=== PATIENT | female | born 1990 | race Hispanic/Latino ===

== ENCOUNTER 2018-01-12 11:50 | Emergency (ER) | payer SELFPAY ==
[2018-01-12] MEDS ORDERED: KETOROLAC 30 MG/ML INJ ONE (12:40)
[2018-01-12 13:09] LABS: Urine Bacteria 20-50 /HPF (<20); Urine Culture Reflex Order REFLEXED; Urine RBC <5 /HPF (NONE SEEN)
[2018-01-12 13:25] LABS: Urine Blood 2+ (NEG); Urine Glucose 2+ (NEG); Urine Protein 2+ (NEG); Urine pH 5.5 (5.0-7.0)
--- NOTE | 2018-01-12 14:33 | EDPHYS ---
Physician Documentation [facility] Name: Stacy Islas Age: 27 yrs Sex: Female : 1990 Arrival Date: 01/12/2018 Time: 11:52 Bed 20 Private MD: ED Physician Jerry Santos HPI: 01/12 14:29 This 27 yrs old Female presents to ER via Ambulatory with complaints of gs Abdominal Pain. 14:29 The patient presents with pelvic pain. Onset: The symptoms/episode began/occurred gs suddenly, today. Modifying factors: The symptoms are alleviated by nothing, the symptoms are aggravated by nothing. Associated signs and symptoms: Pertinent negatives: vaginal bleeding, vaginal discharge. Associated signs and symptoms: Pertinent negatives: constipation. Severity of symptoms: At their worst the symptoms were moderate, in the emergency department the symptoms are unchanged. The patient has not experienced similar symptoms in the past. 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 - Social history:: Smoking status: Patient/guardian denies using tobacco. - Ebola Screening: : No symptoms or risks identified at this time. ROS: 14:29 All other systems are negative. gs Exam: 14:29 Head/Face: Normocephalic, atraumatic. Eyes: Pupils equal round and reactive to light, gs extra-ocular motions intact. Lids and lashes normal. Conjunctiva and sclera are non-icteric and not injected. Cornea within normal limits. Periorbital areas with no swelling, redness, or edema. ENT: Nares patent. No nasal discharge, no septal abnormalities noted. Tympanic membranes are normal and external auditory canals are clear. Oropharynx with no redness, swelling, or masses, exudates, or evidence of obstruction, uvula midline. Mucous membranes moist. Neck: Trachea midline, no thyromegaly or masses palpated, and no cervical lymphadenopathy. Supple, full range of motion without nuchal rigidity, or vertebral point tenderness. No Meningismus. Chest/axilla: Normal chest wall appearance and motion. Nontender with no deformity. No lesions are appreciated. Cardiovascular: Regular rate and rhythm with a normal S1 and S2. No gallops, murmurs, or rubs. Normal PMI, no JVD. No pulse deficits. Respiratory: Lungs have equal breath sounds bilaterally, clear to auscultation and percussion. No rales, rhonchi or wheezes noted. No increased work of breathing, no retractions or nasal flaring. Back: No spinal tenderness. No costovertebral tenderness. Full range of motion. Skin: Warm, dry with normal turgor. Normal color with no rashes, no lesions, and no evidence of cellulitis. MS/ Extremity: Pulses equal, no cyanosis. Neurovascular intact. Full, normal range of motion. Neuro: Awake and alert, GCS 15, oriented to person, place, time, and situation. Cranial nerves II-XII grossly intact. Motor strength 5/5 in all extremities. Sensory grossly intact. Cerebellar exam normal. Normal gait. 14:29 Constitutional: The patient appears alert, awake. 14:29 Abdomen/GI: Palpation: mild abdominal tenderness, in the suprapubic area, right lower quadrant and left lower quadrant, rebound tenderness, is not appreciated. Vital Signs: 12:02 BP 118 / 70; Pulse 80; Resp 20; Temp 97.6; Pulse Ox 100% ; Weight 117.93 kg; Height 5 sv ft. 3 in. (160.02 cm); Pain 8/10; 14:01 BP 115 / 65; Pulse 79; Resp 16; Pulse Ox 100% ; bp 12:02 Body Mass Index 46.06 (117.93 kg, 160.02 cm) sv MDM: 12:22 Patient medically screened. gs 14:29 Differential diagnosis: urinary tract infection. Data reviewed: vital signs, nurses gs notes. Response to treatment: the patient's symptoms have markedly improved after treatment, and as a result, I will discharge patient. 01/12 12:25 Order name: Urine Microscopic Only; Complete Time: 13:28 gs 01/12 13:10 Order name: Urine Dipstick--Ancillary (enter results); Complete Time: 13:28 eb 01/12 13:10 Order name: Urine --Ancillary (enter results); Complete Time: 13:28 eb 01/12 13:11 Order name: Urine Culture EDND 01/12 14:35 Order name: Glucose, Ancillary Testing [facility] 01/12 12:25 Order name: Urine Test (obtain specimen); Complete Time: 12:42 01/12 12:25 Order name: Urine Dipstick-Ancillary (obtain specimen); Complete Time: 12:42 01/12 13:29 Order name: Finger Stick; Complete Time: 14:01 Administered Medications: 12:35 Drug: TORadol 30 mg Route: IM; Site: right vastus lateralis; bp 15:10 Follow up: Response: Pain is decreased bp Point of Care Testing: Blood Glucose: 14:01 Blood Glucose: 271 mg/dL; bp Ranges: Critical Glucose Levels:Adult <50 mg/dl or >400 mg/dl <40 mg/dl or >180 mg/dl Disposition: 01/12/18 14:32 Discharged to Home. Impression: Cystitis. - Condition is Stable. - Discharge Instructions: Urinary Tract Infection, Adult. - Prescriptions for Keflex 500 mg Oral Capsule - take 1 capsule by ORAL route every 12 hours for 10 days; 20 capsule. - Medication Reconciliation Form, Thank You Letter, Antibiotic Education, Prescription Opioid Use form. - Follow up: Private Physician; When: 2 - 3 days; Reason: Re-evaluation by your physician. Signatures: Dispatcher [employer] [facility] Radha Wagner RN RN Jerry Santos MD MD Dilan Abdullahi RN RN bp Corrections: (The following items were deleted from the chart) 15:13 14:32 01/12/2018 14:32 Discharged to Home. Impression: Cystitis. Condition is Stable. bp Forms are Medication Reconciliation Form, Thank You Letter, Antibiotic Education, Prescription Opioid Use. Follow up: Private Physician; When: 2 - 3 days; Reason: Re-evaluation by your physician.
--- NOTE | 2018-01-12 14:33 | ER ---
Nurse's Notes [facility] Name: Stacy Islas Age: 27 yrs Sex: Female : 1990 Arrival Date: 01/12/2018 Time: 11:52 Bed 20 Private MD: Diagnosis: Cystitis Presentation: 01/12 12:01 Presenting complaint: Patient states: lower abd pain started today, denies n/v/d. sv Transition of care: patient was not received from another setting of care. Onset of symptoms was January 12, 2018. Care prior to arrival: None. 12:01 Method Of Arrival: Ambulatory sv 12:01 Acuity: VENTURA 3 sv 15:12 Risk Assessment: Do you want to hurt yourself or someone else? Patient reports no bp desire to harm self or others. Initial Sepsis Screen: Does the patient meet any 2 criteria? No. Patient's initial sepsis screen is negative. Does the patient have a suspected source of infection? No. Patient's initial sepsis screen is negative. Triage Assessment: 12:02 General: Appears uncomfortable, obese, Behavior is calm, cooperative, appropriate for sv age. Pain: Complains of pain in suprapubic area, right lower quadrant and left lower quadrant Pain currently is 8 out of 10 on a pain scale. Pain began this morning. Neuro: Level of Consciousness is awake, alert, obeys commands, Oriented to person, place, time, situation, Moves all extremities. Full function Gait is steady. Respiratory: Respiratory effort is even, unlabored, Respiratory pattern is regular, symmetrical. GI: Reports lower abdominal pain, Patient currently denies diarrhea, nausea, vomiting. 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 - Social history:: Smoking status: Patient/guardian denies using tobacco. - Ebola Screening: : No symptoms or risks identified at this time. Screenin:08 Abuse screen: Denies threats or abuse. Denies injuries from another. Nutritional bp screening: No deficits noted. Tuberculosis screening: No symptoms or risk factors identified. Fall Risk None identified. Assessment: 12:07 General: SEE TRIAGE NOTE. bp 14:00 GI: Bowel sounds present X 4 quads. Abd is soft X 4 quads. bp 14:02 Reassessment: ALL CURRENT ORDERS COMPLETED, VS STABLE. DISPO PENDING. bp 15:11 Reassessment: PT D/C HOME AMBULATORY, DX WITH CYSTITIS. bp Vital Signs: 12:02 BP 118 / 70; Pulse 80; Resp 20; Temp 97.6; Pulse Ox 100% ; Weight 117.93 kg; Height 5 sv ft. 3 in. (160.02 cm); Pain 8/10; 14:01 BP 115 / 65; Pulse 79; Resp 16; Pulse Ox 100% ; bp 12:02 Body Mass Index 46.06 (117.93 kg, 160.02 cm) sv ED Course: 11:52 Patient arrived in ED. tw3 12:01 Triage completed. sv 12:02 Arm band placed on. sv 12:04 Jerry Santos MD is Attending Physician. 12:07 Dilan Abdullahi, RN is Primary Nurse. bp 12:08 Patient has correct armband on for positive identification. Bed in low position. Call bp light in reach. Side rails up X2. 14:01 Urine Culture Sent. bp 15:11 No provider procedures requiring assistance completed. Patient did not have IV access bp during this emergency room visit. Administered Medications: 12:35 Drug: TORadol 30 mg Route: IM; Site: right vastus lateralis; bp 15:10 Follow up: Response: Pain is decreased bp Point of Care Testing: Blood Glucose: 14:01 Blood Glucose: 271 mg/dL; bp Ranges: Outcome: 14:32 Discharge ordered by . gs 15:12 Discharged to home ambulatory. bp 15:12 Condition: stable 15:12 Discharge instructions given to patient, Instructed on discharge instructions, follow up and referral plans. medication usage, Demonstrated understanding of instructions, follow-up care, medications, Prescriptions given X 1. 15:13 Patient left the ED. bp Signatures: Radha Wagner, RN RN sv Jerome, Maxine tw3 Jerry Santos MD MD gs Peltier, Brian, RN RN bp
[2018-01-12 15:18] VITALS: TEMP 97.6; O2SAT 100
[2018-01-12 15:19] VITALS: BP 115/65
== END 2018-01-12 15:13 | disposition home or self-care (01) ==
LOC: ER 11:50
DX: N30.90 Cystitis, unspecified without hematuria (principal); E11.9 Type 2 diabetes mellitus without complications
CPT/HCPCS: 81003; 81015; 81025; 82962; 87077; 87086; 87088; 87186; 96372; 99283

== ENCOUNTER 2018-04-09 17:17 | Inpatient (IN) | payer SELFPAY ==
--- OUTSIDE RECORDS SUMMARY | 2018-04-09 17:19 | XMS REPORT ---
:1990 Author Organization [employer] Care Team Providers Name Role Phone Roche, Na Provider Role Unavailable Allergies, Adverse Reactions, Alerts Substance Reaction Event Type N.K.D.A. Info Not Available Non Drug Allergy Problems Problem Type Condition Code Onset Dates Condition Status Assessment Burn T30.0 Active Problem Hyperglycemia R73.9 Active Assessment Uncontrolled type 2 diabetes E11.65 Active mellitus without complication, without long-term current use of insulin Assessment Hyperlipidemia E78.5 Active Problem Morbid (severe) obesity due to E66.01 Active excess calories Problem Body mass index (BMI) of 40.0-44.9 Z68.41 Active in adult Problem Abnormal menstrual periods N92.6 Active Problem Hyperlipidemia E78.5 Active Problem Allergic rhinitis J30.9 Active Problem Uncontrolled type 2 diabetes E11.65 Active mellitus without complication, without long-term current use of insulin Problem Family planning education, guidance, Z30.09 Active and counseling Medications Medication Code Code Instructions Start End Status Dosage System Date Date Lancets Super NDC 0 n/s finger stick May one Thin once 2017 Lisinopril ND 69460187136 20 MG Orally Active 1 tablet Once a day [place] ND 29619429110 3-0.02 MG Orally Active 1 tablet Once a day Glucometer NDC 0 n/s n/s use as May Active one directed 2017 Alcohol Prep NDC 0 topical twice May Active as directed Pads daily 2017 Metformin HCl NDC 52236270198 500 MG Orally Active 1 tablet Twice a day with meals blood glucose NDC 0 n/s finger stick May Active one test strip once a day 2017 Results No Known Results Summary Purpose [employer] Submission
--- OUTSIDE RECORDS SUMMARY | 2018-04-09 17:19 | XMS REPORT ---
:1990 [facility] Address [address] [place] [address] Dr. Krishna [address] [place] [id number] Care Team Providers Name Role Phone Unavailable Unavailable Unavailable Problems This patient has no known problems. Allergies, Adverse Reactions, Alerts This patient has no known allergies or adverse reactions. Medications This patient has no known medications.
--- OUTSIDE RECORDS SUMMARY | 2018-04-09 17:19 | XMS REPORT ---
:1990 Author Organization [employer] Care Team Providers Name Role Phone Jake Romero Provider Role Unavailable Allergies No Known Allergies Problems Problem Type Condition Code Onset Dates Condition Status Problem Hyperglycemia R73.9 Active Problem Morbid (severe) obesity due to E66.01 Active excess calories Problem Body mass index (BMI) of 40.0-44.9 Z68.41 Active in adult Problem Abnormal menstrual periods N92.6 Active Problem Hyperlipidemia E78.5 Active Problem Allergic rhinitis J30.9 Active Problem Uncontrolled type 2 diabetes E11.65 Active mellitus without complication, without long-term current use of insulin Problem Family planning education, guidance, Z30.09 Active and counseling Medications No Known Medications Results No Known Results Summary Purpose [employer] Submission
--- OUTSIDE RECORDS SUMMARY | 2018-04-09 17:19 | XMS REPORT ---
:1990 Author Organization [employer] Care Team Providers Name Role Phone Roche, Na Provider Role Unavailable Allergies No Known Allergies [...] Medications Results No Known Results Summary Purpose [employer] Submission
[2018-04-09] MEDS ORDERED: NA CHLORIDE 0.9% 1,000 ML ONE (18:39)
[2018-04-09 19:09] LABS: Absolute Lymphocytes (CBC) 0.7 K/uL (0.7-4.9); Absolute Monocytes 0.6 K/uL (0.1-1.3); Absolute Neutrophil 15.6 K/uL (1.8-8.0); Basophils % 0.3 % (0-1.3); Hematocrit 36.4 % (36.0-45.0); Lymphocytes % 4.1 % (15.3-44.8); MPV 8.9 fL (7.6-11.3); Monocytes % 3.5 % (3.3-12.3); RBC Red Blood Cell Count 5.04 M/uL (3.86-4.86)
[2018-04-09 19:11] LABS: ALT/SGPT 23 U/L (12-78); AST/SGOT 16 U/L (15-37); Albumin 3.1 g/dL (3.4-5.0); Alkaline Phosphatase 131 U/L (45-117); BUN Blood Urea Nitrogen 6 mg/dL (7-18); Bicarbonate 24 mmol/L (21-32); Bilirubin Direct 0.3 mg/dL (0-0.2); Glucose Level 310 mg/dL (74-106); Lipase 73 U/L (73-393); Potassium 3.8 mmol/L (3.5-5.1); Protein, Total 8.5 g/dL (6.4-8.2); Sodium Level 135 mmol/L (136-145)
[2018-04-09 19:30] LABS: HCG, Quantitative < 1 mIU/mL (1-3)
--- NOTE | 2018-04-09 20:05 | RAD REPORT ---
EXAM DESCRIPTION: CTAbdomen Pelvis W Contrast - 04/09/2018 7:46 pm CLINICAL HISTORY: Abdominal pain. ABD PAIN COMPARISON: CT ABD PELVIS W CONTRAST dated 01/18/2009 TECHNIQUE: Biphasic CT imaging of the abdomen and pelvis was performed with 100 ml non-ionic IV cont rast. All CT scans are performed using dose optimization technique as appropriate and may include automated exposure control or mA/KV adjustment according to patient size. FINDINGS: The lung bases are clear. Mild fatty liver is present. The spleen, pancreas, adrenal glands and kidneys are within normal limit s. Moderate free fluid is seen in the abdomen and pelvis. Prominent bilateral cystic lesions are seen in volving both ovaries, on the left a 6.4 x 5.2 cm septated cystic lesion or 2 abutting cystic lesions is present. On the right a somewhat irregular irregularly-shaped cystic lesion is present measuring 4 .2 x 1.7 cm. The appendix appears prominent in size proximally measuring 10-11 mm. Free fluid is seen in the right lower quadrant, however a great deal of inflammatory findings typical of appendicitis a re not identified. No evidence of significant lymphadenopathy. No suspicious bony findings. IMPRESSION: Moderate free fluid is seen in the abdomen and pelvis with cystic bilateral ovarian lesi ons present. Recent right-sided ovarian cyst rupture is a possibility. The appendix is also prominent in size in the right lower quadrant measuring 10-11 mm. Acute appendic itis cannot be completely ruled out although this is considered less likely. Correlation with physica l exam findings and laboratory studies is recommended. If clinically needed, a follow-up CT study wit h IV and oral contrast could be performed.
[2018-04-09 21:31] LABS: Blood Morphology Comment NOTED (NOT SEEN); Platelet Estimate INCR; Urine White Blood Cell Casts OK
[2018-04-09] MEDS ORDERED: ONDANSETRON 4 MG/2 ML VIAL ONE (21:54)
[2018-04-09] MEDS ORDERED: MORPHINE 4 MG/ML SYR ONE (21:54)
[2018-04-09] MEDS ORDERED: MAGNE/ALUM HYDROXD 30 ML UCUP ONE (22:36)
[2018-04-09] MEDS ORDERED: LIDOCAINE VISCOUS 2% SOLN 15 ML UDC ONE (22:36)
--- NOTE | 2018-04-09 22:42 | EDPHYS ---
Physician Documentation [facility] Name: Stacy Islas Age: 27 yrs Sex: Female : 1990 Arrival Date: 04/09/2018 Time: 17:21 Bed 24 Private MD: None, None ED Physician Rashad Cabrera HPI: 04/09 20:58 This 27 yrs old Female presents to ER via Ambulatory with complaints of nh Abdominal Pain, Breathing Difficulty. 20:58 The patient presents with abdominal pain abdominal distention. nh 22:38 Onset: The symptoms/episode began/occurred this morning. The symptoms do not radiate. nh Associated signs and symptoms: Pertinent positives: nausea and vomiting. The symptoms are described as sharp. Modifying factors: The symptoms are alleviated by nothing, the symptoms are aggravated by nothing. Severity of pain: At its worst the pain was severe. The patient has not experienced similar symptoms in the past. The patient has not recently seen a physician. 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 - Social history:: Smoking status: Patient/guardian denies using tobacco, Patient/guardian denies using alcohol. - Ebola Screening: : Patient negative for fever greater than or equal to 101.5 degrees Fahrenheit, and additional compatible Ebola Virus Disease symptoms Patient denies exposure to infectious person Patient denies travel to an Ebola-affected area in the 21 days before illness onset. ROS: 22:38 Constitutional: Negative for fever, chills, and weight loss, Eyes: Negative for injury, nh pain, redness, and discharge, ENT: Negative for injury, pain, and discharge, Neck: Negative for injury, pain, and swelling, Cardiovascular: Negative for chest pain, palpitations, and edema, Respiratory: Negative for shortness of breath, cough, wheezing, and pleuritic chest pain, Back: Negative for injury and pain, : Negative for injury, bleeding, discharge, and swelling, MS/Extremity: Negative for injury and deformity, Skin: Negative for injury, rash, and discoloration, Neuro: Negative for headache, weakness, numbness, tingling, and seizure, Psych: Negative for depression, anxiety, suicide ideation, homicidal ideation, and hallucinations, Allergy/Immunology: Negative for hives, rash, and allergies, Endocrine: Negative for neck swelling, polydipsia, polyuria, polyphagia, and marked weight changes, Hematologic/Lymphatic: Negative for swollen nodes, abnormal bleeding, and unusual bruising. 22:38 Abdomen/GI: Positive for abdominal pain, nausea and vomiting. Exam: 22:38 Constitutional: This is a well developed, well nourished patient who is awake, alert, nh and in no acute distress. Head/Face: Normocephalic, atraumatic. Eyes: Pupils equal round and reactive to light, extra-ocular motions intact. Lids and lashes normal. Conjunctiva and sclera are non-icteric and not injected. Cornea within normal limits. Periorbital areas with no swelling, redness, or edema. ENT: Nares patent. No nasal discharge, no septal abnormalities noted. Tympanic membranes are normal and external auditory canals are clear. Oropharynx with no redness, swelling, or masses, exudates, or evidence of obstruction, uvula midline. Mucous membranes moist. Neck: Trachea midline, no thyromegaly or masses palpated, and no cervical lymphadenopathy. Supple, full range of motion without nuchal rigidity, or vertebral point tenderness. No Meningismus. Chest/axilla: Normal chest wall appearance and motion. Nontender with no deformity. No lesions are appreciated. Cardiovascular: Regular rate and rhythm with a normal S1 and S2. No gallops, murmurs, or rubs. Normal PMI, no JVD. No pulse deficits. Respiratory: Lungs have equal breath sounds bilaterally, clear to auscultation and percussion. No rales, rhonchi or wheezes noted. No increased work of breathing, no retractions or nasal flaring. Back: No spinal tenderness. No costovertebral tenderness. Full range of motion. Skin: Warm, dry with normal turgor. Normal color with no rashes, no lesions, and no evidence of cellulitis. MS/ Extremity: Pulses equal, no cyanosis. Neurovascular intact. Full, normal range of motion. Neuro: Awake and alert, GCS 15, oriented to person, place, time, and situation. Cranial nerves II-XII grossly intact. Motor strength 5/5 in all extremities. Sensory grossly intact. Cerebellar exam normal. Normal gait. Psych: Awake, alert, with orientation to person, place and time. Behavior, mood, and affect are within normal limits. 22:38 Abdomen/GI: Inspection: abdomen appears normal, Bowel sounds: normal, Palpation: moderate abdominal tenderness, in all quadrants. Vital Signs: 17:29 BP 110 / 67; Pulse 105; Resp 20; Temp 100.7(O); Pulse Ox 100% on R/A; Weight 106.59 kg; hj Height 5 ft. 3 in. (160.02 cm); Pain 10/10; 19:41 BP 106 / 86; Pulse 76; Resp 18; Pulse Ox 100% on R/A; tl3 21:03 BP 101 / 64; Pulse 103; Resp 18; Pulse Ox 99% on R/A; tl3 22:31 BP 101 / 66; Pulse 114; Resp 18; Pulse Ox 100% on R/A; tl3 23:55 BP 114 / 61; Pulse 103; Resp 18; Temp 97.7(O); Pulse Ox 100% on R/A; Pain 2/10; mg2 17:29 Body Mass Index 41.63 (106.59 kg, 160.02 cm) hj MDM: 17:35 Patient medically screened. pr 22:38 Data reviewed: vital signs, nurses notes, lab test result(s), radiologic studies, I nh have discussed the patient's presentation/case with the attending Emergency Department Physician; and as a result, I will admit patient. Counseling: I had a detailed discussion with the patient and/or guardian regarding: the historical points, exam findings, and any diagnostic results supporting the discharge/admit diagnosis, lab results, radiology results, the need for further work-up and treatment in the hospital. Physician consultation: Osmany Dawson MD was called at 22:40, was contacted at 22:40, regarding admission, and will see patient. 04/09 17:45 Order name: Basic Metabolic Panel; Complete Time: 19:33 pr 04/09 17:45 Order name: CBC with Diff; Complete Time: 22:30 pr 04/09 17:45 Order name: Creatinine for Radiology; Complete Time: 19:33 pr 04/09 17:45 Order name: Hepatic Function; Complete Time: 19:33 pr 04/09 17:45 Order name: Lipase; Complete Time: 19:33 pr 04/09 17:45 Order name: HCG-Quantitative; Complete Time: 19:33 pr 04/09 17:45 Order name: CT Abd/Pelvis - W/Contrast; Complete Time: 20:25 pr 04/09 20:38 Order name: US Transvaginal Study (Probe) pr 04/09 21:31 Order name: CBC Smear Scan; Complete Time: 22:30 EDGA 04/09 23:00 Order name: Chest Pa And Lat (2 Views) XRAY pr 04/09 23:29 Order name: CBC with Automated Diff EDMS 04/09 23:30 Order name: CBC with Automated Diff EDMS 04/09 23:30 Order name: Comprehensive Metabolic Panel EDGA 04/09 23:30 Order name: Comprehensive Metabolic Panel EDGA 04/09 17:45 Order name: IV Saline Lock; Complete Time: 19:09 pr 04/09 17:45 Order name: Labs collected and sent; Complete Time: 19:09 pr 04/09 23:29 Order name: CONS Pharmacy Consult EDGA 04/09 23:29 Order name: NPO EDMS Administered Medications: 18:42 Drug: NS 0.9% 1000 ml Route: IV; Rate: 1 bolus; Site: right antecubital; Delivery: tl3 Primary tubing; 18:50 Follow up: IV Status: Completed infusion; IV Intake: 1000ml tl3 21:47 Drug: morphine 4 mg Route: IVP; Infused Over: 2 mins; Site: right antecubital; tl3 22:30 Follow up: Response: No change in condition tl3 21:47 Drug: Zofran 4 mg Route: IVP; Infused Over: 2 mins; Site: right antecubital; tl3 22:29 Follow up: Response: No adverse reaction tl3 22:30 Drug: GI Cocktail without - (Maalox Suspension 30 ml, Lidocaine Liquid 2 % 15 tl3 ml) Route: PO; 04/10 00:20 Follow up: Response: No adverse reaction; Marked relief of symptoms [facility] 04/09 23:06 Drug: LevaQUIN 750 mg Volume: 150 ml; Route: IVPB; Infused Over: 90 mins; Site: right tl3 antecubital; Delivery: Primary tubing; 04/10 00:20 Follow up: Response: No adverse reaction; IV Status: Infusion continued upon admission mg2 04/09 23:06 Drug: Flagyl 500 mg Volume: 100 ml; Route: IVPB; Rate: 200 ml/hr; Infused Over: 30 tl3 mins; Site: right antecubital; 04/10 00:20 Follow up: Response: No adverse reaction; IV Status: Completed infusion mg2 00:15 Drug: Insulin Regular Human 10 units {Co-Signature: jd3 (Dillon Wright RN).} Route: mg2 Sub-Q; Site: right upper arm; 00:19 Follow up: Response: No adverse reaction; patient admitted to the floor mg2 Point of Care Testing: Blood Glucose: 00:10 Blood Glucose: 355 mg/dL; jp3 Ranges: Critical Glucose Levels:Adult <50 mg/dl or >400 mg/dl <40 mg/dl or >180 mg/dl Disposition: 04/09/18 22:41 Hospitalization ordered by Osmany Dawson for Observation. Preliminary diagnosis are Abdominal and pelvic pain, Diabetes mellitus due to underlying condition. - Bed requested for Telemetry/MedSurg (observation). - Status is Observation. mg2 - Condition is Stable. - Problem is new. - Symptoms are unchanged. UTI on Admission? No Addendum: 04/14/2018 11:29 Co-signature as Attending Physician, Rashad Cabrera MD I agree with the assessment and k dr plan of care. Signatures: Dispatcher [employer] EDGA Eloisa Florez RN RN Rashad Cabrera MD MD [facility] Ynes Kendrick, FRYER OPERATOR FRYER OPERATOR pr Alexander Barrera RN RN Shannan Archibald RN RN tl3 David Ruiz RN RN mg2 Dillon Wright RN jd3 Corrections: (The following items were deleted from the chart) 04/09 23:38 22:41 Hospitalization Ordered by Osmany Dawson MD for Observation. Preliminary mw diagnosis is Abdominal and pelvic pain; Diabetes mellitus due to underlying condition. Bed requested for Telemetry/MedSurg (observation). Status is Observation. Condition is Stable. Problem is new. Symptoms are unchanged. UTI on Admission? No. pr 04/10 00:22 04/09 23:38 04/09/2018 22:41 Hospitalization Ordered by Osmany Dawson MD for mg2 Observation. Preliminary diagnosis is Abdominal and pelvic pain; Diabetes mellitus due to underlying condition. Bed requested for Telemetry/MedSurg (observation). Status is Observation. Condition is Stable. Problem is new. Symptoms are unchanged. UTI on Admission? No. mw
--- NOTE | 2018-04-09 22:42 | ER ---
Nurse's Notes [facility] Name: Stacy Islas Age: 27 yrs Sex: Female : 1990 Arrival Date: 04/09/2018 Time: 17:21 Bed 24 Private MD: None, None Diagnosis: Abdominal and pelvic pain;Diabetes mellitus due to underlying condition Presentation: 04/09 17:26 Presenting complaint: Patient states: i have a lot of abd pain that started today; hj reports constipation; last BM 3 days ago; reports nausea and vomiting; reports chills;. Transition of care: patient was not received from another setting of care. Onset of symptoms was April 09, 2018. Risk Assessment: Do you want to hurt yourself or someone else? Patient reports no desire to harm self or others. Initial Sepsis Screen: Does the patient meet any 2 criteria? No. Patient's initial sepsis screen is negative. Does the patient have a suspected source of infection? No. Patient's initial sepsis screen is negative. Care prior to arrival: None. 17:26 Method Of Arrival: Ambulatory 17:26 Acuity: VENTURA 3 Triage Assessment: 17:28 General: Appears in no apparent distress. uncomfortable, Behavior is calm, cooperative, hj appropriate for age. Pain: Complains of pain in abdomen. GI: Reports constipation, nausea, vomiting. 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 - Social history:: Smoking status: Patient/guardian denies using tobacco, Patient/guardian denies using alcohol. - Ebola Screening: : Patient negative for fever greater than or equal to 101.5 degrees Fahrenheit, and additional compatible Ebola Virus Disease symptoms Patient denies exposure to infectious person Patient denies travel to an Ebola-affected area in the 21 days before illness onset. Screenin:28 Abuse screen: Denies threats or abuse. Denies injuries from another. Nutritional hj screening: No deficits noted. Tuberculosis screening: No symptoms or risk factors identified. Fall Risk None identified. Assessment: 17:29 GI: Bowel sounds hj 18:40 General: Appears distressed, uncomfortable, well groomed, well developed, well tl3 nourished, Behavior is calm, cooperative, appropriate for age. Pain: Complains of pain in abdomen. Neuro: Level of Consciousness is awake, alert, obeys commands, Oriented to person, place, time, situation, Appropriate for age. Cardiovascular: Patient's skin is warm and dry. Respiratory: Airway is patent Respiratory effort is even, unlabored, Respiratory pattern is regular, symmetrical. Respiratory: Reports cough that is dry, hacking. : No deficits noted. EENT: Reports nasal congestion. Derm: No signs and/or symptoms reported regarding the dermatologic system. Musculoskeletal: No signs and/or symptoms reported regarding the musculoskeletal system. 19:41 Reassessment: No changes from previously documented assessment. Patient and/or family tl3 updated on plan of care and expected duration. Pain level reassessed. Patient is alert, oriented x 3, equal unlabored respirations, skin warm/dry/pink. pt transported to CT. 21:03 Reassessment: ultrasound at bedside. tl3 21:03 Reassessment: Patient appears in no apparent distress at this time. No changes from tl3 previously documented assessment. Patient and/or family updated on plan of care and expected duration. Pain level reassessed. Patient is alert, oriented x 3, equal unlabored respirations, skin warm/dry/pink. 22:31 Reassessment: Patient appears in no apparent distress at this time. No changes from tl3 previously documented assessment. Patient and/or family updated on plan of care and expected duration. Pain level reassessed. Patient is alert, oriented x 3, equal unlabored respirations, skin warm/dry/pink. 23:19 Reassessment: No changes from previously documented assessment. Patient and/or family tl3 updated on plan of care and expected duration. Pain level reassessed. Patient is alert, oriented x 3, equal unlabored respirations, skin warm/dry/pink. pt to xray due to complaints of pain with deep breathing. Vital Signs: 17:29 BP 110 / 67; Pulse 105; Resp 20; Temp 100.7(O); Pulse Ox 100% on R/A; Weight 106.59 kg; hj Height 5 ft. 3 in. (160.02 cm); Pain 10/10; 19:41 BP 106 / 86; Pulse 76; Resp 18; Pulse Ox 100% on R/A; tl3 21:03 BP 101 / 64; Pulse 103; Resp 18; Pulse Ox 99% on R/A; tl3 22:31 BP 101 / 66; Pulse 114; Resp 18; Pulse Ox 100% on R/A; tl3 23:55 BP 114 / 61; Pulse 103; Resp 18; Temp 97.7(O); Pulse Ox 100% on R/A; Pain 2/10; mg2 17:29 Body Mass Index 41.63 (106.59 kg, 160.02 cm) hj ED Course: 17:21 Patient arrived in ED. mr 17:22 None, None is Private Physician. mr 17:27 Triage completed. hj 17:29 Arm band placed on right wrist. hj 17:29 Patient has correct armband on for positive identification. Placed in gown. Bed in low hj position. Call light in reach. Side rails up X 1. Adult w/ patient. 17:35 Ynes Kendrick FNP is PHCP. nh 17:35 Rashad Cabrera MD is Attending Physician. nh 17:46 Shannan Archibald, JEFF is Primary Nurse. tl3 18:40 No provider procedures requiring assistance completed. Initial lab(s) drawn, by nv, tl3 sent to lab. Inserted saline lock: 20 gauge in right antecubital area, using aseptic technique. Blood collected. 18:57 Radiology exam delayed due to lab results not completed at this time. (BUN/Creatinine) nj test not completed at this time. 19:[address] via wheelchair. nj 19:46 CT completed. Patient tolerated procedure well. Patient moved back from CT. nj 19:47 CT Abd/Pelvis - W/Contrast In Process Unspecified. EDMS 21:08 US Transvaginal Study (Probe) In Process Unspecified. EDMS 21:11 Ultrasound completed. Patient tolerated well. aa4 22:41 Osmany Dawson MD is Hospitalizing Provider. nh 23:17 Chest Pa And Lat (2 Views) XRAY In Process Unspecified. EDMS 23:19 Patient admitted, IV remains in place. tl3 Administered Medications: 18:42 Drug: NS 0.9% 1000 ml Route: IV; Rate: 1 bolus; Site: right antecubital; Delivery: tl3 Primary tubing; 18:50 Follow up: IV Status: Completed infusion; IV Intake: 1000ml tl3 21:47 Drug: morphine 4 mg Route: IVP; Infused Over: 2 mins; Site: right antecubital; tl3 22:30 Follow up: Response: No change in condition tl3 21:47 Drug: Zofran 4 mg Route: IVP; Infused Over: 2 mins; Site: right antecubital; tl3 22:29 Follow up: Response: No adverse reaction tl3 22:30 Drug: GI Cocktail without - (Maalox Suspension 30 ml, Lidocaine Liquid 2 % 15 tl3 ml) Route: PO; 04/10 00:20 Follow up: Response: No adverse reaction; Marked relief of symptoms [facility] 04/09 23:06 Drug: LevaQUIN 750 mg Volume: 150 ml; Route: IVPB; Infused Over: 90 mins; Site: right tl3 antecubital; Delivery: Primary tubing; 04/10 00:20 Follow up: Response: No adverse reaction; IV Status: Infusion continued upon admission [facility] 04/09 23:06 Drug: Flagyl 500 mg Volume: 100 ml; Route: IVPB; Rate: 200 ml/hr; Infused Over: 30 tl3 mins; Site: right antecubital; 04/10 00:20 Follow up: Response: No adverse reaction; IV Status: Completed infusion mg2 00:15 Drug: Insulin Regular Human 10 units {Co-Signature: jd3 (Dillon Wright RN).} Route: mg2 Sub-Q; Site: right upper arm; 00:19 Follow up: Response: No adverse reaction; patient admitted to the floor mg2 Point of Care Testing: Blood Glucose: 00:10 Blood Glucose: 355 mg/dL; jp3 Ranges: Intake: 04/09 18:50 IV: 1000ml; Total: 1000ml. tl3 Outcome: 22:41 Decision to Hospitalize by Provider. nc 04/10 00:21 Admitted to Tele accompanied by nurse, via wheelchair, room 429, with chart, Report mg2 called to JEFF Melgar Condition: stable Instructed on the need for admit, Demonstrated understanding of instructions. 00:22 Patient left the ED. mg2 Signatures: Dispatcher [employer] EDYnes Vee, PLANNER/SCHEDULER PLANNER/SCHEDULER nc Briana Ag Amanda aa4 Alexander Barrera RN RN Noah Sky Tammy, RN RN tl3 David Ruiz RN RN [facility] Dash Brambila jp3 Dillon Wright RN jd3 Corrections: (The following items were deleted from the chart) 04/09 17:28 17:26 Presenting complaint: Patient states: i have a lot of abd pain that started hj today; reports constipation; reports nausea and vomiting; reports chills; hj 17:31 17:29 Pulse 105bpm; Resp 20bpm; Pulse Ox 100% RA; Temp 100.7F Oral; 106.59 kg; Height 5 hj ft. 3 in.; BMI: 41.6; Pain 11/18; hj
[2018-04-09] MEDS ORDERED: Levofloxacin 750mg IV 750 MG/150 ML BAG IV ONE (23:01)
[2018-04-09] MEDS ORDERED: METRONIDAZOLE 500mg IVPB 500 MG/100 ML BAG IV ONE (23:01)
[2018-04-09] MEDS ORDERED: ONDANSETRON 4 MG/2 ML VIAL IV PRN (23:28)
[2018-04-09] MEDS ORDERED: MORPHINE 4 MG/ML SYR IV PRN (23:28)
[2018-04-09] MEDS ORDERED: ACETAMINOPHEN 500 MG TAB PO PRN (23:28)
[2018-04-10] MEDS ORDERED: INSULIN -REGULAR HUMAN 50 UNIT/0.5 ML ML ONE (00:21)
[2018-04-10] MEDS: NA CHLORIDE 0.9% 1,000 ML IV SCH ×2 (00:56→09:45)
[2018-04-10] MEDS: HYDROCODONE/APAP 10/325 TAB PO PRN ×2 (00:57→06:25)
--- NOTE | 2018-04-10 01:48 | CON ---
Date of Consultation: 04/09/2018 Time Seen: At 11:41 p.m. Reason For Consultation: Abdominal pain. Brief History Of Present Illness: The patient is a 27-year-old female, who presents with ap proximately a 1-day history of generalized abdominal pain and tenderness in the right lower quadrant and lower pelvic area. She states the pain began earlier today. She thought it was related to const ipation. She has a history of having multiple times. Usually, the pain is generalized and does not localize. She has felt like there was more localization to the right lower quadrant this time than n ormal, although it continues to be generalized and as such, she came to the emergency room with the a polo-stated complaints. She has had no fever, no chills, no aggravating or alleviating factors, no f ever or subjective chills, no sick contacts, no recent travel. She had bowel function at this time. She does have a history of difficult menstrual periods. She is due to start her menstrual period an y time now and has pain with menstruation normally and has heavy bleeding. She is in significant harpreet n. Past Medical History: Significant for diabetes. Past Surgical History: She has had an abscess of the right breast drained and she has had multiple C -sections. Otherwise, no other surgeries. Allergies: NO KNOWN DRUG ALLERGIES. Home Medications: Metformin. Social History: Denies smoking. Drinks alcohol socially. Denies any recreational drug use in over 1 year. Review of Systems: A 10-point review of systems, other than HPI, denies. Family History: Reviewed and noncontributory. LMP 04/06/2018. Physical Examination: General: At the time of my examination, she is awake, alert, oriented. Psychiatric: Appropriate. Conversive. HEENT: Normocephalic. Sclerae anicteric. Mucous membranes moist. Oropharynx clear. Neck: Supple. No JVD. Chest: Diminished excursion. Cardiovascular: Regular rate and rhythm. Pulmonary: Clear to auscultation bilaterally. Abdomen: Soft. Global tenderness to palpation, most pronounced at the epigastric region. No reboun d. No guarding. No peritonitis. No focality. Negative Rizo sign. Negative Meeks Spencer and Cull en signs. Negative Rovsing's. No psoas sign. Extremities: No clubbing, cyanosis, edema. Skin: Warm and dry. Laboratory Data: Reveals white count of 16.9, hemoglobin 11.3 over hematocrit of 36.4, platelet coun t is 401, neutrophils 92%. Chemistry shows a sodium of 135, potassium 3.8, chloride 103, carbon diox karely 24, BUN 6, creatinine 0.7, glucose is 310, calcium 8.8. Total bilirubin 1.0, direct component 0. 3, AST 16, ALT 23, alkaline phosphatase 131. Lipase 73. Beta-HCG less than 0.1. CT scan of the abdomen and pelvis confirmed, official reading is consistent with moderate free fluid seen in the abdomen and pelvis with cystic bilateral ovarian lesions present. Recent right-sided ova lisa cyst rupture is a possibility. Appendix also prominent size with right lower quadrant measuring 10 to 11 mm. Acute appendicitis cannot be completely ruled out, although this is considered less li sonia. Correlation with physical exam and laboratory studies were recommended if clinical need. Foll owup CT with IV and oral contrast should be performed. Assessment And Plan: This is a 27-year-old female who presents with signs and symptoms of abdominal pain, likely ovarian cyst rupture; however, appendicitis cannot be ruled out. 1.IV fluid hydration. 2.Antibiotic coverage with Levaquin and Flagyl. 3.Serial abdominal exams. 4.I have explained risks, benefits, and alternatives of laparoscopic, possible open appendectomy inc luding, but not limited to, bleeding, infection, damage to surrounding tissues, need for further oper ating procedures. We will proceed tomorrow based on physical exam. We will hold off on surgery at t his time to see if antibiotic treatment will be effective. If not, we will prepared for surgery in t he morning. I have explained risks, benefits, and alternatives as described above. Thank you for this consult. SERJIO/WIL Voice ID: [id number] Report ID: [id number]
[2018-04-10 05:09] LABS: Urine Appearance CLEAR; Urine Bilirubin NEGATIVE (NEG); Urine Blood NEGATIVE (NEG); Urine Color YELLOW; Urine Glucose 3+ (NEG); Urine Protein NEGATIVE (NEG); Urine Specific Gravity >=1.030 (1.005-1.030); Urine pH 5.5 (5.0-7.0)
[2018-04-10 05:19] LABS: Absolute Lymphocytes (CBC) 1.1 K/uL (0.7-4.9); Absolute Neutrophil 19.1 K/uL (1.8-8.0); Basophils % 0.3 % (0-1.3); Eosinophils % 0.1 % (0-4.4); Lymphocytes % 5.2 % (15.3-44.8); MPV 8.7 fL (7.6-11.3); Monocytes % 4.7 % (3.3-12.3); RBC Red Blood Cell Count 4.62 M/uL (3.86-4.86)
[2018-04-10 05:30] LABS: Urine Microscopic Reflex NO UMIC
[2018-04-10 05:40] LABS: ALT/SGPT 19 U/L (12-78); AST/SGOT 6 U/L (15-37); Albumin 2.5 g/dL (3.4-5.0); Alkaline Phosphatase 112 U/L (45-117); BUN Blood Urea Nitrogen 5 mg/dL (7-18); Bicarbonate 25 mmol/L (21-32); Bilirubin Total 1.2 mg/dL (0.2-1.0); Glucose Level 293 mg/dL (74-106); Potassium 3.6 mmol/L (3.5-5.1); Protein, Total 7.2 g/dL (6.4-8.2); Sodium Level 137 mmol/L (136-145)
[2018-04-10 06:44] VITALS: BMI 41.6
[2018-04-10] MEDS ORDERED: HYDROMORPHONE HCL 1 MG/ML INJ IV ONE (07:54)
--- NOTE | 2018-04-10 07:55 | RAD REPORT ---
EXAM DESCRIPTION: US - Transvaginal Study Probe - 04/09/2018 9:08 pm CLINICAL HISTORY: Pelvic pain COMPARISON: April 09 CAT scan FINDINGS: The uterus measures 8 x 4 x 5cm. A fibroid is not seen. The endometrial stripe measures 9 millimeters. The right ovary measures 5 x 4.5 x 4.4 centimeters. It contains a 2.5 centimeter cyst. Blood flow is present. The left ovary measures 7.6 x 5.6 x 4.8 centimeters. It contains a 5.2 centimeter cyst. It contains a n additional 3.8 centimeter hemorrhagic cyst. Blood flow is seen. Evaluation of the adnexal unremarkable. Small amount of free fluid IMPRESSION: Enlarged ovaries. 5.2 centimeter left ovarian cyst. 3.8 centimeter left ovarian hemorrhagic cyst 2.5 centimeter right ovarian cyst Follow-up ultrasound in couple months is recommended to assess stability/resolution of the ovarian cy sts
[2018-04-10] MEDS ORDERED: INFLUENZA VACCINE (for 3y+) 0.5 ML DOSE IMVAC ONE (08:00)
[2018-04-10 08:21] LABS: Platelet Estimate ADEQ
[2018-04-10 08:22] LABS: Blood Morphology Comment NOTED (NOT SEEN)
--- NOTE | 2018-04-10 08:40 | RAD REPORT ---
EXAM DESCRIPTION: Gustavo Rodriguez (2 Views)04/09/2018 11:18 pm CLINICAL HISTORY: Chest pain COMPARISON: 2009 FINDINGS: The lungs appear clear of acute infiltrate. The heart is normal size IMPRESSION: No acute abnormalities displayed
--- NOTE | 2018-04-10 08:42 | P.HP ---
Certification for Inpatient Patient admitted to: Inpatient With expected LOS: >2 Midnights Patient will require the following post-hospital care: None Practitioner: I am a practitioner with admitting privileges, knowledge of patient current condition, hospital course, and medical plan of care. Services: Services provided to patient in accordance with Admission requirements found in Title 42 Section 412.3 of the Code of Federal Regulations Patient History Date of Service: 04/09/18 Reason for admission: Abdominal pain History of Present Illness: Patient is a 27-year-old female who developed significant abdominal pain yesterday. She had difficulty on taking a deep breath. Whenever she took a deep breath she has significant pain. She came into the ER and her workup revealed that she had some free fluid in her abdomen. This was possibly from an ovarian cyst rupture. However there was also concern for acute appendicitis. She also had significant leukocytosis. She also has peritoneal signs. She will need to be monitored closely, and we will start her on IV antibiotics with General surgery consultation. She may also need have OB consultation but will minimally need follow-up in outpatient with Ob because of the ovarian cyst. Allergies No Known Allergies Allergy (Verified 04/10/18 01:17) Home Medications: Metformin HCl [Glucophage*] 500 mg PO QID 04/10/18 - Past Medical/Surgical History Has patient received pneumonia vaccine in the past: No Diabetic: Yes -: Type 2 diabetes -: Morbid obesity -: History of ovarian cyst -: Removal of cyst from rt. breast. -: c. section x 2 - Family History Father History Unknown: Yes Medical History: Diabetes - Social History Smoking Status: Never smoker Alcohol use: Yes Place of Residence: Home Review of Systems 10-point ROS is otherwise unremarkable Physical Examination - Vital Signs Temperature: 98 F Blood Pressure: 117/56 Pulse: 105 Respirations: 18 Pulse Ox (%): 95 - Physical Exam General: Alert, In no apparent distress, Oriented x3 HEENT: Atraumatic, PERRLA, Mucous membr. moist/pink, EOMI, Sclerae nonicteric Neck: Supple, 2+ carotid pulse no bruit, No LAD, Without JVD or thyroid abnormality Respiratory: Clear to auscultation bilaterally, Normal air movement Cardiovascular: Regular rate/rhythm, Normal S1 S2, No murmurs Gastrointestinal: Normal bowel sounds, Soft and benign, Non-distended, Other ( Peritoneal signs), Tenderness, Rebound, Guarding Musculoskeletal: No clubbing, No swelling, No tenderness Integumentary: No rashes Neurological: Normal gait, Normal speech, Normal strength at 5/5 x4 extr, Normal tone, Sensation intact, Cranial nerves 3-12 intact, Normal affect Lymphatics: No axilla or inguinal lymphadenopathy - Studies Laboratory Data (last 24 hrs) 04/09/18 18:30: Creatinine 0.79 04/09/18 18:30: WBC 16.9 H, Hgb 11.3 L, Hct 36.4, Plt Count 401 04/09/18 18:30: Sodium 135 L, Potassium 3.8, BUN 6 L, Creatinine 0.78, Glucose 310 H, Total Bilirubin 1.0, AST 16, ALT 23, Alkaline Phosphatase 131 H, Lipase 73 Assessment & Plan - Problems (Diagnosis) (1) Abdominal pain Current Visit: Yes Status: Acute (2) Ovarian cyst rupture Current Visit: Yes Status: Acute (3) Appendicitis Current Visit: Yes Status: Acute (4) Leukocytosis Current Visit: Yes Status: Acute (5) Peritonitis Current Visit: Yes Status: Acute - Plan 1. Continue with IV hydration 2. Continue with IV antibiotics 3. Continue with pain control 4. NPO 5. OB & general surgery consultation; 6. Serial H&H, and we will monitor CBC, BMP, LFTs and lipase along with electrolytes. 7. Strict blood sugar control 8. GI and DVT prophylaxis Discharge Plan: Home Plan to discharge in: Greater than 2 days - Advance Directives Does patient have a Living Will: No Does patient have a Durable POA for Healthcare: No - Code Status/Comfort Care Code Status Assessed: Yes Code Status: Full Code Critical Care: No Time Spent Managing PTS Care (In Minutes): 45
[2018-04-10] MEDS: PRENATAL VITAMIN PO SCH (09:00)
[2018-04-10] MEDS ORDERED: METRONIDAZOLE 500mg IVPB 500 MG/100 ML BAG IV SCH (09:00)
--- NOTE | 2018-04-10 09:58 | P.PN ---
Subjective Date of Service: 04/10/18 Chief Complaint: Abdominal pain Subjective: Worsening (Patient has some worsening abdominal pain globally.) Physical Examination - Vital Signs Temperature: 98 F Blood Pressure: 117/56 Pulse: 105 Respirations: 18 Pulse Ox (%): 95 - Physical Exam General: Alert, In no apparent distress, Cooperative Gastrointestinal: Other (soft, obese, mild global TTP, worse in epigastrium and RLQ. ) - Studies Laboratory Data (last 24 hrs) 04/09/18 18:30: Creatinine 0.79 04/09/18 18:30: WBC 16.9 H, Hgb 11.3 L, Hct 36.4, Plt Count 401 04/09/18 18:30: Sodium 135 L, Potassium 3.8, BUN 6 L, Creatinine 0.78, Glucose 310 H, Total Bilirubin 1.0, AST 16, ALT 23, Alkaline Phosphatase 131 H, Lipase 73 Assessment And Plan - Current Problems (Diagnosis) (1) Abdominal pain Current Visit: Yes Status: Acute Plan: - I have reviewed operative intervention from last evening, and will now proceed with exploratory laparoscopy and appendectomy and indicated procedures. - I have spoken with Dr. Leiva ([employer]PER[employer]) who will consult on patient - continue NPO
[2018-04-10] MEDS ORDERED: NA CHLORIDE 0.9% 1,000 ML ONE ×2 (10:15→12:34)
[2018-04-10] MEDS ORDERED: BUPIVACA 0.5%/EPI 0.0005%/PF 30 ML VIAL ONE (10:42)
[2018-04-10] MEDS ORDERED: PROPOFOL 200 MG/20 ML VIAL IV ONE (10:44)
[2018-04-10] MEDS ORDERED: GLYCOPYRROLATE 0.2 MG/ML SYR ONE (10:44)
[2018-04-10] MEDS ORDERED: ONDANSETRON 4 MG/2 ML VIAL ONE (10:44)
[2018-04-10] MEDS ORDERED: MIDAZOLAM HCL 2 MG/2 ML INJ ONE (10:44)
[2018-04-10] MEDS ORDERED: FENTANYL CITR 100 MCG/2 ML ONE (10:44)
[2018-04-10] MEDS ORDERED: LIDOCAINE 1% MPF 5 ML VIAL ONE (10:45)
[2018-04-10] MEDS ORDERED: NEOSTIGMINE 1 MG/ML -10 ML VIAL ONE (10:45)
[2018-04-10] MEDS ORDERED: ROCURONIUM 50 MG/5 ML VIAL IV ONE (10:46)
[2018-04-10] MEDS ORDERED: KETOROLAC 30 MG/ML INJ ONE (11:04)
[2018-04-10] MEDS ORDERED: MORPHINE 10 MG/ML VIAL ONE (11:58)
--- NOTE | 2018-04-10 12:11 | P.OP ---
Preoperative diagnosis: Pelvic Infection Postoperative diagnosis: Severe PID with Bilateral Tubuovarian complexes Primary procedure: Exploratory Laparoscopy Secondary procedure: Laparascopic Appendectomy Other procedure(s): Laparoscopic Adhesiolysis Anesthesia: GETA + Local Estimated blood loss: <10cc Specimen: Vermiform Appendix, Pelvic Washings Findings: Severe PID with Bilateral Tubuovarian complexes, normal appendix Complications: None Transferred to: Recovery Room Condition: Good
--- NOTE | 2018-04-10 12:37 | CON ---
This is a 27-year-old female, seen in the emergency room. Dr. Cirilo Valdes was called in for surgical consult for possible ruptured appendix. I in turn was asked to be present at the time of laparoscopic appendectomy for OB- Photographer Apprentice consultation. I have had no contact with the patient prior to this time. After adequate general anesthesia was performed, Dr. Valdes introduced the laparoscopic instrument. There was purulent matter throughout the pelvis and upper abdomen. He removed the appendix, although he said that the appendix did not look that bad. On further examination, it was apparent that the patient had severe pelvic inflammatory disease with bilateral tubal abscesses. The ovaries were actually never visualized adequately, even though he made several attempts- over an hour or more of surgery. The liver edge and liver itself were free of violin string adhesions. After irrigating with the approximately 5 -6 L of normal saline, the procedures were discontinued. We will place the patient on triple antibiotics, and if she does not improve in the next 24-48 hours, we will probably send her to a high risk center for possible surgical intervention. However, I think that she has a good chance that she can respond to the antibiotics. Diagnoses: Severe pelvic inflammatory disease with bilateral tuboovarian abscesses, incidental appendectomy, thorough irrigation and lysis of adhesions. DEVANTE/WIL Voice ID: [id number] Report ID: [id number] DAVINA
--- NOTE | 2018-04-10 12:43 | PN ---
Consultation with family members in the waiting area, I have told them the diagnosis of significant P ID, incidental appendectomy. I have told them that she was going to be placed on 3 separate antibiot ics. If she improved over the next 24-48 hours, we will keep her here. If she did not improve, we w ill probably send her to [facility] as they would then have to consider surgical intervention again, and po ssibly hysterectomy. Full discussion with family members. DEVANTE/WIL Voice ID: [id number] Report ID: [id number]
[2018-04-10] MEDS ORDERED: ZOLPIDEM TARTRATE 10 MG TABLET PO PRN (12:46)
[2018-04-10] MEDS ORDERED: CEFTRIAXONE/SWI 1gm 1 GM/10 ML SYR IV SCH (13:00)
[2018-04-10] MEDS ORDERED: PROMETHAZINE 25 MG/ML VIAL IM PRN (13:08)
[2018-04-10] MEDS: CEFTRIAXONE/SWI 1gm 1 GM/10 ML SYR IV SCH ×2 (13:10→21:49)
[2018-04-10] MEDS ORDERED: MORPHINE 4 MG/ML SYR IV PRN (13:15)
[2018-04-10] MEDS ORDERED: KETOROLAC 30 MG/ML INJ IV PRN (13:16)
[2018-04-10] MEDS: Ringers Lactate 1,000 ML IV SCH ×2 (14:43→21:49)
[2018-04-10] MEDS: METRONIDAZOLE 500mg IVPB 500 MG/100 ML BAG IV SCH ×2 (14:43→21:49)
[2018-04-10] MEDS: PROMETHAZINE 25 MG/ML VIAL IV PRN (14:44)
[2018-04-10] MEDS ORDERED: D50W 25 GM/50 ML SYRINGE IV PRN (16:40)
[2018-04-10] MEDS ORDERED: GLUCAGON 1 MG/VIAL IM PRN (16:40)
[2018-04-10] MEDS: CLINDAMYCIN INJ 900 MG in NA CHLORIDE 0.9% 50 ML IV SCH (16:57)
--- NOTE | 2018-04-10 17:24 | P.PN ---
Subjective Date of Service: 04/10/18 Chief Complaint: Abdominal pain Patient seen and examined at bedside. No family at bedside. Chart reviewed and case discussed with nursing staff. Still complaining of pain, states improved from prior to surgery. Now more for soreness in the upper abdomen. Incision sites intact, clear and dry. No discharge noted. Review of Systems 10-point ROS is otherwise unremarkable Physical Examination - Vital Signs Temperature: 97.6 F Blood Pressure: 113/59 Pulse: 88 Respirations: 20 Pulse Ox (%): 98 - Physical Exam General: Alert, Oriented x3, Mild distress, Moderate distress, Obese HEENT: Atraumatic, PERRLA, EOMI Neck: Supple, JVD not distended Respiratory: Clear to auscultation bilaterally, Normal air movement Cardiovascular: Regular rate/rhythm, Normal S1 S2 Gastrointestinal: Normal bowel sounds, Other (Incision sites noted, clean/dry/ intact with no discharge), Tenderness Musculoskeletal: No tenderness Integumentary: No rashes Neurological: Normal speech, Normal tone, Normal affect - Studies Laboratory Data (last 24 hrs) 04/09/18 18:30: Creatinine 0.79 04/09/18 18:30: WBC 16.9 H, Hgb 11.3 L, Hct 36.4, Plt Count 401 04/09/18 18:30: Sodium 135 L, Potassium 3.8, BUN 6 L, Creatinine 0.78, Glucose 310 H, Total Bilirubin 1.0, AST 16, ALT 23, Alkaline Phosphatase 131 H, Lipase 73 Assessment And Plan - Current Problems (Diagnosis) (1) Abdominal pain Current Visit: Yes Status: Acute Qualifiers: Abdominal location: upper abdomen, unspecified Qualified Code(s): R10.10 - Upper abdominal pain, unspecified (2) Appendicitis Current Visit: Yes Status: Acute Qualifiers: Appendicitis type: acute appendicitis Acute appendicitis type: with generalized peritonitis Appendicitis gangrene presence: unspecified whether gangrene present Appendicitis perforation presence: unspecified whether perforation present Appendicitis abscess presence: unspecified whether abscess present Qualified Code(s): K35.20 - Acute appendicitis with generalized peritonitis, without abscess (3) Leukocytosis Current Visit: Yes Status: Acute (4) Ovarian cyst rupture Current Visit: Yes Status: Acute (5) Peritonitis Current Visit: Yes Status: Acute - Plan This is a 27-year-old female with: The patient is status post exploratory laparotomy, laparoscopic appendectomy, POD#0. She was found to have severe pelvic inflammatory disease and bilateral tubal ovarian abscesses. Prior to surgery, imaging with possibility of an appendicitis. Post surgical exam of appendix, per surgery note, did not look that bad. Patient seen after surgery, seems to have tolerated procedure well. Now complains only upper abdominal pain, mostly soreness. States that this pain has drastically improved from prior surgery. We will continue IV antibiotics with Rocephin, Flagyl and ciprofloxacin. General surgery, Dr. Valdes consulted, recommendations/interventions appreciated very much. plastic joint maker, Dr. Leiva consulted on the case as well. Recommendations/interventions appreciated very much. Will continue to manage her pain with IV pain medications. IV Phenergan for nausea as well. Continue to monitor with a.m. labs
[2018-04-10] MEDS ORDERED: Levofloxacin500mg IV 500 MG/100 ML BAG IV SCH (21:00)
[2018-04-10] MEDS: INSULIN -REGULAR HUMAN 50 UNIT/0.5 ML ML SQ SCH (21:00)
[2018-04-11] MEDS: CLINDAMYCIN INJ 900 MG in NA CHLORIDE 0.9% 50 ML IV SCH ×3 (00:37→16:55)
--- NOTE | 2018-04-11 01:55 | OP ---
Date of Procedure: 04/10/2018 Surgeon: Cirilo Valdes MD, Preoperative Diagnosis: Pelvic infection. Postoperative Diagnosis: Severe pelvic inflammatory disease with bilateral tuboovarian complexes and significant severe pelvic infection. Primary Procedures: 1.Exploratory laparoscopy. 2.Laparoscopic appendectomy. 3.Laparoscopic adhesiolysis. 4.Laparoscopic abdominal and pelvic washout. Anesthesia: General endotracheal plus local with 0.5% Marcaine with epinephrine. Estimated Blood Loss: Less than 10 cc. Specimens: 1.Vermiform appendix. 2.Pelvic washings for culture. Findings: 1.Severe pelvic inflammatory disease with bilateral tuboovarian complexes. 2.Normal appearing appendix grossly. 3.Significant intraabdominal pus and infected fluid in both pericolic gutters extending all the way to the perihepatic space and into the pelvis with significant pus in the pelvic space. 4.Enlarged fallopian tubes with significant inflammatory change, inflammatory infectious rind overly ing, and isolated multiple fluid collections. Complications: None. Disposition: Transferred to recovery room in good condition. Procedure In Detail: Informed consent was obtained. The patient was brought to the operating room, prepped and draped in the usual sterile fashion. After adequate anesthesia achieved, an infraumbilic al area was anesthetized with 0.25% Marcaine and sharply incised. A 5 mm, 0-degree optical trocar wa s introduced into the abdomen without evidence of complication. Insufflation was obtained to 15 mmHg at this time. There was no injury to vital structures upon entry into the abdomen. The area was in spected and there was significant murky fluid evident medially upon entry into the abdomen. Addition al trocar site chosen in the right lower quadrant. This was similarly anesthetized, sharply incised, and a 5-mm trocar was introduced in the abdomen under direct visualization without evidence of compl ication. The umbilical trocar was then up-sized to 12 mm under direct visualization without evidence of complication. Additional trocar site was chosen in the left lower quadrant. This was similarly anesthetized and sharply incised and a 5-mm trocar was introduced in the abdomen without evidence of complication. The patient was then positioned head down, right side up position. Pelvic washings w ere obtained at this time and sent for culture from the murky fluid in the right lower quadrant peric olic gutter space. There was significant murky purulent appearing fluid in the pelvis as well which was in continuity with this right and the left lower quadrant and pericolic gutter collections. Afte r suctioning this out completely, the appendix was grasped, elevated, and found to be grossly intact. A mesoappendiceal window was created at this time with the [place] retractor. The Endo HARSHA 35 zhou e load was fired across the base of the appendix with good approximation of the tissue. The Endo-HARSHA was then passed off and the LigaSure device was then used to ligate the mesoappendix with good appro ximation of the tissues and no additional hemostatic maneuvers required. The appendix was then place d in an EndoCatch bag, removed the umbilical trocar, and sent off for pathologic examination. There was no evidence of perforation or gross inflammatory changes to the appendix and therefore it seems l ess likely to be the nidus of infection at this point. I then turned my attention to the pelvis. Dr Iza Leiva was present throughout the entire procedure in the room and helped direct the pelvic wa shings. At this point, I performed laparoscopic adhesiolysis to better visualize the pelvis as there were anterior omental attachments to the anterior abdominal wall, likely from her previous s. After this was taken down using the LigaSure device with good hemostasis, I dissected around the adnexal structures and found bilateral tuboovarian complexes with significant inflammatory and purule nt changes to this area with multiple small loculated collections. These were all broken up, suction ed out completely, and then irrigated copiously until fluid completely clear on bilateral ovarian com plex. The cul-de-sac was visualized at this time and did not have any significant pathologic change other than the normal inflammatory change and the free pelvic fluid as described. After this was com pletely suctioned out as well, the ovaries were not grossly visualized as there were significant infl ammatory changes and the area was somewhat friable. I turned my attention then to the pericolic gutt ers and irrigated and suctioned out all murky and inflammatory fluid from these areas and then we ins pected the liver. There were no adhesions on the liver and the perihepatic space at this time. Cooley jahaira, there was significant murky fluid similar to in the pelvis. This was copiously irrigated and diehl ctioned out completely clear on the right and left pericolic gutters and the perisplenic space as wel l. All performed laparoscopically. After the abdomen was copiously irrigated with approximately 6 L , she was positioned in multiple positions to ensure good irrigation penetration to the entire abdome n and it was suctioned out completely dry. The patient was then positioned in head up position and t he remainder of the fluid was suctioned out from the pelvis. At this point, the patient was then pos itioned back in the neutral position and the umbilical trocar was removed. Umbilical trocar site was closed with a Ranjith-Rusty suture passer with an 0 Vicryl in interrupted fashion with good approx imation of the tissues and the remaining trocars were used to decompress the abdomen under direct vis ualization without evidence of any complication. After this was performed, all remaining trocars wer e removed. All skin incisions were copiously irrigated and closed with a 4-0 Monocryl in a running f ashion. Dermabond placed over top. The patient tolerated the procedure well without evidence of com plication, transferred to the PACU in good condition. All counts were correct at the end of the case . SERJIO/WIL Voice ID: [id number] Report ID: [id number]
[2018-04-11 05:56] LABS: Absolute Lymphocytes (CBC) 1.2 K/uL (0.7-4.9); Absolute Monocytes 0.8 K/uL (0.1-1.3); Absolute Neutrophil 20.6 K/uL (1.8-8.0); Eosinophils % 0.1 % (0-4.4); Hematocrit 29.1 % (36.0-45.0); Lymphocytes % 5.2 % (15.3-44.8); MPV 8.9 fL (7.6-11.3); Monocytes % 3.5 % (3.3-12.3)
[2018-04-11 06:04] LABS: ALT/SGPT 14 U/L (12-78); AST/SGOT 11 U/L (15-37); Albumin 2.1 g/dL (3.4-5.0); Alkaline Phosphatase 117 U/L (45-117); BUN Blood Urea Nitrogen 7 mg/dL (7-18); Bicarbonate 24 mmol/L (21-32); Bilirubin Total 0.7 mg/dL (0.2-1.0); Glucose Level 203 mg/dL (74-106); Potassium 3.5 mmol/L (3.5-5.1); Protein, Total 6.7 g/dL (6.4-8.2); Sodium Level 141 mmol/L (136-145)
[2018-04-11] MEDS: Ringers Lactate 1,000 ML IV SCH ×3 (06:10→20:27)
[2018-04-11] MEDS: INSULIN -REGULAR HUMAN 50 UNIT/0.5 ML ML SQ SCH ×4 (08:37→20:27)
[2018-04-11] MEDS: CEFTRIAXONE/SWI 1gm 1 GM/10 ML SYR IV SCH ×2 (08:38→20:27)
[2018-04-11] MEDS: METRONIDAZOLE 500mg IVPB 500 MG/100 ML BAG IV SCH ×3 (08:38→20:27)
[2018-04-11] MEDS: PRENATAL VITAMIN PO SCH (08:38)
[2018-04-11] MEDS: Oxycodone HCl/Acetaminophen 1 TAB TAB PO PRN ×2 (09:18→20:27)
--- NOTE | 2018-04-11 11:39 | P.PN ---
Subjective Date of Service: 04/11/18 Chief Complaint: Abdominal pain Subjective: Improving (Patient continues to have pain, but improved from prior) Physical Examination - Vital Signs Temperature: 98.7 F Blood Pressure: 106/58 Pulse: 108 Respirations: 18 Pulse Ox (%): 93 - Physical Exam General: Alert, In no apparent distress, Cooperative Gastrointestinal: Other (soft, mild appropriate TTP, incisions clean) - Studies Laboratory Data (last 24 hrs) 04/11/18 05:08: Sodium Cancelled, Potassium Cancelled, BUN Cancelled, Creatinine Cancelled, Glucose Cancelled, Total Bilirubin Cancelled, AST Cancelled, ALT Cancelled, Alkaline Phosphatase Cancelled 04/11/18 05:08: WBC Cancelled, Hgb Cancelled, Hct Cancelled, Plt Count Cancelled 04/11/18 04:51: Sodium 141, Potassium 3.5, BUN 7, Creatinine 0.55, Glucose 203 H , Total Bilirubin 0.7, AST 11 L, ALT 14, Alkaline Phosphatase 117 04/11/18 04:51: WBC 22.6 H*, Hgb 9.2 L, Hct 29.1 L, Plt Count 350 Microbiology Data (last 24 hrs): 04/10/18 11:39 Body Fluid - Pelvis Gram Stain - Final Assessment And Plan - Current Problems (Diagnosis) (1) Abdominal pain Current Visit: Yes Status: Acute Plan: - continue management per Dr. Leiva - will follow along - serial exams - continue antibiotics Qualifiers: Abdominal location: upper abdomen, unspecified Qualified Code(s): R10.10 - Upper abdominal pain, unspecified
--- NOTE | 2018-04-11 12:51 | P.PN ---
Subjective Date of Service: 04/11/18 Chief Complaint: Abdominal pain Subjective: Improving Patient seen and examined at bedside. No family at bedside. Chart reviewed and case discussed with nursing staff. Still complaining of pain, states improved from prior to surgery. Now more for soreness in the upper abdomen. Incision sites intact, clear and dry. No discharge noted. Tolerating clear liquid diet Review of Systems 10-point ROS is otherwise unremarkable Physical Examination - Vital Signs Temperature: 97.2 F Blood Pressure: 100/59 Pulse: 96 Respirations: 18 Pulse Ox (%): 97 - Physical Exam General: Alert, In no apparent distress, Oriented x3 HEENT: Atraumatic, PERRLA, EOMI Neck: Supple, JVD not distended Respiratory: Clear to auscultation bilaterally, Normal air movement Cardiovascular: Regular rate/rhythm, Normal S1 S2 Gastrointestinal: Tenderness Musculoskeletal: No tenderness Integumentary: No rashes Neurological: Normal speech, Normal tone, Normal affect - Studies Laboratory Data (last 24 hrs) 04/11/18 05:08: Sodium Cancelled, Potassium Cancelled, BUN Cancelled, Creatinine Cancelled, Glucose Cancelled, Total Bilirubin Cancelled, AST Cancelled, ALT Cancelled, Alkaline Phosphatase Cancelled 04/11/18 05:08: WBC Cancelled, Hgb Cancelled, Hct Cancelled, Plt Count Cancelled 04/11/18 04:51: Sodium 141, Potassium 3.5, BUN 7, Creatinine 0.55, Glucose 203 H , Total Bilirubin 0.7, AST 11 L, ALT 14, Alkaline Phosphatase 117 04/11/18 04:51: WBC 22.6 H*, Hgb 9.2 L, Hct 29.1 L, Plt Count 350 Microbiology Data (last 24 hrs): 04/10/18 11:39 Body Fluid - Pelvis Gram Stain - Final Assessment And Plan - Current Problems (Diagnosis) (1) Abdominal pain Current Visit: Yes Status: Acute Qualifiers: Abdominal location: upper abdomen, unspecified Qualified Code(s): R10.10 - Upper abdominal pain, unspecified (2) Appendicitis Current Visit: Yes Status: Acute Qualifiers: Appendicitis type: acute appendicitis Acute appendicitis type: with generalized peritonitis Appendicitis gangrene presence: unspecified whether gangrene present Appendicitis perforation presence: unspecified whether perforation present Appendicitis abscess presence: unspecified whether abscess present Qualified Code(s): K35.20 - Acute appendicitis with generalized peritonitis, without abscess (3) Leukocytosis Current Visit: Yes Status: Acute (4) Ovarian cyst rupture Current Visit: Yes Status: Acute (5) Peritonitis Current Visit: Yes Status: Acute - Plan This is a 27-year-old female with: The patient is status post exploratory laparotomy, laparoscopic appendectomy, POD#1. She was found to have severe pelvic inflammatory disease and bilateral tubal ovarian abscesses. Prior to surgery, imaging with possibility of an appendicitis. Post surgical exam of appendix, per surgery note, did not look that bad. Patient seen after surgery, seems to have tolerated procedure well. Now complains only upper abdominal pain, mostly soreness. States that this pain has drastically improved from prior surgery. We will continue IV antibiotics with Rocephin, Flagyl and ciprofloxacin. General surgery, Dr. Valdes consulted, recommendations/interventions appreciated very much. stitching machine setter, Dr. Leiva consulted on the case as well. Recommendations/interventions appreciated very much. Will continue to manage her pain with IV pain medications. IV Phenergan for nausea as well. Continue to monitor with a.m. labs. If worsening symptoms, may have to be transferred for surgical intervention
--- NOTE | 2018-04-11 13:05 | PN ---
Subjective: Patient says she is feeling better this morning and wants something to eat, soups or bro th at first and we will progress her diet as the day goes on if she tolerates it. If she starts taki ng liquids, we will cut back on the IV rate. Full discussion with the patient and family about her si tuation and how she needs to continue on IV antibiotics until the white count and if sedimentation ra te starts coming down and then she can be dismissed with oral medicines that she will need to take fo r least 2 weeks. She knows that she needs to follow up with Dr. Romero, her HYDRO MECHANIC, in the future. Her diabetes is being treated by hospitalist and sugars are coming down. We will see what the white coun t shows tomorrow. None of her temperatures have been to 100 although 1 was like 99.5, so we will watc h temperatures as well as the other indices and make a decision about when to go home. I would proba audrey feel comfortable with tomorrow afternoon if things are looking better, but if not then Thursday. DEVANTE/WIL Voice ID: [id number] Report ID: [id number]
[2018-04-12] MEDS: CLINDAMYCIN INJ 900 MG in NA CHLORIDE 0.9% 50 ML IV SCH ×3 (01:43→17:23)
[2018-04-12 04:57] LABS: Absolute Lymphocytes (CBC) 1.6 K/uL (0.7-4.9); Absolute Monocytes 0.9 K/uL (0.1-1.3); Absolute Neutrophil 15.6 K/uL (1.8-8.0); Basophils % 0.5 % (0-1.3); Eosinophils % 0.5 % (0-4.4); Hematocrit 28.5 % (36.0-45.0); Lymphocytes % 8.9 % (15.3-44.8); RBC Red Blood Cell Count 3.96 M/uL (3.86-4.86)
[2018-04-12] MEDS: Ringers Lactate 1,000 ML IV SCH (06:19)
[2018-04-12] MEDS ORDERED: TRAMADOL HCL 50 MG TAB PO PRN (09:38)
[2018-04-12] MEDS: INSULIN -REGULAR HUMAN 50 UNIT/0.5 ML ML SQ SCH ×4 (10:00→20:55)
--- NOTE | 2018-04-12 10:15 | RAD REPORT ---
EXAM DESCRIPTION: Gustavo Single View04/12/2018 10:09 am CLINICAL HISTORY: Chest pain COMPARISON: April 09, 2018 FINDINGS: The lung bases are hazy having the appearance of atelectasis. Upper lobes are clear. The heart is normal size IMPRESSION: Bibasilar atelectasis
[2018-04-12] MEDS: PRENATAL VITAMIN PO SCH (10:19)
[2018-04-12] MEDS: CEFTRIAXONE/SWI 1gm 1 GM/10 ML SYR IV SCH ×2 (10:20→20:55)
[2018-04-12 10:57] LABS: BUN Blood Urea Nitrogen 4 mg/dL (7-18); Bicarbonate 28 mmol/L (21-32); Glucose Level 255 mg/dL (74-106); Potassium 3.7 mmol/L (3.5-5.1); Sodium Level 137 mmol/L (136-145); Thyroid Stimulating Hormone 0.709 uIU/mL (0.360-3.740)
--- NOTE | 2018-04-12 10:59 | P.PN ---
Subjective Date of Service: 04/12/18 Chief Complaint: Abdominal pain Subjective: Improving (Patient continues to improve, but continues to have abdominal pain.) Physical Examination - Vital Signs Temperature: 97.5 F Blood Pressure: 109/61 Pulse: 96 Respirations: 18 Pulse Ox (%): 93 - Physical Exam General: Alert, In no apparent distress, Cooperative Gastrointestinal: Other (soft, mild appropriate TTP, ND, incisions clean and dry.) - Studies Microbiology Data (last 24 hrs): 04/10/18 11:39 Body Fluid - Pelvis Gram Stain - Final Assessment And Plan - Current Problems (Diagnosis) (1) Abdominal pain Current Visit: Yes Status: Acute Plan: - continue management per Dr. Leiva - will follow along - serial exams - continue antibiotics Qualifiers: Abdominal location: upper abdomen, unspecified Qualified Code(s): R10.10 - Upper abdominal pain, unspecified
[2018-04-12] MEDS: METRONIDAZOLE 500mg IVPB 500 MG/100 ML BAG IV SCH ×3 (11:11→20:54)
--- NOTE | 2018-04-12 12:27 | PN ---
Subjective: Continues afebrile, says she is feeling better. Her appetite has returned. She is ambu lating well. White count has come down from approximately 22,000 to 23,000 now to 18,000, sedimentat ion rate which was 51 when it was first measured is now down to 31. I think that another 24 hours of antibiotics should get as in a position where at that point we should be able to dismiss the patient on oral medicines. She will take for at least another 2 weeks. She knows to follow up with Dr. Devante faria as I will be out of town and as listed Dr. Romero is her CRM ARCHITECT provider. Full discussion with javierbonnie ashlee and family. DEVANTE/WIL Voice ID: [id number] Report ID: [id number]
--- NOTE | 2018-04-12 16:55 | P.PN ---
Subjective Date of Service: 04/12/18 Primary Care Provider: Dr. Roche; HOTEL SERVER-Dr. Romero Chief Complaint: Abdominal pain Subjective: Improving Physical Examination - Vital Signs Temperature: 98.3 F Blood Pressure: 108/61 Pulse: 83 Respirations: 18 Pulse Ox (%): 99 - Physical Exam General: Alert, In no apparent distress, Oriented x3, Cooperative HEENT: Atraumatic Neck: Supple Respiratory: Clear to auscultation bilaterally, Normal air movement Cardiovascular: Normal pulses, Regular rate/rhythm Gastrointestinal: Normal bowel sounds, Soft and benign, Non-distended, No tenderness, No masses, No rebound, No guarding Musculoskeletal: No erythema, No tenderness, No warmth Integumentary: No tenderness/swelling, No erythema, No warmth, No cyanosis Neurological: Normal speech, Normal strength at 5/5 x4 extr, Normal tone, Normal affect - Studies Microbiology Data (last 24 hrs): 04/10/18 11:39 Body Fluid - Pelvis Gram Stain - Final Medications List Reviewed: Yes Assessment & Plan Discharge Plan: Home Plan to discharge in: 24 Hours Physician Review Additional Text: Impression: Abdominal pain secondary to severe pelvic inflammatory disease with bilateral tubular ovarian complexes status post laparoscopic appendectomy and lysis of adhesions with removal of fluid Diabetes mellitus type 2 Obesity, BMI 41 Bilateral atelectasis Anemia likely iron deficiency Suspect obstructive sleep apnea: Plan: Abdominal pain secondary to severe pelvic inflammatory disease with bilateral tubular ovarian complexes status post laparoscopic appendectomy and lysis of adhesions with removal of fluid: The patient has done well post operatively. Continue IV antibiotic therapy. Case discussed with surgery and gynecology. Possible discharge in the next 24-48 hr if significantly improved. Patient will likely require Cipro and doxycycline at discharge. Continue incentive spirometer. Encourage ambulation. Diabetes mellitus type 2: A1c elevated. Will start basal insulin. Patient will need a continue with basal insulin at discharge. Patient would benefit with endocrinology evaluation and in the future for better diabetic control. Obesity, BMI 41: Continue lifestyle modification education. Bilateral atelectasis: Encourage ambulation. Will provide incentive spirometer. Continue DVT prophylaxis. Anemia likely iron deficiency: Overall stable. Will check iron and B12 deficiency Suspect obstructive sleep apnea: Will recommend sleep study to be done as an outpatient to further assess. Time Spent Managing Pts Care (In Minutes): 55
[2018-04-12] MEDS: ENOXAPARIN 40 MG/0.4 ML SQ SCH (17:27)
[2018-04-12] MEDS: PROMETHAZINE 25 MG/ML VIAL IV PRN (18:43)
[2018-04-12] MEDS: INSULIN GLARGINE 100 UNITS/ML SQ SCH (20:54)
[2018-04-13] MEDS: CLINDAMYCIN INJ 900 MG in NA CHLORIDE 0.9% 50 ML IV SCH (00:29)
[2018-04-13] MEDS: Oxycodone HCl/Acetaminophen 1 TAB TAB PO PRN ×2 (02:34→13:25)
[2018-04-13 04:13] LABS: Absolute Lymphocytes (CBC) 1.3 K/uL (0.7-4.9); Absolute Monocytes 1.1 K/uL (0.1-1.3); Basophils % 0.3 % (0-1.3); Eosinophils % 0.5 % (0-4.4); Hematocrit 29.6 % (36.0-45.0); Lymphocytes % 8.4 % (15.3-44.8); MPV 8.6 fL (7.6-11.3); Monocytes % 6.9 % (3.3-12.3); RBC Red Blood Cell Count 4.13 M/uL (3.86-4.86)
[2018-04-13 04:53] LABS: BUN Blood Urea Nitrogen 6 mg/dL (7-18); Bicarbonate 26 mmol/L (21-32); Ferritin 75.3 ng/mL (8-388); Glucose Level 191 mg/dL (74-106); Magnesium 1.8 mg/dL (1.8-2.4); Potassium 3.4 mmol/L (3.5-5.1); Sodium Level 141 mmol/L (136-145); Transferrin 135 mg/dL (200-360)
[2018-04-13] MEDS ORDERED: MAGNESIUM SULFATE 1 gm IVPB 1 GM/100 ML BAG IV ONE (08:00)
[2018-04-13] MEDS: INSULIN -REGULAR HUMAN 50 UNIT/0.5 ML ML SQ SCH ×4 (08:30→20:37)
[2018-04-13] MEDS: CEFTRIAXONE/SWI 1gm 1 GM/10 ML SYR IV SCH (08:31)
[2018-04-13] MEDS: METRONIDAZOLE 500mg IVPB 500 MG/100 ML BAG IV SCH ×3 (08:31→20:37)
[2018-04-13] MEDS: PRENATAL VITAMIN PO SCH (08:32)
[2018-04-13] MEDS ORDERED: LACTULOSE 20 GM/30 ML UCUP PO PRN (08:56)
[2018-04-13 09:10] VITALS: O2SAT 96
[2018-04-13] MEDS: Levofloxacin500mg IV 500 MG/100 ML BAG IV SCH (09:27)
[2018-04-13] MEDS: DOCUSATE NA 100 MG CAP PO SCH (09:27)
--- NOTE | 2018-04-13 11:19 | PN ---
After discussion with Dr. Carrasco yesterday, he has agreed to take over the case. Once the patient is discharged, she will be seen by Dr. Romero, who was given as the primary GRADING SUPERVISOR provider when the patien t was admitted. Full discussion with Dr. Carrasco. At this point, I am no longer involved. DEVANTE/WIL Voice ID: [id number] Report ID: [id number]
--- NOTE | 2018-04-13 15:36 | P.PN ---
Subjective Date of Service: 04/13/18 Primary Care Provider: Dr. Roche; SEPARATIONS SCIENTIST-Dr. Romero Chief Complaint: Abdominal pain Subjective: Improving Physical Examination - Vital Signs Temperature: 98.2 F Blood Pressure: 105/56 Pulse: 87 Respirations: 16 Pulse Ox (%): 94 - Physical Exam General: Alert, In no apparent distress, Oriented x3, Cooperative HEENT: Atraumatic Neck: Supple Respiratory: Clear to auscultation bilaterally, Normal air movement Cardiovascular: Normal pulses, Regular rate/rhythm Gastrointestinal: Normal bowel sounds, Soft and benign, Non-distended, No tenderness, No masses, No rebound, No guarding Musculoskeletal: No erythema, No tenderness, No warmth Integumentary: No tenderness/swelling, No erythema, No warmth, No cyanosis Neurological: Normal speech, Normal strength at 5/5 x4 extr, Normal tone, Normal affect - Studies Microbiology Data (last 24 hrs): 04/10/18 11:39 Body Fluid - Pelvis Gram Stain - Final 04/10/18 11:39 Body Fluid - Pelvis Culture & Sensitivity - Final Streptococcus Agalactiae Grp B Medications List Reviewed: Yes Assessment & Plan Discharge Plan: Home Plan to discharge in: 24 Hours Physician Review Additional Text: Impression: Abdominal pain secondary to severe pelvic inflammatory disease with bilateral tubular ovarian complexes status post laparoscopic appendectomy and lysis of adhesions with removal of fluid, fluid culture positive for Streptococcus Diabetes mellitus type 2 Obesity, BMI 41 Bilateral atelectasis Anemia with iron deficiency Suspect obstructive sleep apnea: Plan: Abdominal pain secondary to severe pelvic inflammatory disease with bilateral tubular ovarian complexes status post laparoscopic appendectomy and lysis of adhesions with removal of fluid, fluid culture positive for Streptococcus: The patient continues to improve. Antibiotics adjusted to Levaquin and Flagyl. Anticipate discharge in the next 24 hr if white count improved. Encourage incentive spirometer. Encourage ambulation. Will reassess tomorrow. Diabetes mellitus type 2: Continue with insulin therapy. Patient will need a continue with basal insulin at discharge. Patient would benefit with endocrinology evaluation and in the future for better diabetic control. Obesity, BMI 41: Continue lifestyle modification education. Bilateral atelectasis: Encourage ambulation. Continue with incentive spirometer. Continue DVT prophylaxis. Anemia with iron deficiency: Overall stable. Will start iron supplementation Suspect obstructive sleep apnea: Will recommend sleep study to be done as an outpatient to further assess. Time Spent Managing Pts Care (In Minutes): 55
[2018-04-13] MEDS: ENOXAPARIN 40 MG/0.4 ML SQ SCH (17:02)
--- NOTE | 2018-04-13 17:34 | P.PN ---
Subjective Date of Service: 04/13/18 Primary Care Provider: Dr. Roche; FAMILY ASSISTANT-Dr. Romero Chief Complaint: Abdominal pain Subjective: Improving Physical Examination - Vital Signs Temperature: 98.2 F Blood Pressure: 110/56 Pulse: 93 Respirations: 16 Pulse Ox (%): 96 - Physical Exam General: Alert, In no apparent distress, Cooperative Gastrointestinal: Other (mild, appropriate TTP, ND, minimal pelvic, suprapubic TTP) - Studies Microbiology Data (last 24 hrs): 04/10/18 11:39 Body Fluid - Pelvis Gram Stain - Final 04/10/18 11:39 Body Fluid - Pelvis Culture & Sensitivity - Final Streptococcus Agalactiae Grp B Medications List Reviewed: Yes Assessment And Plan - Current Problems (Diagnosis) (1) Abdominal pain Current Visit: Yes Status: Acute Plan: - continue management per Dr. Leiva - will follow along - serial exams - continue antibiotics Qualifiers: Abdominal location: upper abdomen, unspecified Qualified Code(s): R10.10 - Upper abdominal pain, unspecified Physician Review Additional Text: Impression: Abdominal pain secondary to severe pelvic inflammatory disease with bilateral tubular ovarian complexes status post laparoscopic appendectomy and lysis of adhesions with removal of fluid, fluid culture positive for Streptococcus Diabetes mellitus type 2 Obesity, BMI 41 Bilateral atelectasis Anemia with iron deficiency Suspect obstructive sleep apnea: Plan: Abdominal pain secondary to severe pelvic inflammatory disease with bilateral tubular ovarian complexes status post laparoscopic appendectomy and lysis of adhesions with removal of fluid, fluid culture positive for Streptococcus: The patient continues to improve. Antibiotics adjusted to Levaquin and Flagyl. Anticipate discharge in the next 24 hr if white count improved. Encourage incentive spirometer. Encourage ambulation. Will reassess tomorrow. Diabetes mellitus type 2: Continue with insulin therapy. Patient will need a continue with basal insulin at discharge. Patient would benefit with endocrinology evaluation and in the future for better diabetic control. Obesity, BMI 41: Continue lifestyle modification education. Bilateral atelectasis: Encourage ambulation. Continue with incentive spirometer. Continue DVT prophylaxis. Anemia with iron deficiency: Overall stable. Will start iron supplementation Suspect obstructive sleep apnea: Will recommend sleep study to be done as an outpatient to further assess.
[2018-04-13] MEDS: FERROUS SULFATE 325 MG TAB PO SCH (20:36)
[2018-04-13] MEDS: INSULIN GLARGINE 100 UNITS/ML SQ SCH (20:38)
[2018-04-14 04:26] LABS: Absolute Lymphocytes (CBC) 1.4 K/uL (0.7-4.9); Absolute Neutrophil 11.8 K/uL (1.8-8.0); Basophils % 0.3 % (0-1.3); Eosinophils % 1.4 % (0-4.4); Hematocrit 28.8 % (36.0-45.0); Lymphocytes % 9.7 % (15.3-44.8); MPV 8.4 fL (7.6-11.3); Monocytes % 7.2 % (3.3-12.3); RBC Red Blood Cell Count 4.06 M/uL (3.86-4.86)
[2018-04-14] MEDS: Oxycodone HCl/Acetaminophen 1 TAB TAB PO PRN (04:30)
[2018-04-14 04:38] LABS: BUN Blood Urea Nitrogen 4 mg/dL (7-18); Bicarbonate 27 mmol/L (21-32); Glucose Level 178 mg/dL (74-106); Magnesium 1.7 mg/dL (1.8-2.4); Potassium 3.5 mmol/L (3.5-5.1); Sodium Level 140 mmol/L (136-145)
[2018-04-14] MEDS: INSULIN -REGULAR HUMAN 50 UNIT/0.5 ML ML SQ SCH ×2 (07:30→13:00)
[2018-04-14] MEDS: FERROUS SULFATE 325 MG TAB PO SCH (09:17)
[2018-04-14] MEDS: DOCUSATE NA 100 MG CAP PO SCH (09:17)
[2018-04-14] MEDS: PRENATAL VITAMIN PO SCH (09:17)
[2018-04-14] MEDS: METRONIDAZOLE 500mg IVPB 500 MG/100 ML BAG IV SCH ×2 (09:18→14:04)
[2018-04-14] MEDS: Levofloxacin500mg IV 500 MG/100 ML BAG IV SCH (09:18)
--- NOTE | 2018-04-14 13:24 | P.DS ---
Admission Date: 04/11/18 Discharge Date: 04/14/18 Primary Care Provider: Dr. Roche; NEEDLE PROCESS FELT GOODS SUPERVISOR-Dr. Romero Disposition: ROUTINE DISCHARGE Discharge Condition: GOOD Reason for Admission: Abdominal pain Consultations: NEEDLE PROCESS FELT GOODS SUPERVISOR-Dr. Leiva/Dr. Castillo Surgery-Dr. Valdes Procedures: CT scan: COMPARISON: CT ABD PELVIS W CONTRAST dated 01/18/2009 TECHNIQUE: Biphasic CT imaging of the abdomen and pelvis was performed with 100 ml non-ionic IV contrast. All CT scans are performed using dose optimization technique as appropriate and may include automated exposure control or mA/KV adjustment according to patient size. FINDINGS: The lung bases are clear. Mild fatty liver is present. The spleen, pancreas, adrenal glands and kidneys are within normal limits. Moderate free fluid is seen in the abdomen and pelvis. Prominent bilateral cystic lesions are seen involving both ovaries, on the left a 6.4 x 5.2 cm septated cystic lesion or 2 abutting cystic lesions is present. On the right a somewhat irregular irregularly-shaped cystic lesion is present measuring 4.2 x 1.7 cm. The appendix appears prominent in size proximally measuring 10-11 mm. Free fluid is seen in the right lower quadrant, however a great deal of inflammatory findings typical of appendicitis are not identified. No evidence of significant lymphadenopathy. No suspicious bony findings. IMPRESSION: Moderate free fluid is seen in the abdomen and pelvis with cystic bilateral ovarian lesions present. Recent right-sided ovarian cyst rupture is a possibility. The appendix is also prominent in size in the right lower quadrant measuring 10- 11 mm. Acute appendicitis cannot be completely ruled out although this is considered less likely. Transvaginal US: COMPARISON: April 09 CAT scan FINDINGS: The uterus measures 8 x 4 x 5cm. A fibroid is not seen. The endometrial stripe measures 9 millimeters. The right ovary measures 5 x 4.5 x 4.4 centimeters. It contains a 2.5 centimeter cyst. Blood flow is present. The left ovary measures 7.6 x 5.6 x 4.8 centimeters. It contains a 5.2 centimeter cyst. It contains an additional 3.8 centimeter hemorrhagic cyst. Blood flow is seen. Evaluation of the adnexal unremarkable. Small amount of free fluid IMPRESSION: Enlarged ovaries. 5.2 centimeter left ovarian cyst. 3.8 centimeter left ovarian hemorrhagic cyst 2.5 centimeter right ovarian cyst Surgery: Date: 04/10/18 12:09 Preoperative diagnosis: Pelvic Infection Postoperative diagnosis: Severe PID with Bilateral Tubuovarian complexes Primary procedure: Exploratory Laparoscopy Secondary procedure: Laparascopic Appendectomy Other procedure(s): Laparoscopic Adhesiolysis Anesthesia: GETA + Local Estimated blood loss: <10cc Specimen: Vermiform Appendix, Pelvic Washings Findings: Severe PID with Bilateral Tubuovarian complexes, normal appendix Complications: None Medical Problem List: Abdominal pain secondary to severe pelvic inflammatory disease with bilateral tubular ovarian complexes status post exploratory laparoscopy, laparoscopic appendectomy, laparoscopic adhesiolysis with fluid culture positive for Streptococcus Multiple bilateral ovarian cysts Diabetes mellitus type 2, on controlled Obesity, BMI 41 Bilateral atelectasis Anemia with iron deficiency Suspect obstructive sleep apnea Brief History of Present Illness: 27-year-old female presented to emergency room with severe abdominal pain to the lower quadrant. Patient found to have abnormal CT scan with fluid in the pelvis and possible appendicitis. Patient was admitted for further evaluation. Surgery and Gynecology were consulted Patient with history of diabetes. Hospital Course: Patient presented with abdominal pain. Patient seen and evaluated by gynecology and surgery. Patient found to have severe pelvic inflammatory disease with bilateral tubular ovarian complexes. Patient had surgery requiring exploratory laparoscopy, laparoscopic appendectomy, laparoscopic adhesiolysis with fluid collection. Pelvic fluid was positive for Streptococcus. Patient did well post operatively. Patient with history of STD in the past. Patient ambulating and without any significant pain. At discharge her materials handling coordinator was able to see and evaluate her. At discharge she will continue with [id number] mg daily and Flagyl 500 mg 3 times a day for 2 weeks. Patient will follow up with gynecology next week to further address. Patient will be provided tramadol 50 mg 1 pill 3 times a day as needed for pain. STD education will be provided. No heavy lifting greater than 10 lb is recommended at discharge. Patient will also follow up with surgery in 2-4 weeks to follow up this hospitalization. Recommend to recheck lab-CBC and BMP in 1-2 weeks to monitor progress. Patient with diabetes type 2. This is uncontrolled. A1c 11.5. Patient started on insulin therapy during her stay. At discharge she will continue with Lantus 15 units subcu daily. She will also continue with metformin at a higher dose of 1000 mg 1 pill twice daily. Recommend to maintain blood sugars less 140 fasting and less than 200 after meals. Further adjustment can be done by her PCP. Further adjustment in insulin may be required. Diabetic control will be important postoperatively. Recommend to follow up with her PCP within 1 week to further address. Patient with iron deficiency anemia. At discharge she will continue with iron 325 mg 1 pill twice daily. Recommend to recheck lab-CBC in 2-4 weeks to monitor progress. Patient likely with underlying obstructive sleep apnea. Recommend for patient to follow up with pulmonology for sleep study to further address. Patient had bilateral atelectasis after surgery. Patient continues to do well. Recommend to continue with incentive spirometer at home. Patient with mild constipation at discharge. She will continue with stool softener daily and lactulose 3 times a day as needed for constipation. Increase oral intake recommended. Lifestyle modification education will be provided. Vital Signs/Physical Exam: Temp Pulse Resp BP Pulse Ox 97.9 F 86 20 118/63 96 04/14/18 08:00 04/14/18 08:00 04/14/18 08:00 04/14/18 08:00 04/14/18 08:00 General: Alert, In no apparent distress, Oriented x3, Cooperative HEENT: Atraumatic Neck: Supple Respiratory: Clear to auscultation bilaterally, Normal air movement Cardiovascular: Normal pulses, Regular rate/rhythm Gastrointestinal: Normal bowel sounds, Soft and benign, Non-distended, No tenderness, No masses, No rebound, No guarding Musculoskeletal: No erythema, No tenderness, No warmth Integumentary: No tenderness/swelling, No erythema, No warmth, No cyanosis Neurological: Normal speech, Normal strength at 5/5 x4 extr, Normal tone, Normal affect Laboratory Data at Discharge: WBC 14.5 K/uL (4.3-10.9) H 04/14/18 03:53 Hgb 9.3 g/dL (12.0-15.0) L 04/14/18 03:53 Hct 28.8 % (36.0-45.0) L 04/14/18 03:53 Plt Count 447 K/uL (152-406) H 04/14/18 03:53 Sodium 140 mmol/L (136-145) 04/14/18 03:53 Potassium 3.5 mmol/L (3.5-5.1) 04/14/18 03:53 BUN 4 mg/dL (7-18) L 04/14/18 03:53 Creatinine 0.53 mg/dL (0.55-1.3) L 04/14/18 03:53 Glucose 178 mg/dL (74-106) H 04/14/18 03:53 Magnesium 1.7 mg/dL (1.8-2.4) L 04/14/18 03:53 Total Bilirubin 0.7 mg/dL (0.2-1.0) 04/11/18 04:51 AST 11 U/L (15-37) L 04/11/18 04:51 ALT 14 U/L (12-78) 04/11/18 04:51 Alkaline Phosphatase 117 U/L (45-117) 04/11/18 04:51 Lipase 73 U/L (73-393) 04/09/18 18:30 Home Medications: Docusate [Colace Cap*] 100 mg PO DAILY #30 cap 04/14/18 Ferrous Sulfate [Ferrous Sulfate*] 325 mg PO BID #60 tab 04/14/18 Insulin Glargine Human [Lantus*] 15 units SQ BEDTIME #1 bottle 04/14/18 Lactulose [Cephulac*] 30 ml PO BID PRN #1 bottle 04/14/18 Levofloxacin [Levaquin] 500 mg PO DAILY #14 tablet 04/14/18 Metformin HCl 1,000 mg PO BID #60 tablet 04/14/18 metroNIDAZOLE [Flagyl] 500 mg PO Q8H #42 tablet 04/14/18 traMADol HCL [Ultram*] 50 mg PO TID PRN #20 tab 04/14/18 New Medications: Docusate [Colace Cap*] 100 mg PO DAILY #30 cap Ferrous Sulfate [Ferrous Sulfate*] 325 mg PO BID #60 tab Insulin Glargine Human [Lantus*] 15 units SQ BEDTIME #1 bottle Lactulose [Cephulac*] 30 ml PO BID PRN #1 bottle PRN Reason: Constipation Levofloxacin [Levaquin] 500 mg PO DAILY #14 tablet Metformin HCl 1,000 mg PO BID #60 tablet metroNIDAZOLE [Flagyl] 500 mg PO Q8H #42 tablet traMADol HCL [Ultram*] 50 mg PO TID PRN #20 tab PRN Reason: Pain Patient Discharge Instructions: 1. Patient will need to follow up with her PCP in 1 week. Patient has follow up with gynecology within 1 week. 2. Patient presented with abdominal pain. Patient seen and evaluated by gynecology and surgery. Patient found to have severe pelvic inflammatory disease with bilateral tubular ovarian complexes. Patient had surgery requiring exploratory laparoscopy, laparoscopic appendectomy, laparoscopic adhesiolysis with fluid collection. Pelvic fluid was positive for Streptococcus. Patient did well post operatively. Patient with history of STD in the past. Patient ambulating and without any significant pain. At discharge her materials handling coordinator was able to see and evaluate her. At discharge she will continue with [id number] mg daily and Flagyl 500 mg 3 times a day for 2 weeks. Patient will follow up with gynecology next week to further address. Patient will be provided tramadol 50 mg 1 pill 3 times a day as needed for pain. STD education will be provided. No heavy lifting greater than 10 lb is recommended at discharge. Patient will also follow up with surgery in 2-4 weeks to follow up this hospitalization. Recommend to recheck lab-CBC and BMP in 1-2 weeks to monitor progress. 3. Patient with diabetes type 2. This is uncontrolled. A1c 11.5. Patient started on insulin therapy during her stay. At discharge she will continue with Lantus 15 units subcu daily. She will also continue with metformin at a higher dose of 1000 mg 1 pill twice daily. Recommend to maintain blood sugars less 140 fasting and less than 200 after meals. Further adjustment can be done by her PCP. Further adjustment in insulin may be required. Diabetic control will be important postoperatively. Recommend to follow up with her PCP within 1 week to further address. 4. Patient with iron deficiency anemia. At discharge she will continue with iron 325 mg 1 pill twice daily. Recommend to recheck lab- CBC in 2-4 weeks to monitor progress. 5. Patient likely with underlying obstructive sleep apnea. Recommend for patient to follow up with pulmonology for sleep study to further address. 6. Patient had bilateral atelectasis after surgery. Patient continues to do well. Recommend to continue with incentive spirometer at home. 7. Patient with mild constipation at discharge. She will continue with stool softener daily and lactulose 3 times a day as needed for constipation. Increase oral intake recommended. 8. Lifestyle modification education will be provided. Diet: ADA Activity: No lifting more than 10 lbs Time spent managing pt's care (in minutes): 55
[2018-04-14] MEDS ORDERED: INFLUENZA VACCINE (for 3y+) 0.5 ML DOSE IMVAC ONE (16:00)
[2018-04-14] MEDS ORDERED: INSULIN -REGULAR HUMAN 50 UNIT/0.5 ML ML SQ SCH (16:30)
[2018-04-14 16:39] VITALS: BP 113/65; TEMP 97.4
== END 2018-04-14 17:40 | disposition home or self-care (01) | DRG 749 ==
LOC: ER 17:17 → ERHOLD 23:45 → 4TH 04-10 00:04 → OBSVTOIN 04-11 09:21
PROVIDERS: ADMIT Hospitalist; ATTEND Family Medicine
PROC: 0DNW4ZZ Release Peritoneum, Percutaneous Endoscopic Approach (ICD-10-PCS; 2018-04-10)
PROC: 0DTJ4ZZ Resection of Appendix, Percutaneous Endoscopic Approach (ICD-10-PCS; principal; 2018-04-10 12:00)
DX: N73.0 Acute parametritis and pelvic cellulitis (principal); Z68.41 Body mass index [BMI] 40.0-44.9, adult; J98.11 Atelectasis; K35.80 Unspecified acute appendicitis; N83.292 Other ovarian cyst, left side; N83.291 Other ovarian cyst, right side; E11.9 Type 2 diabetes mellitus without complications; G47.33 Obstructive sleep apnea (adult) (pediatric); D50.9 Iron deficiency anemia, unspecified; K59.00 Constipation, unspecified; E66.01 Morbid (severe) obesity due to excess calories; N70.03 Acute salpingitis and oophoritis; B95.5 Unspecified streptococcus as the cause of diseases classified elsewhere
CPT/HCPCS: 36415; 71045; 71046; 74177; 76830; 80048; 80053; 80076; 81003; 82607; 82728; 82962; 83036; 83540; 83605; 83690; 83735; 84145; 84443; 84466; 84702; 85025; 85652; 87040; 87070; 87077; 87186; 88304; 96365; 96368; 96372; 96375; 97162; 99285; G0378; J0696; J1170; J1650; J2250; J2405; J2550; J2704; J2710; J3010; J3475; J7030; Q9967

== ENCOUNTER 2018-05-15 09:22 | Emergency (ER) | payer SELFPAY ==
--- OUTSIDE RECORDS SUMMARY | 2018-05-15 09:25 | XMS REPORT ---
[...] Medications Results No Known Results Summary Purpose [facility] Submission
--- OUTSIDE RECORDS SUMMARY | 2018-05-15 09:25 | XMS REPORT ---
:1990 Author Organization [employer] Care Team Providers Name Role Phone Cirilo Valdes Provider Role Unavailable Allergies No Known Allergies Problems Problem Type Condition Code Onset Dates Condition Status Problem Allergic rhinitis J30.9 Active Problem Family planning education, guidance, Z30.09 Active and counseling Problem Hyperlipidemia E78.5 Active Problem Hyperglycemia R73.9 Active Problem Pelvic pain R10.2 Active Problem Tubo-ovarian abscess N70.93 Active Problem Follow up Z09 Active Problem Body mass index (BMI) of 40.0-44.9 Z68.41 Active in adult Problem Uncontrolled type 2 diabetes E11.65 Active mellitus without complication, without long-term current use of insulin Problem Abnormal menstrual periods N92.6 Active Problem Morbid (severe) obesity due to E66.01 Active excess calories Medications No Known Medications Results No Known Results Summary Purpose [employer] Submission
--- OUTSIDE RECORDS SUMMARY | 2018-05-15 09:25 | XMS REPORT ---
:1990 Author Organization [employer] Care Team Providers Name Role Phone Lucio Cirilo Provider Role Unavailable Allergies, Adverse Reactions, Alerts Substance Reaction Event Type N.K.D.A. Info Not Available Non Drug Allergy Problems Problem Type Condition Code Onset Dates Condition Status Problem Allergic rhinitis J30.9 Active Problem Family planning education, guidance, Z30.09 Active and counseling Problem Hyperlipidemia E78.5 Active Problem Pelvic pain R10.2 Active Problem Tubo-ovarian abscess N70.93 Active Problem Follow up Z09 Active Problem Body mass index (BMI) of 40.0-44.9 Z68.41 Active in adult Problem Uncontrolled type 2 diabetes E11.65 Active mellitus without complication, without long-term current use of insulin Problem Abnormal menstrual periods N92.6 Active Problem Morbid (severe) obesity due to E66.01 Active excess calories Assessment Tubo-ovarian abscess N70.93 Active Assessment Pelvic inflammatory disease (PID) N73.9 Active Assessment Periappendicitis K37 Active Problem Hyperglycemia R73.9 Active Medications Medication Code Code Instructions Start End Status Dosage System Date Date blood glucose NDC 0 n/s finger stick May Active one test strip once a day 2017 Alcohol Prep NDC 0 topical twice May Active as directed Pads daily 2017 Lisinopril [facility] 94420436971 20 MG Orally Active 1 tablet Once a day Lancets Super NDC 0 n/s finger stick May Active one Thin once 2017 Norethin ND 93401427819 1-20 MG-MCG(24) April Active 1 tablet Johnnie-Eth Orally Once a 2018 Estrad- day [place] ND 80195499880 3-0.02 MG Orally Active 1 tablet Once a day Metformin HCl ND [id number] 500 MG Orally Active 1 tablet Twice a day with meals Results No Known Results Summary Purpose [employer] Submission
--- OUTSIDE RECORDS SUMMARY | 2018-05-15 09:25 | XMS REPORT ---
:1990 Author Organization eClinicalWorks Care Team Providers Name Role Phone Jake Romero Provider Role Unavailable Allergies, Adverse Reactions, Alerts [...] due to E66.01 Active excess calories Assessment Pelvic pain R10.2 Active Assessment Follow up Z09 Active Assessment Postop check Z09 Active Assessment Tubo-ovarian abscess N70.93 Active Problem Hyperglycemia R73.9 Active Medications Medication Code Code Instructions Start End Status Dosage System Date Date Norethin [facility] 68841354347 1-20 MG-MCG(April Active 1 tablet Johnnie-Eth Orally Once a 2018 Estrad- day Lisinopril ND 54040309715 20 MG Orally Active 1 tablet Once a day Loryna [facility] 09372230917 3-0.02 MG Orally Active 1 tablet Once a day Lancets Super NDC 0 n/s finger stick May Active one Thin once 2017 Alcohol Prep NDC 0 topical twice May Active as directed Pads daily 2017 Metformin HCl ND 36144639456 500 MG Orally Active 1 tablet Twice a day with meals blood glucose NDC 0 n/s finger stick May Active one test strip once a day 2017 Results No Known Results Summary Purpose eClinicalWorks Submission
--- OUTSIDE RECORDS SUMMARY | 2018-05-15 09:25 | XMS REPORT ---
:1990 [facility] Address [address] [place] [address] Dr. Krishna [address] [place] [id number] Care Team Providers Name Role Phone Unavailable Unavailable Unavailable Problems This patient has no known problems. Allergies, Adverse Reactions, Alerts This patient has no known allergies or adverse reactions. Medications This patient has no known medications.
--- OUTSIDE RECORDS SUMMARY | 2018-05-15 09:25 | XMS REPORT ---
[...] May one Thin once 2017 Lisinopril ND 08082710650 20 MG Orally Active 1 tablet Once a day Loryna ND 74183020863 3-0.02 MG Orally Active 1 tablet Once a day Glucometer NDC 0 n/s n/s use as May Active one directed 2017 Alcohol Prep NDC 0 topical twice May Active as directed Pads daily 2017 Metformin HCl NDC 78038521005 500 MG Orally Active 1 tablet Twice a day with meals blood glucose NDC 0 n/s finger stick May Active one test strip once a day 2017 Results No Known Results Summary Purpose eClinicalWorks Submission
--- NOTE | 2018-05-15 10:18 | EDPHYS ---
Physician Documentation [facility] Name: Stacy Islas Age: 27 yrs Sex: Female : 1990 Arrival Date: 05/15/2018 Time: 09:24 Bed 16 Private MD: ED Physician Bubba Nolan HPI: 05/15 10:16 This 27 yrs old Female presents to ER via Ambulatory with complaints of kb Vaginal Problem, Insect Bite - Leg. 10:16 The patient presents with an abscess of the left labia majora and right hamstring. kb Description: erythematous, swollen. Onset: The symptoms/episode began/occurred 3 day(s) ago. Possible cause(s): unknown. Associated signs and symptoms: Pertinent positives: erythema, swelling, Pertinent negatives: discharge, drainage, foreign body sensation, fever, headache, nausea, shortness of breath, vomiting. Modifying factors: the symptoms are alleviated by nothing, the symptoms are aggravated by pressure, squeezing the lesion and expressing the contents, touching. Severity of symptoms: At their worst the symptoms were mild, in the emergency department the symptoms are unchanged. The patient has not experienced similar symptoms in the past. The patient has not recently seen a physician. 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 - Social history:: Smoking status: Patient/guardian denies using tobacco. - Ebola Screening: : Patient negative for fever greater than or equal to 101.5 degrees Fahrenheit, and additional compatible Ebola Virus Disease symptoms Patient denies exposure to infectious person Patient denies travel to an Ebola-affected area in the 21 days before illness onset No symptoms or risks identified at this time. ROS: 10:13 Constitutional: Negative for fever, chills, and weight loss, Cardiovascular: Negative kb for chest pain, palpitations, and edema, Respiratory: Negative for shortness of breath, cough, wheezing, and pleuritic chest pain, Abdomen/GI: Negative for abdominal pain, nausea, vomiting, diarrhea, and constipation, Back: Negative for injury and pain, : Negative for injury, bleeding, discharge, and swelling, MS/Extremity: Negative for injury and deformity, Neuro: Negative for headache, weakness, numbness, tingling, and seizure. 10:13 Skin: Positive for abscess, erythema, of the left labia majora and right hamstring. Exam: 10:13 Constitutional: This is a well developed, well nourished patient who is awake, alert, kb and in no acute distress. Head/Face: Normocephalic, atraumatic. Neck: Trachea midline, no thyromegaly or masses palpated, and no cervical lymphadenopathy. Supple, full range of motion without nuchal rigidity, or vertebral point tenderness. No Meningismus. Chest/axilla: Normal chest wall appearance and motion. Nontender with no deformity. No lesions are appreciated. Cardiovascular: Regular rate and rhythm with a normal S1 and S2. No gallops, murmurs, or rubs. Normal PMI, no JVD. No pulse deficits. Respiratory: Lungs have equal breath sounds bilaterally, clear to auscultation and percussion. No rales, rhonchi or wheezes noted. No increased work of breathing, no retractions or nasal flaring. Abdomen/GI: Soft, non-tender, with normal bowel sounds. No distension or tympany. No guarding or rebound. No evidence of tenderness throughout. MS/ Extremity: Pulses equal, no cyanosis. Neurovascular intact. Full, normal range of motion. Neuro: Awake and alert, GCS 15, oriented to person, place, time, and situation. Cranial nerves II-XII grossly intact. Motor strength 5/5 in all extremities. Sensory grossly intact. Cerebellar exam normal. Normal gait. 10:13 Skin: abscess, that is small, of the right hamstring, with induration. 10:15 Skin: abscess, that is small, of the left labia majora, with induration. kb Vital Signs: 09:40 BP 114 / 74; Pulse 93; Resp 18; Temp 98.3(O); Pulse Ox 100% on R/A; Weight 105.69 kg; em Height 5 ft. 3 in. (160.02 cm); Pain 5/10; 09:40 Body Mass Index 41.27 (105.69 kg, 160.02 cm) em MDM: 09:31 Patient medically screened. kb 10:15 Data reviewed: vital signs, nurses notes. Data interpreted: Pulse oximetry: on room air kb is 100 %. Interpretation: normal. Counseling: I had a detailed discussion with the patient and/or guardian regarding: the historical points, exam findings, and any diagnostic results supporting the discharge/admit diagnosis, the need for outpatient follow up, a family practitioner, a general surgeon, to return to the emergency department if symptoms worsen or persist or if there are any questions or concerns that arise at home. Administered Medications: 10:41 Drug: KeFLEX 500 mg Route: PO; em 10:42 Follow up: Response: Medication administered at discharge. em 10:41 Drug: Bactrim (160 mg-800 mg (DS) 1 tablet Route: PO; em 10:43 Follow up: Response: Medication administered at discharge. em Disposition: 05/15/18 10:18 Discharged to Home. Impression: Cutaneous abscess of right lower limb, Cutaneous abscess of groin - left labia. - Condition is Stable. - Discharge Instructions: Skin Abscess, Riqi-ia-Mldw. - Prescriptions for Keflex 500 mg Oral Capsule - take 1 capsule by ORAL route every 8 hours for 10 days; 30 capsule. Bactrim DS 800- 160 mg Oral Tablet - take 1 tablet by ORAL route every 12 hours for 10 days; 20 tablet. - Medication Reconciliation Form, Thank You Letter, Antibiotic Education, Prescription Opioid Use form. - Follow up: Emergency Department; When: As needed; Reason: Worsening of condition. Follow up: Private Physician; When: 2 - 3 days; Reason: Recheck today's complaints, Continuance of care, Re-evaluation by your physician. Addendum: 05/17/2018 07:32 Co-signature as Attending Physician, Bubba Nolan MD I agree with the assessment and c gill plan of care. Signatures: Puja Valencia, PALLIATIVE CARE SPECIALIST-C PALLIATIVE CARE SPECIALIST-Bubba Herrera MD MD cha Munoz, Edgar, BEFORE SCHOOL BEFORE SCHOOL em Corrections: (The following items were deleted from the chart) 05/15 10:42 10:18 05/15/2018 10:18 Discharged to Home. Impression: Cutaneous abscess of right lower em limb; Cutaneous abscess of groin - left labia. Condition is Stable. Forms are Medication Reconciliation Form, Thank You Letter, Antibiotic Education, Prescription Opioid Use. Follow up: Emergency Department; When: As needed; Reason: Worsening of condition. Follow up: Private Physician; When: 2 - 3 days; Reason: Recheck today's complaints, Continuance of care, Re-evaluation by your physician. kb
--- NOTE | 2018-05-15 10:18 | ER ---
Nurse's Notes [facility] Name: Stacy Islas Age: 27 yrs Sex: Female : 1990 Arrival Date: 05/15/2018 Time: 09:24 Bed 16 Private MD: Diagnosis: Cutaneous abscess of right lower limb;Cutaneous abscess of groin-left labia Presentation: 05/15 09:37 Presenting complaint: Patient states: reports spider bite that happened 3 days ago em behind right hamstring, also reports a bump on groin, denies fever. Transition of care: patient was not received from another setting of care. Onset of symptoms was May 12, 2018. Risk Assessment: Do you want to hurt yourself or someone else? Patient reports no desire to harm self or others. Initial Sepsis Screen: Does the patient meet any 2 criteria? No. Patient's initial sepsis screen is negative. Does the patient have a suspected source of infection? Yes: Skin breakdown/wound. Care prior to arrival: None. 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 - Social history:: Smoking status: Patient/guardian denies using tobacco. - Ebola Screening: : Patient negative for fever greater than or equal to 101.5 degrees Fahrenheit, and additional compatible Ebola Virus Disease symptoms Patient denies exposure to infectious person Patient denies travel to an Ebola-affected area in the 21 days before illness onset No symptoms or risks identified at this time. Screenin:42 Abuse screen: Denies threats or abuse. Nutritional screening: No deficits noted. em Tuberculosis screening: No symptoms or risk factors identified. Fall Risk None identified. Assessment: 09:40 General: Appears in no apparent distress. comfortable, Behavior is calm, cooperative, em Denies fever. Pain: Complains of pain in right hamstring Pain currently is 5 out of 10 on a pain scale. Quality of pain is described as sharp. Neuro: Level of Consciousness is awake, alert, obeys commands, Oriented to person, place, time, situation. Cardiovascular: Heart tones S1 S2 present Capillary refill < 3 seconds Patient's skin is warm and dry. Respiratory: Airway is patent Respiratory effort is even, unlabored, Respiratory pattern is regular, symmetrical. : Reports pain in suprapubic area. Derm: Skin is intact, is healthy with good turgor, Skin is pink, warm \T\ dry. Wound noted right hamstring Wound is about a 2 cm abscess noted. Musculoskeletal: Capillary refill < 3 seconds, Range of motion: intact in all extremities. 09:45 Reassessment: I agree with previous assessment. hb Vital Signs: 09:40 BP 114 / 74; Pulse 93; Resp 18; Temp 98.3(O); Pulse Ox 100% on R/A; Weight 105.69 kg; em Height 5 ft. 3 in. (160.02 cm); Pain 5/10; 09:40 Body Mass Index 41.27 (105.69 kg, 160.02 cm) em ED Course: 09:24 Patient arrived in ED. as 09:29 Garret Rayo LVN is Primary Nurse. em 09:30 Puja Valencia FNP-C is PHCP. kb 09:30 Bubba Nolan MD is Attending Physician. kb 09:40 Arm band placed on. em 09:42 Patient has correct armband on for positive identification. Placed in gown. Bed in low em position. Call light in reach. Adult w/ patient. Pulse ox on. NIBP on. 09:45 Triage completed. la1 10:42 No provider procedures requiring assistance completed. Patient did not have IV access em during this emergency room visit. Administered Medications: 10:41 Drug: KeFLEX 500 mg Route: PO; em 10:42 Follow up: Response: Medication administered at discharge. em 10:41 Drug: Bactrim (160 mg-800 mg (DS) 1 tablet Route: PO; em 10:43 Follow up: Response: Medication administered at discharge. em Outcome: 10:18 Discharge ordered by . kb 10:42 Discharged to home ambulatory. em 10:42 Condition: good 10:42 Discharge instructions given to patient, Instructed on discharge instructions, follow up and referral plans. medication usage, Demonstrated understanding of instructions, follow-up care, medications, wound care, Prescriptions given X 2. 10:42 Patient left the ED. em Signatures: Puaj Valencia, PRIMARY MONTESSORI TEACHER-C PRIMARY [place] TEACHER-CkGarret Pulido, CARBONATION TESTER CARBONATION TESTER Nayla López Lee, RN RN la1 Chrissie Salcedo, RN RN hb
[2018-05-15] MEDS ORDERED: CEPHALEXIN 250 MG CAP ONE (10:37)
[2018-05-15] MEDS ORDERED: SMZ./TMP. 800/160 MG TABLET ONE (10:38)
[2018-05-15 10:48] VITALS: BP 114/74; TEMP 98.3; O2SAT 100
== END 2018-05-15 10:42 | disposition home or self-care (01) ==
LOC: ER 09:22
DX: L02.415 Cutaneous abscess of right lower limb (principal); N76.4 Abscess of vulva; E11.9 Type 2 diabetes mellitus without complications
CPT/HCPCS: 99283

== ENCOUNTER 2018-08-03 23:06 | Emergency (ER) | payer SELFPAY ==
--- OUTSIDE RECORDS SUMMARY | 2018-08-03 23:09 | XMS REPORT ---
[...] Medications Results No Known Results Summary Purpose [employer] Submission
--- OUTSIDE RECORDS SUMMARY | 2018-08-03 23:09 | XMS REPORT ---
[...] May one Thin once 2017 Lisinopril ND 72095703523 20 MG Orally Active 1 tablet Once a day Loryna ND 03346420399 3-0.02 MG Orally Active 1 tablet Once a day Glucometer NDC 0 n/s n/s use as May Active one directed 2017 Alcohol Prep NDC 0 topical twice May Active as directed Pads daily 2017 Metformin HCl NDC 23771766557 500 MG Orally Active 1 tablet Twice a day with meals blood glucose NDC 0 n/s finger stick May Active one test strip once a day 2017 Results No Known Results Summary Purpose eClinicalWorks Submission
--- OUTSIDE RECORDS SUMMARY | 2018-08-03 23:09 | XMS REPORT ---
[...] End Status Dosage System Date Date Norethin [facility] 03892913017 1-20 MG-MCG(April Active 1 tablet Johnnie-Eth Orally Once a 2018 Estrad- day Lisinopril ND 27039183694 20 MG Orally Active 1 tablet Once a day Loryna [facility] 74946714690 3-0.02 MG Orally Active 1 tablet Once a day Lancets Super NDC 0 n/s finger stick May Active one Thin once 2017 Alcohol Prep NDC 0 topical twice May Active as directed Pads daily 2017 Metformin HCl ND 88026818110 500 MG Orally Active 1 tablet Twice a day with meals blood glucose NDC 0 n/s finger stick May Active one test strip once a day 2017 Results No Known Results Summary Purpose eClinicalWorks Submission
--- OUTSIDE RECORDS SUMMARY | 2018-08-03 23:09 | XMS REPORT ---
:1990 [facility] Address [address] [place] [address] Dr. Krishna [address] [place] [address] Care Team Providers Name Role Phone Unavailable Unavailable Unavailable Problems This patient has no known problems. Allergies, Adverse Reactions, Alerts This patient has no known allergies or adverse reactions. Medications This patient has no known medications.
--- OUTSIDE RECORDS SUMMARY | 2018-08-03 23:10 | XMS REPORT ---
[...] Active as directed Pads daily 2017 Lisinopril [facility] 10405565325 20 MG Orally Active 1 tablet Once a day Lancets Super NDC 0 n/s finger stick May Active one Thin once 2017 Norethin ND 44610974568 1-20 MG-MCG(24) April Active 1 tablet Johnnie-Eth Orally Once a 2018 Estrad- day Loryna ND 76996709024 3-0.02 MG Orally Active 1 tablet Once a day Metformin HCl ND 13635420026 500 MG Orally Active 1 tablet Twice a day with meals Results No Known Results Summary Purpose eClinicalWorks Submission
[2018-08-03 23:42] LABS: Urine Blood NEGATIVE (NEG); Urine Glucose NEGATIVE (NEG); Urine Protein 2+ (NEG); Urine Specific Gravity >1.030 (1.005-1.030); Urine pH 5.5 (5.0-7.0)
--- NOTE | 2018-08-04 00:55 | ER ---
Nurse's Notes [facility] Name: Stacy Islas Age: 27 yrs Sex: Female : 1990 Arrival Date: 08/03/2018 Time: 23:09 Bed 20 Private MD: Diagnosis: Lower abdominal pain, unspecified;Follicular cyst of ovary-bilateral Presentation: 08/03 23:15 Presenting complaint: Patient states: About 2 days ago I started having lower abdominal ed1 pain and now its moving up and its getting worse. Transition of care: patient was not received from another setting of care. Onset of symptoms was August 01, 2018. Risk Assessment: Do you want to hurt yourself or someone else? Patient reports no desire to harm self or others. Initial Sepsis Screen: Does the patient meet any 2 criteria? No. Patient's initial sepsis screen is negative. Does the patient have a suspected source of infection? No. Patient's initial sepsis screen is negative. Care prior to arrival: None. 23:15 Method Of Arrival: Ambulatory ed1 23:15 Acuity: VENTURA 3 ed1 Triage Assessment: 23:17 General: Appears in no apparent distress. Behavior is calm, cooperative. Pain: ed1 Complains of pain in abdomen Pain currently is 9 out of 10 on a pain scale. GI: Reports diarrhea. 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 - Social history:: Smoking status: Patient/guardian denies using tobacco. - Ebola Screening: : Patient negative for fever greater than or equal to 101.5 degrees Fahrenheit, and additional compatible Ebola Virus Disease symptoms Patient denies exposure to infectious person Patient denies travel to an Ebola-affected area in the 21 days before illness onset No symptoms or risks identified at this time. Screenin:23 Abuse screen: Denies threats or abuse. Denies injuries from another. Nutritional cc3 screening: No deficits noted. Tuberculosis screening: No symptoms or risk factors identified. Fall Risk Ambulatory Aid- None/Bed Rest/Nurse Assist (0 pts). Gait- Normal/Bed Rest/Wheelchair (0 pts) Mental Status- Oriented to own ability (0 pts). Assessment: 23:23 General: Appears in no apparent distress. uncomfortable, Behavior is calm, cooperative, cc3 appropriate for age. Pain: Complains of pain in abdomen and suprapubic area. Neuro: Level of Consciousness is awake, alert, obeys commands, Oriented to person, place, time, situation, Appropriate for age. Cardiovascular: Denies chest pain, Patient's skin is warm and dry. Respiratory: Airway is patent Respiratory effort is even, unlabored, Respiratory pattern is regular, symmetrical. GI: Bowel sounds present X 4 quads. Abd is soft Abdomen is tender to palpation in abdomen and suprapubic area. : No signs and/or symptoms were reported regarding the genitourinary system. EENT: No signs and/or symptoms were reported regarding the EENT system. Derm: Skin is intact, is healthy with good turgor, Skin is pink, warm \T\ dry. normal. Musculoskeletal: Circulation, motion, and sensation intact. Range of motion: intact in all extremities. 23:44 Reassessment: Patient appears in no apparent distress at this time. Patient and/or cc3 family updated on plan of care and expected duration. Pain level reassessed. Patient is alert, oriented x 3, equal unlabored respirations, skin warm/dry/pink. Patient taken by diesel technician to their department by wheelchair. 08/04 00:05 Reassessment: Patient appears in no apparent distress at this time. Patient and/or cc3 family updated on plan of care and expected duration. Pain level reassessed. Patient is alert, oriented x 3, equal unlabored respirations, skin warm/dry/pink. Patient came back from CT scan department, awaiting result. 01:00 Reassessment: Patient appears in no apparent distress at this time. Patient and/or cc3 family updated on plan of care and expected duration. Pain level reassessed. Patient is alert, oriented x 3, equal unlabored respirations, skin warm/dry/pink. BALANCE CLERK Teresa discharged the patient home with prescription given. No IV cannula in situ. Patient left ER vitally stable and ambulatory. Patient denies pain at this time. Patient states feeling better. Patient states symptoms have improved. Vital Signs: 08/03 23:17 BP 122 / 66; Pulse 87; Resp 16; Temp 97.8(O); Pulse Ox 99% on R/A; Weight 111.13 kg; ed1 Height 5 ft. 3 in. (160.02 cm); Pain 9/10; 08/04 00:25 BP 105 / 49; Pulse 84; Resp 16 S; Pulse Ox 99% on R/A; cc3 01:00 BP 116 / 60; Pulse 81; Resp 17 S; Pulse Ox 99% on R/A; cc3 08/03 23:17 Body Mass Index 43.40 (111.13 kg, 160.02 cm) ed1 ED Course: 08/03 23:09 Patient arrived in ED. ds1 23:15 Triage completed. ed1 23:17 Arm band placed on right wrist. ed1 23:23 Noemy Victor is Primary Nurse. cc3 23:23 Patient has correct armband on for positive identification. Bed in low position. Call cc3 light in reach. Side rails up X 1. Pulse ox on. NIBP on. 23:34 Teresa Garay FNP-C is PHCP. snw 23:34 Bubba Nolan MD is Attending Physician. snw 08/04 00:24 CT [facility] Protocol In Process Unspecified. EDMS 01:00 No provider procedures requiring assistance completed. Patient did not have IV access cc3 during this emergency room visit. Administered Medications: No medications were administered Outcome: 00:52 Discharge ordered by . snw 01:00 Discharged to home ambulatory. cc3 01:00 Condition: stable 01:00 Discharge instructions given to patient, Instructed on discharge instructions, follow up and referral plans. medication usage, Demonstrated understanding of instructions, follow-up care, medications, Prescriptions given X 1. 01:08 Patient left the ED. cc3 Signatures: Dispatcher [employer] EDOR Teresa Garay FNP-C FLYING SQUAD SALESPERSON-CsnYoselin Martinez ds1 Kiya Hickman, RN RN ed1 Noemy Victor cc3
--- NOTE | 2018-08-04 00:56 | EDPHYS ---
Physician Documentation [facility] Name: Stacy Islas Age: 27 yrs Sex: Female : 1990 Arrival Date: 08/03/2018 Time: 23:09 Bed 20 Private MD: ED Physician Bubba Nolan HPI: 08/04 00:56 This 27 yrs old Female presents to ER via Ambulatory with complaints of snw Abdominal Pain. 00:56 The patient presents with abdominal pain in the lower abdomen. Onset: The snw symptoms/episode began/occurred suddenly, 2 day(s) ago. The symptoms do not radiate. Associated signs and symptoms: Pertinent positives: diarrhea. The symptoms are described as achy. Severity of pain: At its worst the pain was moderate. It is unknown whether or not the patient has had similar symptoms in the past. It is unknown whether or not the patient has recently seen a physician. 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 - Social history:: Smoking status: Patient/guardian denies using tobacco. - Ebola Screening: : Patient negative for fever greater than or equal to 101.5 degrees Fahrenheit, and additional compatible Ebola Virus Disease symptoms Patient denies exposure to infectious person Patient denies travel to an Ebola-affected area in the 21 days before illness onset No symptoms or risks identified at this time. ROS: 08/04 00:50 Constitutional: Negative for fever, chills, and weight loss, Eyes: Negative for injury, snw pain, redness, and discharge, ENT: Negative for injury, pain, and discharge, Neck: Negative for injury, pain, and swelling, Cardiovascular: Negative for chest pain, palpitations, and edema, Respiratory: Negative for shortness of breath, cough, wheezing, and pleuritic chest pain, Back: Negative for injury and pain, : Negative for injury, bleeding, discharge, and swelling, MS/Extremity: Negative for injury and deformity, Skin: Negative for injury, rash, and discoloration, Neuro: Negative for headache, weakness, numbness, tingling, and seizure. Abdomen/GI: Positive for abdominal pain, diarrhea, Negative for nausea, vomiting. Exam: 00:50 Constitutional: This is a well developed, well nourished patient who is awake, alert, snw and in no acute distress. Head/Face: Normocephalic, atraumatic. Eyes: Pupils equal round and reactive to light, extra-ocular motions intact. Lids and lashes normal. Conjunctiva and sclera are non-icteric and not injected. Cornea within normal limits. Periorbital areas with no swelling, redness, or edema. ENT: Nares patent. No nasal discharge, no septal abnormalities noted. Tympanic membranes are normal and external auditory canals are clear. Oropharynx with no redness, swelling, or masses, exudates, or evidence of obstruction, uvula midline. Mucous membranes moist. Neck: Trachea midline, no thyromegaly or masses palpated, and no cervical lymphadenopathy. Supple, full range of motion without nuchal rigidity, or vertebral point tenderness. No Meningismus. Chest/axilla: Normal chest wall appearance and motion. Nontender with no deformity. No lesions are appreciated. Cardiovascular: Regular rate and rhythm with a normal S1 and S2. No gallops, murmurs, or rubs. Normal PMI, no JVD. No pulse deficits. Respiratory: Lungs have equal breath sounds bilaterally, clear to auscultation and percussion. No rales, rhonchi or wheezes noted. No increased work of breathing, no retractions or nasal flaring. Back: No spinal tenderness. No costovertebral tenderness. Full range of motion. Skin: Warm, dry with normal turgor. Normal color with no rashes, no lesions, and no evidence of cellulitis. MS/ Extremity: Pulses equal, no cyanosis. Neurovascular intact. Full, normal range of motion. Neuro: Awake and alert, GCS 15, oriented to person, place, time, and situation. Cranial nerves II-XII grossly intact. Motor strength 5/5 in all extremities. Sensory grossly intact. Cerebellar exam normal. Normal gait. Psych: Awake, alert, with orientation to person, place and time. Behavior, mood, and affect are within normal limits. 00:50 Abdomen/GI: Inspection: abdomen appears normal, obese Bowel sounds: normal, Palpation: moderate abdominal tenderness, in the umbilical area and suprapubic area. Vital Signs: 08/03 23:17 BP 122 / 66; Pulse 87; Resp 16; Temp 97.8(O); Pulse Ox 99% on R/A; Weight 111.13 kg; ed1 Height 5 ft. 3 in. (160.02 cm); Pain 9/10; 08/04 00:25 BP 105 / 49; Pulse 84; Resp 16 S; Pulse Ox 99% on R/A; cc3 01:00 BP 116 / 60; Pulse 81; Resp 17 S; Pulse Ox 99% on R/A; cc3 08/03 23:17 Body Mass Index 43.40 (111.13 kg, 160.02 cm) ed1 MDM: 08/03 23:39 Patient medically screened. ange 23:47 Data reviewed: vital signs, nurses notes. Data interpreted: Pulse oximetry: on room air snw is 99 %. Interpretation: normal. Counseling: I had a detailed discussion with the patient and/or guardian regarding: the historical points, exam findings, and any diagnostic results supporting the discharge/admit diagnosis, lab results, radiology results, the need for outpatient follow up. 08/04 00:55 Special discussion: Based on the patient's Hx, exam, and Dx evaluation, there is no snw indication for emergent surgery or inpatient Tx. It is understood by the patient/guardian that if the Sx's persist or worsen they need to return immediately for re-evaluation. Based on the history and exam findings, there is no indication for further emergent testing or inpatient evaluation. I discussed with the patient/guardian the need to see the OB Gyne specialist for further evaluation of the symptoms. 08/03 23:34 Order name: Urine Dipstick--Ancillary (enter results); Complete Time: 23:46 mw2 08/03 23:34 Order name: Urine --Ancillary (enter results); Complete Time: 23:46 mw2 08/03 23:35 Order name: CT Stone Protocol snw Administered Medications: No medications were administered Disposition: 06:53 Co-signature as Attending Physician, Bubba Nolan MD I agree with the assessment and ange plan of care. Disposition: 08/04/18 00:52 Discharged to Home. Impression: Lower abdominal pain, unspecified, Follicular cyst of ovary - bilateral. - Condition is Stable. - Discharge Instructions: Abdominal Pain, Adult, Ovarian Cyst. - Prescriptions for Mobic 7.5 mg Oral Tablet - take 1 tablet by ORAL route once daily take with food; 20 tablet. - Medication Reconciliation Form, Thank You Letter, Antibiotic Education, Prescription Opioid Use form. - Follow up: Private Physician; When: 2 - 3 days; Reason: Recheck today's complaints, Continuance of care, Re-evaluation by your physician. Follow up: Emergency Department; When: As needed; Reason: Worsening of condition. Signatures: Dispatcher [employer] EDMS Bubba Nolan, Teresa Cain MD, cha, QA ARCHITECT-C QA ARCHITECT-Csnw Kiya Hickman, RN RN ed1 Noemy Victor cc3 Corrections: (The following items were deleted from the chart) 01:08 00:52 08/04/2018 00:52 Discharged to Home. Impression: Lower abdominal pain, cc3 unspecified; Follicular cyst of ovary - bilateral. Condition is Stable. Forms are Medication Reconciliation Form, Thank You Letter, Antibiotic Education, Prescription Opioid Use. Follow up: Private Physician; When: 2 - 3 days; Reason: Recheck today's complaints, Continuance of care, Re-evaluation by your physician. Follow up: Emergency Department; When: As needed; Reason: Worsening of condition. snw
[2018-08-04 02:09] VITALS: TEMP 97.8; O2SAT 99
[2018-08-04 02:10] VITALS: BP 105/49
--- NOTE | 2018-08-04 11:08 | RAD REPORT ---
EXAM DESCRIPTION: CT Abdomen and Pelvis Without Intravenous Contrast CLINICAL HISTORY: The patient is 27 years old and is Female; ABD PAIN TECHNIQUE: Axial computed tomography images of the abdomen and pelvis without intravenous contrast. Sagittal and coronal reformatted images were created and reviewed. This CT exam was performed usi ng one or more of the following dose reduction techniques: automated exposure control, adjustment o f the mA and/or kV according to patient size, and/or use of iterative reconstruction technique. COMPARISON: CT abdomen and pelvis with IV contrast dated 04/09/2018. FINDINGS: LUNG BASES: Unremarkable. No mass. No consolidation. ABDOMEN: LIVER: Hepatic steatosis and hepatomegaly measuring 24.6 cm. GALLBLADDER AND BILE DUCTS: Gallbladder is contracted. No calcified stones. No ductal dilation. PANCREAS: Unremarkable. No ductal dilation. SPLEEN: Unremarkable. No splenomegaly. ADRENALS: Unremarkable. No mass. KIDNEYS AND URETERS: Unremarkable. No obstructing stones. No hydronephrosis. STOMACH AND BOWEL: Unremarkable. No obstruction. No mucosal thickening. PELVIS: APPENDIX: Prior appendectomy. BLADDER: The bladder is decompressed. No stones. REPRODUCTIVE: Partial evaluation of bilateral ovarian cysts measuring 4.3 cm on the right and 4.6 cm on the left. These findings appear slightly smaller when compared to prior exam. ABDOMEN and PELVIS: INTRAPERITONEAL SPACE: Unremarkable. No free air. No significant fluid collection. BONES/JOINTS: No acute fracture. No dislocation. SOFT TISSUES: Unremarkable. VASCULATURE: Unremarkable. No abdominal aortic aneurysm. LYMPH NODES: Unremarkable. No enlarged lymph nodes. IMPRESSION: 1. No acute abdominal abnormality. No obstructive uropathy. 2. Bilateral ovarian cysts measuring up to 4.6 cm and the left which appear slightly smaller when c ompared to prior examination. Recommend follow-up pelvic US in 6-12 weeks. Reference: J Am Kristopher [employer] l 2013;10:[id number]. 3. Hepatic steatosis and hepatomegaly. Electronically signed by: Yohannes Fabian DO 08/04/2018 12:22 AM CDT Due to temporary technical issues with the PACS/Fluency reporting system, reports are being signed by the in house radiologist as a courtesy to ensure prompt reporting. The interpreting radiologist is f ully responsible for the content of the report.
== END 2018-08-04 01:08 | disposition home or self-care (01) ==
LOC: ER 23:06
DX: N83.02 Follicular cyst of left ovary (principal); N83.01 Follicular cyst of right ovary; E11.9 Type 2 diabetes mellitus without complications; Z79.4 Long term (current) use of insulin
CPT/HCPCS: 74176; 76377; 81003; 81025; 99283

== ENCOUNTER 2018-09-27 20:14 | Emergency (ER) | payer SELFPAY ==
[2018-09-27 21:04] LABS: Absolute Lymphocytes (CBC) 1.6 K/uL (0.7-4.9); Basophils % 0.3 % (0-1.3); Hematocrit 33.5 % (36.0-45.0); Lymphocytes % 7.7 % (15.3-44.8); MPV 8.7 fL (7.6-11.3); RBC Red Blood Cell Count 4.11 M/uL (3.86-4.86)
[2018-09-27 21:26] LABS: Albumin 3.3 g/dL (3.4-5.0); Bilirubin Direct 0.2 mg/dL (0-0.2); Potassium 3.7 mmol/L (3.5-5.1); Protein, Total 9.3 g/dL (6.4-8.2)
[2018-09-27 21:36] LABS: Urine Blood NEGATIVE (NEG); Urine Glucose NEGATIVE (NEG); Urine Protein NEGATIVE (NEG)
[2018-09-27 21:41] LABS: Urine Bacteria 20-50 /HPF (<20); Urine Culture Reflex Order REFLEXED; Urine RBC <5 /HPF (NONE SEEN)
[2018-09-27] MEDS ORDERED: MORPHINE 4 MG/ML SYR ONE (21:43)
[2018-09-27 22:45] LABS: Blood Morphology Comment NOT SEEN (NOT SEEN); Platelet Estimate ADEQ
[2018-09-27] MEDS ORDERED: CEFOXITIN/SWI 1gm 1 GM/10 ML SYR ONE (22:48)
[2018-09-27] MEDS ORDERED: NA CHLORIDE 0.9% 1,000 ML ONE (22:48)
[2018-09-27] MEDS ORDERED: KETOROLAC 30 MG/ML INJ ONE (23:28)
[2018-09-28] MEDS ORDERED: METRONIDAZOLE 500mg IVPB 500 MG/100 ML BAG IV ONE (01:28)
--- NOTE | 2018-09-28 02:15 | ER ---
Nurse's Notes [facility] Name: Stacy Islas Age: 27 yrs Sex: Female : 1990 Arrival Date: 09/27/2018 Time: 20:17 Bed 5 Private MD: Diagnosis: Female pelvic inflammatory disease, unspecified;Other intra-abdominal and pelvic swelling, mass and lump-bilateral ovarian masses Presentation: 09/27 20:29 Presenting complaint: Patient states: right lower abd pain that radiates to right flank ak1 X2 days. pt c/o headache X2 days. Transition of care: patient was not received from another setting of care. Onset of symptoms is unknown. Risk Assessment: Do you want to hurt yourself or someone else? Patient reports no desire to harm self or others. Initial Sepsis Screen: Does the patient meet any 2 criteria? No. Patient's initial sepsis screen is negative. Does the patient have a suspected source of infection? No. Patient's initial sepsis screen is negative. Care prior to arrival: None. 20:29 Method Of Arrival: Ambulatory ak1 20:29 Acuity: VENTURA 3 ak1 Triage Assessment: 20:31 General: Appears in no apparent distress. Behavior is calm, cooperative. Pain: ak1 Complains of pain in abdomen. 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 - Social history:: Smoking status: Patient/guardian denies using tobacco. - Ebola Screening: : No symptoms or risks identified at this time. Screenin:32 Abuse screen: Denies threats or abuse. Denies injuries from another. Nutritional ak1 screening: No deficits noted. Tuberculosis screening: No symptoms or risk factors identified. Fall Risk None identified. Assessment: 20:50 General: Appears in no apparent distress. uncomfortable, Behavior is calm, cooperative, aj1 appropriate for age. Pain: Complains of pain in right lower quadrant Pain radiates to right low back. Neuro: Level of Consciousness is awake, alert, obeys commands, Oriented to person, place, time, situation. Cardiovascular: Patient's skin is warm and dry. Respiratory: Airway is patent Respiratory effort is even, unlabored, Respiratory pattern is regular, agonal. GI: Abdomen is non-distended, Bowel sounds present X 4 quads. Abd is soft X 4 quads Reports lower abdominal pain, nausea, Patient currently denies diarrhea, vomiting. : No signs and/or symptoms were reported regarding the genitourinary system. EENT: No signs and/or symptoms were reported regarding the EENT system. Derm: No signs and/or symptoms reported regarding the dermatologic system. Skin is pink, warm \T\ dry. normal. Musculoskeletal: No signs and/or symptoms reported regarding the musculoskeletal system. Circulation, motion, and sensation intact. 21:26 Reassessment: Patient appears in no apparent distress at this time. No changes from aj1 previously documented assessment. Patient and/or family updated on plan of care and expected duration. Pain level reassessed. Patient is alert, oriented x 3, equal unlabored respirations, skin warm/dry/pink. 21:45 Reassessment: Patient transported to CT via wheelchair. aj1 22:05 Reassessment: Patient returned to room. aj1 22:30 Reassessment: Patient appears in no apparent distress at this time. No changes from aj1 previously documented assessment. Patient and/or family updated on plan of care and expected duration. Pain level reassessed. Patient is alert, oriented x 3, equal unlabored respirations, skin warm/dry/pink. 09/28 00:00 Reassessment: Patient and/or family updated on plan of care and expected duration. Pain ea level reassessed. Patient is alert, oriented x 3, equal unlabored respirations, skin warm/dry/pink. 01:46 Reassessment: Patient and/or family updated on plan of care and expected duration. Pain ea level reassessed. Patient is alert, oriented x 3, equal unlabored respirations, skin warm/dry/pink. 02:38 Reassessment: Report given to Myrna AGUILAR at [facility]. ea 02:41 Reassessment: Patient and/or family updated on plan of care and expected duration. Pain ea level reassessed. Patient is alert, oriented x 3, equal unlabored respirations, skin warm/dry/pink. 03:09 Reassessment: Patient and/or family updated on plan of care and expected duration. Pain ea level reassessed. Patient is alert, oriented x 3, equal unlabored respirations, skin warm/dry/pink. [facility] at facility for transfer, report given to EMS. Pt left ED via stretcher per EMS. Pt tolerating well. Vital Signs: 09/27 20:31 BP 117 / 79; Pulse 106; Resp 16; Temp 99.3; Pulse Ox 99% on R/A; Weight 111.13 kg (R); ak1 Height 5 ft. 3 in. (160.02 cm) (R); Pain 10/10; 21:26 BP 102 / 56; Pulse 98; Resp 18; Pulse Ox 98% on R/A; aj1 21:45 BP 110 / 62; Pulse 101; Resp 18; Pulse Ox 97% ; aj1 22:21 BP 102 / 49; Pulse 97; Resp 18; Pulse Ox 97% on R/A; aj1 23:26 BP 115 / 67; Pulse 97; Resp 18; Pulse Ox 97% on R/A; aj1 09/28 00:53 BP 108 / 56; Pulse 90; Resp 16; Pulse Ox 99% on R/A; mt 01:45 BP 95 / 55; Pulse 79; Resp 18; Pulse Ox 100% on R/A; ea 02:30 BP 95 / 62; Pulse 80; Resp 18; Temp 98.6; Pulse Ox 99% on R/A; ea 09/27 20:31 Body Mass Index 43.40 (111.13 kg, 160.02 cm) ak1 ED Course: 09/27 20:17 Patient arrived in ED. cl3 20:30 Triage completed. ak1 20:31 Arm band placed on Patient placed in an exam room, on a stretcher, Patient notified of ak1 wait time. 20:32 Patient has correct armband on for positive identification. Bed in low position. Call ak1 light in reach. Side rails up X 1. 20:42 Jerry Santos MD is Attending Physician. gs 20:47 Marjorie Hopson, RN is Primary Nurse. aj1 20:50 No provider procedures requiring assistance completed. aj1 20:55 Radiology exam delayed due to lab results not completed at this time. (BUN/Creatinine) sj IV insertion attempt and/or patient not having appropriate IV at this time. 21:00 Initial lab(s) drawn, by me, sent to lab. Inserted saline lock: 20 gauge in right aj1 antecubital area, using aseptic technique. Blood collected. 21:28 Radiology exam delayed due to lab results not completed at this time. (BUN/Creatinine). 21:57 Bubba Hernandez PA is PHCP. cp 22:[address] via wheelchair. sd 22:13 CT completed. Patient tolerated procedure well. Patient moved back from CT. nj 22:39 CT Abd/Pelvis - IV Contrast Only In Process Unspecified. EDMS 23:15 Report given to JEFF Quiroz. aj 09/28 00:04 US Transvaginal Study (Probe) In Process Unspecified. EDMS 03:11 Patient transferred, IV remains in place. ea Administered Medications: 09/27 21:46 Drug: morphine 4 mg {Note: RASS score 0, patient is alert at this time.} Route: IVP; [facility] Site: right antecubital; 22:00 Follow up: Response: No adverse reaction; Pain is decreased ea 23:10 Drug: NS 0.9% 1000 ml Route: IV; Rate: 175 ml/hr; Site: right antecubital; ea 23:10 Drug: cefOXitin 1 grams Route: IVPB; Infused Over: 30 mins; Site: right antecubital; ea 23:30 Drug: TORadol 30 mg Route: IVP; Site: right antecubital; ea 09/28 01:45 Follow up: Response: No adverse reaction; Pain is decreased ea 01:35 Drug: Flagyl 500 mg Volume: 100 ml; Route: IVPB; Rate: 200 ml/hr; Infused Over: 30 ea mins; Site: right antecubital; Outcome: 02:14 ER care complete, transfer ordered by . cp 02:30 Instructed on the need for transfer. ea 03:11 Transferred by ground EMS to [facility], Transfer form ea completed. 03:11 Condition: stable 03:11 Patient left the ED. ea Signatures: Dispatcher [employer] EDMS Marjorie Hopson RN RN aj1 Joan Weiss Amber RN RN ak1 Bubba Hernandez PA PA cp Jordan, Nathan nj Thompson, Yee Hayes, Erica, RN RN Jerry Ahumada MD MD gs Lewis, Charde cl3
--- NOTE | 2018-09-28 02:16 | EDPHYS ---
Physician Documentation [facility] Name: Stacy Islas Age: 27 yrs Sex: Female : 1990 Arrival Date: 09/27/2018 Time: 20:17 Bed 5 Private MD: ED Physician Jerry Santos HPI: 09/27 21:51 This 27 yrs old Female presents to ER via Ambulatory with complaints of gs Abdominal Pain. 21:51 The patient presents with abdominal pain right lower quadrant. Onset: The gs symptoms/episode began/occurred yesterday. Onset: The symptoms/episode began/occurred acutely. The symptoms do not radiate. Associated signs and symptoms: Pertinent negatives: nausea and vomiting, fever. The symptoms are described as sharp. Modifying factors: The symptoms are alleviated by nothing, the symptoms are aggravated by movement. Severity of pain: At its worst the pain was severe in the emergency department the pain is unchanged. The patient has experienced a previous episode, TOA. 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 - Social history:: Smoking status: Patient/guardian denies using tobacco. - Ebola Screening: : No symptoms or risks identified at this time. ROS: 21:51 Constitutional: Negative for fever, poor PO intake. cp 21:51 Eyes: Negative for injury, pain, redness, and discharge. cp 21:51 ENT: Negative for drainage from ear(s), ear pain, sore throat, difficulty swallowing, difficulty handling secretions. 21:51 Cardiovascular: Negative for chest pain, palpitations. 21:51 Respiratory: Negative for cough, shortness of breath, wheezing. 21:51 Abdomen/GI: Positive for abdominal pain, of the right lower quadrant and left lower quadrant, Negative for vomiting, diarrhea, constipation, black/tarry stool, rectal bleeding. 21:51 Back: Negative for radiated pain. 21:51 : Positive for vaginal discharge, Negative for urinary symptoms. 21:51 Skin: Negative for rash. 21:51 Neuro: Negative for altered mental status, weakness. 21:51 All other systems are negative. Exam: 21:51 Head/Face: Normocephalic, atraumatic. Eyes: Pupils equal round and reactive to light, gs extra-ocular motions intact. Lids and lashes normal. Conjunctiva and sclera are non-icteric and not injected. Cornea within normal limits. Periorbital areas with no swelling, redness, or edema. ENT: Nares patent. No nasal discharge, no septal abnormalities noted. Tympanic membranes are normal and external auditory canals are clear. Oropharynx with no redness, swelling, or masses, exudates, or evidence of obstruction, uvula midline. Mucous membranes moist. Neck: Trachea midline, no thyromegaly or masses palpated, and no cervical lymphadenopathy. Supple, full range of motion without nuchal rigidity, or vertebral point tenderness. No Meningismus. Chest/axilla: Normal chest wall appearance and motion. Nontender with no deformity. No lesions are appreciated. 21:51 Respiratory: Lungs have equal breath sounds bilaterally, clear to auscultation and percussion. No rales, rhonchi or wheezes noted. No increased work of breathing, no retractions or nasal flaring. Back: No spinal tenderness. No costovertebral tenderness. Full range of motion. Skin: Warm, dry with normal turgor. Normal color with no rashes, no lesions, and no evidence of cellulitis. MS/ Extremity: Pulses equal, no cyanosis. Neurovascular intact. Full, normal range of motion. Neuro: Awake and alert, GCS 15, oriented to person, place, time, and situation. Cranial nerves II-XII grossly intact. Motor strength 5/5 in all extremities. Sensory grossly intact. Cerebellar exam normal. Normal gait. 21:51 Constitutional: The patient appears alert, awake. 21:51 Cardiovascular: Rate: tachycardic, Rhythm: regular, Pulses: no pulse deficits are appreciated. 21:51 Abdomen/GI: Palpation: moderate abdominal tenderness, in the right lower quadrant, rebound tenderness, is appreciated in the right lower quadrant. 08 00:45 : Pelvic Exam: External exam: is normal, Speculum exam: no bleeding is noted, cp bimanual exam reveals cervical motion tenderness, uterine tenderness, right adnexal tenderness, left adnexal tenderness, discharge, yellow, the vibration technician was present for the exam. Vital Signs: 09/27 20:31 BP 117 / 79; Pulse 106; Resp 16; Temp 99.3; Pulse Ox 99% on R/A; Weight 111.13 kg (R); ak1 Height 5 ft. 3 in. (160.02 cm) (R); Pain 10/10; 21:26 BP 102 / 56; Pulse 98; Resp 18; Pulse Ox 98% on R/A; aj1 21:45 BP 110 / 62; Pulse 101; Resp 18; Pulse Ox 97% ; aj1 22:21 BP 102 / 49; Pulse 97; Resp 18; Pulse Ox 97% on R/A; aj1 23:26 BP 115 / 67; Pulse 97; Resp 18; Pulse Ox 97% on R/A; aj1 09/28 00:53 BP 108 / 56; Pulse 90; Resp 16; Pulse Ox 99% on R/A; mt 01:45 BP 95 / 55; Pulse 79; Resp 18; Pulse Ox 100% on R/A; ea 02:30 BP 95 / 62; Pulse 80; Resp 18; Temp 98.6; Pulse Ox 99% on R/A; ea 09/27 20:31 Body Mass Index 43.40 (111.13 kg, 160.02 cm) ak1 MDM: 09/27 20:54 Patient medically screened. gs 21:51 Differential diagnosis: appendicitis, diverticulitis, Tubal Ovarian Abcess. Data gs reviewed: vital signs, nurses notes. Counseling: I had a detailed discussion with the patient and/or guardian regarding: the historical points, exam findings, and any diagnostic results supporting the discharge/admit diagnosis. 09/28 01:53 Physician consultation: Sushma Torres MD was contacted at 01:45, regarding cp admission, patient's condition, after a discussion of the case, a recommendation for transfer for higher level of care is made, for interventional radiology evaluation. 09/27 20:47 Order name: Urine Microscopic Only; Complete Time: 21:42 09/28 01:52 Interpretation: Normal except: UBACT 20-50. cp 09/27 20:47 Order name: Basic Metabolic Panel; Complete Time: 21:42 09/27 22:08 Interpretation: Normal except: GLUC 122; GFR 81. cp 09/27 20:47 Order name: CBC with Diff; Complete Time: 23:19 09/27 22:01 Interpretation: Normal except: WBC 20.4; HGB 10.9; HCT 33.5; MCV 81.5; MCH 26.5; RDW cp 15.6; KALANI% 84.4; LYM% 7.7; NEUT A 17.2; MNA 1.5. 09/27 20:47 Order name: Hepatic Function; Complete Time: 21:42 09/27 20:47 Order name: Lipase; Complete Time: 21:42 09/27 21:24 Order name: Urine Dipstick--Ancillary (enter results); Complete Time: 21:42 cm6 09/27 20:47 Order name: CT Abd/Pelvis - IV Contrast Only; Complete Time: 15:04 09/27 21:24 Order name: Urine --Ancillary (enter results); Complete Time: 21:42 cm6 09/27 21:43 Order name: Urine Culture EDNE 09/27 22:00 Order name: US Transvaginal Study (Probe); Complete Time: 15:04 09/27 22:46 Order name: Manual Differential; Complete Time: 23:19 EDNE 09/27 23:29 Order name: GC (GONORR/CHLAMYDIA) Probe 09/27 23:29 Order name: Wet Prep; Complete Time: 00:58 09/27 20:47 Order name: Urine Test (obtain specimen); Complete Time: 01:45 09/27 20:47 Order name: Urine Dipstick-Ancillary (obtain specimen); Complete Time: 01:45 09/27 20:47 Order name: IV Saline Lock; Complete Time: 21:01 09/27 20:47 Order name: Labs collected and sent; Complete Time: 21:01 09/27 23:22 Order name: Pelvic Exam Setup; Complete Time: 23:41 cp Administered Medications: 09/27 21:46 Drug: morphine 4 mg {Note: RASS score 0, patient is alert at this time.} Route: IVP; aj1 Site: right antecubital; 22:00 Follow up: Response: No adverse reaction; Pain is decreased ea 23:10 Drug: NS 0.9% 1000 ml Route: IV; Rate: 175 ml/hr; Site: right antecubital; ea 23:10 Drug: cefOXitin 1 grams Route: IVPB; Infused Over: 30 mins; Site: right antecubital; ea 23:30 Drug: TORadol 30 mg Route: IVP; Site: right antecubital; ea 09/28 01:45 Follow up: Response: No adverse reaction; Pain is decreased ea 01:35 Drug: Flagyl 500 mg Volume: 100 ml; Route: IVPB; Rate: 200 ml/hr; Infused Over: 30 ea mins; Site: right antecubital; Disposition: 03:15 Chart complete. cp 15:40 Co-signature as Attending Physician, Jerry Santos MD. gs Disposition: 09/28/18 02:14 Transfer ordered to [facility]. Diagnosis are Female pelvic inflammatory disease, unspecified, Other intra-abdominal and pelvic swelling, mass and lump - bilateral ovarian masses. - Reason for transfer: Higher level of care. - Accepting physician is Shiva. - Condition is Stable. - Problem is new. - Symptoms have improved. Signatures: Dispatcher [employer] [facility] Marjorie Hopson RN RN aj1 Celina Ruth RN RN ak1 Bubba Hernandez PA PA cp Erica Hayes RN RN ea Starr, Gregory, MD MD Corrections: (The following items were deleted from the chart) 09/27 22:01 22:01 Normal except: WBC 20.4; HGB 10.9; HCT 33.5; MCV 81.5; MCH 26.5; RDW 15.6; KALANI% cp 84.4; LYM% 7.7; NEUT A 17.2. 09/28 00:04 09/27 23:23 Transvaginal Study (Probe)+[email or web address] ordered. [facility] 09/28 03:11 02:14 09/28/2018 02:14 Transfer ordered to [facility]. Diagnosis is Female pelvic ea inflammatory disease, unspecified; Other intra-abdominal and pelvic swelling, mass and lump - bilateral ovarian masses. Reason for transfer: Higher level of care. Accepting physician is Shiva. Condition is Stable. Problem is new. Symptoms have improved. cp 04:09 09/27 21:51 All other systems are negative, cp
[2018-09-28 03:46] VITALS: O2SAT 99
[2018-09-28 03:51] VITALS: BP 95/62; TEMP 98.6
--- NOTE | 2018-09-28 08:33 | RAD REPORT ---
EXAM DESCRIPTION: US - Transvaginal Study Probe - 09/28/2018 12:00 am CLINICAL HISTORY: lower abdomen pain Pelvic pain. COMPARISON: Transvaginal Study Probe dated 04/09/2018 FINDINGS: The uterus is normal in size, shape and echotexture. The uterus measures 10.8 x 4.8 x 4.4 cm. The endometrial stripe is within normal limits. Both ovaries are enlarged and contain multiple hemorrhagic or cystic areas. Normal Doppler blood flow was demonstrated to both ovaries. No significant pelvic ascites. IMPRESSION: Enlarged bilateral ovaries with multiple hemorrhagic and cystic areas.No torsion finding s.
--- NOTE | 2018-09-28 09:38 | RAD REPORT ---
EXAM DESCRIPTION: Abdomen Pelvis W Contrast CLINICAL HISTORY: Abdominal pain. TECHNIQUE: CT scan of the abdomen and pelvis was performed with intravenous contrast. 5 mm arterial phase axial images of the abdomen were obtained. 5 mm venous phase axial images of the abdomen and pelvis were obtained along with coronal and sagitta l reformatted images. DOSE OPTIMIZATION: This facility uses dose optimization techniques as appropriate to perform exams, including at least one of the following techniques: 1. Automated exposure control. 2. Adjustment of the mA and/or kV according to patient size (this includes techniques or standardized protocols for targeted exams where dose is matched to the indication/reason for exam, i.e. extremiti es or head). 3. Use of iterative reconstructive technique. INTRAVENOUS CONTRAST: Not documented. Please refer to medical record COMPARISON: 08/03/2018. FINDINGS: Lung Bases: Normal. Liver: There is hepatomegaly with diffuse fatty liver infiltration. Spleen: Normal. Pancreas: Normal. Gallbladder: Normal. Adrenal Glands: Normal. Kidneys: Normal. Retroperitoneal Structures: There are mildly prominent retroperitoneal nodes the left periaortic space, stable. The largest lymph node measures 1.8 x 1.2 cm. Bowel Survey: There is increased stool within the ascending and transverse colon. The distal ileum is unremarkable. An appendiceal stump remains from previous appendectomy. Uterus and Adnexa: There is gross enlargement of the ovaries bilaterally containing multiple irregular fluid collections on the right and a circumscribed fluid collection on the left. Differential would include ovarian cysts, endometriomas, and abscesses. The right ovary measures 9.3 x [address] 7.1 cm. The left ovary measures 5.8 x 5.2 x 7.5 cm. Urinary Bladder: Normal. Peritoneal Cavity: Normal. Mesenteric Structures: Normal. Abdominal Wall: No hernia. Bony Structures: No suspicious lesions. IMPRESSION: 1. Bilateral ovarian enlargement with multiple loculated fluid collection right more sev ere than left. Considerations would include ovarian cyst, endometriomas, or abscesses. 2. Mildly prominent retroperitoneal lymph nodes, stable. 3. Hepatomegaly with diffuse fatty liver infiltration. Electronically signed by: Anjel Tamayo MD 09/27/2018 10:57 PM CDT Due to temporary technical issues with the PACS/Fluency reporting system, reports are being signed by the in house radiologist as a courtesy to ensure prompt reporting. The interpreting radiologist is f ully responsible for the content of the report.
== END 2018-09-28 03:11 | disposition short-term general hospital (02) ==
LOC: ER 20:14
DX: N73.9 Female pelvic inflammatory disease, unspecified (principal); N83.9 Noninflammatory disorder of ovary, fallopian tube and broad ligament, unspecified; R19.00 Intra-abdominal and pelvic swelling, mass and lump, unspecified site; E11.9 Type 2 diabetes mellitus without complications; Z79.4 Long term (current) use of insulin
CPT/HCPCS: 36415; 74177; 76830; 80048; 80076; 81003; 81015; 81025; 83690; 85025; 87086; 87088; 87210; 87490; 87590; 96374; 96375; 99285; J7030; Q9967

== ENCOUNTER 2018-12-14 16:15 | Emergency (ER) | payer SELFPAY ==
[2018-12-14 18:40] LABS: Urine Blood NEGATIVE (NEG); Urine Glucose 2+ (NEG); Urine Protein 1+ (NEG); Urine Specific Gravity >1.030 (1.005-1.030); Urine pH 5.5 (5.0-7.0)
[2018-12-14] MEDS ORDERED: NA CHLORIDE 0.9% 0 ML ONE (18:46)
[2018-12-14] MEDS ORDERED: ONDANSETRON 4 MG/2 ML VIAL ONE (18:46)
[2018-12-14] MEDS ORDERED: KETOROLAC 30 MG/ML INJ ONE (18:46)
[2018-12-14 18:50] LABS: Urine RBC <5 /HPF (NONE SEEN)
[2018-12-14 18:51] LABS: Urine Bacteria 20-50 /HPF (<20); Urine Culture Reflex Order NOT NEEDED; Urine Mucus SLIGHT /HPF (NONE SEEN)
[2018-12-14 18:55] LABS: Basophils % 0.7 % (0-1.3); Hematocrit 36.4 % (36.0-45.0); MPV 9.2 fL (7.6-11.3); RBC Red Blood Cell Count 4.67 M/uL (3.86-4.86)
[2018-12-14 19:13] LABS: Albumin 3.4 g/dL (3.4-5.0); Bilirubin Direct 0.2 mg/dL (0-0.2); Bilirubin Total 0.7 mg/dL (0.2-1.0); Potassium 3.9 mmol/L (3.5-5.1); Protein, Total 8.9 g/dL (6.4-8.2)
--- NOTE | 2018-12-14 19:55 | RAD REPORT ---
EXAM DESCRIPTION: CT - Abdomen Pelvis W Contrast - 12/14/2018 7:34 pm CLINICAL HISTORY: ABD PAIN COMPARISON: Pelvic ultrasound September 2018, CT study September 2018 CT study April 2018 TECHNIQUE: Biphasic, helical CT imaging of the abdomen and pelvis was performed following 100 ml non -ionic IV contrast. No oral contrast. All CT scans are performed using dose optimization technique as appropriate and may include automated exposure control or mA/KV adjustment according to patient size. FINDINGS: No suspicious findings in the lung bases. Mild diffuse fatty infiltration present in the liver. No focal liver lesion. Spleen and pancreas show no suspicious findings. Gallbladder and biliary tree are also without suspicious finding. Symmetric renal function is seen with no hydronephrosis or suspicious renal mass. No pyelonephritis o r acute parenchymal process. Contracted urinary bladder shows no suspicious finding. No adrenal abnor malities. No gastric dilatation or gastric wall thickening. No acute small bowel finding identifiable. The ovaries are abnormal. Bilateral ovarian/adnexal masses are present 8 cm on the right and 5 cm on the left. These ovarian/adnexal masses contain multiple cystic components. Air-fluid levels are prese nt within both of these structures. Similar complex cystic masses were present in the ovaries on the September 2018 study. The air densities within these masses are new. No clearly dilated or tortuous fall opian tubes seen. A left adnexal mass abuts the sigmoid colon and there is some secondary wall thicke nahed and stranding of the colon. No extraluminal free air. No free fluid. Numerous small aorto iliac lymph nodes are present. Pattern is similar to the September examination. No hernia or omental thickening. No suspicious bony findings. IMPRESSION: Large complex multi cystic ovarian/adnexal masses are present. These have been present o n the [address]. Current exam shows several new air densities within the cystic adnexal masses suspicious for abscess formation within 1 or more of the cystic masses of each ovary. Mild secondary infectious/ inflammatory changes of the proximal sigmoid colon. Bowel loops abut the complex ovarian/ adnexal masses. No definitive evidence for fistula though this would be a differential consideration for the presence of air now within the ovarian/adnexal masses. Multiple aortoiliac lymph nodes similar to the September 2018 study.
[2018-12-14] MEDS ORDERED: NA CHLORIDE 0.9% 250 ML ONE (20:36)
[2018-12-14] MEDS ORDERED: METRONIDAZOLE 500mg IVPB 500 MG/100 ML BAG IV ONE (20:36)
[2018-12-14] MEDS ORDERED: NA CHLORIDE 0.9% 1,000 ML ONE (20:36)
[2018-12-14] MEDS ORDERED: VANCOMYCIN 1 GM/VIAL ONE (20:36)
--- NOTE | 2018-12-14 21:42 | EDPHYS ---
Physician Documentation [facility] Name: Stacy Islas Age: 28 yrs Sex: Female : 1990 Arrival Date: 12/14/2018 Time: 16:19 Bed 19 Private MD: None, None ED Physician Renan Fisher HPI: 12/14 19:16 This 28 yrs old Female presents to ER via Ambulatory with complaints of wa Abdominal Pain. 19:16 The patient presents with abdominal pain that is diffuse. Onset: The symptoms/episode wa began/occurred 3 day(s) ago. The symptoms do not radiate. 19:17 Associated signs and symptoms: Pertinent negatives: diarrhea, fever, vomiting. The wa symptoms are described as achy, constant. Modifying factors: The symptoms are alleviated by nothing, the symptoms are aggravated by nothing. Severity of pain: At its worst the pain was moderate in the emergency department the pain is actually worse moderately. The patient has experienced a previous episode, approximately 2 years ago, states dx'd with ovarian abscesses at the time. The patient has not recently seen a physician. 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 - Social history:: Smoking status: Patient/guardian denies using tobacco. - Ebola Screening: : No symptoms or risks identified at this time. - Family history:: not pertinent. - Hospitalizations: : No recent hospitalization is reported. ROS: 19:19 Constitutional: Negative for fever, chills, and weight loss, Eyes: Negative for injury, wa pain, redness, and discharge, ENT: Negative for injury, pain, and discharge, Neck: Negative for injury, pain, and swelling, Cardiovascular: Negative for chest pain, palpitations, and edema, Respiratory: Negative for shortness of breath, cough, wheezing, and pleuritic chest pain, Back: Negative for injury and pain, : Negative for injury, bleeding, discharge, and swelling, MS/Extremity: Negative for injury and deformity, Skin: Negative for injury, rash, and discoloration, Neuro: Negative for headache, weakness, numbness, tingling, and seizure, Psych: Negative for depression, anxiety, suicide ideation, homicidal ideation, and hallucinations. 19:19 All other systems are negative. 19:20 Abdomen/GI: Positive for abdominal pain, nausea, Negative for vomiting, diarrhea. wa Exam: 19:21 Constitutional: This is a well developed, well nourished patient who is awake, alert, wa and in no acute distress. Head/Face: Normocephalic, atraumatic. Eyes: Pupils equal round and reactive to light, extra-ocular motions intact. Lids and lashes normal. Conjunctiva and sclera are non-icteric and not injected. Cornea within normal limits. Periorbital areas with no swelling, redness, or edema. ENT: Nares patent. No nasal discharge, no septal abnormalities noted. Tympanic membranes are normal and external auditory canals are clear. Oropharynx with no redness, swelling, or masses, exudates, or evidence of obstruction, uvula midline. Mucous membranes moist. Neck: Trachea midline, no thyromegaly or masses palpated, and no cervical lymphadenopathy. Supple, full range of motion without nuchal rigidity, or vertebral point tenderness. No Meningismus. Chest/axilla: Normal chest wall appearance and motion. Nontender with no deformity. No lesions are appreciated. Cardiovascular: Regular rate and rhythm with a normal S1 and S2. No gallops, murmurs, or rubs. Normal PMI, no JVD. No pulse deficits. Respiratory: Lungs have equal breath sounds bilaterally, clear to auscultation and percussion. No rales, rhonchi or wheezes noted. No increased work of breathing, no retractions or nasal flaring. Back: No spinal tenderness. No costovertebral tenderness. Full range of motion. Skin: Warm, dry with normal turgor. Normal color with no rashes, no lesions, and no evidence of cellulitis. MS/ Extremity: Pulses equal, no cyanosis. Neurovascular intact. Full, normal range of motion. Neuro: Awake and alert, GCS 15, oriented to person, place, time, and situation. Cranial nerves II-XII grossly intact. Motor strength 5/5 in all extremities. Sensory grossly intact. Cerebellar exam normal. Normal gait. Psych: Awake, alert, with orientation to person, place and time. Behavior, mood, and affect are within normal limits. 19:21 Abdomen/GI: Inspection: abdomen appears normal, Bowel sounds: normal, Palpation: soft, in all quadrants, moderate abdominal tenderness, in the epigastric area, umbilical area, right lower quadrant and left lower quadrant. Vital Signs: 16:26 BP 142 / 78; Pulse 84; Resp 16; Temp 98.9; Pulse Ox 100% on R/A; Weight 117.93 kg; hb Height 5 ft. 3 in. (160.02 cm); Pain 9/10; 18:05 BP 121 / 80; Pulse 81; Resp 16 S; Pulse Ox 100% on R/A; ca1 19:12 BP 121 / 80; Pulse 84; Resp 16; Pulse Ox 99% on R/A; wh 20:48 BP 110 / 53; Pulse 87; Resp 18; Pulse Ox 100% on R/A; wh 22:00 BP 115 / 64; Pulse 71; Resp 18; Pulse Ox 99% ; wh 22:00 BP 106 / 60; Pulse 71; Resp 18; Pulse Ox 100% on R/A; wh 11 00:05 BP 118 / 78; Pulse 72; Resp 18; Pulse Ox 100% on R/A; wh 12/14 16:26 Body Mass Index 46.06 (117.93 kg, 160.02 cm) hb MDM: 12/14 18:13 Patient medically screened. ok 19:22 Differential diagnosis: bowel obstruction, diverticulitis, Endometriosis, Ovarian wa Torsion, Pyelonephritis, Tubal Ovarian Abcess, urinary tract infection. 19:24 Data reviewed: vital signs, nurses notes. Test interpretation: by ED physician or ok midlevel provider: labs noted for hyperglycemia, glucosuria, ketonuria and proteinuria. 20:52 Test interpretation: by ED physician or midlevel provider: labs noted for ok hyperglycemia. glucosuria. CT noted for bilateral large complex cystic ovarian masses with air densities within cystic adnexal masses suspicious for abscess within 1 or more of the cystic masses of each ovary. Response to treatment: the patient's symptoms have mildly improved after treatment. ED course: abx given IV. pt advises this is the 4th episode of same. drained at [facility] via IR the past 2 times. pt does not want to go to [facility]. will transfer for definitive care. 21:36 Physician consultation:. Special discussion: spoke with PARTS CLEANER alyssa Weir at [facility]. accepted pt for gisela munoz. will effect transfer. 12/14 17:00 Order name: Urine Culture replaced by [facility] 12/14 17:00 Order name: Urine Microscopic Only; Complete Time: 19:15 replaced by [facility] 12/14 18:15 Order name: Glucose, Ancillary Testing; Complete Time: 19:15 EDMS 12/14 18:30 Order name: Urine Dipstick--Ancillary (enter results); Complete Time: 19:15 12/14 18:30 Order name: Urine --Ancillary (enter results); Complete Time: 19:16 12/14 18:30 Order name: Basic Metabolic Panel; Complete Time: 19:15 ok 12/14 18:30 Order name: CBC with Diff; Complete Time: 19:16 ok 12/14 18:30 Order name: Hepatic Function; Complete Time: 19:16 ok 12/14 18:30 Order name: Lipase; Complete Time: 19:16 ok 12/14 18:31 Order name: CT Abd/Pelvis - IV Contrast Only; Complete Time: 20:05 ok 12/14 17:00 Order name: Urine Test (obtain specimen); Complete Time: 18:27 replaced by [facility] 12/14 17:00 Order name: Urine Dipstick-Ancillary (obtain specimen); Complete Time: 18:27 replaced by [facility] 12/14 17:00 Order name: FSBS; Complete Time: 18:02 replaced by [facility] 12/14 18:30 Order name: IV Saline Lock; Complete Time: 18:50 ok 12/14 18:30 Order name: Labs collected and sent; Complete Time: 18:50 ok Administered Medications: 18:30 Drug: NS 0.9% 1000 ml Route: IV; Rate: 1 bolus; Site: right antecubital; ca1 12/15 00:08 Follow up: Response: No adverse reaction; IV Status: Completed infusion 12/14 18:31 Drug: Zofran 4 mg Route: IVP; Site: right antecubital; ca1 20:33 Follow up: Response: No adverse reaction; Nausea is decreased wh 18:35 Drug: TORadol 30 mg Route: IVP; Site: right antecubital; ca1 20:33 Follow up: Response: No adverse reaction; Pain is decreased wh 20:43 Drug: Flagyl 500 mg Volume: 100 ml; Route: IVPB; Rate: 200 ml/hr; Infused Over: 30 wh mins; Site: right antecubital; 12/15 00:06 Follow up: Response: No adverse reaction; IV Status: Completed infusion 12/14 21:15 Drug: vancoMYCIN 1 grams Route: IVPB; Infused Over: 2 hrs; Site: right antecubital; 12/15 00:06 Follow up: Response: No adverse reaction; IV Status: Completed infusion Disposition: 12/14/18 21:40 Transfer ordered to [facility]. Diagnosis are acute abdominal pain, polycistic ovarian abscesses, colitis of the sigmoid colon. - Reason for transfer: Higher level of care. - Accepting physician is Dr. Destin Vicente [facility]. - Condition is Stable. - Problem is an acute exacerbation. - Symptoms have improved. Signatures: Dispatcher [employer] EDMS Teresa Garay, SHAKE FEEDER-C SHAKE FEEDER-Csnw Chrissie Salcedo RN RN Elieser Hermosillo Renan Fisher MD MD ok Silvia Rodriguez RN RN ca1 Corrections: (The following items were deleted from the chart) 00:10 12/14 21:40 12/14/2018 21:40 Transfer ordered to [facility]. Diagnosis is acute abdominal pain; polycistic ovarian abscesses; colitis of the sigmoid colon. Reason for transfer: Higher level of care. Accepting physician is Dr. Destin Varma. Condition is Stable. Problem is an acute exacerbation. Symptoms have improved. leonid
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
[2018-12-15 02:29] VITALS: TEMP 98.9
[2018-12-15 02:33] VITALS: O2SAT 100
[2018-12-15 02:35] VITALS: BP 118/78
--- OUTSIDE RECORDS SUMMARY | 2018-12-20 00:03 | XMS REPORT ---
[...] May one Thin once 2017 Lisinopril ND [id number] 20 MG Orally Active 1 tablet Once a day Loryna ND 54659303908 3-0.02 MG Orally Active 1 tablet Once a day Glucometer NDC 0 n/s n/s use as May Active one directed 2017 Alcohol Prep NDC 0 topical twice May Active as directed Pads daily 2017 Metformin HCl NDC [id number] 500 MG Orally Active 1 tablet Twice a day with meals blood glucose NDC 0 n/s finger stick May Active one test strip once a day 2017 Results No Known Results Summary Purpose eClinicalWorks Submission
--- OUTSIDE RECORDS SUMMARY | 2018-12-20 00:03 | XMS REPORT ---
:1990 [facility] [address] [place] [address] Care Team Providers Name Role Phone Unavailable Unavailable Unavailable Payers Payer Name Policy Type Policy Number Effective Date Expiration Date Problems This patient has no known problems. Allergies, Adverse Reactions, Alerts Allergy Name Allergy Status Severity Reaction(s) Onset Inactive Treating Comments Type Date Date Clinician Penicillins DA Active U 2018-12 00:00:0 0 tazobactam DA Active U 2018-12 00:00:0 0 piperacillin DA Active U 2018-12 00:00:0 0 Medications This patient has no known medications. Results Test Description Test Time Test Comments Text Results Atomic Results Result Comments GLUBED 2018-12-19 18:27:00 Test Item Value Reference Range Comments GLUBED (test code=GLUBED) 144 mg/dL 65-110 [id number] 12:13:00 Test Item Value Reference Range Comments GLUBED (test code=GLUBED) 126 mg/dL 65-110 [id number] 08:47:00 Test Item Value Reference Range Comments MAGNESIUM (test code=MAG) 1.8 mg/dL 1.8-2.4 Comments to Immunology Specialist: DO ON BLOOD IN LAB-- DRAWN THIS AMSpecimen Comment: BLOOD IN LAB.CHEMISTRY 7 [id number] 05:19:00 Test Item Value Reference Range Comments SODIUM (test code=NA) 141 mEq/L 135-145 POTASSIUM (test code=K) 3.6 mEq/L 3.5-5.0 CHLORIDE (test code=CL) 108 mEq/L 100-115 CARBON DIOXIDE (test code=CO2) 27 mEq/L 22-31 ANION GAP (test code=GAP) 9.80 10-20 GLUCOSE (test code=GLU) 169 mg/dL 65-110 BLOOD UREA NITROGEN (test code=BUN) 4 mg/dL 7-18 GLOMERULAR FILTRATION RATE (test code=GFR) 98 ml/min >60 CREATININE (test code=CREAT) 0.7 mg/dL 0.5-1.0 CALCIUM (test code=CA) 7.5 mg/dL 8.4-10.2 CBC W/AUTO [id number] 05:06:00 Test Item Value Reference Range Comments WHITE BLOOD CELL (test code=WBC) 15.2 K/mm3 6.6-12.1 RED BLOOD CELL (test code=RBC) 3.66 M/mm3 3.45-5.01 HEMOGLOBIN (test code=HGB) 9.8 g/dL 10.7-13.9 HEMATOCRIT (test code=HCT) 31.4 % 32.1-42.1 MEAN CELL VOLUME (test code=MCV) 86 fL 84.1-94.8 MEAN CELL HGB (test code=MCH) 26.8 pg 27-35 MEAN CELL HGB CONCETRATION (test code=MCHC) 31.2 gm/dL 32.2-34.1 RED CELL DISTRIBUTION WIDTH (test code=RDW) 15.0 % 12.4-16.5 PLATELET COUNT (test code=PLT) 264 K/mm3 133-385 IMMATURE PLATELET FRACTION (test code=IPF) 0.0 % 0.0-10.8 MEAN PLATELET VOLUME (test code=MPV) 10.2 fl 9.1-12.7 NEUTROPHIL % (test code=NT%) 75.6 % 56.5-79.4 LYMPHOCYTE % (test code=LY%) 14.0 % 14.3-34.3 MONOCYTE % (test code=MO%) 8.3 % 5.1-10.4 EOSINOPHIL % (test code=EO%) 1.1 % 0.1-3.0 BASOPHIL % (test code=BA%) 0.4 % 0.1-1.0 NEUTROPHIL # (test code=NT#) 11.5 K/mm3 LYMPHOCYTE # (test code=LY#) 2.1 K/mm3 MONOCYTE # (test code=MO#) 1.3 K/mm3 EOSINOPHIL # (test code=EO#) 0.16 K/mm3 BASOPHIL # (test code=BA#) 0.1 K/mm3 RBC MORPHOLOGY REQUIRED (test code=RBCM) NORMAL NORMAL PLATELET MORPHOLOGY REQUIRED (test code=PLTMR) NORMAL NORMAL [id number] 00:47:00 Test Item Value Reference Range Comments GLUBED (test code=GLUBED) 159 mg/dL 65-110 [id number] 21:14:00 Test Item Value Reference Range Comments C-PEPTIDE (test code=CPEP) 2.9 ng/mL 1.1-4.4 C-Peptide reference interval is for fasting patients.Performed At: [facility] [id number] Rosa MD Ph:[phone] [id number] 21:14:00 Test Item Value Reference Range Comments INSULIN (test code=INS) 22.1 uIU/mL 2.6-24.9 Performed At: [facility] [address] [id number] Rosa MD Ph:[phone] [id number] 18:25:00 Test Item Value Reference Range Comments GLUBED (test code=GLUBED) 134 mg/dL 65-110 [id number] 12:38:00 Test Item Value Reference Range Comments GLUBED (test code=GLUBED) 137 mg/dL 65-110 COMPREHENSIVE METABOLIC [id number] 05:57:00 Test Item Value Reference Range Comments SODIUM (test code=NA) 137 mEq/L 135-145 POTASSIUM (test code=K) 4.5 mEq/L 3.5-5.0 CHLORIDE (test code=CL) 106 mEq/L 100-115 CARBON DIOXIDE (test code=CO2) 25 mEq/L 22-31 ANION GAP (test code=GAP) 10.50 10-20 GLUCOSE (test code=GLU) 230 mg/dL 65-110 BLOOD UREA NITROGEN (test code=BUN) 8 mg/dL 7-18 GLOMERULAR FILTRATION RATE (test code=GFR) 84 ml/min >60 CREATININE (test code=CREAT) 0.8 mg/dL 0.5-1.0 TOTAL PROTEIN (test code=PROT) 5.7 gm/dL 6.3-8.2 ALBUMIN (test code=ALB) 2.1 gm/dL 3.4-4.8 CALCIUM (test code=CA) 7.0 mg/dL 8.4-10.2 BILIRUBIN TOTAL (test code=BILT) 0.8 mg/dL 0.2-1.0 SGOT/AST (test code=AST) 22 units/L 15-37 SGPT/ALT (test code=ALT) 20 units/L 12-78 ALKALINE PHOSPHATASE TOTAL (test code=ALKP) 69 units/L 46-116 [id number] 05:57:00 Test Item Value Reference Range Comments MAGNESIUM (test code=MAG) 1.0 mg/dL 1.8-2.4 RESULTS CALLED TO ZAC MENDOZA.READ BACK & CONFIRMED? Y.BY YUE 12/18/18 0557. RESULTS VERIFIED BY REPEAT ANALYSIS CBC W/AUTO [id number] 05:13:00 Test Item Value Reference Range Comments WHITE BLOOD CELL (test 16.6 K/mm3 6.6-12.1 Results verified by repeat code=WBC) analysis RED BLOOD CELL (test code=RBC) 4.16 M/mm3 3.45-5.01 HEMOGLOBIN (test code=HGB) 11.2 g/dL 10.7-13.9 HEMATOCRIT (test code=HCT) 35.2 % 32.1-42.1 Results verified by repeat analysis MEAN CELL VOLUME (test 85 fL 84.1-94.8 code=MCV) MEAN CELL HGB (test code=MCH) 26.9 pg 27-35 MEAN CELL HGB CONCETRATION 31.8 gm/dL 32.2-34.1 (test code=MCHC) RED CELL DISTRIBUTION WIDTH 14.7 % 12.4-16.5 (test code=RDW) PLATELET COUNT (test code=PLT) 309 K/mm3 133-385 IMMATURE PLATELET FRACTION 0.0 % 0.0-10.8 (test code=IPF) MEAN PLATELET VOLUME (test 10.9 fl 9.1-12.7 code=MPV) NEUTROPHIL % (test code=NT%) 76.8 % 56.5-79.4 LYMPHOCYTE % (test code=LY%) 12.1 % 14.3-34.3 MONOCYTE % (test code=MO%) 10.3 % 5.1-10.4 EOSINOPHIL % (test code=EO%) 0.0 % 0.1-3.0 BASOPHIL % (test code=BA%) 0.3 % 0.1-1.0 NEUTROPHIL # (test code=NT#) 12.7 K/mm3 LYMPHOCYTE # (test code=LY#) 2.0 K/mm3 MONOCYTE # (test code=MO#) 1.7 K/mm3 EOSINOPHIL # (test code=EO#) 0 K/mm3 BASOPHIL # (test code=BA#) 0.1 K/mm3 RBC MORPHOLOGY REQUIRED (test NORMAL NORMAL code=RBCM) PLATELET MORPHOLOGY REQUIRED NORMAL NORMAL (test code=PLTMR) [id number] 00:21:00 Test Item Value Reference Range Comments GLUBED (test code=GLUBED) 280 mg/dL 65-110 CHEMISTRY 7 [id number] 23:10:00 Test Item Value Reference Range Comments SODIUM (test code=NA) 137 mEq/L 135-145 POTASSIUM (test code=K) 4.1 mEq/L 3.5-5.0 CHLORIDE (test code=CL) 105 mEq/L 100-115 CARBON DIOXIDE (test code=CO2) 25 mEq/L 22-31 ANION GAP (test code=GAP) 11.60 10-20 GLUCOSE (test code=GLU) 344 mg/dL 65-110 BLOOD UREA NITROGEN (test code=BUN) 7 mg/dL 7-18 GLOMERULAR FILTRATION RATE (test code=GFR) 65 ml/min >60 CREATININE (test code=CREAT) 1.0 mg/dL 0.5-1.0 CALCIUM (test code=CA) 7.1 mg/dL 8.4-10.2 CBC W/AUTO [id number] 18:05:00 Test Item Value Reference Range Comments WHITE BLOOD CELL (test 28.6 K/mm3 6.6-12.1 RESULTS VERIFIED BY REPEAT code=WBC) ANALYSISRESULTS CALLED TO KRISHNA .READ BACK & CONFIRMED? Y.BY FIzaLAB.RV 12/17/18 4982. RED BLOOD CELL (test 5.23 M/mm3 3.45-5.01 code=RBC) HEMOGLOBIN (test code=HGB) 13.9 g/dL 10.7-13.9 HEMATOCRIT (test code=HCT) 44.6 % 32.1-42.1 MEAN CELL VOLUME (test 85 fL 84.1-94.8 code=MCV) MEAN CELL HGB (test 26.6 pg 27-35 code=MCH) MEAN CELL HGB CONCETRATION 31.2 gm/dL 32.2-34.1 (test code=MCHC) RED CELL DISTRIBUTION WIDTH 14.7 % 12.4-16.5 (test code=RDW) PLATELET COUNT (test 223 K/mm3 133-385 code=PLT) IMMATURE PLATELET FRACTION 0.0 % 0.0-10.8 (test code=IPF) MEAN PLATELET VOLUME (test 10.9 fl 9.1-12.7 code=MPV) MANUAL DIFF REQUIRED (test YES code=MDIFF) RBC MORPHOLOGY REQUIRED NORMAL NORMAL (test code=RBCM) PLATELET MORPHOLOGY REQUIRED NORMAL NORMAL (test code=PLTMR) WBC [id number] 18:05:00 Test Item Value Reference Range Comments TOTAL CELLS COUNTED (test code=TCC) 100 #CELLS SEGMENTED NEUTROPHILS (test code=SEG) 88 % 56.5-79.4 BAND NEUTROPHIL (test code=BAND) 4 % 0-5 LYMPHOCYTE (test code=LYMPH) 6 % 20-40 MONOCYTE (test code=MON) 2 % 0-8 PLATELET ESTIMATE (test code=PLTEST) ADEQUATE ADEQ PLATELET MORPHOLOGY (test code=PLTMORPH) NORMAL NORMAL CHEMISTRY 7 [id number] 17:48:00 Test Item Value Reference Range Comments SODIUM (test code=NA) 134 mEq/L 135-145 POTASSIUM (test code=K) 5.7 mEq/L 3.5-5.0 CHLORIDE (test code=CL) 101 mEq/L 100-115 CARBON DIOXIDE (test code=CO2) 22 mEq/L 22-31 ANION GAP (test code=GAP) 16.70 10-20 GLUCOSE (test code=GLU) 371 mg/dL 65-110 BLOOD UREA NITROGEN (test code=BUN) 8 mg/dL 7-18 GLOMERULAR FILTRATION RATE (test code=GFR) 74 ml/min >60 CREATININE (test code=CREAT) 0.9 mg/dL 0.5-1.0 CALCIUM (test code=CA) 7.5 mg/dL 8.4-10.2 CBC W/AUTO [id number] 17:32:00 Test Item Value Reference Range Comments WHITE BLOOD CELL (test 28.6 K/mm3 6.6-12.1 RESULTS VERIFIED BY REPEAT code=WBC) ANALYSISRESULTS CALLED TO Teach The PeopleCASTORENA .READ BACK & CONFIRMED? Y.BY F.LAB. 12/17/181729. RED BLOOD CELL (test 5.23 M/mm3 3.45-5.01 code=RBC) HEMOGLOBIN (test code=HGB) 13.9 g/dL 10.7-13.9 HEMATOCRIT (test code=HCT) 44.6 % 32.1-42.1 MEAN CELL VOLUME (test 85 fL 84.1-94.8 code=MCV) MEAN CELL HGB (test 26.6 pg 27-35 code=MCH) MEAN CELL HGB CONCETRATION 31.2 gm/dL 32.2-34.1 (test code=MCHC) RED CELL DISTRIBUTION WIDTH 14.7 % 12.4-16.5 (test code=RDW) PLATELET COUNT (test 223 K/mm3 133-385 code=PLT) IMMATURE PLATELET FRACTION 0.0 % 0.0-10.8 (test code=IPF) MEAN PLATELET VOLUME (test 10.9 fl 9.1-12.7 code=MPV) MANUAL DIFF REQUIRED (test YES code=MDIFF) RBC MORPHOLOGY REQUIRED NORMAL (test code=RBCM) PLATELET MORPHOLOGY REQUIRED NORMAL (test code=PLTMR) WBC [id number] 17:32:00 Test Item Value Reference Range Comments SEGMENTED NEUTROPHILS (test code=SEG) % 56.5-79.4 LYMPHOCYTE (test code=LYMPH) % 20-40 CBC W/AUTO [id number] 17:32:00 Test Item Value Reference Range Comments WHITE BLOOD CELL (test 28.6 K/mm3 6.6-12.1 RESULTS VERIFIED BY REPEAT code=WBC) ANALYSISRESULTS CALLED TO KRISHNA .READ BACK & CONFIRMED? Y.BY F.LAB. 12/17/181729. RED BLOOD CELL (test 5.23 M/mm3 3.45-5.01 code=RBC) HEMOGLOBIN (test code=HGB) 13.9 g/dL 10.7-13.9 HEMATOCRIT (test code=HCT) 44.6 % 32.1-42.1 MEAN CELL VOLUME (test 85 fL 84.1-94.8 code=MCV) MEAN CELL HGB (test 26.6 pg 27-35 code=MCH) MEAN CELL HGB CONCETRATION 31.2 gm/dL 32.2-34.1 (test code=MCHC) RED CELL DISTRIBUTION WIDTH 14.7 % 12.4-16.5 (test code=RDW) PLATELET COUNT (test 223 K/mm3 133-385 code=PLT) IMMATURE PLATELET FRACTION 0.0 % 0.0-10.8 (test code=IPF) MEAN PLATELET VOLUME (test 10.9 fl 9.1-12.7 code=MPV) MANUAL DIFF REQUIRED (test YES code=MDIFF) RBC MORPHOLOGY REQUIRED NORMAL (test code=RBCM) PLATELET MORPHOLOGY REQUIRED NORMAL (test code=PLTMR) WBC [id number] 17:32:00 Test Item Value Reference Range Comments SEGMENTED NEUTROPHILS (test code=SEG) % 56.5-79.4 LYMPHOCYTE (test code=LYMPH) % 20-40 [id number] 14:59:00 Test Item Value Reference Range Comments GLUBED (test code=GLUBED) 288 mg/dL 65-110 [id number] 06:04:00 Test Item Value Reference Range Comments GLUBED (test code=GLUBED) 201 mg/dL 65-110 URINALYSIS [id number] 03:54:00 Test Item Value Reference Range Comments UA COLOR (test code=COLU) YELLOW YELLOW UA APPEARANCE (test code=APPU) Slightly-Cloudy CLEAR UA GLUCOSE DIPSTICK (test code=DGLUU) 3+ NEG UA BILIRUBIN DIPSTICK (test code=BILU) NEGATIVE NEG UA KETONE DIPSTICK (test code=KETU) NEGATIVE NEG UA SPECIFIC GRAVITY (test code=SGU) 1.033 1.001-1.035 UA BLOOD DIPSTICK (test code=TYRA) NEG NEG UA PH DIPSTICK (test code=DELMY) 6.0 5-9 UA PROTEIN DIPSTICK (test code=PROU) NEGATIVE NEG UA UROBILINIOGEN DIPSTICK (test code=URO) NEGATIVE mg/dL NEG UA NITRITE DIPSTICK (test code=SANDRITA) NEG NEG UA LEUKOCYTE ESTERASE DIPSTICK (test 2+ NEG code=LEUU) UA WBC (test code=WBCU) 20-30 #/hpf NONE SEEN UA RBC (test code=RBCU) 5-10 #/hpf NONE SEEN UA EPITHELIAL CELLS (test code=EPIU) MANY #/HPF RARE-FEW UA BACTERIA (test code=BACU) RARE /HPF RARE-FEW UA MUCUS (test code=MUCU) 2+ NONE SEEN URINE SAMPLE: CLEAN CATCHComment URINE WITH CULTUREUR HCG [id number] 03:54: 00 Test Item Value Reference Range Comments UR HCG QUAL (test NEGATIVE 1. Very dilute urine specimens, as code=HCGQLU) indicated by a lowspecific gravity, may not contain credit and collections representative levels ofhCG. 2. False negative results may occur when the levels of hCGare below the sensitivity level of the test. If is still suspected, a first morningurine specimen should be collected 48 hours later andtested. URINE SAMPLE: CLEAN CATCHComment URINE WITH CULTUREURINALYSIS [id number] 03:38:00 Test Item Value Reference Range Comments UA COLOR (test code=COLU) YELLOW UA APPEARANCE (test code=APPU) CLEAR UA GLUCOSE DIPSTICK (test code=DGLUU) NEGATIVE UA BILIRUBIN DIPSTICK (test code=BILU) NEGATIVE UA KETONE DIPSTICK (test code=KETU) NEGATIVE UA SPECIFIC GRAVITY (test code=SGU) 1.001-1.035 UA BLOOD DIPSTICK (test code=TYRA) NEGATIVE UA PH DIPSTICK (test code=DELMY) 5-9 UA PROTEIN DIPSTICK (test code=PROU) NEGATIVE UA UROBILINIOGEN DIPSTICK (test code=URO) mg/dL NEG UA NITRITE DIPSTICK (test code=SANDRITA) NEGATIVE UA LEUKOCYTE ESTERASE DIPSTICK (test code=LEUU) NEG UA WBC (test code=WBCU) #/hpf NONE SEEN UA EPITHELIAL CELLS (test code=EPIU) #/HPF RARE-FEW URINE SAMPLE: CLEAN CATCHComment URINE WITH CULTUREUR HCG [id number] 03:38: 00 Test Item Value Reference Range Comments UR HCG QUAL (test NEGATIVE 1. Very dilute urine specimens, as code=HCGQLU) indicated by a lowspecific gravity, may not contain credit and collections representative levels ofhCG. 2. False negative results may occur when the levels of hCGare below the sensitivity level of the test. If is still suspected, a first morningurine specimen should be collected 48 hours later andtested. URINE SAMPLE: CLEAN CATCHComment URINE WITH [id number] 22:09:00 Test Item Value Reference Range Comments GLUBED (test code=GLUBED) 263 mg/dL 65-110 Phsician Notified [id number] 17:08:00 Test Item Value Reference Range Comments GLUBED (test code=GLUBED) 286 mg/dL 65-110 [id number] 15:28:00 Test Item Value Reference Range Comments CREATININE (test code=CREAT) 0.9 mg/dL 0.5-1.0 IS THIS A ONCE DAILY SINGLE DOSE? YESDATE OF LAST DOSE: 12/16/18TIME OF LAST DOSE: [id number] 15:28:00 Test Item Value Reference Range Comments GENTAMICIN (test code=GENT) 0.8 mcg/mL 0-14 Adult normal range for once daily dose of Gentamicin may beup to 24 mcg/mL. Gentamicin results must be correlated withthe time the dose was administered. IS THIS A ONCE DAILY SINGLE DOSE? YESDATE OF LAST DOSE: 12/16/18TIME OF LAST DOSE: [id number] 13:24:00 Test Item Value Reference Range Comments GLUBED (test code=GLUBED) 274 mg/dL 65-110 HCG [id number] 12:13:00 Test Item Value Reference Range Comments HCG SERUM (test code=HCG) <1 INTERPRETATION:VALUES BETWEEN 15-20 milliInternational units/mL NEED TO BERETESTED WITHIN 48 HOURS. All units for these ranges are in milliInternationalunits/mL0-1 WK AFTER CONCEPTION 0-50 1-2 WKS AFTER CONCEPTION 40-3002-3 WKS AFTER CONCEPTION 100-1,0003-4 WKS AFTER CONCEPTION 500-6,0001-2 MONTHS AFTER CONCEPTION 5,000-200,0002-3 MONTHS AFTER CONCEPTION 10,000-100,0002ND TRIMESTER 3,000-50,0003RD TRIMESTER 1,000-50,000 SPECIMENS WITH AN HCG LEVEL FROM 0-6 milliInternationalunits/mL SHOULD BE CONSIDERED NEGATIVE PT.IS NOT IN THE ROOM AT THIS TIME. PHLEB/RBCHEMISTRY 7 [id number] 12:11: 00 Test Item Value Reference Range Comments SODIUM (test code=NA) 135 mEq/L 135-145 POTASSIUM (test code=K) 4.0 mEq/L 3.5-5.0 CHLORIDE (test code=CL) 100 mEq/L 100-115 CARBON DIOXIDE (test code=CO2) 27 mEq/L 22-31 ANION GAP (test code=GAP) 12.10 10-20 GLUCOSE (test code=GLU) 259 mg/dL 65-110 BLOOD UREA NITROGEN (test code=BUN) 5 mg/dL 7-18 GLOMERULAR FILTRATION RATE (test code=GFR) 98 ml/min >60 CREATININE (test code=CREAT) 0.7 mg/dL 0.5-1.0 CALCIUM (test code=CA) 8.5 mg/dL 8.4-10.2 PT.IS NOT IN THE ROOM AT THIS TIME. @ 07198IR TRY 1018 AM. PHLEB/RBCBC W/AUTO [id number] 11:40:00 Test Item Value Reference Range Comments WHITE BLOOD CELL (test code=WBC) 8.2 K/mm3 6.6-12.1 RED BLOOD CELL (test code=RBC) 4.74 M/mm3 3.45-5.01 HEMOGLOBIN (test code=HGB) 11.8 g/dL 10.7-13.9 HEMATOCRIT (test code=HCT) 38.9 % 32.1-42.1 MEAN CELL VOLUME (test code=MCV) 82 fL 84.1-94.8 MEAN CELL HGB (test code=MCH) 24.9 pg 27-35 MEAN CELL HGB CONCETRATION (test code=MCHC) 30.3 gm/dL 32.2-34.1 RED CELL DISTRIBUTION WIDTH (test code=RDW) 13.4 % 12.4-16.5 PLATELET COUNT (test code=PLT) 373 K/mm3 133-385 IMMATURE PLATELET FRACTION (test code=IPF) 0.0 % 0.0-10.8 MEAN PLATELET VOLUME (test code=MPV) 10.7 fl 9.1-12.7 NEUTROPHIL % (test code=NT%) 70.4 % 56.5-79.4 LYMPHOCYTE % (test code=LY%) 18.5 % 14.3-34.3 MONOCYTE % (test code=MO%) 8.2 % 5.1-10.4 EOSINOPHIL % (test code=EO%) 1.7 % 0.1-3.0 BASOPHIL % (test code=BA%) 0.7 % 0.1-1.0 NEUTROPHIL # (test code=NT#) 5.7 K/mm3 LYMPHOCYTE # (test code=LY#) 1.5 K/mm3 MONOCYTE # (test code=MO#) 0.7 K/mm3 EOSINOPHIL # (test code=EO#) 0.14 K/mm3 BASOPHIL # (test code=BA#) 0.1 K/mm3 RBC MORPHOLOGY REQUIRED (test code=RBCM) NORMAL NORMAL PLATELET MORPHOLOGY REQUIRED (test code=PLTMR) NORMAL NORMAL COME BACK LATER- CT ABD PELVIS [id number] 11:01:00 Patient Name: SOHAIL THOMPSON Unit No: [id number] EXAMS: CPT CODE: [id number] CT ABD PELVIS W/CONT 44833 Exam: CT scan of the abdomen and pelvis. Exam date: December 16, 2018. Comparison: No images are available. These have been requested from outside facility. A limited report is available. Clinical history: TUBO-OVARIAN ABSCESS. One or more of the following dose techniques were utilized; automated exposure control, adjustment of the mA and/or kV according to patientsize, and/or utilization of iterative reconstruction technique. DLP: 1880.60 mGy-cm. Sequentialscanning of the abdomen and pelvis was performed after the administration of oral Gastrografin and IV Isovue 300. Delayed imaging through the pelvis was also obtained. Reformatted images were also submitted. The visualized portions of the heart and lungs are unremarkable. The liver demonstrates mild decreased density suggestive of possible early fatty infiltration. No focal abnormalities are noted. The spleen, pancreas, gallbladder, biliary ductal system, adrenal glands, kidneys, ureters where visualized and bladder are unremarkable. The great vessels are unremarkable. The bowel is within normal limits. The uterus is unremarkable. In the right adnexal region is a mass with air-fluid levels measuring 6.6 x 8.3 x 6.8 cm. No inflammatory changes are noted surrounding this mass. In the left adnexal region is a similar finding with a complex mass with air within it measuring 4.9 x 5.1 x 4.1 cm. There is very closely apposed small bowel to both of these findings. On delayedimaging no oral contrast has entered these masses. No significant free fluid is identified. Infrarenal periaortic adenopathy is identified as well as pelvic lymphadenopathy. The largest node is on the left infrarenal region measuring 1.8 cm in transverse diameter. Visualized osseous structuresare unremarkable. Anterior wall demonstrates no significant abnormalities. IMPRESSION: [facility] NAME: SOHAIL THOMPSON Radiology Department PHYS: Arpan Wallace MD [address] : 1990 AGE : 28 SEX: F [place], [place] [address] LOC : F.4672 A PHONE #: [phone] EXAM DATE: 12/16/2018 STATUS : ADM IN FAX #: [phone] RAD NO: Page 1 Signed Report 1 Patient Name: SOHAIL THOMPSON Unit No: [id number] EXAMS: CPT CODE: [id number] CT ABD PELVIS W/CONT 18750 <Continued> Bilateral adnexal masses as described above. The patient gives a history of abscess drainage at [facility] October 05, 2018. She describes having drains and drainage bags on either side. The findings in the adnexal region may be sequela of this procedure. Prior images have been requested. at 1101 Reported and signed by: Charissa Arreola MD CC: Lianet Weir Technologist: Sarthak Coleman, RT, CT CTDI: 21.83 DLP: 1880.60 Trnscrbd D/ (1101) tAMIN [facility] [place] NAME: DONNASOHAIL Radiology Department PHYS: Arpan Wallace MD [address] : 1990 AGE: 28 SEX: F [place], [place] [address] LOC: F.4672 A PHONE #: [phone] EXAM DATE: 12/16/2018 STATUS: ADM IN FAX #:[phone] RAD NO: Page 2 Signed Report 1 Patient Name: SOHAIL THOMPSON Unit No: [id number] EXAMS : CPT CODE: [id number] CT ABD PELVIS W/CONT 48150 <Continued> Orig Print D/T: S: 12/16/2018 (1104) [facility] NAME: SOHAIL THOMPSON Radiology Department PHYS: Arpan Wallace MD[address] : 1990 AGE: 28 SEX: F [place] [address] LOC: Franck[address] Eleanor PHONE #: [phone] EXAM DATE: 12/16/2018 STATUS: ADM IN FAX #: [phone] RAD NO: Page 3 Signed Report [id number] 07:07:00 Test Item Value Reference Range Comments GLUBED (test code=GLUBED) 241 mg/dL 65-110 CREATINE KINASE (CK)2018-12-15 19:52:00 Test Item Value Reference Range Comments CREATINE KINASE (CK) (test code=CK) 60 Units/L 26-192 [id number] 16:55:00 Test Item Value Reference Range Comments GLUBED (test code=GLUBED) 339 mg/dL 65-110 Phsician Notified GLYCOSYLATED HEMOGLOBIN [id number] 11:01:00 Test Item Value Reference Range Comments GLYCOSYLATED HEMOGLOBIN 9.2 % 4.8-5.9 Any condition that shortens (HA1C) (test code=GLYHGB) erythocyte survival or decreasesmean erythrocyte age (e.g., recovery from acute blood loss,hemolytic anemia) will falsely lower HGBA1c resultsregardless of the method used. HGBA1c results from patientswith HbSS, HbCC, and HbSc must be interpreted with cautiongiven the pathological processes, including anemia,increased red cell turnover, transfusion requirements, thatadversely impact HGBA1c as a marker of long-term glycemiccontrol. Alternative forms of testing such as fructosamineshould be considered for these patients. MEAN BLOOD GLUCOSE (test 217 MG/DL 70-110 code=MBG) COMPREHENSIVE METABOLIC [id number] 11:01:00 Test Item Value Reference Range Comments SODIUM (test code=NA) 134 mEq/L 135-145 POTASSIUM (test code=K) 3.9 mEq/L 3.5-5.0 CHLORIDE (test code=CL) 100 mEq/L 100-115 CARBON DIOXIDE (test code=CO2) 26 mEq/L 22-31 ANION GAP (test code=GAP) 12.40 10-20 GLUCOSE (test code=GLU) 371 mg/dL 65-110 BLOOD UREA NITROGEN (test code=BUN) 9 mg/dL 7-18 GLOMERULAR FILTRATION RATE (test code=GFR) 84 ml/min >60 CREATININE (test code=CREAT) 0.8 mg/dL 0.5-1.0 TOTAL PROTEIN (test code=PROT) 8.3 gm/dL 6.3-8.2 ALBUMIN (test code=ALB) 3.0 gm/dL 3.4-4.8 CALCIUM (test code=CA) 8.3 mg/dL 8.4-10.2 BILIRUBIN TOTAL (test code=BILT) 0.7 mg/dL 0.2-1.0 SGOT/AST (test code=AST) 39 units/L 15-37 SGPT/ALT (test code=ALT) 42 units/L 12-78 ALKALINE PHOSPHATASE TOTAL (test code=ALKP) 103 units/L 46-116 T4 [id number] 11:01:00 Test Item Value Reference Range Comments T4 FREE (test code=T4F) 1.24 ng/dL 0.76-1.46 THYROID STIMULATING [id number] 11:01:00 Test Item Value Reference Range Comments THYROID STIMULATING HORMONE 3.27 0.36-3.74 Test Performed in (test code=TSH) MicroInternational Units/mL GLYCOSYLATED HEMOGLOBIN (HA1C)2018-12-15 11:01:00 Test Item Value Reference Range Comments GLYCOSYLATED HEMOGLOBIN 9.2 % 4.8-5.9 Any condition that shortens (HA1C) (test code=GLYHGB) erythocyte survival or decreasesmean erythrocyte age (e.g., recovery from acute blood loss,hemolytic anemia) will falsely lower HGBA1c resultsregardless of the method used. HGBA1c results from patientswith HbSS, HbCC, and HbSc must be interpreted with cautiongiven the pathological processes, including anemia,increased red cell turnover, transfusion requirements, thatadversely impact HGBA1c as a marker of long-term glycemiccontrol. Alternative forms of testing such as fructosamineshould be considered for these patients. [id number] 10:19:00 Test Item Value Reference Range Comments GLUBED (test code=GLUBED) 290 mg/dL 65-110 Phsician Notified COMPREHENSIVE METABOLIC [id number] 07:23:00 Test Item Value Reference Range Comments SODIUM (test code=NA) 134 mEq/L 135-145 POTASSIUM (test code=K) 3.9 mEq/L 3.5-5.0 CHLORIDE (test code=CL) 100 mEq/L 100-115 CARBON DIOXIDE (test code=CO2) 26 mEq/L 22-31 ANION GAP (test code=GAP) 12.40 10-20 GLUCOSE (test code=GLU) 371 mg/dL 65-110 BLOOD UREA NITROGEN (test code=BUN) 9 mg/dL 7-18 GLOMERULAR FILTRATION RATE (test code=GFR) 84 ml/min >60 CREATININE (test code=CREAT) 0.8 mg/dL 0.5-1.0 TOTAL PROTEIN (test code=PROT) 8.3 gm/dL 6.3-8.2 ALBUMIN (test code=ALB) 3.0 gm/dL 3.4-4.8 CALCIUM (test code=CA) 8.3 mg/dL 8.4-10.2 BILIRUBIN TOTAL (test code=BILT) 0.7 mg/dL 0.2-1.0 SGOT/AST (test code=AST) 39 units/L 15-37 SGPT/ALT (test code=ALT) 42 units/L 12-78 ALKALINE PHOSPHATASE TOTAL (test code=ALKP) 103 units/L 46-116 T4 [id number] 07:23:00 Test Item Value Reference Range Comments T4 FREE (test code=T4F) 1.24 ng/dL 0.76-1.46 THYROID STIMULATING [id number] 07:23:00 Test Item Value Reference Range Comments THYROID STIMULATING HORMONE 3.27 0.36-3.74 Test Performed in (test code=TSH) MicroInternational Units/mL GLYCOSYLATED HEMOGLOBIN (HA1C)2018-12-15 07:23:00 Test Item Value Reference Range Comments GLYCOSYLATED HEMOGLOBIN (HA1C) (test code=GLYHGB) [id number] 06:04:00 Test Item Value Reference Range Comments GLUBED (test code=GLUBED) 308 mg/dL 65-110 Phsician Notified COMPREHENSIVE METABOLIC [id number] 05:10:00 Test Item Value Reference Range Comments SODIUM (test code=NA) 134 mEq/L 135-145 POTASSIUM (test code=K) 3.9 mEq/L 3.5-5.0 CHLORIDE (test code=CL) 100 mEq/L 100-115 CARBON DIOXIDE (test code=CO2) 26 mEq/L 22-31 ANION GAP (test code=GAP) 12.40 10-20 GLUCOSE (test code=GLU) 371 mg/dL 65-110 BLOOD UREA NITROGEN (test code=BUN) 9 mg/dL 7-18 GLOMERULAR FILTRATION RATE (test code=GFR) 84 ml/min >60 CREATININE (test code=CREAT) 0.8 mg/dL 0.5-1.0 TOTAL PROTEIN (test code=PROT) 8.3 gm/dL 6.3-8.2 ALBUMIN (test code=ALB) 3.0 gm/dL 3.4-4.8 CALCIUM (test code=CA) 8.3 mg/dL 8.4-10.2 BILIRUBIN TOTAL (test code=BILT) 0.7 mg/dL 0.2-1.0 SGOT/AST (test code=AST) 39 units/L 15-37 SGPT/ALT (test code=ALT) 42 units/L 12-78 ALKALINE PHOSPHATASE TOTAL (test code=ALKP) 103 units/L 46-116 THYROID STIMULATING [id number] 05:10:00 Test Item Value Reference Range Comments THYROID STIMULATING HORMONE 3.27 0.36-3.74 Test Performed in (test code=TSH) MicroInternational Units/mL GLYCOSYLATED HEMOGLOBIN (HA1C)2018-12-15 05:10:00 Test Item Value Reference Range Comments GLYCOSYLATED HEMOGLOBIN (HA1C) (test code=GLYHGB) LACTIC [id number] 04:53:00 Test Item Value Reference Range Comments LACTIC ACID (test code=LACT) 1.5 MMOL/L 0.5-2.2 CBC W/AUTO [id number] 04:30:00 Test Item Value Reference Range Comments WHITE BLOOD CELL (test code=WBC) 9.7 K/mm3 6.6-12.1 RED BLOOD CELL (test code=RBC) 4.46 M/mm3 3.45-5.01 HEMOGLOBIN (test code=HGB) 11.2 g/dL 10.7-13.9 HEMATOCRIT (test code=HCT) 36.7 % 32.1-42.1 MEAN CELL VOLUME (test code=MCV) 82 fL 84.1-94.8 MEAN CELL HGB (test code=MCH) 25.1 pg 27-35 MEAN CELL HGB CONCETRATION (test code=MCHC) 30.5 gm/dL 32.2-34.1 RED CELL DISTRIBUTION WIDTH (test code=RDW) 13.6 % 12.4-16.5 PLATELET COUNT (test code=PLT) 373 K/mm3 133-385 IMMATURE PLATELET FRACTION (test code=IPF) 0.0 % 0.0-10.8 MEAN PLATELET VOLUME (test code=MPV) 11.2 fl 9.1-12.7 NEUTROPHIL % (test code=NT%) 74.8 % 56.5-79.4 LYMPHOCYTE % (test code=LY%) 14.8 % 14.3-34.3 MONOCYTE % (test code=MO%) 7.3 % 5.1-10.4 EOSINOPHIL % (test code=EO%) 2.0 % 0.1-3.0 BASOPHIL % (test code=BA%) 0.6 % 0.1-1.0 NEUTROPHIL # (test code=NT#) 7.3 K/mm3 LYMPHOCYTE # (test code=LY#) 1.4 K/mm3 MONOCYTE # (test code=MO#) 0.7 K/mm3 EOSINOPHIL # (test code=EO#) 0.19 K/mm3 BASOPHIL # (test code=BA#) 0.1 K/mm3 RBC MORPHOLOGY REQUIRED (test code=RBCM) NORMAL NORMAL PLATELET MORPHOLOGY REQUIRED (test code=PLTMR) NORMAL NORMAL - CT HEAD/BRAIN W/O [id number] 04:27:00 Patient Name: SOHAIL THOMPSON Unit No: [id number] EXAMS: CPT CODE : [id number] CT HEAD/BRAIN W/O CONT [id number] EXAM: CT, CT HEAD/BRAIN W/O CONTRAST; 12/15/2018, 0402 hours HISTORY: HEADACHE COMPARISON: None available. TECHNIQUE: CT images were obtained from the foramen magnum to the vertex without the use of intravenous contrast on a multidetector CT. CT imaging was performed with exposure control parameters to reduce radiation dose. Coronal and sagittal reconstructions were obtained. CT radiation dose DLP: 879.86 mGy-cm FINDINGS: BRAIN PARENCHYMA: The brain parenchyma is normal with normal arevalo and white interfaces. The periventricular white matter appears unremarkable. No focal mass lesions on this noncontrast head CT. No mass effect, midline shift or edema.There are no intra-axial or extra-axial fluid collections, intraventricular or intraparenchymal hemorrhage. No low attenuation demarcating areas on this non-contrast CT to suggest subacute stroke. VENTRICLES: The lateral ventricles, third and fourth ventricles appear unremarkable. The basilarcisterns are normal. ORBITS, MASTOIDS AND PARANASAL SINUSES: The visualized orbits are unremarkable. The visualized paranasal sinuses are unremarkable. The mastoid air cells are clear. SKULL: There are no osseous abnormalities. If there is further concern for intracranial pathology or acute stroke, MRI of the brain may be performed for complete assessment. IMPRESSION:1. No acute intracranial abnormality. No noncontrast CT evidence of mass, acute hemorrhage or subacute stroke. SL: BRANDIN [facility] NAME: DONNASOHAIL Radiology Department PHYS: Lianet Morrow MD [address] : 1990 AGE: 28 SEX: F [place] [address] LOC: F.4672 A PHONE #: [phone] EXAM DATE: 12/15/2018 STATUS: ADM IN FAX #: [phone] RAD NO: Page 1 Signed Report 1 Patient Name: SOHAIL THOMPSON UnitNo: [id number] EXAMS: CPT CODE: [id number] CT HEAD/BRAIN W/O CONT 35024 <Continued> at 0427 Reported and signed by: Paul Barreto M.D. CC: Lianet Weir Technologist: JENNI MEDINA, RT CTDI : 53.12 DLP: 879.86 Trnscrbd D/ (0427) [id number] [facility] NAME:SOHAIL THOMPSON Radiology Department PHYS: Lianet Morrow MD [address] : 1990 AGE: 28 SEX: F [place] [address] LOC: F.4672 A PHONE #: [phone] EXAM DATE: 12/15/2018 STATUS: ADM IN FAX #: [phone] RAD NO: Page 2 Signed Report 1 Patient Name: SOHAIL THOMPSON Unit No: [id number] EXAMS: CPT CODE: [id number] CT HEAD/BRAIN W/O CONT [id number] <Continued> Orig Print D/T: S: 12/15/2018 (0430) [facility] [place] NAME: SOHAIL THOMPSON Radiology DepartmentPHYS: Lianet Morrow MD [address] : 1990 AGE : 28 SEX: F [place], [place] [address] LOC: F.4672 A PHONE #: [phone] EXAM DATE: 12/15/2018 STATUS: ADM IN FAX #: [phone] RAD NO: Page 3 Signed Report 1
--- OUTSIDE RECORDS SUMMARY | 2018-12-20 00:03 | XMS REPORT ---
[...] Medications Results No Known Results Summary Purpose [employer] Submission
--- OUTSIDE RECORDS SUMMARY | 2018-12-20 00:04 | XMS REPORT | Summary of Care ---
:1990 Author Organization [address] [address] Care Team Providers Name Role Phone Marcela Roche Primary Care Provider Briana Shepherd RN Case Manager Radha Camargo Community Health Worker Reason for Visit Reason Comments Referral/consult CHP referral Encounter Details Date Type Department Care Team Description 09/13/2018 Patient Outreach [facility] Briana Shepherd, principal strategist/consult [address] (P referral) [place], [place] [address] Allergies No Known Allergiesdocumented as of this encounter (statuses as of 09/13/2018) Medications Medication Sig Dispensed Refills Start Date End Date Status acetaminophen 325 mg Take 2 tablets by 30 tablet 0 08/22/2018 08/22/2019 Active tabletIndications: mouth every 6 (six) Tubo-ovarian abscess hours as needed for Temp > 38.5 C (for fever, not for pain). ibuprofen 600 mg Take 1 tablet by 30 tablet 0 08/22/2018 Active tabletIndications: mouth every 6 (six) Tubo-ovarian abscess hours as needed for Temp > 38.5 C (ONLY for fever, not for pain please!). insulin aspart RAPID inject 12 Units 1 Vial 3 08/22/2018 Active 100 unit/mL under the skin 3 injectionIndications (three) times daily : Tubo-ovarian with meals. abscess insulin glargine 100 inject 34 Units 20 mL 2 08/22/2018 Active unit/mL under the skin injectionIndications daily. : Tubo-ovarian abscess insulin aspart Please give aspart sliding scale Q 4 hours; may give even if NPO. 1 Vial 2 08/22/2018 Active injectionIndications Blood glucose 150 - 180 give 1 units. : Tubo-ovarian Blood glucose 181 - 210 give 2 units. abscess Blood glucose 211 - 240 give 3 units. Blood glucose 241 - 270 give 4units. Blood glucose 271 - 300 give 5units. If blood sugar >300, NHO and give 6 units. Recheck blood sugar in 3 hours. If blood sugar <70, NHO and use hypoglycemia protocol. Notify endocrinology if 2 or more consecutive BG >300 or < 80 documented as of this encounter (statuses as of 09/13/2018) Active Problems Problem Noted Date Morbid obesity with body mass index of 40.0-49.9 08/16/2018 Tubo-ovarian abscess 08/16/2018 Abdominal pain 08/16/2018 documented as of this encounter (statuses as of 09/13/2018) Social History Tobacco Use Types Packs/Day Years Used Date Never Smoker Smokeless Tobacco: Never Used Alcohol Use Drinks/Week oz/Week Comments Never Alcohol Habits Answer Date Recorded How often do you have a drink containing alcohol? Never 08/16/2018 How many drinks containing alcohol do you have on a typical Not asked day when you are drinking? How often do you have six or more drinks on one occasion? Not asked Education Answer Date Recorded What is the highest level of school you have High school graduate 08/16/2018 completed or the highest degree you have received? Financial Resource Strain Answer Date Recorded How hard is it for you to pay for the very basics like Somewhat hard 2018 food, housing, medical care, and heating? Food Insecurity Answer Date Recorded Within the past 12 months, you worried that your food Never true 08/16/2018 would run out before you got money to buy more. Within the past 12 months, the food you bought just Sometimes true 08/16/2018 didn't last and you didn't have money to get more. Transportation Needs Answer Date Recorded In the past 12 months, has lack of transportation kept you from No 08/16/2018 medical appointments or from getting medications? In the past 12 months, has lack of transportation kept you from No 08/16/2018 meetings, work, or getting things needed for daily living? Sex Assigned at Date Recorded Not on file Job Start Date Occupation Industry Not on file Not on file Not on file Travel History Travel Start Travel End No recent travel history available. documented as of this encounter Last Filed Vital Signs Not on filedocumented in this encounter Progress Notes Briana Shepherd RN - 09/13/2018 11:00 AM CDTOutpatient Care Management Enrollment Stacy Islas is a 27 year old female enrolled in [facility] ([facility]), Outpatient Care Management on 09/13/18 for care management of diabetes, hypertension, obesity and Sleep apnea. Problems identified on enrollment include: medication compliance: probably noncompliant though I cannot elicit that specific history, diabetic diet compliance: noncompliant much of the time, home glucose monitoring: are not performed Needs assistance with no income and applying for [facility] and getting screened [facility] in [place]. obesity data collection interviewer will work with the patient on the following goals of the agreed upon action plan: adherence to medication(s), diabetes (short/long acting insulin) and excessive salt intake exercise, low sodium diet and regular blood pressure checks medication compliance: compliant most of the time, diabetic diet compliance : compliant most of the time, home glucose monitoring: are performed regulary diet control, home glucose monitoring, insulin injections and check feet daily Referral to W for further education on DM diet/lifestyle changes Referral for a f/u call from re: PHQ >11. Provide patient a log, educate patient re: recording Blood sugars Educated patient on current meds listed on discharge summary. (Pt was taking Lantus TID) Pt doesnot have the Novolog due to cost. CM encouraged the patient to get established NELL at [facility] in [place]. CM assisted the patient with completing [facility] Care application. TIFFANIE Lugo, RN, [facility] Outpatient Inspector Clip On SunglassesPractical Nursing FacultyFormerly [facility] O: [phone] M: [phone] documented in this encounter Plan of Treatment Date Type Specialty Care Team Description 09/16/2018 Office Visit OB Satellites Pgy3 Health Maintenance Due Date Last Done Comments VARICELLA VACCINES (1 of 2 - 13+ 2001 2-dose series) DTaP,Tdap,and Td Vaccines (1 - 10/26/2007 Tdap) PAP SMEAR 03/04/2014 03/04/2011 INFLUENZA VACCINE 10/10/2018 PNEUMOCOCCAL 0-64 YEARS COMBINED Aged Out No longer eligible based on SERIES patient's age to complete this topic documented as of this encounter Results Not on filedocumented in this encounter
--- OUTSIDE RECORDS SUMMARY | 2018-12-20 00:04 | XMS REPORT | Summary of Care ---
:1990 Author Organization [address] [address] Care Team Providers Name Role Phone Marcela Roche Primary Care Provider Briana Shepherd principal investigator Reason for Visit Reason Comments Referral/consult chp referral Encounter Details Date Type Department Care Team Description 09/01/2018 Patient Outreach [facility] Briana Shepherd, cook soup/consult [address] (chp referral) [place], [place] [phone] Allergies No Known Allergiesdocumented as of this encounter (statuses as of 09/03/2018) Medications Medication Sig Dispensed Refills Start Date [...] as of this encounter (statuses as of 09/03/2018) Active Problems Problem Noted Date Morbid obesity with body mass index of 40.0-49.9 08/16/2018 Tubo-ovarian abscess 08/16/2018 Abdominal pain 08/16/2018 documented as of this encounter (statuses as of 09/03/2018) Social History Tobacco Use Types Packs/Day Years [...] filedocumented in this encounter Progress Notes Briana Shepherd, RN - 09/01/2018 4:38 PM CDTCHP CM called and briefly spoke with the patient re: referral. The patient agreed to enrollment on 09/13/18 @ 0900. CM encouraged the patient to call [facility] in [place] to complete financial application and to establishcare as the [facility] application will take longer. Pt agreed to plan. Pt also wants to call the OB clinic and schedule her hospital Follow up. Pt was notified follow up visit payments are billed to the patient and will not be collected at time of service. TIFFANIE Lugo, RN, [facility] Outpatient Inspector Golf BallPlastic Sheets Finishing SupervisorSelect Specialty Hospital - Durham O: [phone] M: [phone] documented in this encounter Plan of Treatment Date Type Specialty Care Team Description 09/13/2018 Patient Outreach Case Management Briana Shepherd, RN [address] [place] [id number] Health Maintenance Due Date Last Done Comments [...]
--- OUTSIDE RECORDS SUMMARY | 2018-12-20 00:04 | XMS REPORT ---
[...] End Status Dosage System Date Date Norethin [facility] 02243470767 1-20 MG-MCG(April Active 1 tablet Johnnie-Eth Orally Once a 2018 Estrad- day Lisinopril ND 12307299602 20 MG Orally Active 1 tablet Once a day Loryna [facility] 35566809956 3-0.02 MG Orally Active 1 tablet Once a day Lancets Super NDC 0 n/s finger stick May Active one Thin once 2017 Alcohol Prep NDC 0 topical twice May Active as directed Pads daily 2017 Metformin HCl ND 78534229432 500 MG Orally Active 1 tablet Twice a day with meals blood glucose NDC 0 n/s finger stick May Active one test strip once a day 2017 Results No Known Results Summary Purpose eClinicalWorks Submission
--- OUTSIDE RECORDS SUMMARY | 2018-12-20 00:04 | XMS REPORT ---
[...] Active as directed Pads daily 2017 Lisinopril [facility] 24680676790 20 MG Orally Active 1 tablet Once a day Lancets Super NDC 0 n/s finger stick May Active one Thin once 2017 Norethin ND 11451815397 1-20 MG-MCG(24) April Active 1 tablet Johnnie-Eth Orally Once a 2018 Estrad- day Loryna ND 51302610148 3-0.02 MG Orally Active 1 tablet Once a day Metformin HCl ND 69850792608 500 MG Orally Active 1 tablet Twice a day with meals Results No Known Results Summary Purpose eClinicalWorks Submission
--- OUTSIDE RECORDS SUMMARY | 2018-12-20 00:05 | XMS REPORT | Summary of Care ---
:1990 Author Organization [address] [address] Care Team Providers Name Role Phone Briana Shepherd appeals coordinator Radha Camargo Community Health Worker Kody Walter MD Primary Care Provider Reason for Visit Reason Comments Forms Encounter Details Date Type Department Care Team Description 09/21/2018 Patient Outreach [facility] Briana Shepherd, RN Forms [address] [id number] Allergies No Known Allergiesdocumented as of this encounter (statuses as of 09/21/2018) Medications Medication Sig Dispensed Refills Start Date [...] more consecutive BG >300 or < 80 norgestimate-ethinyl Take 1 tablet by 1 Package 12 09/16/2018 Active estradiol 0.25-35 mouth daily. mg-mcg per tabletIndications: Encounter for initial prescription of contraceptive pills documented as of this encounter (statuses as of 09/21/2018) Active Problems Problem Noted Date Morbid obesity with body mass index of 40.0-49.9 08/16/2018 Tubo-ovarian abscess 08/16/2018 Abdominal pain 08/16/2018 documented as of this encounter (statuses as of 09/21/2018) Social History Tobacco Use Types Packs/Day Years [...] encounter Progress Notes Briana Shepherd RN - 09/21/2018 2:08 PM CDTPt has completed her indigent application and has collected the proofs. CM will briefly go to patient's home to citrus picker the application and make copies prior to submitting to [facility]. TIFFANIE Lugo, RN, [facility] Outpatient Refractory ManagerTape Recorder RepairerDuke Regional Hospital O: [phone] M: [phone] documented in this encounter Plan of Treatment Health Maintenance Due Date Last Done Comments [...]
--- OUTSIDE RECORDS SUMMARY | 2018-12-20 00:05 | XMS REPORT | Summary of Care ---
:1990 Author Organization [address] [address] Care Team Providers Name Role Phone Marcela Roche Primary Care Provider Briana Shepherd RN Case Manager Radha Camargo Community Health Worker Reason for Visit Reason Comments Referral/consult CHP referral Encounter Details Date Type Department Care Team Description 09/13/[address] [facility] Briana Shepherd, him clerk/consult [address] (P referral) [place], [place] [address] Allergies No Known Allergiesdocumented as of this [...] a 27 year old female enrolled in [facility] ([facility]), Outpatient Care Management on 09/13/18 for care management of diabetes, hypertension, obesity and Sleep apnea. Problems identified on enrollment include: medication compliance: probably noncompliant though I cannot elicit that specific history, diabetic diet compliance: noncompliant much of the time, home glucose monitoring: are not performed Needs assistance with no income and applying for [facility] and getting screened [facility] in [place]. obesity public relations senior associate will work with the patient on the [...] the patient to get established NELL at [facility] in [place]. CM assisted the patient with completing [facility] Care application. The patient was informed about her upcoming hospital f/u on 09/16/18 @ 1173. TIFFANIE Lugo, RN, [facility] Outpatient Bee TenderFly WinderCentral Carolina Hospital O: [phone] M: [phone] documented in this encounter Plan of Treatment [...]
--- OUTSIDE RECORDS SUMMARY | 2018-12-20 00:05 | XMS REPORT | Summary of Care ---
:1990 Author Organization [address] [address] Care Team Providers Name Role Phone Briana Shepherd RN Case Manager Radha Camargo Community Health Worker Kody Walter MD Primary Care Provider Reason for Visit Reason Comments Follow-up on a referral from VIVIANE Shepherd Encounter Details Date Type Department Care Team Description 09/22/2018 Patient Outreach [facility] Radha Camargo Follow-up (on a [address] referral from VIVIANE Shepherd ) [place], [place] [address] Allergies No Known Allergiesdocumented as of this encounter (statuses as of 09/22/2018) Medications Medication Sig Dispensed Refills Start Date [...] as of this encounter (statuses as of 09/22/2018) Active Problems Problem Noted Date Morbid obesity with body mass index of 40.0-49.9 08/16/2018 Tubo-ovarian abscess 08/16/2018 Abdominal pain 08/16/2018 documented as of this encounter (statuses as of 09/22/2018) Social History Tobacco Use Types Packs/Day Years [...] on filedocumented in this encounter Progress Notes Radha Camargo - 09/22/2018 1:29 PM CDTCCHW- Vito Camargo called Ms. Islas per referral from VIVIANE Shepherd and was able to schedule a HV for new teaching and I will bring her a BP machine.Electronically signed by Radha Camargo at 2018 2:10 PM CDRadha Macedo - 09/22/2018 1:29 PM CDTCCHWJosé Miguel Webster. Mary Jo received a referral from VIVIANE Shepherd for new teaching so I will call the patient. documented in this encounter Plan of Treatment Date Type Specialty Care Team Description 09/30/2018 Patient Outreach Case Management Radha Camargo [address] [place] [address] Health Maintenance Due Date Last Done Comments [...]
--- OUTSIDE RECORDS SUMMARY | 2018-12-20 00:05 | XMS REPORT | Summary of Care ---
:1990 Author Organization [facility] Health Address [address] [place] [address] Care Team Providers Name Role Phone Briana Shepherd RN Case Manager Radha Camargo Community Health Worker Kody Walter MD Primary Care Provider Encounter Details Date Type Department Care Team Description 09/16/2018 Orders Only [facility] Doctor Unassigned, No [address] [facility] Name [place], [place] [id number] [place] [address] Allergies No Known Allergiesdocumented as of this encounter (statuses as of 09/16/2018) Medications Medication Sig Dispensed Refills Start Date [...] as of this encounter (statuses as of 09/16/2018) Active Problems Problem Noted Date Morbid obesity with body mass index of 40.0-49.9 08/16/2018 Tubo-ovarian abscess 08/16/2018 Abdominal pain 08/16/2018 documented as of this encounter (statuses as of 09/16/2018) Social History Tobacco Use Types Packs/Day Years [...] Signs Not on filedocumented in this encounter Plan of Treatment Health Maintenance Due Date Last Done Comments VARICELLA VACCINES (1 of 2 - 13+ 2001 2-dose series) DTaP,Tdap,and Td Vaccines (1 - 10/26/2007 Tdap) PAP SMEAR 03/04/2014 03/04/2011 INFLUENZA VACCINE 10/10/2018 PNEUMOCOCCAL 0-64 YEARS COMBINED Aged Out No longer eligible based on SERIES patient's age to complete this topic documented as of this encounter Procedures Procedure Name Priority Date/Time Associated Diagnosis Comments ASSIGNMENT OF BENEFITS Routine 09/16/2018 3:44 PM CDT documented in this encounter Results Not on filedocumented in this encounter
--- OUTSIDE RECORDS SUMMARY | 2018-12-20 00:05 | XMS REPORT | Summary of Care ---
:1990 Author Organization [address] [address] Care Team Providers Name Role Phone Briana Shepherd RN Case Manager Radha Camargo Community Health Worker Kody Walter MD Primary Care Provider Reason for Visit Reason Comments Follow-up confirm appt Encounter Details Date Type Department Care Team Description 09/29/2018 Patient Outreach [facility] Radha Camargo Follow-up ([address] ) [place] [address] Allergies No Known Allergiesdocumented as of this encounter (statuses as of 09/29/2018) Medications Medication Sig Dispensed Refills Start Date End Date Status acetaminophen 325 Take 2 tablets by 30 tablet 0 08/22/2018 Suspended mg mouth every 6 (six) 0 tabletIndications: hours as needed for Tubo-ovarian Temp > 38.5 C (for abscess fever, not for pain). ibuprofen 600 mg Take 1 tablet by 30 tablet 0 08/22/2018 Suspended tabletIndications: mouth every 6 (six) Tubo-ovarian hours as needed for abscess Temp > 38.5 C (ONLY for fever, not for pain please!). insulin aspart inject 12 Units 1 Vial 3 08/22/2018 Suspended RAPID 100 unit/mL under the skin 3 injectionIndication (three) times daily s: Tubo-ovarian with meals. abscess insulin glargine inject 34 Units 20 mL 2 08/22/2018 Suspended 100 unit/mL under the skin injectionIndication daily. s: Tubo-ovarian abscess insulin aspart Please give aspart sliding scale Q 4 hours; may give even if NPO. 1 Vial 2 08/22/2018 Suspended injectionIndication Blood glucose 150 - 180 give 1 units. s: Tubo-ovarian Blood glucose 181 - 210 give [...] more consecutive BG >300 or < 80 norgestimate-ethiny Take 1 tablet by 1 Package 12 09/16/2018 Suspended l estradiol 0.25-35 mouth daily. mg-mcg per tabletIndications: Encounter for initial prescription of contraceptive pills documented as of this encounter (statuses as of 09/29/2018) Active Problems Problem Noted Date Morbid obesity with body mass index of 40.0-49.9 08/16/2018 Tubo-ovarian abscess 08/16/2018 Abdominal pain 08/16/2018 documented as of this encounter (statuses as of 09/29/2018) Social History Tobacco Use Types Packs/Day Years [...] this encounter Progress Notes Radha Camargo - 09/29/2018 1:22 PM CDTCCHW- A. Mary Jo called Ms. Islas to confirm HV for tomorrow but she stated she was in the hospitalso I will call her next week to reschedule the HV. documented in this encounter Plan of Treatment Health Maintenance Due Date Last Done Comments VARICELLA VACCINES (1 of 2 - 13+ 2001 2-dose series) DTaP,Tdap,and Td Vaccines (1 - 10/26/2007 Tdap) PAP SMEAR 03/04/2014 03/04/2011 INFLUENZA VACCINE (#1) 2018 PNEUMOCOCCAL 0-64 YEARS COMBINED Aged Out No longer eligible based on SERIES patient's age to complete this topic documented as of this encounter Results Not on filedocumented in this encounter Insurance Payer Benefit Plan / Subscriber ID Effective Phone Address Type Group Dates MEDICAID MEDICAID PENDING 2018-[address] Pending PENDING PENDING [place] [id number] documented as of this encounter
--- OUTSIDE RECORDS SUMMARY | 2018-12-20 00:05 | XMS REPORT | Summary of Care ---
:1990 Author Organization [address] [address] Care Team Providers Name Role Phone Briana Shepherd insurance examining clerk Radha Camargo Community Health Worker Kody Walter MD Primary Care Provider Reason for Visit Reason Comments Forms obtaining completed [employer] application and proofs Encounter Details Date Type Department Care Team Description 09/22/2018 Patient Outreach [facility] Briana Shepherd, RN Forms ([address] completed [employer]ite [employer] [place] [place] [address] proofs) [phone] Allergies No Known Allergiesdocumented as of this [...] encounter Progress Notes Briana Shepherd RN - 09/22/2018 12:00 PM CDTCHP CM visited with the patient and obtained her completed application for [facility] and her proofs to be submitted as well. CM will make a copy and take originals to [facility] office. TIFFANIE Lugo, RN, [facility] Outpatient Credit Card ClerkBox Spring MakerUnc Health [facility] O: [phone] M: [phone] documented in this encounter Plan of Treatment Date Type Specialty Care Team Description 09/30/2018 Patient Outreach Case Management Radha Camargo [address] [place] [id number] Health Maintenance Due Date Last Done Comments [...]
--- OUTSIDE RECORDS SUMMARY | 2018-12-20 00:05 | XMS REPORT | Summary of Care ---
:1990 Author Organization [address] [address] Care Team Providers Name Role Phone Briana Shepherd leaf sucker operator Radha Camargo Community Health Worker Kody Walter MD Primary Care Provider Reason for Visit Reason Comments Forms obtaining completed [employer]App application and proofs Encounter Details Date Type Department Care Team Description 09/22/2018 Patient Outreach [facility] Briana Shepherd, RN Forms ([address] completed [employer]App [place] [employer] [place] [address] proofs) [phone] Allergies No Known Allergiesdocumented as of this [...] patient and obtained her completed application for [facility] and her proofs to be submitted as well. CM will make a copy and take originals to [facility] office. TIFFANIE Lugo, RN, [facility] Outpatient Flower CutterDrum CleanerNovant Health / [facility] O: [phone] M: [phone] documented in this encounter Plan of Treatment Date Type Specialty Care Team Description 09/30/2018 Patient Outreach Case Management Radha Camargo [address] [place] [address] Health Maintenance Due Date Last Done Comments [...]
--- OUTSIDE RECORDS SUMMARY | 2018-12-20 00:06 | XMS REPORT | Summary of Care ---
:1990 Author Organization [facility] Address [address] [place] [id number] Care Team Providers Name Role Phone Briana Shepherd RN Case Manager Radha Camargo Community Health Worker Kody Walter MD Primary Care Provider Reason for Referral Radiology Services (Routine) Status Reason Specialty Diagnoses / Referred By Referred To Procedures Contact Contact New Request Diagnostic Diagnoses Tubo-ovarian abscess Jeremie, Kris Radiology Procedures IR OTHER L [address] [address] (NELL) Status Reason Specialty Diagnoses / Referred By Referred To Procedures Contact Contact New Request RAD-VASCULAR & Diagnoses Tubo-ovarian abscess Jeremie, INTERVENTIONAL Procedures Discharge Follow-Up: Specialty Service RAD-VASCULAR & INTERVENTIONAL RADIOLOGY; 1 Week Kris L RADIOLOGY [address] [address] Radiology Services (STAT) Status Reason Specialty Diagnoses / Referred By Referred To Procedures Contact Contact New Request Diagnostic Diagnoses Tubo-ovarian abscess Calles, Radiology Procedures IR DRAINAGE BY CATHETER PERITONEAL OR RETROPERITONEAL IR ABSCESS MD Radha [address] [place] [address] (STAT) Status Reason Specialty Diagnoses / Referred By Referred To Procedures Contact Contact New Request Diagnostic Diagnoses Tubo-ovarian abscess Jaxson Kendall MD Radiology Procedures [place] BARIUM ENEMA [address] [place] [address] (STAT) Status Reason Specialty Diagnoses / Referred By Referred To Procedures Contact Contact New Request Diagnostic Diagnoses Tubo-ovarian abscess Jaxson Kendall MD Radiology Procedures [place] BARIUM ENEMA [address] [place] [address] MRI/CAT Scan (STAT) Status Reason Specialty Diagnoses / Referred By Referred To Procedures Contact Contact New Request Diagnostic Diagnoses Tubo-ovarian abscess Rosario Shannon Radiology Procedures CT ABDOMEN PELVIS W CONTRAST MD Misael [address] [place] [address] MRI/CAT Scan (STAT) Status Reason Specialty Diagnoses / Referred By Referred To Procedures Contact Contact New Request Diagnostic Diagnoses Tubo-ovarian abscess Rosario Shannon Radiology Procedures CT ABDOMEN PELVIS W CONTRAST MD Misael [address] [place] [address] Radiology Services (NELL) Status Reason Specialty Diagnoses / Referred By Referred To Procedures Contact Contact New Request Diagnostic Diagnoses Tubo-ovarian abscess Rosario Shannon Radiology Procedures US TRANSVAGINAL US TRANSVAGINAL MD Misael [address] [place] [address] MRI/CAT Scan (NELL) Status Reason Specialty Diagnoses / Referred By Referred To Procedures Contact Contact New Request Diagnostic Diagnoses Tubo-ovarian abscess Rosario Shannon Radiology Procedures CT ABDOMEN PELVIS W CONTRAST CT ABDOMEN PELVIS W CONTRAST MD Misael [address] [place] [address] Radiology Services (NELL) Status Reason Specialty Diagnoses / Referred By Referred To Procedures Contact Contact New Request Diagnostic Diagnoses Tubo-ovarian abscess Rosario Shannon Radiology Procedures US TRANSVAGINAL US TRANSVAGINAL MD Misael [address] [place] [address] MRI/CAT Scan (NELL) Status Reason Specialty Diagnoses / Referred By Referred To Procedures Contact Contact New Request Diagnostic Diagnoses Tubo-ovarian abscess Rosario Shannon Radiology Procedures CT ABDOMEN PELVIS W CONTRAST CT ABDOMEN PELVIS W CONTRAST MD Misael 301 COUNTS INCLUDE 234 BEDS AT [facility] [address] [place] [address] Reason for Visit Auth/Cert Status Reason Specialty Diagnoses / Referred By Referred To Procedures Contact Contact Transplant Surgery Diagnoses OVARIAN CYST [address] [place] [address] Encounter Details Date Type Department Care Team Description 09/28/2018 - Hospital Encounter Transplant/Gynecology Rosario Shannon Abdominal pain 10/06/2018 /Oncology (BRY[facility] 9D) MD Misael [address] [address] [id number] [place], [place] [id number] Allergies Active Allergy Reactions Severity Noted Date Comments Piperacillin-Tazobactam Anaphylaxis 09/29/2018 documented as of this encounter (statuses as of 10/06/2018) Medications Medication Sig Dispensed Refills Start Date End Date Status insulin aspart inject 12 Units 1 Vial 3 08/22/2018 Active RAPID 100 unit/mL under the skin 3 injectionIndicatio (three) times ns: Tubo-ovarian daily with meals. abscess insulin glargine inject 34 Units 20 mL 2 08/22/2018 Active 100 unit/mL under the skin injectionIndicatio daily. ns: Tubo-ovarian abscess insulin aspart Please give aspart sliding scale Q 4 hours; may give even if NPO. 1 Vial 2 08/22/2018 Active injectionIndicatio Blood glucose 150 - 180 give 1 units. ns: Tubo-ovarian Blood glucose 181 - 210 give [...] more consecutive BG >300 or < 80 norgestimate-ethin Take 1 tablet by 1 Package 12 09/16/2018 Active yl estradiol mouth daily. 0.25-35 mg-mcg per tabletIndications: Encounter for initial prescription of contraceptive pills traMADol 50 mg Take 1 tablet by 20 tablet 0 09/29/2018 Active tabletIndications: mouth every 6 Tubo-ovarian (six) hours as abscess needed for Pain (scale 7-10). linezolid 600 mg Take 1 tablet by 28 tablet 0 10/06/2018 Active tabletIndications: mouth every 12 Tubo-ovarian (twelve) hours. abscess acetaminophen 325 Take 2 tablets by 30 tablet 0 08/22/2018 09/30/19 Discontinued mg mouth every 6 19 tabletIndications: (six) hours as Tubo-ovarian needed for Temp > abscess 38.5 C (for fever, not for pain). ibuprofen 600 mg Take 1 tablet by 30 tablet 0 08/22/2018 09/30/19 Discontinued tabletIndications: mouth every 6 19 Tubo-ovarian (six) hours as abscess needed for Temp > 38.5 C (ONLY for fever, not for pain please!). linezolid 600 mg Take 1 tablet by 28 tablet 0 10/06/2018 10/07/19 Discontinued tabletIndications: mouth every 12 19 Tubo-ovarian (twelve) hours for abscess 14 days. documented as of this encounter (statuses as of 10/06/2018) Active Problems Problem Noted Date Bacteremia due to Enterococcus 10/02/2018 Bacteremia due to group B Streptococcus 10/02/2018 PID (acute pelvic inflammatory disease) 10/02/2018 Metabolic syndrome 10/02/2018 Type 2 diabetes mellitus with complication, without long-term current use of insulin Overview: Recurrent infections Morbid obesity with body mass index of 40.0-49.9 08/16/2018 Tubo-ovarian abscess 08/16/2018 Abdominal pain 08/16/2018 STD (sexually transmitted disease) documented as of this encounter (statuses as of 10/06/2018) Resolved Problems Problem Noted Date Resolved Date Bacteremia due to Streptococcus 10/02/2018 10/02/2018 documented as of this encounter (statuses as of 10/06/2018) Social History Tobacco Use Types Packs/Day Years [...] of this encounter Last Filed Vital Signs Vital Sign Reading Time Taken Comments Blood Pressure 116/69 10/06/2018 7:21 AM CDT Pulse 71 10/06/2018 7:21 AM CDT Temperature 37 C (98.6 F) 10/06/2018 7:21 AM CDT Respiratory Rate 20 10/06/2018 7:21 AM CDT Oxygen Saturation 100% 10/06/2018 7:21 AM CDT Inhaled Oxygen Concentration - - Weight 111.1 kg (245 lb) 09/28/2018 5:00 AM CDT Height 160 cm (5' 3") 09/28/2018 5:00 AM CDT Body Mass Index 43.4 09/28/2018 5:00 AM CDT documented in this encounter Progress Notes Patrick Vaughn RN - 10/06/2018 8:41 AM CDTCare Management Note 10/06/2018 8:41 AM Asked by primary team to provide patient with information about where to get her Linezolid antibiotic at a cheaper santos. Provided list of pharmacies in her area with [facility] discount prices. Patient has been given [employer] discount card. Patient requests that paper prescriptions be given to her so she can take them to the pharmacies with the best prices for each medication. Notified primary team. Patrick Vaughn RN (JV)-, BSN Postdoctoral Scientist [facility] Care Management (not for patient use) Office: [phone] [email or web address] Yanet Juan MD - 10/06/2018 6:25 AM CDT HD#7 PROGRESS NOTE 10/06/2018 6:25 AM SUBJECTIVE: Patient is doing well and is happy that drains could be placed. Pain is well controlled. Patient denies CP, SOB, dizziness, nausea, vomiting. OBJECTIVE: Patient Vitals for the past 24 hrs: BP Temp Temp src Pulse Resp SpO2 10/06/18 0342 123/59 36.8 C (98.3 F) Oral 78 20 100 % 10/05/18 2348 123/62 36.8 C (98.3 F) Oral 76 18 100 % 10/05/18 1915 124/67 36.9 C (98.5 F) Oral 70 18 100 % 10/05/18 1742 115/50 78 18 98 % 10/05/18 1732 100/40 71 19 100 % 10/05/18 1724 (!) 87/43 70 18 100 % 10/05/18 1703 125/50 75 16 100 % 10/05/18 1653 126/46 84 12 100 % 10/05/18 1615 (!) 145/74 83 18 100 % 10/05/18 1518 121/69 36.7 C (98.1 F) Oral 80 16 100 % 10/05/18 1146 128/70 36.8 C (98.2 F) Oral 68 18 100 % 10/05/18 0753 119/66 36.3 C (97.3 F) Oral 68 18 100 % Intake/Output Summary (Last 24 hours) at 10/06/2018 0625 Last data filed at 10/06/2018 0600 Gross per 24 hour Intake 1584 ml Output 1730 ml Net -146 ml GEN:NAD, A&O x 3 CV:RRR, no MGR, normal S1/S2 PULM:CTAB, no WRR, good inspiratory effort ABD:+BS, soft, minimally TTP, ND, no rebound or guarding EXT:No C/C/E, no calf tenderness : deferred Drains: Bandages clean, dry, and intact bilaterally ASSESSMENT/PLAN: Stacy Islas is a 27 year old [id number] bilateral TOAs, now s /p IR drainage on 10/05. Stable vitals. Afebrile throughout admission. HD#7 Recurrent TOA - Admission to [facility] mid-August 2018 for similar presentation; no site for IR access at that time - clinical improvement when treated with cefoxitin x5d, doxycycline x7d, ceftriaxone x2d, metronidazole x2d per ID recommendations - discharged on keflex, doxycyline -- reports compliance - hx PID April 2018 when undergoing appendectomy - Leukocytosis with WBC at OSH 20.4, 16.19 on admission, dropped to 11.8 on 09/29 , repeat pending today -Remained afebrile throughout admission - CTAPfrom OSHshowing bilateralovarian cysts and possible tubo-ovarian abscess with retroperitoneal lymphadenopathy; Right ovary measures 9.3x6x7.1cm. Left ovary measures 5.8x5.2x7.5cm. -CT re-performed at [facility]: "Overall mild improvement of the adnexal inflammatory changes with interval decrease in the number of adnexal hypodense fluid collections compared to prior examination which are favored to represent bilateral tubo-ovarian abscesses. Complex ovarian cysts are also of consideration. The largest of these fluid collections measures 6.3 cm on the left and 6.2 cm on the right." - Pain: tramadol 50 mg q6hrs PRN for pain(has decreased use of Tramadol) - Fever: Ibuprofen only if patient fevers (not for pain) - Blood culture 09/28 +Enterococcus, +S. Agalactiae, repeat culture negative. - Urine culture +E. coli -now s/p IR drainage on 10/05: left TOA yielded purulent drainage, right TOA serous drainage. Cultures pending. -WBC stable at 10.7 -Drain output: total 150 cc right drain, 20 cc left drain Bacteremia -Enterococcus and GBS, repeat culture negative on 09/30 -Will continue vanc for 14 days per ID from negative blood culture (Day 5) -Currently on Vanc 1750mg Q8H -Vanc trough overnight 12.1 (still subtherapeutic) -Plan: Will discuss with ID what dosage to increase to Anaphylactic Reaction - allergic reaction to zosyn causing facial swelling, coughing, difficulty breathing - received epinephrine x1, benadryl 50mg, racemic nebulized epinephrine, solumedrol - currently reports she is back to baseline - per ID, was switched to vancomycin, metronidazole, doxycycline -on 10/05: now recommend discontinuing above abx and switching to Linezolid T2DM - reports no longer on metformin, only taking insulin since last hospital discharge; reports sugars at home 120s-140s - A1c 7.8 on 09/28/2018 - on SSI Novolog TID with meals + glargine 34 U QHS - FSBG Fasting 110's, 2h PP 90-150's rare 200's, will keep regimen for now MRSA PCR+ - chlorhexidine baths ordered Dispo: -S/p IR drainage on 10/05. Plan to discharge with drains in place -Per ID recs, discontinued Vanc/Doxy/Flagyl and started Linezolid 600 mg q12H ( plan for 2 weeks). Will speak with healthcare marketer to make sure patient can obtain this medication when outpatient -Plan for discharge today. Will follow up cultures and speak with ID if any abx regimen needs to be changed. Will make appointment for IR to remove drain outpatient. Yanet Bey MD #[id number], PGY3 10/06/2018 6:25 AM Associated attestation - Kris Chao - 10/06/2018 12:32 PM CDTI evaluated patient this morning with resident team on rounds. She feels some pain in the area of the transcutaneous pelvic drains which were placed by IR on yesterday. She is otherwise doing well. Shehas a moderate amount of slightly purulent drainage from the left drain, clear serous drainage of lesser volume on the right side. She will be okay for discharge to home with oral antibiotics to continue, linezolid as recommended by Phillip Triplett MD - 10/05/2018 8:44 PM CDT INFECTIOUS DISEASES PROGRESS NOTE: Reason For Consult: Recurrent or relapsing tuboovarian abscess Subjective: - nauseated this am with one episode of non bloody emesis. No fever/chills overnight - would like surgical intervention or drainage of abscess as she is rehospitalized every month and the associated pain prevented her from performing daily activities. Antibiotics: Vancomycin 09/30- Metronidazole 09/28- Doxycycline 09/28- Objective: Vitals: 10/05/18 1703 10/05/18 1724 10/05/18 1732 10/05/18 1742 BP: 125/50 (!) 87/43 100/40 115/50 Pulse: 75 70 71 78 Resp: 16 18 19 18 Temp: TempSrc: SpO2: 100% 100% 100% 98% Weight: Height: General: alert and oriented, appears comfortable ENT: oropharynx clear; moist mucous membranes Lungs: CTA Cardio: S1, S2 normal; no murmurs, rubs or gallops GI: abdomen soft; tender on deep palpation of RLQ no guarding or rebound Extremities: no clubbing, cyanosis, or edema Skin: no ulcers or intertrigo between skin fold Neuro: no focal deficits Labs: WBC x10^3 Date/Time Value Ref Range Status 03/04/2011 10:07 AM 9.0 4.0 - 10.0 /CMM Final WBC Date/Time Value Ref Range Status 10/03/2018 10:43 AM 10.94 4.30 - 11.10 10*3/L Final HGB Date/Time Value Ref Range Status 10/03/2018 10:43 AM 9.1 (L) 11.6 - 15.0 g/dL Final 03/04/2011 10:07 AM 13.1 11.5 - 15.5 G/DL Final PLT x10^3 Date/Time Value Ref Range Status 03/04/2011 10:07 AM 234 150 - 400 /CMM Final PLT Date/Time Value Ref Range Status 10/03/2018 10:43 AM 376 (H) 166 - 358 10*3/L Final CREATININE Date/Time Value Ref Range Status 10/04/2018 04:26 PM 0.74 0.50 - 1.04 mg/dL Final GLUCOSE Date/Time Value Ref Range Status 10/04/2018 04:26 PM 153 (H) 70 - 110 mg/dL Final ALT(SGPT) Date/Time Value Ref Range Status 08/15/2018 08:11 PM 10 9 - 51 U/L Final AST(SGOT) Date/Time Value Ref Range Status 08/15/2018 08:11 PM 24 13 - 40 U/L Final ALK PHOS Date/Time Value Ref Range Status 08/15/2018 08:11 PM 177 (H) 34 - 122 U/L Final Microbiology: 09/28/2018 Blood culture enterococcus and streptococcus agalactiae 02/10, and 02/09 coagulase negative staph 10/05/2018 TOA cultures - pending Radiology: IR 10/05/2018 drain placement into bilateral TOA FL Barium IMPRESSION No extraluminal contrast leakage or fistulous communication is identified in the urinary calculus is slightly was observed. Assessment: 27 year old female with # Bilateral tuboovarian abscesses failing medical therapy # polymicrobial enterococcus faecalis and GBS bacteremia Patient's second hospitalization for TOA in last 6 weeks, also with polymicrobial enterococcus faecalis and GBS bacteremia during this admission. She developed anaphylactoid reaction to pip/tazo despite prior history of taking amoxicillin without issues. She has been receiving second line abx for GBSand e faecalis. IR was able to insert bilateral tubes into TOA 10/05, cultures are pending at this time. Provided adequate drainage, source is somewhat address at this time, she has received 7 days IVtherapy for bacteremia , will switch over to oral therapy linezolid 600 mg q12hr. Linezolid recentlyhas been added to generic medication, please ask social problems specialist to educate patient on GoodRx and other resources for obtaining linezolid. Patient will need outpatient follow up with IR for routine abscessogram to evaluate for optimal removal window, ideally appointment scheduled before patient leaves hospital. Other Hospital Problems: # PCOS # DM #History of STD #morbid obesity Recommendations: - stop vancomycin, metronidazole and doxycycline. - please obtain CBC with diff ensuring not thrombocytopenic - start linezolid 600 mg PO bid if not thrombocytopenic, please provide script for at least 2 weeks therapy continue if tubes are still draining at that time. - please educate patient on tube flushing required daily - please get social problems specialist to educate on goodrx and other sources of obtaining linezolid The above patient was discussed with Dr. Griffin Mcqueen PGY5 Infectious Disease Fellow Associated attestation - Eleanor Moya Jr., MD - 10/05/2018 9:11 PM CDTAfter reviewing the details of the history, exam, and data with the housestaff, I personally examined the patient and agree with the comprehensive fellow's note as written by Dr. Mcqueen regarding service on 10/05/2018. I actively participated in the decision-making process. Please see the fellow's note for additional details. Pt with large tubo-ovarian abscess. She has grown E faecalis and Group B Strep, both of which are best treated with penicillins. Vancomycin is not very effective in abscesses and high risk of failure with medical therapy. Could try linezolid as an alternative, if patient couldafford it. However, without a third republican payer, this may not be possible. Jessica Medina Kevin, JEFF - 10/05/2018 5:32 PM CDTPatient tolerated procedure well. No apparent distress. Securing drains at this time. Patrick Eaton RN - 10/05/2018 1:54 PM CDTCare Management Note 10/05/2018 1:54 PM Received call from Dr. Mcqueen with infectious disease consulting service. asked me to pass along her number to primary team as ID may no longer be recommending IV ABX treatment for patient. Passed along MD's number to primary team. CM will continue to follow patient for DC needs. Patrick Ruiz "MEGHANA Vaughn RN-BC, BSN Postdoctoral Scientist [facility] Care Management (not for patient use) Office: [phone] [email or web address], Yanet Faith MD - 10/05/2018 6:46 AM CDT HD#6 PROGRESS NOTE 10/05/2018 6:47 AM SUBJECTIVE: Patient is doing well, sleeping comfortably. Pain is well controlled (has not used tramadol x 2 days). OBJECTIVE: Patient Vitals for the past 24 hrs: BP Temp Temp src Pulse Resp SpO2 10/05/18 0355 124/64 36.9 C (98.5 F) Oral 71 18 98 % 10/04/18 2331 105/60 36.8 C (98.2 F) Oral 78 18 100 % 10/04/18 2000 119/68 36.7 C (98 F) Oral 72 20 100 % 10/04/18 1523 103/56 37 C (98.6 F) Oral 73 18 100 % 10/04/18 1129 115/57 36.8 C (98.2 F) Oral 69 18 100 % 10/04/18 0740 116/59 36.7 C (98 F) Oral 74 18 99 % Intake/Output Summary (Last 24 hours) at 10/05/2018 0647 Last data filed at 10/05/2018 0600 Gross per 24 hour Intake 1794 ml Output 1320 ml Net 474 ml GEN:NAD, A&O x 3 CV:RRR, no MGR, normal S1/S2 PULM:CTAB, no WRR, good inspiratory effort ABD:+BS, soft, mildly TTP, ND, no rebound or guarding EXT:No C/C/E, no calf tenderness : deferred ASSESSMENT/PLAN: Stacy Islas is a 27 year old [id number] suspected TOA , Good urine output,reports increased RLQ pain o/n. Stable vitals. Afebrile throughout admission. HD#6 Recurrent TOA - Admission to [facility] mid-August 2018 for similar presentation; no site for IR access at that time - clinical improvement when treated with cefoxitin x5d, doxycycline x7d, ceftriaxone x2d, metronidazole x2d per ID recommendations - discharged on keflex, doxycyline -- reports compliance - hx PID April 2018 when undergoing appendectomy - Leukocytosis with WBC at OSH 20.4, 16.19 on admission, dropped to 11.8 on 09/29 , repeat pending today -Remained afebrile throughout admission - CTAPfrom OSHshowing bilateralovarian cysts and possible tubo-ovarian abscess with retroperitoneal lymphadenopathy; Right ovary measures 9.3x6x7.1cm. Left ovary measures 5.8x5.2x7.5cm. -CT re-performed at [facility]: "Overall mild improvement of the adnexal inflammatory changes with interval decrease in the number of adnexal hypodense fluid collections compared to prior examination which are favored to represent bilateral tubo-ovarian abscesses. Complex ovarian cysts are also of consideration. The largest of these fluid collections measures 6.3 cm on the left and 6.2 cm on the right." - Pain: tramadol 50 mg q6hrs PRN for pain(has taken Tramadol q6H) - Fever: Ibuprofen only if patient fevers (not for pain) - Blood culture 09/28 +Enterococcus, +S. Agalactiae, repeat culture negative. Plan per ID is to continue Vanc for total of 14 days from negative culture due to bacteremia and PCN allergy. In addition to 6 weeks of oral doxycycline and 2 weeks of oral flagyl. - Urine culture +E. coli -Per IR, no drainage at this time - ID consulted -- concern for possible actinomyces vs fistulizing disease; advise patient to remain in house until not persistently bacteremic. Barium enema performed no evidence of fistulizing disease. Bacteremia -Enterococcus and GBS, repeat culture negative on 09/30 -Will continue vanc for 14 days per ID from negative blood culture (Day 5) -Currently on Vanc 1750mg Q8H -Vanc trough overnight 12.1 (still subtherapeutic) -Plan: Will discuss with ID what dosage to increase to Anaphylactic Reaction - allergic reaction to zosyn causing facial swelling, coughing, difficulty breathing - received epinephrine x1, benadryl 50mg, racemic nebulized epinephrine, solumedrol - currently reports she is back to baseline - per ID, switch to vancomycin, metronidazole, doxycycline T2DM - reports no longer on metformin, only taking insulin since last hospital discharge; reports sugars at home 120s-140s - A1c 7.8 on 09/28/2018 - on SSI Novolog TID with meals + glargine 34 U QHS - FSBG Fasting 110's, 2h PP 90-150's rare 200's, will keep regimen for now MRSA PCR+ - chlorhexidine baths ordered Dispo -ID recommends surgical drainage due to the recurrent nature of the disease and bacteremia. However,imaging and WBC improving. In addition, surgery has risks injury to surrounding organs and bleeding,due to adhesive pelvic disease. Risks of losing both ovaries and premature menopause. -Pt continues to improve on IV antibiotics. Plan for discharge on IV abx with repeat imaging in the future. Pt desires to go home to take care of her children. Per ID recs, once therapeutic on Vanc, can discharge on IV therapy. Will consult healthcare marketer for discharge planning. -IR unable to obtain appropriate window for drainage -Patient to stay on Vanc for 14 days from negative culture (till 10/12 per ID note ), Doxy for 6 weeks (11/09). Flagyl for 2 weeks (10/12). Yanet Bey MD #[id number], PGY3 10/05/2018 6:47 AM Associated attestation - Kris Chao - 10/05/2018 10:00 PM CDTI evaluated patient with Dr Bey and I agree with her progress note as documented. Patient hasrecurrence of TOA but has improved subjectively and objectively with current antimicrobial therapy.Recommendation for surgical therapy has been made by ID consultants but I do not agree with recommendation. I explained to patient that there is a significant risk to performing pelvic surgery in the presence of active infection. If she is improving on medical therapy it is most appropriate to continue that therapy and proceed with surgical tx after resolution of inflammatory process (usually a matter of weeks or a few months at most). If she were not improving, then risk of surgery would be more reasonable after failed medical therapy. Less invasive procedure such as IR drainage is acceptable if IR feels they have access to abscess. If they cannot do so, we will continue current therapy and consider arrangement for continued IV antibiotic therapy at home.Phillip Mcqueen MD - 10/04/2018 6:38 PM CDT INFECTIOUS DISEASES PROGRESS NOTE: Reason For Consult: Recurrent or relapsing tuboovarian abscess Subjective: - still has lower abdominal pain on deep palpation and movement - denied dysuria or back pain or diarrhea or rash at this time. - Wishes for surgery to adequately remove the abscess. Antibiotics: Vancomycin 09/30- Metronidazole 09/28- Doxycycline 09/28- Objective: Vitals: 10/04/18 0400 10/04/18 0740 10/04/18 1129 10/04/18 1523 BP: 100/56 116/59 115/57 103/56 Pulse: 80 74 69 73 Resp: 18 18 18 18 Temp: 36.5 C (97.7 F) 36.7 C (98 F) 36.8 C (98.2 F) 37 C (98.6 F ) TempSrc: Oral Oral Oral Oral SpO2: 100% 99% 100% 100% Weight: Height: General: alert and oriented, appears comfortable ENT: oropharynx clear; moist mucous membranes Lungs: CTA Cardio: S1, S2 normal; no murmurs, rubs or gallops GI: abdomen soft; tender on deep palpation of suprapubic region Extremities: no clubbing, cyanosis, or edema Skin: no ulcers or intertrigo between skin fold Neuro: no focal deficits Labs: WBC x10^3 Date/Time Value Ref Range Status 03/04/2011 10:07 AM 9.0 4.0 - 10.0 /CMM Final WBC Date/Time Value Ref Range Status 10/03/2018 10:43 AM 10.94 4.30 - 11.10 10*3/L Final HGB Date/Time Value Ref Range Status 10/03/2018 10:43 AM 9.1 (L) 11.6 - 15.0 g/dL Final 03/04/2011 10:07 AM 13.1 11.5 - 15.5 G/DL Final PLT x10^3 Date/Time Value Ref Range Status 03/04/2011 10:07 AM 234 150 - 400 /CMM Final PLT Date/Time Value Ref Range Status 10/03/2018 10:43 AM 376 (H) 166 - 358 10*3/L Final CREATININE Date/Time Value Ref Range Status 10/04/2018 04:26 PM 0.74 0.50 - 1.04 mg/dL Final GLUCOSE Date/Time Value Ref Range Status 10/04/2018 04:26 PM 153 (H) 70 - 110 mg/dL Final ALT(SGPT) Date/Time Value Ref Range Status 08/15/2018 08:11 PM 10 9 - 51 U/L Final AST(SGOT) Date/Time Value Ref Range Status 08/15/2018 08:11 PM 24 13 - 40 U/L Final ALK PHOS Date/Time Value Ref Range Status 08/15/2018 08:11 PM 177 (H) 34 - 122 U/L Final Microbiology: 09/28/2018 Blood culture enterococcus and streptococcus agalactiae 02/10, and 02/09 coagulase negative staph Radiology: CT A/P from OSH 09/28/2018 PELVIS/BLADDER: The urinary bladder is decompressed and the garcia do not appear thickened. The uterus is mildly enlarged and the bilateral ovaries contain multiple hypodense lesions with mildly enhancing garcia suggestive of cysts or fluid collections/tubo-ovarian abscesses with surrounding inflammatory fat stranding. The number of hypodense lesions has decreased especially on the left ovary from prior examination. The largest lesion on the left measures 6.3 cm, and the largest hypodense lesion on the right measures 6.2 cm . FL Barium IMPRESSION No extraluminal contrast leakage or fistulous communication is identified in the urinary calculus is slightly was observed. Assessment: 27 year old female with # Bilateral tuboovarian abscesses failing medical therapy # polymicrobial enterococcus faecalis and GBS bacteremia At this time, patient is on vancomycin due to intolerance of pip/tazo for enterococcus faecalis and GBS bacteremia. Metronidazole and doxycycline are both non penicillin based regimen given relapsing PID. Vancomycin is aim to treat her for polymicrobial bacteremia GBS and enterococcus faecalis, and the underlying abscess not likely to be fully addressed on current regimen given lack of source control and specific culture data. Patient is at likelyhood to fail medical therapy again without surgical intervention. Other Hospital Problems: # PCOS # DM #History of STD #morbid obesity Recommendations: - Source control via drainage or wash out of tuboovarian abscess - vancomycin for GBS and enterococcus bacteremia through 10/12 if clinically stable and without recurrent fever or septic episodes. Trough goal for vancomycin 15-20. - continue PO flagyl and doxycycline The above patient was discussed with Dr. Griffin Mcqueen PGY5 Infectious Disease Fellow Associated attestation - Eleanor Moya Jr., MD - 10/04/2018 7:53 PM CDTAfter reviewing the details of the history, exam, and data with the housestaff, I personally examined the patient and agree with the comprehensive fellow's note as written by Dr. Mcqueen regarding service on 10/04/2018. I actively participated in the decision-making process. Please see the fellow's note for additional details. Pt with recurrent tubo-ovarian abscess that has failed medical therapy. On top of that, patient with an anaphylactic reaction to zosyn, leaving her with second line antibiotics. Given the large, multiloculated abscesses and relatively resistant organisms, medical cure may not be possible. Yessica Medina Melanie Elyse, MD - 10/04/2018 6:39 AM CDT HD#5 PROGRESS NOTE 10/04/2018 6:40 AM SUBJECTIVE: Patient is sleeping comfortably. Pain is well controlled. Patient denies CP, SOB, dizziness, nausea, vomiting. OBJECTIVE: Patient Vitals for the past 24 hrs: BP Temp Temp src Pulse Resp SpO2 10/04/18 0400 100/56 36.5 C (97.7 F) Oral 80 18 100 % 10/04/18 0000 120/65 36.7 C (98.1 F) Oral 75 18 100 % 10/03/18 2000 116/67 36.8 C (98.3 F) Oral 72 20 100 % 10/03/18 1605 134/80 36.9 C (98.4 F) Oral 71 20 100 % 10/03/18 1150 132/65 36.7 C (98.1 F) Oral 70 20 100 % 10/03/18 0821 131/73 36.6 C (97.9 F) Oral 80 20 100 % Intake/Output Summary (Last 24 hours) at 10/04/2018 0640 Last data filed at 10/03/2018 1800 Gross per 24 hour Intake 2517 ml Output 1100 ml Net 1417 ml GEN:NAD, A&O x 3 CV:RRR, no MGR, normal S1/S2 PULM:CTAB, no WRR, good inspiratory effort ABD:+BS, soft, mildly TTP, ND, no rebound or guarding EXT:No C/C/E, no calf tenderness : deferred ASSESSMENT/PLAN: Stacy Islas is a 27 year old [id number] suspected TOA , Good urine output,reports increased RLQ pain o/n. Stable vitals. Afebrile throughout admission. HD#5 Recurrent TOA - Admission to [facility] mid-August 2018 for similar presentation; no site for IR access at that time - clinical improvement when treated with cefoxitin x5d, doxycycline x7d, ceftriaxone x2d, metronidazole x2d per ID recommendations - discharged on keflex, doxycyline -- reports compliance - hx PID April 2018 when undergoing appendectomy - Leukocytosis with WBC at OSH 20.4, 16.19 on admission, dropped to 11.8 on 09/29 , repeat pending today -Remained afebrile throughout admission - CTAPfrom OSHshowing bilateralovarian cysts and possible tubo-ovarian abscess with retroperitoneal lymphadenopathy; Right ovary measures 9.3x6x7.1cm. Left ovary measures 5.8x5.2x7.5cm. -CT re-performed at [facility]: "Overall mild improvement of the adnexal inflammatory changes with interval decrease in the number of adnexal hypodense fluid collections compared to prior examination which are favored to represent bilateral tubo-ovarian abscesses. Complex ovarian cysts are also of consideration. The largest of these fluid collections measures 6.3 cm on the left and 6.2 cm on the right." - Pain: tramadol 50 mg q6hrs PRN for pain(has taken Tramadol q6H) - Fever: Ibuprofen only if patient fevers (not for pain) - Blood culture 09/28 +Enterococcus, +S. Agalactiae, repeat culture negative. Plan per ID is to continue Vanc for total of 14 days from negative culture due to bacteremia and PCN allergy. In addition to 6 weeks of oral doxycycline and 2 weeks of oral flagyl. - Urine culture +E. coli -Per IR, no drainage at this time - ID consulted -- concern for possible actinomyces vs fistulizing disease; advise patient to remain in house until not persistently bacteremic. Barium enema performed no evidence of fistulizing disease. Bacteremia -Enterococcus and GBS, repeat culture negative on 09/30 -Will continue vanc for 14 days per ID from negative blood culture (Day 3) -Currently on Vanc 1750mg Q8, trough subtherapeutic on 1500. Will assess new vanc trough (~1800) Anaphylactic Reaction - allergic reaction to zosyn causing facial swelling, coughing, difficulty breathing - received epinephrine x1, benadryl 50mg, racemic nebulized epinephrine, solumedrol - currently reports she is back to baseline - per ID, switch to vancomycin 1500mg q8, metronidazole, doxycycline T2DM - reports no longer on metformin, only taking insulin since last hospital discharge; reports sugars at home 120s-140s - A1c 7.8 on 09/28/2018 - on SSI Novolog TID with meals + glargine 34 U QHS - FSBG Fasting 110's, 2h PP 90-150's rare 200's, will keep regimen for now MRSA PCR+ - chlorhexidine baths ordered Dispo -ID recommends surgical drainage due to the recurrent nature of the disease and bacteremia. However,imaging and WBC improving. In addition, surgery has risks injury to surrounding organs and bleeding,due to adhesive pelvic disease. Risks of losing both ovaries and premature menopause. Will keep patient in house for now, consider surgery if patient fails to improve. -If patient continues to improve with antibiotics will consider discharge on antibiotics for close follow up and repeat imaging in the future. Pt desires to go home to take care of her children. Per IDrecs, once therapeutic on Vanc, can consider discharge. Will consult healthcare marketer for discharge planning. -Patient to stay on Vanc for 14 days from negative culture (till 10/12 per ID note ), Doxy for 6 weeks (11/09). Flagyl for 2 weeks (10/12). Yanet Bey MD #[id number], PGY3 10/04/2018 6:40 AM Associated attestation - Subhash Marti - 10/04/2018 10:15 PM CDTI personally examined the patient on 8.26.[address] Glaser's resident note as written . Iactively participated in the decision-making process. Please see the resident's note for additionaldetails. Malini Cerda MD - 10/03/2018 11:34 AM CDT INFECTIOUS DISEASES PROGRESS NOTE: 10/03/2018 11:34 Reason For Consult: TOV recurrent Subjective: Overnight patient reported no events Still has lower abdominal pain Afebrile Antibiotics: Vancomycin Metronidazole doxycycine Objective: Vitals: 10/02/18 2000 10/03/18 0000 10/03/18 0400 10/03/18 0821 BP: 129/65 108/63 114/69 131/73 Pulse: 86 78 75 80 Resp: 20 20 20 20 Temp: 36.8 C (98.3 F) 36.6 C (97.9 F) 36.5 C (97.7 F) 36.6 C ( 97.9 F) TempSrc: Oral Oral Oral Oral SpO2: 96% 99% 98% 100% Weight: Height: General: alert and oriented, no apparent distress, obese Eyes: EOMI, anicteric sclerae ENT: oropharynx clear; moist mucous membranes Lungs: CTA Cardio: S1, S2 GI: abdomen soft; non-tender; non-distended; normoactive bowel sounds : deep RLQ tenderness, no rebound tenderness. No suprapubic tenderness Extremities: no clubbing, cyanosis, or edema Skin: warm and dry - some intertrigo in between skin folds Neuro: no focal deficits Hem/lymph: no LAD Labs: WBC x10^3 Date/Time Value Ref Range Status 03/04/2011 10:07 AM 9.0 4.0 - 10.0 /CMM Final WBC Date/Time Value Ref Range Status 10/03/2018 10:43 AM 10.94 4.30 - 11.10 10*3/L Final HGB Date/Time Value Ref Range Status 10/03/2018 10:43 AM 9.1 (L) 11.6 - 15.0 g/dL Final 03/04/2011 10:07 AM 13.1 11.5 - 15.5 G/DL Final PLT x10^3 Date/Time Value Ref Range Status 03/04/2011 10:07 AM 234 150 - 400 /CMM Final PLT Date/Time Value Ref Range Status 10/03/2018 10:43 AM 376 (H) 166 - 358 10*3/L Final CREATININE Date/Time Value Ref Range Status 09/28/2018 06:18 AM 0.73 0.50 - 1.04 mg/dL Final GLUCOSE Date/Time Value Ref Range Status 09/28/2018 06:18 AM 138 (H) 70 - 110 mg/dL Final ALT(SGPT) Date/Time Value Ref Range Status 08/15/2018 08:11 PM 10 9 - 51 U/L Final AST(SGOT) Date/Time Value Ref Range Status 08/15/2018 08:11 PM 24 13 - 40 U/L Final ALK PHOS Date/Time Value Ref Range Status 08/15/2018 08:11 PM 177 (H) 34 - 122 U/L Final Microbiology: - Gc/chlamydia 08/16/2018: negative - 08/18: Ucx Negative - 09/28: MRSA screens positive - 09/28: 2/2 Bcx-> Enterococcus and Strep Agalactiae - Ucx 09/28 10-100k CFU E coli Radiology: - CT A/P from OSH 09/28/2018 PELVIS/BLADDER: The urinary bladder is decompressed and the garcia do not appear thickened. The uterus is mildly enlarged and the bilateral ovaries contain multiple hypodense lesions with mildly enhancing garcia suggestive of cysts or fluid collections/tubo-ovarian abscesses with surrounding inflammatory fat stranding. The number of hypodense lesions has decreased especially on the left ovary from prior examination. The largest lesion on the left measures 6.3 cm, and the largest hypodense lesion on the right measures 6.2 cm . FL Barium IMPRESSION No extraluminal contrast leakage or fistulous communication is identified in the urinary calculus is slightly was observed. Assessment: 27 year-old F # Persistent b/l TOV abscesses despite treatment # Colonic stranding on prior Ct scan # Enterococcal and Strep bacteremia # Poorly controlled DM Patient presented after a hx of likely TOV 2/2 GBS on 04/2018. Patient presented after > 5 weeks with RLQ pain with fevers and leukocytosis WBC 16k. CT A/P showed overall improvement of the collections L>R improvement, largest lesions around 6cm in size. TV US showed enlarged ovaries with increased vascularity consistent with TOA. IR consulted, not a good window for drainage. Bcx on admission after doxycycline grew Strep and Enterococcus, both GI jose l which are concerning for possible fistula given prior CT scan. Reviewed scan with radiology, there is some inflammation on bowels on current scan and past scan, unable to determine initial source. FL barium test negative for leakage. Our recommendations is that in lieu of recurrent (3rd episode) of pelvic infections, with abscess formation and now complicated by Enterococcus faecalis and GBS bacteremia, patient needs surgical approach for drainage and source of infection control. Patient will also need to be on IV vancomycin for 14 days since 09/28 ( EOT: 10/12/18) and PO flagyl and Doxycycline. The last one will be given for concerns of Actinomycosis because patient presented allergy to PNC. # Zosyn allergic reaction - patient has tolerated amoxicillin in 2014. Patient had obvious reaction to zosyn after 10-15 min of infusion which resolved after epi pen, inhalers and antihistamines. Currently not a candidate of testing due to H2 blockers. Patient will benefit from testing as outpatient, as she will need amoxicillin as outpatient. Others: # PCOS # Dm2 # Morbid obesity # recurrent UTI- Ucx on admission grew endogenous jose l and E coli 10-100k CFU, no UA available. NO current symptoms. Recommendations: -RECOMMEND SURGICAL ABSCESS DRAINAGE - Continue Vancomycin IV until 10/12/18 -increase vancomycin to 1.75 gr TID and follow level before 4th dose. Patient cannot be discharged until stable levels obtain -Follow BMP tomorrow -Continue PO flagyl and Doxycycline. Thank you for this consult. Plan discussed with ID faculty. Please call with any questions. Associated attestation - Barry Sylvester MD - 10/04/2018 6:38 AM CDTI personally examined the patient on 10/03/[address] Montenegro's note as written. I actively participated in the decision-making process. Please see the fellow's note for additional details.Charles Ruiz MD - 10/03/2018 8:57 AM CDT DAILY PROGRESS NOTE Hospital Day: 6 Subjective: Patient is a 27 year old female admitted for: ICD-10-CM ICD-9-CM 1. Tubo-ovarian abscess N70.93 614.2 . Significant overnight events: stable and no changes. Stable pain. Tolerating PO Objective: Vital Signs: Patient Vitals for the past 24 hrs: BP BP source Pulse Resp Temp Temp src SpO2 10/03/18 0821 131/73 Right arm 80 20 36.6 C (97.9 F) Oral 100 % 10/03/18 0400 114/69 Right arm 75 20 36.5 C (97.7 F) Oral 98 % 10/03/18 0000 108/63 Right arm 78 20 36.6 C (97.9 F) Oral 99 % 10/02/18 2000 129/65 86 20 36.8 C (98.3 F) Oral 96 % 10/02/18 1800 127/67 77 20 36.7 C (98.1 F) Oral 100 % 10/02/18 1205 116/61 Right arm 64 18 36.7 C (98 F) Oral 100 % Constitutional: alert, no apparent distress, appearing age appropriate Respiratory: good inspiratory effort to inspections, lungs clear to auscultation Cardiovascular: regular rate and rhythm, no murmurs, gallops or rubs, no clubbing, cyanosis or edema,pulses equal Gastrointestinal: Abdomen soft, non-tender, nondistended Labs: CBC BMP PT/INR WBC x10^3 (/CMM) Date Value 03/04/2011 9.0 WBC (10*3/L) Date Value 09/29/2018 11.88 (H) NA (mmol/L) Date Value 09/28/2018 138 No results found for: PT RBC x10^6 (/CMM) Date Value 03/04/2011 4.31 RBC (10*6/L) Date Value 09/29/2018 3.73 (L) K (mmol/L) Date Value 09/28/2018 3.6 INR (no units) Date Value 10/01/2018 1.1 PLT x10^3 (/CMM) Date Value 03/04/2011 234 PLT (10*3/L) Date Value 09/29/2018 378 (H) CALCIUM (mg/dL) Date Value 09/28/2018 9.2 HGB Date Value 09/29/2018 9.8 g/dL (L) 03/04/2011 13.1 G/DL CL (mmol/L) Date Value 09/28/2018 103 aPTT HCT (%) Date Value 09/29/2018 30.9 (L) 03/04/2011 38.9 BUN (mg/dL) Date Value 09/28/2018 10 No results found for: APTTPAT CREATININE (mg/dL) Date Value 09/28/2018 0.73 Beta HCG Serum No results found for: PREGSERUM Recent Results (from the past 177604 hour(s)) URINE CULTURE Collection Time: 09/28/18 11:55 AM Susceptibility Escherichia coli - SUSCEPTIBILITY TESTING* Amoxacillin/Clavulanic acid >=32 Resistant Ampicillin >=32 Resistant Ampicillin/Sulbactam >=32 Resistant Cefazolin 32 Intermediate Ceftriaxone <=1 Susceptible Ertapenem <=0.5 Susceptible Gentamicin <=1 Susceptible Levofloxacin <=0.12 Susceptible Nitrofurantoin 32 Susceptible Piperacillin/Tazobactam 8 Susceptible Trimethoprim/Sulfamethoxazole <=20 Susceptible * Nitrofurantoin is not recommended for use in treating pyelonephritis or systemic disease. Medications: Current Facility-Administered Medications Medication Dose Route Frequency Last Rate Last Dose metroNIDAZOLE (FLAGYL) tablet 500 mg 500 mg Oral Q8H 500 mg at 10/02/18 2334 bisacodyl (DULCOLAX) tablet 10 mg 10 mg Oral PRE-PROCEDURE ONCE bisacodyl (DULCOLAX) tablet 10 mg 10 mg Oral PRE-PROCEDURE ONCE ondansetron (ZOFRAN (PF)) injection 4 mg 4 mg Slow IV Push Q6HPRN 4 mg at 10/01/18 1951 peg-electrolyte soln (GOLYTELY) 236-22.74-6.74 -5.86 gram solution 2,000 mL 2,000 mL Oral PRE-PROCEDURE ONCE peg-electrolyte soln (GOLYTELY) 236-22.74-6.74 -5.86 gram solution 2,000 mL 2,000 mL Oral PRE-PROCEDURE ONCE Sliding Scale Insulin - Aspart (NOVOLOG) + Fsbg Testing Subcutaneous TID MEALS Stopped at 10/02/18 1800 vancomycin (VANCOCIN) 1,500 mg in NaCl 0.9% (NS) 250 mL piggyback 15 mg/kg IV Piggyback Q8H ABX 1,500 mg at 10/02/18 2358 doxycycline (Vibramycin) capsule 100 mg 100 mg Oral Q12HA2 100 mg at 0646 famotidine 20 mg in NS 50 ml (PEPCID) 20 mg/50 mL Piggyback 20 mg 20 mg IV Piggyback Q12H Stopped at 10/02/18 2348 NaCl 0.9% (NS) IV infusion 1,000 mL 1,000 mL IV Infusion CONTINUOUS 125 mL/ hr at 10/02/18 0932 1,000 mL at 10/02/18 0932 docusate (COLACE) capsule 100 mg 100 mg Oral BIDPRN insulin glargine (LANTUS U-100) injection 34 Units 34 Units Subcutaneous QHS 34 Units at 10/02/18 2316 sennosides (SENOKOT) tablet 8.6 mg 8.6 mg Oral QDAILYPRN traMADol (ULTRAM) tablet 50 mg 50 mg Oral Q6HPRN 50 mg at 10/02/18 2243 Assessment/Plan: Stacy Islas is a 27 year old [id number] suspected TOA , Good urine output,reports increased RLQ pain o/n. Stable vitals. Afebrile. HD#4 Recurrent TOA - Admission to [facility] mid-August 2018 for similar presentation; no site for IR access at that time - clinical improvement when treated with cefoxitin x5d, doxycycline x7d, ceftriaxone x2d, metronidazole x2d per ID recommendations - discharged on keflex, doxycyline -- reports compliance - hx PID April 2018 when undergoing appendectomy - Leukocytosis with WBC at OSH 20.4, 16.19 on admission, dropped to 11.8 on 09/29 , repeat pending today -Remained afebrile throughout admission - CTAPfrom OSHshowing bilateralovarian cysts and possible tubo-ovarian abscess with retroperitoneal lymphadenopathy; Right ovary measures 9.3x6x7.1cm. Left ovary measures 5.8x5.2x7.5cm. -CT re-performed at [facility]: "Overall mild improvement of the adnexal inflammatory changes with interval decrease in the number of adnexal hypodense fluid collections compared to prior examination which are favored to represent bilateral tubo-ovarian abscesses. Complex ovarian cysts are also of consideration. The largest of these fluid collections measures 6.3 cm on the left and 6.2 cm on the right." - Pain: tramadol 50 mg q6hrs PRN for pain(has taken Tramadol q6H) - Fever: Ibuprofen only if patient fevers (not for pain) - Blood culture 09/28 +Enterococcus, +S. Agalactiae, repeat culture negative. Plan per ID is to continue Vanc for total of 14 days from negative culture due to bacteremia and PCN allergy. In addition to 6 weeks of oral doxycycline and 2 weeks of oral flagyl. - Urine culture +E. coli -Per IR, no drainage at this time - ID consulted -- concern for possible actinomyces vs fistulizing disease; advise patient to remain in house until not persistently bacteremic. Barium enema performed no evidence of fistulizing disease. Bacteremia -Enterococcus and GBS, repeat culture negative on 09/30 -Will continue vanc for 14 days per ID from negative blood culture (Day 3) -Currently on 1500 Q8, trough subtherapeutic awaiting ID dose adjustment recs Anaphylactic Reaction - allergic reaction to zosyn causing facial swelling, coughing, difficulty breathing - received epinephrine x1, benadryl 50mg, racemic nebulized epinephrine, solumedrol - currently reports she is back to baseline - per ID, switch to vancomycin 1500mg q8, metronidazole, doxycycline T2DM - reports no longer on metformin, only taking insulin since last hospital discharge; reports sugars at home 120s-140s - A1c 7.8 on 09/28/2018 - on SSI Novolog TID with meals + glargine 34 U QHS - FSBG Fasting 110's, 2h PP 90-150's rare 200's, will keep regimen for now MRSA PCR+ - chlorhexidine baths ordered Dispo -ID recommends surgical drainage due to the recurrent nature of the disease and bacteremia. However,imaging and WBC improving. In addition, surgery has risks injury to surrounding organs and bleeding,due to adhesive pelvic disease. Risks of losing both ovaries and premature menopause. Will keep patient in house for now, consider surgery if patient fails to improve. If patient continues to improve with antibiotics will consider discharge on antibiotics for close follow up and repeat imaging in thefuture. -Patient to stay on Vanc for 14 days from negative culture (till 10/14), Doxy for 6 weeks (11/09). Flagyl for 2 weeks (10/12). D/w Dr Figueroa Ruiz MD Associated attestation - Subhash Marti - 10/04/2018 10:16 PM CDTI personally examined the patient on 10.03.[address] Ruiz's resident note as written . I actively participated in the decision-making process. Please see the resident's note for additional details. Janice Ybarra MD - 10/02/2018 6:30 PM CDT R1 [facility] CALL PROGRESS NOTE Stacy Islas [id number] 10/02/2018, 6:30 PM Per ID: patient needs 7 days total of IV vancomycin, 2 weeks of PO flagyl, and 6 weeks of PO doxycyline. Vitals: 10/02/18 0500 10/02/18 0754 10/02/18 1205 10/02/18 1800 BP: 110/61 97/84 116/61 127/67 Pulse: 65 68 64 77 Resp: 18 18 18 20 Temp: 36.7 C (98 F) 36.9 C (98.4 F) 36.7 C (98 F) 36.7 C (98.1 F ) TempSrc: Oral Oral Oral Oral SpO2: 100% 97% 100% 100% Weight: Height: 09/28/2018 06:18 09/29/2018 05:46 WBC x10^3 16.19 (H) 11.88 (H) Discussed with Dr. Ruiz. Janice Ybarra MD Charles Morris MD - 10/02/2018 10:05 AM CDT DAILY PROGRESS NOTE Hospital Day: 5 Subjective: Patient is a 27 year old female admitted for: ICD-10-CM ICD-9-CM 1. Tubo-ovarian abscess N70.93 614.2 Chief complaints: Pelvic pain Significant overnight events: stable, no changes, reports continued abdominal pain Objective: Vital Signs: Patient Vitals for the past 24 hrs: BP BP source Pulse Resp Temp Temp src SpO2 10/02/18 0754 97/84 Right arm 68 18 36.9 C (98.4 F) Oral 97 % 10/02/18 0500 110/61 Right arm 65 18 36.7 C (98 F) Oral 100 % 10/01/18 2000 103/50 Right arm 66 17 36.7 C (98 F) Oral 100 % 10/01/18 1200 119/63 70 16 36.7 C (98 F) Oral 100 % Constitutional: alert, no apparent distress, appearing age appropriate Respiratory: good inspiratory effort to inspections, lungs clear to auscultation Cardiovascular: regular rate and rhythm, no murmurs, gallops or rubs, no clubbing, cyanosis or edema,pulses equal Gastrointestinal: Abdomen soft, non-tender, nondistended, mild bilateral quadrant tenderness. Labs: CBC BMP PT/INR WBC x10^3 (/CMM) Date Value 03/04/2011 9.0 WBC (10*3/L) Date Value 09/29/2018 11.88 (H) NA (mmol/L) Date Value 09/28/2018 138 No results found for: PT RBC x10^6 (/CMM) Date Value 03/04/2011 4.31 RBC (10*6/L) Date Value 09/29/2018 3.73 (L) K (mmol/L) Date Value 09/28/2018 3.6 INR (no units) Date Value 10/01/2018 1.1 PLT x10^3 (/CMM) Date Value 03/04/2011 234 PLT (10*3/L) Date Value 09/29/2018 378 (H) CALCIUM (mg/dL) Date Value 09/28/2018 9.2 HGB Date Value 09/29/2018 9.8 g/dL (L) 03/04/2011 13.1 G/DL CL (mmol/L) Date Value 09/28/2018 103 aPTT HCT (%) Date Value 09/29/2018 30.9 (L) 03/04/2011 38.9 BUN (mg/dL) Date Value 09/28/2018 10 No results found for: APTTPAT CREATININE (mg/dL) Date Value 09/28/2018 0.73 Beta HCG Serum No results found for: PREGSERUM Recent Results (from the past 191463 hour(s)) URINE CULTURE Collection Time: 09/28/18 11:55 AM Susceptibility Escherichia coli - SUSCEPTIBILITY TESTING* Amoxacillin/Clavulanic acid >=32 Resistant Ampicillin >=32 Resistant Ampicillin/Sulbactam >=32 Resistant Cefazolin 32 Intermediate Ceftriaxone <=1 Susceptible Ertapenem <=0.5 Susceptible Gentamicin <=1 Susceptible Levofloxacin <=0.12 Susceptible Nitrofurantoin 32 Susceptible Piperacillin/Tazobactam 8 Susceptible Trimethoprim/Sulfamethoxazole <=20 Susceptible * Nitrofurantoin is not recommended for use in treating pyelonephritis or systemic disease. Medications: Current Facility-Administered Medications Medication Dose Route Frequency Last Rate Last Dose [START ON 10/03/2018] bisacodyl (DULCOLAX) tablet 10 mg 10 mg Oral PRE- PROCEDURE ONCE [START ON 10/03/2018] bisacodyl (DULCOLAX) tablet 10 mg 10 mg Oral PRE- PROCEDURE ONCE ondansetron (ZOFRAN (PF)) injection 4 mg 4 mg Slow IV Push Q6HPRN 4 mg at 10/01/18 1951 [START ON 10/03/2018] peg-electrolyte soln (GOLYTELY) 236-22.74-6.74 -5.86 gram solution 2,000 mL 2,000 mL Oral PRE-PROCEDURE ONCE [START ON 10/03/2018] peg-electrolyte soln (GOLYTELY) 236-22.74-6.74 -5.86 gram solution 2,000 mL 2,000 mL Oral PRE-PROCEDURE ONCE Sliding Scale Insulin - Aspart (NOVOLOG) + Fsbg Testing Subcutaneous TID MEALS Stopped at 10/01/18 1200 vancomycin (VANCOCIN) 1,500 mg in NaCl 0.9% (NS) 250 mL piggyback 15 mg/kg IV Piggyback Q8H ABX 1,500 mg at 10/02/18 0624 doxycycline (Vibramycin) capsule 100 mg 100 mg Oral Q12HA2 100 mg at 0624 famotidine 20 mg in NS 50 ml (PEPCID) 20 mg/50 mL Piggyback 20 mg 20 mg IV Piggyback Q12H 0 mL/hr at 10/01/18 2041 20 mg at 10/02/18 0932 metroNIDAZOLE (FLAGYL I.V.) Piggyback 500 mg 500 mg IV Piggyback Q8H ABX 500 mg at 10/02/18 0443 NaCl 0.9% (NS) IV infusion 1,000 mL 1,000 mL IV Infusion CONTINUOUS 125 mL/ hr at 10/02/18 0932 1,000 mL at 10/02/18 0932 docusate (COLACE) capsule 100 mg 100 mg Oral BIDPRN insulin glargine (LANTUS U-100) injection 34 Units 34 Units Subcutaneous QHS 17 Units at 10/01/182003 sennosides (SENOKOT) tablet 8.6 mg 8.6 mg Oral QDAILYPRN traMADol (ULTRAM) tablet 50 mg 50 mg Oral Q6HPRN 50 mg at 10/01/18 1836 Assessment/Plan: Stacy Islas is a 27 year old female with suspected TOA , Good urine output, reports increased RLQ pain o/n. Stable vitals. Afebrile. HD#3 Suspected TOA - Admission to [facility] mid-August 2018 for similar presentation; no site for IR access at that time - clinical improvement when treated with cefoxitin x5d, doxycycline x7d, ceftriaxone x2d, metronidazole x2d per ID recommendations - discharged on keflex, doxycyline -- reports compliance - hx PID April 2018 when undergoing appendectomy - Leukocytosis with WBC at OSH 20.4, 16.19 on admission, dropped to 11.8 on 09/29 , -Remained afebrile throughout admission - CTAPfrom OSHshowing bilateralovarian cysts and possible tubo-ovarian abscess with retroperitoneal lymphadenopathy; Right ovary measures 9.3x6x7.1cm. Left ovary measures 5.8x5.2x7.5cm. -CT re-performed at [facility]: "Overall mild improvement of the adnexal inflammatory changes with interval decrease in the number of adnexal hypodense fluid collections compared to prior examination which are favored to represent bilateral tubo-ovarian abscesses. Complex ovarian cysts are also of consideration. The largest of these fluid collections measures 6.3 cm on the left and 6.2 cm on the right." - Pain: tramadol 50 mg q6hrs PRN for pain(has taken Tramadol q6H) - Fever: Ibuprofen only if patient fevers (not for pain) - Blood culture 09/28 +Enterococcus, +S. agaalactiae - Urine culture +E. coli -Per IR, no drainage at this time - ID consulted -- concern for possible actinomyces vs fistulizing disease; advise patient to remain in house until not persistently bacteremic. Barium enema performed no evidence of fistulizing disease. Repeat blood culture negative for 48 hours. Anaphylactic Reaction - allergic reaction to zosyn causing facial swelling, coughing, difficulty breathing - received epinephrine x1, benadryl 50mg, racemic nebulized epinephrine, solumedrol - currently reports she is back to baseline - per ID, switch to vancomycin 1500mg q12, metronidazole, doxycycline - recommend allergy consult due to concern for actinomyces for which treatment would be amoxicillin T2DM - reports no longer on metformin, only taking insulin since last hospital discharge; reports sugars at home 120s-140s - A1c 7.8 on 09/28/2018 - on SSI Novolog TID with meals + glargine 34 U QHS - FSBG 140s-240s -- will adjust insulin regimen MRSA PCR+ - chlorhexidine baths ordered Dispo -Patient afebrile, repeat blood culture negative, will contact ID to discuss outpatient antibiotic regimen and will potentially discharge patient home today , to follow up out patient and for repeat imaging Charles Ruiz MD Associated attestation - Subhash Marti - 10/04/2018 10:17 PM CDTI personally examined the patient on 10.02.[address] Lopez's resident note as written. I actively participated in the decision-making process. Please see the resident's note for additional details. Zafar Moy MD - 10/01/2018 6:30 AM CDT UTILITY ASSEMBLER DAILY PROGRESS NOTE 10/01/2018 Hospital day: 4 SUBJECTIVE: Overnight, patient reports no complaints. Patient reports adequate pain control. Patient is tolerating diabetic diet without nausea/vomiting, has passed flatus, is voiding freely, is ambulating without difficulty. Denies CP , SOB. OBJECTIVE: Patient Vitals for the past 24 hrs: BP Temp Temp src Pulse Resp SpO2 10/01/18 0400 112/63 36.4 C (97.6 F) Oral 73 20 100 % 10/01/18 0000 100/54 36.4 C (97.5 F) Oral 76 20 98 % 09/30/18 2000 110/63 36.6 C (97.8 F) Oral 76 20 100 % 09/30/18 1507 96/54 36.6 C (97.8 F) Oral 73 20 100 % 09/30/18 0801 111/59 36.3 C (97.3 F) Oral 76 20 98 % Intake/Output Summary (Last 24 hours) at 10/01/2018 0630 Last data filed at 10/01/2018 0400 Gross per 24 hour Intake 680 ml Output 1300 ml Net -620 ml smartlink CONSTITUTIONAL: no apparent distress, appearing age-appropriate. RESPIRATORY: good inspiratory effort to inspections, lungs clear to auscultation bilaterally. No wheeze/stridor/crackles bilaterally. CARDIOVASCULAR: regular rate and rhythm. S1 and S2 present. No rubs/gallops/ murmurs. GASTROINTESTINAL: abdomen soft, non distended, appropriately tender to palpation. No rebound or guarding tenderness. Bowel sound present and active. NEUROLOGICAL/PSYCHIATRIC: alert, awake, and oriented x 3. Normal mood and affect. EXTREMITIES: No calf tenderness bilaterally. no pitting edema bilaterally. SCDs and TEDs bilaterally. Labs: WBC x10^3 (/CMM) Date Value 03/04/2011 9.0 WBC (10*3/L) Date Value 09/29/2018 11.88 (H) 09/28/2018 16.19 (H) HGB Date Value 09/29/2018 9.8 g/dL (L) 09/28/2018 10.2 g/dL (L) 03/04/2011 13.1 G/DL HCT (%) Date Value 09/29/2018 30.9 (L) 09/28/2018 33.1 (L) 03/04/2011 38.9 PLT x10^3 (/CMM) Date Value 03/04/2011 234 PLT (10*3/L) Date Value 09/29/2018 378 (H) 09/28/2018 373 (H) Radiology: No new Radiology Medications: Current Facility-Administered Medications Medication Dose Route Frequency Last Rate Last Dose doxycycline (Vibramycin) capsule 100 mg 100 mg Oral Q12HA2 100 mg at 0548 famotidine 20 mg in NS 50 ml (PEPCID) 20 mg/50 mL Piggyback 20 mg 20 mg IV Piggyback Q12H Stopped at 09/30/188 metroNIDAZOLE (FLAGYL I.V.) Piggyback 500 mg 500 mg IV Piggyback Q8H ABX 500 mg at 10/01/18 0548 NaCl 0.9% (NS) IV infusion 1,000 mL 1,000 mL IV Infusion CONTINUOUS 125 mL/ hr at 10/01/18 0135 1,000 mL at 10/01/18134 vancomycin (VANCOCIN) 1,500 mg in NaCl 0.9% (NS) 250 mL piggyback 15 mg/kg IV Piggyback Q12H ABX 1,500 mg at 10/01/18134 docusate (COLACE) capsule 100 mg 100 mg Oral BIDPRN insulin glargine (LANTUS U-100) injection 34 Units 34 Units Subcutaneous QHS 34 Units at 09/30/182056 sennosides (SENOKOT) tablet 8.6 mg 8.6 mg Oral QDAILYPRN Sliding Scale Insulin - Aspart (NOVOLOG) + Fsbg Testing Subcutaneous TID MEALS+HS 2 Units at09/30/182056 traMADol (ULTRAM) tablet 50 mg 50 mg Oral Q6HPRN 50 mg at 09/30/18 2003 ASSESSMENT Stacy Islas is a 27 year old female with suspected TOA , Good urine output, reports increased RLQ pain o/n. Stable vitals. Afebrile. HD#2 Suspected TOA - Admission to [facility] mid-August 2018 for similar presentation; no site for IR access at that time - clinical improvement when treated with cefoxitin x5d, doxycycline x7d, ceftriaxone x2d, metronidazole x2d per ID recommendations - discharged on keflex, doxycyline -- reports compliance - hx PID April 2018 when undergoing appendectomy - Leukocytosis with WBC at OSH 20.4, now 16.19 on admission -- repeat CBC tomorrow AM -Remained afebrile throughout admission - CTAPfrom OSHshowing bilateralovarian cysts and possible tubo-ovarian abscess with retroperitoneal lymphadenopathy; Right ovary measures 9.3x6x7.1cm. Left ovary measures 5.8x5.2x7.5cm. -CT re-performed at [facility]: "Overall mild improvement of the adnexal inflammatory changes with interval decrease in the number of adnexal hypodense fluid collections compared to prior examination which are favored to represent bilateral tubo-ovarian abscesses. Complex ovarian cysts are also of consideration. The largest of these fluid collections measures 6.3 cm on the left and 6.2 cm on the right." - Pain: tramadol 50 mg q6hrs PRN for pain(has taken Tramadol q6H) - Fever: Ibuprofen only if patient fevers (not for pain) - Blood culture 09/28 +Enterococcus, +S. agaalactiae - Urine culture +E. coli - Per IR, no drainage at this time - ID consulted -- concern for possible actinomyces vs fistulizing disease; advise patient to remain in house until not persistently bacteremic Anaphylactic Reaction - allergic reaction to zosyn causing facial swelling, coughing, difficulty breathing - received epinephrine x1, benadryl 50mg, racemic nebulized epinephrine, solumedrol - currently reports she is back to baseline - per ID, switch to vancomycin 1500mg q12, metronidazole, doxycycline - recommend allergy consult due to concern for actinomyces for which treatment would be amoxicillin T2DM - reports no longer on metformin, only taking insulin since last hospital discharge; reports sugars at home 120s-140s - A1c 7.8 on 09/28/2018 - on SSI Novolog TID with meals + glargine 34 U QHS - FSBG 140s-240s -- will adjust insulin regimen MRSA PCR+ - chlorhexidine baths ordered Dispo: will continue with vancomycin (trough before 4th dose); metronidazole ( day4), doxycycline (day3); s/p cefoxitin x2d; per radiology, Barium enema today Zafar Moy MD OBGYN PGY2 10/01/18 Associated attestation - Jaxson Kendall MD - 10/01/2018 4:34 PM CDTPatient seen and examined on 10/01/18. Given that there is concern for fistulizing disease, we ordered an MRI for better visualization. We were informed by radiology that a barium enema study would provide better results and that it required a bowel prep. Thus we changed the order and started the patient on a bowel prep this morning. Several hours later we are informed by radiology that they will not do the procedure over the weekend and the patient will need to wait until Thursday. I called to speak with a faculty research assistant to explain that we need this study to make a management decision and I was only able to speak with a resident. The resident spoke to his faculty who said as long as some contrast can get in, they would do the barium enema study today. However, then after 4pm on a Thursday we get a call from radiology again saying they cannot perform the study due to the inadequate bowel prep and that the patient will need to wait until Thursday. Patient strongly desires surgery for management as these cysts are causing her pain. I discussed with her this morning that should there be fistulizing disease , I would like to have general surgery on board prior to even discussing any surgical management, which from a gynecologic standpoint would be elective. We understand that she is frustrated with her pain, but surgical management for TOAs that have improved on imaging and in a patient that has been afebrile this entire admission and is doing well on IV antibiotics is not indicated. We will continue IV antibiotics at this time and plan for barium enema study as soon as allowed by radiology.Patrick Vaughn RN - 09/30/2018 5:19 PM CDTCare Management Social Functional Assessment Patient Name: Stacy Islas Age: [age] year old Sex: female Patient's Previous Admission Date at [facility]: 08/16/2018 Patient lives at home with her kids aged 5 and 7. Patient functionally independent before admission.Patient has family that will pick her up when she is discharged. Patient has applied for [facility] and goes to a community clinic: [facility] in the [facility] to receive care with women's Medicaid that she has in that clinic and she currently isable to receive discounted medications in clinic. [facility]. Current diagnosis and co-morbidities: OVARIAN CYST Readmission Questions: Was patient discharged from any acute care hospital within the last 30 days: No Social Functional Assessment: Primary language spoken/preferred: Salvadorean Mental Status: Alert & Oriented to Person,Place & Time Information given by: Self Patient's support system: Parent;Other Name and number of support system: Amy Ag (mother) [phone] Primary Data Warehouse Developer: Self;Parent MPOA: No Living Arrangement: Home Address of living arrangement : [address] [place] [id number] Persons living in home: Self;Child Names & numbers of persons living in home: Patient lives at home with her 2 children. Barriers to returning home: None Baseline functional status- ambulation: Independent Functional status-baseline personal care: Independent Baseline functional status- driving: Independent Baseline functional status- grocery shopping: Independent Functional status-baseline housekeeping: Independent Functional status-baseline meal prep: Independent Current functional status same as prior: Yes Do you have a PCP?: Yes Name of PCP: Kody Walter [facility] Care Agency: No Provider Services: No DME Company: No Equipment: None Hemodialysis: No Community resources utilized: Other Other community resources utilized: Patient goes to community clinic: [facility] in [facility]. Patient has women's Medicaid in clinic. Patient has applied for [facility]. Funding Resources: Self Pay Prescription coverage plan: Other Other prescription coverage plan: Patient gets discounted medications through clinic. Pharmacy where meds are filled: Other Other pharmacy: [facility] Anticipated services prior to disharge: Continue Medical Eval Expected mode of discharge transportation: Personal vehicle;Family Name and phone number of the friend or family member picking up the patient: Patient has family thatwill pick her up when she is discharged. Additional Recommendations for DC: Patient lives at home with her kids aged 5 and 7. Patient functionally independent before admission. Patient has family that will pick her up when she is discharged. Patient has applied for [facility] and goes to a community clinic: [facility] in the [facility] to receive care with women's Medicaid that she has in that clinic and she currently is able to receive discounted medications in clinic. She is trying to get [facility] as the funding she has at the clinic is limited. Additional info required for discharge planning: Pending medical evaluation Recommended discharge plan: Home SFA Complete: Social Functional Assessment complete: Yes Alcohol Use Screening (AUDIT-C) How often do you have a drink containing alcohol?: Never SCORE: 0 Did patient elect to have resources provided: No Role of Care Management explained. Patrick Vaughn RN (JV)-BC, BSN Postdoctoral Scientist [facility] Care Management (not for patient use) Office: [phone] [email or web address] Zafar Godinez MD - 09/30/2018 7:45 AM CDT UTILITY ASSEMBLER DAILY PROGRESS NOTE 09/30/2018 Hospital day: 3 SUBJECTIVE: Overnight, patient reports no complaints. Patient reports good pain control with oral pain meds. Patient is is tolerating diabetic diet without nausea/ vomiting, has passed flatus, is voiding freely,is ambulating without difficulty. Denies CP, SOB. OBJECTIVE: Patient Vitals for the past 24 hrs: BP Temp Temp src Pulse Resp SpO2 09/30/18 0347 106/62 37 C (98.6 F) Oral 69 20 98 % 09/29/18 2302 112/71 36.3 C (97.3 F) Oral 77 20 98 % 09/29/18 2129 117/70 37.3 C (99.1 F) Oral 92 20 95 % 09/29/18 1918 113/60 36.9 C (98.5 F) Oral 90 20 99 % 09/29/18 1840 20 100 % 09/29/18 1830 24 100 % 09/29/18 1810 (!) 143/78 36.8 C (98.3 F) Oral 92 18 100 % 09/29/18 1600 114/61 36.6 C (97.9 F) Oral 86 18 09/29/18 1123 107/57 36.7 C (98.1 F) Oral 77 18 98 % 09/29/18 0756 112/61 36.7 C (98.1 F) Oral 79 18 100 % Intake/Output Summary (Last 24 hours) at 09/30/2018 0746 Last data filed at 09/29/2018 1700 Gross per 24 hour Intake 200 ml Output 850 ml Net -650 ml smartlink CONSTITUTIONAL: no apparent distress, appearing age-appropriate. RESPIRATORY: good inspiratory effort to inspections, lungs clear to auscultation bilaterally. No wheeze/stridor/crackles bilaterally. CARDIOVASCULAR: regular rate and rhythm. S1 and S2 present. No rubs/gallops/ murmurs. GASTROINTESTINAL: abdomen soft, non distended, appropriately tender to palpation post-op. No reboundor guarding tenderness. Bowel sound present and active. INCISION/WOUND: gauze dry, clean, intact. No erythema, induration, or drainage. NEUROLOGICAL/PSYCHIATRIC: alert, awake, and oriented x 3. Normal mood and affect. EXTREMITIES: No calf tenderness bilaterally. no pitting edema bilaterally. SCDs and TEDs bilaterally. Labs: WBC x10^3 (/CMM) Date Value 03/04/2011 9.0 WBC (10*3/L) Date Value 09/29/2018 11.88 (H) 09/28/2018 16.19 (H) HGB Date Value 09/29/2018 9.8 g/dL (L) 09/28/2018 10.2 g/dL (L) 03/04/2011 13.1 G/DL HCT (%) Date Value 09/29/2018 30.9 (L) 09/28/2018 33.1 (L) 03/04/2011 38.9 PLT x10^3 (/CMM) Date Value 03/04/2011 234 PLT (10*3/L) Date Value 09/29/2018 378 (H) 09/28/2018 373 (H) Radiology: No new Radiology Medications: Current Facility-Administered Medications Medication Dose Route Frequency Last Rate Last Dose doxycycline (Vibramycin) capsule 100 mg 100 mg Oral Q12HA2 100 mg at 0537 famotidine 20 mg in NS 50 ml (PEPCID) 20 mg/50 mL Piggyback 20 mg 20 mg IV Piggyback Q12H Stopped at 09/29/18 2242 metroNIDAZOLE (FLAGYL I.V.) Piggyback 500 mg 500 mg IV Piggyback Q8H ABX 500 mg at 09/30/18 0523 NaCl 0.9% (NS) IV infusion 1,000 mL 1,000 mL IV Infusion CONTINUOUS 125 mL/ hr at 09/29/181936 1,000 mL at 09/29/181936 vancomycin (VANCOCIN) 1,500 mg in NaCl 0.9% (NS) 250 mL piggyback 15 mg/kg IV Piggyback Q12H ABX 1,500 mg at 09/30/18 0007 docusate (COLACE) capsule 100 mg 100 mg Oral BIDPRN insulin glargine (LANTUS U-100) injection 34 Units 34 Units Subcutaneous QHS 34 Units at 09/29/18 2214 sennosides (SENOKOT) tablet 8.6 mg 8.6 mg Oral QDAILYPRN Sliding Scale Insulin - Aspart (NOVOLOG) + Fsbg Testing Subcutaneous TID MEALS+HS 2 Units at09/29/182214 traMADol (ULTRAM) tablet 50 mg 50 mg Oral Q6HPRN 50 mg at 09/29/18 0546 ASSESSMENT Stacy Islas is a 27 year old female with suspected TOA , Good urine output, adequate paincontrol, and stable vitals. Afebrile. HD#2 Suspected TOA - Admission to [facility] mid-August 2018 for similar presentation; no site for IR access at that time - clinical improvement when treated with cefoxitin x5d, doxycycline x7d, ceftriaxone x2d, metronidazole x2d per ID recommendations - discharged on keflex, doxycyline -- reports compliance - hx PID April 2018 when undergoing appendectomy - Leukocytosis with WBC at OSH 20.4, now 16.19 on admission -- repeat CBC tomorrow AM - Remained afebrile throughout admission - CTAPfrom OSHshowing bilateralovarian cysts and possible tubo-ovarian abscess with retroperitoneal lymphadenopathy; Right ovary measures 9.3x6x7.1cm. Left ovary measures 5.8x5.2x7.5cm. -CT re-performed at [facility]: "Overall mild improvement of the adnexal inflammatory changes with interval decrease in the number of adnexal hypodense fluid collections compared to prior examination which are favored to represent bilateral tubo-ovarian abscesses. Complex ovarian cysts are also of consideration. The largest of these fluid collections measures 6.3 cm on the left and 6.2 cm on the right." - Pain: tramadol 50 mg q6hrs PRN for pain (has taken Tramadol q6H) - Fever: Ibuprofen only if patient fevers (not for pain) - Blood culture no growth x 24 hours, Ucx still pending - Per IR, no drainage at this time - ID consulted -- concern for possible actinomyces vs fistulizing disease; advise patient to remain in house until not persistently bacteremic Anaphylactic Reaction - allergic reaction to zosyn causing facial swelling, coughing, difficulty breathing - received epinephrine x1, benadryl 50mg, racemic nebulized epinephrine, solumedrol - currently reports she is back to baseline - per ID, switch to vancomycin 1500mg q12, metronidazole, doxycycline - recommend allergy consult due to concern for actinomyces for which treatment would be amoxicillin T2DM - reports no longer on metformin, only taking insulin since last hospital discharge; reports sugars at home 120s-140s - A1c 7.8 on 09/28/2018 - on SSI Novolog TID with meals + glargine 34 U QHS - FSBG 120s-190s MRSA PCR+ - chlorhexidine baths ordered Dispo: vancomycin (day 1); metronidazole (day 3), doxycycline (day 3); s/p cefoxitin x2d; blood cultures pending; will consult allergy Zafar Moy MD OBGYN PGY2 09/30/18 Associated attestation - Kody Walter MD - 10/01/2018 8:29 AM CDTAfter discussion with Dr. Moy, I examined this patient with Dr. Moy and gynecology team. I agree with resident's note as written. Patient is requesting surgical intervention of her TOA. We discussed extensively that at this time,surgical intervention is not indicated. Also, due to the bacteria that she grew in her blood culture, we may have to consider other issues that may involve her bowels and may have to include a generalsurgery consult. She was made aware that surgery may be very risky and can lead to a long recovery as well as a very prolonged hospital stay. She was made aware that if medical therapy is successful,she will avoid these possible complications. The patient did state that someone in a white coat told her she should have surgery. This plan was not discussed with the gynecology team and therefore, it is not currently in our plans to do emergent surgery. Will continue antibiotics and discussed possible management each day with her. Hilary Kolb MD - 09/29/2018 6:49 PM CDTR1 Progress Note Called to patient bedside for difficulty breathing and facial swelling after completing first dose of Zosyn at 1810. Per patient she was sitting in her room and started having a coughing fit, she then went to the bathroom and noticed her lips were very swollen and she contacted her nurse as she was having difficulty breathing. Rapid response was initiated at 1814. Rapid response team arrived at bedside at 1817. Epinephrine pen was administered at 1826 and Benadryl 50 mg was given at 1833. Patient was started on neb racemic epinephrine treatment at 1830. Patient's breathing and facial swelling improved with treatment and was switched to nasal cannula O2 at after completing neb treatment. Blood pressure at 1835 was 150/62. After completing treatment and switching to nasal cannula O2, her blood pressure was retaken at 1844 and was documented to be 127/60. Patient's vitals were stable at this time, with O2 sat at 100% and pulse ranging 90-95. Will start patient on Solumedrol 125mg IV, Benadryl 50 mg IV, and Pepsid 20 mg IV. Zosyn was discontinued and patient was started on Vancomycin 1500mg q12H and restarted on doxycycline and flagyl per ID recommendations. Post-treatment Physical Exam: Respiratory: lungs are clear to auscultation without wheezing or stridor Cardio: RRR without murmur, peripheral pulses intact HEENT: perioral and periorbital swelling decreased, mild lip swelling remains without blue coloring Patient seen and d/w Dr. Ankita Kolb MD Obstetrics and Gynecology, PGY1 Pager: [phone] 09/29/18 Yanet Juan MD - 09/29/2018 6:32 AM CDT HD#2 PROGRESS NOTE 09/29/2018 6:32 AM SUBJECTIVE: Patient is doing well. Pain is well controlled. Patient denies CP, SOB, dizziness, nausea, vomiting. OBJECTIVE: Patient Vitals for the past 24 hrs: BP Temp Temp src Pulse Resp SpO2 09/29/18 0400 101/62 36.9 C (98.4 F) Oral 78 18 99 % 09/29/18 0000 122/60 36.8 C (98.2 F) Oral 88 18 97 % 09/28/18 1900 114/59 37.1 C (98.8 F) Oral 85 18 99 % 09/28/18 1500 104/53 36.9 C (98.4 F) Oral 86 18 100 % 09/28/18 1131 108/60 36.8 C (98.3 F) Oral 85 20 99 % 09/28/18 0743 103/56 36.8 C (98.2 F) Oral 75 20 100 % Intake/Output Summary (Last 24 hours) at 09/29/2018 0632 Last data filed at 09/29/2018 0616 Gross per 24 hour Intake 1760 ml Output 2325 ml Net -565 ml GEN:NAD, A&O x 3 CV:RRR, no MGR, normal S1/S2 PULM:CTAB, no WRR, good inspiratory effort ABD:+BS, soft, not tender to palpation, ND, no rebound or guarding EXT:No C/C/E, no calf tenderness : deferred EXAM: CT ABDOMEN AND PELVIS WITH CONTRAST HISTORY: Acute, generalized abdominal pain. COMPARISON: CT abdomen pelvis 08/15/2018. Pelvic ultrasound 09/27/2018. DOSE: Total exam DLP 1014 mGy-cm TECHNIQUE AND FINDINGS: Contiguous axial imaging from the level of the lung bases through the pubic symphysis was performed after the uncomplicated administration of 120 cc of intravenous Omnipaque contrast. Coronal and sagittal reconstructions were obtained. Auto mA and/or iterative reconstruction were used to reduce radiation dose. FINDINGS: LOWER THORAX: Bibasilar subsegmental atelectasis. No cardiomegaly. LIVER: Hepatomegaly (22.1 cm craniocaudally). No focal hepatic lesions. Normal contour. GALLBLADDER AND BILIARY TREE: No biliary ductal dilation. No gallbladder wall thickening. SPLEEN: No splenomegaly. PANCREAS: No ductal dilation or masses. ADRENAL GLANDS: No adrenal nodules. KIDNEYS: No hydronephrosis, stones, or masses. PERITONEUM AND RETROPERITONEUM: No free air or fluid. Small periumbilical fat-containing hernia. LYMPH NODES: Enlarged retroperitoneal lymph nodes measure up to 1.8 cm (axial image 57) and 1.5 cm (axial image 64). These lymph nodes are unchanged from prior examination and are likely reactive in nature. GI TRACT: No dilation or wall thickening. Prior appendectomy (coronal image 68). PELVIS/BLADDER: The urinary bladder is decompressed and the garcia do not appear thickened. The uterus is mildly enlarged and the bilateral ovaries contain multiple hypodense lesions with mildly enhancing garcia suggestive of cysts or fluid collections/tubo-ovarian abscesses with surrounding inflammatory fat stranding. The number of hypodense lesions has decreased especially on the left ovary from prior examination. The largest lesion on the left measures 6.3 cm, and the largest hypodense lesion on the right measures 6.2 cm . VESSELS: Unremarkable. BONES AND SOFT TISSUES: No suspicious lytic or sclerotic bony lesions. IMPRESSION 1. Overall mild improvement of the adnexal inflammatory changes with interval decrease in the number of adnexal hypodense fluid collections compared to prior examination which are favored to represent bilateral tubo-ovarian abscesses. Complex ovarian cysts are also of consideration. The largest of these fluid collections measures 6.3 cm on the left and 6.2 cm on the right. 2. Unchanged retroperitoneal enlarged lymph nodes are likely reactive in nature. I, Naeem Patricio MD., have reviewed this study and agree with the above report. ASSESSMENT/PLAN: Stacy Islas is a 27 year old female with suspected TOA , Good urine output, adequate paincontrol, and stable vitals. Afebrile. HD#2 Suspected TOA - Admission to [facility] mid-August 2018 for similar presentation; no site for IR access at that time - clinical improvement when treated with cefoxitin x5d, doxycycline x7d, ceftriaxone x2d, metronidazole x2d per ID recommendations - discharged on keflex, doxycyline -- reports compliance - hx PID April 2018 when undergoing appendectomy - Leukocytosis with WBC at OSH 20.4, now 16.19 on admission -- repeat CBC tomorrow AM - Remained afebrile throughout admission - CTAP from OSH showing bilateral ovarian cysts and possible tubo-ovarian abscess with retroperitoneal lymphadenopathy; Right ovary measures 9.3x6x7.1cm. Left ovary measures 5.8x5.2x7.5cm. -CT re-performed at [facility]: "Overall mild improvement of the adnexal inflammatory changes with interval decrease in the number of adnexal hypodense fluid collections compared to prior examination which are favored to represent bilateral tubo-ovarian abscesses. Complex ovarian cysts are also of consideration. The largest of these fluid collections measures 6.3 cm on the left and 6.2 cm on the right." - Abx: cefoxitin 2g IV q6hrs, doxycycline 100 mg q12 hrs, flagyl 500 mg BID - Pain: tramadol 50 mg q6hrs PRN for pain (has taken Tramadol q6H) - Fever: Ibuprofen only if patient fevers (not for pain) - Blood culture no growth x 24 hours, Ucx still pending - IR consulted regarding possible abscess drainage - NPO for possible IR procedure in AM T2DM - reports no longer on metformin, only taking insulin since last hospital discharge; reports sugars at home 120s-140s - A1c 7.8 on 09/28/2018 - on SSI Novolog TID with meals + glargine 34 U QHS - FSBG 120s-190s MRSA PCR+ - chlorhexidine baths ordered Dispo: Plan for potential IR drainage today, IR faculty will review images to determine if candidatefor IR. Will consult ID for recommendations for change in abx if necessary (patient has remained afebrile throughout admission) Yanet Bey MD #[id number], PGY3 09/29/2018 6:32 AM Associated attestation - Jazmyne Shell MD - 09/29/2018 11:41 AM CDTI personally participated in the evaluation and examination of this patient with Dr. Bey. I agree with assessment and management plan as outlined by the resident's note. At present, Radiology does not feel drainage of fluid pockets will be beneficial as the pockets are smaller. Patient remainsafebrile with decreasing WBC. She understands that her pain may also be secondary to adhesive disease secondary to the pelvic abcess and may need to be addressed further outpatient. Will await ID inputfor current management. JazmyneJohn Mullen Christopher, MD - 09/28/2018 9:17 AM CDT UTILITY ASSEMBLER DAILY PROGRESS NOTE 09/28/2018 Hospital day: 1 SUBJECTIVE: Overnight, patient reports abd tenderness complaints. Patient is npo, pending IR decision. She isvoiding freely, is ambulating without difficulty. Denies CP , SOB. OBJECTIVE: Patient Vitals for the past 24 hrs: BP Temp Temp src Pulse Resp SpO2 Height Weight 09/28/18 0743 103/56 36.8 C (98.2 F) Oral 75 20 100 % 09/28/18 0500 101/66 36.2 C (97.2 F) Oral 80 20 100 % 1.6 m (5' 3") 111.1 kg (245 lb) Intake/Output Summary (Last 24 hours) at 09/28/2018 0923 Last data filed at 09/28/2018 0800 Gross per 24 hour Intake 20 ml Output 250 ml Net -230 ml Date 09/28/18 0700 - 09/29/18 0659 Shift 6088-4948 6208-9438 6491-5869 24 Hour Total INTAKE Oral 20 20 Shift Total 20 20 OUTPUT Urine(mL/kg/hr) 250 250 Shift Total 250 250 Weight (kg) 111.1 111.1 111.1 111.1 smartlink CONSTITUTIONAL: no apparent distress, appearing age-appropriate. RESPIRATORY: good inspiratory effort to inspections, lungs clear to auscultation bilaterally. No wheeze/stridor/crackles bilaterally. CARDIOVASCULAR: regular rate and rhythm. S1 and S2 present. No rubs/gallops/ murmurs. GASTROINTESTINAL: abdomen soft, non distended, tender to palpation lower quadrants. No rebound or guarding tenderness. Bowel sound present and active. INCISION/WOUND: gauze dry, clean, intact. No erythema, induration, or drainage. NEUROLOGICAL/PSYCHIATRIC: alert, awake, and oriented x 3. Normal mood and affect. EXTREMITIES: No calf tenderness bilaterally. no pitting edema bilaterally. SCDs and TEDs bilaterally. Labs: WBC x10^3 (/CMM) Date Value 03/04/2011 9.0 WBC (10*3/L) Date Value 09/28/2018 16.19 (H) 08/22/2018 15.38 (H) HGB Date Value 09/28/2018 10.2 g/dL (L) 08/22/2018 10.0 g/dL (L) 03/04/2011 13.1 G/DL HCT (%) Date Value 09/28/2018 33.1 (L) 08/22/2018 32.5 (L) 03/04/2011 38.9 PLT x10^3 (/CMM) Date Value 03/04/2011 234 PLT (10*3/L) Date Value 09/28/2018 373 (H) 08/22/2018 415 (H) Radiology: Radiology outside records pending [facility] read Medications: Current Facility-Administered Medications Medication Dose Route Frequency Last Rate Last Dose cefOXitin in dextrose, iso-osm (MEFOXIN) 2 gram/50 mL DUPLEX BAG 2 g 2 g IV Piggyback Q6H ABX [id number] IV infusion 1,000 mL 1,000 mL IV Infusion CONTINUOUS docusate (COLACE) capsule 100 mg 100 mg Oral Q12H doxycycline (Vibramycin) capsule 100 mg 100 mg Oral Q12HA2 100 mg at 0756 insulin glargine (LANTUS U-100) injection 34 Units 34 Units Subcutaneous QHS metroNIDAZOLE (FLAGYL) tablet 500 mg 500 mg Oral Q8H sennosides (SENOKOT) tablet 8.6 mg 8.6 mg Oral DAILY Sliding Scale Insulin - Aspart (NOVOLOG) + Fsbg Testing Subcutaneous TID MEALS+HS Stopped at09/28/18 0800 traMADol (ULTRAM) tablet 50 mg 50 mg Oral Q6HPRN ASSESSMENT Stacy Islas is a 27 year old female with suspected TOA , Good urine output, adequate paincontrol, and stable vitals. Afebrile Suspected TOA - Admission to [facility] mid-August 2018 for similar presentation; no site for IR access at that time - clinical improvement when treated with cefoxitin x5d, doxycycline x7d, ceftriaxone x2d, metronidazole x2d per ID recommendations - discharged on keflex, doxycyline -- reports compliance - hx PID April 2018 when undergoing appendectomy - Leukocytosis with WBC at OSH 20.4, now 16.19 on admission -- repeat CBC tomorrow AM - Currently afebrile - CTAP from OSH showing bilateral ovarian cysts and possible tubo-ovarian abscess with retroperitoneal lymphadenopathy; Right ovary measures 9.3x6x7.1cm. Left ovary measures 5.8x5.2x7.5cm. - Abx: cefoxitin 2g IV q6hrs, doxycycline 100 mg q12 hrs, flagyl 500 mg BID - Pain: tramadol 50 mg q6hrs PRN for pain - Fever: Ibuprofen only if patient fevers (not for pain) - blood and urine cultures sent - IR consulted regarding possible abscess drainage - NPO for possible IR procedure in AM T2DM - reports no longer on metformin, only taking insulin since last hospital discharge; reports sugars at home 120s-140s - A1c 7.8 on 09/28/2018 - on SSI Novolog TID with meals + glargine 34 U QHS - FSBG 121, 138 - NPO for possible IR procedure, will hold insulin for now MRSA PCR+ - chlorhexidine baths ordered Dispo: currently pending read of OSH imaging by radiology; then will discuss with IR their recommendations; blood and urine culture sent; abx now started; if no improvement, consider ID consult Seen and d/w Dr. Shiva Moy MD OBGYN PGY2 09/28/18 Associated attestation - Rosario Shannon MD - 09/28/2018 10:14 PM CDTI personally examined the patient on 09/28/18 and agree with 's note as written. I activelyparticipated in the decision-making process. Please see the resident's note for additional details.documented in this encounter Plan of Treatment Name Type Priority Associated Diagnoses Date/Time LDH, TOTAL BODY FLUID LAB Routine 09/28/2018 6:18 AM CDT IR DRAINAGE BY CATHETER IMAGING STAT Tubo-ovarian abscess 10/05/2018 5:38 PM PERITONEAL OR CDT RETROPERITONEAL ASPIRATE OR ABSCESS LAB Routine Tubo-ovarian abscess 10/05/2018 6:02 PM CULTURE(AEROBIC/ANAEROBIC) CDT ASPIRATE OR ABSCESS LAB Routine Tubo-ovarian abscess 10/05/2018 6:02 PM CULTURE(AEROBIC/ANAEROBIC) CDT Name Type Priority Associated Diagnoses Order Schedule GLUCOSE BODY FLUID LAB Routine ONCE for 1 Occurrences starting 09/28/2018 until 09/28/2018 LDH, TOTAL BODY FLUID LAB Routine ONCE for 1 Occurrences starting 09/28/2018 until 09/28/2018 BODY FLUID CELL COUNT LAB Routine ONCE for 1 Occurrences starting 09/28/2018 until 09/28/2018 T.PROTEIN BODY FLUID LAB Routine ONCE for 1 Occurrences starting 09/28/2018 until 09/28/2018 ASPIRATE OR ABSCESS LAB Routine ONCE for 1 CULTURE(AEROBIC/ANAEROBIC) Occurrences starting 09/28/2018 until 09/28/2018 LDH TOTAL BODY FLUID LAB Routine Once for 1 Occurrences starting 09/28/2018 until 09/28/2018 BODY FLUID DIRECT COUNT LAB Routine Once for 1 Occurrences starting 09/28/2018 until 09/28/2018 CT ABDOMEN PELVIS W IMAGING NELL Tubo-ovarian abscess ONCE for 1 CONTRAST Occurrences starting 09/28/2018 until 09/28/2018 ASPIRATE OR ABSCESS LAB Routine Tubo-ovarian abscess ONCE for 1 CULTURE(AEROBIC/ANAEROBIC) Occurrences starting 09/29/2018 until 09/29/2018 BODY FLUID CELL COUNT LAB Routine Tubo-ovarian abscess ONCE for 1 Occurrences starting 09/29/2018 until 09/29/2018 GC & CHLAMYDIA AMPLIFIED LAB Routine ONCE for 1 ASSAY Occurrences starting 09/29/2018 until 09/29/2018 Vancomycin Trough Level - LAB Routine ONCE for 1 Draw within 30 minutes Occurrences starting prior to 4th dose. 09/30/2018 until 09/30/2018 IR DRAINAGE BY CATHETER IMAGING STAT Tubo-ovarian abscess ONCE for 1 PERITONEAL OR Occurrences starting RETROPERITONEAL 10/04/2018 until 10/04/2018 WOUND/ASPIRATE OR ABSCESS LAB Routine Tubo-ovarian abscess ONCE for 1 CULTURE Occurrences starting 10/05/2018 until 10/05/2018 IR OTHER IMAGING Routine Tubo-ovarian abscess Expected: 10/06/2018, Expires: 10/07/2019 Health Maintenance Due Date Last Done Comments PNEUMOCOCCAL 0-64 YEARS COMBINED 1994 SERIES (1 of 1 - PPSV23) EYE EXAM 1998 LDL-C 1998 URINE MICROALBUMIN 1998 VARICELLA VACCINES (1 of 2 - 13+ 2001 2-dose series) FOOT EXAM 2006 DTaP,Tdap,and Td Vaccines (1 - 10/26/2007 Tdap) PAP SMEAR 03/04/2014 03/04/2011 INFLUENZA VACCINE (#1) 2018 HgA1C 03/31/2019 09/28/2018, 08/16/2018 CREATININE (SERUM) 10/05/2019 10/04/2018, 10/04/2018, 09/28/2018, Additional history exists documented as of this encounter Procedures Procedure Name Priority Date/Time Associated Comments Diagnosis POCT GLUCOSE Routine 10/06/2018 7:23 Results for this (AUTOMATED) AM CDT procedure are in the results section. CBC WITH DIFFERENTIAL NELL 10/06/2018 3:57 Results for this AM CDT procedure are in the results section. CBC WITH DIFF NELL 10/06/2018 3:57 Results for this AM CDT procedure are in the results section. POCT GLUCOSE Routine 10/05/2018 8:03 Results for this (AUTOMATED) PM CDT procedure are in the results section. POCT GLUCOSE Routine 10/05/2018 11:47 Results for this (AUTOMATED) AM CDT procedure are in the results section. EXTRA TUBE RED Routine 10/05/2018 10:54 AM CDT VANCOMYCIN TROUGH NELL 10/05/2018 10:54 Results for this AM CDT procedure are in the results section. POCT GLUCOSE Routine 10/05/2018 7:51 Results for this (AUTOMATED) AM CDT procedure are in the results section. VANCOMYCIN TROUGH Routine 10/04/2018 7:56 Results for this PM CDT procedure are in the results section. POCT GLUCOSE Routine 10/04/2018 7:51 Results for this (AUTOMATED) PM CDT procedure are in the results section. PROTHROMBIN TIME / INR Routine 10/04/2018 4:26 Results for this PM CDT procedure are in the results section. BASIC METABOLIC PANEL Routine 10/04/2018 4:26 Results for this (NA, K, CL, CO2, PM CDT procedure are in GLUCOSE, BUN, the results CREATININE, CA) section. POCT GLUCOSE Routine 10/04/2018 3:24 Results for this (AUTOMATED) PM CDT procedure are in the results section. POCT GLUCOSE Routine 10/04/2018 7:39 Results for this (AUTOMATED) AM CDT procedure are in the results section. BASIC METABOLIC PANEL Routine 10/04/2018 4:50 Results for this (NA, K, CL, CO2, AM CDT procedure are in GLUCOSE, BUN, the results CREATININE, CA) section. POCT GLUCOSE Routine 10/03/2018 10:15 Results for this (AUTOMATED) PM CDT procedure are in the results section. POCT GLUCOSE Routine 10/03/2018 5:57 Results for this (AUTOMATED) PM CDT procedure are in the results section. POCT GLUCOSE Routine 10/03/2018 1:20 Results for this (AUTOMATED) PM CDT procedure are in the results section. CBC WITH DIFFERENTIAL STAT 10/03/2018 10:43 Results for this AM CDT procedure are in the results section. CBC WITH DIFF STAT 10/03/2018 10:43 Results for this AM CDT procedure are in the results section. POCT GLUCOSE Routine 10/03/2018 8:19 Results for this (AUTOMATED) AM CDT procedure are in the results section. HIV 1/2 AG-AB WITH Routine 10/03/2018 6:45 Results for this REFLEX AM CDT procedure are in the results section. POCT GLUCOSE Routine 10/02/2018 10:12 Results for this (AUTOMATED) PM CDT procedure are in the results section. VANCOMYCIN TROUGH STAT 10/02/2018 10:03 Results for this PM CDT procedure are in the results section. POCT GLUCOSE Routine 10/02/2018 5:58 Results for this (AUTOMATED) PM CDT procedure are in the results section. POCT GLUCOSE Routine 10/02/2018 12:06 Results for this (AUTOMATED) PM CDT procedure are in the results section. POCT GLUCOSE Routine 10/02/2018 7:51 Results for this (AUTOMATED) AM CDT procedure are in the results section. POCT GLUCOSE Routine 10/01/2018 8:04 Results for this (AUTOMATED) PM CDT procedure are in the results section. POCT GLUCOSE Routine 10/01/2018 5:54 Results for this (AUTOMATED) PM CDT procedure are in the results section. FL BARIUM ENEMA STAT 10/01/2018 5:21 Tubo-ovarian Results for this PM CDT abscess procedure are in the results section. PROTHROMBIN TIME / INR NELL 10/01/2018 3:03 Results for this PM CDT procedure are in the results section. VANCOMYCIN TROUGH Routine 10/01/2018 2:00 Results for this PM CDT procedure are in the results section. POCT GLUCOSE Routine 10/01/2018 11:35 Results for this (AUTOMATED) AM CDT procedure are in the results section. POCT GLUCOSE Routine 10/01/2018 8:29 Results for this (AUTOMATED) AM CDT procedure are in the results section. POCT GLUCOSE Routine 09/30/2018 8:10 Results for this (AUTOMATED) PM CDT procedure are in the results section. POCT GLUCOSE Routine 09/30/2018 5:14 Results for this (AUTOMATED) PM CDT procedure are in the results section. POCT GLUCOSE Routine 09/30/2018 2:14 Results for this (AUTOMATED) PM CDT procedure are in the results section. POCT GLUCOSE Routine 09/30/2018 8:00 Results for this (AUTOMATED) AM CDT procedure are in the results section. BLOOD CULTURE SCREEN NELL 09/30/2018 2:06 Results for this AM CDT procedure are in the results section. BLOOD CULTURE SCREEN NELL 09/30/2018 2:04 Results for this AM CDT procedure are in the results section. POCT GLUCOSE Routine 09/29/2018 10:08 Results for this (AUTOMATED) PM CDT procedure are in the results section. POCT GLUCOSE Routine 09/29/2018 4:14 Results for this (AUTOMATED) PM CDT procedure are in the results section. POCT GLUCOSE Routine 09/29/2018 11:18 Results for this (AUTOMATED) AM CDT procedure are in the results section. POCT GLUCOSE Routine 09/29/2018 7:55 Results for this (AUTOMATED) AM CDT procedure are in the results section. CBC WITH DIFFERENTIAL Routine 09/29/2018 5:46 Results for this AM CDT procedure are in the results section. EXTRA TUBE SST Routine 09/29/2018 5:46 AM CDT CBC WITH DIFF Routine 09/29/2018 5:46 Results for this AM CDT procedure are in the results section. POCT GLUCOSE Routine 09/28/2018 8:47 Results for this (AUTOMATED) PM CDT procedure are in the results section. POCT GLUCOSE Routine 09/28/2018 5:36 Results for this (AUTOMATED) PM CDT procedure are in the results section. CT ABDOMEN PELVIS W STAT 09/28/2018 1:45 Tubo-ovarian Results for this CONTRAST PM CDT abscess procedure are in the results section. URINE CULTURE Routine 09/28/2018 11:55 Results for this AM CDT procedure are in the results section. POCT GLUCOSE Routine 09/28/2018 11:30 Results for this (AUTOMATED) AM CDT procedure are in the results section. BLOOD CULTURE WORKUP Routine 09/28/2018 10:46 Results for this AM CDT procedure are in the results section. BLOOD CULTURE SCREEN Routine 09/28/2018 10:46 Results for this AM CDT procedure are in the results section. GRAM POSITIVE BLOOD Routine 09/28/2018 10:36 Results for this PATHOGENS DNA AM CDT procedure are in PROBE-ANAEROBIC the results section. BLOOD CULTURE WORKUP Routine 09/28/2018 10:36 Results for this AM CDT procedure are in the results section. BLOOD CULTURE SCREEN Routine 09/28/2018 10:36 Results for this AM CDT procedure are in the results section. US TRANSVAGINAL NELL 09/28/2018 10:08 Tubo-ovarian Results for this AM CDT abscess procedure are in the results section. POCT GLUCOSE Routine 09/28/2018 7:42 Results for this (AUTOMATED) AM CDT procedure are in the results section. CBC WITH DIFFERENTIAL Routine 09/28/2018 6:18 Results for this AM CDT procedure are in the results section. PROTHROMBIN TIME / INR Routine 09/28/2018 6:18 Results for this AM CDT procedure are in the results section. GLYCOSYLATED Add-on 09/28/2018 6:18 Results for this HEMOGLOBIN (A1C) AM CDT procedure are in the results section. CBC WITH DIFF Routine 09/28/2018 6:18 Results for this AM CDT procedure are in the results section. BASIC METABOLIC PANEL Routine 09/28/2018 6:18 Results for this (NA, K, CL, CO2, AM CDT procedure are in GLUCOSE, BUN, the results CREATININE, CA) section. LACTATE DEHYDROGENASE Routine 09/28/2018 6:18 Results for this AM CDT procedure are in the results section. POCT GLUCOSE Routine 09/28/2018 6:13 Results for this (AUTOMATED) AM CDT procedure are in the results section. MRSA / MSSA SCREEN BY Routine 09/28/2018 6:10 Results for this PCR, NARES AM CDT procedure are in the results section. documented in this encounter Results POCT GLUCOSE (AUTOMATED) (10/06/2018 7:23 AM CDT) POCT GLU 95 70 - 110 mg/dL [facility] Specimen Blood Performing Organization Address City/State/Zipcode Phone Number [facility] CLIA: [id number], [address] [place] [address] [facility] CBC WITH DIFFERENTIAL (10/06/2018 3:57 AM CDT) WBC 10.73 4.30 - 11.10 [facility] 10*3/L SERVICES RBC 3.68 (L) 3.93 - 5.25 [facility] 10*6/L SERVICES HGB 9.8 (L) 11.6 - 15.0 [facility] g/dL SERVICES HCT 31.2 (L) 35.7 - 45.2 % [facility] MCV 84.8 80.6 - 95.5 fL [facility] MCH 26.6 25.9 - 32.8 pg [facility] MCHC 31.4 (L) 31.6 - 35.1 [facility] g/dL SERVICES RDW-SD 45.8 39.0 - 49.9 fL [facility] RDW-CV 14.9 12.0 - 15.5 % [facility] PLT 379 (H) 166 - 358 [facility] 10*3/L SERVICES MPV 10.1 9.5 - 12.9 fL [facility] NRBC/100 WBC 0.0 0.0 - 10.0 /100 [facility] WBCs SERVICES NRBC x10^3 <0.01 10*3/L [facility] GRAN MAT (NEUT) % 78.2 % [facility] IMM GRAN % 0.50 % [facility] LYMPH % 14.5 % [facility] MONO % 5.2 % [facility] EOS % 1.1 % [facility] BASO % 0.5 % [facility] GRAN MAT x10^3(ANC) 8.39 (H) 1.88 - 7.09 [facility] 10*3/uL SERVICES IMM GRAN x10^3 0.05 0.00 - 0.06 [facility] 10*3/uL SERVICES LYMPH x10^3 1.56 1.32 - 3.29 [facility] 10*3/uL SERVICES MONO x10^3 0.56 0.33 - 0.92 [facility] 10*3/uL SERVICES EOS x10^3 0.12 0.03 - 0.39 [facility] 10*3/uL SERVICES BASO x10^3 0.05 0.01 - 0.07 [facility] 10*3/uL SERVICES Specimen Blood - HAND, LEFT Performing Organization Address City/State/Zipcode Phone Number [facility] CLIA: [id number], [address] [place] [id number] [facility] POCT GLUCOSE (AUTOMATED) (10/05/2018 8:03 PM CDT) POCT GLU 121 (H) 70 - 110 mg/dL [facility] Specimen Blood Performing Organization Address [facility] Phone Number [facility] CLIA: [id number], [address] [place] [id number] [facility] POCT GLUCOSE (AUTOMATED) (10/05/2018 11:47 AM CDT) POCT GLU 228 (H) 70 - 110 mg/dL [facility] Specimen Blood Performing Organization Address [facility] Phone Number [facility] CLIA: [id number], [address] [place] [address] [phone] [facility] EXTRA TUBE RED (10/05/2018 10:54 AM CDT) Specimen Blood Performing Organization Address [facility] Phone Number [facility] CLIA: [id number], [address] [place] [address] 22643 [phone] [facility] Vancomycin Trough Level - Draw immediately prior to the NEXT dose, but, no more than 60 minutes before the NEXT dose. (10/05/2018 10:54 AM CDT) VANCO TROUGH 19.5 10.0 - 20.0 ug/mL [facility] Specimen Blood - ARM, RIGHT Narrative Performed At Toxic Range:>20 ug/mL [facility] 15-20 ug/mL is recommended for severe infection or when Vancomycin SONIA is greater than or equal to 2. Performing Organization Address [facility] Phone Number [facility] CLIA: [id number], [address] [place] [address] 55067 [facility] POCT GLUCOSE (AUTOMATED) (10/05/2018 7:51 AM CDT) POCT GLU 115 (H) 70 - 110 mg/dL [facility] Specimen Blood Performing Organization Address [facility] Phone Number [facility] CLIA: [id number], [address] [place] [address] 51372 [facility] Vancomycin Trough Level - Draw immediately prior to the 4TH dose, but, no more than 60 minutes before the 4TH dose. (10/04/2018 7:56 PM CDT) Pathologist [facility] VANCO TROUGH 12.1 10.0 - 20.0 ug/mL [facility] Specimen Blood - LINE, VENOUS Narrative Performed At Toxic Range:>20 ug/mL [facility] 15-20 ug/mL is recommended for severe infection or when Vancomycin SONIA is greater than or equal to 2. Performing Organization Address [facility] Phone Number [facility] CLIA: [id number], [address] [place] [address] [phone] [facility] POCT GLUCOSE (AUTOMATED) (10/04/2018 7:51 PM CDT) [facility] POCT GLU 143 (H) 70 - 110 mg/dL [facility] Specimen Blood Performing Organization Address [facility] Phone Number [facility] CLIA: [id number], [address] [place] [address] [phone] [facility] PROTHROMBIN TIME / INR (10/04/2018 4:26 PM CDT) Pathologist [facility] PROTIME PATIENT 13.0 (H) 10.1 - 12.6 [facility] Seconds SERVICES INR 1.2Comment: Normal [facility] INR <1.1; Warfarin SERVICES Therapeutic range 2.0 to 3.0 or 2.5 to 3.5, depending upon the indications. Specimen Blood - ARM, LEFT Performing Organization Address [facility] Phone Number [facility] CLIA: [id number], [address] [place] [address] 31713 [facility] BASIC METABOLIC PANEL (NA, K, CL, CO2, GLUCOSE, BUN, CREATININE, CA) (2018 4:26 PM CDT) Pathologist [facility] NA 139 135 - 145 [facility] mmol/L SERVICES K 3.2 (L) 3.5 - 5.0 [facility] mmol/L SERVICES CL 103 98 - 108 mmol/L [facility] CO2 TOTAL 29 23 - 31 mmol/L [facility] AGAP 7 2 - 16 [facility] BUN 5 (L) 7 - 23 mg/dL [facility] GLUCOSE 153 (H) 70 - 110 mg/dL [facility] CREATININE 0.74 0.50 - 1.04 [facility] mg/dL SERVICES CALCIUM 9.0 8.6 - 10.6 [facility] mg/dL SERVICES eGFR Calculation 92.8 mL/min/1.73m2 [facility] (Non- SERVICES Citizen Of [place]) eGFR Calculation 112.5 mL/min/1.73m2 [facility] () SERVICES Specimen Blood - ARM, LEFT Narrative Performed At Association of Glomerular Filtration Rate (GFR) and Staging [facility] of Kidney Disease* + + + + | GFR (mL/min/1.73 m2)| With Kidney Damage|Without Kidney Damage + + + + |>90|Stage one| Normal + + + + |60-89|Stage two| Decreased GFR + + + + |30-59|Stage three| Stage three + + + + |15-29|Stage four | Stage four + + + + |<15 (or dialysis)|Stage five | Stage five + + + + *Each stage assumes the associated GFR level has been in effect for at least three months.Stages 1 to 5, with or without kidney disease, indicate chronic kidney disease. Notes: Determination of stages one and two (with eGFR >59mL/min/1.73 m2) requires estimation of kidney damage for at least three months as defined by structural or functional abnormalities of the kidney, manifested by either: Pathological abnormalities or Markers of kidney damage (including abnormalities in the composition of the blood or urine or abnormalities in imaging tests). Performing Organization Address City/[facility] Phone Number [facility] CLIA: [id number], [address] [place] [address] [phone] [facility] POCT GLUCOSE (AUTOMATED) (10/04/2018 3:24 PM CDT) [facility] POCT GLU 166 (H) 70 - 110 mg/dL [facility] Specimen Blood Performing Organization Address City/[facility]/Zipcode Phone Number [facility] CLIA: [id number], [address] [place] [address] 22071 [phone] [facility] POCT GLUCOSE (AUTOMATED) (10/04/2018 7:39 AM CDT) POCT GLU 109 70 - 110 mg/dL [facility] Specimen Blood Performing Organization Address City/State/Zipcode Phone Number [facility] CLIA: [id number], [address] [place], [place] [address] [phone] [facility] BASIC METABOLIC PANEL (NA, K, CL, CO2, GLUCOSE, BUN, CREATININE, CA) (2018 4:50 AM CDT) NA 138 135 - 145 mmol/L [facility] K 3.7 3.5 - 5.0 mmol/L [facility] CL 106 98 - 108 mmol/L [facility] CO2 TOTAL 25 23 - 31 mmol/L [facility] AGAP 7 2 - 16 [facility] BUN 5 (L) 7 - 23 mg/dL [facility] GLUCOSE 109 70 - 110 mg/dL [facility] CREATININE 0.64 0.50 - 1.04 [facility] mg/dL SERVICES CALCIUM 8.7 8.6 - 10.6 mg/dL [facility] eGFR Calculation 109.7 mL/min/1.73m2 [facility] (Non-) SERVICES eGFR Calculation 133.0 mL/min/1.73m2 [facility] () SERVICES Specimen Blood - HAND, LEFT Narrative Performed At Association of Glomerular Filtration Rate (GFR) and Staging [facility] of Kidney Disease* + + + + | GFR (mL/min/1.73 m2)| With Kidney Damage|Without Kidney Damage + + + + |>90|Stage one| Normal + + + + |60-89|Stage two| Decreased GFR + + + + |30-59|Stage three| Stage three + + + + |15-29|Stage four | Stage four + + + + |<15 (or dialysis)|Stage five | Stage five + + + + *Each stage assumes the associated GFR level has been in effect for at least three months.Stages 1 to 5, with or without kidney disease, indicate chronic kidney disease. Notes: Determination of stages one and two (with eGFR >59mL/min/1.73 m2) requires estimation of kidney damage for at least three months as defined by structural or functional abnormalities of the kidney, manifested by either: Pathological abnormalities or Markers of kidney damage (including abnormalities in the composition of the blood or urine or abnormalities in imaging tests). Performing Organization Address City/State/Zipcode Phone Number [facility] CLIA: [id number], [address] [place] [address] 93600 [phone] [facility] POCT GLUCOSE (AUTOMATED) (10/03/2018 10:15 PM CDT) POCT GLU 172 (H) 70 - 110 mg/dL [facility] Specimen Blood Performing Organization Address [facility] Phone Number [facility] CLIA: [id number], [address] [place] [address] 61450 [phone] [facility] POCT GLUCOSE (AUTOMATED) (10/03/2018 5:57 PM CDT) POCT GLU 123 (H) 70 - 110 mg/dL [facility] Specimen Blood Performing Organization Address [facility] Phone Number [facility] CLIA: [id number], [address] [place] [address] [phone] [facility] POCT GLUCOSE (AUTOMATED) (10/03/2018 1:20 PM CDT) POCT GLU 138 (H) 70 - 110 mg/dL [facility] Specimen Blood Performing Organization Address [facility] Phone Number [facility] CLIA: [id number], [address] [place] [address] [phone] [facility] CBC WITH DIFFERENTIAL (10/03/2018 10:43 AM CDT) WBC 10.94 4.30 - 11.10 [facility] 10*3/L SERVICES RBC 3.47 (L) 3.93 - 5.25 [facility] 10*6/L SERVICES HGB 9.1 (L) 11.6 - 15.0 [facility] g/dL SERVICES HCT 29.1 (L) 35.7 - 45.2 % [facility] MCV 83.9 80.6 - 95.5 fL [facility] MCH 26.2 25.9 - 32.8 pg [facility] MCHC 31.3 (L) 31.6 - 35.1 [facility] g/dL SERVICES RDW-SD 44.6 39.0 - 49.9 fL [facility] RDW-CV 14.6 12.0 - 15.5 % [facility] PLT 376 (H) 166 - 358 [facility] 10*3/L SERVICES MPV 10.3 9.5 - 12.9 fL [facility] NRBC/100 WBC 0.0 0.0 - 10.0 /100 [facility] WBCs SERVICES NRBC x10^3 <0.01 10*3/L [facility] GRAN MAT (NEUT) % 76.2 % [facility] IMM GRAN % 0.50 % [facility] LYMPH % 14.7 % [facility] MONO % 7.3 % [facility] EOS % 1.0 % [facility] BASO % 0.3 % [facility] GRAN MAT x10^3(ANC) 8.34 (H) 1.88 - 7.09 [facility] 10*3/uL SERVICES IMM GRAN x10^3 0.05 0.00 - 0.06 [facility] 10*3/uL SERVICES LYMPH x10^3 1.61 1.32 - 3.29 [facility] 10*3/uL SERVICES MONO x10^3 0.80 0.33 - 0.92 [facility] 10*3/uL SERVICES EOS x10^3 0.11 0.03 - 0.39 [facility] 10*3/uL SERVICES BASO x10^3 0.03 0.01 - 0.07 [facility] 10*3/uL SERVICES Specimen Blood - ARM, RIGHT Performing Organization Address City/State/Zipcode Phone Number [facility] CLIA: [id number], [address] [place] [address] 75897 [facility] POCT GLUCOSE (AUTOMATED) (10/03/2018 8:19 AM CDT) POCT GLU 112 (H) 70 - 110 mg/dL [facility] Specimen Blood Performing Organization Address City/[facility]/Zipcode Phone Number [facility] CLIA: [id number], [address] [place] [address] 16773 [phone] [facility] HIV 1/2 AG-AB WITH REFLEX (10/03/2018 6:45 AM CDT) HIV 1/2 Ag-Ab with Negative Negative [facility] Reflex SERVICES HIV Semi-quantitative 0.07 [facility] Specimen Blood - ARM, RIGHT Narrative Performed At Non-reactive for HIV-1 antigen and HIV-1/HIV-2 [facility] antibodies.No laboratory evidence of HIV infection.Repeat in 2-4 weeks if acute HIV infection is suspected. Performing Organization Address City/State/[facility] Phone Number [facility] CLIA: [id number], [address] [place] [address] [phone] [facility] POCT GLUCOSE (AUTOMATED) (10/02/2018 10:12 PM CDT) Pathologist [facility] POCT GLU 151 (H) 70 - 110 mg/dL [facility] Specimen Blood Narrative Performed At Notified Provider [facility] Performing Organization Address City/[facility] Phone Number [facility] CLIA: [id number], [address] [place] [address] 64319 [phone] [facility] Vancomycin Trough Level - Draw immediately prior to the 4TH dose, but, no more than 60 minutes before the NEXT dose. (10/02/2018 10:03 PM CDT) Pathologist [facility] VANCO TROUGH 8.2 (L) 10.0 - 20.0 ug/mL [facility] Specimen Blood - ARM, RIGHT Narrative Performed At Toxic Range:>20 ug/mL [facility] 15-20 ug/mL is recommended for severe infection or when Vancomycin SONIA is greater than or equal to 2. Performing Organization Address City/[facility] Phone Number [facility] CLIA: [id number], [address] [place] [address] [phone] [facility] POCT GLUCOSE (AUTOMATED) (10/02/2018 5:58 PM CDT) POCT GLU 131 (H) 70 - 110 mg/dL [facility] Specimen Blood Performing Organization Address City/[facility] Phone Number [facility] CLIA: [id number], [address] [place] [address] 21932 [facility] POCT GLUCOSE (AUTOMATED) (10/02/2018 12:06 PM CDT) POCT GLU 236 (H) 70 - 110 mg/dL [facility] Specimen Blood Performing Organization Address [facility] Phone Number [facility] CLIA: [id number], [address] [place] [address] 27373 [phone] [facility] POCT GLUCOSE (AUTOMATED) (10/02/2018 7:51 AM CDT) POCT GLU 117 (H) 70 - 110 mg/dL [facility] Specimen Blood Performing Organization Address [facility] Phone Number [facility] CLIA: [id number], [address] [place] [address] 88335 [facility] POCT GLUCOSE (AUTOMATED) (10/01/2018 8:04 PM CDT) POCT GLU 103 70 - 110 mg/dL [facility] Specimen Blood Performing Organization Address [facility] Phone Number [facility] CLIA: [id number], [address] [place] [address] 49079 [facility] POCT GLUCOSE (AUTOMATED) (10/01/2018 5:54 PM CDT) POCT GLU 94 70 - 110 mg/dL [facility] Specimen Blood Performing Organization Address [facility] Phone Number [facility] CLIA: [id number], [address] [place] [address] [phone] [facility] FL BARIUM ENEMA (10/01/2018 5:21 PM CDT) Specimen Impressions Performed At PACS/VR/DOSE No extraluminal contrast leakage or fistulous communication is identified in the urinary calculus is slightly was observed. Deysi Vincent MD., have reviewed this study and agree with the above report. 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 TECHNIQUE and FINDINGS: Patient was administered with 450 cc of water-soluble contrast per rectum. Cine and static fluoroscopic images were obtained in AP, lateral oblique, and lateral views. The rectum and colon were examined to the level of hepatic flexure. No extraluminal contrast leakage was observed. 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 TECHNIQUE and FINDINGS: Patient was administered with 450 cc of water-soluble contrast per rectum. Cine and static fluoroscopic images were obtained in AP, lateral oblique, and lateral views. The rectum and colon were examined to the level of hepatic flexure. No extraluminal contrast leakage was observed. IMPRESSION No extraluminal contrast leakage or fistulous communication is identified in the urinary calculus is slightly was observed. IJaquan MD., have reviewed this study and agree with the above report. Performing Organization Address City/State/Zipcode Phone Number PACS/VR/DOSE Prothrombin Time / INR (10/01/2018 3:03 PM CDT) PROTIME PATIENT 12.4 10.1 - 12.6 [facility] Seconds SERVICES INR 1.1Comment: Normal [facility] INR <1.1; Warfarin SERVICES Therapeutic range 2.0 to 3.0 or 2.5 to 3.5, depending upon the indications. Specimen Blood - HAND, LEFT Performing Organization Address City/State/Zipcode Phone Number [facility] CLIA: [id number], [address] [place] [address] 49781 [facility] Vancomycin Trough Level - Draw immediately prior to the NEXT dose, but, no more than 60 minutes before the 4TH dose. (10/01/2018 2:00 PM CDT) VANCO TROUGH 7.8 (L) 10.0 - 20.0 ug/mL [facility] Specimen Blood - HAND, LEFT Narrative Performed At Toxic Range:>20 ug/mL [facility] 15-20 ug/mL is recommended for severe infection or when Vancomycin SONIA is greater than or equal to 2. Performing Organization Address City/[facility]/Zipcode Phone Number [facility] CLIA: [id number], [address] [place] [address] 43397 [facility] POCT GLUCOSE (AUTOMATED) (10/01/2018 11:35 AM CDT) POCT GLU 91 70 - 110 mg/dL [facility] Specimen Blood Performing Organization Address [facility] Phone Number [facility] CLIA: [id number], [address] [place] [phone] [place] POCT GLUCOSE (AUTOMATED) (10/01/2018 8:29 AM CDT) POCT GLU 114 (H) 70 - 110 mg/dL [facility] Specimen Blood Performing Organization Address [facility] Phone Number [facility] CLIA: [id number], [address] [place] [address] 85103 [phone] [facility] POCT GLUCOSE (AUTOMATED) (09/30/2018 8:10 PM CDT) POCT GLU 229 (H) 70 - 110 mg/dL [facility] Specimen Blood Performing Organization Address [facility] Phone Number [facility] CLIA: [id number], [address] [place] [address] [phone] [place] POCT GLUCOSE (AUTOMATED) (09/30/2018 5:14 PM CDT) POCT GLU 240 (H) 70 - 110 mg/dL [facility] Specimen Blood Performing Organization Address [facility] Phone Number [facility] CLIA: [id number], [address] [place] [address] [phone] POCT GLUCOSE (AUTOMATED) (09/30/2018 2:14 PM CDT) POCT GLU 149 (H) 70 - 110 mg/dL [facility] Specimen Blood Performing Organization Address City/[facility]/Zipcode Phone Number [facility] CLIA: [id number], [address] [place] [address] 185483 [phone] [facility] POCT GLUCOSE (AUTOMATED) (09/30/2018 8:00 AM CDT) Pathologist [facility] POCT GLU 194 (H) 70 - 110 mg/dL [facility] Specimen Blood Performing Organization Address City/[facility] Phone Number [facility] CLIA: [id number], [address] [place] [address] 83066 [phone] [facility] BLOOD CULTURE SCREEN (09/30/2018 2:06 AM CDT) [facility] Blood No organisms isolated No growth [facility] Culture-Aerobic Comment: SERVICES Previous preliminary verified result was Culture In Progress on 09/30/2018 at 0601 CDT Previous preliminary verified result was No growth at 24 hours on 10/01/2018 at 0302 CDT Previous preliminary verified result was No growth at 48 hours on 10/02/2018 at 0302 CDT Previous preliminary verified result was No growth at 72 hours on 10/03/2018 at 0302 CDT Blood No organisms isolated No growth [facility] Culture-Anaerobic Comment: SERVICES Previous preliminary verified result was Culture In Progress on 09/30/2018 at 0601 CDT Previous preliminary verified result was No growth at 24 hours on 10/01/2018 at 0302 CDT Previous preliminary verified result was No growth at 48 hours on 10/02/2018 at 0302 CDT Previous preliminary verified result was No growth at 72 hours on 10/03/2018 at 0302 CDT Specimen Blood - HAND, LEFT Performing Organization Address [facility] Phone Number [facility] CLIA: [id number], [address] [place] [address] [phone] [facility] BLOOD CULTURE SCREEN (09/30/2018 2:04 AM CDT) Blood No organisms isolated No growth [facility] Culture-Aerobic Comment: SERVICES Previous preliminary verified result was Culture In Progress on 09/30/2018 at 0601 CDT Previous preliminary verified result was No growth at 24 hours on 10/01/2018 at 0302 CDT Previous preliminary verified result was No growth at 48 hours on 10/02/2018 at 0302 CDT Previous preliminary verified result was No growth at 72 hours on 10/03/2018 at 0302 CDT Blood No organisms isolated No growth [facility] Culture-Anaerobic Comment: SERVICES Previous preliminary verified result was Culture In Progress on 09/30/2018 at 0601 CDT Previous preliminary verified result was No growth at 24 hours on 10/01/2018 at 0302 CDT Previous preliminary verified result was No growth at 48 hours on 10/02/2018 at 0302 CDT Previous preliminary verified result was No growth at 72 hours on 10/03/2018 at 0302 CDT Specimen Blood - ARM, RIGHT Performing Organization Address City/[facility]/Zipcode Phone Number [facility] CLIA: [id number], [address] [place] [address] [phone] [facility] POCT GLUCOSE (AUTOMATED) (09/29/2018 10:08 PM CDT) POCT GLU 235 (H) 70 - 110 mg/dL [facility] Specimen Blood Performing Organization Address [facility] Phone Number [facility] CLIA: [id number], [address] [place] [address] 57475 [phone] [place] POCT GLUCOSE (AUTOMATED) (09/29/2018 4:14 PM CDT) POCT GLU 184 (H) 70 - 110 mg/dL [facility] Specimen Blood Performing Organization Address [facility] Phone Number [facility] CLIA: [id number], [address] [place] [address] [phone] [place] POCT GLUCOSE (AUTOMATED) (09/29/2018 11:18 AM CDT) POCT GLU 110 70 - 110 mg/dL [facility] Specimen Blood Performing Organization Address [facility] Phone Number [facility] CLIA: [id number], [address] [place] [address] [phone] POCT GLUCOSE (AUTOMATED) (09/29/2018 7:55 AM CDT) POCT GLU 155 (H) 70 - 110 mg/dL [facility] Specimen Blood Performing Organization Address City/State/Zipcode Phone Number [facility] CLIA: [id number], [address] [place] [address] [place] EXTRA TUBE SST (09/29/2018 5:46 AM CDT) Specimen Blood Performing Organization Address City/State/Zipcode Phone Number [facility] CLIA: [id number], [address] [place] [address] [phone] CBC WITH DIFFERENTIAL (09/29/2018 5:46 AM CDT) WBC 11.88 (H) 4.30 - 11.10 [facility] 10*3/L SERVICES RBC 3.73 (L) 3.93 - 5.25 [facility] 10*6/L SERVICES HGB 9.8 (L) 11.6 - 15.0 [facility] g/dL SERVICES HCT 30.9 (L) 35.7 - 45.2 % [facility] MCV 82.8 80.6 - 95.5 fL [facility] MCH 26.3 25.9 - 32.8 pg [facility] MCHC 31.7 31.6 - 35.1 [facility] g/dL SERVICES RDW-SD 43.8 39.0 - 49.9 fL [facility] SERVICES RDW-CV 14.5 12.0 - 15.5 % [facility] PLT 378 (H) 166 - 358 [facility] 10*3/L SERVICES MPV 10.5 9.5 - 12.9 fL [facility] NRBC/100 WBC 0.0 0.0 - 10.0 /100 [facility] WBCs SERVICES NRBC x10^3 <0.01 10*3/L [facility] GRAN MAT (NEUT) % 78.3 % [facility] IMM GRAN % 0.30 % [facility] LYMPH % 10.2 % [facility] MONO % 8.4 % [facility] EOS % 2.3 % [facility] BASO % 0.5 % [facility] GRAN MAT x10^3(ANC) 9.31 (H) 1.88 - 7.09 [facility] 10*3/uL SERVICES IMM GRAN x10^3 0.03 0.00 - 0.06 [facility] 10*3/uL SERVICES LYMPH x10^3 1.21 (L) 1.32 - 3.29 [facility] 10*3/uL SERVICES MONO x10^3 1.00 (H) 0.33 - 0.92 [facility] 10*3/uL SERVICES EOS x10^3 0.27 0.03 - 0.39 [facility] 10*3/uL SERVICES BASO x10^3 0.06 0.01 - 0.07 [facility] 10*3/uL SERVICES Specimen Blood - ARM, RIGHT Performing Organization Address [facility] [facility] Phone Number [facility] CLIA: [id number], [address] [place] [phone] [facility] POCT GLUCOSE (AUTOMATED) (09/28/2018 8:47 PM CDT) POCT GLU 193 (H) 70 - 110 mg/dL [facility] Specimen Blood Performing Organization Address [facility] Phone Number [facility] CLIA: [id number], [address] [place] [address] [facility] POCT GLUCOSE (AUTOMATED) (09/28/2018 5:36 PM CDT) POCT GLU 130 (H) 70 - 110 mg/dL [facility] Specimen Blood Performing Organization Address [facility] Phone Number [facility] CLIA: [id number], [address] [place] [phone] [facility] CT ABDOMEN PELVIS W CONTRAST (09/28/2018 1:45 PM CDT) Specimen Impressions Performed At PACS/VR/DOSE 1.Overall mild improvement of the adnexal inflammatory changes with interval decrease in the number of adnexal hypodense fluid collections compared to prior examination which are favored to represent bilateral tubo-ovarian abscesses. Complex ovarian cysts are also of consideration. The largest of these fluid collections measures 6.3 cm on the left and 6.2 cm on the right. 2.Unchanged retroperitoneal enlarged lymph nodes are likely reactive in nature. Flakito Vincent MD., have reviewed this study and agree with the above report. Narrative Performed At EXAM: CT ABDOMEN AND PELVIS WITH CONTRAST PACS/VR/DOSE HISTORY: Acute, generalized abdominal pain. COMPARISON: CT abdomen pelvis 08/15/2018. Pelvic ultrasound 09/27/2018. DOSE: Total exam DLP 1014 mGy-cm TECHNIQUE AND FINDINGS: Contiguous axial imaging from the level of the lung bases through the pubic symphysis was performed after the uncomplicated administration of 120 cc of intravenous Omnipaque contrast. Coronal and sagittal reconstructions were obtained.Auto mA and/or iterative reconstruction were used to reduce radiation dose. FINDINGS: LOWER THORAX: Bibasilar subsegmental atelectasis. No cardiomegaly. LIVER: Hepatomegaly (22.1 cm craniocaudally). No focal hepatic lesions. Normal contour. GALLBLADDER AND BILIARY TREE: No biliary ductal dilation.No gallbladder wall thickening. SPLEEN: No splenomegaly. PANCREAS: No ductal dilation or masses. ADRENAL GLANDS: No adrenal nodules. KIDNEYS: No hydronephrosis, stones, or masses. PERITONEUM AND RETROPERITONEUM: No free air or fluid. Small periumbilical fat-containing hernia. LYMPH NODES: Enlarged retroperitoneal lymph nodes measure up to 1.8 cm (axial image 57) and 1.5 cm (axial image 64). These lymph nodes are unchanged from prior examination and are likely reactive in nature. GI TRACT: No dilation or wall thickening. Prior appendectomy (coronal image 68). PELVIS/BLADDER: The urinary bladder is decompressed and the garcia do not appear thickened. The uterus is mildly enlarged and the bilateral ovaries contain multiple hypodense lesions with mildly enhancing garcia suggestive of cysts or fluid collections/tubo-ovarian abscesses with surrounding inflammatory fat stranding. The number of hypodense lesions has decreased especially on the left ovary from prior examination. The largest lesion on the left measures 6.3 cm, and the largest hypodense lesion on the right measures 6.2 cm . VESSELS: Unremarkable. BONES AND SOFT TISSUES: No suspicious lytic or sclerotic bony lesions. Procedure Note [facility], Radiant Results Inft User - 09/28/2018 3:32 PM CDT EXAM: CT ABDOMEN AND PELVIS WITH CONTRAST HISTORY: Acute, generalized abdominal pain. COMPARISON: CT abdomen pelvis 08/15/2018. Pelvic ultrasound 09/27/2018. DOSE: Total exam DLP 1014 mGy-cm TECHNIQUE AND FINDINGS: Contiguous axial imaging from the level of the lung bases through the pubic symphysis was performed after the uncomplicated administration of 120 cc of intravenous Omnipaque contrast. Coronal and sagittal reconstructions were obtained. Auto mA and/or iterative reconstruction were used to reduce radiation dose. FINDINGS: LOWER THORAX: Bibasilar subsegmental atelectasis. No cardiomegaly. LIVER: Hepatomegaly (22.1 cm craniocaudally). No focal hepatic lesions. Normal contour. GALLBLADDER AND BILIARY TREE: No biliary ductal dilation. No gallbladder wall thickening. SPLEEN: No splenomegaly. PANCREAS: No ductal dilation or masses. ADRENAL GLANDS: No adrenal nodules. KIDNEYS: No hydronephrosis, stones, or masses. PERITONEUM AND RETROPERITONEUM: No free air or fluid. Small periumbilical fat-containing hernia. LYMPH NODES: Enlarged retroperitoneal lymph nodes measure up to 1.8 cm (axial image 57) and 1.5 cm (axial image 64). These lymph nodes are unchanged from prior examination and are likely reactive in nature. GI TRACT: No dilation or wall thickening. Prior appendectomy (coronal image 68). PELVIS/BLADDER: The urinary bladder is decompressed and the garcia do not appear thickened. The uterus is mildly enlarged and the bilateral ovaries contain multiple hypodense lesions with mildly enhancing garcia suggestive of cysts or fluid collections/tubo-ovarian abscesses with surrounding inflammatory fat stranding. The number of hypodense lesions has decreased especially on the left ovary from prior examination. The largest lesion on the left measures 6.3 cm, and the largest hypodense lesion on the right measures 6.2 cm . VESSELS: Unremarkable. BONES AND SOFT TISSUES: No suspicious lytic or sclerotic bony lesions. IMPRESSION 1. Overall mild improvement of the adnexal inflammatory changes with interval decrease in the number of adnexal hypodense fluid collections compared to prior examination which are favored to represent bilateral tubo-ovarian abscesses. Complex ovarian cysts are also of consideration. The largest of these fluid collections measures 6.3 cm on the left and 6.2 cm on the right. 2. Unchanged retroperitoneal enlarged lymph nodes are likely reactive in nature. I, Naeem Patricio MD., have reviewed this study and agree with the above report. Performing Organization Address City/State/Zipcode Phone Number PACS/VR/DOSE URINE CULTURE (09/28/2018 11:55 AM CDT) URINE CULTURE < 10,000 CFU/mL mixed [facility] aerobic organisms - SERVICES suggests endogenous microbial contamination URINE CULTURE ESCHERICHIA COLI [facility] Specimen Urine - URINE, CLEAN CATCH Organism Antibiotic Method Susceptibility Escherichia coli Amoxacillin/Clavulanic SUSCEPTIBILITY TESTING >=32: Resistant acid Escherichia coli Ampicillin SUSCEPTIBILITY TESTING >=32: Resistant Escherichia coli Ampicillin/Sulbactam SUSCEPTIBILITY TESTING >=32: Resistant Escherichia coli Cefazolin SUSCEPTIBILITY TESTING 32: Intermediate Escherichia coli Ceftriaxone SUSCEPTIBILITY TESTING <=1: Susceptible Escherichia coli Ertapenem SUSCEPTIBILITY TESTING <=0.5: Susceptible Escherichia coli Gentamicin SUSCEPTIBILITY TESTING <=1: Susceptible Escherichia coli Levofloxacin SUSCEPTIBILITY TESTING <=0.12: Susceptible Escherichia coli Nitrofurantoin SUSCEPTIBILITY TESTING 32: Susceptible Escherichia coli Piperacillin/Tazobactam SUSCEPTIBILITY TESTING 8: Susceptible Escherichia coli Trimethoprim/Sulfamethoxa SUSCEPTIBILITY TESTING <=20: Susceptible zole Comment: Nitrofurantoin is not recommended for use in treating pyelonephritis or systemic disease. Performing Organization Address City/[facility] Phone Number [facility] CLIA: [id number], [address] [place] [address] [phone] [facility] POCT GLUCOSE (AUTOMATED) (09/28/2018 11:30 AM CDT) POCT GLU 124 (H) 70 - 110 mg/dL [facility] Specimen Blood Performing Organization Address City/[facility] Phone Number [facility] CLIA: [id number], [address] [place] [phone] [facility] BLOOD CULTURE WORKUP (09/28/2018 10:46 AM CDT) Blood Culture Coagulase negative [facility] Workup StaphylococcusComme SERVICES nt: Additional work-up performed only per request. Culture plate(s) will be saved until this date: - 10/08/2018 Gram stain Isolated from [facility] bottle Gram SERVICES positive cocci Specimen Blood - HAND, LEFT Performing Organization Address City/[facility] Phone Number [facility] CLIA: [id number], [address] [place] [address] [id number] [phone] [facility] BLOOD CULTURE SCREEN (09/28/2018 10:46 AM CDT) Blood Culture positive, identification to follow (AA) No growth [facility] Culture-Aerobic Comment: SERVICES Previous preliminary verified result was Culture In Progress on 09/29/2018 at 0001 CDT Previous preliminary verified result was No growth at 24 hours on 09/29/2018 at 2201 CDT Previous preliminary verified result was No growth at 48 hours on 09/30/2018 at 2201 CDT Blood No organisms isolated No growth [facility] Culture-Anaerobic Comment: SERVICES Previous preliminary verified result was Culture In Progress on 09/29/2018 at 0001 CDT Previous preliminary verified result was No growth at 24 hours on 09/29/2018 at 2201 CDT Previous preliminary verified result was No growth at 48 hours on 10/01/2018 at 0553 CDT Specimen Blood - HAND, LEFT Performing Organization Address City/State/Zipcode Phone Number [facility] CLIA: [id number], [address] [place] [address] [facility] GRAM POSITIVE BLOOD PATHOGENS DNA PROBE-ANAEROBIC (09/28/2018 10:36 AM CDT) Enterococcus faecalis Positive (A) Negative [facility] Streptococcus Positive (A) Negative [facility] agalactiae SERVICES Specimen Blood - ARM, RIGHT Narrative Performed At Streptococcus agalactiae detected by DNA probe. [facility] Preferred therapy for Streptococcus agalactiae bacteremia is penicillin G or ampicillin. In accordance with CLSI M100 guidelines, susceptibility testing of penicillin and other beta-lactams need not be performed due to the extremely rare nature of non-susceptible isolates. Please contact the Antimicrobial Stewardship Program with questions. ASP Pager:[phone] See blood culture results for additional information. Testing included eleven identification and three resistance marker targets. Enterococcus faecalis detected by DNA probe. Preferred therapy for Enterococcus faecalis bacteremia is ampicillin.See blood culture result for additional susceptibility information. Please contact the Antimicrobial Stewardship Program with questions. ASP Pager:[phone] Testing included eleven identification and three resistance marker targets. Performing Organization Address [facility]/Zipcode Phone Number [facility] CLIA: [id number], [address] [place] [address] [phone] [facility] BLOOD CULTURE WORKUP (09/28/2018 10:36 AM CDT) Blood Culture STREPTOCOCCUS [facility] Workup AGALACTIAEComment: SERVICES Organism identified by DNA probe Blood Culture Enterococcus [facility] Workup faecalisComment: SERVICES Organism identified by DNA probe Blood Culture Coagulase negative [facility] Workup StaphylococcusComment SERVICES : Additional work-up performed only per request. Culture plate(s) will be saved until this date: - 10/08/2018 Gram stain Isolated from [facility] anaerobic bottle Gram SERVICES positive cocci in pairs Gram stain Isolated from aerobic [facility] bottle Gram positive SERVICES cocciComment: This is an appended report. These results have been appended to a previously preliminary verified report. Specimen Blood - ARM, RIGHT Organism Antibiotic Method Susceptibility Streptococcus agalactiae Ampicillin SUSCEPTIBILITY TESTING 1 (Group B) Streptococcus agalactiae Cefotaxime SUSCEPTIBILITY TESTING 2: Resistant (Group B) Streptococcus agalactiae Clindamycin SUSCEPTIBILITY TESTING <=0.25: Susceptible (Group B) Streptococcus agalactiae Levofloxacin SUSCEPTIBILITY TESTING 1: Susceptible (Group B) Streptococcus agalactiae Linezolid SUSCEPTIBILITY TESTING <=2: Susceptible (Group B) Streptococcus agalactiae Penicillin SUSCEPTIBILITY TESTING 1 (Group B) Streptococcus agalactiae Tetracycline SUSCEPTIBILITY TESTING >=16: Resistant (Group B) Streptococcus agalactiae Vancomycin SUSCEPTIBILITY TESTING 0.5: Susceptible (Group B) Enterococcus faecalis Ampicillin SUSCEPTIBILITY TESTING <=2: Susceptible Enterococcus faecalis Vancomycin SUSCEPTIBILITY TESTING 2: Susceptible Performing Organization Address [facility] Phone Number [facility] CLIA: [id number], [address] [place] [phone] [facility] BLOOD CULTURE SCREEN (09/28/2018 10:36 AM CDT) Blood Culture positive, No growth [facility] Culture-Aerobic identification to SERVICES follow (AA)Comment: Previous preliminary verified result was Culture In Progress on 09/29/2018 at 0950 CDT Blood Culture positive, No growth [facility] Culture-Anaerobic identification to SERVICES follow (AA)Comment: Previous preliminary verified result was Culture In Progress on 09/29/2018 at 0001 CDT Specimen Blood - ARM, RIGHT Performing Organization Address City/State/Zipcode Phone Number [facility] CLIA: [id number], [address] [place] [address] [facility] US TRANSVAGINAL (09/28/2018 10:08 AM CDT) Specimen Impressions Performed At PACS/VR/DOSE The ovaries are enlarged with increased vascularity. Both ovaries contain complex round and tubular hypoechoic structures with low-level echoes which may represent bilateral tubo-ovarian abscesses. Similar findings were described on CT of the abdomen and pelvis dated 08/15/2018. Flakito Vincent MD., have reviewed this study and agree with the above report. Narrative Performed At EXAM: US TRANSVAGINAL PACS/VR/DOSE HISTORY: tubo-ovarian abscess COMPARISON: CT of the abdomen and pelvis 08/15/2018. TECHNIQUE: The study was performed at an outside facility. FINDINGS: The uterus is normal in size and echo-texture and exhibits no masses or focal defects.It measures 10.8 x 4.8 x 4.4 cm. (119 cc). The endometrial stripe is not clearly evaluated. The bilateral ovaries are enlarged, measuring 8.8 x 8.7 x 8.5 on the right and 8.1 x 7.1 x 5.9 cm on the left. Both ovaries contain cystic areas with low-level echoes and with curvilinear tubular structure with low-level echoes. These findings may represent bilateral tubo-ovarian abscesses. Similar findings were reported on CT of the abdomen and pelvis dated 08/15/2018. Both ovaries have increased vascularity with normal arterial waveforms. No fluid is present in the cul-de-sac. Procedure Note [facility], Radiant Results Inft User - 09/28/2018 1:52 PM CDT EXAM: US TRANSVAGINAL HISTORY: tubo-ovarian abscess COMPARISON: CT of the abdomen and pelvis 08/15/2018. TECHNIQUE: The study was performed at an outside facility. FINDINGS: The uterus is normal in size and echo-texture and exhibits no masses or focal defects. It measures 10.8 x 4.8 x 4.4 cm. (119 cc). The endometrial stripe is not clearly evaluated. The bilateral ovaries are enlarged, measuring 8.8 x 8.7 x 8.5 on the right and 8.1 x 7.1 x 5.9 cm on the left. Both ovaries contain cystic areas with low-level echoes and with curvilinear tubular structure with low-level echoes. These findings may represent bilateral tubo-ovarian abscesses. Similar findings were reported on CT of the abdomen and pelvis dated 08/15/2018. Both ovaries have increased vascularity with normal arterial waveforms. No fluid is present in the cul-de-sac. IMPRESSION The ovaries are enlarged with increased vascularity. Both ovaries contain complex round and tubular hypoechoic structures with low-level echoes which may represent bilateral tubo-ovarian abscesses. Similar findings were described on CT of the abdomen and pelvis dated 08/15/2018. INaeem MD., have reviewed this study and agree with the above report. Performing Organization Address City/[facility]/Zipcode Phone Number PACS/VR/DOSE POCT GLUCOSE (AUTOMATED) (09/28/2018 7:42 AM CDT) POCT GLU 138 (H) 70 - 110 mg/dL [facility] Specimen Blood Performing Organization Address City/[facility]/Zipcode Phone Number [facility] CLIA: [id number], [address] [place] [address] [phone] [facility] GLYCOSYLATED HEMOGLOBIN (A1C) (09/28/2018 6:18 AM CDT) HGB A1C 7.8 (H) 4.0 - 6.0 % [facility] Specimen Blood - ARM, RIGHT Performing Organization Address City/[facility] Phone Number [facility] CLIA: [id number], [address] [place] [address] [phone] [facility] LACTATE DEHYDROGENASE (09/28/2018 6:18 AM CDT) LDH 400 300 - 600 U/L [facility] Specimen Blood - ARM, RIGHT Performing Organization Address City/State/Zipcode Phone Number [facility] CLIA: [id number], [address] [place] [phone] [facility] PROTHROMBIN TIME / INR (09/28/2018 6:18 AM CDT) PROTIME PATIENT 13.5 (H) 10.1 - 12.6 [facility] Seconds SERVICES INR 1.2Comment: Normal [facility] INR <1.1; Warfarin SERVICES Therapeutic range 2.0 to 3.0 or 2.5 to 3.5, depending upon the indications. Specimen Blood - ARM, RIGHT Performing Organization Address [facility] Phone Number [facility] CLIA: [id number], [address] [place] [address] [facility] BASIC METABOLIC PANEL (NA, K, CL, CO2, GLUCOSE, BUN, CREATININE, CA) (2018 6:18 AM CDT) NA 138 135 - 145 [facility] mmol/L SERVICES K 3.6 3.5 - 5.0 [facility] mmol/L SERVICES CL 103 98 - 108 mmol/L [facility] CO2 TOTAL 26 23 - 31 mmol/L [facility] AGAP 9 2 - 16 [facility] BUN 10 7 - 23 mg/dL [facility] GLUCOSE 138 (H) 70 - 110 mg/dL [facility] CREATININE 0.73 0.50 - 1.04 [facility] mg/dL SERVICES CALCIUM 9.2 8.6 - 10.6 [facility] mg/dL SERVICES eGFR Calculation 94.3 mL/min/1.73m2 [facility] (Non- SERVICES Citizen [place]) eGFR Calculation 114.2 mL/min/1.73m2 [facility] () SERVICES Specimen Blood - ARM, RIGHT Narrative Performed At Association of Glomerular Filtration Rate (GFR) and Staging [facility] of Kidney Disease* + + + + | GFR (mL/min/1.73 m2)| With Kidney Damage|Without Kidney Damage + + + + |>90|Stage one| Normal + + + + |60-89|Stage two| Decreased GFR + + + + |30-59|Stage three| Stage three + + + + |15-29|Stage four | Stage four + + + + |<15 (or dialysis)|Stage five | Stage five + + + + *Each stage assumes the associated GFR level has been in effect for at least three months.Stages 1 to 5, with or without kidney disease, indicate chronic kidney disease. Notes: Determination of stages one and two (with eGFR >59mL/min/1.73 m2) requires estimation of kidney damage for at least three months as defined by structural or functional abnormalities of the kidney, manifested by either: Pathological abnormalities or Markers of kidney damage (including abnormalities in the composition of the blood or urine or abnormalities in imaging tests). Performing Organization Address City/State/Zipcode Phone Number [facility] CLIA: [id number], [address] [place] [address] [phone] [facility] CBC WITH DIFFERENTIAL (09/28/2018 6:18 AM CDT) WBC 16.19 (H) 4.30 - 11.10 [facility] 10*3/L SERVICES RBC 3.95 3.93 - 5.25 [facility] 10*6/L SERVICES HGB 10.2 (L) 11.6 - 15.0 [facility] g/dL SERVICES HCT 33.1 (L) 35.7 - 45.2 % [facility] MCV 83.8 80.6 - 95.5 fL [facility] MCH 25.8 (L) 25.9 - 32.8 pg [facility] MCHC 30.8 (L) 31.6 - 35.1 [facility] g/dL SERVICES RDW-SD 44.7 39.0 - 49.9 fL [facility] RDW-CV 14.6 12.0 - 15.5 % [facility] PLT 373 (H) 166 - 358 [facility] 10*3/L SERVICES MPV 10.1 9.5 - 12.9 fL [facility] NRBC/100 WBC 0.0 0.0 - 10.0 /100 [facility] WBCs SERVICES NRBC x10^3 <0.01 10*3/L [facility] GRAN MAT (NEUT) % 80.5 % [facility] IMM GRAN % 0.70 % [facility] LYMPH % 9.8 % [facility] MONO % 7.8 % [facility] EOS % 0.9 % [facility] BASO % 0.3 % [facility] GRAN MAT x10^3(ANC) 13.04 (H) 1.88 - 7.09 [facility] 10*3/uL SERVICES IMM GRAN x10^3 0.11 (H) 0.00 - 0.06 [facility] 10*3/uL SERVICES LYMPH x10^3 1.58 1.32 - 3.29 [facility] 10*3/uL SERVICES MONO x10^3 1.27 (H) 0.33 - 0.92 [facility] 10*3/uL SERVICES EOS x10^3 0.14 0.03 - 0.39 [facility] 10*3/uL SERVICES BASO x10^3 0.05 0.01 - 0.07 [facility] 10*3/uL SERVICES Specimen Blood - ARM, RIGHT Performing Organization Address City/State/Zipcode Phone Number [facility] CLIA: [id number], [address] [place] [address] [phone] [facility] POCT GLUCOSE (AUTOMATED) (09/28/2018 6:13 AM CDT) POCT GLU 121 (H) 70 - 110 mg/dL [facility] Specimen Blood Performing Organization Address City/[facility] Phone Number [facility] CLIA: [id number], [address] [place] [address] [phone] [place] MRSA / MSSA Screen by PCR, Nares (09/28/2018 6:10 AM CDT) MRSA Screen by PCR, Positive (A) Negative [facility] Nares SERVICES MRSA/MSSA Positive? Yes (A) No [facility] Specimen Swab - NARES, BOTH SIDES Narrative Performed At A positive test result does not necessarily indicate the [facility] presence of viable organism. Performing Organization Address [facility] Phone Number [facility] CLIA: [id number], [address] [place] [address] [phone] [facility] documented in this encounter Visit Diagnoses Diagnosis Tubo-ovarian abscess Salpingitis and oophoritis not specified as acute, subacute, or chronic Abdominal pain Abdominal pain, unspecified site Morbid obesity with body mass index of 40.0-49.9 STD (sexually transmitted disease) Venereal disease, unspecified Bacteremia due to Streptococcus Bacteremia Bacteremia due to Enterococcus Bacteremia Bacteremia due to group B Streptococcus PID (acute pelvic inflammatory disease) Acute parametritis and pelvic cellulitis Metabolic syndrome Dysmetabolic Syndrome X Type 2 diabetes mellitus with complication, without long-term current use of insulin documented in this encounter Administered Medications Medication Order MAR Action Action Date Dose Rate Site bisacodyl (DULCOLAX) tablet 10 mg 10 mg, Oral, PRE-PROCEDURE ONCE, 1 dose, Starting Thu10/03/18 at 1630, Until Discontinued, Routine, Bowel Prep, Colonoscopy bisacodyl (DULCOLAX) tablet 10 mg 10 mg, Oral, PRE-PROCEDURE ONCE, 1 dose, Starting Thu10/03/18 at 1300, Until Discontinued, Routine, Bowel Prep, Colonoscopy docusate (COLACE) capsule 100 mg 100 mg, Oral, BIDPRN, Starting Thu09/28/18 at 1045, Until Discontinued, Routine , Constipation famotidine 20 mg in NS 50 ml (PEPCID) 20 New Bag 10/06/2018 9:09 AM CDT 20 mg mg/50 mL Piggyback 20 mg 20 mg, IV Piggyback, Q12H, First dose on Thu09/29/18 at 2000, Until Discontinued, 50 mL New Bag 10/05/2018 9:09 PM CDT 20 mg New Bag 10/05/2018 7:55 AM CDT 20 mg insulin glargine (LANTUS U-100) Given 10/05/2018 9:10 PM CDT 34 Units Abdomen-SC injection 34 Units 34 Units, Subcutaneous, QHS, First dose on Thu09/28/18 at 2100, Until Discontinued, Routine Given 10/04/2018 9:05 PM CDT 34 Units Abdomen-SC Given 10/03/2018 10:25 PM CDT 34 Units Abdomen-SC linezolid (ZYVOX) tablet 600 mg Given 10/06/2018 9:09 AM CDT 600 mg 600 mg, Oral, Q12H, First dose on Thu10/06/18 at 0800, Until Discontinued, NELL, Reason for Anti-Infective: Empiric Therapy for Suspected Infection, Empiric Therapy Site: Pelvic, Duration of therapy: 72 hours, Restricted use approved by: GREG MOYA, [id number], ADULT ID NaCl 0.9% (NS) IV infusion 1,000 mL Rate Change 10/03/2018 5:52 PM CDT 42 mL/hr at 42 mL/hr, IV Infusion, CONTINUOUS, Starting Thu10/03/18 at 1615, Until Discontinued, Routine ondansetron (ZOFRAN (PF)) injection 4 mg Given 10/03/2018 10:17 AM CDT 4 mg 4 mg, Slow IV Push, Q6HPRN, Starting Thu10/01/18 at 1928, Until Discontinued, Routine, Nausea and Vomiting (N/V) Given 10/01/2018 7:51 PM CDT 4 mg sennosides (SENOKOT) tablet 8.6 mg 8.6 mg, Oral, QDAILYPRN, Starting Thu09/28/18 at 1045, Until Discontinued, Routine, Constipation Sliding Scale Insulin - Aspart Given 10/05/2018 12:48 PM CDT 3 Units Abdomen-SC (NOVOLOG) + Fsbg Testing Subcutaneous, TID MEALS, First dose on Thu10/01/18 at 1200, Until Discontinued, Routine Given 10/04/2018 5:30 PM CDT 1 Units Left Arm Given 10/04/2018 12:00 PM CDT 1 Units Abdomen-SC traMADol (ULTRAM) tablet 50 mg Given 10/06/2018 9:17 AM CDT 50 mg 50 mg, Oral, Q6HPRN, Starting Thu09/28/18 at 0853, Until Discontinued, Routine, Pain (scale 7-10) Given 10/05/2018 9:09 PM CDT 50 mg Given 10/03/2018 8:07 PM CDT 50 mg Medication Order MAR Action Action Date Dose Rate Site bisacodyl (DULCOLAX) tablet 10 mg Given 10/01/2018 1:26 PM CDT 10 mg 10 mg, Oral, PRE-PROCEDURE ONCE, 1 dose, Starting Thu10/01/18 at 1300, Until Thu10/01/18 at 1326, Routine, Bowel Prep, Colonoscopy cefOXitin in dextrose, iso-osm (MEFOXIN) 2 Given 09/29/2018 4:09 PM CDT 2 g gram/50 mL DUPLEX BAG 2 g 2 g, IV Piggyback, Q6H ABX, First dose on Thu09/28/18 at 1000, Until Discontinued, 50 mL, Reason for Anti-Infective: Empiric Therapy for Suspected Infection, Empiric Therapy Site: Pelvic, Duration of therapy: 72 hours Given 09/29/2018 11:12 AM CDT 2 g Given 09/29/2018 4:15 AM CDT 2 g D5W-LR IV infusion 1,000 mL New Bag 09/29/2018 5:46 AM CDT 1,000 mL 125 mL/hr at 125 mL/hr, IV Infusion, CONTINUOUS, Starting Thu09/28/18 at 0800, Until Thu09/29/18 at 1900, Routine New Bag 09/28/2018 9:14 PM CDT 1,000 mL 125 mL/hr New Bag 09/28/2018 9:00 AM CDT 1,000 mL 125 mL/hr diphenhydrAMINE (BENADRYL) 50 mg in NaCl New Bag 09/29/2018 7:45 PM CDT 50 mg 0.9% (NS) piggyback 50 mg, IV Piggyback, ONCE, 1 dose, Thu09/29/18 at 2015, 50 mL doxycycline (Vibramycin) capsule 100 mg Given 09/29/2018 4:09 PM CDT 100 mg 100 mg, Oral, Q12HA2, First dose on Thu09/28/18 at 0600, Until Discontinued, NELL, Reason for Anti-Infective: Empiric Therapy for Suspected Infection, Empiric Therapy Site: Pelvic, Duration of therapy: 72 hours Given 09/29/2018 5:46 AM CDT 100 mg Given 09/28/2018 7:43 PM CDT 100 mg doxycycline (Vibramycin) capsule 100 mg Given 10/05/2018 9:09 PM CDT 100 mg 100 mg, Oral, Q12HA2, First dose on Thu09/30/18 at 0600, Until Discontinued, NELL, Reason for Anti-Infective: Documented Infection, Documented Infection Site: Pelvic, Duration of Therapy: 7 days Given 10/05/2018 5:38 AM CDT 100 mg Given 10/04/2018 5:30 PM CDT 100 mg EPINEPHrine (EPIPEN AUTO-INJECTOR) Given 09/29/2018 6:26 PM CDT 0.3 mg Left Thigh 0.3 mg/0.3 mL injection 0.3 mg 0.3 mg (1 Syringe), Intramuscular, ONCE, 1 dose, Thu09/29/18 at 1930, Routine EPINEPHrine (EPIPEN AUTO-INJECTOR) Given 09/29/2018 6:26 PM CDT 0.3 mg Left Thigh 0.3 mg/0.3 mL injection 0.3 mg 0.3 mg (1 Syringe), Intramuscular, ONCE, 1 dose, Thu09/29/18 at 1930, Routine FENTanyl PF (SUBLIMAZE (PF)) injection Given 10/05/2018 5:18 PM CDT 50 mcg Slow IV Push, PRN, Starting Thu10/05/18 at 1650, Until Thu10/05/18 at 1718, Routine Given 10/05/2018 5:10 PM CDT 50 mcg Given 10/05/2018 4:56 PM CDT 50 mcg HYDROcodone-acetaminophen (NORCO 5) 5-325 Given 09/29/2018 7:33 PM CDT 1 tablet mg tablet 1 tablet 1 tablet, Oral, ONCE, 1 dose, Thu09/29/18 at 2000, Routine iohexol (OMNIPAQUE 300-100 mL) injection 100 Given 10/05/2018 5:08 PM CDT 100 mL mL 100 mL, Intravenous, ONCE, 1 dose, Thu10/05/18 at 1745, Routine iohexol (OMNIPAQUE 300-150 mL) injection 450 Given 10/01/2018 5:01 PM CDT 450 mL mL 450 mL, Rectal, ONCE, 1 dose, Thu10/01/18 at 1715, Routine iohexol (OMNIPAQUE 350 BULK-150 mL) Given 09/28/2018 1:40 PM CDT 120 mL injection 120 mL 120 mL, Intravenous, ONCE, 1 dose, Thu09/28/18 at 1400, Routine methylprednisolone sod succ (SOLU-MEDROL) Given 09/29/2018 7:33 PM CDT 125 mg injection 125 mg 125 mg, Slow IV Push, ONCE NOW, 1 dose, Thu09/29/18 at 2000, Routine metroNIDAZOLE (FLAGYL I.V.) Piggyback 500 mg Given 10/02/2018 4:43 AM CDT 500 mg 500 mg, IV Piggyback, Q8H ABX, First dose on Thu09/29/18 at 2000, Until Discontinued, 100 mL, Reason for Anti-Infective: Documented Infection, Documented Infection Site: Pelvic, Duration of Therapy: 7 days Given 10/01/2018 8:07 PM CDT 500 mg Given 10/01/2018 1:25 PM CDT 500 mg metroNIDAZOLE (FLAGYL) tablet 500 mg Given 09/29/2018 4:09 PM CDT 500 mg 500 mg, Oral, Q8H, First dose on Thu09/28/18 at 0930, Until Discontinued, Routine, Reason for Anti-Infective: Empiric Therapy for Suspected Infection, Empiric Therapy Site: Pelvic, Duration of therapy: 72 hours Given 09/29/2018 8:29 AM CDT 500 mg Given 09/29/2018 12:48 AM CDT 500 mg metroNIDAZOLE (FLAGYL) tablet 500 mg Given 10/05/2018 9:09 PM CDT 500 mg 500 mg, Oral, Q8H, First dose on Thu10/02/18 at 1400, Until Discontinued, Routine, Reason for Anti-Infective: Documented Infection, Documented Infection Site: Pelvic, Duration of Therapy: 14 days Given 10/05/2018 12:46 PM CDT 500 mg Given 10/05/2018 5:38 AM CDT 500 mg NaCl 0.9% (NS) IV infusion 1,000 New Bag 10/02/2018 9:32 AM CDT 1,000 mL 125 mL/hr mL at 125 mL/hr, IV Infusion, CONTINUOUS, Starting Thu09/29/18 at 2000, Until Thu10/03/18 at 1601, Routine New Bag 10/01/2018 1:25 PM CDT 1,000 mL 125 mL/hr New Bag 10/01/2018 1:35 AM CDT 1,000 mL 125 mL/hr piperacillin-tazobactam (ZOSYN) 3.375 Given 09/29/2018 5:45 PM CDT 3.375 g gram/50 mL Piggyback 3.375 g 3.375 g, IV Piggyback, Q6H ABX, First dose on Thu09/29/18 at 1730, Until Discontinued, 50 mL, Reason for Anti-Infective: Empiric Therapy for Suspected Infection, Empiric Therapy Site: Blood, Duration of therapy: 72 hours racEPINEPHrine (S2 RACEMIC) 2.25 % nebulizer Given 09/29/2018 6:34 PM CDT 0.5 mL solution 0.5 mL 0.5 mL, Inhalation, ONCE, 1 dose, Thu09/29/18 at 1945, Routine Sliding Scale Insulin - Aspart Given 09/30/2018 8:57 PM CDT 2 Units Abdomen-SC (NOVOLOG) + Fsbg Testing Subcutaneous, TID MEALS+HS, First dose on Thu09/28/18 at 0800, Until Discontinued, Routine Given 09/30/2018 5:21 PM CDT 2 Units Left Arm Given 09/30/2018 2:00 PM CDT 4 Units Abdomen-SC vancomycin (VANCOCIN) 1,500 mg in NaCl Given 10/01/2018 1:35 AM CDT 1,500 mg 0.9% (NS) 250 mL piggyback 1,500 mg (rounded from 1,666.5 mg=15 mg/kg 111.1 kg), IV Piggyback, Q12H ABX, First dose on Thu09/29/18 at 1900, Until Discontinued, 250 mL, Reason for Anti-Infective: Documented Infection, Documented Infection Site: Pelvic, Duration of Therapy: 7 days Given 09/30/2018 3:00 PM CDT 1,500 mg Given 09/30/2018 12:07 AM CDT 1,500 mg vancomycin (VANCOCIN) 1,500 mg in NaCl Given 10/03/2018 9:34 AM CDT 1,500 mg 0.9% (NS) 250 mL piggyback 1,500 mg (rounded from 1,666.5 mg=15 mg/kg 111.1 kg), IV Piggyback, Q8H ABX, First dose on Thu10/01/18 at 1500, Until Discontinued, 250 mL, Reason for Anti-Infective: Documented Infection, Documented Infection Site: Pelvic, Duration of Therapy: 7 days Given 10/02/2018 11:58 PM CDT 1,500 mg Given 10/02/2018 2:47 PM CDT 1,500 mg vancomycin (VANCOCIN) 1,750 mg in NaCl Given 10/05/2018 9:09 PM CDT 1,750 mg 0.9% (NS) 250 mL piggyback 1,750 mg (1.75 g), IV Piggyback, Q8H ABX, First dose on Thu10/03/18 at 1500, Until Discontinued, 250 mL, Reason for Anti-Infective: Documented Infection, Documented Infection Site: Pelvic, Duration of Therapy: 7 days Given 10/05/2018 12:55 PM CDT 1,750 mg Given 10/05/2018 3:21 AM CDT 1,750 mg documented in this encounter Insurance Payer Benefit Plan / Subscriber ID Effective Phone Address Type Group Dates MEDICAID MEDICAID PENDING 2018-[address] [place] [address] [phone] [id number] (Work) documented as of this encounter
--- OUTSIDE RECORDS SUMMARY | 2018-12-20 00:07 | XMS REPORT | Summary of Care ---
:1990 Author Organization [address] [address] Care Team Providers Name Role Phone Briana Shepherd RN Case Manager Radha Camargo Community Health Worker Kody Walter MD Primary Care Provider Reason for Referral Radiology Services (NELL) Status Reason Specialty Diagnoses / Referred By Referred To Procedures Contact Contact New Request Diagnostic Diagnoses Tubo-ovarian abscess Kris Chao Radiology Procedures IR ABSCESS L [address] [place] [id number] [place] [id number] Reason for Visit Reason Comments Follow-up Encounter Details Date Type Department Care Team Description 10/15/2018 Case Management [facility] Yanet Bey Follow -up and Clinics MD Vianney [address] [place] [address]. [place] [id number] Allergies Active Allergy Reactions Severity Noted Date Comments Piperacillin-Tazobactam Anaphylaxis 09/29/2018 documented as of this encounter (statuses as of 10/15/2018) Medications Medication Sig Dispensed Refills Start Date End Date Status insulin aspart RAPID inject 12 Units 1 [...] 0 09/29/2018 Active tabletIndications: mouth every 6 (six) Tubo-ovarian abscess hours as needed for Pain (scale 7-10). linezolid 600 mg Take 1 tablet by 28 tablet 0 10/06/2018 Active tabletIndications: mouth every 12 Tubo-ovarian abscess (twelve) hours. documented as of this encounter (statuses as of 10/15/2018) Active Problems Problem Noted Date Bacteremia due [...] as of this encounter (statuses as of 10/15/2018) Resolved Problems Problem Noted Date Resolved Date Bacteremia due to Streptococcus 10/02/2018 10/02/2018 documented as of this encounter (statuses as of 10/15/2018) Social History Tobacco Use Types Packs/Day Years [...] filedocumented in this encounter Plan of Treatment Name Type Priority Associated Diagnoses Order Schedule IR ABSCESS IMAGING NELL Tubo-ovarian abscess Expected: 10/15/2018, Expires: 11/13/2018 CBC WITH DIFFERENTIAL LAB Routine Tubo-ovarian abscess 1 Occurrences starting 10/15/2018 until 11/13/2018 BASIC METABOLIC PANEL LAB Routine Tubo-ovarian abscess 1 Occurrences starting (NA, K, CL, CO2, 10/15/2018 until GLUCOSE, BUN, 11/13/2018 CREATININE, CA) PROTHROMBIN TIME / INR LAB Routine Tubo-ovarian abscess 1 Occurrences starting 10/15/2018 until 11/13/2018 Health Maintenance Due Date Last Done Comments [...] history exists documented as of this encounter Results Not on filedocumented in this encounter Visit Diagnoses Diagnosis Tubo-ovarian abscess - Primary Salpingitis and oophoritis not specified as acute, subacute, or chronic documented in this encounter Insurance Payer Benefit Plan / Subscriber ID Effective Phone Address Type Group Dates MEDICAID MEDICAID PENDING 2018-[address] Pending PENDING [place] [address] documented as of this encounter
--- OUTSIDE RECORDS SUMMARY | 2018-12-20 00:07 | XMS REPORT | Summary of Care ---
:1990 Author Organization [facility] - Health Address [address] [place] [address] Care Team Providers Name Role Phone Briana Shepherd RN Case Manager Radha Camargo Community Health Worker Kody Walter MD Primary Care Provider Encounter Details Date Type Department Care Team Description 10/14/2018 Orders Only [facility] Doctor Unassigned, No 301 [facility] Name [address] [address] Allergies Active Allergy Reactions Severity Noted Date Comments Piperacillin-Tazobactam Anaphylaxis 09/29/2018 documented as of this encounter (statuses as of 10/14/2018) Medications Medication Sig Dispensed Refills Start Date [...] as of this encounter (statuses as of 10/14/2018) Active Problems Problem Noted Date Bacteremia due [...] as of this encounter (statuses as of 10/14/2018) Resolved Problems Problem Noted Date Resolved Date Bacteremia due to Streptococcus 10/02/2018 10/02/2018 documented as of this encounter (statuses as of 10/14/2018) Social History Tobacco Use Types Packs/Day Years [...] Procedure Name Priority Date/Time Associated Diagnosis Comments EXTERNAL PROVIDER Routine 10/14/2018 12:01 AM CDT RECORDS documented in this encounter Results Not on filedocumented in this encounter Insurance Payer Benefit Plan / Subscriber ID Effective Phone Address Type Group Dates MEDICAID MEDICAID PENDING 2018-[address] Pending PENDING PENDING [place] [phone] documented as of this encounter
--- OUTSIDE RECORDS SUMMARY | 2018-12-20 00:07 | XMS REPORT | Summary of Care ---
:1990 Author Organization [address] [address] Care Team Providers Name Role Phone Briana Shepherd production tech Radha Camargo Community Health Worker Kody Walter MD Primary Care Provider Reason for Visit Reason Comments Hospital F/U Encounter Details Date Type Department Care Team Description 10/08/2018 Patient Outreach [facility] Briana Shepherd, RN [facility] F/[address] [id number] Allergies Active Allergy Reactions Severity Noted Date Comments Piperacillin-Tazobactam Anaphylaxis 09/29/2018 documented as of this encounter (statuses as of 10/08/2018) Medications Medication Sig Dispensed Refills Start Date [...] as of this encounter (statuses as of 10/08/2018) Active Problems Problem Noted Date Bacteremia due [...] as of this encounter (statuses as of 10/08/2018) Resolved Problems Problem Noted Date Resolved Date Bacteremia due to Streptococcus 10/02/2018 10/02/2018 documented as of this encounter (statuses as of 10/08/2018) Social History Tobacco Use Types Packs/Day Years [...] encounter Progress Notes Briana Shepherd RN - 10/08/2018 3:59 PM CDTCHP CM f/u with the patient; she reports she has two drains in place. She denies any fever. She stated she is doing ok. CM will f/u with the patient next week. No future f/u appts have been posted in yeppt. TIFFANIE Lugo, RN, [facility] Outpatient Auto Painter HelperEchocardiography Radiology TechnologistFormerly [facility] O: [phone] M: [phone] documented in this encounter Plan of Treatment [...] Address Type Group Dates MEDICAID MEDICAID PENDING 2018-[address] Pending [place] [address] documented as of this encounter
--- OUTSIDE RECORDS SUMMARY | 2018-12-20 00:08 | XMS REPORT | Summary of Care ---
:1990 Author Organization [facility] - Health Address [address] [place] [address] Care Team Providers Name Role Phone Briana Shepherd RN Case Manager Radha Camargo Community Health Worker Kody Walter MD Primary Care Provider Encounter Details Date Type Department Care Team Description 10/21/2018 Orders Only [facility] Doctor Unassigned, No 301 [facility] Name [address] [address] Allergies Active Allergy Reactions Severity Noted Date Comments Piperacillin-Tazobactam Anaphylaxis 09/29/2018 documented as of this encounter (statuses as of 10/28/2018) Medications Medication Sig Dispensed Refills Start Date [...] as of this encounter (statuses as of 10/28/2018) Active Problems Problem Noted Date Bacteremia due [...] as of this encounter (statuses as of 10/28/2018) Resolved Problems Problem Noted Date Resolved Date Bacteremia due to Streptococcus 10/02/2018 10/02/2018 documented as of this encounter (statuses as of 10/28/2018) Social History Tobacco Use Types Packs/Day Years [...] Procedure Name Priority Date/Time Associated Diagnosis Comments AUTHORIZATION FOR RELEASE Routine 10/21/2018 12:01 AM OF PHI CDT documented in this encounter Results Not on filedocumented in this encounter Insurance Payer Benefit Plan / Subscriber ID Effective Phone Address Type Group Dates MEDICAID MEDICAID PENDING 2018-[address] Pending PENDING PENDING ent [place] [phone] documented as of this encounter
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
--- OUTSIDE RECORDS SUMMARY | 2018-12-20 00:08 | XMS REPORT | Summary of Care ---
:1990 Author Organization [facility] Address [address] [place] [id number] Care Team Providers Name Role Phone Briana Shepherd RN Case Manager Radha [facility] Worker Kody Walter MD Primary Care Provider Reason for Referral Radiology Services (NELL) Status Reason Specialty Diagnoses / Referred By Referred To Procedures Contact Contact Closed Diagnostic Diagnoses Tubo-ovarian abscess [place], Radiology Procedures IR ABSCESSOGRAM (TUBE CHECK) IR TIERRA Faith MD [address] [place] [phone] Radiology Services (NELL) Status Reason Specialty Diagnoses / Referred By Referred To Procedures Contact Contact Closed Diagnostic Diagnoses Tubo-ovarian abscess [place], Radiology Procedures IR ABSCESSOGRAM (TUBE CHECK) IR TIERRA Faith MD [address] [place] [phone] Reason for Visit Radiology Services (NELL) Status Reason Specialty Diagnoses / Referred By Referred To Procedures Contact Contact Closed Diagnostic Diagnoses Tubo-ovarian abscess [place], Radiology Procedures IR ABSCESSOGRAM (TUBE CHECK) IR TIERRA Faith MD [address] [place] [phone] Encounter Details Date Type Department Care Team Description 10/18/2018 Hospital Encounter [facility] Kris Chao Arrived [facility] [address] Radiology [id number] [place] [id number] [phone] Allergies Active Allergy Reactions Severity Noted Date Comments Piperacillin-Tazobactam Anaphylaxis 09/29/2018 documented as of this encounter (statuses as of 10/19/2018) Medications Medication Sig Dispensed Refills Start Date [...] as of this encounter (statuses as of 10/19/2018) Active Problems Problem Noted Date Bacteremia due [...] as of this encounter (statuses as of 10/19/2018) Resolved Problems Problem Noted Date Resolved Date Bacteremia due to Streptococcus 10/02/2018 10/02/2018 documented as of this encounter (statuses as of 10/19/2018) Social History Tobacco Use Types Packs/Day Years [...] Procedure Name Priority Date/Time Associated Comments Diagnosis IR ABSCESSOGRAM (TUBE NELL 10/18/2018 12:15 Tubo-ovarian Results for this CHECK) PM CDT abscess procedure are in the results section. documented in this encounter Results IR ABSCESSOGRAM (TUBE CHECK) (10/18/2018 12:15 PM CDT) Specimen Impressions Performed At PACS/VR/DOSE Successful removal bilateral tubo-ovarian abscess drainage catheters. The cavities have markedly decreased in size, as described. Narrative Performed At * * * * * * * * ORIGINAL REPORT * * * * * * * * PACS/VR/DOSE EXAMINATION: BILATERAL PELVIC DRAINAGE CATHETER EVALUATION (ABSCESSOGRAM X 2) HISTORY: History of tubo-ovarian abscess with bilateral percutaneous pelvic drainage catheter is located within the ovarian collections. ATTENDING PRESENCE:As the attending radiologist, I performed the entire procedure. RADIATION DOSE: 9.6 mGy. TECHNIQUE: The risks, benefits and alternatives were discussed and informed consent was obtained. Prior to beginning the procedure, [place] Protocol was used to confirm the patient's identity and planned procedure. Maximum sterile barriers including cap, mask, hand hygiene, sterile gloves, sterile gown, large sterile drape and cutaneous antisepsis were used. A lead software developer image was obtained. The 2 separate pre-existing 10 [place] percutaneous drainage catheters located in the bilateral lower quadrants were injected with dilute contrast and diagnostic fluoroscopic images were saved. The drains were then removed and sterile dressing was placed. ESTIMATED BLOOD LOSS: None. DISCHARGED TO: Recovery and then discharged to home. CONDITION: Stable. FINDINGS: There has been only minimal output from each drainage catheter. The right tubo-ovarian abscess drainage catheter showed no residual cavity. The left tubo-ovarian abscess drainage catheter is mildly retracted with only a small residual cavity. The cavities in both ovaries have markedly decreased in size compared to study from initial placement on October 05, 2018. Procedure Note [facility], Radiant Results Inft User - 10/18/2018 1:02 PM CDT * * * * * * * * ORIGINAL REPORT * * * * * * * * EXAMINATION: BILATERAL PELVIC DRAINAGE CATHETER EVALUATION (ABSCESSOGRAM X 2) HISTORY: History of tubo-ovarian abscess with bilateral percutaneous pelvic drainage catheter is located within the ovarian collections. ATTENDING PRESENCE: As the attending radiologist, I performed the entire procedure. RADIATION DOSE: 9.6 mGy. TECHNIQUE: The risks, benefits and alternatives were discussed and informed consent was obtained. Prior to beginning the procedure, [place] Protocol was used to confirm the patient's identity and planned procedure. Maximum sterile barriers including cap, mask, hand hygiene, sterile gloves, sterile gown, large sterile drape and cutaneous antisepsis were used. A lead software developer image was obtained. The 2 separate pre-existing 10 [place] percutaneous drainage catheters located in the bilateral lower quadrants were injected with dilute contrast and diagnostic fluoroscopic images were saved. The drains were then removed and sterile dressing was placed. ESTIMATED BLOOD LOSS: None. DISCHARGED TO: Recovery and then discharged to home. CONDITION: Stable. FINDINGS: There has been only minimal output from each drainage catheter. The right tubo-ovarian abscess drainage catheter showed no residual cavity. The left tubo-ovarian abscess drainage catheter is mildly retracted with only a small residual cavity. The cavities in both ovaries have markedly decreased in size compared to study from initial placement on October 05, 2018. IMPRESSION Successful removal bilateral tubo-ovarian abscess drainage catheters. The cavities have markedly decreased in size, as described. Performing Organization Address City/State/Zipcode Phone Number PACS/VR/DOSE documented in this encounter Visit Diagnoses Diagnosis Tubo-ovarian abscess Salpingitis and oophoritis not specified as acute, subacute, or chronic documented in this encounter Insurance Payer Benefit Plan / Subscriber ID Effective Phone Address Type Group Dates MEDICAID MEDICAID PENDING [id number] [place] [address] (Home) [place], [place] [phone] (Work) documented as of this encounter
== END 2018-12-15 00:10 ==
LOC: ER 16:15
DX: N70.92 Oophoritis, unspecified (principal); K52.9 Noninfective gastroenteritis and colitis, unspecified; E11.9 Type 2 diabetes mellitus without complications; Z79.4 Long term (current) use of insulin; Z88.8 Allergy status to other drugs, medicaments and biological substances
CPT/HCPCS: 36415; 74177; 80048; 80076; 81003; 81015; 81025; 82947; 83690; 85025; 87086; 87088; 96361; 96365; 96366; 96368; 96375; 99285; J2405; J7030; Q9967

== ENCOUNTER 2019-02-19 18:40 | Inpatient (IN) | payer SELFPAY ==
--- OUTSIDE RECORDS SUMMARY | 2019-02-19 18:43 | XMS REPORT ---
[...] Medications Results No Known Results Summary Purpose [facility] Submission
--- OUTSIDE RECORDS SUMMARY | 2019-02-19 18:43 | XMS REPORT ---
[...] May one Thin once 2017 Lisinopril ND 07166383432 20 MG Orally Active 1 tablet Once a day Loryna ND 61227096912 3-0.02 MG Orally Active 1 tablet Once a day Glucometer NDC 0 n/s n/s use as May Active one directed 2017 Alcohol Prep NDC 0 topical twice May Active as directed Pads daily 2017 Metformin HCl NDC 34748935378 500 MG Orally Active 1 tablet Twice a day with meals blood glucose NDC 0 n/s finger stick May Active one test strip once a day 2017 Results No Known Results Summary Purpose [employer] Submission
--- OUTSIDE RECORDS SUMMARY | 2019-02-19 18:45 | XMS REPORT ---
:1990 [facility] [address] [place] [address] Care Team Providers Name Role Phone Unavailable [...] Text Results Atomic Results Result Comments GLUBED 2018-12-24 06:40:00 Test Item Value Reference Range Comments GLUBED (test code=GLUBED) 92 mg/dL 65-110 [id number] 23:29:00 Test Item Value Reference Range Comments GLUBED (test code=GLUBED) 98 mg/dL 65-110 [id number] 06:39:00 Test Item Value Reference Range Comments GLUBED (test code=GLUBED) 94 mg/dL 65-110 [id number] 22:51:00 Test Item Value Reference Range Comments GLUBED (test code=GLUBED) 112 mg/dL 65-110 [id number] 19:02:00 Test Item Value Reference Range Comments GLUBED (test code=GLUBED) 76 mg/dL 65-110 [id number] 13:24:00 Test Item Value Reference Range Comments GLUBED (test code=GLUBED) 80 mg/dL 65-110 [id number] 07:43:00 Test Item Value Reference Range Comments GLUBED (test code=GLUBED) 86 mg/dL 65-110 [id number] 21:39:00 Test Item Value Reference Range Comments GLUBED (test code=GLUBED) 111 mg/dL 65-110 [id number] 18:57:00 Test Item Value Reference Range Comments GLUBED (test code=GLUBED) 103 mg/dL 65-110 CHEMISTRY 7 [id number] 13:47:00 Test Item Value Reference Range Comments SODIUM (test code=NA) 139 mEq/L 135-145 POTASSIUM (test code=K) 3.6 mEq/L 3.5-5.0 CHLORIDE (test code=CL) 103 mEq/L 100-115 CARBON DIOXIDE (test code=CO2) 29 mEq/L 22-31 ANION GAP (test code=GAP) 10.30 10-20 GLUCOSE (test code=GLU) 91 mg/dL 65-110 BLOOD UREA NITROGEN (test code=BUN) 2 mg/dL 7-18 GLOMERULAR FILTRATION RATE (test code=GFR) 98 ml/min >60 CREATININE (test code=CREAT) 0.7 mg/dL 0.5-1.0 CALCIUM (test code=CA) 8.5 mg/dL 8.4-10.2 CBC W/AUTO [id number] 13:29:00 Test Item Value Reference Range Comments WHITE BLOOD CELL (test code=WBC) 9.2 K/mm3 6.6-12.1 RED BLOOD CELL (test code=RBC) 3.63 M/mm3 3.45-5.01 HEMOGLOBIN (test code=HGB) 9.8 g/dL 10.7-13.9 HEMATOCRIT (test code=HCT) 31.0 % 32.1-42.1 MEAN CELL VOLUME (test code=MCV) 85 fL 84.1-94.8 MEAN CELL HGB (test code=MCH) 27.0 pg 27-35 MEAN CELL HGB CONCETRATION (test code=MCHC) 31.6 gm/dL 32.2-34.1 RED CELL DISTRIBUTION WIDTH (test code=RDW) 14.8 % 12.4-16.5 PLATELET COUNT (test code=PLT) 333 K/mm3 133-385 IMMATURE PLATELET FRACTION (test code=IPF) 0.0 % 0.0-10.8 MEAN PLATELET VOLUME (test code=MPV) 10.4 fl 9.1-12.7 NEUTROPHIL % (test code=NT%) 70.7 % 56.5-79.4 LYMPHOCYTE % (test code=LY%) 18.9 % 14.3-34.3 MONOCYTE % (test code=MO%) 7.9 % 5.1-10.4 EOSINOPHIL % (test code=EO%) 1.8 % 0.1-3.0 BASOPHIL % (test code=BA%) 0.3 % 0.1-1.0 NEUTROPHIL # (test code=NT#) 6.5 K/mm3 LYMPHOCYTE # (test code=LY#) 1.7 K/mm3 MONOCYTE # (test code=MO#) 0.7 K/mm3 EOSINOPHIL # (test code=EO#) 0.17 K/mm3 BASOPHIL # (test code=BA#) 0.0 K/mm3 RBC MORPHOLOGY REQUIRED (test code=RBCM) NORMAL NORMAL PLATELET MORPHOLOGY REQUIRED (test code=PLTMR) NORMAL NORMAL SOFT TISSUE,NOT DANNIE/MASS/[id number] 13:23:00 RUN DATE: 12/21/18 [facility] PAGE 1 RUN TIME: 1410 Specimen Inquiry RUN USER: INTERFACE PATIENT: DONNASOHAIL [facility] U #: [id number] AGE/SX: 28/F ROOM: [facility] RE07/28REG DR: Arpan Min MD : [birth year] BED: A DIS: STATUS: ADM IN TLOC: SPEC #: [id number] RECD: 12/20/18 STATUS: OLEGARIO WHITESIDE #: [id number] ARELIS: 12/17/18- SUBM DR: Arpan Min MD ENTERED: 12/20/18 SP TYPE: SOFTNOTMLD OTHR DR: Jesús Lord MD, Jill C MD Nasser, Dean A MDORDERED: LEVEL IV CODES: [id number] - SOFT TISSUES , N COPIES TO: Jesús Lord MD [address] [facility] [address] [place] [address] Lianet Weir MD [address] [facility] [address] [place], [place] [id number] [email or web address] Kristofer Gó[place] [address] [place], [place] [id number] Arpan Min MD [address] [facility] [address] [place], [place] [id number] [phone] PROCEDURES: LEVEL IV (Incomplete) TISSUES: SOFT TISSUES, NOS - EPIPLOACA WITH ABSCESS/SIGMOID/UTERUS,CERVIX,TUBES AND OVARIES CLINICAL HISTORY 28 year old, tubo-ovarian abscess (kr) CONTINUED ON NEXT PAGE RUN DATE: 12/21/18 [facility] PAGE 2 RUN TIME: 1410 Specimen Inquiry RUN USER: INTERFACE-- SPEC #: [id number] PATIENT: SOHAIL THOMPSON # [id number] (Continued) FINAL DIAGNOSIS Epiploica with abscess, excision: - fibroadipose tissue with acute, subacute and chronic inflammation with foreign body giant cell reaction Sigmoid, resection: - diverticular disease - acute and chronic serositis with fibrous adhesions Uterus, bilateral fallopian tubes and ovaries, hysterectomy and bilateral salpingo-oophorectomy: - cervix - mild to moderate acute and chronic inflammation and parakeratosis - no dysplasia identified - endometrium - benign, proliferative phase - myometrium - no significant pathologic alteration - uterine serosa - acute, subacute and chronic inflammation - fibrous adhesions - bilateral fallopian tubes and ovaries- tubo-ovarian abscesses with severe transmural acute and chronic salpingitis, pyosalpinx, tuboovarian adhesions, and ovarian serosal abscesses CPT code(s): 56536 x2, 34431 [facility] 12/21/18 GROSS DESCRIPTION ANATOMIC SOURCE OF TISSUE (per Requisition): 1. Epiploica with abscess 2. Sigmoid 3. Uterus, cervix, bilateral fallopian tubes and ovaries Each specimen is labeled with the patient's name and medical record number. Specimen #1 is designated "epiploica with abscess" and consists of a 2.5 x 1.5 x 1.0 cm pink-yellow, lobulated portion of adipose tissue with overlying exudate. The cut surfaces are pale yellow and firm with focal areas of hemorrhage. There is no definite necrosis. Entirely submitted as A1. Specimen #2 is designated "sigmoid" and consists of a 24 cm in length and 4.5 cm in circumference, slightly tortuous discontinuous segment of large bowel with attached pericolonic adipose tissue. Also received in the same container are two unremarkable ring-shaped segments of bowel, 1.8 and 2.2 cm. The serosa is pink-purple and hyperemic with multiple adhesions. The lumen is strictured and contains ariza-brown, soft fecal material. The mucosa is ariza, focally hemorrhagic and slightly edematous with a few diverticula, 0.3 to 0.6 cm. The muscularis propria and ariza, firm, and thickened. There are no perforation sites or definite abscesses. However, within the pericolonic adipose tissue there are focal CONTINUED ON NEXT PAGE RUN DATE: 12/21/18 [facility] PAGE 3 RUN TIME: 1410 Specimen Inquiry RUN USER: INTERFACE SPEC #: [id number] PATIENT: SOHAIL THOMPSON #[id number] (Continued) GROSS DESCRIPTION (Continued) areas of induration, fibrosis and possible fat necrosis. Section code: B1 - donuts, B2 through B6 - business services representative sections of bowel with possible diverticular disease, B7 - pericolonic adipose tissue. Specimen #3 is designated "uterus, cervix, bilateral fallopian tubes and ovaries" and consists of a 115 gm, 13.- x 7.5 x 4.5 cm slightly fragmented uterus with a partially attached cervix, fimbriated fallopian tubes (7.5 and 11.0 cm in length) and ovaries (6.0 x 4.5 x 4.5 cm and 8.5 x 7.5 x 6.0 cm). The uterine serosa is ariza-red, cauterized, and nodular, with multiple adhesions. The 3 cm ectocervix displays a central 1 cm slit-like os. The endometrium is dark redand hemorrhagic, with a thickness measuring up to 0.2 cm. The myometrium is trabeculated with a wall thickness measuring up to 2.2 cm. There are no nodules. The outer surfaces of the adnexaare pink-purple, hyperemic, and nodular with multiple adhesions. The larger ovary displays a 5.5 cm abscess, which involves the outer surface of the ovary and fallopian tube. The remainder of theovarian stroma is ariza, soft, slightly edematous, and nodular, with multiple clear, serous, and slightly viscous cysts, 0.3 to 2.5 cm. There are no identifiable excrescences. Section code: C1 - cervix, C2 - anterior endometrium, C3 - posterior endomyometrium, C4 - serosal adhesions, C5 and C6 - business services representative sections of small adnexa, C7 through C9 - business services representative sections of large adnexa. shreya/jorge 12/20/18 @ 1125 Signed ____ Diana James MD 12/21/18 1323 END OF REPORT [id number] 13:17:00 Test Item Value Reference Range Comments GLUBED (test code=GLUBED) 89 mg/dL 65-110 - XR ABDOMEN [id number] 10:26:00 Patient Name: SOHAIL THOMPSON Unit No: [id number] EXAMS: CPT CODE: [id number] XR ABDOMEN 2V 80587 ABDOMINAL RADIOGRAPHS-ERECT AND SUPINE COMPARISON: CT abdomen dated December 16, 2018 CLINICAL HISTORY: Intra-abdominal abscess No free intraperitoneal air is seen beneath thehemidiaphragms. Abdominal gas pattern is nonspecific with mild gaseous distention of bowel loops. There are a few air-fluid levels on the upright radiograph. No abnormal calcifications identified overlying the kidneys. Incidental note is made of mild groundglass opacities in the visualized portions of the lungs which may represent mild vascular congestion. IMPRESSION: Nonspecific bowel gas pattern. at 1026 Reported and signed by: Hamilton García MD CC: Lianet Weir Technologist: RT Dom Trnscrbd D/ (1026 ) t.YONISR.[email or web address] Orig Print D/T: S: 12/21/2018 (1022) [facility] NAME: SOHAIL THOMPSON Radiology Department PHYS: Arpan Wallace MD [address] : 1990 AGE: 28 SEX: F [place], [place] [address] LOC: [phone] A PHONE #: EXAM DATE: 12/21/2018 STATUS: ADM INFAX #: [phone] RAD NO: Page 1 Signed [id number] 06:40:00 Test Item Value Reference Range Comments GLUBED (test code=GLUBED) 117 mg/dL 65-110 [id number] 00:48:00 Test Item Value Reference Range Comments GLUBED (test code=GLUBED) 153 mg/dL 65-110 [id number] 18:32:00 Test Item Value Reference Range Comments GLUBED (test code=GLUBED) 83 mg/dL 65-110 [id number] 12:58:00 Test Item Value Reference Range Comments GLUBED (test code=GLUBED) 153 mg/dL 65-110 CHEMISTRY 7 [id number] 05:45:00 Test Item Value Reference Range Comments SODIUM (test code=NA) 139 mEq/L 135-145 POTASSIUM (test code=K) 3.2 mEq/L 3.5-5.0 CHLORIDE (test code=CL) 105 mEq/L 100-115 CARBON DIOXIDE (test code=CO2) 27 mEq/L 22-31 ANION GAP (test code=GAP) 10.40 10-20 GLUCOSE (test code=GLU) 136 mg/dL 65-110 BLOOD UREA NITROGEN (test code=BUN) 3 mg/dL 7-18 GLOMERULAR FILTRATION RATE (test code=GFR) 98 ml/min >60 CREATININE (test code=CREAT) 0.7 mg/dL 0.5-1.0 CALCIUM (test code=CA) 8.1 mg/dL 8.4-10.2 CBC W/AUTO [id number] 05:30:00 Test Item Value Reference Range Comments WHITE BLOOD CELL (test code=WBC) 9.7 K/mm3 6.6-12.1 RED BLOOD CELL (test code=RBC) 3.58 M/mm3 3.45-5.01 HEMOGLOBIN (test code=HGB) 9.6 g/dL 10.7-13.9 HEMATOCRIT (test code=HCT) 30.6 % 32.1-42.1 MEAN CELL VOLUME (test code=MCV) 86 fL 84.1-94.8 MEAN CELL HGB (test code=MCH) 26.8 pg 27-35 MEAN CELL HGB CONCETRATION (test code=MCHC) 31.4 gm/dL 32.2-34.1 RED CELL DISTRIBUTION WIDTH (test code=RDW) 14.8 % 12.4-16.5 PLATELET COUNT (test code=PLT) 274 K/mm3 133-385 IMMATURE PLATELET FRACTION (test code=IPF) 0.0 % 0.0-10.8 MEAN PLATELET VOLUME (test code=MPV) 10.3 fl 9.1-12.7 NEUTROPHIL % (test code=NT%) 71.3 % 56.5-79.4 LYMPHOCYTE % (test code=LY%) 16.8 % 14.3-34.3 MONOCYTE % (test code=MO%) 8.8 % 5.1-10.4 EOSINOPHIL % (test code=EO%) 2.1 % 0.1-3.0 BASOPHIL % (test code=BA%) 0.5 % 0.1-1.0 NEUTROPHIL # (test code=NT#) 6.9 K/mm3 LYMPHOCYTE # (test code=LY#) 1.6 K/mm3 MONOCYTE # (test code=MO#) 0.9 K/mm3 EOSINOPHIL # (test code=EO#) 0.20 K/mm3 BASOPHIL # (test code=BA#) 0.1 K/mm3 RBC MORPHOLOGY REQUIRED (test code=RBCM) NORMAL NORMAL PLATELET MORPHOLOGY REQUIRED (test code=PLTMR) NORMAL NORMAL [id number] 00:18:00 Test Item Value Reference Range Comments GLUBED (test code=GLUBED) 107 mg/dL 65-110 [id number] 18:27:00 Test Item Value Reference Range Comments GLUBED (test code=GLUBED) 144 mg/dL 65-110 [id number] 12:13:00 Test Item Value Reference Range Comments GLUBED (test code=GLUBED) 126 mg/dL 65-110 [id number] 08:47:00 Test Item Value Reference Range Comments MAGNESIUM (test code=MAG) 1.8 mg/dL 1.8-2.4 Comments to Wastewater Treatment Operator: DO ON BLOOD IN LAB-- DRAWN THIS AMSpecimen Comment: BLOOD IN LAB.CHEMISTRY 7 [id number] 05:19:00 Test Item Value Reference Range Comments [...] (test code=CA) 7.5 mg/dL 8.4-10.2 CBC W/AUTO [id number] 05:06:00 Test Item Value Reference Range Comments [...] PLATELET MORPHOLOGY REQUIRED (test code=PLTMR) NORMAL NORMAL [id number] 00:47:00 Test Item Value Reference Range Comments GLUBED (test code=GLUBED) 159 mg/dL 65-110 [id number] 21:14:00 Test Item Value Reference Range Comments C-PEPTIDE (test code=CPEP) 2.9 ng/mL 1.1-4.4 C-Peptide reference interval is for fasting patients.Performed At: [facility] [address] [id number] Rosa MD Ph:[phone] [id number] 21:14:00 Test Item Value Reference Range Comments INSULIN (test code=INS) 22.1 uIU/mL 2.6-24.9 Performed At: [facility] [address] [id number] Rosa MD Ph:[phone] [id number] 18:25:00 Test Item Value Reference Range Comments GLUBED (test code=GLUBED) 134 mg/dL 65-110 [id number] 12:38:00 Test Item Value Reference Range Comments GLUBED (test code=GLUBED) 137 mg/dL 65-110 COMPREHENSIVE METABOLIC [id number] 05:57:00 Test Item Value Reference Range Comments [...] PHOSPHATASE TOTAL (test code=ALKP) 69 units/L 46-116 [id number] 05:57:00 Test Item Value Reference Range Comments MAGNESIUM (test code=MAG) 1.0 mg/dL 1.8-2.4 RESULTS CALLED TO ZAC MENDOZA.READ BACK & CONFIRMED? Y.BY YUE 12/18/18 0557. RESULTS VERIFIED BY REPEAT ANALYSIS CBC W/AUTO [id number] 05:13:00 Test Item Value Reference Range Comments [...] PLATELET MORPHOLOGY REQUIRED NORMAL NORMAL (test code=PLTMR) [id number] 00:21:00 Test Item Value Reference Range Comments GLUBED (test code=GLUBED) 280 mg/dL 65-110 CHEMISTRY 7 [id number] 23:10:00 Test Item Value Reference Range Comments [...] (test code=CA) 7.1 mg/dL 8.4-10.2 CBC W/AUTO [id number] 18:05:00 Test Item Value Reference Range Comments WHITE BLOOD CELL (test 28.6 K/mm3 6.6-12.1 RESULTS VERIFIED BY REPEAT code=WBC) ANALYSISRESULTS CALLED TO KRISHNA .READ BACK & CONFIRMED? Y.BY FIzaLAB.RV 12/17/18 6457. RED BLOOD CELL (test 5.23 M/mm3 3.45-5.01 [...] MORPHOLOGY REQUIRED NORMAL NORMAL (test code=PLTMR) WBC [id number] 18:05:00 Test Item Value Reference Range Comments TOTAL CELLS COUNTED (test code=TCC) 100 #CELLS SEGMENTED NEUTROPHILS (test code=SEG) 88 % 56.5-79.4 BAND NEUTROPHIL (test code=BAND) 4 % 0-5 LYMPHOCYTE (test code=LYMPH) 6 % 20-40 MONOCYTE (test code=MON) 2 % 0-8 PLATELET ESTIMATE (test code=PLTEST) ADEQUATE ADEQ PLATELET MORPHOLOGY (test code=PLTMORPH) NORMAL NORMAL CHEMISTRY 7 [id number] 17:48:00 Test Item Value Reference Range Comments [...] (test code=CA) 7.5 mg/dL 8.4-10.2 CBC W/AUTO [id number] 17:32:00 Test Item Value Reference Range Comments [...] PLATELET MORPHOLOGY REQUIRED NORMAL (test code=PLTMR) WBC [id number] 17:32:00 Test Item Value Reference Range Comments SEGMENTED NEUTROPHILS (test code=SEG) % 56.5-79.4 LYMPHOCYTE (test code=LYMPH) % 20-40 CBC W/AUTO [id number] 17:32:00 Test Item Value Reference Range Comments [...] PLATELET MORPHOLOGY REQUIRED NORMAL (test code=PLTMR) WBC [id number] 17:32:00 Test Item Value Reference Range Comments SEGMENTED NEUTROPHILS (test code=SEG) % 56.5-79.4 LYMPHOCYTE (test code=LYMPH) % 20-40 [id number] 14:59:00 Test Item Value Reference Range Comments GLUBED (test code=GLUBED) 288 mg/dL 65-110 [id number] 06:04:00 Test Item Value Reference Range Comments GLUBED (test code=GLUBED) 201 mg/dL 65-110 URINALYSIS [id number] 03:54:00 Test Item Value Reference Range Comments [...] SAMPLE: CLEAN CATCHComment URINE WITH CULTUREUR HCG [id number] 03:54: 00 Test Item Value Reference Range Comments UR HCG QUAL (test NEGATIVE 1. Very dilute urine specimens, as code=HCGQLU) indicated by a lowspecific gravity, may not contain business services representative levels ofhCG. 2. False negative results may occur when the levels of hCGare below the sensitivity level of the test. If is still suspected, a first morningurine specimen should be collected 48 hours later andtested. URINE SAMPLE: CLEAN CATCHComment URINE WITH CULTUREURINALYSIS [id number] 03:38:00 Test Item Value Reference Range [...] SAMPLE: CLEAN CATCHComment URINE WITH CULTUREUR HCG [id number] 03:38: 00 Test Item Value Reference Range Comments UR HCG QUAL (test NEGATIVE 1. Very dilute urine specimens, as code=HCGQLU) indicated by a lowspecific gravity, may not contain business services representative levels ofhCG. 2. False negative results may occur when the levels of hCGare below the sensitivity level of the test. If is still suspected, a first morningurine specimen should be collected 48 hours later andtested. URINE SAMPLE: CLEAN CATCHComment URINE WITH [id number] 22:09:00 Test Item Value Reference Range Comments GLUBED (test code=GLUBED) 263 mg/dL 65-110 Phsician Notified [id number] 17:08:00 Test Item Value Reference Range Comments GLUBED (test code=GLUBED) 286 mg/dL 65-110 [id number] 15:28:00 Test Item Value Reference Range Comments CREATININE (test code=CREAT) 0.9 mg/dL 0.5-1.0 IS THIS A ONCE DAILY SINGLE DOSE? YESDATE OF LAST DOSE: 12/16/18TIME OF LAST DOSE: [id number] 15:28:00 Test Item Value Reference Range Comments GENTAMICIN (test code=GENT) 0.8 mcg/mL 0-14 Adult normal range for once daily dose of Gentamicin may beup to 24 mcg/mL. Gentamicin results must be correlated withthe time the dose was administered. IS THIS A ONCE DAILY SINGLE DOSE? YESDATE OF LAST DOSE: 12/16/18TIME OF LAST DOSE: [id number] 13:24:00 Test Item Value Reference Range Comments GLUBED (test code=GLUBED) 274 mg/dL 65-110 HCG [id number] 12:13:00 Test Item Value Reference Range Comments [...] THE ROOM AT THIS TIME. PHLEB/RBCHEMISTRY 7 [id number] 12:11: 00 Test Item Value Reference Range [...] IN THE ROOM AT THIS TIME. @ 53749HQ TRY 1018 AM. PHLEB/RBCBC W/AUTO [id number] 11:40:00 Test Item Value Reference Range Comments [...] NORMAL COME BACK LATER- CT ABD PELVIS [id number] 11:01:00 Patient Name: SOHAIL THOMPSON Unit No: [id number] EXAMS: CPT CODE: [id number] CT ABD PELVIS W/CONT 98557 Exam: CT scan of the abdomen and [...] wall demonstrates no significant abnormalities. IMPRESSION: [facility] NAME: JOSE ALEJANDRO THOMPSONINA Radiology Department PHYS: Arpan Wallace MD [address] : 1990 AGE : 28 SEX: F [place] [address] LOC : F.4672 A PHONE #: [phone] EXAM DATE: 12/16/2018 STATUS : ADM IN FAX #: [phone] RAD NO: Page 1 Signed Report 1 Patient Name: SOHAIL THOMPSON Unit No: [id number] EXAMS: CPT CODE: [id number] CT ABD PELVIS W/CONT 47185 <Continued> Bilateral adnexal masses as described above. The patient gives a history of abscess drainage at [facility] October 05, 2018. She describes having drains and drainage bags on either side. The findings in the adnexal region may be sequela of this procedure. Prior images have been requested. at 1101 Reported and signed by: Charissa Arreola MD CC: Lianet Weir Technologist: Sarthak Coleman, RT, CT CTDI: 21.83 DLP: 1880.60 Trnscrbd D/ (1101) t.SDR.[facility] NAME: DONNASOHAIL Radiology Department PHYS: Arpan Wallace MD [address] : 1990 AGE: 28 SEX: F [place] [address] LOC: F.4672 A PHONE #: [phone] EXAM DATE: 12/16/2018 STATUS: ADM IN FAX #:[phone] RAD NO: Page 2 Signed Report 1 Patient Name: SOHAIL THOMPSON Unit No: [id number] EXAMS : CPT CODE: [id number] CT ABD PELVIS W/CONT 24523 <Continued> Orig Print D/T: S: 12/16/2018 (1104) [facility] NAME: SOHAIL THOMPSON Radiology Department PHYS: Arpan Wallace MD[address] : 1990 AGE: 28 SEX: F [place], [place] [address] LOC: Senia4672 A PHONE #: [phone] EXAM DATE: 12/16/2018 STATUS: ADM IN FAX #: [phone] RAD NO: Page 3 Signed Report [id number] 07:07:00 Test Item Value Reference Range Comments GLUBED (test code=GLUBED) 241 mg/dL 65-110 CREATINE KINASE (CK)2018-12-15 19:52:00 Test Item Value Reference Range Comments CREATINE KINASE (CK) (test code=CK) 60 Units/L 26-192 [id number] 16:55:00 Test Item Value Reference Range Comments GLUBED (test code=GLUBED) 339 mg/dL 65-110 Phsician Notified GLYCOSYLATED HEMOGLOBIN [id number] 11:01:00 Test Item Value Reference Range Comments [...] (test 217 MG/DL 70-110 code=MBG) COMPREHENSIVE METABOLIC [id number] 11:01:00 Test Item Value Reference Range Comments [...] TOTAL (test code=ALKP) 103 units/L 46-116 T4 [id number] 11:01:00 Test Item Value Reference Range Comments T4 FREE (test code=T4F) 1.24 ng/dL 0.76-1.46 THYROID STIMULATING [id number] 11:01:00 Test Item Value Reference Range Comments [...] as fructosamineshould be considered for these patients. [id number] 10:19:00 Test Item Value Reference Range Comments GLUBED (test code=GLUBED) 290 mg/dL 65-110 Phsician Notified COMPREHENSIVE METABOLIC [id number] 07:23:00 Test Item Value Reference Range Comments [...] TOTAL (test code=ALKP) 103 units/L 46-116 T4 [id number] 07:23:00 Test Item Value Reference Range Comments T4 FREE (test code=T4F) 1.24 ng/dL 0.76-1.46 THYROID STIMULATING [id number] 07:23:00 Test Item Value Reference Range Comments THYROID STIMULATING HORMONE 3.27 0.36-3.74 Test Performed in (test code=TSH) MicroInternational Units/mL GLYCOSYLATED HEMOGLOBIN (HA1C)2018-12-15 07:23:00 Test Item Value Reference Range Comments GLYCOSYLATED HEMOGLOBIN (HA1C) (test code=GLYHGB) [id number] 06:04:00 Test Item Value Reference Range Comments GLUBED (test code=GLUBED) 308 mg/dL 65-110 Phsician Notified COMPREHENSIVE METABOLIC [id number] 05:10:00 Test Item Value Reference Range Comments [...] (test code=ALKP) 103 units/L 46-116 THYROID STIMULATING [id number] 05:10:00 Test Item Value Reference Range Comments THYROID STIMULATING HORMONE 3.27 0.36-3.74 Test Performed in (test code=TSH) MicroInternational Units/mL GLYCOSYLATED HEMOGLOBIN (HA1C)2018-12-15 05:10:00 Test Item Value Reference Range Comments GLYCOSYLATED HEMOGLOBIN (HA1C) (test code=GLYHGB) LACTIC [id number] 04:53:00 Test Item Value Reference Range Comments LACTIC ACID (test code=LACT) 1.5 MMOL/L 0.5-2.2 CBC W/AUTO [id number] 04:30:00 Test Item Value Reference Range Comments [...] code=PLTMR) NORMAL NORMAL - CT HEAD/BRAIN W/O [id number] 04:27:00 Patient Name: SOHAIL THOMPSON Unit No: [id number] EXAMS: CPT CODE : [id number] CT HEAD/BRAIN W/O CONT 91511 EXAM: CT, CT HEAD/BRAIN W/O CONTRAST; 12/15/2018, [...] mass, acute hemorrhage or subacute stroke. SL: JSYED-H [facility] NAME: JOSE ALEJANDRO THOMPSONINA Radiology Department PHYS: Lianet Morrow MD [address] : 1990 AGE: 28 SEX: F [place], [place] [address] LOC: F.4672 A PHONE #: [phone] EXAM DATE: 12/15/2018 STATUS: ADM IN FAX #: [phone] RAD NO: Page 1 Signed Report 1 Patient Name: SOHAIL THOMPSON UnitNo: [id number] EXAMS: CPT CODE: [id number] CT HEAD/BRAIN W/O CONT 56754 <Continued> at 0427 Reported and signed by: Paul Barreto M.D. CC: Lianet Weir Technologist: JENNI MEDINA, RT CTDI : 53.12 DLP: 879.86 Trnscrbd D/ (0427) [id number] [facility] NAME:DONNASOHAIL Radiology Department PHYS: Lianet Morrow MD [address] : 1990 AGE: 28 SEX: F [place], [place] [address] LOC: F.4672 A PHONE #: [phone] EXAM DATE: 12/15/2018 STATUS: ADM IN FAX #: [phone] RAD NO: Page 2 Signed Report 1 Patient Name: SOHAIL THOMPSON Unit No: [id number] EXAMS: CPT CODE: [id number] CT HEAD/BRAIN W/O CONT 45936 <Continued> Orig Print D/T: S: 12/15/2018 (0430) [facility] NAME: SOHAIL THOMPSON Radiology DepartmentPHYS: Lianet Morrow MD [address] : 1990 AGE : 28 SEX: F [place], [place] [address] LOC: Morteza.4672 A PHONE #: [phone] EXAM DATE: 12/15/2018 STATUS: ADM IN FAX #: [phone] RAD NO: Page 3 Signed Report 1
--- OUTSIDE RECORDS SUMMARY | 2019-02-19 18:45 | XMS REPORT ---
[...] End Status Dosage System Date Date Norethin [facility] 99999447781 1-20 MG-MCG(April Active 1 tablet Johnnie-Eth Orally Once a 2018 Estrad- day Lisinopril ND 09020419182 20 MG Orally Active 1 tablet Once a day Loryna [facility] 55751744784 3-0.02 MG Orally Active 1 tablet Once a day Lancets Super NDC 0 n/s finger stick May Active one Thin once 2017 Alcohol Prep NDC 0 topical twice May Active as directed Pads daily 2017 Metformin HCl ND 26140331304 500 MG Orally Active 1 tablet Twice a day with meals blood glucose NDC 0 n/s finger stick May Active one test strip once a day 2017 Results No Known Results Summary Purpose eClinicalWorks Submission
--- OUTSIDE RECORDS SUMMARY | 2019-02-19 18:45 | XMS REPORT ---
[...] Active as directed Pads daily 2017 Lisinopril [facility] 30621332338 20 MG Orally Active 1 tablet Once a day Lancets Super NDC 0 n/s finger stick May Active one Thin once 2017 Norethin ND 43541971037 1-20 MG-MCG(24) April Active 1 tablet Johnnie-Eth Orally Once a 2018 Estrad- day Loryna ND 27704290169 3-0.02 MG Orally Active 1 tablet Once a day Metformin HCl ND 04404216541 500 MG Orally Active 1 tablet Twice a day with meals Results No Known Results Summary Purpose eClinicalWorks Submission
--- OUTSIDE RECORDS SUMMARY | 2019-02-19 18:45 | XMS REPORT ---
:1990 Author Organization eClinicalWorks Care Team Providers Name Role Phone Cirilo Valdse Provider Role Unavailable Allergies No Known Allergies [...]
[2019-02-19 19:32] LABS: Urine Blood NEGATIVE (NEG); Urine Glucose 2+ (NEG); Urine Protein NEGATIVE (NEG); Urine pH 6.5 (5.0-7.0)
[2019-02-19] MEDS ORDERED: ONDANSETRON 4 MG/2 ML VIAL ONE (20:25)
[2019-02-19] MEDS ORDERED: MORPHINE 4 MG/ML SYR ONE (20:26)
[2019-02-19 20:44] LABS: Absolute Lymphocytes (CBC) 2.3 K/uL (0.7-4.9); Basophils % 0.3 % (0-1.3); Hematocrit 37.8 % (36.0-45.0); Lymphocytes % 13.4 % (15.3-44.8); RBC Red Blood Cell Count 4.67 M/uL (3.86-4.86)
[2019-02-19 20:57] LABS: Albumin 3.5 g/dL (3.4-5.0); Bilirubin Total 1.6 mg/dL (0.2-1.0); Potassium 3.5 mmol/L (3.5-5.1); Protein, Total 8.8 g/dL (6.4-8.2)
[2019-02-19] MEDS ORDERED: NA CHLORIDE 0.9% 1,000 ML ONE (21:18)
[2019-02-19] MEDS ORDERED: INSULIN -REGULAR HUMAN 50 UNIT/0.5 ML ML ONE (21:18)
--- NOTE | 2019-02-19 21:57 | ER ---
Nurse's Notes [facility] Name: Stacy Islas Age: 28 yrs Sex: Female : 1990 Arrival Date: 02/19/2019 Time: 18:42 Bed 25 Private MD: Diagnosis: Cellulitis of abdominal wall;Cutaneous abscess of abdominal wall;Hyperglycemia, unspecified Presentation: 02/19 19:00 Presenting complaint: Patient states: redness and swelling to L side of abd that began ss 2 days ago. Denies fever. Transition of care: patient was not received from another setting of care. Onset of symptoms was February 17, 2019. Risk Assessment: Do you want to hurt yourself or someone else? Patient reports no desire to harm self or others. Initial Sepsis Screen: Does the patient meet any 2 criteria? No. Patient's initial sepsis screen is negative. Does the patient have a suspected source of infection? Yes: Skin breakdown/wound. Care prior to arrival: None. 19:00 Method Of Arrival: Ambulatory ss 19:00 Acuity: VENTURA 4 ss 20:31 Acuity: VENTURA 3 iw Historical: - Allergies: 19:01 Zosyn; ss - Home Meds: 19:01 Lantus Sub-Q [Active]; Novolog Sub-Q [Active]; ss - PMHx: 19:01 Diabetes - IDDM; ss - PSHx: 19:01 Hysterectomy; ss - Immunization history:: Adult Immunizations up to date. - Social history:: Smoking status: Patient/guardian denies using tobacco. - Ebola Screening: : Patient denies exposure to infectious person Patient denies travel to an Ebola-affected area in the 21 days before illness onset. Screenin:30 Abuse screen: Denies threats or abuse. Denies injuries from another. Nutritional iw screening: No deficits noted. Tuberculosis screening: No symptoms or risk factors identified. Fall Risk None identified. Assessment: 20:28 General: Appears in no apparent distress. Behavior is calm, cooperative. Pain: iw Complains of pain in anterior aspect of left lateral abdomen and left lower quadrant. Neuro: Level of Consciousness is awake, alert, obeys commands, Oriented to person, place, time, situation, Moves all extremities. Cardiovascular: Patient's skin is warm and dry. Respiratory: Airway is patent Respiratory effort is even, unlabored. GI: Bowel sounds present X 4 quads. Abd is soft and non tender X 4 quads. Derm: redness and swelling to LLQ area, radiating to left flank. pt states she injected herself with insulin and believes it became infected, denies fever, small area that appears to be abscess noted to area. Musculoskeletal: Range of motion: intact in all extremities. 21:54 Reassessment: Patient appears in no apparent distress at this time. Patient and/or iw family updated on plan of care and expected duration. Pain level reassessed. Patient is alert, oriented x 3, equal unlabored respirations, skin warm/dry/pink. Vital Signs: 19:01 BP 123 / 66; Pulse 98; Resp 17; Temp 98.6; Pulse Ox 100% ; Weight 108.86 kg; Height 5 sv ft. 3 in. (160.02 cm); Pain 10/10; 20:02 BP 108 / 64 RA (auto/lg); Pulse 95; Resp 18 S; Temp 98.7; Pulse Ox 99% on R/A; Pain jp3 9; 19:01 Body Mass Index 42.51 (108.86 kg, 160.02 cm) sv ED Course: 18:42 Patient arrived in ED. as 19:00 Triage completed. ss 19:05 Arm band placed on. ss 19:20 Urine collected: clean catch specimen, clear, ra colored. jp3 19:50 Juanpablo Esposito PA is PHCP. m 19:50 Bubba Nolan MD is Attending Physician. [facility] 19:50 Charisma Seals, JEFF is Primary Nurse. iw 20:01 Patient maintains SpO2 saturation greater than 95% on room air. jp3 20:02 Bed in low position. Call light in reach. Side rails up X 1. Warm blanket given. Verbal jp3 reassurance given. Pulse ox on. NIBP on. 20:31 Initial lab(s) drawn, by me, sent to lab. Inserted saline lock: 22 gauge in left jp3 antecubital area, using aseptic technique. Blood collected. 20:32 Safety checks: Family/friend present: yes. jp3 20:32 CMP Sent. jp3 20:32 CBC with Diff Sent. jp3 20:50 US Extrmty Nonvasular Limited: rule out abscess In Process Unspecified. EDMS 21:56 Ricci Bauer is Hospitalizing Provider. mimi Administered Medications: 20:38 Drug: morphine 4 mg Route: IVP; Site: left antecubital; 20:40 Drug: Zofran 4 mg Route: IVP; Site: left antecubital; iw 21:27 Drug: NS 0.9% 1000 ml Route: IV; Rate: 1 bolus; Site: left antecubital; iw 21:27 Drug: Insulin Regular Human 10 units {Co-Signature: ra1 (Fawad Lay RN).} Route: iw IVP; Site: left antecubital; Outcome: 21:57 Decision to Hospitalize by Provider. mimi 02/20 00:43 Patient left the ED. Signatures: Dispatcher [employer] EDMS Radha Wagner RN RN Juanpablo Esposito PA PA jmm Martinez, Amelia as Williams, Irene, RN RN Claire Singletary RN RN Dash Brambila jp3 Fawad Lay RN ra1 Corrections: (The following items were deleted from the chart) 02/19 19:06 19:01 Resp 17bpm; 108.86 kg; Height 5 ft. 3 in.; BMI: 42.5; Pain 10/10; ss ss 19:07 19:01 Pulse 110bpm; Resp 17bpm; Pulse Ox 100%; Temp 98.6F; 108.86 kg; Height 5 ft. 3 sv in.; BMI: 42.5; Pain 10/10; ss
--- NOTE | 2019-02-19 21:57 | EDPHYS ---
Physician Documentation [facility] Name: Stacy Islas Age: 28 yrs Sex: Female : 1990 Arrival Date: 02/19/2019 Time: 18:42 Bed 25 Private MD: ED Physician Bubba Nolan HPI: 02/19 20:35 This 28 yrs old Female presents to ER via Ambulatory with complaints of jmm Abdominal Pain - redness/swelling. 20:35 the patient presents with a swollen area of the left lower quadrant. Onset: The jmm symptoms/episode began/occurred gradually, 2 day(s) ago. Possible cause(s): insulin injection. Associated signs and symptoms: Pertinent positives: erythema, swelling, Pertinent negatives: fever. This is a 28 year old female with a history of DM that presents to the ED with complaints of left lower abdominal pain. Symptoms began approx 2 days ago. Patient states she injected insulin 3 days and was unable to inject. Denies fever or chills. . Historical: - Allergies: 19:01 Zosyn; ss - Home Meds: 19:01 Lantus Sub-Q [Active]; Novolog Sub-Q [Active]; ss - PMHx: 19:01 Diabetes - IDDM; ss - PSHx: 19:01 Hysterectomy; ss - Immunization history:: Adult Immunizations up to date. - Social history:: Smoking status: Patient/guardian denies using tobacco. - Ebola Screening: : Patient denies exposure to infectious person Patient denies travel to an Ebola-affected area in the 21 days before illness onset. ROS: 20:35 Constitutional: Negative for fever, chills, and weight loss, Cardiovascular: Negative jmm for chest pain, palpitations, and edema, Respiratory: Negative for shortness of breath, cough, wheezing, and pleuritic chest pain. 20:35 Skin: Positive for erythema. 20:35 All other systems are negative. Exam: 20:35 Constitutional: This is a well developed, well nourished patient who is awake, alert, jmm and in no acute distress. Head/Face: atraumatic. Eyes: EOMI, no conjunctival erythema appreciated ENT: Moist Mucus Membranes Neck: Trachea midline, Supple Chest/axilla: Normal chest wall appearance and motion. Cardiovascular: Regular rate and rhythm. No edema appreciated Respiratory: Normal respirations, no respiratory distress appreciated 20:35 Skin: General appearance color normal MS/ Extremity: Moves all extremities, no obvious deformities appreciated, no edema noted to the lower extremities Neuro: Awake and alert, normal gait Psych: Behavior is normal, Mood is normal, Patient is cooperative and pleasant 20:35 Abdomen/GI: swelling and induration appreciated to the left lower quadrant, ttp. 20:35 Skin: induration appreciated to the left lower quadrant. 20:35 Neuro: Orientation: is normal, Mentation: is normal, Memory: is normal. 20:35 Psych: Behavior/mood is pleasant, cooperative. Vital Signs: 19:01 BP 123 / 66; Pulse 98; Resp 17; Temp 98.6; Pulse Ox 100% ; Weight 108.86 kg; Height 5 sv ft. 3 in. (160.02 cm); Pain 10/10; 20:02 BP 108 / 64 RA (auto/lg); Pulse 95; Resp 18 S; Temp 98.7; Pulse Ox 99% on R/A; Pain jp3 9; 19:01 Body Mass Index 42.51 (108.86 kg, 160.02 cm) sv MDM: 19:54 Patient medically screened. ange 21:55 Data reviewed: vital signs, nurses notes. Counseling: I had a detailed discussion with mimi the patient and/or guardian regarding: the historical points, exam findings, and any diagnostic results supporting the discharge/admit diagnosis, lab results, radiology results, the need for further work-up and treatment in the hospital. ED course: I discussed the patient with Dr. Ryan whom will consult on admission. I discussed the patient with Dr. Bauer whom accepted admission. . 02/19 19:14 Order name: Urine Dipstick--Ancillary (enter results); Complete Time: 19:56 [facility] 02/19 19:14 Order name: Urine --Ancillary (enter results); Complete Time: 19:56 [facility] 02/19 20:15 Order name: CBC with Diff; Complete Time: 20:[address] [facility] 02/19 20:15 Order name: CMP; Complete Time: 21:[address] [facility] 02/19 20:15 Order name: US Extrmty Nonvasular Limited: rule out abscess [facility] 02/19 23:04 Order name: Glucose, Ancillary Testing [facility] 02/19 20:15 Order name: Saline Lock; Complete Time: 20:[address] [facility] Administered Medications: 20:38 Drug: morphine 4 mg Route: IVP; Site: left antecubital; iw 20:40 Drug: Zofran 4 mg Route: IVP; Site: left antecubital; iw 21:27 Drug: NS 0.9% 1000 ml Route: IV; Rate: 1 bolus; Site: left antecubital; iw 21:27 Drug: Insulin Regular Human 10 units {Co-Signature: ra1 (Fawad Lay RN).} Route: iw IVP; Site: left antecubital; Disposition: 02/19/19 21:57 Hospitalization ordered by Ricci Bauer for Inpatient Admission. Preliminary diagnosis are Cellulitis of abdominal wall, Cutaneous abscess of abdominal wall, Hyperglycemia, unspecified. - Bed requested for Telemetry/MedSurg (Inpatient). - Status is Inpatient Admission. iw - Condition is Stable. - Problem is new. - Symptoms are unchanged. UTI on Admission? No Addendum: 02/21/2019 08:14 Co-signature as Attending Physician, Bubba Nolan MD I agree with the assessment and c gill plan of care. Signatures: Dispatcher [employer] EDAZ Bubba Nolan MD MD cha Mickail, Joel, PA PA [facility] Charisma Seals RN RN Claire Singletary RN RN Vilma Collazo RN RN Fawad Lay RN ra1 Corrections: (The following items were deleted from the chart) 02/19 20:15 20:15 Urine Test ordered. [facility] 20:16 20:15 Urine Dipstick-Ancillary ordered. [facility] 23:02 21:57 Hospitalization Ordered by Ricci Bauer for Inpatient Admission. Preliminary diagnosis is Cellulitis of abdominal wall; Cutaneous abscess of abdominal wall; Hyperglycemia, unspecified. Bed requested for Telemetry/MedSurg (Inpatient). Status is Inpatient Admission. Condition is Stable. Problem is new. Symptoms are unchanged. UTI on Admission? No. [facility] 02/20 00:43 02/19 23:02 02/19/2019 21:57 Hospitalization Ordered by Ricci Bauer for Inpatient iw Admission. Preliminary diagnosis is Cellulitis of abdominal wall; Cutaneous abscess of abdominal wall; Hyperglycemia, unspecified. Bed requested for Telemetry/MedSurg (Inpatient). Status is Inpatient Admission. Condition is Stable. Problem is new. Symptoms are unchanged. UTI on Admission? No. cg
--- NOTE | 2019-02-19 22:45 | P.HP ---
Certification for Inpatient Patient admitted to: Inpatient With expected LOS: >2 Midnights Practitioner: I am a practitioner with admitting privileges, knowledge of patient current condition, hospital course, and medical plan of care. Services: Services provided to patient in accordance with Admission requirements found in Title 42 Section 412.3 of the Code of Federal Regulations Patient History Date of Service: 02/19/19 Reason for admission: Abdominal wall Pain and swelling History of Present Illness: 28-year-old morbidly obese woman with a history of diabetes mellitus type 2 on insulin therapy presented to the emergency department with a complaint of pain and swelling in the left lower quadrant abdominal wall. Patient stated it started with a small lump 2 days ago, which has progressed with induration, erythema and tenderness to the skin around it. Patient denied any fever but endorsed rigors. Ultrasound in the ED reported 3 cm fluid collection indicating an abscess. Her blood sugar level was 515 in the ED. The patient is admitted for further management of abscess and cellulitis of abdominal wall. Allergies piperacillin [From Zosyn] Allergy (Verified 02/20/19 00:26) Hives/Rash tazobactam [From Zosyn] Allergy (Verified 02/20/19 01:07) Anaphylaxis Home Medications: Insulin Glargine Human [Lantus*] 34 units SQ DAILY 02/20/19 - Past Medical/Surgical History Diabetic: Yes -: Type 2 diabetes -: Morbid obesity -: History of ovarian cyst -: Removal of cyst from rt. breast. -: c. section x 2 - Family History Father -: Diabetes - Social History Alcohol use: Yes CD- Drugs: No Caffeine use: Yes Review of Systems Other: General: No fever, no malaise, no unintentional weight loss. Eyes: No eye discharge, Respiratory: No cough, no shortness of breath. CVS: No chest pain, no palpitation, no lightheadedness. GI: No nausea no vomit, no constipation, no diarrhea. Genitourinary: No dysuria, no urinary frequency, no incontinence, no hematuria. Musculoskeletal: No joint pains, or joint swelling, no gait instability. Neurology: No headache, no asymmetric weakness, no problem with swallowing. Except as documented, all other systems reviewed and negative. Physical Examination - Physical Exam General: Alert, In no apparent distress, Oriented x3, Obese HEENT: PERRLA, Mucous membr. moist/pink, Sclerae nonicteric Neck: Supple, JVD not distended Respiratory: Clear to auscultation bilaterally, Normal air movement Cardiovascular: No edema, Regular rate/rhythm, Normal S1 S2 Capillary refill: <2 Seconds Gastrointestinal: Normal bowel sounds, Soft and benign, Non-distended Musculoskeletal: No swelling, No erythema Integumentary: Tenderness/swelling (Left lower quadrant abdominal wall), Erythema Neurological: Normal speech, Normal strength at 5/5 x4 extr - Studies Laboratory Data (last 24 hrs) 02/19/19 20:25: Sodium 129 L, Potassium 3.5, BUN 8, Creatinine 1.01, Glucose 515 H*, Total Bilirubin 1.6 H, AST 11 L, ALT 28, Alkaline Phosphatase 145 H 02/19/19 20:25: WBC 17.0 H, Hgb 12.1, Hct 37.8, Plt Count 247 Assessment and Plan - Problems (Diagnosis) (1) Cellulitis and abscess of unspecified site Current Visit: Yes Status: Acute (2) Uncontrolled type 2 diabetes mellitus with hyperglycemia Current Visit: Yes Status: Acute (3) LFT elevation Current Visit: Yes Status: Acute - Plan Admit to general medical floor Start IV vancomycin and Levaquin Obtain blood culture given leukocytosis Aggressive blood sugar control with Lantus insulin, premeal insulin and insulin sliding scale. Consult to general surgery Pain management with IV morphine and IV Toradol - Advance Directives Does patient have a Living Will: No Does patient have a Durable POA for Healthcare: No
--- NOTE | 2019-02-19 23:06 | RAD REPORT ---
EXAM DESCRIPTION: US - Extremity Nonvascular Limited - 02/19/2019 8:50 pm CLINICAL HISTORY: PAIN COMPARISON: No comparisons TECHNIQUE: Real-time sonographic evaluation of the area of interest was performed left abdomen. FINDINGS: Small subcutaneous fluid collection is seen the area of interest left abdomen measuring 2 x 1 cm and extending approximately 3 cm deep from the skin, likely representing an abscess.
[2019-02-20] MEDS ORDERED: KETOROLAC 30 MG/ML INJ IV PRN (00:16)
[2019-02-20] MEDS ORDERED: ONDANSETRON 4 MG/2 ML VIAL IV PRN (00:16)
[2019-02-20] MEDS ORDERED: ACETAMINOPHEN 500 MG TAB PO PRN (00:16)
[2019-02-20] MEDS ORDERED: VANCOMYCIN/NS 1 gm 1 GM/250 ML BAG IVPB SCH (00:16)
[2019-02-20 00:55] VITALS: BMI 41.5
[2019-02-20] MEDS: NA CHLORIDE 0.9% 1,000 ML IV SCH ×2 (01:00→13:20)
[2019-02-20] MEDS: Levofloxacin 750mg IV 750 MG/150 ML BAG IV SCH (01:23)
[2019-02-20] MEDS ORDERED: NA CHLORIDE 0.9% 250 ML ONE (01:32)
[2019-02-20] MEDS: INSULIN -REGULAR HUMAN 50 UNIT/0.5 ML ML SQ SCH ×5 (02:16→21:33)
[2019-02-20] MEDS ORDERED: VANCOMYCIN 1 GM/VIAL ONE (03:15)
[2019-02-20] MEDS ORDERED: VANCOMYCIN 2 GM in NA CHLORIDE 0.9% 500 ML IVPB SCH (04:00)
[2019-02-20 06:12] LABS: Absolute Lymphocytes (CBC) 2.2 K/uL (0.7-4.9); Basophils % 0.2 % (0-1.3); Hematocrit 32.3 % (36.0-45.0); Lymphocytes % 14.2 % (15.3-44.8)
[2019-02-20 06:23] LABS: ALT/SGPT 20 U/L (12-78); AST/SGOT 9 U/L (15-37); Albumin 2.8 g/dL (3.4-5.0); Alkaline Phosphatase 127 U/L (45-117); BUN Blood Urea Nitrogen 5 mg/dL (7-18); Bicarbonate 24 mmol/L (21-32); Bilirubin Total 1.7 mg/dL (0.2-1.0); Glucose Level 290 mg/dL (74-106); Magnesium 1.8 mg/dL (1.8-2.4); Phosphorus 2.2 mg/dL (2.5-4.9); Potassium 3.3 mmol/L (3.5-5.1); Protein, Total 7.4 g/dL (6.4-8.2); Sodium Level 133 mmol/L (136-145)
[2019-02-20] MEDS ORDERED: GLUCAGON 1 MG/VIAL IM PRN (07:03)
[2019-02-20] MEDS ORDERED: D50W 25 GM/50 ML SYRINGE IV PRN (07:03)
[2019-02-20] MEDS ORDERED: INSULIN LISPRO 100 UNIT/1 ML SQ SCH (07:30)
[2019-02-20] MEDS: ENOXAPARIN 40 MG/0.4 ML SQ SCH (09:00)
[2019-02-20] MEDS: INSULIN GLARGINE 100 UNITS/ML SQ SCH (09:57)
[2019-02-20] MEDS: INSULIN LISPRO 100 UNIT/1 ML SQ SCH ×2 (11:30→16:30)
[2019-02-20] MEDS ORDERED: INFLUENZA VACCINE (for 3y+) 0.5 ML DOSE IMVAC ONE (12:00)
[2019-02-20] MEDS ORDERED: MAGNESIUM SULFATE 1 gm IVPB 1 GM/100 ML BAG IV ONE (12:00)
[2019-02-20] MEDS ORDERED: POTASS/SODIUM PHOSPHATE 1 PKT POWD.PACK PO SCH (12:00)
[2019-02-20] MEDS ORDERED: POTASSIUM CL SA 10 MEQ TAB PO ONE (12:00)
[2019-02-20] MEDS: POTASS/SODIUM PHOSPHATE 1 PKT POWD.PACK PO SCH ×3 (12:30→13:22)
--- NOTE | 2019-02-20 15:41 | PN ---
Date of Progress Note: 02/20/2019 Subjective: Patient seen and examined. Chart reviewed and case discussed with RN. Patient still gill ving some pain on the left side of her abdomen in the area of cellulitis. Treatment plan explained, all questions answered. Medications: List reviewed. Physical Examination: Accompanied by female nurse, Anamaria. Vital Signs: Temperature 97, heart rate 87, blood pressure 94/50, respirations 20, O2 96% on room ai r. General: Awake, alert. Oriented x3, in some mild distress due to pain. Ill-appearing female. BMI 41.5. CVS: S1, S2. Regular rate and rhythm. Peripheral pulses present. Respiratory: Moving air well bilaterally. No wheezing or stridor. Gastrointestinal: Abdomen is soft. Tenderness to palpation in the left upper quadrant area of cellu litis and abscess. No rigidity. Positive bowel sounds. Extremities: No clubbing, cyanosis, or edema. Neuro: Cranial nerves II through XII intact grossly. No focal neurological deficit. Speech is norm al. Skin: Cellulitis of the left upper quadrant abdominal wall along with area of fluctuance and indurat ion. Laboratory Data: Sodium 133, potassium 3.3, chloride 101, CO2 of 24, BUN 5, creatinine 0.59, glucose 290, calcium 8.4, phosphorus 2.2, magnesium 1.8, total bilirubin 1.7, albumin 2.8. WBC 15.8, H and H of 10.6 and 32.3, platelets 255, neutrophils 75.9%. Blood cultures are pending. Extremity ultrasound shows small subcutaneous fluid collection in the area of interest left abdomen m easuring 2.1 cm extending approximately 2 cm deep from the skin, likely representing an abscess. Assessment And Plan: A 28-year-old female with: 1.Cellulitis and abscess of left upper abdominal wall. We will continue with IV antibiotics. Ultra sound showed a small abscess 2.[address] Ryan with General Surgery has been consulted. We will likely need incision and drainage. Follow up on cultures. 2.Diabetes mellitus type 2 with hyperglycemia, uncontrolled. We will check hemoglobin A1c. Adjust insulin dose. Continue with long-acting home dose of insulin. 3.Hyperbilirubinemia. 4.Morbid obesity. BMI 41.5. 5.Hyponatremia. We will replace and monitor. 6.Hypokalemia. We will replace and monitor. 7.Hypophosphatemia. We will replace and continue to monitor. 8.Deep venous thrombosis prophylaxis. Lovenox. Disposition: Likely discharge in the 24-48 hours depending on clinical response. Patient will need to be set up with diabetic education as an outpatient. /WIL Voice ID: [id number] Report ID: [id number]
[2019-02-20] MEDS: VANCOMYCIN 2 GM in NA CHLORIDE 0.9% 500 ML IVPB SCH (16:48)
--- NOTE | 2019-02-20 19:12 | CON ---
Date of Consultation: 02/20/2019 Diagnoses: Diabetes, abdominal wall cellulitis. History Of Present Illness: This is the case of a 28-year-old patient, used injected insulin but not iced an areas about 30 x 20 cm of redness and induration. Increased temperature. Patient came to th e ER, diagnosis of cellulitis. This cannot rule out a small abscess of the area. Surgica l consult was obtained. Past Medical History: Diabetes, insulin dependent. Past Surgical History: Hysterectomy. Medications: Lantus and NovoLog. Allergies: ZOSYN. Family History: Noncontributory. Review of Systems: Ten-point system was unremarkable. Physical Examination: General: The patient is awake and alert. HEENT: Pupils are equal and reactive, anicteric. Neck: Supple. Chest: Clear. Abdomen: Soft and depressible. There is a large area as mentioned above with induration and celluli tis. No fluctuance palpated at this moment. No crepitus. Extremities: Good capillary refill. Laboratory Data: Blood work shows WBC count of 17 with hemoglobin of 12, potassium 3.3. Ultrasound, there is some area of extensive cellulitis of the abdomen. There is about 2 x 1 area that may be th e process of mature into an abscess. We are not completely sure yet. Assessment And Plan: 28-year-old patient with cellulitis, possible abscess. We encouraged her diabe isac control, IV antibiotics. She has been admitted to the hospital for her cellulitis and even thoug h we take her for surgery but still the cellulitis needs to be treated because this is already extens [place] area and patient fully explained that. We are going to keep the patient n.p.o. after midnight an d we are going develop to an abscess. We will do incision and drainage with benefits, alt ernatives, and risks including, but not limited to infection, bleeding, damage to adjacent structures , and complication, nonhealing wound, myocardial infarction, and even . She also understands th is may not relieve symptoms. She might need more than one surgical intervention. She also understan ds she will require wound care. HM/MODL Voice ID: [id number] Report ID: [id number]
[2019-02-21] MEDS: Levofloxacin 750mg IV 750 MG/150 ML BAG IV SCH (00:38)
[2019-02-21] MEDS: NA CHLORIDE 0.9% 1,000 ML IV SCH ×2 (03:22→16:16)
[2019-02-21] MEDS: VANCOMYCIN 2 GM in NA CHLORIDE 0.9% 500 ML IVPB SCH ×3 (03:22→18:17)
[2019-02-21 05:36] LABS: Absolute Lymphocytes (CBC) 2.3 K/uL (0.7-4.9); Basophils % 0.4 % (0-1.3); Hematocrit 31.5 % (36.0-45.0); Lymphocytes % 20.3 % (15.3-44.8); MPV 9.6 fL (7.6-11.3)
[2019-02-21 05:47] LABS: BUN Blood Urea Nitrogen 5 mg/dL (7-18); Bicarbonate 26 mmol/L (21-32); Glucose Level 259 mg/dL (74-106); Magnesium 1.8 mg/dL (1.8-2.4); Phosphorus 2.9 mg/dL (2.5-4.9); Potassium 3.6 mmol/L (3.5-5.1); Sodium Level 139 mmol/L (136-145)
[2019-02-21] MEDS: INSULIN LISPRO 100 UNIT/1 ML SQ SCH ×3 (07:30→17:05)
[2019-02-21] MEDS: ENOXAPARIN 40 MG/0.4 ML SQ SCH (09:00)
[2019-02-21] MEDS ORDERED: MAGNESIUM SULFATE 1 gm IVPB 1 GM/100 ML BAG IV ONE (09:00)
[2019-02-21] MEDS: INSULIN GLARGINE 100 UNITS/ML SQ SCH (09:13)
[2019-02-21] MEDS: INSULIN -REGULAR HUMAN 50 UNIT/0.5 ML ML SQ SCH ×4 (09:13→21:02)
[2019-02-21] MEDS: KCL 20 MEQ/100 mL IVPB 20 MEQ/100 ML BAG IV SCH ×2 (09:15→10:00)
[2019-02-21] MEDS ORDERED: NA CHLORIDE 0.9% 1,000 ML ONE (11:46)
[2019-02-21] MEDS ORDERED: LIDOCAINE 2% MPF 5 ML VIAL ONE (11:49)
[2019-02-21] MEDS ORDERED: MIDAZOLAM HCL 2 MG/2 ML INJ ONE (11:49)
[2019-02-21] MEDS ORDERED: FENTANYL CITR 100 MCG/2 ML ONE ×2 (11:49→13:17)
[2019-02-21] MEDS ORDERED: propofoL 200 MG/20 ML VIAL IV ONE (11:49)
[2019-02-21] MEDS ORDERED: ONDANSETRON 4 MG/2 ML VIAL ONE ×2 (11:50→13:06)
[2019-02-21] MEDS ORDERED: KETOROLAC 30 MG/ML INJ ONE (13:07)
--- NOTE | 2019-02-21 13:25 | P.BOP ---
Preoperative diagnosis: diabetes,obesity, abdominal wall cellulitis and abscess Postoperative diagnosis: same plus abdominal wall complex abscess 25 x 5 cm Primary procedure: Incison and drainage of abdominal wall complex abscess 25 x 5 cm Estimated blood loss: <50cc Specimen: culture Findings: miltiloculated abscess Anesthesia: General Complications: None Drain(s): Other Transferred to: Recovery Room Condition: Good
--- NOTE | 2019-02-21 14:42 | PN ---
Date of Progress Note: 02/21/2019 Subjective: Patient is seen and examined. Chart reviewed and case discussed with RN. Patient still having some pain. Medications: List reviewed. Physical Examination: Vital Signs: Temperature 97.3, heart rate 93, blood pressure 93/54, respirations 15, O2 96% on room air. General: Awake, alert, oriented x3. Ill-appearing, morbidly obese female. CVS: S1, S2. Regular rate and rhythm. Peripheral pulses present. Respiratory: Moving air well bilaterally. No wheezing or stridor. Gastrointestinal: Abdomen is soft, nontender, nondistended. Positive bowel sounds. Extremities: No clubbing, cyanosis, or edema. Neurologic: Nonfocal. Skin: Abdominal wall cellulitis, erythema, induration and fluctuance, tenderness to palpation. Warm to touch. Laboratory Data: Sodium 139, potassium 3.6, chloride 107, CO2 of 26, BUN 5, creatinine 0.59, glucose 259, calcium 8.3, phosphorus 2.9, magnesium 1.8. Hemoglobin A1c is 12.8. WBC 11.4, H and H of 10.2 and 31.5, platelets 240, neutrophils 69%. Blood cultures, no growth to date. Assessment And Plan: 28-year-old female with: 1.Cellulitis of the left upper abdominal wall. Continue with IV antibiotics. Cultures are negative . 2.Abscess of the left upper abdominal wall 2.1 cm. Plan is for incision and drainage today by Dr. Misael gill. We will follow up on wound cultures. 3.Diabetes mellitus type 2 with hyperglycemia, uncontrolled. Hemoglobin A1c is 12.8%. Continue lesly betic education. Adjust insulin dose. Patient is n.p.o. We will give half a dose of long-acting in sulin today. Her pre-meals dose was adjusted yesterday. 4.Hyperbilirubinemia, likely acute phase reactant. 5.Morbid obesity. BMI of 41. 6.Hyponatremia, corrected. Continue to monitor. 7.Hypokalemia, replace and monitor. 8.Hypophosphatemia has been corrected. We will continue to monitor. 9.Deep venous thrombosis prophylaxis. Lovenox currently held for surgery. Plan: Patient will likely need continued wound care. Follow up on blood cultures and after surgery, we will need to follow up on wound cultures as well. May need long-term antibiotics. Pending cultu re results. Likely, discharge in the next 24 to 48 hours. /WIL Voice ID: [id number] Report ID: [id number]
[2019-02-21] MEDS ORDERED: POTASSIUM 25 MEQ EFFERV TAB PO ONE (15:57)
[2019-02-21] MEDS ORDERED: VANCOMYCIN 2.25 GM in NA CHLORIDE 0.9% 500 ML IVPB SCH (17:00)
[2019-02-21] MEDS: MORPHINE 2 MG/ML SYR IV PRN (22:34)
--- NOTE | 2019-02-21 23:34 | OP ---
Date of Procedure: 02/21/2019 Surgeon: Alexander Ryan MD Preoperative Diagnoses: Diabetes, morbid obesity, abdominal wall cellulitis and abscess. Postoperative Diagnoses: Diabetes, morbid obesity, abdominal wall complex abscess 25 x 5 cm. Procedure: Incision and drainage of abdominal wall complex abscess. Specimen: Culture. Findings: Multiple abscess with multiple loculations. Anesthesia: General plus local. Indications: This is the case of a female who comes to us with cellulitis and morbid obesity with ce llulitis of the abdominal wall matured into an abscess. We explained to her the need for incision an d drainage with benefits, alternatives, and risks, including, but not limited to infection, bleeding, damage to adjacent structures, anesthesia complication, nonhealing wound, ND, and even . She a lso understands this may not relieve any symptoms. She might need more than one surgical interventio n. She understood, signed a consent. She understands she will require packing and antibiotics treat ment. Description Of Procedure: Patient brought to the operating room, placed in supine position. Anesthe sabra was achieved without complication. Abdominal area was prepped and draped in sterile fashion. Th e area of concern was previously marked by me and the patient in the holding room. An incision was m mark in the left lower quadrant where the abscess is and then we noticed the patient has some multiloc ulations from main abscess. Whole area was about 25 x 5 cm. The area was debrided. The cultures we re sent. Hemostasis obtained, irrigated, and the area were packed with Kerlix, normal saline overall. Patient tolerated the procedure well. Patient was sent to Recovery in stable condition. NOAH/WIL Voice ID: [id number] Report ID: [id number]
[2019-02-22] MEDS: Levofloxacin 750mg IV 750 MG/150 ML BAG IV SCH (00:47)
[2019-02-22 03:39] LABS: Urine Appearance CLEAR; Urine Bilirubin NEGATIVE (NEG); Urine Blood NEGATIVE (NEG); Urine Color YELLOW; Urine Glucose 3+ (NEG); Urine Protein NEGATIVE (NEG); Urine Specific Gravity 1.025 (1.005-1.030)
[2019-02-22 03:43] LABS: Urine Microscopic Reflex ORDER UMIC
[2019-02-22 04:13] LABS: Urine Bacteria 20-50 /HPF (<20); Urine RBC <5 /HPF (NONE SEEN)
[2019-02-22] MEDS ORDERED: VANCOMYCIN 2 GM in NA CHLORIDE 0.9% 500 ML IVPB SCH (05:00)
[2019-02-22 05:39] LABS: BUN Blood Urea Nitrogen 6 mg/dL (7-18); Bicarbonate 27 mmol/L (21-32); Glucose Level 257 mg/dL (74-106); Magnesium 1.8 mg/dL (1.8-2.4); Sodium Level 140 mmol/L (136-145)
[2019-02-22] MEDS: NA CHLORIDE 0.9% 1,000 ML IV SCH (05:46)
[2019-02-22] MEDS: VANCOMYCIN 2 GM in NA CHLORIDE 0.9% 500 ML IVPB SCH ×2 (05:48→18:06)
[2019-02-22] MEDS ORDERED: MAGNESIUM SULFATE 1 gm IVPB 1 GM/100 ML BAG IV ONE (09:00)
[2019-02-22] MEDS: INSULIN GLARGINE 100 UNITS/ML SQ SCH (09:42)
[2019-02-22] MEDS: INSULIN -REGULAR HUMAN 50 UNIT/0.5 ML ML SQ SCH ×4 (09:42→21:23)
[2019-02-22] MEDS: INSULIN LISPRO 100 UNIT/1 ML SQ SCH ×3 (09:43→16:42)
[2019-02-22] MEDS: ENOXAPARIN 40 MG/0.4 ML SQ SCH (09:43)
[2019-02-22] MEDS: MORPHINE 2 MG/ML SYR IV PRN (10:33)
--- NOTE | 2019-02-22 13:33 | P.PN ---
Subjective Date of Service: 02/22/19 Chief Complaint: Abdominal wall Pain and swelling s/p I& D. Pain is somewhat controlled Physical Examination - Vital Signs Temperature: 97.3 F Blood Pressure: 126/73 Pulse: 87 Respirations: 15 Pulse Ox (%): 99 - Physical Exam General: Alert, In no apparent distress HEENT: Atraumatic, PERRLA, EOMI Neck: Supple, JVD not distended Respiratory: Clear to auscultation bilaterally, Normal air movement Cardiovascular: Regular rate/rhythm, Normal S1 S2 Gastrointestinal: Normal bowel sounds, Tenderness (mild. Dressing is intact) Musculoskeletal: No tenderness Integumentary: No rashes Neurological: Normal speech, Normal tone, Normal affect Lymphatics: No axilla or inguinal lymphadenopathy - Studies Reviewed Medications List Reviewed: Yes Assessment And Plan - Plan #Cellulitis of the left upper abdominal wall Continue with IV antibiotics. Cultures are pending #Abscess of the left upper abdominal wall 2.1 cm. S/p incision and drainage by Dr. Ryan. wound cultures pending #Diabetes mellitus type 2 with hyperglycemia, uncontrolled. Hemoglobin A1c is 12.8%. - Continue diabetic education. Adjust insulin dose. -continue long acting - Her pre-meals dose was adjusted yesterday. #Hyperbilirubinemia, likely acute phase reactant. #Morbid obesity. BMI of 41. #Hyponatremia, corrected. Continue to monitor. #Hypokalemia, replace and monitor. #Hypophosphatemia has been corrected. We will continue to monitor. #Deep venous thrombosis prophylaxis. Lovenox Dispo- dc home in a.m
[2019-02-22 17:14] LABS: Basophils % 0.6 % (0-1.3); Hematocrit 33.5 % (36.0-45.0); Lymphocytes % 26.7 % (15.3-44.8); MPV 9.1 fL (7.6-11.3); RBC Red Blood Cell Count 4.23 M/uL (3.86-4.86)
[2019-02-23] MEDS: Levofloxacin 750mg IV 750 MG/150 ML BAG IV SCH (00:30)
[2019-02-23] MEDS: NA CHLORIDE 0.9% 1,000 ML IV SCH (05:05)
[2019-02-23] MEDS: VANCOMYCIN 2 GM in NA CHLORIDE 0.9% 500 ML IVPB SCH (05:08)
[2019-02-23 05:54] LABS: Absolute Lymphocytes (CBC) 1.5 K/uL (0.7-4.9); Basophils % 0.8 % (0-1.3); Hematocrit 31.9 % (36.0-45.0); MPV 9.6 fL (7.6-11.3); RBC Red Blood Cell Count 4.01 M/uL (3.86-4.86)
[2019-02-23 06:07] LABS: BUN Blood Urea Nitrogen 5 mg/dL (7-18); Bicarbonate 27 mmol/L (21-32); Glucose Level 212 mg/dL (74-106); Potassium 4.1 mmol/L (3.5-5.1); Sodium Level 142 mmol/L (136-145)
[2019-02-23 06:30] LABS: Magnesium 1.9 mg/dL (1.8-2.4)
[2019-02-23 06:33] VITALS: BP 99/54; TEMP 97.3
[2019-02-23] MEDS: INSULIN LISPRO 100 UNIT/1 ML SQ SCH (08:05)
[2019-02-23] MEDS: INSULIN GLARGINE 100 UNITS/ML SQ SCH (08:05)
[2019-02-23] MEDS: INSULIN -REGULAR HUMAN 50 UNIT/0.5 ML ML SQ SCH (08:06)
[2019-02-23] MEDS: ENOXAPARIN 40 MG/0.4 ML SQ SCH (08:06)
--- NOTE | 2019-02-23 08:13 | P.DS ---
Admission Date: 02/19/19 Discharge Date: 02/23/19 Disposition: DC HOME/HOME HEALTH CARE Discharge Condition: GOOD Reason for Admission: Abdominal wall Pain and swelling Consultations: General surgeon Procedures: Procedure: Incision and drainage of abdominal wall complex abscess. Hospital Course: Ms Islas is 28 y/o female with history of uncontrolled diabetes who presented to the ER with complaints of LLQ abdominal wall pain. Ultrasound showed 3 cm fluid collection in the abdominal wall. She was initiated on IV antibiotics. General surgeon was consulted for I and D which patient underwent. Wound culture is growing MSSA. Leukocytosis have now resolved and patient is currently afebrile. She has a history of diabetes mellitus, uncontrolled. Hemoglobin A1c was 12.8% . Patient admitted to noncompliance with medical therapy and diet. She has been resumed on insulin therapy along with the metformin. Compliance has been strongly advised. She remained hemodynamically stable for discharge and she will follow up with her PCP and general surgeon outpatient. Vital Signs/Physical Exam: Temp Pulse Resp BP Pulse Ox 97.3 F 82 18 99/54 L 95 02/23/19 04:00 02/23/19 04:00 02/23/19 04:00 02/23/19 04:00 02/23/19 04:00 General: Alert, In no apparent distress HEENT: Atraumatic, PERRLA, EOMI Neck: Supple, JVD not distended Respiratory: Clear to auscultation bilaterally, Normal air movement Cardiovascular: Regular rate/rhythm, Normal S1 S2 Gastrointestinal: Normal bowel sounds, No tenderness Musculoskeletal: No tenderness Integumentary: No rashes, Other (Dressing intact) Neurological: Normal speech, Normal tone, Normal affect Lymphatics: No axilla or inguinal lymphadenopathy Laboratory Data at Discharge: WBC 6.4 K/uL (4.3-10.9) 02/23/19 05:09 Hgb 10.5 g/dL (12.0-15.0) L 02/23/19 05:09 Hct 31.9 % (36.0-45.0) L 02/23/19 05:09 Plt Count 280 K/uL (152-406) 02/23/19 05:09 Sodium 142 mmol/L (136-145) 02/23/19 05:09 Potassium 4.1 mmol/L (3.5-5.1) 02/23/19 05:09 BUN 5 mg/dL (7-18) L 02/23/19 05:09 Creatinine 0.58 mg/dL (0.55-1.3) 02/23/19 05:09 Glucose 212 mg/dL (74-106) H 02/23/19 05:09 Phosphorus 2.9 mg/dL (2.5-4.9) 02/21/19 05:03 Magnesium 1.9 mg/dL (1.8-2.4) 02/23/19 05:09 Total Bilirubin 1.7 mg/dL (0.2-1.0) H 02/20/19 05:15 AST 9 U/L (15-37) L 02/20/19 05:15 ALT 20 U/L (12-78) 02/20/19 05:15 Alkaline Phosphatase 127 U/L (45-117) H 02/20/19 05:15 Home Medications: Doxycycline Hyclate 100 mg PO BID #28 tablet 02/23/19 Insulin Glargine Human [Lantus*] 34 units SQ DAILY #100 ml 02/23/19 Insulin Lispro [Humalog*] 5 unit SQ AC #100 ml 02/23/19 Metformin HCl [Glucophage*] 1,000 mg PO BIDWM #60 tab 02/23/19 New Medications: Doxycycline Hyclate 100 mg PO BID #28 tablet Insulin Glargine Human [Lantus*] 34 units SQ DAILY #100 ml Insulin Lispro [Humalog*] 5 unit SQ AC #100 ml Metformin HCl [Glucophage*] 1,000 mg PO BIDWM #60 tab Diet: ADA Followup: Alexander Ryan MD [ACTIVE - CAN ADMIT] - (please call to make an appointment. )
[2019-02-23 09:01] VITALS: O2SAT 96
== END 2019-02-23 10:49 | disposition home or self-care (01) | DRG 580 ==
LOC: ER 18:40 → ERHOLD 22:52 → 2ND 23:54
PROVIDERS: ADMIT Internal Medicine; ATTEND Hospitalist
PROC: 0J980ZZ Drainage of Abdomen Subcutaneous Tissue and Fascia, Open Approach (ICD-10-PCS; principal; 2019-02-21 13:50)
DX: L02.211 Cutaneous abscess of abdominal wall (principal); E87.1 Hypo-osmolality and hyponatremia; L03.311 Cellulitis of abdominal wall; E11.65 Type 2 diabetes mellitus with hyperglycemia; R79.89 Other specified abnormal findings of blood chemistry; E66.01 Morbid (severe) obesity due to excess calories; E87.6 Hypokalemia; E83.39 Other disorders of phosphorus metabolism; E80.6 Other disorders of bilirubin metabolism; B95.61 Methicillin susceptible Staphylococcus aureus infection as the cause of diseases classified elsewhere
CPT/HCPCS: 36415; 76882; 80048; 80053; 80202; 81003; 81015; 81025; 82947; 83036; 83735; 84100; 84132; 85025; 87040; 87070; 87075; 87077; 87086; 87088; 87186; 87205; 96374; 96375; 99284; J1650; J1815; J2250; J2270; J2405; J2704; J3010; J3475; J7030; J7040

== ENCOUNTER 2019-04-05 12:11 | Inpatient (IN) | payer SELFPAY ==
--- OUTSIDE RECORDS SUMMARY | 2019-04-05 12:14 | XMS REPORT ---
[...] May one Thin once 2017 Lisinopril ND 86403564058 20 MG Orally Active 1 tablet Once a day [place] ND 49015221907 3-0.02 MG Orally Active 1 tablet Once a day Glucometer NDC 0 n/s n/s use as May Active one directed 2017 Alcohol Prep NDC 0 topical twice May Active as directed Pads daily 2017 Metformin HCl NDC 64260450924 500 MG Orally Active 1 tablet Twice a day with meals blood glucose NDC 0 n/s finger stick May Active one test strip once a day 2017 Results No Known Results Summary Purpose eClinicalWorks Submission
--- OUTSIDE RECORDS SUMMARY | 2019-04-05 12:14 | XMS REPORT ---
[...] Medications Results No Known Results Summary Purpose LaTherminicalMST Submission
--- OUTSIDE RECORDS SUMMARY | 2019-04-05 12:17 | XMS REPORT ---
[...] as directed Pads daily 2017 Lisinopril [facility] 65326188851 20 MG Orally Active 1 tablet Once a day Lancets Super NDC 0 n/s finger stick May Active one Thin once 2017 Norethin ND 15436185338 1-20 MG-MCG(24) April Active 1 tablet Johnnie-Eth Orally Once a 2018 Estrad- day [place] ND 06685277889 3-0.02 MG Orally Active 1 tablet Once a day Metformin HCl ND 98269312228 500 MG Orally Active 1 tablet Twice a day with meals Results No Known Results Summary Purpose eClinicalWorks Submission
--- OUTSIDE RECORDS SUMMARY | 2019-04-05 12:17 | XMS REPORT ---
[...] End Status Dosage System Date Date Norethin [facility] 78148324093 1-20 MG-MCG(April Active 1 tablet Johnnie-Eth Orally Once a 2018 Estrad- day Lisinopril ND 88592400606 20 MG Orally Active 1 tablet Once a day Loryna [facility] 73894799502 3-0.02 MG Orally Active 1 tablet Once a day Lancets Super NDC 0 n/s finger stick May Active one Thin once 2017 Alcohol Prep NDC 0 topical twice May Active as directed Pads daily 2017 Metformin HCl ND 96805883275 500 MG Orally Active 1 tablet Twice a day with meals blood glucose NDC 0 n/s finger stick May Active one test strip once a day 2017 Results No Known Results Summary Purpose eClinicalWorks Submission
--- OUTSIDE RECORDS SUMMARY | 2019-04-05 12:17 | XMS REPORT ---
:1990 [facility] [address] [place] [address] Care Team Providers Name Role Phone Unavailable [...] Comments GLUBED (test code=GLUBED) 92 mg/dL 65-110 [id number] 23:29:00 Test Item Value Reference Range Comments GLUBED (test code=GLUBED) 98 mg/dL 65-110 [id number] 06:39:00 Test Item Value Reference Range Comments GLUBED (test code=GLUBED) 94 mg/dL 65-110 [id number] 22:51:00 Test Item Value Reference Range Comments GLUBED (test code=GLUBED) 112 mg/dL 65-110 [id number] 19:02:00 Test Item Value Reference Range Comments GLUBED (test code=GLUBED) 76 mg/dL 65-110 [id number] 13:24:00 Test Item Value Reference Range Comments GLUBED (test code=GLUBED) 80 mg/dL 65-110 [id number] 07:43:00 Test Item Value Reference Range Comments GLUBED (test code=GLUBED) 86 mg/dL 65-110 [id number] 21:39:00 Test Item Value Reference Range Comments GLUBED (test code=GLUBED) 111 mg/dL 65-110 [id number] 18:57:00 Test Item Value Reference Range Comments GLUBED (test code=GLUBED) 103 mg/dL 65-110 CHEMISTRY 7 [id number] 13:47:00 Test Item Value Reference Range Comments [...] (test code=CA) 8.5 mg/dL 8.4-10.2 CBC W/AUTO [id number] 13:29:00 Test Item Value Reference Range Comments [...] REQUIRED (test code=PLTMR) NORMAL NORMAL SOFT TISSUE,NOT DANNIE/MASS/[id number] 13:23:00 RUN DATE: 12/21/18 [facility] PAGE 1 RUN TIME: 1410 Specimen Inquiry RUN USER: INTERFACE PATIENT: SOHAIL THOMPSON LOC: JOSE #: [id number] AGE/SX: 28/F ROOM: [facility] RE07/28REG DR: Arpan Min MD : [birth year] BED: A DIS: STATUS: ADM IN TLOC: SPEC #: [id number] RECD: 12/20/18 STATUS: OLEGARIO WHITESIDE #: [id number] ARELIS: 12/17/18- SUBM DR: Arpan Min MD ENTERED: 12/20/18 SP TYPE: SOFTNOTMLD OTHR DR: Jesús Lord MD, Jill C MD Nasser, Dean A MDORDERED: LEVEL IV CODES: [id number] - SOFT TISSUES , N COPIES TO: Jesús Lord MD [address] [facility] [address] [place], [place] [id number] Lianet Weir MD [address] [facility] [address] [place], [place] [id number] [email or web address] Kristofer Gó[place] [address] [employer], [place] [id number] Arpan Min MD [address] [facility] [address] [place], [place] [id number] PROCEDURES: LEVEL IV (Incomplete) TISSUES: SOFT TISSUES, NOS - EPIPLOACA WITH ABSCESS/SIGMOID/UTERUS,CERVIX,TUBES AND OVARIES CLINICAL HISTORY 28 year old, tubo-ovarian abscess (kr) CONTINUED ON NEXT PAGE RUN DATE: 12/21/18 [facility] PAGE 2 RUN TIME: 1410 Specimen Inquiry RUN USER: INTERFACE-- SPEC #: [id number] PATIENT: SOHAIL THOMPSON # [id number] (Continued) FINAL DIAGNOSIS Epiploica with abscess, excision: [...] adhesions, and ovarian serosal abscesses CPT code(s): 25920 x2, 73999 [facility] 12/21/18 GROSS DESCRIPTION ANATOMIC SOURCE OF TISSUE [...] Specimen Inquiry RUN USER: INTERFACE SPEC #: [id number] PATIENT: SOHAIL THOMPSON #[id number] (Continued) GROSS DESCRIPTION (Continued) areas of induration, fibrosis and possible fat necrosis. Section code: B1 - donuts, B2 through B6 - route service representative sections of bowel with possible diverticular [...] - serosal adhesions, C5 and C6 - route service representative sections of small adnexa, C7 through C9 - route service representative sections of large adnexa. diana 12/20/18 @ 1125 Signed ____ Diana James MD 12/21/18 1323 END OF REPORT [id number] 13:17:00 Test Item Value Reference Range Comments GLUBED (test code=GLUBED) 89 mg/dL 65-110 - XR ABDOMEN [id number] 10:26:00 Patient Name: SOHAIL THOMPSON Unit No: [id number] EXAMS: CPT CODE: [id number] XR ABDOMEN 2V 18206 ABDOMINAL RADIOGRAPHS-ERECT AND SUPINE COMPARISON: CT abdomen [...] Technologist: RT Dom Trnscrbd D/ (1026 ) t.[email or web address] Orig Print D/T: S: 12/21/2018 (1026) [facility] NAME: SOHAIL THOMPSON Radiology Department PHYS: Arpan Wallace MD [address] : 1990 AGE: 28 SEX: F [place], [place] [address] LOC: [phone] A PHONE #: EXAM DATE: 12/21/2018 STATUS: ADM INFAX #: [phone] RAD NO: Page 1 Signed [id number] 06:40:00 Test Item Value Reference Range Comments GLUBED (test code=GLUBED) 117 mg/dL 65-110 [id number] 00:48:00 Test Item Value Reference Range Comments GLUBED (test code=GLUBED) 153 mg/dL 65-110 [id number] 18:32:00 Test Item Value Reference Range Comments GLUBED (test code=GLUBED) 83 mg/dL 65-110 [id number] 12:58:00 Test Item Value Reference Range Comments GLUBED (test code=GLUBED) 153 mg/dL 65-110 CHEMISTRY 7 [id number] 05:45:00 Test Item Value Reference Range Comments [...] (test code=CA) 8.1 mg/dL 8.4-10.2 CBC W/AUTO [id number] 05:30:00 Test Item Value Reference Range Comments [...] PLATELET MORPHOLOGY REQUIRED (test code=PLTMR) NORMAL NORMAL [id number] 00:18:00 Test Item Value Reference Range Comments GLUBED (test code=GLUBED) 107 mg/dL 65-110 [id number] 18:27:00 Test Item Value Reference Range Comments GLUBED (test code=GLUBED) 144 mg/dL 65-110 [id number] 12:13:00 Test Item Value Reference Range Comments GLUBED (test code=GLUBED) 126 mg/dL 65-110 [id number] 08:47:00 Test Item Value Reference Range Comments MAGNESIUM (test code=MAG) 1.8 mg/dL 1.8-2.4 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[employer]: DO ON BLOOD IN LAB-- DRAWN THIS AMSpecimen Comment: BLOOD IN LAB.CHEMISTRY 7 [id number] 05:19:00 Test Item Value Reference Range Comments [...] (test code=CA) 7.5 mg/dL 8.4-10.2 CBC W/AUTO [id number] 05:06:00 Test Item Value Reference Range Comments [...] PLATELET MORPHOLOGY REQUIRED (test code=PLTMR) NORMAL NORMAL [id number] 00:47:00 Test Item Value Reference Range Comments GLUBED (test code=GLUBED) 159 mg/dL 65-110 [id number] 21:14:00 Test Item Value Reference Range Comments C-PEPTIDE (test code=CPEP) 2.9 ng/mL 1.1-4.4 C-Peptide reference interval is for fasting patients.Performed At: [facility] [address] [id number] Rosa MD Ph:[phone] [id number] 21:14:00 Test Item Value Reference Range Comments INSULIN (test code=INS) 22.1 uIU/mL 2.6-24.9 Performed At: [facility] [address] [id number] Rosa MD Ph:[phone] [id number] 18:25:00 Test Item Value Reference Range Comments GLUBED (test code=GLUBED) 134 mg/dL 65-110 [id number] 12:38:00 Test Item Value Reference Range Comments GLUBED (test code=GLUBED) 137 mg/dL 65-110 COMPREHENSIVE METABOLIC [id number] 05:57:00 Test Item Value Reference Range Comments [...] PHOSPHATASE TOTAL (test code=ALKP) 69 units/L 46-116 [id number] 05:57:00 Test Item Value Reference Range Comments MAGNESIUM (test code=MAG) 1.0 mg/dL 1.8-2.4 RESULTS CALLED TO ZAC MENDOZA.READ BACK & CONFIRMED? Y.BY YUE 12/18/18 0557. RESULTS VERIFIED BY REPEAT ANALYSIS CBC W/AUTO [id number] 05:13:00 Test Item Value Reference Range Comments [...] PLATELET MORPHOLOGY REQUIRED NORMAL NORMAL (test code=PLTMR) [id number] 00:21:00 Test Item Value Reference Range Comments GLUBED (test code=GLUBED) 280 mg/dL 65-110 CHEMISTRY 7 [id number] 23:10:00 Test Item Value Reference Range Comments [...] (test code=CA) 7.1 mg/dL 8.4-10.2 CBC W/AUTO [id number] 18:05:00 Test Item Value Reference Range Comments WHITE BLOOD CELL (test 28.6 K/mm3 6.6-12.1 RESULTS VERIFIED BY REPEAT code=WBC) ANALYSISRESULTS CALLED TO KRISHNA .READ BACK & CONFIRMED? Y.BY FSILVIANO.RV 12/17/18 2173. RED BLOOD CELL (test 5.23 M/mm3 3.45-5.01 [...] MORPHOLOGY REQUIRED NORMAL NORMAL (test code=PLTMR) WBC [id number] 18:05:00 Test Item Value Reference Range Comments TOTAL CELLS COUNTED (test code=TCC) 100 #CELLS SEGMENTED NEUTROPHILS (test code=SEG) 88 % 56.5-79.4 BAND NEUTROPHIL (test code=BAND) 4 % 0-5 LYMPHOCYTE (test code=LYMPH) 6 % 20-40 MONOCYTE (test code=MON) 2 % 0-8 PLATELET ESTIMATE (test code=PLTEST) ADEQUATE ADEQ PLATELET MORPHOLOGY (test code=PLTMORPH) NORMAL NORMAL CHEMISTRY 7 [id number] 17:48:00 Test Item Value Reference Range Comments [...] (test code=CA) 7.5 mg/dL 8.4-10.2 CBC W/AUTO [id number] 17:32:00 Test Item Value Reference Range Comments [...] PLATELET MORPHOLOGY REQUIRED NORMAL (test code=PLTMR) WBC [id number] 17:32:00 Test Item Value Reference Range Comments SEGMENTED NEUTROPHILS (test code=SEG) % 56.5-79.4 LYMPHOCYTE (test code=LYMPH) % 20-40 CBC W/AUTO [id number] 17:32:00 Test Item Value Reference Range Comments [...] PLATELET MORPHOLOGY REQUIRED NORMAL (test code=PLTMR) WBC [id number] 17:32:00 Test Item Value Reference Range Comments SEGMENTED NEUTROPHILS (test code=SEG) % 56.5-79.4 LYMPHOCYTE (test code=LYMPH) % 20-40 [id number] 14:59:00 Test Item Value Reference Range Comments GLUBED (test code=GLUBED) 288 mg/dL 65-110 [id number] 06:04:00 Test Item Value Reference Range Comments GLUBED (test code=GLUBED) 201 mg/dL 65-110 URINALYSIS [id number] 03:54:00 Test Item Value Reference Range Comments [...] SAMPLE: CLEAN CATCHComment URINE WITH CULTUREUR HCG [id number] 03:54: 00 Test Item Value Reference Range Comments UR HCG QUAL (test NEGATIVE 1. Very dilute urine specimens, as code=HCGQLU) indicated by a lowspecific gravity, may not contain route service representative levels ofhCG. 2. False negative results may occur when the levels of hCGare below the sensitivity level of the test. If is still suspected, a first morningurine specimen should be collected 48 hours later andtested. URINE SAMPLE: CLEAN CATCHComment URINE WITH CULTUREURINALYSIS [id number] 03:38:00 Test Item Value Reference Range [...] SAMPLE: CLEAN CATCHComment URINE WITH CULTUREUR HCG [id number] 03:38: 00 Test Item Value Reference Range Comments UR HCG QUAL (test NEGATIVE 1. Very dilute urine specimens, as code=HCGQLU) indicated by a lowspecific gravity, may not contain route service representative levels ofhCG. 2. False negative results may occur when the levels of hCGare below the sensitivity level of the test. If is still suspected, a first morningurine specimen should be collected 48 hours later andtested. URINE SAMPLE: CLEAN CATCHComment URINE WITH [id number] 22:09:00 Test Item Value Reference Range Comments GLUBED (test code=GLUBED) 263 mg/dL 65-110 Phsician Notified [id number] 17:08:00 Test Item Value Reference Range Comments GLUBED (test code=GLUBED) 286 mg/dL 65-110 [id number] 15:28:00 Test Item Value Reference Range Comments CREATININE (test code=CREAT) 0.9 mg/dL 0.5-1.0 IS THIS A ONCE DAILY SINGLE DOSE? YESDATE OF LAST DOSE: 12/16/18TIME OF LAST DOSE: [id number] 15:28:00 Test Item Value Reference Range Comments GENTAMICIN (test code=GENT) 0.8 mcg/mL 0-14 Adult normal range for once daily dose of Gentamicin may beup to 24 mcg/mL. Gentamicin results must be correlated withthe time the dose was administered. IS THIS A ONCE DAILY SINGLE DOSE? YESDATE OF LAST DOSE: 12/16/18TIME OF LAST DOSE: [id number] 13:24:00 Test Item Value Reference Range Comments GLUBED (test code=GLUBED) 274 mg/dL 65-110 HCG [id number] 12:13:00 Test Item Value Reference Range Comments [...] THE ROOM AT THIS TIME. PHLEB/RBCHEMISTRY 7 [id number] 12:11: 00 Test Item Value Reference Range [...] IN THE ROOM AT THIS TIME. @ 11654UQ TRY 1018 AM. PHLEB/RBCBC W/AUTO [id number] 11:40:00 Test Item Value Reference Range Comments [...] NORMAL COME BACK LATER- CT ABD PELVIS [id number] 11:01:00 Patient Name: SOHAIL THOMPSON Unit No: [id number] EXAMS: CPT CODE: [id number] CT ABD PELVIS W/CONT 33287 Exam: CT scan of the abdomen and [...] wall demonstrates no significant abnormalities. IMPRESSION: [facility] NAME: SOHAIL THOMPSON Radiology Department PHYS: Arpan Wallace MD [address] : 1990 AGE : 28 SEX: F [place] [address] LOC : F.4672 A PHONE #: [phone] EXAM DATE: 12/16/2018 STATUS : ADM IN FAX #: [phone] RAD NO: Page 1 Signed Report 1 Patient Name: SOHAIL THOMPSON Unit No: [id number] EXAMS: CPT CODE: [id number] CT ABD PELVIS W/CONT 32171 <Continued> Bilateral adnexal masses as described above. The patient gives a history of abscess drainage at [facility] October 05, 2018. She describes having drains and drainage bags on either side. The findings in the adnexal region may be sequela of this procedure. Prior images have been requested. at 1101 Reported and signed by: Charissa Arreola MD CC: Lianet Weir Technologist: Sarthak Coleman, RT, CT CTDI: 21.83 DLP: 1880.60 Trnscrbd D/ (1101) t.SDR.[facility] NAME: DONNASOHAIL Radiology Department PHYS: Arpan Wallace MD [address] : 1990 AGE: 28 SEX: F [place] [address] LOC: F.4672 A PHONE #: [phone] EXAM DATE: 12/16/2018 STATUS: ADM IN FAX #:[phone] RAD NO: Page 2 Signed Report 1 Patient Name: SOHAIL THOMPSON Unit No: [id number] EXAMS : CPT CODE: [id number] CT ABD PELVIS W/CONT 99254 <Continued> Orig Print D/T: S: 12/16/2018 (1104) [facility] NAME: DONNAJOSE ALEJANDRO MAYNARDINA Radiology Department PHYS: Arpan Wallace MD[address] : 1990 AGE: 28 SEX: F [place], [place] [address] LOC: [id number] A PHONE #: [phone] EXAM DATE: 12/16/2018 STATUS: ADM IN FAX #: [phone] RAD NO: Page 3 Signed Report [id number] 07:07:00 Test Item Value Reference Range Comments GLUBED (test code=GLUBED) 241 mg/dL 65-110 CREATINE KINASE (CK)2018-12-15 19:52:00 Test Item Value Reference Range Comments CREATINE KINASE (CK) (test code=CK) 60 Units/L 26-192 [id number] 16:55:00 Test Item Value Reference Range Comments GLUBED (test code=GLUBED) 339 mg/dL 65-110 Phsician Notified GLYCOSYLATED HEMOGLOBIN [id number] 11:01:00 Test Item Value Reference Range Comments [...] (test 217 MG/DL 70-110 code=MBG) COMPREHENSIVE METABOLIC [id number] 11:01:00 Test Item Value Reference Range Comments [...] TOTAL (test code=ALKP) 103 units/L 46-116 T4 [id number] 11:01:00 Test Item Value Reference Range Comments T4 FREE (test code=T4F) 1.24 ng/dL 0.76-1.46 THYROID STIMULATING [id number] 11:01:00 Test Item Value Reference Range Comments [...] as fructosamineshould be considered for these patients. [id number] 10:19:00 Test Item Value Reference Range Comments GLUBED (test code=GLUBED) 290 mg/dL 65-110 Phsician Notified COMPREHENSIVE METABOLIC [id number] 07:23:00 Test Item Value Reference Range Comments [...] TOTAL (test code=ALKP) 103 units/L 46-116 T4 [id number] 07:23:00 Test Item Value Reference Range Comments T4 FREE (test code=T4F) 1.24 ng/dL 0.76-1.46 THYROID STIMULATING [id number] 07:23:00 Test Item Value Reference Range Comments THYROID STIMULATING HORMONE 3.27 0.36-3.74 Test Performed in (test code=TSH) MicroInternational Units/mL GLYCOSYLATED HEMOGLOBIN (HA1C)2018-12-15 07:23:00 Test Item Value Reference Range Comments GLYCOSYLATED HEMOGLOBIN (HA1C) (test code=GLYHGB) [id number] 06:04:00 Test Item Value Reference Range Comments GLUBED (test code=GLUBED) 308 mg/dL 65-110 Phsician Notified COMPREHENSIVE METABOLIC [id number] 05:10:00 Test Item Value Reference Range Comments [...] (test code=ALKP) 103 units/L 46-116 THYROID STIMULATING [id number] 05:10:00 Test Item Value Reference Range Comments THYROID STIMULATING HORMONE 3.27 0.36-3.74 Test Performed in (test code=TSH) MicroInternational Units/mL GLYCOSYLATED HEMOGLOBIN (HA1C)2018-12-15 05:10:00 Test Item Value Reference Range Comments GLYCOSYLATED HEMOGLOBIN (HA1C) (test code=GLYHGB) LACTIC [id number] 04:53:00 Test Item Value Reference Range Comments LACTIC ACID (test code=LACT) 1.5 MMOL/L 0.5-2.2 CBC W/AUTO [id number] 04:30:00 Test Item Value Reference Range Comments [...] code=PLTMR) NORMAL NORMAL - CT HEAD/BRAIN W/O [id number] 04:27:00 Patient Name: SOHAIL THOMPSON Unit No: [id number] EXAMS: CPT CODE : [id number] CT HEAD/BRAIN W/O CONT 41778 EXAM: CT, CT HEAD/BRAIN W/O CONTRAST; 12/15/2018, [...] mass, acute hemorrhage or subacute stroke. SL: JSKITTY [facility] NAME: DONNASOHAIL Radiology Department PHYS: Lianet Morrow MD [address] : 1990 AGE: 28 SEX: F [place], [place] [address] LOC: F.4672 A PHONE #: [phone] EXAM DATE: 12/15/2018 STATUS: ADM IN FAX #: [phone] RAD NO: Page 1 Signed Report 1 Patient Name: SOHAIL THOMPSON UnitNo: [id number] EXAMS: CPT CODE: [id number] CT HEAD/BRAIN W/O CONT 51524 <Continued> at 0427 Reported and signed by: Paul Barreto M.D. CC: Lianet Weir Technologist: JENNI MEDINA, RT CTDI : 53.12 DLP: 879.86 Trnscrbd D/ (0427) AdeliaJS38 [facility] NAME:DONNASOHAIL Radiology Department PHYS: Lianet Morrow MD [address] : 1990 AGE: 28 SEX: F [place], [place] [address] LOC: F.4672 A PHONE #: [phone] EXAM DATE: 12/15/2018 STATUS: ADM IN FAX #: [phone] RAD NO: Page 2 Signed Report 1 Patient Name: SOHAIL THOMPSON Unit No: [id number] EXAMS: CPT CODE: [id number] CT HEAD/BRAIN W/O CONT 52132 <Continued> Orig Print D/T: S: 12/15/2018 (0430) [facility] NAME: SOHAIL THOMPSON Radiology DepartmentPHYS: Lianet Morrow MD [address] : 1990 AGE : 28 SEX: F [place], [place] [address] LOC: F.4672 A PHONE #: [phone] EXAM DATE: 12/15/2018 STATUS: ADM IN FAX #: [phone] RAD NO: Page 3 Signed Report 1
[2019-04-05] MEDS ORDERED: ONDANSETRON 4 MG/2 ML VIAL ONE (12:52)
[2019-04-05] MEDS ORDERED: MORPHINE 2 MG/ML SYR ONE (12:52)
[2019-04-05] MEDS ORDERED: CLINDAMYCIN 600MG/D5W 600 MG/50 ML BAG IV ONE (12:52)
[2019-04-05] MEDS ORDERED: VANCOMYCIN/NS 1 gm 1 GM/250 ML BAG IV ONE (13:00)
[2019-04-05 13:13] LABS: Absolute Lymphocytes (CBC) 2.2 K/uL (0.7-4.9); Basophils % 0.5 % (0-1.3); MPV 9.8 fL (7.6-11.3); RBC Red Blood Cell Count 5.12 M/uL (3.86-4.86)
[2019-04-05 13:31] LABS: Albumin 3.4 g/dL (3.4-5.0); Bilirubin Direct 0.2 mg/dL (0-0.2); Potassium 3.4 mmol/L (3.5-5.1); Protein, Total 9.5 g/dL (6.4-8.2)
--- NOTE | 2019-04-05 15:45 | RAD REPORT ---
EXAM DESCRIPTION: CT - Abdomen Pelvis W Contrast - 04/05/2019 3:02 pm CLINICAL HISTORY: labial abscess COMPARISON: Abdomen Pelvis W Contrast dated 12/14/2018 TECHNIQUE: Biphasic, helical CT imaging of the abdomen and pelvis was performed following 100 ml non -ionic IV contrast. No oral contrast administered. All CT scans are performed using dose optimization technique as appropriate and may include automated exposure control or mA/KV adjustment according to patient size. FINDINGS: No suspicious findings in the lung bases. Diffuse fatty infiltration noted in the liver. No focal liver lesion. Spleen and pancreas show no kana picious findings. Gallbladder and biliary tree are also without suspicious finding. Symmetric renal function is seen with no hydronephrosis or suspicious renal mass. No pyelonephritis o r acute parenchymal process. Urinary bladder is tightly contracted limiting assessment. No adrenal ab normalities. Uterus is absent. Ovaries are absent or atrophic. No adnexal abnormality. No gastric dilatation or wall thickening. No acute small bowel finding. No appendicitis findings. Juan Carlos endectomy clips appear to be present. Rectosigmoid anastomotic site is present with no acute finding. Moderate stool volume distends the rectum. There is an overall moderate stool volume in the colon. No peritoneal free air or free fluid. There is significant edematous/ inflammatory stranding in the l abia primarily left side. There is stranding in the adjacent fatty tissues. This is homogeneous soft tissue attenuation. No clearly defined abscess or drainable fluid collection seen. More posteriorly t he fat of the perineum is without significant finding. No perianal abscess or stranding. No mass or bulky lymphadenopathy. Postsurgical changes are noted to the anterior abdominal wall. No suspicious bony findings. IMPRESSION: Infectious/inflammatory changes involve the labia primarily on the left side with strand ing in the adjacent fat. No defined or drainable fluid collections seen within this infectious/inflammatory process. No peritoneal or retroperitoneal component. Diffuse fatty infiltration of the liver.
[2019-04-05] MEDS ORDERED: INSULIN -REGULAR HUMAN 50 UNIT/0.5 ML ML ONE (15:48)
[2019-04-05] MEDS ORDERED: METRONIDAZOLE 500mg IVPB 500 MG/100 ML BAG IV ONE (15:58)
--- NOTE | 2019-04-05 17:02 | ER ---
Nurse's Notes [facility] Name: Stacy Islas Age: 28 yrs Sex: Female : 1990 Arrival Date: 04/05/2019 Time: 12:13 Bed 19 Private MD: Diagnosis: Cellulitis of perineum;Hyperglycemia, unspecified Presentation: 04/05 12:14 Transition of care: patient was not received from another setting of care. Care prior sv to arrival: None. 12:14 Method Of Arrival: Ambulatory sv 12:14 Acuity: VENTURA 3 sv 12:14 Presenting complaint: Patient states: labia abscess started 3 days ago. Has attempted sv to vidhya is ETL CONSULTANT but was unsuccessful. Onset of symptoms was April 02, 2019. 12:16 Initial Sepsis Screen: Does the patient meet any 2 criteria? No. Patient's initial sv sepsis screen is negative. Does the patient have a suspected source of infection? Yes: Skin breakdown/wound. 17:59 Risk Assessment: Do you want to hurt yourself or someone else? Patient reports no tw2 desire to harm self or others. Triage Assessment: 12:17 General: Appears in no apparent distress. uncomfortable, Behavior is calm, cooperative, sv appropriate for age. Pain: Complains of pain in pelvis. Neuro: Level of Consciousness is awake, alert, obeys commands, Oriented to person, place, time, situation, Moves all extremities. Respiratory: Respiratory effort is even, labored. CONTROL AND [employer]OVERY [employer] TACTICS: 13:21 LMP N/A - Hysterectomy tw2 Historical: - Allergies: 12:14 Zosyn; sv 12:14 tazobactam; sv - Home Meds: 13:22 Lantus Sub-Q [Active]; Novolog Sub-Q [Active]; tw2 - PMHx: 12:14 Diabetes - IDDM; sv - PSHx: 12:14 Hysterectomy; sv - Immunization history:: Adult Immunizations. - Coronavirus screen:: The patient has NOT traveled to [place] in the past 14 days. - Social history:: Smoking status: . - Ebola Screening: : Patient denies travel to an Ebola-affected area in the 21 days before illness onset. Screenin:21 Abuse screen: Denies threats or abuse. Nutritional screening: No deficits noted. tw2 Tuberculosis screening: No symptoms or risk factors identified. Fall Risk None identified. Assessment: 12:20 General: Appears in no apparent distress. obese, Behavior is calm, cooperative, tw2 appropriate for age. Pain: Complains of pain in pelvis. Neuro: Level of Consciousness is awake, alert, obeys commands, Oriented to person, place, time, situation. Cardiovascular: Heart tones S1 S2 Patient's skin is warm and dry. Respiratory: Airway is patent Respiratory effort is even, unlabored, Respiratory pattern is regular, symmetrical, Breath sounds are clear bilaterally. GI: No signs and/or symptoms were reported involving the gastrointestinal system. Abdomen is round non-distended, obese, Bowel sounds present X 4 quads. : Reports pain on outer vaginal area per pts. EENT: No signs and/or symptoms were reported regarding the EENT system. Derm: No signs and/or symptoms reported regarding the dermatologic system. Musculoskeletal: Range of motion: intact in all extremities. 13:20 Reassessment: Patient appears in no apparent distress at this time. No changes from tw2 previously documented assessment. Patient and/or family updated on plan of care and expected duration. Pain level reassessed. Patient is alert, oriented x 3, equal unlabored respirations, skin warm/dry/pink. 14:35 Reassessment: Patient appears in no apparent distress at this time. No changes from tw2 previously documented assessment. Patient and/or family updated on plan of care and expected duration. Pain level reassessed. Patient is alert, oriented x 3, equal unlabored respirations, skin warm/dry/pink. 15:25 Reassessment: Patient appears in no apparent distress at this time. No changes from tw2 previously documented assessment. Patient and/or family updated on plan of care and expected duration. Pain level reassessed. Patient is alert, oriented x 3, equal unlabored respirations, skin warm/dry/pink. 15:26 Reassessment: Dr. Torres at bedside at this time. left labia appears to have a large tw2 abscess that is swollen and red, pt reports it is very painful, pt also has redness and swelling noted to mons pubis area, pt also had redness and swelling to right side of abdomen. 15:50 Reassessment: vancomycin abx still infusing at this time. tw2 16:30 Reassessment: Patient appears in no apparent distress at this time. No changes from tw2 previously documented assessment. Patient and/or family updated on plan of care and expected duration. Pain level reassessed. Patient is alert, oriented x 3, equal unlabored respirations, skin warm/dry/pink. 17:48 Reassessment: Patient appears in no apparent distress at this time. No changes from tw2 previously documented assessment. Patient and/or family updated on plan of care and expected duration. Pain level reassessed. Patient is alert, oriented x 3, equal unlabored respirations, skin warm/dry/pink. 18:50 Reassessment: Patient appears in no apparent distress at this time. No changes from tw2 previously documented assessment. Patient and/or family updated on plan of care and expected duration. Pain level reassessed. Patient is alert, oriented x 3, equal unlabored respirations, skin warm/dry/pink. 19:33 Reassessment: called but nurse is still doing hand over. mg2 Vital Signs: 12:15 BP 111 / 73; Pulse 91; Resp 16; Temp 98(O); Pulse Ox 100% ; Weight 106.14 kg; Height 5 sv ft. 3 in. (160.02 cm); 13:23 BP 134 / 65; Pulse 89; Resp 17; Pulse Ox 99% on R/A; tw2 14:36 BP 129 / 75; Pulse 88; Resp 17; Pulse Ox 96% on R/A; tw2 15:53 BP 116 / 69; Pulse 89; Resp 17; Temp 98.9(O); Pulse Ox 98% on R/A; mh5 17:16 BP 102 / 68; Pulse 96; Resp 17; Temp 99.0(O); Pulse Ox 97% on R/A; mh5 18:20 BP 111 / 62; Pulse 89; Resp 17; Pulse Ox 97% on R/A; tw2 20:11 BP 120 / 62; Pulse 84; Resp 18; Temp 98; Pulse Ox 97% on R/A; mg2 12:15 Body Mass Index 41.45 (106.14 kg, 160.02 cm) sv ED Course: 12:13 Patient arrived in ED. sv 12:14 Triage completed. sv 12:14 Arm band placed on. sv 12:20 Placed in gown. Bed in low position. Call light in reach. Adult w/ patient. Warm tw2 blanket given. 12:29 GyaatriRajeev kaufman, MD is Attending Physician. tw4 12:42 Elmira Leon, RN is Primary Nurse. tw2 13:00 Initial lab(s) drawn, by nm, sent to lab. First set of blood cultures drawn by me, 5 Second set of blood cultures drawn by nm. 13:21 Inserted saline lock: 22 gauge in right antecubital area, using aseptic technique. mh5 Blood collected. 13:22 Patient has correct armband on for positive identification. Placed in gown. Bed in low mh5 position. Call light in reach. Side rails up X 1. Adult w/ patient. Warm blanket given. Pulse ox on. NIBP on. 15:02 CT Abd/Pelvis - IV Contrast Only In Process Unspecified. EDMS 15:32 served as house decorator for external vaginal examination at this time with Dr. Torres. tw2 16:59 Ricci Bauer is Hospitalizing Provider. tw4 17:24 served as house decorator for external vaginal examination with Dr. Ryan at this time. tw2 19:00 Report given to JEFF Sheth. tw2 20:12 Patient admitted, IV remains in place. mg2 Administered Medications: 13:06 Drug: Zofran 4 mg Route: IVP; Site: right antecubital; tw2 13:40 Follow up: Response: No adverse reaction tw2 13:08 Drug: morphine 2 mg Route: IVP; Site: right antecubital; tw2 14:00 Follow up: Response: No adverse reaction; Pain is decreased tw2 13:10 Drug: Clindamycin 600 mg Route: IVPB; Infused Over: 30 mins; Site: right antecubital; tw2 13:39 Follow up: Response: No adverse reaction; IV Status: Completed infusion tw2 13:39 Drug: vancoMYCIN 1 grams Route: IVPB; Infused Over: 2 hrs; Site: right antecubital; tw2 16:35 Follow up: Response: No adverse reaction; IV Status: Completed infusion tw2 15:50 Drug: Insulin Regular Human 10 units {Co-Signature: tw2 (Elmira Leon RN).} Route: IVP; em Site: right antecubital; 16:28 Follow up: Response: No adverse reaction; Blood sugar is lowered tw2 16:40 Drug: Flagyl 500 mg Volume: 100 ml; Route: IVPB; Rate: 200 ml/hr; Infused Over: 30 tw2 mins; Site: right antecubital; 17:08 Follow up: Response: No adverse reaction; IV Status: Completed infusion tw2 Outcome: 16:59 Decision to Hospitalize by Provider. tw4 20:12 Admitted to Tele accompanied by tech, via wheelchair, room 419, with chart, Report mg2 called to JEFF parrish 20:12 Condition: stable 20:12 Instructed on the need for admit, Demonstrated understanding of instructions. 20:34 Patient left the ED. mg2 Signatures: Dispatcher [employer] Radha Ramirez RN RN sv Garret Rayo RN RN em Elmira Leon RN RN tw2 Malini Ryan 5 Rajeev Mendieta MD MD tw4 David Ruiz RN RN mg2 Elmira Leon RN tw2 Corrections: (The following items were deleted from the chart) 12:17 12:14 Presenting complaint: Patient states: vaginal abscess started 3 days ago. sv sv 12:17 12:15 Pulse 91bpm; Resp 16bpm; Pulse Ox 100%; Temp 98F Oral; 106.14 kg; Height 5 ft. 3 sv in.; BMI: 41.4; sv 15:34 15:26 Reassessment: Dr. Novak at bedside at this time. tw tw 17:58 15:26 Reassessment: Dr. Torres at bedside at this time. tw2 tw2
--- NOTE | 2019-04-05 17:03 | EDPHYS ---
Physician Documentation [facility] Name: Stacy Islas Age: 28 yrs Sex: Female : 1990 Arrival Date: 04/05/2019 Time: 12:13 Bed 19 Private MD: ED Physician Rajeev Mendieta HPI: 04/05 18:02 This 28 yrs old Female presents to ER via Ambulatory with complaints of tw4 Abscess. 18:02 The patient presents with cellulitis of the groin. Description: The affected area is tw4 moderate sized, irregular, erythematous. Onset: The symptoms/episode began/occurred 4 day(s) ago. 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 - Coronavirus screen:: The patient has NOT traveled to [place] in the past 14 days. - Social history:: Smoking status: . - Ebola Screening: : Patient denies travel to an Ebola-affected area in the 21 days before illness onset. ROS: 18:05 Constitutional: Negative for fever, chills, and weight loss, Eyes: Negative for injury, tw4 pain, redness, and discharge, Cardiovascular: Negative for chest pain, palpitations, and edema, Respiratory: Negative for shortness of breath, cough, wheezing, and pleuritic chest pain, Abdomen/GI: Negative for abdominal pain, nausea, vomiting, diarrhea, and constipation, Back: Negative for injury and pain, MS/Extremity: Negative for injury and deformity. 18:05 Skin: Positive for abscess, burn, erythema, swelling, of the left labia majora and left labia minora, Negative for abrasions, avulsion, burn, diaphoresis, discoloration, ecchymosis, hematoma, jaundice, laceration(s), lesions, pallor, puncture, rash. Exam: 18:05 Constitutional: This is a well developed, well nourished patient who is awake, alert, tw4 and in no acute distress. Head/Face: Normocephalic, atraumatic. Chest/axilla: Normal chest wall appearance and motion. Nontender with no deformity. No lesions are appreciated. Cardiovascular: Regular rate and rhythm with a normal S1 and S2. No gallops, murmurs, or rubs. Normal PMI, no JVD. No pulse deficits. Respiratory: Lungs have equal breath sounds bilaterally, clear to auscultation and percussion. No rales, rhonchi or wheezes noted. No increased work of breathing, no retractions or nasal flaring. 18:05 : Pelvic Exam: External exam: erythema is noted. Vital Signs: 12:15 BP 111 / 73; Pulse 91; Resp 16; Temp 98(O); Pulse Ox 100% ; Weight 106.14 kg; Height 5 sv ft. 3 in. (160.02 cm); 13:23 BP 134 / 65; Pulse 89; Resp 17; Pulse Ox 99% on R/A; tw2 14:36 BP 129 / 75; Pulse 88; Resp 17; Pulse Ox 96% on R/A; tw2 15:53 BP 116 / 69; Pulse 89; Resp 17; Temp 98.9(O); Pulse Ox 98% on R/A; mh5 17:16 BP 102 / 68; Pulse 96; Resp 17; Temp 99.0(O); Pulse Ox 97% on R/A; mh5 18:20 BP 111 / 62; Pulse 89; Resp 17; Pulse Ox 97% on R/A; tw2 20:11 BP 120 / 62; Pulse 84; Resp 18; Temp 98; Pulse Ox 97% on R/A; mg2 12:15 Body Mass Index 41.45 (106.14 kg, 160.02 cm) sv MDM: 12:29 Patient medically screened. tw4 18:05 Differential diagnosis: abscess, cellulitis. Data reviewed: vital signs, nurses notes. tw4 Data reviewed: lab test result(s), CBC, electrolytes, hepatic panel, radiologic studies, CT scan. Data interpreted: Pulse oximetry: Interpretation: normal. Counseling: I had a detailed discussion with the patient and/or guardian regarding: the historical points, exam findings, and any diagnostic results supporting the discharge/admit diagnosis, lab results, radiology results. Physician consultation: Ricci Bauer regarding admission, to the medical/surgical unit. patient's condition, and will see patient in ED. 04/05 12:36 Order name: Basic Metabolic Panel; Complete Time: 13:57 tw4 04/05 13:57 Interpretation: Normal except: NA 134; K 3.4; GLUC 346; GFR 77. tw04/05 12:36 Order name: CBC with Diff; Complete Time: 13:57 tw4 04/05 16:56 Interpretation: Normal except: WBC 12.7; RBC 5.12; MCV 78.1; MCH 25.0; KALANI% 74.5; NEUT tw4 A 9.5. 04/05 12:36 Order name: Creatinine for Radiology; Complete Time: 13:57 tw4 04/05 13:57 Interpretation: Within normal limits: CRE 0.89. tw04/05 12:36 Order name: Hepatic Function; Complete Time: 13:57 tw 04/05 13:57 Interpretation: Normal except: ALK 164; TP 9.5; GLOB 6.1; A/G 0.6. tw4 04/05 12:36 Order name: Lipase; Complete Time: 13:58 04/05 12:36 Order name: Blood Culture Adult (2) 04/05 12:58 Order name: CT Abd/Pelvis - IV Contrast Only; Complete Time: 16:56 tw 04/05 16:02 Order name: Glucose, Ancillary Testing; Complete Time: 16:56 EDMS 04/05 16:41 Order name: Glucose, Ancillary Testing; Complete Time: 16:56 EDMS 04/05 12:36 Order name: IV Saline Lock; Complete Time: 13:20 tw4 04/05 12:36 Order name: Labs collected and sent; Complete Time: 13:20 tw Administered Medications: 13:06 Drug: Zofran 4 mg Route: IVP; Site: right antecubital; tw2 13:40 Follow up: Response: No adverse reaction tw2 13:08 Drug: morphine 2 mg Route: IVP; Site: right antecubital; tw2 14:00 Follow up: Response: No adverse reaction; Pain is decreased tw2 13:10 Drug: Clindamycin 600 mg Route: IVPB; Infused Over: 30 mins; Site: right antecubital; tw2 13:39 Follow up: Response: No adverse reaction; IV Status: Completed infusion tw2 13:39 Drug: vancoMYCIN 1 grams Route: IVPB; Infused Over: 2 hrs; Site: right antecubital; tw2 16:35 Follow up: Response: No adverse reaction; IV Status: Completed infusion tw2 15:50 Drug: Insulin Regular Human 10 units {Co-Signature: tw2 (Elmira Leon RN).} Route: IVP; em Site: right antecubital; 16:28 Follow up: Response: No adverse reaction; Blood sugar is lowered tw2 16:40 Drug: Flagyl 500 mg Volume: 100 ml; Route: IVPB; Rate: 200 ml/hr; Infused Over: 30 tw2 mins; Site: right antecubital; 17:08 Follow up: Response: No adverse reaction; IV Status: Completed infusion tw2 Disposition: 04/05/19 16:59 Hospitalization ordered by Ricci Bauer for Inpatient Admission. Preliminary diagnosis are Cellulitis of perineum, Hyperglycemia, unspecified. - Bed requested for Telemetry/MedSurg (Inpatient). - Status is Inpatient Admission. mg2 - Condition is Stable. - Problem is new. - Symptoms are unchanged. Signatures: Dispatcher [employer] EDRoshni Plummer Stephanie, RN RN Garret Rayo RN RN Elmira Leon RN RN tw2 Rajeev Mendieta MD MD tw4 David Ruiz RN RN mg2 Elmira Leon RN tw2 Corrections: (The following items were deleted from the chart) 16:56 13:57 Normal except: WBC 12.7; RBC 5.12; MCV 78.1; MCH 25.0. tw4 tw4 16:59 16:59 Hospitalization Ordered by Ricci Bauer for Inpatient Admission. Preliminary tw4 diagnosis is Cellulitis of perineum. Bed requested for Telemetry/MedSurg (Inpatient). Status is Inpatient Admission. Condition is Stable. Problem is new. Symptoms are unchanged. tw4 18:42 16:59 04/05/2019 16:59 Hospitalization Ordered by Ricci Bauer for Inpatient bd Admission. Preliminary diagnosis is Cellulitis of perineum; Hyperglycemia, unspecified. Bed requested for Telemetry/MedSurg (Inpatient). Status is Inpatient Admission. Condition is Stable. Problem is new. Symptoms are unchanged. tw4 20:34 18:42 04/05/2019 16:59 Hospitalization Ordered by Ricci Bauer for Inpatient mg2 Admission. Preliminary diagnosis is Cellulitis of perineum; Hyperglycemia, unspecified. Bed requested for Telemetry/MedSurg (Inpatient). Status is Inpatient Admission. Condition is Stable. Problem is new. Symptoms are unchanged. bd
--- NOTE | 2019-04-05 17:54 | P.HP ---
Certification for Inpatient Patient admitted to: Inpatient With expected LOS: >2 Midnights Practitioner: I am a practitioner with admitting privileges, knowledge of patient current condition, hospital course, and medical plan of care. Services: Services provided to patient in accordance with Admission requirements found in Title 42 Section 412.3 of the Code of Federal Regulations Patient History Date of Service: 04/06/19 Reason for admission: Painful swelling of left labia and pannus History of Present Illness: 28-year-old woman with a history of uncontrolled diabetes presented emergency department with the complaint of painful swelling and redness of the left labia and the pannus. Patient states symptoms have been present for 2 days. This started form her left labia and spread to involve her pannus. She also has another induration on the right lower quadrant of the abdominal wall. Patient reports running out of insulin and had been relying only on metformin for blood glucose control. CT abdomen and pelvis done in the ED does not suggest the presence of abscess. Patient was hospitalized in February for similar lesions in the left lower quadrant. At that time, CT scan showed multiple abscesses which were drained and debrided by Dr. Ryan and then sent home with doxycycline. Patient reports those lesion got healed. Today, she has leukocytosis. She has no fever and does not meet criteria for sepsis. Patient is admitted for further management. Allergies piperacillin [From Zosyn] Allergy (Verified 04/06/19 00:07) Hives/Rash tazobactam [From Zosyn] Allergy (Verified 04/06/19 00:07) Anaphylaxis Home Medications: Insulin Glargine Human [Lantus*] 34 units SQ DAILY #100 ml 02/23/19 Metformin HCl [Glucophage*] 1,000 mg PO BIDWM #60 tab 02/23/19 - Past Medical/Surgical History Diabetic: Yes -: Type 2 diabetes -: Morbid obesity -: History of ovarian cyst -: Removal of cyst from rt. breast. -: c. section x 2 - Family History Father -: Diabetes Mother -: Heart disease - Social History Alcohol use: Yes CD- Drugs: No Caffeine use: Yes Review of Systems Other: Patient denied any vaginal discharge or dysuria. Except as documented, all other systems reviewed and negative. Physical Examination - Physical Exam General: Alert, In no apparent distress, Oriented x3, Obese HEENT: Mucous membr. moist/pink, Sclerae nonicteric Neck: Supple, JVD not distended Respiratory: Clear to auscultation bilaterally, Normal air movement Cardiovascular: No edema, Normal pulses, Regular rate/rhythm, Normal S1 S2, No murmurs Capillary refill: <2 Seconds Gastrointestinal: Normal bowel sounds, Soft and benign, Non-distended, No tenderness Musculoskeletal: No swelling, No erythema Integumentary: Tenderness/swelling (pannus and left labia.) Neurological: Normal speech, Normal strength at 5/5 x4 extr, Cranial nerves 3- 12 intact External genitalia: Lesions (Erythema and swelling of the left labia) - Studies Laboratory Data (last 24 hrs) 04/05/19 12:45: Creatinine 0.89 04/05/19 12:45: WBC 12.7 H, Hgb 12.8, Hct 40.0, Plt Count 318 04/05/19 12:45: Sodium 134 L, Potassium 3.4 L, BUN 7, Creatinine 0.86, Glucose 346 H, Total Bilirubin 1.0, AST 16, ALT 27, Alkaline Phosphatase 164 H, Lipase 134 Assessment and Plan - Problems (Diagnosis) (1) Cellulitis and abscess of unspecified site Current Visit: No Status: Acute (2) Uncontrolled type 2 diabetes mellitus with hyperglycemia Current Visit: No Status: Acute - Plan Admit to the medical floor. Start IV vancomycin, Levaquin and clindamycin. General surgery consult-Dr. Ryan input appreciated. Aggressive blood sugar control with Lantus insulin and insulin sliding scale. Pain management with IV and oral opioids as needed NPO at midnight for possible surgery in a.m. Hold metformin. - Advance Directives Does patient have a Living Will: No Does patient have a Durable POA for Healthcare: No
--- NOTE | 2019-04-05 20:08 | CON ---
Date of Consultation: 04/05/2019 Reason For Consultation: Left labial abscess. Additional Referring Physician: Emergency room. History Of Present Illness: The patient is a 28-year-old, noted increasing swelling of her left labi um in the past 3 days, tried to self drain. No pus was expressed. This swelling kept increasing pro gressively. The pain and swelling have worsened to the point that the patient brought herself to the ER this morning. No fever or chills. No myalgias or malaise. The patient reports having her sugars in the 450 range. Last checked 2 days ago. She has been taking metformin once or twice a day. She does not take her Lantus as prescribed by the clinic. Past medical history, review of systems mostly negative excepting the vulvar pain, some abdominal dis comfort as well. Does not have any vaginal complaints. Current medical history, type 2 diabetes per the patient, diagnosed 2 years ago. She gets this managed at the [facility]. She is noncompli ant with her medications. Past Surgical History: Most recently, she had a hysterectomy, bilateral salpingo-oophorectomy for po ssible tubo-ovarian abscesses in [facility], has had an unremarkable recovery according t o the patient. Anterior abdominal wall abscess within the last 12 months, treated by Dr. Ryan. She needed incision and drainage and then packing and healing by secondary intention over a long aracelis od of time. Another, she had 2 C-sections, tubal ligation, and a right breast lumpectomy in the past. Social History: No tobacco, alcohol, or drug use. Family History: No family history that is remarkable excepting a grandfather with diabetes. Allergies: TO ZOSYN, SHE HAS A RASH. Physical Examination: Vital Signs: Temperature of 98.0, pulse 91, respirations 16, 106 kg, 5 feet 3 inches, 100% sats on r oom air, 111/73 for blood pressure. General: She was given morphine 2 mg, Zosyn 600 and vancomycin 1 g, which is under process at this t brina that I saw the patient. The patient is reclining in her bed. Not in acute distress. Has some d iscomfort on moving. Head and Neck: Unremarkable. No thyromegaly or jugular venous distention. Heart: Clear to auscultation. Chest Wall: Unremarkable. Abdomen: Anterior abdominal wall scar in the left upper quadrant abdominal wall from her prior incis ion and drainage. Then, another indurated cellulitic area in the right lower quadrant on the pannus, another cellulitic area on the mons, which was indurated and significantly erythematous. Then, the left labium was visibly swollen, significantly larger than the other, and appeared to have small pust ular lesions on the top but no pus was draining. Light serosanguineous discharge was seen at this ar ea. Abdomen otherwise unremarkable, Soft, nondistended. Minimally tender at the sites as described. No masses were palpable. No hepatosplenomegaly. Extremities: Unremarkable. Pelvic: As described above. The right labium appeared to be unremarkable. The left labium shifted everything. The left inguinal area tender, likely from inguinal adenopathy. Vaginal exam was very d ifficult due to the labial tenderness which was not performed. Laboratory Data: Her white cell count was 12.7 with a shift. Then, all other labs unremarkable. He r sugar was elevated. CAT scan, the images were reviewed. The reading was still not available. Radiologist not available for me when I went on to check for the report. However, on the CAT scan, it was very visible that th ere was subcutaneous infection. No fascial infection. No air seen in the areas, but no area of sepa ration where a collection of pus was visualized. Even in the left labium where there was a lot of fa t stranding and possible pockets of fluid, no single large abscess cavity was visualized. The areas of the cellulitis consistent with exam were present. No other remarkable findings. Impression And Plan: 1.Left labial cellulitis and possible abscess. Needs intravenous antibiotics to start with. I woul d continue the vancomycin and add Flagyl. Possible incision and drainage are needed. Discussed with the patient. Also discussed with Dr. Ryan. Due to the presence of all other cellulitic areas, he was willing to evaluate and take her to the OR. If assistance needed, I will be always available. 2.Uncontrolled other areas of cellulitis in the abdominal wall in the mons. The cellulitic areas po tentially are evolving areas of abscesses, most likely from her uncontrolled diabetes. Continue intr avenous antibiotics and monitor clinically with serial exams. 3.Uncontrolled diabetes. Needs a medicine consult and starting the patient on some insulin or maybe an insulin drip to get it under control and then later put her on some Lantus or other long-acting i nsulin. Also needs the short-acting insulin and teaching. Discussed with the patient extensively ab out the need of tighter control of diabetes without glycemic control, that she would have recurrent p roblem. Also need to make sure that this is not a methicillin-resistant Staphylococcus aureus infect ion and so will need wound cultures. I will stay as backup for Dr. Ryan and will not continue to follow the patient until asked to rec onsult. All these impressions were communicated with the ER physicians and they are aware of the elver n about Dr. Ryan seeing and evaluating the patient. GIORGIO/WIL Voice ID: [id number] Report ID: [id number]
--- NOTE | 2019-04-05 20:47 | CON ---
Date of Consultation: 04/05/2019 Reason For Service: Cellulitis and abscess; abdominal wall, right lower quadrant, suprapubic, and ex ternal genitalia. History Of Present Illness: This is the case of a 28-year-old patient with history of diabetes and m orbid obesity, who comes to us with 3 areas of mild increased temperature, tenderness. Patient is we ll-known to us in the past and a few years ago, she had a large abscess in the abdomen that required incision and drainage and long-term wound care. She was seen initially by the coal conveyor operator who asked to consult the patient, and I came to evaluate the patient. She denies any trauma. Denies any dysu jeremy, hematuria, hematochezia, or melena. Denies any recent traveling out of the country. Denies any family member sick at home. Past Medical History: Diabetes. Medications: Reviewed. Surgical History: I and D. Social History: She does not smoke. She does not drink alcohol. Family History: Noncontributory. Review of Systems: 10-point otherwise unremarkable. Physical Examination: General: Patient is awake and alert. HEENT: Pupils are equal and reactive, anicteric. Neck: Supple. Chest: Clear. Abdomen: Soft and depressible. There is a right lower quadrant area of cellulitis, about 15 x 15 cm . Increased temperature. Cannot rule out abscess. In the area of the suprapubic area, there is an area of about 10 x 15 cm once again a small area trying to come to a head, but is not doin g it yet. Induration, tenderness, erythema just like the abdomen. On the left labia, external genit yolis, patient has an area that also has the appearance of an abscess with some fluctuance present. Extremities: Good capillary refill. Rectal: Deferred. Diagnostic Data: Blood work shows a WBC count of 12.7 with hemoglobin of 12.8. Sodium is 134. CAT scan of the abdomen and pelvis reviewed and shows infectious inflammatory changes over the labia. Assessment: It is cellulitis and abscess of the abdominal wall also suprapubic and also l abia. Patient has uncontrolled diabetes, but hat the medical doctor is going to work on that. I am going to take her to surgery when safe for incision and drainage of abdominal wall abscess, suprapubi c abscess, and the labia abscess. The benefits, alternatives, and risks include but not limited to i nfection, bleeding, damage to adjacent structures, anesthesia complication, nonhealing wound, TN, and even . She also understands this may not relieve her symptoms. She might need more than one s urgical intervention. She was explained the importance of losing weight, the importance of diabetes control and packing. She ate, but we are going to ask her to be n.p.o. from now. NOAH/WIL Voice ID: [id number] Report ID: [id number]
[2019-04-05 20:55] VITALS: BMI 39.3
[2019-04-05] MEDS ORDERED: ACETAMINOPHEN 500 MG TAB PO PRN (21:04)
[2019-04-05] MEDS ORDERED: VANCOMYCIN/NS 1 gm 1 GM/250 ML BAG IVPB SCH (21:04)
[2019-04-05] MEDS ORDERED: ONDANSETRON 4 MG/2 ML VIAL IV PRN (21:04)
[2019-04-05] MEDS: INSULIN -REGULAR HUMAN 50 UNIT/0.5 ML ML SQ SCH (21:40)
[2019-04-05] MEDS: NA CHLORIDE 0.9% 1,000 ML IV SCH (21:41)
[2019-04-05] MEDS: Levofloxacin 750mg IV 750 MG/150 ML BAG IV SCH (21:51)
[2019-04-05] MEDS ORDERED: VANCOMYCIN 1 GM/VIAL ONE (23:47)
[2019-04-05] MEDS ORDERED: NA CHLORIDE 0.9% 500 ML ONE (23:48)
[2019-04-05] MEDS ORDERED: NA CHLORIDE 0.9% 0 ML ONE (23:48)
[2019-04-05] MEDS ORDERED: CLINDAMYCIN 600MG/D5W 0 MG/0 ML BAG IV ONE (23:59)
[2019-04-06] MEDS ORDERED: CLINDAMYCIN IV 150 MG/ML (4 mL) VIAL ONE (01:03)
[2019-04-06] MEDS ORDERED: NA CHLORIDE 0.9% 100 ML IV ONE (01:04)
[2019-04-06] MEDS: VANCOMYCIN 1.75 GM in NA CHLORIDE 0.9% 500 ML IVPB SCH ×2 (01:12→14:25)
[2019-04-06 05:11] LABS: Absolute Lymphocytes (CBC) 1.9 K/uL (0.7-4.9); Basophils % 0.4 % (0-1.3); Hematocrit 35.4 % (36.0-45.0); MPV 9.9 fL (7.6-11.3); RBC Red Blood Cell Count 4.48 M/uL (3.86-4.86)
[2019-04-06] MEDS: CLINDAMYCIN INJ 600 MG in NA CHLORIDE 0.9% 50 ML IV SCH ×6 (05:14→23:38)
[2019-04-06 05:18] LABS: BUN Blood Urea Nitrogen 9 mg/dL (7-18); Bicarbonate 27 mmol/L (21-32); Glucose Level 281 mg/dL (74-106); Potassium 3.8 mmol/L (3.5-5.1); Sodium Level 138 mmol/L (136-145)
[2019-04-06] MEDS ORDERED: PNEUMOCOCCAL VACCINE 0.5 ML IMVAC ONE (08:00)
[2019-04-06] MEDS: INSULIN -REGULAR HUMAN 50 UNIT/0.5 ML ML SQ SCH ×4 (08:35→21:20)
[2019-04-06] MEDS ORDERED: FENTANYL CITR 100 MCG/2 ML ONE (11:46)
[2019-04-06] MEDS ORDERED: propofoL 200 MG/20 ML VIAL IV ONE (11:46)
[2019-04-06] MEDS ORDERED: MIDAZOLAM HCL 2 MG/2 ML INJ ONE (11:46)
[2019-04-06] MEDS ORDERED: LIDOCAINE 2% MPF 5 ML VIAL ONE (11:47)
[2019-04-06] MEDS ORDERED: ONDANSETRON 4 MG/2 ML VIAL ONE ×2 (11:48→13:51)
[2019-04-06] MEDS ORDERED: MEPERIDINE HCL 25 MG/0.5 ML ONE (12:54)
--- NOTE | 2019-04-06 13:03 | P.PN ---
Subjective Date of Service: 04/06/19 Chief Complaint: Painful swelling of left labia and pannus Patient states her labial lesion is now discharging pus. She has been afebrile. Physical Examination - Vital Signs Temperature: 97.2 F Blood Pressure: 96/54 Pulse: 77 Respirations: 15 Pulse Ox (%): 99 - Physical Exam General: Alert, In no apparent distress, Oriented x3 HEENT: Mucous membr. moist/pink, Sclerae nonicteric Neck: JVD not distended, No Thyromegaly Respiratory: Clear to auscultation bilaterally, Normal air movement Cardiovascular: No edema, Regular rate/rhythm, Normal S1 S2 Gastrointestinal: Normal bowel sounds, Soft and benign, Non-distended, No tenderness Integumentary: Tenderness/swelling (Pannus, area of in tender induration and erythema on the right lower quadrant abdominal wall) Neurological: Normal strength at 5/5 x4 extr - Studies Laboratory Data (last 24 hrs) 04/05/19 12:45: Creatinine 0.89 04/05/19 12:45: WBC 12.7 H, Hgb 12.8, Hct 40.0, Plt Count 318 04/05/19 12:45: Sodium 134 L, Potassium 3.4 L, BUN 7, Creatinine 0.86, Glucose 346 H, Total Bilirubin 1.0, AST 16, ALT 27, Alkaline Phosphatase 164 H, Lipase 134 Assessment And Plan - Current Problems (Diagnosis) (1) Cellulitis and abscess of unspecified site Current Visit: No Status: Acute (2) Uncontrolled type 2 diabetes mellitus with hyperglycemia Current Visit: No Status: Acute - Plan Continue IV vancomycin, levaquin and clindamycin. Dr. Ryan is planning I and D today Aggressive blood sugar control with Lantus insulin and insulin sliding scale. She has not been able to afford her Lantus insulin. We can switched to Lantus insulin to Novolin 70/30 which is more affordable on discharge Pain management with IV and oral opioids as needed Hold metformin.
--- NOTE | 2019-04-06 13:18 | P.BOP ---
Preoperative diagnosis: abdominal , suprapubic and genitalia complex abscess Postoperative diagnosis: same , morbid obesity, uncontrolled diabetes Primary procedure: 1. Incision and drainage complex abscess Right Lower quadrant [id number] Secondary procedure: 2. Incision and drainage complex abscess suprapubic 5 x 4 x 1.5 cm Other procedure(s): 3. Incision and drainage complex abscess genitalia 5x3 cm Estimated blood loss: <10cc Specimen: pus Anesthesia: General Complications: None Transferred to: Recovery Room Condition: Good
[2019-04-06] MEDS ORDERED: HYDROMORPHONE HCL 1 MG/ML INJ ONE (13:51)
[2019-04-06] MEDS: NA CHLORIDE 0.9% 1,000 ML IV SCH (14:25)
[2019-04-06] MEDS: Levofloxacin 750mg IV 750 MG/150 ML BAG IV SCH (21:19)
[2019-04-06] MEDS: MORPHINE 2 MG/ML SYR IV PRN (21:20)
--- NOTE | 2019-04-07 00:05 | OP ---
Date of Procedure: 04/06/2019 Surgeon: Alexander Ryan MD Diagnoses: Abdominal, suprapubic and genitalia complex abscess, also morbid obesity and uncontrolled diabetes. Postoperative Diagnoses: Abdominal, suprapubic and genitalia complex abscess, also morbid obesity an d uncontrolled diabetes. Procedure: 1.Incision and drainage of complex abscess, right lower quadrant in the abdomen, 10 x 10 x 2 cm. 2.Incision and drainage of complex abscess suprapubic, 5 x 4 x 1.5 cm. 3.Incision and drainage of complex abscess, external genitalia of 5 x 3 cm. Anesthesia: General plus local. Specimen: Pus culture. Indications: This is the case of a 28-year-old patient with morbid obesity, uncontrolled diabetes wi th multiple abscess in multiple areas with erythema and tenderness. Patient was seen initially by e boring machine feeder, the primary doctor and I was consulted to help with the drainage. The benefits, alte rnatives, and risks of incision and drainage fully explained to the patient, which include but are no t limited to infection, bleeding, damage to adjacent structures, anesthesia complication, recurrence, NV, and even . She also understands this may not relieve any symptoms. She might need more th an one surgical intervention. She understood, signed a consent. She also understands she will requi re wound care. She was counseled importance of losing weight and diabetes control. The area of conc oscar was marked by me and the patient in the holding room. Description Of Procedure: Patient was brought to the operating room, placed in supine position. Ane sthesia was done without complication. Then the patient was placed in lithotomy position with proper protection. Abdomen, suprapubic and genitalia were prepped and draped in a sterile fashion. Local anesthesia was applied. We started with the right lower quadrant abdominal wall. An incision was ma de in that area. Once again, we noted noticed large area in the abdomen, muscle does not involved, b ut have some purulent discharge present in that area. The hemostasis obtained. Pus was drained. Cu lture was obtained. The area was irrigated and the area was packed with wet-to-dry dressing with the help of iodoform packing. Then, after that, we did the same thing with the suprapubic area with the size described above and then after that, we made a third incision over the external genitalia once again that was full pus. All areas were irrigated. Hemostasis obtained. Sponge count and instrumen t counts were correct. The area was repacked with the iodoform packing. Patient was sent to recover y in stable condition. NOAH/WIL Voice ID: [id number] Report ID: [id number]
[2019-04-07] MEDS: VANCOMYCIN 1.75 GM in NA CHLORIDE 0.9% 500 ML IVPB SCH ×2 (01:30→14:00)
[2019-04-07 04:30] LABS: Absolute Lymphocytes (CBC) 1.7 K/uL (0.7-4.9); Basophils % 0.6 % (0-1.3); Lymphocytes % 21.3 % (15.3-44.8); MPV 10.2 fL (7.6-11.3)
[2019-04-07 04:38] LABS: Potassium 3.7 mmol/L (3.5-5.1)
[2019-04-07] MEDS: CLINDAMYCIN INJ 600 MG in NA CHLORIDE 0.9% 50 ML IV SCH ×4 (05:21→23:33)
[2019-04-07] MEDS: INSULIN -REGULAR HUMAN 50 UNIT/0.5 ML ML SQ SCH ×4 (08:49→21:28)
--- NOTE | 2019-04-07 11:38 | P.PN ---
Subjective Date of Service: 04/07/19 Chief Complaint: Painful swelling of left labia and pannus Subjective: No new changes, Improving Review of Systems 10-point ROS is otherwise unremarkable Physical Examination - Vital Signs Temperature: 98.5 F Blood Pressure: 127/71 Pulse: 71 Respirations: 118 Pulse Ox (%): 95 - Physical Exam General: Alert, In no apparent distress HEENT: Atraumatic, Normocephalic Neck: Supple Respiratory: Clear to auscultation bilaterally Cardiovascular: No edema, Regular rate/rhythm Capillary refill: <2 Seconds Gastrointestinal: Normal bowel sounds, Soft and benign Musculoskeletal: No clubbing, No swelling Integumentary: No rashes Neurological: Normal speech, Normal strength at 5/5 x4 extr Lymphatics: No axilla or inguinal lymphadenopathy External genitalia: Tenderness, Other (Packing intact) Rectal: Deferred - Studies Laboratory Last Values WBC 8.1 K/uL (4.3-10.9) D 04/07/19 03:30 RBC 4.60 M/uL (3.86-4.86) 04/07/19 03:30 Hgb 11.7 g/dL (12.0-15.0) L 04/07/19 03:30 Hct 36.0 % (36.0-45.0) 04/07/19 03:30 MCV 78.4 fL (80-100) L 04/07/19 03:30 MCH 25.4 pg (27.0-35.0) L 04/07/19 03:30 MCHC 32.4 g/dL (32.0-36.0) 04/07/19 03:30 RDW 14.8 % (12.1-15.2) 04/07/19 03:30 Plt Count 273 K/uL (152-406) 04/07/19 03:30 MPV 10.2 fL (7.6-11.3) 04/07/19 03:30 Neutrophils % 67.2 % (41.7-73.7) 04/07/19 03:30 Lymphocytes % 21.3 % (15.3-44.8) 04/07/19 03:30 Monocytes % 8.5 % (3.3-12.3) 04/07/19 03:30 Eosinophils % 2.4 % (0-4.4) 04/07/19 03:30 Basophils % 0.6 % (0-1.3) 04/07/19 03:30 Absolute Neutrophils 5.4 K/uL (1.8-8.0) 04/07/19 03:30 Absolute Lymphocytes 1.7 K/uL (0.7-4.9) 04/07/19 03:30 Absolute Monocytes 0.7 K/uL (0.1-1.3) 04/07/19 03:30 Absolute Eosinophils 0.2 K/uL (0-0.5) 04/07/19 03:30 Absolute Basophils 0.0 K/uL (0-0.5) 04/07/19 03:30 Sodium 137 mmol/L (136-145) 04/07/19 03:30 Potassium 3.7 mmol/L (3.5-5.1) 04/07/19 03:30 Chloride 103 mmol/L (98-107) 04/07/19 03:30 Carbon Dioxide 26 mmol/L (21-32) 04/07/19 03:30 BUN 9 mg/dL (7-18) 04/07/19 03:30 Creatinine 0.76 mg/dL (0.55-1.3) 04/07/19 03:30 Estimated GFR 89 mL/min (=/>90) L 04/07/19 03:30 Glucose 333 mg/dL (74-106) H 04/07/19 03:30 POC Glucose 294 mg/dl (65-120) H 04/07/19 07:34 Calcium 8.6 mg/dL (8.5-10.1) 04/07/19 03:30 Total Bilirubin 1.0 mg/dL (0.2-1.0) 04/05/19 12:45 Direct Bilirubin 0.2 mg/dL (0-0.2) 04/05/19 12:45 AST 16 U/L (15-37) 04/05/19 12:45 ALT 27 U/L (12-78) 04/05/19 12:45 Alkaline Phosphatase 164 U/L (45-117) H 04/05/19 12:45 Serum Total Protein 9.5 g/dL (6.4-8.2) H 04/05/19 12:45 Albumin 3.4 g/dL (3.4-5.0) 04/05/19 12:45 Globulin 6.1 g/dL (2.3-3.5) H 04/05/19 12:45 Albumin/Globulin Ratio 0.6 (1.1-1.8) L 04/05/19 12:45 Lipase 134 U/L (73-393) 04/05/19 12:45 Assessment & Plan - Problems (Diagnosis) (1) Cellulitis and abscess of unspecified site Current Visit: No Status: Acute Plan: Continue antibiotics Appreciate help from Dr. Ryan Status post I and D Aggressive blood sugar control with Lantus insulin and insulin sliding scale. Still hyperglycemic with a plate inserted Pain management with IV and oral opioids as needed Hold metformin. Possibly DC in AM Time Spent Managing Pts Care (In Minutes): 42
[2019-04-07] MEDS: MORPHINE 2 MG/ML SYR IV PRN (11:47)
[2019-04-07] MEDS: NA CHLORIDE 0.9% 1,000 ML IV SCH (13:04)
[2019-04-07] MEDS ORDERED: D50W 25 GM/50 ML SYRINGE/VIAL IV PRN (15:23)
[2019-04-07] MEDS ORDERED: GLUCAGON 1 MG/VIAL IM PRN (15:23)
[2019-04-07] MEDS ORDERED: INSULIN GLARGINE 100 UNITS/ML SQ SCH (17:00)
[2019-04-07] MEDS: Levofloxacin 750mg IV 750 MG/150 ML BAG IV SCH (21:27)
[2019-04-08] MEDS ORDERED: VANCOMYCIN 2 GM in NA CHLORIDE 0.9% 500 ML IVPB SCH (02:00)
[2019-04-08] MEDS: CLINDAMYCIN INJ 600 MG in NA CHLORIDE 0.9% 50 ML IV SCH ×2 (05:06→11:39)
[2019-04-08] MEDS: NA CHLORIDE 0.9% 1,000 ML IV SCH ×2 (05:06→09:04)
[2019-04-08 05:31] LABS: Basophils % 0.7 % (0-1.3); Lymphocytes % 28.5 % (15.3-44.8); MPV 9.7 fL (7.6-11.3); RBC Red Blood Cell Count 4.61 M/uL (3.86-4.86)
[2019-04-08 05:41] LABS: BUN Blood Urea Nitrogen 6 mg/dL (7-18); Bicarbonate 26 mmol/L (21-32); Glucose Level 193 mg/dL (74-106); Potassium 3.7 mmol/L (3.5-5.1); Sodium Level 138 mmol/L (136-145)
[2019-04-08] MEDS: INSULIN -REGULAR HUMAN 50 UNIT/0.5 ML ML SQ SCH ×2 (08:31→12:13)
[2019-04-08 10:55] VITALS: O2SAT 96
--- NOTE | 2019-04-08 11:08 | P.DS ---
Admission Date: 04/05/19 Discharge Date: 04/08/19 Disposition: ROUTINE DISCHARGE Discharge Condition: GOOD Reason for Admission: Painful swelling of left labia and pannus - Problems (1) Cellulitis and abscess of unspecified site Status: Acute Brief History of Present Illness: 28-year-old woman with a history of uncontrolled diabetes presented emergency department with the complaint of painful swelling and redness of the left labia and the pannus. Patient states symptoms have been present for 2 days. This started form her left labia and spread to involve her pannus. She also has another induration on the right lower quadrant of the abdominal wall. Patient reports running out of insulin and had been relying only on metformin for blood glucose control. CT abdomen and pelvis done in the ED does not suggest the presence of abscess. Patient was hospitalized in February for similar lesions in the left lower quadrant. At that time, CT scan showed multiple abscesses which were drained and debrided by Dr. Ryan and then sent home with doxycycline. Patient reports those lesion got healed. Today, she has leukocytosis. She has no fever and does not meet criteria for sepsis. Patient is admitted for further management. Hospital Course: Patient was admitted and was monitored . was started on IV antibiotics. surgery was consulted. she underwent incision and drainage. Aggressive blood sugar control with Lantus insulin and insulin sliding scale Was done Pain management with IV and oral opioids as needed. Patient responded well to the treatment and is being discharged home today in a stable condition with advice to follow up with PCP in 1 week and also with Dr Ryan in 1-2 weeks Vital Signs/Physical Exam: Temp Pulse Resp BP Pulse Ox 97.2 F 70 15 104/67 100 04/08/19 08:00 04/08/19 08:00 04/08/19 08:00 04/08/19 08:00 04/08/19 08:00 General: Alert, In no apparent distress HEENT: Atraumatic, Normocephalic Neck: Supple Respiratory: Clear to auscultation bilaterally, Normal air movement Cardiovascular: No edema, Regular rate/rhythm Capillary refill: <2 Seconds Gastrointestinal: Soft and benign, W/out hepatosplenomegaly Musculoskeletal: No clubbing, No swelling Integumentary: No rashes Neurological: Normal speech, Normal strength at 5/5 x4 extr Lymphatics: No axilla or inguinal lymphadenopathy Laboratory Data at Discharge: WBC 6.9 K/uL (4.3-10.9) D 04/08/19 04:53 Hgb 11.5 g/dL (12.0-15.0) L 04/08/19 04:53 Hct 36.0 % (36.0-45.0) 04/08/19 04:53 Plt Count 280 K/uL (152-406) 04/08/19 04:53 Sodium 138 mmol/L (136-145) 04/08/19 04:53 Potassium 3.7 mmol/L (3.5-5.1) 04/08/19 04:53 BUN 6 mg/dL (7-18) L 04/08/19 04:53 Creatinine 0.61 mg/dL (0.55-1.3) 04/08/19 04:53 Glucose 193 mg/dL (74-106) H 04/08/19 04:53 Total Bilirubin 1.0 mg/dL (0.2-1.0) 04/05/19 12:45 AST 16 U/L (15-37) 04/05/19 12:45 ALT 27 U/L (12-78) 04/05/19 12:45 Alkaline Phosphatase 164 U/L (45-117) H 04/05/19 12:45 Lipase 134 U/L (73-393) 04/05/19 12:45 Home Medications: Insulin Glargine Human [Lantus*] 34 units SQ DAILY #100 ml 02/23/19 Metformin HCl [Glucophage*] 1,000 mg PO BIDWM #60 tab 02/23/19 Ciprofloxacin HCl [Cipro 500 MG Tablet] 500 mg PO BID #10 tab 04/08/19 Doxycycline Hyclate 100 mg PO BID #14 tablet 04/08/19 New Medications: Ciprofloxacin HCl [Cipro 500 MG Tablet] 500 mg PO BID #10 tab Doxycycline Hyclate 100 mg PO BID #14 tablet Diet: ADA Activity: Ad evgeny Followup: Alexander Ryan MD [ACTIVE - CAN ADMIT] - Time spent managing pt's care (in minutes): 38
[2019-04-08 12:21] VITALS: BP 99/59; TEMP 97.5
--- NOTE | 2019-04-08 16:53 | PN ---
Subjective: Patient is here with multiple abscess carbuncles, status post incision and drainage by s urgical team. Patient has been having these lesions for last 1 year off and on. Denies any other pr oblems. Does not follow up with any primary care doctor. Her sugars are elevated also. No other pr oblems at this time. Patient has significant history of allergies to Zosyn causing swelling of her l ips and rashes. Patient has taken amoxicillin without any complication. Denies any chest pain, abdo hernan pain, constipation, or diarrhea. Past Medical History: Diabetes mellitus, morbid obesity, ovarian cyst. Past Surgical History: Removal of the cyst from right breast, x2. Family History: Positive for diabetes and heart disease. Social History: Positive for alcohol. Negative for tobacco. Review of Systems: A 10-point review was performed. Medications: Currently, patient is on clindamycin, Levaquin, and vancomycin. Physical Examination: General: This is a 28-year-old female, lying in bed, not in any acute cardiopulmonary distress. Vital Signs: Temperature 99, pulse 70, respirations 15, blood pressure 104/67. HEENT: Unremarkable. Neck: Supple. Lungs: Clear to auscultation. Heart: S1, S2. Regular. Abdomen: Surgical incisions and wounds noted in abdomen, suprapubic region, and left lobar area. Extremities: No edema. Laboratory Data And Imaging: WBC 6.9, down from 12.7; hemoglobin 9.5; platelets 280. Chemistry show s sodium 138, potassium 3.7, chloride 106, bicarb 26, BUN 6, creatinine 0.6, glucose is 168. Wound c ultures are growing Staph aureus, sensitive to Bactrim and cefazolin and oxacillin; resistant to nikki olones and penicillin and tetracyclines. Abdominal CT and pelvis shows inflammatory changes over the labia on the left side. No fo und. Assessment And Plan: A 28-year-old female with morbid obesity and diabetes mellitus, coming in with recurrent carbuncles, status post incision and drainage, recommend to do Hibiclens once a week for e next 1 month and then once a month afterwards. Continue antibiotic, can be switched to oral antibi otic. Recommend iodoform gauze packing and loose clothing. We will follow patient closel y. NF/MODL Voice ID: [id number] Report ID: [id number]
== END 2019-04-08 13:14 | disposition home or self-care (01) | DRG 746 ==
LOC: ER 12:11 → ERHOLD 17:59 → 4TH 20:13
PROVIDERS: ADMIT Internal Medicine; ATTEND Family Medicine
PROC: 0J9C0ZZ Drainage of Pelvic Region Subcutaneous Tissue and Fascia, Open Approach (ICD-10-PCS; 2019-04-06)
PROC: 0W9F0ZZ Drainage of Abdominal Wall, Open Approach (ICD-10-PCS; 2019-04-06)
PROC: 0U9M0ZZ Drainage of Vulva, Open Approach (ICD-10-PCS; principal; 2019-04-06 12:00)
DX: N76.2 Acute vulvitis (principal); L03.311 Cellulitis of abdominal wall; B95.61 Methicillin susceptible Staphylococcus aureus infection as the cause of diseases classified elsewhere; E66.01 Morbid (severe) obesity due to excess calories; Z68.39 Body mass index [BMI] 39.0-39.9, adult
CPT/HCPCS: 36415; 74177; 80048; 80076; 80202; 82565; 82947; 83690; 85025; 87040; 87070; 87075; 87077; 87186; 87205; 88304; 94760; 96365; 96366; 96367; 96375; 99285; J1170; J1815; J2175; J2250; J2270; J2405; J2704; J3010; J3370; J7030; J7040; Q9967; S0077

== ENCOUNTER 2020-06-08 23:50 | Emergency (ER) | payer OTHER, SELFPAY ==
--- OUTSIDE RECORDS SUMMARY | 2020-06-08 23:55 | XMS REPORT | Continuity of Care Document ---
:1990 Author Organization [facility] t Address [address] [place] [address] Care Team Providers Name Role Phone Dominic LEO, Gene Attending Clinician Payers Payer Name Policy Type Policy Number Effective Date Expiration Date S ource Problems This patient has no known problems. Allergies, Adverse Reactions, Alerts Allergy Allergy Status Severity Reaction(s) Onset Inactive Treating Comm ents Source Name Type Date Date Clinician Penicill DA Active U 2018-02 [facility]: [address] tazobact DA Active U 2018-02 [facility] am 02-14 00:00: [address] piperaci DA Active U 2018-02 [facility] llin 02-14 00:00: [address] Zosyn Adverse Active shortness of [facility] Medications Ordered Filled Start Stop Current Ordering Indication Dosage Frequency Signature Comments Components Source Medication Medication Date Date Medication? Clinician (SIG) Name Name Norethin Norethin Yes Na Roche [address] [facility] 3[facility]13 [facility] Lancets Lancets 2018-0 Yes Na Roche one [facility] Super Thin Super Thin 4-17 Myriam es - 00:00: [facility] Lisinopril Lisinopril Yes Na Roche [address] [facility] Eduardo Smitha Yes Na Roche [address] [facility] Metformin Metformin Yes Na Roche [address] [address] HCl HCl with meals [facility] Procedures This patient has no known procedures. Encounters Start End Encounter Admission Attending Care Care Encounter Source Date/Time Date/Time Type Type Clinicians Facility Department ID 2020-05-25 2020-05-25 Office ANIKA Alfaro [id number] 11:24:12 14:08:19 Visit Tylor Mckeon [id number] [place] [id number] [facility] [id number] [facility] 2020-04-26 2020-04-26 Outpatient [facility] [id number] [facility] 2020-04-26 2020-04-26 Outpatient [facility] [id number] [facility] 2020-04-09 2020-04-09 Outpatient [facility] [id number] [facility] 2020-04-04 2020-04-04 Out[facility] [id number] [facility] 2020-03-19 2020-03-19 Outpatient [facility] [id number] [facility] 2020-03-19 2020-03-19 Outpatient [facility] [id number] [facility] 2020-02-15 2020-02-15 [facility] [id number] [facility] 2020-01-25 2020-01-25 [facility] [id number] [facility] 2020-01-24 2020-01-24 [facility] [id number] [facility] 2019-12-07 2019-12-07 [facility] [id number] [facility] 2019-11-22 2019-11-22 Out[facility] [id number] [facility] 2019-11-14 2019-11-14 Out[facility] [id number] [facility] 2019 2019 [facility] [id number] [address] 13:40:00 13:40:00 t [employer] [place] [employer] [facility] 2018-05-14 2018-05-14 [facility] [id number] 11:52:00 11:52:00 [facility] 2018-04-27 2018-04-27 [facility] [id number] 10:40:00 10:40:00 [facility] 2018-04-27 2018-04-27 [facility] [id number] 10:07:00 10:07:00 [facility] 2018-04-27 2018-04-27 [facility] [id number] 09:15:00 09:15:00 t Specialty/U Tanisha kes - Specialty rology [facility] a /Urology Clinic l Clinic Outpati ent Clinics 2018-04-26 2018-04-26 [facility] [id number] 13:36:00 13:36:00 t Specialty/U Tanisha kes - Specialty rology [facility] a [facility]Urology Clinic [facility] 2018-04-21 2018-04-21 [facility] [id number] 10:00:00 10:00:00 t [facility] Care L u[facility] - Care [facility] 2017-08-24 2017-08-24 [facility] [id number] 10:31:00 10:31:00 t [employer] s - Drive [facility] 2017-07-22 2017-07-22 [facility] [id number] 11:05:00 11:05:00 t [facility] [place] [facility] - Care Care Clinic [facility] [address] [facility] 2017-05-26 2017-05-26 [facility] [id number] 09:15:00 09:15:00 t [employer] s - Drive [facility] Results Test Description Test Time Test Comments Results Result Comments Source GLUBED 2018-12-24 06:40:00 Test Item Value Reference Range Interpretation Comme nts GLUBED (test code = GLUBED) 92 mg/dL 65-110 N [id number] 23:29:00 Test Item Value Reference Range Interpretation Comments GLUBED (test code = GLUBED) 98 mg/dL 65-110 N [id number] 06:39:00 Test Item Value Reference Range Interpretation Comments GLUBED (test code = GLUBED) 94 mg/dL 65-110 N [id number] 22:51:00 Test Item Value Reference Range Interpretation Comments GLUBED (test code = GLUBED) 112 mg/dL 65-110 H [id number] 19:02:00 Test Item Value Reference Range Interpretation Comments GLUBED (test code = GLUBED) 76 mg/dL 65-110 N [id number] 13:24:00 Test Item Value Reference Range Interpretation Comments GLUBED (test code = GLUBED) 80 mg/dL 65-110 N [id number] 07:43:00 Test Item Value Reference Range Interpretation Comments GLUBED (test code = GLUBED) 86 mg/dL 65-110 N [id number] 21:39:00 Test Item Value Reference Range Interpretation Comments GLUBED (test code = GLUBED) 111 mg/dL 65-110 H [id number] 18:57:00 Test Item Value Reference Range Interpretation Comments GLUBED (test code = GLUBED) 103 mg/dL 65-110 N CHEMISTRY 7 [id number] 13:47:00 Test Item Value Reference Range Interpretation Comments SODIUM (test code = NA) 139 mEq/L 135-145 N POTASSIUM (test code = K) 3.6 mEq/L 3.5-5.0 N CHLORIDE (test code = CL) 103 mEq/L 100-115 N CARBON DIOXIDE (test code = CO2) 29 mEq/L 22-31 N ANION GAP (test code = GAP) 10.30 10-20 N GLUCOSE (test code = GLU) 91 mg/dL 65-110 N BLOOD UREA NITROGEN (test code = 2 mg/dL 7-18 L BUN) GLOMERULAR FILTRATION RATE (test 98 ml/min >60 N code = GFR) CREATININE (test code = CREAT) 0.7 mg/dL 0.5-1.0 N CALCIUM (test code = CA) 8.5 mg/dL 8.4-10.2 N CBC W/AUTO [id number] 13:29:00 Test Item Value Reference Range Interpretation Comments WHITE BLOOD CELL (test code = WBC) 9.2 K/mm3 6.6-12.1 N RED BLOOD CELL (test code = RBC) 3.63 M/mm3 3.45-5.01 N HEMOGLOBIN (test code = HGB) 9.8 g/dL 10.7-13.9 L HEMATOCRIT (test code = HCT) 31.0 % 32.1-42.1 L MEAN CELL VOLUME (test code = MCV) 85 fL 84.1-94.8 N MEAN CELL HGB (test code = MCH) 27.0 pg 27-35 N MEAN CELL HGB CONCETRATION (test 31.6 gm/dL 32.2-34.1 L code = MCHC) RED CELL DISTRIBUTION WIDTH (test 14.8 % 12.4-16.5 N code = RDW) PLATELET COUNT (test code = PLT) 333 K/mm3 133-385 N IMMATURE PLATELET FRACTION (test 0.0 % 0.0-10.8 N code = IPF) MEAN PLATELET VOLUME (test code = 10.4 fl 9.1-12.7 N MPV) NEUTROPHIL % (test code = NT%) 70.7 % 56.5-79.4 N LYMPHOCYTE % (test code = LY%) 18.9 % 14.3-34.3 N MONOCYTE % (test code = MO%) 7.9 % 5.1-10.4 N EOSINOPHIL % (test code = EO%) 1.8 % 0.1-3.0 N BASOPHIL % (test code = BA%) 0.3 % 0.1-1.0 N NEUTROPHIL # (test code = NT#) 6.5 K/mm3 LYMPHOCYTE # (test code = LY#) 1.7 K/mm3 MONOCYTE # (test code = MO#) 0.7 K/mm3 EOSINOPHIL # (test code = EO#) 0.17 K/mm3 BASOPHIL # (test code = BA#) 0.0 K/mm3 RBC MORPHOLOGY REQUIRED (test code NORMAL NORMAL = RBCM) PLATELET MORPHOLOGY REQUIRED (test NORMAL NORMAL code = PLTMR) SOFT TISSUE,NOT DANNIE/MASS/[id number] 13:23:00 RUN DATE: 12/21/18 [facility] PAGE 1 RUN TIME: 1410 Specimen Inquiry RUN USER: INTERFACE PATIENT: SOHAIL THOMPSON LOC: JOSE U #: [id number] AGE/SX: 28/F ROOM: [facility] RE12/15/18REG DR: Arpan Min MD : 86 BED: A DIS: STATUS: ADM IN TLOC: SPEC #: [id number] RECD: 12/20/18 STATUS: OLEGARIO CAOSusan #: [id number] ARELIS: 12/17/18- [facility] DR: Arpan Min MD ENTERED: 12/20/18 SP TYPE: SOFTNOTMLD OTHR DR: Jesús Lord MD, Jill C MD Nasser, Dean A MDORDERED: LEVEL IV CODES: N2P127 - SOFT TISSUES, N COPIES TO: Jesús Lord MD [address] [place] [address] Lianet Weir MD [address] [address] [email or web address] Kristofer Gó[place] [address] [place] [address] Arpan Min MD [address] [facility] [address] [place] [address] PROCEDURES: LEVEL IV (Incomplete) TISSUES: SOFT TISSUES, NOS - EPIPLOACA WITH ABSCESS/SIGMOID/UTERUS,CERVIX,TUBES AND OVARIES CLINICAL HISTORY 28 year old, tubo-ovarian abscess (kr) CONTINUED ON NEXT PAGE RUN DATE: 12/21/18 [facility] PAGE 2 RUN TIME: 1410 Specimen Inquiry RUN USER: INTERFACE SPEC #: [id number] PATIENT: SOHAIL THOMPSON #[id number] (Continued) FINAL DIAGNOSIS Epiploica with abscess, excision: [...] adhesions, and ovarian serosal abscesses CPT code(s): 02104 x2, 53660 [facility] 12/21/18 GROSS DESCRIPTION ANATOMIC SOURCE OF TISSUE [...] Specimen Inquiry RUN USER: INTERFACE SPEC #: [id number] PATIENT: SOHAIL THOMPSON #[id number] (Continued) GROSS DESCRIPTION (Continued) areas of induration, fibrosis and possible fat necrosis. Section code: B1 - donuts, B2 through B6 - tour sales representative sections of bowel with possible diverticular [...] is ariza-red, cauterized, and nodular, with multiple ad hesions. The 3 cm ectocervix displays a central 1 cm slit-like os. The endometrium is dark redand hemorrhagic, with a thickness measuring up to 0.2 cm. The myometrium is trabeculated with a wall thickness measuring up to 2.2 cm. There are no nodules. The outer surfaces of the adnexaare pink- purple, hyperemic, and nodular with multiple adhesions. The [...] - serosal adhesions, C5 and C6 - tour sales representative sections of small adnexa, C7 through C9 - tour sales representative sections of large adnexa. diana 12/20/18 @ 1125 Signed Diana James MD 12/21/18 1323 END OF REPORT [id number] 13:17:00 Test Item Value Reference Range Interpretation Comments GLUBED (test code = GLUBED) 89 mg/dL 65-110 N - XR ABDOMEN [id number] 10:26:00 Patient Name: SOHAIL THOMPSON Unit No: [id number] EXAMS: CPT CODE: [id number] XR ABDOMEN 2V 72346 ABDOMINAL RADIOGRAPHS-ERECT AND SUPINE COMPARISON: CT abdomen [...] Lianet Weir Technologist: RT Dom Trnscrbd D/ (1026) [email or web address] Orig Print D/T: S: 12/21/2018 (1029) [facility] NAME: SOHAIL THOMPSON Radiology Department PHYS: Arpan Wallace MD [address] : 1990 AGE: 28 SEX: F [place], [place] [address] LOC: [id number] A PHONE #: [phone] EXAM DATE: 12/21/2018 STATUS: ADM INFAX #: [phone] RAD NO: Page 1 Signed [id number] 06:40:00 Test Item Value Reference Range Interpretation Comments GLUBED (test code = GLUBED) 117 mg/dL 65-110 H [id number] 00:48:00 Test Item Value Reference Range Interpretation Comments GLUBED (test code = GLUBED) 153 mg/dL 65-110 H [id number] 18:32:00 Test Item Value Reference Range Interpretation Comments GLUBED (test code = GLUBED) 83 mg/dL 65-110 N [id number] 12:58:00 Test Item Value Reference Range Interpretation Comments GLUBED (test code = GLUBED) 153 mg/dL 65-110 H CHEMISTRY 7 [id number] 05:45:00 Test Item Value Reference Range Interpretation Comments SODIUM (test code = NA) 139 mEq/L 135-145 N POTASSIUM (test code = K) 3.2 mEq/L 3.5-5.0 L CHLORIDE (test code = CL) 105 mEq/L 100-115 N CARBON DIOXIDE (test code = CO2) 27 mEq/L 22-31 N ANION GAP (test code = GAP) 10.40 10-20 N GLUCOSE (test code = GLU) 136 mg/dL 65-110 H BLOOD UREA NITROGEN (test code = 3 mg/dL 7-18 L BUN) GLOMERULAR FILTRATION RATE (test 98 ml/min >60 N code = GFR) CREATININE (test code = CREAT) 0.7 mg/dL 0.5-1.0 N CALCIUM (test code = CA) 8.1 mg/dL 8.4-10.2 L CBC W/AUTO [id number] 05:30:00 Test Item Value Reference Range Interpretation Comments WHITE BLOOD CELL (test code = WBC) 9.7 K/mm3 6.6-12.1 N RED BLOOD CELL (test code = RBC) 3.58 M/mm3 3.45-5.01 N HEMOGLOBIN (test code = HGB) 9.6 g/dL 10.7-13.9 L HEMATOCRIT (test code = HCT) 30.6 % 32.1-42.1 L MEAN CELL VOLUME (test code = MCV) 86 fL 84.1-94.8 N MEAN CELL HGB (test code = MCH) 26.8 pg 27-35 L MEAN CELL HGB CONCETRATION (test 31.4 gm/dL 32.2-34.1 L code = MCHC) RED CELL DISTRIBUTION WIDTH (test 14.8 % 12.4-16.5 N code = RDW) PLATELET COUNT (test code = PLT) 274 K/mm3 133-385 N IMMATURE PLATELET FRACTION (test 0.0 % 0.0-10.8 N code = IPF) MEAN PLATELET VOLUME (test code = 10.3 fl 9.1-12.7 N MPV) NEUTROPHIL % (test code = NT%) 71.3 % 56.5-79.4 N LYMPHOCYTE % (test code = LY%) 16.8 % 14.3-34.3 N MONOCYTE % (test code = MO%) 8.8 % 5.1-10.4 N EOSINOPHIL % (test code = EO%) 2.1 % 0.1-3.0 N BASOPHIL % (test code = BA%) 0.5 % 0.1-1.0 N NEUTROPHIL # (test code = NT#) 6.9 K/mm3 LYMPHOCYTE # (test code = LY#) 1.6 K/mm3 MONOCYTE # (test code = MO#) 0.9 K/mm3 EOSINOPHIL # (test code = EO#) 0.20 K/mm3 BASOPHIL # (test code = BA#) 0.1 K/mm3 RBC MORPHOLOGY REQUIRED (test code NORMAL NORMAL = RBCM) PLATELET MORPHOLOGY REQUIRED (test NORMAL NORMAL code = PLTMR) [id number] 00:18:00 Test Item Value Reference Range Interpretation Comments GLUBED (test code = GLUBED) 107 mg/dL 65-110 N [id number] 18:27:00 Test Item Value Reference Range Interpretation Comments GLUBED (test code = GLUBED) 144 mg/dL 65-110 H [id number] 12:13:00 Test Item Value Reference Range Interpretation Comments GLUBED (test code = GLUBED) 126 mg/dL 65-110 H [id number] 08:47:00 Test Item Value Reference Range Interpretation Comments MAGNESIUM (test code = MAG) 1.8 mg/dL 1.8-2.4 N Comments to Newborn Hearing Screener: DO ON BLOOD IN LAB-- DRAWN THIS AMSpecimen Comment: BLOOD IN LAB.CHEMISTRY 7 [id number] 05:19:00 Test Item Value Reference Range Interpretation Comments SODIUM (test code = NA) 141 mEq/L 135-145 N POTASSIUM (test code = K) 3.6 mEq/L 3.5-5.0 N CHLORIDE (test code = CL) 108 mEq/L 100-115 N CARBON DIOXIDE (test code = CO2) 27 mEq/L 22-31 N ANION GAP (test code = GAP) 9.80 10-20 L GLUCOSE (test code = GLU) 169 mg/dL 65-110 H BLOOD UREA NITROGEN (test code = 4 mg/dL 7-18 L BUN) GLOMERULAR FILTRATION RATE (test 98 ml/min >60 N code = GFR) CREATININE (test code = CREAT) 0.7 mg/dL 0.5-1.0 N CALCIUM (test code = CA) 7.5 mg/dL 8.4-10.2 L CBC W/AUTO [id number] 05:06:00 Test Item Value Reference Range Interpretation Comments WHITE BLOOD CELL (test code = WBC) 15.2 K/mm3 6.6-12.1 H RED BLOOD CELL (test code = RBC) 3.66 M/mm3 3.45-5.01 N HEMOGLOBIN (test code = HGB) 9.8 g/dL 10.7-13.9 L HEMATOCRIT (test code = HCT) 31.4 % 32.1-42.1 L MEAN CELL VOLUME (test code = MCV) 86 fL 84.1-94.8 N MEAN CELL HGB (test code = MCH) 26.8 pg 27-35 L MEAN CELL HGB CONCETRATION (test 31.2 gm/dL 32.2-34.1 L code = MCHC) RED CELL DISTRIBUTION WIDTH (test 15.0 % 12.4-16.5 N code = RDW) PLATELET COUNT (test code = PLT) 264 K/mm3 133-385 N IMMATURE PLATELET FRACTION (test 0.0 % 0.0-10.8 N code = IPF) MEAN PLATELET VOLUME (test code = 10.2 fl 9.1-12.7 N MPV) NEUTROPHIL % (test code = NT%) 75.6 % 56.5-79.4 N LYMPHOCYTE % (test code = LY%) 14.0 % 14.3-34.3 L MONOCYTE % (test code = MO%) 8.3 % 5.1-10.4 N EOSINOPHIL % (test code = EO%) 1.1 % 0.1-3.0 N BASOPHIL % (test code = BA%) 0.4 % 0.1-1.0 N NEUTROPHIL # (test code = NT#) 11.5 K/mm3 LYMPHOCYTE # (test code = LY#) 2.1 K/mm3 MONOCYTE # (test code = MO#) 1.3 K/mm3 EOSINOPHIL # (test code = EO#) 0.16 K/mm3 BASOPHIL # (test code = BA#) 0.1 K/mm3 RBC MORPHOLOGY REQUIRED (test code NORMAL NORMAL = RBCM) PLATELET MORPHOLOGY REQUIRED (test NORMAL NORMAL code = PLTMR) [id number] 00:47:00 Test Item Value Reference Range Interpretation Comments GLUBED (test code = GLUBED) 159 mg/dL 65-110 H [id number] 21:14:00 Test Item Value Reference Range Interpretation Comments C-PEPTIDE (test code 2.9 ng/mL 1.1-4.4 C-Pepti de reference = CPEP) interval is for fasting patients.Perfor med At: [facility] [address] [id number] Rosa MD Ph:[phone] [id number] 21:14:00 Test Item Value Reference Range Interpretation Comments INSULIN (test code = 22.1 uIU/mL 2.6-24.9 Perform ed At: INS) [facility] [address] [id number] Rosa MD Ph:[phone] [id number] 18:25:00 Test Item Value Reference Range Interpretation Comments GLUBED (test code = GLUBED) 134 mg/dL 65-110 H [id number] 12:38:00 Test Item Value Reference Range Interpretation Comments GLUBED (test code = GLUBED) 137 mg/dL 65-110 H COMPREHENSIVE METABOLIC [id number] 05:57:00 Test Item Value Reference Range Interpretation Comments SODIUM (test code = NA) 137 mEq/L 135-145 N POTASSIUM (test code = K) 4.5 mEq/L 3.5-5.0 N CHLORIDE (test code = CL) 106 mEq/L 100-115 N CARBON DIOXIDE (test code = CO2) 25 mEq/L 22-31 N ANION GAP (test code = GAP) 10.50 10-20 N GLUCOSE (test code = GLU) 230 mg/dL 65-110 H BLOOD UREA NITROGEN (test code = 8 mg/dL 7-18 N BUN) GLOMERULAR FILTRATION RATE (test 84 ml/min >60 N code = GFR) CREATININE (test code = CREAT) 0.8 mg/dL 0.5-1.0 N TOTAL PROTEIN (test code = PROT) 5.7 gm/dL 6.3-8.2 L ALBUMIN (test code = ALB) 2.1 gm/dL 3.4-4.8 L CALCIUM (test code = CA) 7.0 mg/dL 8.4-10.2 L BILIRUBIN TOTAL (test code = BILT) 0.8 mg/dL 0.2-1.0 N SGOT/AST (test code = AST) 22 units/L 15-37 N SGPT/ALT (test code = ALT) 20 units/L 12-78 N ALKALINE PHOSPHATASE TOTAL (test 69 units/L 46-116 N code = ALKP) [id number] 05:57:00 Test Item Value Reference Range Interpretation Comments MAGNESIUM (test code = 1.0 mg/dL 1.8-2.4 L RESUL TS CALLED TO [facility]) ZAC TURK D BACK & CONFIRMED? Y. BY YUE 12/18 0557. RESULTS VERIFIED BY REP EAT ANALYSIS CBC W/AUTO [id number] 05:13:00 Test Item Value Reference Range Interpretation Comments WHITE BLOOD CELL (test 16.6 K/mm3 6.6-12.1 H Resul ts verified by code = WBC) repeat analysis RED BLOOD CELL (test 4.16 M/mm3 3.45-5.01 N code = RBC) HEMOGLOBIN (test code = 11.2 g/dL 10.7-13.9 N HGB) HEMATOCRIT (test code = 35.2 % 32.1-42.1 Resu lts verified by HCT) repeat analysis MEAN CELL VOLUME (test 85 fL 84.1-94.8 N code = MCV) MEAN CELL HGB (test code 26.9 pg 27-35 L = MCH) MEAN CELL HGB 31.8 gm/dL 32.2-34.1 L CONCETRATION (test code = MCHC) RED CELL DISTRIBUTION 14.7 % 12.4-16.5 N WIDTH (test code = RDW) PLATELET COUNT (test 309 K/mm3 133-385 N code = PLT) IMMATURE PLATELET 0.0 % 0.0-10.8 N FRACTION (test code = IPF) MEAN PLATELET VOLUME 10.9 fl 9.1-12.7 N (test code = MPV) NEUTROPHIL % (test code 76.8 % 56.5-79.4 N = NT%) LYMPHOCYTE % (test code 12.1 % 14.3-34.3 L = LY%) MONOCYTE % (test code = 10.3 % 5.1-10.4 N MO%) EOSINOPHIL % (test code 0.0 % 0.1-3.0 L = EO%) BASOPHIL % (test code = 0.3 % 0.1-1.0 N BA%) NEUTROPHIL # (test code 12.7 K/mm3 = NT#) LYMPHOCYTE # (test code 2.0 K/mm3 = LY#) MONOCYTE # (test code = 1.7 K/mm3 MO#) EOSINOPHIL # (test code 0 K/mm3 = EO#) BASOPHIL # (test code = 0.1 K/mm3 BA#) RBC MORPHOLOGY REQUIRED NORMAL NORMAL (test code = RBCM) PLATELET MORPHOLOGY NORMAL NORMAL REQUIRED (test code = PLTMR) [id number] 00:21:00 Test Item Value Reference Range Interpretation Comments GLUBED (test code = GLUBED) 280 mg/dL 65-110 H CHEMISTRY 7 [id number] 23:10:00 Test Item Value Reference Range Interpretation Comments SODIUM (test code = NA) 137 mEq/L 135-145 N POTASSIUM (test code = K) 4.1 mEq/L 3.5-5.0 N CHLORIDE (test code = CL) 105 mEq/L 100-115 N CARBON DIOXIDE (test code = CO2) 25 mEq/L 22-31 N ANION GAP (test code = GAP) 11.60 10-20 N GLUCOSE (test code = GLU) 344 mg/dL 65-110 H BLOOD UREA NITROGEN (test code = 7 mg/dL 7-18 N BUN) GLOMERULAR FILTRATION RATE (test 65 ml/min >60 N code = GFR) CREATININE (test code = CREAT) 1.0 mg/dL 0.5-1.0 N CALCIUM (test code = CA) 7.1 mg/dL 8.4-10.2 L CBC W/AUTO [id number] 18:05:00 Test Item Value Reference Range Interpretation Comments WHITE BLOOD CELL 28.6 K/mm3 6.6-12.1 HH RESULTS GILBERT IFIED BY (test code = WBC) REPEAT KEIRA LYSISRESULTS CALLED TO KARINA VILLALTA .READ BACK & CO NFIRMED? Y.BY F.LAB.RV 02/16/18 1730. RED BLOOD CELL (test 5.23 M/mm3 3.45-5.01 H code = RBC) HEMOGLOBIN (test 13.9 g/dL 10.7-13.9 N code = HGB) HEMATOCRIT (test 44.6 % 32.1-42.1 H code = HCT) MEAN CELL VOLUME 85 fL 84.1-94.8 N (test code = MCV) MEAN CELL HGB (test 26.6 pg 27-35 L code = MCH) MEAN CELL HGB 31.2 gm/dL 32.2-34.1 L CONCETRATION (test code = MCHC) RED CELL 14.7 % 12.4-16.5 N DISTRIBUTION WIDTH (test code = RDW) PLATELET COUNT (test 223 K/mm3 133-385 code = PLT) IMMATURE PLATELET 0.0 % 0.0-10.8 N FRACTION (test code = IPF) MEAN PLATELET VOLUME 10.9 fl 9.1-12.7 N (test code = MPV) MANUAL DIFF REQUIRED YES (test code = MDIFF) RBC MORPHOLOGY NORMAL NORMAL REQUIRED (test code = RBCM) PLATELET MORPHOLOGY NORMAL NORMAL REQUIRED (test code = PLTMR) WBC [id number] 18:05:00 Test Item Value Reference Range Interpretation Comments TOTAL CELLS COUNTED (test code = 100 #CELLS TCC) SEGMENTED NEUTROPHILS (test code = 88 % 56.5-79.4 H SEG) BAND NEUTROPHIL (test code = BAND) 4 % 0-5 N LYMPHOCYTE (test code = LYMPH) 6 % 20-40 L MONOCYTE (test code = MON) 2 % 0-8 N PLATELET ESTIMATE (test code = ADEQUATE ADEQ PLTEST) PLATELET MORPHOLOGY (test code = NORMAL NORMAL PLTMORPH) CHEMISTRY 7 [id number] 17:48:00 Test Item Value Reference Range Interpretation Comments SODIUM (test code = NA) 134 mEq/L 135-145 L POTASSIUM (test code = K) 5.7 mEq/L 3.5-5.0 H CHLORIDE (test code = CL) 101 mEq/L 100-115 N CARBON DIOXIDE (test code = CO2) 22 mEq/L 22-31 N ANION GAP (test code = GAP) 16.70 10-20 N GLUCOSE (test code = GLU) 371 mg/dL 65-110 H BLOOD UREA NITROGEN (test code = 8 mg/dL 7-18 BUN) GLOMERULAR FILTRATION RATE (test 74 ml/min >60 N code = GFR) CREATININE (test code = CREAT) 0.9 mg/dL 0.5-1.0 N CALCIUM (test code = CA) 7.5 mg/dL 8.4-10.2 L CBC W/AUTO [id number] 17:32:00 Test Item Value Reference Range Interpretation Comments WHITE BLOOD CELL 28.6 K/mm3 6.6-12.1 HH RESULTS GILBERT IFIED BY (test code = WBC) REPEAT KEIRA LYSISRESULTS CALLED TO KARINA VILLALTA .READ BACK & CO NFIRMED? Y.BY [email or web address] 1 02/16/18 3959. RED BLOOD CELL (test 5.23 M/mm3 3.45-5.01 H code = RBC) HEMOGLOBIN (test 13.9 g/dL 10.7-13.9 N code = HGB) HEMATOCRIT (test 44.6 % 32.1-42.1 H code = HCT) MEAN CELL VOLUME 85 fL 84.1-94.8 N (test code = MCV) MEAN CELL HGB (test 26.6 pg 27-35 L code = MCH) MEAN CELL HGB 31.2 gm/dL 32.2-34.1 L CONCETRATION (test code = MCHC) RED CELL 14.7 % 12.4-16.5 N DISTRIBUTION WIDTH (test code = RDW) PLATELET COUNT (test 223 K/mm3 133-385 code = PLT) IMMATURE PLATELET 0.0 % 0.0-10.8 N FRACTION (test code = IPF) MEAN PLATELET VOLUME 10.9 fl 9.1-12.7 N (test code = MPV) MANUAL DIFF REQUIRED YES (test code = MDIFF) RBC MORPHOLOGY NORMAL REQUIRED (test code = RBCM) PLATELET MORPHOLOGY NORMAL REQUIRED (test code = PLTMR) WBC [id number] 17:32:00 Test Item Value Reference Range Interpretation Comments SEGMENTED NEUTROPHILS (test code = SEG) % 56.5-79.4 LYMPHOCYTE (test code = LYMPH) % 20-40 CBC W/AUTO [id number] 17:32:00 Test Item Value Reference Range Interpretation Comments WHITE BLOOD CELL 28.6 K/mm3 6.6-12.1 HH RESULTS GILBERT IFIED BY (test code = WBC) REPEAT KEIRA LYSISRESULTS CALLED TO KARINA VILLALTA .READ BACK & CO NFIRMED? Y.BY FIzaLAB.RV 1 02/16/18 5280. RED BLOOD CELL (test 5.23 M/mm3 3.45-5.01 H code = RBC) HEMOGLOBIN (test 13.9 g/dL 10.7-13.9 N code = HGB) HEMATOCRIT (test 44.6 % 32.1-42.1 H code = HCT) MEAN CELL VOLUME 85 fL 84.1-94.8 N (test code = MCV) MEAN CELL HGB (test 26.6 pg 27-35 L code = MCH) MEAN CELL HGB 31.2 gm/dL 32.2-34.1 L CONCETRATION (test code = MCHC) RED CELL 14.7 % 12.4-16.5 N DISTRIBUTION WIDTH (test code = RDW) PLATELET COUNT (test 223 K/mm3 133-385 code = PLT) IMMATURE PLATELET 0.0 % 0.0-10.8 N FRACTION (test code = IPF) MEAN PLATELET VOLUME 10.9 fl 9.1-12.7 N (test code = MPV) MANUAL DIFF REQUIRED YES (test code = MDIFF) RBC MORPHOLOGY NORMAL REQUIRED (test code = RBCM) PLATELET MORPHOLOGY NORMAL REQUIRED (test code = PLTMR) WBC [id number] 17:32:00 Test Item Value Reference Range Interpretation Comments SEGMENTED NEUTROPHILS (test code = SEG) % 56.5-79.4 LYMPHOCYTE (test code = LYMPH) % 20-40 [id number] 14:59:00 Test Item Value Reference Range Interpretation Comments GLUBED (test code = GLUBED) 288 mg/dL 65-110 H [id number] 06:04:00 Test Item Value Reference Range Interpretation Comments GLUBED (test code = GLUBED) 201 mg/dL 65-110 H URINALYSIS [id number] 03:54:00 Test Item Value Reference Range Interpretation Comments UA COLOR (test code = COLU) YELLOW YELLOW UA APPEARANCE (test code = Slightly-Cloudy CLEAR APPU) UA GLUCOSE DIPSTICK (test 3+ NEG A code = DGLUU) UA BILIRUBIN DIPSTICK (test NEGATIVE NEG code = BILU) UA KETONE DIPSTICK (test code NEGATIVE NEG = KETU) UA SPECIFIC GRAVITY (test 1.033 1.001-1.035 N code = SGU) UA BLOOD DIPSTICK (test code NEG NEG = TYRA) UA PH DIPSTICK (test code = 6.0 5-9 DELMY) UA PROTEIN DIPSTICK (test NEGATIVE NEG code = PROU) UA UROBILINIOGEN DIPSTICK NEGATIVE mg/dL NEG (test code = URO) UA NITRITE DIPSTICK (test NEG NEG code = SANDRITA) UA LEUKOCYTE ESTERASE 2+ NEG A DIPSTICK (test code = LEUU) UA WBC (test code = WBCU) 20-30 #/hpf NONE SEEN A UA RBC (test code = RBCU) 5-10 #/hpf NONE SEEN A UA EPITHELIAL CELLS (test MANY #/HPF RARE-FEW A code = EPIU) UA BACTERIA (test code = RARE /HPF RARE-FEW BACU) UA MUCUS (test code = MUCU) 2+ NONE SEEN URINE SAMPLE: CLEAN CATCHComment URINE WITH CULTUREUR HCG [id number] 03:54:00 Test Item Value Reference Range Interpretation Comments UR HCG QUAL (test NEGATIVE 1. Very di lute urine code = HCGQLU) specimens, as indicated by a lowspecific g ravity, may not contain rep resentative levels ofhCG. 2 . False negative result s may occur when the levels of hCGare below the sensi tivity level of the test. If is still suspec darshan, a first morningurine sp ecimen should be colle cted 48 hours later and tested. URINE SAMPLE: CLEAN CATCHComment URINE WITH CULTUREURINALYSIS [id number] 03:38:00 Test Item Value Reference Range Interpretation Comments UA COLOR (test code = COLU) YELLOW UA APPEARANCE (test code = APPU) CLEAR UA GLUCOSE DIPSTICK (test code = NEGATIVE DGLUU) UA BILIRUBIN DIPSTICK (test code = NEGATIVE BILU) UA KETONE DIPSTICK (test code = KETU) NEGATIVE UA SPECIFIC GRAVITY (test code = SGU) 1.001-1.035 UA BLOOD DIPSTICK (test code = TYRA) NEGATIVE UA PH DIPSTICK (test code = DELMY) 5-9 UA PROTEIN DIPSTICK (test code = PROU) NEGATIVE UA UROBILINIOGEN DIPSTICK (test code = mg/dL NEG URO) UA NITRITE DIPSTICK (test code = SANDRITA) NEGATIVE UA LEUKOCYTE ESTERASE DIPSTICK (test NEG code = LEUU) UA WBC (test code = WBCU) #/hpf NONE SEEN UA EPITHELIAL CELLS (test code = EPIU) #/HPF RARE-FEW URINE SAMPLE: CLEAN CATCHComment URINE WITH CULTUREUR HCG [id number] 03:38:00 Test Item Value Reference Range Interpretation Comments UR HCG QUAL (test NEGATIVE 1. Very di lute urine code = HCGQLU) specimens, as indicated by a lowspecific g ravity, may not contain rep resentative levels ofhCG. 2 . False negative result s may occur when the levels of hCGare below the sensi tivity level of the test. If is still suspec darshan, a first morningurine sp ecimen should be colle cted 48 hours later and tested. URINE SAMPLE: CLEAN CATCHComment URINE WITH [id number] 22:09:00 Test Item Value Reference Range Interpretation Comments GLUBED (test code = 263 mg/dL 65-110 H Phsician Notified GLUBED) [id number] 17:08:00 Test Item Value Reference Range Interpretation Comments GLUBED (test code = GLUBED) 286 mg/dL 65-110 H [id number] 15:28:00 Test Item Value Reference Range Interpretation Comments CREATININE (test code = CREAT) 0.9 mg/dL 0.5-1.0 N IS THIS A ONCE DAILY SINGLE DOSE? YESDATE OF LAST DOSE: 12/16/18TIME OF LAST DOSE: [id number] 15:28:00 Test Item Value Reference Range Interpretation Comments GENTAMICIN (test code 0.8 mcg/mL 0-14 N Adult normal range = GENT) for once daily dose of Gentamicin m ay beup to 24 mcg/ mL. Gentamicin resu lts must be correla darshan withthe time th e dose was administere d. IS THIS A ONCE DAILY SINGLE DOSE? YESDATE OF LAST DOSE: 12/16/18TIME OF LAST DOSE: [id number] 13:24:00 Test Item Value Reference Range Interpretation Comments GLUBED (test code = GLUBED) 274 mg/dL 65-110 H HCG [id number] 12:13:00 Test Item Value Reference Range Interpretation Comments HCG SERUM (test <1 INTERPRETATI ON:VALUES BETWEEN code = HCG) 15-20 milliInte rnational units/mL NEED T O BERETESTED WITHIN 48 HOURS . All units for these ranges ar e in milliInternatio nalunits/mL0-1 WK AFTER CONCEP TION 0-50 1-2 W KS AFTER CONCEPTION 40-3002-3 WKS A FTER CONCEPTION 100-1 ,0003-4 WKS AFTER CONCEPTIO N 500-6,0001-2 MO NTHS AFTER CONCEPTION 5,000-200,0002- 3 MONTHS AFTER CONCEPTION 10,000-100,0002 ND TRIMESTER 3,000-50,0003RD TRIMESTER 1 ,000-50,000 SPECIMENS WITH AN HCG LEVEL FROM 0-6 milliInternatio nalunits/mL SHOULD BE CONSI DERED NEGATIVE PT.IS NOT IN THE ROOM AT THIS TIME. PHLEB/RBCHEMISTRY 7 [id number] 12:11:00 Test Item Value Reference Range Interpretation Comments SODIUM (test code = NA) 135 mEq/L 135-145 N POTASSIUM (test code = K) 4.0 mEq/L 3.5-5.0 N CHLORIDE (test code = CL) 100 mEq/L 100-115 N CARBON DIOXIDE (test code = CO2) 27 mEq/L 22-31 N ANION GAP (test code = GAP) 12.10 10-20 N GLUCOSE (test code = GLU) 259 mg/dL 65-110 H BLOOD UREA NITROGEN (test code = 5 mg/dL 7-18 L BUN) GLOMERULAR FILTRATION RATE (test 98 ml/min >60 N code = GFR) CREATININE (test code = CREAT) 0.7 mg/dL 0.5-1.0 N CALCIUM (test code = CA) 8.5 mg/dL 8.4-10.2 N PT.IS NOT IN THE ROOM AT THIS TIME. @ 05170ZK TRY 1018 AM. PHLEB/RBCBC W/AUTO [id number] 11:40:00 Test Item Value Reference Range Interpretation Comments WHITE BLOOD CELL (test code = WBC) 8.2 K/mm3 6.6-12.1 N RED BLOOD CELL (test code = RBC) 4.74 M/mm3 3.45-5.01 N HEMOGLOBIN (test code = HGB) 11.8 g/dL 10.7-13.9 N HEMATOCRIT (test code = HCT) 38.9 % 32.1-42.1 N MEAN CELL VOLUME (test code = MCV) 82 fL 84.1-94.8 L MEAN CELL HGB (test code = MCH) 24.9 pg 27-35 L MEAN CELL HGB CONCETRATION (test 30.3 gm/dL 32.2-34.1 L code = MCHC) RED CELL DISTRIBUTION WIDTH (test 13.4 % 12.4-16.5 N code = RDW) PLATELET COUNT (test code = PLT) 373 K/mm3 133-385 N IMMATURE PLATELET FRACTION (test 0.0 % 0.0-10.8 N code = IPF) MEAN PLATELET VOLUME (test code = 10.7 fl 9.1-12.7 N MPV) NEUTROPHIL % (test code = NT%) 70.4 % 56.5-79.4 N LYMPHOCYTE % (test code = LY%) 18.5 % 14.3-34.3 N MONOCYTE % (test code = MO%) 8.2 % 5.1-10.4 N EOSINOPHIL % (test code = EO%) 1.7 % 0.1-3.0 N BASOPHIL % (test code = BA%) 0.7 % 0.1-1.0 N NEUTROPHIL # (test code = NT#) 5.7 K/mm3 LYMPHOCYTE # (test code = LY#) 1.5 K/mm3 MONOCYTE # (test code = MO#) 0.7 K/mm3 EOSINOPHIL # (test code = EO#) 0.14 K/mm3 BASOPHIL # (test code = BA#) 0.1 K/mm3 RBC MORPHOLOGY REQUIRED (test code NORMAL NORMAL = RBCM) PLATELET MORPHOLOGY REQUIRED (test NORMAL NORMAL code = PLTMR) COME BACK LATER- CT ABD PELVIS [id number] 11:01:00 Patient Name: SOHAIL THOMPSON Unit No: [id number] EXAMS: CPT CODE: [id number] CT ABD PELVIS W/CONT 60782 Exam: CT scan of the abdomen and [...] wall demonstrates no significant abnormalities. IMPRESSION: [facility] NAME: SOHAIL THOMPSON Radiology Department PHYS: Arpan Wallace MD [address] : 1990 AGE: 28 SEX: F [place], [place] [address] LOC: F.4672 A PHONE #: [phone] EXAM DATE: 12/16/2018 STATUS: ADM IN FAX #: [phone] RAD NO: Page 1 Signed Report 1 Patient Name: SOHAIL THOMPSON Unit No: [id number] EXAMS: CPT CODE: [id number] CT ABD PELVIS W/CONT 89293 <Continued> Bilateral adnexal masses as described above. The patient gives a history of abscess drainage at [facility] October 05, 2018. She describes having drains and drainage bags on either side. The findings in the adnexal region may be sequela of this procedure. Prior images have been requested. at 1101 Reported and signed by: Charissa Arreola MD CC: Lianet Weir Technologist: Sarthak Coleman, RT, CT CTDI: 21.83 DLP: 1880.60 Trnscrbd D/ (1101) Sampson [facility] NAME: SOHAIL THOMPSON Radiology Department PHYS: Arpan Wallace MD [address] : 1990 AGE: 28 SEX: F [place] [address] LOC: Morteza.4672 A PHONE #: [phone] EXAM DATE: 12/16/2018 STATUS: ADM IN FAX #:[phone] RAD NO: Page 2 Signed Report 1 Patient Name: SOHAIL THOMPSON Unit No: [id number] EXAMS: CPT CODE: [id number] CT ABD PELVIS W/CONT 38815 <Continued> Orig Print D/T: S: 12/16/2018 (1104) [facility] NAME: SOHAIL THOMPSON Radiology Department PHYS: Arpan Wallace MD[address] : 1990 AGE: 28 SEX: F [place] [address] LOC: F.4672 A PHONE #: [phone] EXAM DATE: 12/16/2018 STATUS: ADM IN FAX #: [phone] RAD NO: Page 3 Signed Report [id number] 07:07:00 Test Item Value Reference Range Interpretation Comments GLUBED (test code = GLUBED) 241 mg/dL 65-110 H CREATINE KINASE (CK)2018-12-15 19:52:00 Test Item Value Reference Range Interpretation Comments CREATINE KINASE (CK) (test code = 60 Units/L 26-192 N CK) [id number] 16:55:00 Test Item Value Reference Range Interpretation Comments GLUBED (test code = 339 mg/dL 65-110 H Phsician Notified GLUBED) COMPREHENSIVE METABOLIC [id number] 11:01:00 Test Item Value Reference Range Interpretation Comments SODIUM (test code = NA) 134 mEq/L 135-145 L POTASSIUM (test code = K) 3.9 mEq/L 3.5-5.0 N CHLORIDE (test code = CL) 100 mEq/L 100-115 N CARBON DIOXIDE (test code = CO2) 26 mEq/L 22-31 N ANION GAP (test code = GAP) 12.40 10-20 N GLUCOSE (test code = GLU) 371 mg/dL 65-110 H BLOOD UREA NITROGEN (test code = 9 mg/dL 7-18 N BUN) GLOMERULAR FILTRATION RATE (test 84 ml/min >60 N code = GFR) CREATININE (test code = CREAT) 0.8 mg/dL 0.5-1.0 N TOTAL PROTEIN (test code = PROT) 8.3 gm/dL 6.3-8.2 H ALBUMIN (test code = ALB) 3.0 gm/dL 3.4-4.8 L CALCIUM (test code = CA) 8.3 mg/dL 8.4-10.2 L BILIRUBIN TOTAL (test code = 0.7 mg/dL 0.2-1.0 N BILT) SGOT/AST (test code = AST) 39 units/L 15-37 H SGPT/ALT (test code = ALT) 42 units/L 12-78 N ALKALINE PHOSPHATASE TOTAL (test 103 units/L 46-116 N code = ALKP) T4 [id number] 11:01:00 Test Item Value Reference Range Interpretation Comments T4 FREE (test code = T4F) 1.24 ng/dL 0.76-1.46 N THYROID STIMULATING [id number] 11:01:00 Test Item Value Reference Range Interpretation Comments THYROID STIMULATING 3.27 0.36-3.74 N Test Per formed in HORMONE (test code = MicroIn ternational Units/mL TSH) GLYCOSYLATED HEMOGLOBIN (HA1C)2018-12-15 11:01:00 Test Item Value Reference Range Interpretation Comments GLYCOSYLATED 9.2 % 4.8-5.9 H Any condition t hat shortens HEMOGLOBIN (HA1C) erythocyte survival or (test code = GLYHGB) decreas esmean erythrocyte age (e.g., thelma very from acute blood los s,hemolytic anemia) will fa lsely lower HGBA1c resultsr egardless of the method used . HGBA1c results from madiha rose HbSS, HbCC, and HbSc must be interpreted with cautiongiven th e pathological pr ocesses, including anemi a,increased red cell turnov er, transfusion req uirements, thatadversely i mpact HGBA1c as a marker of long-term glycemiccontrol . Alternative for ms of testing such as fructosaminesho uld be considered for these patients. GLYCOSYLATED HEMOGLOBIN [id number] 11:01:00 Test Item Value Reference Range Interpretation Comments GLYCOSYLATED 9.2 % 4.8-5.9 H Any condition t hat HEMOGLOBIN (HA1C) shortens e rythocyte (test code = survival or dec reasesmean GLYHGB) erythrocyte age (e.g., recovery from a cute blood loss,hemolytic anemia) will falsely lo wer HGBA1c resultsregardle ss of the method used. H GBA1c results from madiha rose HbSS, HbCC, and HbSc must be interpreted with cautiongiven th e pathological pr ocesses, including anemia,increase d red cell turnover, trans fusion requirements, thatadversely i mpact HGBA1c as a mar ker of long-term glycemiccontrol . Alternative for ms of testing such as fructosaminesho uld be considered for these patients. MEAN BLOOD GLUCOSE 217 MG/DL 70-110 H (test code = MBG) [id number] 10:19:00 Test Item Value Reference Range Interpretation Comments GLUBED (test code = 290 mg/dL 65-110 H Phsician Notified GLUBED) COMPREHENSIVE METABOLIC [id number] 07:23:00 Test Item Value Reference Range Interpretation Comments SODIUM (test code = NA) 134 mEq/L 135-145 L POTASSIUM (test code = K) 3.9 mEq/L 3.5-5.0 N CHLORIDE (test code = CL) 100 mEq/L 100-115 N CARBON DIOXIDE (test code = CO2) 26 mEq/L 22-31 N ANION GAP (test code = GAP) 12.40 10-20 N GLUCOSE (test code = GLU) 371 mg/dL 65-110 H BLOOD UREA NITROGEN (test code = 9 mg/dL 7-18 N BUN) GLOMERULAR FILTRATION RATE (test 84 ml/min >60 N code = GFR) CREATININE (test code = CREAT) 0.8 mg/dL 0.5-1.0 N TOTAL PROTEIN (test code = PROT) 8.3 gm/dL 6.3-8.2 H ALBUMIN (test code = ALB) 3.0 gm/dL 3.4-4.8 L CALCIUM (test code = CA) 8.3 mg/dL 8.4-10.2 L BILIRUBIN TOTAL (test code = 0.7 mg/dL 0.2-1.0 N BILT) SGOT/AST (test code = AST) 39 units/L 15-37 H SGPT/ALT (test code = ALT) 42 units/L 12-78 N ALKALINE PHOSPHATASE TOTAL (test 103 units/L 46-116 N code = ALKP) T4 [id number] 07:23:00 Test Item Value Reference Range Interpretation Comments T4 FREE (test code = T4F) 1.24 ng/dL 0.76-1.46 N THYROID STIMULATING [id number] 07:23:00 Test Item Value Reference Range Interpretation Comments THYROID STIMULATING 3.27 0.36-3.74 N Test Per formed in HORMONE (test code = MicroIn ternational Units/mL TSH) GLYCOSYLATED HEMOGLOBIN (HA1C)2018-12-15 07:23:00 Test Item Value Reference Range Interpretation Comments GLYCOSYLATED HEMOGLOBIN (HA1C) (test code = GLYHGB) [id number] 06:04:00 Test Item Value Reference Range Interpretation Comments GLUBED (test code = 308 mg/dL 65-110 H Phsician Notified GLUBED) COMPREHENSIVE METABOLIC [id number] 05:10:00 Test Item Value Reference Range Interpretation Comments SODIUM (test code = NA) 134 mEq/L 135-145 L POTASSIUM (test code = K) 3.9 mEq/L 3.5-5.0 N CHLORIDE (test code = CL) 100 mEq/L 100-115 N CARBON DIOXIDE (test code = CO2) 26 mEq/L 22-31 N ANION GAP (test code = GAP) 12.40 10-20 N GLUCOSE (test code = GLU) 371 mg/dL 65-110 H BLOOD UREA NITROGEN (test code = 9 mg/dL 7-18 N BUN) GLOMERULAR FILTRATION RATE (test 84 ml/min >60 N code = GFR) CREATININE (test code = CREAT) 0.8 mg/dL 0.5-1.0 N TOTAL PROTEIN (test code = PROT) 8.3 gm/dL 6.3-8.2 H ALBUMIN (test code = ALB) 3.0 gm/dL 3.4-4.8 L CALCIUM (test code = CA) 8.3 mg/dL 8.4-10.2 L BILIRUBIN TOTAL (test code = 0.7 mg/dL 0.2-1.0 N BILT) SGOT/AST (test code = AST) 39 units/L 15-37 H SGPT/ALT (test code = ALT) 42 units/L 12-78 N ALKALINE PHOSPHATASE TOTAL (test 103 units/L 46-116 N code = ALKP) THYROID STIMULATING [id number] 05:10:00 Test Item Value Reference Range Interpretation Comments THYROID STIMULATING 3.27 0.36-3.74 N Test Per formed in HORMONE (test code = MicroIn ternational Units/mL TSH) GLYCOSYLATED HEMOGLOBIN (HA1C)2018-12-15 05:10:00 Test Item Value Reference Range Interpretation Comments GLYCOSYLATED HEMOGLOBIN (HA1C) (test code = GLYHGB) LACTIC [id number] 04:53:00 Test Item Value Reference Range Interpretation Comments LACTIC ACID (test code = LACT) 1.5 MMOL/L 0.5-2.2 N CBC W/AUTO [id number] 04:30:00 Test Item Value Reference Range Interpretation Comments WHITE BLOOD CELL (test code = WBC) 9.7 K/mm3 6.6-12.1 N RED BLOOD CELL (test code = RBC) 4.46 M/mm3 3.45-5.01 N HEMOGLOBIN (test code = HGB) 11.2 g/dL 10.7-13.9 N HEMATOCRIT (test code = HCT) 36.7 % 32.1-42.1 N MEAN CELL VOLUME (test code = MCV) 82 fL 84.1-94.8 L MEAN CELL HGB (test code = MCH) 25.1 pg 27-35 L MEAN CELL HGB CONCETRATION (test 30.5 gm/dL 32.2-34.1 L code = MCHC) RED CELL DISTRIBUTION WIDTH (test 13.6 % 12.4-16.5 N code = RDW) PLATELET COUNT (test code = PLT) 373 K/mm3 133-385 N IMMATURE PLATELET FRACTION (test 0.0 % 0.0-10.8 N code = IPF) MEAN PLATELET VOLUME (test code = 11.2 fl 9.1-12.7 N MPV) NEUTROPHIL % (test code = NT%) 74.8 % 56.5-79.4 N LYMPHOCYTE % (test code = LY%) 14.8 % 14.3-34.3 N MONOCYTE % (test code = MO%) 7.3 % 5.1-10.4 N EOSINOPHIL % (test code = EO%) 2.0 % 0.1-3.0 N BASOPHIL % (test code = BA%) 0.6 % 0.1-1.0 N NEUTROPHIL # (test code = NT#) 7.3 K/mm3 LYMPHOCYTE # (test code = LY#) 1.4 K/mm3 MONOCYTE # (test code = MO#) 0.7 K/mm3 EOSINOPHIL # (test code = EO#) 0.19 K/mm3 BASOPHIL # (test code = BA#) 0.1 K/mm3 RBC MORPHOLOGY REQUIRED (test code NORMAL NORMAL = RBCM) PLATELET MORPHOLOGY REQUIRED (test NORMAL NORMAL code = PLTMR) - CT HEAD/BRAIN W/O [id number] 04:27:00 Patient Name: SOHAIL THOMPSON Unit No: [id number] EXAMS: CPT CODE: [id number] CT HEAD/BRAIN W/O CONT [id number] EXAM: CT, CT HEAD/BRAIN W/O CONTRAST; 12/15/2018, [...] No low attenuation demarcating areas on this non- contrast CT to suggest subacute stroke. VENTRICLES: The [...] acute hemorrhage or subacute stroke. SL: BRANDIN [facility] NAME: SOHAIL THOMPSON Radiology Department PHYS: Lianet Morrow MD [address] : 1990 AGE: 28 SEX: F [place], [place] [address] LOC: Senia[address] PHONE #: [phone] EXAM DATE: 12/15/2018 STATUS: ADM IN FAX #: [phone] RAD NO: Page 1 Signed Report 1 Patient Name: SOHAIL THOMPSON UnitNo: [id number] EXAMS: CPT CODE: [id number] CT HEAD/BRAIN W/O CONT 24564 <Continued> at 0427 Reported and signed by: Paul Barreto M.D. CC: Liaent Weir Technologist: JENNI MEDINA, RT CTDI: 53.12 DLP: 879.86 Trnscrbd D/ (0427) [email or web address] [facility] NAME:ROSHANSOHAIL Radiology Department PHYS: Lianet Morrow MD [address] : 1990 AGE: 28 SEX: F [place], [place] [address] LOC: F.4672 A PHONE #: [phone] EXAM DATE: 12/15/2018 STATUS: ADM IN FAX #: [phone] RAD NO: Page 2 Signed Report 1 Patient Name: ROSHANSOHAIL Unit No: [id number] EXAMS: CPT CODE: [id number] CT HEAD/BRAIN W/O CONT 72656 <Continued> Orig Print D/T: S: 12/15/2018 (0430) [facility] NAME: SOHAIL THOMPSON Radiology DepartmentPHYS: Lianet Morrow MD [address] : 1990 AGE: 28 SEX: F [place], [place] [address] LOC: F.4672 A PHONE #: [phone] EXAM DATE: 12/15/2018 STATUS: ADM IN FAX #: [phone] RAD NO: Page 3 Signed Report 1
[2020-06-09 00:17] LABS: Absolute Lymphocytes (CBC) 2.9 K/uL (0.7-4.9); Basophils % 0.5 % (0-1.3); Hematocrit 41.4 % (36.0-45.0); Lymphocytes % 26.2 % (15.3-44.8); MPV 10.4 fL (7.6-11.3); RBC Red Blood Cell Count 4.75 M/uL (3.86-4.86)
[2020-06-09] MEDS ORDERED: NA CHLORIDE 0.9% 1,000 ML ONE (00:27)
[2020-06-09 00:48] LABS: ALT/SGPT 40 U/L (12-78); AST/SGOT 16 U/L (15-37); Albumin 3.7 g/dL (3.4-5.0); Alkaline Phosphatase 113 U/L (45-117); BUN Blood Urea Nitrogen 13 mg/dL (7-18); Bicarbonate 22 mmol/L (21-32); Bilirubin Direct 0.2 mg/dL (0-0.2); Bilirubin Total 1.1 mg/dL (0.2-1.0); Lipase 150 U/L (73-393); Potassium 3.3 mmol/L (3.5-5.1); Protein, Total 7.9 g/dL (6.4-8.2); Sodium Level 135 mmol/L (136-145)
[2020-06-09 00:50] LABS: Glucose Level 412 mg/dL (74-106)
[2020-06-09 01:41] LABS: Urine Blood Negative (Negative); Urine Glucose 2+ (Negative); Urine Protein Negative (Negative); Urine Specific Gravity 1.015 (1.005-1.030); Urine pH 5.5 (5.0-7.0)
[2020-06-09] MEDS ORDERED: POTASSIUM CL SA 10 MEQ TAB PO ONE (01:44)
[2020-06-09] MEDS ORDERED: INSULIN -REGULAR HUMAN 50 UNIT/0.5 ML ML ONE (01:46)
[2020-06-09 01:49] LABS: Urine Specific Gravity/Preg 1.015 (1.005-1.030)
--- NOTE | 2020-06-09 02:36 | EDPHYS ---
Physician Documentation [facility] Name: Stacy Islas Age: 29 yrs Sex: Female : 1990 Arrival Date: 06/08/2020 Time: 23:53 Bed 15 Private MD: ED Physician Jw Carrillo HPI: 06/09 00:37 This 29 yrs old Female presents to ER via EMS with complaints of High Blood jr8 Surgar, Abdominal Pain. 00:37 EMS called out by boyfriend of patient. Stated that she was not acting right and that jr8 her blood sugar was elevated. Given 45 units of insulin prior to arrival. EMS stated that her blood sugar was in the 400s. Patient alert and oriented to person, place, time, event upon arrival. Stated that her stomach was hurting her and that she vomited once prior to arrival. Now feeling better. Stated that she becomes more confused when her sugars become elevated. Has been having a hard time controlling them and forgetful to take her short acting insulin. Severity of symptoms: At their worst the symptoms were moderate in the emergency department the symptoms have improved. The patient has experienced similar episodes in the past, a few times. The patient has not recently seen a physician. 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 - Social history:: Smoking status: Patient denies any tobacco usage or history of. ROS: 06/09 00:37 Eyes: Negative for injury, pain, redness, and discharge, ENT: Negative for injury, jr8 pain, and discharge, Neck: Negative for injury, pain, and swelling, Cardiovascular: Negative for chest pain, palpitations, and edema, Respiratory: Negative for shortness of breath, cough, wheezing, and pleuritic chest pain, Back: Negative for injury and pain, MS/Extremity: Negative for injury and deformity, Skin: Negative for injury, rash, and discoloration. Abdomen/GI: Positive for abdominal pain, nausea and vomiting, Negative for diarrhea, constipation, abdominal cramps, abdominal distension. Neuro: Positive for altered mental status. Exam: 00:37 Eyes: Pupils equal round and reactive to light, extra-ocular motions intact. Lids and jr8 lashes normal. Conjunctiva and sclera are non-icteric and not injected. Cornea within normal limits. Periorbital areas with no swelling, redness, or edema. ENT: Nares patent. No nasal discharge, no septal abnormalities noted. Tympanic membranes are normal and external auditory canals are clear. Oropharynx with no redness, swelling, or masses, exudates, or evidence of obstruction, uvula midline. Mucous membranes moist. Neck: Trachea midline, no thyromegaly or masses palpated, and no cervical lymphadenopathy. Supple, full range of motion without nuchal rigidity, or vertebral point tenderness. No Meningismus. Cardiovascular: Regular rate and rhythm with a normal S1 and S2. No gallops, murmurs, or rubs. Normal PMI, no JVD. No pulse deficits. Respiratory: Lungs have equal breath sounds bilaterally, clear to auscultation and percussion. No rales, rhonchi or wheezes noted. No increased work of breathing, no retractions or nasal flaring. Abdomen/GI: Soft, non-tender, with normal bowel sounds. No distension or tympany. No guarding or rebound. No evidence of tenderness throughout. Back: No spinal tenderness. No costovertebral tenderness. Full range of motion. Skin: Warm, dry with normal turgor. Normal color with no rashes, no lesions, and no evidence of cellulitis. MS/ Extremity: Pulses equal, no cyanosis. Neurovascular intact. Full, normal range of motion. Neuro: Awake and alert, GCS 15, oriented to person, place, time, and situation. Cranial nerves II-XII grossly intact. Motor strength 5/5 in all extremities. Sensory grossly intact. Vital Signs: 06/08 23:54 BP 130 / 87; Pulse 92; Resp 18; Temp 97.4; Pulse Ox 95% on R/A; ea 06/09 01:43 BP 100 / 72; Pulse 78; Resp 18; Pulse Ox 98% ; ea 02:44 BP 110 / 69; Pulse 85; Resp 18; Pulse Ox 98% ; ea MDM: 06/08 23:59 Patient medically screened. [facility] 06/09 01:20 Data reviewed: vital signs, nurses notes, lab test result(s), and as a result, I will jr8 discharge patient. Data interpreted: Pulse oximetry: on room air is 95 %. Interpretation: normal. Counseling: I had a detailed discussion with the patient and/or guardian regarding: the historical points, exam findings, and any diagnostic results supporting the discharge/admit diagnosis, lab results, the need for outpatient follow up, a family practitioner, to return to the emergency department if symptoms worsen or persist or if there are any questions or concerns that arise at home. Response to treatment: the patient's symptoms have markedly improved after treatment, patient is well hydrated. blood sugars to more manageable level . 06/09 00:05 Order name: Glucose, Ancillary Testing; Complete Time: 00:10 [facility] 06/09 00:08 Order name: Glucose, Ancillary Testing [facility] 06/09 00:13 Order name: Basic Metabolic Panel; Complete Time: 00:55 [facility] 06/09 00:13 Order name: Liver (Hepatic) Function; Complete Time: 01:07 [facility] 06/09 00:13 Order name: Acetone Level; Complete Time: 01:07 [facility] 06/09 00:13 Order name: Lipase; Complete Time: 01:07 [facility] 06/09 00:13 Order name: CBC with Automated Diff; Complete Time: 00:37 [facility] 06/09 01:30 Order name: Glucose, Ancillary Testing; Complete Time: 01:55 [facility] 06/09 01:41 Order name: Urine Dipstick-Ancillary [facility] 06/09 00:00 Order name: IV Saline Lock; Complete Time: 00:03 [facility] 06/09 00:00 Order name: Labs collected and sent; Complete Time: 00:03 [facility] 06/09 00:00 Order name: Glucose Level; Complete Time: 00:11 [facility] 06/09 00:01 Order name: Urine Test (obtain specimen); Complete Time: 01:48 [facility] 06/09 00:01 Order name: Urine Dipstick-Ancillary (obtain specimen); Complete Time: 01:48 [facility] 06/09 01:41 Order name: Urine --Ancillary (enter results) tt3 06/09 02:40 Order name: Glucose, Ancillary Testing; Complete Time: 13:30 [facility] 06/09 02:40 Order name: Glucose, Ancillary Testing [facility] Administered Medications: 00:11 Drug: NS 0.9% 1000 ml Route: IV; Rate: 1000 ml; Site: left hand; ea 01:42 Drug: Potassium Chloride 40 mEq Route: PO; ea 02:40 Follow up: Response: No adverse reaction ea 01:48 Drug: Insulin Regular Human 5 units {Co-Signature: [email or web address] (Ricci Jordan RN).} Route: ea IVP; Site: left forearm; 02:30 Follow up: Response: No adverse reaction ea Disposition: 04:08 Co-signature as Attending Physician, Jw Carrillo MD. 7 Disposition: 06/09/20 02:35 Discharged to Home. Impression: Hyperglycemia, unspecified. - Condition is Stable. - Discharge Instructions: Hyperglycemia, Blood Glucose Monitoring, Adult. - Work release form, Family Work Release, Medication Reconciliation Form, Thank You Letter, Antibiotic Education, Prescription Opioid Use form. - Follow up: Private Physician; When: 2 - 3 days; Reason: Recheck today's complaints, Continuance of care, Re-evaluation by your physician. - Problem is new. - Symptoms have improved. Signatures: Dispatcher [employer] [facility] Lars Schneider PA PA jr8 [place], [employer] SU[employer]-C [employer] SUPERVISOR-Cla1 Erica Hayes RN RN ea Holmes, Maurice, MD MD 7 Ricci Jordan RN [email or web address] Corrections: (The following items were deleted from the chart) 01:39 00:41 BASIC METABOLIC PANEL+C.LAB.BRZ ordered. [facility] EDMS 01:39 00:41 CBC+H.LAB.BRZ ordered. [facility] EDMS 01:39 00:41 HEPATIC FUNCTION+C.LAB.BRZ ordered. [facility] EDMS 01:39 00:41 LIPASE+C.LAB.BRZ ordered. [facility] EDMS 01:39 00:42 ACETONE, SERUM+C.LAB.BRZ ordered. [facility] EDMS 02:45 02:35 06/09/2020 02:35 Discharged to Home. Impression: Hyperglycemia, unspecified. ea Condition is Stable. Discharge Instructions: Hyperglycemia, Blood Glucose Monitoring, Adult. Forms are Work release form, Family Work Release, Medication Reconciliation Form, Thank You Letter, Antibiotic Education, Prescription Opioid Use. Follow up: Private Physician; When: 2 - 3 days; Reason: Recheck today's complaints, Continuance of care, Re-evaluation by your physician. Problem is new. Symptoms have improved. mh7
--- NOTE | 2020-06-09 02:36 | ER ---
Nurse's Notes [facility] Name: Stacy Islas Age: 29 yrs Sex: Female : 1990 Arrival Date: 06/08/2020 Time: 23:53 Bed 15 Private MD: Diagnosis: Hyperglycemia, unspecified Presentation: 06/08 23:54 Chief complaint: EMS states: Toned to pt home, boyfriend reports pt was altered and her ea blood sugar was high, boyfriend reports giving her 45 units of insulin. EMS reported 417 BGL and one episode of vomiting. Coronavirus screen: At this time, the client does not indicate any symptoms associated with coronavirus-19. Ebola Screen: No symptoms or risks identified at this time. Initial Sepsis Screen: Does the patient meet any 2 criteria? No. Patient's initial sepsis screen is negative. Does the patient have a suspected source of infection? No. Patient's initial sepsis screen is negative. Risk Assessment: Do you want to hurt yourself or someone else? Patient reports no desire to harm self or others. Onset of symptoms was June 08, 2020. 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 - Social history:: Smoking status: Patient denies any tobacco usage or history of. Screenin:57 Abuse screen: Denies threats or abuse. Nutritional screening: No deficits noted. ea Tuberculosis screening: No symptoms or risk factors identified. Fall Risk None identified. Assessment: 06/09 00:00 General: Appears in no apparent distress. Behavior is calm, cooperative, appropriate ea for age. Pain: Denies pain. Neuro: Level of Consciousness is awake, alert, obeys commands, Oriented to person, place, time. Cardiovascular: Patient's skin is warm and dry. Respiratory: Airway is patent Respiratory effort is even, unlabored, Respiratory pattern is regular, symmetrical. Derm: Skin is pink, warm \T\ dry. 01:44 Reassessment: Patient and/or family updated on plan of care and expected duration. Pain ea level reassessed. Patient is alert, oriented x 3, equal unlabored respirations, skin warm/dry/pink. 02:29 Reassessment: Patient and/or family updated on plan of care and expected duration. Pain ea level reassessed. Patient is alert, oriented x 3, equal unlabored respirations, skin warm/dry/pink. Patient states feeling better. 02:43 Reassessment: Patient and/or family updated on plan of care and expected duration. Pain ea level reassessed. Patient is alert, oriented x 3, equal unlabored respirations, skin warm/dry/pink. Discharge instruction given to patient and family, verbalized the understanding of instruction. Pt left ED ambulatory tolerating well. Vital Signs: 06/08 23:54 BP 130 / 87; Pulse 92; Resp 18; Temp 97.4; Pulse Ox 95% on R/A; ea 06/09 01:43 BP 100 / 72; Pulse 78; Resp 18; Pulse Ox 98% ; ea 02:44 BP 110 / 69; Pulse 85; Resp 18; Pulse Ox 98% ; ea ED Course: 06/08 23:53 Patient arrived in ED. ea 23:57 Triage completed. ea 23:57 Arm band placed on right wrist. Patient placed in an exam room, on a stretcher, on ea pulse oximetry. 23:57 Patient has correct armband on for positive identification. Bed in low position. Call ea light in reach. Side rails up X2. 23:59 Lars Schneider PA is PHCP. jr8 23:59 Jw Carrillo MD is Attending Physician. jr8 06/09 00:00 Inserted saline lock: 20 gauge in left wrist, using aseptic technique. jm8 00:03 Erica Hayes RN is Primary Nurse. ea 02:44 No provider procedures requiring assistance completed. IV discontinued, intact, ea bleeding controlled, No redness/swelling at site. Pressure dressing applied. Administered Medications: 00:11 Drug: NS 0.9% 1000 ml Route: IV; Rate: 1000 ml; Site: left hand; ea 01:42 Drug: Potassium Chloride 40 mEq Route: PO; ea 02:40 Follow up: Response: No adverse reaction ea 01:48 Drug: Insulin Regular Human 5 units {Co-Signature: leon (Ricci Jordan RN).} Route: ea IVP; Site: left forearm; 02:30 Follow up: Response: No adverse reaction ea Outcome: 02:35 Discharge ordered by MD. rush 02:44 Discharged to home ambulatory, with family. ea 02:44 Condition: stable 02:44 Discharge instructions given to patient, Instructed on discharge instructions, follow up and referral plans. Demonstrated understanding of instructions, follow-up care. 02:45 Patient left the ED. ea Signatures: Lars Schneider PA PA jrErica Barrera RN Jw Solorzano ea, MD MD Ricci Brooks RN RN jm8 Ricci Jordan RN [email or web address]
[2020-06-09 03:07] VITALS: TEMP 97.4
[2020-06-09 03:08] VITALS: O2SAT 98
[2020-06-09 03:10] VITALS: BP 110/69
== END 2020-06-09 02:45 | disposition home or self-care (01) ==
LOC: ER 23:50
DX: E11.65 Type 2 diabetes mellitus with hyperglycemia (principal); Z79.4 Long term (current) use of insulin; Z88.8 Allergy status to other drugs, medicaments and biological substances
CPT/HCPCS: 36415; 80048; 80076; 81003; 81025; 82010; 82947; 83690; 85025; 96374; 99284; J7030

== ENCOUNTER 2020-07-09 22:31 | Emergency (ER) | payer OTHER ==
--- OUTSIDE RECORDS SUMMARY | 2020-07-09 22:35 | XMS REPORT | Continuity of Care Document ---
:1990 Author Organization [facility] t Address [address] [place] [address] Care Team Providers Name Role Phone Vls-Lab Attending Clinician Unavailable Pascale LEO Attending Clinician Payers Payer Name Policy Type Policy Number Effective Date Expiration Date S ource Problems This patient has no known problems. Allergies, Adverse Reactions, Alerts Allergy Allergy Status Severity Reaction(s) Onset Inactive Treating Comm ents Source Name Type Date Date Clinician Penicill DA Active U 2018-02 [facility] 02-14 00:[facility]: [address] tazobact DA Active U 2018-02 [facility] am 02-14 00:00: [address] piperaci DA Active U 2018-02 [facility] llin 02-14 00:00: [address] Zosyn Adverse Active shortness of [facility] Reaction [facility] Medications Ordered Filled Start Stop [...] Yes Na Roche [address] [facility] Loryna Saraha Yes Na Roche [address] [facility] Metformin Metformin Yes Na Roche [address] [facility] [address] HCl HCl with meals [facility] ent Clinics Procedures This patient has no known procedures. Encounters Start End Encounter Admission Attending Care Care Encounter Source Date/Time Date/Time Type Type Clinicians Facility Department ID 2020-07-03 2020-07-03 Rules Examiner Vls-Lab [facility] [id number] 10:22:41 10:37:41 Visit SPECIALTY [id number] CARE [id number] CENTER AT [id number] SHONA Heavenly CHAYO 2020-06-05 2020-06-05 Office Pascale, [facility] [id number] 14:15:43 16:04:18 Visit Bryanna SPECIALTY [id number] CARE [id number] CENTER AT [id number] SHONA Andre CHAYO 2020-04-26 2020-04-26 [facility] [id number] 2020-04-26 2020-04-26 [facility] [id number] [facility] 2020-04-09 2020-04-09 [facility] [id number] [facility] 2020-04-04 2020-04-04 [facility] [id number] [facility] 2020-03-19 2020-03-19 [facility] [id number] 2020-03-19 2020-03-19 Outpatient [facility] [id number] [facility] 2020-02-15 2020-02-15 Outpatient [facility] [id number] [facility] 2020-01-25 2020-01-25 Outpatient [facility] [id number] [facility] 2020-01-24 2020-01-24 Outpatient [facility] [id number] [facility] 2019-12-07 2019-12-07 Outpatient [facility] [id number] [facility] 2019-11-22 2019-11-22 Outpatient [facility] [id number] [facility] 2019-11-14 2019-11-14 Outpatient [facility] [id number] [facility] 2019 2019 [facility] [id number] 13:40:00 13:40:00 t [employer] [place] [facility] Medicine [facility] Outpati ent Clinics 2018-05-14 2018-05-14 [facility] [id number] 11:52:00 11:52:00 [facility] Outpat[facility] ent Clinics 2018-04-27 2018-04-27 [facility] [id number] 10:40:00 10:40:00 [facility] Outpat[facility] ent Clinics 2018-04-27 2018-04-27 [facility] [id number] 10:07:00 10:07:00 t [facility] - Care [facility] 2018-04-27 2018-04-27 [facility] [id number] 09:15:00 09:15:00 t Specialty/U Tanisha kes - Specialty rology [facility] a /Urology Clinic l [facility] 2018-04-26 2018-04-26 [facility] [id number] 13:36:00 13:36:00 t Specialty/U Tanisha kes - Specialty rology [facility] a /[facility]rology Clinic l [facility] 2018-04-21 2018-04-21 [facility] [id number] 10:00:00 10:00:00 [facility] L [facility] - Care [facility] 2017-08-24 2017-08-24 [facility] [id number] 10:31:00 10:31:00 [facility] 2017-07-22 2017-07-22 [facility] [id number] 11:05:00 11:05:00 t [facility] [place] [facility] 2017-05-26 2017-05-26 [facility] [id number] 09:15:00 09:15:00 t [facility] Results Test Description Test Time Test Comments Results Result Comments Source GLUBED 2018-12-24 06:40:00 Test Item Value Reference Range Interpretation Comme nts GLUBED (test code = GLUBED) 92 mg/dL 65-110 N [id number] 23:29:00 Test Item Value Reference Range Interpretation Comments GLUBED (test code = GLUBED) 98 mg/dL 65-110 N [id number] 06:39:00 Test Item Value Reference Range Interpretation Comments GLUBED (test code = GLUBED) 94 mg/dL 65-110 N [id number] 22:51:00 Test Item Value Reference Range Interpretation Comments GLUBED (test code = GLUBED) 112 mg/dL 65-110 H [id number] 19:02:00 Test Item Value Reference Range Interpretation Comments GLUBED (test code = GLUBED) 76 mg/dL 65-110 N [id number] 13:24:00 Test Item Value Reference Range Interpretation Comments GLUBED (test code = GLUBED) 80 mg/dL 65-110 N [id number] 07:43:00 Test Item Value Reference Range Interpretation Comments GLUBED (test code = GLUBED) 86 mg/dL 65-110 N [id number] 21:39:00 Test Item Value Reference Range Interpretation Comments GLUBED (test code = GLUBED) 111 mg/dL 65-110 H [id number] 18:57:00 Test Item Value Reference Range Interpretation Comments GLUBED (test code = GLUBED) 103 mg/dL 65-110 N CHEMISTRY 7 [id number] 13:47:00 Test Item Value Reference Range Interpretation [...] CA) 8.5 mg/dL 8.4-10.2 N CBC W/AUTO [id number] 13:29:00 Test Item Value Reference Range Interpretation [...] NORMAL NORMAL code = PLTMR) SOFT TISSUE,NOT DANNIE/MASS/[id number] 13:23:00 RUN DATE: 12/21/18 [facility] PAGE 1 RUN TIME: 1410 Specimen Inquiry RUN USER: INTERFACE PATIENT: SOHAIL THOMPSON LOC: U #: [id number] AGE/SX: 28/F ROOM: [facility] RE12/15/18REG DR: Arpan Min MD : 86 BED: A DIS: STATUS: ADM IN TLOC: SPEC #: [id number] RECD: 12/20/18 STATUS: OLEGARIO RE #: [id number] ARELIS: 12/17/18- [facility] DR: Arpan Min MD ENTERED: 12/20/18 SP TYPE: SOFTNOTMLD OTHR DR: Jesús Lord MD, Jill C MD Nasser, Dean A MDORDERED: LEVEL IV CODES: [id number] - SOFT TISSUES, N COPIES TO: Jesús Lord MD [address] [facility] [address] [place] [address] Lianet Weir MD [address] [facility] [address] [place] [address] [email or web address] Kristofer Gó[place] [address] [place] [address] Arpan Min MD [address] [facility] [address] [place] [address] PROCEDURES: LEVEL IV (Incomplete) TISSUES: SOFT TISSUES, NOS - EPIPLOACA WITH ABSCESS/SIGMOID/UTERUS,CERVIX,TUBES AND OVARIES CLINICAL HISTORY 28 year old, tubo-ovarian abscess (kr) CONTINUED ON NEXT PAGE RUN DATE: 12/21/18 [facility] PAGE 2 RUN TIME: 1410 Specimen Inquiry RUN USER: INTERFACE SPEC #: [id number] PATIENT: SOHAIL THOMPSON #[id number] (Continued) FINAL DIAGNOSIS Epiploica with abscess, excision: [...] adhesions, and ovarian serosal abscesses CPT code(s): 11212 x2, 6[address] [facility] 12/21/18 GROSS DESCRIPTION ANATOMIC SOURCE [...] ariza-brown, soft fecal material. The mucosa is raiza, focally hemorrhagic and slightly edematous with a few diverticula, 0.3 to 0.6 cm. The muscularis propria and ariza, firm, and thickened. There are no perforation sites or definite abscesses. However, within the pericolonic adipose tissue there are focal CONTINUED ON NEXT PAGE RUN DATE: 12/21/18 [facility] PAGE 3 RUN TIME: 1410 Specimen Inquiry RUN USER: INTERFACE SPEC #: [id number] PATIENT: SOHAIL THOMPSON #[id number] (Continued) GROSS DESCRIPTION (Continued) areas of induration, fibrosis and possible fat necrosis. Section code: B1 - donuts, B2 through B6 - fundraising sale representative sections of bowel with possible diverticular [...] - serosal adhesions, C5 and C6 - fundraising sale representative sections of small adnexa, C7 through C9 - fundraising sale representative sections of large adnexa. shreya/jorge 12/20/18 @ 1125 Signed Diana James MD 12/21/18 1323 END OF REPORT [id number] 13:17:00 Test Item Value Reference Range Interpretation Comments GLUBED (test code = GLUBED) 89 mg/dL 65-110 N - XR ABDOMEN [id number] 10:26:00 Patient Name: SOHAIL THOMPSON Unit No: [id number] EXAMS: CPT CODE: [id number] XR ABDOMEN 2V 97557 ABDOMINAL RADIOGRAPHS-ERECT AND SUPINE COMPARISON: CT abdomen [...] Hamilton García MD CC: Lianet Weir Technologist: Gabriella Alvarado, Trnscyolette D/ (1026) t.[email or web address] Orig Print D/T: S: 12/21/2018 (1029) [facility] NAME: JOSE ALEJANDRO THOMPSONINA Radiology Department PHYS: Arpan Wallace MD [address] : 1990 AGE: 28 SEX: F [place], [place] [address] LOC: F.2650 A PHONE #: [phone] EXAM DATE: 12/21/2018 STATUS: ADM INFAX #: [phone] RAD NO: Page 1 Signed [id number] 06:40:00 Test Item Value Reference Range Interpretation Comments GLUBED (test code = GLUBED) 117 mg/dL 65-110 H [id number] 00:48:00 Test Item Value Reference Range Interpretation Comments GLUBED (test code = GLUBED) 153 mg/dL 65-110 H [id number] 18:32:00 Test Item Value Reference Range Interpretation Comments GLUBED (test code = GLUBED) 83 mg/dL 65-110 N [id number] 12:58:00 Test Item Value Reference Range Interpretation Comments GLUBED (test code = GLUBED) 153 mg/dL 65-110 H CHEMISTRY 7 [id number] 05:45:00 Test Item Value Reference Range Interpretation [...] CA) 8.1 mg/dL 8.4-10.2 L CBC W/AUTO [id number] 05:30:00 Test Item Value Reference Range Interpretation [...] REQUIRED (test NORMAL NORMAL code = PLTMR) [id number] 00:18:00 Test Item Value Reference Range Interpretation Comments GLUBED (test code = GLUBED) 107 mg/dL 65-110 N [id number] 18:27:00 Test Item Value Reference Range Interpretation Comments GLUBED (test code = GLUBED) 144 mg/dL 65-110 H [id number] 12:13:00 Test Item Value Reference Range Interpretation Comments GLUBED (test code = GLUBED) 126 mg/dL 65-110 H [id number] 08:47:00 Test Item Value Reference Range Interpretation Comments MAGNESIUM (test code = MAG) 1.8 mg/dL 1.8-2.4 N Comments to [employer]: DO ON BLOOD IN LAB-- DRAWN THIS AMSpecimen Comment: BLOOD IN LAB.CHEMISTRY 7 [id number] 05:19:00 Test Item Value Reference Range Interpretation [...] CA) 7.5 mg/dL 8.4-10.2 L CBC W/AUTO [id number] 05:06:00 Test Item Value Reference Range Interpretation [...] REQUIRED (test NORMAL NORMAL code = PLTMR) [id number] 00:47:00 Test Item Value Reference Range Interpretation Comments GLUBED (test code = GLUBED) 159 mg/dL 65-110 H [id number] 21:14:00 Test Item Value Reference Range Interpretation Comments C-PEPTIDE (test code 2.9 ng/mL 1.1-4.4 C-Pepti de reference = CPEP) interval is for fasting patients.Perfor med At: HD [facility] [address] [place], [place] [address]Dvperic Rosa MD Ph:[phone] [id number] 21:14:00 Test Item Value Reference Range Interpretation Comments INSULIN (test code = 22.1 uIU/mL 2.6-24.9 Perform ed At: HD INS) [facility] [address] [place], [place] [address]VdvTrino Rosa MD Ph:[phone] [id number] 18:25:00 Test Item Value Reference Range Interpretation Comments GLUBED (test code = GLUBED) 134 mg/dL 65-110 H [id number] 12:38:00 Test Item Value Reference Range Interpretation Comments GLUBED (test code = GLUBED) 137 mg/dL 65-110 H COMPREHENSIVE METABOLIC [id number] 05:57:00 Test Item Value Reference Range Interpretation [...] 69 units/L 46-116 N code = ALKP) [id number] 05:57:00 Test Item Value Reference Range Interpretation Comments MAGNESIUM (test code = 1.0 mg/dL 1.8-2.4 L RESUL TS CALLED TO MAG) ZAC TURK D BACK & CONFIRMED? Y. BY F.LAB.LDT 12/18 0557. RESULTS VERIFIED BY REP EAT ANALYSIS CBC W/AUTO [id number] 05:13:00 Test Item Value Reference Range Interpretation [...] NORMAL NORMAL REQUIRED (test code = PLTMR) [id number] 00:21:00 Test Item Value Reference Range Interpretation Comments GLUBED (test code = GLUBED) 280 mg/dL 65-110 H CHEMISTRY 7 [id number] 23:10:00 Test Item Value Reference Range Interpretation [...] CA) 7.1 mg/dL 8.4-10.2 L CBC W/AUTO [id number] 18:05:00 Test Item Value Reference Range Interpretation Comments WHITE BLOOD CELL 28.6 K/mm3 6.6-12.1 HH RESULTS GILBERT IFIED BY (test code = WBC) REPEAT KEIRA LYSISRESULTS CALLED TO KARINA VILLALTA .READ BACK & CO NFIRMED? Y.BY F.LAB.RV 1 02/16/18 4440. RED BLOOD CELL (test 5.23 M/mm3 3.45-5.01 [...] NORMAL REQUIRED (test code = PLTMR) WBC [id number] 18:05:00 Test Item Value Reference Range Interpretation [...] code = NORMAL NORMAL PLTMORPH) CHEMISTRY 7 [id number] 17:48:00 Test Item Value Reference Range Interpretation [...] CA) 7.5 mg/dL 8.4-10.2 L CBC W/AUTO [id number] 17:32:00 Test Item Value Reference Range Interpretation Comments WHITE BLOOD CELL 28.6 K/mm3 6.6-12.1 HH RESULTS GILBERT IFIED BY (test code = WBC) REPEAT KEIRA LYSISRESULTS CALLED TO KARINA VILLALTA .READ BACK & CO NFIRMED? Y.BY F.LAB.RV 1 02/16/18 8310. RED BLOOD CELL (test 5.23 M/mm3 3.45-5.01 [...] NORMAL REQUIRED (test code = PLTMR) WBC [id number] 17:32:00 Test Item Value Reference Range Interpretation Comments SEGMENTED NEUTROPHILS (test code = SEG) % 56.5-79.4 LYMPHOCYTE (test code = LYMPH) % 20-40 CBC W/AUTO [id number] 17:32:00 Test Item Value Reference Range Interpretation Comments WHITE BLOOD CELL 28.6 K/mm3 6.6-12.1 HH RESULTS GILBERT IFIED BY (test code = WBC) REPEAT KEIRA LYSISRESULTS CALLED TO KARINA VILLALTA .READ BACK & CO NFIRMED? Y.BY F.LAB.RV 1 02/16/18 4950. RED BLOOD CELL (test 5.23 M/mm3 3.45-5.01 [...] NORMAL REQUIRED (test code = PLTMR) WBC [id number] 17:32:00 Test Item Value Reference Range Interpretation Comments SEGMENTED NEUTROPHILS (test code = SEG) % 56.5-79.4 LYMPHOCYTE (test code = LYMPH) % 20-40 [id number] 14:59:00 Test Item Value Reference Range Interpretation Comments GLUBED (test code = GLUBED) 288 mg/dL 65-110 H [id number] 06:04:00 Test Item Value Reference Range Interpretation Comments GLUBED (test code = GLUBED) 201 mg/dL 65-110 H URINALYSIS [id number] 03:54:00 Test Item Value Reference Range Interpretation [...] SAMPLE: CLEAN CATCHComment URINE WITH CULTUREUR HCG [id number] 03:54:00 Test Item Value Reference Range Interpretation [...] URINE SAMPLE: CLEAN CATCHComment URINE WITH CULTUREURINALYSIS [id number] 03:38:00 Test Item Value Reference Range Interpretation [...] SAMPLE: CLEAN CATCHComment URINE WITH CULTUREUR HCG [id number] 03:38:00 Test Item Value Reference Range Interpretation [...] tested. URINE SAMPLE: CLEAN CATCHComment URINE WITH [id number] 22:09:00 Test Item Value Reference Range Interpretation Comments GLUBED (test code = 263 mg/dL 65-110 H Phsician Notified GLUBED) [id number] 17:08:00 Test Item Value Reference Range Interpretation Comments GLUBED (test code = GLUBED) 286 mg/dL 65-110 H [id number] 15:28:00 Test Item Value Reference Range Interpretation Comments CREATININE (test code = CREAT) 0.9 mg/dL 0.5-1.0 N IS THIS A ONCE DAILY SINGLE DOSE? YESDATE OF LAST DOSE: 12/16/18TIME OF LAST DOSE: [id number] 15:28:00 Test Item Value Reference Range Interpretation Comments GENTAMICIN (test code 0.8 mcg/mL 0-14 N Adult normal range = GENT) for once daily dose of Gentamicin m ay beup to 24 mcg/ mL. Gentamicin resu lts must be correla darshan withthe time th e dose was administere d. IS THIS A ONCE DAILY SINGLE DOSE? YESDATE OF LAST DOSE: 12/16/18TIME OF LAST DOSE: [id number] 13:24:00 Test Item Value Reference Range Interpretation Comments GLUBED (test code = GLUBED) 274 mg/dL 65-110 H HCG [id number] 12:13:00 Test Item Value Reference Range Interpretation [...] THE ROOM AT THIS TIME. PHLEB/RBCHEMISTRY 7 [id number] 12:11:00 Test Item Value Reference Range Interpretation [...] IN THE ROOM AT THIS TIME. @ 43604GR TRY 1018 AM. PHLEB/RBCBC W/AUTO [id number] 11:40:00 Test Item Value Reference Range Interpretation [...] PLTMR) COME BACK LATER- CT ABD PELVIS [id number] 11:01:00 Patient Name: SOHAIL THOMPSON Unit No: [id number] EXAMS: CPT CODE: [id number] CT ABD PELVIS W/CONT 90698 Exam: CT scan of the abdomen and [...] wall demonstrates no significant abnormalities. IMPRESSION: [facility] NAME: SOHAIL THOMPSON Radiology Department PHYS: Arpan Wallace MD [address] : 1990 AGE: 28 SEX: F [place], [place] [address] LOC: F.4672 A PHONE #: [phone] EXAM DATE: 12/16/2018 STATUS: ADM IN FAX #: [phone] RAD NO: Page 1 Signed Report 1 Patient Name: SOHAIL THOMPSON Unit No: [id number] EXAMS: CPT CODE: [id number] CT ABD PELVIS W/CONT 71691 <Continued> Bilateral adnexal masses as described above. The patient gives a history of abscess drainage at [facility] October 05, 2018. She describes having drains and drainage bags on either side. The findings in the adnexal region may be sequela of this procedure. Prior images have been requested. at 1101 Reported and signed by: Charissa Arreola MD CC: Lianet Weir Technologist: Sarthak Coleman, RT, CT CTDI: 21.83 DLP: [phone] Trnscrbd D/ (1101) Sampson [facility] NAME: JOSE ALEJANDRO THOMPSONINA Radiology Department PHYS: Arpan Wallace MD [address] : 1990 AGE: 28 SEX: F [place], [place] [address] LOC: F.4672 A PHONE #: [phone] EXAM DATE: 12/16/2018 STATUS: ADM IN FAX #:[phone] RAD NO: Page 2 Signed Report 1 Patient Name: SOHAIL THOMPSON Unit No: [id number] EXAMS: CPT CODE: [id number] CT ABD PELVIS W/CONT 34093 <Continued> Orig Print D/T: S: 12/16/2018 (1104) [facility] NAME: SOHAIL THOMPSON Radiology Department PHYS: Arpan Wallace MD[address] : 1990 AGE: 28 SEX: F [place], [place] [address] LOC: Franck72 Eleanor PHONE #: [phone] EXAM DATE: 12/16/2018 STATUS: ADM IN FAX #: [phone] RAD NO: Page 3 Signed Report [id number] 07:07:00 Test Item Value Reference Range Interpretation Comments GLUBED (test code = GLUBED) 241 mg/dL 65-110 H CREATINE KINASE (CK)2018-12-15 19:52:00 Test Item Value Reference Range Interpretation Comments CREATINE KINASE (CK) (test code = 60 Units/L 26-192 N CK) [id number] 16:55:00 Test Item Value Reference Range Interpretation Comments GLUBED (test code = 339 mg/dL 65-110 H Phsician Notified GLUBED) COMPREHENSIVE METABOLIC [id number] 11:01:00 Test Item Value Reference Range Interpretation [...] units/L 46-116 N code = ALKP) T4 [id number] 11:01:00 Test Item Value Reference Range Interpretation Comments T4 FREE (test code = T4F) 1.24 ng/dL 0.76-1.46 N THYROID STIMULATING [id number] 11:01:00 Test Item Value Reference Range Interpretation [...] be considered for these patients. GLYCOSYLATED HEMOGLOBIN [id number] 11:01:00 Test Item Value Reference Range Interpretation [...] MG/DL 70-110 H (test code = MBG) [id number] 10:19:00 Test Item Value Reference Range Interpretation Comments GLUBED (test code = 290 mg/dL 65-110 H Phsician Notified GLUBED) COMPREHENSIVE METABOLIC [id number] 07:23:00 Test Item Value Reference Range Interpretation [...] units/L 46-116 N code = ALKP) T4 [id number] 07:23:00 Test Item Value Reference Range Interpretation Comments T4 FREE (test code = T4F) 1.24 ng/dL 0.76-1.46 N THYROID STIMULATING [id number] 07:23:00 Test Item Value Reference Range Interpretation Comments THYROID STIMULATING 3.27 0.36-3.74 N Test Per formed in HORMONE (test code = MicroIn ternational Units/mL TSH) GLYCOSYLATED HEMOGLOBIN (HA1C)2018-12-15 07:23:00 Test Item Value Reference Range Interpretation Comments GLYCOSYLATED HEMOGLOBIN (HA1C) (test code = GLYHGB) [id number] 06:04:00 Test Item Value Reference Range Interpretation Comments GLUBED (test code = 308 mg/dL 65-110 H Phsician Notified GLUBED) COMPREHENSIVE METABOLIC [id number] 05:10:00 Test Item Value Reference Range Interpretation [...] 46-116 N code = ALKP) THYROID STIMULATING [id number] 05:10:00 Test Item Value Reference Range Interpretation Comments THYROID STIMULATING 3.27 0.36-3.74 N Test Per formed in HORMONE (test code = MicroIn ternational Units/mL TSH) GLYCOSYLATED HEMOGLOBIN (HA1C)2018-12-15 05:10:00 Test Item Value Reference Range Interpretation Comments GLYCOSYLATED HEMOGLOBIN (HA1C) (test code = GLYHGB) LACTIC [id number] 04:53:00 Test Item Value Reference Range Interpretation Comments LACTIC ACID (test code = LACT) 1.5 MMOL/L 0.5-2.2 N CBC W/AUTO [id number] 04:30:00 Test Item Value Reference Range Interpretation [...] code = PLTMR) - CT HEAD/BRAIN W/O [id number] 04:27:00 Patient Name: SOHAIL THOMPSON Unit No: [id number] EXAMS: CPT CODE: [id number] CT HEAD/BRAIN W/O CONT 89285 EXAM: CT, CT HEAD/BRAIN W/O CONTRAST; 12/15/2018, [...] acute hemorrhage or subacute stroke. SL: BRANDIN [facility] NAME: SOHAIL THOMPSON Radiology Department PHYS: Lianet Morrow MD [address] : 1990 AGE: 28 SEX: F [place], [place] [address] LOC: F.4672 A PHONE #: [phone] EXAM DATE: 12/15/2018 STATUS: ADM IN FAX #: [phone] RAD NO: Page 1 Signed Report 1 Patient Name: SOHAIL THOMPSON UnitNo: [id number] EXAMS: CPT CODE: [id number] CT HEAD/BRAIN W/O CONT 50687 <Continued> at 0427 Reported and signed by: Paul Barreto M.D. CC: Lianet Weir Technologist: SELAM HOLLIDAY, CT, RT CTDI: 53.12 DLP: 879.86 Trnscrbd D/ (0427) [email or web address] [facility] NAME:SOHAIL THOMPSON Radiology Department PHYS: Lianet Morrow MD [address] : 1990 AGE: 28 SEX: F [place] [address] LOC: Morteza.4672 A PHONE #: [phone] EXAM DATE: 12/15/2018 STATUS: ADM IN FAX #: [phone] RAD NO: Page 2 Signed Report 1 Patient Name: SOHAIL THOMPSON Unit No: [id number] EXAMS: CPT CODE: [id number] CT HEAD/BRAIN W/O CONT 35083 <Continued> Orig Print D/T: S: 12/15/2018 (0430) [facility] NAME: SOHAIL THOMPSON Radiology DepartmentPHYS: Lianet Morrow MD [address] : 1990 AGE: 28 SEX: F [place] [address] LOC: F.4672 A PHONE #: [phone] EXAM DATE: 12/15/2018 STATUS: ADM IN FAX #: [phone] RAD NO: Page 3 Signed Report 1
[2020-07-10 00:24] LABS: Absolute Lymphocytes (CBC) 2.1 K/uL (0.7-4.9); Basophils % 0.6 % (0-1.3); Hematocrit 44.4 % (36.0-45.0); Lymphocytes % 19.7 % (15.3-44.8); MPV 10.7 fL (7.6-11.3); RBC Red Blood Cell Count 5.02 M/uL (3.86-4.86)
[2020-07-10 00:43] LABS: Albumin 3.6 g/dL (3.4-5.0); Bilirubin Direct 0.1 mg/dL (0-0.2); Bilirubin Total 0.8 mg/dL (0.2-1.0); Potassium 3.8 mmol/L (3.5-5.1); Protein, Total 8.2 g/dL (6.4-8.2)
[2020-07-10] MEDS ORDERED: INSULIN -REGULAR HUMAN 50 UNIT/0.5 ML ML ONE (01:37)
[2020-07-10] MEDS ORDERED: NA CHLORIDE 0.9% 1,000 ML ONE (02:00)
--- NOTE | 2020-07-10 03:11 | ER ---
Nurse's Notes [facility] Name: Stacy Islas Age: 29 yrs Sex: Female : 1990 Arrival Date: 07/09/2020 Time: 22:32 Bed 16 Private MD: Diagnosis: Hyperglycemia, unspecified;Nausea with vomiting, unspecified Presentation: 07/09 23:16 Chief complaint: Patient states: she is having abdominal pain with vomiting and bb diarrhea which she states "is messing up my blood sugar" pt symptoms started approx 30 mins ago and she is feeling weak. Coronavirus screen: At this time, the client does not indicate any symptoms associated with coronavirus-19. Ebola Screen: No symptoms or risks identified at this time. Initial Sepsis Screen: Does the patient meet any 2 criteria? No. Patient's initial sepsis screen is negative. Does the patient have a suspected source of infection? No. Patient's initial sepsis screen is negative. Risk Assessment: Do you want to hurt yourself or someone else? Patient reports no desire to harm self or others. Onset of symptoms was July 09, 2020. 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 - Social history:: Smoking status: Patient denies any tobacco usage or history of. Patient/guardian denies using alcohol, street drugs. Screenin/01 00:15 Abuse screen: Denies threats or abuse. Denies injuries from another. Nutritional jm8 screening: No deficits noted. Tuberculosis screening: No symptoms or risk factors identified. Fall Risk None identified. Assessment: 00:13 General: Appears in no apparent distress. comfortable, Behavior is calm, cooperative, jm8 appropriate for age. Pain: Complains of pain in abdomen Pain currently is 2 out of 10 on a pain scale. Pain began 4 hours ago. Also complains of nausea. Neuro: No deficits noted. Level of Consciousness is awake, alert, obeys commands, Oriented to person, place, time. Cardiovascular: No deficits noted. Respiratory: Reports labored breathing. Respiratory: Airway is patent Trachea midline Respiratory effort is even, unlabored, Respiratory pattern is regular, symmetrical. GI: Reports lower abdominal pain, upper abdominal pain, diarrhea, nausea, vomiting, hyperglycemia, generalized weakness. : No deficits noted. No signs and/or symptoms were reported regarding the genitourinary system. EENT: No deficits noted. No signs and/or symptoms were reported regarding the EENT system. Derm: No deficits noted. No signs and/or symptoms reported regarding the dermatologic system. Derm: Skin is intact, is healthy with good turgor, Skin is dry, Skin is pink, warm \\T\\ dry. Skin temperature is warm. Musculoskeletal: No deficits noted. No signs and/or symptoms reported regarding the musculoskeletal system. Vital Signs: 07/09 23:16 BP 117 / 75; Pulse 79; Resp 16 S; Temp 96.8(TE); Pulse Ox 98% on R/A; Weight 102.06 kg bb (R); Height 5 ft. 3 in. (160.02 cm) (R); Pain 5/10; 07/10 02:11 BP 122 / 74; Pulse 79; Resp 16; Pulse Ox 98% on R/A; jm8 07/09 23:16 Body Mass Index 39.86 (102.06 kg, 160.02 cm) ED Course: 07/09 22:32 Patient arrived in ED. es 23:18 Triage completed. bb 23:18 Arm band placed on Patient placed in an exam room, on a stretcher, on pulse oximetry. bb 23:43 Rajeev Mendieta MD is Attending Physician. tw4 07/10 00:07 Inserted saline lock: 20 gauge in right antecubital area, using aseptic technique. dh4 Blood collected. 00:15 Patient has correct armband on for positive identification. Bed in low position. Call jm8 light in reach. Side rails up X2. 00:15 No provider procedures requiring assistance completed. jm8 03:30 IV discontinued, intact. jm8 Administered Medications: 01:22 Drug: Insulin Regular Human 10 units {Co-Signature: jb4 (Gigi Johnston RN).} Route: IVP; jm8 Site: right antecubital; 03:30 Follow up: Response: No adverse reaction; Blood sugar is lowered jm8 02:09 Drug: NS 0.9% 1000 ml Route: IV; Rate: 1 bolus; Site: right antecubital; jm8 Outcome: 03:10 Discharge ordered by . payton 03:30 Discharged to home ambulatory. jm8 03:30 Condition: good 03:30 Discharge instructions given to patient. 03:30 Discharge instructions given to patient, Instructed on discharge instructions, follow up and referral plans. medication usage, Demonstrated understanding of instructions, follow-up care, medications, Prescriptions given X 1. 04:10 Patient left the ED. jm8 Signatures: Flor Johnson Brenda, RN RN Rajeev aJy MD MD tw4 [place] [facility] Ricci Jordan RN RN jm8 Gigi Johnston RN jb4
--- NOTE | 2020-07-10 03:11 | EDPHYS ---
Physician Documentation [facility] Name: Stacy Islas Age: 29 yrs Sex: Female : 1990 Arrival Date: 07/09/2020 Time: 22:32 Bed 16 Private MD: ED Physician Rajeev Mendieta HPI: 07/10 01:21 This 29 yrs old Female presents to ER via Wheelchair with complaints of High tw4 Blood Sugar. 01:21 The patient or guardian reports generalized weakness. Onset: The symptoms/episode tw4 began/occurred today. Associated signs and symptoms: Pertinent positives: nausea, vomiting. Current symptoms: In the emergency department the patient's symptoms are unchanged from the initial presentation. The patient has not experienced similar symptoms in the past. 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 - Social history:: Smoking status: Patient denies any tobacco usage or history of. Patient/guardian denies using alcohol, street drugs. ROS: 07/10 01:21 Constitutional: Negative for fever, chills, and weight loss, Eyes: Negative for injury, tw4 pain, redness, and discharge, ENT: Negative for injury, pain, and discharge, Cardiovascular: Negative for chest pain, palpitations, and edema, Respiratory: Negative for shortness of breath, cough, wheezing, and pleuritic chest pain. Back: Negative for injury and pain, MS/Extremity: Negative for injury and deformity, Skin: Negative for injury, rash, and discoloration, Neuro: Negative for headache, weakness, numbness, tingling, and seizure. Abdomen/GI: Positive for nausea and vomiting, nausea, vomiting, Negative for abdominal pain, nausea, vomiting, and diarrhea, diarrhea, constipation, abdominal cramps, abdominal distension, anorexia, dysphagia, hematemesis, black/tarry stool, rectal bleeding. Exam: 01:21 Constitutional: This is a well developed, well nourished patient who is awake, alert, tw4 and in no acute distress. Head/Face: Normocephalic, atraumatic. Chest/axilla: Normal chest wall appearance and motion. Nontender with no deformity. No lesions are appreciated. Cardiovascular: Regular rate and rhythm with a normal S1 and S2. No gallops, murmurs, or rubs. Normal PMI, no JVD. No pulse deficits. Respiratory: Lungs have equal breath sounds bilaterally, clear to auscultation and percussion. No rales, rhonchi or wheezes noted. No increased work of breathing, no retractions or nasal flaring. Abdomen/GI: Soft, non-tender, with normal bowel sounds. No distension or tympany. No guarding or rebound. No evidence of tenderness throughout. Back: No spinal tenderness. No costovertebral tenderness. Full range of motion. MS/ Extremity: Pulses equal, no cyanosis. Neurovascular intact. Full, normal range of motion. Neuro: Awake and alert, GCS 15, oriented to person, place, time, and situation. Cranial nerves II-XII grossly intact. Motor strength 5/5 in all extremities. Sensory grossly intact. Cerebellar exam normal. Normal gait. Vital Signs: 07/09 23:16 BP 117 / 75; Pulse 79; Resp 16 S; Temp 96.8(TE); Pulse Ox 98% on R/A; Weight 102.06 kg bb (R); Height 5 ft. 3 in. (160.02 cm) (R); Pain 5/10; 07/10 02:11 BP 122 / 74; Pulse 79; Resp 16; Pulse Ox 98% on R/A; jm8 07/09 23:16 Body Mass Index 39.86 (102.06 kg, 160.02 cm) bb MDM: 07/09 23:50 Patient medically screened. tw4 07/10 07:11 Data reviewed: vital signs, nurses notes. Data interpreted: Pulse oximetry: tw4 Interpretation: normal. Counseling: I had a detailed discussion with the patient and/or guardian regarding: the historical points, exam findings, and any diagnostic results supporting the discharge/admit diagnosis. Special discussion: I discussed with the patient/guardian in detail that at this point there is no indication for admission to the hospital. It is understood, however, that if the symptoms persist or worsen the patient needs to return immediately for re-evaluation. 07/09 23:23 Order name: Glucose, Ancillary Testing; Complete Time: 00:57 EDMS 07/09 23:43 Order name: Basic Metabolic Panel; Complete Time: 00:57 tw4 07/09 23:43 Order name: CBC with Diff; Complete Time: 00:57 tw4 07/09 23:43 Order name: Hepatic Function; Complete Time: 00:57 tw4 07/09 23:43 Order name: Lipase; Complete Time: 00:57 tw4 07/10 03:08 Order name: Glucose, Ancillary Testing; Complete Time: 04:06 EDMS 07/10 04:06 Interpretation: Abnormal: GLUC,ANCIL 385. tw4 07/09 23:43 Order name: IV Saline Lock; Complete Time: 00:07 tw4 07/09 23:43 Order name: Labs collected and sent; Complete Time: 00:07 tw4 Administered Medications: 01:22 Drug: Insulin Regular Human 10 units {Co-Signature: smooth (Gigi Johnston RN).} Route: IVP; [facility] Site: right antecubital; 03:30 Follow up: Response: No adverse reaction; Blood sugar is lowered [facility] 02:09 Drug: NS 0.9% 1000 ml Route: IV; Rate: 1 bolus; Site: right antecubital; [facility] Disposition: 07/10/20 03:10 Discharged to Home. Impression: Hyperglycemia, unspecified, Nausea with vomiting, unspecified. - Condition is Stable. - Discharge Instructions: Hyperglycemia, Nausea and Vomiting, Adult. - Prescriptions for Zofran 4 mg Oral Tablet - take 1 tablet by ORAL route every 12 hours As needed; 6 tablet. - Medication Reconciliation Form, Thank You Letter, Antibiotic Education, Prescription Opioid Use form. - Follow up: Private Physician; When: Upon discharge from the Emergency Department; Reason: Recheck today's complaints, Continuance of care, Re-evaluation by your physician. - Problem is new. - Symptoms have improved. Signatures: Dispatcher [employer] Jennifer Hyman RN RN Rajeev Jay MD MD tw4 Ricci Jordan RN RN jm8 Gigi Johnston RN jb4 Corrections: (The following items were deleted from the chart) 03:12 03:10 07/10/2020 03:10 Discharged to Home. Impression: Hyperglycemia, unspecified. tw4 Condition is Stable. Forms are Medication Reconciliation Form, Thank You Letter, Antibiotic Education, Prescription Opioid Use. Follow up: Private Physician; When: Upon discharge from the Emergency Department; Reason: Recheck today's complaints, Continuance of care, Re-evaluation by your physician. Problem is new. Symptoms have improved. tw4 04:10 03:12 07/10/2020 03:10 Discharged to Home. Impression: Hyperglycemia, unspecified; jm8 Nausea with vomiting, unspecified. Condition is Stable. Discharge Instructions: Hyperglycemia, Nausea and Vomiting, Adult. Prescriptions for Zofran 4 mg Oral Tablet - take 1 tablet by ORAL route every 12 hours As needed; 6 tablet. and Forms are Medication Reconciliation Form, Thank You Letter, Antibiotic Education, Prescription Opioid Use. Follow up: Private Physician; When: Upon discharge from the Emergency Department; Reason: Recheck today's complaints, Continuance of care, Re-evaluation by your physician. Problem is new. Symptoms have improved. tw4
[2020-07-10 04:32] VITALS: TEMP 96.8; O2SAT 98
[2020-07-10 04:33] VITALS: BP 122/74
== END 2020-07-10 04:10 | disposition home or self-care (01) ==
LOC: ER 22:31
DX: E11.65 Type 2 diabetes mellitus with hyperglycemia (principal); R11.2 Nausea with vomiting, unspecified; Z79.4 Long term (current) use of insulin
CPT/HCPCS: 85025; 80048; 36415; 82947 ×2; 80076; 83690; J7030; 96374; 99284

== ENCOUNTER 2020-09-15 13:32 | Emergency (ER) | payer OTHER ==
--- OUTSIDE RECORDS SUMMARY | 2020-09-15 13:36 | XMS REPORT | Continuity of Care Document ---
:1990 Author Organization [facility] t Address [address] [place] [address] Care Team Providers Name Role Phone Eleanor Lu MD Attending Clinician Payers Payer Name Policy Type Policy Number Effective Date Expiration Date S ource Problems This patient has no known problems. Allergies, Adverse Reactions, Alerts Allergy Allergy Status Severity Reaction(s) Onset Inactive Treating Comm ents Source Name Type Date Date Clinician Penicill DA Active U 2018-02 [facility] 02-14 00:[facility]: [address] tazobact DA Active U 2018-02 [facility] am 02-14 00:00: [address] piperaci DA Active U 2018-02 [facility] llin 02-14 00:00: [address] Zosyn Adverse Active shortness of [facility] Reaction breath [facility] Medications Ordered Filled Start [...] Yes Na Roche [address] [facility] Eduardo Clark Yes Na Roche [address] [facility] kes - [facility] ent [facility] Metformin Metformin Yes Na Roche [address] [facility] HCl HCl with meals [facility] ent [facility] Procedures This patient has no known procedures. Encounters Start End Encounter Admission Attending Care Care Encounter Source Date/Time Date/Time Type Type Clinicians Facility Department ID 2020-09-06 2020-09-06 Office ANIKA Lu [id number] 14:45:51 17:24:18 Visit [facility] [id number] [place] [id number] [id number] nal 044 Office Building One 2020-04-26 2020-04-26 Outpatient [facility] [id number] [facility] 2020-04-26 2020-04-26 Outpatient [facility] [id number] [facility] 2020-04-09 2020-04-09 Outpatient [facility] [id number] [facility] 2020-04-04 2020-04-04 Outpatient [facility] [id number] [facility] 2020-03-19 2020-03-19 Outpatient [facility] [id number] [facility] 2020-03-19 2020-03-19 [facility] [id number] 2020-02-15 2020-02-15 Outpatient [facility] [id number] [facility] 2020-01-25 2020-01-25 Outpatient [facility] [id number] [facility] 2020-01-24 2020-01-24 Outpatient [facility] [id number] [facility] 2019-12-07 2019-12-07 Outpatient [facility] [id number] [facility] 2019-11-22 2019-11-22 Outpatient [facility] [id number] [facility] 2019-11-14 2019-11-14 Outpatient [facility] [id number] [facility] 2019 2019 [facility] [id number] [address] 13:40:00 13:40:00 t [employer] [place] [facility] 2018-05-14 2018-05-14 [facility] [id number] 11:52:00 11:52:00 [facility] 2018-04-27 2018-04-27 [facility] [id number] 10:40:00 10:40:00 [facility] 2018-04-27 2018-04-27 [facility] [id number] 10:07:00 10:07:00 t [facility] - Care Clinic [facility] 2018-04-27 2018-04-27 [facility] [id number] 09:15:00 09:15:00 t Specialty/U Tanisha kes - Specialty rology [facility] l [facility] 2018-04-26 2018-04-26 [facility] [id number] 13:36:00 13:36:00 t Specialty/U Tanisha kes - Specialty rology [facility] 2018-04-21 2018-04-21 [facility] [id number] 10:00:00 10:00:00 t [facility]omens [facility]omens Care L ukes - Care [facility] 2017-08-24 2017-08-24 [facility] [id number] 10:31:00 10:31:00 t TVDeck s - Drive [facility] 2017-07-22 2017-07-22 [facility] [id number] 11:05:00 11:05:00 t [facility] [place] [facility] 2017-05-26 2017-05-26 [facility] [id number] 09:15:00 09:15:00 t TVDeck s - Drive [facility] Results Test Description Test Time Test Comments Results Result Comments Source GLUBED 2018-12-24 06:40:00 Test Item Value Reference Range Interpretation Comme nts GLUBED (test code = GLUBED) 92 mg/dL 65-110 N [id number] 23:29:00 Test Item Value Reference Range Interpretation Comments GLUBED (test code = GLUBED) 98 mg/dL 65-110 N [id number] 06:39:00 Test Item Value Reference Range Interpretation Comments GLUBED (test code = GLUBED) 94 mg/dL 65-110 N [id number] 22:51:00 Test Item Value Reference Range Interpretation Comments GLUBED (test code = GLUBED) 112 mg/dL 65-110 H [id number] 19:02:00 Test Item Value Reference Range Interpretation Comments GLUBED (test code = GLUBED) 76 mg/dL 65-110 N [id number] 13:24:00 Test Item Value Reference Range Interpretation Comments GLUBED (test code = GLUBED) 80 mg/dL 65-110 N [id number] 07:43:00 Test Item Value Reference Range Interpretation Comments GLUBED (test code = GLUBED) 86 mg/dL 65-110 N [id number] 21:39:00 Test Item Value Reference Range Interpretation Comments GLUBED (test code = GLUBED) 111 mg/dL 65-110 H [id number] 18:57:00 Test Item Value Reference Range Interpretation Comments GLUBED (test code = GLUBED) 103 mg/dL 65-110 N CHEMISTRY 7 [id number] 13:47:00 Test Item Value Reference Range Interpretation [...] CA) 8.5 mg/dL 8.4-10.2 N CBC W/AUTO [id number] 13:29:00 Test Item Value Reference Range Interpretation [...] NORMAL NORMAL code = PLTMR) SOFT TISSUE,NOT DANNIE/MASS/[id number] 13:23:00 RUN DATE: 12/21/18 [facility] PAGE 1 RUN TIME: 1410 Specimen Inquiry RUN USER: INTERFACE PATIENT: SOHAIL THOMPSON LOC: JOSE U #: [id number] AGE/SX: 28/F ROOM: [facility] RE12/15/18REG DR: Arpan Min MD : 86 BED: A DIS: STATUS: ADM IN TLOC: SPEC #: [id number] RECD: 12/20/18 STATUS: OLEGARIO RE #: [id number] ARELIS: 12/17/18- SUBM DR: Arpan Min MD ENTERED: 12/20/18 SP TYPE: SOFTNOTMLD OTHR DR: Jesús Lord MD, Jill C MD Nasser, Dean A MDORDERED: LEVEL IV CODES: [id number] - SOFT TISSUES, N COPIES TO: Jesús Lord MD [address] [facility] [address] [phone] Lianet Weir MD [address] [address] [email or web address] Kristofer Gó[place] [address] [place] [address] Arpan Min MD [address] [facility] [address] [place], [place] [id number] PROCEDURES: LEVEL IV (Incomplete) TISSUES: SOFT TISSUES, NOS - EPIPLOACA WITH ABSCESS/SIGMOID/UTERUS,CERVIX,TUBES AND OVARIES CLINICAL HISTORY 28 year old, tubo-ovarian abscess (kr) CONTINUED ON NEXT PAGE RUN DATE: 12/21/18 [facility] PAGE 2 RUN TIME: 1410 Specimen Inquiry RUN USER: INTERFACE SPEC #: [id number] PATIENT: SOHAIL THOMPSON #[id number] (Continued) FINAL DIAGNOSIS Epiploica with abscess, excision: [...] adhesions, and ovarian serosal abscesses CPT code(s): 63666 x2, 15973 [facility] 12/21/18 GROSS DESCRIPTION ANATOMIC SOURCE OF [...] Specimen Inquiry RUN USER: INTERFACE SPEC #: [id number] PATIENT: SOHAIL THOMPSON #[id number] (Continued) GROSS DESCRIPTION (Continued) areas of induration, fibrosis and possible fat necrosis. Section code: B1 - donuts, B2 through B6 - artist representative sections of bowel with possible diverticular [...] - serosal adhesions, C5 and C6 - artist representative sections of small adnexa, C7 through C9 - artist representative sections of large adnexa. diana 12/20/18 @ 1125 Signed Diana James MD 12/21/18 1323 END OF REPORT [id number] 13:17:00 Test Item Value Reference Range Interpretation Comments GLUBED (test code = GLUBED) 89 mg/dL 65-110 N - XR ABDOMEN [id number] 10:26:00 Patient Name: SOHAIL THOMPSON Unit No: [id number] EXAMS: CPT CODE: [id number] XR ABDOMEN 2V 69059 ABDOMINAL RADIOGRAPHS-ERECT AND SUPINE COMPARISON: CT abdomen [...] Orig Print D/T: S: 12/21/2018 (1029) [facility] NAME: ROSHANJOSE ALEJANDRO MAYNARDINA Radiology Department PHYS: Arpan Wallace MD [address] : 1990 AGE: 28 SEX: F [place], [place] [address] LOC: FIza265Alphonse A PHONE #: [phone] EXAM DATE: 12/21/2018 STATUS: ADM INFAX #: [phone] RAD NO: Page 1 Signed [id number] 06:40:00 Test Item Value Reference Range Interpretation Comments GLUBED (test code = GLUBED) 117 mg/dL 65-110 H [id number] 00:48:00 Test Item Value Reference Range Interpretation Comments GLUBED (test code = GLUBED) 153 mg/dL 65-110 H [id number] 18:32:00 Test Item Value Reference Range Interpretation Comments GLUBED (test code = GLUBED) 83 mg/dL 65-110 N [id number] 12:58:00 Test Item Value Reference Range Interpretation Comments GLUBED (test code = GLUBED) 153 mg/dL 65-110 H CHEMISTRY 7 [id number] 05:45:00 Test Item Value Reference Range Interpretation [...] CA) 8.1 mg/dL 8.4-10.2 L CBC W/AUTO [id number] 05:30:00 Test Item Value Reference Range Interpretation [...] REQUIRED (test NORMAL NORMAL code = PLTMR) [id number] 00:18:00 Test Item Value Reference Range Interpretation Comments GLUBED (test code = GLUBED) 107 mg/dL 65-110 N [id number] 18:27:00 Test Item Value Reference Range Interpretation Comments GLUBED (test code = GLUBED) 144 mg/dL 65-110 H [id number] 12:13:00 Test Item Value Reference Range Interpretation Comments GLUBED (test code = GLUBED) 126 mg/dL 65-110 H [id number] 08:47:00 Test Item Value Reference Range Interpretation Comments MAGNESIUM (test code = MAG) 1.8 mg/dL 1.8-2.4 N Comments to [employer]pper Hand: DO ON BLOOD IN LAB-- DRAWN THIS AMSpecimen Comment: BLOOD IN LAB.CHEMISTRY 7 [id number] 05:19:00 Test Item Value Reference Range Interpretation [...] CA) 7.5 mg/dL 8.4-10.2 L CBC W/AUTO [id number] 05:06:00 Test Item Value Reference Range Interpretation [...] REQUIRED (test NORMAL NORMAL code = PLTMR) [id number] 00:47:00 Test Item Value Reference Range Interpretation Comments GLUBED (test code = GLUBED) 159 mg/dL 65-110 H [id number] 21:14:00 Test Item Value Reference Range Interpretation Comments C-PEPTIDE (test code 2.9 ng/mL 1.1-4.4 C-Pepti de reference = CPEP) interval is for fasting patients.Perfor med At: [facility] [address] [id number] Rosa MD [phone] [id number] 21:14:00 Test Item Value Reference Range Interpretation Comments INSULIN (test code = 22.1 uIU/mL 2.6-24.9 Perform ed At: INS) [facility] [address] [place], [place] [id number] Rosa MD Ph:[phone] [id number] 18:25:00 Test Item Value Reference Range Interpretation Comments GLUBED (test code = GLUBED) 134 mg/dL 65-110 H [id number] 12:38:00 Test Item Value Reference Range Interpretation Comments GLUBED (test code = GLUBED) 137 mg/dL 65-110 H COMPREHENSIVE METABOLIC [id number] 05:57:00 Test Item Value Reference Range Interpretation [...] 69 units/L 46-116 N code = ALKP) [id number] 05:57:00 Test Item Value Reference Range Interpretation Comments MAGNESIUM (test code = 1.0 mg/dL 1.8-2.4 L [place] [facility] [place] ZAC [place] D BACK & CONFIRMED? Y. BY FSILVIANO.CAMPOST 12/18 0557. RESULTS VERIFIED BY REP EAT ANALYSIS CBC W/AUTO [id number] 05:13:00 Test Item Value Reference Range Interpretation [...] NORMAL NORMAL REQUIRED (test code = PLTMR) [id number] 00:21:00 Test Item Value Reference Range Interpretation Comments GLUBED (test code = GLUBED) 280 mg/dL 65-110 H CHEMISTRY 7 [id number] 23:10:00 Test Item Value Reference Range Interpretation [...] CA) 7.1 mg/dL 8.4-10.2 L CBC W/AUTO [id number] 18:05:00 Test Item Value Reference Range Interpretation [...] NORMAL REQUIRED (test code = PLTMR) WBC [id number] 18:05:00 Test Item Value Reference Range Interpretation [...] code = NORMAL NORMAL PLTMORPH) CHEMISTRY 7 [id number] 17:48:00 Test Item Value Reference Range Interpretation [...] CA) 7.5 mg/dL 8.4-10.2 L CBC W/AUTO [id number] 17:32:00 Test Item Value Reference Range Interpretation Comments WHITE BLOOD CELL 28.6 K/mm3 6.6-12.1 HH RESULTS GILBERT IFIED BY (test code = WBC) REPEAT KEIRA LYSISRESULTS CALLED TO KARINA VILLALTA .READ BACK & CO NFIRMED? Y.BY FIzaLAB.RV 02/16/18 1983. RED BLOOD CELL (test 5.23 M/mm3 3.45-5.01 [...] NORMAL REQUIRED (test code = PLTMR) WBC [id number] 17:32:00 Test Item Value Reference Range Interpretation Comments SEGMENTED NEUTROPHILS (test code = SEG) % 56.5-79.4 LYMPHOCYTE (test code = LYMPH) % 20-40 CBC W/AUTO [id number] 17:32:00 Test Item Value Reference Range Interpretation Comments WHITE BLOOD CELL 28.6 K/mm3 6.6-12.1 HH RESULTS GILBERT IFIED BY (test code = WBC) REPEAT KEIRA LYSISRESULTS CALLED TO KARINA VILLALTA .READ BACK & CO NFIRMED? Y.BY FIzaLAB.RV 1 02/16/18 7875. RED BLOOD CELL (test 5.23 M/mm3 3.45-5.01 [...] NORMAL REQUIRED (test code = PLTMR) WBC [id number] 17:32:00 Test Item Value Reference Range Interpretation Comments SEGMENTED NEUTROPHILS (test code = SEG) % 56.5-79.4 LYMPHOCYTE (test code = LYMPH) % 20-40 [id number] 14:59:00 Test Item Value Reference Range Interpretation Comments GLUBED (test code = GLUBED) 288 mg/dL 65-110 H [id number] 06:04:00 Test Item Value Reference Range Interpretation Comments GLUBED (test code = GLUBED) 201 mg/dL 65-110 H URINALYSIS [id number] 03:54:00 Test Item Value Reference Range Interpretation [...] SAMPLE: CLEAN CATCHComment URINE WITH CULTUREUR HCG [id number] 03:54:00 Test Item Value Reference Range Interpretation [...] URINE SAMPLE: CLEAN CATCHComment URINE WITH CULTUREURINALYSIS [id number] 03:38:00 Test Item Value Reference Range Interpretation [...] SAMPLE: CLEAN CATCHComment URINE WITH CULTUREUR HCG [id number] 03:38:00 Test Item Value Reference Range Interpretation [...] tested. URINE SAMPLE: CLEAN CATCHComment URINE WITH [id number] 22:09:00 Test Item Value Reference Range Interpretation Comments GLUBED (test code = 263 mg/dL 65-110 H Phsician Notified GLUBED) [id number] 17:08:00 Test Item Value Reference Range Interpretation Comments GLUBED (test code = GLUBED) 286 mg/dL 65-110 H [id number] 15:28:00 Test Item Value Reference Range Interpretation Comments CREATININE (test code = CREAT) 0.9 mg/dL 0.5-1.0 N IS THIS A ONCE DAILY SINGLE DOSE? YESDATE OF LAST DOSE: 12/16/18TIME OF LAST DOSE: [id number] 15:28:00 Test Item Value Reference Range Interpretation Comments GENTAMICIN (test code 0.8 mcg/mL 0-14 N Adult normal range = GENT) for once daily dose of Gentamicin m ay beup to 24 mcg/ mL. Gentamicin resu lts must be correla darshan withthe time th e dose was administere d. IS THIS A ONCE DAILY SINGLE DOSE? YESDATE OF LAST DOSE: 12/16/18TIME OF LAST DOSE: [id number] 13:24:00 Test Item Value Reference Range Interpretation Comments GLUBED (test code = GLUBED) 274 mg/dL 65-110 H HCG [id number] 12:13:00 Test Item Value Reference Range Interpretation [...] THE ROOM AT THIS TIME. PHLEB/RBCHEMISTRY 7 [id number] 12:11:00 Test Item Value Reference Range Interpretation [...] IN THE ROOM AT THIS TIME. @ 03747QI TRY 1018 AM. PHLEB/RBCBC W/AUTO [id number] 11:40:00 Test Item Value Reference Range Interpretation [...] PLTMR) COME BACK LATER- CT ABD PELVIS [id number] 11:01:00 Patient Name: SOHAIL THOMPSON Unit No: [id number] EXAMS: CPT CODE: [id number] CT ABD PELVIS W/CONT 87942 Exam: CT scan of the abdomen and [...] wall demonstrates no significant abnormalities. IMPRESSION: [facility] NAME: SOHAIL THOMPSON Radiology Department PHYS: Arpan Wallace MD [address] : 1990 AGE: 28 SEX: F [place], [place] [address] LOC: F.4672 A PHONE #: [phone] EXAM DATE: 12/16/2018 STATUS: ADM IN FAX #: [phone] RAD NO: Page 1 Signed Report 1 Patient Name: SOHAIL THOMPSON Unit No: [id number] EXAMS: CPT CODE: [id number] CT ABD PELVIS W/CONT 67268 <Continued> Bilateral adnexal masses as described above. The patient gives a history of abscess drainage at [facility] October 05, 2018. She describes having drains and drainage bags on either side. The findings in the adnexal region may be sequela of this procedure. Prior images have been requested. at 1101 Reported and signed by: Charissa Arreola MD CC: Lianet Weir Technologist: Sarthak Coleman, RT, CT CTDI: 21.83 DLP: [phone] Trnscrbd D/ (1101) Sampson [facility] NAME: SOHAIL THOMPSON Radiology Department PHYS: Arpan Wallace MD [address] : 1990 AGE: 28 SEX: F [place] [address] LOC: Morteza.4672 A PHONE #: [phone] EXAM DATE: 12/16/2018 STATUS: ADM IN FAX #:[phone] RAD NO: Page 2 Signed Report 1 Patient Name: SOHAIL THOMPSON Unit No: [id number] EXAMS: CPT CODE: [id number] CT ABD PELVIS W/CONT 31986 <Continued> Orig Print D/T: S: 12/16/2018 (1104) [facility] NAME: SOHAIL THOMPSON Radiology Department PHYS: Arpan Wallace MD[address] : 1990 AGE: 28 SEX: F [place] [address] LOC: F.4672 A PHONE #: [phone] EXAM DATE: 12/16/2018 STATUS: ADM IN FAX #: [phone] RAD NO: Page 3 Signed Report [id number] 07:07:00 Test Item Value Reference Range Interpretation Comments GLUBED (test code = GLUBED) 241 mg/dL 65-110 H CREATINE KINASE (CK)2018-12-15 19:52:00 Test Item Value Reference Range Interpretation Comments CREATINE KINASE (CK) (test code = 60 Units/L 26-192 N CK) [id number] 16:55:00 Test Item Value Reference Range Interpretation Comments GLUBED (test code = 339 mg/dL 65-110 H Phsician Notified GLUBED) COMPREHENSIVE METABOLIC [id number] 11:01:00 Test Item Value Reference Range Interpretation [...] units/L 46-116 N code = ALKP) T4 [id number] 11:01:00 Test Item Value Reference Range Interpretation Comments T4 FREE (test code = T4F) 1.24 ng/dL 0.76-1.46 N THYROID STIMULATING [id number] 11:01:00 Test Item Value Reference Range Interpretation [...] be considered for these patients. GLYCOSYLATED HEMOGLOBIN [id number] 11:01:00 Test Item Value Reference Range Interpretation [...] MG/DL 70-110 H (test code = MBG) [id number] 10:19:00 Test Item Value Reference Range Interpretation Comments GLUBED (test code = 290 mg/dL 65-110 H Phsician Notified GLUBED) COMPREHENSIVE METABOLIC [id number] 07:23:00 Test Item Value Reference Range Interpretation [...] units/L 46-116 N code = ALKP) T4 [id number] 07:23:00 Test Item Value Reference Range Interpretation Comments T4 FREE (test code = T4F) 1.24 ng/dL 0.76-1.46 N THYROID STIMULATING [id number] 07:23:00 Test Item Value Reference Range Interpretation Comments THYROID STIMULATING 3.27 0.36-3.74 N Test Per formed in HORMONE (test code = MicroIn ternational Units/mL TSH) GLYCOSYLATED HEMOGLOBIN (HA1C)2018-12-15 07:23:00 Test Item Value Reference Range Interpretation Comments GLYCOSYLATED HEMOGLOBIN (HA1C) (test code = GLYHGB) [id number] 06:04:00 Test Item Value Reference Range Interpretation Comments GLUBED (test code = 308 mg/dL 65-110 H Phsician Notified GLUBED) COMPREHENSIVE METABOLIC [id number] 05:10:00 Test Item Value Reference Range Interpretation [...] 46-116 N code = ALKP) THYROID STIMULATING [id number] 05:10:00 Test Item Value Reference Range Interpretation Comments THYROID STIMULATING 3.27 0.36-3.74 N Test Per formed in HORMONE (test code = MicroIn ternational Units/mL TSH) GLYCOSYLATED HEMOGLOBIN (HA1C)2018-12-15 05:10:00 Test Item Value Reference Range Interpretation Comments GLYCOSYLATED HEMOGLOBIN (HA1C) (test code = GLYHGB) LACTIC [id number] 04:53:00 Test Item Value Reference Range Interpretation Comments LACTIC ACID (test code = LACT) 1.5 MMOL/L 0.5-2.2 N CBC W/AUTO [id number] 04:30:00 Test Item Value Reference Range Interpretation [...] code = PLTMR) - CT HEAD/BRAIN W/O [id number] 04:27:00 Patient Name: SOHAIL THOMPSON Unit No: [id number] EXAMS: CPT CODE: [id number] CT HEAD/BRAIN W/O CONT 16991 EXAM: CT, CT HEAD/BRAIN W/O CONTRAST; 12/15/2018, [...] acute hemorrhage or subacute stroke. SL: BRANDIN [facility] NAME: SOHAIL THOMPSON Radiology Department PHYS: Lianet Morrow MD [address] : 1990 AGE: 28 SEX: F [place], [place] [address] LOC: Senia4672 Eleanor PHONE #: [phone] EXAM DATE: 12/15/2018 STATUS: ADM IN FAX #: [phone] RAD NO: Page 1 Signed Report 1 Patient Name: SOHAIL THOMPSON UnitNo: [id number] EXAMS: CPT CODE: [id number] CT HEAD/BRAIN W/O CONT 37592 <Continued> at 0427 Reported and signed by: Paul Barreto M.D. CC: Lianet Weir Technologist: JENNI MEDINA, RT CTDI: 53.12 DLP: [phone] Trnscrbd D/ (0427) [email or web address] [facility] NAME[facility] Radiology Department PHYS: Lianet Morrow MD [address] : 1990 AGE: 28 SEX: F [place], [place] [address] LOC: F.4672 A PHONE #: [phone] EXAM DATE: 12/15/2018 STATUS: ADM IN FAX #: [phone] RAD NO: Page 2 Signed Report 1 Patient Name: ROSHANSOHAIL Unit No: [id number] EXAMS: CPT CODE: [id number] CT HEAD/BRAIN W/O CONT 19012 <Continued> Orig Print D/T: S: 12/15/2018 (0430) [facility] NAME: SOHAIL THOMPSON Radiology DepartmentPHYS: Lianet Morrow MD [address] : 1990 AGE: 28 SEX: F [place], [place] [address] LOC: F.4672 A PHONE #: [phone] EXAM DATE: 12/15/2018 STATUS: ADM IN FAX #: [phone] RAD NO: Page 3 Signed Report 1
[2020-09-15] MEDS ORDERED: NA CHLORIDE 0.9% 1,000 ML ONE (14:16)
--- NOTE | 2020-09-15 14:17 | RAD REPORT ---
EXAM DESCRIPTION: CT - Head Brain Wo Cont - 09/15/2020 2:04 pm CLINICAL HISTORY: HEADACHE COMPARISON: <Comparisons> TECHNIQUE: All CT scans are performed using dose optimization technique as appropriate and may inclu de automated exposure control or mA/KV adjustment according to patient size. FINDINGS: No intracranial hemorrhage, hydrocephalus or extra-axial fluid collection.No areas of brai n edema or evidence of midline shift. The paranasal sinuses and mastoids are clear. The calvarium is intact. IMPRESSION: No acute intracranial abnormality.
[2020-09-15 14:29] LABS: Absolute Lymphocytes (CBC) 2.6 K/uL (0.7-4.9); Basophils % 0.7 % (0-1.3); Hematocrit 44.9 % (36.0-45.0); Lymphocytes % 30.1 % (15.3-44.8); MPV 9.9 fL (7.6-11.3); RBC Red Blood Cell Count 5.13 M/uL (3.86-4.86)
--- NOTE | 2020-09-15 14:31 | RAD REPORT ---
EXAM DESCRIPTION: RAD - Chest Single View - 09/15/2020 1:55 pm CLINICAL HISTORY: COUGH COMPARISON: Chest Single View dated 04/12/2018; Chest Pa And Lat (2 Views) dated 04/09/2018; CHEST PA AN D LAT 2 VIEW dated 08/07/2009; ABDOMEN ACUTE SERIES dated 05/13/2001 FINDINGS: No evidence of edema or pneumonia. The heart size is within normal limits.No acute osseous abnormality. No significant pleural effusions or pneumothorax. IMPRESSION: No acute cardiopulmonary disease.
[2020-09-15 14:36] LABS: Urine Blood Trace-intact (Negative); Urine Glucose 2+ (Negative); Urine Protein Negative (Negative)
[2020-09-15 14:38] LABS: Protime INR 0.92
[2020-09-15 14:45] LABS: ALT/SGPT 42 U/L (12-78); AST/SGOT 14 U/L (15-37); Albumin 3.7 g/dL (3.4-5.0); Alkaline Phosphatase 104 U/L (45-117); BUN Blood Urea Nitrogen 11 mg/dL (7-18); Bicarbonate 26 mmol/L (21-32); Bilirubin Direct 0.2 mg/dL (0-0.2); Glucose Level 305 mg/dL (74-106); Magnesium 1.8 mg/dL (1.8-2.4); NT PRO-BNP 22 pg/mL (<125); Potassium 3.6 mmol/L (3.5-5.1); Sodium Level 133 mmol/L (136-145); Troponin (Emerg Dept Use Only) < 0.02 ng/mL (0.0-0.045)
[2020-09-15 14:55] LABS: Barbiturates NEGATIVE (NEGATIVE); Benzodiazepines NEGATIVE (NEGATIVE); Cocaine NEGATIVE (NEGATIVE); METHAMPHETAM NEGATIVE (NEGATIVE); Methadone NEGATIVE (NEGATIVE); Opiates NEGATIVE (NEGATIVE); Phencyclidine NEGATIVE (NEGATIVE); THC Cannibis NEGATIVE (NEGATIVE)
[2020-09-15] MEDS ORDERED: INSULIN -REGULAR HUMAN 50 UNIT/0.5 ML ML ONE (16:06)
--- NOTE | 2020-09-15 16:10 | EDPHYS ---
Physician Documentation [facility] Name: Stacy Islas Age: 29 yrs Sex: Female : 1990 Arrival Date: 09/15/2020 Time: 13:33 Bed 4 Private MD: ED Physician Bubba Nolan HPI: 09/15 13:47 This 29 yrs old Female presents to ER via Unassigned with complaints of ange Nausea, Headache, Doesn't Feel Right. Historical: - Allergies: 13:33 tazobactam; aa5 13:33 Zosyn; aa5 - Home Meds: 13:33 Lantus Sub-Q [Active]; Novolog U-100 Insulin aspart 100 unit/mL Sub-Q soln [Active]; aa5 - PMHx: 13:33 Diabetes - IDDM; aa5 - Family history:: not pertinent. ROS: 13:48 Constitutional: Negative for fever, chills, and weight loss, Eyes: Negative for injury, ange pain, redness, and discharge, ENT: Negative for injury, pain, and discharge, Neck: Negative for injury, pain, and swelling, Back: Negative for injury and pain, : Negative for injury, bleeding, discharge, and swelling, MS/Extremity: Negative for injury and deformity, Skin: Negative for injury, rash, and discoloration, Neuro: Negative for headache, weakness, numbness, tingling, and seizure, Psych: Negative for depression, anxiety, suicide ideation, homicidal ideation, and hallucinations, Allergy/Immunology: Negative for hives, rash, and allergies, Endocrine: Negative for neck swelling, polydipsia, polyuria, polyphagia, and marked weight changes, Hematologic/Lymphatic: Negative for swollen nodes, abnormal bleeding, and unusual bruising. 13:48 Cardiovascular: Positive for chest pain, of the chest. 13:48 Respiratory: Positive for cough, shortness of breath. 13:48 Abdomen/GI: Positive for nausea and vomiting. Exam: 13:48 Constitutional: This is a well developed, well nourished patient who is awake, alert, ange and in no acute distress. Head/Face: Normocephalic, atraumatic. Eyes: Pupils equal round and reactive to light, extra-ocular motions intact. Lids and lashes normal. Conjunctiva and sclera are non-icteric and not injected. Cornea within normal limits. Periorbital areas with no swelling, redness, or edema. ENT: Nares patent. No nasal discharge, no septal abnormalities noted. Tympanic membranes are normal and external auditory canals are clear. Oropharynx with no redness, swelling, or masses, exudates, or evidence of obstruction, uvula midline. Mucous membranes moist. Neck: Trachea midline, no thyromegaly or masses palpated, and no cervical lymphadenopathy. Supple, full range of motion without nuchal rigidity, or vertebral point tenderness. No Meningismus. Chest/axilla: Normal chest wall appearance and motion. Nontender with no deformity. No lesions are appreciated. Cardiovascular: Regular rate and rhythm with a normal S1 and S2. No gallops, murmurs, or rubs. Normal PMI, no JVD. No pulse deficits. Respiratory: Lungs have equal breath sounds bilaterally, clear to auscultation and percussion. No rales, rhonchi or wheezes noted. No increased work of breathing, no retractions or nasal flaring. Abdomen/GI: Soft, non-tender, with normal bowel sounds. No distension or tympany. No guarding or rebound. No evidence of tenderness throughout. Back: No spinal tenderness. No costovertebral tenderness. Full range of motion. Skin: Warm, dry with normal turgor. Normal color with no rashes, no lesions, and no evidence of cellulitis. MS/ Extremity: Pulses equal, no cyanosis. Neurovascular intact. Full, normal range of motion. Neuro: Awake and alert, GCS 15, oriented to person, place, time, and situation. Cranial nerves II-XII grossly intact. Motor strength 5/5 in all extremities. Sensory grossly intact. Cerebellar exam normal. Normal gait. Psych: Awake, alert, with orientation to person, place and time. Behavior, mood, and affect are within normal limits. 13:48 Musculoskeletal/extremity: DVT Exam: No signs of deep vein thrombosis. no pain, no swelling, no tenderness, negative Homans' sign noted on exam, no appreciated bluish discoloration, no erythema, no increased warmth. 14:29 ECG was reviewed by the Attending Physician. ange Vital Signs: 13:33 BP 116 / 74; Pulse 75; Resp 14 S; Temp 98.3(O); Pulse Ox 96% on R/A; Pain 10/10; aa5 15:52 BP 104 / 59; Pulse 74; Resp 16 S; Pulse Ox 100% on R/A; aa5 16:40 BP 106 / 74; Pulse 73; Resp 18 S; Pulse Ox 99% on R/A; aa5 MDM: 13:33 Patient medically screened. [facility] 13:49 Differential diagnosis: Nonspecific abd pain, gastritis, cholecystitis, pancreatitis, ange viral gastroenteritis, gastroenteritis. Data reviewed: vital signs, nurses notes, lab test result(s), EKG, radiologic studies, CT scan, plain films. Data interpreted: youth nutritional monitor: rate is 86 beats/min, rhythm is regular, Pulse oximetry: on room air is 99 %. Test interpretation: by ED physician or midlevel provider: ECG, plain radiologic studies. Counseling: I had a detailed discussion with the patient and/or guardian regarding: the historical points, exam findings, and any diagnostic results supporting the discharge/admit diagnosis, lab results, radiology results. 09/15 13:44 Order name: Basic Metabolic Panel; Complete Time: 15:11 [facility] 09/15 13:44 Order name: CBC with Diff; Complete Time: 15:11 [facility] 09/15 13:44 Order name: LFT's; Complete Time: 15:11 [facility] 09/15 13:44 Order name: Magnesium; Complete Time: 15:11 [facility] 09/15 13:44 Order name: NT PRO-BNP; Complete Time: 15:11 [facility] 09/15 13:44 Order name: PT-INR; Complete Time: 15:11 [facility] 09/15 13:44 Order name: Troponin (emerg Dept Use Only); Complete Time: 15:11 [facility] 09/15 13:46 Order name: Lipase; Complete Time: 15:11 [facility] 09/15 13:46 Order name: UDS; Complete Time: 15:11 [facility] 09/15 13:47 Order name: D-Dimer [facility] 09/15 13:52 Order name: Glucose, Ancillary Testing; Complete Time: 15:11 [facility] 09/15 14:29 Order name: D-Dimer; Complete Time: 15:11 [facility] 09/15 13:44 Order name: XRAY Chest (1 view); Complete Time: 15:11 [facility] 09/15 13:44 Order name: EKG; Complete Time: 13:44 [facility] 09/15 13:44 Order name: Cardiac monitoring; Complete Time: 13:52 [facility] 09/15 13:44 Order name: EKG - Nurse/Tech; Complete Time: 14:44 [facility] 09/15 13:44 Order name: IV Saline Lock; Complete Time: 13:52 [facility] 09/15 13:44 Order name: Labs collected and sent; Complete Time: 13:52 [facility] 09/15 13:44 Order name: O2 Per Protocol; Complete Time: 13:52 [facility] 09/15 13:44 Order name: O2 Sat Monitoring; Complete Time: 13:52 [facility] 09/15 13:46 Order name: CT Head Brain wo Cont; Complete Time: 15:11 [facility] 09/15 13:46 Order name: Urine Dipstick-Ancillary (obtain specimen); Complete Time: 14:52 [facility] 09/15 14:35 Order name: Urine Dipstick-Ancillary; Complete Time: 15:11 [facility] 09/15 14:46 Order name: Urine --Ancillary (enter results); Complete Time: 16:05 09/15 15:22 Order name: SARS-COV-2 RT PCR; Complete Time: 16:05 [facility] 09/15 13:46 Order name: Urine Test (obtain specimen); Complete Time: 14:52 [facility] EC:29 Rate is 76 beats/min. Rhythm is regular. QRS [place] is Normal. [place] interval is normal. QRS ange interval is normal. QT interval is normal. No Q waves. T waves are Normal. No ST changes noted. Clinical impression: Normal ECG and No evidence of ischemia. Interpreted by me. Reviewed by me. Administered Medications: 13:53 Drug: NS 0.9% 1000 ml Route: IV; Rate: 1 bolus; Site: right antecubital; aa5 15:48 Follow up: IV Status: Completed infusion; IV Intake: 1000ml iw 15:48 Drug: Insulin Regular Human 6 units {Co-Signature: aa5 (Bethanie Hays RN).} Route: iw IVP; Site: right antecubital; 15:57 Drug: Tylenol 1000 mg Route: PO; aa5 Disposition Summary: 09/15/20 16:09 Discharge Ordered Location: Home ange Problem: new ange Symptoms: have improved ange Condition: Stable ange Diagnosis - Type 1 diabetes mellitus with hyperglycemia ange - Headache ange - Weakness ange - Nausea ange Followup: ange - With: Private Physician - When: 2 - 3 days - Reason: Recheck today's complaints, Continuance of care, Re-evaluation by your physician Followup: ange - With: Tima Abraham MD - When: 2 - 3 days - Reason: Recheck today's complaints, Continuance of care, Re-evaluation by your physician Discharge Instructions: - Discharge Summary Sheet ange - Type 1 Diabetes Mellitus, Diagnosis, Adult ange - Hyperglycemia ange - Weakness ange - Fatigue ange - Weakness, [id number] ange - Aspirin and Your Heart ange Forms: - Medication Reconciliation Form ange - Thank You Letter ange - Antibiotic Education ange - Prescription Opioid Use ange - Work release form iw Prescriptions: - Zofran 4 mg Oral Tablet - take 1 tablet by ORAL route every 12 hours As needed; 20 tablet; Refills: 0, ange Product Selection Permitted Signatures: Dispatcher [employer] EDMS Bubba Nolan MD MD cha Williams, Irene RN Bethanie Quevedo RN RN aa5 Bethanie Hays RN aa5 Corrections: (The following items were deleted from the chart) 14:23 13:47 CORONAVIRUS+MR.LAB.BRZ ordered. EDMS EDMS 14:29 13:48 D-Dimer ordered. EDMS EDMS
--- NOTE | 2020-09-15 16:10 | ER ---
Nurse's Notes [facility] Name: Stacy Islas Age: 29 yrs Sex: Female : 1990 Arrival Date: 09/15/2020 Time: 13:33 Bed 4 Private MD: Diagnosis: Type 1 diabetes mellitus with hyperglycemia;Headache;Weakness;Nausea Presentation: 09/15 13:33 Chief complaint: EMS states: Pt's called 911 due to pt crying, EMS reports upon aa5 scene arrival pt was with eyes closed, not speaking to them and remained non-verbal en route but was able to ambulate to their stretcher. Pt currently resting with eyes closed, but A\T\O x 4. Pt reports frontal headache and nausea. 13:33 Coronavirus screen: nausea. Ebola Screen: Patient negative for fever greater than or aa5 equal to 101.5 degrees Fahrenheit, and additional compatible Ebola Virus Disease symptoms. Initial Sepsis Screen: Does the patient meet any 2 criteria? No. Patient's initial sepsis screen is negative. Does the patient have a suspected source of infection? No. Patient's initial sepsis screen is negative. Risk Assessment: Do you want to hurt yourself or someone else? Patient reports no desire to harm self or others. Onset of symptoms was September 15, 2020. Care prior to arrival: Glucose check: 296. 13:33 Acuity: VENTURA 3 aa5 13:33 Method Of Arrival: EMS: [facility] aa5 Historical: - Allergies: 13:33 tazobactam; aa5 13:33 Zosyn; aa5 - Home Meds: 13:33 Lantus Sub-Q [Active]; Novolog U-100 Insulin aspart 100 unit/mL Sub-Q soln [Active]; aa5 - PMHx: 13:33 Diabetes - IDDM; aa5 - Family history:: not pertinent. Screenin:30 Abuse screen: Denies threats or abuse. Nutritional screening: No deficits noted. aa5 Tuberculosis screening: No symptoms or risk factors identified. Fall Risk None identified. Assessment: 13:33 General: Appears uncomfortable, Behavior is calm, cooperative. Pain: Complains of pain aa5 in forehead Pain does not radiate. Pain currently is 10 out of 10 on a pain scale. Quality of pain is described as pressure, Is continuous. Neuro: Level of Consciousness is awake, alert, obeys commands, Oriented to person, place, time, situation, Shallot Packer are weak bilaterally Moves all extremities. Speech is normal, Facial symmetry appears normal, Pupils are PERRLA, Reports headache frontal area. Cardiovascular: Heart tones S1 S2 present Rhythm is regular. Respiratory: Airway is patent Respiratory effort is even, unlabored, Respiratory pattern is regular, symmetrical. GI: Abdomen is round non-distended, Bowel sounds present X 4 quads. Abd is soft and non tender X 4 quads. Patient currently denies nausea. : No signs and/or symptoms were reported regarding the genitourinary system. EENT: No signs and/or symptoms were reported regarding the EENT system. Derm: Skin is pink, warm \T\ dry. Musculoskeletal: Range of motion: intact in all extremities. 13:58 Reassessment: Pt to CT via stretcher . aa5 14:30 Reassessment: Pt resting in bed with eyes closed, respirations even and unlabored, easy aa5 to awaken to verbal stimuli, pt continues to complain of headache. . Vital Signs: 13:33 BP 116 / 74; Pulse 75; Resp 14 S; Temp 98.3(O); Pulse Ox 96% on R/A; Pain 10/10; aa5 15:52 BP 104 / 59; Pulse 74; Resp 16 S; Pulse Ox 100% on R/A; aa5 16:40 BP 106 / 74; Pulse 73; Resp 18 S; Pulse Ox 99% on R/A; aa5 ED Course: 13:33 Patient arrived in ED. ds1 13:33 Bubba Nolan MD is Attending Physician. ange 13:33 Arm band placed on Patient placed in an exam room, on a stretcher. aa5 13:33 Patient has correct armband on for positive identification. Placed in gown. Bed in low aa5 position. Call light in reach. Side rails up X2. cafeteria associate on. Pulse ox on. NIBP on. 13:40 Initial lab(s) drawn, by me, sent to lab. Inserted saline lock: 20 gauge in right aa5 antecubital area, using aseptic technique. Blood collected. 13:42 Bethanie Hays, JEFF is Primary Nurse. aa5 13:55 XRAY Chest (1 view) In Process Unspecified. EDMS 14:04 CT Head Brain wo Cont In Process Unspecified. EDMS 14:05 Triage completed. aa5 16:10 Tima Abraham MD is Referral Physician. [facility] 17:08 No provider procedures requiring assistance completed. IV discontinued, intact, iw bleeding controlled, No redness/swelling at site. Pressure dressing applied. Administered Medications: 13:53 Drug: NS 0.9% 1000 ml Route: IV; Rate: 1 bolus; Site: right antecubital; aa5 15:48 Follow up: IV Status: Completed infusion; IV Intake: 1000ml iw 15:48 Drug: Insulin Regular Human 6 units {Co-Signature: aa5 (Bethanie Hays RN).} Route: iw IVP; Site: right antecubital; 15:57 Drug: Tylenol 1000 mg Route: PO; aa5 Intake: 15:48 IV: 1000ml; Total: 1000ml. iw Outcome: 16:09 Discharge ordered by . [facility] 17:08 Discharged to home ambulatory. iw 17:08 Condition: good 17:08 Discharge instructions given to patient, Instructed on discharge instructions, follow up and referral plans. medication usage, Demonstrated understanding of instructions, follow-up care, medications, Prescriptions given X 1. 17:17 Patient left the ED. iw Signatures: Dispatcher [employer] Bubba Galarza MD MD cha Sanford, Demi ds1 Charisma Seals, RN Bethanie Quevedo, RN RN aa5 Bethanie Hays RN aa5
[2020-09-15] MEDS ORDERED: ACETAMINOPHEN 500 MG TAB ONE (16:15)
[2020-09-15 17:24] VITALS: TEMP 98.3
[2020-09-15 17:27] VITALS: BP 106/74; O2SAT 99
--- NOTE | 2020-09-16 08:02 | EKG ---
Test Date: 2020-09-15 Test Time: 14:23:34 Chlorobutadiene Scrubber Operator: PRISCILLA MEASUREMENT RESULTS: Intervals: Rate: 76 DE: 164 QRSD: 92 QT: 402 QTc: 452 [place]: P: 41 DE: 164 QRS: 35 T: 21 INTERPRETIVE STATEMENTS: Normal sinus rhythm Normal ECG No previous ECG available for comparison Electronically Signed On 09-16-20 08:00:20 CDT by Mauricio John
== END 2020-09-15 17:17 | disposition home or self-care (01) ==
LOC: ER 13:32
DX: E10.65 Type 1 diabetes mellitus with hyperglycemia (principal); R53.1 Weakness; R11.0 Nausea; Z79.4 Long term (current) use of insulin; Z20.822 Contact with and (suspected) exposure to COVID-19; Z91.018 Allergy to other foods
CPT/HCPCS: 96361; 93005; 85025; 80048; 36415; 83735; 81025; 85610; 82947; 85379; 80076; 81003; 84484; 83690; 83880; 80307; 70450; 71045; 96374; 99284; U0003; J7030

== ENCOUNTER 2020-11-16 16:39 | Emergency (ER) | payer OTHER ==
[2020-11-16 17:38] LABS: Urine Blood Trace-intact (Negative); Urine Glucose 2+ (Negative); Urine Protein Negative (Negative); Urine Specific Gravity 1.015 (1.005-1.030)
[2020-11-16] MEDS ORDERED: ACETAMINOPHEN 500 MG TAB ONE (17:47)
[2020-11-16 18:04] LABS: Urine Bacteria <20 /HPF (<20); Urine RBC <5 /HPF (NONE SEEN)
[2020-11-16] MEDS ORDERED: NA CHLORIDE 0.9% 2,000 ML ONE (18:39)
[2020-11-16] MEDS ORDERED: NPH (HUMAN) 100 UNITS/ML INSULIN SQ SCH (18:45)
[2020-11-16 19:02] LABS: Absolute Lymphocytes (CBC) 2.8 K/uL (0.7-4.9); Basophils % 0.7 % (0-1.3); Hematocrit 44.2 % (36.0-45.0); Lymphocytes % 26.7 % (15.3-44.8); MPV 10.1 fL (7.6-11.3); RBC Red Blood Cell Count 5.04 M/uL (3.86-4.86)
[2020-11-16] MEDS ORDERED: INSULIN -REGULAR HUMAN 50 UNIT/0.5 ML ML ONE ×2 (19:02→21:08)
[2020-11-16 19:05] LABS: ALT/SGPT 46 U/L (12-78); AST/SGOT 20 U/L (15-37); Albumin 3.5 g/dL (3.4-5.0); Alkaline Phosphatase 99 U/L (45-117); BUN Blood Urea Nitrogen 10 mg/dL (7-18); Bicarbonate 25 mmol/L (21-32); Bilirubin Direct 0.1 mg/dL (0-0.2); Bilirubin Total 0.8 mg/dL (0.2-1.0); Lipase 138 U/L (73-393); Potassium 3.9 mmol/L (3.5-5.1); Protein, Total 7.9 g/dL (6.4-8.2); Sodium Level 137 mmol/L (136-145)
[2020-11-16 19:07] LABS: Glucose Level 447 mg/dL (74-106)
[2020-11-16 21:08] LABS: Urine Specific Gravity/Preg 1.015 (1.005-1.030)
--- NOTE | 2020-11-16 22:03 | ER ---
Nurse's Notes [facility] Name: Stacy Islas Age: 30 yrs Sex: Female : 1990 Arrival Date: 11/16/2020 Time: 16:49 Bed 19 Private MD: Diagnosis: Diabetes mellitus due to underlying condition with hyperglycemia Presentation: 11/16 16:50 Chief complaint: Patient states: RIOS, fatigue, sore throat, slight cough, sneezing since ll1 last night. Daughter has covid right now. Coronavirus screen: Vaccine status: Patient reports being unvaccinated. Client denies travel out of the [place] in the last 14 days. cough unrelated to allergies, fatigue, headache, sore throat, loss of taste or smell, Client presents with at least one sign or symptom that may indicate coronavirus-19. Standard/surgical mask placed on the client. Ebola Screen: Patient denies travel to an Ebola-affected area in the 21 days before illness onset. Initial Sepsis Screen: Does the patient meet any 2 criteria? No. Patient's initial sepsis screen is negative. Does the patient have a suspected source of infection? Yes: Productive cough/pneumonia. Risk Assessment: Do you want to hurt yourself or someone else? Patient reports no desire to harm self or others. Onset of symptoms was November 15, 2020. 16:50 Method Of Arrival: Ambulatory ll1 16:50 Acuity: VENTURA 3 ll1 Triage Assessment: 16:50 Headache History: The patient has had previous headaches and this one is similar to bp previous episodes. General: Appears distressed, uncomfortable, obese, Behavior is cooperative, appropriate for age, anxious. Pain: Complains of pain in head Pain currently is 8 out of 10 on a pain scale. Pain began 2-3 days ago. Also complains of no other associated symptoms. EENT: No deficits noted. Neuro: Level of Consciousness is awake, alert, obeys commands, Oriented to Appropriate for age. Cardiovascular: No deficits noted. Respiratory: No deficits noted. GI: No signs and/or symptoms were reported involving the gastrointestinal system. : No signs and/or symptoms were reported regarding the genitourinary system. Derm: No deficits noted. Musculoskeletal: No deficits noted. Historical: - Allergies: 16:51 Zosyn; ll1 16:51 tazobactam; ll1 - PMHx: 16:51 Diabetes - IDDM; ll1 - PSHx: 16:51 hysterectomy; section; cellulitis I\T\D; ll1 - Immunization history:: Client reports having NOT received the Covid vaccine. Flu vaccine is not up to date. - Social history:: Smoking status: Patient denies any tobacco usage or history of. Screenin:30 Abuse screen: Denies threats or abuse. Denies injuries from another. Nutritional bp screening: No deficits noted. Tuberculosis screening: No symptoms or risk factors identified. Fall Risk None identified. Assessment: 16:50 General: SEE TRIAGE NOTE. bp 17:55 Reassessment: No changes from previously documented assessment. Patient and/or family bp updated on plan of care and expected duration. Pain level reassessed. 20:38 Reassessment: VORBARiver from Bubba MOORE to administer 5 units of regular insulin IVP. sj1 Vital Signs: 16:50 BP 111 / 62; Pulse 80; Resp 17; Temp 98.2; Pulse Ox 97% ; Weight 105.69 kg; Height 5 ll1 ft. 3 in. (160.02 cm); Pain 3/10; 17:56 BP 98 / 61; Pulse 77; Resp 17; Pulse Ox 98% ; bp 18:45 BP 110 / 80; Pulse 77; Resp 16; Pulse Ox 98% ; bp 21:57 BP 118 / 71; Pulse 81; Resp 17 S; Temp 98.5; Pulse Ox 99% on R/A; Pain 0/10; sj1 16:50 Body Mass Index 41.27 (105.69 kg, 160.02 cm) ll1 ED Course: 16:30 Patient has correct armband on for positive identification. Bed in low position. Call bp light in reach. Side rails up X2. Adult w/ patient. 16:49 Patient arrived in ED. ll1 16:51 Triage completed. ll1 16:52 Arm band placed on Patient placed in an exam room, on a stretcher. ll1 16:57 Bubba Hernandez PA is PHCP. cp 16:57 [place] Peralta MD is Attending Physician. cp 17:03 Dilan Abdullahi, EJFF is Primary Nurse. bp 17:52 Urine Microscopic Only Sent. bp 18:00 Inserted saline lock: 20 gauge in right wrist, using aseptic technique. bp 18:09 Urine --Ancillary (enter results) Sent. bp 21:57 No provider procedures requiring assistance completed. sj1 22:18 IV discontinued, intact, bleeding controlled, No redness/swelling at site. sj1 Administered Medications: 17:30 Drug: Tylenol 1000 mg Route: PO; bp 18:10 Follow up: Response: No adverse reaction; Pain is decreased bp 18:15 Drug: NS 0.9% 1000 ml Route: IV; Rate: 1 bolus; Site: right wrist; bp 18:15 Drug: NS 0.9% 1000 ml Route: IV; Rate: 1 bolus; Site: right wrist; bp 21:53 Follow up: IV Intake: 1000ml sj1 18:15 Drug: Insulin Regular Human 5 units {Co-Signature: tc5 (Ashely Guzmán RN).} Route: bp IVP; Site: right wrist; 18:45 Follow up: Response: No adverse reaction bp 18:37 CANCELLED (Physician Discretion): NovoLIN N 10 units Sub-Q once bp 20:44 Drug: Insulin Regular Human 5 units {Co-Signature: df1 (Megan Cohen).} Route: IVP; sj1 Site: right antecubital; 21:53 Follow up: Response: No adverse reaction sj1 20:47 Drug: NS 0.9% 1000 ml Route: IV; Rate: 1 bolus; Site: right wrist; sj1 21:54 Follow up: IV Intake: 1000ml sj1 22:17 Drug: Potassium Chloride 40 mEq Route: PO; sj1 22:17 Follow up: Response: No adverse reaction; Medication administered at discharge. sj1 Point of Care Testing: Blood Glucose: 17:52 Blood Glucose: 432 mg/dL; bp Ranges: Intake: 21:53 IV: 1000ml; Total: 1000ml. sj1 21:54 IV: 1000ml; Total: 2000ml. sj1 Outcome: 22:03 Discharge ordered by . cp 22:18 Discharged to home ambulatory. sj1 22:18 Condition: stable 22:18 Discharge instructions given to patient, Instructed on discharge instructions, follow up and referral plans. Demonstrated understanding of instructions, follow-up care. 22:30 Patient left the ED. sj1 Signatures: Bubba Hernandez PA PA cp Peltier, Brian RN RN bp Brooke Avila RN RN 1 Jordyn Hopson RN RN sj1 Ashely Guzmán RN tc5 Megan Cohen df1
--- NOTE | 2020-11-16 22:03 | EDPHYS ---
Physician Documentation [facility] Name: Stacy Islas Age: 30 yrs Sex: Female : 1990 Arrival Date: 11/16/2020 Time: 16:49 Bed 19 Private MD: ED Physician [place] Peralta HPI: 11/16 17:10 This 30 yrs old Female presents to ER via Ambulatory with complaints of cp Headache, Weakness. 17:10 The patient complains of pain to the top of head and forehead. cp 17:10 The patient describes the headache as aching. Onset: The symptoms/episode cp began/occurred today. Associated signs and symptoms: Pertinent positives: cough, sneezing, sore throat. Patient reports daughter recently tested positive for COVID-19. Historical: - Allergies: 16:51 Zosyn; ll1 16:51 tazobactam; ll1 - PMHx: 16:51 Diabetes - IDDM; ll1 - PSHx: 16:51 hysterectomy; section; cellulitis I\T\D; ll1 - Immunization history:: Client reports having NOT received the Covid vaccine. Flu vaccine is not up to date. - Social history:: Smoking status: Patient denies any tobacco usage or history of. ROS: 17:20 Constitutional: Negative for fever, poor PO intake. cp 17:20 Eyes: Negative for injury, pain, redness, and discharge. cp 17:20 ENT: Positive for sore throat, Negative for drainage from ear(s), ear pain, sinus congestion, sinus pain, difficulty swallowing, difficulty handling secretions. 17:20 Cardiovascular: Negative for chest pain, palpitations. 17:20 Respiratory: Positive for cough, Negative for shortness of breath, wheezing. 17:20 Abdomen/GI: Negative for abdominal pain, vomiting, diarrhea, constipation. 17:20 Skin: Negative for cellulitis, rash. 17:20 Neuro: Positive for headache, Negative for altered mental status, weakness. 17:20 All other systems are negative. Exam: 17:25 Head/Face: Normocephalic, atraumatic. cp 17:25 Constitutional: The patient appears in no acute distress, alert, awake, non-diaphoretic, non-toxic, well developed, well nourished. 17:25 Eyes: Periorbital structures: appear normal, Pupils: equal, round, and reactive to light and accomodation, Extraocular movements: intact throughout, Conjunctiva: normal, no exudate, no injection, Sclera: no appreciated abnormality, Lids and lashes: appear normal, bilaterally. 17:25 ENT: External ear(s): are unremarkable, Ear canal(s): are normal, clear, TM's: dullness, bilaterally, Nose: is normal, Mouth: Lips: moist, Oral mucosa: moist, Posterior pharynx: Airway: no evidence of obstruction, patent, Tonsils: no enlargement, no exudate, swelling, is not appreciated, erythema, that is mild, exudate, is not appreciated. 17:25 Neck: ROM/movement: is normal, is supple, without pain, no range of motions limitations, no meningismus, no nuchal rigidity, Lymph nodes: no appreciated lymphadenopathy. 17:25 Chest/axilla: Inspection: normal. 17:25 Cardiovascular: Rate: normal, Rhythm: regular. 17:25 Respiratory: the patient does not display signs of respiratory distress, Respirations: normal, no use of accessory muscles, no retractions, labored breathing, is not present, Breath sounds: decreased breath sounds, are not appreciated, stridor, is not appreciated, + upper airway congestion. 17:25 Abdomen/GI: Inspection: abdomen appears normal, Palpation: abdomen is soft and non-tender, in all quadrants. 17:25 Skin: cellulitis, is not appreciated, no rash present. 17:25 Neuro: Orientation: to person, place \T\ time. Mentation: is normal, Motor: moves all fours, strength is normal, Sensation: is normal. Vital Signs: 16:50 BP 111 / 62; Pulse 80; Resp 17; Temp 98.2; Pulse Ox 97% ; Weight 105.69 kg; Height 5 ll1 ft. 3 in. (160.02 cm); Pain 3/10; 17:56 BP 98 / 61; Pulse 77; Resp 17; Pulse Ox 98% ; bp 18:45 BP 110 / 80; Pulse 77; Resp 16; Pulse Ox 98% ; bp 21:57 BP 118 / 71; Pulse 81; Resp 17 S; Temp 98.5; Pulse Ox 99% on R/A; Pain 0/10; sj1 16:50 Body Mass Index 41.27 (105.69 kg, 160.02 cm) ll1 MDM: 16:58 Patient medically screened. cp 22:02 Data reviewed: vital signs, nurses notes, lab test result(s). cp 22:02 Differential diagnosis: DKA, electrolyte abnormality, viral illness. Counseling: I had cp a detailed discussion with the patient and/or guardian regarding: the historical points, exam findings, and any diagnostic results supporting the discharge/admit diagnosis, lab results, to return to the emergency department if symptoms worsen or persist or if there are any questions or concerns that arise at home. Response to treatment: the patient's symptoms have markedly improved after treatment, patient is well hydrated. and as a result, I will discharge patient. 11/16 17:08 Order name: Urine Microscopic Only 11/16 17:08 Order name: Influenza Screen (a \T\ B); Complete Time: 19:10 11/16 17:08 Order name: Strep; Complete Time: 19:10 11/16 17:09 Order name: Urine Microscopic Only; Complete Time: 18:19 EDMS 11/16 18:19 Interpretation: Normal except: SQEPI 5-10. 11/16 17:38 Order name: Urine Dipstick-Ancillary; Complete Time: 17:44 EDMS 11/16 17:44 Interpretation: Normal except: UGLUC 2+; UBLD Trace-intact. 11/16 17:39 Order name: Urine --Ancillary (enter results) eb 11/16 17:40 Order name: Urine --Ancillary EDMS 11/16 18:00 Order name: Basic Metabolic Panel; Complete Time: 19:10 11/16 18:00 Order name: CBC with Diff; Complete Time: 19:10 11/16 18:00 Order name: Hepatic Function; Complete Time: 19:10 11/16 18:00 Order name: Lipase; Complete Time: 19:10 11/16 18:00 Order name: Ketone, Serum; Complete Time: 19:10 11/16 18:00 Order name: Magnesium; Complete Time: 19:10 11/16 17:08 Order name: Accucheck Blood Glucose; Complete Time: 17:52 cp 11/16 17:08 Order name: Urine Dipstick-Ancillary (obtain specimen); Complete Time: 17:52 11/16 17:08 Order name: Urine Test (obtain specimen); Complete Time: 17:52 cp 11/16 18:02 Order name: Glucose, Ancillary Testing; Complete Time: 18:19 EDMS 11/16 18:20 Interpretation: Abnormal: GLUC,ANCIL 432. cp 11/16 18:56 Order name: SARS-COV-2 RT PCR; Complete Time: 20:27 EDMS 11/16 19:03 Order name: Throat Culture EDMS 11/16 20:28 Order name: Glucose, Ancillary Testing; Complete Time: 20:33 EDMS 11/16 20:33 Interpretation: Abnormal: GLUC,ANCIL 295. cp 11/16 22:03 Order name: Glucose, Ancillary Testing EDMS 11/16 18:00 Order name: IV Saline Lock; Complete Time: 18:38 cp 11/16 18:00 Order name: Labs collected and sent; Complete Time: 18:38 cp 11/16 20:28 Order name: Accucheck Blood Glucose; Complete Time: 20:44 cp 11/16 21:16 Order name: Accucheck Blood Glucose: recheck 6098; Complete Time: 21:53 cp Administered Medications: 17:30 Drug: Tylenol 1000 mg Route: PO; bp 18:10 Follow up: Response: No adverse reaction; Pain is decreased bp 18:15 Drug: NS 0.9% 1000 ml Route: IV; Rate: 1 bolus; Site: right wrist; bp 18:15 Drug: NS 0.9% 1000 ml Route: IV; Rate: 1 bolus; Site: right wrist; bp 21:53 Follow up: IV Intake: 1000ml sj1 18:15 Drug: Insulin Regular Human 5 units {Co-Signature: tc5 (Ashely Guzmán RN).} Route: bp IVP; Site: right wrist; 18:45 Follow up: Response: No adverse reaction bp 18:37 CANCELLED (Physician Discretion): NovoLIN N 10 units Sub-Q once bp 20:44 Drug: Insulin Regular Human 5 units {Co-Signature: df1 (Megan Cohen).} Route: IVP; sj1 Site: right antecubital; 21:53 Follow up: Response: No adverse reaction sj1 20:47 Drug: NS 0.9% 1000 ml Route: IV; Rate: 1 bolus; Site: right wrist; sj1 21:54 Follow up: IV Intake: 1000ml sj1 22:17 Drug: Potassium Chloride 40 mEq Route: PO; 1 22:17 Follow up: Response: No adverse reaction; Medication administered at discharge. sj1 Point of Care Testing: Blood Glucose: 17:52 Blood Glucose: 432 mg/dL; bp Ranges: Critical Glucose Levels:Adult <50 mg/dl or >400 mg/dl <40 mg/dl or >180 mg/dl Disposition Summary: 11/16/20 22:03 Discharge Ordered Location: Home cp Problem: new cp Symptoms: have improved cp Condition: Stable cp Diagnosis - Diabetes mellitus due to underlying condition with hyperglycemia cp Followup: cp - With: Private Physician - When: 2 - 3 days - Reason: Recheck today's complaints Discharge Instructions: - Discharge Summary Sheet cp - Hyperglycemia cp - Form - Daily Diabetes Record cp - Blood Glucose Monitoring, Adult cp - Diabetes Mellitus and Nutrition, Adult cp - COVID-19: What Your Test Results Mean - [facility] cp - COVID-19: Quarantine vs. Isolation - [facility] cp Forms: - Medication Reconciliation Form cp - Thank You Letter cp - Antibiotic Education cp - Prescription Opioid Use cp Addendum: 11/18/2020 07:01 Co-signature as Attending Physician, [place] Peralta MD I agree with the assessment and r n plan of care. Attestation: The patient's history, exam findings, diagnostics, and a summary of any interventions or procedures was reviewed in detail with Bubba MOORE. Signatures: Dispatcher [employer] EDMS Montana Peralta MD MD rn Page, Corey, PA PA cp Dilan Abdullahi RN RN bp Brooke Avila RN RN ll1 Jordyn Hopson RN RN sj1 Ashely Guzmán RN tc5 Megan Cohen df1 Corrections: (The following items were deleted from the chart) 11/16 18:37 18:00 NovoLIN N 10 units Sub-Q once ordered. cp bp 18:56 17:09 CORONAVIRUS+MR.LAB.CARLEYZ ordered. EDMS EDMS
[2020-11-16] MEDS ORDERED: POTASSIUM CL SA 10 MEQ TAB PO ONE (22:41)
[2020-11-16 22:44] VITALS: BP 118/71; TEMP 98.5; O2SAT 99
== END 2020-11-16 22:30 | disposition home or self-care (01) ==
LOC: ER 16:39
DX: E11.65 Type 2 diabetes mellitus with hyperglycemia (principal); Z20.822 Contact with and (suspected) exposure to COVID-19
CPT/HCPCS: 87070; 85025; 80048; 36415; 82010; 83735; 81025; 82947 ×3; 80076; 87081; 83690; 87804 ×2; 99284; U0003; J7030; 81003; 81015; J1815

== ENCOUNTER 2021-01-10 16:07 | Emergency (ER) | payer OTHER ==
--- OUTSIDE RECORDS SUMMARY | 2021-01-10 16:12 | XMS REPORT | Continuity of Care Document ---
:1990 Author Organization [facility] t Address [address] [place] [place] [address] Care Team Providers Name Role Phone Eleanor SALGADO Primary Care Physician Unavailable RICHARD Attending Clinician Unavailable Jaime GUDINO Attending Clinician Unavailable Jaime Burnham Attending Clinician Doctor Unassigned, Name Attending Clinician Unavailable Vince AGUILAR, L Attending Clinician Unavailable Dominic LEO, Shen Attending Clinician Romeo ROSS Attending Clinician Eleanor Salgado MD Attending Clinician Payers Payer Name Policy Type Policy Number Effective Date Expiration Date Paul BRADY [id number] 2019 HEALTH 00:00:00 Problems Condition Condition Condition Status Onset Resolution Last Treating Co mments Source Name Details Category Date Date Treatment Clinician Date NAFLD NAFLD Disease Active Univers (nonalcoho (nonalcoho 09-10 [place] of [place] fatty [place] liver liver 00 Medical disease) disease) Branch Metabolic Metabolic Disease Active Uni vers syndrome syndrome 824 ity of 00:00: [place] 00 Medical Branch Type 2 Type 2 Disease Active Overview: Univer s diabetes diabetes 10-02 Formattin ity of mellitus mellitus 00:00: g of this Ahmet as with with 00 note Medical complicati complicati might be Branch on, on, different without without from the long-term long-term original. current current Recurrent use of use of infection insulin insulin s Morbid Morbid Disease Active Univers obesity obesity 708 [place] of with body with body 00:[place] mass index mass index 00 Me dical of of Branch 40.0-49.9 40.0-49.9 PCOS PCOS Disease Active Univers (polycysti (polycysti [place] of c ovarian c ovarian [place] syndrome) syndrome) [facility] Branch Allergies, Adverse Reactions, Alerts Allergy Allergy Status Severity Reaction(s) Onset Inactive Treating Comm ents Source Name Type Date Date Clinician Penicill DA Active U 2018-02 [facility] ins 02-14 00:[facility]: [address] tazobact DA Active U 2018-02 [facility] am 02-14 00:00: [address] piperaci DA Active U 2018-02 [facility] llin 02-14 00:00: [address] Piperaci Propensi Active Anaphylaxis U nivers llin-Clark ty to 821 ity of obactam adverse 00:00: [place] reaction 00 Medical s Branch PIPERACI DRUG Active High Anaphylaxis Uni vers LLIN-CLARK 8-21 ity of OBACTAM 00:00: [place] 00 Medical Branch Zosyn Adverse Active shortness of [facility] Reaction breath [facility] Social History Social Habit Start Date Stop Date Quantity Comments Source History SDOH University o f Alcohol Std [place] [facility] Drinks Branch History SDOH University o f Alcohol Binge [place] [facility] al Branch Exposure to Yes University of SARS-CoV-2 [place] [facility] (event) Branch History SDDC University o f Alcohol Comment [place] Med ical Branch Alcohol intake 2020-11-29 2020-11-29 Lifetime University of 00:00:00 00:00:00 non-drinker [facility] (finding) Branch Tobacco use and 2018-08-16 2018-08-16 Never used Universit y of exposure 00:00:00 00:00:00 [place] [facility] History [facility] 2018-08-16 2018-08-16 1 University o f Alcohol Frequency 00:00:00 00:00:00 [facility] edical Branch Education 2018-08-16 2018-08-16 13 University 00:00:00 00:00:00 [place] [facility] History [facility] 2018-08-16 2018-08-16 3 University o f Financial 00:00:00 00:00:00 [place] [facility] History [facility] Food 2018-08-16 2018-08-16 1 Univers ity of Worry 00:00:00 00:00:00 [place] [facility] History [facility] Food 2018-08-16 2018-08-16 2 Univers ity of Scarcity 00:00:00 00:00:00 [place] [facility] History [facility] 2018-08-16 2018-08-16 2 University o f Transport Med 00:00:00 00:00:00 [place] Medic al Branch History [facility] 2018-08-16 2018-08-16 2 University o f Transport Non-Med 00:00:00 00:00:00 [facility] Sex [birth year] At [birth year] Universit y of 00:00:00 00:00:00 [facility] Smoking Status Start Date Stop Date Source Never smoker [facility] Medications Ordered Filled Start Stop Current Ordering Indication Dosage Frequency Signature Comments Components Source Medication Medication Date Date Medication? Clinician (SIG) Name Name ibuprofen 2020-02- No 600mg 600 mg, Uni vers (IBU) 03-13 12 Oral, ity of tablet 600 04:30: 03:20 ONCE, 1 Ahmet as mg 00 :00 dose, On Medical Wed Branch 01/09/21 at 2230, NELL bromphenira 2020-02 Yes [id number] 5mL Take 5 mL Univers mine-pseudo 2-01 by mouth 4 it y of ephedrine-D 00:00: (four[place] M (BROMFED 00 times Medical DM) 2-30-10 daily as Bran ch mg/5 mL needed for syrup Cough. benzonatate 2020-02 Yes [id number] 100mg Take 1 Univers 100 mg 2-01 capsule by ity of capsule 00:00: mouth 3 [place] 00 (three) Medical times Branch daily as needed for Cough. albuterol 2020-02 Yes [id number] 2{puff} Inhale 2 Univers 90 2-01 Puffs ity of mcg/actuati 00:00: every 4 Ahmet as on inhaler 00 (four) Medical hours as Branch needed for Wheezing or Shortness of Breath. clindamycin 2020-02- No 800mg Take 800 Univers 300 mg 0-21 10-21 mg by ity of capsule 10:08: 00:00 mouth 4 [place] 40 :00 (four) Medical times Branch daily. mupirocin 2 2020-02 Yes [id number] Apply to Univers % cream 0-21 [id number] area(s) 3 ity o f 00:00: (three) [place] 00 times Medical daily. Branch mupirocin 2 2020-02 Yes [id number] Apply to Univers % cream 0-21 [id number] area(s) 3 ity o f 00:00: (three) [place] 00 times Medical daily. Branch mupirocin 2 2020-02 Yes [id number] Apply to Univers % cream 0-21 [id number] area(s) 3 ity o f 00:00: (three) [place] 00 times Medical daily. Branch mupirocin 2 2020-02 Yes [id number] Apply to Univers % cream 0-21 [id number] area(s) 3 ity o f 00:00: (three) [place] 00 times Medical daily. Branch semaglutide 2020-02 Yes [id number] .5mg inject 0.5 Univers (OZEMPIC) 0-15 mg under ity of 0.25 mg or 00:00: the skin Ahmet as 0.5 mg(2 00 weekly. Medical mg/1.5 mL) Inject 0.5 Bra nch PnIj mg weekly semaglutide 2020-02 Yes [id number] .5mg inject 0.5 Univers (OZEMPIC) 0-15 mg under ity of 0.25 mg or 00:00: the skin Ahmet as 0.5 mg(2 00 weekly. Medical mg/1.5 mL) Inject 0.5 Bra nch PnIj mg weekly semaglutide 2020-02 Yes [id number] .5mg inject 0.5 Univers (OZEMPIC) 0-15 mg under ity of 0.25 mg or 00:00: the skin Ahmet as 0.5 mg(2 00 weekly. Medical mg/1.5 mL) Inject 0.5 Bra nch PnIj mg weekly semaglutide 2020-02 Yes [id number] .5mg inject 0.5 Univers (OZEMPIC) 0-15 mg under ity of 0.25 mg or 00:00: the skin Ahmet as 0.5 mg(2 00 weekly. Medical mg/1.5 mL) Inject 0.5 Bra nch PnIj mg weekly semaglutide 2020-02 Yes [id number] .5mg inject 0.5 Univers (OZEMPIC) 0-15 mg under ity of 0.25 mg or 00:00: the skin Ahmet as 0.5 mg(2 00 weekly. Medical mg/1.5 mL) Inject 0.5 Bra nch PnIj mg weekly BD INSULIN Yes Univers SYRINGE 9-29 ity of ULTRA-FINE 00:00: [place] 1 mL 31 00 Medical gauge x Branch 5/16 Syrg BD INSULIN 0 Yes Univers SYRINGE 9-29 ity of ULTRA-FINE 00:00: [place] 1 mL 31 00 Medical gauge x Branch 5/16 Syrg BD INSULIN 0 Yes Univers SYRINGE 9-29 ity of ULTRA-FINE 00:00: [place] 1 mL 31 00 Medical gauge x Branch 5/16 Syrg BD INSULIN 2020-0 Yes Univers SYRINGE 9-29 ity of ULTRA-FINE 00:00: [place] 1 mL 31 00 Medical gauge x Branch 5/16 Syrg valACYclovi Yes [id number] 500mg Take 1 Univers r (VALTREX) 9-20 tablet by ity of 500 mg 00:00: mouth 2 [place] tablet 00 (two) Medical times Branch daily. valACYclovi Yes [id number] 500mg Take 1 Univers r (VALTREX) 9-20 tablet by ity of 500 mg 00:00: mouth 2 [place] tablet 00 (two) Medical times Branch daily. valACYclovi Yes [id number] 500mg Take 1 Univers r (VALTREX) 9-20 tablet by ity of 500 mg 00:00: mouth 2 [place] tablet 00 (two) Medical times Branch daily. valACYclovi Yes [id number] 500mg Take 1 Univers r (VALTREX) 9-20 tablet by ity of 500 mg 00:00: mouth 2 [place] tablet 00 (two) Medical times Branch daily. valACYclovi 202-0 Yes [id number] 500mg Take 1 Univers r (VALTREX) 9-20 tablet by ity of 500 mg 00:00: mouth 2 [place] tablet 00 (two) Medical times Branch daily. ibuprofen 2020-0 Yes 800mg Take 800 Uni vers 800 mg 8-18 mg by ity of tablet 13:32: mouth [place] 28 every 6 Medical (six) Branch hours as needed. ibuprofen 2020-0 Yes 800mg Take 800 Uni vers 800 mg 8-18 mg by ity of tablet 13:32: mouth [place] 28 every 6 Medical (six) Branch hours as needed. ibuprofen 2020-0 Yes 800mg Take 800 Uni vers 800 mg 8-18 mg by ity of tablet 13:32: mouth [place] 28 every 6 Medical (six) Branch hours as needed. ibuprofen 2020-0 Yes 800mg Take 800 Uni vers 800 mg 8-18 mg by ity of tablet 13:32: mouth [place] 28 every 6 Medical (six) Branch hours as needed. ibuprofen 2020-0 Yes 800mg Take 800 Uni vers 800 mg 8-18 mg by ity of tablet 13:32: mouth [place] 28 every 6 Medical (six) Branch hours as needed. lisinopriL 2020-0 Yes [id number] 1.25mg Take 0.5 Univers 2.5 mg 8-07 tablets by ity of tablet 00:00: mouth [place] 00 daily. Medical Branch lisinopriL 2020-0 Yes [id number] 1.25mg Take 0.5 Univers 2.5 mg 8-07 tablets by ity of tablet 00:00: mouth [place] 00 daily. Medical Branch lisinopriL 2020-0 Yes [id number] 1.25mg Take 0.5 Univers 2.5 mg 8-07 tablets by ity of tablet 00:00: mouth [place] 00 daily. Medical Branch lisinopriL 2020-0 Yes [id number] 1.25mg Take 0.5 Univers 2.5 mg 8-07 tablets by ity of tablet 00:00: mouth [place] 00 daily. Medical Branch lisinopriL 2020-0 Yes [id number] 1.25mg Take 0.5 Univers 2.5 mg 8-07 tablets by ity of tablet 00:00: mouth [place] 00 daily. Medical Branch topiramate 1-0 Yes [id number] 25mg Take 1 Univers 25 mg 8-06 tablet by ity of tablet 00:00: mouth 2 [place] 00 (two) Medical times Branch daily. After one week may take 2 PO BID. topiramate 1-0 Yes [id number] 25mg Take 1 Univers 25 mg 8-06 tablet by ity of tablet 00:00: mouth 2 [place] 00 (two) Medical times Branch daily. After one week may take 2 PO BID. topiramate 2020-0 Yes [id number] 25mg Take 1 Univers 25 mg 8-06 tablet by ity of tablet 00:00: mouth 2 [place] 00 (two) Medical times Branch daily. After one week may take 2 PO BID. topiramate 1-0 Yes [id number] 25mg Take 1 Univers 25 mg 8-06 tablet by ity of tablet 00:00: mouth 2 [place] 00 (two) Medical times Branch daily. After one week may take 2 PO BID. topiramate 2020-0 Yes [id number] 25mg Take 1 Univers 25 mg 8-06 tablet by ity of tablet 00:00: mouth 2 [place] 00 (two) Medical times Branch daily. After one week may take 2 PO BID. insulin 0 Yes [id number] 1{each} 1 Each 4 Univers syr/ndl 7-29 (four) ity of U100 half 00:00: times [place] melvin 0.5 mL 00 daily. Use Me dical 31 gauge x with Branch 5/16" Syrg insulin 4 times daily. Dx E11.8 insulin Yes [id number] 1{each} 1 Each 4 Univers syr/ndl 7-29 (four) ity of U100 half 00:00: times [place] melvin 0.5 mL 00 daily. Use Me dical 31 gauge x with Branch 5/16" Syrg insulin 4 times daily. Dx E11.8 insulin Yes [id number] 1{each} 1 Each 4 Univers syr/ndl 7-29 (four) ity of U100 half 00:00: times [place] melvin 0.5 mL 00 daily. Use Me dical 31 gauge x with Branch 5/16" Syrg insulin 4 times daily. Dx E11.8 insulin Yes [id number] 1{each} 1 Each 4 Univers syr/ndl 7-29 (four) ity of U100 half 00:00: times [place] melvin 0.5 mL 00 daily. Use Me dical 31 gauge x with Branch 5/16" Syrg insulin 4 times daily. Dx E11.8 insulin 0 Yes [id number] 1{each} 1 Each 4 Univers syr/ndl 7-29 (four) ity of U100 half 00:00: times [place] melvin 0.5 mL 00 daily. Use Me dical 31 gauge x with Branch 5/16" Syrg insulin 4 times daily. Dx E11.8 blood sugar 0 Yes [id number] Use 4 U nivers diagnostic 7-09 times ity of (ONETOUCH 00:00: daily. Dx Ahmet as VERIO TEST 00 E11.8 Medical STRIPS) Branch strip lancets 0 Yes [id number] Use 4 Unive rs (ONE TOUCH 7-09 times ity of DELICA) 33 00:00: daily. Dx [place] gauge Misc 00 E11.8 Medical Branch insulin 0 Yes [id number] 15U inject 15 U nivers aspart 7-09 Units ity of RAPID 00:00: under the [place] (NOVOLOG 00 skin 3 Medical U-100 (three) Branch INSULIN times ASPART) 100 daily unit/mL before injection meals. insulin 0 Yes 50U inject 50 Unive rs glargine 7-09 Units ity of (LANTUS 00:00: under the [place] U-100 00 skin. Medical INSULIN) Branch 100 unit/mL injection blood sugar 0 Yes [id number] Use 4 U nivers diagnostic 7-09 times ity of (ONETOUCH 00:00: daily. Dx [place] as VERIO TEST 00 E11.8 Medical STRIPS) Branch strip lancets 2020-0 Yes [id number] Use 4 Unive rs (ONE TOUCH 7-09 times ity of DELICA) 33 00:00: daily. Dx [place] gauge Misc 00 E11.8 Medical Branch insulin 2020-0 Yes [id number] 15U inject 15 U nivers aspart 7-09 Units ity of RAPID 00:00: under the [place] (NOVOLOG 00 skin 3 Medical U-100 (three) Branch INSULIN times ASPART) 100 daily unit/mL before injection meals. insulin 0 Yes 50U inject 50 Unive rs glargine 7-09 Units ity of (LANTUS 00:00: under the [place] U-100 00 skin. Medical INSULIN) Branch 100 unit/mL injection blood sugar 2020-0 Yes [id number] Use 4 U nivers diagnostic 7-09 times ity of (ONETOUCH 00:00: daily. Dx [place] as VERIO TEST 00 E11.8 Medical STRIPS) Branch strip lancets 2020-0 Yes [id number] Use 4 Unive rs (ONE TOUCH 7-09 times ity of DELICA) 33 00:00: daily. Dx [place] gauge Misc 00 E11.8 Medical Branch insulin 2020-0 Yes [id number] 15U inject 15 U nivers aspart 7-09 Units ity of RAPID 00:00: under the [place] (NOVOLOG 00 skin 3 Medical U-100 (three) Branch INSULIN times ASPART) 100 daily unit/mL before injection meals. insulin 0 Yes 50U inject 50 Unive rs glargine 7-09 Units ity of (LANTUS 00:00: under the [place] U-100 00 skin. Medical INSULIN) Branch 100 unit/mL injection blood sugar 2020-0 Yes [id number] Use 4 U nivers diagnostic 7-09 times ity of (ONETOUCH 00:00: daily. Dx [place] as VERIO TEST 00 E11.8 Medical STRIPS) Branch strip lancets 0 Yes [id number] Use 4 Unive rs (ONE TOUCH 7-09 times ity of DELICA) 33 00:00: daily. Dx [place] gauge Misc 00 E11.8 Medical Branch insulin 2020-0 Yes [id number] 15U inject 15 U nivers aspart 7-09 Units ity of RAPID 00:00: under the [place] (NOVOLOG 00 skin 3 Medical U-100 (three) Branch INSULIN times ASPART) 100 daily unit/mL before injection meals. insulin 0 Yes 50U inject 50 Unive rs glargine 7-09 Units ity of (LANTUS 00:00: under the [place] U-100 00 skin. Medical INSULIN) Branch 100 unit/mL injection blood sugar 2020-0 Yes [id number] Use 4 U nivers diagnostic 7-09 times ity of (ONETOUCH 00:00: daily. Dx [place] as VERIO TEST 00 E11.8 Medical STRIPS) Branch strip lancets Yes [id number] Use 4 Unive rs (ONE TOUCH 7- times ity of DELICA) 33 00:00: daily. Dx [place] gauge Misc 00 E11.8 Medical Branch insulin Yes [id number] 15U inject 15 U nivers aspart 7- Units ity of RAPID 00:00: under the [place] (NOVOLOG 00 skin 3 Medical U-100 (three) Branch INSULIN times ASPART) 100 daily unit/mL before injection meals. insulin Yes 50U inject 50 Unive rs glargine 08-17 Units ity of (LANTUS 00:00: under the [place] U-100 00 skin. Medical INSULIN) Branch 100 unit/mL injection semaglutide 2020- No [id number] .25mg inject Univers (OZEMPIC) 08-17 10 0.25 mg ity of 0.25 mg or 00:00: 00:00 under the [place] 0.5 mg(2 00 :00 skin Medical mg/1.5 mL) weekly. Branch PnIj Inject 0.25 mg weekly for 4 weeks, then increase to 0.5 mg weekly injection. Insulin Yes [id number] Use as Univ ers [place], 4- directed ity of Disposable, 00:00: [place] (PEN 00 Medical NEEDLE) 31 Branch gauge x 5/16" Ndle Insulin Yes [id number] Use as Univ ers [place], - directed ity of Disposable, 00:00: [place] (PEN 00 Medical NEEDLE) 31 Branch gauge x 5/16" Ndle Insulin Yes [id number] Use as Univ ers [place], - directed ity of Disposable, 00:00: [place] (PEN 00 Medical NEEDLE) 31 Branch gauge x 5/16" Ndle Insulin Yes [id number] Use as Univ ers [place], - directed ity of Disposable, 00:00: [place] (PEN 00 Medical NEEDLE) 31 Branch gauge x 5/16" Ndle Insulin Yes [id number] Use as Univ ers [place], - directed ity of Disposable, 00:00: [place] (PEN 00 Medical NEEDLE) 31 Branch gauge x 5/16" Ndle linezolid 2020- No [id number] 600mg Take 1 Univers 600 mg 8-28 10-21 tablet by itanushka of tablet 00:00: 00:00 [facility] 00 :00 every 12 Medical (twelve) Branch hours. Norethin Norethin 2019-0 Yes Na Roche [address] [facility]13 [facility] 00[facility]00: [facility] Lancets Lancets 2018-0 Yes Na Roche one [facility] Super Thin Super Thin 4-17 Myriam es - 00:00: Memoria 00 [facility] Lisinopril Lisinopril Yes Na Roche [address] [facility] Loryna Loryna Yes Na Roche [address] [facility]ics Metformin Metformin Yes Na Roche [address] HCl HCl with meals [facility] Immunizations Ordered Filled Immunization Date Status Comments [facility] e Immunization Name Name [facility] 2013-02-09 Completed [facility] 00:00:[address] [facility] 2013-02-09 Completed [facility] 00:00:[address] [facility] 2013-02-09 Completed [facility] Com[facility] 00:00:[address] [facility] 2013-02-09 Completed [facility] 00:00:00 [facility] Vital Signs Vital Name Observation Time Observation Value Comments Source Heart rate 2021-01-10 03:14:00 110 /min [facility] Oxygen saturation in 2021-01-10 03:14:00 97 /min [facility] Arterial blood by [facility] Pulse oximetry Branch Systolic blood 2021-01-10 02:30:00 123 mm[Hg] Univer sity of pressure [facility] Diastolic blood 2021-01-10 02:30:00 73 mm[Hg] Unive rsity of pressure [facility] Body temperature 2021-01-10 02:30:00 38.06 [facility] Respiratory rate 2021-01-10 02:30:00 18 /min [facility] Body height 2021-01-10 02:30:00 160 cm [facility] Body weight 2021-01-10 02:30:00 102.513 kg [facility] BMI 2021-01-10 02:30:00 40.03 kg/m2 Universi [facility] Systolic blood 2020-11-23 18:39:00 126 mm[Hg] Univer sity of pressure [facility] Diastolic blood 2020-11-23 18:39:00 79 mm[Hg] Unive rsity of [facility] Heart rate 2020-11-23 18:39:00 79 /min [facility] Respiratory rate 2020-11-23 18:39:00 18 /min [facility] Body height 2020-11-23 18:39:00 160 cm [facility] Body weight 2020-11-23 18:39:00 103.42 kg [facility] BMI 2020-11-23 18:39:00 40.39 kg/m2 [facility] Oxygen saturation in 2020-11-23 18:39:00 97 /min [facility] Arterial blood by [facility] Pulse oximetry Branch Procedures Procedure Date / Time Performed Performing Clinician Sour e XR CHEST 1 VW 2021-01-10 03:31:15 Leeanne Jones [facility] URINALYSIS 2021-01-10 02:35:00 Leeanne Jones [facility] COVID-19 (ID NOW RAPID 2021-01-10 02:35:00 Leeanne Jones [facility] TESTING) Medical [place] POCT GLUCOSE 2021-01-10 02:29:00 Doctor Unassigned, No [facility] (AUTOMATED) Name [facility] Branch CONSENT/REFUSAL FOR 2021-01-10 02:15:57 Doctor Unassigned, No Un [facility] DIAGNOSIS AND Name [facility] Branch TREATMENT POCT HEMOGLOBIN A1C 2020-11-23 18:51:00 Josselyn Walters [facility] TEST [facility] Encounters Start End Encounter Admission Attending Care Care Encounter Source Date/Time Date/Time Type Type Clinicians Facility Department ID 2021-10-29 2021-10-29 Outpatient Jaime RAMOS [facility] [id number] Univers 10:00:00 10:00:00 GLADYS [facility] 2021-01-09 2021-01-09 Emergency X [facility] ERT [id number] Univers 20:52:00 22:30:00 TRUDY ity of [facility] 2021-01-09 2021-01-09 Emergency [facility] [id number] Univers 20:52:00 22:30:00 Trudy BEEBE [id number] i ty of [place]2.[place] EMMALENA [id number] [facility] 084 Branch 2021-01-09 2021-01-09 Orders Doctor MICHEAL [id number] Univers 00:00:00 00:00:00 Only Unassigned, GENARO [id number] ity of [place] Branch [facility] 4.2.7.2.686 Ahmet as [id number] [facility] 009 Branch 2021-01-09 2021-01-09 Telephone MICHEAL Clarke [id number] Univers 00:00:00 00:00:00 Idalia LAM [id number] ity of [facility] 4.2.7.2.686 Ahmet as [phone] [facility] 019 Branch 2021-01-05 2021-01-05 [facility] [id number] Univers 00:00:00 00:00:00 Tylor BEEBE [id number] ity of [place] [facility] [phone] Ia dical NAL 092 Branch [facility] 2020-11-23 2020-11-23 Office [facility] [id number] Univers 13:29:10 14:32:48 Visit Josselyn HEALTH [id number] it y of [facility] 4.2.7.2.686 Ahmet as MICHELE?BLEA [phone] Ia dical [address] [place] [facility] 2020-09-06 2020-09-06 Office [facility] [id number] 14:45:51 17:24:18 Visit [facility] [id number] [place] 4.2.7.2.686 [facility] [phone] nal [address] One 2020-04-26 2020-04-26 Outpatient [facility] [id number] [facility] 2020-04-26 2020-04-26 Outpatient [facility] [id number] [facility] 2020-04-09 2020-04-09 Outpatient [facility] [id number] [facility] 2020-04-04 2020-04-04 Outpatient [facility] [id number] [facility] 2020-03-19 2020-03-19 Outpatient [facility] [id number] [facility] 2020-03-19 2020-03-19 Outpatient [facility] [id number] [facility] 2020-02-15 2020-02-15 Outpatient [facility] [id number] [facility] 2020-01-25 2020-01-25 Outpatient [facility] [id number] [facility] 2020-01-24 2020-01-24 Outpatient [facility] [id number] [facility] 2019-12-07 2019-12-07 Outpatient [facility] [id number] [facility] 2019-11-22 2019-11-22 Outpatient [facility] [id number] [facility] 2019-11-14 2019-11-[address] [facility] [id number] [facility]00 [facility] 2019 2019 [facility] [id number] 13[facility]40:00 13:40:00 t Cause.it s - [facility] 2018-05-14 2018-05-14 [facility] [id number] 11:52:00 11:52:00 [facility] 2018-04-27 2018-04-27 [facility] [id number] 10:40:00 10:40:00 [facility] 2018-04-27 2018-04-27 [facility] [id number] 10:07:00 10[facility]07:00 [facility] 2018-04[facility] 2018-04-27 [facility] [id number] 09:15:00 09:15:00 t Specialty/U Tanisha kes - Specialty rology Memori a /Urology Clinic l Clinic Department of [facility] 2018-04-26 2018-04-26 [facility] [id number] [address] 13:36:00 13:36:00 t Specialty/U Tanisha kes - Specialty rology Memori a /Urology Clinic l Clinic [facility] 2018-04-21 2018-04-21 [facility] [id number] 10:00:00 10:00:00 t [facility] - Care Clinic [facility] 2017-08-24 2017-08-24 [facility] [id number] 10:31:00 10:31:00 t Cause.it s - Drive [facility] 2017-07-22 2017-07-22 [facility] [id number] 11:05:00 11:05:00 t [facility]'s [facility] 2017-05-26 2017-05-26 [facility] [id number] 09:15:00 09:15:00 t [place] [facility] Results Test Description Test Time Test Comments Results Result Comments Source POCT GLUCOSE (AUTOMATED) 2021-01-10 02:36:21 Test Item Value Reference Range Interpretation Comme nts POCT GLU (test code = 6669381617) 368 mg/dL 70-110 H Lab Interpretation (test code = 37858-8) [facility] [id number] 18:51:00 Test Item Value Reference Range Interpretation Comments POCT HBA1C (test code = 4548-4) 12.7 % 4-6 A Lab Interpretation (test code = Abnormal 96356-3) [facility] 06[facility]40:00 Test Item Value Reference Range Interpretation Comments GLUBED (test code = GLUBED) 92 mg/dL 65-110 N [id number] 23:29:00 Test Item Value Reference Range Interpretation Comments GLUBED (test code = GLUBED) 98 mg/dL 65-110 N [id number] 06:39:00 Test Item Value Reference Range Interpretation Comments GLUBED (test code = GLUBED) 94 mg/dL 65-110 N [id number] 22:51:00 Test Item Value Reference Range Interpretation Comments GLUBED (test code = GLUBED) 112 mg/dL 65-110 H [id number] 19:02:00 Test Item Value Reference Range Interpretation Comments GLUBED (test code = GLUBED) 76 mg/dL 65-110 N [id number] 13:24:00 Test Item Value Reference Range Interpretation Comments GLUBED (test code = GLUBED) 80 mg/dL 65-110 N [id number] 07:43:00 Test Item Value Reference Range Interpretation Comments GLUBED (test code = GLUBED) 86 mg/dL 65-110 N [id number] 21:39:00 Test Item Value Reference Range Interpretation Comments GLUBED (test code = GLUBED) 111 mg/dL 65-110 H [id number] 18:57:00 Test Item Value Reference Range Interpretation Comments GLUBED (test code = GLUBED) 103 mg/dL 65-110 N CHEMISTRY 7 [id number] 13:47:00 Test Item Value Reference Range Interpretation [...] CA) 8.5 mg/dL 8.4-10.2 N CBC W/AUTO [id number] 13:29:00 Test Item Value Reference Range Interpretation [...] NORMAL NORMAL code = PLTMR) SOFT TISSUE,NOT DANNIE/MASS/[id number] 13:23:00 RUN DATE: 12/21/18 [facility] PAGE 1 RUN TIME: 1410 Specimen Inquiry RUN USER: INTERFACE PATIENT: SOHAIL THOMPSON LOC: JOSE U #: [id number] AGE/SX: 28/F ROOM: [facility] RE12/15/18REG DR: Arpan Min MD : 88 BED: A DIS: STATUS: ADM IN TLOC: SPEC #: [id number] RECD: 12/20/18 STATUS: OLEGARIO WHITESIDE #: [id number] ARELIS: 12/17/18 DR: Arpan Min MD ENTERED: 12/20/18 SP TYPE: SOFTNOTMLD OTHR DR: Jesús Lord MD, Jill C MD Nasser, Dean A MDORDERED: LEVEL IV CODES: [id number] - SOFT TISSUES, N COPIES TO: Jesús Lord MD [address] [facility] [address] [place] [id number] Lianet Weir MD [address] [facility] [address] [place], [place] [id number] [email or web address] Kristofer Gó[place] [address] [place], [place] [id number] Arpan Min MD [address] [facility] [address] [place], [place] [id number] PROCEDURES: LEVEL IV (Incomplete) TISSUES: SOFT TISSUES, NOS - EPIPLOACA WITH ABSCESS/SIGMOID/UTERUS,CERVIX,TUBES AND OVARIES CLINICAL HISTORY 28 year old, tubo-ovarian abscess (kr) CONTINUED ON NEXT PAGE RUN DATE: 12/21/18 [facility] PAGE 2 RUN TIME: 1410 Specimen Inquiry RUN USER: INTERFACE SPEC #: [id number] PATIENT: SOHAIL THOMPSON #[id number] (Continued) FINAL DIAGNOSIS Epiploica with abscess, excision: [...] adhesions, and ovarian serosal abscesses CPT code(s): 36536 x2, 83772 [facility] 12/21/18 GROSS DESCRIPTION ANATOMIC SOURCE OF [...] Specimen Inquiry RUN USER: INTERFACE SPEC #: [id number] PATIENT: SOHAIL THOMPSON #[id number] (Continued) GROSS DESCRIPTION (Continued) areas of induration, fibrosis and possible fat necrosis. Section code: B1 - donuts, B2 through B6 - business center representative sections of bowel with possible diverticular [...] serosal adhesions, C5 and C6 - business center representative sections of small adnexa, C7 through C9 - business center representative sections of large adnexa. diana 12/20/18 @ 1125 Signed Diana James MD 12/21/18 1323 END OF REPORT [id number] 13:17:00 Test Item Value Reference Range Interpretation Comments GLUBED (test code = GLUBED) 89 mg/dL 65-110 N - XR ABDOMEN [id number] 10:26:00 Patient Name: SOHAIL THOMPSON Unit No: [id number] EXAMS: CPT CODE: [id number] XR ABDOMEN 2V 34267 ABDOMINAL RADIOGRAPHS-ERECT AND SUPINE COMPARISON: CT abdomen [...] Weir Technologist: RT Dom Trnscrbd D/ (1026) t.SDR.AJ13 Orig Print D/T: S: 12/21/2018 (1029) [facility] NAME: SOHAIL THOMPSON Radiology Department PHYS: Arpan Wallace MD [address] : 1990 AGE: 28 SEX: F [place], [place] [address] LOC: F.2650 A PHONE #: [phone] EXAM DATE: 12/21/2018 STATUS: ADM INFAX #: [phone] RAD NO: Page 1 Signed [id number] 06:40:00 Test Item Value Reference Range Interpretation Comments GLUBED (test code = GLUBED) 117 mg/dL 65-110 H [id number] 00:48:00 Test Item Value Reference Range Interpretation Comments GLUBED (test code = GLUBED) 153 mg/dL 65-110 H [id number] 18:32:00 Test Item Value Reference Range Interpretation Comments GLUBED (test code = GLUBED) 83 mg/dL 65-110 N [id number] 12:58:00 Test Item Value Reference Range Interpretation Comments GLUBED (test code = GLUBED) 153 mg/dL 65-110 H CHEMISTRY 7 [id number] 05:45:00 Test Item Value Reference Range Interpretation [...] CA) 8.1 mg/dL 8.4-10.2 L CBC W/AUTO [id number] 05:30:00 Test Item Value Reference Range Interpretation [...] REQUIRED (test NORMAL NORMAL code = PLTMR) [id number] 00:18:00 Test Item Value Reference Range Interpretation Comments GLUBED (test code = GLUBED) 107 mg/dL 65-110 N [id number] 18:27:00 Test Item Value Reference Range Interpretation Comments GLUBED (test code = GLUBED) 144 mg/dL 65-110 H [id number] 12:13:00 Test Item Value Reference Range Interpretation Comments GLUBED (test code = GLUBED) 126 mg/dL 65-110 H [id number] 08:47:00 Test Item Value Reference Range Interpretation Comments MAGNESIUM (test code = MAG) 1.8 mg/dL 1.8-2.4 N Comments to Shingle Cutter: DO ON BLOOD IN LAB-- DRAWN THIS AMSpecimen Comment: BLOOD IN LAB.CHEMISTRY 7 [id number] 05:19:00 Test Item Value Reference Range Interpretation [...] CA) 7.5 mg/dL 8.4-10.2 L CBC W/AUTO [id number] 05:06:00 Test Item Value Reference Range Interpretation [...] REQUIRED (test NORMAL NORMAL code = PLTMR) [id number] 00:47:00 Test Item Value Reference Range Interpretation Comments GLUBED (test code = GLUBED) 159 mg/dL 65-110 H [id number] 21:14:00 Test Item Value Reference Range Interpretation Comments C-PEPTIDE (test code 2.9 ng/mL 1.1-4.4 C-Pepti de reference = CPEP) interval is for fasting patients.Perfor med At: HD [facility] [address] [id number] Rosa MD [phone] [id number] 21:14:00 Test Item Value Reference Range Interpretation Comments INSULIN (test code = 22.1 uIU/mL 2.6-24.9 Perform ed At: INS) [facility] [address] [id number] Rosa MD Ph:[phone] [id number] 18:25:00 Test Item Value Reference Range Interpretation Comments GLUBED (test code = GLUBED) 134 mg/dL 65-110 H [id number] 12:38:00 Test Item Value Reference Range Interpretation Comments GLUBED (test code = GLUBED) 137 mg/dL 65-110 H COMPREHENSIVE METABOLIC [id number] 05:57:00 Test Item Value Reference Range Interpretation [...] 69 units/L 46-116 N code = ALKP) [id number] 05:57:00 Test Item Value Reference Range Interpretation Comments MAGNESIUM (test code = 1.0 mg/dL 1.8-2.4 L RESUL TS CALLED TO ) ZAC TURK D BACK & CONFIRMED? Y. BY ESTRELLA.LDT 12/18 0557. RESULTS VERIFIED BY REP EAT ANALYSIS CBC W/AUTO [id number] 05:13:00 Test Item Value Reference Range Interpretation [...] NORMAL NORMAL REQUIRED (test code = PLTMR) [id number] 00:21:00 Test Item Value Reference Range Interpretation Comments GLUBED (test code = GLUBED) 280 mg/dL 65-110 H CHEMISTRY 7 [id number] 23:10:00 Test Item Value Reference Range Interpretation [...] CA) 7.1 mg/dL 8.4-10.2 L CBC W/AUTO [id number] 18:05:00 Test Item Value Reference Range Interpretation Comments WHITE BLOOD CELL 28.6 K/mm3 6.6-12.1 HH RESULTS GILBERT IFIED BY (test code = WBC) REPEAT KEIRA LYSISRESULTS CALLED TO KARINA VILLALTA .READ BACK & CO NFIRMED? Y.BY F.LAB.RV 1 02/16/18 1730. RED BLOOD CELL (test 5.23 [...] NORMAL REQUIRED (test code = PLTMR) WBC [id number] 18:05:00 Test Item Value Reference Range Interpretation [...] code = NORMAL NORMAL PLTMORPH) CHEMISTRY 7 [id number] 17:48:00 Test Item Value Reference Range Interpretation [...] CA) 7.5 mg/dL 8.4-10.2 L CBC W/AUTO [id number] 17:32:00 Test Item Value Reference Range Interpretation Comments WHITE BLOOD CELL 28.6 K/mm3 6.6-12.1 HH RESULTS GILBERT IFIED BY (test code = WBC) REPEAT KEIRA LYSISRESULTS CALLED TO KARINA VILLALTA .READ BACK & CO NFIRMED? Y.BY F.LAB.RV 1 02/16/18 8980. RED BLOOD CELL (test 5.23 M/mm3 3.45-5.01 [...] NORMAL REQUIRED (test code = PLTMR) WBC [id number] 17:32:00 Test Item Value Reference Range Interpretation Comments SEGMENTED NEUTROPHILS (test code = SEG) % 56.5-79.4 LYMPHOCYTE (test code = LYMPH) % 20-40 CBC W/AUTO [id number] 17:32:00 Test Item Value Reference Range Interpretation Comments WHITE BLOOD CELL 28.6 K/mm3 6.6-12.1 HH RESULTS GILBERT IFIED BY (test code = WBC) REPEAT KEIRA LYSISRESULTS CALLED TO KARINA VILLALTA .READ BACK & CO NFIRMED? Y.BY F.LAB.RV 1 02/16/18 5730. RED BLOOD CELL (test 5.23 M/mm3 3.45-5.01 [...] NORMAL REQUIRED (test code = PLTMR) WBC [id number] 17:32:00 Test Item Value Reference Range Interpretation Comments SEGMENTED NEUTROPHILS (test code = SEG) % 56.5-79.4 LYMPHOCYTE (test code = LYMPH) % 20-40 [id number] 14:59:00 Test Item Value Reference Range Interpretation Comments GLUBED (test code = GLUBED) 288 mg/dL 65-110 H [id number] 06:04:00 Test Item Value Reference Range Interpretation Comments GLUBED (test code = GLUBED) 201 mg/dL 65-110 H URINALYSIS [id number] 03:54:00 Test Item Value Reference Range Interpretation [...] NITRITE DIPSTICK (test NEG NEG code = SANDRIAT) UA LEUKOCYTE ESTERASE 2+ NEG A DIPSTICK [...] SAMPLE: CLEAN CATCHComment URINE WITH CULTUREUR HCG [id number] 03:54:00 Test Item Value Reference Range Interpretation [...] URINE SAMPLE: CLEAN CATCHComment URINE WITH CULTUREURINALYSIS [id number] 03:38:00 Test Item Value Reference Range Interpretation [...] SAMPLE: CLEAN CATCHComment URINE WITH CULTUREUR HCG [id number] 03:38:00 Test Item Value Reference Range Interpretation [...] tested. URINE SAMPLE: CLEAN CATCHComment URINE WITH [id number] 22:09:00 Test Item Value Reference Range Interpretation Comments GLUBED (test code = 263 mg/dL 65-110 H Phsician Notified GLUBED) [id number] 17:08:00 Test Item Value Reference Range Interpretation Comments GLUBED (test code = GLUBED) 286 mg/dL 65-110 H [id number] 15:28:00 Test Item Value Reference Range Interpretation Comments CREATININE (test code = CREAT) 0.9 mg/dL 0.5-1.0 N IS THIS A ONCE DAILY SINGLE DOSE? YESDATE OF LAST DOSE: 12/16/18TIME OF LAST DOSE: [id number] 15:28:00 Test Item Value Reference Range Interpretation Comments GENTAMICIN (test code 0.8 mcg/mL 0-14 N Adult normal range = GENT) for once daily dose of Gentamicin m ay beup to 24 mcg/ mL. Gentamicin resu lts must be correla darshan withthe time th e dose was administere d. IS THIS A ONCE DAILY SINGLE DOSE? YESDATE OF LAST DOSE: 12/16/18TIME OF LAST DOSE: [id number] 13:24:00 Test Item Value Reference Range Interpretation Comments GLUBED (test code = GLUBED) 274 mg/dL 65-110 H HCG [id number] 12:13:00 Test Item Value Reference Range Interpretation [...] THE ROOM AT THIS TIME. PHLEB/RBCHEMISTRY 7 [id number] 12:11:00 Test Item Value Reference Range Interpretation [...] IN THE ROOM AT THIS TIME. @ 42628BO TRY 1018 AM. PHLEB/RBCBC W/AUTO [id number] 11:40:00 Test Item Value Reference Range Interpretation [...] PLTMR) COME BACK LATER- CT ABD PELVIS [id number] 11:01:00 Patient Name: SOHAIL THOMPSON Unit No: [id number] EXAMS: CPT CODE: [id number] CT ABD PELVIS W/CONT 36612 Exam: CT scan of the abdomen and [...] wall demonstrates no significant abnormalities. IMPRESSION: [facility] NAME: SOHAIL THOMPSON Radiology Department PHYS: Arpan Wallace MD [address] : 1990 AGE: 28 SEX: F [place], [place] [address] LOC: Senia4672 Eleanor PHONE #: [phone] EXAM DATE: 12/16/2018 STATUS: ADM IN FAX #: [phone] RAD NO: Page 1 Signed Report 1 Patient Name: SOHAIL THOMPSNO Unit No: [id number] EXAMS: CPT CODE: [id number] CT ABD PELVIS W/CONT 77091 <Continued> Bilateral adnexal masses as described above. The patient gives a history of abscess drainage at [facility] October 05, 2018. She describes having drains and drainage bags on either side. The findings in the adnexal region may be sequela of this procedure. Prior images have been requested. at 1101 Reported and signed by: Charissa Arreola MD CC: Lianet Weir Technologist: Sarthak Coleman, RT, CT CTDI: 21.83 DLP: 1880.60 Trnscrbd D/ (1101) [place] [facility] NAME: ROSHANSOHAIL Radiology Department PHYS: Arpan Wallace MD [address] : 1990 AGE: 28 SEX: F [place] [address] LOC: F.4672 A PHONE #: [phone] EXAM DATE: 12/16/2018 STATUS: ADM IN FAX #:[phone] RAD NO: Page 2 Signed Report 1 Patient Name: SOHAIL THOMPSON Unit No: [id number] EXAMS: CPT CODE: [id number] CT ABD PELVIS W/CONT 14854 <Continued> Orig Print D/T: S: 12/16/2018 (1104) [facility] NAME: ROSHANJOSE ALEJANDRO MAYNARDINA Radiology Department PHYS: Arpan Wallace MD[address] : 1990 AGE: 28 SEX: F [place] [address] LOC: F.4672 A PHONE #: [phone] EXAM DATE: 12/16/2018 STATUS: ADM IN FAX #: [phone] RAD NO: Page 3 Signed Report 1GLUBED 2018-12-16 07:07:00 Test Item Value Reference Range Interpretation Comments GLUBED (test code = GLUBED) 241 mg/dL 65-110 H CREATINE KINASE (CK)2018-12-15 19:52:00 Test Item Value Reference Range Interpretation Comments CREATINE KINASE (CK) (test code = 60 Units/L 26-192 N CK) [id number] 16:55:00 Test Item Value Reference Range Interpretation Comments GLUBED (test code = 339 mg/dL 65-110 H Phsician Notified GLUBED) GLYCOSYLATED HEMOGLOBIN [id number] 11:01:00 Test Item Value Reference Range Interpretation [...] MG/DL 70-110 H (test code = MBG) COMPREHENSIVE METABOLIC [id number] 11:01:00 Test Item Value Reference Range Interpretation [...] units/L 46-116 N code = ALKP) T4 [id number] 11:01:00 Test Item Value Reference Range Interpretation Comments T4 FREE (test code = T4F) 1.24 ng/dL 0.76-1.46 N THYROID STIMULATING [id number] 11:01:00 Test Item Value Reference Range Interpretation [...] fructosaminesho uld be considered for these patients. [id number] 10:19:00 Test Item Value Reference Range Interpretation Comments GLUBED (test code = 290 mg/dL 65-110 H Phsician Notified GLUBED) COMPREHENSIVE METABOLIC [id number] 07:23:00 Test Item Value Reference Range Interpretation [...] units/L 46-116 N code = ALKP) T4 [id number] 07:23:00 Test Item Value Reference Range Interpretation Comments T4 FREE (test code = T4F) 1.24 ng/dL 0.76-1.46 N THYROID STIMULATING [id number] 07:23:00 Test Item Value Reference Range Interpretation Comments THYROID STIMULATING 3.27 0.36-3.74 N Test Per formed in HORMONE (test code = MicroIn ternational Units/mL TSH) GLYCOSYLATED HEMOGLOBIN (HA1C)2018-12-15 07:23:00 Test Item Value Reference Range Interpretation Comments GLYCOSYLATED HEMOGLOBIN (HA1C) (test code = GLYHGB) [id number] 06:04:00 Test Item Value Reference Range Interpretation Comments GLUBED (test code = 308 mg/dL 65-110 H Phsician Notified GLUBED) COMPREHENSIVE METABOLIC [id number] 05:10:00 Test Item Value Reference Range Interpretation [...] 46-116 N code = ALKP) THYROID STIMULATING [id number] 05:10:00 Test Item Value Reference Range Interpretation Comments THYROID STIMULATING 3.27 0.36-3.74 N Test Per formed in HORMONE (test code = MicroIn ternational Units/mL TSH) GLYCOSYLATED HEMOGLOBIN (HA1C)2018-12-15 05:10:00 Test Item Value Reference Range Interpretation Comments GLYCOSYLATED HEMOGLOBIN (HA1C) (test code = GLYHGB) LACTIC [id number] 04:53:00 Test Item Value Reference Range Interpretation Comments LACTIC ACID (test code = LACT) 1.5 MMOL/L 0.5-2.2 N CBC W/AUTO [id number] 04:30:00 Test Item Value Reference Range Interpretation [...] code = PLTMR) - CT HEAD/BRAIN W/O [id number] 04:27:00 Patient Name: SOHAIL THOMPSON Unit No: [id number] EXAMS: CPT CODE: [id number] CT HEAD/BRAIN W/O CONT 02852 EXAM: CT, CT HEAD/BRAIN W/O CONTRAST; 12/15/2018, [...] acute hemorrhage or subacute stroke. SL: BRANDIN [facility] NAME: ROSHANSOHAIL Radiology Department PHYS: Lianet Morrow MD [address] : 1990 AGE: 28 SEX: F [place] [address] LOC: F.4672 A PHONE #: [phone] EXAM DATE: 12/15/2018 STATUS: ADM IN FAX #: [phone] RAD NO: Page 1 Signed Report 1 Patient Name: SOHAIL THOMPSON UnitNo: [id number] EXAMS: CPT CODE: [id number] CT HEAD/BRAIN W/O CONT 29831 <Continued> at 0427 Reported and signed by: Paul Barreto M.D. CC: Lianet Weir Technologist: JENNI MEDINA, RT CTDI: 53.12 DLP: 879.86 Trnscrbd D/ (0427) AdeliaJS38 [facility] NAME:SOHAIL THOMPSON Radiology Department PHYS: Lianet Morrow MD [address] : 1990 AGE: 28 SEX: F [place] [address] LOC: F.4672 A PHONE #: [phone] EXAM DATE: 12/15/2018 STATUS: ADM IN FAX #: [phone] RAD NO: Page 2 Signed Report 1 Patient Name: SOHAIL THOMPSON Unit No: [id number] EXAMS: CPT CODE: [id number] CT HEAD/BRAIN W/O CONT 21497 <Continued> Orig Print D/T: S: 12/15/2018 (0430) [facility] NAME: SOHAIL THOMPSON Radiology DepartmentPHYS: Lianet Morrow MD [address] : 1990 AGE: 28 SEX: F [place], [place] [address] LOC: F.4672 A PHONE #: [phone] EXAM DATE: 12/15/2018 STATUS: ADM IN FAX #: [phone] RAD NO: Page 3 Signed Report 1
--- NOTE | 2021-01-10 18:09 | RAD REPORT ---
EXAM DESCRIPTION: RAD - Chest Single View - 01/10/2021 5:53 pm CLINICAL HISTORY: Cough;SOB COMPARISON: Chest Single View dated 09/15/2020; Chest Single View dated 04/12/2018; Chest Pa And Lat (2 Views) dated 04/09/2018; CHEST PA AND LAT 2 VIEW dated 08/07/2009 FINDINGS: Lines: None. Lungs: No evidence of edema or pneumonia. Pleural: No significant pleural effusions or pneumothorax. Cardiac: The heart size is within normal limits. Bones: No acute fractures. Other: IMPRESSION: No acute cardiopulmonary disease.
[2021-01-10] MEDS ORDERED: LEVALBUTEROL 1.25 MG/3 ML NEB ONE (19:34)
[2021-01-10] MEDS ORDERED: NA CHLORIDE 0.9% 1,000 ML ONE (19:35)
[2021-01-10] MEDS ORDERED: KETOROLAC 30 MG/ML INJ ONE (19:35)
[2021-01-10] MEDS ORDERED: ALBUTEROL INHALER 60 PUFF/8 GM IH ONE (19:39)
[2021-01-10 19:54] LABS: Absolute Lymphocytes (CBC) 1.6 K/uL (0.7-4.9); Basophils % 0.3 % (0-1.3); Hematocrit 43.9 % (36.0-45.0); Lymphocytes % 15.2 % (15.3-44.8); RBC Red Blood Cell Count 5.03 M/uL (3.86-4.86)
[2021-01-10 20:08] LABS: Potassium 3.4 mmol/L (3.5-5.1)
[2021-01-10] MEDS ORDERED: CASIRIVIMAB/IMDEVIMAB 10 ML VIAL ONE (20:09)
[2021-01-10] MEDS ORDERED: AZITHROMYCIN 250 MG TAB ONE (20:09)
[2021-01-10] MEDS ORDERED: ASPIRIN 81 MG CHEWABLE TABLET ONE (20:09)
[2021-01-10] MEDS ORDERED: FAMOTIDINE 20 MG/2 ML VIAL IV ONE (20:09)
[2021-01-10] MEDS ORDERED: NA CHLORIDE 0.9% 250 ML ONE (20:13)
[2021-01-10] MEDS ORDERED: NA CHLORIDE 0.9% 50 ML ONE (20:19)
[2021-01-10 20:31] LABS: Urine Blood Trace-lysed (Negative); Urine Glucose 2+ (Negative); Urine Protein Negative (Negative); Urine Specific Gravity 1.015 (1.005-1.030)
[2021-01-10 20:43] LABS: Urine Specific Gravity/Preg 1.015 (1.005-1.030)
--- NOTE | 2021-01-10 20:49 | EDPHYS ---
Physician Documentation [facility] Name: Stacy Islas Age: 30 yrs Sex: Female : 1990 Arrival Date: 01/10/2021 Time: 16:10 Bed 7 Private MD: SEBAS Physician Bubba Nolan HPI: 01/10 20:45 This 30 yrs old Female presents to ER via Ambulatory with complaints of ange Shortness Of Breath - covid+, Cough, Chest Pain. 20:45 The patient has shortness of breath at rest, with light activity. Onset: The ange symptoms/episode began/occurred 2 day(s) ago. Duration: The symptoms are continuous, and are steadily getting worse. The patient's shortness of breath is aggravated by coughing, walking, is alleviated by rest. Associated signs and symptoms: Pertinent positives: non-productive cough, fever. Severity of symptoms: At their worst the symptoms were mild in the emergency department the symptoms are unchanged. The patient has not experienced similar symptoms in the past. 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 - Social history:: Smoking status: Patient denies any tobacco usage or history of. ROS: 20:46 Constitutional: Negative for fever, chills, and weight loss, Eyes: Negative for injury, ange pain, redness, and discharge, ENT: Negative for injury, pain, and discharge, Neck: Negative for injury, pain, and swelling, Cardiovascular: Negative for chest pain, palpitations, and edema, Abdomen/GI: Negative for abdominal pain, nausea, vomiting, diarrhea, and constipation, Back: Negative for injury and pain, : Negative for injury, bleeding, discharge, and swelling, MS/Extremity: Negative for injury and deformity, Skin: Negative for injury, rash, and discoloration, Neuro: Negative for headache, weakness, numbness, tingling, and seizure, Psych: Negative for depression, anxiety, suicide ideation, homicidal ideation, and hallucinations, Allergy/Immunology: Negative for hives, rash, and allergies, Endocrine: Negative for neck swelling, polydipsia, polyuria, polyphagia, and marked weight changes, Hematologic/Lymphatic: Negative for swollen nodes, abnormal bleeding, and unusual bruising. 20:46 Respiratory: Positive for cough, shortness of breath, at rest. Exam: 20:46 Constitutional: This is a well developed, well nourished patient who is awake, alert, ange and in no acute distress. Head/Face: Normocephalic, atraumatic. Eyes: Pupils equal round and reactive to light, extra-ocular motions intact. Lids and lashes normal. Conjunctiva and sclera are non-icteric and not injected. Cornea within normal limits. Periorbital areas with no swelling, redness, or edema. ENT: Nares patent. No nasal discharge, no septal abnormalities noted. Tympanic membranes are normal and external auditory canals are clear. Oropharynx with no redness, swelling, or masses, exudates, or evidence of obstruction, uvula midline. Mucous membranes moist. Neck: Trachea midline, no thyromegaly or masses palpated, and no cervical lymphadenopathy. Supple, full range of motion without nuchal rigidity, or vertebral point tenderness. No Meningismus. Chest/axilla: Normal chest wall appearance and motion. Nontender with no deformity. No lesions are appreciated. Cardiovascular: Regular rate and rhythm with a normal S1 and S2. No gallops, murmurs, or rubs. Normal PMI, no JVD. No pulse deficits. Abdomen/GI: Soft, non-tender, with normal bowel sounds. No distension or tympany. No guarding or rebound. No evidence of tenderness throughout. Back: No spinal tenderness. No costovertebral tenderness. Full range of motion. Skin: Warm, dry with normal turgor. Normal color with no rashes, no lesions, and no evidence of cellulitis. MS/ Extremity: Pulses equal, no cyanosis. Neurovascular intact. Full, normal range of motion. Neuro: Awake and alert, GCS 15, oriented to person, place, time, and situation. Cranial nerves II-XII grossly intact. Motor strength 5/5 in all extremities. Sensory grossly intact. Cerebellar exam normal. Normal gait. Psych: Awake, alert, with orientation to person, place and time. Behavior, mood, and affect are within normal limits. 20:46 Respiratory: mild respiratory distress is noted, Respirations: no acute changes, Breath sounds: are clear throughout, no bronchial sounds, no decreased breath sounds, no rales, rhonchi, no stridor, no wheezing, Respiratory rate: 20 Vital Signs: 17:09 BP 108 / 67; Pulse 88; Resp 17; Temp 98.6; Pulse Ox 99% on R/A; Weight 102.51 kg; jl7 Height 5 ft. 3 in. (160.02 cm); Pain 9/10; 20:27 BP 100 / 67; Pulse 91; Resp 20; Temp 98.2; Pulse Ox 98% on R/A; cc4 17:09 Body Mass Index 40.03 (102.51 kg, 160.02 cm) jl7 MDM: 19:45 Patient medically screened. ange 22:13 Differential diagnosis: Anemia asthma, Bronchitis Chronic Obstructive Pulmonary Disease ange bronchitis, flu, URI, pneumonia, pulmonary edema, Pulmonary Embolism reactive airway disease. Antibiotic administration: The patient is discharged and will get outpatient antibiotics, Zithromax. The patient's Wells Deep Vein Thrombosis Score was calculated as follows: Total Score: 0-2 Pts- Low Risk. The patient's pulmonary embolism risk score was calculated as follows: Total Score: 0-2 points. This patient was found to be at low risk for a pulmonary embolism by using the Well's assessment criteria. Immunization status:. Data reviewed: vital signs, nurses notes, lab test result(s), radiologic studies, plain films. Data interpreted: dianetic counselor: rate is 91 beats/min, rhythm is regular, Pulse oximetry: on room air is 98 %. Test interpretation: by ED physician or midlevel provider: ECG, plain radiologic studies. 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 01/10 18:41 Order name: CBC with Diff; Complete Time: 22:13 kdr 01/10 18:41 Order name: Chem 7; Complete Time: 22:13 kdr 01/10 19:59 Order name: CRP; Complete Time: 22:13 ange 01/10 19:59 Order name: Ferritin; Complete Time: 22:13 ange 01/10 20:31 Order name: Urine Dipstick-Ancillary; Complete Time: 22:13 EDMS 01/10 20:41 Order name: Urine --Ancillary (enter results); Complete Time: 22:13 lp1 01/10 17:35 Order name: CXR XRAY; Complete Time: 18:43 iw 01/10 22:31 Order name: Glucose, Ancillary Testing EDMS 01/10 23:15 Order name: Glucose, Ancillary Testing EDMS 01/10 19:58 Order name: Urine Dipstick-Ancillary (obtain specimen); Complete Time: 20:39 [facility] 01/10 19:58 Order name: Urine Test (obtain specimen); Complete Time: 20:39 [facility] Administered Medications: 19:15 Drug: Ketorolac 15 mg Route: IVP; Site: right antecubital; cc4 20:27 Follow up: Response: No adverse reaction; Pain is decreased cc4 19:15 Drug: NS 0.9% 1000 ml Route: IV; Rate: 1 bolus; Site: right antecubital; cc4 20:27 Follow up: IV Status: Completed infusion; IV Intake: 1000ml cc4 19:35 Drug: Albuterol HFA Inhaler 2 puffs Route: Inhalation; cc4 20:20 Follow up: Response: No adverse reaction cc4 20:04 CANCELLED (Physician Discretion): Xopenex (levalbuterol) (3) 1.25 mg Inhalation once df1 20:20 Drug: Pepcid (famotidine) 40 mg Route: IVP; Site: right antecubital; cc4 23:00 Follow up: Response: No adverse reaction cc4 20:20 Drug: Zithromax (azithromycin) 500 mg Route: PO; cc4 23:00 Follow up: Response: No adverse reaction cc4 23:00 Follow up: Response: No adverse reaction cc4 20:20 Drug: Aspirin 162 mg Route: PO; cc4 23:00 Follow up: Response: No adverse reaction cc4 20:27 Drug: Casirivimab-Imdevimab Dose Pack 120 mg/mL-120 mg/mL (EUA) 1 vials Route: IV; cc4 Rate: per protocol; Site: right antecubital; 21:30 Follow up: Response: No adverse reaction; IV Status: Completed infusion; IV Intake: cc4 250ml 22:23 Drug: Insulin Regular Human 8 units {Co-Signature: df1 (Megan Brigitteanthony).} Route: IVP; cc4 Site: right antecubital; 23:00 Follow up: Response: No adverse reaction; Blood sugar is lowered cc4 22:23 Drug: Potassium Effervescent Tablet 50 mEq Route: PO; cc4 23:00 Follow up: Response: No adverse reaction cc4 Disposition Summary: 01/10/21 23:04 Discharge Ordered Location: Home(01/10/21 23:04) ange Problem: new(01/10/21 23:04) ange Symptoms: have improved(01/10/21 23:04) ange Condition: Stable(01/10/21 23:04) ange Diagnosis - Coronavirus infection, unspecified(01/10/21 23:04) ange - Type 1 diabetes mellitus with hyperglycemia(01/10/21 23:04) ange - Acute upper respiratory infection, unspecified(01/10/21 23:04) ange - Fever, unspecified(01/10/21 23:04) ange Followup: ange - With: Private Physician - When: 2 - 3 days - Reason: Recheck today's complaints, Continuance of care, Re-evaluation by your physician Followup: ange - With: - When: 2 - 3 days - Reason: Recheck today's complaints, Re-evaluation by your physician Discharge Instructions: - Discharge Summary Sheet ange - Type 1 Diabetes Mellitus, Diagnosis, Adult ange - Diabetes Mellitus and Sick Day Management ange - Fever, Adult ange - Hyperglycemia aneg - Upper Respiratory Infection, Adult ange - Cool Mist Vaporizer ange - Upper Respiratory Infection, Adult, [id number] ange - Aspirin and Your Heart ange - Cough, Adult ange - COVID-19 ange Forms: - Medication Reconciliation Form ange - Thank You Letter ange - Antibiotic Education ange - Prescription Opioid Use ange Prescriptions: - albuterol sulfate 90 mcg/actuation Inhalation HFA aerosol inhaler - inhale 2 puff by INHALATION route every 4-6 hours; 1 Pump; Refills: 0, Product ange Selection Permitted - ivermectin 3 mg Oral tablet - take 4 tablet by ORAL route once daily take 12 mg po daily on days 1,3 and 5; ange 12 tablet; Refills: 0, Product Selection Permitted - Pepcid 20 mg Oral Tablet - take 1 tablet by ORAL route every 12 hours for 30 days; 60 tablet; Refills: 0, [facility] Product Selection Permitted - Singulair 10 mg Oral Tablet - take 1 tablet by ORAL route At bedtime; 30 tablet; Refills: 0, Product ange Selection Permitted - Zithromax 500 mg Oral Tablet - take 1 tablet by ORAL route once daily for 4 days; 4 tablet; Refills: 0, [facility] Product Selection Permitted Signatures: Dispatcher [employer] EDBubba Calderon MD MD cha Rittger, Kevin, MD MD kdr Leal, Jahala RN RN jl7 Merry Molina RN RN cc4 Noel, Megan df1 Megan Cohen df1 Corrections: (The following items were deleted from the chart) 20:04 18:40 Xopenex (levalbuterol) (3) 1.25 mg Inhalation once ordered. kdr df1 22:13 20:49 Home [facility] 22:13 20:49 new [facility] 22: 20:49 have improved [facility] 22: 20:49 Stable [facility] 22: 20:49 Type 1 diabetes mellitus with hyperglycemia [facility] 22: 20:49 Coronavirus infection, unspecified [facility] 22:13 20:49 Fever, unspecified [facility] 22:13 20:49 Acute upper respiratory infection, unspecified [facility]
--- NOTE | 2021-01-10 20:49 | ER ---
Nurse's Notes [facility] Name: Stacy Islas Age: 30 yrs Sex: Female : 1990 Arrival Date: 01/10/2021 Time: 16:10 Bed 7 Private MD: Diagnosis: Coronavirus infection, unspecified;Type 1 diabetes mellitus with hyperglycemia;Acute upper respiratory infection, unspecified;Fever, unspecified Presentation: 01/10 17:09 Chief complaint: Patient states: Tested positive for COVID yesterday at [facility], reports jl7 continued SOB and cough, chest soreness with coughing since yesterday. Coronavirus screen: cough unrelated to allergies, shortness of breath, Client presents with at least one sign or symptom that may indicate coronavirus-19. Standard/surgical mask placed on the client. Provider contacted for isolation considerations. Ebola Screen: No symptoms or risks identified at this time. Initial Sepsis Screen: Does the patient meet any 2 criteria? No. Patient's initial sepsis screen is negative. Does the patient have a suspected source of infection? No. Patient's initial sepsis screen is negative. Risk Assessment: Do you want to hurt yourself or someone else? Patient reports no desire to harm self or others. Onset of symptoms was January 09, 2021. Care prior to arrival: None. 17:09 Method Of Arrival: Ambulatory jl7 17:09 Acuity: VENTURA 3 jl7 Triage Assessment: 17:11 General: Appears in no apparent distress. uncomfortable, Behavior is calm, cooperative, jl7 appropriate for age. Pain: Complains of pain in chest Pain does not radiate. Pain currently is 9 out of 10 on a pain scale. Quality of pain is described as "SORENESS FROM COUGHING". Neuro: Level of Consciousness is awake, alert, obeys commands, Oriented to person, place, time, situation. Cardiovascular: Patient's skin is warm and dry. Respiratory: Reports shortness of breath at rest cough that is dry, persistent Onset: The symptoms/episode began/occurred yesterday, the patient has mild shortness of breath. Derm: Skin is pink, warm \\T\\ dry. 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 - Social history:: Smoking status: Patient denies any tobacco usage or history of. Screenin:15 Abuse screen: Denies threats or abuse. Nutritional screening: No deficits noted. cc4 Tuberculosis screening: No symptoms or risk factors identified. Fall Risk None identified. Assessment: 19:15 Cardiovascular: No deficits noted. Heart tones S1 S2 Capillary refill < 3 seconds cc4 Patient's skin is warm and dry. Respiratory: Airway is patent Respiratory effort is even, unlabored, Respiratory pattern is regular, symmetrical, Breath sounds are diminished bilaterally. bases; occasional clear productive cough noted intermittently. 19:15 Cardiovascular: Reports c/o soreness of chest \\T\\ generalized weakness. Rhythm is sinus cc4 rhythm. 19:15 Reassessment: # 18 g angiocath inserted right AC x 1 attempt with no difficulty \\T\\ cc4 converted to saline lock, almita well with blood drawn \\T\\ sent to lab; IV NS hung to saline lock \\T\\ infusing \\T\\ bolus rate with no s/sx's of infiltration. 19:35 Reassessment: Albuterol inhaler give with instructions on use with return cc4 den=monstration, almita. well. 20:20 Reassessment: Medications give as ordered; dozing intermittently; VSS. cc4 Vital Signs: 17:09 BP 108 / 67; Pulse 88; Resp 17; Temp 98.6; Pulse Ox 99% on R/A; Weight 102.51 kg; 7 Height 5 ft. 3 in. (160.02 cm); Pain 9/10; 20:27 BP 100 / 67; Pulse 91; Resp 20; Temp 98.2; Pulse Ox 98% on R/A; cc4 17:09 Body Mass Index 40.03 (102.51 kg, 160.02 cm) [facility] Vitals: 19:15 Cardiac Rhythm Assessment Regular Sinus rhythm. cc4 ED Course: 16:10 Patient arrived in ED. as 17:11 Triage completed. jl7 17:11 Arm band placed on right wrist. Patient placed in waiting room, Patient notified of jl7 wait time. 17:53 CXR XRAY In Process Unspecified. EDMS 18:17 Rashad Cabrera MD is Attending Physician. kdr 18:19 Dilan Abdullahi, RN is Primary Nurse. bp 19:15 Patient has correct armband on for positive identification. Bed in low position. Call cc4 light in reach. Side rails up X 1. pvc monitor on. Pulse ox on. NIBP on. 19:28 Chem 7 Sent. bp 19:28 CBC with Diff Sent. bp 19:45 Attending Physician role handed off by Rashad Cabrera MD ange 19:45 Bubba Nolan MD is Attending Physician. ange 20:03 Ferritin Sent. df1 20:03 CRP Sent. df1 20:49 Dewayne Troy MD is Referral Physician. ange 23:00 No provider procedures requiring assistance completed. cc4 23:00 IV discontinued, intact, bleeding controlled, No redness/swelling at site. Pressure cc4 dressing applied. 23:04 Dewayne Troy MD is Referral Physician. ange Administered Medications: 19:15 Drug: Ketorolac 15 mg Route: IVP; Site: right antecubital; cc4 20:27 Follow up: Response: No adverse reaction; Pain is decreased cc4 19:15 Drug: NS 0.9% 1000 ml Route: IV; Rate: 1 bolus; Site: right antecubital; cc4 20:27 Follow up: IV Status: Completed infusion; IV Intake: 1000ml cc4 19:35 Drug: Albuterol HFA Inhaler 2 puffs Route: Inhalation; cc4 20:20 Follow up: Response: No adverse reaction cc4 20:04 CANCELLED (Physician Discretion): Xopenex (levalbuterol) (3) 1.25 mg Inhalation once df1 20:20 Drug: Pepcid (famotidine) 40 mg Route: IVP; Site: right antecubital; cc4 23:00 Follow up: Response: No adverse reaction cc4 20:20 Drug: Zithromax (azithromycin) 500 mg Route: PO; cc4 23:00 Follow up: Response: No adverse reaction cc4 23:00 Follow up: Response: No adverse reaction cc4 20:20 Drug: Aspirin 162 mg Route: PO; cc4 23:00 Follow up: Response: No adverse reaction cc4 20:27 Drug: Casirivimab-Imdevimab Dose Pack 120 mg/mL-120 mg/mL (EUA) 1 vials Route: IV; cc4 Rate: per protocol; Site: right antecubital; 21:30 Follow up: Response: No adverse reaction; IV Status: Completed infusion; IV Intake: cc4 250ml 22:23 Drug: Insulin Regular Human 8 units {Co-Signature: df1 (Megan Cohen).} Route: IVP; cc4 Site: right antecubital; 23:00 Follow up: Response: No adverse reaction; Blood sugar is lowered cc4 22:23 Drug: Potassium Effervescent Tablet 50 mEq Route: PO; cc4 23:00 Follow up: Response: No adverse reaction cc4 Intake: 20:27 IV: 1000ml; Total: 1000ml. cc4 21:30 IV: 250ml; Total: 1250ml. cc4 Outcome: 20:49 Discharge ordered by . ange 23:00 Discharged to home ambulatory, with . cc4 23:00 Condition: stable 23:00 Discharge instructions given to patient, Instructed on discharge instructions, follow up and referral plans. Demonstrated understanding of instructions, follow-up care, medications, Prescriptions given X x5 23:04 Discharge ordered by MD. [facility] 23:40 Patient left the ED. cc4 Signatures: Dispatcher [employer] Bubba Galarza MD MD cha Rittger, Kevin, MD MD kdr Martinez, Amelia as Leal, Jahala, Dilan Nunn RN, RN RN bp Cooper, Christie, RN RN cc4 Furanthony, Megan df1 Megan Cohen df1
[2021-01-10 22:02] LABS: C-Reactive Protein 86.4 mg/L (<3.00); Ferritin 211.4 ng/mL (8-388)
[2021-01-10] MEDS ORDERED: INSULIN -REGULAR HUMAN 50 UNIT/0.5 ML ML ONE (22:19)
[2021-01-10] MEDS ORDERED: POTASSIUM 25 MEQ EFFERV TAB ONE (22:20)
[2021-01-10 23:53] VITALS: BP 100/67; TEMP 98.2; O2SAT 98
== END 2021-01-10 23:40 | disposition home or self-care (01) ==
LOC: ER 16:07
DX: U07.1 COVID-19 (principal); E10.65 Type 1 diabetes mellitus with hyperglycemia; J06.9 Acute upper respiratory infection, unspecified; Z79.4 Long term (current) use of insulin; Z88.8 Allergy status to other drugs, medicaments and biological substances
CPT/HCPCS: 96365; 96361; 85025; 80048; 36415; 81025; 82947 ×2; 81003; 82728; 86140; 71045; 96375; 99285; J7050; J7030; M0243

== ENCOUNTER 2021-04-24 08:07 | Emergency (ER) | payer OTHER ==
--- OUTSIDE RECORDS SUMMARY | 2021-04-24 08:11 | XMS REPORT | Continuity of Care Document ---
:1990 Author Organization [facility] t Address [address] [place] [address] Care Team Providers Name Role Phone Eleanor SALGADO Primary Care Physician Unavailable Shelley Roceh Attending Clinician Unavailable DANIEL Attending Clinician Unavailable Richard CORONEL Attending Clinician RICHARD Attending Clinician Unavailable Eleanor Salgado MD Attending Clinician Payers Payer Name Policy Type Policy Number Effective Date Expiration Date [facility] [id number] 2015 HEALTH 00:00:00 Problems Condition Condition Condition Status Onset Resolution Last Treating Co mments Source Name Details Category Date Date Treatment Clinician Date Pain of Pain of Disease Active Univers left hand left hand 2-04 ity of 00:00: [place] [address] Medical Branch Folliculit Folliculit Disease Active U nivers is is 2-04 ity of 00:00: [place] 00 Medical Branch NAFLD NAFLD Disease Active Univers (nonalcoho (nonalcoho 8 [place] of [place] fatty [place] fatty [place] liver liver 00 Medical disease) disease) Branch Metabolic Metabolic Disease Active Uni vers syndrome syndrome 824 ity of 00:00: [place] 00 Medical Branch Type 2 Type 2 Disease Active Overview: Univer s diabetes diabetes 8 Formattin ity of mellitus mellitus 00:00: g [...] ovarian c ovarian [place] syndrome) syndrome) [facility] Allergies, Adverse Reactions, Alerts Allergy Allergy Status Severity Reaction(s) Onset Inactive Treating Comm ents Source Name Type Date Date Clinician Penicill DA Active U 2018-02 [facility] ins 02-14 00:[facility]: [address] tazobact DA Active U 2018-02 [facility] am 02-14 00:00: [address] piperaci DA Active U 2018-02 [facility] llin 02-14 00:00: [address] PIPERACI DRUG Active High Anaphylaxis Uni vers LLIN-CLARK 8-21 ity of OBACTAM 00:00: [place] 00 Medical Branch Piperaci Propensi Active Anaphylaxis U nivers llin-Clark ty to 8-21 ity of obactam adverse 00:00: [place] reaction 00 Medical s Branch Zosyn Adverse Active shortness of [facility] Reaction breath [facility] Social History Social Habit Start Date Stop Date Quantity Comments Source History SDOH University o f Alcohol Std [place] [facility] Drinks Branch History SDMO University o f Alcohol Binge [place] [facility] Branch Exposure to Not sure University of SARS-CoV-2 [place] [facility] (event) Branch History SDMO University o f Alcohol Comment [place] [facility] ical [facility] Alcohol intake 2021-03-15 2021-03-15 Lifetime University of 00:00:00 00:00:00 non-drinker [place] [facility] (finding) [place] Tobacco use and 2018-08-16 2018-08-16 Never used Universit y of exposure 00:00:00 00:00:00 [place] [facility] History [facility] 2018-08-16 2018-08-16 1 University o f Alcohol Frequency 00:00:00 00:00:00 [facility] Education 2018-08-16 2018-08-16 13 University of 00:00:00 00:00:00 [place] [facility] History [facility] 2018-08-16 2018-08-16 3 University o f Financial 00:00:00 00:00:00 [place] [facility] Food 2018-08-16 2018-08-16 1 Univers ity of Worry 00:00:00 00:00:00 [place] [facility] History [facility] Food 2018-08-16 2018-08-16 2 Univers ity of Scarcity 00:00:00 00:00:00 [place] [facility] History [facility] 2018-08-16 2018-08-16 2 University o f Transport Med 00:00:00 00:00:00 [place] [facility] History [facility] 2018-08-16 2018-08-16 2 [place] o f Transport Non-Med 00:00:00 00:00:00 [facility] Sex Ass[birth year] At [birth year] Universit y of 00:00:00 00:00:00 [facility] Smoking Status Start Date Stop Date Source Never smoker [facility] Medications Ordered Filled Start Stop Current Ordering Indication Dosage Frequency Signature Comments Components Source Medication Medication Date Date Medication? Clinician (SIG) Name Name miconazole Yes [id number] 1{appli Insert 1 Univers (MICONAZOLE 2-24 cator} Applicator ity of -7) 2 % 00:00: into [place] vaginal 00 vagina at Medical cream bedtime. Branch miconazole Yes [id number] 1{appli Insert 1 Univers (MICONAZOLE 2-24 cator} Applicator ity of -7) 2 % 00:00: into [place] vaginal 00 vagina at Medical cream bedtime. Branch miconazole Yes [id number] 100mg Insert 1 Univers 100 mg 2-23 Suppositor ity of vaginal 00:00: y into [place] suppository 00 vagina at [facility] bedtime. Branch miconazole Yes [id number] 100mg Insert 1 Univers 100 mg 2-23 Suppositor ity of vaginal 00:00: y into [place] suppository 00 vagina at [facility] bedtime. Branch fluconazole 2021- Yes [id number] 150mg Take 1 Univers 150 mg 2-23 02-24 tablet by ity of tablet 00:00: 05:59 mouth once [place] 00 :[place] now for 1 Medical dose. Branch fluconazole 2021- Yes [id number] 150mg Take 1 Univers 150 mg 2-23 -24 tablet by ity of tablet 00:00: 05:59 mouth once [place] 00 :[place] now for 1 Medical dose. Branch miconazole 2021- No [id number] 100mg Insert 1 Univers 100 mg 2-23 -24 Suppositor ity of vaginal 00:00: 00:00 y into [place] suppository 00 :00 vagina at [facility] bedtime. [place] Blood-Gluco Yes [id number] Use as Univers se Meter 2-07 directed ity of (FREESTYLE 00:00: [place] LITE METER) 00 Medical Kit [place] blood sugar Yes [id number] Test blood Univers diagnostic 2-07 glucose ity of (FREESTYLE 00:00: [place] 4 [place] LITE 00 times Medical STRIPS) daily and Branch strip as needed to monitor glucose levels. Blood-Gluco Yes [id number] Use as Univers se Meter 2-07 directed ity of (FREESTYLE 00:00: [place] LITE METER) 00 Medical Kit [place] blood sugar Yes [id number] Test blood Univers diagnostic 2-07 glucose ity of (FREESTYLE 00:00: level 4 [place] LITE 00 times Medical STRIPS) daily and Branch strip as needed to monitor glucose levels. Blood-Gluco Yes [id number] Use as Univers se Meter 2-07 directed ity of (FREESTYLE 00:00: [place] LITE METER) 00 Medical Kit [place] blood sugar Yes [id number] Test blood Univers diagnostic 2-07 glucose ity of (FREESTYLE 00:00: level 4 [place] LITE 00 times Medical STRIPS) daily and Branch strip as needed to monitor glucose levels. Blood-Gluco 0 Yes [id number] Use as Univers se Meter 2-07 directed ity of (FREESTYLE 00:00: [place] LITE METER) 00 Medical Kit Branch blood sugar 0 Yes [id number] Test blood Univers diagnostic 2-07 glucose ity of (FREESTYLE 00:00: level 4 [place] LITE 00 times Medical STRIPS) daily and Branch strip as needed to monitor glucose levels. semaglutide 0 Yes [id number] .5mg inject 0.5 Univers (OZEMPIC) 1-19 mg under ity of 0.25 mg or 00:00: the skin Ahmet as 0.5 mg(2 00 weekly. Medical mg/1.5 mL) Inject 0.5 Bra nch PnIj mg weekly Blood-Gluco Yes Use as Univ ers se Meter 1-19 directed ity of (ONETOUCH 00:00: [place] VERIO 00 Medical REFLECT Branch START) Kit blood sugar Yes [id number] Use 4 U nivers diagnostic 1-19 times ity of (ONETOUCH 00:00: daily. Dx [place] as VERIO TEST 00 E11.8 Medical STRIPS) Branch strip semaglutide 0 Yes [id number] .5mg inject 0.5 Univers (OZEMPIC) 1-19 mg under ity of 0.25 mg or 00:00: the skin [place] as 0.5 mg(2 00 weekly. Medical mg/1.5 mL) Inject 0.5 Bra nch PnIj mg weekly Blood-Gluco Yes Use as Univ ers se Meter 1-19 directed ity of (ONETOUCH 00:00: [place] VERIO 00 Medical REFLECT Branch START) Kit blood sugar 0 Yes [id number] Use 4 U nivers diagnostic 1-19 times ity of (ONETOUCH 00:00: daily. Dx [place] as VERIO TEST 00 E11.8 Medical STRIPS) Branch strip semaglutide 0 Yes [id number] .5mg inject 0.5 Univers (OZEMPIC) 1-19 mg under ity of 0.25 mg or 00:00: the skin [place] as 0.5 mg(2 00 weekly. Medical mg/1.5 mL) Inject 0.5 Bra nch PnIj mg weekly Blood-Gluco 2021-0 Yes Use as Univ ers se Meter 1-19 directed ity of (ONETOUCH 00:00: [place] VERIO 00 Medical REFLECT Branch START) Kit blood sugar Yes [id number] Use 4 U nivers diagnostic 1-19 times ity of (ONETOUCH 00:00: daily. Dx [place] as VERIO TEST 00 E11.8 Medical STRIPS) Branch strip semaglutide Yes [id number] .5mg inject 0.5 Univers (OZEMPIC) 1-19 mg under ity of 0.25 mg or 00:00: the skin [place] as 0.5 mg(2 00 weekly. Medical mg/1.5 mL) Inject 0.5 Bra nch PnIj mg weekly Blood-Gluco Yes Use as Univ ers se Meter 1-19 directed ity of (ONETOUCH 00:00: [place] VERIO 00 Medical REFLECT Branch START) Kit blood sugar Yes [id number] Use 4 U nivers diagnostic 1-19 times ity of (ONETOUCH 00:00: daily. Dx [place] as VERIO TEST 00 E11.8 Medical STRIPS) Branch strip albuterol 2020-02 Yes [id number] 2{puff} Inhale 2 Univers 90 2-13 Puffs ity of mcg/actuati 00:00: every 4 [place] as on inhaler 00 (four) Medical hours as Branch needed for Wheezing or Shortness of Breath. albuterol 2020-02 Yes [id number] 2{puff} Inhale 2 Univers 90 2-13 Puffs ity of mcg/actuati 00:00: every 4 [place] as on inhaler 00 (four) Medical hours as Branch needed for Wheezing or Shortness of Breath. albuterol 2020-02 Yes [id number] 2{puff} Inhale 2 Univers 90 2-13 Puffs ity of mcg/actuati 00:00: every 4 [place] as on inhaler 00 (four) Medical hours as Branch needed for Wheezing or Shortness of Breath. albuterol 2020-02 Yes [id number] 2{puff} Inhale 2 Univers 90 2-13 Puffs ity of mcg/actuati 00:00: every 4 [place] as on inhaler 00 (four) Medical hours as Branch needed for Wheezing or Shortness of Breath. bromphenira 2020-02 Yes [id number] 5mL Take 5 mL Univers mine-pseudo 2-01 by mouth 4 it y of ephedrine-D 00:00: (four) [place] M (BROMFED 00 times Medical DM) 2-30-10 daily as Bran ch mg/5 mL needed for syrup Cough. benzonatate 2020-02 Yes [id number] 100mg Take 1 Univers 100 mg 2-01 capsule by ity of capsule 00:00: mouth 3 [place] 00 (three) Medical times Branch daily as needed for Cough. bromphenira 2020-02 Yes [id number] 5mL Take 5 mL Univers mine-pseudo 2-01 by mouth 4 it y of ephedrine-D 00:00: (four) [place] M (BROMFED 00 times Medical DM) 2-30-10 daily as Bran ch mg/5 mL needed for syrup Cough. benzonatate 2020-02 Yes [id number] 100mg Take 1 Univers 100 mg 2-01 capsule by ity of capsule 00:00: mouth 3 (three) Medical times Branch daily as needed for Cough. bromphenira 2020-02 Yes [id number] 5mL Take 5 mL Univers mine-pseudo 2-01 by mouth 4 it y of ephedrine-D 00:00: (four) [place] M (BROMFED 00 times Medical DM) 2-30-10 daily as Bran ch mg/5 mL needed for syrup Cough. benzonatate 2020-02 Yes [id number] 100mg Take 1 Univers 100 mg 2-01 capsule by ity of capsule 00:00: mouth 3 00 (three) Medical times Branch daily as needed for Cough. bromphenira 2020-02 Yes [id number] 5mL Take 5 mL Univers mine-pseudo 2-01 by mouth 4 it y of ephedrine-D 00:00: (four) [place] M (BROMFED 00 times Medical DM) 2-30-10 daily as Bran ch mg/5 mL needed for syrup Cough. benzonatate 2020-02 Yes [id number] 100mg Take 1 Univers 100 mg 2-01 capsule by ity of capsule 00:00: mouth 3 [place] 00 (three) Medical times Branch daily as needed for Cough. BD INSULIN Yes Univers SYRINGE 9-29 ity of ULTRA-FINE 00:00: [place] 1 mL 31 00 Medical gauge x Branch 16 Syrg BD INSULIN Yes Univers SYRINGE 9-29 ity of ULTRA-FINE 00:00: [place] 1 mL Medical gauge x Branch 5/16 Syrg BD INSULIN 0 Yes Univers SYRINGE 9-29 ity of ULTRA-FINE 00:00: [place] 1 mL Medical gauge x Branch 5/16 Syrg BD INSULIN 0 Yes Univers SYRINGE 9-29 ity of ULTRA-FINE 00:00: [place] 1 mL Medical gauge x Branch 5/16 Syrg valACYclovi Yes [id number] 500mg Take 1 Univers r (VALTREX) 9-20 tablet by ity of 500 mg 00:00: mouth 2 [place] tablet 00 (two) Medical times Branch daily. valACYclovi Yes [id number] 500mg Take 1 Univers r (VALTREX) 9-20 tablet by ity of 500 mg 00:00: mouth 2 [place] tablet 00 (two) Medical times Branch daily. valACYclovi Yes [id number] 500mg Take 1 Univers r (VALTREX) 9-20 tablet by ity of 500 mg 00:00: mouth 2 [place] tablet 00 (two) Medical times Branch daily. valACYclovi Yes [id number] 500mg Take 1 Univers r (VALTREX) 9-20 tablet by ity of 500 mg 00:00: mouth 2 [place] tablet 00 (two) Medical times Branch daily. lisinopriL Yes [id number] 1.25mg Take 0.5 Univers 2.5 mg 8-07 tablets by ity of tablet 00:00: mouth [place] 00 daily. Medical Branch lisinopriL Yes [id number] 1.25mg Take 0.5 Univers 2.5 mg 8-07 tablets by ity of tablet 00:00: mouth [place] 00 daily. Medical Branch lisinopriL Yes [id number] 1.25mg Take 0.5 Univers 2.5 mg 8-07 tablets by ity of tablet 00:00: mouth [place] 00 daily. Medical Branch lisinopriL Yes [id number] 1.25mg Take 0.5 Univers 2.5 mg 8-07 tablets by ity of tablet 00:00: mouth [place] 00 daily. Medical Branch topiramate Yes [id number] 25mg Take 1 Univers 25 mg 8-06 tablet by ity of tablet 00:00: mouth 2 [place] 00 (two) Medical times Branch daily. After one week may take 2 PO BID. topiramate 0 Yes [id number] 25mg Take 1 Univers 25 mg 8-06 tablet by ity of tablet 00:00: mouth 2 [place] 00 (two) Medical times Branch daily. After one week may take 2 PO BID. topiramate 2020-0 Yes [id number] 25mg Take 1 Univers 25 mg 8-06 tablet by ity of tablet 00:00: mouth 2 [place] 00 (two) Medical times Branch daily. After one week may take 2 PO BID. topiramate 2020-0 Yes [id number] 25mg Take 1 Univers 25 mg 8-06 tablet by ity of tablet 00:00: mouth 2 00 (two) Medical times Branch daily. After one week may take 2 PO BID. insulin Yes [id number] 1{each} 1 Each 4 Univers syr/ndl 7-29 (four) ity of U100 half 00:00: times [place] melvin 0.5 mL 00 daily. Use Me dical 31 gauge x with Branch 5/16" Syrg insulin 4 times daily. Dx E11.8 insulin Yes [id number] 1{each} 1 Each 4 Univers syr/ndl 7-29 (four) ity of U100 half 00:00: times [place] melvin 0.5 mL 00 daily. Use Me dical 31 gauge x with Branch 5/16" Syrg insulin 4 times daily. Dx E11.8 insulin Yes [id number] 1{each} 1 Each 4 Univers syr/ndl 7-29 (four) ity of U100 half 00:00: times [place] melvin 0.5 mL 00 daily. Use Me dical 31 gauge x with Branch 5/16" Syrg insulin 4 times daily. Dx E11.8 insulin Yes [id number] 1{each} 1 Each 4 Univers syr/ndl 7-29 (four) ity of U100 half 00:00: times [place] melvin 0.5 mL 00 daily. Use Me dical 31 gauge x with Branch 5/16" Syrg insulin 4 times daily. Dx E11.8 lancets Yes [id number] Use 4 Unive rs (ONE TOUCH 7-09 times ity of DELICA) 33 00:00: daily. Dx [place] gauge [facility] 00 E11.8 Medical Branch insulin 2020-0 Yes [id number] 15U inject 15 U nivers aspart 7-09 Units ity of RAPID 00:00: under the [place] (NOVOLOG 00 skin 3 Medical U-100 (three) Branch INSULIN times ASPART) 100 daily unit/mL before injection meals. insulin 0 Yes 50U inject 50 Unive rs glargine 7-09 Units ity of (LANTUS 00:00: under the [place] U-100 00 skin. Medical INSULIN) Branch 100 unit/mL injection lancets 2020-0 Yes [id number] Use 4 Unive rs (ONE TOUCH 7-09 times ity of DELICA) 33 00:00: daily. Dx [place] gauge [facility] 00 E11.8 Medical Branch insulin 2020-0 Yes [id number] 15U inject 15 U nivers aspart 7-09 Units ity of RAPID 00:00: under the [place] (NOVOLOG 00 skin 3 Medical U-100 (three) Branch INSULIN times ASPART) 100 daily unit/mL before injection meals. insulin 0 Yes 50U inject 50 Unive rs glargine 7-09 Units ity of (LANTUS 00:00: under the [place] U-100 00 skin. Medical INSULIN) Branch 100 unit/mL injection lancets 0 Yes [id number] Use 4 Unive rs (ONE TOUCH 7-09 times ity of DELICA) 33 00:00: daily. Dx [place] gauge [facility] E11.8 Medical Branch insulin 2020-0 Yes [id number] 15U inject 15 U nivers aspart 7-09 Units ity of RAPID 00:00: under the [place] (NOVOLOG 00 skin 3 Medical U-100 (three) Branch INSULIN times ASPART) 100 daily unit/mL before injection meals. insulin 0 Yes 50U inject 50 Unive rs glargine 7-09 Units ity of (LANTUS 00:00: under the [place] U-100 00 skin. Medical INSULIN) Branch 100 unit/mL injection lancets 2020-0 Yes [id number] Use 4 Unive rs (ONE TOUCH 7-09 times ity of DELICA) 33 00:00: daily. Dx [place] gauge [facility] 00 E11.8 Medical Branch insulin Yes [id number] 15U inject 15 U nivers aspart 7-09 Units ity of RAPID 00:00: under the [place] (NOVOLOG 00 skin 3 Medical U-100 (three) Branch INSULIN times ASPART) 100 daily unit/mL before injection meals. insulin Yes 50U inject 50 Unive rs glargine 7-09 Units ity of (LANTUS 00:00: under the [place] U-100 00 skin. Medical INSULIN) Branch 100 unit/mL injection Insulin Yes [id number] Use as Univ ers [place], 4-09 directed ity of Disposable, 00:00: [place] (PEN 00 Medical NEEDLE) 31 Branch gauge x 5/16" Ndle Insulin Yes [id number] Use as Univ ers [place], 4-09 directed ity of Disposable, 00:00: [place] (PEN 00 Medical NEEDLE) 31 Branch gauge x 5/16" Ndle Insulin Yes [id number] Use as Univ ers [place], - directed ity of Disposable, 00:00: [place] (PEN 00 Medical NEEDLE) 31 Branch gauge x 5/16" Ndle Insulin Yes [id number] Use as Univ ers [place], -09 directed ity of Disposable, 00:00: [place] (PEN 00 Medical NEEDLE) 31 Branch gauge x 5/16" Ndle Norethin Norethin 2019-0 Yes Na Roche [address] [facility]13 [facility] 00:[facility]: Mem [facility]ria 00 l [facility] Lancets Lancets 2018-0 Yes Na Roche one [facility] Super Thin Super Thin 4-17 Myriam es - 00:00: Memoria 00 l [facility] Lisinopril Lisinopril Yes Na Roche [address] [facility] Loryna Loryna Yes Na Roche [address] [facility] Metformin Metformin Yes Na Roche [address] [address] HCl HCl with meals [facility] Immunizations Ordered Filled Immunization Date Status Comments [facility] e Immunization Name Name [facility] 2013-02-09 Completed [facility] 00[facility]00:00 [facility] [place] 2013-02-09 Completed [facility] 00:00:00 [facility] TDAP 2013-02-09 Completed University 00:00:00 [facility] TDAP 2013-02-09 Completed [facility] 00:00:00 [facility] Vital Signs Vital Name Observation Time Observation Value Comments Source Systolic blood 2021-04-03 22:08:00 121 mm[Hg] Univer sity of pressure [facility] Diastolic blood 2021-04-03 22:08:00 76 mm[Hg] Unive rsity of pressure [facility] Heart rate 2021-04-03 22:08:00 75 /min [facility] Body temperature 2021-04-03 22:08:00 36.67 [facility] 2021-04-03 22:08:00 18 /min [facility] Body height 2021-04-03 22:08:00 160 cm [facility] Body weight 2021-04-03 22:08:00 101.606 kg [facility] BMI 2021-04-03 22:08:00 39.68 kg/m2 [facility] Procedures Procedure Date / Time Performed Performing Clinician Sourc e POCT URINALYSIS W/O 2021-04-03 00:00:00 Makayla Cunningham [facility] SPECIFIC [facility] Encounters Start End Encounter Admission Attending Care Care Encounter Source Date/Time Date/Time Type Type Clinicians Facility Department ID 2021-03-06 Outpatient Roche, Na STLMLC STLMLC [id number] [facility] 12:28:47 [id number] [facility] 2021-03-06 Outpatient Roche, Na STLMLC STLMLC [id number] [facility] 12:28:12 [id number] [facility] 2021-03-06 Outpatient Roche, Na STLMLC STLMLC [id number] [facility] 12:25:04 [id number] [facility] 2021-03-06 Outpatient Roche, Na STLMLC STLMLC [id number] 12:17:52 [id number] [facility] 2021-03-06 Outpatient Roche, Na STLMLC STLMLC [id number] [facility] 12:15:18 [id number] [facility] 2021-03-06 Outpatient Roche, Na STLMLC STLMLC [id number] [facility] [address] 12:13:42 [id number] [facility] 2021-03-06 Outpatient Roche, Na STLMLC STLMLC [id number] 11:59:23 [id number] [facility] 2021-03-06 Outpatient Roche, Na STLMLC STLMLC [id number] 11:58:53 [id number] [facility] 2021-03-06 Outpatient Roche, Na STLMLC STLMLC [id number] 11:56:53 [id number] [facility] 2021-03-06 Outpatient Roche, Na STLMLC STLMLC [id number] 11:54:19 [id number] [facility] 2021-03-06 Outpatient Roche, Na STLMLC STLMLC [id number] 11:52:02 [id number] [facility] 2021-03-06 Outpatient Roche, Na STLMLC STLMLC [id number] [facility] 11:51:35 [id number] [facility] 2021-03-06 Outpatient Roche, Na STLMLC STLMLC [id number] 11:51:00 [id number] [facility] 2021-03-06 Outpatient Roche, Na STLMLC STLMLC [id number] 11:49:29 [id number] [facility] 2021-03-06 Outpatient Roche, Na STLMLC STLMLC [id number] 11:48:31 [id number] [facility] 2021-03-06 Outpatient Roche, Na STLMLC STLMLC [id number] [facility] 11:46:10 [id number] [facility] 2021-07-05 2021-07-05 Outpatient Jaime SANCHEZ [facility] [id number] Univers 10:00:00 10:00:00 AQUILINO [id number] [facility] 2021-07-05 2021-07-05 [id number] Univers 10:00:00 10:00:00 AQUILINO [facility] 2021-04-05 2021-04-05 [facility] [id number] Univers 10:00[facility]40[facility] 2021-04-04 [facility] [id number] Univers 00:00:00 00:00:00 Makayla BEEBE [id number] i ty of [id number] PROF[place] [phone] N[place] dical NAL [address] [place] [address] 2021-04-03 2021-04-03 Office [facility] [id number] Univers 15:45:00 16:15:00 Visit Makayla BEEBE [id number] i ty [facility] [id number] [phone] N[place] dical NAL [address] [place] [address] 2021-04-03 2021-04-03 Outpatient R RICHARD [facility] [id number] Univers 15:45:00 15:45:00 MAKAYLA [facility] 2021-04-03 2021-04-03 [facility]ill [facility] [id number] Univers 00:00:00 00:00:00 Makayla BEEBE [id number] i ty [facility] [id number] [phone] N[place] dical NAL [address] [place] [address] 2020-09-06 2020-09-06 Office [facility] [id number] 14:45:51 17:24:18 [facility] [id number] [place] [id number] Professio [phone] [place] [address] [address] 2020-04-26 2020-04-26 Outpatient [facility]LMLC [facility] [id number] [facility] 2020-04-26 2020-04-26 Outpatient [facility]LMLC [facility] [id number] [facility] 2020-04-09 2020-04-09 Outpatient [facility] [id number] [facility] 2020-04-04 2020-04-04 Outpatient [facility]ML[facility] [id number] [facility] 2020-03-19 2020-03-19 Outpatient [facility] [id number] [facility] 2020-03-19 2020-03-19 Outpatient [facility] [id number] [facility] 2020-02-15 2020-02-15 Outpatient [facility]ML[facility] [id number] [facility] 2020-01-25 2020-01-25 Outpatient [facility]MLC [facility] [id number] [facility] 2020-01-24 2020-01-24 Outpatient [facility] [id number] [facility] 2019-12-07 2019-12-07 Outpatient [facility]MLC [facility] [id number] [facility] 2019-11-22 2019-11-22 Outpatient [facility]MLC [facility] [id number] [facility] 2019-11-14 2019-11-14 Outpatient [facility]LMLC [facility] [id number] [facility]00 [facility] 2019 2019 [facility] [id number] 13:40:00 13:40:00 t [employer] [facility] 2018-05-14 2018-05-14 [facility] [id number] 11:52:00 11:52:00 t [facility] L u[facility] - Care [facility] 2018-04-27 2018-04-27 [facility] [id number] [address] 10:40:00 10:40:00 t [facility]om[facility] L es - Care [facility] 2018-04-27 2018-04-27 [facility] [id number] [address] 10:07:00 10:07:00 t Womens Womens Care L [facility] - Care [facility] 2018-04-27 2018-04-27 [facility] [id number] [address] 09:15:00 09:15:00 t Specialty/U Tanisha kes - Specialty rology [facility] 2018-04-26 2018-04-26 [facility] [id number] 13:36:00 13:36:00 t Specialty/U Tanisha kes - Specialty rology [facility] 2018-04-21 2018-04-21 [facility] [id number] 10:00:00 10:00:00 t Womens Womens Care L ukes - Care [facility] 2017-08-24 2017-08-24 [facility] [id number] 10:31:00 10:31:00 t Cheers In s - Drive [facility] 2017-07-22 2017-07-22 [facility] [id number] 11:05:00 11:05:00 t [facility] [place] [facility] Care [facility] 2017-05-26 2017-05-26 [facility] [id number] 09:15:00 09:15:00 [employer] [place] [facility] Results Test Description Test Time Test Comments Results Result Comments Source POCT URINALYSIS W/O SPECIFIC GRAVITY 2021-04-03 22:18:00 Test Item Value Reference Range Interpretation Comme nts POCT PH U (test code = 3254) 5 mg/dl 5-8 POCT U LEUK EST (test code = 3263) 1+ Negative - Negative POCT U NIT (test code = 3262) Negative Negative - Negative POCT U PROT (test code = 3259) Negative Negative - Negative POCT U GLU (test code = 3256) 4+ Negative - Negative POCT U KETONE (test code = 3258) Small Negative - Negative POCT U BLD (test code = 3257) Trace Negative - Negative [facility]/O SPECIFIC [id number] 22:18:00 Test Item Value Reference Range Interpretation Comments POCT PH U (test code = 3254) 5 mg/dl 5-8 POCT U LEUK EST (test code = 1+ Negative - Negative 3263) POCT U NIT (test code = 3262) Negative Negative - Negative POCT U PROT (test code = 3259) Negative Negative - Negative POCT U GLU (test code = 3256) 4+ Negative - Negative POCT U KETONE (test code = 3258) Small Negative - Negative POCT U BLD (test code = 3257) Trace Negative - Negative [facility]2019-11-15 06:40:00 Test Item Value Reference Range Interpretation Comments GLUBED (test code = GLUBED) 92 mg/dL 65-110 N [id number] 23:29:00 Test Item Value Reference Range Interpretation Comments GLUBED (test code = GLUBED) 98 mg/dL 65-110 N [id number] 06:39:00 Test Item Value Reference Range Interpretation Comments GLUBED (test code = GLUBED) 94 mg/dL 65-110 N [id number] 22:51:00 Test Item Value Reference Range Interpretation Comments GLUBED (test code = GLUBED) 112 mg/dL 65-110 H [id number] 19:02:00 Test Item Value Reference Range Interpretation Comments GLUBED (test code = GLUBED) 76 mg/dL 65-110 N [id number] 13:24:00 Test Item Value Reference Range Interpretation Comments GLUBED (test code = GLUBED) 80 mg/dL 65-110 N [id number] 07:43:00 Test Item Value Reference Range Interpretation Comments GLUBED (test code = GLUBED) 86 mg/dL 65-110 N [id number] 21:39:00 Test Item Value Reference Range Interpretation Comments GLUBED (test code = GLUBED) 111 mg/dL 65-110 H [id number] 18:57:00 Test Item Value Reference Range Interpretation Comments GLUBED (test code = GLUBED) 103 mg/dL 65-110 N CHEMISTRY 7 [id number] 13:47:00 Test Item Value Reference Range Interpretation [...] CA) 8.5 mg/dL 8.4-10.2 N CBC W/AUTO [id number] 13:29:00 Test Item Value Reference Range Interpretation [...] NORMAL NORMAL code = PLTMR) SOFT TISSUE,NOT DANNIE/MASS/[id number] 13:23:00 RUN DATE: 12/21/18 [facility] PAGE 1 RUN TIME: 1410 Specimen Inquiry RUN USER: INTERFACE PATIENT: SOHAIL THOMPSON [facility] #: [id number] AGE/SX: 28/F ROOM: [facility] RE12/15/18REG DR: Arpan Min MD : 86 BED: A DIS: STATUS: ADM IN TLOC: SPEC #: [id number] RECD: 12/20/18 STATUS: OLEGARIO RE #: [id number] ARELIS: 12/17/18- [facility] DR: Arpan Min MD ENTERED: 12/20/18 SP TYPE: SOFTNOTMLD OTHR DR: Jesús Lord MD, Jill C MD Nasser, Dean A MDORDERED: LEVEL IV CODES: [id number] - SOFT TISSUES, N COPIES TO: Jesús Lord MD [address] [facility] [address] [place] [address] Lianet Weir MD [address] [facility] [address] [place] [address] [email or web address] Kristofer Gó[place] [address] [place] [address] Arpan Min MD [address] [facility] [address] [place], [place] [id number] PROCEDURES: LEVEL IV (Incomplete) TISSUES: SOFT TISSUES, NOS - EPIPLOACA WITH ABSCESS/SIGMOID/UTERUS,CERVIX,TUBES AND OVARIES CLINICAL HISTORY 28 year old, tubo-ovarian abscess (kr) CONTINUED ON NEXT PAGE RUN DATE: 12/21/18 [facility] PAGE 2 RUN TIME: 1410 Specimen Inquiry RUN USER: INTERFACE SPEC #: [id number] PATIENT: SOHAIL THOMPSON #[id number] (Continued) FINAL DIAGNOSIS Epiploica with abscess, excision: [...] adhesions, and ovarian serosal abscesses CPT code(s): 43262 x2, 78174 [facility] 12/21/18 GROSS DESCRIPTION ANATOMIC SOURCE OF [...] Specimen Inquiry RUN USER: INTERFACE SPEC #: [id number] PATIENT: SOHAIL THOMPSON #[id number] (Continued) GROSS DESCRIPTION (Continued) areas of induration, fibrosis and possible fat necrosis. Section code: B1 - donuts, B2 through B6 - signs sales representative sections of bowel with possible [...] - serosal adhesions, C5 and C6 - signs sales representative sections of small adnexa, C7 through C9 - signs sales representative sections of large adnexa. [email or web address]/jorge 12/20/18 @ 1125 Signed Diana James MD 12/21/18 1323 END OF REPORT [id number] 13:17:00 Test Item Value Reference Range Interpretation Comments GLUBED (test code = GLUBED) 89 mg/dL 65-110 N - XR ABDOMEN [id number] 10:26:00 Patient Name: SOHAIL THOMPSON Unit No: [id number] EXAMS: CPT CODE: [id number] XR ABDOMEN 2V 65136 ABDOMINAL RADIOGRAPHS-ERECT AND SUPINE COMPARISON: CT abdomen [...] MD CC: Lianet Weir Technologist: Gabriella Alvarado, Trnscrberic D/ (1026) [email or web address] Orig Print D/T: S: 12/21/2018 (1029) [facility] NAME: SOHIAL THOMPSON Radiology Department PHYS: Arpan Wallace MD [address] : 1990 AGE: 28 SEX: F [place] [address] LOC: F.2650 A PHONE #: [phone] EXAM DATE: 12/21/2018 STATUS: ADM INFAX #: [phone] RAD NO: Page 1 Signed [id number] 06:40:00 Test Item Value Reference Range Interpretation Comments GLUBED (test code = GLUBED) 117 mg/dL 65-110 H [id number] 00:48:00 Test Item Value Reference Range Interpretation Comments GLUBED (test code = GLUBED) 153 mg/dL 65-110 H [id number] 18:32:00 Test Item Value Reference Range Interpretation Comments GLUBED (test code = GLUBED) 83 mg/dL 65-110 N [id number] 12:58:00 Test Item Value Reference Range Interpretation Comments GLUBED (test code = GLUBED) 153 mg/dL 65-110 H CHEMISTRY 7 [id number] 05:45:00 Test Item Value Reference Range Interpretation [...] CA) 8.1 mg/dL 8.4-10.2 L CBC W/AUTO [id number] 05:30:00 Test Item Value Reference Range Interpretation [...] REQUIRED (test NORMAL NORMAL code = PLTMR) [id number] 00:18:00 Test Item Value Reference Range Interpretation Comments GLUBED (test code = GLUBED) 107 mg/dL 65-110 N [id number] 18:27:00 Test Item Value Reference Range Interpretation Comments GLUBED (test code = GLUBED) 144 mg/dL 65-110 H [id number] 12:13:00 Test Item Value Reference Range Interpretation Comments GLUBED (test code = GLUBED) 126 mg/dL 65-110 H [id number] 08:47:00 Test Item Value Reference Range Interpretation Comments MAGNESIUM (test code = MAG) 1.8 mg/dL 1.8-2.4 N Comments to Plastic Molding Operator: DO ON BLOOD IN LAB-- DRAWN THIS AMSpecimen Comment: BLOOD IN LAB.CHEMISTRY 7 [id number] 05:19:00 Test Item Value Reference Range Interpretation [...] CA) 7.5 mg/dL 8.4-10.2 L CBC W/AUTO [id number] 05:06:00 Test Item Value Reference Range Interpretation [...] REQUIRED (test NORMAL NORMAL code = PLTMR) [id number] 00:47:00 Test Item Value Reference Range Interpretation Comments GLUBED (test code = GLUBED) 159 mg/dL 65-110 H [id number] 21:14:00 Test Item Value Reference Range Interpretation Comments C-PEPTIDE (test code 2.9 ng/mL 1.1-4.4 C-Pepti de reference = CPEP) interval is for fasting patients.Perfor med At: HD [facility] [address] [place], [place] [id number] Rosa MD [phone] [id number] 21:14:00 Test Item Value Reference Range Interpretation Comments INSULIN (test code = 22.1 uIU/mL 2.6-24.9 Perform ed At: HD INS) [facility] [place] [address] [place], [place] [address]Zereric Rosa MD Ph:[phone] [id number] 18:25:00 Test Item Value Reference Range Interpretation Comments GLUBED (test code = GLUBED) 134 mg/dL 65-110 H [id number] 12:38:00 Test Item Value Reference Range Interpretation Comments GLUBED (test code = GLUBED) 137 mg/dL 65-110 H COMPREHENSIVE METABOLIC [id number] 05:57:00 Test Item Value Reference Range Interpretation [...] 69 units/L 46-116 N code = ALKP) [id number] 05:57:00 Test Item Value Reference Range Interpretation Comments MAGNESIUM (test code = 1.0 mg/dL 1.8-2.4 L RESUL TS CALLED TO MAG) ZAC TURK D BACK & CONFIRMED? Y. BY ESTRELLA.LDT 12/18 0557. RESULTS VERIFIED BY REP EAT ANALYSIS CBC W/AUTO [id number] 05:13:00 Test Item Value Reference Range Interpretation [...] NORMAL NORMAL REQUIRED (test code = PLTMR) [id number] 00:21:00 Test Item Value Reference Range Interpretation Comments GLUBED (test code = GLUBED) 280 mg/dL 65-110 H CHEMISTRY 7 [id number] 23:10:00 Test Item Value Reference Range Interpretation [...] CA) 7.1 mg/dL 8.4-10.2 L CBC W/AUTO [id number] 18:05:00 Test Item Value Reference Range Interpretation [...] NORMAL REQUIRED (test code = PLTMR) WBC [id number] 18:05:00 Test Item Value Reference Range Interpretation [...] code = NORMAL NORMAL PLTMORPH) CHEMISTRY 7 [id number] 17:48:00 Test Item Value Reference Range Interpretation [...] CA) 7.5 mg/dL 8.4-10.2 L CBC W/AUTO [id number] 17:32:00 Test Item Value Reference Range Interpretation Comments WHITE BLOOD CELL 28.6 K/mm3 6.6-12.1 HH RESULTS GILBERT IFIED BY (test code = WBC) REPEAT KEIRA LYSISRESULTS CALLED TO KARINA VILLALTA .READ BACK & CO NFIRMED? Y.BY F.LAB.RV 02/16/18 3239. RED BLOOD CELL (test 5.23 M/mm3 3.45-5.01 [...] NORMAL REQUIRED (test code = PLTMR) WBC [id number] 17:32:00 Test Item Value Reference Range Interpretation Comments SEGMENTED NEUTROPHILS (test code = SEG) % 56.5-79.4 LYMPHOCYTE (test code = LYMPH) % 20-40 CBC W/AUTO [id number] 17:32:00 Test Item Value Reference Range Interpretation Comments WHITE BLOOD CELL 28.6 K/mm3 6.6-12.1 HH RESULTS GILBERT IFIED BY (test code = WBC) REPEAT KEIRA LYSISRESULTS CALLED TO KARINA VILLALTA .READ BACK & CO NFIRMED? Y.BY F.LAB.RV 1 02/16/18 1250. RED BLOOD CELL (test 5.23 M/mm3 3.45-5.01 [...] NORMAL REQUIRED (test code = PLTMR) WBC [id number] 17:32:00 Test Item Value Reference Range Interpretation Comments SEGMENTED NEUTROPHILS (test code = SEG) % 56.5-79.4 LYMPHOCYTE (test code = LYMPH) % 20-40 [id number] 14:59:00 Test Item Value Reference Range Interpretation Comments GLUBED (test code = GLUBED) 288 mg/dL 65-110 H [id number] 06:04:00 Test Item Value Reference Range Interpretation Comments GLUBED (test code = GLUBED) 201 mg/dL 65-110 H URINALYSIS [id number] 03:54:00 Test Item Value Reference Range Interpretation [...] SAMPLE: CLEAN CATCHComment URINE WITH CULTUREUR HCG [id number] 03:54:00 Test Item Value Reference Range Interpretation [...] URINE SAMPLE: CLEAN CATCHComment URINE WITH CULTUREURINALYSIS [id number] 03:38:00 Test Item Value Reference Range Interpretation [...] SAMPLE: CLEAN CATCHComment URINE WITH CULTUREUR HCG [id number] 03:38:00 Test Item Value Reference Range Interpretation [...] tested. URINE SAMPLE: CLEAN CATCHComment URINE WITH [id number] 22:09:00 Test Item Value Reference Range Interpretation Comments GLUBED (test code = 263 mg/dL 65-110 H Phsician Notified GLUBED) [id number] 17:08:00 Test Item Value Reference Range Interpretation Comments GLUBED (test code = GLUBED) 286 mg/dL 65-110 H [id number] 15:28:00 Test Item Value Reference Range Interpretation Comments CREATININE (test code = CREAT) 0.9 mg/dL 0.5-1.0 N IS THIS A ONCE DAILY SINGLE DOSE? YESDATE OF LAST DOSE: 12/16/18TIME OF LAST DOSE: [id number] 15:28:00 Test Item Value Reference Range Interpretation Comments GENTAMICIN (test code 0.8 mcg/mL 0-14 N Adult normal range = GENT) for once daily dose of Gentamicin m ay beup to 24 mcg/ mL. Gentamicin resu lts must be correla darshan withthe time th e dose was administere d. IS THIS A ONCE DAILY SINGLE DOSE? YESDATE OF LAST DOSE: 12/16/18TIME OF LAST DOSE: [id number] 13:24:00 Test Item Value Reference Range Interpretation Comments GLUBED (test code = GLUBED) 274 mg/dL 65-110 H HCG [id number] 12:13:00 Test Item Value Reference Range Interpretation [...] THE ROOM AT THIS TIME. PHLEB/RBCHEMISTRY 7 [id number] 12:11:00 Test Item Value Reference Range Interpretation [...] IN THE ROOM AT THIS TIME. @ 93070BR TRY 1018 AM. PHLEB/RBCBC W/AUTO [id number] 11:40:00 Test Item Value Reference Range Interpretation [...] PLTMR) COME BACK LATER- CT ABD PELVIS [id number] 11:01:00 Patient Name: SOHAIL THOMPSON Unit No: [id number] EXAMS: CPT CODE: [id number] CT ABD PELVIS W/CONT 68891 Exam: CT scan of the abdomen and [...] wall demonstrates no significant abnormalities. IMPRESSION: [facility] NAME: SOHAIL THOMPSON Radiology Department PHYS: Arpan Wallace MD [address] : 1990 AGE: 28 SEX: F [place], [place] [address] LOC: F.4672 A PHONE #: [phone] EXAM DATE: 12/16/2018 STATUS: ADM IN FAX #: [phone] RAD NO: Page 1 Signed Report 1 Patient Name: SOHAIL THOMPSON Unit No: [id number] EXAMS: CPT CODE: [id number] CT ABD PELVIS W/CONT 66253 <Continued> Bilateral adnexal masses as described above. The patient gives a history of abscess drainage at [facility] October 05, 2018. She describes having drains and drainage bags on either side. The findings in the adnexal region may be sequela of this procedure. Prior images have been requested. at 1101 Reported and signed by: Charissa Arreola MD CC: Lianet Weir Technologist: Sarthak Coleman, RT, CT CTDI: 21.83 DLP: [phone] Trnscrbd D/ (1101) Sampson [facility] NAME: JOSE ALEJANDRO THOMPSONINA Radiology Department PHYS: Arpan Wallace MD [address] : 1990 AGE: 28 SEX: F [place], [place] [address] LOC: F.4672 A PHONE #: [phone] EXAM DATE: 12/16/2018 STATUS: ADM IN FAX #:[phone] RAD NO: Page 2 Signed Report 1 Patient Name: SOHAIL THOMPSON Unit No: [id number] EXAMS: CPT CODE: [id number] CT ABD PELVIS W/CONT 68301 <Continued> Orig Print D/T: S: 12/16/2018 (1104) [facility] NAME: SOHAIL THOMPSON Radiology Department PHYS: Arpan Wallace MD[address] : 1990 AGE: 28 SEX: F [place], [place] [address] LOC: Jeffery Webster PHONE #: [phone] EXAM DATE: 12/16/2018 STATUS: ADM IN FAX #: [phone] RAD NO: Page 3 Signed Report 1GLUBED 2018-12-16 07:07:00 Test Item Value Reference Range Interpretation Comments GLUBED (test code = GLUBED) 241 mg/dL 65-110 H CREATINE KINASE (CK)2018-12-15 19:52:00 Test Item Value Reference Range Interpretation Comments CREATINE KINASE (CK) (test code = 60 Units/L 26-192 N CK) [id number] 16:55:00 Test Item Value Reference Range Interpretation Comments GLUBED (test code = 339 mg/dL 65-110 H Phsician Notified GLUBED) GLYCOSYLATED HEMOGLOBIN [id number] 11:01:00 Test Item Value Reference Range Interpretation [...] H (test code = MBG) COMPREHENSIVE METABOLIC [id number] 11:01:00 Test Item Value Reference Range Interpretation [...] units/L 46-116 N code = ALKP) T4 [id number] 11:01:00 Test Item Value Reference Range Interpretation Comments T4 FREE (test code = T4F) 1.24 ng/dL 0.76-1.46 N THYROID STIMULATING [id number] 11:01:00 Test Item Value Reference Range Interpretation [...] fructosaminesho uld be considered for these patients. [id number] 10:19:00 Test Item Value Reference Range Interpretation Comments GLUBED (test code = 290 mg/dL 65-110 H Phsician Notified GLUBED) COMPREHENSIVE METABOLIC [id number] 07:23:00 Test Item Value Reference Range Interpretation [...] units/L 46-116 N code = ALKP) T4 [id number] 07:23:00 Test Item Value Reference Range Interpretation Comments T4 FREE (test code = T4F) 1.24 ng/dL 0.76-1.46 N THYROID STIMULATING [id number] 07:23:00 Test Item Value Reference Range Interpretation Comments THYROID STIMULATING 3.27 0.36-3.74 N Test Per formed in HORMONE (test code = MicroIn ternational Units/mL TSH) GLYCOSYLATED HEMOGLOBIN (HA1C)2018-12-15 07:23:00 Test Item Value Reference Range Interpretation Comments GLYCOSYLATED HEMOGLOBIN (HA1C) (test code = GLYHGB) [id number] 06:04:00 Test Item Value Reference Range Interpretation Comments GLUBED (test code = 308 mg/dL 65-110 H Phsician Notified GLUBED) COMPREHENSIVE METABOLIC [id number] 05:10:00 Test Item Value Reference Range Interpretation [...] 46-116 N code = ALKP) THYROID STIMULATING [id number] 05:10:00 Test Item Value Reference Range Interpretation Comments THYROID STIMULATING 3.27 0.36-3.74 N Test Per formed in HORMONE (test code = MicroIn ternational Units/mL TSH) GLYCOSYLATED HEMOGLOBIN (HA1C)2018-12-15 05:10:00 Test Item Value Reference Range Interpretation Comments GLYCOSYLATED HEMOGLOBIN (HA1C) (test code = GLYHGB) LACTIC [id number] 04:53:00 Test Item Value Reference Range Interpretation Comments LACTIC ACID (test code = LACT) 1.5 MMOL/L 0.5-2.2 N CBC W/AUTO [id number] 04:30:00 Test Item Value Reference Range Interpretation [...] code = PLTMR) - CT HEAD/BRAIN W/O [id number] 04:27:00 Patient Name: SOHAIL THOMPSON Unit No: [id number] EXAMS: CPT CODE: [id number] CT HEAD/BRAIN W/O CONT 32975 EXAM: CT, CT HEAD/BRAIN W/O CONTRAST; 12/15/2018, [...] acute hemorrhage or subacute stroke. SL: [facility] NAME: SOHAIL THOMPSON Radiology Department PHYS: Lianet Morrow MD [address] : 1990 AGE: 28 SEX: F [place], [place] [address] LOC: F.4672 A PHONE #: [phone] EXAM DATE: 12/15/2018 STATUS: ADM IN FAX #: [phone] RAD NO: Page 1 Signed Report 1 Patient Name: SOHAIL THOMPSON UnitNo: [id number] EXAMS: CPT CODE: [id number] CT HEAD/BRAIN W/O CONT 98252 <Continued> at 0427 Reported and signed by: Paul Barreto M.D. CC: Lianet Weir Technologist: COSTA RICAN HOLLIDAY, CT, RT CTDI: 53.12 DLP: 879.86 Trnscrbd D/ (0427) [email or web address] [facility] NAME:SOHAIL THOMPSON Radiology Department PHYS: Lianet Morrow MD [address] : 1990 AGE: 28 SEX: F [place] [address] LOC: F.4672 A PHONE #: [phone] EXAM DATE: 12/15/2018 STATUS: ADM IN FAX #: [phone] RAD NO: Page 2 Signed Report 1 Patient Name: SOHAIL THOMPSON Unit No: [id number] EXAMS: CPT CODE: [id number] CT HEAD/BRAIN W/O CONT 14862 <Continued> Orig Print D/T: S: 12/15/2018 (0430) [facility] [place] [facility] NAME: ROSHANJOSE ALEJANDRO MAYNARDINA Radiology DepartmentPHYS: Lianet Morrow MD [address] : 1990 AGE: 28 SEX: F [place] [address] LOC: F.4672 A PHONE #: [phone] EXAM DATE: 12/15/2018 STATUS: ADM IN FAX #: [phone] RAD NO: Page 3 Signed Report 1
[2021-04-24 08:27] LABS: Absolute Lymphocytes (CBC) 1.8 K/uL (0.7-4.9); Hematocrit 48.4 % (36.0-45.0); Lymphocytes % 10.3 % (15.3-44.8); MPV 9.1 fL (7.6-11.3); RBC Red Blood Cell Count 5.55 M/uL (3.86-4.86)
[2021-04-24] MEDS ORDERED: Ringers Lactate 1,000 ML IV ONE (08:31)
[2021-04-24] MEDS ORDERED: ONDANSETRON 4 MG/2 ML VIAL ONE (08:31)
[2021-04-24 08:36] LABS: Protime INR 0.89
[2021-04-24 08:55] LABS: ALT/SGPT 42 U/L (12-78); Albumin 3.8 g/dL (3.4-5.0); Alkaline Phosphatase 103 U/L (45-117); BUN Blood Urea Nitrogen 12 mg/dL (7-18); Bicarbonate 24 mmol/L (21-32); Bilirubin Total 1.2 mg/dL (0.2-1.0); Glucose Level 278 mg/dL (74-106); Lipase 159 U/L (73-393); Protein, Total 8.6 g/dL (6.4-8.2); Sodium Level 134 mmol/L (136-145)
[2021-04-24 08:56] LABS: AST/SGOT 25 U/L (15-37); Potassium 3.9 mmol/L (3.5-5.1)
--- NOTE | 2021-04-24 09:33 | RAD REPORT ---
EXAM DESCRIPTION: CTAbdomen Pelvis W Contrast - 04/24/2021 9:20 am CLINICAL HISTORY: Abdominal pain. ABD PAIN COMPARISON: Abdomen Pelvis W Contrast dated 04/05/2019; Abdomen Pelvis W Contrast dated 12/14/2018 ; Abdomen Pelvis W Contrast dated 09/27/2018; Abdomen Pelvis W Contrast dated 04/09/2018 TECHNIQUE: Biphasic CT imaging of the abdomen and pelvis was performed with 100 ml non-ionic IV cont rast. All CT scans are performed using dose optimization technique as appropriate and may include automated exposure control or mA/KV adjustment according to patient size. FINDINGS: The lung bases are clear. The liver demonstrates fatty infiltration. The spleen, pancreas, adrenal glands and kidneys are withi n normal limits. No bowel obstruction, free air, free fluid or abscess. Appendectomy. Postsurgical rectosigmoid anast omosis noted. Small fat containing midline ventral hernia. No evidence of significant lymphadenopathy . No suspicious bony findings. IMPRESSION: No acute intra-abdominal or pelvic finding. Mild fatty liver.
[2021-04-24 10:20] LABS: Urine Blood Negative (Negative); Urine Glucose 3+ (Negative); Urine Protein 1+ (Negative)
[2021-04-24 10:35] LABS: Barbiturates NEGATIVE (NEGATIVE); Benzodiazepines NEGATIVE (NEGATIVE); Cocaine NEGATIVE (NEGATIVE); METHAMPHETAM NEGATIVE (NEGATIVE); Methadone NEGATIVE (NEGATIVE); Opiates NEGATIVE (NEGATIVE); Phencyclidine NEGATIVE (NEGATIVE); THC Cannibis NEGATIVE (NEGATIVE)
--- NOTE | 2021-04-24 10:43 | ER ---
Nurse's Notes [facility] Name: Stacy Islas Age: 30 yrs Sex: Female : 1990 Arrival Date: 04/24/2021 Time: 08:08 Bed 3 Private MD: Diagnosis: Syncope;Vomiting;Abdominal pain, Generalized;Anxiety disorder, unspecified;Hyperglycemia, unspecified Presentation: 04/24 08:[address] Fraire and Jaime Sousa PA at bedside at this time. tw2 08:17 Chief complaint: EMS states: the patient was at a restaurant and appeared to be crying. ap3 It is reported the patient then got up to walk and fell, however a peer was able to prevent her from falling to the ground and assisted her into a chair. EMS was called. Coronavirus screen: At this time, the client does not indicate any symptoms associated with coronavirus-19. Ebola Screen: No symptoms or risks identified at this time. Initial Sepsis Screen: Does the patient meet any 2 criteria? No. Patient's initial sepsis screen is negative. Does the patient have a suspected source of infection? No. Patient's initial sepsis screen is negative. Risk Assessment: Do you want to hurt yourself or someone else? Patient reports no desire to harm self or others. Onset of symptoms was April 24, 2021. Care prior to arrival: Glucose check: 324. Activity prior to arrival: unresponsive. 08:17 Method Of Arrival: EMS: [facility] ap3 08:17 Acuity: VENTURA 3 ap3 Triage Assessment: 08:20 General: Appears in no apparent distress. Behavior is flat, quiet. Pain: Complains of ap3 pain in abdomen. Neuro: Reports patient quiet at this time. Was able to quietly report her date of and point to her abdomen when asked about pain. Cardiovascular: Patient's skin is warm and dry. Respiratory: Airway is patent Respiratory effort is even, unlabored, Respiratory pattern is regular, symmetrical. GI: Reports lower abdominal pain, upper abdominal pain. OYSTER HARVESTER: 08:21 LMP N/A - Hysterectomy ap3 Historical: - Allergies: 08:15 tazobactam; tw2 08:15 Zosyn; tw2 - Home Meds: 08:15 Novolog U-100 Insulin aspart 100 unit/mL Sub-Q soln [Active]; Lantus Sub-Q [Active]; tw2 - PMHx: 08:15 Diabetes - IDDM; Anxiety; tw2 - PSHx: 08:15 cellulitis I\T\D; section; hysterectomy; tw2 - Immunization history:: Adult Immunizations. - Social history:: Smoking status: . Screenin:14 Abuse screen: Denies threats or abuse. Nutritional screening: No deficits noted. tw2 Tuberculosis screening: No symptoms or risk factors identified. Fall Risk None identified. Assessment: 08:29 Cardiovascular: Rhythm is sinus tachycardia. ap3 08:29 General:. Neuro: patient is becoming more verbal at this time. ap3 08:47 Reassessment: Patient and/or family updated on plan of care and expected duration. Pain ap3 level reassessed. Patient is alert, oriented x 3, equal unlabored respirations, skin warm/dry/pink. 10:27 Reassessment: Patient and/or family updated on plan of care and expected duration. Pain ap3 level reassessed. Patient is alert, oriented x 3, equal unlabored respirations, skin warm/dry/pink. Patient observed to be sitting up in bed, talking on her cell phone. Respirations are even and unlabored at this time, call light is within reach. Bed is locked in lowest position with side rails up X's 2. Patient states feeling better. Patient states symptoms have improved. 10:37 Reassessment: provider at bedside this time. tw2 Vital Signs: 08:17 BP 134 / 60; Pulse 103; Resp 18; Temp 98.4; Pulse Ox 98% ; Weight 104.33 kg; Height 5 ap3 ft. 4 in. (162.56 cm); 08:47 BP 115 / 84; Pulse 99; Pulse Ox 99% on R/A; ap3 09:31 BP 119 / 77; Pulse 90; Pulse Ox 99% on R/A; ap3 10:09 BP 125 / 87; Pulse 93; Pulse Ox 100% ; ap3 08:17 Body Mass Index 39.48 (104.33 kg, 162.56 cm) ap3 ED Course: 08:08 Patient arrived in ED. ds1 08:08 Inserted saline lock: 20 gauge in right antecubital area, using aseptic technique. ap3 Blood collected. 08:13 Lars Schneider PA is PHCP. jr8 08:13 Fritz Fraire DO is Attending Physician. jr8 08:14 Arm band placed on. tw2 08:15 Bed in low position. Call light in reach. Side rails up X2. court monitor on. Pulse tw2 ox on. NIBP on. 08:17 Dawn Nielson, JEFF is Primary Nurse. ap3 08:20 Triage completed. ap3 08:33 Pt visited by . ap3 08:33 Door closed. Noise minimized. Warm blanket given. ap3 09:20 CT Abd/Pelvis - IV Contrast Only In Process Unspecified. EDMS 10:57 No provider procedures requiring assistance completed. IV discontinued, intact, ap3 bleeding controlled, No redness/swelling at site. Pressure dressing applied. Administered Medications: 08:30 Drug: Zofran (Ondansetron) 4 mg Route: IVP; Site: right antecubital; tw2 09:35 Follow up: Response: No adverse reaction; Nausea is decreased tw2 10:27 Follow up: Response: No adverse reaction ap3 08:32 Drug: Ringers - Lactated Ringers Solution 1000 ml Route: IV; Rate: bolus; Site: right tw2 antecubital; 10:27 Follow up: IV Status: Completed infusion; IV Intake: 1000ml ap3 Point of Care Testing: Blood Glucose: 08:21 Blood Glucose: 295 mg/dL; ap3 Ranges: Intake: 10:27 IV: 1000ml; Total: 1000ml. ap3 Outcome: 10:42 Discharge ordered by . jr8 10:57 Discharged to home via wheelchair, with family. ap3 10:57 Condition: good 10:57 Discharge instructions given to patient, Instructed on discharge instructions, follow up and referral plans. Demonstrated understanding of instructions, follow-up care. 10:58 Patient left the ED. ap3 Signatures: Dispatcher [employer] EDMT Yoselin Portillo Josh, PA PA jr8 Elmira Leon RN RN tw2 Dawn Nielson RN RN ap3
--- NOTE | 2021-04-24 10:43 | EDPHYS ---
Physician Documentation [facility] Name: Stacy Islas Age: 30 yrs Sex: Female : 1990 Arrival Date: 04/24/2021 Time: 08:08 Bed 3 Private MD: ED Physician Fritz Fraire HPI: 04/24 09:27 This 30 yrs old Female presents to ER via EMS with complaints of Syncope. jr8 09:27 Onset: The symptoms/episode began/occurred acutely, today. Associated injury: The jr8 patient did not suffer any apparent associated injury. Associated signs and symptoms: Pertinent positives: abdominal pain, vomiting. Current symptoms: decreased level of consciousness, is arousable but tired. The patient has experienced similar episodes in the past, a few times. The patient has not recently seen a physician. This is a 30-year-old female patient with a history of insulin-dependent diabetes and anxiety that presented to the emergency room after having a possible syncopal episode at work. Family stated that she had a recent adjustment in her insulin at home and from time to time she will have syncopal-like episodes with nausea and vomiting when she has fluctuations in her blood sugar. Patient for the last couple days has been complaining of generalized abdominal discomfort as well. Today had another episode while at work. Patient upon arrival to emergency room was responsive to painful stimulus initially.. MOLDER MEAT: 08:21 LMP N/A - Hysterectomy ap3 Historical: - Allergies: 08:15 tazobactam; tw2 08:15 Zosyn; tw2 - Home Meds: 08:15 Novolog U-100 Insulin aspart 100 unit/mL Sub-Q soln [Active]; Lantus Sub-Q [Active]; tw2 - PMHx: 08:15 Diabetes - IDDM; Anxiety; tw2 - PSHx: 08:15 cellulitis I\T\D; section; hysterectomy; tw2 - Immunization history:: Adult Immunizations. - Social history:: Smoking status: . ROS: 09:27 Abdomen/GI: Positive for abdominal pain, nausea and vomiting. jr8 09:27 Neuro: Positive for altered mental status, syncope. Exam: 09:27 Constitutional: This is a well developed, well nourished patient who is awake, alert, jr8 and in no acute distress. Cardiovascular: Regular rate and rhythm with a normal S1 and S2. No gallops, murmurs, or rubs. Normal PMI, no JVD. No pulse deficits. Respiratory: Lungs have equal breath sounds bilaterally, clear to auscultation and percussion. No rales, rhonchi or wheezes noted. No increased work of breathing, no retractions or nasal flaring. Skin: Warm, dry with normal turgor. Normal color with no rashes, no lesions, and no evidence of cellulitis. MS/ Extremity: Pulses equal, no cyanosis. Neurovascular intact. Full, normal range of motion. 09:27 Abdomen/GI: Inspection: obese Bowel sounds: active, all quadrants, Palpation: soft, in all quadrants, mild abdominal tenderness, in the abdomen diffusely, no appreciated organomegaly. 09:27 Neuro: Orientation: to person, Mentation: able to follow commands, slow to respond, Cranial nerves: CN I not tested, CN II- XII are normal as tested, extraocular movements are intact, Speech is slowed, Motor: moves all fours, Sensation: no obvious gross deficits, seizure activity, is not displayed by the patient, Abnormal movements: there are no abnormal movements. Vital Signs: 08:17 BP 134 / 60; Pulse 103; Resp 18; Temp 98.4; Pulse Ox 98% ; Weight 104.33 kg; Height 5 ap3 ft. 4 in. (162.56 cm); 08:47 BP 115 / 84; Pulse 99; Pulse Ox 99% on R/A; ap3 09:31 BP 119 / 77; Pulse 90; Pulse Ox 99% on R/A; ap3 10:09 BP 125 / 87; Pulse 93; Pulse Ox 100% ; ap3 08:17 Body Mass Index 39.48 (104.33 kg, 162.56 cm) ap3 MDM: 08:13 Patient medically screened. jr8 10:40 Data reviewed: vital signs, nurses notes, lab test result(s), EKG, radiologic studies, jr8 CT scan. Data interpreted: Pulse oximetry: on room air is 100 %. Interpretation: normal. Counseling: I had a detailed discussion with the patient and/or guardian regarding: the historical points, exam findings, and any diagnostic results supporting the discharge/admit diagnosis, lab results, radiology results, the need for outpatient follow up, a family practitioner, to return to the emergency department if symptoms worsen or persist or if there are any questions or concerns that arise at home. Response to treatment: the patient's symptoms have resolved after treatment, patient is well hydrated. ED course: Discussed labs imaging and physical exam with patient. No acute findings at this time. Patients mentation back to normal. Well hydrated and without any nausea or vomiting. Vital signs hemodynamically stable at this point. Patient stated that she often times gets anxious when she is not feeling well and feels like this is a major contributor as she has had similar symptoms in the past. Will follow up with her primary care knows to come back if anything were to worsen any point time.. 04/24 08:14 Order name: CBC with Diff; Complete Time: 09:04/24 08:14 Order name: ETOH Level; Complete Time: 10:37 04/24 08:14 Order name: PT-INR; Complete Time: 09:04/24 08:14 Order name: Ptt, Activated; Complete Time: 09:04/24 08:14 Order name: Urine Drug Screen; Complete Time: 10:37 04/24 08:14 Order name: CMP; Complete Time: 09:04/24 08:14 Order name: EKG; Complete Time: 08:15 04/24 08:14 Order name: Lipase; Complete Time: 09:02 04/24 08:14 Order name: Ketone, Serum; Complete Time: 09:02 04/24 08:20 Order name: glucometer results - FOR PT WITH NO ID; Complete Time: 09:05 ag7 04/24 09:03 Order name: CT Abd/Pelvis - IV Contrast Only; Complete Time: 09:43 04/24 10:20 Order name: Urine Dipstick-Ancillary; Complete Time: 10:37 EDCO 04/24 08:14 Order name: EKG - Nurse/Tech; Complete Time: 08:31 04/24 08:14 Order name: IV Saline Lock; Complete Time: 08:18 04/24 08:14 Order name: Labs collected and sent; Complete Time: 08:18 04/24 08:14 Order name: Urine Dipstick-Ancillary (obtain specimen); Complete Time: 10:22 04/24 08:15 Order name: Glucose Level; Complete Time: 08:17 jr8 Administered Medications: 08:30 Drug: Zofran (Ondansetron) 4 mg Route: IVP; Site: right antecubital; tw2 09:35 Follow up: Response: No adverse reaction; Nausea is decreased tw2 10:27 Follow up: Response: No adverse reaction ap3 08:32 Drug: Ringers - Lactated Ringers Solution 1000 ml Route: IV; Rate: bolus; Site: right tw2 antecubital; 10:27 Follow up: IV Status: Completed infusion; IV Intake: 1000ml ap3 Point of Care Testing: Blood Glucose: 08:21 Blood Glucose: 295 mg/dL; ap3 Ranges: Critical Glucose Levels:Adult <50 mg/dl or >400 mg/dl <40 mg/dl or >180 mg/dl Disposition: 09:16 30-year-old female with past medical history of insulin dependent diabetes mellitus and ms3 anxiety presents via EMS for altered mental status. Exam patient is alert and nonverbal. His heart rate and rhythm are regular without murmurs rubs or gallops. Lungs are clear to auscultation bilaterally. Skin is dry and without diaphoresis. Patient with grimace of palpation of abdomen. Discussed case with TERESA Matthews, and agree with plan.. 15:48 Co-signature as Attending Physician, Fritz Fraire DO. ms3 Disposition Summary: 04/24/21 10:42 Discharge Ordered Location: Home jr8 Problem: new jr8 Symptoms: have improved jr8 Condition: Stable jr8 Diagnosis - Syncope jr8 - Vomiting jr8 - Abdominal pain, Generalized jr8 - Anxiety disorder, unspecified jr8 - Hyperglycemia, unspecified jr8 Followup: jr8 - With: Private Physician - When: 2 - 3 days - Reason: Recheck today's complaints, Continuance of care, Re-evaluation by your physician Discharge Instructions: - Discharge Summary Sheet jr8 - Abdominal Pain, Adult jr8 - Vomiting, Adult jr8 - Hyperglycemia jr8 - Blood Glucose Monitoring, Adult jr8 Forms: - Medication Reconciliation Form jr8 - Thank You Letter jr8 - Antibiotic Education jr8 - Prescription Opioid Use jr8 - Work release form ap3 Signatures: Dispatcher [employer] EDLars Stanford PA PA jr8 Elmira Leon RN RN tw2 Fritz Fraire DO DO ms3 Dawn Nielson RN ap3 Corrections: (The following items were deleted from the chart) 08:17 08:14 Urine Test ordered. 09:27 Eyes: Negative for injury, pain, redness, and discharge, ENT: Negative for jr8 injury, pain, and discharge, Neck: Negative for injury, pain, and swelling, Cardiovascular: Negative for chest pain, palpitations, and edema, Respiratory: Negative for shortness of breath, cough, wheezing, and pleuritic chest pain, Back: Negative for injury and pain, MS/Extremity: Negative for injury and deformity, Skin: Negative for injury, rash, and discoloration, 09:27 Neuro: Positive for syncope, 10:56 08:14 Suicide Screening ([place]) ordered. 8 ap3
[2021-04-24 11:09] VITALS: TEMP 98.4
[2021-04-24 11:13] VITALS: BP 125/87; O2SAT 100
--- NOTE | 2021-04-29 08:38 | EKG ---
Test Date: 2021-04-24 Test Time: 07:22:04 Therapist'S Assistant: LUCIANO MEASUREMENT RESULTS: Intervals: Rate: 107 TX: 146 QRSD: 86 QT: 340 QTc: 453 [place]: P: 52 TX: 146 QRS: 37 T: 35 INTERPRETIVE STATEMENTS: Sinus tachycardia Nonspecific ST abnormality Abnormal ECG Compared to ECG 09/15/2020 14:23:34 ST (T wave) deviation now present Sinus rhythm no longer present Electronically Signed On 04-29-21 08:25:10 CDT by Mauricio John
== END 2021-04-24 10:58 | disposition home or self-care (01) ==
LOC: ER 08:07
DX: R41.82 Altered mental status, unspecified (principal); R55 Syncope and collapse; R11.10 Vomiting, unspecified; E11.65 Type 2 diabetes mellitus with hyperglycemia; R10.9 Unspecified abdominal pain; F41.9 Anxiety disorder, unspecified; Z88.8 Allergy status to other drugs, medicaments and biological substances
CPT/HCPCS: 96365; 93005; 85025; 36415; 80320; 82010; 85610; 82947; 85730; 81003; 83690; 80053; 80307; 74177; 96375; 99284; 96366; Q9967; J7120; J2405

== ENCOUNTER 2021-08-01 21:02 | Emergency (ER) | payer OTHER ==
--- OUTSIDE RECORDS SUMMARY | 2021-08-01 21:07 | XMS REPORT | Continuity of Care Document ---
:1990 Author Organization [facility] t Address [address] [place] [address] Care Team Providers Name Role Phone Ignacio MCCALL Primary Care Physician Shelley Roche Attending Clinician Unavailable AMADA ROTH Attending Clinician Unavailable Ignacio MCCALL Attending Clinician Nicole LEO Attending Clinician Tabitha LEO A Attending Clinician Payers Payer Name Policy Type Policy Number Effective Date Expiration Date Paul BRADY [id number] 2015 HEALTH 00:00:00 Problems Condition Condition Condition Status Onset Resolution Last Treating Co mments Source Name Details Category Date Date Treatment Clinician Date Pain of Pain of Disease Active Univers left hand left hand 2-04 ity of 00:00: Medical Branch Folliculit Folliculit Disease Active U nivers is is 2-04 ity of 00:00: [place] [facility] NAFLD NAFLD Disease Active Univers (nonalcoho (nonalcoho 09-10 [place] lic fatty [place] liver 00 [place] disease) disease) Branch Metabolic Metabolic Disease Active Uni vers syndrome syndrome 10-02 ity of 00:00: Medical Branch 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) [facility] Branch Allergies, Adverse Reactions, Alerts Allergy Allergy Status Severity Reaction(s) Onset Inactive Treating Comm ents Source Name Type Date Date Clinician Penicill DA Active U 2018-02 [facility] ins 02-14 00:[facility]: [address] tazobact DA Active U 2018-02 [facility] am 02-14 00:00: [address] piperaci DA Active U 2018-02 [facility] llin 02-14 00:00: [address] PIPERACI DRUG Active High Anaphylaxis Uni vers LLIN-CLARK 8-21 ity of OBACTAM 00:00: [place] [facility] Piperaci Propensi Active Anaphylaxis U nivers llin-Clark ty to 821 ity of obactam adverse 00:00: [place] reaction 00 Medical s Branch Zosyn Adverse Active shortness of Com mon Reaction breath [facility] Social History Social Habit Start Date Stop Date Quantity Comments Source History SDOH University o f Alcohol Std [place] [facility] Drinks Branch History SDOH University o f Alcohol Binge [place] [facility] History SDOH University o f Alcohol Comment [place] [facility] ical [facility] Exposure to 2021-06-21 2021-07-01 Not sure University SARS-CoV-2 00:00:00 16:00:00 [place] [facility] (event) Branch Alcohol intake 2021-06-18 2021-06-18 Lifetime University of 00:00:00 00:00:00 non-drinker [facility] (finding) Branch Tobacco use and 2018-08-16 2018-08-16 Never used Universit y of exposure 00:00:00 00:00:00 [place] [facility] History SDMO 2018-08-16 2018-08-16 1 University o f Alcohol Frequency 00:00:00 00:00:00 [facility] edical Branch Education 2018-08-16 2018-08-16 13 University of 00:00:00 00:00:00 [place] [facility] History [facility] 2018-08-16 2018-08-16 3 University o f Financial 00:00:00 00:00:00 [place] [facility] History [facility] Food 2018-08-16 2018-08-16 1 Univers ity of Worry 00:00:00 00:00:00 [place] [facility] History [facility] Food 2018-08-16 2018-08-16 2 Univers ity of Scarcity 00:00:00 00:00:00 [place] [facility] History [facility] 2018-08-16 2018-08-16 2 University o f Transport Med 00:00:00 00:00:00 [place] Medic al [facility] History [facility] 2018-08-16 2018-08-16 2 University o f Transport Non-Med 00:00:00 00:00:00 [facility] Sex Ass[birth year] At [birth year] Universit y of 00:00:00 00:00:00 [facility] Branch Smoking Status Start Date Stop Date Source Never smoker [facility] Medications Ordered Filled Start Stop Current Ordering Indication Dosage Frequency Signature Comments Components Source Medication Medication Date Date Medication? Clinician (SIG) Name Name blood sugar Yes Use to [facility] ers diagnostic 07-04 check ity of (TRUE 00:00: blood [place] METRIX 00 sugar 3X Medical GLUCOSE daily. Branch TEST STRIP) DX:E11.8 strip Blood-Gluco Yes Use to [employer] ers se Meter 07-04 check ity of (TRUE 00:00: blood [place] METRIX 00 sugar 3X Medical GLUCOSE daily. Branch METER) Kit DX:E11.8 Insulin Yes [id number] Use as Univ ers [place], -24 directed ity of Disposable, 00:00: to inject [place] (PEN 00 insulin Medical NEEDLE) 31 four times Bra nch gauge x daily for 5/16" Ndle E11.8 metFORMIN Yes [id number] 1000mg Take 2 Univers 500 mg 24 5-23 tablets by ity of hr tablet 00:00: mouth 2 [place] 00 (two) Medical times Branch daily with meals. metFORMIN Yes [id number] 1000mg Take 2 Univers 500 mg 24 5-23 tablets by ity of hr tablet 00:00: mouth 2 [place] 00 (two) Medical times Branch daily with meals. metFORMIN Yes [id number] 1000mg Take 2 Univers 500 mg 24 5-23 tablets by ity of hr tablet 00:00: mouth 2 [place] 00 (two) Medical times Branch daily with meals. blood sugar 2021- No [id number] Use 4 Univers diagnostic - 05-26 times ity of (ONETOUCH 00:00: 00:00 [place]. [place] VERIO TEST 00 :00 E11.8 Medical STRIPS) Branch strip blood sugar 2021- No [id number] Use 4 Univers diagnostic -23 05-26 times ity of (ONETOUCH 00:00: 00:00 [place]. [place] VERIO TEST 00 :00 E11.8 Medical STRIPS) Branch strip Insulin 2021- No [id number] Use as Uni vers [place], 07-01-24 directed ity of Disposable, 00:00: 00:00 [place] (PEN 00 :00 Medical NEEDLE) 31 Branch gauge x 16" Ndle Insulin 2021- No [id number] Use as Uni vers [place], 07-01 05-24 directed ity of Disposable, 00:00: 00:00 [place] (PEN 00 :00 Medical NEEDLE) 31 Branch gauge x 5/16" Ndle acetaminoph Yes [id number] 1000mg Take 2 Univers en 500 mg 4-13 tablets by ity of tablet 00:00: mouth [place] 00 every 8 Medical (eight) Branch hours as needed for Pain or Fever. azithromyci Yes [id number] 250mg Take 1 Univers n 250 mg 4-13 tablet by ity of tablet 00:00: mouth [place] 00 daily. 2 Medical tablets Branch day 1, then 1 tablet days 2-5 bromphenira 2021-0 Yes [id number] 5mL Take 5 mL Univers mine-pseudo 4-13 by mouth 4 it y of ephedrine-D 00:00: (four) [place] M (BROMFED 00 times Medical DM) 2-30-10 daily as Bran ch mg/5 mL needed for syrup Congestion /Allergies , Cold symptoms or Cough. acetaminoph 2021-0 Yes [id number] 1000mg Take 2 Univers en 500 mg 4-13 tablets by ity of tablet 00:00: mouth [place] 00 every 8 Medical (eight) Branch hours as needed for Pain or Fever. azithromyci 2021-0 Yes [id number] 250mg Take 1 Univers n 250 mg 4-13 tablet by ity of tablet 00:00: mouth [place] 00 daily. 2 Medical tablets Branch day 1, then 1 tablet days 2-5 bromphenira 2021-0 Yes [id number] 5mL Take 5 mL Univers mine-pseudo 4-13 by mouth 4 it y of ephedrine-D 00:00: (four) [place] M (BROMFED 00 times Medical DM) 2-30-10 daily as Bran ch mg/5 mL needed for syrup Congestion /Allergies , Cold symptoms or Cough. acetaminoph 2021-0 Yes [id number] 1000mg Take 2 Univers en 500 mg 4-13 tablets by ity of tablet 00:00: mouth [place] 00 every 8 Medical (eight) Branch hours as needed for Pain or Fever. azithromyci 2021-0 Yes [id number] 250mg Take 1 Univers n 250 mg 4-13 tablet by ity of tablet 00:00: mouth [place] 00 daily. 2 Medical tablets Branch day 1, then 1 tablet days 2-5 bromphenira 2021-0 Yes [id number] 5mL Take 5 mL Univers mine-pseudo 4-13 by mouth 4 it y of ephedrine-D 00:00: (four) [place] M (BROMFED 00 times Medical DM) 2-30-10 daily as Bran ch mg/5 mL needed for syrup Congestion /Allergies , Cold symptoms or Cough. insulin 0 Yes [id number] 50U inject 50 U nivers degludec-li 3-23 Units ity of raglutide 00:00: under the [place] (XULTOPHY 00 skin Medical 100/3.6) daily. Branch 100 unit-3.6 mg /mL (3 mL) InPn insulin Yes [id number] 50U inject 50 U nivers degludec-li 3-23 Units ity of raglutide 00:00: under the [place] (XULTOPHY 00 skin Medical 100/3.6) daily. Branch 100 unit-3.6 mg /mL (3 mL) InPn insulin Yes [id number] 50U inject 50 U nivers degludec-li 3-23 Units ity of raglutide 00:00: under the [place] (XULTOPHY 00 skin Medical 100/3.6) daily. Branch 100 unit-3.6 mg /mL (3 mL) InPn Nitrofurant Yes [id number] 100mg Take 1 Univers oin&Nit. 2-26 capsule by ity o f Macrocryst 00:00: mouth 2 [place] (MACROBID) 00 (two) Medical 100 mg times Branch capsule daily. Nitrofurant Yes [id number] 100mg Take 1 Univers oin&Nit. 2-26 capsule by ity o f Macrocryst 00:00: mouth 2 [place] (MACROBID) 00 (two) Medical 100 mg times Branch capsule daily. Nitrofurant Yes [id number] 100mg Take 1 Univers oin&Nit. 2-26 capsule by ity o f Macrocryst 00:00: mouth 2 [place] (MACROBID) 00 (two) Medical 100 mg times Branch capsule daily. insulin Yes [id number] 1{each} 1 Each 4 Univers syr/ndl 2-25 (four) ity of U100 half 00:00: times [place] melvin 0.5 mL 00 daily. Use Me dical 31 gauge x with Branch 06/24" Syrg insulin 4 times daily. Dx E11.8 insulin Yes [id number] 15U inject 15 U nivers aspart 2-25 Units ity of RAPID 00:00: under the [place] (NOVOLOG 00 skin 3 Medical U-100 (three) Branch INSULIN times ASPART) 100 daily unit/mL before injection meals. lancets 0 Yes [id number] Use 4 Unive rs (ONE TOUCH 2-25 times ity of DELICA) 33 00:00: daily. Dx [place] gauge Misc 00 E11.8 Medical Branch insulin 0 Yes [id number] 1{each} 1 Each 4 Univers syr/ndl 2-25 (four) ity of U100 half 00:00: times [place] melvin 0.5 mL 00 daily. Use Me dical 31 gauge x with Branch 5/16" Syrg insulin 4 times daily. Dx E11.8 insulin Yes [id number] 15U inject 15 U nivers aspart 2-25 Units ity of RAPID 00:00: under the [place] (NOVOLOG 00 skin 3 Medical U-100 (three) Branch INSULIN times ASPART) 100 daily unit/mL before injection meals. lancets Yes [id number] Use 4 Unive rs (ONE TOUCH 2-25 times ity of DELICA) 33 00:00: daily. Dx [place] gauge Misc E11.8 Medical Branch insulin 0 Yes [id number] 1{each} 1 Each 4 Univers syr/ndl 2-25 (four) ity of U100 half 00:00: times [place] melvin 0.5 mL 00 daily. Use Me dical 31 gauge x with Branch 5/16" Syrg insulin 4 times daily. Dx E11.8 insulin Yes [id number] 15U inject 15 U nivers aspart 2-25 Units ity of RAPID 00:00: under the [place] (NOVOLOG 00 skin 3 Medical U-100 (three) Branch INSULIN times ASPART) 100 daily unit/mL before injection meals. lancets Yes [id number] Use 4 Unive rs (ONE TOUCH 2-25 times ity of DELICA) 33 00:00: daily. Dx [place] gauge Misc 00 E11.8 Medical Branch blood sugar 2021-0 2021- No [id number] Use 4 Univers diagnostic 2-25 05-23 times ity of (ONETOUCH 00:00: 00:00 daily. [place]x [place] VERIO TEST 00 :00 E11.8 Medical STRIPS) Branch strip blood sugar 2021- No [id number] Use 4 Univers diagnostic 2-25 05-23 times ity of (ONETOUCH 00:00: 00:00 daily. Dx [place] VERIO TEST 00 :00 E11.8 Medical STRIPS) Branch strip miconazole Yes [id number] 1{appli Insert 1 Univers (MICONAZOLE 2-24 cator} Applicator ity of -7) 2 % 00:00: into vaginal 00 vagina at Medical cream bedtime. Branch miconazole Yes [id number] 1{appli Insert 1 Univers (MICONAZOLE 2-24 cator} Applicator ity of -7) 2 % 00:00: into vaginal 00 vagina at Medical cream bedtime. Branch miconazole Yes [id number] 1{appli Insert 1 Univers (MICONAZOLE 2-24 cator} Applicator ity of -7) 2 % 00:00: into vaginal 00 vagina at Medical cream bedtime. Branch albuterol 2020-02 Yes [id number] 2{puff} Inhale 2 Univers 90 2-13 Puffs ity of mcg/actuati 00:00: every 4 [place] as on inhaler 00 (four) Medical hours as Branch needed for Wheezing or Shortness of Breath. albuterol 2020-02 Yes [id number] 2{puff} Inhale 2 Univers 90 2-13 Puffs ity of mcg/actuati 00:00: every 4 [place] as on inhaler 00 (four) Medical hours as Branch needed for Wheezing or Shortness of Breath. albuterol 2020-02 Yes [id number] 2{puff} Inhale 2 Univers 90 2-13 Puffs ity of mcg/actuati 00:00: every 4 [place] as on inhaler 00 (four) Medical hours as Branch needed for Wheezing or Shortness of Breath. BD INSULIN Yes Univers SYRINGE 11-07 ity of ULTRA-FINE 00:00: [place] 1 mL 31 Medical gauge x Branch 5/16 Syrg BD INSULIN Yes Univers SYRINGE 11-07 ity of ULTRA-FINE 00:00: [place] 1 mL 31 Medical gauge x Branch 5/16 Syrg BD INSULIN Yes Univers SYRINGE 11-07 ity of ULTRA-FINE 00:00: [place] 1 mL 31 00 Medical gauge x Branch 5/16 Syrg valACYclovi Yes [id number] 500mg Take 1 Univers r (VALTREX) 9-20 tablet by ity of 500 mg 00:00: mouth 2 [place] tablet 00 (two) Medical times Branch daily. valACYclovi 2020-0 Yes [id number] 500mg Take 1 Univers r (VALTREX) 9-20 tablet by ity of 500 mg 00:00: mouth 2 [place] tablet 00 (two) Medical times Branch daily. valACYclovi 2020-0 Yes [id number] 500mg Take 1 Univers r (VALTREX) 9-20 tablet by ity of 500 mg 00:00: mouth 2 [place] tablet 00 (two) Medical times Branch daily. lisinopriL 2020-0 Yes [id number] 1.25mg Take 0.5 Univers 2.5 mg 8-07 tablets by ity of tablet 00:00: mouth [place] 00 daily. Medical Branch lisinopriL 2020-0 Yes [id number] 1.25mg Take 0.5 Univers 2.5 mg 8-07 tablets by ity of tablet 00:00: mouth [place] 00 daily. Medical Branch lisinopriL 2020-0 Yes [id number] 1.25mg Take 0.5 Univers 2.5 mg 8-07 tablets by ity of tablet 00:00: mouth [place] 00 daily. Medical Branch topiramate Yes [id number] 25mg Take 1 Univers 25 mg 8-06 tablet by ity of tablet 00:00: mouth 2 [place] 00 (two) Medical times Branch daily. After one week may take 2 PO BID. topiramate 2020-0 Yes [id number] 25mg Take 1 Univers 25 mg 8-06 tablet by ity of tablet 00:00: mouth 2 [place] 00 (two) Medical times Branch daily. After one week may take 2 PO BID. topiramate Yes [id number] 25mg Take 1 Univers 25 mg 8-06 tablet by ity of tablet 00:00: mouth 2 [place] 00 (two) Medical times Branch daily. After one week may take 2 PO BID. Insulin 2021- No [id number] Use as Uni vers [place], 05-18 directed ity of Disposable, 00:00: 00:00 [place] (PEN 00 :00 Medical NEEDLE) 31 Branch gauge x 5/16" Ndle Insulin 2021- No [id number] Use as Uni vers [place], 05-18 directed ity of Disposable, 00:00: 00:00 [place] (PEN 00 :00 Medical NEEDLE) 31 Branch gauge x 16" Ndle Norethin Norethin 2019-0 Yes Na Roche 1 tablet Common Johnnie-Eth Johnnie-Eth 3-13 Spirit Estrad-FE Estrad-FE 00:00: - C HI 00 [facility] Lancets Lancets 2018-0 Yes Na Roche one Comm on Super Thin Super Thin 4-17 Spi rit 00:00: - [facility] 00 [facility] Lisinopril Lisinopril Yes Na Roche 1 tablet Common [facility] Loryna Loryna Yes Na Roche 1 tablet Comm on [facility] Metformin Metformin Yes Na Roche 1 tablet Common HCl HCl with meals [facility] Immunizations Ordered Filled Immunization Date Status Comments Sourc e Immunization Name Name [facility] 2013-02-09 Completed University 00:00:00 [facility] 2013-02-09 Completed University 00:00:00 [facility] 2013-02-09 Completed [facility] 00:00:00 [facility] Vital Signs Vital Name Observation Time Observation Value Comments Source Systolic blood 2021-07-01 21:03:00 115 mm[Hg] [facility] Diastolic blood 2021-07-01 21:03:00 75 mm[Hg] [facility] Heart rate 2021-07-01 21:03:00 81 /min [facility] Body weight 2021-07-01 21:03:00 103.874 kg [facility] BMI 2021-07-01 21:03:00 40.57 kg/m2 [facility] Oxygen saturation 2021-07-01 21:03:00 97 /min [facility] in Arterial blood Medical Br anch by Pulse oximetry Procedures Procedure Date / Time Performed Performing Clinician Victor Hugo e POCT HEMOGLOBIN A1C 2021-07-01 21:12:00 Rosa Maria Rivera [facility] Encounters Start End Encounter Admission Attending Care Care Encounter Source Date/Time Date/Time Type Type Clinicians Facility Department ID 2021-03-06 Outpatient Roche, Na STLMLC STLM [id number] 2 Common 12:28:47 [id number] [facility] 2021-03-06 Outpatient Roche, Na STLMLC STLMLC [id number] 2 Common 12:28:12 [id number] [facility] 2021-03-06 Outpatient Roche, Na STLMLC STLMLC [id number] 2 Common 12:25:04 [id number] [facility] 2021-03-06 Outpatient Roche, Na STLMLC STLMLC [id number] 2 Common 12:17:52 [id number] [facility] 2021-03-06 Outpatient Roche, Na STLMLC STLMLC [id number] 2 Common 12:15:18 [id number] [facility] 2021-03-06 Outpatient Roche, Na STLMLC STLMLC [id number] 2 Common 12:13:42 [id number] [facility] 2021-03-06 Outpatient Roche, Na STLMLC STLMLC [id number] 2 Common 11:59:23 [id number] [facility] 2021-03-06 Outpatient Roche, Na STLMLC STLMLC [id number] 2 Common 11:58:53 [id number] [facility] 2021-03-06 Outpatient Roche, Na STLMLC STLMLC [id number] 2 Common 11:56:53 [id number] [facility] 2021-03-06 Outpatient Roche, Na STLMLC STLMLC [id number] 2 Common 11:54:19 [id number] [facility] 2021-03-06 Outpatient Roche, Na STLMLC STLMLC [id number] 2 Common 11:52:02 [id number] [facility] 2021-03-06 Outpatient Roche, Na STLMLC STLMLC [id number] 2 Common 11:51:35 [id number] [facility] 2021-03-06 Outpatient Roche, Na STLMLC STLMLC [id number] 2 Common 11:51:00 [id number] [facility] 2021-03-06 Outpatient Roche, Na STLMLC STLMLC [id number] 2 Common 11:49:29 [id number] [facility] 2021-03-06 Outpatient Marcela Roche STLMLC STLMLC [id number] 2 Common 11:48:31 [id number] [facility] 2021-03-06 Outpatient Marcela Roche STLMLC STLMLC [id number] 2 Common 11:46:10 [id number] [facility] 2021-08-02 2021-08-02 Outpatient Jaime ROTH [facility] [id number] Univers 15:30:00 15:30:00 DENAE [id number] [facility] [place] [facility] 2021-08-02 2021-08-02 [facility] [id number] Univers 15:30:00 15:30:00 DENAE [facility] [place] [facility] 2021-08-01 2021-08-01 [facility] [id number] Univers 00:00:00 00:00:00 Radha [place] [id number] ity [facility] [id number] PROFESSIO [phone] Sc [address] 2021-07-01 2021-07-01 Office Rosa Maria Rivera [facility] [id number] Univers 16:00:00 17:10:06 Visit HEALTH [id number] it y of [place] [id number] Ahmet as MICHELE?BLEA [phone] Sc dical [address] OFFICE BUILDING 2020-09-06 2020-09-06 Office Tabitha [facility] [id number] 14:45:51 17:24:18 Visit [facility] [id number] [place] [id number] Professio [phone] [place] [address] [address] 2020-04-26 2020-04-26 Outpatient STLMLC STLMLC [id number] Common 00:00:00 00:00:00 [facility] 2020-04-26 2020-04-26 Outpatient STLMLC STLC [id number] Common 00:00:00 00:00:00 [facility] 2020-04-09 2020-04-09 Outpatient STLMLC STLMLC [id number] Common 00:00:00 00:00:00 [facility] 2020-04-04 2020-04-04 Outpatient STLMLC STLMLC [id number] Common 00:00:00 00:00:00 [facility] 2020-03-19 2020-03-19 Outpatient STLMLC STLMLC [id number] Common 00:00:00 00:00:00 [facility] 2020-03-19 2020-03-19 Outpatient STLMLC STLMLC [id number] Common 00:00:00 00:00:00 [facility] 2020-02-15 2020-02-15 Outpatient STLMLC STLMLC [id number] Common 00:00:00 00:00:00 [facility] 2020-01-25 2020-01-25 Outpatient STLMLC STLMLC [id number] Common 00:00:00 00:00:00 [facility] 2020-01-24 2020-01-24 Outpatient STLMLC STLMLC [id number] Common 00:00:00 00:00:00 [facility] 2019-12-07 2019-12-07 Outpatient STLMLC STLMLC [id number] Common 00:00:00 00:00:00 [facility] 2019-11-22 2019-11-22 Outpatient STLMLC STLMLC [id number] Common 00:00:00 00:00:00 [facility] 2019-11-14 2019-11-14 Outpatient STLMLC STLMLC [id number] Common 00:00:00 00:00:00 [facility] 2019 2019 [facility] [id number] Common 13:40:00 13:40:00 t [employer] Spir it [employer] [facility] 2018-05-14 2018-05-14 [facility] [id number] Common 11:52:00 11:52:[address] [facility] Clinic [facility] 2018-04-27 2018-04-27 [facility] [id number] Common 10:40:00 10:40:00 [facility] Clinic [facility] 2018-04-27 2018-04-27 [facility] [id number] Common 10:07:00 10:07:00 [facility] [place] [facility] 2018-04-27 2018-04-27 [facility] [id number] Common 09:15:00 09:15:00 t Specialty/U Sp arianna Specialty rology - [facility] /Urology Clinic [facility] 2018-04-26 2018-04-26 [facility] [id number] Common 13:36:00 13:36:00 t Specialty/U Sp arianna Specialty rology - [facility] /Urology Clinic [facility] 2018-04-21 2018-04-21 [facility] [id number] Common 10:00:00 10:00:00 t [facility] 2017-08-24 2017-08-24 [facility] [id number] Common 10:31:00 10:31:[address] [employer] [address] [facility] 2017-07-22 2017-07-22 [facility] [id number] Common 11:05:00 11:05:00 t [facility] it Care Care Clinic - [facility] I Clinic [facility] 2017-05-26 2017-05-26 [facility] [id number] Common 09:15:00 09:15:[address] [facility] Results Test Description Test Time Test Comments Results Result Comments Source POCT HEMOGLOBIN A1C TEST 2021-07-01 21:17:00 Test Item Value Reference Range Interpretation Comme nts POCT HBA1C (test code = 4548-4) 10.4 % 4-6 A Lab Interpretation (test code = 87620-2) Abnormal [facility] HEMOGLOBIN A1C [id number] 21:17:00 Test Item Value Reference Range Interpretation Comments POCT HBA1C (test code = 4548-4) 10.4 % 4-6 A Lab Interpretation (test code = Abnormal 55151-3[facility] Test Item Value Reference Range Interpretation Comments GLUBED (test code = GLUBED) 92 mg/dL 65-110 N [id number] 23:29:00 Test Item Value Reference Range Interpretation Comments GLUBED (test code = GLUBED) 98 mg/dL 65-110 N [id number] 06:39:00 Test Item Value Reference Range Interpretation Comments GLUBED (test code = GLUBED) 94 mg/dL 65-110 N [id number] 22:51:00 Test Item Value Reference Range Interpretation Comments GLUBED (test code = GLUBED) 112 mg/dL 65-110 H [id number] 19:02:00 Test Item Value Reference Range Interpretation Comments GLUBED (test code = GLUBED) 76 mg/dL 65-110 N [id number] 13:24:00 Test Item Value Reference Range Interpretation Comments GLUBED (test code = GLUBED) 80 mg/dL 65-110 N [id number] 07:43:00 Test Item Value Reference Range Interpretation Comments GLUBED (test code = GLUBED) 86 mg/dL 65-110 N [id number] 21:39:00 Test Item Value Reference Range Interpretation Comments GLUBED (test code = GLUBED) 111 mg/dL 65-110 H [id number] 18:57:00 Test Item Value Reference Range Interpretation Comments GLUBED (test code = GLUBED) 103 mg/dL 65-110 N CHEMISTRY 7 [id number] 13:47:00 Test Item Value Reference Range Interpretation [...] CA) 8.5 mg/dL 8.4-10.2 N CBC W/AUTO [id number] 13:29:00 Test Item Value Reference Range Interpretation [...] NORMAL NORMAL code = PLTMR) SOFT TISSUE,NOT DANNIE/MASS/[id number] 13:23:00 RUN DATE: 12/21/18 [facility] PAGE 1 RUN TIME: 1410 Specimen Inquiry RUN USER: INTERFACE PATIENT: SOHAIL THOMPSON LOC: U #: [id number] AGE/SX: 28/F ROOM: [facility] RE12/15/18REG DR: Arpan Min MD : 86 BED: A DIS: STATUS: ADM IN TLOC: SPEC #: [id number] RECD: 12/20/18 STATUS: OLEGARIO REQ #: [id number] ARELIS: 12/17/18- [facility] DR: Arpan Min MD ENTERED: 12/20/18 SP TYPE: SOFTNOTMLD OTHR DR: Jesús Lord MD, Jill C MD Nasser, Dean A MDORDERED: LEVEL IV CODES: [id number] - SOFT TISSUES, N COPIES TO: Jesús Lord MD [address] [facility] [address] [place], [place] [id number] Lianet Weir MD [address] [facility] [address] [place], [place] [id number] [email or web address] [address] [place], [place] [id number] Arpan Min MD [address] [facility] [address] [place], [place] [id number] PROCEDURES: LEVEL IV (Incomplete) TISSUES: SOFT TISSUES, NOS - EPIPLOACA WITH ABSCESS/SIGMOID/UTERUS,CERVIX,TUBES AND OVARIES CLINICAL HISTORY 28 year old, tubo-ovarian abscess (kr) CONTINUED ON NEXT PAGE RUN DATE: 12/21/18 [facility] PAGE 2 RUN TIME: 1410 Specimen Inquiry RUN USER: INTERFACE SPEC #: [id number] PATIENT: SOHAIL THOMPSON #[id number] (Continued) FINAL DIAGNOSIS Epiploica with abscess, excision: [...] adhesions, and ovarian serosal abscesses CPT code(s): 85053 , [address] [facility] 12/21/18 GROSS DESCRIPTION ANATOMIC SOURCE OF [...] Specimen Inquiry RUN USER: INTERFACE SPEC #: [id number] PATIENT: SOHAIL HTOMPSON #[id number] (Continued) GROSS DESCRIPTION (Continued) areas of induration, fibrosis and possible fat necrosis. Section code: B1 - donpurnima, B2 through B6 - sales representative leather goods sections of bowel with possible diverticular disease, [...] - serosal adhesions, C5 and C6 - sales representative leather goods sections of small adnexa, C7 through C9 - sales representative leather goods sections of large adnexa. diana 12/20/18 @ 1125 Signed Diana James MD 12/21/18 1323 END OF REPORT [id number] 13:17:00 Test Item Value Reference Range Interpretation Comments GLUBED (test code = GLUBED) 89 mg/dL 65-110 N - XR ABDOMEN [id number] 10:26:00 Patient Name: SOHAIL THOMPSON Unit No: [id number] EXAMS: CPT CODE: [id number] XR ABDOMEN 2V 91758 ABDOMINAL RADIOGRAPHS-ERECT AND SUPINE COMPARISON: CT abdomen [...] (1026) t.SDR.AJ13 Orig Print D/T: S: 12/21/2018 (1024) [facility] NAME: SOHAIL THOMPSON Radiology Department PHYS: Arpan Wallace MD [address] : 1990 AGE: 28 SEX: F [place], [place] [address] LOC: Morteza.2650 A PHONE #: [phone] EXAM DATE: 12/21/2018 STATUS: ADM INFAX #: [phone] RAD NO: Page 1 Signed [id number] 06:40:00 Test Item Value Reference Range Interpretation Comments GLUBED (test code = GLUBED) 117 mg/dL 65-110 H [id number] 00:48:00 Test Item Value Reference Range Interpretation Comments GLUBED (test code = GLUBED) 153 mg/dL 65-110 H [id number] 18:32:00 Test Item Value Reference Range Interpretation Comments GLUBED (test code = GLUBED) 83 mg/dL 65-110 N [id number] 12:58:00 Test Item Value Reference Range Interpretation Comments GLUBED (test code = GLUBED) 153 mg/dL 65-110 H CHEMISTRY 7 [id number] 05:45:00 Test Item Value Reference Range Interpretation [...] CA) 8.1 mg/dL 8.4-10.2 L CBC W/AUTO [id number] 05:30:00 Test Item Value Reference Range Interpretation [...] REQUIRED (test NORMAL NORMAL code = PLTMR) [id number] 00:18:00 Test Item Value Reference Range Interpretation Comments GLUBED (test code = GLUBED) 107 mg/dL 65-110 N [id number] 18:27:00 Test Item Value Reference Range Interpretation Comments GLUBED (test code = GLUBED) 144 mg/dL 65-110 H [id number] 12:13:00 Test Item Value Reference Range Interpretation Comments GLUBED (test code = GLUBED) 126 mg/dL 65-110 H [id number] 08:47:00 Test Item Value Reference Range Interpretation Comments MAGNESIUM (test code = MAG) 1.8 mg/dL 1.8-2.4 N Comments to [employer]: DO ON BLOOD IN LAB-- DRAWN THIS AMSpecimen Comment: BLOOD IN LAB.CHEMISTRY 7 [id number] 05:19:00 Test Item Value Reference Range Interpretation [...] CA) 7.5 mg/dL 8.4-10.2 L CBC W/AUTO [id number] 05:06:00 Test Item Value Reference Range Interpretation [...] REQUIRED (test NORMAL NORMAL code = PLTMR) [id number] 00:47:00 Test Item Value Reference Range Interpretation Comments GLUBED (test code = GLUBED) 159 mg/dL 65-110 H [id number] 21:14:00 Test Item Value Reference Range Interpretation Comments C-PEPTIDE (test code 2.9 ng/mL 1.1-4.4 C-Pepti de reference = CPEP) interval is for fasting patients.Perfor med At: HD [facility] [id number] [place], [place] [id number] kelechi Rosa MD Ph:[phone] [id number] 21:14:00 Test Item Value Reference Range Interpretation Comments INSULIN (test code = 22.1 uIU/mL 2.6-24.9 Perform ed At: HD INS) [facility] [address] [place], [place] [id number] Rosa MD Ph:[phone] [id number] 18:25:00 Test Item Value Reference Range Interpretation Comments GLUBED (test code = GLUBED) 134 mg/dL 65-110 H [id number] 12:38:00 Test Item Value Reference Range Interpretation Comments GLUBED (test code = GLUBED) 137 mg/dL 65-110 H COMPREHENSIVE METABOLIC [id number] 05:57:00 Test Item Value Reference Range Interpretation [...] 69 units/L 46-116 N code = ALKP) [id number] 05:57:00 Test Item Value Reference Range Interpretation Comments MAGNESIUM (test code = 1.0 mg/dL 1.8-2.4 L RESUL TS CALLED TO MAG) ZAC TURK D BACK & CONFIRMED? Y. BY F.LAB.LDT 12/18 0557. RESULTS VERIFIED BY REP EAT ANALYSIS CBC W/AUTO [id number] 05:13:00 Test Item Value Reference Range Interpretation [...] NORMAL NORMAL REQUIRED (test code = PLTMR) [id number] 00:21:00 Test Item Value Reference Range Interpretation Comments GLUBED (test code = GLUBED) 280 mg/dL 65-110 H CHEMISTRY 7 [id number] 23:10:00 Test Item Value Reference Range Interpretation [...] CA) 7.1 mg/dL 8.4-10.2 L CBC W/AUTO [id number] 18:05:00 Test Item Value Reference Range Interpretation Comments WHITE BLOOD CELL 28.6 K/mm3 6.6-12.1 HH RESULTS GILBERT IFIED BY (test code = WBC) REPEAT KEIRA LYSISRESULTS CALLED TO KARINA VILLALTA .READ BACK & CO NFIRMED? Y.BY FIzaLAB.RV 1 02/16/18 3100. RED BLOOD CELL (test 5.23 M/mm3 3.45-5.01 [...] NORMAL REQUIRED (test code = PLTMR) WBC [id number] 18:05:00 Test Item Value Reference Range Interpretation [...] code = NORMAL NORMAL PLTMORPH) CHEMISTRY 7 [id number] 17:48:00 Test Item Value Reference Range Interpretation [...] CA) 7.5 mg/dL 8.4-10.2 L CBC W/AUTO [id number] 17:32:00 Test Item Value Reference Range Interpretation [...] NORMAL REQUIRED (test code = PLTMR) WBC [id number] 17:32:00 Test Item Value Reference Range Interpretation Comments SEGMENTED NEUTROPHILS (test code = SEG) % 56.5-79.4 LYMPHOCYTE (test code = LYMPH) % 20-40 CBC W/AUTO [id number] 17:32:00 Test Item Value Reference Range Interpretation [...] NORMAL REQUIRED (test code = PLTMR) WBC [id number] 17:32:00 Test Item Value Reference Range Interpretation Comments SEGMENTED NEUTROPHILS (test code = SEG) % 56.5-79.4 LYMPHOCYTE (test code = LYMPH) % 20-40 [id number] 14:59:00 Test Item Value Reference Range Interpretation Comments GLUBED (test code = GLUBED) 288 mg/dL 65-110 H [id number] 06:04:00 Test Item Value Reference Range Interpretation Comments GLUBED (test code = GLUBED) 201 mg/dL 65-110 H URINALYSIS [id number] 03:54:00 Test Item Value Reference Range Interpretation [...] SAMPLE: CLEAN CATCHComment URINE WITH CULTUREUR HCG [id number] 03:54:00 Test Item Value Reference Range Interpretation [...] URINE SAMPLE: CLEAN CATCHComment URINE WITH CULTUREURINALYSIS [id number] 03:38:00 Test Item Value Reference Range Interpretation [...] NEGATIVE UA PH DIPSTICK (test code = EDLMY) 5-9 UA PROTEIN DIPSTICK (test code = PROU) NEGATIVE UA UROBILINIOGEN DIPSTICK (test code = mg/dL NEG URO) UA NITRITE DIPSTICK (test code = SANDRITA) NEGATIVE UA LEUKOCYTE ESTERASE DIPSTICK (test NEG code = LEUU) UA WBC (test code = WBCU) #/hpf NONE SEEN UA EPITHELIAL CELLS (test code = EPIU) #/HPF RARE-FEW URINE SAMPLE: CLEAN CATCHComment URINE WITH CULTUREUR HCG [id number] 03:38:00 Test Item Value Reference Range Interpretation [...] tested. URINE SAMPLE: CLEAN CATCHComment URINE WITH [id number] 22:09:00 Test Item Value Reference Range Interpretation Comments GLUBED (test code = 263 mg/dL 65-110 H Phsician Notified GLUBED) [id number] 17:08:00 Test Item Value Reference Range Interpretation Comments GLUBED (test code = GLUBED) 286 mg/dL 65-110 H [id number] 15:28:00 Test Item Value Reference Range Interpretation Comments CREATININE (test code = CREAT) 0.9 mg/dL 0.5-1.0 N IS THIS A ONCE DAILY SINGLE DOSE? YESDATE OF LAST DOSE: 12/16/18TIME OF LAST DOSE: [id number] 15:28:00 Test Item Value Reference Range Interpretation Comments GENTAMICIN (test code 0.8 mcg/mL 0-14 N Adult normal range = GENT) for once daily dose of Gentamicin m ay beup to 24 mcg/ mL. Gentamicin resu lts must be correla darshan withthe time th e dose was administere d. IS THIS A ONCE DAILY SINGLE DOSE? YESDATE OF LAST DOSE: 12/16/18TIME OF LAST DOSE: [id number] 13:24:00 Test Item Value Reference Range Interpretation Comments GLUBED (test code = GLUBED) 274 mg/dL 65-110 H HCG [id number] 12:13:00 Test Item Value Reference Range Interpretation [...] THE ROOM AT THIS TIME. PHLEB/RBCHEMISTRY 7 [id number] 12:11:00 Test Item Value Reference Range Interpretation [...] IN THE ROOM AT THIS TIME. @ [address]VG TRY 1018 AM. PHLEB/RBCBC W/AUTO [id number] 11:40:00 Test Item Value Reference Range Interpretation [...] PLTMR) COME BACK LATER- CT ABD PELVIS [id number] 11:01:00 Patient Name: SOHAIL THOMPSON Unit No: [id number] EXAMS: CPT CODE: [id number] CT ABD PELVIS W/CONT 75301 Exam: CT scan of the abdomen and [...] wall demonstrates no significant abnormalities. IMPRESSION: [facility] [place] [facility] NAME: SOHAIL THOMPSON Radiology Department PHYS: Arpan Wallace MD [address] : 1990 AGE: 28 SEX: F [place], [place] [address] LOC: F.4672 A PHONE #: [phone] EXAM DATE: 12/16/2018 STATUS: ADM IN FAX #: [phone] RAD NO: Page 1 Signed Report 1 Patient Name: SOHAIL THOMPSON Unit No: [id number] EXAMS: CPT CODE: [id number] CT ABD PELVIS W/CONT 50293 <Continued> Bilateral adnexal masses as described above. The patient gives a history of abscess drainage at [facility] October 05, 2018. She describes having drains and drainage bags on either side. The findings in the adnexal region may be sequela of this procedure. Prior images have been requested. at 1101 Reported and signed by: Charissa Arreola MD CC: Lianet Weir Technologist: RT Adalberto, CT CTDI: 21.83 DLP: [phone] Trnscrbd D/ (1101) t.SDR.CER [facility] [place] [facility] NAME: SOHAIL THOMPSON Radiology Department PHYS: Arpan Wallace MD [address] : 1990 AGE: 28 SEX: F [place] [address] LOC: F.4672 A PHONE #: [phone] EXAM DATE: 12/16/2018 STATUS: ADM IN FAX #:[phone] RAD NO: Page 2 Signed Report 1 Patient Name: SOHAIL THOMPSON Unit No: [id number] EXAMS: CPT CODE: [id number] CT ABD PELVIS W/CONT 93717 <Continued> Orig Print D/T: S: 12/16/2018 (0774) [facility] NAME: SOHAIL THOMPSON Radiology Department PHYS: Arpan Wallace MD[address] : 1990 AGE: 28 SEX: F [place] [address] LOC: F.4672 A PHONE #: [phone] EXAM DATE: 12/16/2018 STATUS: ADM IN FAX #: [phone] RAD NO: Page 3 Signed Report 1GLUBED 2018-12-16 07:07:00 Test Item Value Reference Range Interpretation Comments GLUBED (test code = GLUBED) 241 mg/dL 65-110 H CREATINE KINASE (CK)2018-12-15 19:52:00 Test Item Value Reference Range Interpretation Comments CREATINE KINASE (CK) (test code = 60 Units/L 26-192 N CK) [id number] 16:55:00 Test Item Value Reference Range Interpretation Comments GLUBED (test code = 339 mg/dL 65-110 H Phsician Notified GLUBED) GLYCOSYLATED HEMOGLOBIN [id number] 11:01:00 Test Item Value Reference Range Interpretation [...] H (test code = MBG) COMPREHENSIVE METABOLIC [id number] 11:01:00 Test Item Value Reference Range Interpretation [...] units/L 46-116 N code = ALKP) T4 [id number] 11:01:00 Test Item Value Reference Range Interpretation Comments T4 FREE (test code = T4F) 1.24 ng/dL 0.76-1.46 N THYROID STIMULATING [id number] 11:01:00 Test Item Value Reference Range Interpretation [...] fructosaminesho uld be considered for these patients. [id number] 10:19:00 Test Item Value Reference Range Interpretation Comments GLUBED (test code = 290 mg/dL 65-110 H Phsician Notified GLUBED) COMPREHENSIVE METABOLIC [id number] 07:23:00 Test Item Value Reference Range Interpretation [...] units/L 46-116 N code = ALKP) T4 [id number] 07:23:00 Test Item Value Reference Range Interpretation Comments T4 FREE (test code = T4F) 1.24 ng/dL 0.76-1.46 N THYROID STIMULATING [id number] 07:23:00 Test Item Value Reference Range Interpretation Comments THYROID STIMULATING 3.27 0.36-3.74 N Test Per formed in HORMONE (test code = MicroIn ternational Units/mL TSH) GLYCOSYLATED HEMOGLOBIN (HA1C)2018-12-15 07:23:00 Test Item Value Reference Range Interpretation Comments GLYCOSYLATED HEMOGLOBIN (HA1C) (test code = GLYHGB) [id number] 06:04:00 Test Item Value Reference Range Interpretation Comments GLUBED (test code = 308 mg/dL 65-110 H Phsician Notified GLUBED) COMPREHENSIVE METABOLIC [id number] 05:10:00 Test Item Value Reference Range Interpretation [...] 46-116 N code = ALKP) THYROID STIMULATING [id number] 05:10:00 Test Item Value Reference Range Interpretation Comments THYROID STIMULATING 3.27 0.36-3.74 N Test Per formed in HORMONE (test code = MicroIn ternational Units/mL TSH) GLYCOSYLATED HEMOGLOBIN (HA1C)2018-12-15 05:10:00 Test Item Value Reference Range Interpretation Comments GLYCOSYLATED HEMOGLOBIN (HA1C) (test code = GLYHGB) LACTIC [id number] 04:53:00 Test Item Value Reference Range Interpretation Comments LACTIC ACID (test code = LACT) 1.5 MMOL/L 0.5-2.2 N CBC W/AUTO [id number] 04:30:00 Test Item Value Reference Range Interpretation [...] code = PLTMR) - CT HEAD/BRAIN W/O [id number] 04:27:00 Patient Name: SOHAIL THOMPSON Unit No: [id number] EXAMS: CPT CODE: [id number] CT HEAD/BRAIN W/O CONT 09076 EXAM: CT, CT HEAD/BRAIN W/O CONTRAST; 12/15/2018, [...] acute hemorrhage or subacute stroke. SL: BRANDIN [facility] NAME: SOHAIL THOMPSON Radiology Department PHYS: Lianet Morrow MD [address] : 1990 AGE: 28 SEX: F [place] [address] LOC: F.4672 A PHONE #: [phone] EXAM DATE: 12/15/2018 STATUS: ADM IN FAX #: [phone] RAD NO: Page 1 Signed Report 1 Patient Name: SOHAIL THOMPSON UnitNo: [id number] EXAMS: CPT CODE: [id number] CT HEAD/BRAIN W/O CONT 64327 <Continued> at 0427 Reported and signed by: Paul Barreto M.D. CC: Linaet Weir Technologist: JENNI MEDINA, RT CTDI: 53.12 DLP: 879.86 Trnscrbd D/ (0427) [email or web address] [facility] NAME:SOHAIL THOMPSON Radiology Department PHYS: Lianet Morrow MD [address] : 1990 AGE: 28 SEX: F [place] [address] LOC: Morteza.4672 A PHONE #: [phone] EXAM DATE: 12/15/2018 STATUS: ADM IN FAX #: [phone] RAD NO: Page 2 Signed Report 1 Patient Name: SOHAIL THOMPSON Unit No: [id number] EXAMS: CPT CODE: [id number] CT HEAD/BRAIN W/O CONT 71494 <Continued> Orig Print D/T: S: 12/15/2018 (0430) [facility] NAME: SOHAIL THOMPSON Radiology DepartmentPHYS: Lianet Morrow MD [address] : 1990 AGE: 28 SEX: F [place] [address] LOC: F.4672 A PHONE #: [phone] EXAM DATE: 12/15/2018 STATUS: ADM IN FAX #: [phone] RAD NO: Page 3 Signed Report 1
[2021-08-01 22:07] LABS: Absolute Lymphocytes (CBC) 2.6 K/uL (0.7-4.9); Hematocrit 42.8 % (36.0-45.0); Lymphocytes % 28.7 % (15.3-44.8); MPV 9.7 fL (7.6-11.3)
[2021-08-01] MEDS ORDERED: NA CHLORIDE 0.9% 1,000 ML ONE ×2 (22:12→23:30)
[2021-08-01 22:28] LABS: Potassium 3.9 mmol/L (3.5-5.1)
[2021-08-01] MEDS ORDERED: INSULIN -REGULAR HUMAN 50 UNIT/0.5 ML ML ONE (23:30)
--- NOTE | 2021-08-02 00:13 | EDPHYS ---
Physician Documentation [facility] Name: Stacy Islas Age: 30 yrs Sex: Female : 1990 Arrival Date: 08/01/2021 Time: 21:04 Bed 12 Private MD: ED Physician Bubba Nolan HPI: 08/01 21:43 This 30 yrs old Female presents to ER via Ambulatory with complaints of pm1 Numbness - r thigh. 21:43 The patient presents to the emergency department with paresthesias of the. Onset: The pm1 symptoms/episode began/occurred today. Associated signs and symptoms: Pertinent negatives: Low back pain, weakness, focal weakness. Severity of symptoms: in the emergency department the symptoms are unchanged Pain is currently a 0 / 10. The patient has not recently seen a physician. 30-year-old patient presenting to ER with complaints of numbness to her right lateral aspect of thigh. Patient with history of diabetes and is presenting because she is concerned that her blood sugar might be causing the symptoms. Patient does take insulin and reports poor control. 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 - Social history:: Smoking status: Patient denies any tobacco usage or history of. ROS: 21:43 Constitutional: Negative for fever, chills, and weight loss, Cardiovascular: Negative pm1 for chest pain, palpitations, and edema, Respiratory: Negative for shortness of breath, cough, wheezing, and pleuritic chest pain, MS/Extremity: Negative for injury and deformity, Skin: Negative for injury, rash, and discoloration. 21:43 Neuro: Positive for numbness, of the lateral aspect of right thigh. 21:43 All other systems are negative. Exam: 21:43 Constitutional: This is a well developed, well nourished patient who is awake, alert, pm1 and in no acute distress. Head/Face: Normocephalic, atraumatic. 21:43 Skin: Warm, dry with normal turgor. Normal color with no rashes, no lesions, and no evidence of cellulitis. MS/ Extremity: Pulses equal, no cyanosis. Neurovascular intact. Full, normal range of motion. 21:43 Cardiovascular: Exam negative for acute changes, Rate: normal, Rhythm: regular, Pulses: no pulse deficits are appreciated, Heart sounds: normal. 21:43 Respiratory: Exam negative for acute changes, respiratory distress, shortness of breath. 21:43 Neuro: Orientation: is normal, Mentation: is normal, Motor: is normal, moves all fours, Gait: is steady, at a normal pace, without difficulty. Vital Signs: 21:16 BP 100 / 83 RA Sitting (man/lg); Pulse 84 RA; Resp 20 S; Temp 98.6(O); Pulse Ox 100% on vc1 R/A; Weight 103.42 kg; Height 5 ft. 3 in. (160.02 cm); Pain 02/18; 23:00 BP 102 / 63; Pulse 78; Resp 16; Pulse Ox 96% on R/A; jb4 21:16 Body Mass Index 40.39 (103.42 kg, 160.02 cm) vc1 MDM: 21:31 Patient medically screened. pm1 06 00:12 Data reviewed: vital signs. Data interpreted: Pulse oximetry: on room air is 96 %. pm1 Interpretation: normal. Counseling: I had a detailed discussion with the patient and/or guardian regarding: the historical points, exam findings, and any diagnostic results supporting the discharge/admit diagnosis, lab results, radiology results, the need for outpatient follow up, to return to the emergency department if symptoms worsen or persist or if there are any questions or concerns that arise at home. 00:43 ED course: Patient reports improvement with her paresthesia with improvement in glucose pm1 level. Patient instructed further to take management of her diabetes to prevent future problems associated with diabetic neuropathy. 08/01 21:43 Order name: CBC with Diff; Complete Time: 22:34 pm1 08/01 21:43 Order name: BMP; Complete Time: 22:34 pm1 08/01 21:43 Order name: Lumbar Spine (3 Views) XRAY pm1 08/01 21:43 Order name: Extremity Venous Uni Ltd US pm1 08/01 21:43 Order name: Lower Extremity Artery Uni Ltd pm1 08/02 00:23 Order name: Glucose, Ancillary Testing; Complete Time: 00:43 EDMS 08/01 21:43 Order name: IV Saline Lock; Complete Time: 21:55 pm1 Administered Medications: 08/01 22:09 Drug: NS 0.9% 1000 ml Route: IV; Rate: 1000 ml; Site: right antecubital; jb4 23:00 Follow up: Response: No adverse reaction; IV Status: Completed infusion; IV Intake: jb4 1000ml 23:29 Drug: Insulin Regular Human 10 units {Co-Signature: kd3 (Radha Butler RN).} Route: jb4 IVP; Site: right antecubital; 08/02 00:16 Follow up: Response: No adverse reaction; Blood sugar is lowered jb4 08/01 23:30 Drug: NS 0.9% 1000 ml Route: IV; Rate: 1000 ml; Site: right antecubital; jb4 08/02 00:26 Follow up: Response: No adverse reaction; IV Status: Order to discontinue infusion; IV jb4 Intake: 800ml Disposition Summary: 08/02/21 00:13 Discharge Ordered Location: Home pm1 Problem: new pm1 Symptoms: have improved pm1 Condition: Stable pm1 Diagnosis - Paresthesia of skin pm1 - Hyperglycemia, unspecified pm1 Followup: pm1 - With: Emergency Department - When: As needed - Reason: Worsening of condition Followup: pm1 - With: Private Physician - When: 2 - 3 days - Reason: Recheck today's complaints, Continuance of care, Re-evaluation by your physician Discharge Instructions: - Discharge Summary Sheet pm1 - Hyperglycemia pm1 - Paresthesia pm1 - Blood Glucose Monitoring, Adult pm1 - Diabetes Mellitus and Exercise pm1 - Peripheral Neuropathy pm1 - Diabetes Mellitus and Nutrition, Adult pm1 Forms: - Medication Reconciliation Form pm1 - Thank You Letter pm1 - Antibiotic Education pm1 - Prescription Opioid Use pm1 Signatures: Dispatcher [employer] EDMS Dominik Acuna, STEFANY FISHER DIP NET pm1 Gigi Johnston, RN RN jb4 Calcote, Lilliam, RN RN vc1 Radha Butler RN kd3
--- NOTE | 2021-08-02 00:13 | ER ---
Nurse's Notes [facility] Name: Stacy Islas Age: 30 yrs Sex: Female : 1990 Arrival Date: 08/01/2021 Time: 21:04 Bed 12 Private MD: Diagnosis: Paresthesia of skin;Hyperglycemia, unspecified Presentation: 08/01 21:16 Chief complaint: Patient states: "My right leg from above my knee to my thigh is numb. vc1 I am diabetic so I just wanted to make sure everything is ok.". Coronavirus screen: Vaccine status: Patient reports being unvaccinated. At this time, the client does not indicate any symptoms associated with coronavirus-19. Ebola Screen: No symptoms or risks identified at this time. Initial Sepsis Screen: Does the patient meet any 2 criteria? No. Patient's initial sepsis screen is negative. Does the patient have a suspected source of infection? No. Patient's initial sepsis screen is negative. Risk Assessment: Do you want to hurt yourself or someone else? Patient reports no desire to harm self or others. Onset of symptoms was August 01, 2021 at 09:00. 21:16 Method Of Arrival: Ambulatory vc1 21:16 Acuity: VENTURA 3 vc1 Triage Assessment: 21:19 General: Appears in no apparent distress. Behavior is calm, cooperative, appropriate vc1 for age. Pain: Complains of pain in right leg Pain radiates to right quadriceps Pain currently is 1 out of 10 on a pain scale. EENT: No deficits noted. Neuro: Level of Consciousness is awake, alert, obeys commands, Oriented to person, place, time, situation, Appropriate for age. Cardiovascular: No deficits noted. Respiratory: Airway is patent Respiratory effort is even, unlabored, Respiratory pattern is regular, symmetrical. GI: No deficits noted. : No deficits noted. Derm: Reports tingling. Musculoskeletal: Reports numbness in lateral aspect of right thigh and right quadriceps. POWER ORIGINATOR: 21:21 LMP N/A - Hysterectomy vc1 Historical: - Allergies: 21:18 tazobactam; vc1 21:18 Zosyn; vc1 - Home Meds: 21:18 Lantus Sub-Q [Active]; Novolog U-100 Insulin aspart 100 unit/mL Sub-Q soln [Active]; vc1 metformin 500 mg Oral tab 1 tab 2 times per day [Active]; - PMHx: 21:18 Anxiety; Diabetes - IDDM; vc1 - PSHx: 21:18 hysterectomy; section; cellulitis I\\T\\D; vc1 - Immunization history:: Adult Immunizations up to date, Client reports having NOT received the Covid vaccine. - Social history:: Smoking status: Patient denies any tobacco usage or history of. Screenin:28 Abuse screen: Denies threats or abuse. Nutritional screening: No deficits noted. jb4 Tuberculosis screening: No symptoms or risk factors identified. Fall Risk None identified. Assessment: 21:28 General: Appears in no apparent distress. comfortable, Behavior is calm, cooperative, jb4 appropriate for age. Pain: Denies pain. Neuro: Level of Consciousness is awake, alert, obeys commands, Oriented to person, place, time, situation, Reports numbness in lateral aspect of right thigh. Cardiovascular: Patient's skin is warm and dry. Respiratory: Airway is patent Respiratory effort is even, unlabored, Respiratory pattern is regular, symmetrical. Derm: Skin is intact, Skin is pink, warm \\T\\ dry. Musculoskeletal: Circulation, motion, and sensation intact. Range of motion: intact in all extremities. 23:00 Reassessment: Patient appears in no apparent distress at this time. Patient and/or jb4 family updated on plan of care and expected duration. Pain level reassessed. Patient is alert, oriented x 3, equal unlabored respirations, skin warm/dry/pink. 08/02 00:25 Reassessment: Patient appears in no apparent distress at this time. Patient and/or jb4 family updated on plan of care and expected duration. Pain level reassessed. Patient is alert, oriented x 3, equal unlabored respirations, skin warm/dry/pink. Vital Signs: 08/01 21:16 BP 100 / 83 RA Sitting (man/lg); Pulse 84 RA; Resp 20 S; Temp 98.6(O); Pulse Ox 100% on vc1 R/A; Weight 103.42 kg; Height 5 ft. 3 in. (160.02 cm); Pain 02/18; 23:00 BP 102 / 63; Pulse 78; Resp 16; Pulse Ox 96% on R/A; jb4 21:16 Body Mass Index 40.39 (103.42 kg, 160.02 cm) vc1 ED Course: 21:04 Patient arrived in ED. as 21:18 Triage completed. vc1 21:21 Arm band placed on right wrist. vc1 21:25 Gigi Johnston, JEFF is Primary Nurse. jb4 21:28 Patient has correct armband on for positive identification. Bed in low position. Call jb4 light in reach. Side rails up X 1. 21:29 Dominik Acuna NP is PHCP. pm1 21:29 Bubba Nolan MD is Attending Physician. pm1 21:49 Initial lab(s) drawn, by ca, sent to lab. Inserted saline lock: 18 gauge in right jb4 antecubital area, using aseptic technique. Blood collected. 21:55 BMP Sent. jb4 21:55 CBC with Diff Sent. jb4 21:59 Lumbar Spine (3 Views) XRAY In Process Unspecified. EDMS 22:33 Notified Nurse Practitioner and/or Physician Yarder Engineer of Glucose 438. lp1 22:38 Extremity Venous Uni Ltd US In Process Unspecified. EDMS 22:38 Lower Extremity Artery Uni Ltd US In Process Unspecified. EDMS 06 00:25 No provider procedures requiring assistance completed. IV discontinued, intact, jb4 bleeding controlled, No redness/swelling at site. Pressure dressing applied. Administered Medications: 08/01 22:09 Drug: NS 0.9% 1000 ml Route: IV; Rate: 1000 ml; Site: right antecubital; jb4 23:00 Follow up: Response: No adverse reaction; IV Status: Completed infusion; IV Intake: jb4 1000ml 23:29 Drug: Insulin Regular Human 10 units {Co-Signature: kd3 (Radha Butler RN).} Route: jb4 IVP; Site: right antecubital; 08/02 00:16 Follow up: Response: No adverse reaction; Blood sugar is lowered jb4 08/01 23:30 Drug: NS 0.9% 1000 ml Route: IV; Rate: 1000 ml; Site: right antecubital; jb4 08/02 00:26 Follow up: Response: No adverse reaction; IV Status: Order to discontinue infusion; IV jb4 Intake: 800ml Medication: 08/01 21:28 VIS not applicable for this client. jb4 Intake: 23:00 IV: 1000ml; Total: 1000ml. jb4 08/02 00:26 IV: 800ml; Total: 1800ml. jb4 Outcome: 00:13 Discharge ordered by MD. pm1 00:25 Discharged to home ambulatory. jb4 00:25 Condition: stable 00:25 Discharge instructions given to patient, Instructed on discharge instructions, follow up and referral plans. Demonstrated understanding of instructions, follow-up care. 00:27 Patient left the ED. jb4 Signatures: Dispatcher [employer] Nayla Ku Laura, RN RN lp1 Dominik Acuna, PLUG STITCHER PLUG STITCHER pm1 Gigi Johnston, JEFF RN jb4 Lilliam Hodge RN RN vc1 Radha Butler RN kd3
[2021-08-02 00:41] VITALS: TEMP 98.6
[2021-08-02 00:43] VITALS: BP 102/63; O2SAT 96
--- NOTE | 2021-08-02 08:16 | RAD REPORT ---
EXAM DESCRIPTION: RAD - Lumbar Spine 3 Views - 08/01/2021 9:57 pm CLINICAL HISTORY: RADICULOPATHY Radiculopathy COMPARISON: No comparisons FINDINGS: Vertebral body heights appear maintained. No compression fracture noted. Disc spaces are m aintained. No spondylolysis or spondylolisthesis. IMPRESSION: Negative study.
--- NOTE | 2021-08-02 13:20 | RAD REPORT ---
EXAM DESCRIPTION: Lower Extremity Artery Uni Ltd 08/01/2021 11:08 PM CDT CLINICAL HISTORY: 30 years, Female, NUMBNESS/TINGLING Lower Extremity Artery Uni Ltd COMPARISON: None FINDINGS: Multiple grayscale images and duplex Doppler ultrasound of the right arterial system was p erformed with color flow, spectral waveform and peak systolic velocities. There is no significant atheromatous plaque and/or occlusion. Right common femoral artery peak systolic velocity of 86 cm/sec. triphasic waveform Right superficial femoral artery mid aspect peak systolic velocity of 94 cm/sec. triphasic waveform Right popliteal artery peak systolic velocity of 54 cm/sec. triphasic waveform Right posterior tibial artery peak systolic velocity of 76 cm/sec. triphasic waveform Right dorsalis pedis artery peak systolic velocity of 92 cm/sec. biphasic waveform IMPRESSION: No evidence of significant right lower extremity arterial disease. Electronically signed by: Patrick Carcamo MD 08/01/2021 11:10 PM CDT Due to temporary technical issues with the PACS/Fluency reporting system, reports are being signed by the in house radiologist without review as a courtesy to ensure prompt reporting. The interpreting r adiologist is fully responsible for the content of the report.
--- NOTE | 2021-08-02 13:24 | RAD REPORT ---
EXAM DESCRIPTION: Extremity Venous Uni Ltd CLINICAL HISTORY: 30 years Female SWELLING Extremity Venous Uni Ltd COMPARISON: None. TECHNIQUE: Duplex and color Doppler imaging performed to evaluate the extremity deep venous structur es. Compression imaging and augmentation imaging performed. Grayscale, color Doppler and gated duplex imaging with spectral analysis were performed. FINDINGS: No thrombus is identified in the deep venous structures imaged. There is normal flow, compressibility, and augmentation throughout. IMPRESSION: No DVT is identified. Electronically signed by: Darío Moore 08/01/2021 10:56 PM CDT Due to temporary technical issues with the PACS/Fluency reporting system, reports are being signed by the in house radiologist without review as a courtesy to ensure prompt reporting. The interpreting r adiologist is fully responsible for the content of the report.
== END 2021-08-02 00:27 | disposition home or self-care (01) ==
LOC: ER 21:02
DX: E11.65 Type 2 diabetes mellitus with hyperglycemia (principal); F41.9 Anxiety disorder, unspecified; Z79.4 Long term (current) use of insulin; Z88.8 Allergy status to other drugs, medicaments and biological substances
CPT/HCPCS: 96361; 85025; 80048; 36415; 82947; 72100; 93926; 93971; 96374; 99284; J1815; J7030 ×2

== ENCOUNTER 2022-02-05 18:54 | Emergency (ER) | payer OTHER ==
--- OUTSIDE RECORDS SUMMARY | 2022-02-05 19:07 | XMS REPORT | Continuity of Care Document ---
:1990 Author Organization [facility] t Address [address] [place] [address] Care Team Providers Name Role Phone RADHA DRUMMOND Primary Care Physician Unavailable Marcela Roche Attending Clinician Unavailable ELZBIETA GOMEZ Attending Clinician Unavailable JOSSELYN SANCHEZ Attending Clinician Unavailable RADHA DRUMMOND Attending Clinician Unavailable RADHA DRUMMOND Attending Clinician Unavailable Elzbieta Gomez MD Attending Clinician [place], Isidoro Lnae Attending Clinician Unavailable Doctor Unassigned, [place] Attending Clinician Unavailable Rita Baron MD Attending Clinician GLADYS RAMOS Attending Clinician Unavailable MICHEAL CALLES Attending Clinician Unavailable Micheal Calles PA-C Attending Clinician Unknown, Attending Attending Clinician Unavailable DENAE ROTH Attending Clinician Unavailable Denae Roth MD Attending Clinician RITA BARON Attending Clinician Unavailable ANGELITA SAAVEDRA Attending Clinician Unavailable Jose C RN MENTAL HEALTH, Angelita Attending Clinician Josselyn Regalado Attending Clinician Karin Adan OD Attending Clinician Richard CORONEL, Gladys Attending Clinician LYDIA BENNETT Attending Clinician Unavailable Eve Salagdo MD Attending Clinician FATEMEH HERZOG Attending Clinician Unavailable Olya RN MENTAL HEALTH, Fatemeh Attending Clinician EVE SALGADO Attending Clinician Unavailable TRUDY GUDINO Attending Clinician Unavailable Trudy Burnham Attending Clinician Vince AGUILAR, Idalia Rosa Attending Clinician Unavailable Tylor Devlin MD Attending Clinician Linette Cook Attending Clinician LINETTE WILKINSON Attending Clinician Unavailable KARIN ADAN Attending Clinician Unavailable 2, [facility] Attending Clinician Unavailable TYLOR DEVLIN Attending Clinician Unavailable TYLOR DEVLIN Attending Clinician Unavailable JC MASCORRO Attending Clinician Unavailable BETHEL DOHERTY Attending Clinician Unavailable LOGAN HUBER Attending Clinician Unavailable LOGAN HUBER Attending Clinician Unavailable SEUN POST Attending Clinician Unavailable LETTY BELLO Attending Clinician Unavailable RADHA AVITIA Attending Clinician Unavailable MICKI KNOTT Attending Clinician Unavailable JANE TELLO Attending Clinician Unavailable MARÍA TOLEDO Attending Clinician Unavailable JOESPH MULLINS Admitting Clinician Unavailable Payers Payer Name Policy Type Policy Number Effective Date Expiration Date Paul patel [place] CHILDREN [id number] 2021 STAR 00:00:00 [place] [address] [id number] [place] [id number] [facility] [place] [id number] [facility] HE[facility] PLAN [facility] [place] [id number] [facility] [place] [id number] Common Sp [facility] HEALTH PLAN [facility] [place] [id number] [facility] HEALTH PLAN [facility] [place] [id number] [facility] [place]1 [id number] [facility] PLAN [facility] [place] [facility] [id number] [facility] [place] [id number] Common Sp [facility]anna HEALTH PLAN - [facility] MEDICAID MC [id number] 2019 [facility] 00:00:00 [facility] MEDICAID [id number] 2019 [facility] 00:00:00 [facility] Problems Condition Condition Condition Status Onset Resolution Last Treating Co mments Source Name Details Category Date Date Treatment Clinician Date Pain of Pain of Disease Active Univers left hand left hand 2-04 ity of 00:00: [address] Folliculit Folliculit Disease Active U nivers is is 2-04 ity of 00:: [address] NAFLD NAFLD Disease Active Univers (nonalcoho (nonalcoho 09-10 [place] fatty [place] disease) disease) Branch Metabolic Metabolic Disease Active Uni vers syndrome syndrome 8 ity of 00:00: [address] PCOS PCOS Disease Active Univers (polycysti (polycysti [place] c ovarian c ovarian [place] syndrome) syndrome) [facility] Branch Hyperglyce Hyperglyce Problem Active C ommon manuel manuel [facility] Hyperlipid Hyperlipid Problem Active C ommon emia emia [facility] Allergic Allergic Problem Active Commo n rhinitis rhinitis [facility] [id number] Uncontroll Problem Active Co mmon ed type 2 [facility] diabetes - CHI mellitus [facility] complicati Medica l on, Center without long-term current use of insulin Family Family Problem Active Common planning planning Spirit education, education, - guidance, guidance, and and [facility] counseling counseling [facility] [id number] Abnormal Problem Active Comm on menstrual Spirit periods - [facility] [id number] Pelvic Problem Active Common pain Spirit - [facility] [id number] Follow up Problem Active Com mon Spirit - CHI [facility] [id number] 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[facility] with diabetic [facility] neuropathy Medica l , Center unspecifie d [id number] Body mass Problem Active Com mon index Spirit (BMI) of - CHI 40.0-44.9 in [facility] [id number] custodial Problem Active Com mon (current) Spirit use of - insulin [facility] [id number] Morbid Problem Active Commo n 9104 (severe) Spirit obesity - CHI due to [facility] [id number] Tubo-ovari Problem Active Com mon an abscess [facility] [id number] Uncontroll Problem Active Co mmon ed type 2 Spirit diabetes - [facility]I mellitus with [facility] hyperglyce [facility] [id number] History of Problem Active Co mmon hysterecto Spirit my - [facility] [id number] Type 2 Problem [place] [id number] diabetes Spirit [facility] [id number] Mixed Problem Active Common hyperlipid Spirit emia - [facility] [id number] Numbness Problem Active Comm on of left Spirit foot - [facility] Allergies, Adverse Reactions, Alerts Allergy Allergy Status Severity Reaction(s) Onset Inactive Treating Comm ents Source Name Type Date Date Clinician Penicill DA Active U 2018-02 [facility] ins 02-14 [facility]: [address] tazobact DA Active U 2018-02 [facility] am 02-14 00:00: [address] piperaci DA Active U 2018-02 [facility] llin 02-14 00:00: [address] PIPERACI DRUG Active High Anaphylaxis 2018- Uni vers LLIN-CLARK 8- ity of OBACTAM 00:00: [address] Branch Aliceaci Propensi Active Anaphylaxis 2018- U nivers llin-Clark ty to 8 ity of obactam adverse 00:00: [place] reaction 00 Medical s Branch piperaci piperaci Active shortness of Common llin / llin / breath Spirit tazobact tazobact - CHI am am [facility] Social History Social Habit Start Date Stop Date Quantity Comments Source History [facility] University o f Alcohol Std [place] [facility] History [facility] University o f Alcohol Binge [place] [facility] History [facility] o f Alcohol Comment [place] [facility] History of [facility] - Tobacco Use [facility] Sex Assigned At Common Sp arianna - [facility] Exposure to 2022-01-18 2022-01-28 Not sure University of SARS-CoV-2 00:00:00 11:04:00 [place] [facility] (event) Branch Alcohol intake 2021-06-18 2021-06-18 Lifetime University of 00:00:00 00:00:00 non-drinker [place] [facility] (finding) Branch Tobacco use and 2018-08-16 2018-08-16 Smokeless tobacco Un iversity of exposure 00:00:00 00:00:00 non-user [place] [facility] History [facility] 2018-08-16 2018-08-16 1 University o f Alcohol Frequency 00:00:00 00:00:00 [place] [facility] Education 2018-08-16 2018-08-16 13 University of 00:00:00 00:00:00 [place] [facility] History [facility] 2018-08-16 2018-08-16 3 University o f Financial 00:00:00 00:00:00 [place] [facility] History [facility] Food 2018-08-16 2018-08-16 1 Univers ity of Worry 00:00:00 00:00:00 [place] [facility] History [facility] Food 2018-08-16 2018-08-16 2 Univers ity of Scarcity 00:00:00 00:00:00 [place] [facility] History [facility] 2018-08-16 2018-08-16 2 University o f Transport Med 00:00:00 00:00:00 [place] [facility] History [facility] 2018-08-16 2018-08-16 2 University o f Transport Non-Med 00:00:00 00:00:00 [facility] edical Branch Smoking Status Start Date Stop Date Source Never Smoker [facility] Medications Ordered Filled Start Stop Current Ordering Indication Dosage Frequency Signature Comments Components Source Medication Medication Date Date Medication? Clinician (SIG) Name Name insulin 2021-02 Yes 55U inject 55 Unive rs glargine 2-20 Units ity of 100 unit/mL 11:47: [place] in [facility] the [place] morning. insulin 2021-02 Yes 55U inject 55 Unive rs glargine 2-20 Units ity of 100 unit/mL 11:47: [place] the [place] skin in [facility] morning. insulin 2021-02 Yes 55U inject 55 Unive rs glargine 2-20 Units ity of 100 unit/mL 11:47: [place] the [place] injection [place] skin in [facility] morning. insulin 2021-02 Yes 55U inject 55 Unive rs glargine 2-20 Units ity of 100 unit/mL 11:47: under the [place] injection [place] skin in [facility] morning. insulin 2021-02 Yes 55U inject 55 Unive rs glargine 2-20 Units ity of 100 unit/mL 11:47: under the [place] injection [place] skin in [facility] morning. insulin 2021-02 Yes 55U inject 55 Unive rs glargine 2-20 Units ity of 100 unit/mL 11:47: under the [place] injection [place] skin in [facility] morning. insulin 2021-02 Yes 55U inject 55 Unive rs glargine 2-20 Units ity of 100 unit/mL 11:47: [place] the [place] injection [place] skin in [facility] morning. insulin 2021-02 Yes 55U inject 55 Unive rs glargine 2-20 Units ity of 100 unit/mL 11:47: [place] the [place] injection [place] skin in [facility] morning. insulin 2021-02 Yes 55U inject 55 Unive rs glargine 2-20 Units ity of 100 unit/mL 11:47: [place] the [place] injection [place] skin in [facility] morning. insulin 2021-02 Yes [id number] 20U inject 20 U nivers aspart 2-20 Units ity of RAPID 00:00: under the [place] (NOVOLOG 00 skin in [facility] U-100 the [place] INSULIN morning ASPART) 100 and 20 unit/mL Units at injection noon and 20 Units in the evening. inject before meals. insulin 2021-02 Yes [id number] 1{each} 1 Each 4 Univers syr/ndl 2-20 (four) ity of U100 half 00:00: times [place] melvin 0.5 mL 00 daily. Use Me dical 31 gauge x with Branch 5/16" Syrg insulin 4 times daily. Dx E11.8 flash 2021-02 Yes [id number] 1{each} 1 Each Uni vers glucose 2-20 every 14 ity of sensor 00:00: (fourteen) [place] (FREESTYLE 00 days. Medical DASH 2 Branch SENSOR) Kit insulin 2021-02 Yes [id number] 20U inject 20 U nivers aspart 2-20 Units ity of RAPID 00:00: under the [place] (NOVOLOG 00 skin in Medical U-100 the Branch INSULIN morning ASPART) 100 and 20 unit/mL Units at injection noon and 20 Units in the evening. inject before meals. insulin 2021-02 Yes [id number] 1{each} 1 Each 4 Univers syr/ndl 2-20 (four) ity of U100 half 00:00: times [place] melvin 0.5 mL 00 daily. Use Me dical 31 gauge x with Branch 5/16" Syrg insulin 4 times daily. Dx E11.8 flash 2021-02 Yes [id number] 1{each} 1 Each Uni vers glucose 2-20 every 14 ity of sensor 00:00: (fourteen) [place] (FREESTYLE 00 days. Medical DASH 2 Branch SENSOR) Kit dulaglutide 2021-02 Yes [id number] .75mg inject 1 Univers (TRULICITY) 2-20 Pen under ity of 0.75 mg/0.5 00:00: [place] mL PnIj 00 weekly. Medical Branch insulin 2021-02 Yes [id number] 20U inject 20 U nivers aspart 2-20 Units ity of RAPID 00:00: under the [place] (NOVOLOG 00 skin in Medical U-100 the Branch INSULIN morning ASPART) 100 and 20 unit/mL Units at injection noon and 20 Units in the evening. inject before meals. insulin 2021-02 Yes [id number] 1{each} 1 Each 4 Univers syr/ndl 2-20 (four) ity of U100 half 00:00: times [place] melvin 0.5 mL 00 daily. Use Me dical 31 gauge x with Branch 5/16" Syrg insulin 4 times daily. Dx E11.8 flash 2021-02 Yes [id number] 1{each} 1 Each Uni vers glucose 2-20 every 14 ity of sensor 00:00: (fourteen) (FREESTYLE 00 days. Medical DASH 2 Branch SENSOR) Kit insulin 2021-02 Yes [id number] 20U inject 20 U nivers aspart 2-20 Units ity of RAPID 00:00: under the [place] (NOVOLOG 00 skin in Medical U-100 the Branch INSULIN morning ASPART) 100 and 20 unit/mL Units at injection noon and 20 Units in the evening. inject before meals. insulin 2021-02 Yes [id number] 1{each} 1 Each 4 Univers syr/ndl 2-20 (four) ity of U100 half 00:00: times [place] melvin 0.5 mL 00 daily. Use Me dical 31 gauge x with Branch 5/16" Syrg insulin 4 times daily. Dx E11.8 flash 2021-02 Yes [id number] 1{each} 1 Each Uni vers glucose 2-20 every 14 ity of sensor 00:00: (fourteen) [place] (FREESTYLE 00 days. Medical DASH 2 Branch SENSOR) Kit insulin 2021-02 Yes [id number] 20U inject 20 U nivers aspart 2-20 Units ity of RAPID 00:00: under the [place] (NOVOLOG 00 skin in Medical U-100 the Branch INSULIN morning ASPART) 100 and 20 unit/mL Units at injection noon and 20 Units in the evening. inject before meals. insulin 2021-02 Yes [id number] 1{each} 1 Each 4 Univers syr/ndl 2-20 (four) ity of U100 half 00:00: times [place] melvin 0.5 mL 00 daily. Use Me dical 31 gauge x with Branch 5/16" Syrg insulin 4 times daily. Dx E11.8 flash 2021-02 Yes [id number] 1{each} 1 Each Uni vers glucose 2-20 every 14 ity of sensor 00:00: (fourteen) (FREESTYLE 00 days. Medical DASH 2 Branch SENSOR) Kit insulin 2021-02 Yes [id number] 20U inject 20 U nivers aspart 2-20 Units ity of RAPID 00:00: under the [place] (NOVOLOG 00 skin in Medical U-100 the Branch INSULIN morning ASPART) 100 and 20 unit/mL Units at injection noon and 20 Units in the evening. inject before meals. insulin 2021-02 Yes [id number] 1{each} 1 Each 4 Univers syr/ndl 2-20 (four) ity of U100 half 00:00: times [place] melvin 0.5 mL 00 daily. Use Me dical 31 gauge x with Branch 16" Syrg insulin 4 times daily. Dx E11.8 flash 2021-02 Yes [id number] 1{each} 1 Each Uni vers glucose 2-20 every 14 ity of sensor 00:00: (fourteen) [place] (FREESTYLE 00 days. Medical DASH 2 Branch SENSOR) Kit dulaglutide 2021-02 Yes [id number] .75mg inject 1 Univers (TRULICITY) 2-20 Pen under ity of 0.75 mg/0.5 00:00: [place] mL PnIj 00 weekly. Medical Branch insulin 2021-02 Yes [id number] 20U inject 20 U nivers aspart 2-20 Units ity of RAPID 00:00: under the [place] (NOVOLOG 00 skin in Medical U-100 the Branch INSULIN morning ASPART) 100 and 20 unit/mL Units at injection noon and 20 Units in the evening. inject before meals. insulin 2021-02 Yes [id number] 1{each} 1 Each 4 Univers syr/ndl 2-20 (four) ity of U100 half 00:00: times [place] melvin 0.5 mL 00 daily. Use Me dical 31 gauge x with Branch 06/24" Syrg insulin 4 times daily. Dx E11.8 flash 2021-02 Yes [id number] 1{each} 1 Each Uni vers glucose 2-20 every 14 ity of sensor 00:00: (fourteen) [place] (FREESTYLE 00 days. Medical DASH 2 Branch SENSOR) Kit dulaglutide 2021-02 Yes [id number] .75mg inject 1 Univers (TRULICITY) 2-20 Pen under ity of 0.75 mg/0.5 00:00: [place] mL PnIj 00 weekly. Medical Branch insulin 2021-02 Yes [id number] 20U inject 20 U nivers aspart 2-20 Units ity of RAPID 00:00: under the [place] (NOVOLOG 00 skin in Medical U-100 the Branch INSULIN morning ASPART) 100 and 20 unit/mL Units at injection noon and 20 Units in the evening. inject before meals. insulin 2021-02 Yes [id number] 1{each} 1 Each 4 Univers syr/ndl 2-20 (four) ity of U100 half 00:00: times [place] melvin 0.5 mL 00 daily. Use Me dical 31 gauge x with Branch 5/16" Syrg insulin 4 times daily. Dx E11.8 flash 2021-02 Yes [id number] 1{each} 1 Each Uni vers glucose 2-20 every 14 ity of sensor 00:00: (fourteen) [place] (FREESTYLE 00 days. Medical DASH 2 Branch SENSOR) Kit dulaglutide 2021-02 Yes [id number] .75mg inject 1 Univers (TRULICITY) 2-20 Pen under ity of 0.75 mg/0.5 00:00: [place] mL PnIj 00 weekly. Medical Branch insulin 2021-02 Yes [id number] 20U inject 20 U nivers aspart 2-20 Units ity of RAPID 00:00: under the [place] (NOVOLOG 00 skin in Medical U-100 the Branch INSULIN morning ASPART) 100 and 20 unit/mL Units at injection noon and 20 Units in the evening. inject before meals. insulin 2021-02 Yes [id number] 1{each} 1 Each 4 Univers syr/ndl 2-20 (four) ity of U100 half 00:00: times [place] melvin 0.5 mL 00 daily. Use Me dical 31 gauge x with Branch 06/24" Syrg insulin 4 times daily. Dx E11.8 flash 2021-02 Yes [id number] 1{each} 1 Each Uni vers glucose 2-20 every 14 ity of sensor 00:00: (fourteen) [place] (FREESTYLE 00 days. Medical DASH 2 Branch SENSOR) Kit dulaglutide 2021-02 Yes [id number] .75mg inject 1 Univers (TRULICITY) 2-20 Pen under ity of 0.75 mg/0.5 00:00: [place] mL PnIj 00 weekly. Medical Branch bromphenira 2021- No [id number] 10mL Take 10 mL Univers mine-pseudo 10-10 by mouth 4 i ty of ephedrine-D 00:00: 04:59 (four) [place] as M 2-30-10 00 :00 times Medical mg/5 mL daily as Branch syrup needed for Congestion /Allergies for up to 7 days. clindamycin Yes Univer s 300 mg 8-30 ity of capsule 00:00: [place] 00 Medical Branch ibuprofen 2022-0 Yes Univers 800 mg 8-30 ity of tablet 00:00: [place] [facility] clindamycin 2022-0 Yes Univer s 300 mg 8-30 ity of capsule 00:00: [place] 00 Medical Branch ibuprofen 2022-0 Yes Univers 800 mg 8-30 ity of tablet 00:00: [place] [facility] clindamycin 2022-0 Yes Univer s 300 mg 8-30 ity of capsule 00:00: [place] 00 Medical Branch ibuprofen 2022-0 Yes Univers 800 mg 8-30 ity of tablet 00:00: [place] [facility] clindamycin 2022-0 Yes Univer s 300 mg 8-30 ity of capsule 00:00: [place] [address] Medical Branch ibuprofen 2022-0 Yes Univers 800 mg 8-30 ity of tablet 00:00: [place] [facility] clindamycin 2022-0 Yes Univer s 300 mg 8-30 ity of capsule 00:00: [place] [address] Medical Branch ibuprofen 2022-0 Yes Univers 800 mg 8-30 ity of tablet 00:00: [place] [facility] clindamycin 2022-0 Yes Univer s 300 mg 8-30 ity of capsule 00:00: [place] [address] Medical Branch ibuprofen 2022-0 Yes Univers 800 mg 8-30 ity of tablet 00:00: [place] [address] Medical Branch clindamycin 2022-0 Yes Univer s 300 mg 8-30 ity of capsule 00:00: [place] [address] Medical Branch ibuprofen 2022-0 Yes Univers 800 mg 8-30 ity of tablet 00:00: [place] [facility] clindamycin 2022-0 Yes Univer s 300 mg 8-30 ity of capsule 00:00: [place] [address] Medical Branch ibuprofen 2022-0 Yes Univers 800 mg 8-30 ity of tablet 00:00: [place] [address] Medical Branch clindamycin 2022-0 Yes Univer s 300 mg 8-30 ity of capsule 00:00: [place] [address] Medical Branch ibuprofen 2022-0 Yes Univers 800 mg 8-30 ity of tablet 00:00: [place] [facility] clindamycin 2022-0 Yes Univer s 300 mg 8-30 ity of capsule 00:00: [place] [address] Medical Branch ibuprofen 2022-0 Yes Univers 800 mg 8-30 ity of tablet 00:00: [place] [address] Medical Branch clindamycin Yes Univer s 300 mg 8-30 ity of capsule 00:00: Medical Branch ibuprofen 2021-0 Yes Univers 800 mg 8-30 ity of tablet 00:00: [facility] Branch blood sugar Yes Use to Univ ers diagnostic - check ity of (TRUE 00:00: blood [place] METRIX 00 sugar 3X Medical GLUCOSE daily. Branch TEST STRIP) DX:E11.8 strip Blood-Gluco Yes Use to Univ ers se Meter - check ity of (TRUE 00:00: blood [place] METRIX 00 sugar 3X Medical GLUCOSE daily. Branch METER) Kit DX:E11.8 blood sugar Yes Use to Univ ers diagnostic - check ity of (TRUE 00:00: blood [place] METRIX 00 sugar 3X Medical GLUCOSE daily. Branch TEST STRIP) DX:E11.8 strip Blood-Gluco Yes Use to Univ ers se Meter - check ity of (TRUE 00:00: blood [place] METRIX 00 sugar 3X Medical GLUCOSE daily. Branch METER) Kit DX:E11.8 blood sugar Yes Use to Univ ers diagnostic - check ity of (TRUE 00:00: blood [place] METRIX 00 sugar 3X Medical GLUCOSE daily. Branch TEST STRIP) DX:E11.8 strip Blood-Gluco 0 Yes Use to Univ ers se Meter - check ity of (TRUE 00:00: blood [place] METRIX 00 sugar 3X Medical GLUCOSE daily. Branch METER) Kit DX:E11.8 blood sugar Yes Use to Univ ers diagnostic - check ity of (TRUE 00:00: blood [place] METRIX 00 sugar 3X Medical GLUCOSE daily. Branch TEST STRIP) DX:E11.8 strip Blood-Gluco 2021-0 Yes Use to Univ ers se Meter -26 check ity of (TRUE 00:00: blood [place] METRIX 00 sugar 3X Medical GLUCOSE daily. Branch METER) Kit DX:E11.8 blood sugar Yes Use to Univ ers diagnostic 5-26 check ity of (TRUE 00:00: blood [place] METRIX 00 sugar 3X Medical GLUCOSE daily. Branch TEST STRIP) DX:E11.8 strip Blood-Gluco 2021-0 Yes Use to Univ ers se Meter - check ity of (TRUE 00:00: blood [place] METRIX 00 sugar 3X Medical GLUCOSE daily. Branch METER) Kit DX:E11.8 blood sugar Yes Use to Univ ers diagnostic - check ity of (TRUE 00:00: blood [place] METRIX 00 sugar 3X Medical GLUCOSE daily. Branch TEST STRIP) DX:E11.8 strip Blood-Gluco Yes Use to Univ ers se Meter 07-04 check ity of (TRUE 00:00: blood [place] METRIX 00 sugar 3X Medical GLUCOSE daily. Branch METER) Kit DX:E11.8 blood sugar Yes Use to Univ ers diagnostic - check ity of (TRUE 00:00: blood [place] METRIX 00 sugar 3X Medical GLUCOSE daily. Branch TEST STRIP) DX:E11.8 strip Blood-Gluco 0 Yes Use to Univ ers se Meter - check ity of (TRUE 00:00: blood [place] METRIX 00 sugar 3X Medical GLUCOSE daily. Branch METER) Kit DX:E11.8 blood sugar Yes Use to Univ ers diagnostic - check ity of (TRUE 00:00: blood [place] METRIX 00 sugar 3X Medical GLUCOSE daily. Branch TEST STRIP) DX:E11.8 strip Blood-Gluco 0 Yes Use to Univ ers se Meter 07-04 check ity of (TRUE 00:00: blood [place] METRIX 00 sugar 3X Medical GLUCOSE daily. Branch METER) Kit DX:E11.8 blood sugar Yes Use to Univ ers diagnostic - check ity of (TRUE 00:00: blood [place] METRIX 00 sugar 3X Medical GLUCOSE daily. Branch TEST STRIP) DX:E11.8 strip Blood-Gluco 2021-0 Yes Use to Univ ers se Meter - check ity of (TRUE 00:00: blood [place] METRIX 00 sugar 3X Medical GLUCOSE daily. Branch METER) Kit DX:E11.8 blood sugar Yes Use to Univ ers diagnostic - check ity of (TRUE 00:00: blood [place] METRIX 00 sugar 3X Medical GLUCOSE daily. Branch TEST STRIP) DX:E11.8 strip Blood-Gluco 2021-0 Yes Use to Univ ers se Meter - check ity of (TRUE 00:00: blood [place] METRIX 00 sugar 3X Medical GLUCOSE daily. Branch METER) Kit DX:E11.8 blood sugar Yes Use to Univ ers diagnostic - check ity of (TRUE 00:00: blood [place] METRIX 00 sugar 3X Medical GLUCOSE daily. Branch TEST STRIP) DX:E11.8 strip Blood-Gluco 2021-0 Yes Use to Univ ers se Meter - check ity of (TRUE 00:00: blood [place] METRIX 00 sugar 3X Medical GLUCOSE daily. Branch METER) Kit DX:E11.8 blood sugar Yes Use to Univ ers diagnostic - check ity of (TRUE 00:00: blood [place] METRIX 00 sugar 3X Medical GLUCOSE daily. Branch TEST STRIP) DX:E11.8 strip Blood-Gluco 2021-0 Yes Use to Univ ers se Meter - check ity of (TRUE 00:00: blood [place] METRIX 00 sugar 3X Medical GLUCOSE daily. Branch METER) Kit DX:E11.8 blood sugar Yes Use to Univ ers diagnostic - check ity of (TRUE 00:00: blood [place] METRIX 00 sugar 3X Medical GLUCOSE daily. Branch TEST STRIP) DX:E11.8 strip Blood-Gluco 2021-0 Yes Use to Univ ers se Meter - check ity of (TRUE 00:00: blood [place] METRIX 00 sugar 3X Medical GLUCOSE daily. Branch METER) Kit DX:E11.8 Insulin Yes [id number] Use as Univ ers [place], 5-24 directed ity of Disposable, 00:00: to inject [place] (PEN 00 insulin Medical NEEDLE) 31 four times Bra nch gauge x daily for 06/24" Ndle E11.8 Insulin Yes [id number] Use as Univ ers [place], 5-24 directed ity of Disposable, 00:00: to inject [place] (PEN 00 insulin Medical NEEDLE) 31 four times Bra nch gauge x daily for 06/24" Ndle E11.8 Insulin Yes [id number] Use as Univ ers [facility], 5-24 directed ity of Disposable, 00:00: to inject [place] (PEN 00 insulin Medical NEEDLE) 31 four times Bra nch gauge x daily for 06/24" Ndle E11.8 Insulin Yes [id number] Use as [facility], 5-24 directed ity of Disposable, 00:00: to inject [place] (PEN 00 insulin Medical NEEDLE) 31 four times Bra n[facility] gauge x daily for 06/24" Ndle E11.8 Insulin Yes [id number] Use as [facility] [place], 5-24 directed ity of Disposable, 00:00: to inject [place] (PEN 00 insulin Medical NEEDLE) 31 four times Bra n[facility] gauge x daily for 06/24" Ndle E11.8 Insulin Yes [id number] Use as [facility] [place], 5-24 directed ity of Disposable, 00:00: to inject [place] (PEN 00 insulin Medical NEEDLE) 31 four times Bra nch gauge x daily for 06/24" Ndle E11.8 Insulin Yes [id number] Use as [facility] [place], 5-24 directed ity of Disposable, 00:00: to inject [place] (PEN 00 insulin Medical NEEDLE) 31 four times Bra n[facility] gauge x daily for 06/24" Ndle E11.8 Insulin Yes [id number] Use as [facility] [place], 5-24 directed ity of Disposable, 00:00: to inject [place] (PEN 00 insulin Medical NEEDLE) 31 four times Bra nch gauge x daily for 06/24" Ndle E11.8 Insulin Yes [id number] Use as [facility] [place], 5-24 directed ity of Disposable, 00:00: to inject [place] (PEN 00 insulin Medical NEEDLE) 31 four times Bra nch gauge x daily for 06/24" Ndle E11.8 Insulin Yes [id number] Use as [facility] [place], 5-24 directed ity of Disposable, 00:00: to inject [place] (PEN 00 insulin Medical NEEDLE) 31 four times Bra nch gauge x daily for 06/24" Ndle E11.8 Insulin Yes [id number] Use as [facility] [place], 5-24 directed ity of Disposable, 00:00: to inject [place] (PEN 00 insulin Medical NEEDLE) 31 four times Bra nch gauge x daily for 06/24" Ndle E11.8 Insulin Yes [id number] Use as [facility] [place], 5-24 directed ity of Disposable, 00:00: to inject [place] (PEN 00 insulin Medical NEEDLE) 31 four times Bra nch gauge x daily for 06/24" Ndle E11.8 Insulin 2021-0 Yes [id number] Use as [facility] [place], 5-24 directed ity of Disposable, 00:00: to inject [place] (PEN 00 insulin Medical NEEDLE) 31 four times Bra nch gauge x daily for 06/24" Ndle E11.8 metFORMIN 2021-0 Yes [id number] 1000mg Take 2 [facility] 500 mg 24 5-23 tablets by ity of hr tablet 00:00: mouth (two) Medical times Branch daily with meals. metFORMIN 2021-0 Yes [id number] 1000mg Take 2 [facility] 500 mg 24 5-23 tablets by ity of hr tablet 00:00: mouth (two) Medical times Branch daily with meals. metFORMIN 2021-0 Yes [id number] 1000mg Take 2 [facility] 500 mg 24 5-23 tablets by ity of hr tablet 00:00: mouth (two) Medical times Branch daily with meals. metFORMIN 2021-0 Yes [id number] 1000mg Take 2 [facility] 500 mg 24 5-23 tablets by ity of hr tablet 00:00: mouth (two) Medical times Branch daily with meals. metFORMIN 2021-0 Yes [id number] 1000mg Take 2 [facility] 500 mg 24 5-23 tablets by ity of hr tablet 00:00: mouth (two) Medical times Branch daily with meals. metFORMIN 2021-0 Yes [id number] 1000mg Take 2 [facility] 500 mg 24 5-23 tablets by ity of hr tablet 00:00: mouth (two) Medical times Branch daily with meals. metFORMIN 2021-0 Yes [id number] 1000mg Take 2 [facility] 500 mg 24 5-23 tablets by ity of hr tablet 00:00: mouth (two) Medical times Branch daily with meals. metFORMIN 2021-0 Yes [id number] 1000mg Take 2 [facility] 500 mg 24 5-23 tablets by ity of hr tablet 00:00: mouth (two) Medical times Branch daily with meals. metFORMIN 2-0 Yes [id number] 1000mg Take 2 [facility] 500 mg 24 5-23 tablets by ity of hr tablet 00:00: mouth (two) Medical times Branch daily with meals. metFORMIN 2-0 Yes [id number] 1000mg Take 2 [facility] 500 mg 24 5-23 tablets by ity of hr tablet 00:00: mouth [place] (two) Medical times Branch daily with meals. metFORMIN 2021-0 Yes [id number] 1000mg Take 2 [facility] 500 mg 24 5-23 tablets by ity of hr tablet 00:00: mouth 2 [place] (two) Medical times Branch daily with meals. metFORMIN 2021-0 Yes [id number] 1000mg Take 2 [facility] 500 mg 24 5-23 tablets by ity of hr tablet 00:00: mouth [place] (two) Medical times Branch daily with meals. metFORMIN 2021-0 Yes [id number] 1000mg Take 2 [facility] 500 mg 24 5-23 tablets by ity of hr tablet 00:00: mouth [place] (two) Medical times Branch daily with meals. metFORMIN 2021-0 Yes [id number] 1000mg Take 2 [facility] 500 mg 24 5-23 tablets by ity of hr tablet 00:00: mouth [place] (two) Medical times Branch daily with meals. metFORMIN 2021-0 Yes [id number] 1000mg Take 2 [facility] 500 mg 24 5-23 tablets by ity of hr tablet 00:00: mouth [place] (two) Medical times Branch daily with meals. blood sugar 2021- No [id number] Use 4 [facility] diagnostic 5-23 05-26 times ity of (ONETOUCH 00:00: 00:00 daily. Dx [place] VERIO TEST 00 :00 E11.8 Medical STRIPS) Branch strip blood sugar 2021- No [id number] Use 4 [facility] diagnostic 5-23 05-26 times ity of (ONETOUCH 00:00: 00:00 daily. Dx [place] VERIO TEST 00 :00 E11.8 Medical STRIPS) Branch strip Insulin 2021- No [id number] Use as [facility] vers [facility], 07-01 05-24 directed ity of Disposable, 00:00: 00:00 [place] (PEN 00 :00 Medical NEEDLE) 31 Branch gauge x 5/16" Ndle Insulin 2021- No [id number] Use as [facility], 5-23 05-24 directed ity of Disposable, 00:00: 00:00 [place] (PEN 00 :00 Medical NEEDLE) 31 Branch gauge x 5/16" Ndle bromphenira 2021-0 Yes [id number] 5mL Take 5 mL [facility] mine-pseudo 4-13 by mouth 4 it y of ephedrine-D 00:00: (four) [place] [facility] (BROMFED 00 times Medical DM) 2-30-10 daily as Bran ch mg/5 mL needed for syrup Congestion /Allergies , Cold symptoms or Cough. acetaminoph 2-0 Yes [id number] 1000mg Take 2 [facility] en 500 mg 4-13 tablets by ity of tablet 00:00: mouth [place] 00 every 8 Medical (eight) Branch hours as needed for Pain or Fever. azithromyci 2021-0 Yes [id number] 250mg Take 1 [facility] n 250 mg 4-13 tablet by ity of tablet 00:00: mouth [place] 00 daily. 2 Medical tablets Branch day 1, then 1 tablet days 2-5 bromphenira 2021-0 Yes [id number] 5mL Take 5 mL [facility] mine-pseudo 4-13 by mouth 4 it y of ephedrine-D 00:00: (four) [place] [facility] (BROMFED 00 times Medical DM) 2-30-10 daily as Bran ch mg/5 mL needed for syrup Congestion /Allergies , Cold symptoms or Cough. acetaminoph 2021-0 Yes [id number] 1000mg Take 2 [facility] en 500 mg 4-13 tablets by ity of tablet 00:00: mouth [place] 00 every 8 Medical (eight) Branch hours as needed for Pain or Fever. azithromyci 2021-0 Yes [id number] 250mg Take 1 [facility] n 250 mg 4-13 tablet by ity of tablet 00:00: mouth [place] 00 daily. 2 Medical tablets Branch day 1, then 1 tablet days 2-5 bromphenira 2-0 Yes [id number] 5mL Take 5 mL [facility] mine-pseudo 4-13 by mouth 4 it y of ephedrine-D 00:00: (four) [place] [facility] (BROMFED 00 times Medical DM) 2-30-10 daily as Bran ch mg/5 mL needed for syrup Congestion /Allergies , Cold symptoms or Cough. acetaminoph 2-0 Yes [id number] 1000mg Take 2 [facility] en 500 mg 4-13 tablets by ity of tablet 00:00: mouth [place] 00 every 8 Medical (eight) Branch hours as needed for Pain or Fever. azithromyci 2022-0 Yes [id number] 250mg Take 1 [facility] n 250 mg 4-13 tablet by ity of tablet 00:00: mouth [place] 00 daily. 2 Medical tablets Branch day 1, then 1 tablet days 2-5 bromphenira 2-0 Yes [id number] 5mL Take 5 mL [facility] mine-pseudo 4-13 by mouth 4 it y of ephedrine-D 00:00: (four) [place] [facility] (BROMFED 00 times Medical DM) 2-30-10 daily as Bran ch mg/5 mL needed for syrup Congestion /Allergies , Cold symptoms or Cough. acetaminoph 2-0 Yes [id number] 1000mg Take 2 [facility] en 500 mg 4-13 tablets by ity of tablet 00:00: mouth [place] 00 every 8 Medical (eight) Branch hours as needed for Pain or Fever. azithromyci 2021-0 Yes [id number] 250mg Take 1 [facility] n 250 mg 4-13 tablet by ity of tablet 00:00: mouth [place] 00 daily. 2 Medical tablets Branch day 1, then 1 tablet days 2-5 bromphenira 2021-0 Yes [id number] 5mL Take 5 mL [facility] mine-pseudo 4-13 by mouth 4 it y of ephedrine-D 00:00: (four) [place] (BROMFED 00 times Medical DM) 2-30-10 daily as Bran ch mg/5 mL needed for syrup Congestion /Allergies , Cold symptoms or Cough. acetaminoph 2-0 Yes [id number] 1000mg Take 2 [facility] en 500 mg 4-13 tablets by ity of tablet 00:00: mouth [place] 00 every 8 Medical (eight) Branch hours as needed for Pain or Fever. azithromyci 2-0 Yes [id number] 250mg Take 1 [facility] n 250 mg 4-13 tablet by ity of tablet 00:00: mouth [place] 00 daily. 2 Medical tablets Branch day 1, then 1 tablet days 2-5 bromphenira 2022-0 Yes [id number] 5mL Take 5 mL [facility] mine-pseudo 4-13 by mouth 4 it y of ephedrine-D 00:00: (four) [place] (BROMFED 00 times Medical DM) 2-30-10 daily as Bran ch mg/5 mL needed for syrup Congestion /Allergies , Cold symptoms or Cough. acetaminoph 2022-0 Yes [id number] 1000mg Take 2 [facility] en 500 mg 4-13 tablets by ity of tablet 00:00: mouth [place] 00 every 8 Medical (eight) Branch hours as needed for Pain or Fever. azithromyci 2-0 Yes [id number] 250mg Take 1 [facility] n 250 mg 4-13 tablet by ity of tablet 00:00: mouth [place] 00 daily. 2 Medical tablets Branch day 1, then 1 tablet days 2-5 bromphenira 2022-0 Yes [id number] 5mL Take 5 mL [facility] mine-pseudo 4-13 by mouth 4 it y of ephedrine-D 00:00: (four) [place] (BROMFED 00 times Medical DM) 2-30-10 daily as Bran ch mg/5 mL needed for syrup Congestion /Allergies , Cold symptoms or Cough. acetaminoph 2022-0 Yes [id number] 1000mg Take 2 [facility] en 500 mg 4-13 tablets by ity of tablet 00:00: mouth [place] 00 every 8 Medical (eight) Branch hours as needed for Pain or Fever. azithromyci 2-0 Yes [id number] 250mg Take 1 [facility] n 250 mg 4-13 tablet by ity of tablet 00:00: mouth [place] 00 daily. 2 Medical tablets Branch day 1, then 1 tablet days 2-5 bromphenira 2-0 Yes [id number] 5mL Take 5 mL [facility] mine-pseudo 4-13 by mouth 4 it y of ephedrine-D 00:00: (four) [place] (BROMFED 00 times Medical DM) 2-30-10 daily as Bran ch mg/5 mL needed for syrup Congestion /Allergies , Cold symptoms or Cough. acetaminoph 2022-0 Yes [id number] 1000mg Take 2 [facility] en 500 mg 4-13 tablets by ity of tablet 00:00: mouth [place] 00 every 8 Medical (eight) Branch hours as needed for Pain or Fever. azithromyci 2022-0 Yes [id number] 250mg Take 1 [facility] n 250 mg 4-13 tablet by ity of tablet 00:00: mouth [place] 00 daily. 2 Medical tablets Branch day 1, then 1 tablet days 2-5 bromphenira 2022-0 Yes [id number] 5mL Take 5 mL [facility] mine-pseudo 4-13 by mouth 4 it y of ephedrine-D 00:00: (four) [place] (BROMFED 00 times Medical DM) 2-30-10 daily as Bran ch mg/5 mL needed for syrup Congestion /Allergies , Cold symptoms or Cough. acetaminoph 2022-0 Yes [id number] 1000mg Take 2 [facility] en 500 mg 4-13 tablets by ity of tablet 00:00: mouth [place] 00 every 8 Medical (eight) Branch hours as needed for Pain or Fever. azithromyci 2-0 Yes [id number] 250mg Take 1 [facility] n 250 mg 4-13 tablet by ity of tablet 00:00: mouth [place] 00 daily. 2 Medical tablets Branch day 1, then 1 tablet days 2-5 bromphenira 2022-0 Yes [id number] 5mL Take 5 mL [facility] mine-pseudo 4-13 by mouth 4 it y of ephedrine-D 00:00: (four) [place] (BROMFED 00 times Medical DM) 2-30-10 daily as Bran ch mg/5 mL needed for syrup Congestion /Allergies , Cold symptoms or Cough. acetaminoph 2-0 Yes [id number] 1000mg Take 2 [facility] en 500 mg 4-13 tablets by ity of tablet 00:00: mouth [place] 00 every 8 Medical (eight) Branch hours as needed for Pain or Fever. azithromyci 2-0 Yes [id number] 250mg Take 1 [facility] n 250 mg 4-13 tablet by ity of tablet 00:00: mouth [place] 00 daily. 2 Medical tablets Branch day 1, then 1 tablet days 2-5 bromphenira 2-0 Yes [id number] 5mL Take 5 mL [facility] mine-pseudo 4-13 by mouth 4 it y of ephedrine-D 00:00: (four) [place] (BROMFED 00 times Medical DM) 2-30-10 daily as Bran ch mg/5 mL needed for syrup Congestion /Allergies , Cold symptoms or Cough. acetaminoph 2-0 Yes [id number] 1000mg Take 2 [facility] en 500 mg 4-13 tablets by ity of tablet 00:00: mouth [place] 00 every 8 Medical (eight) Branch hours as needed for Pain or Fever. azithromyci 2-0 Yes [id number] 250mg Take 1 [facility] n 250 mg 4-13 tablet by ity of tablet 00:00: mouth [place] 00 daily. 2 Medical tablets Branch day 1, then 1 tablet days 2-5 bromphenira 2022-0 Yes [id number] 5mL Take 5 mL [facility] mine-pseudo 4-13 by mouth 4 it y of ephedrine-D 00:00: (four) [place] (BROMFED 00 times Medical DM) 2-30-10 daily as Bran ch mg/5 mL needed for syrup Congestion /Allergies , Cold symptoms or Cough. acetaminoph 2021-0 Yes [id number] 1000mg Take 2 [facility] en 500 mg 4-13 tablets by ity of tablet 00:00: mouth [place] 00 every 8 Medical (eight) Branch hours as needed for Pain or Fever. azithromyci 2021-0 Yes [id number] 250mg Take 1 [facility] n 250 mg 4-13 tablet by ity of tablet 00:00: mouth [place] 00 daily. 2 Medical tablets Branch day 1, then 1 tablet days 2-5 bromphenira 2021-0 Yes [id number] 5mL Take 5 mL [facility] mine-pseudo 4-13 by mouth 4 it y of ephedrine-D 00:00: (four) [place] (BROMFED 00 times Medical DM) 2-30-10 daily as Bran ch mg/5 mL needed for syrup Congestion /Allergies , Cold symptoms or Cough. acetaminoph 2021-0 Yes [id number] 1000mg Take 2 [facility] en 500 mg 4-13 tablets by ity of tablet 00:00: mouth [place] 00 every 8 Medical (eight) Branch hours as needed for Pain or Fever. azithromyci 2021-0 Yes [id number] 250mg Take 1 [facility] n 250 mg 4-13 tablet by ity of tablet 00:00: mouth [place] 00 daily. 2 Medical tablets Branch day 1, then 1 tablet days 2-5 bromphenira 2021-0 Yes [id number] 5mL Take 5 mL [facility] mine-pseudo 4-13 by mouth 4 it y of ephedrine-D 00:00: (four) [place] (BROMFED 00 times Medical DM) 2-30-10 daily as Bran ch mg/5 mL needed for syrup Congestion /Allergies , Cold symptoms or Cough. acetaminoph 2-0 Yes [id number] 1000mg Take 2 [facility] en 500 mg 4-13 tablets by ity of tablet 00:00: mouth [place] 00 every 8 Medical (eight) Branch hours as needed for Pain or Fever. azithromyci 2-0 Yes [id number] 250mg Take 1 [facility] n 250 mg 4-13 tablet by ity of tablet 00:00: mouth [place] 00 daily. 2 Medical tablets Branch day 1, then 1 tablet days 2-5 bromphenira Yes [id number] 5mL Take 5 mL [facility] mine-pseudo 4-13 by mouth 4 it y of ephedrine-D 00:00: (four) [place] (BROMFED 00 times Medical DM) 2-30-10 daily as Bran ch mg/5 mL needed for syrup Congestion /Allergies , Cold symptoms or Cough. acetaminoph Yes [id number] 1000mg Take 2 [facility] en 500 mg 4-13 tablets by ity of tablet 00:00: mouth [place] 00 every 8 Medical (eight) Branch hours as needed for Pain or Fever. azithromyci Yes [id number] 250mg Take 1 [facility] n 250 mg 4-13 tablet by ity of tablet 00:00: mouth [place] 00 daily. 2 Medical tablets Branch day 1, then 1 tablet days 2-5 insulin Yes [id number] 50U inject 50 U nivers degludec-li 3-23 Units ity of raglutide 00:00: under the [place] (XULTOPHY 00 skin Medical 100/3.6) daily. Branch 100 unit-3.6 mg /mL (3 mL) InPn insulin Yes [id number] 50U inject 50 U nivers degludec-li 3-23 Units ity of raglutide 00:00: under the [place] (XULTOPHY 00 skin Medical 100/3.6) daily. Branch 100 unit-3.6 mg /mL (3 mL) InPn insulin Yes [id number] 50U inject 50 U nivers degludec-li 3-23 Units ity of raglutide 00:00: under the [place] (XULTOPHY 00 skin Medical 100/3.6) daily. Branch 100 unit-3.6 mg /mL (3 mL) InPn insulin Yes [id number] 50U inject 50 U nivers degludec-li 3-23 Units ity of raglutide 00:00: under the [place] (XULTOPHY 00 skin Medical 100/3.6) daily. Branch 100 unit-3.6 mg /mL (3 mL) InPn insulin 2021-0 Yes [id number] 50U inject 50 U nivers degludec-li 3-23 Units ity of raglutide 00:00: under the [place] (XULTOPHY 00 skin Medical 100/3.6) daily. Branch 100 unit-3.6 mg /mL (3 mL) InPn insulin 2021-0 Yes [id number] 50U inject 50 U nivers degludec-li 3-23 Units ity of raglutide 00:00: under the [place] (XULTOPHY 00 skin Medical 100/3.6) daily. Branch 100 unit-3.6 mg /mL (3 mL) InPn Nitrofurant 2021-0 Yes [id number] 100mg Take 1 [facility] oin&Nit. 2-26 capsule by ity o f Macrocryst 00:00: mouth [place] (MACROBID) 00 (two) Medical 100 mg times Branch capsule daily. Nitrofurant 2021-0 Yes [id number] 100mg Take 1 [facility] oin&Nit. 2-26 capsule by ity o f Macrocryst 00:00: mouth [place] (MACROBID) 00 (two) Medical 100 mg times Branch capsule daily. Nitrofurant 2021-0 Yes [id number] 100mg Take 1 [facility] oin&Nit. 2-26 capsule by ity o f Macrocryst 00:00: mouth 2 [place] (MACROBID) 00 (two) Medical 100 mg times Branch capsule daily. Nitrofurant 2021-0 Yes [id number] 100mg Take 1 [facility] oin&Nit. 2-26 capsule by ity o f Macrocryst 00:00: mouth 2 [place] (MACROBID) 00 (two) Medical 100 mg times Branch capsule daily. Nitrofurant 2021-0 Yes [id number] 100mg Take 1 [facility] oin&Nit. 2-26 capsule by ity o f Macrocryst 00:00: mouth 2 [place] (MACROBID) 00 (two) Medical 100 mg times Branch capsule daily. Nitrofurant 2021-0 Yes [id number] 100mg Take 1 [facility] oin&Nit. 2-26 capsule by ity o f Macrocryst 00:00: mouth 2 [place] (MACROBID) 00 (two) Medical 100 mg times Branch capsule daily. Nitrofurant 2021-0 Yes [id number] 100mg Take 1 [facility] oin&Nit. 2-26 capsule by ity o f Macrocryst 00:00: mouth 2 [place] (MACROBID) 00 (two) Medical 100 mg times Branch capsule daily. Nitrofurant 2021-0 Yes [id number] 100mg Take 1 [facility] oin&Nit. 2-26 capsule by ity o f Macrocryst 00:00: mouth 2 [place] (MACROBID) 00 (two) Medical 100 mg times Branch capsule daily. Nitrofurant 2021-0 Yes [id number] 100mg Take 1 [facility] oin&Nit. 2-26 capsule by ity o f Macrocryst 00:00: mouth 2 [place] (MACROBID) 00 (two) Medical 100 mg times Branch capsule daily. Nitrofurant 2021-0 Yes [id number] 100mg Take 1 [facility] oin&Nit. 2-26 capsule by ity o f Macrocryst 00:00: mouth 2 [place] (MACROBID) 00 (two) Medical 100 mg times Branch capsule daily. Nitrofurant 2021-0 Yes [id number] 100mg Take 1 [facility] oin&Nit. 2-26 capsule by ity o f Macrocryst 00:00: mouth 2 [place] (MACROBID) 00 (two) Medical 100 mg times Branch capsule daily. Nitrofurant 2021-0 Yes [id number] 100mg Take 1 [facility] oin&Nit. 2-26 capsule by ity o f Macrocryst 00:00: mouth 2 [place] (MACROBID) 00 (two) Medical 100 mg times Branch capsule daily. Nitrofurant 2021-0 Yes [id number] 100mg Take 1 [facility] oin&Nit. 2-26 capsule by ity o f Macrocryst 00:00: mouth 2 [place] (MACROBID) 00 (two) Medical 100 mg times Branch capsule daily. Nitrofurant 2021-0 Yes [id number] 100mg Take 1 [facility] oin&Nit. 2-26 capsule by ity o f Macrocryst 00:00: mouth 2 [place] (MACROBID) 00 (two) Medical 100 mg times Branch capsule daily. Nitrofurant 2022-0 Yes [id number] 100mg Take 1 [facility] oin&Nit. 2-26 capsule by ity o f Macrocryst 00:00: mouth 2 [place] (MACROBID) 00 (two) Medical 100 mg times Branch capsule daily. insulin Yes [id number] 1{each} 1 Each 4 [facility] syr/ndl 2-25 (four) ity of U100 half 00:00: times [place] melvin 0.5 mL 00 daily. Use Me dical 31 gauge x with Branch 5/16" Syrg insulin 4 times daily. Dx E11.8 insulin Yes [id number] 15U inject 15 U nivers aspart 2-25 Units ity of RAPID 00:00: under the [place] (NOVOLOG 00 skin 3 Medical U-100 (three) Branch INSULIN times ASPART) 100 daily unit/mL before injection meals. lancets Yes [id number] Use 4 Unive rs (ONE TOUCH 2-25 times ity of DELICA) 33 00:00: daily. Dx [place] gauge Misc E11.8 Medical Branch insulin Yes [id number] 1{each} 1 Each 4 [facility] syr/ndl 2-25 (four) ity of U100 half 00:00: times [place] melvin 0.5 mL 00 daily. Use Me dical 31 gauge x with Branch 5/16" Syrg insulin 4 times daily. Dx E11.8 insulin Yes [id number] 15U inject 15 U nivers aspart 2-25 Units ity of RAPID 00:00: under the [place] (NOVOLOG 00 skin 3 Medical U-100 (three) Branch INSULIN times ASPART) 100 daily unit/mL before injection meals. lancets Yes [id number] Use 4 Unive rs (ONE TOUCH 2-25 times ity of DELICA) 33 00:00: daily. Dx [place] gauge Misc 00 E11.8 Medical Branch insulin Yes [id number] 1{each} 1 Each 4 [facility] syr/ndl 2-25 (four) ity of U100 half 00:00: times [place] melvin 0.5 mL 00 daily. Use Me dical 31 gauge x with Branch 5/16" Syrg insulin 4 times daily. Dx E11.8 insulin Yes [id number] 15U inject 15 U nivers aspart 2-25 Units ity of RAPID 00:00: under the [place] (NOVOLOG 00 skin 3 Medical U-100 (three) Branch INSULIN times ASPART) 100 daily unit/mL before injection meals. lancets 0 Yes [id number] Use 4 Unive rs (ONE TOUCH 2-25 times ity of DELICA) 33 00:00: daily. Dx [place] gauge Misc 00 E11.8 Medical Branch insulin 0 Yes [id number] 1{each} 1 Each 4 [facility] syr/ndl 2-25 (four) ity of U100 half 00:00: times [place] melvin 0.5 mL 00 daily. Use Me dical 31 gauge x with Branch 5/16" Syrg insulin 4 times daily. Dx E11.8 insulin Yes [id number] 15U inject 15 U nivers aspart 2-25 Units ity of RAPID 00:00: under the [place] (NOVOLOG 00 skin 3 Medical U-100 (three) Branch INSULIN times ASPART) 100 daily unit/mL before injection meals. lancets 0 Yes [id number] Use 4 Unive rs (ONE TOUCH 2-25 times ity of DELICA) 33 00:00: daily. Dx [place] gauge Misc E11.8 Medical Branch insulin 0 Yes [id number] 1{each} 1 Each 4 [facility] syr/ndl 2-25 (four) ity of U100 half 00:00: times [place] mlevin 0.5 mL 00 daily. Use Me dical 31 gauge x with Branch 5/16" Syrg insulin 4 times daily. Dx E11.8 insulin Yes [id number] 15U inject 15 U nivers aspart 2-25 Units ity of RAPID 00:00: under the [place] (NOVOLOG 00 skin 3 Medical U-100 (three) Branch INSULIN times ASPART) 100 daily unit/mL before injection meals. lancets 2021-0 Yes [id number] Use 4 Un[facility] rs (ONE TOUCH 2-25 times ity of DELICA) 33 00:00: daily. Dx [place] gauge Misc 00 E11.8 Medical Branch insulin 0 Yes [id number] 1{each} 1 Each 4 [facility] syr/ndl 2-25 (four) ity of U100 half 00:00: times [place] melvin 0.5 mL 00 daily. Use Me dical 31 gauge x with Branch 5/16" Syrg insulin 4 times daily. Dx E11.8 insulin 2021-0 Yes [id number] 15U inject 15 U nivers aspart 2-25 Units ity of RAPID 00:00: under the [place] (NOVOLOG 00 skin 3 Medical U-100 (three) Branch INSULIN times ASPART) 100 daily unit/mL before injection meals. lancets 2021-0 Yes [id number] Use 4 Un[facility] rs (ONE TOUCH 2-25 times ity of DELICA) 33 00:00: daily. Dx [place] gauge Misc 00 E11.8 Medical Branch lancets 2021-0 Yes [id number] Use 4 Un[facility] rs (ONE TOUCH 2-25 times ity of DELICA) 33 00:00: daily. Dx [place] gauge Misc 00 E11.8 Medical Branch lancets 2021-0 Yes [id number] Use 4 Un[facility] rs (ONE TOUCH 2-25 times ity of DELICA) 33 00:00: daily. Dx [place] gauge Misc 00 E11.8 Medical Branch lancets 2021-0 Yes [id number] Use 4 [facility] rs (ONE TOUCH 2-25 times ity of DELICA) 33 00:00: daily. Dx [place] gauge Misc 00 E11.8 Medical Branch lancets 2021-0 Yes [id number] Use 4 Un[facility] rs (ONE TOUCH 2-25 times ity of DELICA) 33 00:00: daily. Dx [place] gauge Misc 00 E11.8 Medical Branch lancets 2021-0 Yes [id number] Use 4 [facility] rs (ONE TOUCH 2-25 times ity of DELICA) 33 00:00: daily. Dx [place] gauge Misc 00 E11.8 Medical Branch lancets 2021-0 Yes [id number] Use 4 [facility] rs (ONE TOUCH 2-25 times ity of DELICA) 33 00:00: daily. Dx [place] gauge Misc 00 E11.8 Medical Branch lancets 2021-0 Yes [id number] Use 4 [facility] rs (ONE TOUCH 2-25 times ity of DELICA) 33 00:00: daily. Dx [place] gauge Misc 00 E11.8 Medical Branch lancets 2021-0 Yes [id number] Use 4 Un[facility] rs (ONE TOUCH 2-25 times ity of DELICA) 33 00:00: daily. Dx [place] gauge Misc 00 E11.8 Medical Branch lancets 0 Yes [id number] Use 4 Un[facility] rs (ONE TOUCH 2-25 times ity of DELICA) 33 00:00: daily. Dx [place] gauge Misc 00 E11.8 Medical Branch blood sugar 0 2021- No [id number] Use 4 [facility] diagnostic 2-25 05-23 times ity of (ONETOUCH 00:00: 00:00 daily. Dx [place] VERIO TEST 00 :00 E11.8 Medical STRIPS) Branch strip blood sugar 0 2021- No [id number] Use 4 [facility] diagnostic 2-25 05-23 times ity of (ONETOUCH 00:00: 00:00 daily. Dx [place] VERIO TEST 00 :00 E11.8 Medical STRIPS) Branch strip miconazole Yes [id number] 1{appli Insert 1 [facility] (MICONAZOLE 2-24 cator} Applicator ity of -7) 2 % 00:00: into [place] vaginal 00 vagina at Medical cream bedtime. Branch miconazole Yes [id number] 1{appli Insert 1 [facility] (MICONAZOLE 2-24 cator} Applicator ity of -7) 2 % 00:00: into [place] vaginal 00 vagina at Medical cream bedtime. Branch miconazole Yes [id number] 1{appli Insert 1 [facility] (MICONAZOLE 2-24 cator} Applicator ity of -7) 2 % 00:00: into [place] vaginal 00 vagina at Medical cream bedtime. Branch miconazole Yes [id number] 1{appli Insert 1 [facility] (MICONAZOLE 2-24 cator} Applicator ity of -7) 2 % 00:00: into [place] vaginal 00 vagina at Medical cream bedtime. Branch miconazole Yes [id number] 1{appli Insert 1 [facility] (MICONAZOLE 2-24 cator} Applicator ity of -7) 2 % 00:00: into [place] vaginal 00 vagina at Medical cream bedtime. Branch miconazole Yes [id number] 1{appli Insert 1 [facility] (MICONAZOLE 2-24 cator} Applicator ity of -7) 2 % 00:00: into [place] vaginal 00 vagina at Medical cream bedtime. Branch miconazole Yes [id number] 1{appli Insert 1 [facility] (MICONAZOLE 2-24 cator} Applicator ity of -7) 2 % 00:00: into [place] vaginal 00 vagina at Medical cream bedtime. Branch miconazole Yes [id number] 1{appli Insert 1 [facility] (MICONAZOLE 2-24 cator} Applicator ity of -7) 2 % 00:00: into [place] vaginal 00 vagina at Medical cream bedtime. Branch miconazole Yes [id number] 1{appli Insert 1 [facility] (MICONAZOLE 2-24 cator} Applicator ity of -7) 2 % 00:00: into [place] vaginal 00 vagina at Medical cream bedtime. Branch miconazole Yes [id number] 1{appli Insert 1 [facility] (MICONAZOLE 2-24 cator} Applicator ity of -7) 2 % 00:00: into [place] vaginal 00 vagina at Medical cream bedtime. Branch miconazole Yes [id number] 1{appli Insert 1 [facility] (MICONAZOLE 2-24 cator} Applicator ity of -7) 2 % 00:00: into [place] vaginal 00 vagina at Medical cream bedtime. Branch miconazole Yes [id number] 1{appli Insert 1 [facility] (MICONAZOLE 2-24 cator} Applicator ity of -7) 2 % 00:00: into [place] vaginal 00 vagina at Medical cream bedtime. Branch miconazole Yes [id number] 1{appli Insert 1 [facility] (MICONAZOLE 2-24 cator} Applicator ity of -7) 2 % 00:00: into [place] vaginal 00 vagina at Medical cream bedtime. Branch miconazole Yes [id number] 1{appli Insert 1 [facility] (MICONAZOLE 2-24 cator} Applicator ity of -7) 2 % 00:00: into [place] vaginal 00 vagina at Medical cream bedtime. Branch miconazole Yes [id number] 1{appli Insert 1 [facility] (MICONAZOLE 2-24 cator} Applicator ity of -7) 2 % 00:00: into [place] vaginal 00 vagina at Medical cream bedtime. Branch albuterol 2020-02 Yes [id number] 2{puff} Inhale 2 [facility] 90 2-13 Puffs ity of mcg/actuati 00:00: every 4 [place] as on inhaler 00 (four) Medical hours as Branch needed for Wheezing or Shortness of Breath. albuterol 2020-02 Yes [id number] 2{puff} Inhale 2 [facility] 90 2-13 Puffs ity of mcg/actuati 00:00: every 4 [place] as on inhaler 00 (four) Medical hours as Branch needed for Wheezing or Shortness of Breath. albuterol 2020-02 Yes [id number] 2{puff} Inhale 2 [facility] 90 2-13 Puffs ity of mcg/actuati 00:00: every 4 [place] as on inhaler 00 (four) Medical hours as Branch needed for Wheezing or Shortness of Breath. albuterol 2020-02 Yes [id number] 2{puff} Inhale 2 [facility] 90 2-13 Puffs ity of mcg/actuati 00:00: every 4 [place] as on inhaler 00 (four) Medical hours as Branch needed for Wheezing or Shortness of Breath. albuterol 2020-02 Yes [id number] 2{puff} Inhale 2 [facility] 90 2-13 Puffs ity of mcg/actuati 00:00: every 4 [place] as on inhaler 00 (four) Medical hours as Branch needed for Wheezing or Shortness of Breath. albuterol 2020-02 Yes [id number] 2{puff} Inhale 2 [facility] 90 2-13 Puffs ity of mcg/actuati 00:00: every 4 [place] as on inhaler 00 (four) Medical hours as Branch needed for Wheezing or Shortness of Breath. albuterol 2020-02 Yes [id number] 2{puff} Inhale 2 [facility] 90 2-13 Puffs ity of mcg/actuati 00:00: every 4 [place] as on inhaler 00 (four) Medical hours as Branch needed for Wheezing or Shortness of Breath. albuterol 2020-02 Yes [id number] 2{puff} Inhale 2 [facility] 90 2-13 Puffs ity of mcg/actuati 00:00: every 4 [place] as on inhaler 00 (four) Medical hours as Branch needed for Wheezing or Shortness of Breath. albuterol 2020-02 Yes [id number] 2{puff} Inhale 2 [facility] 90 2-13 Puffs ity of mcg/actuati 00:00: every 4 [place] as on inhaler 00 (four) Medical hours as Branch needed for Wheezing or Shortness of Breath. albuterol 2020-02 Yes [id number] 2{puff} Inhale 2 [facility] 90 2-13 Puffs ity of mcg/actuati 00:00: every 4 [place] as on inhaler 00 (four) Medical hours as Branch needed for Wheezing or Shortness of Breath. albuterol 2020-02 Yes [id number] 2{puff} Inhale 2 [facility] 90 2-13 Puffs ity of mcg/actuati 00:00: every 4 [place] as on inhaler 00 (four) Medical hours as Branch needed for Wheezing or Shortness of Breath. albuterol 2020-02 Yes [id number] 2{puff} Inhale 2 [facility] 90 2-13 Puffs ity of mcg/actuati 00:00: every 4 [place] as on inhaler 00 (four) Medical hours as Branch needed for Wheezing or Shortness of Breath. albuterol 2020-02 Yes [id number] 2{puff} Inhale 2 [facility] 90 2-13 Puffs ity of mcg/actuati 00:00: every 4 [place] as on inhaler 00 (four) Medical hours as Branch needed for Wheezing or Shortness of Breath. albuterol 2020-02 Yes [id number] 2{puff} Inhale 2 [facility] 90 2-13 Puffs ity of mcg/actuati 00:00: every 4 [place] as on inhaler 00 (four) Medical hours as Branch needed for Wheezing or Shortness of Breath. albuterol 2020-02 Yes [id number] 2{puff} Inhale 2 [facility] 90 2-13 Puffs ity of mcg/actuati 00:00: every 4 [place] as on inhaler 00 (four) Medical hours as Branch needed for Wheezing or Shortness of Breath. BD INSULIN Yes [facility] SYRINGE 9 ity of ULTRA-FINE 00:00: [place] 1 mL 31 00 Medical gauge x Branch 5/16 Syrg BD INSULIN Yes [facility] SYRINGE 9-29 ity of ULTRA-FINE 00:00: [place] 1 mL 31 00 Medical gauge x Branch 5/16 Syrg BD INSULIN Yes [facility] SYRINGE 929 ity of ULTRA-FINE 00:00: [place] 1 mL 31 00 Medical gauge x Branch 5/16 Syrg BD INSULIN Yes [facility] SYRINGE 9 ity of ULTRA-FINE 00:00: [place] 1 mL 31 00 Medical gauge x Branch 5/16 Syrg BD INSULIN 2021-0 Yes [facility] SYRINGE 9 ity of ULTRA-FINE 00:00: [place] 1 mL 31 00 Medical gauge x Branch 5/16 Syrg BD INSULIN 2021-0 Yes [facility] SYRINGE 11-07 ity of ULTRA-FINE 00:00: [place] 1 mL 31 00 Medical gauge x Branch 5/16 Syrg BD INSULIN 2021-0 Yes [facility] SYRINGE 11-07 ity of ULTRA-FINE 00:00: [place] 1 mL 31 00 Medical gauge x Branch 5/16 Syrg BD INSULIN 1-0 Yes [facility] SYRINGE 11-07 ity of ULTRA-FINE 00:00: [place] 1 mL 31 00 Medical gauge x Branch 5/16 Syrg BD INSULIN 2020-0 Yes [facility] SYRINGE 11-07 ity of ULTRA-FINE 00:00: [place] 1 mL 31 00 Medical gauge x Branch 5/16 Syrg BD INSULIN 2020-0 Yes [facility] SYRINGE 11-07 ity of ULTRA-FINE 00:00: [place] 1 mL 31 00 Medical gauge x Branch 5/16 Syrg BD INSULIN 2020-0 Yes [facility] SYRINGE 11-07 ity of ULTRA-FINE 00:00: [place] 1 mL 31 00 Medical gauge x Branch 5/16 Syrg BD INSULIN 1-0 Yes [facility] SYRINGE 11-07 ity of ULTRA-FINE 00:00: [place] 1 mL 31 00 Medical gauge x Branch 5/16 Syrg BD INSULIN 2021-0 Yes [facility] SYRINGE 11-07 ity of ULTRA-FINE 00:00: [place] 1 mL 31 00 Medical gauge x Branch 5/16 Syrg BD INSULIN 2021-0 Yes [facility] SYRINGE 11-07 ity of ULTRA-FINE 00:00: [place] 1 mL 31 00 Medical gauge x Branch 5/16 Syrg BD INSULIN 1-0 Yes [facility] SYRINGE 29 ity of ULTRA-FINE 00:00: [place] 1 mL 31 00 Medical gauge x Branch 5/16 Syrg valACYclovi 2021-0 Yes [id number] 500mg Take 1 [facility] r (VALTREX) 9-20 tablet by ity of 500 mg 00:00: mouth 2 [place] tablet 00 (two) Medical times Branch daily. valACYclovi 2021-0 Yes [id number] 500mg Take 1 [facility] r (VALTREX) 9-20 tablet by ity of 500 mg 00:00: mouth 2 [place] tablet 00 (two) Medical times Branch daily. valACYclovi 2021-0 Yes [id number] 500mg Take 1 [facility] r (VALTREX) 9-20 tablet by ity of 500 mg 00:00: mouth 2 [place] tablet 00 (two) Medical times Branch daily. valACYclovi 0 Yes [id number] 500mg Take 1 [facility] r (VALTREX) 9-20 tablet by ity of 500 mg 00:00: mouth 2 [place] tablet 00 (two) Medical times Branch daily. valACYclovi 0 Yes [id number] 500mg Take 1 [facility] r (VALTREX) 9-20 tablet by ity of 500 mg 00:00: mouth 2 [place] tablet 00 (two) Medical times Branch daily. valACYclovi 0 Yes [id number] 500mg Take 1 [facility] r (VALTREX) 9-20 tablet by ity of 500 mg 00:00: mouth 2 [place] tablet 00 (two) Medical times Branch daily. valACYclovi Yes [id number] 500mg Take 1 [facility] r (VALTREX) 9-20 tablet by ity of 500 mg 00:00: mouth 2 [place] tablet 00 (two) Medical times Branch daily. valACYclovi Yes [id number] 500mg Take 1 [facility] r (VALTREX) 9-20 tablet by ity of 500 mg 00:00: mouth 2 [place] tablet 00 (two) Medical times Branch daily. valACYclovi 0 Yes [id number] 500mg Take 1 [facility] r (VALTREX) 9-20 tablet by ity of 500 mg 00:00: mouth 2 [place] tablet 00 (two) Medical times Branch daily. valACYclovi 0 Yes [id number] 500mg Take 1 [facility] r (VALTREX) 9-20 tablet by ity of 500 mg 00:00: mouth 2 [place] tablet 00 (two) Medical times Branch daily. valACYclovi 0 Yes [id number] 500mg Take 1 [facility] r (VALTREX) 9-20 tablet by ity of 500 mg 00:00: mouth 2 [place] tablet 00 (two) Medical times Branch daily. valACYclovi 0 Yes [id number] 500mg Take 1 [facility] r (VALTREX) 9-20 tablet by ity of 500 mg 00:00: mouth 2 [place] tablet 00 (two) Medical times Branch daily. valACYclovi 0 Yes [id number] 500mg Take 1 [facility] r (VALTREX) 9-20 tablet by ity of 500 mg 00:00: mouth 2 [place] tablet 00 (two) Medical times Branch daily. valACYclovi 2020-0 Yes [id number] 500mg Take 1 [facility] r (VALTREX) 9-20 tablet by ity of 500 mg 00:00: mouth 2 [place] tablet 00 (two) Medical times Branch daily. valACYclovi 2020-0 Yes [id number] 500mg Take 1 [facility] r (VALTREX) 9-20 tablet by ity of 500 mg 00:00: mouth 2 [place] tablet 00 (two) Medical times Branch daily. lisinopriL Yes [id number] 1.25mg Take 0.5 [facility] 2.5 mg 8-07 tablets by ity of tablet 00:00: mouth [place] 00 daily. Medical Branch lisinopriL Yes [id number] 1.25mg Take 0.5 [facility] 2.5 mg 8-07 tablets by ity of tablet 00:00: mouth [place] 00 daily. Medical Branch lisinopriL Yes [id number] 1.25mg Take 0.5 [facility] 2.5 mg 8-07 tablets by ity of tablet 00:00: mouth [place] 00 daily. Medical Branch lisinopriL Yes [id number] 1.25mg Take 0.5 [facility] 2.5 mg 8-07 tablets by ity of tablet 00:00: mouth [place] 00 daily. [facility] Branch lisinopriL Yes [id number] 1.25mg Take 0.5 [facility] 2.5 mg 8-07 tablets by ity of tablet 00:00: mouth [place] 00 daily. Medical Branch lisinopriL Yes [id number] 1.25mg Take 0.5 [facility] 2.5 mg 8-07 tablets by ity of tablet 00:00: mouth [place] 00 daily. Medical Branch lisinopriL 0 Yes [id number] 1.25mg Take 0.5 [facility] 2.5 mg 8-07 tablets by ity of tablet 00:00: mouth [place] 00 daily. [facility] Branch lisinopriL Yes [id number] 1.25mg Take 0.5 [facility] 2.5 mg 8-07 tablets by ity of tablet 00:00: mouth [place] 00 daily. [facility] Branch lisinopriL Yes [id number] 1.25mg Take 0.5 [facility] 2.5 mg 8-07 tablets by ity of tablet 00:00: mouth [place] 00 daily. Medical Branch lisinopriL 2020-0 Yes [id number] 1.25mg Take 0.5 [facility] 2.5 mg 8-07 tablets by ity of tablet 00:00: mouth [place] 00 daily. Medical Branch lisinopriL 2020-0 Yes [id number] 1.25mg Take 0.5 [facility] 2.5 mg 8-07 tablets by ity of tablet 00:00: mouth [place] 00 daily. Medical Branch lisinopriL 2020-0 Yes [id number] 1.25mg Take 0.5 [facility] 2.5 mg 8-07 tablets by ity of tablet 00:00: mouth [place] 00 daily. Medical Branch lisinopriL 2020-0 Yes [id number] 1.25mg Take 0.5 [facility] 2.5 mg 8-07 tablets by ity of tablet 00:00: mouth [place] 00 daily. Medical Branch lisinopriL 2020-0 Yes [id number] 1.25mg Take 0.5 [facility] 2.5 mg 8-07 tablets by ity of tablet 00:00: mouth [place] 00 daily. Medical Branch lisinopriL 2020-0 Yes [id number] 1.25mg Take 0.5 [facility] 2.5 mg 8-07 tablets by ity of tablet 00:00: mouth [place] 00 daily. Medical Branch topiramate 2020-0 Yes [id number] 25mg Take 1 [facility] 25 mg 8-06 tablet by ity of tablet 00:00: mouth 2 00 (two) Medical times Branch daily. After one week may take 2 PO BID. topiramate 2020-0 Yes [id number] 25mg Take 1 [facility] 25 mg 8-06 tablet by ity of tablet 00:00: mouth 2 00 (two) Medical times Branch daily. After one week may take 2 PO BID. topiramate 2020-0 Yes [id number] 25mg Take 1 [facility] 25 mg 8-06 tablet by ity of tablet 00:00: mouth 2 00 (two) Medical times Branch daily. After one week may take 2 PO BID. topiramate 2020-0 Yes [id number] 25mg Take 1 [facility] 25 mg 8-06 tablet by ity of tablet 00:00: mouth 2 00 (two) Medical times Branch daily. After one week may take 2 PO BID. topiramate 2021-0 Yes [id number] 25mg Take 1 [facility] 25 mg 8-06 tablet by ity of tablet 00:00: mouth [place] (two) Medical times Branch daily. After one week may take 2 PO BID. topiramate 2021-0 Yes [id number] 25mg Take 1 [facility] 25 mg 8-06 tablet by ity of tablet 00:00: mouth [place] (two) Medical times Branch daily. After one week may take 2 PO BID. topiramate 2021-0 Yes [id number] 25mg Take 1 [facility] 25 mg 8-06 tablet by ity of tablet 00:00: mouth [place] (two) Medical times Branch daily. After one week may take 2 PO BID. topiramate 2021-0 Yes [id number] 25mg Take 1 [facility] 25 mg 8-06 tablet by ity of tablet 00:00: mouth [place] (two) Medical times Branch daily. After one week may take 2 PO BID. topiramate 2021-0 Yes [id number] 25mg Take 1 [facility] 25 mg 8-06 tablet by ity of tablet 00:00: mouth [place] (two) Medical times Branch daily. After one week may take 2 PO BID. topiramate 2021-0 Yes [id number] 25mg Take 1 [facility] 25 mg 8-06 tablet by ity of tablet 00:00: mouth [place] (two) Medical times Branch daily. After one week may take 2 PO BID. topiramate 2021-0 Yes [id number] 25mg Take 1 [facility] 25 mg 8-06 tablet by ity of tablet 00:00: mouth [place] (two) Medical times Branch daily. After one week may take 2 PO BID. topiramate 2021-0 Yes [id number] 25mg Take 1 [facility] 25 mg 8-06 tablet by ity of tablet 00:00: mouth [place] (two) Medical times Branch daily. After one week may take 2 PO BID. topiramate 2021-0 Yes [id number] 25mg Take 1 [facility] 25 mg 8-06 tablet by ity of tablet 00:00: mouth [place] (two) Medical times Branch daily. After one week may take 2 PO BID. topiramate 2021-0 Yes [id number] 25mg Take 1 [facility] 25 mg 8-06 tablet by ity of tablet 00:00: mouth 2 00 (two) Medical times Branch daily. After one week may take 2 PO BID. topiramate Yes [id number] 25mg Take 1 [facility] 25 mg 8-06 tablet by ity of tablet 00:00: mouth 2 00 (two) Medical times Branch daily. After one week may take 2 PO BID. Insulin 2021- No [id number] Use as [facility] vers [facility], 05-18 directed ity of Disposable, 00:00: 00:00 [place] (PEN 00 :00 Medical NEEDLE) 31 Branch gauge x 5/16" Ndle Insulin 2021- No [id number] Use as [facility] vers [facility], 05-18 directed ity of Disposable, 00:00: 00:00 [place] (PEN 00 :00 Medical NEEDLE) 31 Branch gauge x 5/16" Ndle Insulin Insulin No Insulin Syringe-Nee Syringe-Nee 3-03 Syringe-Ne dle U-100 dle U-100 00:00: edle U-100 30G X 5/16" 30G X 5/16" 00 30G X 1 ML 1 ML 5/16" 1 ML Lantus 100 Lantus 100 0 No Lantus 100 UNIT/ML UNIT/ML 3-03 UNIT/ML 00:00: 00 Insulin Insulin 0 No Insulin Syringe-Nee Syringe-Nee 3-03 Syringe-Ne dle U-100 dle U-100 00:00: edle U-100 30G X 5/16" 30G X 5/16" 00 30G X 1 ML 1 ML 5/16" 1 ML Lantus 100 Lantus 100 2020-0 No Lantus 100 UNIT/ML UNIT/ML 3-03 UNIT/ML 00:00: 00 Insulin Insulin 0 No Insulin Syringe-Nee Syringe-Nee 3-03 Syringe-Ne dle U-100 dle U-100 00:00: edle U-100 30G X 5/16" 30G X 5/16" 00 30G X 1 ML 1 ML 5/16" 1 ML Lantus 100 Lantus 100 2020-0 No Lantus 100 UNIT/ML UNIT/ML 3-03 UNIT/ML 00:00: 00 Pen [facility] Pen [facility] No Pen 32G X 5 MM 32G X 5 MM 2-24 [facility] 00:00: 32G X 5 MM 00 Pen [facility] Pen [facility] 2020-0 No Pen 32G X 5 MM 32G X 5 MM 2-24 [facility] 00:00: 32G X 5 MM 00 Pen [facility] Pen [facility] 0 No Pen 32G X 5 MM 32G X 5 MM 2-24 [facility] 00:00: 32G X 5 MM 00 Pen [facility] Pen [facility] 2020- No Pen 32G X 5 MM 32G X 5 MM 2-24 [facility] 00:00: 32G X 5 MM 00 Mupirocin 2 Mupirocin 2 2020- No 1{appli BID Mupirocin % % 04-04 03-10 cation_ 2 % 00:00: 00:00 to_affe 00 :00 cted_ar ea} Mupirocin 2 Mupirocin 2 2020- No 1{appli BID Mupirocin % % 04-04 03-10 cation_ 2 % 00:00: 00:00 to_affe 00 :00 cted_ar ea} Bactrim DS Bactrim DS 2020- No 1{table BID Bactrim DS 800-160 MG 800-160 MG 04-04- t} 800-160 MG 00:00: 00:00 00 :00 Benzonatate Benzonatate 2020-1- No 1{capsu Benzonatat 100 MG 100 MG 03-19 le_as_n e 100 MG 00:00: 00:00 eeded} 00 :00 Benzonatate Benzonatate 2020-1- No 1{capsu Benzonatat Common 100 MG 100 MG 03-19 le_as_n e 100 MG Spi rit 00:00: 00:00 eeded} - [facility] 00 :00 [facility] Benzonatate Benzonatate 2020-1- No 1{capsu Benzonatat 100 MG 100 MG 03-19 le_as_n e 100 MG 00:00: 00:00 eeded} 00 :00 Benzonatate Benzonatate 2020- No 1{capsu Benzonatat 100 MG 100 MG 2- le_as_n e 100 MG 00:00: 00:00 eeded} 00 :00 Farhadtus [place] No QD Lantus DemioStthierno SoloStar - SoloStar 100 UNIT/ML 100 UNIT/ML 00:00: 100 00 UNIT/ML Atorvastati Atorvastati 2019-02 No 1{table QD Atorvastat n Calcium n Calcium 0-13 t} in Calcium 10 MG 10 MG 00:00: 10 MG 00 Atorvastati Atorvastati 2019-02 No 1{table QD Atorvastat n Calcium n Calcium 0-13 t} in Calcium 10 MG 10 MG 00:00: 10 MG 00 Atorvastati Atorvastati 2019-02 No 1{table QD Atorvastat n Calcium n Calcium 0-13 t} in Calcium 10 MG 10 MG 00:00: 10 MG 00 Atorvastati Atorvastati 2019-02 No 1{table QD Atorvastat n Calcium n Calcium 0-13 t} in Calcium 10 MG 10 MG 00:00: 10 MG 00 Atorvastati Atorvastati 2019-02 No 1{table QD Atorvastat n Calcium n Calcium 0-13 t} in Calcium 10 MG 10 MG 00:00: 10 MG 00 Atorvastati Atorvastati 2019-02 No 1{table QD Atorvastat Common n Calcium n Calcium 0-13 t} in Calcium Spirit 10 MG 10 MG 00:00: 10 MG - [facility] Atorvastati Atorvastati 2019-02 No 1{table QD Atorvastat n Calcium n Calcium 0-13 t} in Calcium 10 MG 10 MG 00:00: 10 MG 00 Atorvastati Atorvastati 2019-02 No 1{table QD Atorvastat n Calcium n Calcium 0-13 t} in Calcium 10 MG 10 MG 00:00: 10 MG 00 Atorvastati Atorvastati 2019-02 No 1{table QD Atorvastat n Calcium n Calcium 0-13 t} in Calcium 10 MG 10 MG 00:00: 10 MG 00 Atorvastati Atorvastati 2019-02 No 1{table QD Atorvastat n Calcium n Calcium 0-13 t} in Calcium 10 MG 10 MG 00:00: 10 MG 00 Atorvastati Atorvastati 2019-02 No 1{table QD Atorvastat n Calcium n Calcium 0-13 t} in Calcium 10 MG 10 MG 00:00: 10 MG 00 Bactrim DS Bactrim DS 2019-02 No 1{table BID Bactrim DS 800-160 MG 800-160 MG 0-05 t} 800-160 MG 00:00: 00 Bactrim DS Bactrim DS 2019-02 No 1{table BID Bactrim DS 800-160 MG 800-160 MG 0-05 t} 800-160 MG 00:00: 00 Bactrim DS Bactrim DS 2019-02 No 1{table BID Bactrim DS 800-160 MG 800-160 MG 0-05 t} 800-160 MG 00:00: 00 Bactrim DS Bactrim DS 2019-02 No 1{table BID Bactrim DS Common 800-160 MG 800-160 MG 0-05 t} 800-160 MG Spirit 00:00: - [facility] 00 [facility] Bactrim DS Bactrim DS 2019-02 No 1{table BID Bactrim DS 800-160 MG 800-160 MG 0-05 t} 800-160 MG 00:00: 00 Bactrim DS Bactrim DS 2019-02 No 1{table BID Bactrim DS 800-160 MG 800-160 MG 0-05 t} 800-160 MG 00:00: 00 Bactrim DS Bactrim DS 2019- No 1{table BID Bactrim DS 800-160 MG 800-160 MG 0-05 t} 800-160 MG 00:00: 00 Bactrim DS Bactrim DS 2019-02 No 1{table BID Bactrim DS 800-160 MG 800-160 MG 0-05 t} 800-160 MG 00:00: 00 Gabapentin Gabapentin 2019-02 No 1{capsu TID Gabapentin 300 MG 300 MG 0-05 le} 300 MG 00:00: 00 Keflex 500 Keflex 500 2019-02 2020- No 1{capsu BID Keflex 500 MG MG 0-05 10-15 le} MG 00:00: 00:00 00 :00 Bactrim DS Bactrim DS 2019-02 2020- No 1{table BID Bactrim DS 800-160 MG 800-160 MG 0-05 10-15 t} 800-160 MG 00:00: 00:00 00 :00 Norethin Norethin 2019-0 Yes Na Roche 1 tablet Common Johnnie-Eth Johnnie-Eth 3-13 Spirit Estrad-FE Estrad-FE 00:00: - [place] 00 [facility] Norethin Norethin 2019-0 No 1{table QD Norethin Johnnie-Eth Johnnie-Eth 3-13 t} Johnnie-Eth Estrad-FE Estrad-FE 00:00: Estrad-FE 1-20 1-20 00 1-20 MG-MCG(24) MG-MCG(24) MG-MCG(24) Norethin Norethin 2018-0 No 1{table QD Norethin Johnnie-Eth Johnnie-Eth 3-13 t} Johnnie-Eth Estrad-FE Estrad-FE 00:00: Estrad-FE 1-20 1-20 00 1-20 MG-MCG(24) MG-MCG(24) MG-MCG(24) Norethin Norethin 2018-0 No 1{table QD Norethin Johnnie-Eth Johnnie-Eth 3-13 t} Johnnie-Eth Estrad-FE Estrad-FE 00:00: Estrad-FE 1-20 1-20 00 1-20 MG-MCG(24) MG-MCG(24) MG-MCG(24) Norethin Norethin 2018-0 No 1{table QD Norethin Johnnie-Eth Johnnie-Eth 3-13 t} Johnnie-Eth Estrad-FE Estrad-FE 00:00: Estrad-FE 1-20 1-20 00 1-20 MG-MCG(24) MG-MCG(24) MG-MCG(24) Norethin Norethin 2019-0 No 1{table QD Norethin Johnnie-Eth Johnnie-Eth 3-13 t} Johnnie-Eth Estrad-FE Estrad-FE 00:00: Estrad-FE 1-20 1-20 00 1-20 MG-MCG(24) MG-MCG(24) MG-MCG(24) Norethin Norethin 2019-0 No 1{table QD Norethin Common Johnnie-Eth Johnnie-Eth 3-13 t} Johnnie-Eth Spirit Estrad-FE Estrad-FE 00:00: Estrad-FE - [facility] 1-20 1-20 00 1-20 St MG-MCG(24) MG-MCG(24) MG-MCG(24) [facility] Norethin Norethin 2019-0 No 1{table QD Norethin Johnnie-Eth Johnnie-Eth 3-13 t} Johnnie-Eth Estrad-FE Estrad-FE 00:00: Estrad-FE 1-20 1-20 00 1-20 MG-MCG(24) MG-MCG(24) MG-MCG(24) Norethin Norethin 0 No 1{table QD Norethin Johnnie-Eth Johnnie-Eth 3-13 t} Johnnie-Eth Estrad-FE Estrad-FE 00:00: Estrad-FE 1-20 1-20 00 1-20 MG-MCG(24) MG-MCG(24) MG-MCG(24) Norethin Norethin 0 No 1{table QD Norethin Johnnie-Eth Johnnie-Eth 3-13 t} Johnnie-Eth Estrad-FE Estrad-FE 00:00: Estrad-FE 1-20 1-20 00 1-20 MG-MCG(24) MG-MCG(24) MG-MCG(24) Norethin Norethin 0 No 1{table QD Norethin Johnnie-Eth Johnnie-Eth 3-13 t} Johnnie-Eth Estrad-FE Estrad-FE 00:00: Estrad-FE 1-20 1-20 00 1-20 MG-MCG(24) MG-MCG(24) MG-MCG(24) Norethin Norethin 0 No 1{table QD Norethin Johnnie-Eth Johnnie-Eth 3-13 t} Johnnie-Eth Estrad-FE Estrad-FE 00:00: Estrad-FE 1-20 1-20 00 1-20 MG-MCG(24) MG-MCG(24) MG-MCG(24) Norethin Norethin 0 No 1{table QD Norethin Johnnie-Eth Johnnie-Eth 3-13 t} Johnnie-Eth Estrad-FE Estrad-FE 00:00: Estrad-FE 1-20 1-20 00 1-20 MG-MCG(24) MG-MCG(24) MG-MCG(24) Lancets Lancets 2018-0 Yes Na Roche one Comm on Super Thin Super Thin 4-17 Spi rit 00:00: - [facility] 00 [facility] Lancets Lancets 2018-0 No Lancets Super Thin Super Thin 4-17 Super Thin n/s n/s 00:00: n/s 00 Lancets Lancets 2018-0 No Lancets Super Thin Super Thin 4-17 Super Thin n/s n/s 00:00: n/s 00 Lancets Lancets 2018-0 No Lancets Super Thin Super Thin 4-17 Super Thin n/s n/s 00:00: n/s 00 Lancets Lancets 2018-0 No Lancets Super Thin Super Thin 4-17 Super Thin n/s n/s 00:00: n/s 00 Lancets Lancets 2018-0 No Lancets Super Thin Super Thin 4-17 Super Thin n/s n/s 00:00: n/s 00 Lancets Lancets 2018-0 No Lancets Comm on Super Thin Super Thin 4-17 Super Thin Spirit n/s n/s 00:00: n/s - [facility] 00 [facility] Lancets Lancets 2018-0 No Lancets Super Thin Super Thin 4-17 Super Thin n/s n/s 00:00: n/s 00 Lancets Lancets 2018-0 No Lancets Super Thin Super Thin 4-17 Super Thin n/s n/s 00:00: n/s 00 Lancets Lancets 2018-0 No Lancets Super Thin Super Thin 4-17 Super Thin n/s n/s 00:00: n/s 00 Lancets Lancets 2018-0 No Lancets Super Thin Super Thin 4-17 Super Thin n/s n/s 00:00: n/s 00 Lancets Lancets 2018-0 No Lancets Super Thin Super Thin 4-17 Super Thin n/s n/s 00:00: n/s 00 Lancets Lancets 2018-0 No Lancets Super Thin Super Thin 4-17 Super Thin n/s n/s 00:00: n/s 00 Lisinopril Lisinopril Yes Na Roche 1 tablet Common [facility] Loryna Loryna Yes Na Roche 1 tablet Comm on [facility] Metformin Metformin Yes Na Roche 1 tablet Common HCl HCl with meals [facility] Lisinopril Lisinopril No 1{table QD Lisinopril 20 MG 20 MG t} 20 MG Loryna Loryna No 1{table QD [place] 3-0.02 MG 3-0.02 MG t} 3-0.02 MG Metformin Metformin No 1{table BID Metformin HCl 500 MG HCl 500 MG t_with_ HCl 500 MG meals} Gabapentin Gabapentin No 1{capsu TID Gabapentin 300 MG 300 MG le} 300 MG Lisinopril Lisinopril No 1{table QD Lisinopril 20 MG 20 MG t} 20 MG L[place]na Loryna No 1{table QD [place] 3-0.02 MG 3-0.02 MG t} 3-0.02 MG Gabapentin Gabapentin No 1{capsu TID Gabapentin 300 MG 300 MG le} 300 MG Metformin Metformin No 1{table BID Metformin HCl 500 MG HCl 500 MG t_with_ HCl 500 MG meals} Metformin Metformin No 1{table BID Metformin HCl 500 MG HCl 500 MG t_with_ HCl 500 MG meals} Loryna Loryna No 1{table QD Loryna 3-0.02 MG 3-0.02 MG t} 3-0.02 MG Gabapentin Gabapentin No 1{capsu TID Gabapentin 300 MG 300 MG le} 300 MG Lisinopril Lisinopril No 1{table QD Lisinopril 20 MG 20 MG t} 20 MG Lisinopril Lisinopril No 1{table QD Lisinopril 20 MG 20 MG t} 20 MG Gabapentin Gabapentin No 1{capsu TID Gabapentin 300 MG 300 MG le} 300 MG Loryna Loryna No 1{table QD Loryna 3-0.02 MG 3-0.02 MG t} 3-0.02 MG Metformin Metformin No 1{table BID Metformin HCl 500 MG HCl 500 MG t_with_ HCl 500 MG meals} Lantus Lantus No QD Lantus SoloStar SoloStar SoloStar 100 UNIT/ML 100 UNIT/ML 100 UNIT/ML Metformin Metformin No 1{table BID Metformin HCl 500 MG HCl 500 MG t_with_ HCl 500 MG meals} Loryna Loryna No 1{table QD Loryna 3-0.02 MG 3-0.02 MG t} 3-0.02 MG Lisinopril Lisinopril No 1{table QD Lisinopril 20 MG 20 MG t} 20 MG Azithromyci Azithromyci No QD Azithromyc n 250 MG n 250 MG in 250 MG Gabapentin Gabapentin No 1{capsu TID Gabapentin 300 MG 300 MG le} 300 MG Lantus Lantus No QD Lantus Common SoloStar SoloStar SoloStar Spi rit 100 UNIT/ML 100 UNIT/ML 100 - CHI UNIT/ML [facility] Metformin Metformin No 1{table BID Metformin Common HCl 500 MG HCl 500 MG t_with_ HCl 500 MG Spirit meals} - [facility] Loryna Loryna No 1{table QD Loryna Common 3-0.02 MG 3-0.02 MG t} 3-0.02 MG [facility] Lisinopril Lisinopril No 1{table QD Lisinopril Common 20 MG 20 MG t} 20 MG [facility] Azithromyci Azithromyci No QD Azithromyc Common n 250 MG n 250 MG in 250 MG Sp arianna [facility] Gabapentin Gabapentin No 1{capsu TID Gabapentin Common 300 MG 300 MG le} 300 MG [facility] Metformin Metformin No 1{table BID Metformin HCl 500 MG HCl 500 MG t_with_ HCl 500 MG meals} Loryna Loryna No 1{table QD Loryna 3-0.02 MG 3-0.02 MG t} 3-0.02 MG Lantus Lantus No QD Lantus SoloStar SoloStar SoloStar 100 UNIT/ML 100 UNIT/ML 100 UNIT/ML Gabapentin Gabapentin No 1{capsu TID Gabapentin 300 MG 300 MG le} 300 MG Azithromyci Azithromyci No QD Azithromyc n 250 MG n 250 MG in 250 MG Lisinopril Lisinopril No 1{table QD Lisinopril 20 MG 20 MG t} 20 MG Lisinopril Lisinopril No 1{table QD Lisinopril 20 MG 20 MG t} 20 MG Metformin Metformin No 1{table BID Metformin HCl 500 MG HCl 500 MG t_with_ HCl 500 MG meals} Gabapentin Gabapentin No 1{capsu TID Gabapentin 300 MG 300 MG le} 300 MG Azithromyci Azithromyci No QD Azithromyc n 250 MG n 250 MG in 250 MG Loryna Loryna No 1{table QD Loryna 3-0.02 MG 3-0.02 MG t} 3-0.02 MG Lantus Lantus No QD Lantus SoloStar SoloStar SoloStar 100 UNIT/ML 100 UNIT/ML 100 UNIT/ML Metformin Metformin No 1{table BID Metformin HCl 500 MG HCl 500 MG t_with_ HCl 500 MG meals} Lisinopril Lisinopril No 1{table QD Lisinopril 20 MG 20 MG t} 20 MG Azithromyci Azithromyci No QD Azithromyc n 250 MG n 250 MG in 250 MG Lantus Lantus No QD Lantus SoloStar SoloStar SoloStar 100 UNIT/ML 100 UNIT/ML 100 UNIT/ML Gabapentin Gabapentin No 1{capsu TID Gabapentin 300 MG 300 MG le} 300 MG Loryna Loryna No 1{table QD Loryna 3-0.02 MG 3-0.02 MG t} 3-0.02 MG Metformin Metformin No 1{table BID Metformin HCl 500 MG HCl 500 MG t_with_ HCl 500 MG meals} Lisinopril Lisinopril No 1{table QD Lisinopril 20 MG 20 MG t} 20 MG Azithromyci Azithromyci No QD Azithromyc n 250 MG n 250 MG in 250 MG Lantus Lantus No QD Lantus SoloStar SoloStar SoloStar 100 UNIT/ML 100 UNIT/ML 100 UNIT/ML Gabapentin Gabapentin No 1{capsu TID Gabapentin 300 MG 300 MG le} 300 MG Loryna Loryna No 1{table QD Loryna 3-0.02 MG 3-0.02 MG t} 3-0.02 MG Lisinopril Lisinopril No 1{table QD Lisinopril 20 MG 20 MG t} 20 MG Metformin Metformin No 1{table BID Metformin HCl 500 MG HCl 500 MG t_with_ HCl 500 MG meals} Loryna Loryna No 1{table QD Loryna 3-0.02 MG 3-0.02 MG t} 3-0.02 MG Metformin Metformin No 1{table BID Metformin HCl 500 MG HCl 500 MG t_with_ HCl 500 MG meals} Gabapentin Gabapentin No 1{capsu TID Gabapentin 300 MG 300 MG le} 300 MG Lisinopril Lisinopril No 1{table QD Lisinopril 20 MG 20 MG t} 20 MG Loryna Loryna No 1{table QD Loryna 3-0.02 MG 3-0.02 MG t} 3-0.02 MG Immunizations Ordered Filled Immunization Date Status Comments Sourc e Immunization Name Name [facility] 2013-02-09 Completed [facility] TDAP 2013-02-09 Completed University of 00:00:00 [facility] TDAP 2013-02-09 Completed University of 00:00:00 [facility] TDAP 2013-02-09 Completed University of 00:00:00 [facility] TDAP 2013-02-09 Completed University of 00:00:00 [facility] TDAP 2013-02-09 Completed University of 00:00:00 [facility] TDAP 2013-02-09 Completed University of 00:00:00 [facility] TDAP 2013-02-09 Completed University of 00:00:00 [facility] TDAP 2013-02-09 Completed University of 00:00:00 [facility] TDAP 2013-02-09 Completed University of 00:00:00 [facility] TDAP 2013-02-09 Completed University of 00:00:00 [facility] TDAP 2013-02-09 Completed University of 00:00:00 [facility] TDAP 2013-02-09 Completed University of 00:00:00 [facility] TDAP 2013-02-09 Completed University of 00:00:00 [facility] Vital Signs Vital Name Observation Time Observation Value Comments Source Systolic blood 2021-10-10 16:15:00 109 mm[Hg] Univer sity of pressure [facility] Diastolic blood 2021-10-10 16:15:00 74 mm[Hg] Unive rsity of pressure [facility] Heart rate 2021-10-10 16:15:00 90 /min [facility] Body temperature 2021-10-10 16:15:00 37.22 Nita [facility] rate 2021-10-10 16:15:00 18 /min [facility] Body height 2021-10-10 16:15:00 160 cm Universi ty of [facility] Body weight 2021-10-10 16:15:00 102.967 kg Universi ty of [facility] BMI 2021-10-10 16:15:00 40.21 kg/m2 Universi ty of [facility] Oxygen saturation in 2021-10-10 16:15:00 98 /min University of Arterial blood by [facility] Pulse oximetry Branch Systolic blood 2021-07-01 21:03:00 115 mm[Hg] Univer sity of pressure [facility] Diastolic blood 2021-07-01 21:03:00 75 mm[Hg] Unive rsity of pressure [facility] Heart rate 2021-07-01 21:03:00 81 /min Universi ty of [facility] Body weight 2021-07-01 21:03:00 103.874 kg Universi ty [facility] BMI 2021-07-01 21:03:00 40.57 kg/m2 Universi ty [facility] Oxygen saturation in 2021-07-01 21:03:00 97 /min University of Arterial blood by [facility] Pulse oximetry Branch height 2019-11-22 10:00:00 63 [in_i] Common [facility] weight 2019-11-22 10:00:00 223.8 [lb_av] Common [facility] temperature 2019-11-22 10:00:00 97.8 [degF] Common [facility] bmi 2019-11-22 10:00:00 39.64 kg/m2 [facility] oximetry 2019-11-22 10:00:00 97 % [facility] respiratory rate 2019-11-22 10:00:00 15 /min Comm on [facility] blood pressure 2019-11-22 10:00:00 118 mm[Hg] Common [facility] - systolic [facility] blood pressure 2019-11-22 10:00:00 68 mm[Hg] Common [facility] - diastolic [facility] height 2019-11-14 13:00:00 63 [in_i] Common [facility] weight 2019-11-14 13:00:00 223.8 [lb_av] Common [facility] temperature 2019-11-14 13:00:00 97.7 [degF] Common [facility] bmi 2019-11-14 13:00:00 39.64 kg/m2 Common [facility] oximetry 2019-11-14 13:00:00 97 % Common [facility] respiratory rate 2019-11-14 13:00:00 15 /min Comm on [facility] blood pressure 2019-11-14 13:00:00 110 mm[Hg] Common [facility] systolic [facility] blood pressure 2019-11-14 13:00:00 68 mm[Hg] Common [facility] diastolic [facility] Procedures Procedure Date / Time Performed Performing Clinician [facility] e LIPID PANEL 2022-01-28 18:11:00 Rita Baron [facility] ([id number])(TOTAL Medical Branch CHOLESTEROL, TRIGLYCERIDES, HDL) CBC WITH DIFF 2022-01-28 18:11:00 Rita Baron [facility] FREE T4 2022-01-28 18:11:00 Rita Baron [facility] ASSIGNMENT OF BENEFITS 2022-01-28 17:05:10 Doctor Unassigned, No [facility] Branch POCT SARS-COV-2 2021-10-10 16:22:00 Micheal Calles [facility] ANTIGEN (BINAX NOW) Medical Bran ch POCT HEMOGLOBIN A1C 2021-07-01 21:12:00 Rita Baron [facility] [place] Branch Encounters Start End Encounter Admission Attending Care Care Encounter Source Date/Time Date/Time Type Type Clinicians Facility Department ID 2021-03-06 [facility] [id number] 2 Common 12:28:47 [id number] [facility] 2021-03-06 Outpatient Roche, Na STLC STLC [id number] 2 Common 12:28:12 [id number] [facility] 2021-03-06 Outpatient Roche, Na STLC STLC [id number] 2 Common 12:25:04 [id number] [facility] 2021-03-06 Outpatient Roche, Na STLMLC STLMLC [id number] 2 Common 12:17:52 [id number] [facility] 2021-03-06 Outpatient Roche, Na STLMLC STLMLC [id number] 2 Common 12:15:18 [id number] [facility] 2021-03-06 Outpatient Roche, Na STLMLC STLMLC [id number] 2 Common 12:13:42 [id number] [facility] 2021-03-06 Outpatient Roche, Na STLMLC STLMLC [id number] 2 Common 11:59:23 [id number] [facility] 2021-03-06 Outpatient Roche, Na STLMLC STLMLC [id number] 2 Common 11:58:53 [id number] [facility] 2021-03-06 Outpatient Roche, Na STLMLC STLMLC [id number] 2 Common 11:56:53 [id number] [facility] 2021-03-06 Outpatient Roche, Na STLMLC STLMLC [id number] 2 Common 11:54:19 [id number] [facility] 2021-03-06 Outpatient Roche, Na STLMLC STLMLC [id number] 2 Common 11:52:02 [id number] [facility] 2021-03-06 Outpatient Roche, Na STLMLC STLMLC [id number] 2 Common 11:51:35 [id number] [facility] 2021-03-06 Outpatient Roche, Na STLMLC STLMLC [id number] 2 Common 11:51:00 [id number] [facility] 2021-03-06 Outpatient Roche, Na STLMLC STLMLC [id number] 2 Common 11:49:29 [id number] [facility] 2021-03-06 Outpatient Roche, Na STLMLC STLMLC [id number] 2 Common 11:48:31 [id number] [facility] 2021-03-06 Outpatient Roche, Na STLMLC STLMLC [id number] 2 Common 11:46:10 [id number] [facility] 2022-06-10 2022-06-10 Outpatient R JASON [facility] [id number] Univers 10:30:00 10:30:00 [place] ity [facility] 2022-01-29 2022-01-29 [facility]phone [facility] [id number] Univers 00:00:00 00:00:00 [place] 350.1.13.10 it y [facility] 4.2.7.2.686 Ahmet as CIPRIANO?BLEA [phone] [address] OFFICE [facility] 2022-01-28 2022-01-28 [facility], Ang - Domingo [facility] 1.2.840.1 [id number] Univers 12:00:00 12:16:22 Visit Jason P[facility]bliKo [facility] [id number] ity of [facility] [id number] Ahmet as CIPRIANO?BLEA [id number] [facility] [address] [facility] OFFICE [facility] 2022-01-28 2022-01-28 Outpatient R JASON [facility] [id number] Univers 11:00:00 11:00:00 [facility] 2022-01-28 2022-01-28 Orders Doctor MICHEAL 1.2.840.114 [id number] Univers 00:00:00 00:00:00 Only Unassigned, GENARO 350.1.13.10 ity of [place] [facility] 4.2.7.2.686 Ahmet as [phone] [address] 2022-01-28 2022-01-28 Telephone [facility] [id number] Univers 00:00:00 00:00:00 [place] 350.1.13.10 it y of [facility] 4.2.7.2.686 Ahmet as CIPRIANO?BLEA [id number] [address] OFFICE [facility] 2022-01-28 2022-01-28 Telephone Hoda [facility] 1.2.840.114 [id number] Univers 00:00:00 00:00:00 Radha DUNNTON 350.1.13.10 ity of [place] 4.2.7.2.[place] [phone] De dical NAL [address] BUILDING 2022-01-28 2022-01-28 Telephone Rita Baron [facility] [id number] Univers 00:00:00 00:00:00 HEALTH 350.1.13.10 it y of [place] 4.2.7.2.686 Ahmet as CIPRIANO?BLEA [id number] De dical KNEY [address] MEDICAL OFFICE BUILDING 2021-12-19 2021-12-19 Outpatient Jaime RAMOS [facility] [id number] Univers 13:00:00 13:00:00 [facility] 2021-12-06 2021-12-06 Outpatient Jaime SANCHEZ [facility] [id number] Univers 13:30:00 13:30:00 [facility] 2021-11-08 2021-11-08 Outpatient Jaime SANCHEZ [facility] [id number] Univers 10:00:00 10:00:00 [facility] 2021-10-29 2021-10-29 Outpatient Jaime RAMOS [facility] [id number] Univers 10:00:00 10:00:00 [facility] 2021-10-29 2021-10-29 Outpatient Jaime RAMOS [facility] [id number] Univers 10:00:00 10:00:00 [facility] 2021-10-29 2021-10-29 Outpatient Jaime RAMOS [facility] [id number] Univers 10:00:00 10:00:00 [facility] 2021-10-29 2021-10-29 Outpatient Jaime RAMOS [facility] [id number] Univers 10:00:00 10:00:00 [facility] 2021-10-29 2021-10-29 Outpatient Jaime RAMOS [facility] [id number] Univers 10:00:00 10:00:00 [facility] 2021-10-29 2021-10-29 Outpatient Jaime RAMOS [facility] [id number] Univers 10:00:00 10:00:00 GLADYS anushka [facility] 2021-10-10 2021-10-10 Outpatient R [facility] [id number] Univers 15:20:00 15:20:00 ity [facility] 2021-10-10 2021-10-10 Outpatient R CALLES [facility] [id number] Univers 11:20:00 11:42:20 MICHEAL [facility] 2021-10-10 2021-10-10 Urgent Stevan [facility] .2.840.114 [id number] Univers 11:20:00 11:42:20 Care Unknown, [facility] 350.1.13.10 ity of [place] 4.2.7.2.686 Ahmet as CIPRIANO?BLEA [phone] De vannesa [address] MEDICAL OFFICE BUILDING 2021-10-04 2021-10-04 [facility] [id number] Univers 14:00:00 14:00:00 [facility] 2021-09-06 2021-09-06 [facility] [id number] Univers 13:00:00 13:00:00 [facility] 2021-08-02 2021-08-02 [facility] [id number] Univers 15:30:00 15:30:00 DENAE [facility] 2021-08-01 2021-08-01 Telephone [facility] ..840.114 [id number] Univers 00:00:00 00:00:00 Radha BEEBE 350.1.13.10 ity of [place] [phone] De vannesa COWART [address] [place] [address] BUILDING 2021-08-01 2021-08-01 Telephone Gonzalez [facility] 1.2.840.114 [id number] Univers 00:00:00 00:00:00 [facility] 350.1.13.10 it y of [place] 4.2.7.2.686 Ahmet as CIPRIANO?BLEA [phone] De vannesa [place] [address] MEDICAL OFFICE [facility] 2021-07-05 2021-07-05 Outpatient R DANIEL [facility] [id number] Univers 10:00:00 10:00:00 JOSSELYNRACIEL longoria [facility] 2021-07-04 2021-07-04 Telephone Rita Baron [facility] [id number] Univers 00:00:00 00:00:00 HEALTH 350.1.13.10 it y of [place] 4.2.7.2.686 Ahmet as CIPRIANO?BLEA [phone] [address] MEDICAL OFFICE [facility] 2021-07-02 2021-07-02 Telephone Tod [facility] [id number] Univers 00:00:00 00:00:00 HEALTH 350.1.13.10 it y of [place] 4.2.7.2.686 Ahmet as CIPRIANO?BLEA [id number] [address] OFFICE [facility] 2021-07-02 2021-07-02 Telephone Tod, [facility] [id number] Univers 00:00:00 00:00:00 HEALTH 350.1.13.10 it y of [place] 4.2.7.2.686 Ahmet as CIPRIANO?BLEA [phone] [address] OFFICE [facility] 2021-07-01 2021-07-01 Outpatient R TOD [facility] [id number] Univers 16:00:00 17:10:06 TOD SALINAS anushka [facility] 2021-07-01 2021-07-01 Outpatient R TOD [facility] [id number] Univers 16:00:00 17:10:06 TOD SALINAS anushka [facility] 2021-07-01 2021-07-01 [facility] 1.2.840.114 [id number] Univers 16:00:00 17:10:06 Visit HEALTH 350.1.13.10 it y of [place] 4.2.7.2.686 Ahmet as CIPRIANO?BLEA [phone] [address] MEDICAL OFFICE [facility] 2021-06-18 2021-06-18 Outpatient R [facility] [id number] Univers 10:12:30 23:59:00 ANGELITA ity of [facility] 2021-06-18 2021-06-18 [facility] 1.2.840.114 [id number] Univers 10:12:30 23:59:00 Encounter Angelita HEALTH 350.1.13.10 ity of [place] 4.2.7.2.686 Ahmet as CIPRIANO?BLEA [phone] De dical [place] [address] [facility] OFFICE [facility] 2021-06-18 2021-06-18 [facility] 1.2.840.114 [id number] Univers 09:20:00 10:11:32 Care Angelita HEALTH 350.1.13.10 it y of [place] 4.2.7.2.686 Ahmet as CIPRIANO?BLEA [id number] De dical DEYSI [address] [facility] OFFICE [facility] 2021-06-18 2021-06-18 [facility] 1.2.840.114 [id number] Univers 09:48:04 10:11:00 Encounter Angelita HEALTH 350.1.13.10 ity of [place] 4.2.7.2.686 Ahmet as CIPRIANO?BLEA [id number] [facility]Mobile [facility] HospitalAPPLE [address] [facility] OFFICE [facility] 2021-05-27 2021-05-27 Telephone [facility] [id number] Univers 00:00:00 00:00:00 Josselyn HEALTH 350.1.13.10 it y of [place] 4.2.7.2.686 Ahmet as CIPRIANO?BLEA [phone] [facility] [address] [facility] OFFICE [facility] 2021-05-24 2021-05-24 Telephone NGOZI Adan 1.2.840.114 [id number] Univers 00:00:00 00:00:00 Karin Y 350.1.13.10 i ty of [place] 4.2.7.2.686 Ahmet as BANK [phone] [facility] BLDG. [address] 2021-05-22 2021-05-22 Outpatient R RADHA DRUMMOND [facility] [id number] Univers 10:30:00 11:35:17 ERIKA DRUMMONDSEDRICK ity [facility] 2021-05-22 2021-05-22 Office Hoda [facility] 1.2.840.114 [id number] Univers 10:30:00 11:35:17 Visit Radha BEEBE 350.1.13.10 ity of [place] [id number] [facility] [address] 2021-05-22 2021-05-22 Outpatient R RADHA DRUMMOND [facility] [id number] [facility] 10:30:00 10:30:00 [facility] 2021-05-03 2021-05-03 Telephone [facility] [id number] Univers 00:00:00 00:00:00 Josselyn HEALTH 350.1.13.10 it y of [facility] 4.2.7.2.686 Ahmet as CIPRIANO?BLEA [id number] [facility] [address] OFFICE [facility] 2021-04-12 2021-04-12 Telephone [facility] [id number] Univers 00:00:00 00:00:00 Josselyn HEALTH 350.1.13.10 it y of [facility] 4.2.7.2.686 Ahmet as CIPRIANO?BLEA [phone] [address] 2021-04-12 2021-04-12 Telephone [facility] [id number] Univers 00:00:00 00:00:00 Josselyn HEALTH 350.1.13.10 it y of [place] 4.2.7.2.686 Ahmet as CIPRIANO?BLEA [id number] [address] 2021-04-11 2021-04-11 Orders Doctor BURTON 1.2.840.114 [id number] Univers 00:00:00 00:00:00 Only Unassigned, GENARO 350.1.13.10 ity of [place] [facility] 4.2.7.2.686 Ahmet as [phone] [address] 2021-04-10 2021-04-10 Telephone [facility] [id number] Univers 00:00:00 00:00:00 [facility] 350.1.13.10 it y of [facility] 4.2.7.2.686 Ahmet as CIPRIANO?BLEA [phone] De vannesa [facility] [address] MEDICAL OFFICE BUILDING 2021-04-05 2021-04-05 [facility] [id number] Univers 10:00:00 10:40:49 [facility] 2021-04-05 2021-04-05 Outpatient [facility] [id number] Univers 10:00:00 10:00:00 [facility] 2021-04-04 2021-04-04 Telephone [facility] 1.2.840.114 [id number] Univers 00:00:00 00:00:00 Gladys BEEBE 350.1.13.10 i ty of [place] [phone] De dical NAL [address] [facility] 2021-04-03 2021-04-03 Office [facility] [id number] Univers 15:45:00 16:15:00 Visit Gladys BEEBE 350.1.13.10 i ty of [place] [id number] De dical NAL [address] [facility] 2021-04-03 2021-04-03 Outpatient R RICHARD [facility] [id number] Univers 15:45:00 15:45:00 [facility] 2021-04-03 2021-04-03 Outpatient R RICHARD [facility] [id number] Univers 15:45:00 15:45:00 [facility] 2021-04-03 2021-04-03 Refill [facility] 1.2.215.995 [id number] Univers 00:00:00 00:00:00 Gladys BEEBE 350.1.13.10 i ty [place] [phone] De dicjack NAL [address] [facility] 2021-03-19 2021-03-19 Outpatient R DONALD [facility] [id number] Univers 10:00:00 10:00:00 LYDIA itanushka [facility] 2021-03-18 2021-03-18 Telephone [facility] 1.2.183.860 [id number] Univers 00:00:00 00:00:00 [facility] 350.1.13.10 it y of [place] 4.2.7.2.686 Ahmet as CIPRIANO?BLEA [phone] De vannesa [address] MEDICAL OFFICE [facility] 2021-03-18 2021-03-18 Telephone [facility] 1.2.840.114 [id number] Univers 00:00:00 00:00:00 Wondiful A HEALTH 350.1.13.10 ity [facility] 4.2.7.2.686 Ahmet as CIPRIANO?BLEA [phone] De dicjack JOEY [address] [facility] OFFICE [facility] 2021-03-15 2021-03-15 Outpatient R OLYA [facility] [id number] Univers 16:00:00 16:50:39 FATEMEH gracielaanushka [facility] 2021-03-15 2021-03-15 Office Olya [facility] 1.2.840.114 [id number] Univers 16:00:00 16:50:39 Visit [facility] 350.1.13.10 it y of [place] 4.2.7.2.686 Ahmet as CIPRIANO?BLEA [phone] De vannesa [address] [address] MEDICAL OFFICE [facility] 2021-03-15 2021-03-15 Outpatient R OLYA [facility] [id number] Univers 16:00:00 16:50:39 FATEMEH longoria [facility] 2021-03-05 2021-03-05 Outpatient R DANIEL [facility] [id number] [address] 14:30:00 14:30:00 JOSSELYN longoria [facility] 2021-02-15 2021-02-15 [facility] [id number] [address] 00:00:00 00:00:00 Wondiful A HEALTH [id number] ity of [place] [id number] Ahmet as CIPRIANO?BLEA [phone] [address] MEDICAL OFFICE [facility] 2021-01-24 2021-01-24 Orders Doctor MICHEAL [id number] [address] 00:00:00 00:00:00 Only Unassigned, GENARO [id number] ity of [place] [facility] [id number] Ahmet as [phone] [address] 2021-01-21 2021-01-21 [facility], Ang - Db [facility] [place] 1.2.840.1 14 [id number] Univers 14:29:38 14:44:38 Visit DarlingMiguel schusterjersonruby [facility] 350.1.13.1 0 ity of [facility] 4.2.7.2.686 Ahmet as CIPRIANO?BLEA [phone] [facility] [address] MEDICAL OFFICE [facility] 2021-01-21 2021-01-21 Office [facility] 1.2.840.114 [id number] Univers 13:26:38 14:32:25 Visit Wonvalerio A HEALTH 350.1.13.10 ity of [facility] 4.2.7.2.686 Ahmet as CIPRIANO?BLEA [phone] [address] OFFICE [facility] 2021-01-21 2021-01-21 [facility]patient [facility] [id number] Univers 13:15:00 14:32:25 WONDIFUL ity o f [facility] 2021-01-09 2021-01-09 Emergency X [facility] ERT [id number] Univers 20:52:00 22:30:00 TRUDY ity of [facility] 2021-01-09 2021-01-09 Emergency [facility] 1.2.048.384 [id number] Univers 20:52:00 22:30:00 Trudy R [place] 350.1.13.10 i ty of [place].2.7.2.[place] [phone] [facility] [address] 2021-01-09 2021-01-09 Orders Doctor MICHEAL 1.2.840.114 [id number] Univers 00:00:00 00:00:00 Only Unassigned, GENARO 350.1.13.10 ity of [place] [facility] 4.2.7.2.686 Ahmet as [phone] [facility] [address] 2021-01-09 2021-01-09 Telephone MICHEAL Clarke 1.2.095.977 [id number] Univers 00:00:00 00:00:00 Qujagdeep LAM 350.1.13.10 ity of [facility] 4.2.7.2.686 Ahmet as [phone] [facility] [address] 2021-01-05 2021-01-05 Lai Devlin [facility] 1.2.840.114 [id number] Univers 00:00:00 00:00:00 Tylor BEEBE 350.1.13.10 ity of [place].2.7.2.[place] [facility] [phone] [facility] 092 [facility] 2020-12-07 2020-12-07 Telephone [facility] 1.2.840.114 [id number] Univers 00:00:00 00:00:00 Wondiful A HEALTH 350.1.13.10 ity of [facility] 4.2.7.2.686 Ahmet as CIPRIANO?BLEA [phone] [facility] [address] MEDICAL OFFICE [facility] 2020-11-30 2020-11-30 Telephone [facility] 1.2.814.958 [id number] Univers 00:00:00 00:00:00 Linette A Health 350.1.13.10 i ty of [place] 4.2.7.2.686 Ahmet as Cipriano?Blea [phone] [facility] 044 [facility] Office [facility] 2020-11-30 2020-11-30 Telephone [facility] 1.2.369.026 [id number] Univers 00:00:00 00:00:00 Linette A Health 350.1.13.10 i ty of [place] 4.2.7.2.686 Ahmet as Cipriano?Blea [phone] Me vannesa king 044 [facility] Office [facility] 2020-11-29 2020-11-29 Office [facility] 1.2.840.114 [id number] Univers 09:25:19 09:55:19 Visit Linette [facility] Health 350.1.13.10 i ty of [place] 4.2.7.2.686 Ahmet as Cipriano?Blea [phone] De vannesa king 044 [facility] Office [facility] 2020-11-29 2020-11-29 Outpatient [facility] [id number] Univers 09:30:00 09:30:00 LINETTE longoria [facility] 2020-11-23 2020-11-23 Outpatient [facility] [id number] Univers 13:30:00 14:32:48 JOSSELYN anushka [facility] 2020-11-23 2020-11-23 Office [facility] 1.2.840.114 [id number] Univers 13:29:10 14:32:48 Visit [facility] 350.1.13.10 it y of [place] 4.2.7.2.686 Ahmet as ICPRIANO?BLEA [phone] De vannesa KING 220 [facility] OFFICE [facility] 2020-11-23 2020-11-23 Outpatient [facility] [id number] Univers 13:30:00 13:30:00 JOSSELYN anushka [facility] 2020-11-23 2020-11-23 Telephone [facility] 1..[id number] [id number] Univers 00:00:00 00:00:00 [facility] 350.1.13.10 it y of [place] 4.2.7.2.686 Ahmet as Cipriano?Blea [phone] De vannesa king 220 [facility] Office [facility] 2020-11-23 2020-11-23 Telephone [facility] 1.2.840.114 [id number] Univers 00:00:00 00:00:00 [facility] 350.1.13.10 ity of [place] 4.2.7.2.686 Ahmet as Cipriano?Blea [phone] De vannesa king 092 [facility] Office [facility] 2020-11-20 2020-11-20 Outpatient R DANIEL [facility] [id number] Univers 13:30:00 13:30:00 JOSSELYN longoria of [facility] 2020-11-13 2020-11-13 Office NGOZI Adan [id number] [id number] [facility] 12:59:34 13:52:00 Visit Karin Madrigal 350.1.13.10 i ty of [place] 4.2.7.2.686 Ahmet as BANK [phone] [facility] BLDG. [address] 2020-11-13 2020-11-13 Outpatient R LOCO [facility] [id number] Univers 13:15:00 13:15:00 KARIN longoria o f [facility] 2020-11-07 2020-11-07 Case [facility] 1.2.489.446 [id number] Univers 00:00:00 00:00:00 Management Gladys Beebe 350.1.13.10 ity of [place].2.[place] Profess[place] [phone] De dical nal 134 [facility] 2020-11-01 2020-11-01 Telephone Richard [facility] 1.2.840.114 [id number] Univers 00:00:00 00:00:00 Gladys Beebe 350.1.13.10 i ty of [place]2.7.2.686 [place] Profess[place] [phone] De dical nal 134 [facility] 2020-10-29 2020-10-29 Smasher Hand 2, Adc Lab [facility] 1.2.840.114 [id number] Univers 14:04:55 14:19:55 Visit Gladys Ramos 350.1.13.10 ity of [place] 4.2.7.2.686 [place] Professio [phone] De dical nal 353 [facility] 2020-10-29 2020-10-29 Office Richard [facility] 1.2.220.392 [id number] Univers 13:11:40 14:02:18 Visit Gladys Beebe 350.1.13.10 i ty of [place] 4.2.7.2.[place] Profess[place] [phone] De dical nal 134 [facility] 2020-10-29 2020-10-29 Outpatient [facility] [id number] Univers 11:00:00 11:00:00 [facility] 2020-10-29 2020-10-29 Orders Doctor BURTON 1.2.840.114 [id number] Univers 00:00:00 00:00:00 Only Unassigned, GENARO 350.1.13.10 ity of [facility] 4.2.7.2.686 Ahmet as [phone] [address] 2020 2020 [facility] [id number] Univers 14:15:00 14:15:00 KARIN ity o f [facility] 2020-10-24 2020-10-24 Outpatient Jaime [facility] [id number] Univers 15:00:00 15:00:00 [facility] 2020-10-10 2020-10-10 Telephone [facility] 1.2.010.905 [id number] Univers 00:00:00 00:00:00 Josselyn Beebe 350.1.13.10 i ty of [place].2.[place] Profess[place] [phone] De dical [facility] 220 [facility] 2020-10-05 2020-10-05 Outpatient Jaime SALGADO [facility] [id number] Univers 14:30:00 14:30:00 WONDIFUL ity o f [facility] 2020-10-04 2020-10-04 Outpatient [facility] [id number] Univers 15:00:00 15:00:00 KARIN ity o f [facility] 2020-10-03 2020-10-03 Outpatient Jaime RAMOS [facility] [id number] Univers 14:00:00 14:00:00 GLADYS [facility] 2020-09-26 2020-09-26 Outpatient Ja[facility] [id number] Univers 13:45:00 13:45:00 LYDIA longoria [facility] 2020-09-24 2020-09-24 Outpatient R TYLOR DEVLIN [facility] [id number] Univers 00:00:00 00:00:00 TYLOR DEVLIN [facility] 2020-09-14 2020-09-14 Outpatient TYLOR REILLY [facility] [id number] Univers 16:20:00 16:20:00 TYLOR DEVLIN [facility] 2020-09-11 2020-09-11 Outpatient TYLOR REILLY [facility] [id number] Univers 11:00:00 11:00:00 TYLOR DEVLIN anushka [facility] 2020-09-06 2020-09-06 Office [facility] 1.2.840.114 [id number] 14:45:51 17:24:18 Visit Wonful [facility] 350.1.13.10 [place] 4.2.7.2.686 Professio [phone] nal [address] 2020-09-06 2020-09-06 Outpatient R DAMIAN [facility] [id number] Univers 14:30:00 14:30:00 WONDIFUL ity o f [facility] 2020-09-06 2020-09-06 Outpatient R DAMIAN [facility] [id number] Univers 14:30:00 14:30:00 WONDIFUL ity o f [facility] 2020-08-24 2020-08-24 Outpatient R SUBHA [facility] [id number] Univers 14:30:00 14:30:00 JC [facility] 2020-08-24 2020-08-24 Outpatient R SUBHA [facility] [id number] Univers 14:30:00 14:30:00 JC [facility] 2020-08-23 2020-08-23 Orders Doctor BURTON 1.2.840.114 [id number] Univers 00:00:00 00:00:00 Only Unassigned, GENARO 350.1.13.10 ity of [place] [facility] 4.2.7.2.686 Ahmet as [phone] [address] 2020-08-17 2020-08-17 Outpatient R CHAS [facility] [id number] Univers 14:30:00 15:32:02 BETHEL anushka [facility] 2020-08-17 2020-08-17 Outpatient R CHAS [facility] [id number] Univers 14:30:00 14:30:00 BETHEL anushka [facility] 2020-08-13 2020-08-13 Outpatient R DONALD [facility] [id number] Univers 10:00:00 10:00:00 LYDIA itanushka [facility] 2020-08-07 2020-08-07 Outpatient Jaime BENNETT [facility] [id number] Univers 11:00:00 11:00:00 [facility] 2020-07-03 2020-07-03 Outpatient Jaime BENNETT [facility] [id number] Univers 09:30:00 09:30:00 [facility] 2020-06-20 2020-06-20 Outpatient R RICKLOGAN CULVER [facility] [id number] Univers 19:30:00 19:30:00 SNEHAEMELYN GRAFFKYShelley [facility] 2020-06-15 2020-06-15 Outpatient R [facility] [id number] Univers 10:45:00 10:45:00 [facility] 2020-06-15 2020-06-15 Outpatient R SINCERE [facility] [id number] Univers 09:00:00 09:00:00 SEUN [facility] 2020-06-11 2020-06-11 Outpatient R EUGENIA [facility] [id number] Univers 00:00:00 00:00:00 [facility] 2020-06-05 2020-06-05 Outpatient R EUGENIA [facility] [id number] Univers 14:15:00 14:15:00 LETTY [facility] 2020-05-25 2020-05-25 Outpatient R TYLOR DEVLIN [facility] [id number] Univers 11:20:00 11:20:00 TYLOR DEVLIN [facility] 2020-05-22 2020-05-22 Outpatient R EUGENIA, [facility] [id number] Univers 14:45:00 14:45:00 LETTY [facility] 2020-05-18 2020-05-18 Outpatient R CHAS, [facility] [id number] Univers 09:00:00 09:00:00 BETHEL [facility] 2020-05-08 2020-05-08 Outpatient R RADHA AVITIA [facility] [id number] Univers 14:45:00 14:45:00 [facility] 2020-05-08 2020-05-08 Outpatient R RADHA AVITIA [facility] [id number] Univers 11:15:00 11:15:00 [facility] 2020-05-03 2020-05-03 Outpatient R NIKOS, [facility] [id number] Univers 10:00:00 10:00:00 MICKI [facility] 2020-04-26 2020-04-26 Outpatient R RICHARD, [facility] [id number] Univers 00:00:00 00:00:00 GLADYS [facility] 2020-04-26 2020-04-26 (TEL) STLMLC STLMLC [id number] Co mmon 00:00:00 00:00:00 [facility] 2020-04-26 2020-04-26 (TEL) STLMLC STLMLC [id number] Co mmon 00:00:00 00:00:00 [facility] 2020-04-24 2020-04-24 Outpatient TYLOR REILLY [facility] [id number] Univers 00:00:00 00:00:00 TYLOR DEVLIN [facility] 2020-04-17 2020-04-17 Outpatient TYLOR REILLY [facility] [id number] Univers 00:00:00 00:00:00 TYLOR DEVLIN [facility] 2020-04-09 2020-04-09 (TEL) STLMLC STLMLC [id number] Co mmon 00:00:00 00:00:00 [facility] 2020-04-04 2020-04-04 OFFICE STLMLC STLMLC [id number] Co mmon 00:00:00 00:00:00 VISIT Spirit ESTAB PT - CHI LEVEL 4 [facility] 2020-03-20 2020-03-20 Outpatient TYLOR REILLY [facility] [id number] Univers 11:00:00 11:00:00 TYLOR DEVLIN [facility] 2020-03-19 2020-03-19 (TEL) STLMLC STLMLC [id number] Co mmon 00:00:00 00:00:00 Spirit - CHI [facility] 2020-03-19 2020-03-19 OFFICE STLMLC STLMLC [id number] Co mmon 00:00:00 00:00:00 VISIT EST Spir it PT LEVEL 3 - CHI [facility] 2020-03-16 2020-03-16 Outpatient Jaime BRUNERQUITATYLOR Meade [facility] [id number] Univers 15:20:00 15:20:00 QUITA, TYLOR [facility] 2020-03-13 2020-03-13 Outpatient Jaime BRUNERQUITA, TYLOR [facility] [id number] Univers 11:00:00 11:00:00 TYLOR DEVLIN [facility] 2020-03-09 2020-03-09 Outpatient Jaime TELLO [facility] [id number] Univers 13:00:00 13:00:00 JANE owensy o f [facility] 2020-02-15 2020-02-15 OFFICE STLMLC STLMLC [id number] Co mmon 00:00:00 00:00:00 VISIT EST Spir it PT LEVEL 3 - CHI [facility] 2020-02-13 2020-02-13 Outpatient R [facility] [id number] Univers 09:00:00 09:00:00 [facility] 2020-01-25 2020-01-25 OFFICE STLMLC STLMLC [id number] Co mmon 00:00:00 00:00:00 VISIT EST Spir it PT LEVEL 3 - CHI [facility] 2020-01-24 2020-01-24 (TEL) STLMLC STLMLC [id number] Co mmon 00:00:00 00:00:00 Spirit - CHI [facility] 2020-01-23 2020-01-23 Outpatient TYLOR REILLY [facility] [id number] Univers 10:00:00 10:00:00 TYLOR DEVLIN anushka [facility] 2020-01-02 2020-01-02 Outpatient TYLOR REILLY [facility] [id number] Univers 13:00:00 13:00:00 TYLOR DEVLIN [facility] 2019-12-07 2019-12-07 OFFICE STLMLC STLMLC [id number] Co mmon 00:00:00 00:00:00 VISIT EST Spir it PT LEVEL 3 - CHI [facility] 2019-11-22 2019-11-22 OFFICE STLMLC STLMLC [id number] Co mmon 00:00:00 00:00:00 VISIT Spirit ESTAB PT - CHI LEVEL 4 [facility] 2019-11-14 2019-11-14 OFFICE STLMLC STLMLC [id number] Co mmon 00:00:00 00:00:00 VISIT EST Spir it PT LEVEL 3 - CHI [facility] 2019-10-26 2019-10-26 Outpatient Jaime RAMOS [facility] [id number] Univers 00:00[facility]00 [facility]00[facility] [id number] Common 13:40:00 13:40:00 t Ipsat Therapies [facility] it [facility] Family - Family Medicine [facility] 2019-10-18 2019-10-18 Outpatient Jaime RAMOS [facility] [id number] Univers 13:30:00 13:30:00 GLADYS [facility] 2018-09-16 2018-09-16 Outpatient Jaime TOLEDO [facility] [id number] Univers 14:45:00 17:13:50 MARÍA [facility] 2018-05-14 2018-05-14 Outpatient [facility] [id number] Common 11:52:00 11:52:[address] [facility] 2018-04-27 2018-04-27 Outpatient [facility] [id number] Common 10:40:00 10:40:00 t [facility] 2018-04-27 2018-04-27 Outpatient [facility] [id number] Common 10:07:00 10:07:00 t [facility] 2018-04-27 2018-04-27 Outpatient [facility] [id number] Common 09:15:00 09:15:00 t Specialty/U Sp arianna Specialty rology - CHI /Urology Clinic [facility] 2018-04-26 2018-04-26 Outpatient [facility] [id number] Common 13:36:00 13:36:00 t Specialty/U Sp arianna Specialty rology - /Urology Clinic [facility] 2018-04-21 2018-04-21 Outpatient [facility] [id number] Common 10:00:00 10:00:00 t Women Womens Care pirit Care [facility] 2017-08-24 2017-08-24 Outpatient [facility] [id number] Common 10:31:00 10:31:00 [address]rapies Spir it Drive [facility] 2017-07-22 2017-07-22 Outpatient [facility] [id number] Common 11:05:00 11:05:00 t Women's [facility] it Care Care Clinic - I [facility] 2017-05-26 2017-05-26 Outpatient [facility] [id number] Common 09:15:00 09:15:00 t Ipsat Therapies [facility] it Drive [facility] Results Test Description Test Time Test Comments Results Result Comments Source FREE T4 2022-01-28 22:17:34 Test Item Value Reference Range Interpretation Comme nts FREE T4 (test code = See_Comment [Autom ated message] The system [id number]) which generated this result transmitted ref erence range: 0.78 - 2.20 ng/dL:. The reference range was not u sed to interpret this result as normal/abnormal. Lab Interpretation (test code = Normal 87822-5) [facility] BranchLIPID PANEL (60682)(TOTAL CHOLESTEROL, TRIGLYCERIDES, HDL)2022-01-28 21:59:44 Test Item Value Reference Range Interpretation Comments CHOL (test code = 212 mg/dL 120-200 H 8859811476) HDL (test code = 37 mg/dL See_Comment L [Automated message] 8512791532) The system GMI generated this result transmit darshan reference range : >=50. The refer ence range was not u sed to interpret th is result as normal/abnormal . HDLC RATIO (test code = See_Comment H [Au tomated message] 9893883420) The system GMI generated this result transmit darshan reference range : <=4.5. The refe rence range was not u sed to interpret th is result as normal/abnormal . TRIG (test code = 174 mg/dL 30-170 H 1166375684) LDL CHOL (test code = 140 mg/dL See_Comment [Auto mated message] 48320-8) The system GMI generated this result transmit darshan reference range : <=160. The refe rence range was not u sed to interpret th is result as normal/abnormal . VLDL (test code = 35 mg/dL 5-60 5197080544) Lab Interpretation (test Abnormal code = 58078-4) [facility])(TOTAL CHOLESTEROL, TRIGLYCERIDES, HDL)2022-01-28 21:59:44 Test Item Value Reference Range Interpretation Comments CHOL (test code = 212 mg/dL 120-200 H 7559191109) HDL (test code = 37 mg/dL See_Comment L [Automated message] 5907897104) The system GMI generated this result transmit darshan reference range : >=50. The refer ence range was not u sed to interpret th is result as normal/abnormal . HDLC RATIO (test code = See_Comment H [Au tomated message] 1905336354) The system GMI generated this result transmit darshan reference range : <=4.5. The refe rence range was not u sed to interpret th is result as normal/abnormal . TRIG (test code = 174 mg/dL 30-170 H 6870124497) LDL CHOL (test code = 140 mg/dL See_Comment [Auto mated message] 01372-9) The system GMI generated this result transmit darshan reference range : <=160. The refe rence range was not u sed to interpret th is result as normal/abnormal . VLDL (test code = 35 mg/dL 5-60 0092509532) Lab Interpretation (test Abnormal code = 44974-7) [facility] (77251)(TOTAL CHOLESTEROL, TRIGLYCERIDES, HDL)2022-01-28 21:59:44 Test Item Value Reference Range Interpretation Comments CHOL (test code = 212 mg/dL 120-200 H 5786142065) HDL (test code = 37 mg/dL See_Comment L [Automated message] 5885855079) The system GMI generated this result transmit darshan reference range : >=50. The refer ence range was not u sed to interpret th is result as normal/abnormal . HDLC RATIO (test code = See_Comment H [Au tomated message] 5956028343) The system GMI generated this result transmit darshan reference range : <=4.5. The refe rence range was not u sed to interpret th is result as normal/abnormal . TRIG (test code = 174 mg/dL 30-170 H 2224969567) LDL CHOL (test code = 140 mg/dL See_Comment [Auto mated message] 31568-0) The system GMI generated this result transmit darshan reference range : <=160. The refe rence range was not u sed to interpret th is result as normal/abnormal . VLDL (test code = 35 mg/dL 5-60 2649042982) Lab Interpretation (test Abnormal code = 91986-5) [facility] WITH [id number] 20:29:44 Test Item Value Reference Range Interpretation Comments WBC (test code = See_Comment [Automated 7090-2) message] The sy stem which generated this result transmitted reference range : 4.30 - 11.10 10*3/?L. The reference range was not used to interpret this result as normal/abnormal . RBC (test code = See_Comment H [Automated 317-8) message] The sy stem which generated this result transmitted reference range : 3.93 - 5.25 10*6/?L. The reference range was not used to interpret this result as normal/abnormal . HGB (test code = 16.1 g/dL 11.6-15.0 H 718-7) HCT (test code = 45.8 % 35.7-45.2 H 4544-3) MCV (test code = 86.3 fL 80.6-95.5 787-2) MCH (test code = 30.3 pg 25.9-32.8 785-6) MCHC (test code = 35.2 g/dL 31.6-35.1 H 786-4) RDW-SD (test code = 37.2 fL 39.0-49.9 L 38138-0) RDW-CV (test code = 11.9 % 12.0-15.5 L 788-0) PLT (test code = See_Comment [Automated 777-3) message] The sy stem which generated this result transmitted reference range : 166 - 358 10*3/ ?L. The reference r robbie was not used to interpret this result as normal/abnormal . MPV (test code = 11.7 fL 9.5-12.9 00233-2) NRBC/100 WBC (test See_Comment [Automat ed code = 3018805768) message] The system which generated this result transmitted reference range : 0.0 - 10.0 /100 WBCs. The refer ence range was not u sed to interpret th is result as normal/abnormal . NRBC x10^3 (test code See_Comment [Auto mated = 0182555664) message] The s ystem which generated this result transmitted reference range : 10*3/?L. The reference range was not used to interpret this result as normal/abnormal . GRAN MAT (NEUT) % 65.1 % (test code = 770-8) IMM GRAN % (test code 0.10 % = 4253329745) LYMPH % (test code = 27.3 % 736-9) MONO % (test code = 5.6 % 5905-5) EOS % (test code = 1.2 % 713-8) BASO % (test code = 0.7 % 706-2) GRAN MAT x10^3(ANC) 5.57 10*3/uL 1.88-7.09 (test code = 5240652473) IMM GRAN x10^3 (test 0.00-0.06 code = 8836474998) LYMPH x10^3 (test code 2.34 10*3/uL 1.32-3.29 = 731-0) MONO x10^3 (test code 0.48 10*3/uL 0.33-0.92 = 742-7) EOS x10^3 (test code = 0.10 10*3/uL 0.03-0.39 711-2) BASO x10^3 (test code 0.06 10*3/uL 0.01-0.07 = 704-7) Lab Interpretation Abnormal (test code = 63598-7) [facility] WITH [id number] 20:29:44 Test Item Value Reference Range Interpretation Comments WBC (test code = See_Comment [Automated 6690-2) message] The sy stem which generated this result transmitted reference range : 4.30 - 11.10 10*3/?L. The reference range was not used to interpret this result as normal/abnormal . RBC (test code = See_Comment H [Automated 789-8) message] The sy stem which generated this result transmitted reference range : 3.93 - 5.25 10*6/?L. The reference range was not used to interpret this result as normal/abnormal . HGB (test code = 16.1 g/dL 11.6-15.0 H 718-7) HCT (test code = 45.8 % 35.7-45.2 H 4544-3) MCV (test code = 86.3 fL 80.6-95.5 787-2) MCH (test code = 30.3 pg 25.9-32.8 785-6) MCHC (test code = 35.2 g/dL 31.6-35.1 H 786-4) RDW-SD (test code = 37.2 fL 39.0-49.9 L 12715-4) RDW-CV (test code = 11.9 % 12.0-15.5 L 788-0) PLT (test code = See_Comment [Automated 777-3) message] The sy stem which generated this result transmitted reference range : 166 - 358 10*3/ ?L. The reference r robbie was not used to interpret this result as normal/abnormal . MPV (test code = 11.7 fL 9.5-12.9 23188-8) NRBC/100 WBC (test See_Comment [Automat ed code = 7151191874) message] The system which generated this result transmitted reference range : 0.0 - 10.0 /100 WBCs. The refer ence range was not u sed to interpret th is result as normal/abnormal . NRBC x10^3 (test code See_Comment [Auto mated = 6306455096) message] The s ystem which generated this result transmitted reference range : 10*3/?L. The reference range was not used to interpret this result as normal/abnormal . GRAN MAT (NEUT) % 65.1 % (test code = 770-8) IMM GRAN % (test code 0.10 % = 3835085274) LYMPH % (test code = 27.3 % 736-9) MONO % (test code = 5.6 % 5905-5) EOS % (test code = 1.2 % 713-8) BASO % (test code = 0.7 % 706-2) GRAN MAT x10^3(ANC) 5.57 10*3/uL 1.88-7.09 (test code = 7280637733) IMM GRAN x10^3 (test 0.00-0.06 code = 9635509331) LYMPH x10^3 (test code 2.34 10*3/uL 1.32-3.29 = 731-0) MONO x10^3 (test code 0.48 10*3/uL 0.33-0.92 = 742-7) EOS x10^3 (test code = 0.10 10*3/uL 0.03-0.39 711-2) BASO x10^3 (test code 0.06 10*3/uL 0.01-0.07 = 704-7) Lab Interpretation Abnormal (test code = 19689-0) [facility] WITH [id number] 20:29:44 Test Item Value Reference Range Interpretation Comments WBC (test code = See_Comment [Automated 8790-2) message] The sy stem which generated this result transmitted reference range : 4.30 - 11.10 10*3/?L. The reference range was not used to interpret this result as normal/abnormal . RBC (test code = See_Comment H [Automated 159-8) message] The sy stem which generated this result transmitted reference range : 3.93 - 5.25 10*6/?L. The reference range was not used to interpret this result as normal/abnormal . HGB (test code = 16.1 g/dL 11.6-15.0 H 718-7) HCT (test code = 45.8 % 35.7-45.2 H 4544-3) MCV (test code = 86.3 fL 80.6-95.5 787-2) MCH (test code = 30.3 pg 25.9-32.8 785-6) MCHC (test code = 35.2 g/dL 31.6-35.1 H 786-4) RDW-SD (test code = 37.2 fL 39.0-49.9 L 48002-3) RDW-CV (test code = 11.9 % 12.0-15.5 L 788-0) PLT (test code = See_Comment [Automated 777-3) message] The sy stem which generated this result transmitted reference range : 166 - 358 10*3/ ?L. The reference r robbie was not used to interpret this result as normal/abnormal . MPV (test code = 11.7 fL 9.5-12.9 74581-6) NRBC/100 WBC (test See_Comment [Automat ed code = 1841024462) message] The system which generated this result transmitted reference range : 0.0 - 10.0 /100 WBCs. The refer ence range was not u sed to interpret th is result as normal/abnormal . NRBC x10^3 (test code See_Comment [Auto mated = 5969266060) message] The s ystem which generated this result transmitted reference range : 10*3/?L. The reference range was not used to interpret this result as normal/abnormal . GRAN MAT (NEUT) % 65.1 % (test code = 770-8) IMM GRAN % (test code 0.10 % = 9757601491) LYMPH % (test code = 27.3 % 736-9) MONO % (test code = 5.6 % 5905-5) EOS % (test code = 1.2 % 713-8) BASO % (test code = 0.7 % 706-2) GRAN MAT x10^3(ANC) 5.57 10*3/uL 1.88-7.09 (test code = 2740496187) IMM GRAN x10^3 (test 0.00-0.06 code = 9868172567) LYMPH x10^3 (test code 2.34 10*3/uL 1.32-3.29 = 731-0) MONO x10^3 (test code 0.48 10*3/uL 0.33-0.92 = 742-7) EOS x10^3 (test code = 0.10 10*3/uL 0.03-0.39 711-2) BASO x10^3 (test code 0.06 10*3/uL 0.01-0.07 = 704-7) Lab Interpretation Abnormal (test code = 17503-1) [facility] SARS-COV-2 ANTIGEN (BINAX NOW)2021-10-10 16:37:00 Test Item Value Reference Range Interpretation Comments POCT SARS-COV-2 ANTIGEN (test Not Detected Not Detected code = 5076) On board controls acceptable Yes with C Line (test code = 3574) Lab Interpretation (test code = Normal 65279-7) [facility] HEMOGLOBIN A1C [id number] 21:17:00 Test Item Value Reference Range Interpretation Comments POCT HBA1C (test code = 4548-4) 10.4 % 4-6 A Lab Interpretation (test code = Abnormal 89617-8) [facility] HEMOGLOBIN A1C [id number] 21:17:00 Test Item Value Reference Range Interpretation Comments POCT HBA1C (test code = 4548-4) 10.4 % 4-6 A Lab Interpretation (test code = Abnormal 97057-7) [id number] Test Item Value Reference Range Interpretation Comments GLUBED (test code = GLUBED) 92 mg/dL 65-110 N [id number] 23:29:00 Test Item Value Reference Range Interpretation Comments GLUBED (test code = GLUBED) 98 mg/dL 65-110 N [id number] 06:39:00 Test Item Value Reference Range Interpretation Comments GLUBED (test code = GLUBED) 94 mg/dL 65-110 N [id number] 22:51:00 Test Item Value Reference Range Interpretation Comments GLUBED (test code = GLUBED) 112 mg/dL 65-110 H [id number] 19:02:00 Test Item Value Reference Range Interpretation Comments GLUBED (test code = GLUBED) 76 mg/dL 65-110 N [id number] 13:24:00 Test Item Value Reference Range Interpretation Comments GLUBED (test code = GLUBED) 80 mg/dL 65-110 N [id number] 07:43:00 Test Item Value Reference Range Interpretation Comments GLUBED (test code = GLUBED) 86 mg/dL 65-110 N [id number] 21:39:00 Test Item Value Reference Range Interpretation Comments GLUBED (test code = GLUBED) 111 mg/dL 65-110 H [id number] 18:57:00 Test Item Value Reference Range Interpretation Comments GLUBED (test code = GLUBED) 103 mg/dL 65-110 N CHEMISTRY 7 [id number] 13:47:00 Test Item Value Reference Range Interpretation [...] CA) 8.5 mg/dL 8.4-10.2 N CBC W/AUTO [id number] 13:29:00 Test Item Value Reference Range Interpretation [...] NORMAL NORMAL code = PLTMR) SOFT TISSUE,NOT DANNIE/MASS/[id number] 13:23:00 RUN DATE: 12/21/18 [facility] PAGE 1 RUN TIME: 1410 Specimen Inquiry RUN USER: INTERFACE -PATIENT: STACY THOMPSON LOC: [facility] #: [id number] AGE/SX: 28/F ROOM: [facility] RE12/15/18REG DR:Arpan Min MD : 86 BED: A DIS: STATUS: ADM IN TLOC: SPEC #: [id number] RECD: 12/20/18 STATUS: OLEGARIO RESusan #: [id number] ARELIS: 12/17/18- [facility] DR: Arpan Min MD ENTERED: 12/20/18 SP TYPE: SOFTNOTMLD OTHR DR: Jesús Lord MD, Jill C MD Nasser, Dean A MDORDERED: LEVEL IV CODES: T 1A000 - SOFT TISSUES, N COPIES TO: Jesús Lord MD [address] [facility] [address] [place] [address] Lianet Weir MD [address] [facility] [address] [place] [address] [email or web address] Kristofer Gó[place] [address] [place] [address] Arpan Min MD [address] [facility] [address] [place] [address] PROCEDURES: LEVEL IV (Incomplete) TISSUES: SOFT TISSUES, NOS - EPIPLOACA WITH ABSCESS/SIGMOID/UTERUS,CERVIX,TUBES AND OVARIES CLINICAL HISTORY 28 year old, tubo-ovarian abscess (kr) CONTINUED ON NEXT PAGE RUN DATE: 12/21/18 [facility] PAGE 2 RUN TIME: 1410 Specimen Inquiry RUN USER: INTERFACE SPEC #: [id number] PATIENT: STACY THOMPSON #[id number] (Continued) FINAL DIAGNOSIS Epiploica with abscess, excision: - fibroadipose tissue with acute, subacute and chronic inflammation with foreign body giant cell reaction Sigmoid, resection:- diverticular disease - acute and chronic serositis [...] adhesions, and ovarian serosal abscesses CPT code(s): 73131 x2, 66768 [facility] 12/21/18 GROSS DESCRIPTION ANATOMIC SOURCE OF TISSUE (per Requisition): 1. Epiploica with abscess 2. Sigmoid 3. Uterus, cervix, bilateralfallopian tubes and ovaries Each specimen is labeled [...] bowel with attached pericolonic adipose tissue. Also receivedin the same container are two unremarkable ring-shaped segments of bowel, 1.8 and 2.2 cm. The serosais pink-purple and hyperemic with multiple adhesions. The [...] Specimen Inquiry RUN USER: INTERFACE SPEC #: [id number] PATIENT: STACY THOMPSON #[id number] (Continued) GROSS DESCRIPTION (Continued) areas of induration, fibrosis and possible fat necrosis. Section code: B1 - donuts, B2 through B6 - business development representative sections of bowel with possible diverticular [...] x 6.0 cm). The uterine serosa is ariza- red, cauterized, and nodular, with multiple adhesions. The 3 cm ectocervix displays a central 1 cm slit-like os. The endometrium is dark red and hemorrhagic, with a thickness measuring up to 0.2 cm. The myometrium is trabeculated with a wall thickness measuring up to 2.2 cm. There are no nodules. The outer surfaces of the adnexa are pink-purple, hyperemic, and nodular with multipleadhesions. The larger ovary displays a 5.5 cm abscess, which involves the outer surface of the ovaryand fallopian tube. The remainder of the ovarian stroma is ariza, soft, slightly edematous, and nodular, with multiple clear, serous, and slightly viscous cysts, 0.3 to 2.5 cm. There are no identifiable e xcrescences. Section code: C1 - cervix, C2 - anterior endometrium, C3 - posterior endomyometrium, C4- serosal adhesions, C5 and C6 - business development representative sections of small adnexa, C7 through C9 - business development representative sections of large adnexa. diana 12/20/18 @ 1125 Signed Diana James MD 12/21/18 1323 END OF REPORT [id number] 13:17:00 Test Item Value Reference Range Interpretation Comments GLUBED (test code = GLUBED) 89 mg/dL 65-110 N - XR ABDOMEN [id number] 10:26:00 Patient Name: STACY THOMPSON Unit No: [id number] EXAMS: CPT CODE: [id number] XR ABDOMEN 2V 96856 ABDOMINAL RADIOGRAPHS- ERECT AND SUPINE COMPARISON: CT abdomen dated December 16, 2018 CLINICAL HISTORY: Intra-abdominal abscess No free intraperitoneal air is seen beneath the hemidiaphragms. Abdominal gas pattern is nonspecific with mild gaseous distention of bowel loops. There are a few air-fluid levels on the upright radiograph. No abnormal calcifications identified overlying the kidneys. Incidentalnote is made of mild groundglass opacities in the visualized portions of the lungs which may represent mild vascular congestion. IMPRESSION: Nonspecific bowel gas pattern. at 1026 Reported and signed by: Hamilton García MD CC: Lianet Weir Technologist: Gabriella Alvarado, RT Trnscrbd D/ (1026) AdeliaAJ13 Orig Print D/T: S: 12/21/2018 (1029) [facility] NAME: STACY THOMPSON Radiology Department PHYS: Arpan Wallace MD [address] : 1990 AGE: 28 SEX: F [place], [place] [address] LOC: F.2650 A PHONE #: [phone] EXAM DATE: 12/21/2018 STATUS: ADM IN FAX #: [phone] RAD NO: Page 1 Signed [id number] 06:40:00 Test Item Value Reference Range Interpretation Comments GLUBED (test code = GLUBED) 117 mg/dL 65-110 H [id number] 00:48:00 Test Item Value Reference Range Interpretation Comments GLUBED (test code = GLUBED) 153 mg/dL 65-110 H [id number] 18:32:00 Test Item Value Reference Range Interpretation Comments GLUBED (test code = GLUBED) 83 mg/dL 65-110 N [id number] 12:58:00 Test Item Value Reference Range Interpretation Comments GLUBED (test code = GLUBED) 153 mg/dL 65-110 H CHEMISTRY 7 [id number] 05:45:00 Test Item Value Reference Range Interpretation [...] CA) 8.1 mg/dL 8.4-10.2 L CBC W/AUTO [id number] 05:30:00 Test Item Value Reference Range Interpretation [...] REQUIRED (test NORMAL NORMAL code = PLTMR) [id number] 00:18:00 Test Item Value Reference Range Interpretation Comments GLUBED (test code = GLUBED) 107 mg/dL 65-110 N [id number] 18:27:00 Test Item Value Reference Range Interpretation Comments GLUBED (test code = GLUBED) 144 mg/dL 65-110 H [id number] 12:13:00 Test Item Value Reference Range Interpretation Comments GLUBED (test code = GLUBED) 126 mg/dL 65-110 H [id number] 08:47:00 Test Item Value Reference Range Interpretation Comments MAGNESIUM (test code = MAG) 1.8 mg/dL 1.8-2.4 N Comments to Social Sciences Chair: DO ON BLOOD IN LAB-- DRAWN THIS AMSpecimen Comment: BLOOD IN LAB.CHEMISTRY 7 [id number] 05:19:00 Test Item Value Reference Range Interpretation [...] CA) 7.5 mg/dL 8.4-10.2 L CBC W/AUTO [id number] 05:06:00 Test Item Value Reference Range Interpretation [...] REQUIRED (test NORMAL NORMAL code = PLTMR) [id number] 00:47:00 Test Item Value Reference Range Interpretation Comments GLUBED (test code = GLUBED) 159 mg/dL 65-110 H [id number] 21:14:00 Test Item Value Reference Range Interpretation Comments C-PEPTIDE (test code 2.9 ng/mL 1.1-4.4 C-Pepti de reference = CPEP) interval is for fasting patients.Perfor med At: HD [facility] [address] [place], [place] [address] kelechi Rosa MD Ph:[phone] [id number] 21:14:00 Test Item Value Reference Range Interpretation Comments INSULIN (test code = 22.1 uIU/mL 2.6-24.9 Perform ed At: HD INS) [facility] [place] [address] [place], [place] [address] kelechi Rosa MD Ph:[phone] [id number] 18:25:00 Test Item Value Reference Range Interpretation Comments GLUBED (test code = GLUBED) 134 mg/dL 65-110 H [id number] 12:38:00 Test Item Value Reference Range Interpretation Comments GLUBED (test code = GLUBED) 137 mg/dL 65-110 H COMPREHENSIVE METABOLIC [id number] 05:57:00 Test Item Value Reference Range Interpretation [...] 69 units/L 46-116 N code = ALKP) [id number] 05:57:00 Test Item Value Reference Range Interpretation Comments MAGNESIUM (test code = 1.0 mg/dL 1.8-2.4 L RESUL TS CALLED TO MAG) ZAC MENDOZA.KUSHAL D BACK & CONFIRMED? Y. BY F.LAB.LDT 12/18 0557. RESULTS VERIFIED BY REP EAT ANALYSIS CBC W/AUTO [id number] 05:13:00 Test Item Value Reference Range Interpretation [...] NORMAL NORMAL REQUIRED (test code = PLTMR) [id number] 00:21:00 Test Item Value Reference Range Interpretation Comments GLUBED (test code = GLUBED) 280 mg/dL 65-110 H CHEMISTRY 7 [id number] 23:10:00 Test Item Value Reference Range Interpretation [...] CA) 7.1 mg/dL 8.4-10.2 L CBC W/AUTO [id number] 18:05:00 Test Item Value Reference Range Interpretation [...] NORMAL REQUIRED (test code = PLTMR) WBC [id number] 18:05:00 Test Item Value Reference Range Interpretation [...] code = NORMAL NORMAL PLTMORPH) CHEMISTRY 7 [id number] 17:48:00 Test Item Value Reference Range Interpretation [...] CA) 7.5 mg/dL 8.4-10.2 L CBC W/AUTO [id number] 17:32:00 Test Item Value Reference Range Interpretation [...] NORMAL REQUIRED (test code = PLTMR) WBC [id number] 17:32:00 Test Item Value Reference Range Interpretation Comments SEGMENTED NEUTROPHILS (test code = SEG) % 56.5-79.4 LYMPHOCYTE (test code = LYMPH) % 20-40 CBC W/AUTO [id number] 17:32:00 Test Item Value Reference Range Interpretation Comments WHITE BLOOD CELL 28.6 K/mm3 6.6-12.1 HH RESULTS GILBERT IFIED BY (test code = WBC) REPEAT KEIRA LYSISRESULTS CALLED TO KARINA VILLALTA .READ BACK & CO NFIRMED? Y.BY F.LAB.RV 02/16/18 5160. RED BLOOD CELL (test 5.23 M/mm3 3.45-5.01 [...] NORMAL REQUIRED (test code = PLTMR) WBC [id number] 17:32:00 Test Item Value Reference Range Interpretation Comments SEGMENTED NEUTROPHILS (test code = SEG) % 56.5-79.4 LYMPHOCYTE (test code = LYMPH) % 20-40 [id number] 14:59:00 Test Item Value Reference Range Interpretation Comments GLUBED (test code = GLUBED) 288 mg/dL 65-110 H [id number] 06:04:00 Test Item Value Reference Range Interpretation Comments GLUBED (test code = GLUBED) 201 mg/dL 65-110 H URINALYSIS [id number] 03:54:00 Test Item Value Reference Range Interpretation [...] SAMPLE: CLEAN CATCHComment URINE WITH CULTUREUR HCG [id number] 03:54:00 Test Item Value Reference Range Interpretation [...] URINE SAMPLE: CLEAN CATCHComment URINE WITH CULTUREURINALYSIS [id number] 03:38:00 Test Item Value Reference Range Interpretation [...] SAMPLE: CLEAN CATCHComment URINE WITH CULTUREUR HCG [id number] 03:38:00 Test Item Value Reference Range Interpretation [...] tested. URINE SAMPLE: CLEAN CATCHComment URINE WITH [id number] 22:09:00 Test Item Value Reference Range Interpretation Comments GLUBED (test code = 263 mg/dL 65-110 H Phsician Notified GLUBED) [id number] 17:08:00 Test Item Value Reference Range Interpretation Comments GLUBED (test code = GLUBED) 286 mg/dL 65-110 H [id number] 15:28:00 Test Item Value Reference Range Interpretation Comments CREATININE (test code = CREAT) 0.9 mg/dL 0.5-1.0 N IS THIS A ONCE DAILY SINGLE DOSE? YESDATE OF LAST DOSE: 12/16/18TIME OF LAST DOSE: [id number] 15:28:00 Test Item Value Reference Range Interpretation Comments GENTAMICIN (test code 0.8 mcg/mL 0-14 N Adult normal range = GENT) for once daily dose of Gentamicin m ay beup to 24 mcg/ mL. Gentamicin resu lts must be correla darshan withthe time th e dose was administere d. IS THIS A ONCE DAILY SINGLE DOSE? YESDATE OF LAST DOSE: 12/16/18TIME OF LAST DOSE: [id number] 13:24:00 Test Item Value Reference Range Interpretation Comments GLUBED (test code = GLUBED) 274 mg/dL 65-110 H HCG [id number] 12:13:00 Test Item Value Reference Range Interpretation Comments HCG SERUM (test <1 INTERPRETATI ON:VALUES BETWEEN code = HCG) 15-20 milliInte rnational units/mL NEED T O BERETESTED WITHIN 48 HOURS . All units for these ranges ar e in milliInternatio nalunits/mL0-1 WK AFTER CONCEP TION 0-50 1-2 WKS AFTER AMARIS PTION 40-3002-3 WKS AFTER AMARIS PTION 100-1,0003-4 WK S AFTER CONCEPTION 500- 6,0001-2 MONTHS AFTER CONCEPTIO N 5,000-200,0002- 3 MONTHS AFTER CONCEPTION 10,0 00-100,0002ND TRIMESTER 3,000 -50,0003RD TRIMESTER 1,000 -50,000 SPECIMENS WITH AN HCG LEVEL FROM 0-6 milliInternatio nalunits/mL SHOULD BE CONSI DERED NEGATIVE PT.IS NOT IN THE ROOM AT THIS TIME. PHLEB/RBCHEMISTRY 7 [id number] 12:11:00 Test Item Value Reference Range Interpretation [...] IN THE ROOM AT THIS TIME. @ 21901BC TRY 1018 AM. PHLEB/RBCBC W/AUTO [id number] 11:40:00 Test Item Value Reference Range Interpretation [...] PLTMR) COME BACK LATER- CT ABD PELVIS [id number] 11:01:00 Patient Name: STACY THOMPSON Unit No: [id number] EXAMS: CPT CODE: [id number] CT ABD PELVIS [id number] Exam: CT scan of the abdomen and pelvis. Exam date: December 16, 2018. Comparison: No images are available. These have been requested from outside facility. A limited report is available. Clinicalhistory: TUBO-OVARIAN ABSCESS. One or more of the following dose techniques were utilized; automated exposure control, adjustment of the mA and/or kV according to patient size, and/or utilization of iterative reconstruction technique. DLP: 1880.60 mGy-cm. Sequential scanning of the abdomen and pelvis was performed [...] kidneys, ureters where visualized and bladder are unremarkable.The great vessels are unremarkable. The bowel is [...] bowel to both of these findings. On delayed imaging no oral contrast has entered these masses. No significant free fluid is identified. Infrarenal periaortic adenopathy is identified as well as pelvic lymphadenopathy. The largest node is on the left infrarenal region measuring 1.8 cm in transverse diameter. Visualized osseous structures are unremarkable. Anterior wall demonstrates no significant abnormalities. IMPRESSION: [facility] NAME: DONNASTACY Radiology Department PHYS: Arpan Wallace MD [address] : 1990 AGE: 28 SEX: F [place], [place] [address] LOC: F.4672 A PHONE #: [phone] EXAM DATE: 12/16/2018 STATUS: ADM IN FAX #: [phone] RAD NO: Page 1 Signed Report 1 Patient Name: STACY THOMPSON Unit No: [id number] EXAMS: CPT CODE:[id number] CT ABD PELVIS W/CONT 62299 (Continued) Bilateral adnexal masses as described above. The [...] DLP: 1880.60 Trnscrbd D/ (1101) [facility] NAME: STACY THOMPSON Radiology Department PHYS: Arpan Wallace MD [address] : 1990 AGE: 28 SEX: F [place], [place] [address] LOC: F.4672 A PHONE #: [phone] EXAMDATE: 12/16/2018 STATUS: ADM IN FAX #: [phone] RAD NO: Page 2 Signed Report 1 Patient Name: STACY BERGER Unit No: [id number] EXAMS: CPT CODE: [id number] CT ABD PELVIS W/CONT 76886 (Continued)Orig Print D/T: S: 12/16/2018 (1104) [facility] NAME: STACY THOMPSON RadiologyDepartment PHYS: Arpan Wallace MD [address] : 1990 AGE: 28 SEX: [place] LOC: Senia4672 Eleanor PHONE #: [phone] EXAM DATE: 12/16/2018 STATUS: ADM INFAX #: [phone] RAD NO: Page 3 Signed Report [id number] 07:07:00 Test Item Value Reference Range Interpretation Comments GLUBED (test code = GLUBED) 241 mg/dL 65-110 H CREATINE KINASE (CK)2018-12-15 19:52:00 Test Item Value Reference Range Interpretation Comments CREATINE KINASE (CK) (test code = 60 Units/L 26-192 N CK) [id number] 16:55:00 Test Item Value Reference Range Interpretation Comments GLUBED (test code = 339 mg/dL 65-110 H Phsician Notified GLUBED) COMPREHENSIVE METABOLIC [id number] 11:01:00 Test Item Value Reference Range Interpretation [...] units/L 46-116 N code = ALKP) T4 [id number] 11:01:00 Test Item Value Reference Range Interpretation Comments T4 FREE (test code = T4F) 1.24 ng/dL 0.76-1.46 N THYROID STIMULATING [id number] 11:01:00 Test Item Value Reference Range Interpretation [...] be considered for these patients. GLYCOSYLATED HEMOGLOBIN [id number] 11:01:00 Test Item Value Reference Range Interpretation Comments GLYCOSYLATED 9.2 % 4.8-5.9 H Any condition t hat HEMOGLOBIN (HA1C) shortens e rythocyte (test code = survival or dec reasesmean GLYHGB) erythrocyte age (e.g., recovery from a cute blood loss,hemolytic anemia) will falsely lo wer HGBA1c resultsregardle ss of the method used. HG BA1c results from madiha rose HbSS, HbCC, and [...] MG/DL 70-110 H (test code = MBG) [id number] 10:19:00 Test Item Value Reference Range Interpretation Comments GLUBED (test code = 290 mg/dL 65-110 H Phsician Notified GLUBED) COMPREHENSIVE METABOLIC [id number] 07:23:00 Test Item Value Reference Range Interpretation [...] units/L 46-116 N code = ALKP) T4 [id number] 07:23:00 Test Item Value Reference Range Interpretation Comments T4 FREE (test code = T4F) 1.24 ng/dL 0.76-1.46 N THYROID STIMULATING [id number] 07:23:00 Test Item Value Reference Range Interpretation Comments THYROID STIMULATING 3.27 0.36-3.74 N Test Per formed in HORMONE (test code = MicroIn ternational Units/mL TSH) GLYCOSYLATED HEMOGLOBIN (HA1C)2018-12-15 07:23:00 Test Item Value Reference Range Interpretation Comments GLYCOSYLATED HEMOGLOBIN (HA1C) (test code = GLYHGB) [id number] 06:04:00 Test Item Value Reference Range Interpretation Comments GLUBED (test code = 308 mg/dL 65-110 H Phsician Notified GLUBED) COMPREHENSIVE METABOLIC [id number] 05:10:00 Test Item Value Reference Range Interpretation [...] 46-116 N code = ALKP) THYROID STIMULATING [id number] 05:10:00 Test Item Value Reference Range Interpretation Comments THYROID STIMULATING 3.27 0.36-3.74 N Test Per formed in HORMONE (test code = MicroIn ternational Units/mL TSH) GLYCOSYLATED HEMOGLOBIN (HA1C)2018-12-15 05:10:00 Test Item Value Reference Range Interpretation Comments GLYCOSYLATED HEMOGLOBIN (HA1C) (test code = GLYHGB) LACTIC [id number] 04:53:00 Test Item Value Reference Range Interpretation Comments LACTIC ACID (test code = LACT) 1.5 MMOL/L 0.5-2.2 N CBC W/AUTO [id number] 04:30:00 Test Item Value Reference Range Interpretation [...] code = PLTMR) - CT HEAD/BRAIN W/O [id number] 04:27:00 Patient Name: STACY THOMPSON Unit No: [id number] EXAMS: CPT CODE: [id number] CT HEAD/BRAIN W/O CONT 86557 EXAM: CT, CT HEAD/BRAIN W/O CONTRAST; 12/15/2018, 0402 hours HISTORY: HEADACHE COMPARISON: None available. TECHNIQUE: CT images were obtained from the foramen magnum to the vertex without the use of intravenous contrast on a multidetector CT. CT imaging was performed with exposure control parameters to reduce radiation dose. Coronal and sagittal reconstructions were obtained. CT radiation doseDLP: 879.86 mGy-cm FINDINGS: BRAIN PARENCHYMA: The brain parenchyma is normal with normal arevalo and white interfaces. The periventricular white matter appears unremarkable. No focal mass lesions on thisnoncontrast head CT. No mass effect, midline shift or edema. There are no intra-axial or extra-axialfluid collections, intraventricular or intraparenchymal hemorrhage. No low attenuation demarcating areas on this non-contrast CT to suggest subacute stroke. VENTRICLES: The lateral ventricles, third and fourth ventricles appear unremarkable. The basilar cisterns are normal. ORBITS, MASTOIDS AND PARANASAL SINUSES: The visualized orbits are unremarkable. The visualized paranasal sinuses are unremarkable. The mastoid air cells are clear. SKULL: There are no osseous abnormalities. If there is further concern for intracranial pathology or acute stroke, MRI of the brain may be performed for complete assessment. IMPRESSION: 1. No acute intracranial abnormality. No noncontrast CT evidence of mass, acute hemorrhage or subacute stroke. SL: [id number] NAME: STACY THOMPSON Radiology Department PHYS: Lianet Morrow MD [address] : 1990 AGE: 28 SEX: F [place], [place] [address] LOC: F.4672 A PHONE #: [phone] EXAM DATE: 12/15/2018 STATUS: ADMIN FAX #: [phone] RAD NO: Page 1 Signed Report 1 Patient Name: STACY THOMPSON Unit No: [id number] EXAMS: CPT CODE: [id number] CT HEAD/BRAIN W/O CONT 54378 (Continued) at 0427 Reported and signed by: Paul Barreto M.D. CC: Lianet Weir Technologist: SELAM HOLLIDAY CT, RT CTDI: 53.12 DLP: 879.86 Trnscrbd D/ (0427) [id number] [facility] NAME: STACY THOMPSON Radiology Department PHYS: Lianet Morrow MD [address] : 1990 AGE: 28 SEX: F [place] [address] LOC: F.4672 A PHONE #: [phone] EXAM DATE: 12/15/2018 STATUS: ADM IN FAX #: [phone] RAD NO: Page 2 Signed Report 1 Patient Name: STACY THOMPSON Unit No: [id number] EXAMS: CPT CODE: [id number] CTHEAD/BRAIN W/O CONT 12199 (Continued) Orig Print D/T: S: 12/15/2018 (043) [facility] NAME: DONNA,STACY Radiology Department PHYS: Lianet Morrow MD [address] : 1990 AGE: 28 SEX: F [place] [address] LOC: F.4672 A PHONE #: [phone] DATE: 12/15/2018 STATUS: ADM IN FAX #: [phone] RAD NO: Page 3 Signed Report 1Aerobic Bacterial Culture Test Item Value Reference Range Interpretation Comments Aerobic Bacterial Culture (test Final report code = 634-6) SARS-COV 2 AntigenSARS-COV 2 Antigen
[2022-02-05] MEDS ORDERED: ACETAMINOPHEN 500 MG TAB ONE (20:44)
[2022-02-05 22:13] LABS: Urine Blood Negative (Negative); Urine Glucose Negative (Negative); Urine Protein 1+ (Negative); Urine Specific Gravity 1.025 (1.005-1.030); Urine pH 5.5 (5.0-7.0)
[2022-02-05 22:25] LABS: Absolute Lymphocytes (CBC) 1.1 K/uL (0.7-4.9); Hematocrit 42.9 % (36.0-45.0); Lymphocytes % 12.7 % (15.3-44.8); MCV 84.6 fL (80-100); MPV 9.6 fL (7.6-11.3); RBC Red Blood Cell Count 5.07 M/uL (3.86-4.86)
[2022-02-05 22:30] LABS: Albumin 3.6 g/dL (3.4-5.0); Bilirubin Total 1.2 mg/dL (0.2-1.0); Potassium 3.4 mmol/L (3.5-5.1); Protein, Total 7.7 g/dL (6.4-8.2)
[2022-02-05 22:39] LABS: Urine Bacteria <20 /HPF (<20); Urine Mucus 3+ /HPF (None Seen); Urine RBC None Seen /HPF (None Seen)
--- NOTE | 2022-02-05 23:21 | EDPHYS ---
Physician Documentation [facility] Name: Stacy Islas Age: 31 yrs Sex: Female : 1990 Arrival Date: 02/05/2022 Time: 18:56 Bed 10 Private MD: ED Physician Sonia Kendall HPI: 02/05 22:48 This 31 yrs old Female presents to ER via Ambulatory with complaints of sp3 Diarrhea and abdominal cramping. 22:48 31-year-old female with history of diabetes and anxiety presents with chief complaint 2 sp3 days of diarrhea without emesis and mild cramping of the abdomen. Patient also complains of mild headache which she states she often gets. He has no other symptoms including chest pain, back pain, decreased urine output, vomiting, rash, fever, URI symptoms, known sick contacts, travel history, known bad food, or any other symptoms or aspects of ROS at this time.. 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 - Social history:: Smoking status: Patient denies any tobacco usage or history of. ROS: 22:55 Constitutional: Negative for fever, chills, and weight loss, Eyes: Negative for injury, sp3 pain, redness, and discharge, ENT: Negative for injury, pain, and discharge, Neck: Negative for injury, pain, and swelling, Cardiovascular: Negative for chest pain, palpitations, and edema, Respiratory: Negative for shortness of breath, cough, wheezing, and pleuritic chest pain, Back: Negative for injury and pain, : Negative for injury, bleeding, discharge, and swelling, MS/Extremity: Negative for injury and deformity, Skin: Negative for injury, rash, and discoloration, Psych: Negative for depression, anxiety, suicide ideation, homicidal ideation, and hallucinations, Allergy/Immunology: Negative for hives, rash, and allergies, Endocrine: Negative for neck swelling, polydipsia, polyuria, polyphagia, and marked weight changes, Hematologic/Lymphatic: Negative for swollen nodes, abnormal bleeding, and unusual bruising. 22:55 All other systems are negative. Exam: 22:55 Constitutional: This is a well developed, well nourished patient who is awake, alert, sp3 and in no acute distress. Head/Face: Normocephalic, atraumatic. Eyes: Pupils equal round and reactive to light, extra-ocular motions intact. Lids and lashes normal. Conjunctiva and sclera are non-icteric and not injected. Cornea within normal limits. Periorbital areas with no swelling, redness, or edema. ENT: Nares patent. No nasal discharge, no septal abnormalities noted. External auditory canals are clear. Oropharynx with no redness, swelling, or masses, exudates, or evidence of obstruction, uvula midline. Mucous membranes moist. Neck: Trachea midline, no thyromegaly or masses palpated, and no cervical lymphadenopathy. Supple, full range of motion without nuchal rigidity, or vertebral point tenderness. No Meningismus. Chest/axilla: Normal chest wall appearance and motion. Nontender with no deformity. No lesions are appreciated. Cardiovascular: Regular rate and rhythm with a normal S1 and S2. No gallops, murmurs, or rubs. Normal PMI, no JVD. No pulse deficits. Respiratory: Lungs have equal breath sounds bilaterally, clear to auscultation and percussion. No rales, rhonchi or wheezes noted. No increased work of breathing, no retractions or nasal flaring. Back: No spinal tenderness. No costovertebral tenderness. Full range of motion. Skin: Warm, dry with normal turgor. Normal color with no rashes, no lesions, and no evidence of cellulitis. MS/ Extremity: Pulses equal, no cyanosis. Neurovascular intact. Full, normal range of motion. Neuro: Awake and alert, GCS 15, oriented to person, place, time, and situation. Cranial nerves II-XII grossly intact. Motor strength 5/5 in all extremities. Sensory grossly intact. Cerebellar exam normal. Normal gait. Psych: Awake, alert, with orientation to person, place and time. Behavior, mood, and affect are within normal limits. 22:55 Abdomen/GI: Diffuse cramping without peritoneal signs. Negative Rizo sign. Patient has had a hysterectomy as her only past surgical history.. Vital Signs: 20:36 BP 105 / 84; Pulse 87; Resp 18 S; Temp 98.8(O); Pulse Ox 98% on R/A; Weight 102.06 kg bb (R); Height 5 ft. 3 in. (160.02 cm) (R); Pain 9/10; 21:47 BP 103 / 55; Pulse 92; Resp 18; Pulse Ox 98% on R/A; tw5 23:33 BP 102 / 69; Pulse 87; Pulse Ox 100% on R/A; tw5 20:36 Body Mass Index 39.86 (102.06 kg, 160.02 cm) bb MDM: 21:41 Patient medically screened. sp3 22:56 Data reviewed: vital signs, nurses notes, lab test result(s). ED course: 31-year-old sp3 female with history of diabetes now with mild abdominal cramping and diarrhea. Differential diagnosis includes viral syndrome versus gastroenteritis versus enteritis versus bacterial etiology diarrhea. Will include p.o. challenge and laboratory diagnostic values. Clinically have ruled out appendicitis, cholecystitis, sepsis, shock, peritonitis, or any other critical findings at this time. Likely discharge patient home on p.o. antibiotics to start in 48 hours if not automatically improved with supportive care.. 23:19 ED course: Patient with mild ketones in her urine and 3.4 potassium. Will give 500 mL sp3 of normal saline and p.o. potassium and discharged on supportive care with instructions for p.o. antibiotics if symptoms or not resolved within 48 hours.. 02/05 20:49 Order name: CBC with Diff; Complete Time: 23:19 sp3 02/05 20:49 Order name: CMP; Complete Time: 23:19 sp3 02/05 20:49 Order name: Lipase; Complete Time: 23:19 sp3 02/05 20:49 Order name: Urine Microscopic Only; Complete Time: 23:19 sp3 02/05 22:14 Order name: Urine Dipstick-Ancillary; Complete Time: 23:19 EDMS 02/05 23:19 Order name: Urine --Ancillary (enter results) wm 02/05 20:49 Order name: IV Saline Lock; Complete Time: 21:56 sp3 02/05 20:49 Order name: Labs collected and sent; Complete Time: 21:56 sp3 02/05 20:49 Order name: Urine Dipstick-Ancillary (obtain specimen); Complete Time: 21:56 sp3 Administered Medications: 20:40 Drug: Tylenol 1000 mg Route: PO; bb 23:52 Follow up: Response: No adverse reaction tw5 23:31 Drug: NS 0.9% 500 ml Route: IV; Rate: bolus; Site: right antecubital; tw5 23:52 Follow up: Response: No adverse reaction; IV Status: Completed infusion; IV Intake: tw5 500ml 23:31 Drug: Potassium Chloride 40 mEq Route: PO; tw5 23:52 Follow up: Response: No adverse reaction tw5 Disposition Summary: 02/05/22 23:20 Discharge Ordered Location: Home sp3 Condition: Stable sp3 Diagnosis - Diarrhea, unspecified sp3 - Dehydration sp3 Followup: sp3 - With: Private Physician - When: Upon discharge from the Emergency Department - Reason: Continuance of care Discharge Instructions: - Discharge Summary Sheet sp3 - Diarrhea, Adult sp3 Forms: - Medication Reconciliation Form sp3 - Work release form bb - Thank You Letter sp3 - Antibiotic Education sp3 - Prescription Opioid Use sp3 Prescriptions: - Cipro 500 mg Oral Tablet - take 1 tablet by ORAL route every 12 hours for 10 days; 20 tablet; Refills: 0, sp3 Product Selection Permitted - Flagyl 500 mg Oral Tablet - take 1 tablet by ORAL route every 12 hours for 7 days; 14 tablet; Refills: 0, sp3 Product Selection Permitted Signatures: Dispatcher [employer] Jennifer Hyman, RN RN bb Sonia Kendall MD MD sp3 Yuridia Penaloza tw5
--- NOTE | 2022-02-05 23:21 | ER ---
Nurse's Notes [facility] Name: Stacy Islas Age: 31 yrs Sex: Female : 1990 Arrival Date: 02/05/2022 Time: 18:56 Bed 10 Private MD: Diagnosis: Diarrhea, unspecified;Dehydration Presentation: 02/05 20:36 Chief complaint: Patient states: she has had abdominal pain with diarrhea for several bb days and now has a really bad headache which started today. Coronavirus screen: At this time, the client does not indicate any symptoms associated with coronavirus-19. Ebola Screen: No symptoms or risks identified at this time. Initial Sepsis Screen: Does the patient meet any 2 criteria? No. Patient's initial sepsis screen is negative. Does the patient have a suspected source of infection? No. Patient's initial sepsis screen is negative. Risk Assessment: Do you want to hurt yourself or someone else? Patient reports no desire to harm self or others. Onset of symptoms was February 02, 2022. 20:36 Method Of Arrival: Ambulatory bb 20:36 Acuity: VENTURA 3 bb Triage Assessment: 20:37 General: Appears in no apparent distress. uncomfortable, Behavior is calm, cooperative. bb Pain: Complains of pain in head. Neuro: Level of Consciousness is awake, alert, obeys commands, Oriented to person, place, time, situation. Cardiovascular: Capillary refill < 3 seconds Patient's skin is warm and dry. Respiratory: Respiratory effort is even, unlabored. GI: Abdomen is obese, Reports lower abdominal pain, diarrhea. Derm: Skin is pink, warm \\T\\ dry. Musculoskeletal: Circulation, motion, and sensation intact. 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 - Social history:: Smoking status: Patient denies any tobacco usage or history of. Screenin:47 [facility] ED Fall Risk Assessment (Adult) History of falling in the last 3 months, tw5 including since admission. Abuse screen: Denies threats or abuse. Denies injuries from another. Nutritional screening: No deficits noted. Tuberculosis screening: No symptoms or risk factors identified. Assessment: 21:47 General: "For the past four days I have been having stomach pains and diarrhea. My head tw5 also really hurts. Everytime I eat it hurts. I do have a hernia so I dont know if that is causing the pain as well.". Pain: Complains of pain in abdomen Pain currently is 8 out of 10 on a pain scale. Cardiovascular: No deficits noted. Respiratory: No deficits noted. GI: Abdomen is obese, Bowel sounds present X 4 quads. Abd is soft X 4 quads Abdomen is tender to palpation X 4 quads. Derm: Skin is intact, is healthy with good turgor. 23:32 Reassessment: Patient appears in no apparent distress at this time. tw5 Vital Signs: 20:36 BP 105 / 84; Pulse 87; Resp 18 S; Temp 98.8(O); Pulse Ox 98% on R/A; Weight 102.06 kg bb (R); Height 5 ft. 3 in. (160.02 cm) (R); Pain 9/10; 21:47 BP 103 / 55; Pulse 92; Resp 18; Pulse Ox 98% on R/A; tw5 23:33 BP 102 / 69; Pulse 87; Pulse Ox 100% on R/A; tw5 20:36 Body Mass Index 39.86 (102.06 kg, 160.02 cm) bb ED Course: 18:56 Patient arrived in ED. as 19:23 Sonia Kendall MD is Attending Physician. sp3 20:37 Triage completed. bb 20:37 Arm band placed on Patient placed in waiting room, Patient notified of wait time. bb 21:43 Yuridia Penaloza is Primary Nurse. tw5 21:47 Awaiting lab results. tw5 21:47 Patient has correct armband on for positive identification. Placed in gown. Bed in low tw5 position. Call light in reach. Pulse ox on. NIBP on. Door closed. Noise minimized. Lights dimmed. Warm blanket given. Verbal reassurance given. 21:47 Initial lab(s) drawn, by me, sent to lab. Inserted saline lock: 20 gauge in right tw5 antecubital area, using aseptic technique. Blood collected. 21:56 CBC with Diff Sent. tw5 21:56 CMP Sent. tw 21:56 Lipase Sent. 21:56 Urine Microscopic Only Sent. tw5 23:52 No provider procedures requiring assistance completed. IV discontinued, intact, tw5 bleeding controlled, No redness/swelling at site. Pressure dressing applied. Administered Medications: 20:40 Drug: Tylenol 1000 mg Route: PO; bb 23:52 Follow up: Response: No adverse reaction 23:31 Drug: NS 0.9% 500 ml Route: IV; Rate: bolus; Site: right antecubital; 23:52 Follow up: Response: No adverse reaction; IV Status: Completed infusion; IV Intake: tw5 500ml 23:31 Drug: Potassium Chloride 40 mEq Route: PO; 23:52 Follow up: Response: No adverse reaction tw Medication: 21:47 VIS not applicable for this client. tw5 Intake: 23:52 IV: 500ml; Total: 500ml. 5 Outcome: 23:20 Discharge ordered by . sp3 23:52 Discharged to home ambulatory. tw 23:52 Condition: good 23:52 Discharge instructions given to patient, Instructed on discharge instructions, follow up and referral plans. Demonstrated understanding of instructions, follow-up care, medications, Prescriptions given X 2. 23:53 Instructed on medication usage. 23:54 Patient left the ED. 5 Signatures: Nayla Ryan Brenda, RN RN bb Sonia Kendall MD MD sp3 Yuridia Penaloza tw5
[2022-02-05 23:28] LABS: Urine Specific Gravity/Preg 1.025 (1.005-1.030)
[2022-02-05] MEDS ORDERED: POTASSIUM CL SA 10 MEQ TAB PO ONE (23:30)
[2022-02-05] MEDS ORDERED: NA CHLORIDE 0.9% 500 ML ONE (23:31)
[2022-02-06 00:30] VITALS: TEMP 98.8
[2022-02-06 00:32] VITALS: BP 102/69; O2SAT 100
== END 2022-02-05 23:54 | disposition home or self-care (01) ==
LOC: ER 18:54
DX: E86.0 Dehydration (principal); E11.9 Type 2 diabetes mellitus without complications; F41.9 Anxiety disorder, unspecified; Z88.8 Allergy status to other drugs, medicaments and biological substances
CPT/HCPCS: 85025; 36415; 81025; 83690; 80053; J7040; 81003; 81015

== ENCOUNTER 2022-07-27 15:38 | Emergency (ER) | payer OTHER ==
--- NOTE | 2022-07-27 15:45 | EDPHYS ---
Physician Documentation [facility] Name: Stacy Islas Age: 31 yrs Sex: Female : 1990 Arrival Date: 07/27/2022 Time: 15:38 Bed IW1 Private MD: ED Physician Sonia Kendall HPI: 07/27 16:24 This 31 yrs old Female presents to ER via Ambulatory with complaints of Arm kb Pain. 16:24 The patient or guardian complains of pain, that is acute. The complaints affect the kb dorsal aspect of right forearm. Context: The problem was sustained at work, resulted from unknown cause. Onset: The symptoms/episode began/occurred this morning. Treatment prior to arrival includes: no previous treatment. Modifying factors: The symptoms are alleviated by nothing. the symptoms are aggravated by movement. Associated signs and symptoms: Pertinent positives: pain. Severity of symptoms: At their worst the symptoms were mild, in the emergency department the symptoms are unchanged. The patient has not experienced similar symptoms in the past. The patient has not recently seen a physician. 16:24 Pt reports she believes she pulled a muscle in her forearm when at work. Reports pain kb to muscle only. Full ROM . 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 - Social history:: Smoking status: Patient denies any tobacco usage or history of. ROS: 16:24 Constitutional: Negative for fever, chills, and weight loss. kb 16:24 MS/extremity: Positive for pain, of the dorsal aspect of right forearm. 16:24 All other systems are negative. Exam: 16:24 Constitutional: This is a well developed, well nourished patient who is awake, alert, kb and in no acute distress. Head/Face: Normocephalic, atraumatic. ENT: Moist Mucous membranes Cardiovascular: Regular rate and rhythm with a normal S1 and S2. No gallops, murmurs, or rubs. No pulse deficits. Respiratory: Respirations even and unlabored. No increased work of breathing. Talking in full sentences Abdomen/GI: Soft, non-tender. No distention Skin: Warm, dry with normal turgor. Normal color. MS/ Extremity: Pulses equal, no cyanosis. Neurovascular intact. Full, normal range of motion. Neuro: Awake and alert, GCS 15, oriented to person, place, time, and situation. Moves all extremities. Normal gait. Vital Signs: 15:43 Pulse 86; Resp 16; Temp 97.9(O); Pulse Ox 100% ; Weight 108.86 kg; Height 5 ft. 3 in. ; vg1 Pain 8/10; 15:43 Body Mass Index 42.51 (108.86 kg, 160.02 cm) vg1 15:43 Pain Scale: Adult vg1 MDM: 15:42 Patient medically screened. kb 16:33 Differential diagnosis: dislocation, closed fracture, tendonitis, strain. Data kb reviewed: vital signs, nurses notes. Test considered but Not performed: X-ray: forearm x-ray considered, but pt has full rom and no bony tenderness. Counseling: I had a detailed discussion with the patient and/or guardian regarding: the historical points, exam findings, and any diagnostic results supporting the discharge/admit diagnosis, the need for outpatient follow up, a family practitioner, to return to the emergency department if symptoms worsen or persist or if there are any questions or concerns that arise at home. Administered Medications: No medications were administered Disposition Summary: 07/27/22 15:45 Discharge Ordered Location: Home kb Condition: Stable kb Diagnosis - Pain in right forearm kb Followup: kb - With: Emergency Department - When: As needed - Reason: Worsening of condition Followup: kb - With: Private Physician - When: 2 - 3 days - Reason: Recheck today's complaints, Continuance of care, Re-evaluation by your physician Discharge Instructions: - Discharge Summary Sheet kb - Musculoskeletal Pain kb Forms: - Work release form kb - Medication Reconciliation Form kb - Thank You Letter kb - Antibiotic Education kb - Prescription Opioid Use kb Prescriptions: - Ibuprofen 600 mg Oral Tablet - take 1 tablet by ORAL route every 6 hours As needed take with food; 30 tablet; kb Refills: 0, Product Selection Permitted - orphenadrine citrate 100 mg Oral Tablet Sustained Release - take 1 tablet by ORAL route 2 times per day As needed; 20 tablet; Refills: 0, kb Product Selection Permitted Signatures: Puja Valencia, Jennifer Davis, RN RN vg1
--- NOTE | 2022-07-27 15:53 | ER ---
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 Coronavirus screen: Vaccine status: Patient reports being unvaccinated. Client denies travel out of the [place] in the last 14 days. Ebola Screen: Patient negative for fever greater than or equal to 101.5 degrees Fahrenheit, and additional compatible Ebola Virus Disease symptoms Patient denies exposure to infectious person. Patient denies travel to an Ebola-affected area in the 21 days before illness onset. Initial Sepsis Screen: Does the patient meet any 2 criteria? No. Patient's initial sepsis screen is negative. Does the patient have a suspected source of infection? No. Patient's initial sepsis screen is negative. Risk Assessment: Do you want to hurt yourself or someone else?. Onset of symptoms was July 27, 2022. 15:43 Method Of Arrival: Ambulatory vg1 15:43 Acuity: VENTURA 4 vg1 Triage Assessment: 15:46 General: Appears in no apparent distress. uncomfortable, Behavior is calm, cooperative. vg1 Pain: Complains of pain in dorsal aspect of right forearm Pain currently is 8 out of 10 on a pain scale. Derm: Skin is pink, warm \\T\\ dry. Musculoskeletal: Circulation, motion, and sensation intact. 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 - Social history:: Smoking status: Patient denies any tobacco usage or history of. Screenin:51 [facility] ED Fall Risk Assessment (Adult) History of falling in the last 3 months, vg1 including since admission No falls in past 3 months (0 pts). Abuse screen: Denies threats or abuse. Denies injuries from another. Nutritional screening: No deficits noted. Tuberculosis screening: No symptoms or risk factors identified. Vital Signs: 15:43 Pulse 86; Resp 16; Temp 97.9(O); Pulse Ox 100% ; Weight 108.86 kg; Height 5 ft. 3 in. ; vg1 Pain 8/10; 15:43 Body Mass Index 42.51 (108.86 kg, 160.02 cm) vg1 15:43 Pain Scale: Adult vg1 ED Course: 15:41 Patient arrived in ED. mr 15:42 Puja Valnecia FNP-C [facility]. kb 15:42 Sonia Kendall MD is Attending Physician. kb 15:46 Triage completed. vg1 15:46 Arm band placed on. vg1 15:51 Patient has correct armband on for positive identification. vg1 15:51 No provider procedures requiring assistance completed. Patient did not have IV access vg1 during this emergency room visit. Administered Medications: No medications were administered Medication: 15:52 VIS not applicable for this client. vg1 Outcome: 15:45 Discharge ordered by MD. kb 15:51 Discharged to home ambulatory. vg1 15:51 Condition: good 15:51 Discharge instructions given to patient, Instructed on discharge instructions, follow up and referral plans. medication usage, Demonstrated understanding of instructions, follow-up care, medications, Prescriptions given X 2. 15:52 Patient left the ED. vg1 Signatures: Puja Valencia FNP-C FNP-Ckb Rivera, Mary Jennifer Collazo, RN RN vg1
--- OUTSIDE RECORDS SUMMARY | 2022-07-27 15:57 | XMS REPORT | Continuity of Care Document ---
:1990 Author Organization [facility] t Address [address] [place] [address] Care Team Providers Name Role Phone Radha Drummond NP Primary Care Physician Marcela Roche Attending Clinician Unavailable NUZHAT BROWN Attending Clinician Unavailable ELZBIETA GOMEZ Attending Clinician Unavailable RADHA DRUMMOND Attending Clinician Unavailable RADHA DRUMMOND Attending Clinician Unavailable DAWN MOROCHO Attending Clinician Unavailable Doctor Unassigned, [place] Attending Clinician Unavailable Elzbieta Gomez MD Attending Clinician Linda Barnett PT Attending Clinician Unavailable NGOZI THOMAS Attending Clinician Unavailable RYLAN MONTES Attending Clinician Unavailable Pob, [facility] Main Attending Clinician Unavailable Rita Baron MD Attending Clinician Radha Avitia MD Attending Clinician RADHA AVITIA Attending Clinician Unavailable TYLOR DEVLIN Attending Clinician Unavailable TYLOR DEVLIN Attending Clinician Unavailable JOSSELYN SANCHEZ Attending Clinician Unavailable Only, Isidoro Db Test Attending Clinician Unavailable Unknown, Attending Attending Clinician Unavailable DAWN MATTSON Attending Clinician Unavailable Dawn Mattson MD Attending Clinician GLADYS RAMOS Attending Clinician Unavailable Richard SERVINCGladys Attending Clinician ROSANNA BECKMAN Attending Clinician Unavailable Rosanna Beckman MD Attending Clinician LONG ALONZO Attending Clinician Unavailable Long Erazo Attending Clinician Lab, Ang - Db Attending Clinician Unavailable MICHEAL CALLES Attending Clinician Unavailable Micheal Calles PA-C Attending Clinician DENAE ROTH Attending Clinician Unavailable Denae Roth MD Attending Clinician RITA BARON Attending Clinician Unavailable Angelita Yepez Attending Clinician ANGELITA SAAVEDRA Attending Clinician Unavailable Josselyn Regalado Attending Clinician Karin Adan OD Attending Clinician LYDIA BENNETT Attending Clinician Unavailable Eve Salgado MD Attending Clinician FATEMEH HERZOG Attending Clinician Unavailable Fatemeh Lal Attending Clinician EVE SALGADO Attending Clinician Unavailable TRUDY GUDINO Attending Clinician Unavailable Trudy Burnham Attending Clinician Vince AGUILAR, Idalia Rosa Attending Clinician Unavailable Tylor Devlin MD Attending Clinician Linette Cook Attending Clinician LINETTE WILKINSON Attending Clinician Unavailable KARIN ADAN Attending Clinician Unavailable 2, [facility] Attending Clinician Unavailable JC MASCORRO Attending Clinician Unavailable BETHEL DOHERTY Attending Clinician Unavailable LOGAN HUBER Attending Clinician Unavailable LOGAN HUBER Attending Clinician Unavailable SEUN POST Attending Clinician Unavailable LETTY BELLO Attending Clinician Unavailable JANE TELLO Attending Clinician Unavailable MARÍA TOLEDO Attending Clinician Unavailable RADHA DRUMMOND Admitting Clinician Unavailable JOESPH MULLINS Admitting Clinician Unavailable Payers Payer Name Policy Type Policy Number Effective Date Expiration Date [place] pat[place] [id number] 2021 STAR 00:00:00 [facility] C1 [id number] Common Sp arianna [facility] CHILDRENS C1 [id number] [facility] [id number] Common Sp arianna [facility] CHILDRENS C1 [id number] [facility] [id number] Common Sp arianna HEALTH PLAN [facility] CHILDRENS C1 [id number] Common Sp arianna HEALTH PLAN [facility] CHILDRENS C1 [id number] Common Sp arianna HEALTH PLAN [facility] CHILDRENS C1 [id number] Common [facility] [id number] Common Sp [facility]ALTH [place] [id number] Common Sp arianna HEALTH PLAN - [facility] MEDICAID MC [id number] 2019 [facility] 00:00:[address] [facility] MEDICAID MC [id number] 2019 [facility] 00:00:00 [facility] Problems Condition Condition Condition Status Onset Resolution Last Treating Co mments Source Name Details Category Date Date Treatment Clinician Date Pain of Pain of Disease Active Univers left hand left hand 2-04 ity of 00:00: [address] Folliculit Folliculit Disease Active U nivers is is 2-04 ity of 00:00: [address] NAFLD NAFLD Disease Active Univers (nonalcoho (nonalcoho 8-02 [place] fatty [place] liver [place] disease) disease) Branch NAFLD NAFLD Disease Active Univers (nonalcoho (nonalcoho 09-10 [place] fatty [place] liver [place] disease) disease) Branch Metabolic Metabolic Disease Active Uni vers syndrome syndrome 8-24 ity of 00:00: [place] 00 Medical Branch Hyperglyce Hyperglyce Problem Active C ommon manuel manuel [facility] Hyperlipid Hyperlipid Problem Active C ommon emia emia [facility] Allergic Allergic Problem Active Commo n rhinitis rhinitis [facility] [id number] Uncontroll Problem Active Co mmon ed type 2 Spirit diabetes - CHI mellitus [facility] complicati Medica l on, Center without long-term current use of insulin Family Family Problem Active Common planning planning Spirit education, education, - CHI guidance, guidance, and and 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 hyperglyce [facility] PCOS PCOS Disease Active Univers (polycysti (polycysti [place] of c ovarian c ovarian [place] syndrome) syndrome) [facility] Branch [id number] History of Problem Active Co mmon hysterecto Spirit my [facility] [id number] Type 2 Problem [place] n 11326 diabetes Spirit mellitus - CHI with [facility] [id number] Mixed Problem Active Common hyperlipid Spirit emia - [facility] [id number] Numbness Problem Active Comm on of left Spirit foot - [facility] Allergies, Adverse Reactions, Alerts Allergy Allergy Status Severity Reaction(s) Onset Inactive Treating Comm ents Source Name Type Date Date Clinician Penicill DA Active U 2018-02 [facility] ins 02-14 [facility]: [address] tazobact DA Active U 2018-02 [facility] am 02-14 00:00: [address] piperaci DA Active U 2018-02 [facility] llin 02-14 00:00: [address] PIPERACI DRUG Active High Anaphylaxis 2018- Uni vers LLIN-CLARK 8-21 ity of OBACTAM 00:00: [place] [address] Medical Branch Piperaci Propensi Active Anaphylaxis 2018-0 U nivers llin-Clark ty to 8-21 ity of obactam adverse 00:00: [place] [address] Medical s Branch piperaci piperaci Active shortness of Common llin / llin / breath Spirit tazobact tazobact - CHI am [facility] Social History Social Habit Start Date Stop Date Quantity Comments Source History SDWA University o f Alcohol Std [place] [facility] Drinks Branch History [facility] University o f Alcohol Binge [place] [facility] al Branch History [facility] University o f Alcohol Comment [place] Med ical Branch History of [facility] - Tobacco Use [facility] Sex Assigned At Common Sp arianna - [facility] Exposure to 2022-05-31 2022-06-10 Not sure [facility] SARS-CoV-2 00:00:00 10:25:00 [place] [facility] (event) Branch Alcohol intake 2022-06-10 2022-06-10 Lifetime University of 00:00:00 00:00:00 non-drinker [facility] [place] [facility] (finding) Branch Tobacco use and 2022-02-12 2022-02-12 Smokeless tobacco Un iversity of exposure 00:00:00 00:00:00 non-user [place] [facility] History SDOH 2018-08-16 2018-08-16 1 University o f Alcohol Frequency 00:00:00 00:00:00 [place] M edical Branch Education 2018-08-16 2018-08-16 13 University of 00:00:00 00:00:00 [place] [facility] History SDWA 2018-08-16 2018-08-16 3 University o f Financial 00:00:00 00:00:00 [place] [facility] History SDWA Food 2018-08-16 2018-08-16 1 Univers ity of Worry 00:00:00 00:00:00 [place] [facility] History SDWA Food 2018-08-16 2018-08-16 2 Univers ity of Scarcity 00:00:00 00:00:00 [place] [facility] History [facility] 2018-08-16 2018-08-16 2 University o f Transport Med 00:00:00 00:00:00 [place] Medic al Branch History [facility] 2018-08-16 2018-08-16 2 [place] o f Transport Non-Med 00:00:00 00:00:00 [facility] [place] [facility] Smoking Status Start Date Stop Date Source Never smoked tobacco [facility] [place] [facility] Medications Ordered Filled Start Stop Current Ordering Indication Dosage Frequency Signature Comments Components Source Medication Medication Date Date Medication? Clinician (SIG) Name Name insulin 2022- No 55U inject 55 Univ ers glargine 5- 05-02 Units ity of 100 unit/mL 11:29: 00:00 under the [place] injection 43 :00 skin in [facility] morning. insulin 2022- No 55U inject 55 Univ ers glargine 5-02 05-02 Units ity of 100 unit/mL 11:29: 00:00 under the [place] injection 43 :00 skin in [facility] morning. Insulin 2022- No 74 units Unive rs Glargine 06-10-02 and ity of (LANTUS 11:29: 00:00 increase [place] SOLOSTAR 37 :00 by 2 units Medic al U-100 every 2 Branch INSULIN) days until 100 unit/mL fbg less (3 mL) 120 ( max injection of 80 units daily) Insulin 2022- No 74 units Unive rs Glargine 5-02 05-02 and ity of (LANTUS 11:29: 00:00 increase [place] SOLOSTAR 37 :00 by 2 units Medic al U-100 every 2 Branch INSULIN) days until 100 unit/mL fbg less (3 mL) 120 ( max injection of 80 units daily) insulin Yes [id number] 55U inject 55 U nivers glargine 5-02 Units ity of 100 unit/mL 00:00: [place] injection 00 skin in [facility] morning. insulin 2022-0 Yes [id number] 55U inject 55 U nivers glargine 5-02 Units ity of 100 unit/mL 00:00: [place] injection 00 skin in [facility] morning. insulin 2022-0 Yes [id number] 55U inject 55 U nivers glargine 5-02 Units ity of 100 unit/mL 00:00: [place] the [place] injection [place] skin in [facility] morning. insulin 2022-0 Yes [id number] 55U inject 55 U nivers glargine 5-02 Units ity of 100 unit/mL 00:00: [place] the [place] injection 00 skin in [facility] morning. insulin 2022-0 Yes [id number] 55U inject 55 U nivers glargine 5-02 Units ity of 100 unit/mL 00:00: [place] the [place] injection [place] skin in [facility] morning. insulin 2022-0 Yes [id number] 55U inject 55 U nivers glargine 5-02 Units ity of 100 unit/mL 00:00: [place] the [place] injection 00 skin in [facility] morning. Diclofenac 2022-0 Yes [id number] Take 2-4 Univers Sodium 4-17 grams ity of (VOLTAREN) 00:00: three [place] 1 % gel 00 times a Medical day as Branch needed for pain acetaminoph 2022-0 Yes [id number] 650mg Take 1 Univers en (TYLENOL 4-17 tablet by ity of ARTHRITIS 00:00: mouth [place] PAIN) 650 00 every 8 Medical mg CR (eight) Branch tablet hours as needed for Pain. Diclofenac 2022-0 Yes [id number] Take 2-4 Univers Sodium 4-17 grams ity of (VOLTAREN) 00:00: three [place] 1 % gel 00 times a Medical day as Branch needed for pain acetaminoph 2022-0 Yes [id number] 650mg Take 1 Univers en (TYLENOL 4-17 tablet by ity of ARTHRITIS 00:00: mouth [place] PAIN) 650 00 every 8 Medical mg CR (eight) Branch tablet hours as needed for Pain. Diclofenac 2022-0 Yes [id number] Take 2-4 Univers Sodium 4-17 grams ity of (VOLTAREN) 00:00: three [place] 1 % gel 00 times a Medical day as Branch needed for pain acetaminoph 2023-0 Yes [id number] 650mg Take 1 Univers en (TYLENOL 4-17 tablet by ity of ARTHRITIS 00:00: mouth [place] PAIN) 650 00 every 8 Medical mg CR (eight) Branch tablet hours as needed for Pain. Diclofenac 3-0 Yes [id number] Take 2-4 Univers Sodium 4-17 grams ity of (VOLTAREN) 00:00: three [place] 1 % gel 00 times a Medical day as Branch needed for pain acetaminoph 2023-0 Yes [id number] 650mg Take 1 Univers en (TYLENOL 4-17 tablet by ity of ARTHRITIS 00:00: mouth [place] PAIN) 650 00 every 8 Medical mg CR (eight) Branch tablet hours as needed for Pain. Diclofenac 3-0 Yes [id number] Take 2-4 Univers Sodium 4-17 grams ity of (VOLTAREN) 00:00: three [place] 1 % gel 00 times a Medical day as Branch needed for pain acetaminoph 2023-0 Yes [id number] 650mg Take 1 Univers en (TYLENOL 4-17 tablet by ity of ARTHRITIS 00:00: mouth [place] PAIN) 650 00 every 8 Medical mg CR (eight) Branch tablet hours as needed for Pain. Diclofenac 3-0 Yes [id number] Take 2-4 Univers Sodium 4-17 grams ity of (VOLTAREN) 00:00: three [place] 1 % gel 00 times a Medical day as Branch needed for pain acetaminoph 2023-0 Yes [id number] 650mg Take 1 Univers en (TYLENOL 4-17 tablet by ity of ARTHRITIS 00:00: mouth [place] PAIN) 650 00 every 8 Medical mg CR (eight) Branch tablet hours as needed for Pain. Diclofenac 3-0 Yes [id number] Take 2-4 Univers Sodium 4-17 grams ity of (VOLTAREN) 00:00: three [place] 1 % gel 00 times a Medical day as Branch needed for pain acetaminoph 2023-0 Yes [id number] 650mg Take 1 Univers en (TYLENOL 4-17 tablet by ity of ARTHRITIS 00:00: mouth [place] PAIN) 650 00 every 8 Medical mg CR (eight) Branch tablet hours as needed for Pain. Diclofenac 2022-0 Yes [id number] Take 2-4 Univers Sodium 4-17 grams ity of (VOLTAREN) 00:00: three [place] 1 % gel 00 times a Medical day as Branch needed for pain acetaminoph 2022-0 Yes [id number] 650mg Take 1 Univers en (TYLENOL 4-17 tablet by ity of ARTHRITIS 00:00: mouth [place] PAIN) 650 00 every 8 Medical mg CR (eight) Branch tablet hours as needed for Pain. Diclofenac 2022-0 Yes [id number] Take 2-4 Univers Sodium 4-17 grams ity of (VOLTAREN) 00:00: three [place] 1 % gel 00 times a Medical day as Branch needed for pain acetaminoph 2022-0 Yes [id number] 650mg Take 1 Univers en (TYLENOL 4-17 tablet by ity of ARTHRITIS 00:00: mouth [place] PAIN) 650 00 every 8 Medical mg CR (eight) Branch tablet hours as needed for Pain. metformin 2022-0 Yes [id number] 1000mg Take 2 Univers ER 500 mg 4-14 tablets by ity of 24 hr 00:00: mouth [place] tablet 00 daily with Medical breakfast. Branch metformin 2022-0 Yes [id number] 1000mg Take 2 Univers ER 500 mg 4-14 tablets by ity of 24 hr 00:00: mouth [place] tablet 00 daily with Medical breakfast. Branch gabapentin 2022-0 Yes [id number] 300mg Take 1 Univers 300 mg 4-14 capsule by ity of capsule 00:00: mouth in [place] 00 the Medical morning Branch and 1 capsule at noon and 1 capsule in the evening. methocarbam 2022-0 Yes [id number] 750mg Take 1 Univers oL 750 mg 4-14 tablet by ity o f tablet 00:00: mouth 3 [place] 00 (three) Medical times Branch daily as needed for Pain (scale 7-10). metformin 2022-0 Yes [id number] 1000mg Take 2 Univers ER 500 mg 4-14 tablets by ity of 24 hr 00:00: mouth [place] tablet 00 daily with Medical breakfast. Branch gabapentin 2022-0 Yes [id number] 300mg Take 1 Univers 300 mg 4-14 capsule by ity of capsule 00:00: mouth in [place] 00 the Medical morning Branch and 1 capsule at noon and 1 capsule in the evening. methocarbam 202-0 Yes [id number] 750mg Take 1 Univers oL 750 mg 4-14 tablet by ity o f tablet 00:00: mouth 3 00 (three) Medical times Branch daily as needed for Pain (scale 7-10). metformin 3-0 Yes [id number] 1000mg Take 2 Univers ER 500 mg 4-14 tablets by ity of 24 hr 00:00: mouth [place] tablet 00 daily with Medical breakfast. Branch gabapentin 2022-0 Yes [id number] 300mg Take 1 Univers 300 mg 4-14 capsule by ity of capsule 00:00: mouth in 00 the Medical morning Branch and 1 capsule at noon and 1 capsule in the evening. methocarbam 2023-0 Yes [id number] 750mg Take 1 Univers oL 750 mg 4-14 tablet by ity o f tablet 00:00: mouth 3 (three) Medical times Branch daily as needed for Pain (scale 7-10). metformin 2022-0 Yes [id number] 1000mg Take 2 Univers ER 500 mg 4-14 tablets by ity of 24 hr 00:00: mouth [place] tablet 00 daily with Medical breakfast. Branch gabapentin 2022-0 Yes [id number] 300mg Take 1 Univers 300 mg 4-14 capsule by ity of capsule 00:00: mouth in the Medical morning Branch and 1 capsule at noon and 1 capsule in the evening. methocarbam 3-0 Yes [id number] 750mg Take 1 Univers oL 750 mg 4-14 tablet by ity o f tablet 00:00: mouth 3 (three) Medical times Branch daily as needed for Pain (scale 7-10). metformin 2022-0 Yes [id number] 1000mg Take 2 Univers ER 500 mg 4-14 tablets by ity of 24 hr 00:00: mouth [place] tablet 00 daily with Medical breakfast. Branch gabapentin 3-0 Yes [id number] 300mg Take 1 Univers 300 mg 4-14 capsule by ity of capsule 00:00: mouth in 00 the Medical morning Branch and 1 capsule at noon and 1 capsule in the evening. methocarbam 2023-0 Yes [id number] 750mg Take 1 Univers oL 750 mg 4-14 tablet by ity o f tablet 00:00: mouth 3 00 (three) Medical times Branch daily as needed for Pain (scale 7-10). metformin 2023-0 Yes [id number] 1000mg Take 2 Univers ER 500 mg 4-14 tablets by ity of 24 hr 00:00: mouth [place] tablet 00 daily with Medical breakfast. Branch gabapentin 2022-0 Yes [id number] 300mg Take 1 Univers 300 mg 4-14 capsule by ity of capsule 00:00: mouth in [place] 00 the Medical morning Branch and 1 capsule at noon and 1 capsule in the evening. methocarbam 2023-0 Yes [id number] 750mg Take 1 Univers oL 750 mg 4-14 tablet by ity o f tablet 00:00: mouth 3 00 (three) Medical times Branch daily as needed for Pain (scale 7-10). metformin 2022-0 Yes [id number] 1000mg Take 2 Univers ER 500 mg 4-14 tablets by ity of 24 hr 00:00: mouth [place] tablet 00 daily with Medical breakfast. Branch gabapentin 2022-0 Yes [id number] 300mg Take 1 Univers 300 mg 4-14 capsule by ity of capsule 00:00: mouth in [place] the Medical morning Branch and 1 capsule at noon and 1 capsule in the evening. methocarbam 3-0 Yes [id number] 750mg Take 1 Univers oL 750 mg 4-14 tablet by ity o f tablet 00:00: mouth 3 (three) Medical times Branch daily as needed for Pain (scale 7-10). metformin 2022-0 Yes [id number] 1000mg Take 2 Univers ER 500 mg 4-14 tablets by ity of 24 hr 00:00: mouth [place] tablet 00 daily with Medical breakfast. Branch gabapentin 2022-0 Yes [id number] 300mg Take 1 Univers 300 mg 4-14 capsule by ity of capsule 00:00: mouth in [place] the Medical morning Branch and 1 capsule at noon and 1 capsule in the evening. methocarbam 2023-0 Yes [id number] 750mg Take 1 Univers oL 750 mg 4-14 tablet by ity o f tablet 00:00: mouth 3 (three) Medical times Branch daily as needed for Pain (scale 7-10). metformin 3-0 Yes [id number] 1000mg Take 2 Univers ER 500 mg 4-14 tablets by ity of 24 hr 00:00: mouth [place] tablet 00 daily with Medical breakfast. Branch gabapentin 2022-0 Yes [id number] 300mg Take 1 Univers 300 mg 4-14 capsule by ity of capsule 00:00: mouth in [place] the Medical morning Branch and 1 capsule at noon and 1 capsule in the evening. methocarbam 2023-0 Yes [id number] 750mg Take 1 Univers oL 750 mg 4-14 tablet by ity o f tablet 00:00: mouth 3 (three) Medical times Branch daily as needed for Pain (scale 7-10). metformin 2022-0 Yes [id number] 1000mg Take 2 Univers ER 500 mg 4-14 tablets by ity of 24 hr 00:00: mouth [place] tablet 00 daily with Medical breakfast. Branch gabapentin 2022-0 Yes [id number] 300mg Take 1 Univers 300 mg 4-14 capsule by ity of capsule 00:00: mouth in [place] the Medical morning Branch and 1 capsule at noon and 1 capsule in the evening. methocarbam 2023-0 Yes [id number] 750mg Take 1 Univers oL 750 mg 4-14 tablet by ity o f tablet 00:00: mouth 3 (three) Medical times Branch daily as needed for Pain (scale 7-10). metformin 2022-0 Yes [id number] 1000mg Take 2 Univers ER 500 mg 4-14 tablets by ity of 24 hr 00:00: mouth [place] tablet 00 daily with Medical breakfast. Branch gabapentin 2022-0 Yes [id number] 300mg Take 1 Univers 300 mg 4-14 capsule by ity of capsule 00:00: mouth in [place] the Medical morning Branch and 1 capsule at noon and 1 capsule in the evening. methocarbam 2023-0 Yes [id number] 750mg Take 1 Univers oL 750 mg 4-14 tablet by ity o f tablet 00:00: mouth 3 (three) Medical times Branch daily as needed for Pain (scale 7-10). metformin 3-0 Yes [id number] 1000mg Take 2 Univers ER 500 mg 4-14 tablets by ity of 24 hr 00:00: mouth [place] tablet 00 daily with Medical breakfast. Branch gabapentin 3-0 Yes [id number] 300mg Take 1 Univers 300 mg 4-14 capsule by ity of capsule 00:00: mouth in [place] the Medical morning Branch and 1 capsule at noon and 1 capsule in the evening. methocarbam 2023-0 Yes [id number] 750mg Take 1 Univers oL 750 mg 4-14 tablet by ity o f tablet 00:00: mouth 3 [place] 00 (three) Medical times [place] daily as needed for Pain (scale 7-10). metformin 2022-0 Yes [id number] 1000mg Take 2 Univers ER 500 mg 4-14 tablets by ity of 24 hr 00:00: mouth [place] tablet 00 daily with Medical breakfast. Branch gabapentin 2022-0 Yes [id number] 300mg Take 1 Univers 300 mg 4-14 capsule by ity of capsule 00:00: mouth in [place] 00 the Medical morning Branch and 1 capsule at noon and 1 capsule in the evening. methocarbam 2022- Yes [id number] 750mg Take 1 Univers oL 750 mg 4-14 tablet by ity o f tablet 00:00: mouth 3 00 (three) Medical times [place] daily as needed for Pain (scale 7-10). semaglutide 2022- Yes [id number] 1mg inject 1 Univers (OZEMPIC) 1 4-14 06-14 mg under ity of mg/dose (4 00:00: 04:59 [place] skin [place] mg/3 mL) 00 :00 weekly for Medic al PnIj 60 days. Branch semaglutide 2022- Yes [id number] 1mg inject 1 Univers (OZEMPIC) 1 4-14 06-14 mg under ity of mg/dose (4 00:00: 04:59 the skin [place] mg/3 mL) 00 :00 weekly for Medic al PnIj 60 days. Branch semaglutide 2022- Yes [id number] 1mg inject 1 Univers (OZEMPIC) 1 4-14 06-14 mg under ity of mg/dose (4 00:00: 04:59 the skin [place] mg/3 mL) 00 :00 weekly for Medic al PnIj 60 days. Branch semaglutide 2022- Yes [id number] 1mg inject 1 Univers (OZEMPIC) 1 4-14 06-14 mg under ity of mg/dose (4 00:00: 04:59 the skin [place] mg/3 mL) 00 :00 weekly for Medic al PnIj 60 days. Branch semaglutide 2022- Yes [id number] 1mg inject 1 Univers (OZEMPIC) 1 4-14 06-14 mg under ity of mg/dose (4 00:00: 04:59 the skin [place] mg/3 mL) 00 :00 weekly for Medic al PnIj 60 days. Branch semaglutide 2022- Yes [id number] 1mg inject 1 Univers (OZEMPIC) 1 4-14 06-14 mg under ity of mg/dose (4 00:00: 04:59 the skin [place] mg/3 mL) 00 :00 weekly for Medic al PnIj 60 days. Branch semaglutide 2022- Yes [id number] 1mg inject 1 Univers (OZEMPIC) 1 4-14 06-14 mg under ity of mg/dose (4 00:00: 04:59 the skin [place] mg/3 mL) 00 :00 weekly for Medic al PnIj 60 days. Branch semaglutide 2022- Yes [id number] 1mg inject 1 Univers (OZEMPIC) 1 4-14 06-14 mg under ity of mg/dose (4 00:00: 04:59 the skin [place] mg/3 mL) 00 :00 weekly for Medic al PnIj 60 days. Branch semaglutide 2022- Yes [id number] 1mg inject 1 Univers (OZEMPIC) 1 4-14 06-14 mg under ity of mg/dose (4 00:00: 04:59 the skin [place] mg/3 mL) 00 :00 weekly for Medic al PnIj 60 days. Branch semaglutide 2022- Yes [id number] 1mg inject 1 Univers (OZEMPIC) 1 4-14 06-14 mg under ity of mg/dose (4 00:00: 04:59 the skin [place] mg/3 mL) 00 :00 weekly for Medic al PnIj 60 days. Branch semaglutide 2022- Yes [id number] 1mg inject 1 Univers (OZEMPIC) 1 4-14 06-14 mg under ity of mg/dose (4 00:00: 04:59 the skin [place] mg/3 mL) 00 :00 weekly for Medic al PnIj 60 days. Branch semaglutide 2022- Yes [id number] 1mg inject 1 Univers (OZEMPIC) 1 4-14 06-14 mg under ity of mg/dose (4 00:00: 04:59 the skin [place] mg/3 mL) 00 :00 weekly for Medic al PnIj 60 days. Branch semaglutide 2022- Yes [id number] 1mg inject 1 [facility] (OZEMPIC) 1 - 06-14 mg under ity of mg/dose (4 00:00: 04:59 the skin [place] mg/3 mL) 00 :00 weekly for Medic al PnIj 60 days. Branch semaglutide 2022- Yes [id number] 1mg inject 1 [facility] (OZEMPIC) 1 -14 06-14 mg under ity of mg/dose (4 00:00: 04:59 the skin [place] mg/3 mL) 00 :00 weekly for Medic al PnIj 60 days. Branch semaglutide 2022- Yes [id number] .25mg inject [facility] (OZEMPIC) 05-23 05-24 0.25 mg ity of 0.25 mg or 00:00: 04:59 under the [place] 0.5 mg (2 00 :00 skin Medical mg/3 mL) weekly Branch PnIj semaglutide 2022- Yes [id number] .25mg inject [facility] (OZEMPIC) 05-23-24 0.25 mg ity of 0.25 mg or 00:00: 04:59 under the [place] 0.5 mg (2 00 :00 skin Medical mg/3 mL) weekly Branch PnIj semaglutide 2022- Yes [id number] .25mg inject [facility] (OZEMPIC) 05-23 05-24 0.25 mg ity of 0.25 mg or 00:00: 04:59 under the [place] 0.5 mg (2 00 :00 skin Medical mg/3 mL) weekly Branch PnIj semaglutide 2022- Yes [id number] .25mg inject [facility] (OZEMPIC) 05-23 05-24 0.25 mg ity of 0.25 mg or 00:00: 04:59 under the [place] 0.5 mg (2 00 :00 skin Medical mg/3 mL) weekly Branch PnIj semaglutide 2022- Yes [id number] .25mg inject [facility] (OZEMPIC) 05-23 05-24 0.25 mg ity of 0.25 mg or 00:00: 04:59 under the [place] 0.5 mg (2 00 :00 skin Medical mg/3 mL) weekly Branch PnIj semaglutide 2022- Yes [id number] .25mg inject [facility] (OZEMPIC) 05-23 05-24 0.25 mg ity of 0.25 mg or 00:00: 04:59 under the [place] 0.5 mg (2 00 :00 skin Medical mg/3 mL) weekly Branch PnIj semaglutide 2022- No [id number] .25mg inject [facility] (OZEMPIC) 05-23 05-24 0.25 mg ity of 0.25 mg or 00:00: 04:59 under the [place] 0.5 mg (2 00 :00 skin Medical mg/3 mL) weekly Branch PnIj semaglutide 2022- Yes [id number] .25mg inject [facility] (OZEMPIC) 05-23 05-15 0.25 mg ity of 0.25 mg or 00:00: 04:59 under the [place] 0.5 mg(2 00 :00 skin Medical mg/1.5 mL) weekly for Bra nch PnIj 30 days. semaglutide 2022- Yes [id number] .5mg inject 0.5 [facility] (OZEMPIC) 4-14 05-15 mg under ity o f 0.25 mg or 00:00: 04:59 the skin [place] 0.5 mg(2 00 :00 weekly for Medic al mg/1.5 mL) 30 days. Branc h PnIj semaglutide 2022- Yes [id number] .25mg inject [facility] (OZEMPIC) 4-14 05-15 0.25 mg ity of 0.25 mg or 00:00: 04:59 under the [place] 0.5 mg(2 00 :00 skin Medical mg/1.5 mL) weekly for Bra nch PnIj 30 days. semaglutide 2022- Yes [id number] .5mg inject 0.5 [facility] (OZEMPIC) 4-14 05-15 mg under ity o f 0.25 mg or 00:00: 04:59 the skin [place] 0.5 mg(2 00 :00 weekly for Medic al mg/1.5 mL) 30 days. [facility] semaglutide 2022- Yes [id number] .25mg inject [facility] (OZEMPIC) 4-14 05-15 0.25 mg ity of 0.25 mg or 00:00: 04:59 under the [place] 0.5 mg(2 00 :00 skin Medical mg/1.5 mL) weekly for Bra nc PnIj 30 days. semaglutide 2022- Yes [id number] .5mg inject 0.5 [facility] (OZEMPIC) 4-14 05-15 mg under ity o f 0.25 mg or 00:00: 04:59 the skin [place] 0.5 mg(2 00 :00 weekly for Medic al mg/1.5 mL) 30 days. [facility] semaglutide 2022- Yes [id number] .25mg inject [facility] (OZEMPIC) 4-14 05-15 0.25 mg ity of 0.25 mg or 00:00: 04:59 under the [place] 0.5 mg(2 00 :00 skin Medical mg/1.5 mL) weekly for Bra [facility] PnIj 30 days. semaglutide 2022- Yes [id number] .[id number] inject 0.5 [facility] (OZEMPIC) 4-14 05-15 mg under ity o f 0.25 mg or 00:00: 04:59 the skin [place] 0.5 mg(2 00 :00 weekly for Medic al mg/1.5 mL) 30 days. [facility] semaglutide 2022- Yes [id number] .25mg inject [facility] (OZEMPIC) 4-14 05-15 0.25 mg ity of 0.25 mg or 00:00: 04:59 under the [place] 0.5 mg(2 00 :00 skin Medical mg/1.5 mL) weekly for Bra nch PnIj 30 days. semaglutide 2022- Yes [id number] .5mg inject 0.5 [facility] (OZEMPIC) 4-14 05-15 mg under ity o f 0.25 mg or 00:00: 04:59 the skin [place] 0.5 mg(2 00 :00 weekly for Medic al mg/1.5 mL) 30 days. [facility] PnIj semaglutide 2022- Yes [id number] .25mg inject [facility] (OZEMPIC) 4-14 05-15 0.25 mg ity of 0.25 mg or 00:00: 04:59 under the [place] 0.5 mg(2 00 :00 skin Medical mg/1.5 mL) weekly for Bra [facility] PnIj 30 days. semaglutide 2022- Yes [id number] .5mg inject 0.5 [facility] (OZEMPIC) 4-14 05-15 mg under ity o f 0.25 mg or 00:00: 04:59 the skin [place] 0.5 mg(2 00 :00 weekly for Medic al mg/1.5 mL) 30 days. [facility] PnIj semaglutide 2022- Yes [id number] .5mg inject 0.5 [facility] (OZEMPIC) 4-14 05-15 mg under ity o f 0.25 mg or 00:00: 04:59 the skin [place] 0.5 mg (2 00 :00 weekly for Medi jorge a mg[facility]3 mL[facility] [id number] .5mg inject 0.5 [facility] (OZEMPIC) 4-14 05-15 mg under ity o f 0.25 mg or 00:00: 04:59 the skin [place] 0.5 mg (2 00 :00 weekly for Medi jorge a mg/3 mL) 30 days. Branch Ij semaglutide 2022- Yes [id number] .5mg inject 0.5 [facility] (OZEMPIC) 4-14 05-15 mg under ity o f 0.25 mg or 00:00: 04:59 the skin [place] 0.5 mg (2 00 :00 weekly for Medi jorge a mg/3 mL) 30 days. Branch Ij semaglutide 2022- Yes [id number] .[id number] inject 0.5 [facility] (OZEMPIC) 4-14 05-15 mg under ity o f 0.25 mg or 00:00: 04:59 the skin [place] 0.5 mg (2 00 :00 weekly for Medi jorge a mg/3 mL) 30 days. Branch PnIj metFORMIN 2022-0 Yes [id number] TAKE 2 Un edy (GLUMETZA) 4-08 TABLETS BY ity of 500 mg 24 00:00: MOUTH 2 [place] hr tablet 00 TIMES Medical DAILY WITH Branch MEALS. metFORMIN 2022-0 Yes [id number] TAKE 2 Un edy (GLUMETZA) 4-08 TABLETS BY ity of 500 mg 24 00:00: MOUTH 2 [place] hr tablet 00 TIMES Medical DAILY WITH Branch MEALS. metFORMIN 2022-0 Yes [id number] TAKE 2 Un edy (GLUMETZA) 4-08 TABLETS BY ity of 500 mg 24 00:00: MOUTH 2 [place] hr tablet 00 TIMES Medical DAILY WITH Branch MEALS. metFORMIN 2022-0 3- No [id number] TAKE 2 U nivers (GLUMETZA) 4-08 04-14 TABLETS BY it y of 500 mg 24 00:00: 00:00 M[place]TH 2 [place] tablet 00 :00 TIMES Medical DAILY WITH Branch MEALS. metFORMIN 2022-3- No [id number] TAKE 2 U nivers (GLUMETZA) 4-08 04-14 TABLETS BY it y of 500 mg 24 00:00: 00:00 MOUTH 2 [place] tablet 00 :00 TIMES Medical DAILY WITH Branch MEALS. topiramate 2022-0 Yes [id number] 50mg Take 1 [facility] 50 mg 2-20 tablet by ity of tablet 00:00: mouth in [place] 00 the Medical morning. Branch topiramate 2022-0 Yes [id number] 50mg Take 1 [facility] 50 mg 2-20 tablet by ity of tablet 00:00: mouth in [place] 00 the Medical morning. Branch topiramate 2022-0 Yes [id number] 50mg Take 1 [facility] 50 mg 2-20 tablet by ity of tablet 00:00: mouth in [place] 00 the Medical morning. Branch topiramate 2022-0 Yes [id number] 50mg Take 1 [facility] 50 mg 2-20 tablet by ity of tablet 00:00: mouth in [place] 00 the Medical morning. Branch topiramate 2022-0 Yes [id number] 50mg Take 1 [facility] 50 mg 2-20 tablet by ity of tablet 00:00: mouth in [place] 00 the Medical morning. Branch topiramate 2022-0 Yes [id number] 50mg Take 1 [facility] 50 mg 2-20 tablet by ity of tablet 00:00: mouth in [place] 00 the Medical morning. Branch topiramate 2023-0 Yes [id number] 50mg Take 1 [facility] 50 mg 2-20 tablet by ity of tablet 00:00: mouth in [place] the Medical morning. Branch topiramate 2023-0 Yes [id number] 50mg Take 1 [facility] 50 mg 2-20 tablet by ity of tablet 00:00: mouth in [place] the Medical morning. Branch topiramate 2023-0 Yes [id number] 50mg Take 1 [facility] 50 mg 2-20 tablet by ity of tablet 00:00: mouth in [place] the Medical morning. Branch topiramate 2023-0 Yes [id number] 50mg Take 1 [facility] 50 mg 2-20 tablet by ity of tablet 00:00: mouth in [place] the Medical morning. Branch topiramate 2023-0 Yes [id number] 50mg Take 1 [facility] 50 mg 2-20 tablet by ity of tablet 00:00: mouth in [place] the Medical morning. Branch topiramate 2023-0 Yes [id number] 50mg Take 1 [facility] 50 mg 2-20 tablet by ity of tablet 00:00: mouth in [place] the Medical morning. Branch topiramate 2023-0 Yes [id number] 50mg Take 1 [facility] 50 mg 2-20 tablet by ity of tablet 00:00: mouth in [place] the Medical morning. Branch topiramate 2023-0 Yes [id number] 50mg Take 1 [facility] 50 mg 2-20 tablet by ity of tablet 00:00: mouth in [place] the Medical morning. Branch topiramate 2023-0 Yes [id number] 50mg Take 1 [facility] 50 mg 2-20 tablet by ity of tablet 00:00: mouth in [place] the Medical morning. Branch topiramate 2023-0 Yes [id number] 50mg Take 1 [facility] 50 mg 2-20 tablet by ity of tablet 00:00: mouth in [place] the Medical morning. Branch topiramate 2023-0 Yes [id number] 50mg Take 1 [facility] 50 mg 2-20 tablet by ity of tablet 00:00: mouth in [place] 00 the Medical morning. Branch topiramate 2023-0 Yes [id number] 50mg Take 1 [facility] 50 mg 2-20 tablet by ity of tablet 00:00: mouth in [place] the Medical morning. Branch topiramate 2023-0 Yes [id number] 50mg Take 1 [facility] 50 mg 2-20 tablet by ity of tablet 00:00: mouth in [place] 00 the Medical morning. Branch topiramate Yes [id number] 50mg Take 1 [facility] 50 mg 2-20 tablet by ity of tablet 00:00: mouth in [place] 00 the Medical morning. Branch Insulin Yes 74 units Univer s Glargine 2-07 and ity of (LANTUS 13:54: increase [place] SOLOSTAR 54 by 2 units Medic al U-100 every 2 Branch INSULIN) days until 100 unit/mL fbg less (3 mL) 120 ( max injection of 80 units daily) Insulin Yes 74 units Univer s Glargine 2-07 and ity of (LANTUS 13:54: increase [place] SOLOSTAR 54 by 2 units Medic al U-100 every 2 Branch INSULIN) days until 100 unit/mL fbg less (3 mL) 120 ( max injection of 80 units daily) Insulin Yes 74 units Univer s Glargine 2-07 and ity of (LANTUS 13:54: increase [place] SOLOSTAR 54 by 2 units Medic al U-100 every 2 Branch INSULIN) days until 100 unit/mL fbg less (3 mL) 120 ( max injection of 80 units daily) Insulin Yes 74 units Univer s Glargine 2-07 and ity of (LANTUS 13:54: increase [place] SOLOSTAR 54 by 2 units Medic al U-100 every 2 Branch INSULIN) days until 100 unit/mL fbg less (3 mL) 120 ( max injection of 80 units daily) Insulin Yes 74 units Univer s Glargine 2-07 and ity of (LANTUS 13:54: increase [place] SOLOSTAR 54 by 2 units Medic al U-100 every 2 Branch INSULIN) days until 100 unit/mL fbg less (3 mL) 120 ( max injection of 80 units daily) Insulin Yes 74 units Univer s Glargine 2-07 and ity of (LANTUS 13:54: increase [place] SOLOSTAR 54 by 2 units Medic al U-100 every 2 Branch INSULIN) days until 100 unit/mL fbg less (3 mL) 120 ( max injection of 80 units daily) Insulin 0 Yes 74 units Univer s Glargine 2-07 and ity of (LANTUS 13:54: increase [place] SOLOSTAR 54 by 2 units Medic al U-100 every 2 Branch INSULIN) days until 100 unit/mL fbg less (3 mL) 120 ( max injection of 80 units daily) Insulin 2022-0 Yes 74 units Univer s Glargine 2-07 and ity of (LANTUS 13:54: increase [place] SOLOSTAR 54 by 2 units Medic al U-100 every 2 Branch INSULIN) days until 100 unit/mL fbg less (3 mL) 120 ( max injection of 80 units daily) Insulin 2022-0 Yes 74 units Univer s Glargine 2-07 and ity of (LANTUS 13:54: increase [place] SOLOSTAR 54 by 2 units Medic al U-100 every 2 Branch INSULIN) days until 100 unit/mL fbg less (3 mL) 120 ( max injection of 80 units daily) Insulin 0 Yes 74 units Univer s Glargine 2-07 and ity of (LANTUS 13:54: increase [place] SOLOSTAR 54 by 2 units Medic al U-100 every 2 Branch INSULIN) days until 100 unit/mL fbg less (3 mL) 120 ( max injection of 80 units daily) Insulin 2022-0 Yes 74 units Univer s Glargine 2-07 and ity of (LANTUS 13:54: increase [place] SOLOSTAR 54 by 2 units Medic al U-100 every 2 Branch INSULIN) days until 100 unit/mL fbg less (3 mL) 120 ( max injection of 80 units daily) Insulin 2022-0 Yes 74 units Univer s Glargine 2-07 and ity of (LANTUS 13:54: increase [place] SOLOSTAR 54 by 2 units Medic al U-100 every 2 Branch INSULIN) days until 100 unit/mL fbg less (3 mL) 120 ( max injection of 80 units daily) Insulin 2022-0 Yes 74 units Univer s Glargine 2-07 and ity of (LANTUS 13:54: increase [place] SOLOSTAR 54 by 2 units Medic al U-100 every 2 Branch INSULIN) days until 100 unit/mL fbg less (3 mL) 120 ( max injection of 80 units daily) Insulin 2022-0 Yes 74 units Univer s Glargine 2-07 and ity of (LANTUS 13:54: increase [place] SOLOSTAR 54 by 2 units Medic al U-100 every 2 Branch INSULIN) days until 100 unit/mL fbg less (3 mL) 120 ( max injection of 80 units daily) Insulin 0 Yes 74 units Univer s Glargine 2-07 and ity of (LANTUS 13:54: increase [place] SOLOSTAR 54 by 2 units Medic al U-100 every 2 Branch INSULIN) days until 100 unit/mL fbg less (3 mL) 120 ( max injection of 80 units daily) Insulin 0 Yes 74 units Univer s Glargine 2-07 and ity of (LANTUS 13:54: increase [place] SOLOSTAR 54 by 2 units Medic al U-100 every 2 Branch INSULIN) days until 100 unit/mL fbg less (3 mL) 120 ( max injection of 80 units daily) Insulin 0 Yes 74 units Univer s Glargine 2-07 and ity of (LANTUS 13:54: increase [place] SOLOSTAR 54 by 2 units Medic al U-100 every 2 Branch INSULIN) days until 100 unit/mL fbg less (3 mL) 120 ( max injection of 80 units daily) Insulin 0 Yes 74 units Univer s Glargine 2-07 and ity of (LANTUS 13:54: increase [place] SOLOSTAR 54 by 2 units Medic al U-100 every 2 Branch INSULIN) days until 100 unit/mL fbg less (3 mL) 120 ( max injection of 80 units daily) Insulin 0 Yes 74 units Univer s Glargine 2-07 and ity of (LANTUS 13:54: increase [place] SOLOSTAR 54 by 2 units Medic al U-100 every 2 Branch INSULIN) days until 100 unit/mL fbg less (3 mL) 120 ( max injection of 80 units daily) Insulin 0 Yes 74 units Univer s Glargine 2-07 and ity of (LANTUS 13:54: increase [place] SOLOSTAR 54 by 2 units Medic al U-100 every 2 Branch INSULIN) days until 100 unit/mL fbg less (3 mL) 120 ( max injection of 80 units daily) nirmatrelvi Yes [id number] 3{tbl} Take 3 [facility] r-ritonavir 1-22 tablets by it y of (PAXLOVID, 00:00: mouth in [place] as EUA,) 300 00 the Medical mg (150 mg morning Branch x 2)-100 mg and 3 tablet tablets in the evening. bromphenira 2022-0 Yes [id number] 5mL Take 5 mL [facility] mine-pseudo 1-22 by mouth 3 it y of ephedrine-D 00:00: (three) [place] M (BROMFED 00 times Medical DM) 2-30-10 daily as Bran ch mg/5 mL needed for syrup Cold symptoms. nirmatrelvi 2022-0 Yes [id number] 3{tbl} Take 3 [facility] r-ritonavir 1-22 tablets by it y of (PAXLOVID, 00:00: mouth in [place] as EUA,) 300 00 the Medical mg (150 mg morning Branch x 2)-100 mg and 3 tablet tablets in the evening. bromphenira 2022-0 Yes [id number] 5mL Take 5 mL [facility] mine-pseudo 1-22 by mouth 3 it y of ephedrine-D 00:00: (three) [place] (BROMFED 00 times Medical DM) 2-30-10 daily as Bran ch mg/5 mL needed for syrup Cold symptoms. nirmatrelvi 2022-0 Yes [id number] 3{tbl} Take 3 [facility] r-ritonavir 1-22 tablets by it y of (PAXLOVID, 00:00: mouth in [place] as EUA,) 300 00 the Medical mg (150 mg morning Branch x 2)-100 mg and 3 tablet tablets in the evening. bromphenira 2022-0 Yes [id number] 5mL Take 5 mL [facility] mine-pseudo 1-22 by mouth 3 it y of ephedrine-D 00:00: (three) [place] (BROMFED 00 times Medical DM) 2-30-10 daily as Bran ch mg/5 mL needed for syrup Cold symptoms. nirmatrelvi 2022-0 Yes [id number] 3{tbl} Take 3 [facility] r-ritonavir 1-22 tablets by it y of (PAXLOVID, 00:00: mouth in [place] as EUA,) 300 00 the Medical mg (150 mg morning Branch x 2)-100 mg and 3 tablet tablets in the evening. bromphenira 3-0 Yes [id number] 5mL Take 5 mL [facility] mine-pseudo 1-22 by mouth 3 it y of ephedrine-D 00:00: (three) [place] (BROMFED 00 times Medical DM) 2-30-10 daily as Bran ch mg/5 mL needed for syrup Cold symptoms. nirmatrelvi 2022-0 Yes [id number] 3{tbl} Take 3 [facility] r-ritonavir 1-22 tablets by it y of (PAXLOVID, 00:00: mouth in [place] as EUA,) 300 00 the Medical mg (150 mg morning Branch x 2)-100 mg and 3 tablet tablets in the evening. bromphenira 3-0 Yes [id number] 5mL Take 5 mL [facility] mine-pseudo 1-22 by mouth 3 it y of ephedrine-D 00:00: (three) [place] (BROMFED 00 times Medical DM) 2-30-10 daily as Bran ch mg/5 mL needed for syrup Cold symptoms. nirmatrelvi 2022-0 Yes [id number] 3{tbl} Take 3 [facility] r-ritonavir 1-22 tablets by it y of (PAXLOVID, 00:00: mouth in [place] as EUA,) 300 00 the Medical mg (150 mg morning Branch x 2)-100 mg and 3 tablet tablets in the evening. bromphenira 3-0 Yes [id number] 5mL Take 5 mL [facility] mine-pseudo 1-22 by mouth 3 it y of ephedrine-D 00:00: (three) [place] (BROMFED 00 times Medical DM) 2-30-10 daily as Bran ch mg/5 mL needed for syrup Cold symptoms. nirmatrelvi 3-0 Yes [id number] 3{tbl} Take 3 [facility] r-ritonavir 1-22 tablets by it y of (PAXLOVID, 00:00: mouth in [place] as EUA,) 300 00 the Medical mg (150 mg morning Branch x 2)-100 mg and 3 tablet tablets in the evening. bromphenira 3-0 Yes [id number] 5mL Take 5 mL [facility] mine-pseudo 1-22 by mouth 3 it y of ephedrine-D 00:00: (three) [place] (BROMFED 00 times Medical DM) 2-30-10 daily as Bran ch mg/5 mL needed for syrup Cold symptoms. nirmatrelvi 2022-0 Yes [id number] 3{tbl} Take 3 [facility] r-ritonavir 1-22 tablets by it y of (PAXLOVID, 00:00: mouth in [place] as EUA,) 300 00 the Medical mg (150 mg morning Branch x 2)-100 mg and 3 tablet tablets in the evening. bromphenira 2022-0 Yes [id number] 5mL Take 5 mL [facility] mine-pseudo 1-22 by mouth 3 it y of ephedrine-D 00:00: (three) [place] M (BROMFED 00 times Medical DM) 2-30-10 daily as Bran ch mg/5 mL needed for syrup Cold symptoms. nirmatrelvi 2022-0 Yes [id number] 3{tbl} Take 3 [facility] r-ritonavir 1-22 tablets by it y of (PAXLOVID, 00:00: mouth in [place] as EUA,) 300 00 the Medical mg (150 mg morning Branch x 2)-100 mg and 3 tablet tablets in the evening. bromphenira 2022-0 Yes [id number] 5mL Take 5 mL [facility] mine-pseudo 1-22 by mouth 3 it y of ephedrine-D 00:00: (three) [place] (BROMFED 00 times Medical DM) 2-30-10 daily as Bran ch mg/5 mL needed for syrup Cold symptoms. nirmatrelvi 2022-0 Yes [id number] 3{tbl} Take 3 [facility] r-ritonavir 1-22 tablets by it y of (PAXLOVID, 00:00: mouth in [place] EUA,) 300 00 the Medical mg (150 mg morning Branch x 2)-100 mg and 3 tablet tablets in the evening. bromphenira 2022-0 Yes [id number] 5mL Take 5 mL [facility] mine-pseudo 1-22 by mouth 3 it y of ephedrine-D 00:00: (three) [place] M (BROMFED 00 times Medical DM) 2-30-10 daily as Bran ch mg/5 mL needed for syrup Cold symptoms. nirmatrelvi 2022-0 Yes [id number] 3{tbl} Take 3 [facility] r-ritonavir 1-22 tablets by it y of (PAXLOVID, 00:00: mouth in [place] as EUA,) 300 00 the Medical mg (150 mg morning Branch x 2)-100 mg and 3 tablet tablets in the evening. bromphenira 2022-0 Yes [id number] 5mL Take 5 mL [facility] mine-pseudo 1-22 by mouth 3 it y of ephedrine-D 00:00: (three) [place] M (BROMFED 00 times Medical DM) 2-30-10 daily as Bran ch mg/5 mL needed for syrup Cold symptoms. nirmatrelvi 2022-0 Yes [id number] 3{tbl} Take 3 [facility] r-ritonavir 1-22 tablets by it y of (PAXLOVID, 00:00: mouth in [place] as EUA,) 300 00 the Medical mg (150 mg morning Branch x 2)-100 mg and 3 tablet tablets in the evening. bromphenira 2022-0 Yes [id number] 5mL Take 5 mL [facility] mine-pseudo 1-22 by mouth 3 it y of ephedrine-D 00:00: (three) [place] M (BROMFED 00 times Medical DM) 2-30-10 daily as Bran ch mg/5 mL needed for syrup Cold symptoms. nirmatrelvi 2022-0 Yes [id number] 3{tbl} Take 3 [facility] r-ritonavir 1-22 tablets by it y of (PAXLOVID, 00:00: mouth in [place] as EUA,) 300 00 the Medical mg (150 mg morning Branch x 2)-100 mg and 3 tablet tablets in the evening. bromphenira 2022-0 Yes [id number] 5mL Take 5 mL [facility] mine-pseudo 1-22 by mouth 3 it y of ephedrine-D 00:00: (three) [place] (BROMFED 00 times Medical DM) 2-30-10 daily as Bran ch mg/5 mL needed for syrup Cold symptoms. nirmatrelvi 2022-0 Yes [id number] 3{tbl} Take 3 [facility] r-ritonavir 1-22 tablets by it y of (PAXLOVID, 00:00: mouth in [place] as EUA,) 300 00 the Medical mg (150 mg morning Branch x 2)-100 mg and 3 tablet tablets in the evening. bromphenira 2022-0 Yes [id number] 5mL Take 5 mL [facility] mine-pseudo 1-22 by mouth 3 it y of ephedrine-D 00:00: (three) [place] M (BROMFED 00 times Medical DM) 2-30-10 daily as Bran ch mg/5 mL needed for syrup Cold symptoms. nirmatrelvi 0 Yes [id number] 3{tbl} Take 3 [facility] r-ritonavir 1-22 tablets by it y of (PAXLOVID, 00:00: mouth in [place] as EUA,) 300 00 the Medical mg (150 mg morning Branch x 2)-100 mg and 3 tablet tablets in the evening. bromphenira 2022-0 Yes [id number] 5mL Take 5 mL [facility] mine-pseudo 1-22 by mouth 3 it y of ephedrine-D 00:00: (three) [place] M (BROMFED 00 times Medical DM) 2-30-10 daily as [place] ch mg/5 mL needed for syrup Cold symptoms. nirmatrelvi 2022- No [id number] 3{tbl} Take 3 [facility] r-ritonavir 1-22 04-14 tablets by i ty of (PAXLOVID, 00:00: 00:00 mouth in [place] EUA,) 300 00 :00 the Medical mg (150 mg morning Branch x 2)-100 mg and 3 tablet tablets in the evening. bromphenira 2022- No [id number] 5mL Take 5 mL [facility] mine-pseudo 1-22 -14 by mouth 3 i ty of ephedrine-D 00:00: 00:00 (three) [place] M (BROMFED 00 :00 times Medical DM) 2-30-10 daily as Bran ch mg/5 mL needed for syrup Cold symptoms. nirmatrelvi 2022- No [id number] 3{tbl} Take 3 [facility] r-ritonavir 1-22 04-14 tablets by i ty of (PAXLOVID, 00:00: 00:00 mouth in [place] EUA,) 300 00 :00 the Medical mg (150 mg morning Branch x 2)-100 mg and 3 tablet tablets in the evening. bromphenira 2022- No [id number] 5mL Take 5 mL [facility] mine-pseudo -22 04-14 by mouth 3 i ty of ephedrine-D 00:00: 00:00 (three) Reuben Douglas (BROMFED 00 :00 times Medical DM) 2-30-10 daily as [place] ch mg/5 mL needed for syrup Cold symptoms. topiramate 2022-0 Yes [id number] 50mg Take 1 [facility] 50 mg 1-17 tablet by ity of tablet 00:00: mouth in [place] 00 the Medical morning. Branch topiramate 2022-0 Yes [id number] 50mg Take 1 [facility] 50 mg 1-17 tablet by ity of tablet 00:00: mouth in [place] 00 the Medical morning. Branch topiramate 2022-0 Yes [id number] 50mg Take 1 [facility] 50 mg 1-17 tablet by ity of tablet 00:00: mouth in [place] 00 the Medical morning. Branch topiramate 2022-0 Yes [id number] 50mg Take 1 [facility] 50 mg 1-17 tablet by ity of tablet 00:00: mouth in [place] 00 the Medical morning. Branch topiramate 2022-0 Yes [id number] 50mg Take 1 [facility] 50 mg 1-17 tablet by ity of tablet 00:00: mouth in [place] 00 the Medical morning. Branch topiramate 2022-0 Yes [id number] 50mg Take 1 [facility] 50 mg 1-17 tablet by ity of tablet 00:00: mouth in [place] 00 the Medical morning. Branch topiramate 2022-0 Yes [id number] 50mg Take 1 [facility] 50 mg 1-17 tablet by ity of tablet 00:00: mouth in [place] 00 the Medical morning. Branch topiramate 2022-0 Yes [id number] 50mg Take 1 [facility] 50 mg 1-17 tablet by ity of tablet 00:00: mouth in [place] 00 the Medical morning. Branch topiramate 2022-0 Yes [id number] 50mg Take 1 [facility] 50 mg 1-17 tablet by ity of tablet 00:00: mouth in [place] 00 the Medical morning. Branch topiramate 2022-0 2022- No [id number] 50mg Take 1 [facility] 50 mg 1-17 02-20 tablet by ity of tablet 00:00: 00:00 mouth in [place] 00 :00 the Medical morning. Branch topiramate 2022-0 3- No [id number] 50mg Take 1 [facility] 50 mg 1-17 02-20 tablet by ity of tablet 00:00: 00:00 mouth in [place] 00 :00 the Medical morning. Branch topiramate 3-0 3- No [id number] 50mg Take 1 [facility] 50 mg 1-17 02-20 tablet by ity of tablet 00:00: 00:00 mouth in [place] 00 :00 the Medical morning. Branch topiramate 2022-0 3- No [id number] 50mg Take 1 [facility] 50 mg 1-17 02-20 tablet by ity of tablet 00:00: 00:00 mouth in [place] 00 :00 the Medical morning. Branch topiramate 2022-0 3- No [id number] 50mg Take 1 [facility] 50 mg 1-17 02-20 tablet by ity of tablet 00:00: 00:00 mouth in [place] 00 :00 the Medical morning. Branch topiramate 2022-0 3- No [id number] 50mg Take 1 [facility] 50 mg 1-17 02-20 tablet by ity of tablet 00:00: 00:00 mouth in [place] 00 :00 the Medical morning. Branch liraglutide 2022-0 Yes [id number] Take 0.6mg [facility] 0.6 mg/0.1 1-14 daily for ity of mL (18 mg/3 00:00: 2 weeks, [place] mL) 00 then Medical injection increase Branch to 1.2mg daily if tolerate , can further increase to 1.8mg daily in 2 weeks if tolerate liraglutide 2022-0 Yes [id number] Take 0.6mg [facility] 0.6 mg/0.1 1-14 daily for ity of mL (18 mg/3 00:00: 2 weeks, [place] mL) 00 then Medical injection increase Branch to 1.2mg daily if tolerate , can further increase to 1.8mg daily in 2 weeks if tolerate liraglutide 2022-0 Yes [id number] Take 0.6mg [facility] 0.6 mg/0.1 1-14 daily for ity of mL (18 mg/3 00:00: 2 weeks, [place] mL) 00 then Medical injection increase Branch to 1.2mg daily if tolerate , can further increase to 1.8mg daily in 2 weeks if tolerate liraglutide 2022-0 Yes [id number] Take 0.6mg [facility] 0.6 mg/0.1 1-14 daily for ity of mL (18 mg/3 00:00: 2 weeks, [place] mL) 00 then Medical injection increase Branch to 1.2mg daily if tolerate , can further increase to 1.8mg daily in 2 weeks if tolerate liraglutide 2022- Yes [id number] Take 0.6mg [facility] 0.6 mg/0.1 1-14 daily for ity of mL (18 mg/3 00:00: 2 weeks, [place] mL) 00 then Medical injection increase Branch to 1.2mg daily if tolerate , can further increase to 1.8mg daily in 2 weeks if tolerate liraglutide Yes [id number] Take 0.6mg [facility] 0.6 mg/0.1 1-14 daily for ity of mL (18 mg/3 00:00: 2 weeks, [place] mL) 00 then Medical injection increase Branch to 1.2mg daily if tolerate , can further increase to 1.8mg daily in 2 weeks if tolerate liraglutide Yes [id number] Take 0.6mg [facility] 0.6 mg/0.1 1-14 daily for ity of mL (18 mg/3 00:00: 2 weeks, [place] mL) 00 then Medical injection increase Branch to 1.2mg daily if tolerate , can further increase to 1.8mg daily in 2 weeks if tolerate liraglutide Yes [id number] Take 0.6mg [facility] 0.6 mg/0.1 1-14 daily for ity of mL (18 mg/3 00:00: 2 weeks, [place] mL) 00 then Medical injection increase Branch to 1.2mg daily if tolerate , can further increase to 1.8mg daily in 2 weeks if tolerate liraglutide Yes [id number] Take 0.6mg [facility] 0.6 mg/0.1 1-14 daily for ity of mL (18 mg/3 00:00: 2 weeks, [place] mL) 00 then Medical injection increase Branch to 1.2mg daily if tolerate , can further increase to 1.8mg daily in 2 weeks if tolerate liraglutide 2022- Yes [id number] Take 0.6mg [facility] 0.6 mg/0.1 1-14 daily for ity of mL (18 mg/3 00:00: 2 weeks, [place] mL) 00 then Medical injection increase Branch to 1.2mg daily if tolerate , can further increase to 1.8mg daily in 2 weeks if tolerate liraglutide 2022-0 Yes [id number] Take 0.6mg [facility] 0.6 mg/0.1 1-14 daily for ity of mL (18 mg/3 00:00: 2 weeks, [place] mL) 00 then Medical injection increase Branch to 1.2mg daily if tolerate , can further increase to 1.8mg daily in 2 weeks if tolerate liraglutide 2022- Yes [id number] Take 0.6mg [facility] 0.6 mg/0.1 1-14 daily for ity of mL (18 mg/3 00:00: 2 weeks, [place] mL) 00 then Medical injection increase Branch to 1.2mg daily if tolerate , can further increase to 1.8mg daily in 2 weeks if tolerate liraglutide 2022- Yes [id number] Take 0.6mg [facility] 0.6 mg/0.1 1-14 daily for ity of mL (18 mg/3 00:00: 2 weeks, [place] mL) 00 then Medical injection increase Branch to 1.2mg daily if tolerate , can further increase to 1.8mg daily in 2 weeks if tolerate liraglutide 2022- Yes [id number] Take 0.6mg [facility] 0.6 mg/0.1 1-14 daily for ity of mL (18 mg/3 00:00: 2 weeks, [place] mL) 00 then Medical injection increase Branch to 1.2mg daily if tolerate , can further increase to 1.8mg daily in 2 weeks if tolerate liraglutide 2022-0 Yes [id number] Take 0.6mg [facility] 0.6 mg/0.1 1-14 daily for ity of mL (18 mg/3 00:00: 2 weeks, [place] mL) 00 then Medical injection increase Branch to 1.2mg daily if tolerate , can further increase to 1.8mg daily in 2 weeks if tolerate liraglutide 2022-0 Yes [id number] Take 0.6mg [facility] 0.6 mg/0.1 1-14 daily for ity of mL (18 mg/3 00:00: 2 weeks, [place] mL) 00 then Medical injection increase Branch to 1.2mg daily if tolerate , can further increase to 1.8mg daily in 2 weeks if tolerate liraglutide Yes [id number] Take 0.6mg [facility] 0.6 mg/0.1 1-14 daily for ity of mL (18 mg/3 00:00: 2 weeks, [place] mL) 00 then Medical injection increase Branch to 1.2mg daily if tolerate , can further increase to 1.8mg daily in 2 weeks if tolerate liraglutide Yes [id number] Take 0.6mg [facility] 0.6 mg/0.1 1-14 daily for ity of mL (18 mg/3 00:00: 2 weeks, [place] mL) 00 then Medical injection increase Branch to 1.2mg daily if tolerate , can further increase to 1.8mg daily in 2 weeks if tolerate liraglutide Yes [id number] Take 0.6mg [facility] 0.6 mg/0.1 1-14 daily for ity of mL (18 mg/3 00:00: 2 weeks, [place] mL) 00 then Medical injection increase Branch to 1.2mg daily if tolerate , can further increase to 1.8mg daily in 2 weeks if tolerate liraglutide Yes [id number] Take 0.6mg [facility] 0.6 mg/0.1 1-14 daily for ity of mL (18 mg/3 00:00: 2 weeks, [place] mL) 00 then Medical injection increase Branch to 1.2mg daily if tolerate , can further increase to 1.8mg daily in 2 weeks if tolerate liraglutide 3- No [id number] Take 0.6mg [facility] 0.6 mg/0.1 1-14 04-14 daily for ity of mL (18 mg/3 00:00: 00:00 2 weeks, [place] mL) 00 :00 then Medical injection increase Branch to 1.2mg daily if tolerate , can further increase to 1.8mg daily in 2 weeks if tolerate liraglutide 2022-3- No [id number] Take 0.6mg [facility] 0.6 mg/0.1 1-14 04-14 daily for ity of mL (18 mg/3 00:00: 00:00 2 weeks, [place] mL) 00 :00 then Medical injection increase Branch to 1.2mg daily if tolerate , can further increase to 1.8mg daily in 2 weeks if tolerate ketorolac 2022- No 30mg 30 mg, [facility] rs (TORADOL) 02-20 Intramuscu ity of injection 01:00: 00:30 lar, ONCE, [place] 30 mg 00 :00 1 dose, On Medical Wed Branch 02/19/22 at 1900, Routine acetaminoph 2022- No 1000mg 1,000 mg, [facility] en 02-20 Oral, ity of (TYLENOL) 01:00: 00:30 ONCE, 1 [place] tablet 00 :00 dose, On Medical 1,000 mg Wed Branch 02/19/22 at 1900, NELL diphenhydrA 2022- No 25mg 25 mg, Uni vers MINE 02-20 Intramuscu ity of (BENADRYL) 00:30: 00:30 lar, ONCE, [place] injection 00 :00 1 dose, On Medi jorge a 25 mg Wed Branch 02/19/22 at 1830, STAT metoclopram 2022- No 10mg 10 mg, Uni vers karely HCl 02-20 Intramuscu ity o f (REGLAN) 00:30: 00:30 lar, ONCE, [place] injection 00 :00 1 dose, On Medi jorge a 10 mg Wed Branch 02/19/22 at 1830, NELL butalbital- Yes [id number] 1{capsu Take 1 [facility] aspirin-caf 1-11 le} capsule by it y of feine 00:00: mouth [place] (FIORINAL) 00 every 6 Medica l 50-325-40 (six) Branch mg per hours as capsule needed for Pain. butalbital- Yes [id number] 1{capsu Take 1 [facility] aspirin-caf 1-11 le} capsule by it y of feine 00:00: mouth [place] (FIORINAL) 00 every 6 Medica l 50-325-40 (six) Branch mg per hours as capsule needed for Pain. butalbital- Yes [id number] 1{capsu Take 1 [facility] aspirin-caf 1-11 le} capsule by it y of feine 00:00: mouth [place] (FIORINAL) 00 every 6 Medica l 50-325-40 (six) Branch mg per hours as capsule needed for Pain. butalbital- 2022- Yes [id number] 1{capsu Take 1 [facility] aspirin-caf 1-11 le} capsule by it y of feine 00:00: mouth [place] (FIORINAL) 00 every 6 Medica l 50-325-40 (six) Branch mg per hours as capsule needed for Pain. butalbital- Yes [id number] 1{capsu Take 1 [facility] aspirin-caf 1-11 le} capsule by it y of feine 00:00: mouth [place] (FIORINAL) 00 every 6 Medica l 50-325-40 (six) Branch mg per hours as capsule needed for Pain. butalbital- Yes [id number] 1{capsu Take 1 [facility] aspirin-caf 1-11 le} capsule by it y of feine 00:00: mouth [place] (FIORINAL) 00 every 6 Medica l 50-325-40 (six) Branch mg per hours as capsule needed for Pain. butalbital- Yes [id number] 1{capsu Take 1 [facility] aspirin-caf 1-11 le} capsule by it y of feine 00:00: mouth [place] (FIORINAL) 00 every 6 Medica l 50-325-40 (six) Branch mg per hours as capsule needed for Pain. butalbital- Yes [id number] 1{capsu Take 1 [facility] aspirin-caf 1-11 le} capsule by it y of feine 00:00: mouth [place] (FIORINAL) 00 every 6 Medica l 50-325-40 (six) Branch mg per hours as capsule needed for Pain. butalbital- 2022- Yes [id number] 1{capsu Take 1 [facility] aspirin-caf 1-11 le} capsule by it y of feine 00:00: mouth [place] (FIORINAL) 00 every 6 Medica l 50-325-40 (six) Branch mg per hours as capsule needed for Pain. butalbital- Yes [id number] 1{capsu Take 1 [facility] aspirin-caf 1-11 le} capsule by it y of feine 00:00: mouth [place] (FIORINAL) 00 every 6 Medica l 50-325-40 (six) Branch mg per hours as capsule needed for Pain. butalbital- Yes [id number] 1{capsu Take 1 [facility] aspirin-caf 1-11 le} capsule by it y of feine 00:00: mouth [place] (FIORINAL) 00 every 6 Medica l 50-325-40 (six) Branch mg per hours as capsule needed for Pain. butalbital- Yes [id number] 1{capsu Take 1 [facility] aspirin-caf 1-11 le} capsule by it y of feine 00:00: mouth [place] (FIORINAL) 00 every 6 Medica l 50-325-40 (six) Branch mg per hours as capsule needed for Pain. butalbital- Yes [id number] 1{capsu Take 1 [facility] aspirin-caf 1-11 le} capsule by it y of feine 00:00: mouth [place] (FIORINAL) 00 every 6 Medica l 50-325-40 (six) Branch mg per hours as capsule needed for Pain. butalbital- Yes [id number] 1{capsu Take 1 [facility] aspirin-caf 1-11 le} capsule by it y of feine 00:00: mouth [place] (FIORINAL) 00 every 6 Medica l 50-325-40 (six) Branch mg per hours as capsule needed for Pain. butalbital- Yes [id number] 1{capsu Take 1 [facility] aspirin-caf 1-11 le} capsule by it y of feine 00:00: mouth [place] (FIORINAL) 00 every 6 Medica l 50-325-40 (six) Branch mg per hours as capsule needed for Pain. butalbital- Yes [id number] 1{capsu Take 1 [facility] aspirin-caf 1-11 le} capsule by it y of feine 00:00: mouth [place] (FIORINAL) 00 every 6 Medica l 50-325-40 (six) Branch mg per hours as capsule needed for Pain. butalbital- Yes [id number] 1{capsu Take 1 [facility] aspirin-caf 1-11 le} capsule by it y of feine 00:00: mouth [place] (FIORINAL) 00 every 6 Medica l 50-325-40 (six) Branch mg per hours as capsule needed for Pain. butalbital- Yes [id number] 1{capsu Take 1 [facility] aspirin-caf 1-11 le} capsule by it y of feine 00:00: mouth [place] (FIORINAL) 00 every 6 Medica l 50-325-40 (six) Branch mg per hours as capsule needed for Pain. butalbital- Yes [id number] 1{capsu Take 1 [facility] aspirin-caf 1-11 le} capsule by it y of feine 00:00: mouth [place] (FIORINAL) 00 every 6 Medica l 50-325-40 (six) Branch mg per hours as capsule needed for Pain. butalbital- Yes [id number] 1{capsu Take 1 [facility] aspirin-caf 1-11 le} capsule by it y of feine 00:00: mouth [place] (FIORINAL) 00 every 6 Medica l 50-325-40 (six) Branch mg per hours as capsule needed for Pain. butalbital- Yes [id number] 1{capsu Take 1 [facility] aspirin-caf 1-11 le} capsule by it y of feine 00:00: mouth [place] (FIORINAL) 00 every 6 Medica l 50-325-40 (six) Branch mg per hours as capsule needed for Pain. butalbital- Yes [id number] 1{capsu Take 1 [facility] aspirin-caf 1-11 le} capsule by it y of feine 00:00: mouth [place] (FIORINAL) 00 every 6 Medica l 50-325-40 (six) Branch mg per hours as capsule needed for Pain. butalbital- Yes [id number] 1{capsu Take 1 [facility] aspirin-caf 1-11 le} capsule by it y of feine 00:00: mouth [place] (FIORINAL) 00 every 6 Medica l 50-325-40 (six) Branch mg per hours as capsule needed for Pain. butalbital- Yes [id number] 1{capsu Take 1 [facility] aspirin-caf 1-11 le} capsule by it y of feine 00:00: mouth [place] (FIORINAL) 00 every 6 Medica l 50-325-40 (six) Branch mg per hours as capsule needed for Pain. butalbital- Yes [id number] 1{capsu Take 1 [facility] aspirin-caf 1-11 le} capsule by it y of feine 00:00: mouth [place] (FIORINAL) 00 every 6 Medica l 50-325-40 (six) Branch mg per hours as capsule needed for Pain. butalbital- Yes [id number] 1{capsu Take 1 [facility] aspirin-caf 1-11 le} capsule by it y of feine 00:00: mouth [place] (FIORINAL) 00 every 6 Medica l 50-325-40 (six) Branch mg per hours as capsule needed for Pain. butalbital- Yes [id number] 1{capsu Take 1 [facility] aspirin-caf 1-11 le} capsule by it y of feine 00:00: mouth [place] (FIORINAL) 00 every 6 Medica l 50-325-40 (six) Branch mg per hours as capsule needed for Pain. butalbital- Yes [id number] 1{capsu Take 1 [facility] aspirin-caf 1-11 le} capsule by it y of feine 00:00: mouth [place] (FIORINAL) 00 every 6 Medica l 50-325-40 (six) Branch mg per hours as capsule needed for Pain. butalbital- Yes [id number] 1{capsu Take 1 [facility] aspirin-caf 1-11 le} capsule by it y of feine 00:00: mouth [place] (FIORINAL) 00 every 6 Medica l 50-325-40 (six) Branch mg per hours as capsule needed for Pain. butalbital- Yes [id number] 1{capsu Take 1 [facility] aspirin-caf 1-11 le} capsule by it y of feine 00:00: mouth [place] (FIORINAL) 00 every 6 Medica l 50-325-40 (six) Branch mg per hours as capsule needed for Pain. butalbital- Yes [id number] 1{capsu Take 1 [facility] aspirin-caf 1-11 le} capsule by it y of feine 00:00: mouth [place] (FIORINAL) 00 every 6 Medica l 50-325-40 (six) Branch mg per hours as capsule needed for Pain. butalbital- 3-0 Yes [id number] 1{capsu Take 1 [facility] aspirin-caf 1-11 le} capsule by it y of feine 00:00: mouth [place] (FIORINAL) 00 every 6 Medica l 50-325-40 (six) Branch mg per hours as capsule needed for Pain. butalbital- 2022-0 Yes [id number] 1{capsu Take 1 [facility] aspirin-caf 1-11 le} capsule by it y of feine 00:00: mouth [place] (FIORINAL) 00 every 6 Medica l 50-325-40 (six) Branch mg per hours as capsule needed for Pain. butalbital- 2022-0 Yes [id number] 1{capsu Take 1 [facility] aspirin-caf 1-11 le} capsule by it y of feine 00:00: mouth [place] (FIORINAL) 00 every 6 Medica l 50-325-40 (six) Branch mg per hours as capsule needed for Pain. butalbital- 2022-0 Yes [id number] 1{capsu Take 1 [facility] aspirin-caf 1-11 le} capsule by it y of feine 00:00: mouth [place] (FIORINAL) 00 every 6 Medica l 50-325-40 (six) Branch mg per hours as capsule needed for Pain. sumatriptan 2022-0 Yes [id number] 100mg Take 1 [facility] 100 mg 1-10 tablet by ity of tablet 00:00: mouth as [place] 00 needed for Medical Migraine. Branch Daily prn sumatriptan 3-0 Yes [id number] 100mg Take 1 [facility] 100 mg 1-10 tablet by ity of tablet 00:00: mouth as [place] 00 needed for Medical Migraine. Branch Daily prn topiramate 2023-0 Yes [id number] 25mg Take 1 [facility] 25 mg 1-10 tablet by ity of tablet 00:00: mouth in [place] 00 the Medical morning Branch and 1 tablet in the evening. sumatriptan 3-0 Yes [id number] 100mg Take 1 [facility] 100 mg 1-10 tablet by ity of tablet 00:00: mouth as [place] 00 needed for Medical Migraine. Branch Daily prn topiramate 3-0 Yes [id number] 25mg Take 1 [facility] 25 mg 1-10 tablet by ity of tablet 00:00: mouth in [place] 00 the Medical morning Branch and 1 tablet in the evening. sumatriptan 2023-0 Yes [id number] 100mg Take 1 [facility] 100 mg 1-10 tablet by ity of tablet 00:00: mouth as [place] 00 needed for Medical Migraine. Branch Daily prn topiramate 2023-0 Yes [id number] 25mg Take 1 [facility] 25 mg 1-10 tablet by ity of tablet 00:00: mouth in [place] 00 the Medical morning Branch and 1 tablet in the evening. sumatriptan 2023-0 Yes [id number] 100mg Take 1 [facility] 100 mg 1-10 tablet by ity of tablet 00:00: mouth as [place] 00 needed for Medical Migraine. Branch Daily prn sumatriptan 2023-0 Yes [id number] 100mg Take 1 [facility] 100 mg 1-10 tablet by ity of tablet 00:00: mouth as [place] 00 needed for Medical Migraine. Branch Daily prn sumatriptan 2023-0 Yes [id number] 100mg Take 1 [facility] 100 mg 1-10 tablet by ity of tablet 00:00: mouth as [place] 00 needed for Medical Migraine. Branch Daily prn sumatriptan 2023-0 Yes [id number] 100mg Take 1 [facility] 100 mg 1-10 tablet by ity of tablet 00:00: mouth as [place] 00 needed for Medical Migraine. Branch Daily prn sumatriptan 2023-0 Yes [id number] 100mg Take 1 [facility] 100 mg 1-10 tablet by ity of tablet 00:00: mouth as [place] 00 needed for Medical Migraine. Branch Daily prn sumatriptan 2023-0 Yes [id number] 100mg Take 1 [facility] 100 mg 1-10 tablet by ity of tablet 00:00: mouth as [place] 00 needed for Medical Migraine. Branch Daily prn sumatriptan 2023-0 Yes [id number] 100mg Take 1 [facility] 100 mg 1-10 tablet by ity of tablet 00:00: mouth as [place] 00 needed for Medical Migraine. Branch Daily prn sumatriptan 2023-0 Yes [id number] 100mg Take 1 [facility] 100 mg 1-10 tablet by ity of tablet 00:00: mouth as [place] 00 needed for Medical Migraine. Branch Daily prn sumatriptan 2023-0 Yes [id number] 100mg Take 1 [facility] 100 mg 1-10 tablet by ity of tablet 00:00: mouth as [place] 00 needed for Medical Migraine. Branch Daily prn sumatriptan 2023-0 Yes [id number] 100mg Take 1 [facility] 100 mg 1-10 tablet by ity of tablet 00:00: mouth as [place] 00 needed for Medical Migraine. Branch Daily prn sumatriptan 2023-0 Yes [id number] 100mg Take 1 [facility] 100 mg 1-10 tablet by ity of tablet 00:00: mouth as [place] 00 needed for Medical Migraine. Branch Daily prn sumatriptan 2023-0 Yes [id number] 100mg Take 1 [facility] 100 mg 1-10 tablet by ity of tablet 00:00: mouth as [place] 00 needed for Medical Migraine. Branch Daily prn sumatriptan 2023-0 Yes [id number] 100mg Take 1 [facility] 100 mg 1-10 tablet by ity of tablet 00:00: mouth as [place] 00 needed for Medical Migraine. Branch Daily prn sumatriptan 2023-0 Yes [id number] 100mg Take 1 [facility] 100 mg 1-10 tablet by ity of tablet 00:00: mouth as [place] 00 needed for Medical Migraine. Branch Daily prn sumatriptan 2023-0 Yes [id number] 100mg Take 1 [facility] 100 mg 1-10 tablet by ity of tablet 00:00: mouth as [place] 00 needed for Medical Migraine. Branch Daily prn sumatriptan 2023-0 Yes [id number] 100mg Take 1 [facility] 100 mg 1-10 tablet by ity of tablet 00:00: mouth as [place] 00 needed for Medical Migraine. Branch Daily prn sumatriptan 2023-0 Yes [id number] 100mg Take 1 [facility] 100 mg 1-10 tablet by ity of tablet 00:00: mouth as [place] 00 needed for Medical Migraine. Branch Daily prn sumatriptan 2023-0 Yes [id number] 100mg Take 1 [facility] 100 mg 1-10 tablet by ity of tablet 00:00: mouth as [place] 00 needed for Medical Migraine. Branch Daily prn sumatriptan 2023-0 Yes [id number] 100mg Take 1 [facility] 100 mg 1-10 tablet by ity of tablet 00:00: mouth as [place] 00 needed for Medical Migraine. Branch Daily prn sumatriptan 2023-0 Yes [id number] 100mg Take 1 [facility] 100 mg 1-10 tablet by ity of tablet 00:00: mouth as [place] 00 needed for Medical Migraine. Branch Daily prn sumatriptan 2023-0 Yes [id number] 100mg Take 1 [facility] 100 mg 1-10 tablet by ity of tablet 00:00: mouth as [place] 00 needed for Medical Migraine. Branch Daily prn sumatriptan 2023-0 Yes [id number] 100mg Take 1 [facility] 100 mg 1-10 tablet by ity of tablet 00:00: mouth as [place] 00 needed for Medical Migraine. Branch Daily prn sumatriptan 2023-0 Yes [id number] 100mg Take 1 [facility] 100 mg 1-10 tablet by ity of tablet 00:00: mouth as [place] 00 needed for Medical Migraine. Branch Daily prn sumatriptan 2023-0 Yes [id number] 100mg Take 1 [facility] 100 mg 1-10 tablet by ity of tablet 00:00: mouth as [place] 00 needed for Medical Migraine. Branch Daily prn sumatriptan 2023-0 Yes [id number] 100mg Take 1 [facility] 100 mg 1-10 tablet by ity of tablet 00:00: mouth as [place] 00 needed for Medical Migraine. Branch Daily prn sumatriptan 2023-0 Yes [id number] 100mg Take 1 [facility] 100 mg 1-10 tablet by ity of tablet 00:00: mouth as [place] 00 needed for Medical Migraine. Branch Daily prn sumatriptan 2023-0 Yes [id number] 100mg Take 1 [facility] 100 mg 1-10 tablet by ity of tablet 00:00: mouth as [place] 00 needed for Medical Migraine. Branch Daily prn sumatriptan 2023-0 Yes [id number] 100mg Take 1 [facility] 100 mg 1-10 tablet by ity of tablet 00:00: mouth as [place] 00 needed for Medical Migraine. Branch Daily prn sumatriptan 2023-0 Yes [id number] 100mg Take 1 [facility] 100 mg 1-10 tablet by ity of tablet 00:00: mouth as [place] 00 needed for Medical Migraine. Branch Daily prn sumatriptan 2023-0 Yes [id number] 100mg Take 1 [facility] 100 mg 1-10 tablet by ity of tablet 00:00: mouth as [place] 00 needed for Medical Migraine. Branch Daily prn sumatriptan 2023-0 Yes [id number] 100mg Take 1 [facility] 100 mg 1-10 tablet by ity of tablet 00:00: mouth as [place] 00 needed for Medical Migraine. Branch Daily prn sumatriptan 2022-0 Yes [id number] 100mg Take 1 [facility] 100 mg 1-10 tablet by ity of tablet 00:00: mouth as [place] 00 needed for Medical Migraine. Branch Daily prn sumatriptan 2022-0 Yes [id number] 100mg Take 1 [facility] 100 mg 1-10 tablet by ity of tablet 00:00: mouth as [place] 00 needed for Medical Migraine. Branch Daily prn topiramate 2022-0 3- No [id number] 25mg Take 1 [facility] 25 mg 1-10 -17 tablet by ity of tablet 00:00: 00:00 mouth in [place] 00 :00 the Medical morning Branch and 1 tablet in the evening. topiramate 2022-0 2022- No [id number] 25mg Take 1 [facility] 25 mg 1-10 -17 tablet by ity of tablet 00:00: 00:00 mouth in [place] 00 :00 the Medical morning Branch and 1 tablet in the evening. liraglutide 0 Yes [id number] Take 0.6mg [facility] 0.6 mg/0.1 1-03 daily for ity of mL (18 mg/3 00:00: 2 weeks, [place] mL) 00 then Medical injection increase Branch to 1.2mg daily if tolerate , can further increase to 1.8mg daily in 2 weeks if tolerate liraglutide 2022-0 Yes [id number] Take 0.6mg [facility] 0.6 mg/0.1 1-03 daily for ity of mL (18 mg/3 00:00: 2 weeks, [place] mL) 00 then Medical injection increase Branch to 1.2mg daily if tolerate , can further increase to 1.8mg daily in 2 weeks if tolerate liraglutide 2022-0 Yes [id number] Take 0.6mg [facility] 0.6 mg/0.1 1-03 daily for ity of mL (18 mg/3 00:00: 2 weeks, [place] mL) 00 then Medical injection increase Branch to 1.2mg daily if tolerate , can further increase to 1.8mg daily in 2 weeks if tolerate liraglutide 2022-0 Yes [id number] Take 0.6mg [facility] 0.6 mg/0.1 1-03 daily for ity of mL (18 mg/3 00:00: 2 weeks, [place] mL) 00 then Medical injection increase Branch to 1.2mg daily if tolerate , can further increase to 1.8mg daily in 2 weeks if tolerate liraglutide 2022-0 Yes [id number] Take 0.6mg [facility] 0.6 mg/0.1 1-03 daily for ity of mL (18 mg/3 00:00: 2 weeks, [place] mL) 00 then Medical injection increase Branch to 1.2mg daily if tolerate , can further increase to 1.8mg daily in 2 weeks if tolerate liraglutide 2022-0 Yes [id number] Take 0.6mg [facility] 0.6 mg/0.1 1-03 daily for ity of mL (18 mg/3 00:00: 2 weeks, [place] mL) 00 then Medical injection increase Branch to 1.2mg daily if tolerate , can further increase to 1.8mg daily in 2 weeks if tolerate liraglutide 2022-0 Yes [id number] Take 0.6mg [facility] 0.6 mg/0.1 1-03 daily for ity of mL (18 mg/3 00:00: 2 weeks, [place] mL) 00 then Medical injection increase Branch to 1.2mg daily if tolerate , can further increase to 1.8mg daily in 2 weeks if tolerate liraglutide 2022-0 Yes [id number] Take 0.6mg [facility] 0.6 mg/0.1 1-03 daily for ity of mL (18 mg/3 00:00: 2 weeks, [place] mL) 00 then Medical injection increase Branch to 1.2mg daily if tolerate , can further increase to 1.8mg daily in 2 weeks if tolerate liraglutide 2022-0 Yes [id number] Take 0.6mg [facility] 0.6 mg/0.1 1-03 daily for ity of mL (18 mg/3 00:00: 2 weeks, [place] mL) 00 then Medical injection increase Branch to 1.2mg daily if tolerate , can further increase to 1.8mg daily in 2 weeks if tolerate liraglutide 2022-0 Yes [id number] Take 0.6mg [facility] 0.6 mg/0.1 1-03 daily for ity of mL (18 mg/3 00:00: 2 weeks, [place] mL) 00 then Medical injection increase Branch to 1.2mg daily if tolerate , can further increase to 1.8mg daily in 2 weeks if tolerate liraglutide Yes [id number] Take 0.6mg [facility] 0.6 mg/0.1 1-03 daily for ity of mL (18 mg/3 00:00: 2 weeks, [place] mL) 00 then Medical injection increase Branch to 1.2mg daily if tolerate , can further increase to 1.8mg daily in 2 weeks if tolerate liraglutide Yes [id number] Take 0.6mg [facility] 0.6 mg/0.1 1-03 daily for ity of mL (18 mg/3 00:00: 2 weeks, [place] mL) 00 then Medical injection increase Branch to 1.2mg daily if tolerate , can further increase to 1.8mg daily in 2 weeks if tolerate liraglutide 2022- No [id number] Take 0.6mg [facility] 0.6 mg/0.1 1-03 01-14 daily for ity of mL (18 mg/3 00:00: 00:00 2 weeks, [place] mL) 00 :00 then Medical injection increase Branch to 1.2mg daily if tolerate , can further increase to 1.8mg daily in 2 weeks if tolerate ciprofloxac 2021-02 Yes TAKE 1 [facility] ers in HCl 500 2-31 TABLET BY ity of mg tablet 00:00: MOUTH [place] 00 EVERY 12 Medical HOURS FOR Branch 10 DAYS metroNIDAZO 2021-02 Yes TAKE 1 [facility] ers LE 500 mg 2-31 TABLET BY ity o f tablet 00:00: MOUTH [place] 00 EVERY 12 Medical HOURS FOR Branch 7 DAYS ciprofloxac 2021-02 Yes TAKE 1 [facility] ers in HCl 500 2-31 TABLET BY ity of mg tablet 00:00: MOUTH [place] 00 EVERY 12 Medical HOURS FOR Branch 10 DAYS metroNIDAZO 2021-02 Yes TAKE 1 [facility] ers LE 500 mg 2-31 TABLET BY ity o f tablet 00:00: MOUTH [place] 00 EVERY 12 Medical HOURS FOR Branch 7 DAYS ciprofloxac 2021-02 Yes TAKE 1 [facility] ers in HCl 500 2-31 TABLET BY ity of mg tablet 00:00: MOUTH [place] 00 EVERY 12 Medical HOURS FOR Branch 10 DAYS metroNIDAZO 2021-02 Yes TAKE 1 [facility] ers LE 500 mg 2-31 TABLET BY ity o f tablet 00:00: MOUTH [place] 00 EVERY 12 Medical HOURS FOR Branch 7 DAYS ciprofloxac 2021-02 Yes TAKE 1 [facility] ers in HCl 500 2-31 TABLET BY ity of mg tablet 00:00: MOUTH [place] 00 EVERY 12 Medical HOURS FOR Branch 10 DAYS metroNIDAZO 2021-02 Yes TAKE 1 [facility] ers LE 500 mg 2-31 TABLET BY ity o f tablet 00:00: MOUTH [place] 00 EVERY 12 Medical HOURS FOR Branch 7 DAYS ciprofloxac 2021-02 Yes TAKE 1 [facility] ers in HCl 500 2-31 TABLET BY ity of mg tablet 00:00: MOUTH [place] 00 EVERY 12 Medical HOURS FOR Branch 10 DAYS metroNIDAZO 2021-02 Yes TAKE 1 [facility] ers LE 500 mg 2-31 TABLET BY ity o f tablet 00:00: MOUTH [place] 00 EVERY 12 Medical HOURS FOR Branch 7 DAYS ciprofloxac 2021-02 Yes TAKE 1 [facility] ers in HCl 500 2-31 TABLET BY ity of mg tablet 00:00: MOUTH [place] 00 EVERY 12 Medical HOURS FOR Branch 10 DAYS metroNIDAZO 2021-02 Yes TAKE 1 [facility] ers LE 500 mg 2-31 TABLET BY ity o f tablet 00:00: MOUTH [place] 00 EVERY 12 Medical HOURS FOR Branch 7 DAYS ciprofloxac 2021-02 Yes TAKE 1 [facility] ers in HCl 500 2-31 TABLET BY ity of mg tablet 00:00: MOUTH [place] 00 EVERY 12 Medical HOURS FOR Branch 10 DAYS metroNIDAZO 2021-02 Yes TAKE 1 [facility] ers LE 500 mg 2-31 TABLET BY ity o f tablet 00:00: MOUTH [place] 00 EVERY 12 Medical HOURS FOR Branch 7 DAYS ciprofloxac 2021-02 Yes TAKE 1 [facility] ers in HCl 500 2-31 TABLET BY ity of mg tablet 00:00: MOUTH [place] 00 EVERY 12 Medical HOURS FOR Branch 10 DAYS metroNIDAZO 2021-02 Yes TAKE 1 [facility] ers LE 500 mg 2-31 TABLET BY ity o f tablet 00:00: MOUTH [place] 00 EVERY 12 Medical HOURS FOR Branch 7 DAYS ciprofloxac 2021-02 Yes TAKE 1 [facility] ers in HCl 500 2-31 TABLET BY ity of mg tablet 00:00: MOUTH [place] 00 EVERY 12 Medical HOURS FOR Branch 10 DAYS metroNIDAZO 2021-02 Yes TAKE 1 [facility] ers LE 500 mg 2-31 TABLET BY ity o f tablet 00:00: MOUTH [place] 00 EVERY 12 Medical HOURS FOR Branch 7 DAYS ciprofloxac 2021-02 Yes TAKE 1 [facility] ers in HCl 500 2-31 TABLET BY ity of mg tablet 00:00: MOUTH [place] 00 EVERY 12 Medical HOURS FOR Branch 10 DAYS metroNIDAZO 2021-02 Yes TAKE 1 [facility] ers LE 500 mg 2-31 TABLET BY ity o f tablet 00:00: MOUTH [place] 00 EVERY 12 Medical HOURS FOR Branch 7 DAYS ciprofloxac 2021-02 Yes TAKE 1 [facility] ers in HCl 500 2-31 TABLET BY ity of mg tablet 00:00: MOUTH [place] 00 EVERY 12 Medical HOURS FOR Branch 10 DAYS metroNIDAZO 2021-02 Yes TAKE 1 [facility] ers LE 500 mg 2-31 TABLET BY ity o f tablet 00:00: MOUTH [place] 00 EVERY 12 Medical HOURS FOR Branch 7 DAYS ciprofloxac 2021-02 Yes TAKE 1 [facility] ers in HCl 500 2-31 TABLET BY ity of mg tablet 00:00: MOUTH [place] 00 EVERY 12 Medical HOURS FOR Branch 10 DAYS metroNIDAZO 2021-02 Yes TAKE 1 [facility] ers LE 500 mg 2-31 TABLET BY ity o f tablet 00:00: MOUTH [place] 00 EVERY 12 Medical HOURS FOR Branch 7 DAYS ciprofloxac 2021-02 Yes TAKE 1 [facility] ers in HCl 500 2-31 TABLET BY ity of mg tablet 00:00: MOUTH [place] 00 EVERY 12 Medical HOURS FOR Branch 10 DAYS metroNIDAZO 2021-02 Yes TAKE 1 [facility] ers LE 500 mg 2-31 TABLET BY ity o f tablet 00:00: MOUTH [place] 00 EVERY 12 Medical HOURS FOR Branch 7 DAYS ciprofloxac 2021-02 Yes TAKE 1 [facility] ers in HCl 500 2-31 TABLET BY ity of mg tablet 00:00: MOUTH [place] 00 EVERY 12 Medical HOURS FOR Branch 10 DAYS metroNIDAZO 2021-02 Yes TAKE 1 [facility] ers LE 500 mg 2-31 TABLET BY ity o f tablet 00:00: MOUTH [place] 00 EVERY 12 Medical HOURS FOR Branch 7 DAYS ciprofloxac 2021-02 Yes TAKE 1 [facility] ers in HCl 500 2-31 TABLET BY ity of mg tablet 00:00: MOUTH [place] 00 EVERY 12 Medical HOURS FOR Branch 10 DAYS metroNIDAZO 2021-02 Yes TAKE 1 [facility] ers LE 500 mg 2-31 TABLET BY ity o f tablet 00:00: MOUTH [place] 00 EVERY 12 Medical HOURS FOR Branch 7 DAYS ciprofloxac 2022-1 2023- No TAKE 1 Uni vers in HCl 500 -14 TABLET BY ity of mg tablet 00:00: 00:00 MOUTH [place] 00 :00 EVERY 12 Medical HOURS FOR Branch 10 DAYS metroNIDAZO 2021-02- No TAKE 1 Uni vers LE 500 mg -14 TABLET BY ity of tablet 00:00: 00:00 MOUTH [place] 00 :00 EVERY 12 Medical HOURS FOR Branch 7 DAYS ciprofloxac 2021-02- No TAKE 1 Uni vers in HCl 500 -14 TABLET BY ity of mg tablet 00:00: 00:00 MOUTH [place] 00 :00 EVERY 12 Medical HOURS FOR Branch 10 DAYS metroNIDAZO 2021-02- No TAKE 1 Uni vers LE 500 mg -14 TABLET BY ity of tablet 00:00: 00:00 MOUTH [place] 00 :00 EVERY 12 Medical HOURS FOR Branch 7 DAYS insulin 2021-02 Yes 55U inject 55 Unive rs glargine 2-20 Units ity of 100 unit/mL 11:47: under the [place] injection 58 skin in [facility] [place] morning. insulin 2021-02 Yes 55U inject 55 Unive rs glargine 2-20 Units ity of 100 unit/mL 11:47: under the [place] injection 58 skin in [facility] [place] morning. insulin 2021-02 Yes 55U inject 55 Unive rs glargine 2-20 Units ity of 100 unit/mL 11:47: under the [place] injection 58 skin in [facility] [place] morning. insulin 2021-02 Yes 55U inject 55 Unive rs glargine 2-20 Units ity of 100 unit/mL 11:47: under the [place] injection 58 skin in [facility] morning. insulin 2021-02 Yes 55U inject 55 Unive rs glargine 2-20 Units ity of 100 unit/mL 11:47: under the [place] injection 58 skin in [facility] [place] morning. insulin 2021-02 Yes 55U inject 55 Unive rs glargine 2-20 Units ity of 100 unit/mL 11:47: under the [place] injection 58 skin in [facility] morning. insulin 2021-02 Yes 55U inject 55 Unive rs glargine 2-20 Units ity of 100 unit/mL 11:47: under the [place] injection 58 skin in [facility] [place] morning. insulin 2021-02 Yes 55U inject 55 Unive rs glargine 2-20 Units ity of 100 unit/mL 11:47: under the [place] injection 58 skin in [facility] [place] morning. insulin 2021-02 Yes 55U inject 55 Unive rs glargine 2-20 Units ity of 100 unit/mL 11:47: under the [place] injection 58 skin in [facility] [place] morning. insulin 2021-02 Yes 55U inject 55 Unive rs glargine 2-20 Units ity of 100 unit/mL 11:47: under the [place] injection 58 skin in [facility] [place] morning. insulin 2021-02 Yes 55U inject 55 Unive rs glargine 2-20 Units ity of 100 unit/mL 11:47: under the [place] injection 58 skin in [facility] [place] morning. insulin 2021-02 Yes 55U inject 55 Unive rs glargine 2-20 Units ity of 100 unit/mL 11:47: under the [place] injection 58 skin in [facility] [place] morning. insulin 2021-02 Yes 55U inject 55 Unive rs glargine 2-20 Units ity of 100 unit/mL 11:47: under the [place] injection 58 skin in [facility] [place] morning. insulin 2021-02 Yes 55U inject 55 Unive rs glargine 2-20 Units ity of 100 unit/mL 11:47: under the [place] injection 58 skin in [facility] [place] morning. insulin 2021-02 Yes 55U inject 55 Unive rs glargine 2-20 Units ity of 100 unit/mL 11:47: under the [place] injection 58 skin in [facility] morning. insulin 2021-02 Yes 55U inject 55 Unive rs glargine 2-20 Units ity of 100 unit/mL 11:47: under the [place] injection 58 skin in [facility] [place] morning. insulin 2021-02 Yes 55U inject 55 Unive rs glargine 2-20 Units ity of 100 unit/mL 11:47: under the [place] injection 58 skin in [facility] morning. insulin 2021-02 Yes 55U inject 55 Unive rs glargine 2-20 Units ity of 100 unit/mL 11:47: under the [place] injection 58 skin in [facility] [place] morning. insulin 2021-02 Yes 55U inject 55 Unive rs glargine 2-20 Units ity of 100 unit/mL 11:47: under the [place] injection 58 skin in [facility] [place] morning. insulin 2021-02 Yes 55U inject 55 Unive rs glargine 2-20 Units ity of 100 unit/mL 11:47: under the [place] injection 58 skin in [facility] [place] morning. insulin 2021-02 Yes 55U inject 55 Unive rs glargine 2-20 Units ity of 100 unit/mL 11:47: under the [place] injection 58 skin in [facility] [place] morning. insulin 2021-02 Yes 55U inject 55 Unive rs glargine 2-20 Units ity of 100 unit/mL 11:47: under the [place] injection 58 skin in [facility] [place] morning. insulin 2021-02 Yes 55U inject 55 Unive rs glargine 2-20 Units ity of 100 unit/mL 11:47: under the [place] injection 58 skin in [facility] morning. insulin 2021-02 Yes 55U inject 55 Unive rs glargine 2-20 Units ity of 100 unit/mL 11:47: under the [place] injection 58 skin in [facility] morning. insulin 2021-02 Yes 55U inject 55 Unive rs glargine 2-20 Units ity of 100 unit/mL 11:47: under the [place] injection 58 skin in [facility] [place] morning. insulin 2021-02 Yes 55U inject 55 Unive rs glargine 2-20 Units ity of 100 unit/mL 11:47: under the [place] injection 58 skin in [facility] morning. insulin 2021-02 Yes 55U inject 55 Unive rs glargine 2-20 Units ity of 100 unit/mL 11:47: under the [place] injection 58 skin in [facility] morning. insulin 2021-02 Yes 55U inject 55 Unive rs glargine 2-20 Units ity of 100 unit/mL 11:47: under the [place] injection 58 skin in [facility] morning. insulin 2021-02 Yes 55U inject 55 Unive rs glargine 2-20 Units ity of 100 unit/mL 11:47: under the [place] injection 58 skin in [facility] [place] morning. insulin 2021-02 Yes 55U inject 55 Unive rs glargine 2-20 Units ity of 100 unit/mL 11:47: under the [place] injection 58 skin in [facility] [place] morning. insulin 2021-02 Yes 55U inject 55 Unive rs glargine 2-20 Units ity of 100 unit/mL 11:47: under the [place] injection 58 skin in [facility] [place] morning. insulin 2021-02 Yes 55U inject 55 Unive rs glargine 2-20 Units ity of 100 unit/mL 11:47: under the [place] injection 58 skin in [facility] [place] morning. insulin 2021-02 Yes 55U inject 55 Unive rs glargine 2-20 Units ity of 100 unit/mL 11:47: under the [place] injection 58 skin in [facility] [place] morning. insulin 2021-02 Yes 55U inject 55 Unive rs glargine 2-20 Units ity of 100 unit/mL 11:47: under the [place] injection 58 skin in [facility] [place] morning. insulin 2021-02 Yes 55U inject 55 Unive rs glargine 2-20 Units ity of 100 unit/mL 11:47: under the [place] injection 58 skin in [facility] [place] morning. insulin 2021-02 Yes 55U inject 55 Unive rs glargine 2-20 Units ity of 100 unit/mL 11:47: under the [place] injection 58 skin in [facility] [place] morning. insulin 2021-02 Yes 55U inject 55 Unive rs glargine 2-20 Units ity of 100 unit/mL 11:47: under the [place] injection 58 skin in [facility] [place] morning. insulin 2021-02 Yes 55U inject 55 Unive rs glargine 2-20 Units ity of 100 unit/mL 11:47: under the [place] injection 58 skin in [facility] [place] morning. insulin 2021-02 Yes 55U inject 55 Unive rs glargine 2-20 Units ity of 100 unit/mL 11:47: under the [place] injection 58 skin in [facility] [place] morning. insulin 2021-02 Yes 55U inject 55 Unive rs glargine 2-20 Units ity of 100 unit/mL 11:47: under the [place] injection 58 skin in [facility] [place] morning. insulin 2021-02 Yes 55U inject 55 Unive rs glargine 2-20 Units ity of 100 unit/mL 11:47: under the [place] injection 58 skin in [facility] [place] morning. insulin 2021-02 Yes 55U inject 55 Unive rs glargine 2-20 Units ity of 100 unit/mL 11:47: under the [place] injection 58 skin in [facility] [place] morning. insulin 2021-02 Yes 55U inject 55 Unive rs glargine 2-20 Units ity of 100 unit/mL 11:47: under the [place] injection 58 skin in [facility] [place] morning. insulin 2021-02 Yes 55U inject 55 Unive rs glargine 2-20 Units ity of 100 unit/mL 11:47: under the [place] injection 58 skin in [facility] [place] morning. insulin 2021-02 Yes 55U inject 55 Unive rs glargine 2-20 Units ity of 100 unit/mL 11:47: under the [place] injection 58 skin in [facility] [place] morning. insulin 2021-02 Yes 55U inject 55 Unive rs glargine 2-20 Units ity of 100 unit/mL 11:47: under the [place] injection 58 skin in [facility] [place] morning. insulin 2021-02 Yes 55U inject 55 Unive rs glargine 2-20 Units ity of 100 unit/mL 11:47: under the [place] injection 58 skin in [facility] [place] morning. insulin 2021-02 Yes 55U inject 55 Unive rs glargine 2-20 Units ity of 100 unit/mL 11:47: under the [place] injection 58 skin in [facility] morning. insulin 2021-02 Yes 55U inject 55 Unive rs glargine 2-20 Units ity of 100 unit/mL 11:47: under the [place] injection 58 skin in [facility] morning. insulin 2021-02 Yes 55U inject 55 Unive rs glargine 2-20 Units ity of 100 unit/mL 11:47: under the [place] injection 58 skin in [facility] morning. insulin 2021-02 Yes 55U inject 55 Unive rs glargine 2-20 Units ity of 100 unit/mL 11:47: under the [place] injection 58 skin in [facility] [place] morning. insulin 2021-02 Yes 55U inject 55 Unive rs glargine 2-20 Units ity of 100 unit/mL 11:47: under the [place] injection 58 skin in [facility] morning. insulin 2021-02 Yes [id number] 20U inject 20 U nivers aspart 2-20 Units ity of RAPID 00:00: under the [place] (NOVOLOG 00 skin in Medical U-100 the Branch INSULIN morning ASPART) 100 and 20 unit/mL Units at injection noon and 20 Units in the evening. inject before meals. insulin 2021-02 Yes [id number] 1{each} 1 Each 4 Univers syr/ndl 2-20 (four) ity of U100 half 00:00: times [place] melvin 0.5 mL 00 daily. Use Me dical 31 gauge x with Branch 5/16" Syrg insulin 4 times daily. Dx E11.8 flash 2021-02 Yes [id number] 1{each} 1 Each Uni vers glucose 2-20 every 14 ity of sensor 00:00: (fourteen) [place] (FREESTYLE 00 days. Medical DASH 2 Branch SENSOR) Kit insulin 2021-02 Yes [id number] 20U inject 20 U nivers aspart 2-20 Units ity of RAPID 00:00: under the [place] (NOVOLOG 00 skin in [facility] [address] [place] [address] INSULIN morning ASPART) 100 and 20 unit/mL Units at injection noon and 20 Units in the evening. inject before meals. insulin 2021-02 Yes [id number] 1{each} 1 Each 4 Univers syr/ndl 2-20 (four) ity of U100 half 00:00: times [place] melvin 0.5 mL 00 daily. Use Me dical 31 gauge x with Branch 5/16" Syrg insulin 4 times daily. Dx E11.8 flash 2021-02 Yes [id number] 1{each} 1 Each Uni vers glucose 2-20 every 14 ity of sensor 00:00: (fourteen) [place] (FREESTYLE 00 days. Medical DASH 2 Branch SENSOR) Kit dulaglutide 2021-02 Yes [id number] .75mg inject 1 Univers (TRULICITY) 2-20 Pen under ity of 0.75 mg/0.5 00:00: the skin [place] mL PnIj 00 weekly. Medical Branch insulin 2021-02 Yes [id number] 20U inject 20 U nivers aspart 2-20 Units ity of RAPID 00:00: under the [place] (NOVOLOG 00 skin in Medical U-100 the Branch INSULIN morning ASPART) 100 and 20 unit/mL Units at injection noon and 20 Units in the evening. inject before meals. insulin 2021-02 Yes [id number] 1{each} 1 Each 4 Univers syr/ndl 2-20 (four) ity of U100 half 00:00: times [place] melvin 0.5 mL 00 daily. Use Me dical 31 gauge x with Branch 5/16" Syrg insulin 4 times daily. Dx E11.8 flash 2021-02 Yes [id number] 1{each} 1 Each Uni vers glucose 2-20 every 14 ity of sensor 00:00: (fourteen) [place] (FREESTYLE 00 days. Medical DASH 2 Branch SENSOR) Kit insulin 2021-02 Yes [id number] 20U inject 20 U nivers aspart 2-20 Units ity of RAPID 00:00: under the [place] (NOVOLOG 00 skin in Medical U-100 the Branch INSULIN morning ASPART) 100 and 20 unit/mL Units at injection noon and 20 Units in the evening. inject before meals. insulin 2021-02 Yes [id number] 1{each} 1 Each 4 Univers syr/ndl 2-20 (four) ity of U100 half 00:00: times [place] melvin 0.5 mL 00 daily. Use Me dical 31 gauge x with Branch 5/16" Syrg insulin 4 times daily. Dx E11.8 flash 2021-02 Yes [id number] 1{each} 1 Each Uni vers glucose 2-20 every 14 ity of sensor 00:00: (fourteen) [place] (FREESTYLE 00 days. Medical DASH 2 Branch SENSOR) Kit insulin 2021-02 Yes [id number] 20U inject 20 U nivers aspart 2-20 Units ity of RAPID 00:00: under the [place] (NOVOLOG 00 skin in Medical U-100 the Branch INSULIN morning ASPART) 100 and 20 unit/mL Units at injection noon and 20 Units in the evening. inject before meals. insulin 2021-02 Yes [id number] 1{each} 1 Each 4 Univers syr/ndl 2-20 (four) ity of U100 half 00:00: times [place] melvin 0.5 mL 00 daily. Use Me dical 31 gauge x with Branch 5/16" Syrg insulin 4 times daily. Dx E11.8 flash 2021-02 Yes [id number] 1{each} 1 Each Uni vers glucose 2-20 every 14 ity of sensor 00:00: (fourteen) [place] (FREESTYLE 00 days. Medical DASH 2 Branch SENSOR) Kit insulin 2021-02 Yes [id number] 20U inject 20 U nivers aspart 2-20 Units ity of RAPID 00:00: under the [place] (NOVOLOG 00 skin in Medical U-100 the Branch INSULIN morning ASPART) 100 and 20 unit/mL Units at injection noon and 20 Units in the evening. inject before meals. insulin 2021-02 Yes [id number] 1{each} 1 Each 4 Univers syr/ndl 2-20 (four) ity of U100 half 00:00: times [place] melvin 0.5 mL 00 daily. Use Me dical 31 gauge x with Branch 5/16" Syrg insulin 4 times daily. Dx E11.8 flash 2021-02 Yes [id number] 1{each} 1 Each Uni vers glucose 2-20 every 14 ity of sensor 00:00: (fourteen) [place] (FREESTYLE 00 days. Medical DASH 2 Branch SENSOR) Kit dulaglutide 2021-02 Yes [id number] .75mg inject 1 Univers (TRULICITY) 2-20 Pen under ity of 0.75 mg/0.5 00:00: the skin [place] mL PnIj 00 weekly. Medical Branch insulin 2021-02 Yes [id number] 20U inject 20 U nivers aspart 2-20 Units ity of RAPID 00:00: under the [place] (NOVOLOG 00 skin in Medical U-100 the Branch INSULIN morning ASPART) 100 and 20 unit/mL Units at injection noon and 20 Units in the evening. inject before meals. insulin 2021-02 Yes [id number] 1{each} 1 Each 4 Univers syr/ndl 2-20 (four) ity of U100 half 00:00: times [place] melvin 0.5 mL 00 daily. Use Me dical 31 gauge x with Branch 5/16" Syrg insulin 4 times daily. Dx E11.8 flash 2021-02 Yes [id number] 1{each} 1 Each Uni vers glucose 2-20 every 14 ity of sensor 00:00: (fourteen) [place] (FREESTYLE 00 days. Medical DASH 2 Branch SENSOR) Kit dulaglutide 2021-02 Yes [id number] .75mg inject 1 [facility] (TRULICITY) 2-20 Pen under ity of 0.75 mg/0.5 00:00: the skin [place] mL PnIj 00 weekly. Medical Branch insulin 2021-02 Yes [id number] 20U inject 20 U nivers aspart 2-20 Units ity of RAPID 00:00: under the [place] (NOVOLOG 00 skin in Medical U-100 the Branch INSULIN morning ASPART) 100 and 20 unit/mL Units at injection noon and 20 Units in the evening. inject before meals. insulin 2021-02 Yes [id number] 1{each} 1 Each 4 [facility] syr/ndl 2-20 (four) ity of U100 half 00:00: times [place] melvin 0.5 mL 00 daily. Use Me dical 31 gauge x with Branch 516" Syrg insulin 4 times daily. Dx E11.8 flash 2021-02 Yes [id number] 1{each} 1 Each Uni vers glucose 2-20 every 14 ity of sensor 00:00: (fourteen) [place] (FREESTYLE 00 days. Medical DASH 2 Branch SENSOR) Kit dulaglutide 2021-02 Yes [id number] .75mg inject 1 [facility] (TRULICITY) 2-20 Pen under ity of 0.75 mg/0.5 00:00: the skin [place] mL PnIj 00 weekly. Medical Branch insulin 2021-02 Yes [id number] 20U inject 20 U nivers aspart 2-20 Units ity of RAPID 00:00: under the [place] (NOVOLOG 00 skin in Medical U-100 the Branch INSULIN morning ASPART) 100 and 20 unit/mL Units at injection noon and 20 Units in the evening. inject before meals. insulin 2021-02 Yes [id number] 1{each} 1 Each 4 [facility] syr/ndl 2-20 (four) ity of U100 half 00:00: times [place] melvin 0.5 mL 00 daily. Use Me dical 31 gauge x with Branch 5/16" Syrg insulin 4 times daily. Dx E11.8 flash 2021-02 Yes [id number] 1{each} 1 Each Uni vers glucose 2-20 every 14 ity of sensor 00:00: (fourteen) [place] (FREESTYLE 00 days. Medical DASH 2 Branch SENSOR) Kit dulaglutide 2021-02 Yes [id number] .75mg inject 1 [facility] (TRULICITY) 2-20 Pen under ity of 0.75 mg/0.5 00:00: the skin [place] mL PnIj 00 weekly. Medical Branch insulin 2021-02 Yes [id number] 20U inject 20 U nivers aspart 2-20 Units ity of RAPID 00:00: under the [place] (NOVOLOG 00 skin in Medical U-100 the Branch INSULIN morning ASPART) 100 and 20 unit/mL Units at injection noon and 20 Units in the evening. inject before meals. insulin 2021-02 Yes [id number] 1{each} 1 Each 4 [facility] syr/ndl 2-20 (four) ity of U100 half 00:00: times [place] melvin 0.5 mL 00 daily. Use Me dical 31 gauge x with Branch 5/16" Syrg insulin 4 times daily. Dx E11.8 flash 2021-02 Yes [id number] 1{each} 1 Each Uni vers glucose 2-20 every 14 ity of sensor 00:00: (fourteen) [place] (FREESTYLE 00 days. Medical DASH 2 Branch SENSOR) Kit dulaglutide 2021-02 Yes [id number] .75mg inject 1 [facility] (TRULICITY) 2-20 Pen under ity of 0.75 mg/0.5 00:00: the skin [place] mL PnIj 00 weekly. Medical Branch insulin 2021-02 Yes [id number] 20U inject 20 U nivers aspart 2-20 Units ity of RAPID 00:00: under the [place] (NOVOLOG 00 skin in Medical U-100 the Branch INSULIN morning ASPART) 100 and 20 unit/mL Units at injection noon and 20 Units in the evening. inject before meals. insulin 2021-02 Yes [id number] 1{each} 1 Each 4 [facility] syr/ndl 2-20 (four) ity of U100 half 00:00: times [place] melvin 0.5 mL 00 daily. Use Me dical 31 gauge x with Branch 5/16" Syrg insulin 4 times daily. Dx E11.8 flash 2021-02 Yes [id number] 1{each} 1 Each Uni vers glucose 2-20 every 14 ity of sensor 00:00: (fourteen) [place] (FREESTYLE 00 days. Medical DASH 2 Branch SENSOR) Kit insulin 2021-02 Yes [id number] 20U inject 20 U nivers aspart 2-20 Units ity of RAPID 00:00: under the [place] (NOVOLOG 00 skin in Medical U-100 the Branch INSULIN morning ASPART) 100 and 20 unit/mL Units at injection noon and 20 Units in the evening. inject before meals. insulin 2021-02 Yes [id number] 1{each} 1 Each 4 Univers syr/ndl 2-20 (four) ity of U100 half 00:00: times [place] melvin 0.5 mL 00 daily. Use Me dical 31 gauge x with Branch 5/16" Syrg insulin 4 times daily. Dx E11.8 flash 2021-02 Yes [id number] 1{each} 1 Each Uni vers glucose 2-20 every 14 ity of sensor 00:00: (fourteen) [place] (FREESTYLE 00 days. Medical DASH 2 Branch SENSOR) Kit insulin 2021-02 Yes [id number] 20U inject 20 U nivers aspart 2-20 Units ity of RAPID 00:00: under the [place] (NOVOLOG 00 skin in Medical U-100 the Branch INSULIN morning ASPART) 100 and 20 unit/mL Units at injection noon and 20 Units in the evening. inject before meals. insulin 2021-02 Yes [id number] 1{each} 1 Each 4 Univers syr/ndl 2-20 (four) ity of U100 half 00:00: times [place] melvin 0.5 mL 00 daily. Use Me dical 31 gauge x with Branch 5/16" Syrg insulin 4 times daily. Dx E11.8 flash 2021-02 Yes [id number] 1{each} 1 Each Uni vers glucose 2-20 every 14 ity of sensor 00:00: (fourteen) [place] (FREESTYLE 00 days. Medical DASH 2 Branch SENSOR) Kit insulin 2021-02 Yes [id number] 20U inject 20 U nivers aspart 2-20 Units ity of RAPID 00:00: under the [place] (NOVOLOG 00 skin in Medical U-100 the Branch INSULIN morning ASPART) 100 and 20 unit/mL Units at injection noon and 20 Units in the evening. inject before meals. insulin 2021-02 Yes [id number] 1{each} 1 Each 4 [facility] syr/ndl 2-20 (four) ity of U100 half 00:00: times [place] melvin 0.5 mL 00 daily. Use Me dical 31 gauge x with Branch 5/16" Syrg insulin 4 times daily. Dx E11.8 flash 2021-02 Yes [id number] 1{each} 1 Each Uni vers glucose 2-20 every 14 ity of sensor 00:00: (fourteen) [place] (FREESTYLE 00 days. Medical DASH 2 Branch SENSOR) Kit insulin 2021-02 Yes [id number] 20U inject 20 U nivers aspart 2-20 Units ity of RAPID 00:00: under the [place] (NOVOLOG 00 skin in Medical U-100 the Branch INSULIN morning ASPART) 100 and 20 unit/mL Units at injection noon and 20 Units in the evening. inject before meals. insulin 2021-02 Yes [id number] 1{each} 1 Each 4 [facility] syr/ndl 2-20 (four) ity of U100 half 00:00: times [place] melvin 0.5 mL 00 daily. Use Me dical 31 gauge x with Branch 5/16" Syrg insulin 4 times daily. Dx E11.8 flash 2021-02 Yes [id number] 1{each} 1 Each Uni vers glucose 2-20 every 14 ity of sensor 00:00: (fourteen) [place] (FREESTYLE 00 days. Medical DASH 2 Branch SENSOR) Kit insulin 2021-02 Yes [id number] 20U inject 20 U nivers aspart 2-20 Units ity of RAPID 00:00: under the [place] (NOVOLOG 00 skin in Medical U-100 the Branch INSULIN morning ASPART) 100 and 20 unit/mL Units at injection noon and 20 Units in the evening. inject before meals. insulin 2021-02 Yes [id number] 1{each} 1 Each 4 [facility] syr/ndl 2-20 (four) ity of U100 half 00:00: times [place] melvin 0.5 mL 00 daily. Use Me dical 31 gauge x with Branch 5/16" Syrg insulin 4 times daily. Dx E11.8 flash 2021-02 Yes [id number] 1{each} 1 Each Uni vers glucose 2-20 every 14 ity of sensor 00:00: (fourteen) [place] (FREESTYLE 00 days. Medical DASH 2 Branch SENSOR) Kit insulin 2021-02 Yes [id number] 20U inject 20 U nivers aspart 2-20 Units ity of RAPID 00:00: under the [place] (NOVOLOG 00 skin in Medical U-100 the Branch INSULIN morning ASPART) 100 and 20 unit/mL Units at injection noon and 20 Units in the evening. inject before meals. insulin 2021-02 Yes [id number] 1{each} 1 Each 4 [facility] syr/ndl 2-20 (four) ity of U100 half 00:00: times [place] melvin 0.5 mL 00 daily. Use Me dical 31 gauge x with Branch 5/16" Syrg insulin 4 times daily. Dx E11.8 flash 2021-02 Yes [id number] 1{each} 1 Each Uni vers glucose 2-20 every 14 ity of sensor 00:00: (fourteen) [place] (FREESTYLE 00 days. Medical ADSH 2 Branch SENSOR) Kit insulin 2021-02 Yes [id number] 20U inject 20 U nivers aspart 2-20 Units ity of RAPID 00:00: under the [place] (NOVOLOG 00 skin in Medical U-100 the Branch INSULIN morning ASPART) 100 and 20 unit/mL Units at injection noon and 20 Units in the evening. inject before meals. insulin 2021-02 Yes [id number] 1{each} 1 Each 4 [facility] syr/ndl 2-20 (four) ity of U100 half 00:00: times [place] melvin 0.5 mL 00 daily. Use Me dical 31 gauge x with Branch 5/16" Syrg insulin 4 times daily. Dx E11.8 flash 2021-02 Yes [id number] 1{each} 1 Each Uni vers glucose 2-20 every 14 ity of sensor 00:00: (fourteen) [place] (FREESTYLE 00 days. Medical DASH 2 Branch SENSOR) Kit insulin 2021-02 Yes [id number] 20U inject 20 U nivers aspart 2-20 Units ity of RAPID 00:00: under the [place] (NOVOLOG 00 skin in Medical U-100 the Branch INSULIN morning ASPART) 100 and 20 unit/mL Units at injection noon and 20 Units in the evening. inject before meals. insulin 2021-02 Yes [id number] 1{each} 1 Each 4 [facility] syr/ndl 2-20 (four) ity of U100 half 00:00: times [place] melvin 0.5 mL 00 daily. Use Me dical 31 gauge x with Branch 5/16" Syrg insulin 4 times daily. Dx E11.8 flash 2021-02 Yes [id number] 1{each} 1 Each Uni vers glucose 2-20 every 14 ity of sensor 00:00: (fourteen) (FREESTYLE 00 days. Medical DASH 2 Branch SENSOR) Kit insulin 2021-02 Yes [id number] 20U inject 20 U nivers aspart 2-20 Units ity of RAPID 00:00: under the [place] (NOVOLOG 00 skin in Medical U-100 the Branch INSULIN morning ASPART) 100 and 20 unit/mL Units at injection noon and 20 Units in the evening. inject before meals. insulin 2021-02 Yes [id number] 1{each} 1 Each 4 [facility] syr/ndl 2-20 (four) ity of U100 half 00:00: times [place] melvin 0.5 mL 00 daily. Use Me dical 31 gauge x with Branch 5/16" Syrg insulin 4 times daily. Dx E11.8 flash 2021-02 Yes [id number] 1{each} 1 Each Uni vers glucose 2-20 every 14 ity of sensor 00:00: (fourteen) [place] (FREESTYLE 00 days. Medical DASH 2 Branch SENSOR) Kit insulin 2021-02 Yes [id number] 20U inject 20 U nivers aspart 2-20 Units ity of RAPID 00:00: under the [place] (NOVOLOG 00 skin in Medical U-100 the Branch INSULIN morning ASPART) 100 and 20 unit/mL Units at injection noon and 20 Units in the evening. inject before meals. insulin 2021-02 Yes [id number] 1{each} 1 Each 4 [facility] syr/ndl 2-20 (four) ity of U100 half 00:00: times [place] melvin 0.5 mL 00 daily. Use Me dical 31 gauge x with Branch 5/16" Syrg insulin 4 times daily. Dx E11.8 flash 2021-02 Yes [id number] 1{each} 1 Each [facility] vers glucose 2-20 every 14 ity of sensor 00:00: (fourteen) (FREESTYLE 00 days. Medical DASH 2 Branch SENSOR) Kit insulin 2021-02 Yes [id number] 20U inject 20 U nivers aspart 2-20 Units ity of RAPID 00:00: under the [place] (NOVOLOG 00 skin in Medical U-100 the Branch INSULIN morning ASPART) 100 and 20 unit/mL Units at injection noon and 20 Units in the evening. inject before meals. insulin 2021-02 Yes [id number] 1{each} 1 Each 4 [facility] syr/ndl 2-20 (four) ity of U100 half 00:00: times [place] melvin 0.5 mL 00 daily. Use Me dical 31 gauge x with Branch 5/16" Syrg insulin 4 times daily. Dx E11.8 flash 2021-02 Yes [id number] 1{each} 1 Each [facility] vers glucose 2-20 every 14 ity of sensor 00:00: (fourteen) [place] (FREESTYLE 00 days. Medical DASH 2 Branch SENSOR) Kit insulin 2021-02 Yes [id number] 20U inject 20 U nivers aspart 2-20 Units ity of RAPID 00:00: under the [place] (NOVOLOG 00 skin in Medical U-100 the Branch INSULIN morning ASPART) 100 and 20 unit/mL Units at injection noon and 20 Units in the evening. inject before meals. insulin 2021-02 Yes [id number] 1{each} 1 Each 4 [facility] syr/ndl 2-20 (four) ity of U100 half 00:00: times [place] melvin 0.5 mL 00 daily. Use Me dical 31 gauge x with Branch 5/16" Syrg insulin 4 times daily. Dx E11.8 flash 2021-02 Yes [id number] 1{each} 1 Each [facility] vers glucose 2-20 every 14 ity of sensor 00:00: (fourteen) [place] (FREESTYLE 00 days. Medical DASH 2 Branch SENSOR) Kit insulin 2021-02 Yes [id number] 20U inject 20 U nivers aspart 2-20 Units ity of RAPID 00:00: under the [place] (NOVOLOG 00 skin in Medical U-100 the Branch INSULIN morning ASPART) 100 and 20 unit/mL Units at injection noon and 20 Units in the evening. inject before meals. insulin 2021-02 Yes [id number] 1{each} 1 Each 4 [facility] syr/ndl 2-20 (four) ity of U100 half 00:00: times [place] melvin 0.5 mL 00 daily. Use Me dical 31 gauge x with Branch 5/16" Syrg insulin 4 times daily. Dx E11.8 flash 2021-02 Yes [id number] 1{each} 1 Each [facility] vers glucose 2-20 every 14 ity of sensor 00:00: (fourteen) [place] (FREESTYLE 00 days. Medical DASH 2 Branch SENSOR) Kit insulin 2021-02 Yes [id number] 20U inject 20 U nivers aspart 2-20 Units ity of RAPID 00:00: under the [place] (NOVOLOG 00 skin in Medical U-100 the Branch INSULIN morning ASPART) 100 and 20 unit/mL Units at injection noon and 20 Units in the evening. inject before meals. insulin 2021-02 Yes [id number] 1{each} 1 Each 4 [facility] syr/ndl 2-20 (four) ity of U100 half 00:00: times [place] melvin 0.5 mL 00 daily. Use Me dical 31 gauge x with Branch 5/16" Syrg insulin 4 times daily. Dx E11.8 flash 2021-02 Yes [id number] 1{each} 1 Each [facility] vers glucose 2-20 every 14 ity of sensor 00:00: (fourteen) (FREESTYLE 00 days. Medical DASH 2 Branch SENSOR) Kit insulin 2021-02 Yes [id number] 20U inject 20 U nivers aspart 2-20 Units ity of RAPID 00:00: under the [place] (NOVOLOG 00 skin in Medical U-100 the Branch INSULIN morning ASPART) 100 and 20 unit/mL Units at injection noon and 20 Units in the evening. inject before meals. insulin 2021-02 Yes [id number] 1{each} 1 Each 4 [facility] syr/ndl 2-20 (four) ity of U100 half 00:00: times [place] melvin 0.5 mL 00 daily. Use Me dical 31 gauge x with Branch 5/16" Syrg insulin 4 times daily. Dx E11.8 flash 2021-02 Yes [id number] 1{each} 1 Each [facility] vers glucose 2-20 every 14 ity of sensor 00:00: (fourteen) [place] (FREESTYLE 00 days. Medical DASH 2 Branch SENSOR) Kit insulin 2021-02 Yes [id number] 20U inject 20 U nivers aspart 2-20 Units ity of RAPID 00:00: under the [place] (NOVOLOG 00 skin in Medical U-100 the Branch INSULIN morning ASPART) 100 and 20 unit/mL Units at injection noon and 20 Units in the evening. inject before meals. insulin 2021-02 Yes [id number] 1{each} 1 Each 4 [facility] syr/ndl 2-20 (four) ity of U100 half 00:00: times [place] melvin 0.5 mL 00 daily. Use Me dical 31 gauge x with Branch 5/16" Syrg insulin 4 times daily. Dx E11.8 flash 2021-02 Yes [id number] 1{each} 1 Each [facility] vers glucose 2-20 every 14 ity of sensor 00:00: (fourteen) [place] (FREESTYLE 00 days. Medical DASH 2 Branch SENSOR) Kit insulin 2021-02 Yes [id number] 20U inject 20 U nivers aspart 2-20 Units ity of RAPID 00:00: under the [place] (NOVOLOG 00 skin in Medical U-100 the Branch INSULIN morning ASPART) 100 and 20 unit/mL Units at injection noon and 20 Units in the evening. inject before meals. insulin 2021-02 Yes [id number] 1{each} 1 Each 4 [facility] syr/ndl 2-20 (four) ity of U100 half 00:00: times [place] melvin 0.5 mL 00 daily. Use Me dical 31 gauge x with Branch 5/16" Syrg insulin 4 times daily. Dx E11.8 flash 2021-02 Yes [id number] 1{each} 1 Each Uni vers glucose 2-20 every 14 ity of sensor 00:00: (fourteen) [place] (FREESTYLE 00 days. Medical DASH 2 Branch SENSOR) Kit insulin 2021-02 Yes [id number] 20U inject 20 U nivers aspart 2-20 Units ity of RAPID 00:00: under the [place] (NOVOLOG 00 skin in Medical U-100 the Branch INSULIN morning ASPART) 100 and 20 unit/mL Units at injection noon and 20 Units in the evening. inject before meals. insulin 2021-02 Yes [id number] 1{each} 1 Each 4 [facility] syr/ndl 2-20 (four) ity of U100 half 00:00: times [place] melvin 0.5 mL 00 daily. Use Me dical 31 gauge x with Branch 5/16" Syrg insulin 4 times daily. Dx E11.8 flash 2021-02 Yes [id number] 1{each} 1 Each Uni vers glucose 2-20 every 14 ity of sensor 00:00: (fourteen) [place] (FREESTYLE 00 days. Medical DASH 2 Branch SENSOR) Kit insulin 2021-02 Yes [id number] 20U inject 20 U nivers aspart 2-20 Units ity of RAPID 00:00: under the [place] (NOVOLOG 00 skin in Medical U-100 the Branch INSULIN morning ASPART) 100 and 20 unit/mL Units at injection noon and 20 Units in the evening. inject before meals. insulin 2021-02 Yes [id number] 1{each} 1 Each 4 [facility] syr/ndl 2-20 (four) ity of U100 half 00:00: times [place] melvin 0.5 mL 00 daily. Use Me dical 31 gauge x with Branch 5/16" Syrg insulin 4 times daily. Dx E11.8 flash 2021-02 Yes [id number] 1{each} 1 Each Uni vers glucose 2-20 every 14 ity of sensor 00:00: (fourteen) [place] (FREESTYLE 00 days. Medical DASH 2 Branch SENSOR) Kit insulin 2021-02 Yes [id number] 20U inject 20 U nivers aspart 2-20 Units ity of RAPID 00:00: under the [place] (NOVOLOG 00 skin in Medical U-100 the Branch INSULIN morning ASPART) 100 and 20 unit/mL Units at injection noon and 20 Units in the evening. inject before meals. insulin 2021-02 Yes [id number] 1{each} 1 Each 4 [facility] syr/ndl 2-20 (four) ity of U100 half 00:00: times [place] melvin 0.5 mL 00 daily. Use Me dical 31 gauge x with Branch 5/16" Syrg insulin 4 times daily. Dx E11.8 flash 2021-02 Yes [id number] 1{each} 1 Each Uni vers glucose 2-20 every 14 ity of sensor 00:00: (fourteen) [place] (FREESTYLE 00 days. Medical DASH 2 Branch SENSOR) Kit insulin 2021-02 Yes [id number] 20U inject 20 U nivers aspart 2-20 Units ity of RAPID 00:00: under the [place] (NOVOLOG 00 skin in Medical U-100 the Branch INSULIN morning ASPART) 100 and 20 unit/mL Units at injection noon and 20 Units in the evening. inject before meals. insulin 2021-02 Yes [id number] 1{each} 1 Each 4 [facility] syr/ndl 2-20 (four) ity of U100 half 00:00: times [place] melvin 0.5 mL 00 daily. Use Me dical 31 gauge x with Branch 5/16" Syrg insulin 4 times daily. Dx E11.8 flash 2021-02 Yes [id number] 1{each} 1 Each Uni vers glucose 2-20 every 14 ity of sensor 00:00: (fourteen) [place] (FREESTYLE 00 days. Medical DASH 2 Branch SENSOR) Kit insulin 2021-02 Yes [id number] 20U inject 20 U nivers aspart 2-20 Units ity of RAPID 00:00: under the [place] (NOVOLOG 00 skin in Medical U-100 the Branch INSULIN morning ASPART) 100 and 20 unit/mL Units at injection noon and 20 Units in the evening. inject before meals. insulin 2021-02 Yes [id number] 1{each} 1 Each 4 [facility] syr/ndl 2-20 (four) ity of U100 half 00:00: times [place] melvin 0.5 mL 00 daily. Use Me dical 31 gauge x with Branch 5/16" Syrg insulin 4 times daily. Dx E11.8 flash 2021-02 Yes [id number] 1{each} 1 Each Uni vers glucose 2-20 every 14 ity of sensor 00:00: (fourteen) [place] (FREESTYLE 00 days. Medical DASH 2 Branch SENSOR) Kit insulin 2021-02 Yes [id number] 20U inject 20 U nivers aspart 2-20 Units ity of RAPID 00:00: under the [place] (NOVOLOG 00 skin in Medical U-100 the Branch INSULIN morning ASPART) 100 and 20 unit/mL Units at injection noon and 20 Units in the evening. inject before meals. insulin 2021-02 Yes [id number] 1{each} 1 Each 4 [facility] syr/ndl 2-20 (four) ity of U100 half 00:00: times [place] melvin 0.5 mL 00 daily. Use Me dical 31 gauge x with Branch 5/16" Syrg insulin 4 times daily. Dx E11.8 flash 2021-02 Yes [id number] 1{each} 1 Each Uni vers glucose 2-20 every 14 ity of sensor 00:00: (fourteen) [place] (FREESTYLE 00 days. Medical DASH 2 Branch SENSOR) Kit insulin 2021-02 Yes [id number] 20U inject 20 U nivers aspart 2-20 Units ity of RAPID 00:00: under the [place] (NOVOLOG 00 skin in Medical U-100 the Branch INSULIN morning ASPART) 100 and 20 unit/mL Units at injection noon and 20 Units in the evening. inject before meals. insulin 2021-02 Yes [id number] 1{each} 1 Each 4 [facility] syr/ndl 2-20 (four) ity of U100 half 00:00: times [place] melvin 0.5 mL 00 daily. Use Me dical 31 gauge x with Branch 5/16" Syrg insulin 4 times daily. Dx E11.8 flash 2021-02 Yes [id number] 1{each} 1 Each Uni vers glucose 2-20 every 14 ity of sensor 00:00: (fourteen) [place] (FREESTYLE 00 days. Medical DASH 2 Branch SENSOR) Kit insulin 2021-02 Yes [id number] 20U inject 20 U nivers aspart 2-20 Units ity of RAPID 00:00: under the [place] (NOVOLOG 00 skin in Medical U-100 the Branch INSULIN morning ASPART) 100 and 20 unit/mL Units at injection noon and 20 Units in the evening. inject before meals. insulin 2021-02 Yes [id number] 1{each} 1 Each 4 [facility] syr/ndl 2-20 (four) ity of U100 half 00:00: times [place] melvin 0.5 mL 00 daily. Use Me dical 31 gauge x with Branch 5/16" Syrg insulin 4 times daily. Dx E11.8 flash 2021-02 Yes [id number] 1{each} 1 Each Uni vers glucose 2-20 every 14 ity of sensor 00:00: (fourteen) [place] (FREESTYLE 00 days. Medical DASH 2 Branch SENSOR) Kit insulin 2021-02 Yes [id number] 20U inject 20 U nivers aspart 2-20 Units ity of RAPID 00:00: under the [place] (NOVOLOG 00 skin in Medical U-100 the Branch INSULIN morning ASPART) 100 and 20 unit/mL Units at injection noon and 20 Units in the evening. inject before meals. insulin 2021-02 Yes [id number] 1{each} 1 Each 4 [facility] syr/ndl 2-20 (four) ity of U100 half 00:00: times [place] melvin 0.5 mL 00 daily. Use Me dical 31 gauge x with Branch 5/16" Syrg insulin 4 times daily. Dx E11.8 flash 2021-02 Yes [id number] 1{each} 1 Each Uni vers glucose 2-20 every 14 ity of sensor 00:00: (fourteen) [place] (FREESTYLE 00 days. Medical DASH 2 Branch SENSOR) Kit insulin 2021-02 Yes [id number] 20U inject 20 U nivers aspart 2-20 Units ity of RAPID 00:00: under the [place] (NOVOLOG 00 skin in Medical U-100 the Branch INSULIN morning ASPART) 100 and 20 unit/mL Units at injection noon and 20 Units in the evening. inject before meals. insulin 2021-02 Yes [id number] 1{each} 1 Each 4 [facility] syr/ndl 2-20 (four) ity of U100 half 00:00: times [place] melvin 0.5 mL 00 daily. Use Me dical 31 gauge x with Branch 5/16" Syrg insulin 4 times daily. Dx E11.8 flash 2021-02 Yes [id number] 1{each} 1 Each Uni vers glucose 2-20 every 14 ity of sensor 00:00: (fourteen) (FREESTYLE 00 days. Medical DASH 2 Branch SENSOR) Kit insulin 2021-02 Yes [id number] 20U inject 20 U nivers aspart 2-20 Units ity of RAPID 00:00: under the [place] (NOVOLOG 00 skin in Medical U-100 the Branch INSULIN morning ASPART) 100 and 20 unit/mL Units at injection noon and 20 Units in the evening. inject before meals. insulin 2021-02 Yes [id number] 1{each} 1 Each 4 [facility] syr/ndl 2-20 (four) ity of U100 half 00:00: times [place] melvin 0.5 mL 00 daily. Use Me dical 31 gauge x with Branch 5/16" Syrg insulin 4 times daily. Dx E11.8 flash 2021-02 Yes [id number] 1{each} 1 Each Uni vers glucose 2-20 every 14 ity of sensor 00:00: (fourteen) [place] (FREESTYLE 00 days. Medical DASH 2 Branch SENSOR) Kit insulin 2021-02 Yes [id number] 20U inject 20 U nivers aspart 2-20 Units ity of RAPID 00:00: under the [place] (NOVOLOG 00 skin in Medical U-100 the Branch INSULIN morning ASPART) 100 and 20 unit/mL Units at injection noon and 20 Units in the evening. inject before meals. insulin 2021-02 Yes [id number] 1{each} 1 Each 4 [facility] syr/ndl 2-20 (four) ity of U100 half 00:00: times [place] melvin 0.5 mL 00 daily. Use Me dical 31 gauge x with Branch 5/16" Syrg insulin 4 times daily. Dx E11.8 flash 2021-02 Yes [id number] 1{each} 1 Each Uni vers glucose 2-20 every 14 ity of sensor 00:00: (fourteen) (FREESTYLE 00 days. Medical DASH 2 Branch SENSOR) Kit insulin 2021-02 Yes [id number] 20U inject 20 U nivers aspart 2-20 Units ity of RAPID 00:00: under the [place] (NOVOLOG 00 skin in Medical U-100 the Branch INSULIN morning ASPART) 100 and 20 unit/mL Units at injection noon and 20 Units in the evening. inject before meals. insulin 2021-02 Yes [id number] 1{each} 1 Each 4 [facility] syr/ndl 2-20 (four) ity of U100 half 00:00: times [place] melvin 0.5 mL 00 daily. Use Me dical 31 gauge x with Branch 5/16" Syrg insulin 4 times daily. Dx E11.8 flash 2021-02 Yes [id number] 1{each} 1 Each Uni vers glucose 2-20 every 14 ity of sensor 00:00: (fourteen) [place] (FREESTYLE 00 days. Medical DASH 2 Branch SENSOR) Kit insulin 2021-02 Yes [id number] 20U inject 20 U nivers aspart 2-20 Units ity of RAPID 00:00: under the [place] (NOVOLOG 00 skin in Medical U-100 the Branch INSULIN morning ASPART) 100 and 20 unit/mL Units at injection noon and 20 Units in the evening. inject before meals. insulin 2021-02 Yes [id number] 1{each} 1 Each 4 [facility] syr/ndl 2-20 (four) ity of U100 half 00:00: times [place] melvin 0.5 mL 00 daily. Use Me dical 31 gauge x with Branch 5/16" Syrg insulin 4 times daily. Dx E11.8 flash 2021-02 Yes [id number] 1{each} 1 Each Uni vers glucose 2-20 every 14 ity of sensor 00:00: (fourteen) (FREESTYLE 00 days. Medical DASH 2 Branch SENSOR) Kit insulin 2021-02 Yes [id number] 20U inject 20 U nivers aspart 2-20 Units ity of RAPID 00:00: under the [place] (NOVOLOG 00 skin in Medical U-100 the Branch INSULIN morning ASPART) 100 and 20 unit/mL Units at injection noon and 20 Units in the evening. inject before meals. insulin 2021-02 Yes [id number] 1{each} 1 Each 4 [facility] syr/ndl 2-20 (four) ity of U100 half 00:00: times [place] melvin 0.5 mL 00 daily. Use Me dical 31 gauge x with Branch 5/16" Syrg insulin 4 times daily. Dx E11.8 flash 2021-02 Yes [id number] 1{each} 1 Each Uni vers glucose 2-20 every 14 ity of sensor 00:00: (fourteen) [place] (FREESTYLE 00 days. Medical DASH 2 Branch SENSOR) Kit insulin 2021-02 Yes [id number] 20U inject 20 U nivers aspart 2-20 Units ity of RAPID 00:00: under the [place] (NOVOLOG 00 skin in Medical U-100 the Branch INSULIN morning ASPART) 100 and 20 unit/mL Units at injection noon and 20 Units in the evening. inject before meals. insulin 2021-02 Yes [id number] 1{each} 1 Each 4 [facility] syr/ndl 2-20 (four) ity of U100 half 00:00: times [place] melvin 0.5 mL 00 daily. Use Me dical 31 gauge x with Branch 5/16" Syrg insulin 4 times daily. Dx E11.8 flash 2021-02 Yes [id number] 1{each} 1 Each Uni vers glucose 2-20 every 14 ity of sensor 00:00: (fourteen) [place] (FREESTYLE 00 days. Medical DASH 2 Branch SENSOR) Kit insulin 2021-02 Yes [id number] 20U inject 20 U nivers aspart 2-20 Units ity of RAPID 00:00: under the [place] (NOVOLOG 00 skin in Medical U-100 the Branch INSULIN morning ASPART) 100 and 20 unit/mL Units at injection noon and 20 Units in the evening. inject before meals. insulin 2021-02 Yes [id number] 1{each} 1 Each 4 [facility] syr/ndl 2-20 (four) ity of U100 half 00:00: times [place] melvin 0.5 mL 00 daily. Use Me dical 31 gauge x with Branch 5/16" Syrg insulin 4 times daily. Dx E11.8 flash 2021-02 Yes [id number] 1{each} 1 Each Uni vers glucose 2-20 every 14 ity of sensor 00:00: (fourteen) [place] (FREESTYLE 00 days. Medical DASH 2 Branch SENSOR) Kit insulin 2021-02 Yes [id number] 20U inject 20 U nivers aspart 2-20 Units ity of RAPID 00:00: under the [place] (NOVOLOG 00 skin in Medical U-100 the Branch INSULIN morning ASPART) 100 and 20 unit/mL Units at injection noon and 20 Units in the evening. inject before meals. insulin 2021-02 Yes [id number] 1{each} 1 Each 4 [facility] syr/ndl 2-20 (four) ity of U100 half 00:00: times [place] melvin 0.5 mL 00 daily. Use Me dical 31 gauge x with Branch 5/16" Syrg insulin 4 times daily. Dx E11.8 flash 2021-02 Yes [id number] 1{each} 1 Each Uni vers glucose 2-20 every 14 ity of sensor 00:00: (fourteen) [place] (FREESTYLE 00 days. Medical DASH 2 Branch SENSOR) Kit insulin 2021-02 Yes [id number] 20U inject 20 U nivers aspart 2-20 Units ity of RAPID 00:00: under the [place] (NOVOLOG 00 skin in Medical U-100 the Branch INSULIN morning ASPART) 100 and 20 unit/mL Units at injection noon and 20 Units in the evening. inject before meals. insulin 2021-02 Yes [id number] 1{each} 1 Each 4 [facility] syr/ndl 2-20 (four) ity of U100 half 00:00: times [place] melvin 0.5 mL 00 daily. Use Me dical 31 gauge x with Branch 5/16" Syrg insulin 4 times daily. Dx E11.8 flash 2021-02 Yes [id number] 1{each} 1 Each Uni vers glucose 2-20 every 14 ity of sensor 00:00: (fourteen) [place] (FREESTYLE 00 days. Medical DASH 2 Branch SENSOR) Kit insulin 2021-02 Yes [id number] 20U inject 20 U nivers aspart 2-20 Units ity of RAPID 00:00: under the [place] (NOVOLOG 00 skin in Medical U-100 the Branch INSULIN morning ASPART) 100 and 20 unit/mL Units at injection noon and 20 Units in the evening. inject before meals. insulin 2021-02 Yes [id number] 1{each} 1 Each 4 [facility] syr/ndl 2-20 (four) ity of U100 half 00:00: times [place] melvin 0.5 mL 00 daily. Use Me dical 31 gauge x with Branch 5/16" Syrg insulin 4 times daily. Dx E11.8 flash 2021-02 Yes [id number] 1{each} 1 Each Uni vers glucose 2-20 every 14 ity of sensor 00:00: (fourteen) [place] (FREESTYLE 00 days. Medical DASH 2 Branch SENSOR) Kit insulin 2021-02 Yes [id number] 20U inject 20 U nivers aspart 2-20 Units ity of RAPID 00:00: under the [place] (NOVOLOG 00 skin in Medical U-100 the Branch INSULIN morning ASPART) 100 and 20 unit/mL Units at injection noon and 20 Units in the evening. inject before meals. insulin 2021-02 Yes [id number] 1{each} 1 Each 4 [facility] syr/ndl 2-20 (four) ity of U100 half 00:00: times [place] melvin 0.5 mL 00 daily. Use Me dical 31 gauge x with Branch 5/16" Syrg insulin 4 times daily. Dx E11.8 flash 2021-02 Yes [id number] 1{each} 1 Each Uni vers glucose 2-20 every 14 ity of sensor 00:00: (fourteen) [place] (FREESTYLE 00 days. Medical DASH 2 Branch SENSOR) Kit insulin 2021-02 Yes [id number] 20U inject 20 U nivers aspart 2-20 Units ity of RAPID 00:00: under the [place] (NOVOLOG 00 skin in Medical U-100 the Branch INSULIN morning ASPART) 100 and 20 unit/mL Units at injection noon and 20 Units in the evening. inject before meals. insulin 2021-02 Yes [id number] 1{each} 1 Each 4 [facility] syr/ndl 2-20 (four) ity of U100 half 00:00: times [place] melvin 0.5 mL 00 daily. Use Me dical 31 gauge x with Branch 5/16" Syrg insulin 4 times daily. Dx E11.8 flash 2021-02 Yes [id number] 1{each} 1 Each Uni vers glucose 2-20 every 14 ity of sensor 00:00: (fourteen) [place] (FREESTYLE 00 days. Medical DASH 2 Branch SENSOR) Kit insulin 2021-02 Yes [id number] 20U inject 20 U nivers aspart 2-20 Units ity of RAPID 00:00: under the [place] (NOVOLOG 00 skin in Medical U-100 the Branch INSULIN morning ASPART) 100 and 20 unit/mL Units at injection noon and 20 Units in the evening. inject before meals. insulin 2021-02 Yes [id number] 1{each} 1 Each 4 [facility] syr/ndl 2-20 (four) ity of U100 half 00:00: times [place] melvin 0.5 mL 00 daily. Use Me dical 31 gauge x with Branch 5/16" Syrg insulin 4 times daily. Dx E11.8 flash 2021-02 Yes [id number] 1{each} 1 Each Uni vers glucose 2-20 every 14 ity of sensor 00:00: (fourteen) [place] (FREESTYLE 00 days. Medical DASH 2 Branch SENSOR) Kit insulin 2021-02 Yes [id number] 20U inject 20 U nivers aspart 2-20 Units ity of RAPID 00:00: under the [place] (NOVOLOG 00 skin in Medical U-100 the Branch INSULIN morning ASPART) 100 and 20 unit/mL Units at injection noon and 20 Units in the evening. inject before meals. insulin 2021-02 Yes [id number] 1{each} 1 Each 4 [facility] syr/ndl 2-20 (four) ity of U100 half 00:00: times [place] melvin 0.5 mL 00 daily. Use Me dical 31 gauge x with Branch 5/16" Syrg insulin 4 times daily. Dx E11.8 flash 2021-02 Yes [id number] 1{each} 1 Each Uni vers glucose 2-20 every 14 ity of sensor 00:00: (fourteen) [place] (FREESTYLE 00 days. Medical DASH 2 Branch SENSOR) Kit insulin 2021-02 Yes [id number] 20U inject 20 U nivers aspart 2-20 Units ity of RAPID 00:00: under the [place] (NOVOLOG 00 skin in Medical U-100 the Branch INSULIN morning ASPART) 100 and 20 unit/mL Units at injection noon and 20 Units in the evening. inject before meals. insulin 2021-02 Yes [id number] 1{each} 1 Each 4 [facility] syr/ndl 2-20 (four) ity of U100 half 00:00: times [place] melvin 0.5 mL 00 daily. Use Me dical 31 gauge x with Branch 5/16" Syrg insulin 4 times daily. Dx E11.8 flash 2021-02 Yes [id number] 1{each} 1 Each Uni vers glucose 2-20 every 14 ity of sensor 00:00: (fourteen) [place] (FREESTYLE 00 days. Medical DASH 2 Branch SENSOR) Kit insulin 2021-02 Yes [id number] 20U inject 20 U nivers aspart 2-20 Units ity of RAPID 00:00: under the [place] (NOVOLOG 00 skin in Medical U-100 the Branch INSULIN morning ASPART) 100 and 20 unit/mL Units at injection noon and 20 Units in the evening. inject before meals. insulin 2021-02 Yes [id number] 1{each} 1 Each 4 [facility] syr/ndl 2-20 (four) ity of U100 half 00:00: times [place] melvin 0.5 mL 00 daily. Use Me dical 31 gauge x with Branch 5/16" Syrg insulin 4 times daily. Dx E11.8 flash 2021-02 Yes [id number] 1{each} 1 Each Uni vers glucose 2-20 every 14 ity of sensor 00:00: (fourteen) (FREESTYLE 00 days. Medical DASH 2 Branch SENSOR) Kit insulin 2021-02 Yes [id number] 20U inject 20 U nivers aspart 2-20 Units ity of RAPID 00:00: under the [place] (NOVOLOG 00 skin in Medical U-100 the Branch INSULIN morning ASPART) 100 and 20 unit/mL Units at injection noon and 20 Units in the evening. inject before meals. insulin 2021-02 Yes [id number] 1{each} 1 Each 4 [facility] syr/ndl 2-20 (four) ity of U100 half 00:00: times [place] melvin 0.5 mL 00 daily. Use Me dical 31 gauge x with Branch 5/16" Syrg insulin 4 times daily. Dx E11.8 flash 2021-02 Yes [id number] 1{each} 1 Each Uni vers glucose 2-20 every 14 ity of sensor 00:00: (fourteen) [place] (FREESTYLE 00 days. Medical DASH 2 Branch SENSOR) Kit insulin 2021-02 Yes [id number] 20U inject 20 U nivers aspart 2-20 Units ity of RAPID 00:00: under the [place] (NOVOLOG 00 skin in Medical U-100 the Branch INSULIN morning ASPART) 100 and 20 unit/mL Units at injection noon and 20 Units in the evening. inject before meals. insulin 2021-02 Yes [id number] 1{each} 1 Each 4 [facility] syr/ndl 2-20 (four) ity of U100 half 00:00: times [place] melvin 0.5 mL 00 daily. Use Me dical 31 gauge x with Branch 5/16" Syrg insulin 4 times daily. Dx E11.8 flash 2021-02 Yes [id number] 1{each} 1 Each Uni vers glucose 2-20 every 14 ity of sensor 00:00: (fourteen) [place] (FREESTYLE 00 days. Medical DASH 2 Branch SENSOR) Kit insulin 2021-02 Yes [id number] 20U inject 20 U nivers aspart 2-20 Units ity of RAPID 00:00: under the [place] (NOVOLOG 00 skin in Medical U-100 the Branch INSULIN morning ASPART) 100 and 20 unit/mL Units at injection noon and 20 Units in the evening. inject before meals. insulin 2021-02 Yes [id number] 1{each} 1 Each 4 [facility] syr/ndl 2-20 (four) ity of U100 half 00:00: times [place] melvin 0.5 mL 00 daily. Use Me dical 31 gauge x with Branch 5/16" Syrg insulin 4 times daily. Dx E11.8 flash 2021-02 Yes [id number] 1{each} 1 Each Uni vers glucose 2-20 every 14 ity of sensor 00:00: (fourteen) [place] (FREESTYLE 00 days. Medical DASH 2 Branch SENSOR) Kit insulin 2021-02 Yes [id number] 20U inject 20 U nivers aspart 2-20 Units ity of RAPID 00:00: under the [place] (NOVOLOG 00 skin in Medical U-100 the Branch INSULIN morning ASPART) 100 and 20 unit/mL Units at injection noon and 20 Units in the evening. inject before meals. insulin 2021-02 Yes [id number] 1{each} 1 Each 4 [facility] syr/ndl 2-20 (four) ity of U100 half 00:00: times [place] melvin 0.5 mL 00 daily. Use Me dical 31 gauge x with Branch 5/16" Syrg insulin 4 times daily. Dx E11.8 flash 2021-02 Yes [id number] 1{each} 1 Each Uni vers glucose 2-20 every 14 ity of sensor 00:00: (fourteen) [place] (FREESTYLE 00 days. Medical DASH 2 Branch SENSOR) Kit dulaglutide 2021-02- No [id number] .75mg inject 1 [facility] (TRULICITY) 03-31 Pen under it y of 0.75 mg/0.5 00:00: 00:00 [place] skin [place] mL PnIj 00 :00 weekly. Medical Branch dulaglutide 2021-02- No [id number] .75mg inject 1 [facility] (TRULICITY) 03-31 Pen under it y of 0.75 mg/0.5 00:00: 00:00 the skin [place] mL PnIj 00 :00 weekly. Medical Branch dulaglutide 2021-02- No [id number] .75mg inject 1 [facility] (TRULICITY) 03-31 Pen under it y of 0.75 mg/0.5 00:00: 00:00 [place] skin [place] mL PnIj 00 :00 weekly. Medical Branch dulaglutide 2021-02- No [id number] .75mg inject 1 [facility] (TRULICITY) 03-31 Pen under it y of 0.75 mg/0.5 00:00: 00:00 the skin [place] mL PnIj 00 :00 weekly. Medical Branch naproxen 2021-02 Yes 500mg Take 500 Univ ers 500 mg 1-22 mg by ity of tablet 00:00: mouth in [place] 00 the Medical morning Branch and 500 mg in the evening. Take with meals. nystatin 2021-02 Yes 1 [facility] 100,000 1-22 APPLICATIO ity of unit/gram 00:00: N [place] THE [place] cream 00 SKIN TWICE Medical A DAY Branch APPLY TO AFFECTED AREA TWICE A DAY naproxen 2021-02 Yes 500mg Take 500 Univ ers 500 mg 1-22 mg by ity of tablet 00:00: mouth in [place] 00 the Medical morning Branch and 500 mg in the evening. Take with meals. nystatin 2021-02 Yes 1 [facility] 100,000 1-22 APPLICATIO ity of unit/gram 00:00: N [place] THE [place] cream 00 SKIN TWICE Medical A DAY Branch APPLY TO AFFECTED AREA TWICE A DAY naproxen 2021-02 Yes 500mg Take 500 [facility] ers 500 mg 1-22 mg by ity of tablet 00:00: mouth in [place] 00 the Medical morning Branch and 500 mg in the evening. Take with meals. nystatin 2021-02 Yes 1 [facility] 100,000 1-22 APPLICATIO ity of unit/gram 00:00: N [place] THE [place] cream 00 SKIN TWICE Medical A DAY Branch APPLY TO AFFECTED AREA TWICE A DAY naproxen 2021-02 Yes 500mg Take 500 [facility] ers 500 mg 1-22 mg by ity of tablet 00:00: mouth in [place] 00 the Medical morning Branch and 500 mg in the evening. Take with meals. nystatin 2021-02 Yes 1 [facility] 100,000 1-22 APPLICATIO ity of unit/gram 00:00: N [place] THE [place] cream 00 SKIN TWICE Medical A DAY Branch APPLY TO AFFECTED AREA TWICE A DAY naproxen 2021-02 Yes 500mg Take 500 [facility] ers 500 mg 1-22 mg by ity of tablet 00:00: mouth in [place] 00 the Medical morning Branch and 500 mg in the evening. Take with meals. nystatin 2021-02 Yes 1 [facility] 100,000 1-22 APPLICATIO ity of unit/gram 00:00: N ON THE [place] cream 00 SKIN TWICE Medical A DAY Branch APPLY TO AFFECTED AREA TWICE A DAY naproxen 2021-02 Yes 500mg Take 500 [facility] ers 500 mg 1-22 mg by ity of tablet 00:00: mouth in [place] 00 the Medical morning Branch and 500 mg in the evening. Take with meals. nystatin 2021-02 Yes 1 [facility] 100,000 1-22 APPLICATIO ity of unit/gram 00:00: N ON THE [place] cream 00 SKIN TWICE Medical A DAY Branch APPLY TO AFFECTED AREA TWICE A DAY naproxen 2021-02 Yes 500mg Take 500 [facility] ers 500 mg 1-22 mg by ity of tablet 00:00: mouth in [place] 00 the Medical morning Branch and 500 mg in the evening. Take with meals. nystatin 2021-02 Yes 1 [facility] 100,000 1-22 APPLICATIO ity of unit/gram 00:00: N [place] THE [place] cream 00 SKIN TWICE Medical A DAY Branch APPLY TO AFFECTED AREA TWICE A DAY naproxen 2021-02 Yes 500mg Take 500 [facility] ers 500 mg 1-22 mg by ity of tablet 00:00: mouth in [place] 00 the Medical morning Branch and 500 mg in the evening. Take with meals. nystatin 2021-02 Yes 1 [facility] 100,000 1-22 APPLICATIO ity of unit/gram 00:00: N [place] THE [place] cream 00 SKIN TWICE Medical A DAY Branch APPLY TO AFFECTED AREA TWICE A DAY naproxen 2021-02 Yes 500mg Take 500 [facility] ers 500 mg 1-22 mg by ity of tablet 00:00: mouth in [place] 00 the Medical morning Branch and 500 mg in the evening. Take with meals. nystatin 2021-02 Yes 1 [facility] 100,000 1-22 APPLICATIO ity of unit/gram 00:00: N [place] THE [place] cream 00 SKIN TWICE Medical A DAY Branch APPLY TO AFFECTED AREA TWICE A DAY naproxen 2021-02 Yes 500mg Take 500 [facility] ers 500 mg 1-22 mg by ity of tablet 00:00: mouth in [place] 00 the Medical morning Branch and 500 mg in the evening. Take with meals. nystatin 2021-02 Yes 1 [facility] 100,000 1-22 APPLICATIO ity of unit/gram 00:00[facility] A DAY Branch APPLY TO AFFECTED AREA TWICE A DAY naproxen 2021-02 Yes 500mg Take 500 Univ ers 500 mg 1-22 mg by ity of tablet 00:00: mouth in [place] 00 the Medical morning Branch and 500 mg in the evening. Take with meals. nystatin 2021-02 Yes 1 [facility] 100,000 1-22 APPLICATIO ity of unit/gram 00:00: [facility] TW[facility] Medical A DAY Branch APPLY TO AFFECTED AREA TWICE A DAY naproxen 2021-02 Yes 500mg Take 500 Univ ers 500 mg 1-22 mg by ity of tablet 00:00: mouth in [place] 00 the Medical morning Branch and 500 mg in the evening. Take with meals. nystatin 2021-02 Yes 1 [facility] 100,000 1-22 APPLICATIO ity of unit/gram 00:00: [facility] TWICE Medical A DAY Branch APPLY TO AFFECTED AREA TWICE A DAY naproxen 2021-02 Yes 500mg Take 500 Univ ers 500 mg 1-22 mg by ity of tablet 00:00: mouth in [place] 00 the Medical morning Branch and 500 mg in the evening. Take with meals. nystatin 2021-02 Yes 1 [facility] 100,000 1-22 APPLICATIO ity of unit/gram 00:00: N [place] THE [place] cream 00 SKIN TWICE Medical A DAY Branch APPLY TO AFFECTED AREA TWICE A DAY naproxen 2021-02 Yes 500mg Take 500 Univ ers 500 mg 1-22 mg by ity of tablet 00:00: mouth in [place] 00 the Medical morning Branch and 500 mg in the evening. Take with meals. nystatin 2021-02 Yes 1 [facility] 100,000 1-22 APPLICATIO ity of unit/gram 00:00: N [place] THE [place] cream 00 SKIN TWICE Medical A DAY Branch APPLY TO AFFECTED AREA TWICE A DAY naproxen 2021-02 Yes 500mg Take 500 Univ ers 500 mg 1-22 mg by ity of tablet 00:00: mouth in [place] 00 the Medical morning Branch and 500 mg in the evening. Take with meals. nystatin 2021-02 Yes 1 [facility] 100,000 1-22 APPLICATIO ity of unit/gram 00:00: N [place] THE [place] cream 00 SKIN TWICE Medical A DAY Branch APPLY TO AFFECTED AREA TWICE A DAY nystatin 2021-02 Yes 1 [facility] 100,000 1-22 APPLICATIO ity of unit/gram 00:00: N [place] THE [place] cream 00 SKIN TWICE Medical A DAY Branch APPLY TO AFFECTED AREA TWICE A DAY nystatin 2021-02 Yes 1 [facility] 100,000 1-22 APPLICATIO ity of unit/gram 00:00: N [place] THE [place] cream 00 SKIN TWICE Medical A DAY Branch APPLY TO AFFECTED AREA TWICE A DAY nystatin 2021-02 Yes 1 [facility] 100,000 1-22 APPLICATIO ity of unit/gram 00:00: N [place] THE [place] cream 00 SKIN TWICE Medical A DAY Branch APPLY TO AFFECTED AREA TWICE A DAY nystatin 2021-02 Yes 1 [facility] 100,000 1-22 APPLICATIO ity of unit/gram 00:00: N [place] THE [place] cream 00 SKIN TWICE Medical A DAY Branch APPLY TO AFFECTED AREA TWICE A DAY nystatin 2021-02 Yes 1 [facility] 100,000 1-22 APPLICATIO ity of unit/gram 00:00: N [place] THE [place] cream 00 SKIN TWICE Medical A DAY Branch APPLY TO AFFECTED AREA TWICE A DAY nystatin 2021-02 Yes 1 [facility] 100,000 1-22 APPLICATIO ity of unit/gram 00:00: N [place] THE [place] cream 00 SKIN TWICE Medical A DAY Branch APPLY TO AFFECTED AREA TWICE A DAY nystatin 2021-02 Yes 1 [facility] 100,000 1-22 APPLICATIO ity of unit/gram 00:00: N [place] THE [place] cream 00 SKIN TWICE Medical A DAY Branch APPLY TO AFFECTED AREA TWICE A DAY nystatin 2021-02 Yes 1 [facility] 100,000 1-22 APPLICATIO ity of unit/gram 00:00: N [place] THE [place] cream 00 SKIN TWICE Medical A DAY Branch APPLY TO AFFECTED AREA TWICE A DAY nystatin 2021-02 Yes 1 [facility] 100,000 1-22 APPLICATIO ity of unit/gram 00:00: N [place] THE [place] cream 00 SKIN TWICE Medical A DAY Branch APPLY TO AFFECTED AREA TWICE A DAY nystatin 2021-02 Yes 1 [facility] 100,000 1-22 APPLICATIO ity of unit/gram 00:00: N [place] THE [place] cream 00 SKIN TWICE Medical A DAY Branch APPLY TO AFFECTED AREA TWICE A DAY nystatin 2021-02 Yes 1 [facility] 100,000 1-22 APPLICATIO ity of unit/gram 00:00: N [place] THE [place] cream 00 SKIN TWICE Medical A DAY Branch APPLY TO AFFECTED AREA TWICE A DAY nystatin 2021-02 Yes 1 [facility] 100,000 1-22 APPLICATIO ity of unit/gram 00:00: N [place] THE [place] cream 00 SKIN TWICE Medical A DAY Branch APPLY TO AFFECTED AREA TWICE A DAY nystatin 2021-02 Yes 1 [facility] 100,000 1-22 APPLICATIO ity of unit/gram 00:00: N [place] THE [place] cream 00 SKIN TWICE Medical A DAY Branch APPLY TO AFFECTED AREA TWICE A DAY nystatin 2021-02 Yes 1 [facility] 100,000 1-22 APPLICATIO ity of unit/gram 00:00: N [place] THE [place] cream 00 SKIN TWICE Medical A DAY Branch APPLY TO AFFECTED AREA TWICE A DAY naproxen 2021-02- No 500mg Take 500 Uni vers 500 mg 03-02 04-14 mg by ity of tablet 00:00: 00:00 mouth in [place] 00 :00 the Medical morning Branch and 500 mg in the evening. Take with meals. naproxen 2021-02- No 500mg Take 500 Uni vers 500 mg 03-02 04-14 mg by ity of tablet 00:00: 00:00 mouth in [place] 00 :00 the Medical morning Branch and 500 mg in the evening. Take with meals. bromphenira 2021-0 2- No [id number] 10mL Take 10 mL [facility] mine-pseudo 10-10 by mouth 4 i ty of ephedrine-D 00:00: 04:59 (four) [place] as M 30-10 00 :00 times Medical mg/5 mL daily as Branch syrup needed for Congestion /Allergies for up to 7 days. clindamycin 2-0 Yes Univer s 300 mg 8-30 ity of capsule 00:00: [place] [facility] ibuprofen 2022-0 Yes [facility] 800 mg 8-30 ity of tablet 00:00: [place] [facility] clindamycin 2022-0 Yes Univer s 300 mg 8-30 ity of capsule 00:00: [place] [facility] ibuprofen 2022-0 Yes [facility] 800 mg 8-30 ity of tablet 00:00: [place] [facility] clindamycin 2022-0 Yes Univer s 300 mg 8-30 ity of capsule 00:00: [place] [facility] ibuprofen 2022-0 Yes [facility] 800 mg 8-30 ity of tablet 00:00: [place] [facility] clindamycin 2022-0 Yes Univer s 300 mg 8-30 ity of capsule 00:00: [place] [facility] ibuprofen 2022-0 Yes [facility] 800 mg 8-30 ity of tablet 00:00: [place] [facility] clindamycin 2022-0 Yes Univer s 300 mg 8-30 ity of capsule 00:00: [place] [facility] ibuprofen 2022-0 Yes [facility] 800 mg 8-30 ity of tablet 00:00: [place] [facility] clindamycin 2022-0 Yes Univer s 300 mg 8-30 ity of capsule 00:00: [place] [facility] ibuprofen 2022-0 Yes [facility] 800 mg 8-30 ity of tablet 00:00: [place] [facility] clindamycin 2022-0 Yes Univer s 300 mg 8-30 ity of capsule 00:00: [place] [facility] ibuprofen 2022-0 Yes [facility] 800 mg 8-30 ity of tablet 00:00: [place] [facility] clindamycin 2022-0 Yes Univer s 300 mg 8-30 ity of capsule 00:00: [place] [facility] ibuprofen 2022-0 Yes [facility] 800 mg 8-30 ity of tablet 00:00: [place] 00 Medical Branch clindamycin 2022-0 Yes Univer s 300 mg 8-30 ity of capsule 00:00: [place] 00 Medical Branch ibuprofen 2022-0 Yes [facility] 800 mg 8-30 ity of tablet 00:00: [place] 00 Medical Branch clindamycin 2022-0 Yes Univer s 300 mg 8-30 ity of capsule 00:00: [place] [facility] ibuprofen 2022-0 Yes [facility] 800 mg 8-30 ity of tablet 00:00: [place] 00 Medical Branch clindamycin 2022-0 Yes Univer s 300 mg 8-30 ity of capsule 00:00: [place] [facility] ibuprofen 2022-0 Yes [facility] 800 mg 8-30 ity of tablet 00:00: [place] [facility] clindamycin 2022-0 Yes Univer s 300 mg 8-30 ity of capsule 00:00: [place] [facility] ibuprofen 2022-0 Yes [facility] 800 mg 8-30 ity of tablet 00:00: [place] [facility] clindamycin 2022-0 Yes Univer s 300 mg 8-30 ity of capsule 00:00: [place] [facility] ibuprofen 2022-0 Yes [facility] 800 mg 8-30 ity of tablet 00:00: [place] [facility] clindamycin 2022-0 Yes Univer s 300 mg 8-30 ity of capsule 00:00: [place] [id number] Medical Branch ibuprofen 2022-0 Yes [facility] 800 mg 8-30 ity of tablet 00:00: [place] [facility] clindamycin 2022-0 Yes Univer s 300 mg 8-30 ity of capsule 00:00: [place] [facility] ibuprofen 2022-0 Yes [facility] 800 mg 8-30 ity of tablet 00:00: [place] [facility] clindamycin 2022-0 Yes Univer s 300 mg 8-30 ity of capsule 00:00: [place] [id number] Medical Branch ibuprofen 2022-0 Yes [facility] 800 mg 8-30 ity of tablet 00:00: [place] [facility] clindamycin 2022-0 Yes Univer s 300 mg 8-30 ity of capsule 00:00: [place] [facility] ibuprofen 2022-0 Yes [facility] 800 mg 8-30 ity of tablet 00:00: [place] [facility] clindamycin 2022-0 Yes Univer s 300 mg 8-30 ity of capsule 00:00: [place] 00 Medical Branch ibuprofen 2022-0 Yes [facility] 800 mg 8-30 ity of tablet 00:00: [place] 00 Medical Branch clindamycin 2022-0 Yes Univer s 300 mg 8-30 ity of capsule 00:00: [place] 00 Medical Branch ibuprofen 2022-0 Yes [facility] 800 mg 8-30 ity of tablet 00:00: [place] [facility] clindamycin 2022-0 Yes Univer s 300 mg 8-30 ity of capsule 00:00: [place] 00 Medical Branch ibuprofen 2022-0 Yes [facility] 800 mg 8-30 ity of tablet 00:00: [place] [facility] clindamycin 2022-0 Yes Univer s 300 mg 8-30 ity of capsule 00:00: [place] [id number] Medical Branch ibuprofen 2022-0 Yes [facility] 800 mg 8-30 ity of tablet 00:00: [place] [address] Medical Branch clindamycin 2022-0 Yes Univer s 300 mg 8-30 ity of capsule 00:00: [place] [address] Medical Branch ibuprofen 2022-0 Yes [facility] 800 mg 8-30 ity of tablet 00:00: [place] [address] Medical Branch clindamycin 2022-0 Yes Univer s 300 mg 8-30 ity of capsule 00:00: [place] [address] Medical Branch ibuprofen 2022-0 Yes [facility] 800 mg 8-30 ity of tablet 00:00: [place] [address] Medical Branch clindamycin 2022-0 Yes Univer s 300 mg 8-30 ity of capsule 00:00: [place] [address] Medical Branch clindamycin 2022-0 Yes Univer s 300 mg 8-30 ity of capsule 00:00: [place] [facility] clindamycin 2022-0 Yes Univer s 300 mg 8-30 ity of capsule 00:00: [place] [address] Medical Branch clindamycin 2022-0 Yes Univer s 300 mg 8-30 ity of capsule 00:00: [place] [address] Medical Branch clindamycin 2022-0 Yes Univer s 300 mg 8-30 ity of capsule 00:00: [place] [address] Medical Branch clindamycin 2022-0 Yes Univer s 300 mg 8-30 ity of capsule 00:00: [place] [address] Medical Branch clindamycin 2022-0 Yes Univer s 300 mg 8-30 ity of capsule 00:00: [place] [facility] clindamycin 2022-0 Yes Univer s 300 mg 8-30 ity of capsule 00:00: [place] 00 Medical Branch clindamycin 2022-0 Yes Univer s 300 mg 8-30 ity of capsule 00:00: [place] 00 Medical Branch clindamycin 2022-0 Yes Univer s 300 mg 8-30 ity of capsule 00:00: [place] 00 Medical Branch clindamycin 2022-0 Yes Univer s 300 mg 8-30 ity of capsule 00:00: [place] 00 Medical Branch clindamycin 2022-0 Yes Univer s 300 mg 8-30 ity of capsule 00:00: [place] 00 Medical Branch clindamycin 2022-0 Yes Univer s 300 mg 8-30 ity of capsule 00:00: [place] [address] Medical Branch clindamycin 2022-0 Yes Univer s 300 mg 8-30 ity of capsule 00:00: [place] [address] Medical Branch clindamycin 2022-0 Yes Univer s 300 mg 8-30 ity of capsule 00:00: [place] [address] Medical Branch clindamycin 2022-0 Yes Univer s 300 mg 8-30 ity of capsule 00:00: [place] [address] Medical Branch clindamycin 2022-0 Yes Univer s 300 mg 8-30 ity of capsule 00:00: [place] [address] Medical Branch clindamycin 2022-0 Yes Univer s 300 mg 8-30 ity of capsule 00:00: [place] 00 Medical Branch clindamycin 2022-0 Yes Univer s 300 mg 8-30 ity of capsule 00:00: [place] [address] Medical Branch clindamycin 2022-0 Yes Univer s 300 mg 8-30 ity of capsule 00:00: [place] 00 Medical Branch clindamycin 2022-0 Yes Univer s 300 mg 8-30 ity of capsule 00:00: [place] 00 Medical Branch clindamycin 2022-0 Yes Univer s 300 mg 8-30 ity of capsule 00:00: [place] [address] Medical Branch clindamycin 2022-0 Yes Univer s 300 mg 8-30 ity of capsule 00:00: [place] 00 Medical Branch clindamycin 2022-0 2023- No Unive rs 300 mg 8-30 04-14 ity of capsule 00:00: 00:00 [place] 00 :00 Medical Branch clindamycin 2022-0 3- No Unive rs 300 mg 8-30 04-14 ity of capsule 00:00: 00:00 [place] 00 :00 Medical Branch ibuprofen 2022-0 3- No [facility] 800 mg 10-08 ity of tablet 00:00: 00:00 [place] 00 :00 Medical Branch ibuprofen 2022-0 3- No [facility] 800 mg 10-08 ity of tablet 00:00: 00:00 [place] 00 :00 Medical Branch ibuprofen 2022-0 3- No [facility] 800 mg 10-08 ity of tablet 00:00: 00:00 [place] 00 :00 Medical Branch blood sugar 2021-0 Yes Use to [employer] ers diagnostic 5-26 check ity of (TRUE 00:00: blood [place] METRIX 00 sugar 3X Medical GLUCOSE daily. Branch TEST STRIP) DX:E11.8 strip Blood-Gluco 2021-0 Yes Use to [employer] ers se Meter 5-26 check ity of (TRUE 00:00: blood [place] METRIX 00 sugar 3X Medical GLUCOSE daily. Branch METER) Kit DX:E11.8 blood sugar Yes Use to [facility] ers diagnostic 5-26 check ity of (TRUE 00:00: blood [place] METRIX 00 sugar 3X Medical GLUCOSE daily. Branch TEST STRIP) DX:E11.8 strip Blood-Gluco 2021-0 Yes Use to [employer] ers se Meter 5-26 check ity of (TRUE 00:00: blood [place] METRIX 00 sugar 3X Medical GLUCOSE daily. Branch METER) Kit DX:E11.8 blood sugar Yes Use to [facility] ers diagnostic 5-26 check ity of (TRUE 00:00: blood [place] METRIX 00 sugar 3X Medical GLUCOSE daily. Branch TEST STRIP) DX:E11.8 strip Blood-Gluco 2021-0 Yes Use to Univ ers se Meter 5-26 check ity of (TRUE 00:00: blood [place] METRIX 00 sugar 3X Medical GLUCOSE daily. Branch METER) Kit DX:E11.8 blood sugar 0 Yes Use to [facility] ers diagnostic 5-26 check ity of (TRUE 00:00: blood [place] METRIX 00 sugar 3X Medical GLUCOSE daily. Branch TEST STRIP) DX:E11.8 strip Blood-Gluco 2021-0 Yes Use to Univ ers se Meter 5-26 check ity of (TRUE 00:00: blood [...] sugar Yes Use to Univ ers diagnostic 07-04 check ity of (TRUE 00:00: blood [place] METRIX 00 sugar 3X Medical GLUCOSE daily. Branch TEST STRIP) DX:E11.8 strip Blood-Gluco Yes Use to Univ ers se Meter 07-04 check ity of (TRUE 00:00: blood [place] METRIX 00 sugar 3X Medical GLUCOSE daily. Branch METER) Kit DX:E11.8 blood sugar Yes Use to Univ ers diagnostic 07-04 check ity of (TRUE 00:00: blood [place] METRIX 00 sugar 3X Medical GLUCOSE daily. Branch TEST STRIP) DX:E11.8 strip Blood-Gluco Yes Use to Univ ers se Meter 07-04 check ity of (TRUE 00:00: blood [place] METRIX 00 sugar 3X Medical GLUCOSE daily. Branch METER) Kit DX:E11.8 blood sugar Yes Use to [facility] ers diagnostic 07-04 check ity of (TRUE [...] daily. Branch METER) Kit DX:E11.8 blood sugar 0 Yes Use to [facility] ers diagnostic - [...] daily. Branch METER) Kit DX:E11.8 blood sugar 0 Yes Use to [facility] ers diagnostic - check ity of (TRUE 00:00: blood [place] METRIX 00 sugar 3X Medical GLUCOSE daily. Branch TEST STRIP) DX:E11.8 strip Blood-Gluco 2021-0 Yes Use to Univ ers se Meter 07-04 check ity of (TRUE 00:00: blood [place] METRIX 00 sugar 3X Medical GLUCOSE daily. Branch METER) Kit DX:E11.8 blood sugar 0 Yes Use to [facility] ers diagnostic - [...] daily. Branch METER) Kit DX:E11.8 blood sugar 0 Yes Use to [facility] ers diagnostic - check ity of (TRUE 00:00: blood [place] METRIX 00 sugar 3X Medical GLUCOSE daily. Branch TEST STRIP) DX:E11.8 strip Blood-Gluco 2021-0 Yes Use to [facility] ers se Meter - check ity of (TRUE 00:00: blood [place] METRIX 00 sugar 3X Medical GLUCOSE daily. Branch METER) Kit DX:E11.8 blood sugar 0 Yes Use to [facility] ers diagnostic - [...] daily. Branch METER) Kit DX:E11.8 blood sugar 0 Yes Use to [facility] ers diagnostic - [...] sugar Yes Use to [facility] ers diagnostic 07-04 check ity of (TRUE [...] sugar Yes Use to [facility] ers diagnostic 07-04 check ity of (TRUE 00:00: blood [place] METRIX 00 sugar 3X Medical GLUCOSE daily. Branch TEST STRIP) DX:E11.8 strip Blood-Gluco Yes Use to Univ ers se Meter 07-04 check ity of (TRUE 00:00: blood [place] METRIX 00 sugar 3X Medical GLUCOSE daily. Branch METER) Kit DX:E11.8 blood sugar Yes Use to [facility] ers diagnostic 07-04 check ity of (TRUE [...] daily. Branch METER) Kit DX:E11.8 blood sugar 0 Yes Use to [facility] ers diagnostic - [...] daily. Branch METER) Kit DX:E11.8 blood sugar 0 Yes Use to [facility] ers diagnostic - check ity of (TRUE 00:00: blood [place] METRIX 00 sugar 3X Medical GLUCOSE daily. Branch TEST STRIP) DX:E11.8 strip Blood-Gluco 2021-0 Yes Use to Univ ers se Meter - check ity of (TRUE 00:00: blood [place] METRIX 00 sugar 3X Medical GLUCOSE daily. Branch METER) Kit DX:E11.8 blood sugar 0 Yes Use to Univ ers diagnostic - check ity of (TRUE 00:00: blood [place] METRIX 00 sugar 3X Medical GLUCOSE daily. Branch TEST STRIP) DX:E11.8 strip Blood-Gluco 2021-0 Yes Use to Univ ers se Meter - check ity of (TRUE 00:00: blood [place] METRIX 00 sugar 3X Medical GLUCOSE daily. Branch METER) Kit DX:E11.8 blood sugar 0 Yes Use to Univ ers diagnostic - [...] daily. Branch METER) Kit DX:E11.8 blood sugar 0 Yes Use to Univ ers diagnostic - check ity of (TRUE 00:00: blood [place] METRIX 00 sugar 3X Medical GLUCOSE daily. Branch TEST STRIP) DX:E11.8 strip Blood-Gluco 2021-0 Yes Use to Univ ers se Meter - check ity of (TRUE 00:00: blood [place] METRIX 00 sugar 3X Medical GLUCOSE daily. Branch METER) Kit DX:E11.8 blood sugar Yes Use to Univ ers diagnostic 5- check ity of (TRUE 00:00: blood [place] METRIX 00 sugar 3X Medical GLUCOSE daily. Branch TEST STRIP) DX:E11.8 strip Blood-Gluco 0 Yes Use to [facility] se Meter - check ity of (TRUE 00:00: blood [place] METRIX 00 sugar 3X Medical GLUCOSE daily. Branch METER) Kit DX:E11.8 blood sugar Yes Use to [facility] diagnostic 5- check ity of (TRUE 00:00: blood [place] [...] sugar Yes Use to [facility] diagnostic 5- check ity of (TRUE 00:00: blood [place] METRIX 00 sugar 3X Medical GLUCOSE daily. Branch TEST STRIP) DX:E11.8 strip Blood-Gluco 2021-0 Yes Use to [facility] se Meter - check ity of (TRUE 00:00: blood [place] METRIX 00 sugar 3X Medical GLUCOSE daily. Branch METER) Kit DX:E11.8 blood sugar 2021-0 Yes Use to [facility] diagnostic - check ity of (TRUE 00:00: blood [place] METRIX 00 sugar 3X Medical GLUCOSE daily. Branch TEST STRIP) DX:E11.8 strip Blood-Gluco 2021-0 Yes Use to [facility] se Meter 07-04 check ity of (TRUE 00:00: blood [place] METRIX 00 sugar 3X Medical GLUCOSE daily. Branch METER) Kit DX:E11.8 blood sugar 0 Yes Use to [facility] diagnostic 07-04 check ity of (TRUE 00:00: blood [place] METRIX 00 sugar 3X Medical GLUCOSE daily. Branch TEST STRIP) DX:E11.8 strip Blood-Gluco 2021-0 Yes Use to [facility] se Meter 07-04 check ity of (TRUE 00:00: blood [place] METRIX 00 sugar 3X Medical GLUCOSE daily. Branch METER) Kit DX:E11.8 blood sugar Yes Use to [facility] diagnostic 07-04 check ity of (TRUE 00:00: blood [place] METRIX 00 sugar 3X Medical GLUCOSE daily. Branch TEST STRIP) DX:E11.8 strip Blood-Gluco 2021-0 Yes Use to [facility] se Meter 07-04 check ity of (TRUE 00:00: blood [place] METRIX 00 sugar 3X Medical GLUCOSE daily. Branch METER) Kit DX:E11.8 blood sugar 0 Yes Use to [facility] diagnostic 07-04 check ity of (TRUE 00:00: blood [place] METRIX 00 sugar 3X Medical GLUCOSE daily. Branch TEST STRIP) DX:E11.8 strip Blood-Gluco 2021-0 Yes Use to [facility] se Meter 07-04 check ity of (TRUE 00:00: blood [place] METRIX 00 sugar 3X Medical GLUCOSE daily. Branch METER) Kit DX:E11.8 blood sugar 0 Yes Use to [facility] diagnostic - check ity of (TRUE 00:00: blood [place] METRIX 00 sugar 3X Medical GLUCOSE daily. Branch TEST STRIP) DX:E11.8 strip Blood-Gluco 2021-0 Yes Use to [facility] se Meter 07-04 check ity of (TRUE 00:00: blood [place] METRIX 00 sugar 3X Medical GLUCOSE daily. Branch METER) Kit DX:E11.8 blood sugar 2022-0 Yes Use to [facility] diagnostic 5- check ity of (TRUE 00:00: blood [place] METRIX 00 sugar 3X Medical GLUCOSE daily. Branch TEST STRIP) DX:E11.8 strip Blood-Gluco 0 Yes Use to [facility] se Meter 07-04 check ity of (TRUE 00:00: blood [place] METRIX 00 sugar 3X Medical GLUCOSE daily. Branch METER) Kit DX:E11.8 blood sugar Yes Use to [facility] diagnostic 07-04 check ity of (TRUE 00:00: blood [place] METRIX 00 sugar 3X Medical GLUCOSE daily. Branch TEST STRIP) DX:E11.8 strip Blood-Gluco Yes Use to [facility] se Meter 07-04 check ity of (TRUE 00:00: blood [place] METRIX 00 sugar 3X Medical GLUCOSE daily. Branch METER) Kit DX:E11.8 blood sugar Yes Use to [facility] diagnostic 07-04 check ity of (TRUE 00:00: blood [place] METRIX 00 sugar 3X Medical GLUCOSE daily. Branch TEST STRIP) DX:E11.8 strip Blood-Gluco Yes Use to [facility] se Meter 07-04 check ity of (TRUE 00:00: blood [place] METRIX 00 sugar 3X Medical GLUCOSE daily. Branch METER) Kit DX:E11.8 blood sugar Yes Use to [facility] diagnostic 07-04 check ity of (TRUE 00:00: blood [place] METRIX 00 sugar 3X Medical GLUCOSE daily. Branch TEST STRIP) DX:E11.8 strip Blood-Gluco Yes Use to [facility] se Meter 07-04 check ity of (TRUE 00:00: blood [place] METRIX 00 sugar 3X Medical GLUCOSE daily. Branch METER) Kit DX:E11.8 blood sugar Yes Use to [facility] diagnostic 07-04 check ity of (TRUE 00:00: blood [place] METRIX 00 sugar 3X Medical GLUCOSE daily. Branch TEST STRIP) DX:E11.8 strip Blood-Gluco 2021-0 Yes Use to [facility] se Meter 07-04 check ity of (TRUE 00:00: blood [place] METRIX 00 sugar 3X Medical GLUCOSE daily. Branch METER) Kit DX:E11.8 blood sugar Yes Use to [facility] diagnostic 07-04 check ity of (TRUE 00:00: blood [place] METRIX 00 sugar 3X Medical GLUCOSE daily. Branch TEST STRIP) DX:E11.8 strip Blood-Gluco Yes Use to [facility] se Meter 5- check ity of (TRUE 00:00: blood [place] METRIX 00 sugar 3X Medical GLUCOSE daily. Branch METER) Kit DX:E11.8 Insulin Yes [id number] Use as [facility] [place], 5-24 directed ity of Disposable, 00:00: to inject [place] (PEN 00 insulin Medical NEEDLE) 31 four times Bra nch gauge x daily for 06/24" Ndle E11.8 Insulin Yes [id number] Use as [facility] [place], 5-24 directed ity of Disposable, 00:00: to inject [place] (PEN 00 insulin Medical NEEDLE) 31 four times Bra nch gauge x daily for 06/24" Ndle E11.8 Insulin Yes [id number] Use as [facility] [place], 5-24 directed ity of Disposable, 00:00: to inject [place] (PEN 00 insulin Medical NEEDLE) 31 four times Bra nch gauge x daily for 06/24" Ndle E11.8 Insulin Yes [id number] Use as [facility] [place], 5-24 directed ity of Disposable, 00:00: to inject [place] (PEN 00 insulin Medical NEEDLE) 31 four times Bra nch gauge x daily for 06/24" Ndle E11.8 Insulin Yes [id number] Use as [facility] [place], 5-24 directed ity of Disposable, 00:00: to inject [place] (PEN 00 insulin Medical NEEDLE) 31 four times Bra nch gauge x daily for 06/24" Ndle E11.8 Insulin Yes [id number] Use as [facility] [place], 5-24 directed ity of Disposable, 00:00: to inject [place] (PEN 00 insulin Medical NEEDLE) 31 four times Bra nch gauge x daily for 06/24" Ndle E11.8 Insulin Yes [id number] Use as [facility] [place], 5-24 directed ity of Disposable, 00:00: to inject [place] (PEN 00 insulin Medical NEEDLE) 31 four times Bra nch gauge x daily for 06/24" Ndle E11.8 Insulin Yes [id number] Use as [facility] [place], 5-24 directed ity of Disposable, 00:00: to inject [place] (PEN 00 insulin Medical NEEDLE) 31 four times Bra nch gauge x daily for 06/24" Ndle E11.8 Insulin Yes [id number] Use as [facility] [place], 524 directed ity of Disposable, 00:00: to inject [place] (PEN 00 insulin Medical NEEDLE) 31 four times Bra nch gauge x daily for 06/24" Ndle E11.8 Insulin Yes [id number] Use as [facility] [place], 07-02 directed ity of Disposable, 00:00: to inject [place] (PEN 00 insulin Medical NEEDLE) 31 four times Bra nch gauge x daily for 06/24" Ndle E11.8 Insulin Yes [id number] Use as [facility] [place], 07-02 directed ity of Disposable, 00:00: to inject [place] (PEN 00 insulin Medical NEEDLE) 31 four times Bra nch gauge x daily for 06/24" Ndle E11.8 Insulin Yes [id number] Use as [facility] [place], 07-02 directed ity of Disposable, 00:00: to inject [place] (PEN 00 insulin Medical NEEDLE) 31 four times Bra nch gauge x daily for 06/24" Ndle E11.8 Insulin Yes [id number] Use as [facility] [place], 07-02 directed ity of Disposable, 00:00: to inject [place] (PEN 00 insulin Medical NEEDLE) 31 four times Bra nch gauge x daily for 06/24" Ndle E11.8 Insulin Yes [id number] Use as [facility] [place], - directed ity of Disposable, 00:00: to inject [place] (PEN 00 insulin Medical NEEDLE) 31 four times Bra nch gauge x daily for 06/24" Ndle E11.8 Insulin Yes [id number] Use as [facility] [place], -24 directed ity of Disposable, 00:00: to inject [place] (PEN 00 insulin Medical NEEDLE) 31 four times Bra nch gauge x daily for 06/24" Ndle E11.8 Insulin Yes [id number] Use as [facility] [place], -24 directed ity of Disposable, 00:00: to inject [place] (PEN 00 insulin Medical NEEDLE) 31 four times Bra nch gauge x daily for 06/24" Ndle E11.8 Insulin Yes [id number] Use as [facility] [place], 5-24 directed ity of Disposable, 00:00: to inject [place] (PEN 00 insulin Medical NEEDLE) 31 four times Bra nch gauge x daily for 06/24" Ndle E11.8 Insulin Yes [id number] Use as [facility] [place], 5-24 directed ity of Disposable, 00:00: to inject [place] (PEN 00 insulin Medical NEEDLE) 31 four times Bra nch gauge x daily for 06/24" Ndle E11.8 Insulin Yes [id number] Use as [facility] [place], 5-24 directed ity of Disposable, 00:00: to inject [place] (PEN 00 insulin Medical NEEDLE) 31 four times Bra nch gauge x daily for 06/24" Ndle E11.8 Insulin Yes [id number] Use as [facility] [place], 5-24 directed ity of Disposable, 00:00: to inject [place] (PEN 00 insulin Medical NEEDLE) 31 four times Bra nch gauge x daily for 06/24" Ndle E11.8 Insulin Yes [id number] Use as [facility] [place], 5-24 directed ity of Disposable, 00:00: to inject [place] (PEN 00 insulin Medical NEEDLE) 31 four times Bra nch gauge x daily for 06/24" Ndle E11.8 Insulin Yes [id number] Use as [facility] [place], 5-24 directed ity of Disposable, 00:00: to inject [place] (PEN 00 insulin Medical NEEDLE) 31 four times Bra nch gauge x daily for 06/24" Ndle E11.8 Insulin Yes [id number] Use as [facility] [place], 5-24 directed ity of Disposable, 00:00: to inject [place] (PEN 00 insulin Medical NEEDLE) 31 four times Bra nch gauge x daily for 06/24" Ndle E11.8 Insulin Yes [id number] Use as [facility] [place], 5-24 directed ity of Disposable, 00:00: to inject [place] (PEN 00 insulin Medical NEEDLE) 31 four times Bra nch gauge x daily for 06/24" Ndle E11.8 Insulin Yes [id number] Use as [facility] [place], 5-24 directed ity of Disposable, 00:00: to inject [place] (PEN 00 insulin Medical NEEDLE) 31 four times Bra nch gauge x daily for 06/24" Ndle E11.8 Insulin Yes [id number] Use as [facility] [place], 5-24 directed ity of Disposable, 00:00: to inject [place] (PEN 00 insulin Medical NEEDLE) 31 four times Bra nch gauge x daily for 06/24" Ndle E11.8 Insulin Yes [id number] Use as [facility] [place], 5-24 directed ity of Disposable, 00:00: to inject [place] (PEN 00 insulin Medical NEEDLE) 31 four times Bra nch gauge x daily for 06/24" Ndle E11.8 Insulin Yes [id number] Use as [facility] [place], 5-24 directed ity of Disposable, 00:00: to inject [place] (PEN 00 insulin Medical NEEDLE) 31 four times Bra nch gauge x daily for 06/24" Ndle E11.8 Insulin Yes [id number] Use as [facility] [place], 5-24 directed ity of Disposable, 00:00: to inject [place] (PEN 00 insulin Medical NEEDLE) 31 four times Bra nch gauge x daily for 06/24" Ndle E11.8 Insulin Yes [id number] Use as [facility] [place], 5-24 directed ity of Disposable, 00:00: to inject [place] (PEN 00 insulin Medical NEEDLE) 31 four times Bra nch gauge x daily for 06/24" Ndle E11.8 Insulin Yes [id number] Use as [facility] [place], 5-24 directed ity of Disposable, 00:00: to inject [place] (PEN 00 insulin Medical NEEDLE) 31 four times Bra nch gauge x daily for 06/24" Ndle E11.8 Insulin Yes [id number] Use as [facility] [place], 5-24 directed ity of Disposable, 00:00: to inject [place] (PEN 00 insulin Medical NEEDLE) 31 four times Bra nch gauge x daily for 06/24" Ndle E11.8 Insulin Yes [id number] Use as [facility] [place], 5-24 directed ity of Disposable, 00:00: to inject [place] (PEN 00 insulin Medical NEEDLE) 31 four times Bra nch gauge x daily for 06/24" Ndle E11.8 Insulin Yes [id number] Use as [facility] [place], 5-24 directed ity of Disposable, 00:00: to inject [place] (PEN 00 insulin Medical NEEDLE) 31 four times Bra nch gauge x daily for 06/24" Ndle E11.8 Insulin Yes [id number] Use as [facility] [place], 5-24 directed ity of Disposable, 00:00: to inject [place] (PEN 00 insulin Medical NEEDLE) 31 four times Bra nch gauge x daily for 06/24" Ndle E11.8 Insulin Yes [id number] Use as [facility] [place], 5-24 directed ity of Disposable, 00:00: to inject [place] (PEN 00 insulin Medical NEEDLE) 31 four times Bra nch gauge x daily for 06/24" Ndle E11.8 Insulin Yes [id number] Use as [facility] [place], 5-24 directed ity of Disposable, 00:00: to inject [place] (PEN 00 insulin Medical NEEDLE) 31 four times Bra nch gauge x daily for 06/24" Ndle E11.8 Insulin Yes [id number] Use as [facility] [place], 5-24 directed ity of Disposable, 00:00: to inject [place] (PEN 00 insulin Medical NEEDLE) 31 four times Bra nch gauge x daily for 06/24" Ndle E11.8 Insulin Yes [id number] Use as [facility] [place], 5-24 directed ity of Disposable, 00:00: to inject [place] (PEN 00 insulin Medical NEEDLE) 31 four times Bra nch gauge x daily for 06/24" Ndle E11.8 Insulin Yes [id number] Use as [facility] [place], 5-24 directed ity of Disposable, 00:00: to inject [place] (PEN 00 insulin Medical NEEDLE) 31 four times Bra nch gauge x daily for 06/24" Ndle E11.8 Insulin Yes [id number] Use as [facility] [place], 5-24 directed ity of Disposable, 00:00: to inject [place] (PEN 00 insulin Medical NEEDLE) 31 four times Bra nch gauge x daily for 06/24" Ndle E11.8 Insulin Yes [id number] Use as [facility] [place], 5-24 directed ity of Disposable, 00:00: to inject [place] (PEN 00 insulin Medical NEEDLE) 31 four times Bra nch gauge x daily for 06/24" Ndle E11.8 Insulin Yes [id number] Use as [facility] [place], 5-24 directed ity of Disposable, 00:00: to inject [place] (PEN 00 insulin Medical NEEDLE) 31 four times Bra nch gauge x daily for 06/24" Ndle E11.8 Insulin Yes [id number] Use as [facility] [place], 5-24 directed ity of Disposable, 00:00: to inject [place] (PEN 00 insulin Medical NEEDLE) 31 four times Bra nch gauge x daily for 06/24" Ndle E11.8 Insulin Yes [id number] Use as [facility] [place], 5-24 directed ity of Disposable, 00:00: to inject [place] (PEN 00 insulin Medical NEEDLE) 31 four times Bra nch gauge x daily for 06/24" Ndle E11.8 Insulin Yes [id number] Use as [facility] [place], 5-24 directed ity of Disposable, 00:00: to inject [place] (PEN 00 insulin Medical NEEDLE) 31 four times Bra nch gauge x daily for 06/24" Ndle E11.8 Insulin Yes [id number] Use as [facility] [place], 5-24 directed ity of Disposable, 00:00: to inject [place] (PEN 00 insulin Medical NEEDLE) 31 four times Bra nch gauge x daily for 06/24" Ndle E11.8 Insulin Yes [id number] Use as [facility] [place], 5-24 directed ity of Disposable, 00:00: to inject [place] (PEN 00 insulin Medical NEEDLE) 31 four times Bra nch gauge x daily for 06/24" Ndle E11.8 Insulin Yes [id number] Use as [facility] [place], 5-24 directed ity of Disposable, 00:00: to inject [place] (PEN 00 insulin Medical NEEDLE) 31 four times Bra nch gauge x daily for 06/24" Ndle E11.8 Insulin Yes [id number] Use as [facility] [place], 5-24 directed ity of Disposable, 00:00: to inject [place] (PEN 00 insulin Medical NEEDLE) 31 four times Bra nch gauge x daily for 06/24" Ndle E11.8 Insulin Yes [id number] Use as [facility] [place], 5-24 directed ity of Disposable, 00:00: to inject [place] (PEN 00 insulin Medical NEEDLE) 31 four times Bra nch gauge x daily for 06/24" Ndle E11.8 Insulin Yes [id number] Use as [facility] [place], 5-24 directed ity of Disposable, 00:00: to inject [place] (PEN 00 insulin Medical NEEDLE) 31 four times Bra nch gauge x daily for 06/24" Ndle E11.8 Insulin Yes [id number] Use as [facility] [place], 5-24 directed ity of Disposable, 00:00: to inject [place] (PEN 00 insulin Medical NEEDLE) 31 four times Bra nch gauge x daily for 06/24" Ndle E11.8 Insulin Yes [id number] Use as [facility] [place], 5-24 directed ity of Disposable, 00:00: to inject [place] (PEN 00 insulin Medical NEEDLE) 31 four times Bra nch gauge x daily for 06/24" Ndle E11.8 Insulin Yes [id number] Use as [facility] [place], 5-24 directed ity of Disposable, 00:00: to inject [place] (PEN 00 insulin Medical NEEDLE) 31 four times Bra nch gauge x daily for 06/24" Ndle E11.8 Insulin Yes [id number] Use as [facility] [place], 5-24 directed ity of Disposable, 00:00: to inject [place] (PEN 00 insulin Medical NEEDLE) 31 four times Bra nch gauge x daily for 06/24" Ndle E11.8 Insulin Yes [id number] Use as [facility] [place], 5-24 directed ity of Disposable, 00:00: to inject [place] (PEN 00 insulin Medical NEEDLE) 31 four times Bra nch gauge x daily for 06/24" Ndle E11.8 Insulin Yes [id number] Use as [facility] [place], 5-24 directed ity of Disposable, 00:00: to inject [place] (PEN 00 insulin Medical NEEDLE) 31 four times Bra nch gauge x daily for 06/24" Ndle E11.8 Insulin Yes [id number] Use as [facility] [place], 5-24 directed ity of Disposable, 00:00: to inject [place] (PEN 00 insulin Medical NEEDLE) 31 four times Bra nch gauge x daily for 06/24" Ndle E11.8 Insulin Yes [id number] Use as [facility] [place], 5-24 directed ity of Disposable, 00:00: to inject [place] (PEN 00 insulin Medical NEEDLE) 31 four times Bra nch gauge x daily for 06/24" Ndle E11.8 Insulin Yes [id number] Use as [facility] [place], 5-24 directed ity of Disposable, 00:00: to inject [place] (PEN 00 insulin Medical NEEDLE) 31 four times Bra nch gauge x daily for 06/24" Ndle E11.8 Insulin Yes [id number] Use as [facility] [place], 5-24 directed ity of Disposable, 00:00: to inject [place] (PEN 00 insulin Medical NEEDLE) 31 four times Bra nch gauge x daily for 06/24" Ndle E11.8 metFORMIN 2021-0 Yes [id number] 1000mg Take 2 [facility] 500 mg 24 5-23 tablets by ity of hr tablet 00:00: mouth (two) Medical times Branch daily with meals. metFORMIN 2021-0 Yes [id number] 1000mg Take 2 [facility] 500 mg 24 5-23 tablets by ity of hr tablet 00:00: mouth (two) Medical times Branch daily with meals. metFORMIN 2021-0 Yes [id number] 1000mg Take 2 [facility] 500 mg 24 5-23 tablets by ity of hr tablet 00:00: mouth (two) Medical times Branch daily with meals. metFORMIN 2021-0 Yes [id number] 1000mg Take 2 [facility] 500 mg 24 5-23 tablets by ity of hr tablet 00:00: mouth (two) Medical times Branch daily with meals. metFORMIN 2021-0 Yes [id number] 1000mg Take 2 [facility] 500 mg 24 5-23 tablets by ity of hr tablet 00:00: mouth 2 (two) Medical times Branch daily with meals. metFORMIN 2021-0 Yes [id number] 1000mg Take 2 [facility] 500 mg 24 5-23 tablets by ity of hr tablet 00:00: mouth 2 (two) Medical times Branch daily with meals. metFORMIN 2022-0 Yes [id number] 1000mg Take 2 [facility] 500 mg 24 5-23 tablets by ity of hr tablet 00:00: mouth [place] (two) Medical times Branch daily with meals. metFORMIN 2-0 Yes [id number] 1000mg Take 2 [facility] 500 mg 24 5-23 tablets by ity of hr tablet 00:00: mouth [place] (two) Medical times Branch daily with meals. metFORMIN 2-0 Yes [id number] 1000mg Take 2 [facility] 500 mg 24 5-23 tablets by ity of hr tablet 00:00: mouth [place] (two) Medical times Branch daily with meals. metFORMIN 2-0 Yes [id number] 1000mg Take 2 [facility] 500 mg 24 5-23 tablets by ity of hr tablet 00:00: mouth [place] (two) Medical times Branch daily with meals. metFORMIN 2021-0 Yes [id number] 1000mg Take 2 [facility] 500 mg 24 5-23 tablets by ity of hr tablet 00:00: mouth [place] (two) Medical times Branch daily with meals. metFORMIN 2021-0 Yes [id number] 1000mg Take 2 [facility] 500 mg 24 5-23 tablets by ity of hr tablet 00:00: mouth [place] (two) Medical times Branch daily with meals. metFORMIN 2021-0 Yes [id number] 1000mg Take 2 [facility] 500 mg 24 5-23 tablets by ity of hr tablet 00:00: mouth [place] (two) Medical times Branch daily with meals. metFORMIN 2021-0 Yes [id number] 1000mg Take 2 [facility] 500 mg 24 5-23 tablets by ity of hr tablet 00:00: mouth [place] (two) Medical times Branch daily with meals. metFORMIN 2-0 Yes [id number] 1000mg Take 2 [facility] 500 mg 24 5-23 tablets by ity of hr tablet 00:00: mouth [place] (two) Medical times Branch daily with meals. metFORMIN 2022-0 Yes [id number] 1000mg Take 2 [facility] 500 mg 24 5-23 tablets by ity of hr tablet 00:00: mouth [place] (two) Medical times Branch daily with meals. metFORMIN 2-0 Yes [id number] 1000mg Take 2 [facility] 500 mg 24 5-23 tablets by ity of hr tablet 00:00: mouth [place] (two) Medical times Branch daily with meals. metFORMIN 2022-0 Yes [id number] 1000mg Take 2 [facility] 500 mg 24 5-23 tablets by ity of hr tablet 00:00: mouth (two) Medical times Branch daily with meals. metFORMIN 2022-0 Yes [id number] 1000mg Take 2 [facility] 500 mg 24 5-23 tablets by ity of hr tablet 00:00: mouth (two) Medical times Branch daily with meals. metFORMIN 2022-0 Yes [id number] 1000mg Take 2 [facility] 500 mg 24 5-23 tablets by ity of hr tablet 00:00: mouth (two) Medical times Branch daily with meals. metFORMIN 2-0 Yes [id number] 1000mg Take 2 [facility] 500 mg 24 5-23 tablets by ity of hr tablet 00:00: mouth [place] (two) Medical times Branch daily with meals. metFORMIN 2-0 Yes [id number] 1000mg Take 2 [facility] 500 mg 24 5-23 tablets by ity of hr tablet 00:00: mouth [place] (two) Medical times Branch daily with meals. metFORMIN 2-0 Yes [id number] 1000mg Take 2 [facility] 500 mg 24 5-23 tablets by ity of hr tablet 00:00: mouth [place] (two) Medical times Branch daily with meals. metFORMIN 2-0 Yes [id number] 1000mg Take 2 [facility] 500 mg 24 5-23 tablets by ity of hr tablet 00:00: mouth [place] (two) Medical times Branch daily with meals. metFORMIN 2-0 Yes [id number] 1000mg Take 2 [facility] 500 mg 24 5-23 tablets by ity of hr tablet 00:00: mouth [place] (two) Medical times Branch daily with meals. metFORMIN 2-0 Yes [id number] 1000mg Take 2 [facility] 500 mg 24 5-23 tablets by ity of hr tablet 00:00: mouth [place] (two) Medical times Branch daily with meals. metFORMIN 2022-0 Yes [id number] 1000mg Take 2 [facility] 500 mg 24 5-23 tablets by ity of hr tablet 00:00: mouth [place] (two) Medical times Branch daily with meals. metFORMIN 2022-0 Yes [id number] 1000mg Take 2 [facility] 500 mg 24 5-23 tablets by ity of hr tablet 00:00: mouth [place] (two) Medical times Branch daily with meals. metFORMIN 2022-0 Yes [id number] 1000mg Take 2 [facility] 500 mg 24 5-23 tablets by ity of hr tablet 00:00: mouth (two) Medical times Branch daily with meals. metFORMIN 2-0 Yes [id number] 1000mg Take 2 [facility] 500 mg 24 5-23 tablets by ity of hr tablet 00:00: mouth (two) Medical times Branch daily with meals. metFORMIN 2022-0 Yes [id number] 1000mg Take 2 [facility] 500 mg 24 5-23 tablets by ity of hr tablet 00:00: mouth (two) Medical times Branch daily with meals. metFORMIN 2-0 Yes [id number] 1000mg Take 2 [facility] 500 mg 24 5-23 tablets by ity of hr tablet 00:00: mouth (two) Medical times Branch daily with meals. metFORMIN 2021-0 Yes [id number] 1000mg Take 2 [facility] 500 mg 24 5-23 tablets by ity of hr tablet 00:00: mouth (two) Medical times Branch daily with meals. metFORMIN 2021-0 Yes [id number] 1000mg Take 2 [facility] 500 mg 24 5-23 tablets by ity of hr tablet 00:00: mouth (two) Medical times Branch daily with meals. metFORMIN 2021-0 Yes [id number] 1000mg Take 2 [facility] 500 mg 24 5-23 tablets by ity of hr tablet 00:00: mouth (two) Medical times Branch daily with meals. metFORMIN 2021-0 Yes [id number] 1000mg Take 2 [facility] 500 mg 24 5-23 tablets by ity of hr tablet 00:00: mouth (two) Medical times Branch daily with meals. metFORMIN 2-0 Yes [id number] 1000mg Take 2 [facility] 500 mg 24 5-23 tablets by ity of hr tablet 00:00: mouth (two) Medical times Branch daily with meals. metFORMIN 2-0 Yes [id number] 1000mg Take 2 [facility] 500 mg 24 5-23 tablets by ity of hr tablet 00:00: mouth (two) Medical times Branch daily with meals. metFORMIN 2022-0 Yes [id number] 1000mg Take 2 [facility] 500 mg 24 5-23 tablets by ity of hr tablet 00:00: mouth (two) Medical times Branch daily with meals. metFORMIN 2022-0 Yes [id number] 1000mg Take 2 [facility] 500 mg 24 5-23 tablets by ity of hr tablet 00:00: mouth (two) Medical times Branch daily with meals. metFORMIN 2021-0 Yes [id number] 1000mg Take 2 [facility] 500 mg 24 5-23 tablets by ity of hr tablet 00:00: mouth (two) Medical times Branch daily with meals. metFORMIN 2021-0 Yes [id number] 1000mg Take 2 [facility] 500 mg 24 5-23 tablets by ity of hr tablet 00:00: mouth (two) Medical times Branch daily with meals. metFORMIN 2021-0 Yes [id number] 1000mg Take 2 [facility] 500 mg 24 5-23 tablets by ity of hr tablet 00:00: mouth (two) Medical times Branch daily with meals. metFORMIN 2021-0 Yes [id number] 1000mg Take 2 [facility] 500 mg 24 5-23 tablets by ity of hr tablet 00:00: mouth (two) Medical times Branch daily with meals. metFORMIN 2021-0 Yes [id number] 1000mg Take 2 [facility] 500 mg 24 5-23 tablets by ity of hr tablet 00:00: mouth (two) Medical times Branch daily with meals. metFORMIN 2021-0 Yes [id number] 1000mg Take 2 [facility] 500 mg 24 5-23 tablets by ity of hr tablet 00:00: mouth (two) Medical times Branch daily with meals. metFORMIN 2021-0 Yes [id number] 1000mg Take 2 [facility] 500 mg 24 5-23 tablets by ity of hr tablet 00:00: mouth (two) Medical times Branch daily with meals. metFORMIN 2021-0 2022- No [id number] 1000mg Take 2 [facility] 500 mg 24 5-23 04-08 tablets by ity of hr tablet 00:00: 00:00 mouth 2 [place] 00 :[place] (two) Medical times Branch daily with meals. blood sugar 2021-0 2021- No [id number] Use 4 [facility] diagnostic 5-23 05-26 times ity of (ONETOUCH 00:00: 00:00 daily. Dx [place] VERIO TEST 00 :00 E11.8 Medical STRIPS) Branch strip blood sugar 2021-0 2021- No [id number] Use 4 [facility] diagnostic 5-23 05-26 times ity of (ONETOUCH 00:00: 00:00 daily. [place]x [place] VERIO TEST 00 :00 E11.8 Medical STRIPS) Branch strip Insulin 2021-0 2021- No [id number] Use as [facility] vers [place], 07-01 directed ity of Disposable, 00:00: 00:00 [place] (PEN 00 :00 Medical NEEDLE) 31 Branch gauge x 5/16" Ndle Insulin 2021-0 2021- No [id number] Use as [facility] vers [place], 07-01 directed ity of Disposable, 00:00: 00:00 [place] (PEN 00 :00 Medical NEEDLE) 31 Branch gauge x 5/16" Ndle bromphenira 2021-0 Yes [id number] 5mL Take 5 mL [facility] mine-pseudo 4-13 by mouth 4 it y of ephedrine-D 00:00: (four) [place] [facility] (BROMFED 00 times Medical DM) 2-30-10 daily as Bran ch mg/5 mL needed for syrup Congestion /Allergies , Cold symptoms or Cough. acetaminoph 2021-0 Yes [id number] 1000mg Take 2 [facility] en 500 mg 4-13 tablets by ity of tablet 00:00: mouth [place] 00 every 8 Medical (eight) Branch hours as needed for Pain or Fever. azithromyci 2021-0 Yes [id number] 250mg Take 1 [facility] n 250 mg 4-13 tablet by ity of tablet 00:00: mouth [place] 00 daily. 2 Medical tablets Branch day 1, then 1 tablet days 2-5 bromphenira 2021-0 Yes [id number] 5mL Take 5 mL [facility] mine-pseudo 4-13 by mouth 4 it y of ephedrine-D 00:00: (four) [place] (BROMFED 00 times Medical DM) 2-30-10 daily as Bran ch mg/5 mL needed for syrup Congestion /Allergies , Cold symptoms or Cough. acetaminoph 2021-0 Yes [id number] 1000mg Take 2 [facility] en 500 mg 4-13 tablets by ity of tablet 00:00: mouth [place] 00 every 8 Medical (eight) Branch hours as needed for Pain or Fever. azithromyci 2021-0 Yes [id number] 250mg Take 1 [facility] n 250 mg 4-13 tablet by ity of tablet 00:00: mouth [place] 00 daily. 2 Medical tablets Branch day 1, then 1 tablet days 2-5 bromphenira 2021-0 Yes [id number] 5mL Take 5 mL [facility] mine-pseudo 4-13 by mouth 4 it y of ephedrine-D 00:00: (four) [place] (BROMFED 00 times Medical DM) 2-30-10 daily as Bran ch mg/5 mL needed for syrup Congestion /Allergies , Cold symptoms or Cough. acetaminoph 2021-0 Yes [id number] 1000mg Take 2 [facility] en 500 mg 4-13 tablets by ity of tablet 00:00: mouth [place] 00 every 8 Medical (eight) Branch hours as needed for Pain or Fever. azithromyci 2021-0 Yes [id number] 250mg Take 1 [facility] n 250 mg 4-13 tablet by ity of tablet 00:00: mouth [place] 00 daily. 2 Medical tablets Branch day 1, then 1 tablet days 2-5 bromphenira 2021-0 Yes [id number] 5mL Take 5 mL [facility] mine-pseudo 4-13 by mouth 4 it y of ephedrine-D 00:00: (four) [place] (BROMFED 00 times Medical DM) 2-30-10 daily as Bran ch mg/5 mL needed for syrup Congestion /Allergies , Cold symptoms or Cough. acetaminoph 2021-0 Yes [id number] 1000mg Take 2 [facility] en 500 mg 4-13 tablets by ity of tablet 00:00: mouth [place] 00 every 8 Medical (eight) Branch hours as needed for Pain or Fever. azithromyci 2021-0 Yes [id number] 250mg Take 1 [facility] n 250 mg 4-13 tablet by ity of tablet 00:00: mouth [place] 00 daily. 2 Medical tablets Branch day 1, then 1 tablet days 2-5 bromphenira 2021-0 Yes [id number] 5mL Take 5 mL [facility] mine-pseudo 4-13 by mouth 4 it y of ephedrine-D 00:00: (four) [place] (BROMFED 00 times Medical DM) 2-30-10 daily as Bran ch mg/5 mL needed for syrup Congestion /Allergies , Cold symptoms or Cough. acetaminoph 2-0 Yes [id number] 1000mg Take 2 [facility] en 500 mg 4-13 tablets by ity of tablet 00:00: mouth [place] 00 every 8 Medical (eight) Branch hours as needed for Pain or Fever. azithromyci 2022-0 Yes [id number] 250mg Take 1 [facility] n 250 mg 4-13 tablet by ity of tablet 00:00: mouth [place] 00 daily. 2 Medical tablets Branch day 1, then 1 tablet days 2-5 bromphenira 2021-0 Yes [id number] 5mL Take 5 mL [facility] mine-pseudo 4-13 by mouth 4 it y of ephedrine-D 00:00: (four) [place] (BROMFED 00 times Medical DM) 2-30-10 daily as Bran ch mg/5 mL needed for syrup Congestion /Allergies , Cold symptoms or Cough. acetaminoph 2021-0 Yes [id number] 1000mg Take 2 [facility] en 500 mg 4-13 tablets by ity of tablet 00:00: mouth [place] 00 every 8 Medical (eight) Branch hours as needed for Pain or Fever. azithromyci 2021-0 Yes [id number] 250mg Take 1 [facility] n 250 mg 4-13 tablet by ity of tablet 00:00: mouth [place] 00 daily. 2 Medical tablets Branch day 1, then 1 tablet days 2-5 bromphenira 2021-0 Yes [id number] 5mL Take 5 mL [facility] mine-pseudo 4-13 by mouth 4 it y of ephedrine-D 00:00: (four) [place] [facility] (BROMFED 00 times Medical DM) 2-30-10 daily as Bran ch mg/5 mL needed for syrup Congestion /Allergies , Cold symptoms or Cough. acetaminoph 2021-0 Yes [id number] 1000mg Take 2 [facility] en 500 mg 4-13 tablets by ity of tablet 00:00: mouth [place] 00 every 8 Medical (eight) Branch hours as needed for Pain or Fever. azithromyci 2021-0 Yes [id number] 250mg Take 1 [facility] n 250 mg 4-13 tablet by ity of tablet 00:00: mouth [place] 00 daily. 2 Medical tablets Branch day 1, then 1 tablet days 2-5 bromphenira 2-0 Yes [id number] 5mL Take 5 mL [facility] mine-pseudo 4-13 by mouth 4 it y of ephedrine-D 00:00: (four) [place] [facility] (BROMFED 00 times Medical DM) 2-30-10 daily as Bran ch mg/5 mL needed for syrup Congestion /Allergies , Cold symptoms or Cough. acetaminoph 2-0 Yes [id number] 1000mg Take 2 [facility] en 500 mg 4-13 tablets by ity of tablet 00:00: mouth [place] 00 every 8 Medical (eight) Branch hours as needed for Pain or Fever. azithromyci 2-0 Yes [id number] 250mg Take 1 [facility] n 250 mg 4-13 tablet by ity of tablet 00:00: mouth [place] 00 daily. 2 Medical tablets Branch day 1, then 1 tablet days 2-5 bromphenira 2-0 Yes [id number] 5mL Take 5 mL [facility] mine-pseudo 4-13 by mouth 4 it y of ephedrine-D 00:00: (four) [place] (BROMFED 00 times Medical DM) 2-30-10 daily as Bran ch mg/5 mL needed for syrup Congestion /Allergies , Cold symptoms or Cough. acetaminoph 2021-0 Yes [id number] 1000mg Take 2 [facility] en 500 mg 4-13 tablets by ity of tablet 00:00: mouth [place] 00 every 8 Medical (eight) Branch hours as needed for Pain or Fever. azithromyci 2021-0 Yes [id number] 250mg Take 1 [facility] n 250 mg 4-13 tablet by ity of tablet 00:00: mouth [place] 00 daily. 2 Medical tablets Branch day 1, then 1 tablet days 2-5 bromphenira 2-0 Yes [id number] 5mL Take 5 mL [facility] mine-pseudo 4-13 by mouth 4 it y of ephedrine-D 00:00: (four) [place] (BROMFED 00 times Medical DM) 2-30-10 daily as Bran ch mg/5 mL needed for syrup Congestion /Allergies , Cold symptoms or Cough. acetaminoph 2-0 Yes [id number] 1000mg Take 2 [facility] en 500 mg 4-13 tablets by ity of tablet 00:00: mouth [place] 00 every 8 Medical (eight) Branch hours as needed for Pain or Fever. azithromyci 2-0 Yes [id number] 250mg Take 1 [facility] n 250 mg 4-13 tablet by ity of tablet 00:00: mouth [place] 00 daily. 2 Medical tablets Branch day 1, then 1 tablet days 2-5 bromphenira 2022-0 Yes [id number] 5mL Take 5 mL [facility] mine-pseudo 4-13 by mouth 4 it y of ephedrine-D 00:00: (four) [place] [facility] (BROMFED 00 times Medical DM) 2-30-10 daily as Bran ch mg/5 mL needed for syrup Congestion /Allergies , Cold symptoms or Cough. acetaminoph 2022-0 Yes [id number] 1000mg Take 2 [facility] en 500 mg 4-13 tablets by ity of tablet 00:00: mouth [place] 00 every 8 Medical (eight) Branch hours as needed for Pain or Fever. azithromyci 2-0 Yes [id number] 250mg Take 1 [facility] n 250 mg 4-13 tablet by ity of tablet 00:00: mouth [place] 00 daily. 2 Medical tablets Branch day 1, then 1 tablet days 2-5 bromphenira 2022-0 Yes [id number] 5mL Take 5 mL [facility] mine-pseudo 4-13 by mouth 4 it y of ephedrine-D 00:00: (four) [place] [facility] (BROMFED 00 times Medical DM) 2-30-10 daily as Bran ch mg/5 mL needed for syrup Congestion /Allergies , Cold symptoms or Cough. acetaminoph 2-0 Yes [id number] 1000mg Take 2 [facility] en 500 mg 4-13 tablets by ity of tablet 00:00: mouth [place] 00 every 8 Medical (eight) Branch hours as needed for Pain or Fever. azithromyci 2-0 Yes [id number] 250mg Take 1 [facility] n 250 mg 4-13 tablet by ity of tablet 00:00: mouth [place] 00 daily. 2 Medical tablets Branch day 1, then 1 tablet days 2-5 bromphenira 2022-0 Yes [id number] 5mL Take 5 mL [facility] mine-pseudo 4-13 by mouth 4 it y of ephedrine-D 00:00: (four) [place] [facility] (BROMFED 00 times Medical DM) 2-30-10 daily as Bran ch mg/5 mL needed for syrup Congestion /Allergies , Cold symptoms or Cough. acetaminoph 2022-0 Yes [id number] 1000mg Take 2 [facility] en 500 mg 4-13 tablets by ity of tablet 00:00: mouth [place] 00 every 8 Medical (eight) Branch hours as needed for Pain or Fever. azithromyci 2022-0 Yes [id number] 250mg Take 1 [facility] n 250 mg 4-13 tablet by ity of tablet 00:00: mouth [place] 00 daily. 2 Medical tablets Branch day 1, then 1 tablet days 2-5 bromphenira 2-0 Yes [id number] 5mL Take 5 mL [facility] mine-pseudo 4-13 by mouth 4 it y of ephedrine-D 00:00: (four) [place] [facility] (BROMFED 00 times Medical DM) 2-30-10 daily as Bran ch mg/5 mL needed for syrup Congestion /Allergies , Cold symptoms or Cough. acetaminoph 2-0 Yes [id number] 1000mg Take 2 [facility] en 500 mg 4-13 tablets by ity of tablet 00:00: mouth [place] 00 every 8 Medical (eight) Branch hours as needed for Pain or Fever. azithromyci 2021-0 Yes [id number] 250mg Take 1 [facility] n 250 mg 4-13 tablet by ity of tablet 00:00: mouth [place] 00 daily. 2 Medical tablets Branch day 1, then 1 tablet days 2-5 bromphenira 2021-0 Yes [id number] 5mL Take 5 mL [facility] mine-pseudo 4-13 by mouth 4 it y of ephedrine-D 00:00: (four) [place] [facility] (BROMFED 00 times Medical DM) 2-30-10 daily as Bran ch mg/5 mL needed for syrup Congestion /Allergies , Cold symptoms or Cough. acetaminoph 2021-0 Yes [id number] 1000mg Take 2 [facility] en 500 mg 4-13 tablets by ity of tablet 00:00: mouth [place] 00 every 8 Medical (eight) Branch hours as needed for Pain or Fever. azithromyci 2-0 Yes [id number] 250mg Take 1 [facility] n 250 mg 4-13 tablet by ity of tablet 00:00: mouth [place] 00 daily. 2 Medical tablets Branch day 1, then 1 tablet days 2-5 bromphenira 2-0 Yes [id number] 5mL Take 5 mL [facility] mine-pseudo 4-13 by mouth 4 it y of ephedrine-D 00:00: (four) [place] [facility] (BROMFED 00 times Medical DM) 2-30-10 daily as Bran ch mg/5 mL needed for syrup Congestion /Allergies , Cold symptoms or Cough. acetaminoph 2022-0 Yes [id number] 1000mg Take 2 [facility] en 500 mg 4-13 tablets by ity of tablet 00:00: mouth [place] 00 every 8 Medical (eight) Branch hours as needed for Pain or Fever. azithromyci 2022-0 Yes [id number] 250mg Take 1 [facility] n 250 mg 4-13 tablet by ity of tablet 00:00: mouth [place] 00 daily. 2 Medical tablets Branch day 1, then 1 tablet days 2-5 bromphenira 2-0 Yes [id number] 5mL Take 5 mL [facility] mine-pseudo 4-13 by mouth 4 it y of ephedrine-D 00:00: (four) [place] [facility] (BROMFED 00 times Medical DM) 2-30-10 daily as Bran ch mg/5 mL needed for syrup Congestion /Allergies , Cold symptoms or Cough. acetaminoph 2-0 Yes [id number] 1000mg Take 2 [facility] en 500 mg 4-13 tablets by ity of tablet 00:00: mouth [place] 00 every 8 Medical (eight) Branch hours as needed for Pain or Fever. azithromyci 2-0 Yes [id number] 250mg Take 1 [facility] n 250 mg 4-13 tablet by ity of tablet 00:00: mouth [place] 00 daily. 2 Medical tablets Branch day 1, then 1 tablet days 2-5 bromphenira 2-0 Yes [id number] 5mL Take 5 mL [facility] mine-pseudo 4-13 by mouth 4 it y of ephedrine-D 00:00: (four) [place] [facility] (BROMFED 00 times Medical DM) 2-30-10 daily as Bran ch mg/5 mL needed for syrup Congestion /Allergies , Cold symptoms or Cough. acetaminoph 2-0 Yes [id number] 1000mg Take 2 [facility] en 500 mg 4-13 tablets by ity of tablet 00:00: mouth [place] 00 every 8 Medical (eight) Branch hours as needed for Pain or Fever. azithromyci 2-0 Yes [id number] 250mg Take 1 [facility] n 250 mg 4-13 tablet by ity of tablet 00:00: mouth [place] 00 daily. 2 Medical tablets Branch day 1, then 1 tablet days 2-5 acetaminoph 2-0 Yes [id number] 1000mg Take 2 [facility] en 500 mg 4-13 tablets by ity of tablet 00:00: mouth [place] 00 every 8 Medical (eight) Branch hours as needed for Pain or Fever. acetaminoph 2022-0 Yes [id number] 1000mg Take 2 [facility] en 500 mg 4-13 tablets by ity of tablet 00:00: mouth [place] 00 every 8 Medical (eight) Branch hours as needed for Pain or Fever. acetaminoph 2022-0 Yes [id number] 1000mg Take 2 [facility] en 500 mg 4-13 tablets by ity of tablet 00:00: mouth [place] 00 every 8 Medical (eight) Branch hours as needed for Pain or Fever. acetaminoph 2022-0 Yes [id number] 1000mg Take 2 [facility] en 500 mg 4-13 tablets by ity of tablet 00:00: mouth [place] 00 every 8 Medical (eight) Branch hours as needed for Pain or Fever. acetaminoph 2022-0 Yes [id number] 1000mg Take 2 [facility] en 500 mg 4-13 tablets by ity of tablet 00:00: mouth [place] 00 every 8 Medical (eight) Branch hours as needed for Pain or Fever. acetaminoph 2022-0 Yes [id number] 1000mg Take 2 [facility] en 500 mg 4-13 tablets by ity of tablet 00:00: mouth [place] 00 every 8 Medical (eight) Branch hours as needed for Pain or Fever. acetaminoph 2022-0 Yes [id number] 1000mg Take 2 [facility] en 500 mg 4-13 tablets by ity of tablet 00:00: mouth [place] 00 every 8 Medical (eight) Branch hours as needed for Pain or Fever. acetaminoph 2-0 Yes [id number] 1000mg Take 2 [facility] en 500 mg 4-13 tablets by ity of tablet 00:00: mouth [place] 00 every 8 Medical (eight) Branch hours as needed for Pain or Fever. acetaminoph 2022-0 Yes [id number] 1000mg Take 2 [facility] en 500 mg 4-13 tablets by ity of tablet 00:00: mouth [place] 00 every 8 Medical (eight) Branch hours as needed for Pain or Fever. acetaminoph 2022-0 Yes [id number] 1000mg Take 2 [facility] en 500 mg 4-13 tablets by ity of tablet 00:00: mouth [place] 00 every 8 Medical (eight) Branch hours as needed for Pain or Fever. acetaminoph 2022-0 Yes [id number] 1000mg Take 2 [facility] en 500 mg 4-13 tablets by ity of tablet 00:00: mouth [place] 00 every 8 Medical (eight) Branch hours as needed for Pain or Fever. acetaminoph 2022-0 Yes [id number] 1000mg Take 2 [facility] en 500 mg 4-13 tablets by ity of tablet 00:00: mouth [place] 00 every 8 Medical (eight) Branch hours as needed for Pain or Fever. acetaminoph 2022-0 Yes [id number] 1000mg Take 2 [facility] en 500 mg 4-13 tablets by ity of tablet 00:00: mouth [place] 00 every 8 Medical (eight) Branch hours as needed for Pain or Fever. acetaminoph 2-0 Yes [id number] 1000mg Take 2 [facility] en 500 mg 4-13 tablets by ity of tablet 00:00: mouth [place] 00 every 8 Medical (eight) Branch hours as needed for Pain or Fever. acetaminoph 2-0 Yes [id number] 1000mg Take 2 [facility] en 500 mg 4-13 tablets by ity of tablet 00:00: mouth [place] 00 every 8 Medical (eight) Branch hours as needed for Pain or Fever. acetaminoph 2-0 Yes [id number] 1000mg Take 2 [facility] en 500 mg 4-13 tablets by ity of tablet 00:00: mouth [place] 00 every 8 Medical (eight) Branch hours as needed for Pain or Fever. acetaminoph 2-0 Yes [id number] 1000mg Take 2 [facility] en 500 mg 4-13 tablets by ity of tablet 00:00: mouth [place] 00 every 8 Medical (eight) Branch hours as needed for Pain or Fever. acetaminoph 2-0 Yes [id number] 1000mg Take 2 [facility] en 500 mg 4-13 tablets by ity of tablet 00:00: mouth [place] 00 every 8 Medical (eight) Branch hours as needed for Pain or Fever. acetaminoph 2022-0 Yes [id number] 1000mg Take 2 [facility] en 500 mg 4-13 tablets by ity of tablet 00:00: mouth [place] 00 every 8 Medical (eight) Branch hours as needed for Pain or Fever. acetaminoph 2022-0 Yes [id number] 1000mg Take 2 [facility] en 500 mg 4-13 tablets by ity of tablet 00:00: mouth [place] 00 every 8 Medical (eight) Branch hours as needed for Pain or Fever. acetaminoph 2022-0 Yes [id number] 1000mg Take 2 [facility] en 500 mg 4-13 tablets by ity of tablet 00:00: mouth [place] 00 every 8 Medical (eight) Branch hours as needed for Pain or Fever. acetaminoph 2022-0 Yes [id number] 1000mg Take 2 [facility] en 500 mg 4-13 tablets by ity of tablet 00:00: mouth [place] 00 every 8 Medical (eight) Branch hours as needed for Pain or Fever. acetaminoph 2022-0 Yes [id number] 1000mg Take 2 [facility] en 500 mg 4-13 tablets by ity of tablet 00:00: mouth [place] 00 every 8 Medical (eight) Branch hours as needed for Pain or Fever. acetaminoph 2022-0 Yes [id number] 1000mg Take 2 [facility] en 500 mg 4-13 tablets by ity of tablet 00:00: mouth [place] 00 every 8 Medical (eight) Branch hours as needed for Pain or Fever. acetaminoph 2022-0 Yes [id number] 1000mg Take 2 [facility] en 500 mg 4-13 tablets by ity of tablet 00:00: mouth [place] 00 every 8 Medical (eight) Branch hours as needed for Pain or Fever. acetaminoph 2-0 Yes [id number] 1000mg Take 2 [facility] en 500 mg 4-13 tablets by ity of tablet 00:00: mouth [place] 00 every 8 Medical (eight) Branch hours as needed for Pain or Fever. acetaminoph 2-0 Yes [id number] 1000mg Take 2 [facility] en 500 mg 4-13 tablets by ity of tablet 00:00: mouth [place] 00 every 8 Medical (eight) Branch hours as needed for Pain or Fever. acetaminoph 2-0 Yes [id number] 1000mg Take 2 [facility] en 500 mg 4-13 tablets by ity of tablet 00:00: mouth [place] 00 every 8 Medical (eight) Branch hours as needed for Pain or Fever. acetaminoph 2-0 Yes [id number] 1000mg Take 2 [facility] en 500 mg 4-13 tablets by ity of tablet 00:00: mouth [place] 00 every 8 Medical (eight) Branch hours as needed for Pain or Fever. acetaminoph 2022-0 Yes [id number] 1000mg Take 2 [facility] en 500 mg 4-13 tablets by ity of tablet 00:00: mouth [place] 00 every 8 Medical (eight) Branch hours as needed for Pain or Fever. acetaminoph 2022-0 Yes [id number] 1000mg Take 2 [facility] en 500 mg 4-13 tablets by ity of tablet 00:00: mouth [place] 00 every 8 Medical (eight) Branch hours as needed for Pain or Fever. acetaminoph 2021- Yes [id number] 1000mg Take 2 [facility] en 500 mg 4-13 tablets by ity of tablet 00:00: mouth [place] 00 every 8 Medical (eight) Branch hours as needed for Pain or Fever. acetaminoph 2022- No [id number] 1000mg Take 2 [facility] en 500 mg 4-13 -14 tablets by ity of tablet 00:00: 00:00 mouth [place] 00 :00 every 8 Medical (eight) Branch hours as needed for Pain or Fever. acetaminoph 2022- No [id number] 1000mg Take 2 [facility] en 500 mg 4-13 -14 tablets by ity of tablet 00:00: 00:00 mouth [place] 00 :00 every 8 Medical (eight) Branch hours as needed for Pain or Fever. bromphenira 2022- No [id number] 5mL Take 5 mL [facility] mine-pseudo 05-22 by mouth 4 i ty of ephedrine-D 00:00: 00:00 (four) [place] [facility] (BROMFED 00 :00 times Medical DM) 2-30-10 daily as Bran ch mg/5 mL needed for syrup Congestion /Allergies , Cold symptoms or Cough. azithromyci 2022- No [id number] 250mg Take 1 [facility] n 250 mg 05-22 tablet by ity o f tablet 00:00: 00:00 mouth [place] 00 :00 daily. 2 Medical tablets Branch day 1, then 1 tablet days 2-5 bromphenira 2022- No [id number] 5mL Take 5 mL [facility] mine-pseudo 05-22 by mouth 4 i ty of ephedrine-D 00:00: 00:00 (four) [place] [facility] (BROMFED 00 :00 times Medical DM) 2-30-10 daily as Bran ch mg/5 mL needed for syrup Congestion /Allergies , Cold symptoms or Cough. azithromyci 2022- No [id number] 250mg Take 1 [facility] n 250 mg 05-22 tablet by ity o f tablet 00:00: 00:00 mouth [place] 00 :00 daily. 2 Medical tablets Branch day 1, then 1 tablet days 2-5 bromphenira 2022- No [id number] 5mL Take 5 mL [facility] mine-pseudo 05-22 by mouth 4 i ty of ephedrine-D 00:00: 00:00 (four) [place] [facility] (BROMFED 00 :00 times Medical DM) 2-30-10 daily as Bran ch mg/5 mL needed for syrup Congestion /Allergies , Cold symptoms or Cough. azithromyci 2022- No [id number] 250mg Take 1 [facility] n 250 mg 05-22 tablet by ity o f tablet 00:00: 00:00 mouth [place] 00 :00 daily. 2 Medical tablets Branch day 1, then 1 tablet days 2-5 bromphenira 2022- No [id number] 5mL Take 5 mL [facility] mine-pseudo 05-22 by mouth 4 i ty of ephedrine-D 00:00: 00:00 (four) [place] [facility] (BROMFED 00 :00 times Medical DM) 2-30-10 daily as Bran ch mg/5 mL needed for syrup Congestion /Allergies , Cold symptoms or Cough. azithromyci 2022- No [id number] 250mg Take 1 [facility] n 250 mg 05-22 tablet by ity o f tablet 00:00: 00:00 mouth [place] 00 :00 daily. 2 Medical tablets Branch day 1, then 1 tablet days 2-5 bromphenira 2022- No [id number] 5mL Take 5 mL [facility] mine-pseudo 05-22 by mouth 4 i ty of ephedrine-D 00:00: 00:00 (four) [place] [facility] (BROMFED 00 :00 times Medical DM) 2-30-10 daily as Bran ch mg/5 mL needed for syrup Congestion /Allergies , Cold symptoms or Cough. azithromyci 2022- No [id number] 250mg Take 1 [facility] n 250 mg 05-22 tablet by ity o f tablet 00:00: 00:00 mouth [place] 00 :00 daily. 2 Medical tablets Branch day 1, then 1 tablet days 2-5 insulin Yes [id number] 50U inject 50 U nivers degludec-li 3-23 Units ity of raglutide 00:00: under the [place] [facility] (XULTOPHY 00 skin Medical 100/3.6) daily. Branch 100 unit-3.6 mg /mL (3 mL) InPn insulin 0 Yes [id number] 50U inject 50 U nivers degludec-li 3-23 Units ity of raglutide 00:00: under the [place] [facility] (XULTOPHY 00 skin Medical 100/3.6) daily. Branch 100 unit-3.6 mg /mL (3 mL) InPn insulin 0 Yes [id number] 50U inject 50 U nivers degludec-li 3-23 Units ity of raglutide 00:00: under the [place] (XULTOPHY 00 skin Medical 100/3.6) daily. Branch 100 unit-3.6 mg /mL (3 mL) InPn insulin 0 Yes [id number] 50U inject 50 U nivers degludec-li 3-23 Units ity of raglutide 00:00: under the [place] (XULTOPHY 00 skin Medical 100/3.6) daily. Branch 100 unit-3.6 mg /mL (3 mL) InPn insulin 0 Yes [id number] 50U inject 50 U nivers degludec-li 3-23 Units ity of raglutide 00:00: under the [place] (XULTOPHY 00 skin Medical 100/3.6) daily. Branch 100 unit-3.6 mg /mL (3 mL) InPn insulin 0 Yes [id number] 50U inject 50 U nivers degludec-li 3-23 Units ity of raglutide 00:00: under the [place] (XULTOPHY 00 skin Medical 100/3.6) daily. Branch 100 unit-3.6 mg /mL (3 mL) InPn insulin 0 2021- No [id number] 50U inject 50 [facility] degludec-li 3-23 12-20 Units ity of raglutide 00:00: 00:00 under the [place] (XULTOPHY 00 :00 skin Medical 100/3.6) daily. Branch 100 unit-3.6 mg /mL (3 mL) InPn insulin 0 2021- No [id number] 50U inject 50 [facility] degludec-li 3-23 12-20 Units ity of raglutide 00:00: 00:00 under the [place] (XULTOPHY 00 :00 skin Medical 100/3.6) daily. Branch 100 unit-3.6 mg /mL (3 mL) InPn Nitrofurant Yes [id number] 100mg Take 1 [facility] oin&Nit. 2-26 capsule by ity o f [place] 00:00: mouth [place] (MACROBID) 00 (two) Medical 100 mg times Branch capsule daily. Nitrofurant 0 Yes [id number] 100mg Take 1 [facility] oin&Nit. 2-26 capsule by ity o f [place]ryst 00:00: mouth [place] (MACROBID) 00 (two) Medical 100 mg times Branch capsule daily. Nitrofurant 0 Yes [id number] 100mg Take 1 [facility] oin&Nit. 2-26 capsule by ity o f [place]ryst 00:00: mouth [place] (MACROBID) 00 (two) Medical 100 mg times Branch capsule daily. Nitrofurant 0 Yes [id number] 100mg Take 1 [facility] oin&Nit. 2-26 capsule by ity o f Mac[place]ryst 00:00: mouth [place] (MACROBID) 00 (two) Medical 100 mg times Branch capsule daily. Nitrofurant 0 Yes [id number] 100mg Take 1 [facility] oin&Nit. 2-26 capsule by ity o f [place]ryst 00:00: mouth [place] (MACROBID) 00 (two) Medical 100 mg times Branch capsule daily. Nitrofurant 2021-0 Yes [id number] 100mg Take 1 [facility] oin&Nit. 2-26 capsule by ity o f [place] 00:00: mouth [place] (MACROBID) 00 (two) Medical 100 mg times Branch capsule daily. Nitrofurant 2021-0 Yes [id number] 100mg Take 1 [facility] oin&Nit. 2-26 capsule by ity o f [place] 00:00: mouth 2 [place] (MACROBID) 00 (two) Medical 100 mg times Branch capsule daily. Nitrofurant 2021-0 Yes [id number] 100mg Take 1 [facility] oin&Nit. 2-26 capsule by ity o f [place] 00:00: mouth [place] (MACROBID) 00 (two) Medical 100 mg times Branch capsule daily. Nitrofurant 2021-0 Yes [id number] 100mg Take 1 [facility] oin&Nit. 2-26 capsule by ity o f [place] 00:00: mouth [place] (MACROBID) 00 (two) Medical 100 mg times Branch capsule daily. Nitrofurant 2021-0 Yes [id number] 100mg Take 1 [facility] oin&Nit. 2-26 capsule by ity o f [place] 00:00: mouth [place] (MACROBID) 00 (two) Medical 100 mg times Branch capsule daily. Nitrofurant 2021-0 Yes [id number] 100mg Take 1 [facility] oin&Nit. 2-26 capsule by ity o f [place] 00:00: mouth [place] (MACROBID) 00 (two) Medical 100 mg times Branch capsule daily. Nitrofurant 2021-0 Yes [id number] 100mg Take 1 [facility] oin&Nit. 2-26 capsule by ity o f [place] 00:00: mouth [place] (MACROBID) 00 (two) Medical 100 mg times Branch capsule daily. Nitrofurant 2021-0 Yes [id number] 100mg Take 1 [facility] oin&Nit. 2-26 capsule by ity o f [place] 00:00: mouth 2 [place] (MACROBID) 00 (two) Medical 100 mg times Branch capsule daily. Nitrofurant 2021-0 Yes [id number] 100mg Take 1 [facility] oin&Nit. 2-26 capsule by ity o f [place] 00:00: mouth [place] (MACROBID) 00 (two) Medical 100 mg times Branch capsule daily. Nitrofurant 2021-0 Yes [id number] 100mg Take 1 [facility] oin&Nit. 2-26 capsule by [facility] [place] ([place]CR[place] (two) Medical 100 mg times Branch capsule daily. Nitrofurant 2021-0 Yes [id number] 100mg Take 1 [facility] oin&Nit. 2-26 capsule by [facility] [place] (MACR[place] 00 (two) Medical 100 mg times Branch capsule daily. Nitrofurant Yes [id number] 100mg Take 1 [facility] oin&Nit. 2-26 capsule by [facility] [place] (MACROBID[place] 00 (two) Medical 100 mg times Branch capsule daily. Nitrofurant Yes [id number] 100mg Take 1 [facility] oin&Nit. 2-26 capsule by [facility] [place] (MACROBID) 00 (two) Medical 100 mg times Branch capsule daily. Nitrofurant 2022- No [id number] 100mg Take 1 [facility] oin&Nit. 2-26 -04 capsule by ity of [place] 00:00: 00:00 mouth 2 [place] (MACROBID) 00 :00 (two) Medical 100 mg times Branch capsule daily. Nitrofurant 2022- No [id number] 100mg Take 1 [facility] oin&Nit. 2-06 03-04 capsule by ity of [place] 00:00: 00:00 mouth 2 [place] (MACROBID) 00 :00 (two) Medical 100 mg times Branch capsule daily. Nitrofurant 2022- No [id number] 100mg Take 1 [facility] oin&Nit. 2-06 03-04 capsule by [facility]y of [place] 00:00: 00:00 mouth 2 [place] (MACROBID) 00 :00 (two) Medical 100 mg times Branch capsule daily. Nitrofurant 2022- No [id number] 100mg Take 1 [facility] oin&Nit. 2-06 03-04 capsule by ity of [place] 00:00: 00:00 mouth 2 [place] (MACROBID) 00 :00 (two) Medical 100 mg times Branch capsule daily. Nitrofurant 2022- No [id number] 100mg Take 1 [facility] oin&Nit. 2-26 -04 capsule by ity of [place] 00:00: 00:00 mouth 2 [place] (MACROBID) 00 :00 (two) Medical 100 mg times Branch capsule daily. insulin Yes [id number] 1{each} 1 Each 4 [facility] syr/ndl 2-25 (four) ity of U100 half 00:00: times [place] melvin 0.5 mL 00 daily. Use Me dical 31 gauge x with Branch 5/16" Syrg insulin 4 times daily. Dx E11.8 insulin 0 Yes [id number] 15U inject 15 U nivers aspart 2-25 Units ity of RAPID 00:00: under the [place] (NOVOLOG 00 skin 3 Medical U-100 (three) Branch INSULIN times ASPART) 100 daily unit/mL before injection meals. lancets 0 Yes [id number] Use 4 [facility] rs (ONE TOUCH 2-25 times ity of DELICA) 33 00:00: daily. Dx [place] gauge Misc E11.8 Medical Branch insulin 0 Yes [id number] 1{each} 1 Each 4 [facility] syr/ndl 2-25 (four) ity of U100 half 00:00: times [place] melvin 0.5 mL 00 daily. Use Me dical 31 gauge x with Branch 5/16" Syrg insulin 4 times daily. Dx E11.8 insulin Yes [id number] 15U inject 15 U n[facility] aspart 2-25 Units ity of RAPID 00:00: under the [place] (NOVOLOG 00 skin 3 Medical U-100 (three) Branch INSULIN times ASPART) 100 daily unit/mL before injection meals. lancets 2021-0 Yes [id number] Use 4 [facility] rs (ONE TOUCH 2-25 times ity of DELICA) 33 00:00: daily. Dx [place] gauge Misc E11.8 Medical Branch insulin 0 Yes [id number] 1{each} 1 Each 4 [facility] syr/ndl 2-25 (four) ity of U100 half 00:00: times [place] melvin 0.5 mL 00 daily. Use Me dical 31 gauge x with Branch 5/16" Syrg insulin 4 times daily. Dx E11.8 insulin Yes [id number] 15U inject 15 U nivers aspart 2-25 Units ity of RAPID 00:00: under the [place] (NOVOLOG 00 skin 3 Medical U-100 (three) Branch INSULIN times ASPART) 100 daily unit/mL before injection meals. lancets 2021-0 Yes [id number] Use 4 [facility] rs (ONE TOUCH 2-25 times ity of DELICA) 33 00:00: daily. Dx [place] gauge Misc 00 E11.8 Medical Branch insulin 0 Yes [id number] 1{each} 1 Each 4 [facility] syr/ndl 2-25 (four) ity of U100 half 00:00: times [place] melvin 0.5 mL 00 daily. Use Me dical 31 gauge x with Branch 5/16" Syrg insulin 4 times daily. Dx E11.8 insulin 0 Yes [id number] 15U inject 15 U nivers aspart 2-25 Units ity of RAPID 00:00: under the [place] (NOVOLOG 00 skin 3 Medical U-100 (three) Branch INSULIN times ASPART) 100 daily unit/mL before injection meals. lancets 0 Yes [id number] Use 4 [facility] rs (ONE TOUCH 2-25 times ity of DELICA) 33 00:00: daily. Dx [place] gauge [facility] [place] E11.8 Medical Branch insulin 0 Yes [id number] 1{each} 1 Each 4 [facility] syr/ndl 2-25 (four) ity of U100 half 00:00: times [place] melvin 0.5 mL 00 daily. Use Me dical 31 gauge x with Branch 5/16" Syrg insulin 4 times daily. Dx E11.8 insulin Yes [id number] 15U inject 15 U nivers aspart 2-25 Units ity of RAPID 00:00: under the [place] (NOVOLOG 00 skin 3 Medical U-100 (three) Branch INSULIN times ASPART) 100 daily unit/mL before injection meals. lancets 0 Yes [id number] Use 4 [facility] rs (ONE TOUCH 2-25 times ity of DELICA) 33 00:00: daily. Dx [place] gauge [facility] [place] E11.8 Medical Branch insulin 0 Yes [id number] 1{each} 1 Each 4 [facility] syr/ndl 2-25 (four) ity of U100 half 00:00: times [place] melvin 0.5 mL 00 daily. Use Me dical 31 gauge x with Branch 5/16" Syrg insulin 4 times daily. Dx E11.8 insulin 0 Yes [id number] 15U inject 15 U nivers aspart 2-25 Units ity of RAPID 00:00: under the [place] (NOVOLOG 00 skin 3 Medical U-100 (three) Branch INSULIN times ASPART) 100 daily unit/mL before injection meals. lancets Yes [id number] Use 4 [facility] rs (ONE TOUCH 2-25 times ity of DELICA) 33 00:00: daily. Dx [place] gauge Misc 00 E11.8 Medical Branch lancets 2-0 Yes [id number] Use 4 [facility] rs (ONE TOUCH 2-25 times ity of DELICA) 33 00:00: daily. Dx [place] gauge Misc 00 E11.8 Medical Branch lancets 2-0 Yes [id number] Use 4 [facility] rs (ONE TOUCH 2-25 times ity of DELICA) 33 00:00: daily. Dx [place] gauge Misc 00 E11.8 Medical Branch lancets 2021-0 Yes [id number] Use 4 [facility] rs (ONE TOUCH 2-25 times ity of DELICA) 33 00:00: daily. Dx [place] gauge Misc 00 E11.8 Medical Branch lancets 2021-0 Yes [id number] Use 4 [facility] rs (ONE TOUCH 2-25 times ity of DELICA) 33 00:00: daily. Dx [place] gauge Misc 00 E11.8 Medical Branch lancets 2021-0 Yes [id number] Use 4 [facility] rs (ONE TOUCH 2-25 times ity of DELICA) 33 00:00: daily. Dx [place] gauge Misc 00 E11.8 Medical Branch lancets 2-0 Yes [id number] Use 4 [facility] rs (ONE TOUCH 2-25 times ity of DELICA) 33 00:00: daily. Dx [place] gauge Misc 00 E11.8 Medical Branch lancets 2-0 Yes [id number] Use 4 [facility] rs (ONE TOUCH 2-25 times ity of DELICA) 33 00:00: daily. Dx [place] gauge Misc 00 E11.8 Medical Branch lancets 2-0 Yes [id number] Use 4 [facility] rs (ONE TOUCH 2-25 times ity of DELICA) 33 00:00: daily. Dx [place] gauge Misc 00 E11.8 Medical Branch lancets 2-0 Yes [id number] Use 4 [facility]ive rs (ONE TOUCH 2-25 times ity of DELICA) 33 00:00: daily. Dx [place] gauge Misc 00 E11.8 Medical Branch lancets 2-0 Yes [id number] Use 4 [facility]ive rs (ONE TOUCH 2-25 times ity of DELICA) 33 00:00: daily. Dx [place] gauge Misc 00 E11.8 Medical Branch lancets 2022-0 Yes [id number] Use 4 [facility] rs (ONE TOUCH 2-25 times ity of DELICA) 33 00:00: daily. Dx [place] gauge Misc 00 E11.8 Medical Branch lancets 2022-0 Yes [id number] Use 4 [facility] rs (ONE TOUCH 2-25 times ity of DELICA) 33 00:00: daily. Dx [place] gauge Misc 00 E11.8 Medical Branch lancets 2-0 Yes [id number] Use 4 Unive rs (ONE TOUCH 2-25 times ity of DELICA) 33 00:00: daily. Dx [place] gauge Misc 00 E11.8 Medical Branch lancets 2-0 Yes [id number] Use 4 Unive rs (ONE TOUCH 2-25 times ity of DELICA) 33 00:00: daily. Dx [place] gauge Misc 00 E11.8 Medical Branch lancets 2-0 Yes [id number] Use 4 [facility]ive rs (ONE TOUCH 2-25 times ity of DELICA) 33 00:00: daily. Dx [place] gauge Misc 00 E11.8 Medical Branch lancets 2-0 Yes [id number] Use 4 Unive rs (ONE TOUCH 2-25 times ity of DELICA) 33 00:00: daily. Dx [place] gauge Misc 00 E11.8 Medical Branch lancets 2-0 Yes [id number] Use 4 Unive rs (ONE TOUCH 2-25 times ity of DELICA) 33 00:00: daily. Dx [place] gauge Misc 00 E11.8 Medical Branch lancets 2-0 Yes [id number] Use 4 Unive rs (ONE TOUCH 2-25 times ity of DELICA) 33 00:00: daily. Dx [place] gauge Misc 00 E11.8 Medical Branch lancets 2-0 Yes [id number] Use 4 Unive rs (ONE TOUCH 2-25 times ity of DELICA) 33 00:00: daily. Dx [place] gauge Misc 00 E11.8 Medical Branch lancets 2-0 Yes [id number] Use 4 Unive rs (ONE TOUCH 2-25 times ity of DELICA) 33 00:00: daily. Dx [place] gauge Misc 00 E11.8 Medical Branch lancets 2-0 Yes [id number] Use 4 Unive rs (ONE TOUCH 2-25 times ity of DELICA) 33 00:00: daily. Dx [place] gauge Misc 00 E11.8 Medical Branch lancets 2-0 Yes [id number] Use 4 Unive rs (ONE TOUCH 2-25 times ity of DELICA) 33 00:00: daily. Dx [place] gauge Misc 00 E11.8 Medical Branch lancets 2-0 Yes [id number] Use 4 Unive rs (ONE TOUCH 2-25 times ity of DELICA) 33 00:00: daily. Dx [place] gauge Misc 00 E11.8 Medical Branch lancets 2021-0 Yes [id number] Use 4 Unive rs (ONE TOUCH 2-25 times ity of DELICA) 33 00:00: daily. Dx [place] gauge Misc 00 E11.8 Medical Branch lancets 2021-0 Yes [id number] Use 4 Unive rs (ONE TOUCH 2-25 times ity of DELICA) 33 00:00: daily. Dx [place] gauge Misc 00 E11.8 Medical Branch lancets 2021-0 Yes [id number] Use 4 Unive rs (ONE TOUCH 2-25 times ity of DELICA) 33 00:00: daily. Dx [place] gauge Misc 00 E11.8 Medical Branch lancets 2-0 Yes [id number] Use 4 Unive rs (ONE TOUCH 2-25 times ity of DELICA) 33 00:00: daily. Dx [place] gauge Misc 00 E11.8 Medical Branch lancets 2-0 Yes [id number] Use 4 Unive rs (ONE TOUCH 2-25 times ity of DELICA) 33 00:00: daily. Dx [place] gauge Misc 00 E11.8 Medical Branch lancets 2-0 Yes [id number] Use 4 Unive rs (ONE TOUCH 2-25 times ity of DELICA) 33 00:00: daily. Dx [place] gauge Misc 00 E11.8 Medical Branch lancets 2-0 Yes [id number] Use 4 Unive rs (ONE TOUCH 2-25 times ity of DELICA) 33 00:00: daily. Dx [place] gauge Misc 00 E11.8 Medical Branch lancets 2-0 Yes [id number] Use 4 Unive rs (ONE TOUCH 2-25 times ity of DELICA) 33 00:00: daily. Dx [place] gauge Misc 00 E11.8 Medical Branch lancets 2-0 Yes [id number] Use 4 Unive rs (ONE TOUCH 2-25 times ity of DELICA) 33 00:00: daily. Dx [place] gauge Misc 00 E11.8 Medical Branch lancets 2-0 Yes [id number] Use 4 Unive rs (ONE TOUCH 2-25 times ity of DELICA) 33 00:00: daily. Dx [place] gauge Misc 00 E11.8 Medical Branch lancets 2-0 Yes [id number] Use 4 Unive rs (ONE TOUCH 2-25 times ity of DELICA) 33 00:00: daily. Dx [place] gauge Misc 00 E11.8 Medical Branch lancets 2-0 Yes [id number] Use 4 Unive rs (ONE TOUCH 2-25 times ity of DELICA) 33 00:00: daily. Dx [place] gauge Misc 00 E11.8 Medical Branch lancets 2-0 Yes [id number] Use 4 Unive rs (ONE TOUCH 2-25 times ity of DELICA) 33 00:00: daily. Dx [place] gauge Misc 00 E11.8 Medical Branch lancets 2-0 Yes [id number] Use 4 Unive rs (ONE TOUCH 2-25 times ity of DELICA) 33 00:00: daily. Dx [place] gauge Misc 00 E11.8 Medical Branch lancets 2-0 Yes [id number] Use 4 Unive rs (ONE TOUCH 2-25 times ity of DELICA) 33 00:00: daily. Dx [place] gauge Misc 00 E11.8 Medical Branch lancets 2-0 Yes [id number] Use 4 Unive rs (ONE TOUCH 2-25 times ity of DELICA) 33 00:00: daily. Dx [place] gauge Misc 00 E11.8 Medical Branch lancets 2-0 Yes [id number] Use 4 Unive rs (ONE TOUCH 2-25 times ity of DELICA) 33 00:00: daily. Dx [place] gauge Misc 00 E11.8 Medical Branch lancets 2-0 Yes [id number] Use 4 Unive rs (ONE TOUCH 2-25 times ity of DELICA) 33 00:00: daily. Dx [place] gauge Misc 00 E11.8 Medical Branch lancets 2021-0 Yes [id number] Use 4 Unive rs (ONE TOUCH 2-25 times ity of DELICA) 33 00:00: daily. Dx [place] gauge Misc 00 E11.8 Medical Branch lancets 2021-0 Yes [id number] Use 4 Unive rs (ONE TOUCH 2-25 times ity of DELICA) 33 00:00: daily. Dx [place] gauge Misc 00 E11.8 Medical Branch lancets 2021-0 Yes [id number] Use 4 Unive rs (ONE TOUCH 2-25 times ity of DELICA) 33 00:00: daily. Dx [place] gauge Misc 00 E11.8 Medical Branch lancets 2021-0 Yes [id number] Use 4 Unive rs (ONE TOUCH 2-25 times ity of DELICA) 33 00:00: daily. Dx [place] gauge Misc 00 E11.8 Medical Branch lancets 2021-0 Yes [id number] Use 4 Unive rs (ONE TOUCH 2-25 times ity of DELICA) 33 00:00: daily. Dx [place] gauge Misc 00 E11.8 Medical Branch lancets 2021-0 Yes [id number] Use 4 Unive rs (ONE TOUCH 2-25 times ity of DELICA) 33 00:00: daily. Dx [place] gauge Misc 00 E11.8 Medical Branch lancets 2021-0 Yes [id number] Use 4 Unive rs (ONE TOUCH 2-25 times ity of DELICA) 33 00:00: daily. Dx [place] gauge Misc 00 E11.8 Medical Branch lancets 2021-0 Yes [id number] Use 4 Unive rs (ONE TOUCH 2-25 times ity of DELICA) 33 00:00: daily. Dx [place] gauge Misc 00 E11.8 Medical Branch lancets 2021-0 Yes [id number] Use 4 Unive rs (ONE TOUCH 2-25 times ity of DELICA) 33 00:00: daily. Dx [place] gauge Misc 00 E11.8 Medical Branch lancets 2021-0 Yes [id number] Use 4 Unive rs (ONE TOUCH 2-25 times ity of DELICA) 33 00:00: daily. Dx [place] gauge Misc 00 E11.8 Medical Branch lancets 2021-0 Yes [id number] Use 4 Unive rs (ONE TOUCH 2-25 times ity of DELICA) 33 00:00: daily. Dx [place] gauge Misc 00 E11.8 Medical Branch lancets 2021-0 Yes [id number] Use 4 Unive rs (ONE TOUCH 2-25 times ity of DELICA) 33 00:00: daily. Dx [place] gauge Misc 00 E11.8 Medical Branch lancets 0 Yes [id number] Use 4 Unive rs (ONE TOUCH 2-25 times ity of DELICA) 33 00:00: daily. Dx [place] gauge Misc 00 E11.8 Medical Branch lancets 0 Yes [id number] Use 4 Unive rs (ONE TOUCH 2-25 times ity of DELICA) 33 00:00: daily. Dx [place] gauge Misc 00 E11.8 Medical Branch lancets 0 Yes [id number] Use 4 Unive rs (ONE TOUCH 2-25 times ity of DELICA) 33 00:00: daily. Dx [place] gauge Misc 00 E11.8 Medical Branch lancets 0 Yes [id number] Use 4 Unive rs (ONE TOUCH 2-25 times ity of DELICA) 33 00:00: daily. Dx [place] gauge Misc 00 E11.8 Medical Branch lancets 0 Yes [id number] Use 4 Unive rs (ONE TOUCH 2-25 times ity of DELICA) 33 00:00: daily. Dx [place] gauge Misc 00 E11.8 Medical Branch insulin 2021- No [id number] 1{each} 1 Each 4 [facility] syr/ndl 2-25 12-20 (four) ity of U100 half 00:00: 00:00 times [place] melvin 0.5 mL 00 :00 daily. Use Me dical 31 gauge x with Branch 5/16" Syrg insulin 4 times daily. Dx E11.8 insulin 2021- No [id number] 15U inject 15 [facility] aspart 2-25 12-20 Units ity of RAPID 00:00: 00:00 under the [place] (NOVOLOG 00 :00 skin 3 Medical U-100 (three) Branch INSULIN times ASPART) 100 daily unit/mL before injection meals. insulin 2021- No [id number] 1{each} 1 Each 4 [facility] syr/ndl 2-25 12-20 (four) ity of U100 half 00:00: 00:00 times [place] melvin 0.5 mL 00 :00 daily. Use Me dical 31 gauge x with Branch 16" Syrg insulin 4 times daily. Dx E11.8 insulin 2021- No [id number] 15U inject 15 [facility] aspart 2-25 12-20 Units ity of RAPID 00:00: 00:00 under the [place] (NOVOLOG 00 :00 skin 3 Medical U-100 (three) Branch INSULIN times ASPART) 100 daily unit/mL before injection meals. blood sugar 2021- No [id number] Use 4 [facility] diagnostic 2-25 05-23 times ity of (ONETOUCH 00:00: 00:00 daily. Dx [place] VERIO TEST 00 :00 E11.8 Medical STRIPS) Branch strip blood sugar 2021- No [id number] Use 4 [facility] diagnostic 2-25 05-23 times ity of (ONETOUCH 00:00: 00:00 daily. [place]x [place] VERIO TEST 00 :00 E11.8 Medical STRIPS) Branch strip miconazole Yes [id number] 1{appli Insert 1 Univers (MICONAZOLE 2-24 cator} Applicator ity of -7) 2 % 00:00: into vaginal 00 vagina at Medical cream bedtime. Branch miconazole Yes [id number] 1{appli Insert 1 Univers (MICONAZOLE 2-24 cator} Applicator ity of -7) 2 % 00:00: into vaginal 00 vagina at Medical cream bedtime. Branch miconazole Yes [id number] 1{appli Insert 1 Univers (MICONAZOLE 2-24 cator} Applicator ity of -7) 2 % 00:00: into vaginal 00 vagina at Medical cream bedtime. Branch miconazole Yes [id number] 1{appli Insert 1 Univers (MICONAZOLE 2-24 cator} Applicator ity of -7) 2 % 00:00: into vaginal 00 vagina at Medical cream bedtime. Branch miconazole Yes [id number] 1{appli Insert 1 Univers (MICONAZOLE 2-24 cator} Applicator ity of -7) 2 % 00:00: into vaginal 00 vagina at Medical cream bedtime. Branch miconazole Yes [id number] 1{appli Insert 1 Univers (MICONAZOLE 2-24 cator} Applicator ity of -7) 2 % 00:00: into [place] vaginal 00 vagina at Medical cream bedtime. Branch miconazole Yes [id number] 1{appli Insert 1 Univers (MICONAZOLE 2-24 cator} Applicator ity of -7) 2 % 00:00: into [place] vaginal 00 vagina at Medical cream bedtime. Branch miconazole Yes [id number] 1{appli Insert 1 [facility] (MICONAZOLE 2-24 cator} Applicator ity of -7) 2 % 00:00: into [place] vaginal 00 vagina at Medical cream bedtime. Branch miconazole Yes [id number] 1{appli Insert 1 [facility] (MICONAZOLE 2-24 cator} Applicator ity of -7) 2 % 00:00: into [place] vaginal 00 vagina at Medical cream bedtime. Branch miconazole Yes [id number] 1{appli Insert 1 [facility] (MICONAZOLE 2-24 cator} Applicator ity of -7) 2 % 00:00: into [place] vaginal 00 vagina at Medical cream bedtime. Branch miconazole Yes [id number] 1{appli Insert 1 [facility] (MICONAZOLE 2-24 cator} Applicator ity of -7) 2 % 00:00: into [place] vaginal 00 vagina at Medical cream bedtime. Branch miconazole Yes [id number] 1{appli Insert 1 Univers (MICONAZOLE 2-24 cator} Applicator ity of -7) 2 % 00:00: into [place] vaginal 00 vagina at Medical cream bedtime. Branch miconazole Yes [id number] 1{appli Insert 1 Univers (MICONAZOLE 2-24 cator} Applicator ity of -7) 2 % 00:00: into [place] vaginal 00 vagina at Medical cream bedtime. Branch miconazole Yes [id number] 1{appli Insert 1 [facility] (MICONAZOLE 2-24 cator} Applicator ity of -7) 2 % 00:00: into [place] vaginal 00 vagina at Medical cream bedtime. Branch miconazole Yes [id number] 1{appli Insert 1 Univers (MICONAZOLE 2-24 cator} Applicator ity of -7) 2 % 00:00: into [place] vaginal 00 vagina at Medical cream bedtime. Branch miconazole Yes [id number] 1{appli Insert 1 Univers (MICONAZOLE 2-24 cator} Applicator ity of -7) 2 % 00:00: into [place] vaginal 00 vagina at Medical cream bedtime. Branch miconazole Yes [id number] 1{appli Insert 1 Univers (MICONAZOLE 2-24 cator} Applicator ity of -7) 2 % 00:00: into [place] vaginal 00 vagina at Medical cream bedtime. Branch miconazole Yes [id number] 1{appli Insert 1 Univers (MICONAZOLE 2-24 cator} Applicator ity of -7) 2 % 00:00: into [place] vaginal 00 vagina at Medical cream bedtime. [place] miconazole 2022- No [id number] 1{appli Insert 1 Univers (MICONAZOLE 2-24 01-04 cator} Applicator ity of -7) 2 % 00:00: 00:00 into [place] vaginal 00 :00 vagina at Medical cream bedtime. [place] miconazole 2022- No [id number] 1{appli Insert 1 Univers (MICONAZOLE 2-24 01-04 cator} Applicator ity of -7) 2 % 00:00: 00:00 into [place] vaginal 00 :00 vagina at Medical cream bedtime. [place] miconazole 2022- No [id number] 1{appli Insert 1 Univers (MICONAZOLE 2-24 01-04 cator} Applicator ity of -7) 2 % 00:00: 00:00 into [place] vaginal 00 :00 vagina at Medical cream bedtime. Branch miconazole 2022- No [id number] 1{appli Insert 1 [facility] (MICONAZOLE 2-24 01-04 cator} Applicator ity of -7) 2 % 00:00: 00:00 into [place] vaginal 00 :00 vagina at Medical cream bedtime. Branch miconazole 2022- No [id number] 1{appli Insert 1 [facility] (MICONAZOLE 2-24 01-04 cator} Applicator ity of -7) 2 % 00:00: 00:00 into [place] vaginal 00 :00 vagina at Medical cream bedtime. [place] albuterol 2020-02 Yes [id number] 2{puff} Inhale 2 Univers 90 2-13 Puffs ity of mcg/actuati 00:00: every 4 [place] on inhaler 00 (four) Medical hours as Branch needed for Wheezing or Shortness of Breath. albuterol 2020-02 Yes [id number] 2{puff} Inhale 2 [facility] 90 2-13 Puffs ity of mcg/actuati 00:00: every 4 [place] on inhaler 00 (four) Medical hours as Branch needed for Wheezing or Shortness of Breath. albuterol 2020-02 Yes [id number] 2{puff} Inhale 2 Univers 90 2-13 Puffs ity of mcg/actuati 00:00: every 4 [place] on inhaler 00 (four) Medical hours as Branch needed for Wheezing or Shortness of Breath. albuterol 2020-02 Yes [id number] 2{puff} Inhale 2 Univers 90 2-13 Puffs ity of mcg/actuati 00:00: every 4 [place] on inhaler 00 (four) Medical hours as Branch needed for Wheezing or Shortness of Breath. albuterol 2020-02 Yes [id number] 2{puff} Inhale 2 [facility] 90 2-13 Puffs ity of mcg/actuati 00:00: every 4 [place] on inhaler 00 (four) Medical hours as Branch needed for Wheezing or Shortness of Breath. albuterol 2020-02 Yes [id number] 2{puff} Inhale 2 [facility] 90 2-13 Puffs ity of mcg/actuati 00:00: every 4 [place] on inhaler 00 (four) Medical hours as Branch needed for Wheezing or Shortness of Breath. albuterol 2020-02 Yes [id number] 2{puff} Inhale 2 [facility] 90 2-13 Puffs ity of mcg/actuati 00:00: every 4 [place] on inhaler 00 (four) Medical hours as Branch needed for Wheezing or Shortness of Breath. albuterol 2020-02 Yes [id number] 2{puff} Inhale 2 Univers 90 2-13 Puffs ity of mcg/actuati 00:00: every 4 [place] on inhaler 00 (four) Medical hours as Branch needed for Wheezing or Shortness of Breath. albuterol 2020-02 Yes [id number] 2{puff} Inhale 2 [facility] 90 2-13 Puffs ity of mcg/actuati 00:00: every 4 [place] on inhaler 00 (four) Medical hours as Branch needed for Wheezing or Shortness of Breath. albuterol 2020-02 Yes [id number] 2{puff} Inhale 2 [facility] 90 2-13 Puffs ity of mcg/actuati 00:00: every 4 [place] on inhaler 00 (four) Medical hours as Branch needed for Wheezing or Shortness of Breath. albuterol 2020-02 Yes [id number] 2{puff} Inhale 2 [facility] 90 2-13 Puffs ity of mcg/actuati 00:00: every 4 [place] on inhaler 00 (four) Medical hours as Branch needed for Wheezing or Shortness of Breath. albuterol 2020-02 Yes [id number] 2{puff} Inhale 2 [facility] 90 2-13 Puffs ity of mcg/actuati 00:00: every 4 [place] on inhaler 00 (four) Medical hours as Branch needed for Wheezing or Shortness of Breath. albuterol 2020-02 Yes [id number] 2{puff} Inhale 2 [facility] 90 2-13 Puffs ity of mcg/actuati 00:00: every 4 [place] on inhaler 00 (four) Medical hours as Branch needed for Wheezing or Shortness of Breath. albuterol 2020-02 Yes [id number] 2{puff} Inhale 2 [facility] 90 2-13 Puffs ity of mcg/actuati 00:00: every 4 [place] on inhaler 00 (four) Medical hours as Branch needed for Wheezing or Shortness of Breath. albuterol 2020-02 Yes [id number] 2{puff} Inhale 2 [facility] 90 2-13 Puffs ity of mcg/actuati 00:00: every 4 [place] on inhaler 00 (four) Medical hours as Branch needed for Wheezing or Shortness of Breath. albuterol 2020-02 Yes [id number] 2{puff} Inhale 2 [facility] 90 2-13 Puffs ity of mcg/actuati 00:00: every 4 [place] on inhaler 00 (four) Medical hours as Branch needed for Wheezing or Shortness of Breath. albuterol 2020-02 Yes [id number] 2{puff} Inhale 2 [facility] 90 2-13 Puffs ity of mcg/actuati 00:00: every 4 [place] on inhaler 00 (four) Medical hours as Branch needed for Wheezing or Shortness of Breath. albuterol 2020-02 Yes [id number] 2{puff} Inhale 2 [facility] 90 2-13 Puffs ity of mcg/actuati 00:00: every 4 [place] on inhaler 00 (four) Medical hours as Branch needed for Wheezing or Shortness of Breath. albuterol 2020-02 Yes [id number] 2{puff} Inhale 2 [facility] 90 2-13 Puffs ity of mcg/actuati 00:00: every 4 [place] on inhaler 00 (four) Medical hours as Branch needed for Wheezing or Shortness of Breath. albuterol 2020-02 Yes [id number] 2{puff} Inhale 2 [facility] 90 2-13 Puffs ity of mcg/actuati 00:00: every 4 [place] [facility] on inhaler 00 (four) Medical hours as Branch needed for Wheezing or Shortness of Breath. albuterol 2020-02 Yes [id number] 2{puff} Inhale 2 [facility] 90 2-13 Puffs ity of mcg/actuati 00:00: every 4 [place] [facility] on inhaler 00 (four) Medical hours as Branch needed for Wheezing or Shortness of Breath. albuterol 2020-02 Yes [id number] 2{puff} Inhale 2 [facility] 90 2-13 Puffs ity of mcg/actuati 00:00: every 4 [place] [facility] on inhaler 00 (four) Medical hours as Branch needed for Wheezing or Shortness of Breath. albuterol 2020-02 Yes [id number] 2{puff} Inhale 2 [facility] 90 2-13 Puffs ity of mcg/actuati 00:00: every 4 [place] [facility] on inhaler 00 (four) Medical hours as Branch needed for Wheezing or Shortness of Breath. albuterol 2020-02 Yes [id number] 2{puff} Inhale 2 [facility] 90 2-13 Puffs ity of mcg/actuati 00:00: every 4 [place] [facility] on inhaler 00 (four) Medical hours as Branch needed for Wheezing or Shortness of Breath. albuterol 2020-02 Yes [id number] 2{puff} Inhale 2 [facility] 90 2-13 Puffs ity of mcg/actuati 00:00: every 4 [facility] as on inhaler 00 (four) Medical hours as Branch needed for Wheezing or Shortness of Breath. albuterol 2020-02 Yes [id number] 2{puff} Inhale 2 [facility] 90 2-13 Puffs ity of mcg/actuati 00:00: every 4 [facility] as on inhaler 00 (four) Medical hours as Branch needed for Wheezing or Shortness of Breath. albuterol 2020-02 Yes [id number] 2{puff} Inhale 2 [facility] 90 2-13 Puffs ity of mcg/actuati 00:00: every 4 [facility] as on inhaler 00 (four) Medical hours as Branch needed for Wheezing or Shortness of Breath. albuterol 2020-02 Yes [id number] 2{puff} Inhale 2 [facility] 90 2-13 Puffs ity of mcg/actuati 00:00: every 4 [facility] as on inhaler 00 (four) Medical hours as Branch needed for Wheezing or Shortness of Breath. albuterol 2020-02 Yes [id number] 2{puff} Inhale 2 [facility] 90 2-13 Puffs ity of mcg/actuati 00:00: every 4 [facility] as on inhaler 00 (four) Medical hours as Branch needed for Wheezing or Shortness of Breath. albuterol 2020-02 Yes [id number] 2{puff} Inhale 2 [facility] 90 2-13 Puffs ity of mcg/actuati 00:00: every 4 [facility] as on inhaler 00 (four) Medical hours as Branch needed for Wheezing or Shortness of Breath. albuterol 2020-02 Yes [id number] 2{puff} Inhale 2 [facility] 90 2-13 Puffs ity of mcg/actuati 00:00: every 4 [facility] as on inhaler 00 (four) Medical hours as Branch needed for Wheezing or Shortness of Breath. albuterol 2020-02 Yes [id number] 2{puff} Inhale 2 [facility] 90 2-13 Puffs ity of mcg/actuati 00:00: every 4 [facility] on inhaler 00 (four) Medical hours as Branch needed for Wheezing or Shortness of Breath. albuterol 2020-02 Yes [id number] 2{puff} Inhale 2 [facility] 90 2-13 Puffs ity of mcg/actuati 00:00: every 4 [place] [facility] on inhaler 00 (four) Medical hours as Branch needed for Wheezing or Shortness of Breath. albuterol 2020-02 Yes [id number] 2{puff} Inhale 2 [facility] 90 2-13 Puffs ity of mcg/actuati 00:00: every 4 [place] [facility] on inhaler 00 (four) Medical hours as Branch needed for Wheezing or Shortness of Breath. albuterol 2020-02 Yes [id number] 2{puff} Inhale 2 [facility] 90 2-13 Puffs ity of mcg/actuati 00:00: every 4 [place] [facility] on inhaler 00 (four) Medical hours as Branch needed for Wheezing or Shortness of Breath. albuterol 2020-02 Yes [id number] 2{puff} Inhale 2 [facility] 90 2-13 Puffs ity of mcg/actuati 00:00: every 4 [place] on inhaler 00 (four) Medical hours as Branch needed for Wheezing or Shortness of Breath. albuterol 2020-02 Yes [id number] 2{puff} Inhale 2 [facility] 90 2-13 Puffs ity of mcg/actuati 00:00: every 4 [place] [facility] on inhaler 00 (four) Medical hours as Branch needed for Wheezing or Shortness of Breath. albuterol 2020-02 Yes [id number] 2{puff} Inhale 2 [facility] 90 2-13 Puffs ity of mcg/actuati 00:00: every 4 [place] on inhaler 00 (four) Medical hours as Branch needed for Wheezing or Shortness of Breath. albuterol 2020-02 Yes [id number] 2{puff} Inhale 2 [facility] 90 2-13 Puffs ity of mcg/actuati 00:00: every 4 [place] [facility] on inhaler 00 (four) Medical hours as Branch needed for Wheezing or Shortness of Breath. albuterol 2020-02 Yes [id number] 2{puff} Inhale 2 [facility] 90 2-13 Puffs ity of mcg/actuati 00:00: every 4 [facility] on inhaler 00 (four) Medical hours as Branch needed for Wheezing or Shortness of Breath. albuterol 2020-02 Yes [id number] 2{puff} Inhale 2 [facility] 90 2-13 Puffs ity of mcg/actuati 00:00: every 4 [place] on inhaler 00 (four) Medical hours as Branch needed for Wheezing or Shortness of Breath. albuterol 2020-02 Yes [id number] 2{puff} Inhale 2 [facility] 90 2-13 Puffs ity of mcg/actuati 00:00: every 4 [place] on inhaler 00 (four) Medical hours as Branch needed for Wheezing or Shortness of Breath. albuterol 2020-02 Yes [id number] 2{puff} Inhale 2 [facility] 90 2-13 Puffs ity of mcg/actuati 00:00: every 4 [place] [facility] on inhaler 00 (four) Medical hours as Branch needed for Wheezing or Shortness of Breath. albuterol 2020-02 Yes [id number] 2{puff} Inhale 2 [facility] 90 2-13 Puffs ity of mcg/actuati 00:00: every 4 [place] [facility] on inhaler 00 (four) Medical hours as Branch needed for Wheezing or Shortness of Breath. albuterol 2020-02 Yes [id number] 2{puff} Inhale 2 [facility] 90 2-13 Puffs ity of mcg/actuati 00:00: every 4 [place] on inhaler 00 (four) Medical hours as Branch needed for Wheezing or Shortness of Breath. albuterol 2020-02 Yes [id number] 2{puff} Inhale 2 [facility] 90 2-13 Puffs ity of mcg/actuati 00:00: every 4 [place] [facility] on inhaler 00 (four) Medical hours as Branch needed for Wheezing or Shortness of Breath. albuterol 2020-02 Yes [id number] 2{puff} Inhale 2 [facility] 90 2-13 Puffs ity of mcg/actuati 00:00: every 4 [place] [facility] on inhaler 00 (four) Medical hours as Branch needed for Wheezing or Shortness of Breath. albuterol 2020-02 Yes [id number] 2{puff} Inhale 2 [facility] 90 2-13 Puffs ity of mcg/actuati 00:00: every 4 [place] [facility] on inhaler 00 (four) Medical hours as Branch needed for Wheezing or Shortness of Breath. albuterol 2020-02 Yes [id number] 2{puff} Inhale 2 [facility] 90 2-13 Puffs ity of mcg/actuati 00:00: every 4 [facility] on inhaler 00 (four) Medical hours as Branch needed for Wheezing or Shortness of Breath. albuterol 2020-02 Yes [id number] 2{puff} Inhale 2 [facility] 90 2-13 Puffs ity of mcg/actuati 00:00: every 4 [facility] on inhaler 00 (four) Medical hours as Branch needed for Wheezing or Shortness of Breath. albuterol 2020-02 Yes [id number] 2{puff} Inhale 2 [facility] 90 2-13 Puffs ity of mcg/actuati 00:00: every 4 [place] on inhaler 00 (four) Medical hours as Branch needed for Wheezing or Shortness of Breath. albuterol 2020-02 Yes [id number] 2{puff} Inhale 2 [facility] 90 2-13 Puffs ity of mcg/actuati 00:00: every 4 [facility] on inhaler 00 (four) Medical hours as Branch needed for Wheezing or Shortness of Breath. albuterol 2020-02 Yes [id number] 2{puff} Inhale 2 [facility] 90 2-13 Puffs ity of mcg/actuati 00:00: every 4 [facility] as on inhaler 00 (four) Medical hours as Branch needed for Wheezing or Shortness of Breath. albuterol 2020-02 Yes [id number] 2{puff} Inhale 2 [facility] 90 2-13 Puffs ity of mcg/actuati 00:00: every 4 [facility] on inhaler 00 (four) Medical hours as Branch needed for Wheezing or Shortness of Breath. albuterol 2020-02 Yes [id number] 2{puff} Inhale 2 [facility] 90 2-13 Puffs ity of mcg/actuati 00:00: every 4 [facility] as on inhaler 00 (four) Medical hours as Branch needed for Wheezing or Shortness of Breath. albuterol 2020-02 Yes [id number] 2{puff} Inhale 2 [facility] 90 2-13 Puffs ity of mcg/actuati 00:00: every 4 [facility] on inhaler 00 (four) Medical hours as Branch needed for Wheezing or Shortness of Breath. albuterol 2020-02 Yes [id number] 2{puff} Inhale 2 [facility] 90 2-13 Puffs ity of mcg/actuati 00:00: every 4 [facility] as on inhaler 00 (four) Medical hours as Branch needed for Wheezing or Shortness of Breath. albuterol 2020-02 Yes [id number] 2{puff} Inhale 2 [facility] 90 2-13 Puffs ity of mcg/actuati 00:00: every 4 [facility] on inhaler 00 (four) Medical hours as Branch needed for Wheezing or Shortness of Breath. albuterol 2020-02 Yes [id number] 2{puff} Inhale 2 [facility] 90 2-13 Puffs ity of mcg/actuati 00:00: every 4 [facility] as on inhaler 00 (four) Medical hours as Branch needed for Wheezing or Shortness of Breath. albuterol 2020-02 Yes [id number] 2{puff} Inhale 2 [facility] 90 2-13 Puffs ity of mcg/actuati 00:00: every 4 [facility] on inhaler 00 (four) Medical hours as Branch needed for Wheezing or Shortness of Breath. albuterol 2020-02 Yes [id number] 2{puff} Inhale 2 [facility] 90 2-13 Puffs ity of mcg/actuati 00:00: every 4 [facility] as on inhaler 00 (four) Medical hours as Branch needed for Wheezing or Shortness of Breath. albuterol 2020-02 Yes [id number] 2{puff} Inhale 2 [facility] 90 2-13 Puffs ity of mcg/actuati 00:00: every 4 [facility] on inhaler 00 (four) Medical hours as Branch needed for Wheezing or Shortness of Breath. albuterol 2020-02 Yes [id number] 2{puff} Inhale 2 [facility] 90 2-13 Puffs ity of mcg/actuati 00:00: every 4 [facility] as on inhaler 00 (four) Medical hours as Branch needed for Wheezing or Shortness of Breath. albuterol 2020-02 Yes [id number] 2{puff} Inhale 2 [facility] 90 2-13 Puffs ity of mcg/actuati 00:00: every 4 [facility] as on inhaler 00 (four) Medical hours as Branch needed for Wheezing or Shortness of Breath. albuterol 2020-02 Yes [id number] 2{puff} Inhale 2 [facility] 90 2-13 Puffs ity of mcg/actuati 00:00: every 4 [facility] as on inhaler 00 (four) Medical hours as Branch needed for Wheezing or Shortness of Breath. BD INSULIN Yes [facility] SYRINGE 9-29 ity of ULTRA-FINE 00:00: [place] 1 mL 31 00 Medical gauge x Branch 5/16 Syrg BD INSULIN Yes [facility] SYRINGE 9-29 ity of ULTRA-FINE 00:00: [place] 1 mL 31 00 Medical gauge x Branch 5/16 Syrg BD INSULIN 2021-0 Yes [facility] SYRINGE 11-07 ity of ULTRA-FINE 00:00: [place] 1 mL 31 00 Medical gauge x Branch 5/16 Syrg BD INSULIN 2021-0 Yes [facility] SYRINGE 11-07 ity of ULTRA-FINE 00:00: [place] 1 mL 31 00 Medical gauge x Branch 5/16 Syrg BD INSULIN 202-0 Yes [facility] SYRINGE 11-07 ity of ULTRA-FINE 00:00: [place] 1 mL 31 00 Medical gauge x Branch 5/16 Syrg BD INSULIN 2021-0 Yes [facility] SYRINGE 11-07 ity of ULTRA-FINE 00:00: [place] 1 mL 31 00 Medical gauge x Branch 5/16 Syrg BD INSULIN 202-0 Yes [facility] SYRINGE 11-07 ity of ULTRA-FINE 00:00: [place] 1 mL 31 00 Medical gauge x Branch 5/16 Syrg BD INSULIN 202-0 Yes [facility] SYRINGE 11-07 ity of ULTRA-FINE 00:00: [place] 1 mL 31 00 Medical gauge x Branch 5/16 Syrg BD INSULIN 2021-0 Yes [facility] SYRINGE 11-07 ity of ULTRA-FINE 00:00: [place] 1 mL 31 00 Medical gauge x Branch 5/16 Syrg BD INSULIN 202-0 Yes [facility] SYRINGE 11-07 ity of ULTRA-FINE 00:00: [place] 1 mL 31 00 Medical gauge x Branch 5/16 Syrg BD INSULIN 2021-0 Yes [facility] SYRINGE 11-07 ity of ULTRA-FINE 00:00: [place] 1 mL 31 00 Medical gauge x Branch 5/16 Syrg BD INSULIN 202-0 Yes [facility] SYRINGE 11-07 ity of ULTRA-FINE 00:00: [place] 1 mL 31 00 Medical gauge x Branch 5/16 Syrg BD INSULIN 202-0 Yes [facility] SYRINGE 11-07 ity of ULTRA-FINE 00:00: [place] 1 mL 31 00 Medical gauge x Branch 5/16 Syrg BD INSULIN 202-0 Yes [facility] SYRINGE 11-07 ity of ULTRA-FINE 00:00: [place] 1 mL 31 00 Medical gauge x Branch 5/16 Syrg BD INSULIN 2021-0 Yes [facility] SYRINGE 11-07 ity of ULTRA-FINE 00:00: [place] 1 mL 31 00 Medical gauge x Branch 5/16 Syrg BD INSULIN 2021-0 Yes [facility] SYRINGE 11-07 ity of ULTRA-FINE 00:00: [place] 1 mL 31 00 Medical gauge x Branch 5/16 Syrg BD INSULIN 2021-0 Yes [facility] SYRINGE 11-07 ity of ULTRA-FINE 00:00: [place] 1 mL 31 00 Medical gauge x Branch 5/16 Syrg BD INSULIN 202-0 Yes [facility] SYRINGE 11-07 ity of ULTRA-FINE 00:00: [place] 1 mL 31 00 Medical gauge x Branch 5/16 Syrg BD INSULIN 202-0 Yes [facility] SYRINGE 11-07 ity of ULTRA-FINE 00:00: [place] 1 mL 31 00 Medical gauge x Branch 5/16 Syrg BD INSULIN 202-0 Yes [facility] SYRINGE 11-07 ity of ULTRA-FINE 00:00: [place] 1 mL 31 00 Medical gauge x Branch 5/16 Syrg BD INSULIN 202-0 Yes [facility] SYRINGE 11-07 ity of ULTRA-FINE 00:00: [place] 1 mL 31 00 Medical gauge x Branch 5/16 Syrg BD INSULIN 202-0 Yes [facility] SYRINGE 11-07 ity of ULTRA-FINE 00:00: [place] 1 mL 31 00 Medical gauge x Branch 5/16 Syrg BD INSULIN 202-0 Yes [facility] SYRINGE 11-07 ity of ULTRA-FINE 00:00: [place] 1 mL 31 00 Medical gauge x Branch 5/16 Syrg BD INSULIN 2020-0 Yes [facility] SYRINGE 11-07 ity of ULTRA-FINE 00:00: [place] 1 mL 31 00 Medical gauge x Branch 5/16 Syrg BD INSULIN 202-0 Yes [facility] SYRINGE 11-07 ity of ULTRA-FINE 00:00: [place] 1 mL 31 00 Medical gauge x Branch 5/16 Syrg BD INSULIN 202-0 Yes [facility] SYRINGE 11-07 ity of ULTRA-FINE 00:00: [place] 1 mL 31 00 Medical gauge x Branch 5/16 Syrg BD INSULIN 202-0 Yes [facility] SYRINGE 11-07 ity of ULTRA-FINE 00:00: [place] 1 mL 31 00 Medical gauge x Branch 5/16 Syrg BD INSULIN 202-0 Yes [facility] SYRINGE 11-07 ity of ULTRA-FINE 00:00: [place] 1 mL 31 00 Medical gauge x Branch 5/16 Syrg BD INSULIN 2021-0 Yes [facility] SYRINGE 11-07 ity of ULTRA-FINE 00:00: [place] 1 mL 31 00 Medical gauge x Branch 5/16 Syrg BD INSULIN 2021-0 Yes [facility] SYRINGE 11-07 ity of ULTRA-FINE 00:00: [place] 1 mL 31 00 Medical gauge x Branch 5/16 Syrg BD INSULIN 1-0 Yes [facility] SYRINGE 11-07 ity of ULTRA-FINE 00:00: [place] 1 mL 31 00 Medical gauge x Branch 5/16 Syrg BD INSULIN 2021-0 Yes [facility] SYRINGE 11-07 ity of ULTRA-FINE 00:00: [place] 1 mL 31 00 Medical gauge x Branch 5/16 Syrg BD INSULIN 202-0 Yes [facility] SYRINGE 11-07 ity of ULTRA-FINE 00:00: [place] 1 mL 31 00 Medical gauge x Branch 5/16 Syrg BD INSULIN 202-0 Yes [facility] SYRINGE 11-07 ity of ULTRA-FINE 00:00: [place] 1 mL 31 00 Medical gauge x Branch 5/16 Syrg BD INSULIN 2020-0 Yes [facility] SYRINGE 11-07 ity of ULTRA-FINE 00:00: [place] 1 mL 31 00 Medical gauge x Branch 5/16 Syrg BD INSULIN 202-0 Yes [facility] SYRINGE 11-07 ity of ULTRA-FINE 00:00: [place] 1 mL 31 00 Medical gauge x Branch 5/16 Syrg BD INSULIN 202-0 Yes [facility] SYRINGE 11-07 ity of ULTRA-FINE 00:00: [place] 1 mL 31 00 Medical gauge x Branch 5/16 Syrg BD INSULIN 2020-0 Yes [facility] SYRINGE 11-07 ity of ULTRA-FINE 00:00: [place] 1 mL 31 00 Medical gauge x Branch 5/16 Syrg BD INSULIN 202-0 Yes [facility] SYRINGE 11-07 ity of ULTRA-FINE 00:00: [place] 1 mL 31 00 Medical gauge x Branch 5/16 Syrg BD INSULIN 202-0 Yes [facility] SYRINGE 11-07 ity of ULTRA-FINE 00:00: [place] 1 mL 31 00 Medical gauge x Branch 5/16 Syrg BD INSULIN 2021-0 Yes [facility] SYRINGE 11-07 ity of ULTRA-FINE 00:00: [place] 1 mL 31 00 Medical gauge x Branch 5/16 Syrg BD INSULIN 2021-0 Yes [facility] SYRINGE 11-07 ity of ULTRA-FINE 00:00: [place] 1 mL 31 00 Medical gauge x Branch 5/16 Syrg BD INSULIN 2021-0 Yes [facility] SYRINGE 11-07 ity of ULTRA-FINE 00:00: [place] 1 mL 31 00 Medical gauge x Branch 5/16 Syrg BD INSULIN 202-0 Yes [facility] SYRINGE 11-07 ity of ULTRA-FINE 00:00: [place] 1 mL 31 00 Medical gauge x Branch 5/16 Syrg BD INSULIN 2021-0 Yes [facility] SYRINGE 11-07 ity of ULTRA-FINE 00:00: [place] 1 mL 31 00 Medical gauge x Branch 5/16 Syrg BD INSULIN 2021-0 Yes [facility] SYRINGE 11-07 ity of ULTRA-FINE 00:00: [place] 1 mL 31 00 Medical gauge x Branch 5/16 Syrg BD INSULIN 2021-0 Yes [facility] SYRINGE 11-07 ity of ULTRA-FINE 00:00: [place] 1 mL 31 00 Medical gauge x Branch 5/16 Syrg BD INSULIN 202-0 Yes [facility] SYRINGE 11-07 ity of ULTRA-FINE 00:00: [place] 1 mL 31 00 Medical gauge x Branch 5/16 Syrg BD INSULIN 202-0 Yes [facility] SYRINGE 11-07 ity of ULTRA-FINE 00:00: [place] 1 mL 31 00 Medical gauge x Branch 5/16 Syrg BD INSULIN 202-0 Yes [facility] SYRINGE 11-07 ity of ULTRA-FINE 00:00: [place] 1 mL 31 00 Medical gauge x Branch 5/16 Syrg BD INSULIN 2021-0 Yes [facility] SYRINGE 11-07 ity of ULTRA-FINE 00:00: [place] 1 mL 31 00 Medical gauge x Branch 5/16 Syrg BD INSULIN 2021-0 Yes [facility] SYRINGE 11-07 ity of ULTRA-FINE 00:00: [place] 1 mL 31 00 Medical gauge x Branch 5/16 Syrg BD INSULIN 2021-0 Yes [facility] SYRINGE 11-07 ity of ULTRA-FINE 00:00: [place] 1 mL 31 00 Medical gauge x Branch 5/16 Syrg BD INSULIN 2021-0 Yes [facility] SYRINGE 11-07 ity of ULTRA-FINE 00:00: [place] 1 mL 31 00 Medical gauge x Branch 5/16 Syrg BD INSULIN 2021-0 Yes [facility] SYRINGE 11-07 ity of ULTRA-FINE 00:00: [place] 1 mL 31 00 Medical gauge x Branch 5/16 Syrg BD INSULIN 2021-0 Yes [facility] SYRINGE 11-07 ity of ULTRA-FINE 00:00: [place] 1 mL 31 00 Medical gauge x Branch 5/16 Syrg BD INSULIN 2021-0 Yes [facility] SYRINGE 11-07 ity of ULTRA-FINE 00:00: [place] 1 mL 31 00 Medical gauge x Branch 5/16 Syrg BD INSULIN 2020-0 Yes [facility] SYRINGE 9 ity of ULTRA-FINE [...] gauge x Branch 5/16 Syrg valACYclovi Yes [id number] 500mg Take 1 [facility] r (VALTREX) 9-20 tablet by ity of 500 mg 00:00: mouth 2 [place] tablet 00 (two) Medical times Branch daily. valACYclovi Yes [id number] 500mg Take 1 [facility] r (VAL[facility]RE[facility]) 9-20 tablet by ity of 500 mg 00:00: mouth 2 [place] tablet 00 (two) Medical times Branch daily. valACYclovi Yes [id number] 500mg Take 1 [facility] r ([facility]) 9-20 tablet by ity of 500 mg 00:00: mouth 2 [place] tablet 00 (two) Medical times Branch daily. valACYclovi Yes [id number] 500mg Take 1 [facility] r (VAL[facility]) 9-20 tablet by ity of 500 mg 00:00: mouth 2 [place] tablet 00 (two) Medical times Branch daily. valACYclovi Yes [id number] 500mg Take 1 [facility] r (VAL[facility]) 9-20 tablet by ity of 500 mg 00:00: mouth 2 [place] tablet 00 (two) Medical times Branch daily. valACYclovi 2020-0 Yes [id number] 500mg Take 1 [facility] r (VAL[facility]REX) 9-20 tablet by ity of 500 mg 00:00: mouth 2 [place] tablet 00 (two) Medical times Branch daily. valACYclovi 0 Yes [id number] 500mg Take 1 [facility] r (VAL[facility]) 9-20 tablet by ity of 500 mg 00:00: mouth 2 [place] tablet 00 (two) Medical times Branch daily. valACYclovi 0 Yes [id number] 500mg Take 1 [facility] r (VAL[facility]) 9-20 tablet by ity of 500 mg 00:00: mouth 2 [place] tablet 00 (two) Medical times Branch daily. valACYclovi 0 Yes [id number] 500mg Take 1 [facility] r (VAL[facility]RE[facility]) 9-20 tablet by ity of 500 mg 00:00: mouth 2 [place] tablet 00 (two) Medical times Branch daily. valACYclovi Yes [id number] 500mg Take 1 [facility] r (VAL[facility]) 9-20 tablet by ity of 500 mg 00:00: mouth 2 [place] tablet 00 (two) Medical times Branch daily. valACYclovi 0 Yes [id number] 500mg Take 1 [facility] r (VAL[facility]) 9-20 tablet by ity of 500 mg 00:00: mouth 2 [place] tablet 00 (two) Medical times Branch daily. valACYclovi 0 Yes [id number] 500mg Take 1 [facility] r ([facility]) 9-20 tablet by ity of 500 mg 00:00: mouth 2 [place] tablet 00 (two) Medical times Branch daily. valACYclovi 0 Yes [id number] 500mg Take 1 [facility] r ([facility]) 9-20 tablet by ity of 500 mg 00:00: mouth 2 [place] tablet 00 (two) Medical times Branch daily. valACYclovi 0 Yes [id number] 500mg Take 1 [facility] r ([facility]) 9-20 tablet by ity of 500 mg 00:00: mouth 2 [place] tablet 00 (two) Medical times Branch daily. valACYclovi 2020-0 Yes [id number] 500mg Take 1 [facility] r ([facility]) 9-20 tablet by ity of 500 mg 00:00: mouth 2 [place] tablet 00 (two) Medical times Branch daily. valACYclovi 2020-0 Yes [id number] 500mg Take 1 [facility] r ([facility]) 9-20 tablet by ity of 500 mg 00:00: mouth 2 [place] tablet 00 (two) Medical times Branch daily. valACYclovi 0 Yes [id number] 500mg Take 1 [facility] r ([facility]) 9-20 tablet by ity of 500 mg 00:00: mouth 2 [place] tablet 00 (two) Medical times Branch daily. valACYclovi 0 Yes [id number] 500mg Take 1 [facility] r ([facility]) 9-20 tablet by ity of 500 mg 00:00: mouth 2 [place] tablet 00 (two) Medical times Branch daily. valACYclovi 0 Yes [id number] 500mg Take 1 [facility] r ([facility]) 9-20 tablet by ity of 500 mg 00:00: mouth 2 [place] tablet 00 (two) Medical times Branch daily. valACYclovi 0 Yes [id number] 500mg Take 1 [facility] r ([facility]) 9-20 tablet by ity of 500 mg 00:00: mouth 2 [place] tablet 00 (two) Medical times Branch daily. valACYclovi 0 Yes [id number] 500mg Take 1 [facility] r ([facility]) 9-20 tablet by ity of 500 mg 00:00: mouth 2 [place] tablet 00 (two) Medical times Branch daily. valACYclovi 0 Yes [id number] 500mg Take 1 [facility] r ([facility]) 9-20 tablet by ity of 500 mg 00:00: mouth 2 [place] tablet 00 (two) Medical times Branch daily. valACYclovi 0 Yes [id number] 500mg Take 1 [facility] r ([facility]) 9-20 tablet by ity of 500 mg 00:00: mouth 2 [place] tablet 00 (two) Medical times Branch daily. valACYclovi 2020-0 Yes [id number] 500mg Take 1 [facility] r ([facility]) 9-20 tablet by ity of 500 mg 00:00: mouth 2 [place] tablet 00 (two) Medical times Branch daily. valACYclovi 2020-0 Yes [id number] 500mg Take 1 [facility] r ([facility]) 9-20 tablet by ity of 500 mg 00:00: mouth 2 [place] tablet 00 (two) Medical times Branch daily. valACYclovi 2021-0 Yes [id number] 500mg Take 1 [facility] r ([facility]) 9-20 tablet by ity of 500 mg 00:00: mouth 2 [place] tablet 00 (two) Medical times Branch daily. valACYclovi 0 Yes [id number] 500mg Take 1 [facility] r ([facility]) 9-20 tablet by ity of 500 mg 00:00: mouth 2 [place] tablet 00 (two) Medical times Branch daily. valACYclovi 0 Yes [id number] 500mg Take 1 [facility] r ([facility]) 9-20 tablet by ity of 500 mg 00:00: mouth 2 [place] tablet 00 (two) Medical times Branch daily. valACYclovi Yes [id number] 500mg Take 1 [facility] r ([facility]) 9-20 tablet by ity of 500 mg 00:00: mouth 2 [place] tablet 00 (two) Medical times Branch daily. valACYclovi Yes [id number] 500mg Take 1 [facility] r ([facility]) 9-20 tablet by ity of 500 mg 00:00: mouth 2 [place] tablet 00 (two) Medical times Branch daily. valACYclovi Yes [id number] 500mg Take 1 [facility] r ([facility]) 9-20 tablet by ity of 500 mg 00:00: mouth 2 [place] tablet 00 (two) Medical times Branch daily. valACYclovi Yes [id number] 500mg Take 1 [facility] r ([facility]) 9-20 tablet by ity of 500 mg 00:00: mouth 2 [place] tablet 00 (two) Medical times Branch daily. valACYclovi Yes [id number] 500mg Take 1 [facility] r ([facility]) 9-20 tablet by ity of 500 mg 00:00: mouth 2 [place] tablet 00 (two) Medical times Branch daily. valACYclovi Yes [id number] 500mg Take 1 [facility] r ([facility]) 9-20 tablet by ity of 500 mg 00:00: mouth 2 [place] tablet 00 (two) Medical times Branch daily. valACYclovi 0 Yes [id number] 500mg Take 1 [facility] r ([facility]) 9-20 tablet by ity of 500 mg 00:00: mouth 2 [place] tablet 00 (two) Medical times Branch daily. valACYclovi Yes [id number] 500mg Take 1 [facility] r ([facility]) 9-20 tablet by ity of 500 mg 00:00: mouth 2 [place] tablet 00 (two) Medical times Branch daily. valACYclovi 0 Yes [id number] 500mg Take 1 [facility] r ([facility]) 9-20 tablet by ity of 500 mg 00:00: mouth 2 [place] tablet 00 (two) Medical times Branch daily. valACYclovi 0 Yes [id number] 500mg Take 1 [facility] r ([facility]) 9-20 tablet by ity of 500 mg 00:00: mouth 2 [place] tablet 00 (two) Medical times Branch daily. valACYclovi 0 Yes [id number] 500mg Take 1 [facility] r ([facility]) 9-20 tablet by ity of 500 mg 00:00: mouth 2 [place] tablet 00 (two) Medical times Branch daily. valACYclovi Yes [id number] 500mg Take 1 [facility] r ([facility]) 9-20 tablet by ity of 500 mg 00:00: mouth 2 [place] tablet 00 (two) Medical times Branch daily. valACYclovi Yes [id number] 500mg Take 1 [facility] r ([facility]) 9-20 tablet by ity of 500 mg 00:00: mouth 2 [place] tablet 00 (two) Medical times Branch daily. valACYclovi Yes [id number] 500mg Take 1 [facility] r ([facility]) 9-20 tablet by ity of 500 mg 00:00: mouth 2 [place] tablet 00 (two) Medical times Branch daily. valACYclovi Yes [id number] 500mg Take 1 [facility] r ([facility]) 9-20 tablet by ity of 500 mg 00:00: mouth 2 [place] tablet 00 (two) Medical times Branch daily. valACYclovi 0 Yes [id number] 500mg Take 1 [facility] r ([facility]) 9-20 tablet by ity of 500 mg 00:00: mouth 2 [place] tablet 00 (two) Medical times Branch daily. valACYclovi 0 Yes [id number] 500mg Take 1 [facility] r ([facility]) 9-20 tablet by ity of 500 mg 00:00: mouth 2 [place] tablet 00 (two) Medical times Branch daily. valACYclovi 0 Yes [id number] 500mg Take 1 [facility] r ([facility]) 9-20 tablet by ity of 500 mg 00:00: mouth 2 [place] tablet 00 (two) Medical times Branch daily. valACYclovi 0 Yes [id number] 500mg Take 1 [facility] r ([facility]) 9-20 tablet by ity of 500 mg 00:00: mouth 2 [place] tablet 00 (two) Medical times Branch daily. valACYclovi 0 Yes [id number] 500mg Take 1 [facility] r ([facility]) 9-20 tablet by ity of 500 mg 00:00: mouth 2 [place] tablet 00 (two) Medical times Branch daily. valACYclovi 0 Yes [id number] 500mg Take 1 [facility] r ([facility]) 9-20 tablet by ity of 500 mg 00:00: mouth 2 [place] tablet 00 (two) Medical times Branch daily. valACYclovi 0 Yes [id number] 500mg Take 1 [facility] r ([facility]) 9-20 tablet by ity of 500 mg 00:00: mouth 2 [place] tablet 00 (two) Medical times Branch daily. valACYclovi Yes [id number] 500mg Take 1 [facility] r ([facility]) 9-20 tablet by ity of 500 mg 00:00: mouth 2 [place] tablet 00 (two) Medical times Branch daily. valACYclovi Yes [id number] 500mg Take 1 [facility] r ([facility]) 9-20 tablet by ity of 500 mg 00:00: mouth 2 [place] tablet 00 (two) Medical times Branch daily. valACYclovi 0 Yes [id number] 500mg Take 1 [facility] r ([facility]) 9-20 tablet by ity of 500 mg 00:00: mouth 2 [place] tablet 00 (two) Medical times Branch daily. valACYclovi 0 Yes [id number] 500mg Take 1 [facility] r ([facility]) 9-20 tablet by ity of 500 mg 00:00: mouth 2 [place] tablet 00 (two) Medical times Branch daily. valACYclovi 0 Yes [id number] 500mg Take 1 [facility] r ([facility]) 9-20 tablet by ity of 500 mg 00:00: mouth 2 [place] tablet 00 (two) Medical times Branch daily. valACYclovi 0 Yes [id number] 500mg Take 1 [facility] r ([facility]) 9-20 tablet by ity of 500 mg 00:00: mouth 2 [place] tablet 00 (two) Medical times Branch daily. valACYclovi 0 Yes [id number] 500mg Take 1 [facility] r ([facility]) 9-20 tablet by ity of 500 mg 00:00: mouth 2 [place] tablet 00 (two) Medical times Branch daily. valACYclovi 0 Yes [id number] 500mg Take 1 [facility] r ([facility]) 9-20 tablet by ity of 500 mg 00:00: mouth 2 [place] tablet 00 (two) Medical times Branch daily. valACYclovi 0 Yes [id number] 500mg Take 1 [facility] r ([facility]) 9-20 tablet by ity of 500 mg 00:00: mouth 2 [place] tablet 00 (two) Medical times Branch daily. valACYclovi 0 Yes [id number] 500mg Take 1 [facility] r ([facility]) 9-20 tablet by ity of 500 mg 00:00: mouth 2 [place] tablet 00 (two) Medical times Branch daily. valACYclovi 0 Yes [id number] 500mg Take 1 [facility] r (VALTREX) 9-20 tablet by ity of 500 mg 00:00: mouth 2 [place] tablet 00 (two) Medical times Branch daily. valACYclovi Yes [id number] 500mg Take 1 [facility] (VALTREX) 9-20 tablet by ity of 500 mg 00:00: mouth 2 [place] tablet 00 (two) Medical times Branch daily. valACYclovi 0 Yes [id number] 500mg Take 1 [facility] (VALTREX) 9-20 tablet by ity of 500 mg 00:00: mouth 2 [place] tablet 00 (two) Medical times Branch daily. valACYclovi 0 Yes [id number] 500mg Take 1 [facility] (VALTREX) 9-20 tablet by ity of 500 mg 00:00: mouth 2 [place] tablet 00 (two) Medical times Branch daily. valACYclovi Yes [id number] 500mg Take 1 [facility] (VALTREX) 9-20 tablet by ity of 500 mg 00:00: mouth 2 [place] tablet 00 (two) Medical times Branch daily. lisinopriL Yes [id number] 1.25mg Take 0.5 Univers 2.5 mg 8-07 tablets by ity of tablet 00:00: mouth [place] 00 daily. Medical Branch lisinopriL 2020-0 Yes [id number] 1.25mg Take 0.5 [facility] 2.5 mg 8-07 tablets by ity of tablet 00:00: mouth [place] 00 daily. Medical Branch lisinopriL 0 Yes [id number] 1.25mg Take 0.5 [facility] 2.5 mg 8-07 tablets by ity of tablet 00:00: mouth [place] 00 daily. Medical Branch lisinopriL 0 Yes [id number] 1.25mg Take 0.5 Univers 2.5 mg 8-07 tablets by ity of tablet 00:00: mouth [place] 00 daily. Medical Branch lisinopriL 0 Yes [id number] 1.25mg Take 0.5 Univers 2.5 mg 8-07 tablets by ity of tablet 00:00: mouth [place] 00 daily. Medical Branch lisinopriL 0 Yes [id number] 1.25mg Take 0.5 [facility] 2.5 mg 8-07 tablets by ity of tablet 00:00: mouth [place] 00 daily. [facility] lisinopriL Yes [id number] 1.25mg Take 0.5 Univers 2.5 mg 8-07 tablets by ity of tablet 00:00: mouth [place] 00 daily. Medical Branch lisinopriL 0 Yes [id number] 1.25mg Take 0.5 Univers 2.5 mg 8-07 tablets by ity of tablet 00:00: mouth [place] 00 daily. Medical Branch lisinopriL 0 Yes [id number] 1.25mg Take 0.5 [facility] 2.5 mg 8-07 tablets by ity of tablet 00:00: mouth [place] 00 daily. Medical Branch lisinopriL 0 Yes [id number] 1.25mg Take 0.5 [facility] 2.5 mg 8-07 tablets by ity of tablet 00:00: mouth [place] 00 daily. Medical Branch lisinopriL 0 Yes [id number] 1.25mg Take 0.5 Univers 2.5 mg 8-07 tablets by ity of tablet 00:00: mouth [place] 00 daily. Medical Branch lisinopriL 0 Yes [id number] 1.25mg Take 0.5 [facility] 2.5 mg 8-07 tablets by ity of tablet 00:00: mouth [place] 00 daily. [facility] lisinopriL 0 Yes [id number] 1.25mg Take 0.5 Univers 2.5 mg 8-07 tablets by ity of tablet 00:00: mouth [place] 00 daily. Medical Branch lisinopriL Yes [id number] 1.25mg Take 0.5 [facility] 2.5 mg 8-07 tablets by ity of tablet 00:00: mouth [place] 00 daily. Medical Branch lisinopriL 0 Yes [id number] 1.25mg Take 0.5 [facility] 2.5 mg 8-07 tablets by ity of tablet 00:00: mouth [place] 00 daily. Medical Branch lisinopriL 0 Yes [id number] 1.25mg Take 0.5 [facility] 2.5 mg 8-07 tablets by ity of tablet 00:00: mouth [place] 00 daily. [facility] lisinopriL 0 Yes [id number] 1.25mg Take 0.5 [facility] 2.5 mg 8-07 tablets by ity of tablet 00:00: mouth [place] 00 daily. [facility] lisinopriL Yes [id number] 1.25mg Take 0.5 [facility] 2.5 mg 8-07 tablets by ity of tablet 00:00: mouth [place] 00 daily. [facility] lisinopriL Yes [id number] 1.25mg Take 0.5 [facility] 2.5 mg 8-07 tablets by ity of tablet 00:00: mouth [place] 00 daily. Medical Branch lisinopriL 0 Yes [id number] 1.25mg Take 0.5 [facility] 2.5 mg 8-07 tablets by ity of tablet 00:00: mouth [place] 00 daily. [facility] lisinopriL Yes [id number] 1.25mg Take 0.5 [facility] 2.5 mg 8-07 tablets by ity of tablet 00:00: mouth [place] 00 daily. Medical Branch lisinopriL 0 Yes [id number] 1.25mg Take 0.5 [facility] 2.5 mg 8-07 tablets by ity of tablet 00:00: mouth [place] 00 daily. [facility] lisinopriL 0 Yes [id number] 1.25mg Take 0.5 [facility] 2.5 mg 8-07 tablets by ity of tablet 00:00: mouth [place] 00 daily. [facility] lisinopriL 0 Yes [id number] 1.25mg Take 0.5 Univers 2.5 mg 8-07 tablets by ity of tablet 00:00: mouth [place] 00 daily. [facility] lisinopriL 2021-0 Yes [id number] 1.25mg Take 0.5 [facility] 2.5 mg 8-07 tablets by ity of tablet 00:00: mouth [place] 00 daily. Medical Branch lisinopriL 0 Yes [id number] 1.25mg Take 0.5 [facility] 2.5 mg 8-07 tablets by ity of tablet 00:00: mouth [place] 00 daily. Medical Branch lisinopriL 2020-0 Yes [id number] 1.25mg Take 0.5 [facility] 2.5 mg 8-07 tablets by ity of tablet 00:00: mouth [place] 00 daily. Medical Branch lisinopriL 0 Yes [id number] 1.25mg Take 0.5 [facility] 2.5 mg 8-07 tablets by ity of tablet 00:00: mouth [place] 00 daily. [facility] lisinopriL 0 Yes [id number] 1.25mg Take 0.5 [facility] 2.5 mg 8-07 tablets by ity of tablet 00:00: mouth [place] 00 daily. [facility] lisinopriL 0 Yes [id number] 1.25mg Take 0.5 [facility] 2.5 mg 8-07 tablets by ity of tablet 00:00: mouth [place] 00 daily. Medical Branch lisinopriL 0 Yes [id number] 1.25mg Take 0.5 [facility] 2.5 mg 8-07 tablets by ity of tablet 00:00: mouth [place] 00 daily. [facility] lisinopriL 0 Yes [id number] 1.25mg Take 0.5 [facility] 2.5 mg 8-07 tablets by ity of tablet 00:00: mouth [place] 00 daily. [facility] lisinopriL 0 Yes [id number] 1.25mg Take 0.5 [facility] 2.5 mg 8-07 tablets by ity of tablet 00:00: mouth [place] 00 daily. Medical Branch lisinopriL 2020-0 Yes [id number] 1.25mg Take 0.5 [facility] 2.5 mg 8-07 tablets by ity of tablet 00:00: mouth [place] 00 daily. [facility] lisinopriL 0 Yes [id number] 1.25mg Take 0.5 [facility] 2.5 mg 8-07 tablets by ity of tablet 00:00: mouth [place] 00 daily. [facility] lisinopriL 2020-0 Yes [id number] 1.25mg Take 0.5 [facility] 2.5 mg 8-07 tablets by ity of tablet 00:00: mouth [place] 00 daily. Medical Branch lisinopriL 2020-0 Yes [id number] 1.25mg Take 0.5 [facility] 2.5 mg 8-07 tablets by ity of tablet 00:00: mouth [place] 00 daily. Medical Branch lisinopriL 2020-0 Yes [id number] 1.25mg Take 0.5 [facility] 2.5 mg 8-07 tablets by ity of tablet 00:00: mouth [place] 00 daily. Medical Branch lisinopriL 0 Yes [id number] 1.25mg Take 0.5 [facility] 2.5 mg 8-07 tablets by ity of tablet 00:00: mouth [place] 00 daily. [facility] lisinopriL Yes [id number] 1.25mg Take 0.5 [facility] 2.5 mg 8-07 tablets by ity of tablet 00:00: mouth [place] 00 daily. [facility] lisinopriL 0 Yes [id number] 1.25mg Take 0.5 [facility] 2.5 mg 8-07 tablets by ity of tablet 00:00: mouth [place] 00 daily. Medical Branch lisinopriL 0 Yes [id number] 1.25mg Take 0.5 [facility] 2.5 mg 8-07 tablets by ity of tablet 00:00: mouth [place] 00 daily. [facility] lisinopriL 0 Yes [id number] 1.25mg Take 0.5 [facility] 2.5 mg 8-07 tablets by ity of tablet 00:00: mouth [place] 00 daily. [facility] lisinopriL 0 Yes [id number] 1.25mg Take 0.5 [facility] 2.5 mg 8-07 tablets by ity of tablet 00:00: mouth [place] 00 daily. [facility] lisinopriL 0 Yes [id number] 1.25mg Take 0.5 [facility] 2.5 mg 8-07 tablets by ity of tablet 00:00: mouth [place] 00 daily. [facility] lisinopriL 0 Yes [id number] 1.25mg Take 0.5 [facility] 2.5 mg 8-07 tablets by ity of tablet 00:00: mouth [place] 00 daily. [facility] lisinopriL 0 Yes [id number] 1.25mg Take 0.5 [facility] 2.5 mg 8-07 tablets by ity of tablet 00:00: mouth [place] 00 daily. Medical Branch lisinopriL 2020-0 Yes [id number] 1.25mg Take 0.5 [facility] 2.5 mg 8-07 tablets by ity of tablet 00:00: mouth [place] 00 daily. Medical Branch lisinopriL 2020-0 Yes [id number] 1.25mg Take 0.5 [facility] 2.5 mg 8-07 tablets by ity of tablet 00:00: mouth [place] 00 daily. Medical Branch lisinopriL 0 Yes [id number] 1.25mg Take 0.5 [facility] 2.5 mg 8-07 tablets by ity of tablet 00:00: mouth [place] 00 daily. [facility] lisinopriL 0 Yes [id number] 1.25mg Take 0.5 [facility] 2.5 mg 8-07 tablets by ity of tablet 00:00: mouth [place] 00 daily. [facility] lisinopriL 0 Yes [id number] 1.25mg Take 0.5 [facility] 2.5 mg 8-07 tablets by ity of tablet 00:00: mouth [place] 00 daily. [facility] lisinopriL 0 Yes [id number] 1.25mg Take 0.5 [facility] 2.5 mg 8-07 tablets by ity of tablet 00:00: mouth [place] 00 daily. [facility] lisinopriL 0 Yes [id number] 1.25mg Take 0.5 [facility] 2.5 mg 8-07 tablets by ity of tablet 00:00: mouth [place] 00 daily. [facility] lisinopriL 0 Yes [id number] 1.25mg Take 0.5 [facility] 2.5 mg 8-07 tablets by ity of tablet 00:00: mouth [place] 00 daily. [facility] lisinopriL 2020-0 Yes [id number] 1.25mg Take 0.5 [facility] 2.5 mg 8-07 tablets by ity of tablet 00:00: mouth [place] 00 daily. [facility] lisinopriL 2020-0 Yes [id number] 1.25mg Take 0.5 [facility] 2.5 mg 8-07 tablets by ity of tablet 00:00: mouth [place] 00 daily. [facility] lisinopriL 2020-0 Yes [id number] 1.25mg Take 0.5 [facility] 2.5 mg 8-07 tablets by ity of tablet 00:00: mouth [place] 00 daily. Medical Branch lisinopriL 2020-0 Yes [id number] 1.25mg Take 0.5 [facility] 2.5 mg 8-07 tablets by ity of tablet 00:00: mouth [place] 00 daily. Medical Branch lisinopriL 2020-0 Yes [id number] 1.25mg Take 0.5 [facility] 2.5 mg 8-07 tablets by ity of tablet 00:00: mouth [place] 00 daily. [facility] lisinopriL 2020-0 Yes [id number] 1.25mg Take 0.5 [facility] 2.5 mg 8-07 tablets by ity of tablet 00:00: mouth [place] 00 daily. Medical Branch lisinopriL 2020-0 Yes [id number] 1.25mg Take 0.5 [facility] 2.5 mg 8-07 tablets by ity of tablet 00:00: mouth [place] 00 daily. [facility] Branch lisinopriL 2020-0 Yes [id number] 1.25mg Take 0.5 [facility] 2.5 mg 8-07 tablets by ity of tablet 00:00: mouth [place] 00 daily. [facility] Branch lisinopriL 0 Yes [id number] 1.25mg Take 0.5 [facility] 2.5 mg 8-07 tablets by ity of tablet 00:00: mouth [place] 00 daily. [facility] Branch lisinopriL 0 Yes [id number] 1.25mg Take 0.5 [facility] 2.5 mg 8-07 tablets by ity of tablet 00:00: mouth [place] 00 daily. Medical Branch topiramate 2020-0 Yes [id number] 25mg Take 1 [facility] 25 mg 8-06 tablet by ity of tablet 00:00: mouth 2 (two) Medical times Branch daily. After one week may take 2 PO BID. topiramate 2020-0 Yes [id number] 25mg Take 1 [facility] 25 mg 8-06 tablet by ity of tablet 00:00: mouth 2 (two) Medical times Branch daily. After one week may take 2 PO BID. topiramate 2020-0 Yes [id number] 25mg Take 1 [facility] 25 mg 8-06 tablet by ity of tablet 00:00: mouth 2 (two) Medical times Branch daily. After one week may take 2 PO BID. topiramate 2021-0 Yes [id number] 25mg Take 1 [facility] 25 mg 8-06 tablet by ity of tablet 00:00: mouth (two) Medical times Branch daily. After one week may take 2 PO BID. topiramate 2021-0 Yes [id number] 25mg Take 1 [facility] 25 mg 8-06 tablet by ity of tablet 00:00: mouth (two) Medical times Branch daily. After one week may take 2 PO BID. topiramate 2021-0 Yes [id number] 25mg Take 1 [facility] 25 mg 8-06 tablet by ity of tablet 00:00: mouth (two) Medical times Branch daily. After one week may take 2 PO BID. topiramate 2021-0 Yes [id number] 25mg Take 1 [facility] 25 mg 8-06 tablet by ity of tablet 00:00: mouth (two) Medical times Branch daily. After one week may take 2 PO BID. topiramate 1-0 Yes [id number] 25mg Take 1 [facility] 25 mg 8-06 tablet by ity of tablet 00:00: mouth [place] (two) Medical times Branch daily. After one week may take 2 PO BID. topiramate 1-0 Yes [id number] 25mg Take 1 [facility] 25 mg 8-06 tablet by ity of tablet 00:00: mouth (two) Medical times Branch daily. After one week may take 2 PO BID. topiramate 2021-0 Yes [id number] 25mg Take 1 [facility] 25 mg 8-06 tablet by ity of tablet 00:00: mouth (two) Medical times Branch daily. After one week may take 2 PO BID. topiramate 2021-0 Yes [id number] 25mg Take 1 [facility] 25 mg 8-06 tablet by ity of tablet 00:00: mouth (two) Medical times Branch daily. After one week may take 2 PO BID. topiramate 2021-0 Yes [id number] 25mg Take 1 [facility] 25 mg 8-06 tablet by ity of tablet 00:00: mouth (two) Medical times Branch daily. After one week may take 2 PO BID. topiramate 2021-0 Yes [id number] 25mg Take 1 [facility] 25 mg 8-06 tablet by ity of tablet 00:00: mouth [place] (two) Medical times Branch daily. After one week may take 2 PO BID. topiramate 2021-0 Yes [id number] 25mg Take 1 [facility] 25 mg 8-06 tablet by ity of tablet 00:00: mouth [place] (two) Medical times Branch daily. After one week may take 2 PO BID. topiramate 2021-0 Yes [id number] 25mg Take 1 [facility] 25 mg 8-06 tablet by ity of tablet 00:00: mouth [place] (two) Medical times Branch daily. After one week may take 2 PO BID. topiramate 2021-0 Yes [id number] 25mg Take 1 [facility] 25 mg 8-06 tablet by ity of tablet 00:00: mouth [place] (two) Medical times Branch daily. After one week may take 2 PO BID. topiramate 2021-0 Yes [id number] 25mg Take 1 [facility] 25 mg 8-06 tablet by ity of tablet 00:00: mouth [place] (two) Medical times Branch daily. After one week may take 2 PO BID. topiramate 2021-0 Yes [id number] 25mg Take 1 [facility] 25 mg 8-06 tablet by ity of tablet 00:00: mouth [place] (two) Medical times Branch daily. After one week may take 2 PO BID. topiramate 1-0 Yes [id number] 25mg Take 1 [facility] 25 mg 8-06 tablet by ity of tablet 00:00: mouth [place] (two) Medical times Branch daily. After one week may take 2 PO BID. topiramate 2021-0 Yes [id number] 25mg Take 1 [facility] 25 mg 8-06 tablet by ity of tablet 00:00: mouth [place] (two) Medical times Branch daily. After one week may take 2 PO BID. topiramate 2021-0 Yes [id number] 25mg Take 1 [facility] 25 mg 8-06 tablet by ity of tablet 00:00: mouth [place] (two) Medical times Branch daily. After one week may take 2 PO BID. topiramate 2021-0 Yes [id number] 25mg Take 1 [facility] 25 mg 8-06 tablet by ity of tablet 00:00: mouth [place] (two) Medical times Branch daily. After one week may take 2 PO BID. topiramate 2020-0 Yes [id number] 25mg Take 1 [facility] 25 mg 8-06 tablet by ity of tablet 00:00: mouth 2 [place] 00 (two) Medical times Branch daily. After one week may take 2 PO BID. topiramate 2020-0 Yes [id number] 25mg Take 1 [facility] 25 mg 8-06 tablet by ity of tablet 00:00: mouth 2 [place] 00 (two) Medical times Branch daily. After one week may take 2 PO BID. topiramate 2020-0 Yes [id number] 25mg Take 1 [facility] 25 mg 8-06 tablet by ity of tablet 00:00: mouth 2 [place] 00 (two) Medical times Branch daily. After one week may take 2 PO BID. topiramate 2020-0 Yes [id number] 25mg Take 1 [facility] 25 mg 8-06 tablet by ity of tablet 00:00: mouth 2 [place] 00 (two) Medical times Branch daily. After one week may take 2 PO BID. topiramate 2022- No [id number] 25mg Take 1 [facility] 25 mg 8-06 01-10 tablet by ity of tablet 00:00: 00:00 mouth 2 [place] 00 :00 (two) Medical times Branch daily. After one week may take 2 PO BID. topiramate 2020-2022- No [id number] 25mg Take 1 [facility] 25 mg 8-06 01-10 tablet by ity of tablet 00:00: 00:00 mouth 2 [place] 00 :00 (two) Medical times Branch daily. After one week may take 2 PO BID. topiramate 2020-2022- No [id number] 25mg Take 1 [facility] 25 mg 8-06 01-10 tablet by ity of tablet 00:00: 00:00 mouth 2 [place] 00 :00 (two) Medical times Branch daily. After one week may take 2 PO BID. Insulin 2021- No [id number] Use as Uni vers [place], 05-18 directed ity of Disposable, 00:00: 00:00 [place] (PEN 00 :00 Medical NEEDLE) 31 Branch gauge x 5/16" Ndle Insulin 2021- No [id number] Use as Uni vers [place], 05-18 directed ity of Disposable, 00:00: 00:00 [place] (PEN 00 :00 Medical NEEDLE) 31 Branch gauge x 5/16" Ndle Insulin Insulin 2020-0 No Insulin Syringe-Nee Syringe-Nee 3-03 Syringe-Ne dle U-100 dle U-100 00:00: edle U-100 30G X 5/16" 30G X /16" 00 30G X 1 ML 1 ML /16" 1 ML Lantus 100 Lantus 100 2020-0 No Lantus 100 UNIT/ML UNIT/ML 3-03 UNIT/ML 00:00: 00 Insulin Insulin 2020-0 No Insulin Syringe-Nee Syringe-Nee 3-03 Syringe-Ne dle U-100 dle U-100 00:00: edle U-100 30G X 5/16" 30G X 16" 00 30G X 1 ML 1 ML /16" 1 ML Lantus 100 Lantus 100 2020-0 No Lantus 100 UNIT/ML UNIT/ML 3-03 UNIT/ML 00:00: 00 Insulin Insulin 2020-0 No Insulin Syringe-Nee Syringe-Nee 3-03 Syringe-Ne dle U-100 dle U-100 00:00: edle U-100 30G X 5/16" 30G X /16" 00 30G X 1 ML 1 ML 16" 1 ML Lantus 100 Lantus 100 2020-0 No Lantus 100 UNIT/ML UNIT/ML 3-03 UNIT/ML 00:00: 00 Pen [place] Pen [place] 2020-0 No Pen 32G X 5 MM 32G X 5 MM 2-24 [place] 00:00: 32G X 5 MM 00 Pen [place] Pen [place] 2020-0 No Pen 32G X 5 MM 32G X 5 MM 2-24 [place] 00:00: 32G X 5 MM 00 Pen [place] Pen [place] 2020-0 No Pen 32G X 5 MM 32G X 5 MM 2-24 [place] 00:00: 32G X 5 MM 00 Pen [place] Pen [place] 2020-0 No Pen 32G X 5 MM 32G X 5 MM 2-24 [place] 00:00: 32G X 5 MM 00 Mupirocin 2 Mupirocin 2 2020-0 202- No 1{appli BID Mupirocin % % 2-24 03-10 cation_ 2 % 00:00: 00:00 to_affe 00 :00 cted_ar ea} Mupirocin 2 Mupirocin 2 2020- No 1{appli BID Mupirocin % % 04-04 cation_ 2 % 00:00: 00:00 to_affe 00 :00 cted_ar ea} Bactrim DS Bactrim DS 2020- No 1{table BID Bactrim DS 800-160 MG 800-160 MG 04-04- t} 800-160 MG 00:00: 00:00 00 :00 Benzonatate Benzonatate 2020- No 1{capsu Benzonatat 100 MG 100 MG 03-19 le_as_n e 100 MG 00:00: 00:00 eeded} 00 :00 Benzonatate Benzonatate 2020- No 1{capsu Benzonatat Common 100 MG 100 MG 03-19 le_as_n e 100 MG Spi rit 00:00: 00:00 eeded} - [facility] 00 :00 [facility] Benzonatate Benzonatate 2020- No 1{capsu Benzonatat 100 MG 100 MG 03-19 le_as_n e 100 MG 00:00: 00:00 eeded} 00 :00 Benzonatate Benzonatate 2020- No 1{capsu Benzonatat 100 MG 100 MG 03-19 le_as_n e 100 MG 00:00: 00:00 eeded} 00 :00 Lantus Lantus No QD Lantus SoloStar SoloStar 02-14 SoloStar 100 UNIT/ML 100 UNIT/ML 00:00: 100 [...] 10 MG 10 MG 00:00: 10 MG Atorvastati Atorvastati 2019-02 No 1{table QD Atorvastat Common n Calcium n Calcium 0-13 t} in Calcium [facility] 10 MG 10 MG 00:00: 10 MG - [facility] 00 [facility] Atorvastati Atorvastati 2019-02 No 1{table QD Atorvastat n Calcium n Calcium 0-13 t} in Calcium 10 MG 10 MG 00:00: 10 MG 00 Atorvastati Atorvastati 2019-02 No 1{table QD Atorvastat n Calcium n Calcium 0-13 t} in Calcium 10 MG 10 MG 00:00: 10 MG Atorvastati Atorvastati 2019-02 No 1{table QD Atorvastat n Calcium n Calcium 0-13 t} in Calcium 10 MG 10 MG 00:00: 10 MG Atorvastati Atorvastati 2019-02 No 1{table QD Atorvastat [...] MG 00:00: 00 Bactrim DS Bactrim DS No 1{table BID Bactrim DS Common 800-160 MG 800-160 MG 0-05 t} 800-160 MG [facility] 00:00: - [facility] 00 [facility] Bactrim DS Bactrim DS 2019- No 1{table [...] t} 800-160 MG 00:00: 00 Gabapentin Gabapentin 2019- No 1{capsu TID Gabapentin 300 MG 300 MG 0-05 le} 300 MG 00:00: 00 Keflex 500 Keflex 500 2019- 2020- No 1{capsu BID Keflex 500 MG MG 0-05 10-15 le} MG 00:00: 00:00 00 :00 Bactrim DS Bactrim DS 2019- 2020- No 1{table BID Bactrim DS 800-160 MG 800-160 MG 0-05 10-15 t} 800-160 MG 00:00: 00:00 00 :00 Norethin Norethin 2019-0 Yes Na Roche 1 tablet Common [place]-Eth Eulalia-Eth 3-13 Spirit Estrad-FE Estrad-FE 00:00: - C [place] 00 [facility] Norethin Norethin 2019-0 No 1{table QD Norethin Eulalia-Eth Eulalia-Eth 3-13 t} [place]-Eth Estrad-FE Estrad-FE 00:00: Estrad-FE 1-20 1-20 00 1-20 MG-MCG(24) MG-MCG(24) MG-MCG(24) Norethin Norethin 2019-0 No 1{table QD Norethin Eulalia-Eth Eulalia-Eth 3-13 t} [place]alia-Eth Estrad-FE Estrad-FE 00:00: Estrad-FE 1-20 1-20 00 1-20 MG-MCG(24) MG-MCG(24) MG-MCG(24) Norethin Norethin 2018-0 No 1{table QD Norethin Eulalia-Eth Eulalia-Eth 3-13 t} [place]alia-Eth Estrad-FE Estrad-FE 00:00: Estrad-FE 1-20 1-20 00 1-20 MG-MCG(24) MG-MCG(24) MG-MCG(24) Norethin Norethin 0 No 1{table QD Norethin Eulalia-Eth Eulalia-Eth 3-13 t} [place]alia-Eth Estrad-FE Estrad-FE 00:00: Estrad-FE 1-20 1-20 00 1-20 MG-MCG(24) MG-MCG(24) MG-MCG(24) Norethin Norethin 0 No 1{table QD Norethin Eulalia-Eth Eulalia-Eth 3-13 t} [place]alia-Eth Estrad-FE Estrad-FE 00:00: Estrad-FE 1-20 1-20 00 1-20 MG-MCG(24) MG-MCG(24) MG-MCG(24) Norethin Norethin 2018-0 No 1{table QD Norethin Common [place]-Eth Eulalia-Eth 3-13 t} [place]-Eth Spirit Estrad-FE Estrad-FE 00:00: Estrad-FE - [facility] 1-20 1-20 00 1-20 St MG-MCG(24) MG-MCG(24) MG-MCG(24) [facility] Norethin Norethin 2018-0 No 1{table QD Norethin Eulalia-Eth Eulalia-Eth 3-13 t} Eulalia-Eth Estrad-FE Estrad-FE 00:00: Estrad-FE 1-20 1-20 00 1-20 MG-MCG(24) MG-MCG(24) MG-MCG(24) Norethin Norethin 2018-0 No 1{table QD Norethin Eulalia-Eth Eulalia-Eth 3-13 t} Eulalia-Eth Estrad-FE Estrad-FE 00:00: Estrad-FE 1-20 1-20 00 1-20 MG-MCG(24) MG-MCG(24) MG-MCG(24) Norethin Norethin 2019-0 No 1{table QD Norethin Eulalia-Eth Eulalia-Eth 3-13 t} Eulalia-Eth Estrad-FE Estrad-FE 00:00: Estrad-FE 1-20 1-20 00 1-20 MG-MCG(24) MG-MCG(24) MG-MCG(24) Norethin Norethin 2018-0 No 1{table QD Norethin Eulalia-Eth Eulalia-Eth 3-13 t} Eulalia-Eth Estrad-FE Estrad-FE 00:00: Estrad-FE 1-20 1-20 00 1-20 MG-MCG(24) MG-MCG(24) MG-MCG(24) Norethin Norethin 0 No 1{table QD Norethin Eulalia-Eth Eulalia-Eth 3-13 t} Eulalia-Eth Estrad-FE Estrad-FE 00:00: Estrad-FE 1-20 1-20 00 1-20 MG-MCG(24) MG-MCG(24) MG-MCG(24) Norethin Norethin 0 No 1{table QD Norethin Eulalia-Eth Eulalia-Eth 3-13 t} Eulalia-Eth Estrad-FE Estrad-FE 00:00: Estrad-FE 1-20 1-20 00 1-20 MG-MCG(24) MG-MCG(24) MG-MCG(24) Lancets Lancets 2018-0 Yes Na Roche one Comm on Super Thin Super Thin 4-17 Spi rit 00:00: - [facility] 00 [facility] Lancets Lancets 2018-0 No Lancets Super [...] n/s n/s 00:00: n/s - [facility] 00 [facility] Lancets Lancets 2018-0 No Lancets Super [...] Lisinopril Yes Na Roche 1 tablet Common [facility] Loryna Loryna Yes Na Roche 1 tablet Comm on [facility] Metformin Metformin Yes Na Roche 1 tablet Common HCl HCl with meals [facility] Lisinopril Lisinopril No 1{table QD Lisinopril 20 [...] UNIT/ML 100 UNIT/ML 100 - [facility] UNIT/ML [facility] Metformin Metformin No 1{table BID Metformin Common HCl 500 MG HCl 500 MG t_with_ HCl 500 MG Spirit meals} - [facility] Loryna Loryna No 1{table QD Loryna Common 3-0.02 MG 3-0.02 MG t} 3-0.02 MG [facility] - [facility] Lisinopril Lisinopril No 1{table QD Lisinopril Common 20 MG 20 MG t} 20 MG [facility] Azithromyci Azithromyci No QD Azithromyc Common n 250 MG n 250 MG [facility] Gab[facility] Gabapentin No 1{capsu TID Gabapentin Common 300 MG 300 MG le} 300 MG [facility] Metformin Metformin No 1{table BID Metformin HCl [...] Immunizations Ordered Filled Immunization Date Status Comments [facility] Immunization Name Name TDAP 2013-02-09 Completed [facility] 00:00:00 [facility] TDAP 2013-02-09 Completed [facility] 00:00:00 [facility] TDAP 2013-02-09 Completed [facility] 00:00:00 [facility] TDAP 2013-02-09 Completed [facility] 00:00:00 [facility] TDAP 2013-02-09 Completed [facility] of 00:00:00 [facility] TDAP 2013-02-09 Completed [facility] of 00:00:00 [facility] TDAP 2013-02-09 Completed [facility] 00:00:00 [facility] TDAP 2013-02-09 Completed [facility] 00:00:00 [facility] [place] [facility] TDAP 2013-02-09 Completed [facility] 00:00:00 [facility] [place] [facility] TDAP 2013-02-09 Completed [facility] of 00:00:00 [facility] [place] [facility] TDAP 2013-02-09 Completed [facility] of 00:00:00 [facility] [place] [facility] TDAP 2013-02-09 Completed [facility] 00:00:00 [facility] [place] [facility] TDAP 2013-02-09 Completed [facility] 00:00:00 [facility] [place] [facility] TDAP 2013-02-09 Completed [facility] 00:00:00 [facility] [place] [facility] TDAP 2013-02-09 Completed [facility] of 00:00:00 [facility] [place] [facility] TDAP 2013-02-09 Completed [facility] of 00:00:00 [facility] [place] [facility] TDAP 2013-02-09 Completed [facility] 00:00:00 [facility] TDAP 2013-02-09 Completed [facility] 00:00:00 [facility] [place] [facility] TDAP 2013-02-09 Completed University of 00:00:00 [facility] TDAP 2013-02-09 Completed University of 00:00:00 [facility] TDAP 2013-02-09 Completed University of 00:00:00 [facility] TDAP 2013-02-09 Completed University of 00:00:00 [facility] TDAP 2013-02-09 Completed University of 00:00:00 [facility] TDAP 2013-02-09 Completed University of 00:00:00 [facility] TDAP 2013-02-09 Completed University of 00:00:00 [facility] TDAP 2013-02-09 Completed University of 00:00:00 [facility] TDAP 2013-02-09 Completed University of 00:00:00 [facility] TDAP 2013-02-09 Completed University of 00:00:00 [facility] TDAP 2013-02-09 Completed University of 00:00:00 [facility] TDAP 2013-02-09 Completed University of 00:00:00 [facility] TDAP 2013-02-09 Completed University of 00:00:00 [facility] TDAP 2013-02-09 Completed University of 00:00:00 [facility] TDAP 2013-02-09 Completed University of 00:00:00 [facility] TDAP 2013-02-09 Completed University of 00:00:00 [facility] TDAP 2013-02-09 Completed University of 00:00:00 [facility] TDAP 2013-02-09 Completed University of 00:00:00 [facility] TDAP 2013-02-09 Completed University of 00:00:00 [facility] TDAP 2013-02-09 Completed University of 00:00:00 [facility] TDAP 2013-02-09 Completed University of 00:00:00 [facility] TDAP 2013-02-09 Completed University of 00:00:00 [facility] TDAP 2013-02-09 Completed University of 00:00:00 [facility] TDAP 2013-02-09 Completed University of 00:00:00 [facility] TDAP 2013-02-09 Completed University of 00:00:00 [facility] TDAP 2013-02-09 Completed University of 00:00:00 [facility] TDAP 2013-02-09 Completed University of 00:00:00 [facility] TDAP 2013-02-09 Completed University of 00:00:00 [facility] TDAP 2013-02-09 Completed University of 00:00:00 [facility] TDAP 2013-02-09 Completed University of 00:00:00 [facility] TDAP 2013-02-09 Completed University of 00:00:00 [facility] TDAP 2013-02-09 Completed University of 00:00:00 [facility] TDAP 2013-02-09 Completed University of 00:00:00 [facility] TDAP 2013-02-09 Completed University of 00:00:00 [facility] TDAP 2013-02-09 Completed University of 00:00:00 [facility] TDAP 2013-02-09 Completed University of 00:00:00 [facility] TDAP 2013-02-09 Completed University of 00:00:00 [facility] TDAP 2013-02-09 Completed University of 00:00:00 [facility] TDAP 2013-02-09 Completed [facility] of 00:00:00 [facility] TDAP 2013-02-09 Completed University of 00:00:00 [facility] TDAP 2013-02-09 Completed University of 00:00:00 [facility] TDAP 2013-02-09 Completed University of 00:00:00 [facility] TDAP 2013-02-09 Completed University of 00:00:00 [facility] TDAP 2013-02-09 Completed University of 00:00:00 [facility] TDAP 2013-02-09 Completed University of 00:00:00 [facility] TDAP 2013-02-09 Completed [facility] of 00:00:00 [facility] TDAP 2013-02-09 Completed University of 00:00:00 [facility] Vital Signs Vital Name Observation Time Observation Value Comments Source Systolic blood 2022-06-10 16:36:00 106 mm[Hg] Univer sity of pressure [facility] Diastolic blood 2022-06-10 16:36:00 74 mm[Hg] Unive rsity of pressure [facility] Heart rate 2022-06-10 15:28:00 88 /min Universi ty of [facility] Body height 2022-06-10 15:28:00 160 cm Universi ty of [facility] Body weight 2022-06-10 15:28:00 108.41 kg [facility] [place] BMI 2022-06-10 15:28:00 42.34 kg/m2 Universi ty [facility] Oxygen saturation in 2022-06-10 15:28:00 97 /min University of Arterial blood by [place] [employer] jorge a Pulse oximetry Branch Systolic blood 2022-05-23 20:11:00 119 mm[Hg] Univer sity of pressure [facility] Diastolic blood 2022-05-23 20:11:00 72 mm[Hg] Unive rsity of pressure [facility] [place] Heart rate 2022-05-23 20:11:00 73 /min Universi ty [facility] [place] Body temperature 2022-05-23 20:11:00 36.5 Nita Univ ersity of [facility] Respiratory rate 2022-05-23 20:11:00 20 /min Univ ersity of [facility] Body height 2022-05-23 20:11:00 160 cm Universi ty [facility] Body weight 2022-05-23 20:11:00 108.138 kg [facility] BMI 2022-05-23 20:11:00 42.23 kg/m2 [facility] ty [facility] Oxygen saturation in 2022-05-23 20:11:00 97 /min University of Arterial blood by [employer] jorge a Pulse oximetry Branch Systolic blood 2022-03-31 15:24:00 117 mm[Hg] Univer sity of pressure [facility] Diastolic blood 2022-03-31 15:24:00 76 mm[Hg] Unive rsity of pressure [facility] Body weight 2022-03-31 15:24:00 105.96 kg Universi ty of [facility] BMI 2022-03-31 15:24:00 41.38 kg/m2 [facility] Systolic blood 2022-03-18 19:52:00 117 mm[Hg] Univer sity of pressure [facility] Diastolic blood 2022-03-18 19:52:00 80 mm[Hg] Unive rsity of pressure [facility] Heart rate 2022-03-18 19:52:00 72 /min Universi ty of [facility] Body temperature 2022-03-18 19:52:00 36.67 Nita Univ ersity of [facility] Respiratory rate 2022-03-18 19:52:00 16 /min Univ ersity of [facility] Body height 2022-03-18 19:52:00 160 cm Universi ty of [facility] Body weight 2022-03-18 19:52:00 103.874 kg [facility]i ty of [facility] BMI 2022-03-18 19:52:00 40.57 kg/m2 [facility] Oxygen saturation in 2022-03-18 19:52:00 97 /min University Arterial blood by [facility] Pulse oximetry Branch Systolic blood 2022-03-02 19:39:00 105 mm[Hg] Univer sity of pressure [facility] [place] Diastolic blood 2022-03-02 19:39:00 72 mm[Hg] Unive rsity of pressure [facility] Heart rate 2022-03-02 19:39:00 83 /min Universi ty of [facility] Body temperature 2022-03-02 19:39:00 37.17 Nita Univ ersity of [facility] Respiratory rate 2022-03-02 19:39:00 16 /min Univ ersity of [facility] Body height 2022-03-02 19:39:00 160 cm Universi ty of [facility] Body weight 2022-03-02 19:39:00 102.921 kg Universi ty of [facility] BMI 2022-03-02 19:39:00 40.19 kg/m2 [facility] ty [facility] Oxygen saturation in 2022-03-02 19:39:00 98 /min University of Arterial blood by [facility] jorge a Pulse oximetry Branch Systolic blood 2022-02-25 20:52:00 122 mm[Hg] Univer sity of pressure [facility] Diastolic blood 2022-02-25 20:52:00 77 mm[Hg] Unive rsity of pressure [facility] Heart rate 2022-02-25 20:52:00 90 /min Universi ty of [facility] Body temperature 2022-02-25 20:52:00 36.44 Nita Univ ersity of [facility] Respiratory rate 2022-02-25 20:52:00 18 /min Univ ersity of [facility] Body height 2022-02-25 20:52:00 160 cm Universi ty of [facility] Body weight 2022-02-25 20:52:00 105.416 kg Universi ty of [facility] BMI 2022-02-25 20:52:00 41.17 kg/m2 Universi ty of [facility] Oxygen saturation in 2022-02-25 20:52:00 98 /min University of Arterial blood by [facility] Pulse oximetry Branch Systolic blood 2022-02-25 15:38:00 102 mm[Hg] Univer sity of pressure [facility] Diastolic blood 2022-02-25 15:38:00 70 mm[Hg] Unive rsity of pressure [facility] Heart rate 2022-02-25 15:38:00 82 /min Universi ty of [facility] Body height 2022-02-25 15:38:00 160 cm [facility] Body weight 2022-02-25 15:38:00 103.874 kg [facility] BMI 2022-02-25 15:38:00 40.57 kg/m2 [facility] Oxygen saturation in 2022-02-25 15:38:00 98 /min University of Arterial blood by [facility] Pulse oximetry Branch Systolic blood 2022-02-20 01:34:22 107 mm[Hg] Univer sity of pressure [facility] Diastolic blood 2022-02-20 01:34:22 77 mm[Hg] Unive rsity of pressure [facility] Heart rate 2022-02-20 01:34:22 82 /min [facility] Body temperature 2022-02-20 01:34:22 37 Nita Univ ersity of [facility] Respiratory rate 2022-02-20 01:34:22 18 /min Univ ersity of [facility] Oxygen saturation in 2022-02-20 01:34:22 100 /min University of Arterial blood by [place] [employer] jorge a Pulse oximetry Branch Body height 2022-02-20 00:06:00 160 cm [facility] Body weight 2022-02-20 00:06:00 102.059 kg [facility] BMI 2022-02-20 00:06:00 39.86 kg/m2 Universi ty of [facility] Systolic blood 2022-02-12 15:11:00 112 mm[Hg] Univer sity of pressure [facility] Diastolic blood 2022-02-12 15:11:00 73 mm[Hg] Unive rsity of pressure [facility] Heart rate 2022-02-12 15:11:00 75 /min Universi ty of [facility] Respiratory rate 2022-02-12 15:11:00 18 /min Univ ersity of [facility] Body height 2022-02-12 15:11:00 160 cm [facility] Body weight 2022-02-12 15:11:00 102.059 kg [facility] BMI 2022-02-12 15:11:00 39.86 kg/m2 [facility] Oxygen saturation in 2022-02-12 15:11:00 98 /min University of Arterial blood by [facility] Pulse oximetry Branch Systolic blood 2022-01-28 17:18:00 100 mm[Hg] Univer sity of pressure [facility] Diastolic blood 2022-01-28 17:18:00 70 mm[Hg] Unive rsity of pressure [facility] Heart rate 2022-01-28 17:18:00 107 /min [facility] Body height 2022-01-28 17:18:00 160 cm [facility] Body weight 2022-01-28 17:18:00 102.059 kg [facility]i ty [facility] BMI 2022-01-28 17:18:00 39.86 kg/m2 [facility] Oxygen saturation in 2022-01-28 17:18:00 99 /min University of Arterial blood by [facility] jorge a Pulse oximetry Branch Systolic blood 2021-10-10 16:15:00 109 mm[Hg] Univer sity of pressure [facility] Diastolic blood 2021-10-10 16:15:00 74 mm[Hg] Unive rsity of pressure [facility] Heart rate 2021-10-10 16:15:00 90 /min Universi ty of [facility] Body temperature 2021-10-10 16:15:00 37.22 Nita Univ ersity of [facility] Respiratory rate 2021-10-10 16:15:00 18 /min Univ ersity of [facility] Body height 2021-10-10 16:15:00 160 cm Universi ty of [facility] Body weight 2021-10-10 16:15:00 102.967 kg Universi ty of [facility] BMI 2021-10-10 16:15:00 40.21 kg/m2 [facility]i ty of [facility] [place] Oxygen saturation in 2021-10-10 16:15:00 98 /min University of Arterial blood by [facility] Pulse oximetry Branch Systolic blood 2021-07-01 21:03:00 115 mm[Hg] Univer sity of pressure [facility] Diastolic blood 2021-07-01 21:03:00 75 mm[Hg] Unive rsity of pressure [facility] Heart rate 2021-07-01 21:03:00 81 /min Universi ty of [facility] Body weight 2021-07-01 21:03:00 103.874 kg [facility]i ty [facility] [place] BMI 2021-07-01 21:03:00 40.57 kg/m2 [facility] ty [facility] Oxygen saturation in 2021-07-01 21:03:00 97 /min University of Arterial blood by [facility] Pulse oximetry Branch height 2019-11-22 10:00:00 63 [in_i] [facility] weight 2019-11-22 10:00:00 223.8 [lb_av] [facility] temperature 2019-11-22 10:00:00 97.8 [degF] [facility] bmi 2019-11-22 10:00:00 39.64 kg/m2 Common [facility] oximetry 2019-11-22 10:00:00 97 % Common [facility] respiratory rate 2019-11-22 10:00:00 15 /min Comm on [facility] blood pressure 2019-11-22 10:00:00 118 mm[Hg] [facility] systolic [facility] blood pressure 2019-11-22 10:00:00 68 mm[Hg] [facility] - diastolic [facility] height 2019-11-14 13:00:00 63 [in_i] [facility] weight 2019-11-14 13:00:00 223.8 [lb_av] [facility] temperature 2019-11-14 13:00:00 97.7 [degF] [facility] bmi 2019-11-14 13:00:00 39.64 kg/m2 [facility] oximetry 2019-11-14 13:00:00 97 % [facility] respiratory rate 2019-11-14 13:00:00 15 /min Comm on [facility] blood pressure 2019-11-14 13:00:00 110 mm[Hg] [facility] systolic [facility] blood pressure 2019-11-14 13:00:00 68 mm[Hg] [facility] diastolic [facility] Procedures Procedure Date / Time Performing Clinician Source Performed INSURANCE CORRESPONDENCE 2022-07-02 05:01:00 Doctor Unassigned, [facility] [place] [facility] PATIENT FINANCIAL 2022-06-10 15:26:49 Doctor Unassigned, Un [facility] POLICY [facility] XR FOOT 3+ VW LEFT 2022-05-23 21:33:38 Radha Drummond [facility] ASSIGNMENT OF BENEFITS 2022-05-23 21:18:45 [facility] MR BRAIN WO CONTRAST 2022-03-18 16:31:00 Nuzhat Brown [facility] POCT SARS-COV-2 ANTIGEN 2022-03-02 19:45:00 Gladys Ramos [facility] ([facility]) [facility] CONSENT/REFUSAL FOR 2022-02-20 00:01:44 Doctor Rhona [facility] DIAGNOSIS AND TREATMENT [place] [facility] NOTICE OF PRIVACY 2022-02-20 00:01:09 Doctor Unaalejandra, [facility] PRACTICES [place] [facility] CT HEAD WO CONTRAST 2022-02-17 20:30:00 Radha Drummond [facility] LIPID PANEL ([id number])(TOTAL 2022-01-28 18:11:00 Rita Baron [facility] CHOLESTEROLE[facility] TRIGLYCERIDES, HDL) CBC WITH DIFF 2022-01-28 18:11:00 Rita Baron [facility] FREE T4 2022-01-28 18:11:00 Rita Baron [facility] POCT HEMOGLOBIN A1C TEST 2022-01-28 17:28:00 Elzbieta Gomez [facility] ASSIGNMENT OF BENEFITS 2022-01-28 17:05:10 Doctor Unassdc, [facility] Name [facility] POCT SARS-COV-2 ANTIGEN 2021-10-10 16:22:00 Micheal Calles [facility] ([facility]) [facility] POCT HEMOGLOBIN A1C TEST 2021-07-01 21:12:00 Rita Baron [facility] DME/SUPPLY JUSTIFICATION 2021-03-31 06:01:00 Doctor Rhona, [facility] [place] [facility] Encounters Start End Encounter Admission Attending Care Care Encounter Source Date/Time Date/Time Type Type Clinicians Facility Department ID 2021-03-06 Outpatient Roche, Na STLMLC STLC [id number] 2 Common 12:28:47 [id number] [facility] 2021-03-06 Outpatient Roche, Na STLMLC STLC [id number] 2 Common 12:28:12 [id number] [facility] 2021-03-06 Outpatient Roche, Na STLMLC STLC [id number] 2 Common 12:25:04 [id number] [facility] 2021-03-06 Outpatient Roche, Na STLMLC STLMLC [id number] 2 Common 12:17:52 [id number] [facility] 2021-03-06 Outpatient Roche, Na STLMLC STLMLC [id number] 2 Common 12:15:18 [id number] [facility] 2021-03-06 Outpatient Roche, Na STLMLC STLMLC [id number] 2 Common 12:13:42 [id number] [facility] 2021-03-06 Outpatient Roche, Na STLMLC STLMLC [id number] 2 Common 11:59:23 [id number] [facility] 2021-03-06 Outpatient Roche, Na STLMLC STLMLC [id number] 2 Common 11:58:53 [id number] [facility] 2021-03-06 Outpatient Roche, Na STLMLC STLMLC [id number] 2 Common 11:56:53 [id number] [facility] 2021-03-06 Outpatient Roche, Na STLMLC STLMLC [id number] 2 Common 11:54:19 [id number] [facility] 2021-03-06 Outpatient Roche, Na STLMLC STLMLC [id number] 2 Common 11:52:02 [id number] [facility] 2021-03-06 Outpatient Roche, Na STLMLC STLMLC [id number] 2 Common 11:51:35 [id number] [facility] 2021-03-06 Outpatient Roche, Na STLMLC STLMLC [id number] 2 Common 11:51:00 [id number] [facility] 2021-03-06 Outpatient Roche, Na STLMLC STLMLC [id number] 2 Common 11:49:29 [id number] [facility] 2021-03-06 Outpatient Roche, Na STLMLC STLMLC [id number] 2 Common 11:48:31 [id number] [facility] 2021-03-06 Outpatient Roche, Na STLMLC STLMLC [id number] 2 Common 11:46:10 [id number] [facility] 2023-03-31 2023-03-31 Outpatient R STEPHANIE [facility] [id number] Univers 09:30:00 09:30:00 NUZHAT [facility] 2022-10-14 2022-10-14 Outpatient R JASON [facility] [id number] Univers 13:30:00 13:30:00 [facility] 2022-08-13 2022-08-13 Outpatient R RADHA DRUMMOND [facility] [id number] Univers 10:30:00 10:30:00 RADHA DRUMMOND [facility] 2022-07-08 2022-07-08 Outpatient R RADHA DRUMMOND [facility] [id number] Univers 09:30:00 09:30:00 HODA JOSECHRISTIAN [facility] 2022-07-04 2022-07-04 Outpatient R RASHAWN [facility] [id number] Univers 13:00:00 13:00:00 DAWN [facility] 2022-07-02 2022-07-02 Orders Doctor MICHEAL [id number] Univers 00:00:00 00:00:00 Only Unassigned, GENARO [id number] ity of [place] [facility] [id number] Ahmet as [phone] [address] 2022-06-30 2022-06-30 [facility] [id number] Univers 00:00:00 00:00:00 [facility] [id number] it y of [place] [id number] Ahmet as CIPRIANO?BLEA [phone] Mo [address] MEDICAL OFFICE BUILDING 2022-06-27 2022-06-27 Outpatient R RADHA DRUMMOND [facility] [id number] Univers 15:30:00 15:30:00 RADHA DRUMMOND [facility] 2022-06-27 2022-06-27 Outpatient R RADHA DRUMMOND [facility] [id number] Univers 11:30:00 11:30:00 RADHA DRUMMOND ity [facility] 2022-06-24 2022-06-24 Ancillary Linda Barnett Nichole [facility] 1.2.840. [id number] Univers 09:15:00 10:16:05 Visit Radha Drummond [id number] 0 ity of [id number] [phone] Mo dical [facility] [address] BU[address]ING 2022-06-23 2022-06-23 Outpatient R MARTHA [facility] [id number] Univers 16:45:00 16:45:00 [facility]22-[facility]16 2022-06-16 [facility] [id number] Univers 16:15:00 16:15:00 [facility] 2022-06-16 2022-06-16 Outpatient R SIMON [facility] [id number] Univers 16:10:00 16:10:00 RYLAN [facility] 2022-06-10 2022-06-10 Outpatient R JASON [facility] [id number] Univers 10:30:00 11:39:18 [facility] 2022-06-10 2022-06-10 Office [facility] [id number] Univers 10:30:00 11:39:18 Visit [facility] [id number] it y of [place] [id number] Ahmet as CIPRIANO?BLEA [phone] Mo dical KNEY [address] MEDICAL OFFICE BUILDING 2022-06-10 2022-06-10 Orders Doctor MICHEAL [id number] Univers 00:00:00 00:00:00 Only Unassigned, GENARO [id number] [place] [facility] [id number] Ahmet as [phone] [address] 2022-05-27 2022-05-27 Telephone Hoda [facility] [id number] Univers 00:00:00 00:00:00 Radha BEEBE [id number] it[place] of [id number] [phone] Mo dical NAL [address] [facility] 2022-05-26 2022-05-26 Telephone Hoda [facility] 1.2.840.114 [id number] Univers 00:00:00 00:00:00 Radha BEEBE [id number] it[place] of [id number] [phone] Mo dical NAL [address] [facility] 2022-05-24 2022-05-24 Residence Hall Director bAdias, Dilcia Lab Main [facility] 1.2.8 40.114 [id number] [facility] 09:30:00 09:45:00 Visit HodaJosechristian DUNNLILO 350.1.13.1 0 it[place] of [id number] [id number] Mo dical NAL [address] [facility] 2022-05-24 2022-05-24 Outpatient R RADHA DRUMMOND [facility] [id number] Univers 09:30:00 09:30:00 [facility]22-[facility]-23 2022-05-23 Outpatient R RADHA DRUMMOND [facility] [id number] Univers 16:19:08 23:59:00 HODA [facility] 2022-05-23 2022-05-23 [facility] [id number] [facility] 16:19:08 23:59:00 Encounter Russelljackelinsteven BEEBE [id number] it[place] [facility] [id number] [facility] [address] [place] 2022-05-23 2022-05-23 Office Hoda [facility] [id number] Univers 15:30:00 16:01:41 Visit Radha [place] [id number] [id number] [id number] Mo vannesa COW[place] [address] [facility] 2022-05-23 2022-05-23 Orders Doctor MICHEAL 1.2.840.114 [id number] Univers 00:00:00 00:00:00 Only Unassigned, GENARO [id number] [place] [facility] [id number] Ahmet as [id number] [address] 2022-05-17 2022-05-17 Refill Rita Baron [facility] 1.2.840.114 [id number] Univers 00:00:00 00:00:00 HEALTH [id number] [facility] [id number] Ahmet as CIPRIANO?BLEA [phone] [facility] [address] [facility] OFFICE [facility] 2022-05-17 2022-05-17 Telephone Jason [facility] [id number] Univers 00:00:00 00:00:00 [facility] [id number] [facility] [id number] Ahmet as CIPRIANO?BLEA [id number] [facility] [address] [facility] OFFICE [facility] 2022-05-17 2022-05-17 Refill Jason [facility] [facility] 1.2.840.114 [id number] Univers 00:00:00 00:00:00 [facility] HEALTH 350.1.13.10 it y of [facility] 4.2.7.2.686 Ahmet as CIPRIANO?BLEA [phone] Mo dicjack KING 220 [facility] OFFICE [facility] 2022-05-12 2022-05-12 Telephone Rita Baron [facility] 1.2.347.793 [id number] Univers 00:00:00 00:00:00 HEALTH 350.1.13.10 it y of [place] 4.2.7.2.686 Ahmet as CIPRIANO?BLEA [id number] [address] OFFICE [facility] 2022-03-31 2022-03-31 Outpatient R STEPHANIE [facility] [id number] Univers 09:30:00 09:56:25 NUZHAT ity of [facility] 2022-03-31 2022-03-31 Office [facility] 1.2.840.114 [id number] Univers 09:30:00 09:56:25 Visit Nuzhat HEALTH 350.1.13.10 it y of [place] 4.2.7.2.686 Ahmet as CIPRIANO?BLEA [phone] Mo vannesa JO 092 [facility] OFFICE [facility] 2022-03-31 2022-03-31 Telephone [facility] 1.2.658.703 [id number] Univers 00:00:00 00:00:00 [facility] 350.1.13.10 it y of [place] 4.2.7.2.686 Ahmet as CIPRIANO?BLEA [id number] Mo vannesa JO 220 [facility] OFFICE [facility] 2022-03-19 2022-03-19 Telephone [facility] 1.2.487.422 [id number] Univers 00:00:00 00:00:00 Nuzhat HEALTH 350.1.13.10 it y of [place] 4.2.7.2.686 Ahmet as CIPRIANO?BLEA [phone] [facility] [address] [place] [address] OFFICE [facility] 2022-03-18 2022-03-18 [facility] 1.2.840.114 [id number] Univers 09:31:06 23:59:00 Encounter Nuzhat BEEBE 350.1.13.10 ity of [place] [id number] [facility] [address] 2022-03-18 2022-03-18 Office Radha Avitia [facility] 1.2.840.114 [id number] Univers 14:15:00 14:30:00 Visit HEALTH 350.1.13.10 it y of [place].2.[place] [phone] [facility] [place][note 2] [address] OFFICE BUILDING 2022-03-18 2022-03-18 Outpatient R RADHA AVITIA [facility] [id number] Univers 14:15:00 14:15:00 ity of [facility] 2022-03-05 2022-03-05 Laboratory Only, Ang Db Test [facility] 1.2.8 40.114 [id number] Univers 12:15:00 12:30:00 Only Unknown, Attending HEALTH 350.1.13.10 ity of [facility] 4.2.7.2.686 Ahmet as CIPRIANO?BLEA [phone] [address] MEDICAL OFFICE [facility] 2022-03-05 2022-03-05 Outpatient R LORELEI [facility] [id number] Univers 12:15:00 12:15:00 DAWNCox [place] 2022-03-05 2022-03-05 [facility] 1.2.840.114 [id number] Univers 00:00:00 00:00:00 (Out) [facility] 350.1.13.10 it y of [place] 4.2.7.2.686 Ahmet as CIPRIANO?BLEA [phone] [address] OFFICE [facility] 2022-03-04 2022-03-04 Outpatient R RADHA AVITIA [facility] [id number] Univers 15:00:00 15:00:00 [facility] 2022-03-02 2022-03-02 Outpatient R RICHARD [facility] [id number] Univers 13:40:00 13:54:53 GLADYS [facility] 2022-03-02 2022-03-02 Urgent Richard [facility] 1.2.840.11 [id number] Univers 13:40:00 13:54:53 Care Unknown, Attending [facility] 350.1.13.10 itanushka marcano [place] 4.2.7.2.686 Ahmet as CIPRIANO?BLEA [phone] [address] OFFICE [facility] 2022-02-25 2022-02-25 Outpatient R RK [facility] [id number] Univers 14:30:00 15:37:12 ROSANNA [facility] 2022-02-25 2022-02-25 Office Rk [facility] 1.2.658.011 [id number] Univers 14:30:00 15:37:12 Visit Rosanna BEEBE 350.1.13.10 i ty of [place].2.7.2.686 [place] [facility] [phone] Me dical NAL [address] [facility] 2022-02-25 2022-02-25 Office Brown, [facility] 1.2.840.114 [id number] Univers 09:30:00 10:00:21 Visit Hotchalk 350.1.13.10 it y of [place] 4.2.7.2.686 Ahmet as CIPRIANO?BLEA [id number] Mo dical KNEY 092 [facility] OFFICE [facility] 2022-02-21 2022-02-21 Telephone Gomez, [facility] 1.2.554.786 [id number] Univers 00:00:00 00:00:00 [facility] [employer] 350.1.13.10 it y of [place] 4.2.7.2.686 Ahmet as CIPRIANO?BLEA [phone] Mo dical KNEY 220 [facility] 2022-02-19 2022-02-19 Emergency X RIDDLE, [facility] ERT [id number] Univers 18:07:00 19:37:00 CHRISTOPHER it y of [facility] 2022-02-19 2022-02-19 Emergency [place], [facility] 1.2.909.450 [id number] Univers 18:07:00 19:37:00 Christopher [place] 350.1.13.10 ity of [facility] 4.2.7.2.[place] [phone] [facility] [address] 2022-02-18 2022-02-18 Telephone Gomez, [facility] 1.2.503.051 [id number] Univers 00:00:00 00:00:00 [facility] HEALTH 350.1.13.10 it y of [place] 4.2.7.2.686 Ahmet as CIPRIANO?BLEA [phone] Mo dical CHRISTINE 220 [facility] OFFICE [facility] 2022-02-18 2022-02-18 Telephone Gomez, [facility] 1.2.619.706 [id number] Univers 00:00:00 00:00:00 Yushino 350.1.13.10 it y of [place] 4.2.7.2.686 Ahmet as CIPRIANO?BLEA [phone] Mo dical CHRISTINE 220 [facility] OFFICE [facility] 2022-02-18 2022-02-18 [facility] 1.2.840.114 [id number] Univers 00:00:00 00:00:00 Radha BEEBE 350.1.13.10 ity of [facility] [place].2.7.2.[place] [phone] [address] 2022-02-17 2022-02-17 Outpatient R RADHA DRUMMOND [facility] [id number] Univers 14:08:16 23:59:00 RADHA DRUMMOND ity of [facility] 2022-02-17 2022-02-17 [facility] 1.2.353.739 [id number] Univers 14:08:16 23:59:00 Encounter Radha BEEBE 350.1.13.10 ity of [place] 4.2.7.2.[place] [phone] [address] 2022-02-12 2022-02-12 Outpatient R RADHA DRUMMOND [facility] [id number] Univers 08:30:00 09:46:57 RADHA DRUMMOND ity [facility] 2022-02-12 2022-02-12 Office [facility] 1.2.840.114 [id number] Univers 08:30:00 09:46:57 Visit [facility] 350.1.13.10 ity of [place] 4.2.7.2.[place] [phone] [address] 2022-02-11 2022-02-11 Telephone [facility] 1.2.086.560 [id number] Univers 00:00:00 00:00:00 Wentong HEALTH 350.1.13.10 it y of [place] 4.2.7.2.686 Ahmet as CIPRIANO?BLEA [phone] [address] MEDICAL OFFICE [facility] 2022-02-05 2022-02-05 Telephone [facility] 1.2.089.708 [id number] Univers 00:00:00 00:00:00 Wentong HEALTH 350.1.13.10 it y of [place] 4.2.7.2.686 Ahmet as CIPRIANO?BLEA [phone] [facility] 220 [facility] OFFICE [facility] 2022-01-29 2022-01-29 Telephone [facility] 1.2.957.892 [id number] Univers 00:00:00 00:00:00 [facility] [employer] 350.1.13.10 it y of [place] 4.2.7.2.686 Ahmet as CIPRIANO?BLEA [id number] [facility] 220 [facility] OFFICE [facility] 2022-01-28 2022-01-28 Residence Hall Director Lab, Ang - Db [facility] 1.2.840.1 14 [id number] Univers 12:00:00 12:16:22 Visit aJson [facility] 350.1.13.10 ity of [place] 4.2.7.2.686 Ahmet as CIPRIANO?BLEA [phone] [facility] 353 [facility] OFFICE [facility] 2022-01-28 2022-01-28 [facility] [id number] Univers 11:00:00 12:16:15 [facility] ity of [facility] 2022-01-28 2022-01-28 Office [facility] 1.2.840.114 [id number] Univers 11:00:00 12:16:15 Visit [facility] 350.1.13.10 it y of [place] 4.2.7.2.686 Ahmet as CIPRIANO?BLEA [phone] [address] OFFICE [facility] 2022-01-28 2022-01-28 Orders Doctor MICHEAL 1.2.840.114 [id number] Univers 00:00:00 00:00:00 Only Unassigned, GENARO 350.1.13.10 ity of [place] [facility] 4.2.7.2.686 Ahmet as [id number] [address] 2022-01-28 2022-01-28 Telephone [facility] 1.2.632.028 [id number] Univers 00:00:00 00:00:00 [facility] [employer] 350.1.13.10 it y of [place] 4.2.7.2.686 Ahmet as CIPRIANO?BLEA [id number] Mo dicjack JOEY 220 [facility] OFFICE [facility] 2022-01-28 2022-01-28 Telephone Hoda [facility] 1.2.840.114 [id number] Univers 00:00:00 00:00:00 Ogchristian BEEBE 350.1.13.10 ity of [facility] [place].2.7.2.[place] [phone] Mo dical [facility] [address] [facility] 2022-01-28 2022-01-28 Telephone Rita Baron [facility] 1.2.671.497 [id number] Univers 00:00:00 00:00:00 HEALTH 350.1.13.10 it y of [place] 4.2.7.2.686 Ahmet as CIPRIANO?BLEA [phone] Mo vannesa [facility] 220 [facility] 2021-12-19 2021-12-19 Outpatient Jaime RAMOS [facility] [id number] Univers 13:00:00 13:00:00 [facility] 2021-12-06 2021-12-06 Outpatient Jiame SANCHEZ [facility] [id number] Univers 13:30:00 13:30:00 [facility] 2021-11-08 2021-11-08 Outpatient Jaime SANCHEZ [facility] [id number] Univers 10:00:00 10:00:00 [facility] 2021-10-29 2021-10-29 Outpatient Jaime RAMOS [facility] [id number] Univers 10:00:00 10:00:00 [facility] 2021-10-29 2021-10-29 Outpatient Jaime RAMOS [facility] [id number] Univers 10:00:00 10:00:00 [facility] 2021-10-29 2021-10-29 Outpatient Jaime RAMOS [facility] [id number] Univers 10:00:00 10:00:00 [facility] 2021-10-29 2021-10-29 Outpatient Jaime RAMOS [facility] [id number] Univers 10:00:00 10:00:00 GLADYS [facility] 2021-10-29 2021-10-29 Outpatient R RICHARD [facility] [id number] Univers 10:00:00 10:00:00 GLADYS [facility] 2021-10-29 2021-10-29 Outpatient R RICHARD [facility] [id number] Univers 10:00:00 10:00:00 GLAYDS [facility] 2021-10-10 2021-10-10 Outpatient R [facility] [id number] Univers 15:20:00 15:20:00 [facility] 2021-10-10 2021-10-10 Outpatient R OZZIE [facility] [id number] Univers 11:20:00 11:42:20 MICHEAL [facility] 2021-10-10 2021-10-10 Urgent Micheal Calles [facility] 1.2.840.114 [id number] Univers 11:20:00 11:42:20 Care Unknown, Attending [facility] 350.1.13.10 ity [facility] 4.2.7.2.686 Ahmet as CIPRIANO?BLEA [phone] Mo vannesa JO [address] MEDICAL OFFICE BUILDING 2021-10-04 2021-10-04 [facility] [id number] Univers 14:00:00 14:00:00 [facility] 2021-09-06 2021-09-06 [facility] [id number] Univers 13:00:00 13:00:00 JOSSELYN [facility] 2021-08-02 2021-08-02 Outpatient R GONZALEZ [facility] [id number] Univers 15:30:00 15:30:00 DENAE [facility] 2021-08-01 2021-08-01 Telephone Hoda [facility] 1.2.840.114 [id number] Univers 00:00:00 00:00:00 Radha [place] 350.1.13.10 ity [facility] [place]2.7.2.[place] [phone] Mo vannesa [address] BU[address] 2021-08-01 2021-08-01 Telephone [facility] 1.2.840.114 [id number] Univers 00:00:00 00:00:00 Denae HEALTH 350.1.13.10 it y of [place] 4.2.7.2.686 Ahmet as CIPRIANO?BLEA [id number] [facility] JO 044 [facility] OFFICE [facility] 2021-07-05 2021-07-05 Outpatient R DANIEL [facility] [id number] Univers 10:00:00 10:00:00 JOSSELYN [facility] 2021-07-04 2021-07-04 Telephone Nicole [facility] 1.2.987.528 [id number] Univers 00:00:00 00:00:00 HEALTH 350.1.13.10 it y of [place] 4.2.7.2.686 Ahmet as CIPRIANO?BLEA [phone] [facility] Hospital[facility] 220 [facility] OFFICE [facility] 2021-07-02 2021-07-02 Telephone Nicole [facility] 1.2.243.488 [id number] Univers 00:00:00 00:00:00 HEALTH 350.1.13.10 it y of [place] 4.2.7.2.686 Ahmet as CIPRIANO?BLEA [phone] [facility] 220 [facility] OFFICE [facility] 2021-07-02 2021-07-02 Telephone Nicole [facility] 1.2.244.647 [id number] Univers 00:00:00 00:00:00 HEALTH 350.1.13.10 it y of [place] 4.2.7.2.686 Ahmet as CIPRIANO?BLEA [phone] [facility] Hospital[facility] JO [address] MEDICAL OFFICE [facility] 2021-07-01 2021-07-01 Outpatient R RITA BARON [facility] [id number] Univers 16:00:00 17:10:06 RITA BARON [facility] 2021-07-01 2021-07-01 Outpatient R RITA BARON [facility] [id number] Univers 16:00:00 17:10:06 RITA BARON [facility] 2021-07-01 2021-07-01 Office Rita Baron [facility] 1.2.840.114 [id number] Univers 16:00:00 17:10:06 Visit HEALTH 350.1.13.10 it y of [place] 4.2.7.2.686 Ahmet as CIPRIANO?BLEA [phone] Mo dical CHRISTINE [address] [place] MEDICAL OFFICE [facility] 2021-06-18 2021-06-18 [facility] 1.2.840.114 [id number] Univers 10:12:30 23:59:00 Encounter Angelita HEALTH 350.1.13.10 ity of [place] 4.2.7.2.686 Ahmet as CIPRIANO?BLEA [phone] Mo dical CHRISTINE 808 [facility] OFFICE [facility] 2021-06-18 2021-06-18 [facility] 1.2.840.114 [id number] Univers 09:20:00 10:11:32 Care Angelita HEALTH 350.1.13.10 it y of [place] 4.2.7.2.686 Ahmet as CIPRIANO?BLEA [phone] Mo dical DEYSI 370 [facility] OFFICE [facility] 2021-06-18 2021-06-18 Outpatient [facility] [id number] Univers 09:48:04 10:11:00 ANGELITA ity of [facility] 2021-06-18 2021-06-18 [facility] 1.2.840.114 [id number] Univers 09:48:04 10:11:00 Encounter Angelita HEALTH 350.1.13.10 ity of [place] 4.2.7.2.686 Ahmet as CIPRIANO?BLEA [phone] Mo dical CHRISTINE [address] MEDICAL OFFICE [facility] 2021-05-27 2021-05-27 Telephone [facility] 1.2.374.750 [id number] Univers 00:00:00 00:00:00 Josselyn HEALTH 350.1.13.10 it y of [place] 4.2.7.2.686 Ahmet as CIPRIANO?BLEA [phone] Mo dical CHRISTINE [address] [place] MEDICAL OFFICE [facility] 2021-05-24 2021-05-24 Telephone NGOZI Adan 1.2.840.114 [id number] Univers 00:00:00 00:00:00 Karin Y 350.1.13.10 i ty of [facility] 4.2.7.2.686 Ahmet as BANK [phone] [facility] BLDG. [address] 2021-05-22 2021-05-22 Outpatient R JACOB DRUMMONDADRIANOSteven [facility] [id number] Univers 10:30:00 11:35:17 [facility] 2021-05-22 2021-05-22 Office [facility] 1.2.840.114 [id number] Univers 10:30:00 11:35:17 Visit Critical access hospital 350.1.13.10 ity of [place].2.[place] [phone] Mo [address]ds[address] 2021-05-22 2021-05-22 Outpatient R RUSSELL DRUMMONDJackelinSteven [facility] [id number] Univers 10:30:00 10:30:00 RADHA DRUMMOND [facility] 2021-05-03 2021-05-03 Telephone [facility] 1.2.299.739 [id number] Univers 00:00:00 00:00:00 Josselyn HEALTH 350.1.13.10 it y of [place] 4.2.7.2.686 Ahmet as CIPRIANO?BLEA [id number] [facility] 220 [facility] 2021-04-12 2021-04-12 Telephone [facility] 1.2.132.220 [id number] Univers 00:00:00 00:00:00 Josselyn HEALTH 350.1.13.10 it y of [place] 4.2.7.2.686 Ahmet as CIPRIANO?BLEA [phone] Mo dical [facility] 220 [facility] 2021-04-12 2021-04-12 Telephone [facility] 1.2.072.321 [id number] Univers 00:00:00 00:00:00 Josselyn HEALTH 350.1.13.10 it y of [place] 4.2.7.2.686 Ahmet as CIPRIANO?BLEA [phone] Mo vannesa JO [address] [place] MEDICAL OFFICE [facility] 2021-04-11 2021-04-11 Orders Doctor MICHEAL 1.2.840.114 [id number] Univers 00:00:00 00:00:00 Only Unassigned, GENARO 350.1.13.10 ity of [place] [facility] 4.2.7.2.686 Ahmet as [phone] [address] 2021-04-10 2021-04-10 Telephone [facility] 1.2.767.396 [id number] Univers 00:00:00 00:00:00 [facility] 350.1.13.10 it y of [place] 4.2.7.2.686 Ahmet as CIPRIANO?BLEA [phone] [address] 2021-04-05 2021-04-05 [facility] [id number] Univers 10:00:00 10:40:49 [facility] 2021-04-05 2021-04-05 Outpatient [facility] [id number] Univers 10:00:00 10:00:00 [facility] 2021-04-04 2021-04-04 Telephone [facility] 1.2.840.114 [id number] Univers 00:00:00 00:00:00 Gladys ABIEL 350.1.13.10 i ty of [place] [id number] [address] 2021-04-03 2021-04-03 Office [facility] 1.2.399.315 [id number] Univers 15:45:00 16:15:00 Visit Gladys BEEBE 350.1.13.10 i ty of [place].2.7.2.[place] [phone] [address] 2021-04-03 2021-04-03 Outpatient R RICHARD [facility] [id number] Univers 15:45:00 15:45:00 GLADYS anushka [facility] 2021-04-03 2021-04-03 Outpatient R RICHARD [facility] [id number] Univers 15:45:00 15:45:00 GLADYS ity [facility] 2021-04-03 2021-04-03 Refill [facility] 1.2.583.743 [id number] Univers 00:00:00 00:00:00 Gladys BEEBE 350.1.13.10 i ty of [place].7.2.[place] [id number] Mo dicjack [place] [address] [facility] 2021-03-31 2021-03-31 Orders Doctor MICHEAL 1.2.840.114 [id number] Univers 00:00:00 00:00:00 Only Unassigned, GENARO 350.1.13.10 [facility] 4.2.7.2.686 Ahmet as [phone] [address] 2021-03-19 2021-03-19 Outpatient [facility] [id number] Univers 10:00:00 10:00:00 L[facility] 2021-03-18 2021-03-18 Telephone [facility] 1.2.059.484 [id number] Univers 00:00:00 00:00:00 Josselyn HEALTH 350.1.13.10 it y of [place] 4.2.7.2.686 Ahmet as CIPRIANO?BLEA [phone] Mo vannesa KING 220 [facility] 2021-03-18 2021-03-18 Telephone [facility] 1.2.840.114 [id number] Univers 00:00:00 00:00:00 Wondiful A HEALTH 350.1.13.10 ity of [place] 4.2.7.2.686 Ahmet as CIPRIANO?BLEA [phone] Mo dicjack KING 044 [facility] 2021-03-15 2021-03-15 Outpatient [facility] [id number] Univers 16:00:00 16:50:39 FATEMEH [facility] 2021-03-15 2021-03-15 Office [facility] 1.2.840.114 [id number] Univers 16:00:00 16:50:39 Visit Fatemeh HEALTH 350.1.13.10 it y of [place] 4.2.7.2.686 Ahmet as CIPRIANO?BLEA [phone] [facility] [address] MEDICAL OFFICE [facility] 2021-03-15 2021-03-15 Outpatient R OLYA [facility] [id number] Univers 16:00:00 16:50:39 FATEMEH longoria [facility] 2021-03-05 2021-03-05 Outpatient R DANIEL [facility] [id number] Univers 14:30:00 14:30:00 JOSSELYN gracielaanushka [facility] 2021-02-15 2021-02-15 Refill [facility] 1.2.840.114 [id number] Univers 00:00:00 00:00:00 Wondiful A HEALTH 350.1.13.10 ity of [place] 4.2.7.2.686 Ahmet as CIPRIANO?BLEA [phone] [address] OFFICE [facility] 2021-01-24 2021-01-24 Orders Doctor MICHEAL 1.2.840.114 [id number] Univers 00:00:00 00:00:00 Only Unassigned, GENARO 350.1.13.10 ity of [place] [facility] 4.2.7.2.686 Ahmet as [phone] [address] 2021-01-21 2021-01-21 Residence Hall Director Lab, Ang - [facility] 1.2.840.1 14 [id number] Univers 14:29:38 14:44:38 Visit Eve Salgado HEALTH 350.1.13.1 0 ity of [place] 4.2.7.2.686 Ahmet as CIPRIANO?BLEA [phone] [facility] 353 [facility] OFFICE [facility] 2021-01-21 2021-01-21 Office Damian [facility] 1.2.840.114 [id number] Univers 13:26:38 14:32:25 Visit Wonjersonful A HEALTH 350.1.13.10 ity of [place] 4.2.7.2.686 Ahmet as CIPRIANO?BLEA [phone] [address] OFFICE [facility] 2021-01-21 2021-01-21 Outpatient [facility] [id number] Univers 13:15:00 14:32:25 WONDIFUL ity o f [facility] 2021-01-09 2021-01-[address] [facility] ERT [id number] Univers 20:52:00 22:30:00 TRUDY ity of [facility] 2021-01-09 2021-01-09 Emergency [facility] [id number] Univers 20:52:00 22:30:00 Trudy BEEBE 350.1.13.10 i ty of [place] [phone] [facility] [address] [place] 2021-01-09 2021-01-09 Orders Doctor MICHEAL [id number] Univers 00:00:00 00:00:00 Only Unassigned, GENARO 350.1.13.10 ity of [place] [facility] 4.2.7.2.686 Ahmet as [phone] [facility] [address] [place] 2021-01-09 2021-01-09 Telephone MICHEAL Clarke [id number] Univers 00:00:00 00:00:00 Idalia LAM 350.1.13.10 ity of [facility] 4.2.7.2.686 Ahmet as [phone] [facility] [address] [place] 2021-01-05 2021-01-05 [facility] [id number] Univers 00:00:00 00:00:00 Tylor BEEBE 350.1.13.10 ity of [place] [facility] [phone] [place] vannesa COWART 092 [facility] 2020-12-07 2020-12-07 Telephone [facility] [id number] Univers 00:00:00 00:00:00 Wondiful A [facility] 350.1.13.10 [facility] 4.2.7.2.686 Ahmet as CIPRIANO?BLEA [phone] [address] OFFICE [facility] 2020-11-30 2020-11-30 Telephone [facility] [id number] Univers 00:00:00 00:00:00 Linette [facility] 350.1.13.10 i ty of [place] 4.2.7.2.686 Ahmet as Cipriano?Blea [phone] [address] Office [facility] 2020-11-30 2020-11-30 Telephone [facility] [id number] Univers 00:00:00 00:00:00 Linette [facility] Health 350.1.13.10 i ty of [place] 4.2.7.2.686 Ahmet as Cipriano?Blea [phone] [address] Office [facility] 2020-11-29 2020-11-29 Office [facility] 1.2.840.114 [id number] Univers 09:25:19 09:55:19 Visit Linette [facility] 350.1.13.10 i ty of [place] 4.2.7.2.686 Ahmet as Cipriano?Blea [phone] [address] Office [facility] 2020-11-29 2020-11-29 [facility] [id number] Univers 09:30:00 09:30:00 LINETTE longoria [facility] 2020-11-23 2020-11-23 [facility] [id number] Univers 13:30:00 14:32:48 JOSSELYNRACIEL longoria [facility] 2020-11-23 2020-11-23 [facility] [id number] Univers 13:29:10 14:32:48 Visit Josselyn HEALTH 350.1.13.10 it y of [place] [id number] Ahmet as CIPRIANO?BLEA [phone] [facility] 220 [facility] OFFICE [facility] 2020-11-23 2020-11-23 [facility] [id number] Univers 13:30:00 13:30:00 JOSSELYNRACIEL longoria [facility] 2020-11-23 2020-11-23 Telephone [facility] [id number] Univers 00:00:00 00:00:00 Josselyn Health [id number] it y of [place] 4.2.7.2.686 Ahmet as Cipriano?Blea [phone] Mo vannesa king 220 [facility] Office [facility] 2020-11-23 2020-11-23 Telephone [facility] 1.2.840.114 [id number] Univers 00:00:00 00:00:00 [facility] 350.1.13.10 ity of [place] 4.2.7.2.686 Ahmet as Cipriano?Blea [phone] Mo vannesa [facility] 092 [facility] 2020-11-20 2020-11-20 Outpatient [facility] [id number] Univers 13:30:00 13:30:00 JOSSELYN ity [facility] 2020-11-13 2020-11-13 Office NGOZI Adan [id number] [facility] 12:59:34 13:52:00 Visit Karin Y 350.1.13.10 i ty of [place] 4.2.7.2.686 Ahmet as BANK [phone] [facility] 136 [place] 2020-11-13 2020-11-13 Outpatient [facility] [id number] Univers 13:15:00 13:15:00 KARIN ity o f [facility] 2020-11-07 2020-11-07 Case [facility] [id number] Univers 00:00:00 00:00:00 Management Gladys Beebe 350.1.13.10 [place] [phone] Mo vannesa cowart 134 [facility] 2020-11-01 2020-11-01 Telephone RafaeledilmageorgeUN[facility] 1.2.840.114 [id number] Univers 00:00:00 00:00:00 Gladys Beebe 350.1.13.10 i [place] [phone] Mo dical nal 134 [facility] 2020-10-29 2020-10-29 Residence Hall Director 2, Adc Lab [facility] 1.2.840.114 [id number] Univers 14:04:55 14:19:55 Visit Gladys Ramos 350.1.13.10 ity of [place] [phone] Mo dical nal 353 [facility] 2020-10-29 2020-10-29 Office [facility] 1.2.030.485 [id number] Univers 13:11:40 14:02:18 Visit Gladys Beebe 350.1.13.10 i ty of [place] [phone] Mo dical nal 134 [facility] 2020-10-29 2020-10-29 Outpatient R DONALD [facility] [id number] Univers 11:00:00 11:00:00 [facility] 2020-10-29 2020-10-29 Orders Doctor MICHEAL 1.2.840.114 [id number] Univers 00:00:00 00:00:00 Only Unassigned, GENARO 350.1.13.10 ity of [place] [facility] 4.2.7.2.686 Ahmet as [phone] [address] 2020 2020 Outpatient Jaime ADAN [facility] [id number] Univers 14:15:00 14:15:00 KARINRANDY longoria o f [facility] 2020-10-24 2020-10-24 Outpatient R DONALD [facility] [id number] Univers 15:00:00 [facility]:00:00 [facility] 2020-10-10 2020-10-10 Telephone [facility] [id number] Univers 00:00:00 00:00:00 Josselyn Beebe 350.1.13.10 i ty of [place] [phone] Mo dical nal 220 [facility] 2020-10-05 2020-10-05 Outpatient R DAMIAN [facility] [id number] Univers 14:30:00 14:30:00 WONDIFUL ity o f [facility] 2020-10-04 2020-10-04 Outpatient R LOCO, [facility] [id number] Univers 15:00:00 15:00:00 KARIN ity o [facility] 2020-10-03 2020-10-03 Outpatient R RICHARD [facility] [id number] Univers 14:00:00 14:00:00 GLADYS [facility] 2020-09-26 2020-09-26 Outpatient R DONALD [facility] [id number] Univers 13:45:00 13:45:00 LYDIA [facility] 2020-09-24 2020-09-24 Outpatient TYLOR REILLY [facility] [id number] Univers 00:00:00 00:00:00 TYLOR DEVLIN [facility] 2020-09-14 2020-09-14 Outpatient TYLOR REILLY [facility] [id number] Univers 16:20:00 16:20:00 TYLOR DEVLIN [facility] 2020-09-11 2020-09-11 Outpatient TYLOR REILLY [facility] [id number] Univers 11:00:00 11:00:00 TYLOR DEVLIN [facility] 2020-09-06 2020-09-06 Office [facility] 1.2.840.114 [id number] 14:45:51 17:24:18 Visit [facility] A [facility] 350.1.13.10 [place] 4.2.7.2.686 Professio [phone] nal 044 [address] 2020-09-06 2020-09-06 Outpatient R DAMIAN [facility] [id number] Univers 14:30:00 14:30:00 WONDIFUL ity o f [facility] 2020-09-06 2020-09-06 Outpatient R DAMIAN [facility] [id number] Univers 14:30:00 14:30:00 WONDIFUL ity o f [facility] 2020-08-24 2020-08-24 Outpatient R SUBHA [facility] [id number] Univers 14:30:00 14:30:00 JC anushka [facility] 2020-08-24 2020-08-24 Outpatient R SUBHA [facility] [id number] Univers 14:30:00 14:30:00 JC [facility] 2020-08-23 2020-08-23 Orders Doctor BURTON 1.2.840.114 [id number] Univers 00:00:00 00:00:00 Only Unassigned, GENARO 350.1.13.10 ity of [place] [facility] 4.2.7.2.686 Ahmet as [phone] [address] 2020-08-17 2020-08-17 Outpatient R CHAS [facility] [id number] Univers 14:30:00 15:32:02 BETHEL [facility] 2020-08-17 2020-08-17 Outpatient Jaime DOHERTY [facility] [id number] Univers 14:30:00 14:30:00 BETHEL [facility] 2020-08-13 2020-08-13 Outpatient R DONALD [facility] [id number] Univers 10:00:00 10:00:00 [facility] 2020-08-07 2020-08-07 Outpatient Jaime BENNETT [facility] [id number] Univers 11:00:00 11:00:00 [facility] 2020-07-03 2020-07-03 Outpatient Jaime BENNETT [facility] [id number] Univers 09:30:00 09:30:00 LYDIA [facility] 2020-06-20 2020-06-20 Outpatient R LOGAN HUBER [facility] [id number] Univers 19:30:00 19:30:00 LOGAN HUBER [facility] 2020-06-15 2020-06-15 Outpatient R [facility] [id number] Univers 10:45:00 10:45:00 [facility] 2020-06-15 2020-06-15 Outpatient R SINCERE [facility] [id number] Univers 09:00:00 09:00:00 SEUN [facility] 2020-06-11 2020-06-11 Outpatient R EUGENIA [facility] [id number] Univers 00:00:00 00:00:00 LETTY anushka [facility] 2020-06-05 2020-06-05 Outpatient R EUGENIA [facility] [id number] Univers 14:15:00 14:15:00 LETTY [facility] 2020-05-25 2020-05-25 Outpatient R QUITATYLOR [facility] [id number] Univers 11:20:00 11:20:00 QUITA TYLOR [facility] 2020-05-22 2020-05-22 Outpatient R EUGENIA [facility] [id number] Univers 14:45:00 14:45:00 [facility] 2020-05-18 2020-05-18 Outpatient R CHAS [facility] [id number] Univers 09:00:00 09:00:00 BETHEL [facility] 2020-05-08 2020-05-08 Outpatient RADHA ODONNELL [facility] [id number] Univers 14:45:00 14:45:00 [facility] 2020-05-08 2020-05-08 Outpatient RADHA ODONNELL [facility] [id number] Univers 11:15:00 11:15:00 [facility] 2020-05-03 2020-05-03 Outpatient R RK [facility] [id number] Univers 10:00:00 10:00:00 ROSANNA [facility] 2020-04-26 2020-04-26 Outpatient R RICHARD, [facility] [id number] Univers 00:00:00 00:00:00 GLADYS [facility] 2020-04-26 2020-04-26 (TEL) STLMLC STLMLC [id number] Co mmon 00:00:00 00:00:00 [facility] 2020-04-26 2020-04-26 (TEL) STLMLC STLMLC [id number] Co mmon 00:00:00 00:00:00 [facility] 2020-04-24 2020-04-24 Outpatient TYLOR REILLY [facility] [id number] Univers 00:00:00 00:00:00 TYLOR DEVLIN [facility] 2020-04-17 2020-04-17 Outpatient TYLOR REILLY [facility] [id number] Univers 00:00:00 00:00:00 TYLOR DEVLIN [facility] 2020-04-09 2020-04-09 (TEL) STLMLC STLMLC [id number] Co mmon 00:00:00 00:00:00 [facility] 2020-04-04 2020-04-04 OFFICE STLMLC STLMLC [id number] Co mmon 00:00:00 00:00:00 VISIT Spirit ESTAB PT - CHI LEVEL 4 [facility] 2020-03-20 2020-03-20 Outpatient TYLOR REILLY [facility] [id number] Univers 11:00:00 11:00:00 TYLOR DEVLIN [facility] 2020-03-19 2020-03-19 (TEL) STLMLC STLMLC [id number] Co mmon 00:00:00 00:00:00 [facility] 2020-03-19 2020-03-19 OFFICE STLMLC STLMLC [id number] Co mmon 00:00:00 00:00:00 VISIT EST Spir it PT LEVEL 3 - [facility] 2020-03-16 2020-03-16 Outpatient TYLOR REILLY [facility] [id number] Univers 15:20:00 15:20:00 TYLOR DEVLIN [facility] 2020-03-13 2020-03-13 Outpatient Jaime TYLOR DEVLIN [facility] [id number] Univers 11:00:00 11:00:00 TYLOR DEVLIN [facility] 2020-03-09 2020-03-09 Outpatient Jaime TELLO [facility] [id number] Univers 13:00:00 13:00:00 JANE longoria o f [facility] 2020-02-15 2020-02-15 OFFICE STLMLC STLMLC [id number] Co mmon 00:00:00 00:00:00 VISIT EST Spir it PT LEVEL 3 - [facility] 2020-02-13 2020-02-13 Outpatient R [facility] [id number] Univers 09:00:00 09:00:00 ity [facility] 2020-01-25 2020-01-25 OFFICE STLMLC STLMLC [id number] Co mmon 00:00:00 00:00:00 VISIT EST Spir it PT LEVEL 3 - [facility] 2020-01-24 2020-01-24 (TEL) STLMLC STLMLC [id number] Co mmon 00:00:00 00:00:00 Spirit - [facility] 2020-01-23 2020-01-23 Outpatient TYLOR REILLY [facility] [id number] Univers 10:00:00 10:00:00 TYLOR DEVLIN [facility] 2020-01-02 2020-01-02 Outpatient TYLOR REILLY [facility] [id number] Univers 13:00:00 13:00:00 TYLOR DEVLIN [facility] 2019-12-07 2019-12-07 OFFICE STLMLC STLMLC [id number] Co mmon 00:00:00 00:00:00 VISIT EST Spir it PT LEVEL 3 - [facility] 2019-11-22 2019-11-22 OFFICE STLMLC STLMLC [id number] Co mmon 00:00:00 00:00:00 VISIT Spirit ESTAB PT - CHI LEVEL 4 [facility] 2019-11-14 2019-11-14 OFFICE STLMLC STLMLC [id number] Co mmon 00:00:00 00:00:00 VISIT EST Spir it PT LEVEL 3 - [facility] 2019-10-26 2019-10-26 Outpatient Jaime RAMOS [facility] [id number] Univers 00:00:00 00:00:00 GLADYS [facility] 2019 2019 Out[facility] [id number] Common 13:40:00 13:40:[address] [employer] [address] Family [facility] Family Medicine [facility] 2019-10-18 2019-10-18 Outpatient Jaime RAMOS, [facility] [id number] Univers 13:30:00 13:30:00 GLADYS longoria [facility] 2018-09-16 2018-09-16 Outpatient Jaime TOLEDO, [facility] [id number] Univers 14:45:00 17:13:50 MARÍA [facility] 2018-05-14 2018-05-14 [facility] [id number] Common 11:52:00 11:52:00 [facility] 2018-04-27 2018-04-27 Out[facility] [id number] Common 10:40:00 10:40:00 t Womens Womens Care S pirit Care [facility] 2018-04-27 2018-04-27 Outpatient [facility] [id number] Common 10:07:00 10:07:00 t Womens Womens Care S pirit Care [facility] 2018-04-27 2018-04-27 Outpatient [facility] [id number] Common 09:15:00 09:15:00 t Specialty/U Sp arianna Specialty rology - [facility] 2018-04-26 2018-04-26 Outpatient [facility] [id number] Common 13:36:00 13:36:00 t Specialty/U Sp arianna Specialty rology - [facility] 2018-04-21 2018-04-21 Outpatient [facility] [id number] Common 10:00:00 10:00:00 t [facility] 2017-08-24 2017-08-24 Out[facility] [id number] Common 10:31:00 10:31:[address] Spir [address] Drive [facility] 2017-07-22 2017-07-22 Outpatient [facility] [id number] Common 11:05:00 11:05:00 t Women's Women's Spir it Care Care Clinic - I [facility] 2017-05-26 2017-05-26 Outpatient [facility] [id number] Common 09:15:00 09:15:00 t [employer] [facility] it [facility] Results Test Description Test Time Test Comments Results Result Comments Source POCT SARS-COV-2 ANTIGEN (BINAX NOW) 2022-03-02 19:45:00 Test Item Value Reference Range Interpretation Comme nts POCT SARS-COV-2 ANTIGEN (test code = 02180-3) Positive Not Dete cted A On board controls acceptable with C Line (test code = 3574) Yes Lab Interpretation (test code = 33465-4) Abnormal [facility] [id number] 22:17:34 Test Item Value Reference Range Interpretation Comments FREE T4 (test code = See_Comment [Autom ated message] 0030282337) The system [employer] generated this result transmitted ref erence range: 0.78 - 2 .20 ng/dL:. The ref erence range was not u sed to interpret this result as normal/abnor mal. Lab Interpretation (test Normal code = 40467-0) [id number]TOTAL CHOLESTEROL, TRIGLYCERIDES, HDL)2022-01-28 21:59:44 Test Item Value Reference Range Interpretation Comments CHOL (test code = 212 mg/dL 120-200 H 0273935089) HDL (test code = 37 mg/dL See_Comment L [Automated message] 3702691116) The system [employer] generated this result transmit darshan reference range : >=50. The refer ence range was not u sed to interpret th is result as normal/abnormal . HDLC RATIO (test code = See_Comment H [Au tomated message] 6599221136) The system [employer] generated this result transmit darshan reference range : <=4.5. The refe rence range was not u sed to interpret th is result as normal/abnormal . TRIG (test code = 174 mg/dL 30-170 H 7950644728) LDL CHOL (test code = 140 mg/dL See_Comment [Auto mated message] 20145-2) The system [employer] generated this result transmit darshan reference range : <=160. The refe rence range was not u sed to interpret th is result as normal/abnormal . VLDL (test code = 35 mg/dL 5-60 2327653592) Lab Interpretation (test Abnormal code = 40261-3) [facility] (75909)(TOTAL CHOLESTEROL, TRIGLYCERIDES, HDL)2022-01-28 21:59:44 Test Item Value Reference Range Interpretation Comments CHOL (test code = 212 mg/dL 120-200 H 0066712781) HDL (test code = 37 mg/dL See_Comment L [Automated message] 0814281441) The system [employer] generated this result transmit darshan reference range : >=50. The refer ence range was not u sed to interpret th is result as normal/abnormal . HDLC RATIO (test code = See_Comment H [Au tomated message] 8303222419) The system [employer] generated this result transmit darshan reference range : <=4.5. The refe rence range was not u sed to interpret th is result as normal/abnormal . TRIG (test code = 174 mg/dL 30-170 H 7964036531) LDL CHOL (test code = 140 mg/dL See_Comment [Auto mated message] 34389-3) The system [employer] generated this result transmit darshan reference range : <=160. The refe rence range was not u sed to interpret th is result as normal/abnormal . VLDL (test code = 35 mg/dL 5-60 2040235923) Lab Interpretation (test Abnormal code = 13258-1) [facility] (90632)(TOTAL CHOLESTEROL, TRIGLYCERIDES, HDL)2022-01-28 21:59:44 Test Item Value Reference Range Interpretation Comments CHOL (test code = 212 mg/dL 120-200 H 5885531865) HDL (test code = 37 mg/dL See_Comment L [Automated message] 5582767440) The system [employer] generated this result transmit darshan reference range : >=50. The refer ence range was not u sed to interpret th is result as normal/abnormal . HDLC RATIO (test code = See_Comment H [Au tomated message] 6186510817) The system [employer] generated this result transmit darshan reference range : <=4.5. The refe rence range was not u sed to interpret th is result as normal/abnormal . TRIG (test code = 174 mg/dL 30-170 H 0052079753) LDL CHOL (test code = 140 mg/dL See_Comment [Auto mated message] 53359-2) The system ic h generated this result transmit darshan reference range : <=160. The refe rence range was not u sed to interpret th is result as normal/abnormal . VLDL (test code = 35 mg/dL 5-60 6367317275) Lab Interpretation (test Abnormal code = 34135-6) [facility] WITH [id number] 20:29:44 Test Item Value Reference Range Interpretation [...] (test code = 37.2 fL 39.0-49.9 L 15592-8) RDW-CV (test code = 11.9 % 12.0-15.5 L 788-0) PLT (test code = See_Comment [Automated 777-3) message] The sy stem which generated this result transmitted reference range : 166 - 358 10*3/ ?L. The reference r robbie was not used to interpret this result as normal/abnormal . MPV (test code = 11.7 fL 9.5-12.9 45192-7) NRBC/100 WBC (test See_Comment [Automat ed code = 2400474997) message] The system which generated this result transmitted reference range : 0.0 - 10.0 /100 WBCs. The refer ence range was not u sed to interpret th is result as normal/abnormal . NRBC x10^3 (test code See_Comment [Auto mated = 8444892956) message] The s ystem which generated this result transmitted reference range : 10*3/?L. The reference range was not used to interpret this result as normal/abnormal . GRAN MAT (NEUT) % 65.1 % (test code = 770-8) IMM GRAN % (test code 0.10 % = 0908663231) LYMPH % (test code = 27.3 % 736-9) MONO % (test code = 5.6 % 5905-5) EOS % (test code = 1.2 % 713-8) BASO % (test code = 0.7 % 706-2) GRAN MAT x10^3(ANC) 5.57 10*3/uL 1.88-7.09 (test code = 0413818687) IMM GRAN x10^3 (test 0.00-0.06 code = 0378768463) LYMPH x10^3 (test code 2.34 10*3/uL 1.32-3.29 = 731-0) MONO x10^3 (test code 0.48 10*3/uL 0.33-0.92 = 742-7) EOS x10^3 (test code = 0.10 10*3/uL 0.03-0.39 711-2) BASO x10^3 (test code 0.06 10*3/uL 0.01-0.07 = 704-7) Lab Interpretation Abnormal (test code = 79896-0) [facility] WITH [id number] 20:29:44 Test Item Value Reference Range Interpretation Comments WBC (test code = See_Comment [Automated 7790-2) message] The sy stem which generated this result transmitted reference range : 4.30 - 11.10 10*3/?L. The reference range was not used to interpret this result as normal/abnormal . RBC (test code = See_Comment H [Automated 359-8) message] The sy stem which generated this [...] (test code = 37.2 fL 39.0-49.9 L 62688-9) RDW-CV (test code = 11.9 % 12.0-15.5 L 788-0) PLT (test code = See_Comment [Automated 777-3) message] The sy stem which generated this result transmitted reference range : 166 - 358 10*3/ ?L. The reference r robbie was not used to interpret this result as normal/abnormal . MPV (test code = 11.7 fL 9.5-12.9 86057-8) NRBC/100 WBC (test See_Comment [Automat ed code = 7849875409) message] The system which generated this result transmitted reference range : 0.0 - 10.0 /100 WBCs. The refer ence range was not u sed to interpret th is result as normal/abnormal . NRBC x10^3 (test code See_Comment [Auto mated = 9378305100) message] The s ystem which generated this result transmitted reference range : 10*3/?L. The reference range was not used to interpret this result as normal/abnormal . GRAN MAT (NEUT) % 65.1 % (test code = 770-8) IMM GRAN % (test code 0.10 % = 3960208821) LYMPH % (test code = 27.3 % 736-9) MONO % (test code = 5.6 % 5905-5) EOS % (test code = 1.2 % 713-8) BASO % (test code = 0.7 % 706-2) GRAN MAT x10^3(ANC) 5.57 10*3/uL 1.88-7.09 (test code = 8332794788) IMM GRAN x10^3 (test 0.00-0.06 code = 9232043638) LYMPH x10^3 (test code 2.34 10*3/uL 1.32-3.29 = 731-0) MONO x10^3 (test code 0.48 10*3/uL 0.33-0.92 = 742-7) EOS x10^3 (test code = 0.10 10*3/uL 0.03-0.39 711-2) BASO x10^3 (test code 0.06 10*3/uL 0.01-0.07 = 704-7) Lab Interpretation Abnormal (test code = 27051-8) [facility] WITH [id number] 20:29:44 Test Item Value Reference Range Interpretation Comments WBC (test code = See_Comment [Automated 8090-2) message] The sy stem which generated this result transmitted reference range : 4.30 - 11.10 10*3/?L. The reference range was not used to interpret this result as normal/abnormal . RBC (test code = See_Comment H [Automated 689-8) message] The sy stem which generated this [...] (test code = 37.2 fL 39.0-49.9 L 44693-7) RDW-CV (test code = 11.9 % 12.0-15.5 L 788-0) PLT (test code = See_Comment [Automated 777-3) message] The sy stem which generated this result transmitted reference range : 166 - 358 10*3/ ?L. The reference r robbie was not used to interpret this result as normal/abnormal . MPV (test code = 11.7 fL 9.5-12.9 33628-7) NRBC/100 WBC (test See_Comment [Automat ed code = 4315573172) message] The system which generated this result transmitted reference range : 0.0 - 10.0 /100 WBCs. The refer ence range was not u sed to interpret th is result as normal/abnormal . NRBC x10^3 (test code See_Comment [Auto mated = 9772704858) message] The s ystem which generated this result transmitted reference range : 10*3/?L. The reference range was not used to interpret this result as normal/abnormal . GRAN MAT (NEUT) % 65.1 % (test code = 770-8) IMM GRAN % (test code 0.10 % = 4107743666) LYMPH % (test code = 27.3 % 736-9) MONO % (test code = 5.6 % 5905-5) EOS % (test code = 1.2 % 713-8) BASO % (test code = 0.7 % 706-2) GRAN MAT x10^3(ANC) 5.57 10*3/uL 1.88-7.09 (test code = 7454015839) IMM GRAN x10^3 (test 0.00-0.06 code = 0065713653) LYMPH x10^3 (test code 2.34 10*3/uL 1.32-3.29 = 731-0) MONO x10^3 (test code 0.48 10*3/uL 0.33-0.92 = 742-7) EOS x10^3 (test code = 0.10 10*3/uL 0.03-0.39 711-2) BASO x10^3 (test code 0.06 10*3/uL 0.01-0.07 = 704-7) Lab Interpretation Abnormal (test code = 27197-3) [facility] HEMOGLOBIN A1C [id number] 17:28:00 Test Item Value Reference Range Interpretation Comments POCT HBA1C (test code = 4548-4) 11.0 % 4-6 A Lab Interpretation (test code = Abnormal 57602-1) [facility] HEMOGLOBIN A1C [id number] 17:28:00 Test Item Value Reference Range Interpretation Comments POCT HBA1C (test code = 4548-4) 11.0 % 4-6 A Lab Interpretation (test code = Abnormal 80841-1) [facility] SARS-COV-2 ANTIGEN (BINAX NOW)2021-10-10 16:37:00 Test Item Value Reference Range Interpretation Comments POCT SARS-COV-2 ANTIGEN (test Not Detected Not Detected code = 5076) On board controls acceptable Yes with C Line (test code = 3574) Lab Interpretation (test code = Normal 92473-0) [facility] HEMOGLOBIN A1C [id number] 21:17:00 Test Item Value Reference Range Interpretation Comments POCT HBA1C (test code = 4548-4) 10.4 % 4-6 A Lab Interpretation (test code = Abnormal 59144-9) [facility] HEMOGLOBIN A1C [id number] 21:17:00 Test Item Value Reference Range Interpretation Comments POCT HBA1C (test code = 4548-4) 10.4 % 4-6 A Lab Interpretation (test code = Abnormal 99994-2) [id number] 06[facility]40:00 Test Item Value Reference Range Interpretation Comments GLUBED (test code = GLUBED) 92 mg/dL 65-110 N [id number] 23:29:00 Test Item Value Reference Range Interpretation Comments GLUBED (test code = GLUBED) 98 mg/dL 65-110 N [id number] 06:39:00 Test Item Value Reference Range Interpretation Comments GLUBED (test code = GLUBED) 94 mg/dL 65-110 N [id number] 22:51:00 Test Item Value Reference Range Interpretation Comments GLUBED (test code = GLUBED) 112 mg/dL 65-110 H [id number] 19:02:00 Test Item Value Reference Range Interpretation Comments GLUBED (test code = GLUBED) 76 mg/dL 65-110 N [id number] 13:24:00 Test Item Value Reference Range Interpretation Comments GLUBED (test code = GLUBED) 80 mg/dL 65-110 N [id number] 07:43:00 Test Item Value Reference Range Interpretation Comments GLUBED (test code = GLUBED) 86 mg/dL 65-110 N [id number] 21:39:00 Test Item Value Reference Range Interpretation Comments GLUBED (test code = GLUBED) 111 mg/dL 65-110 H [id number] 18:57:00 Test Item Value Reference Range Interpretation Comments GLUBED (test code = GLUBED) 103 mg/dL 65-110 N CHEMISTRY 7 [id number] 13:47:00 Test Item Value Reference Range Interpretation [...] CA) 8.5 mg/dL 8.4-10.2 N CBC W/AUTO [id number] 13:29:00 Test Item Value Reference Range Interpretation [...] NORMAL NORMAL code = PLTMR) SOFT TISSUE,NOT DANNIE/MASS/[id number] 13:23:00 RUN DATE: 12/21/18 [facility] PAGE 1 RUN TIME: 1410 Specimen Inquiry RUN USER: INTERFACE --PATIENT: STACY THOMPSON LOC: JOSE #: [id number] AGE/SX: 28/F ROOM: [facility] RE12/15/18REG DR: Arpan Min MD : 88 BED: A DIS: STATUS: ADM IN TLOC: SPEC #: [id number] RECD: 12/20/18 STATUS: OLEGARIO RE #: [id number] ARELIS: 12/17/18- SUBM DR: Arpan Min MD ENTERED: 12/20/18 SP TYPE: SOFTNOTMLD OTHR DR: Jesús Moreau MD, Jill C MD Nasser, Dean A MDORDERED: LEVEL IV CODES: [id number] - SOFT TISSUES, N COPIES TO: Jesús Moreau MD [address] [place] [address] Lianet Weir MD [address] [address] [email or web address] [place] [address] [place] [address] Arpan Min MD [address] [facility] [address] [place] [id number] PROCEDURES: LEVEL IV (Incomplete) TISSUES: SOFT TISSUES, NOS - EPIPLOACA WITH ABSCESS/SIGMOID/UTERUS,CERVIX,TUBES AND OVARIES CLINICAL HISTORY 28 year old, tubo-ovarian abscess (kr) CONTINUED ON NEXT PAGE RUN DATE: 12/21/18 [facility] PAGE 2 RUN TIME: 1410 Specimen Inquiry RUN USER: INTERFACE SPEC #: [id number] PATIENT: STACY THOMPSON #[id number] (Continued) FINAL DIAGNOSIS Epiploica with abscess, excision: - fibroadipose tissuewith acute, subacute and chronic inflammation with foreign body giant cell reaction Sigmoid, resection: - diverticular disease - acute and chronic serositis with fibrous adhesions Uterus, bilateral fallopian tubes and ovaries, hysterectomy and bilateral salpingo-oophorectomy: - cervix - mild to moderate acute and chronic inflammation and parakeratosis - no dysplasia identified - endometrium - benign,proliferative phase - myometrium - no significant pathologic alteration - uterine serosa - acute, subacute and chronic inflammation - fibrous adhesions - bilateral fallopian tubes and ovaries- tubo-ovarian abscesses with severe transmural acute and chronic salpingitis, pyosalpinx, tuboovarian adhesions, and ovarian serosal abscesses CPT code(s): 66626 x2, 53430 lsh 12/21/18 GROSS DESCRIPTION ANATOMICSOURCE OF TISSUE (per Requisition): 1. Epiploica with abscess 2. Sigmoid 3. Uterus, cervix, bilateral fallopian tubes and ovaries Each specimen is labeled with the patient's name and medical record number. Specimen #1 is designated "epiploica with abscess" and consists of a 2.5 x 1.5 x 1.0 cm pink-yellow, lobulated portion of adipose tissue with overlying exudate. The cut surfaces are pale yellow andfirm with focal areas of hemorrhage. There is [...] 3 RUN TIME: 1410 Specimen Inquiry RUN USER:INTERFACE SPEC #: [id number] PATIENT: STACY THOMPSON #[id number] (Continued) GROSS DESCRIPTION (Continued) areas of induration, fibrosis and possible fat necrosis. Section code: B1 - donuts, B2 through B6 - district representative sections of bowel with possible diverticular [...] adnexa are pink-purple, hyperemic, and nodular with multiple adhesions. The larger ovary displays a 5.5 cm abscess, which involves the outer surface of the ovary and fallopian tube. The remainder of the ovarian stroma is ariza, soft, slightly edematous, and nodular, with multiple clear, serous, and slightly viscous cysts, 0.3 to 2.5 cm. There are no identifiable excrescences. Section code: C1 - cervix, C2 - anterior endometrium, C3 - posterior endomyometrium, C4 - serosal adhesions, C5 and C6 - district representative sections of small adnexa, C7 through C9 - district representative sections of large adnexa. diana 12/20/18 @ 1125 Signed Diana James MD 12/21/18 1323 END OF REPORT [id number] 13:17:00 Test Item Value Reference Range Interpretation Comments GLUBED (test code = GLUBED) 89 mg/dL 65-110 N - XR ABDOMEN [id number] 10:26:00 Patient Name: STACY THOMPSON Unit No: [id number] EXAMS: CPT CODE: [id number] XR ABDOMEN 2V 30123 ABDOMINAL RADIOGRAPHS- ERECT AND SUPINE COMPARISON: CT [...] Weir Technologist: RT Dom Trnscrbd D/ (1026) [id number] Orig Print D/T: S: 12/21/2018 (1029) [facility] NAME: STACY THOMPSON Radiology Department PHYS: Arpan Wallace MD [address] : 1990 AGE: 28 SEX: F [place], [place] [address] LOC: F.2650 [address] PHONE #: [phone] EXAM DATE: 12/21/2018 STATUS: ADM IN FAX #: [phone] RAD NO:Page 1 Signed [id number] 06:40:00 Test Item Value Reference Range Interpretation Comments GLUBED (test code = GLUBED) 117 mg/dL 65-110 H [id number] 00:48:00 Test Item Value Reference Range Interpretation Comments GLUBED (test code = GLUBED) 153 mg/dL 65-110 H [id number] 18:32:00 Test Item Value Reference Range Interpretation Comments GLUBED (test code = GLUBED) 83 mg/dL 65-110 N [id number] 12:58:00 Test Item Value Reference Range Interpretation Comments GLUBED (test code = GLUBED) 153 mg/dL 65-110 H CHEMISTRY 7 [id number] 05:45:00 Test Item Value Reference Range Interpretation [...] CA) 8.1 mg/dL 8.4-10.2 L CBC W/AUTO [id number] 05:30:00 Test Item Value Reference Range Interpretation [...] REQUIRED (test NORMAL NORMAL code = PLTMR) [id number] 00:18:00 Test Item Value Reference Range Interpretation Comments GLUBED (test code = GLUBED) 107 mg/dL 65-110 N [id number] 18:27:00 Test Item Value Reference Range Interpretation Comments GLUBED (test code = GLUBED) 144 mg/dL 65-110 H [id number] 12:13:00 Test Item Value Reference Range Interpretation Comments GLUBED (test code = GLUBED) 126 mg/dL 65-110 H [id number] 08:47:00 Test Item Value Reference Range Interpretation Comments MAGNESIUM (test code = MAG) 1.8 mg/dL 1.8-2.4 N Comments to Wire Threader: DO ON BLOOD IN LAB-- DRAWN THIS AMSpecimen Comment: BLOOD IN LAB.CHEMISTRY 7 [id number] 05:19:00 Test Item Value Reference Range Interpretation [...] CA) 7.5 mg/dL 8.4-10.2 L CBC W/AUTO [id number] 05:06:00 Test Item Value Reference Range Interpretation [...] REQUIRED (test NORMAL NORMAL code = PLTMR) [id number] 00:47:00 Test Item Value Reference Range Interpretation Comments GLUBED (test code = GLUBED) 159 mg/dL 65-110 H [id number] 21:14:00 Test Item Value Reference Range Interpretation Comments C-PEPTIDE (test code 2.9 ng/mL 1.1-4.4 C-Pepti de reference = CPEP) interval is for fasting patients.Perfor med At: [facility] [address] [id number] Rosa MD Ph:[phone] [id number] 21:14:00 Test Item Value Reference Range Interpretation Comments INSULIN (test code = 22.1 uIU/mL 2.6-24.9 Perform ed At: INS) [facility] [address] [id number] Rosa MD Ph:[phone] [id number] 18:25:00 Test Item Value Reference Range Interpretation Comments GLUBED (test code = GLUBED) 134 mg/dL 65-110 H [id number] 12:38:00 Test Item Value Reference Range Interpretation Comments GLUBED (test code = GLUBED) 137 mg/dL 65-110 H COMPREHENSIVE METABOLIC [id number] 05:57:00 Test Item Value Reference Range Interpretation [...] 69 units/L 46-116 N code = ALKP) [id number] 05:57:00 Test Item Value Reference Range Interpretation Comments MAGNESIUM (test code = 1.0 mg/dL 1.8-2.4 L RESUL TS CALLED TO MAG) ZAC TURK D BACK & CONFIRMED? Y. BY F.LAB.T 12/18 0557. RESULTS VERIFIED BY REP EAT ANALYSIS CBC W/AUTO [id number] 05:13:00 Test Item Value Reference Range Interpretation [...] NORMAL NORMAL REQUIRED (test code = PLTMR) [id number] 00:21:00 Test Item Value Reference Range Interpretation Comments GLUBED (test code = GLUBED) 280 mg/dL 65-110 H CHEMISTRY 7 [id number] 23:10:00 Test Item Value Reference Range Interpretation [...] CA) 7.1 mg/dL 8.4-10.2 L CBC W/AUTO [id number] 18:05:00 Test Item Value Reference Range Interpretation Comments WHITE BLOOD CELL 28.6 K/mm3 6.6-12.1 HH RESULTS GILBERT IFIED BY (test code = WBC) REPEAT KEIRA LYSISRESULTS CALLED TO KARINA VILLALTA .READ BACK & CO NFIRMED? Y.BY F.LAB.RV 1 02/16/18 6050. RED BLOOD CELL (test 5.23 M/mm3 3.45-5.01 [...] NORMAL REQUIRED (test code = PLTMR) WBC [id number] 18:05:00 Test Item Value Reference Range Interpretation [...] code = NORMAL NORMAL PLTMORPH) CHEMISTRY 7 [id number] 17:48:00 Test Item Value Reference Range Interpretation [...] CA) 7.5 mg/dL 8.4-10.2 L CBC W/AUTO [id number] 17:32:00 Test Item Value Reference Range Interpretation Comments WHITE BLOOD CELL 28.6 K/mm3 6.6-12.1 HH RESULTS GILBERT IFIED BY (test code = WBC) REPEAT KEIRA LYSISRESULTS CALLED TO KARINA VILLALTA .READ BACK & CO NFIRMED? Y.BY F.LAB.RV 1 02/16/18 6280. RED BLOOD CELL (test 5.23 M/mm3 3.45-5.01 [...] NORMAL REQUIRED (test code = PLTMR) WBC [id number] 17:32:00 Test Item Value Reference Range Interpretation Comments SEGMENTED NEUTROPHILS (test code = SEG) % 56.5-79.4 LYMPHOCYTE (test code = LYMPH) % 20-40 CBC W/AUTO [id number] 17:32:00 Test Item Value Reference Range Interpretation [...] NORMAL REQUIRED (test code = PLTMR) WBC [id number] 17:32:00 Test Item Value Reference Range Interpretation Comments SEGMENTED NEUTROPHILS (test code = SEG) % 56.5-79.4 LYMPHOCYTE (test code = LYMPH) % 20-40 [id number] 14:59:00 Test Item Value Reference Range Interpretation Comments GLUBED (test code = GLUBED) 288 mg/dL 65-110 H [id number] 06:04:00 Test Item Value Reference Range Interpretation Comments GLUBED (test code = GLUBED) 201 mg/dL 65-110 H URINALYSIS [id number] 03:54:00 Test Item Value Reference Range Interpretation [...] SAMPLE: CLEAN CATCHComment URINE WITH CULTUREUR HCG [id number] 03:54:00 Test Item Value Reference Range Interpretation [...] URINE SAMPLE: CLEAN CATCHComment URINE WITH CULTUREURINALYSIS [id number] 03:38:00 Test Item Value Reference Range Interpretation [...] SAMPLE: CLEAN CATCHComment URINE WITH CULTUREUR HCG [id number] 03:38:00 Test Item Value Reference Range Interpretation [...] tested. URINE SAMPLE: CLEAN CATCHComment URINE WITH [id number] 22:09:00 Test Item Value Reference Range Interpretation Comments GLUBED (test code = 263 mg/dL 65-110 H Phsician Notified GLUBED) [id number] 17:08:00 Test Item Value Reference Range Interpretation Comments GLUBED (test code = GLUBED) 286 mg/dL 65-110 H [id number] 15:28:00 Test Item Value Reference Range Interpretation Comments CREATININE (test code = CREAT) 0.9 mg/dL 0.5-1.0 N IS THIS A ONCE DAILY SINGLE DOSE? YESDATE OF LAST DOSE: 12/16/18TIME OF LAST DOSE: [id number] 15:28:00 Test Item Value Reference Range Interpretation Comments GENTAMICIN (test code 0.8 mcg/mL 0-14 N Adult normal range = GENT) for once daily dose of Gentamicin m ay beup to 24 mcg/ mL. Gentamicin resu lts must be correla darshan withthe time th e dose was administere d. IS THIS A ONCE DAILY SINGLE DOSE? YESDATE OF LAST DOSE: 12/16/18TIME OF LAST DOSE: [id number] 13:24:00 Test Item Value Reference Range Interpretation Comments GLUBED (test code = GLUBED) 274 mg/dL 65-110 H HCG [id number] 12:13:00 Test Item Value Reference Range Interpretation [...] THE ROOM AT THIS TIME. PHLEB/RBCHEMISTRY 7 [id number] 12:11:00 Test Item Value Reference Range Interpretation [...] IN THE ROOM AT THIS TIME. @ 13268SJ TRY 1018 AM. PHLEB/RBCBC W/AUTO [id number] 11:40:00 Test Item Value Reference Range Interpretation [...] PLTMR) COME BACK LATER- CT ABD PELVIS [id number] 11:01:00 Patient Name: STACY THOMPSON Unit No: [id number] EXAMS: CPT CODE: [id number] CT ABD PELVIS W/CONT 82093 Exam: CT scan of the abdomen and pelvis. Exam date: December 16, 2018. Comparison: No images areavailable. These have been requested from outside facility. [...] were also submitted. The visualized portions of theheart and lungs are unremarkable. The liver demonstrates [...] demonstrates no significant abnormalities. IMPRESSION: [facility] NAME: STACY THOMPSON Radiology Department PHYS: Arpan Garcia MD [address] : 1990 AGE: 28 SEX: F [place], [place] [address] LOC: F.4672 A PHONE #: [phone] EXAM DATE: 12/16/2018 STATUS: ADM IN FAX #: [phone] RAD NO: Page 1 Signed Report 1 Patient Name: STACY THOMPSON Unit No: [id number] EXAMS: CPT CODE: [id number] CT ABD PELVIS W/CONT 43821 (Continued) Bilateral adnexal masses as described above. The patient gives a history of abscess drainage at [facility] October 05, 2018. She describes having drains and drainage bags on either side. The findings in the adnexal region may be sequela of this procedure. Prior images have been requested. at 1101 Reported and signed by: Charissa Arreola MD CC: Lianet Weir Technologist: Sarthak Coleman, RT, CT CTDI: 21.83 DLP: 1880.60 Trnscrbd D/ (1101) [facility] NAME: STACY THOMPSON Radiology Department PHYS: Arpan Wallace MD [address] : 1990 AGE: 28 SEX: F [place] [address] LOC: F.4672 A PHONE #: [phone] EXAM DATE: 12/16/2018 STATUS: ADM IN FAX #: [phone] RAD NO: Page 2 Signed Report 1 Patient Name: STACY THOMPSON Unit No: [id number] EXAMS: CPT CODE: [id number] CT ABD PELVIS W/CONT 42784 (Continued) OrigPrint D/T: S: 12/16/2018 (1104) [facility] NAME: STACY THOMPSON Radiology Department PHYS: Arpan Wallace MD [address] : 1990 AGE: 28 SEX: F [place] [address] LOC: F.4672 A PHONE #: [phone] EXAM DATE: 12/16/2018 STATUS: ADM IN FAX#: [phone] RAD NO: Page 3 Signed Report [id number] 07:07:00 Test Item Value Reference Range Interpretation Comments GLUBED (test code = GLUBED) 241 mg/dL 65-110 H CREATINE KINASE (CK)2018-12-15 19:52:00 Test Item Value Reference Range Interpretation Comments CREATINE KINASE (CK) (test code = 60 Units/L 26-192 N CK) [id number] 16:55:00 Test Item Value Reference Range Interpretation Comments GLUBED (test code = 339 mg/dL 65-110 H Phsician Notified GLUBED) GLYCOSYLATED HEMOGLOBIN [id number] 11:01:00 Test Item Value Reference Range Interpretation Comments GLYCOSYLATED 9.2 % 4.8-5.9 H Any condition t hat HEMOGLOBIN (HA1C) shortens e rythocyte (test code = survival or dec reasesmean GLYHGB) erythrocyte age (e.g., recovery from a cute blood loss,hemolytic anemia) will falsely lo wer HGBA1c resultsregardle ss of the method used. HG BA1c results from [facility] HbSS, HbCC, and HbSc must be interpreted with cautiongiven th e pathological pr ocesses, including anemia,increase d red cell turnover, trans fusion requirements, thatadversely i mpact HGBA1c as a mar ker of long-term glycemiccontrol . Alternative for ms of testing such as fructosaminesho uld be considered for these patients. MEAN BLOOD GLUCOSE 217 MG/DL 70-110 H (test code = MBG) COMPREHENSIVE METABOLIC [id number] 11:01:00 Test Item Value Reference Range Interpretation [...] units/L 46-116 N code = ALKP) T4 [id number] 11:01:00 Test Item Value Reference Range Interpretation Comments T4 FREE (test code = T4F) 1.24 ng/dL 0.76-1.46 N THYROID STIMULATING [id number] 11:01:00 Test Item Value Reference Range Interpretation [...] the method used . HGBA1c results from [facility] HbSS, HbCC, and HbSc must be interpreted with cautiongiven th e pathological pr ocesses, including anemi a,increased red cell turnov er, transfusion req uirements, thatadversely i mpact HGBA1c as a marker of long-term glycemiccontrol . Alternative for ms of testing such as fructosaminesho uld be considered for these patients. [id number] 10:19:00 Test Item Value Reference Range Interpretation Comments GLUBED (test code = 290 mg/dL 65-110 H Phsician Notified GLUBED) COMPREHENSIVE METABOLIC [id number] 07:23:00 Test Item Value Reference Range Interpretation [...] units/L 46-116 N code = ALKP) T4 [id number] 07:23:00 Test Item Value Reference Range Interpretation Comments T4 FREE (test code = T4F) 1.24 ng/dL 0.76-1.46 N THYROID STIMULATING [id number] 07:23:00 Test Item Value Reference Range Interpretation Comments THYROID STIMULATING 3.27 0.36-3.74 N Test Per formed in HORMONE (test code = MicroIn ternational Units/mL TSH) GLYCOSYLATED HEMOGLOBIN (HA1C)2018-12-15 07:23:00 Test Item Value Reference Range Interpretation Comments GLYCOSYLATED HEMOGLOBIN (HA1C) (test code = GLYHGB) [id number] 06:04:00 Test Item Value Reference Range Interpretation Comments GLUBED (test code = 308 mg/dL 65-110 H Phsician Notified GLUBED) COMPREHENSIVE METABOLIC [id number] 05:10:00 Test Item Value Reference Range Interpretation [...] 46-116 N code = ALKP) THYROID STIMULATING [id number] 05:10:00 Test Item Value Reference Range Interpretation Comments THYROID STIMULATING 3.27 0.36-3.74 N Test Per formed in HORMONE (test code = MicroIn ternational Units/mL TSH) GLYCOSYLATED HEMOGLOBIN (HA1C)2018-12-15 05:10:00 Test Item Value Reference Range Interpretation Comments GLYCOSYLATED HEMOGLOBIN (HA1C) (test code = GLYHGB) LACTIC [id number] 04:53:00 Test Item Value Reference Range Interpretation Comments LACTIC ACID (test code = LACT) 1.5 MMOL/L 0.5-2.2 N CBC W/AUTO [id number] 04:30:00 Test Item Value Reference Range Interpretation [...] code = PLTMR) - CT HEAD/BRAIN W/O [id number] 04:27:00 Patient Name: STACY THOMPSON Unit No: [id number] EXAMS: CPT CODE: [id number] CT HEAD/BRAIN W/O CONT 04751 EXAM: CT, CT HEAD/BRAIN W/O CONTRAST; 12/15/2018, 0402 hours HISTORY: HEADACHE COMPARISON: None available. TECHNIQUE: CT images were obtained from the foramen magnum to the vertex without the useof intravenous contrast on a multidetector CT. CT [...] or edema. There are no intra-axial or extra-axial fluid collections, intraventricular or intraparenchymal hemorrhage. No low attenuation demarcating areas on this non-contrast CT to suggest subacute stroke. VENTRICLES: The lateral ventricles, third andfourth ventricles appear unremarkable. The basilar cisterns are [...] or subacute stroke. SL: [facility] NAME: DONNA,STACY Radiology Department PHYS: Lianet Morrow MD [address] : 1990 AGE: 28 SEX: F [place] [address] LOC: F.4672 A PHONE #: [phone] EXAM DATE: 12/15/2018 STATUS: ADM IN FAX #: [phone] RAD NO: Page 1 Signed Report 1 Patient Name: STACY THOMPSON Unit No: [id number] EXAMS: CPT CODE: [id number] CT HEAD/BRAIN W/O CONT 28553 (Continued) at 0427 Reported and signed by: Paul Barreto M.D. CC: Lianet WeirTechnologist: JENNI MEDINA, RT CTDI: 53.12 DLP: 879.86 Trnscrbd D/ (0427) [email or web address] [facility] NAME: DONNASTACY Radiology Department PHYS: Lianet Morrow MD [address] : 1990 AGE: 28 SEX: F [place] [address] LOC: F.4672 A PHONE #: [phone] EXAM DATE: 12/15/2018 STATUS: ADM IN FAX #: [phone] RAD NO: Page 2 Signed Report 1 Patient Name: STACY THOMPSON Unit No: [id number] EXAMS: CPT CODE: [id number] CT HEAD/BRAIN W/O CONT 66916 (Continued) Orig Print D/T: S: 12/15/2018 (0430) [facility] NAME: STACY THOMPSON Radiology Department PHYS: Lianet Morrow MD [address] : 1990 AGE: 28 SEX: F [place] [address] LOC: F.4672 A PHONE #: [phone] EXAM DATE: 12/15/2018 STATUS: ADM IN FAX #: [phone] RAD NO: Page 3 Signed Report 1Aerobic Bacterial Culture Test Item Value Reference Range Interpretation Comments Aerobic Bacterial Culture (test Final report code = 634-6) SARS-COV 2 AntigenSARS-COV 2 Antigen Notes Date/Time Note Provider Source 2019-01-02 08:37:00-00:00 [id number] [facility] [address] [place], [place] [address] PATIENT NAME: STACY THOMPSON ADMIT DATE: 12/15 ACCOUNT NO: [id number] ROOM NO: [facility] AGE: 28 SEX: F ADMITTING PHYSICIAN: Arpan Min MD ATTENDING PHYSICIAN: Arpan Min MD OPERATION DATE: 12/15/2018 PREOPERATIVE DIAGNOSES: POSTOPERATIVE DIAGNOSES: SURGEON: Colorectal surgeon, Jan Kim MD. MANAGER MECHANICAL: Surgical esol teacher assistant, Herbert lopez MD. PROCEDURE: Open sigmoid colectomy with primary a nastomosis. ANESTHESIA: ESTIMATED BLOOD LOSS: Minimal. COMPLICATIONS: None. CONDITION: Stable. INDICATION: The patient was undergoing a gynecol ogic procedure under the care of Dr. Min. This involved the sigmoid colon wit h the sigmoid colon requiring resection following the gynecologic portions of the procedure. Intraoperative consult was performed. The sigmoid colon had bee n torn and devascularized requiring resection. This was unusually difficult surgery due to the patient's body habitus. We performed a sigmoid resection a nd we were able to perform a primary circular stapled anastomosis. The patien t did not require an ostomy. There was a bowel prep and there was exc ellent achieve of the anastomosis. She tolerated the procedure well. Dr. Dean wa s present and required as a surgical esol teacher assistant to accomplish this procedu re in a safe fashion. PROCEDURE IN DETAIL: The patient was in the oper ating room and under the care of Dr. Min. At this juncture, it was an open pr ocedure. We examined the area and determine resection and primary anastomosis was most appropriate. We introduced an extra-large Iban wound r etractor to protect the abdominal wall and exposed the tissue. We then dissected down d istal to the level of the rectosigmoid junction and divided it wit h firing of the stapling device. Next, we took down the mesentery a nd the lateral attachments to the proximal level of resection between the sigmoid and left c olon junction. Once this was achieved, we resected the sigmoid and sent to pathology. A nvil to the 29 stapler was introduced and secured in pl e[place] with the pursestring suture. Next, a colorectal anastomosis was achieved. We oversewed the anast omosis. Next, we checked for air insufflation and direct visualization was intact without complications. The PATIENT NAME: STACY THOMPSON [id number] patient was then closed in usual fashion. Needle , instrument and laparotomy count was performed and is c orrect. She was extubated and taken to the recovery room in good condition. Dictated By: Jan Kim MD WT: OP:CHASIDY/PATO/LATIA Conf#: [id number]/DID#: [id number] Authenticated by Jan Kim MD On 01/03/2019 0 2:06:27 PM Electronically Signed by Jan Kim MD on 12/11 06/27 at 1406 PATIENT NAME: STACY THOMPSON [id number] 2600-11-15 08:55:00-00:00 [facility] ([facility]) Critical Care Progress Note REPORT#:[id number] REPORT STATUS: Signed DATE:12/24/18 TIME: 854 PATIENT: STACY THOMPSON UNIT #: [id number] ROOM/BED: [facility] : [birth year] AGE: 28 SEX: F ATTEND: Chidi Min MD ADM AUTHOR: Kristofer Ellison MD * ALL edits or amendments must be made on the [employer]/computer document * Subjective Comments: no new co. feels good, stools formed. no naseas no vomti, almita po. Objective General VS/I O Last Documented: Result Date Time Pulse Ox 96 12/24 530 B/P 127/77 12/24 530 B/P Mean 93.7 12/24 530 O2 Delivery Room air 12/24 530 Temp 98.6 12/24 530 Pulse 76 12/24 530 Resp 18 12/24 530 O2 Flow Rate 2.730596 12/17 2049 24 hour I O ending at 0700: 12/24 0700 12/23 1900 Intake Total 400 Output Total 900 600 Balance -500 -600 Intake, Oral 400 Number 1 Bowel Movements Number Voids 4 Output, Urine 900 600 Physical Exam General appearance: alert, awake, oriented Head/Eyes: atraumatic, normocephalic, PERRL ENT: moist mucosal membranes Neck: full range of motion, non-tender, normal t hyroid, short thick Cardiovascular: normal heart sounds, normal S1 S 2, normal rate and rhythm, no murmur, no rub Respiratory/Chest: aerating well, clear to auscu ltation, symmetric expansion Abdomen: soft, non-tender, n ormal bowel sounds, no CVA tenderness, no distention , no guarding, no mass/organomegaly, no rebound, incsion cdi Extremities: moves all, normal capillary refill, normal temperature Neuro/BELT SANDER: alert, oriented X 3, CNII-XII intact Skin: normal color, normal temperature Psychiatry: normal affect, normal judgment/insig ht, normal mood Results Findings/Data: Laboratory Tests 12/24 12/23 0626 2314 Chemistry POC Glucose (65 - 110 mg/dL) 92 98 Microbiology: 12/21 2109 STOOL: Clostridioides difficile Toxin Assay - COMP--neg Diagnosis, Assessment Plan Hospital course to date: Assessment overall doing well. Tubo-ovarian abscess with diehl bsequent adhesions and postinflammatory changes etc. s/p hysterectomy, salpingo-oophorectomy, lysis o f adhesions, bowel resection Diabetes mellitus E. coli UTI Morbid obesity with BMI of 46 DVT risk Recommendations and plan po antibiotics Glucose control-Per endocrine DVT prophylaxis w lovenox dw dr min, agree w plan for dc. dw patient, rec endo follow up in her community. pvu. seen w rn Electronically Signed by Kristofer Ellison MD on at 0859 RPT #:[id number] END OF REPORT 2018-12-24 08:52:00-00:00 [facility] ([facility]) Discharge Summary REPORT#:[id number] REPORT STATUS: Signed DATE:12/24/18 TIME: 851 PATIENT: STACY THOMPSON UNIT #: [id number] ROOM/BED: [address] : 88 AGE: 28 SEX: F ATTEND: Chidi Min MD ADM AUTHOR: Arpan Min MD * ALL edits or amendments must be made on the [employer]/computer document * PCP PCP PCP: 28 yo multigavida; post appe ndectomy in April 2018, discovered = normal appendix , abscess of right adnexa fr om pelvis to the liver; antibiotics treatments times five and IR drain times two; had severe pain; fe gilbert; and continue with bilateral tubo ovarian abscess; transferrred fro [facility] to [facility] for definitive theraphy. MRI and sonograms d one suspecting gas dorming on her left side; general surgery, endocrine and inf ectious disease consultation obtained. Insuline scale and Daptomyci n IV and plan her surgery for last friv=ay December 17, 2018. LUQ laparoscopy + Exploratory Laparotomy; PRETTY + BSO and Sigmoid resection + anastomosis of lower sigmoid; discovering a fold ed sigmoid and pencil size obstruction and succesfulll anastomosis by Dr Jairo molina and associates. Pathology reported diverticulitis and pe ncil size obstruction; adenomyoisi and bilateral TOA Discharge to: home General Information Date of admission: Observation Start Date: Date of admission: 12/15/18 Date of discharge: 12/24/18 Admission diagnosis: MULTIPLE BOUT OF TOAs FIVE ADMISSIONS TWICE INTERVENTIONAL RADIOLOGIST DRAIN POSSIBLE FISTULA DUE TO AIR ON LEFT ADNEXA Discharge diagnosis: SAME DIVERTICULAR DISEASE AND SIGMOID PENCIL SIZE OBS TRUCTION Hospital course: ICU ost op and General Accounting Clerk care + Diabetes insul ine scale and rapid recovery with minimal sequelae; lower part of incison sep arated and to continue wound care. To see Water Plant Pump Operator Supervisor for ERT; Endocrinology diabtes contro l Associated exam: Preop MRI and TVS with flow Consultants: critical care/hand sample maker, endocrin ology, surgery ([facility] Rectal surgery) Pt. condition on discharge: improved, stable Allergies: Allergies: Penicillins (Coded, SWOLLEN LIPS,DIFFICULTY LOLA THING, 12/15/18) piperacillin (From ZOSYN) (C nicky, SWOLLEN LIPS AND DIIFICULTY BREATHING, ) tazobactam (From ZOSYN) (Cod ed, SWOLLEN LIPS AND DIIFICULTY BREATHING, 12/15/18) Med Rec PCP PCP: PCP: Lianet Weir MD Med Rec Discharge meds: Start taking the following new medications: CLINDAMYCIN HCL (CLEOCIN) 300 MG CAP 300 MILLIGRAM ORAL THREE TIMES A DAY. Qty = 30 No Refills IBUPROFEN (MOTRIN) 800 MG TAB 800 MILLIGRAM ORAL EVERY 8 HR NEEDED. as nee ded for MILD PAIN (1-3) Qty = 30 No Refills Objective VS/I O Last Documented: Result Date Time Pulse Ox 96 12/24 530 B/P 127/77 12/24 530 B/P Mean 93.7 12/24 530 O2 Delivery Room air 12/24 530 Temp 98.6 12/24 530 Pulse 76 12/24 530 Resp 18 12/24 530 O2 Flow Rate 2.164566 12/17 2049 24 hour I O ending at 0700: 12/24 0700 12/23 1900 Intake Total 400 Output Total 900 600 Balance -500 -600 Intake, Oral 400 Number 1 Bowel Movements Number Voids 4 Output, Urine 900 600 Patient Weight Weight (lb): 259 Weight (oz): 15.86 Weight (kg): 117.930 General appearance: alert, awake, oriented Results Findings/Data: Laboratory Tests: 12/24 12/23 0626 2314 Chemistry POC Glucose (65 - 110 mg/dL) 92 98 Results: no new labs Free Text Obj Notes Free Text Obj Notes: To be follow by Endocrinolog y; labor relations specialist; [facility] rectal = diverticultis and Water Plant Pump Operator Supervisor = ERT Discharge Instructions Diet: 5 1600 calories Activity: as tolerated, non-weight bearing, left , no lifting, non-strenuous Wound/dressing care: Clean wound daily, Leave st lauren strips, OK to shower tomorrow Notify provider of these s/s: Encourage walking activity for exercise Electronically Signed by Arpan Min MD on at 0912 RPT #:[id number] END OF REPORT 2018-12-23 11:18:00-00:00 [facility] ([facility]) Gynecology Post Prog Note REPORT#:[id number] REPORT STATUS: Signed DATE:12/23/18 TIME: 1118 PATIENT: STACY THOMPSON UNIT #: [id number] ROOM/BED: [address] : 88 AGE: 28 SEX: F ATTEND: Chidi Min MD ADM AUTHOR: Arpan Min MD * ALL edits or amendments must be made on the [employer]/computer document * General Post-op: day 6 Status post: PRETTY+BSO ENTEROLYSIS ADHESIOLYSIS COLON RESECTION ANSTOMOSIS Antibiotics: day 10 Subjective Patient reports: Yes: nausea (no diarrhea and + flatus). Objective Physical Exam VS/I O Last Documented: Result Date Time Pulse Ox 96 12/23 08 B/P 119/75 12/23 08 B/P Mean 89.8 12/23 809 O2 Delivery Room air 12/23 809 Temp 98.6 12/23 809 Pulse 74 12/23 0810 Resp 18 12/23 0810 O2 Flow Rate 2.124934 12/17 2050 24 hour I O ending at 0700: 12/23 0700 12/22 1900 Intake Total 340.00 400.00 Output Total 1500 680 Balance -1160.00 -280.00 Intake, IV 100.00 400.00 Intake, Oral 240 Number Voids 2 Output, Urine 1500 680 Patient Weight Weight (lb): 259 Weight (oz): 15.86 Weight (kg): 117.930 General appearance: alert, awake, oriented Wound/incision: Location: midline umbilical dry and clean abdomen soft and not distended Dressing change and sterile strips exchanged wit h benzoine; no infection. no seroma and heaing well Site condition: dressing clean dry, dressing in tact Cardiovascular: normal heart sounds Respiratory: aerating well, clear to auscultatio n, symmetric expansion, no distress Abdomen: normal bowel sounds , non-tender, soft, no CVA tenderness, no distention Extremities: full range of motion, moves all Current Medications Medications: Active Meds + DC'd Last 24 Hrs Nitrofurantoin Macrocrystals 100 MG BID PO Metronidazole/Sodium Chloride 100 ML QID IV Magnesium Oxide 400 MG TID PO (CKD) Simethicone 80 MG Q6HR PO Dextran 2 ML ASDIR EACH EYE (CKD) Enoxaparin Sodium 40 MG Q12H SUBQ Phenol 2 SPRAYS Q1H PRN PRN MM (CKD) Promethazine HCl 25 MG Q6H PRN PRN IM Ondansetron HCl 4 MG Q6H PRN PRN IV Acetaminophen 1,000 MG Q8H PO Ibuprofen 800 MG Q8H PRN PRN PO Metoclopramide HCl 10 MG Q8H PO Tramadol HCl 50 MG Q6H PO Glucagon 1 MG ASDIR IM (CKD) Insulin Glargine 50 UNIT DAILY@0700 SUBQ Insulin Human Lispro S/SCALE IF B-199 = 10 UNITS 200-250 = 15 UNITS 251-300 = 20 UNITS 301 OR >301 25 UNITS ASDIR SUBQ Daptomycin 500 MG Q24H IV Sodium Chloride 100 ML Gentamicin Sulfate 400 MG Q24H IV (DC) Sodium Chloride 100 ML Magnesium Hydroxide 30 ML Q8H PRN PRN PO Results Findings/Data: Laboratory Tests 12/23 12/22 12/22 12/22 0625 2239 1840 1312 Chemistry POC Glucose (65 - 110 mg/dL) 94 112 H 76 80 Results: no new labs Treatment Prophylaxis Treatment Prophylaxis Jimenez status: discontinued Urinary cath documentation: no problems voiding and no longer diarrhea Electronically Signed by Arpan Min MD on at 1123 [facility] #:[id number] END OF REPORT 2018-12-23 10:07:00-00:00 [facility] ([facility]) Critical Care Progress Note REPORT#:[id number] REPORT STATUS: Signed DATE:12/23/18 TIME: 1007 PATIENT: STACY THOMPSON UNIT #: [id number] ROOM/BED: [address] : 88 AGE: 28 SEX: F ATTEND: Chidi Min MD ADM AUTHOR: Kristofer Ellison MD * ALL edits or amendments must be made on the [employer] document * Subjective Comments: no co. n is less. no vomit. +bm yest. min pain w hen walks Objective General VS/I O Last Documented: Result Date Time Pulse Ox 96 12/23 809 B/P 119/75 12/23 0810 B/P Mean 89.8 12/23 08 O2 Delivery Room air 12/23 08 Temp 98.6 12/23 08 Pulse 74 12/23 0810 Resp 18 12/23 0810 O2 Flow Rate 2.858061 12/17 2049 24 hour I O ending at 0700: 12/23 0700 12/22 1900 Intake Total 340.00 400.00 Output Total 1500 680 Balance -1160.00 -280.00 Intake, IV 100.00 400.00 Intake, Oral 240 Number Voids 2 Output, Urine 1500 680 Physical Exam General appearance: alert, awake, oriented Head/Eyes: atraumatic, normocephalic, PERRL ENT: moist mucosal membranes Cardiovascular: normal heart sounds, normal S1 S 2, normal rate and rhythm, no murmur, no rub Respiratory/Chest: aerating well, clear to auscu ltation, symmetric expansion Abdomen: soft, non-tender, n ormal bowel sounds, no CVA tenderness, no distention , no guarding, no mass/organomegaly, no rebound, incsion cdi Extremities: moves all, normal capillary refill, normal temperature Neuro/BELT SANDER: alert, oriented X 3, CNII-XII intact Results Findings/Data: Laboratory Tests 12/23 12/22 12/22 12/22 0625 2239 1840 1312 Chemistry POC Glucose (65 - 110 mg/dL) 94 112 H 76 80 Microbiology: 12/21 2109 STOOL: Clostridioides difficile Toxin Assay - COMP 12/21 1539 DRAINAGE: Body Fluid Culture - COMP ESCHERICHIA COLI YEAST SPECIES 12/21 1539 DRAINAGE: Gram Stain - COMP Diagnosis, Assessment Plan Hospital course to date: Assessment Tubo-ovarian abscess with diehl bsequent adhesions and postinflammatory changes etc. s/p hysterectomy, salpingo-oophorectomy, lysis o f adhesions, bowel resection Diabetes mellitus w with hyperglycemia E. coli UTI Morbid obesity with BMI of 46 post op nausea DVT risk hypokalemia Recommendations and plan ambulate anti emetic,monitor diet Continue antibiotics Glucose control-Per endocrine DVT prophylaxis w lovenox seen w rn Electronically Signed by Kristofer Ellison MD on at 1008 RPT #:[id number] END OF REPORT 2018-12-22 22:46:00-00:00 [facility] ([facility]) Gynecology Post Prog Note REPORT#:[id number] REPORT STATUS: Signed DATE:12/22/18 TIME: 2245 PATIENT: STACY THOMPSON UNIT #: [id number] ROOM/BED: [address] : 88 AGE: 28 SEX: F ATTEND: Chidi Min MD ADM AUTHOR: Arpan Min MD * ALL edits or amendments must be made on the [employer]/computer document * General Post-op: day 5 Status post: PRETTY+BSO ENTEROLYSIS ADHESIOLYSIS COLON RESECTION ANSTOMOSIS Antibiotics: day 9 (change to Flagyl NO diarrhea ) Subjective Patient reports: No: complaints (No diarrhea; lossed easy bms). Review of Systems Free Text ROS Notes Free Text ROS Notes: will ask to dc IV antibiotics and start on PO me ds recommended by ID Dr Lucia Moreau Objective Physical Exam VS/I O Last Documented: Result Date Time Pulse Ox 98 12/23 2023 B/P 127/76 12/23 2023 B/P Mean 93.2 12/23 2023 Temp 98.6 12/23 2023 Pulse 80 12/23 2023 Resp 17 12/23 2023 O2 Delivery Room air 12/22 0503 O2 Flow Rate 2.179355 12/17 2049 24 hour I O ending at 0700: 12/22 0700 12/21 1900 Intake Total 1550.00 750.00 Output Total 500 340 Balance 1050.00 410.00 Intake, IV 1250.00 750.00 Intake, Oral 300 Number 1 Bowel Movements Number Voids 1 Output, 40 Drainage Output, Urine 500 300 Patient Weight Weight (lb): 259 Weight (oz): 15.86 Weight (kg): 117.930 Abdomen: normal bowel sounds , non-tender, soft, no CVA tenderness, no distention Current Medications Medications: Active Meds + DC'd Last 24 Hrs Nitrofurantoin Macrocrystals 100 MG BID PO Metronidazole/Sodium Chloride 100 ML QID IV Magnesium Oxide 400 MG TID PO (CKD) Simethicone 80 MG Q6HR PO Dextran 2 ML ASDIR EACH EYE (CKD) Dextrose/Sodium Chloride 1,000 ML ASDIR IV (DC) Enoxaparin Sodium 40 MG Q12H SUBQ Phenol 2 SPRAYS Q1H PRN PRN MM (CKD) Promethazine HCl 25 MG Q6H PRN PRN IM Ondansetron HCl 4 MG Q6H PRN PRN IV Acetaminophen 1,000 MG Q8H PO Ibuprofen 800 MG Q8H PRN PRN PO Metoclopramide HCl 10 MG Q8H PO Tramadol HCl 50 MG Q6H PO Glucagon 1 MG ASDIR IM (CKD) Insulin Glargine 50 UNIT DAILY@0700 SUBQ Insulin Human Lispro S/SCALE IF B-199 = 10 UNITS 200-250 = 15 UNITS 251-300 = 20 UNITS 301 OR >301 25 UNITS ASDIR SUBQ Daptomycin 500 MG Q24H IV Sodium Chloride 100 ML Gentamicin Sulfate 400 MG Q24H IV (DC) Sodium Chloride 100 ML Lactated Ringer's 1,000 ML ASDIR IV (DC) Magnesium Hydroxide 30 ML Q8H PRN PRN PO Results Findings/Data: Laboratory Tests 12/22 12/22 12/22 1840 1312 0728 Chemistry POC Glucose (65 - 110 mg/dL) 76 80 86 Results: no new labs Treatment Prophylaxis Treatment Prophylaxis Other: Plan to dismissed by the weekend Electronically Signed by Arpan Min MD on at 2250 RPT #:[id number] END OF REPORT 2018-12-22 08:54:00-00:00 [facility] ([facility]) Critical Care Progress Note REPORT#:[id number] REPORT STATUS: Signed DATE:12/22/18 TIME: 0854 PATIENT: STACY THOMPSON UNIT #: [id number] ROOM/BED: [address] : 88 AGE: 28 SEX: F ATTEND: Chidi Min MD ADM AUTHOR: Kristofer Ellison MD * ALL edits or amendments must be made on the el [employer]/computer document * Subjective Comments: still having nasuea, no vomit in 24. but with lo ose stool, was sent for cdif Objective General VS/I O Last Documented: Result Date Time Pulse Ox 96 12/22 724 B/P 121/76 12/22 07 B/P Mean 90.8 12/22 724 Temp 97.9 12/22 07 Pulse 77 12/22 07 Resp 18 12/22 07 O2 Delivery Room air 12/22 0503 O2 Flow Rate 2.837783 12/17 2049 24 hour I O ending at 0700: 12/22 0700 12/21 1900 Intake Total 1550.00 750.00 Output Total 500 340 Balance 1050.00 410.00 Intake, IV 1250.00 750.00 Intake, Oral 300 Number 1 Bowel Movements Number Voids 1 Output, 40 Drainage Output, Urine 500 300 Medications: Active Meds + DC'd Last 24 Hrs Metronidazole/Sodium Chloride 100 ML QID IV Nitrofurantoin Macrocrystals 100 MG Q12H PO (DC) Magnesium Oxide 400 MG TID PO (CKD) Simethicone 80 MG Q6HR PO Dextran 2 ML ASDIR EACH EYE (CKD) Dextrose/Sodium Chloride 1,000 ML ASDIR IV (DC) Enoxaparin Sodium 40 MG Q12H SUBQ Phenol 2 SPRAYS Q1H PRN PRN MM (CKD) Promethazine HCl 25 MG Q6H PRN PRN IM Ondansetron HCl 4 MG Q6H PRN PRN IV Acetaminophen 1,000 MG Q8H PO Ibuprofen 800 MG Q8H PRN PRN PO Metoclopramide HCl 10 MG Q8H PO Tramadol HCl 50 MG Q6H PO Glucagon 1 MG ASDIR IM (CKD) Insulin Glargine 50 UNIT DAILY@0700 SUBQ Insulin Human Lispro S/SCALE IF B-199 = 10 UNITS 200-250 = 15 UNITS 251-300 = 20 UNITS 301 OR >301 25 UNITS ASDIR SUBQ Daptomycin 500 MG Q24H IV Sodium Chloride 100 ML Clindamycin Phosphate 50 ML Q8H IV (DC) Gentamicin Sulfate 400 MG Q24H IV Sodium Chloride 100 ML Lactated Ringer's 1,000 ML ASDIR IV (DC) Magnesium Hydroxide 30 ML Q8H PRN PRN PO Physical Exam General appearance: obese, alert, awake, oriente d Head/Eyes: atraumatic, normocephalic, PERRL ENT: moist mucosal membranes Neck: full range of motion, non-tender, normal t hyroid, short thick Cardiovascular: normal heart sounds, normal S1 S 2, normal rate and rhythm, no murmur, no rub Respiratory/Chest: aerating well, clear to auscu ltation, symmetric expansion Abdomen: soft, non-tender, n ormal bowel sounds, no CVA tenderness, no distention , no guarding, no mass/organomegaly, no rebound, incsion cdi Extremities: moves all, normal capillary refill, normal temperature Neuro/BELT SANDER: alert, oriented X 3, CNII-XII intact Skin: normal color, normal temperature Psychiatry: normal affect, normal judgment/insig ht, normal mood Results Findings/Data: Laboratory Tests 12/21/18 1230: [Embedded Image Not Available] Laboratory Tests 12/22 12/21 12/21 12/21 12/21 0728 2125 1825 1258 1230 Chemistry Sodium (135 - 145 mEq/L) 139 Potassium (3.5 - 5.0 mEq/L) 3.6 Chloride (100 - 115 mEq/L) 103 Carbon Dioxide (22 - 31 mEq/L) 29 Anion Gap (10 - 20) 10.30 BUN (7 - 18 mg/dL) 2 L Creatinine (0.5 - 1.0 mg/dL) 0.7 Glomerular Filtr Rate (>60 ml/min) 98 Glucose (65 - 110 mg/dL) 91 POC Glucose (65 - 110 mg/dL) 86 111 H 103 89 Calcium (8.4 - 10.2 mg/dL) 8.5 Laboratory Tests 12/21 1230 Hematology WBC (6.6 - 12.1 K/mm3) 9.2 RBC (3.45 - 5.01 M/mm3) 3.63 Hgb (10.7 - 13.9 g/dL) 9.8 L Hct (32.1 - 42.1 %) 31.0 L MCV (84.1 - 94.8 fL) 85 MCH (27 - 35 pg) 27.0 MCHC (32.2 - 34.1 gm/dL) 31.6 L RDW (12.4 - 16.5 %) 14.8 Plt Count (133 - 385 K/mm3) 333 MPV (9.1 - 12.7 fl) 10.4 Neut % (Auto) (56.5 - 79.4 %) 70.7 Lymph % (Auto) (14.3 - 34.3 %) 18.9 Lassen % (Auto) (5.1 - 10.4 %) 7.9 Eos % (Auto) (0.1 - 3.0 %) 1.8 Baso % (Auto) (0.1 - 1.0 %) 0.3 Neut # (Auto) (K/mm3) 6.5 Lymph # (Auto) (K/mm3) 1.7 Lassen # (Auto) (K/mm3) 0.7 Eos # (Auto) (K/mm3) 0.17 Baso # (Auto) (K/mm3) 0.0 Immature Plt Fraction (0.0 - 10.8 %) 0.0 Microbiology: 12/21 2109 STOOL: Clostridioides difficile Toxin Assay - RECD 12/21 1539 DRAINAGE: Body Fluid Culture - RES GRAM NEGATIVE JOSEP 12/21 1539 DRAINAGE: Gram Stain - RES Diagnosis, Assessment Plan Hospital course to date: Assessment Tubo-ovarian abscess with diehl bsequent adhesions and postinflammatory changes etc. s/p hysterectomy, salpingo-oophorectomy, lysis o f adhesions, bowel resection Diabetes mellitus w with hyperglycemia E. coli UTI Morbid obesity with BMI of 46 post op nausea DVT risk hypokalemia Recommendations and plan ambulate anti emetic,monitor diet Continue antibiotics Follow cultures for ID and sensitivity- id dr jairo morales following Glucose control-Per endocrine DVT prophylaxis w lovenox seen w rn Electronically Signed by Kristofer Ellison MD on at 0857 [facility] #:[id number] END OF REPORT 2018-12-21 11:19:00-00:00 [facility] ([facility]) Gynecology Post Prog Note REPORT#:[id number] REPORT STATUS: Signed DATE:12/21/18 TIME: 111 PATIENT: STACY THOMPSON UNIT #: [id number] ROOM/BED: [address] : 88 AGE: 28 SEX: F ATTEND: Chidi Min MD ADM AUTHOR: Arpan Min MD * ALL edits or amendments must be made on the [employer]/computer document * General Post-op: day 4 Status post: PRETTY+BSO ENTEROLYSIS ADHESIOLYSIS COLON RESECTION ANSTOMOSIS Antibiotics: day 8 Subjective Patient reports: Yes: nausea, pain controlled, tolerating diet, voiding/urinating (Melicot came out; diarrhea). Comments: 28 yo post op Exploratory Laparotomy PRETTY and BSO with Sigmoid colon resection and anastomosis; her Melicot drain came out and had vomiiting + diarrhea with incision opening superficial with no drainage or hematoma last night. This mourning no nausea and no vomiting and incision dressing reinforced with sterile strips; may need re exploration and wash . Dr Lucia Moreau ntified of diar brent and will dc Clyndamicin; add Flagyl and cutures for C deficile. Diet to be advance t soft diet 1500 calories and dietitian consult Objective Physical Exam VS/I O Last Documented: Result Date Time Pulse Ox 98 12/22 719 B/P 104/67 12/22 719 B/P Mean 79.2 12/22 719 Temp 98.2 12/22 719 Pulse 72 12/22 719 Resp 18 12/22 719 O2 Delivery Room air 12/21 0322 O2 Flow Rate 2.713104 12/17 2049 24 hour I O ending at 0700: 12/21 0700 12/20 1900 Intake Total 1575.00 4680.00 Output Total 970 2180 Balance 605.00 2500.00 Intake, IV 1575.00 3240.00 Intake, Oral 1440 Number Voids 3 Output, 20 30 Drainage Output, Urine 950 2150 Patient Weight Weight (lb): 259 Weight (oz): 15.86 Weight (kg): 117.930 HEENT: anicteric, moist mucosal membranes, livia l pharynx, pupils reactive to light, sclera clear Cardiovascular: normal heart sounds Respiratory: aerating well, clear to auscultatio n, symmetric expansion, no distress Abdomen: normal bowel sounds , non-tender, soft, no CVA tenderness, no distention Extremities: moves all Skin: dry, intact, normal color Current Medications Medications: Active Meds + DC'd Last 24 Hrs Nitrofurantoin Macrocrystals 100 MG Q12H PO Potassium Chloride 20 MEQ ONCE ONE PO (DC) Magnesium Oxide 400 MG TID PO (CKD) Simethicone 80 MG Q6HR PO Dextran 2 ML ASDIR EACH EYE (CKD) Undefined Medication 100 ML ONCE ONE IV (DC) Acetaminophen 1,000 MG Q8H PRN PRN IV (DC) Dextrose/Sodium Chloride 1,000 ML ASDIR IV Enoxaparin Sodium 40 MG Q12H SUBQ Phenol 2 SPRAYS Q1H PRN PRN MM (CKD) Promethazine HCl 25 MG Q6H PRN PRN IM Ondansetron HCl 4 MG Q6H PRN PRN IV Acetaminophen 1,000 MG Q8H PO Ibuprofen 800 MG Q8H PRN PRN PO Metoclopramide HCl 10 MG Q8H PO Tramadol HCl 50 MG Q6H PO Glucagon 1 MG ASDIR IM (CKD) Insulin Glargine 50 UNIT DAILY@0700 SUBQ Insulin Human Lispro S/SCALE IF B-199 = 10 UNITS 200-250 = 15 UNITS 251-300 = 20 UNITS 301 OR >301 25 UNITS ASDIR SUBQ Daptomycin 500 MG Q24H IV Sodium Chloride 100 ML Diatrizoate Meglum/Diatrizoate Sod 40 ML ONCE NH N PO (DC) Clindamycin Phosphate 50 ML Q8H IV Gentamicin Sulfate 400 MG Q24H IV Sodium Chloride 100 ML Lactated Ringer's 1,000 ML ASDIR IV Magnesium Hydroxide 30 ML Q8H PRN PRN PO Results Findings/Data: Laboratory Tests 12/21 12/21 12/20 12/20 0622 0036 1820 1246 Chemistry POC Glucose (65 - 110 mg/dL) 117 H 153 H 83 15 3 H Radiology data: Recent Impressions: RADIOLOGY - XR ABDOMEN 2V 12/21 1000 Report Impression - Status: SIGNED Entered: 12/21/2018 1029 IMPRESSION: Nonspecific bowel gas pattern. Impression By: [email or web address] - Hamilton García MD Results: no new labs Treatment Prophylaxis Treatment Prophylaxis Jimenez status: none Urinary cath documentation: Plan ID changes on antibiotitcs Dietitian consult soft diet 1500 calories may need to re explored incision and lavage yesterday before Melicot came out Gram stain an d culture done Electronically Signed by Arpan Min MD on at 1131 RPT #:[id number] END OF REPORT 2018-12-21 08:55:00-00:00 [facility] ([facility]) Critical Care Progress Note REPORT#:[id number] REPORT STATUS: Signed DATE:12/21/18 TIME: 854 PATIENT: STACY THOMPSON UNIT #: [id number] ROOM/BED: [address] : 88 AGE: 28 SEX: F ATTEND: Chidi Min MD ADM AUTHOR: Kristofer Ellison MD * ALL edits or amendments must be made on the [employer]/computer document * Subjective Comments: had nausea and vomiting overnight. having bm loo se stool.s pain is controlled. Objective General VS/I O Last Documented: Result Date Time Pulse Ox 98 12/22 719 B/P 104/67 12/22 719 B/P Mean 79.2 12/22 719 Temp 98.2 12/22 719 Pulse 72 12/22 719 Resp 18 12/22 719 O2 Delivery Room air 12/21 0322 O2 Flow Rate 2.114663 12/17 2049 24 hour I O ending at 0700: 12/21 0700 12/20 1900 Intake Total 1575.00 4680.00 Output Total 970 2180 Balance 605.00 2500.00 Intake, IV 1575.00 3240.00 Intake, Oral 1440 Number Voids 3 Output, 20 30 Drainage Output, Urine 950 2150 Medications: Active Meds + DC'd Last 24 Hrs Nitrofurantoin Macrocrystals 100 MG Q12H PO Potassium Chloride 20 MEQ ONCE ONE PO (DC) Magnesium Oxide 400 MG TID PO (CKD) Simethicone 80 MG Q6HR PO Dextran 2 ML ASDIR EACH EYE (CKD) Undefined Medication 100 ML ONCE ONE IV (DC) Acetaminophen 1,000 MG Q8H PRN PRN IV (DC) Dextrose/Sodium Chloride 1,000 ML ASDIR IV Enoxaparin Sodium 40 MG Q12H SUBQ Phenol 2 SPRAYS Q1H PRN PRN MM (CKD) Promethazine HCl 25 MG Q6H PRN PRN IM Ondansetron HCl 4 MG Q6H PRN PRN IV Acetaminophen 1,000 MG Q8H PO Ibuprofen 800 MG Q8H PRN PRN PO Metoclopramide HCl 10 MG Q8H PO Tramadol HCl 50 MG Q6H PO Glucagon 1 MG ASDIR IM (CKD) Insulin Glargine 50 UNIT DAILY@0700 SUBQ Insulin Human Lispro S/SCALE IF B-199 = 10 UNITS 200-250 = 15 UNITS 251-300 = 20 UNITS 301 OR >301 25 UNITS ASDIR SUBQ Daptomycin 500 MG Q24H IV Sodium Chloride 100 ML Diatrizoate Meglum/Diatrizoate Sod 40 ML ONCE NH N PO (DC) Clindamycin Phosphate 50 ML Q8H IV Gentamicin Sulfate 400 MG Q24H IV Sodium Chloride 100 ML Lactated Ringer's 1,000 ML ASDIR IV Magnesium Hydroxide 30 ML Q8H PRN PRN PO Physical Exam Head/Eyes: atraumatic, normocephalic, PERRL ENT: moist mucosal membranes Neck: full range of motion, non-tender, normal t hyroid, short thick Cardiovascular: tachycardia, normal heart sounds , normal S1 S2, no murmur, no rub Respiratory/Chest: aerating well, clear to auscu ltation, symmetric expansion Abdomen: tenderness (approp post op near wound s ite), soft, no distention, no guarding, no mass/organomegaly, no rebound, incs ion cdi Extremities: moves all, normal capillary refill, normal temperature Neuro/BELT SANDER: alert, oriented X 3, CNII-XII intact Skin: normal color, normal temperature Diagnosis, Assessment Plan Hospital course to date: Assessment Tubo-ovarian abscess with diehl bsequent adhesions and postinflammatory changes etc. s/p hysterectomy, salpingo-oophorectomy, lysis o f adhesions, bowel resection Diabetes mellitus w with hyperglycemia E. coli UTI Morbid obesity with BMI of 46 post op nausea DVT risk hypokalemia Recommendations and plan ambulate anti emetic, may need to slow diet Continue antibiotics Follow urine cultures for ID and sensitivity- id dr moreau following Glucose control-Per endocrine DVT prophylaxis w lovenox Electronically Signed by Kristofer Ellison MD on 01/27 at 0856 RPT #:[id number] END OF REPORT 2018-12-21 07:20:00-00:00 [facility] ([facility]) General Surgery Progress Note REPORT#:[id number] REPORT STATUS: Signed DATE:12/21/18 TIME: 719 PATIENT: STACY THOMPSON UNIT #: [id number] ROOM/BED: [address] : 86 AGE: 28 SEX: F ATTEND: Chidi Min MD ADM AUTHOR: Osman Farias MD * ALL edits or amendments must be made on the [employer]/computer document * General Date of surgery: 12/17/18 Status post: PRETTY-BSO, Enterolysis, Partial sigmoid resection w/ 1' anastomosis Subjective Comments: Patient came out of ICU yesterday. Repor ts some nausea and emesis. Per patient and nursing, lower part of i ncision opened slightly. Covered with steri strips. Reports she is continuing to pass flatus and gill ving small liquid bowel movements with voids. Denies bloating. Objective Physical Exam VS/I O Last Documented: Result Date Time Pulse Ox 98 12/22 719 B/P 104/67 12/22 719 B/P Mean 79.2 12/22 719 Temp 98.2 12/22 719 Pulse 72 12/22 719 Resp 18 12/22 719 O2 Delivery Room air 12/21 321 O2 Flow Rate 2.477740 11/08 2050 Vital Signs Date Temp Pulse Resp B/P B/P Mean Pulse Ox FiO2 12/20-12/21 98.1-98.8 72-82 16-19 98-125/52-81 73-96 95-100 24 hour I O ending at 0700: 12/21 0700 12/20 1900 Intake Total 1575.00 4680.00 Output Total 2180 Balance 1575.00 2500.00 Intake, IV 1575.00 3240.00 Intake, Oral 1440 Number Voids 3 Output, 30 Drainage Output, Urine 2150 Patient Weight Weight (lb): 259 Weight (oz): 15.86 Weight (kg): 117.930 General appearance: alert, awake, oriented, no a cute distress Abdomen: Soft, ND, ATTP, abdominal binder in elver ce Diagnosis, Assessment Plan Free Text A P: Ms Thompson is a 28 year-old f emale now POD #4 from Laparoscopic converted to open PRETTY-BSO, Marisol, and partial sigmoid resection with primary anastomosis. Patient now starting to have some return of bowel functi on. - ADAT soft if nausea improves - Pain control - Rest of care per Dr. Min at 0722 RPT #:[id number] END OF REPORT 2018-12-20 10:21:00-00:00 [facility] ([facility]) Gynecology Post Prog Note REPORT#:[id number] REPORT STATUS: Signed DATE:12/20/18 TIME: 1021 PATIENT: STACY THOMPSON UNIT #: [id number] ROOM/BED: [facility]- : 88 AGE: 28 SEX: F ATTEND: Chidi Min MD ADM AUTHOR: Arpan Min MD * ALL edits or amendments must be made on the [employer]/computer document * General Post-op: day 3 Status post: PRETTY+BSO ENTEROLYSIS ADHESIOLYSIS COLON RESECTION ANSTOMOSIS Antibiotics: day 8 Subjective Patient reports: No: complaints (flatus snf no bm). Comments: Has no pain; anxious to have her own room and sh owerl flatus small and will advance to full iquid diet. On potassium replace ment. Jimenez to be discontinue. Continue IV antibiotics and add mac robid for UTI Objective Physical Exam VS/I O Last Documented: Result Date Time Pulse Ox 95 12/21 399 B/P 109/63 12/21 399 B/P Mean 81 12/21 399 Temp 98.1 12/21 399 Pulse 79 12/21 399 Resp 14 12/21 399 O2 Delivery Nasal cannula 12/17 2049 O2 Flow Rate 2.108890 12/17 2049 24 hour I O ending at 0700: 12/20 1900 Intake Total 2030.00 Output Total 1875 Balance 155.00 Intake, IV 1590.00 Intake, Oral 440 Output, Urine 1875 Patient Weight Weight (lb): 259 Weight (oz): 15.86 Weight (kg): 117.930 Wound/incision: Location: midline umbilical dry and clean abdomen soft and not distended Site condition: dressing clean dry, dressing in tact HEENT: anicteric, moist mucosal membranes, livia l pharynx, pupils reactive to light, sclera clear Neck: non-tender Cardiovascular: normal heart sounds Respiratory: aerating well, clear to auscultatio n, symmetric expansion, no distress Abdomen: non-tender, soft, no CVA tenderness, no distention Extremities: moves all Current Medications Medications: Active Meds + DC'd Last 24 Hrs Potassium Chloride 20 MEQ ONCE ONE PO (DC) Potassium Chloride 20 MEQ NOW ONE PO (DC) Magnesium Oxide 400 MG TID PO (CKD) Simethicone 80 MG Q6HR PO Dextran 2 ML ASDIR EACH EYE (CKD) Undefined Medication 100 ML ONCE ONE IV Acetaminophen 1,000 MG Q8H PRN PRN IV Dextrose/Sodium Chloride 1,000 ML ASDIR IV Enoxaparin Sodium 40 MG Q12H SUBQ Phenol 2 SPRAYS Q1H PRN PRN MM (CKD) Promethazine HCl 25 MG Q6H PRN PRN IM Ondansetron HCl 4 MG Q6H PRN PRN IV Acetaminophen 1,000 MG Q8H PO Ibuprofen 800 MG Q8H PRN PRN PO Metoclopramide HCl 10 MG Q8H PO Tramadol HCl 50 MG Q6H PO Glucagon 1 MG ASDIR IM (CKD) Insulin Glargine 50 UNIT DAILY@0700 SUBQ Insulin Human Lispro S/SCALE IF B-199 = 10 UNITS 200-250 = 15 UNITS 251-300 = 20 UNITS 301 OR >301 25 UNITS ASDIR SUBQ Daptomycin 500 MG Q24H IV Sodium Chloride 100 ML Diatrizoate Meglum/Diatrizoate Sod 40 ML ONCE NH N PO Clindamycin Phosphate 50 ML Q8H IV Gentamicin Sulfate 400 MG Q24H IV Sodium Chloride 100 ML Lactated Ringer's 1,000 ML ASDIR IV Magnesium Hydroxide 30 ML Q8H PRN PRN PO Results Findings/Data: Laboratory Tests 12/20 12/20 12/19 12/19 0502 0006 1815 1159 Chemistry Sodium (135 - 145 mEq/L) 139 Potassium (3.5 - 5.0 mEq/L) 3.2 L Chloride (100 - 115 mEq/L) 105 Carbon Dioxide (22 - 31 mEq/L) 27 Anion Gap (10 - 20) 10.40 BUN (7 - 18 mg/dL) 3 L Creatinine (0.5 - 1.0 mg/dL) 0.7 Glomerular Filtr Rate (>60 ml/min) 98 Glucose (65 - 110 mg/dL) 136 H POC Glucose (65 - 110 mg/dL) 107 144 H 126 H Calcium (8.4 - 10.2 mg/dL) 8.1 L Laboratory Tests 12/20 0502 Hematology WBC (6.6 - 12.1 K/mm3) 9.7 RBC (3.45 - 5.01 M/mm3) 3.58 Hgb (10.7 - 13.9 g/dL) 9.6 L Hct (32.1 - 42.1 %) 30.6 L MCV (84.1 - 94.8 fL) 86 MCH (27 - 35 pg) 26.8 L MCHC (32.2 - 34.1 gm/dL) 31.4 L RDW (12.4 - 16.5 %) 14.8 Plt Count (133 - 385 K/mm3) 274 MPV (9.1 - 12.7 fl) 10.3 Neut % (Auto) (56.5 - 79.4 %) 71.3 Lymph % (Auto) (14.3 - 34.3 %) 16.8 Lassen % (Auto) (5.1 - 10.4 %) 8.8 Eos % (Auto) (0.1 - 3.0 %) 2.1 Baso % (Auto) (0.1 - 1.0 %) 0.5 Neut # (Auto) (K/mm3) 6.9 Lymph # (Auto) (K/mm3) 1.6 Lassen # (Auto) (K/mm3) 0.9 Eos # (Auto) (K/mm3) 0.20 Baso # (Auto) (K/mm3) 0.1 Immature Plt Fraction (0.0 - 10.8 %) 0.0 Results: no new labs Treatment Prophylaxis Treatment Prophylaxis Jimenez status: discontinue today Other: Transfer to [facility] Electronically Signed by Arpan Min MD on at 1026 RPT #:[id number] END OF REPORT 2018-12-20 08:19:00-00:00 [facility] ([facility]) Critical Care Progress Note REPORT#:[id number] REPORT STATUS: Signed DATE:12/20/18 TIME: 818 PATIENT: STACY THOMPSON UNIT #: [id number] ROOM/BED: [address] : [birth year] AGE: 28 SEX: F ATTEND: Chidi Min MD ADM AUTHOR: Kristofer Ellison MD * ALL edits or amendments must be made on the [employer]/computer document * Subjective Comments: some bleching, few flatus, no more nasues almita so me clear has ambulated no bm pain is controlled. Objective General VS/I O Last Documented: Result Date Time Pulse Ox 95 12/21 399 B/P 109/63 12/21 399 B/P Mean 81 12/21 399 Temp 98.1 12/21 399 Pulse 79 12/21 399 Resp 14 12/21 399 O2 Delivery Nasal cannula 12/17 2049 O2 Flow Rate 2.713827 12/17 2049 24 hour I O ending at 0700: 12/20 0700 12/19 1900 Intake Total 2030.00 Output Total 1875 Balance 155.00 Intake, IV 1590.00 Intake, Oral 440 Output, Urine 1875 Medications: Active Meds + DC'd Last 24 Hrs Potassium Chloride 20 MEQ ONCE ONE PO Potassium Chloride 20 MEQ NOW ONE PO (DC) Magnesium Oxide 400 MG TID PO (CKD) Simethicone 80 MG Q6HR PO Dextran 2 ML ASDIR EACH EYE (CKD) Undefined Medication 100 ML ONCE ONE IV Acetaminophen 1,000 MG Q8H PRN PRN IV Dextrose/Sodium Chloride 1,000 ML ASDIR IV Enoxaparin Sodium 40 MG Q12H SUBQ Phenol 2 SPRAYS Q1H PRN PRN MM (CKD) Promethazine HCl 25 MG Q6H PRN PRN IM Ondansetron HCl 4 MG Q6H PRN PRN IV Acetaminophen 1,000 MG Q8H PO Ibuprofen 800 MG Q8H PRN PRN PO Metoclopramide HCl 10 MG Q8H PO Tramadol HCl 50 MG Q6H PO Glucagon 1 MG ASDIR IM (CKD) Insulin Glargine 50 UNIT DAILY@0700 SUBQ Insulin Human Lispro S/SCALE IF B-199 = 10 UNITS 200-250 = 15 UNITS 251-300 = 20 UNITS 301 OR >301 25 UNITS ASDIR SUBQ Daptomycin 500 MG Q24H IV Sodium Chloride 100 ML Diatrizoate Meglum/Diatrizoate Sod 40 ML ONCE NH N PO Clindamycin Phosphate 50 ML Q8H IV Gentamicin Sulfate 400 MG Q24H IV Sodium Chloride 100 ML Lactated Ringer's 1,000 ML ASDIR IV Magnesium Hydroxide 30 ML Q8H PRN PRN PO Physical Exam General appearance: obese, a lert, awake, oriented, no acute distress, pleasant, conversational, mental status normal, no respira tory distress Head/Eyes: atraumatic, normocephalic, PERRL ENT: moist mucosal membranes Neck: full range of motion, non-tender, normal t hyroid, short thick Cardiovascular: tachycardia, normal heart sounds , normal S1 S2, no murmur, no rub Respiratory/Chest: aerating well, clear to auscu ltation, symmetric expansion Abdomen: tenderness (approp post op near wound s ite), soft, no distention, no guarding, no mass/organomegaly, no rebound, incs ion cdi Extremities: moves all, normal capillary refill, normal temperature Neuro/BELT SANDER: alert, oriented X 3, CNII-XII intact Skin: normal color, normal temperature Results Findings/Data: Laboratory Tests 12/20/18 0502: [Embedded Image Not Available] Laboratory Tests 12/20 12/20 12/19 12/19 12/19 0502 0006 1815 1159 0833 Chemistry Sodium (135 - 145 mEq/L) 139 Potassium (3.5 - 5.0 mEq/L) 3.2 L Chloride (100 - 115 mEq/L) 105 Carbon Dioxide (22 - 31 mEq/L) 27 Anion Gap (10 - 20) 10.40 BUN (7 - 18 mg/dL) 3 L Creatinine (0.5 - 1.0 mg/dL) 0.7 Glomerular Filtr Rate (>60 ml/min) 98 Glucose (65 - 110 mg/dL) 136 H POC Glucose (65 - 110 mg/dL) 107 144 H 126 H Calcium (8.4 - 10.2 mg/dL) 8.1 L Magnesium (1.8 - 2.4 mg/dL) 1.8 Laboratory Tests 12/20 0502 Hematology WBC (6.6 - 12.1 K/mm3) 9.7 RBC (3.45 - 5.01 M/mm3) 3.58 Hgb (10.7 - 13.9 g/dL) 9.6 L Hct (32.1 - 42.1 %) 30.6 L MCV (84.1 - 94.8 fL) 86 MCH (27 - 35 pg) 26.8 L MCHC (32.2 - 34.1 gm/dL) 31.4 L RDW (12.4 - 16.5 %) 14.8 Plt Count (133 - 385 K/mm3) 274 MPV (9.1 - 12.7 fl) 10.3 Neut % (Auto) (56.5 - 79.4 %) 71.3 Lymph % (Auto) (14.3 - 34.3 %) 16.8 Lassen % (Auto) (5.1 - 10.4 %) 8.8 Eos % (Auto) (0.1 - 3.0 %) 2.1 Baso % (Auto) (0.1 - 1.0 %) 0.5 Neut # (Auto) (K/mm3) 6.9 Lymph # (Auto) (K/mm3) 1.6 Lassen # (Auto) (K/mm3) 0.9 Eos # (Auto) (K/mm3) 0.20 Baso # (Auto) (K/mm3) 0.1 Immature Plt Fraction (0.0 - 10.8 %) 0.0 Microbiology: 12/17 1500 NASAL: MRSA Screen - COMP Diagnosis, Assessment Plan Hospital course to date: Assessment Tubo-ovarian abscess with diehl bsequent adhesions and postinflammatory changes etc. s/p hysterectomy, salpingo-oophorectomy, lysis o f adhesions, bowel resection Diabetes mellitus w with hyperglycemia E. coli UTI Morbid obesity with BMI of 46 post op nausea DVT risk hypokalemia Recommendations and plan Continue antibiotics Follow urine cultures for ID and sensitivity- id dr moreau following Glucose control-Per endocrine DVT prophylaxis w lovenox ambulation repalce lytes-k abiel jimenez Electronically Signed by Kristofer Ellison MD on 12/28 at 0822 RPT #:[id number] END OF REPORT 2018-12-20 07:32:00-00:00 [facility] ([facility]) General Surgery Progress Note REPORT#:[id number] REPORT STATUS: Signed DATE:12/20/18 TIME: 07 PATIENT: STACY THOMPSON UNIT #: [id number] ROOM/BED: [address] : [birth year] AGE: 28 SEX: F ATTEND: Chidi Min MD ADM AUTHOR: Osman Farias MD * ALL edits or amendments must be made on the [employer]/computer document * General Date of surgery: 12/17/18 Status post: PRETTY-BSO, Enterolysis, Partial sigmoid resection w/ 1' anastomosis Subjective Comments: Patient reports feeling much better today. Aleksandr ating clears with some nausea and bloating, but no emesis. This morning did pa ss a small amount of flatus. Ambulating with good pain control. Objective Physical Exam VS/I O Last Documented: Result Date Time Pulse Ox 95 12/21 399 B/P 109/63 12/21 399 B/P Mean 81 12/21 399 Temp 98.1 12/21 399 Pulse 79 12/21 399 Resp 14 12/21 399 O2 Delivery Nasal cannula 12/17 2049 O2 Flow Rate 2.180016 11/08 2050 Vital Signs Date Temp Pulse Resp B/P B/P Mean Pulse Ox FiO2 12/19-12/20 97.8-98.6 74-94 13-24 100-148/56-70 74-101 95-99 24 hour I O ending at 0700: 12/20 0700 12/19 1900 Intake Total 2030.00 Output Total 1875 Balance 155.00 Intake, IV 1590.00 Intake, Oral 440 Output, Urine 1875 Patient Weight Weight (lb): 259 Weight (oz): 15.86 Weight (kg): 117.930 General appearance: alert, awake, oriented, no a cute distress Abdomen: Soft, ND, ATTP, Incisions i/c/d. Diagnosis, Assessment Plan Free Text A P: Ms Thompson is a 28 year-old f emale now POD #3 from Laparoscopic converted to open PRTETY-BSO, Marisol, and partial sigmoid resection with primary anastomosis. Patient now starting to have some return of bowel functi on. - ADAT soft if continues to pass flatus - Pain control - Rest of care per Dr. Min and ICU team at 0735 RPT #:[id number] END OF REPORT 2018-12-19 16:01:00-00:00 [facility] ([facility]) Critical Care Progress Note REPORT#:[id number] REPORT STATUS: Signed DATE:12/19/18 TIME: 1601 PATIENT: STACY THOMPSON UNIT #: [id number] ROOM/BED: [address] : [birth year] AGE: 28 SEX: F ATTEND: Chidi Min MD ADM AUTHOR: Kristofer Ellison MD * ALL edits or amendments must be made on the el [employer]/computer document * Subjective Comments: Doing better, ambulated some. no bm/flatus. No m ore emesis. Has gas pains. did almita some clears Objective General VS/I O Last Documented: Result Date Time Pulse Ox 98 12/19 1251 B/P 141/63 12/19 1251 B/P Mean 90 12/19 1251 Pulse 94 12/19 1251 Temp 98.6 11/10 1200 Resp 19 12/19 1200 O2 Delivery Nasal cannula 12/17 2049 O2 Flow Rate 2.313138 12/17 2049 24 hour I O ending at 0700: 12/19 0700 12/18 1900 Intake Total 1840.00 2075.00 Output Total 1100 810 Balance 740.00 1265.00 Intake, IV 1600.00 2075.00 Intake, Oral 240 Output, 15 Drainage Output, Urine 1100 795 Medications: Active Meds + DC'd Last 24 Hrs Magnesium Oxide 400 MG TID PO (CKD) Simethicone 80 MG Q6HR PO Dextran 2 ML ASDIR EACH EYE (CKD) Undefined Medication 100 ML ONCE ONE IV Acetaminophen 1,000 MG Q8H PRN PRN IV Hydromorphone HCl 1 MG Q6H PRN PRN IV (DC) Dextrose/Sodium Chloride 1,000 ML ASDIR IV Enoxaparin Sodium 40 MG Q12H SUBQ Phenol 2 SPRAYS Q1H PRN PRN MM (CKD) Promethazine HCl 25 MG Q6H PRN PRN IM Ondansetron HCl 4 MG Q6H PRN PRN IV Acetaminophen 1,000 MG Q8H PO Ibuprofen 800 MG Q8H PRN PRN PO Ketorolac Tromethamine 30 MG Q6H IV (DC) Metoclopramide HCl 10 MG Q8H PO Tramadol HCl 50 MG Q6H PO Glucagon 1 MG ASDIR IM (CKD) Insulin Glargine 50 UNIT DAILY@0700 SUBQ Insulin Human Lispro S/SCALE IF B-199 = 10 UNITS 200-250 = 15 UNITS 251-300 = 20 UNITS 301 OR >301 25 UNITS ASDIR SUBQ Daptomycin 500 MG Q24H IV Sodium Chloride 100 ML Diatrizoate Meglum/Diatrizoate Sod 40 ML ONCE NH N PO Clindamycin Phosphate 50 ML Q8H IV Gentamicin Sulfate 400 MG Q24H IV Sodium Chloride 100 ML Lactated Ringer's 1,000 ML ASDIR IV Magnesium Hydroxide 30 ML Q8H PRN PRN PO Physical Exam General appearance: obese, alert, awake, oriente d Head/Eyes: atraumatic, normocephalic, PERRL ENT: moist mucosal membranes Neck: full range of motion, non-tender, normal t hyroid, short thick Cardiovascular: tachycardia, normal heart sounds , normal S1 S2, no murmur, no rub Respiratory/Chest: aerating well, clear to auscu ltation, symmetric expansion Abdomen: tenderness, soft, n o distention, no guarding, no mass/organomegaly, no rebound, incsion cdi Extremities: moves all, normal capillary refill, normal temperature Neuro/BELT SANDER: alert, oriented X 3, CNII-XII intact Skin: normal color, normal temperature Results Findings/Data: Laboratory Tests 12/19/18 0500: [Embedded Image Not Available] Laboratory Tests 12/19 12/19 12/19 12/19 12/18 1159 0833 0500 0036 1813 Chemistry Sodium (135 - 145 mEq/L) 141 Potassium (3.5 - 5.0 mEq/L) 3.6 Chloride (100 - 115 mEq/L) 108 Carbon Dioxide (22 - 31 mEq/L) 27 Anion Gap (10 - 20) 9.80 L BUN (7 - 18 mg/dL) 4 L Creatinine (0.5 - 1.0 mg/dL) 0.7 Glomerular Filtr Rate (>60 ml/min) 98 Glucose (65 - 110 mg/dL) 169 H POC Glucose (65 - 110 mg/dL) 126 H 159 H 134 H Calcium (8.4 - 10.2 mg/dL) 7.5 L Magnesium (1.8 - 2.4 mg/dL) 1.8 Laboratory Tests 12/19 0500 Hematology WBC (6.6 - 12.1 K/mm3) 15.2 H RBC (3.45 - 5.01 M/mm3) 3.66 Hgb (10.7 - 13.9 g/dL) 9.8 L Hct (32.1 - 42.1 %) 31.4 L MCV (84.1 - 94.8 fL) 86 MCH (27 - 35 pg) 26.8 L MCHC (32.2 - 34.1 gm/dL) 31.2 L RDW (12.4 - 16.5 %) 15.0 Plt Count (133 - 385 K/mm3) 264 MPV (9.1 - 12.7 fl) 10.2 Neut % (Auto) (56.5 - 79.4 %) 75.6 Lymph % (Auto) (14.3 - 34.3 %) 14.0 L Lassen % (Auto) (5.1 - 10.4 %) 8.3 Eos % (Auto) (0.1 - 3.0 %) 1.1 Baso % (Auto) (0.1 - 1.0 %) 0.4 Neut # (Auto) (K/mm3) 11.5 Lymph # (Auto) (K/mm3) 2.1 Lassen # (Auto) (K/mm3) 1.3 Eos # (Auto) (K/mm3) 0.16 Baso # (Auto) (K/mm3) 0.1 Immature Plt Fraction (0.0 - 10.8 %) 0.0 Microbiology: 12/17 1499 NASAL: MRSA Screen - COMP 12/17 314 URINE: Urine Culture - COMP ESCHERICHIA COLI Diagnosis, Assessment Plan Hospital course to date: Assessment Tubo-ovarian abscess with diehl bsequent adhesions and postinflammatory changes etc. s/p hysterectomy, salpingo-oophorectomy, lysis o f adhesions, bowel resection Diabetes mellitus w with hyperglycemia E. coli UTI Morbid obesity with BMI of 46 post op nausea DVT risk Recommendations and plan Continue antibiotics Follow urine cultures first ID and sensitivity Glucose control-Per endocrine DVT prophylaxis w lovenox ambulation Electronically Signed by Kristofer Ellison MD on 11/27 at 1746 RPT #:[id number] END OF REPORT 2018-12-19 09:53:00-00:00 [facility] ([facility]) Gynecology Post Prog Note REPORT#:[id number] REPORT STATUS: Signed DATE:12/19/18 TIME: 09 PATIENT: STACY THOMPSON UNIT #: [id number] ROOM/BED: [address] : [birth year] AGE: 28 SEX: F ATTEND: Chidi Min MD ADM AUTHOR: Arpan Min MD * ALL edits or amendments must be made on the [employer]/computer document * General Post-op: day 2 Status post: PRETTY+BSO ENTEROLYSIS ADHESIOLYSIS COLON RESECTION ANSTOMOSIS Antibiotics: day 7 Subjective Patient reports: Yes: pain controlled. No: flatus/bowel movement, tolerating diet (gas pains). Objective Physical Exam VS/I O Last Documented: Result Date Time Pulse Ox 98 12/19 644 B/P 118/62 12/19 644 B/P Mean 84 12/19 644 Pulse 80 12/19 644 Resp 23 12/19 644 Temp 98.3 12/19 0400 O2 Delivery Nasal cannula 12/17 2049 O2 Flow Rate 2.128066 12/17 2049 24 hour I O ending at 0700: 12/19 0700 12/18 1900 Intake Total 1840.00 2075.00 Output Total 1100 810 Balance 740.00 1265.00 Intake, IV 1600.00 2075.00 Intake, Oral 240 Output, 15 Drainage Output, Urine 1100 795 Patient Weight Weight (lb): 259 Weight (oz): 15.86 Weight (kg): 117.930 General appearance: alert, awake, oriented (was walking earlier) Wound/incision: Location: midline umbilical dry and clean abdomen soft and not distended Site condition: dressing clean dry, dressing in tact Neck: non-tender Cardiovascular: normal heart sounds Respiratory: aerating well, clear to auscultatio n, symmetric expansion, no distress Abdomen: non-tender, soft, no CVA tenderness, no distention Extremities: moves all Skin: dry, intact, normal color Current Medications Medications: Active Meds + DC'd Last 24 Hrs Magnesium Oxide 400 MG TID PO (UNV) Dextran 2 ML ASDIR EACH EYE (CKD) Undefined Medication 100 ML ONCE ONE IV Acetaminophen 1,000 MG Q8H PRN PRN IV Hydromorphone HCl 1 MG Q6H PRN PRN IV (DC) Dextrose/Sodium Chloride 1,000 ML ASDIR IV Enoxaparin Sodium 40 MG Q12H SUBQ Phenol 2 SPRAYS Q1H PRN PRN MM (CKD) Promethazine HCl 25 MG Q6H PRN PRN IM Ondansetron HCl 4 MG Q6H PRN PRN IV Acetaminophen 1,000 MG Q8H PO Ibuprofen 800 MG Q8H PRN PRN PO Ketorolac Tromethamine 30 MG Q6H IV (DC) Metoclopramide HCl 10 MG Q8H PO Tramadol HCl 50 MG Q6H PO Glucagon 1 MG ASDIR IM (CKD) Insulin Glargine 50 UNIT DAILY@0700 SUBQ Insulin Human Lispro S/SCALE IF B-199 = 10 UNITS 200-250 = 15 UNITS 251-300 = 20 UNITS 301 OR >301 25 UNITS ASDIR SUBQ Daptomycin 500 MG Q24H IV Sodium Chloride 100 ML Diatrizoate Meglum/Diatrizoate Sod 40 ML ONCE NH N PO Clindamycin Phosphate 50 ML Q8H IV Gentamicin Sulfate 400 MG Q24H IV Sodium Chloride 100 ML Lactated Ringer's 1,000 ML ASDIR IV Magnesium Hydroxide 30 ML Q8H PRN PRN PO Results Findings/Data: Laboratory Tests 12/19 12/19 12/19 12/18 12/18 0833 0500 0036 1813 1224 Chemistry Sodium (135 - 145 mEq/L) 141 Potassium (3.5 - 5.0 mEq/L) 3.6 Chloride (100 - 115 mEq/L) 108 Carbon Dioxide (22 - 31 mEq/L) 27 Anion Gap (10 - 20) 9.80 L BUN (7 - 18 mg/dL) 4 L Creatinine (0.5 - 1.0 mg/dL) 0.7 Glomerular Filtr Rate (>60 ml/min) 98 Glucose (65 - 110 mg/dL) 169 H POC Glucose (65 - 110 mg/dL) 159 H 134 H 137 H Calcium (8.4 - 10.2 mg/dL) 7.5 L Magnesium (1.8 - 2.4 mg/dL) 1.8 Laboratory Tests 12/19 0500 Hematology WBC (6.6 - 12.1 K/mm3) 15.2 H RBC (3.45 - 5.01 M/mm3) 3.66 Hgb (10.7 - 13.9 g/dL) 9.8 L Hct (32.1 - 42.1 %) 31.4 L MCV (84.1 - 94.8 fL) 86 MCH (27 - 35 pg) 26.8 L MCHC (32.2 - 34.1 gm/dL) 31.2 L RDW (12.4 - 16.5 %) 15.0 Plt Count (133 - 385 K/mm3) 264 MPV (9.1 - 12.7 fl) 10.2 Neut % (Auto) (56.5 - 79.4 %) 75.6 Lymph % (Auto) (14.3 - 34.3 %) 14.0 L Lassen % (Auto) (5.1 - 10.4 %) 8.3 Eos % (Auto) (0.1 - 3.0 %) 1.1 Baso % (Auto) (0.1 - 1.0 %) 0.4 Neut # (Auto) (K/mm3) 11.5 Lymph # (Auto) (K/mm3) 2.1 Lassen # (Auto) (K/mm3) 1.3 Eos # (Auto) (K/mm3) 0.16 Baso # (Auto) (K/mm3) 0.1 Immature Plt Fraction (0.0 - 10.8 %) 0.0 Results: no new labs Treatment Prophylaxis Treatment Prophylaxis Other: Will start on Magnesium oxide 499 tid to stimulated bowel help to pass gas and allso for a bm. Gastroparesis due to her diabete s, Start on ckear liquids and continue to ambulate Lovenox for DVT prevention Triple antibiotics Daptomycin, Cleocin and Genta mycin with slow resolution of her elevated WBC On insuline scale Perhaps tomorrow transfered to the Med Surg floo r Electronically Signed by Arpan Min MD on at 1000 RPT #:[id number] END OF REPORT 2018-12-18 14:18:00-00:00 [facility] ([facility]) Critical Care Progress Note REPORT#:[id number] REPORT STATUS: Signed DATE:12/18/18 TIME: 1418 PATIENT: STACY THOMPSON UNIT #: [id number] ROOM/BED: [address] : [birth year] AGE: 28 SEX: F ATTEND: Chidi Min MD ADM AUTHOR: Kristofer Ellison MD * ALL edits or amendments must be made on the [employer]/computer document * Subjective Comments: Found to have hypomagnesemia with morning labs. No other events less nauseated. About midday today had falling off of u rine output around 25 cc an hour while less than half milliliters per kilogram. but whe n check had 100cc for prior 2 hours overall she feels better, less nausea but no fla tus or bm pain is miniaml increase w walking no sob or cp still mild sore throat Objective General VS/I O Last Documented: Result Date Time Pulse Ox 99 11/09 1200 B/P 99/53 12/19 1199 B/P Mean 71.0 12/19 1199 Temp 98.0 12/19 1199 Pulse 87 12/18 1200 Resp 18 12/19 1199 O2 Delivery Nasal cannula 12/17 2049 O2 Flow Rate [id number] 12/17 2049 24 hour I O ending at 0700: 12/18 0700 12/17 1900 Intake Total 2490.00 4600.00 Output Total 955 2625 Balance 1535.00 1975.00 Intake, Blood 750 Product Intake, IV 2400.00 3850.00 Intake, Oral 90 Output, 5 Drainage Output, Emesis Output, 2000 Estimated Blood Loss Output, Urine 950 625 Medications: Active Meds + DC'd Last 24 Hrs Enoxaparin Sodium 40 MG Q12H SUBQ (DC) Dextran 2 ML ASDIR EACH EYE (CKD) Sodium Chloride 500 ML ONCE ONE IV (DC) Enoxaparin Sodium 40 MG DAILY SUBQ (DC) Undefined Medication 100 ML ONCE ONE IV Acetaminophen 1,000 MG Q8H PRN PRN IV Dextrose/Lactated Ringer's 1,000 ML ASDIR IV (DC ) Acetaminophen 1,000 MG Q6H PRN PRN IV (DC) Hydromorphone HCl 1 MG Q6H PRN PRN IV Dextrose/Sodium Chloride 1,000 ML ASDIR IV Sodium Chloride 1,000 ML BOLUS ONCE ONE IV (DC) Enoxaparin Sodium 40 MG Q12H SUBQ Insulin Human Lispro 0 .STK-MED ONE SUBQ (DC) Insulin Human Lispro 0 .STK-MED ONE SUBQ (DC) Sodium Chloride 500 ML .Q2H IV (DC) Phenol 2 SPRAYS Q1H PRN PRN MM (CKD) Promethazine HCl 25 MG ONCE ONE IM (CAN) Promethazine HCl 25 MG Q6H PRN PRN IM Ondansetron HCl 4 MG Q6H PRN PRN IV Acetaminophen 1,000 MG Q8H PO Hydromorphone HCl 1 MG Q3H PRN PRN IV (DC) Ibuprofen 800 MG Q8H PRN PRN PO Ketorolac Tromethamine 30 MG Q6H IV Metoclopramide HCl 10 MG Q8H PO Sodium Chloride 1,000 ML ASDIR IV (DC) Tramadol HCl 50 MG Q6H PO Glucagon 1 MG ASDIR IM (CKD) Insulin Glargine 50 UNIT DAILY@0700 SUBQ Insulin Human Lispro S/SCALE IF B-199 = 10 UNITS 200-250 = 15 UNITS 251-300 = 20 UNITS 301 OR >301 25 UNITS ASDIR SUBQ Daptomycin 500 MG Q24H IV Sodium Chloride 100 ML Diatrizoate Meglum/Diatrizoate Sod 40 ML ONCE NH N PO Clindamycin Phosphate 50 ML Q8H IV Gentamicin Sulfate 400 MG Q24H IV Sodium Chloride 100 ML Lactated Ringer's 1,000 ML ASDIR IV Magnesium Hydroxide 30 ML Q8H PRN PRN PO Lactated Ringer's 1,000 ML ASDIR IV (DC) Post-op: day 1 Physical Exam General appearance: obese, alert, awake Head/Eyes: atraumatic, normocephalic, PERRL ENT: moist mucosal membranes Neck: full range of motion, non-tender, normal t hyroid, short thick Cardiovascular: tachycardia, normal heart sounds , normal S1 S2, no murmur, no rub Respiratory/Chest: aerating well, clear to auscu ltation, symmetric expansion Abdomen: abnormal bowel sounds (hypoactive), ten derness, soft, incsion cdi Extremities: moves all, normal capillary refill, normal temperature Neuro/BELT SANDER: alert, oriented X 3, CNII-XII intact Skin: abnormal color, abnormal temperature, absc ess Results Findings/Data: Laboratory Tests 12/18/18 0502: [Embedded Image Not Available] 12/17/18 2215: [Embedded Image Not Available] 12/17/18 1715: [Embedded Image Not Available] Laboratory Tests 12/18 12/18 12/18 12/17 12/17 1224 0502 0010 2215 1715 Chemistry Sodium (135 - 145 mEq/L) 137 137 134 L Potassium (3.5 - 5.0 mEq/L) 4.5 4.1 5.7 H Chloride (100 - 115 mEq/L) 106 105 101 Carbon Dioxide (22 - 31 mEq/L) 25 25 22 Anion Gap (10 - 20) 10.50 11.60 16.70 BUN (7 - 18 mg/dL) 8 7 8 Creatinine (0.5 - 1.0 mg/dL) 0.8 1.0 0.9 Glomerular Filtr Rate (>60 ml/min) 84 65 74 Glucose (65 - 110 mg/dL) 230 H 344 H 371 H POC Glucose (65 - 110 mg/dL) 137 H 280 H Calcium (8.4 - 10.2 mg/dL) 7.0 L 7.1 L 7.5 L Magnesium (1.8 - 2.4 mg/dL) 1.0 L Total Bilirubin (0.2 - 1.0 mg/dL) 0.8 AST (15 - 37 units/L) 22 ALT (12 - 78 units/L) 20 Total Alk Phosphatase (46 - 116 69 units/L) Total Protein (6.3 - 8.2 gm/dL) 5.7 L Albumin (3.4 - 4.8 gm/dL) 2.1 L 12/17 1448 Chemistry POC Glucose (65 - 110 mg/dL) 288 H Laboratory Tests 12/18 12/17 0502 1715 Hematology WBC (6.6 - 12.1 K/mm3) 16.6 H 28.6 *H RBC (3.45 - 5.01 M/mm3) 4.16 5.23 H Hgb (10.7 - 13.9 g/dL) 11.2 13.9 Hct (32.1 - 42.1 %) 35.2 44.6 H MCV (84.1 - 94.8 fL) 85 85 MCH (27 - 35 pg) 26.9 L 26.6 L MCHC (32.2 - 34.1 gm/dL) 31.8 L 31.2 L RDW (12.4 - 16.5 %) 14.7 14.7 Plt Count (133 - 385 K/mm3) 309 223 MPV (9.1 - 12.7 fl) 10.9 10.9 Neut % (Auto) (56.5 - 79.4 %) 76.8 Lymph % (Auto) (14.3 - 34.3 %) 12.1 L Lassen % (Auto) (5.1 - 10.4 %) 10.3 Eos % (Auto) (0.1 - 3.0 %) 0.0 L Baso % (Auto) (0.1 - 1.0 %) 0.3 Neut # (Auto) (K/mm3) 12.7 Lymph # (Auto) (K/mm3) 2.0 Lassen # (Auto) (K/mm3) 1.7 Eos # (Auto) (K/mm3) 0 Baso # (Auto) (K/mm3) 0.1 Add Manual Diff YES Total Counted (#CELLS) 100 Seg Neutrophils % (56.5 - 79.4 %) 88 H Band Neutrophils % (0 - 5 %) 4 Lymphocytes % (Manual) (20 - 40 %) 6 L Monocytes % (Manual) (0 - 8 %) 2 Platelet Estimate (ADEQ) ADEQUATE Immature Plt Fraction (0.0 - 10.8 %) 0.0 0.0 Plt Morphology Comment (NORMAL) NORMAL Microbiology: 12/17 1500 NASAL: MRSA Screen - RECD 12/17 314 URINE: Urine Culture - RES GRAM NEGATIVE JOSEP Diagnosis, Assessment Plan Hospital course to date: Assessment Tubo-ovarian abscess with diehl bsequent adhesions and postinflammatory changes etc. s/p hysterectomy, salpingo-oophorectomy, lysis o f adhesions, bowel resection Diabetes mellitus w with hyperglycemia Morbid obesity with BMI of 46 post op nausea DVT risk Recommendations and plan Continue antibiotics Follow urine cultures first ID and sensitivity IV fluid bolus increase IV fluids for ye llow urine output check for mechanical obstruction--done chloraseptic spray dc toradol since low uop Glucose control-Per endocrine DVT prophylaxis w lovenox Analgesia, diet and activity per surgery//AMUSEMENT P[employer]IC se rvice Electronically Signed by Kristofer Ellison MD on 10/28 at 1512 RPT #:[id number] END OF REPORT 2018-12-18 07:59:00-00:00 [facility] ([facility] Gynecology Post Prog Note REPORT#:[id number] REPORT STATUS: Signed DATE:12/18/18 TIME: 758 PATIENT: STACY THOMPSON UNIT #: [id number] ROOM/BED: [address] : [address] AGE: 28 SEX: F ATTEND: Chidi Min MD ADM AUTHOR: Arpan Min MD * ALL edits or amendments must be made on the el [employer]/computer document * General ORM Surgeries: Surgery Date and Time: 12/17/2018 0800 Primary Procedure: HYSTERECTOMY ABDOMINAL Secondary Procedures: LYSIS OF ADHESIONS PROCTOSCOPY SIGMOID RESECTION COLONOSCOPY Post-op: day 1 Status post: PRETTY+BSO ENTEROLYSIS ADHESIOLYSIS COLON RESECTION ANSTOMOSIS Antibiotics: day 3 (dAPTO, CLEOCIN GENTAMYCIN) Subjective Patient reports: Yes: ambulating, pain controlled (ICE CHIPS; NO FLATUS). No: complaints, abdominal pain, chills, fever, flatus/bowel move ment, headache, nausea. Comments: PATIENT HAPPY WITH RESULTS AND PROCEDURES PERFOR RMED; HER CONCERN WAS IF CONSTIPATION, OBSTINATION WILL CONTINUE. THE RICCI GICAL FINDINGS OF COLO-RECTAL SURGERY TEAM OF DR KIM AND ASSOCIATE WERE OF FO LDED LOW SIGMOID WITH MINIMAL LUMEN AND ALMOST TO HAVE BOWEL OBSTRUCTION. WE HOPE HER BOWEL MOVEMENTS TO BE NORMAL. HER PAIN IS LESS FIRST DAY POST OP THAN PREOP. ANXIOUS TO GET UP AND AMBULATE; LAST NIGHT WAS A BLE TO DO IT INCEPTIVE EXPIROMETRY BY IP TODAY TO CONNECT MALECOT TO A DRAIN; WILL ASK SURGERY NURSE TO HELP US Review of Systems Constitutional: Denies: chills, fatigue, fever, generalized weak ness, lethargy, malaise. Objective Physical Exam VS/I O Last Documented: Result Date Time Pulse Ox 97 12/18 599 B/P 113/55 12/18 599 B/P Mean 79 12/18 599 Pulse 92 12/18 599 Resp 20 12/18 599 Temp 97.8 12/18 0400 O2 Delivery Nasal cannula 12/17 2049 O2 Flow Rate [id number] 12/17 2049 24 hour I O ending at 0700: 12/18 0700 12/17 1900 Intake Total 2490.00 4600.00 Output Total 955 2625 Balance 1535.00 1975.00 Intake, Blood 750 Product Intake, IV 2400.00 3850.00 Intake, Oral 90 Output, 5 Drainage Output, Emesis Output, 2000 Estimated Blood Loss Output, Urine 950 625 Patient Weight Weight (lb): 259 Weight (oz): 15.86 Weight (kg): 117.930 General appearance: alert Wound/incision: Location: midline umbilical dry and clean abdomen soft and not distended Site condition: dressing clean dry, dressing in tact HEENT: anicteric, moist mucosal membranes, livia l pharynx, pupils reactive to light, sclera clear Neck: non-tender Breast: symmetrical, no discharge Cardiovascular: normal heart sounds Respiratory: aerating well, clear to auscultatio n, symmetric expansion, no distress Abdomen: non-tender, soft, no CVA tenderness, no distention Extremities: moves all Skin: dry, intact, normal color Current Medications Medications: Active Meds + DC'd Last 24 Hrs Enoxaparin Sodium 40 MG Q12H SUBQ (DC) Enoxaparin Sodium 40 MG DAILY SUBQ (DC) Undefined Medication 100 ML ONCE ONE IV Acetaminophen 1,000 MG Q8H PRN PRN IV Dextrose/Lactated Ringer's 1,000 ML ASDIR IV (DC ) Acetaminophen 1,000 MG Q6H PRN PRN IV (DC) Hydromorphone HCl 1 MG Q6H PRN PRN IV Dextrose/Sodium Chloride 1,000 ML ASDIR IV Sodium Chloride 1,000 ML BOLUS ONCE ONE IV (DC) Enoxaparin Sodium 40 MG Q12H SUBQ Insulin Human Lispro 0 .STK-MED ONE SUBQ (DC) Insulin Human Lispro 0 .STK-MED ONE SUBQ (DC) Sodium Chloride 500 ML .Q2H IV (DC) Phenol 2 SPRAYS Q1H PRN PRN MM (CKD) Promethazine HCl 25 MG ONCE ONE IM (CAN) Promethazine HCl 25 MG Q6H PRN PRN IM Ondansetron HCl 4 MG Q6H PRN PRN IV Acetaminophen 1,000 MG Q8H PO Hydromorphone HCl 1 MG Q3H PRN PRN IV (DC) Ibuprofen 800 MG Q8H PRN PRN PO Ketorolac Tromethamine 30 MG Q6H IV Metoclopramide HCl 10 MG Q8H PO Sodium Chloride 1,000 ML ASDIR IV (DC) Tramadol HCl 50 MG Q6H PO Dexamethasone Sodium Phosphate 0 .STK-MED ONE .R OUTE (DC) Glycopyrrolate 0 .STK-MED ONE .ROUTE (DC) Neostigmine [place] 0 .STK-MED ONE .ROUTE (DC) Ondansetron HCl 0 .STK-MED ONE .ROUTE (DC) Esmolol HCl 0 .STK-MED ONE .ROUTE (DC) Hydromorphone HCl 0 .STK-MED ONE .ROUTE (DC) Rocuronium [place] 5 ML .STK-MED ONE INJ (DC) Fentanyl Citrate 0 .STK-MED ONE .ROUTE (DC) Hydromorphone HCl 0 .STK-MED ONE .ROUTE (DC) Fentanyl Citrate 0 .STK-MED ONE .ROUTE (DC) Hydromorphone HCl 0.5 MG PACU Q5MIN PRN PRN IV ( DC) Meperidine HCl 12.5 MG PACU ASDIR PRN PRN IV (DC ) Morphine Sulfate 4 MG PACU Q15MIN PRN PRN IV (DC ) Ondansetron HCl 4 MG PACU ONCE PRN IV (DC) Promethazine HCl 12.5 MG PACU ONCE PRN IM (DC) Glucagon 1 MG ASDIR IM (CKD) Insulin Glargine 50 UNIT DAILY@0700 SUBQ Insulin Human Lispro S/SCALE IF B-199 = 10 UNITS 200-250 = 15 UNITS 251-300 = 20 UNITS 301 OR >301 25 UNITS ASDIR SUBQ Daptomycin 500 MG Q24H IV Sodium Chloride 100 ML Diatrizoate Meglum/Diatrizoate Sod 40 ML ONCE NH N PO Clindamycin Phosphate 50 ML Q8H IV Gentamicin Sulfate 400 MG Q24H IV Sodium Chloride 100 ML Lactated Ringer's 1,000 ML ASDIR IV Acetaminophen 650 MG Q6H PRN PRN PO (DC) Magnesium Hydroxide 30 ML Q8H PRN PRN PO Lactated Ringer's 1,000 ML ASDIR IV (DC) Results Findings/Data: Laboratory Tests 12/18 12/18 12/17 12/17 12/17 0502 0010 2215 1715 1448 Chemistry Sodium (135 - 145 mEq/L) 137 137 134 L Potassium (3.5 - 5.0 mEq/L) 4.5 4.1 5.7 H Chloride (100 - 115 mEq/L) 106 105 101 Carbon Dioxide (22 - 31 mEq/L) 25 25 22 Anion Gap (10 - 20) 10.50 11.60 16.70 BUN (7 - 18 mg/dL) 8 7 8 Creatinine (0.5 - 1.0 mg/dL) 0.8 1.0 0.9 Glomerular Filtr Rate (>60 ml/min) 84 65 74 Glucose (65 - 110 mg/dL) 230 H 344 H 371 H POC Glucose (65 - 110 mg/dL) 280 H 288 H Calcium (8.4 - 10.2 mg/dL) 7.0 L 7.1 L 7.5 L Magnesium (1.8 - 2.4 mg/dL) 1.0 L Total Bilirubin (0.2 - 1.0 mg/dL) 0.8 AST (15 - 37 units/L) 22 ALT (12 - 78 units/L) 20 Total Alk Phosphatase (46 - 116 units/L) 69 Total Protein (6.3 - 8.2 gm/dL) 5.7 L Albumin (3.4 - 4.8 gm/dL) 2.1 L Laboratory Tests 12/18 12/17 0502 1715 Hematology WBC (6.6 - 12.1 K/mm3) 16.6 H 28.6 *H RBC (3.45 - 5.01 M/mm3) 4.16 5.23 H Hgb (10.7 - 13.9 g/dL) 11.2 13.9 Hct (32.1 - 42.1 %) 35.2 44.6 H MCV (84.1 - 94.8 fL) 85 85 MCH (27 - 35 pg) 26.9 L 26.6 L MCHC (32.2 - 34.1 gm/dL) 31.8 L 31.2 L RDW (12.4 - 16.5 %) 14.7 14.7 Plt Count (133 - 385 K/mm3) 309 223 MPV (9.1 - 12.7 fl) 10.9 10.9 Neut % (Auto) (56.5 - 79.4 %) 76.8 Lymph % (Auto) (14.3 - 34.3 %) 12.1 L Lassen % (Auto) (5.1 - 10.4 %) 10.3 Eos % (Auto) (0.1 - 3.0 %) 0.0 L Baso % (Auto) (0.1 - 1.0 %) 0.3 Neut # (Auto) (K/mm3) 12.7 Lymph # (Auto) (K/mm3) 2.0 Lassen # (Auto) (K/mm3) 1.7 Eos # (Auto) (K/mm3) 0 Baso # (Auto) (K/mm3) 0.1 Add Manual Diff YES Total Counted (#CELLS) 100 Seg Neutrophils % (56.5 - 79.4 %) 88 H Band Neutrophils % (0 - 5 %) 4 Lymphocytes % (Manual) (20 - 40 %) 6 L Monocytes % (Manual) (0 - 8 %) 2 Platelet Estimate (ADEQ) ADEQUATE Immature Plt Fraction (0.0 - 10.8 %) 0.0 0.0 Plt Morphology Comment (NORMAL) NORMAL Results: no new labs Treatment Prophylaxis Treatment Prophylaxis Jimenez status: day 1 Other: ASK INHALATION THERAPHY FOR IPPB AND PREVENT ATE LECTASIS CONTINUE ANTIBIOTICS = DAPTOMYCIN, CLEOCIN GENTA MYCIN CLEAR LIQUIDS TODAY UP AND AMBULATE WITH HELP CONNECT MELICOT TO DRAINAGE AND SUCTION MAY DC JIMENEZ WHEN OK WITH DR ELLISON. Electronically Signed by Arpan Min MD on at 0812 [facility] #:[id number] END OF REPORT 2018-12-18 00:02:00-00:00 [id number] [facility] [address] [address] PATIENT NAME: STACY THOMPSON ADMIT DATE: 12/15 ACCOUNT NO: [id number] ROOM NO: [facility] AGE: 28 SEX: F ADMITTING PHYSICIAN: Arpan Min MD ATTENDING PHYSICIAN: Arpan Min MD OPERATION DATE: 12/17/2018 PREOPERATIVE DIAGNOSES: Pelvic inflammatory dise ase, tubo-ovarian abscess, recurrent, failure to respon d to interventional radiology drainage, at least x2, status post appendectomy and resulted in a normal appendix but an evidence of a large tubo-ovarian abscess of the right side, de scribed to be from the pelvis all the way up to the liver. POSTOPERATIVE DIAGNOSES:SAME + SIGMOID COLON PAR TIAL OBSTRUCTION; ENTEROLYSIS SIGMOID RESECTION + ANASTOMOSIS; TAHBSO; MELICOT DRAIN PROCEDURES: ABOVE PRIMARY SURGEON:ARPAN MIN MD MANAGER MECHANICAL:TARUN CURIEL CSA; he was in front of me; help to open incision; guide suction and hemostasis; open abdominal cav ity; difficult dissection; restore anatomy; procede with hysterecto my, right salpingoophorectomy and left SO and recognized the sigmoid almost obs truction; called Dr River Herring and stay with me after colo rectal surgery done a nd help me to closed incion by layers. ANESTHESIA: General On a CT scan with contrast, it was evident of a large right side tubo-ovarian abscess as well as the abscess of a smaller size in the left side. The right side was at least 8 cm in diameter. The left side was 5 cm in diameter, but it was evident on both right and left is that with the contrast, there was bowel surrounding the structure of the tubo-ovarian abscess, suspecting very cohesive and vascular adhesions. For this reason, had ask ed me to ask in consultation with general surgery and warn the patient of the possibility of colostomy as well as other bowel surgery and in the i nformed consent, also, the patient has been aware very well of the hysterectomy will not be making her possible to have children. She will have no menstrual periods and the bilateral salpingo-oophorectomy, will eventually require estrogen replacement therapy and it can be for at least 20 years or more, if not changes of severe osteoporosis can take place, as well as many of the c onsequences. The patient requested the surgery and was aware of the need of colostomy, a bowel prep, having had antibiotic triple therapy of daptomycin, Cleocin and gentamicin as well as had a mechanical prep with the use of the laxa tive MIRALAX at the dose of 325 mg and if needed enemas until clean. The pelvic exam wa s significant that despite of the morbid obesity of this patient, there was tr ansverse incisions of her previous sections and the uterus that w as enlarged and fixed and there was also fullness and thickening in the ri ght and in the left adnexa. PATIENT NAME: STACY THOMPSON [id number] The growth is worse in the right compared to the left. The initial plan was to do a laparoscopy and with the laparoscopic ev aluation and/or the need of lysis of adhesions, enterolysis, to decide betwe en robotic hysterectomy or exploratory laparotomy, hysterectomy, bilateral salpingo-oophorectomy, and indicated procedures. The initial placement of a 5 -mm trocar was midclavicular subcostal left upper quadrant with an Optiview, the albert rousseau, we then had the pneumoperitoneum, been initiated with a total of 3.5 liters of carbon dioxide and locate omental adhesions subumbilica l. An intraumbilical 8-mm incision and infiltration with Marcaine, placed the t rocar in this site, as well as lateral right and left approximately 10 cm at the same level, paraumbilical for the next 2 trocars of 8 mm each. With this, the l aparoscope was exchanged into the left upper quadrant, intraumbilical, left low er quadrant, right upper quadrant, but in view of the extensive adhesive diseas e, we requested Dr. Julita Herring to perform the enterolysis. The lysis of omental ad hesions went without any problem and the lysis of the adhesions that were more cohesive, vascular, and worse on the adnexa right and left, having not o nly the small bowel, but the colon involved, I had made t he decision to then perform a midline infraumbilical incision initially to be probably increased to b e supraumbilical for the completion of her surgery and the planned surger y had changed to be total abdominal hysterectomy, bilateral salpingo-oopho rectomy, enterolysis and indicated procedures. The incision was performed and it was necessary to do first the hysterectomy, isolating the round liga ment, dissecting the broad ligament, anterior bladder p eritoneum and then finally the corpus of the uterus removed to the cervix and in place, leaving the cuff open for the Malecot drain. In the right side, sidewall and lysis of adhesions was accomplished to isolate the infundibulopelvic ligame nt to do retroperitoneal dissection, localization of the ureter and the removal of the right adnexa. In the left adnexa, it was involvement of the sigmoid colon, small bowel. T he size was less in the left than compared to the right, but perhaps more cohesive and also insulation of the infundibulopelvic ligament was needed tr acing the ureter and complete the left salpingo-oophorectomy, but founding that there w as a piece of probably descending bowel colon sigmo id that was essentially ended into a blind pouch and it was ended abruptly and unable to see the rectosigmoid. Julita Herring MD, returned to the room to do the evaluatio n. She also was with the same question and a colonoscopy was performed. Still n ot able to see the site by placing air and having the pelvic cavity full of liquid. The presence of air then indicated that there was incidental cut of the lower end o f the sigmoid colon. For this reason, we called for [facility] surgery and Dr. Lopez kindly attended the call. One of his partners was present, performed the e valuation, and initiated the requirement of surgical equi pment and the two together Dr. Lopez and his partner performed the sigmoid colon resection of about 20 cm, had found out to be folded and probably with a question of how this lady was able to have bowel movements in a more prospective way after the surgery. She confirmed to have pretty severe constipation. It was possible to do end terminal anastomosis. A Malecot drain that was in the vagina was left also undisturbed and we proceeded with the closure of the abdomen. The patient had a blood loss of 700 mL to this point. The urinary output was of 250 mL. The operating time was probably in the neighborhood of 5 to 5-1/2 hours and a d iabetic, multiple admissions, multiple treatments with different an tibiotics despite that the patient was very stable, first needed 2 units of blood transfusion and fo r her recovery after consultation with the hand sample maker, Dr. Ellison, a nd ICU admission. PROCEDURE IN DETAIL: The patient was placed in d orsal lithotomy position. The area was prepped and draped. The cervix grasped with a tenaculum. Progressive PATIENT NAME: STACY THOMPSON [id number] dilatation was performed up to a Hegar size 18. The uterus was sounded to approximately 12 cm. The enlargement of the uter ine cavity was probably more due to the cervical length. The PROMISE was selecte d as the uterine manipulator with an orange catheter of 1 1 cm and a cup of 3.0 cm in diameter that was placed without any difficulty together with the Jimenez c atheter. The attention then was passed to the abdomen whe re in the left upper quadrant subcostal midclavicular line is initiall y attempted to place the Veress needle and not successful. The pneumoperitoneum was the n elected to go through the larger size Optiview 5-mm tr ocar, which was placed on the patient and initiated the pneumoperitoneum and found the suspected ome ntal adhesions and bowel adhesions. The omental adhesions were possible t o be taken via laparoscopy by Dr. Julita Herring and she will dictate in rega rd of this procedure and with the omental adhesions releas ed into the adnexa and extensive bowel cohesive and infiltrated and very dense, but despite of resec tion by Dr. Herring, was not complete and with discussion of the case, it was decided to perform an exploratory laparotomy, midline incision , infraumbilical initially to consider the extension if needed. The incision was bro d down the skin, subcutaneous tissue, and fascia, separation of the rectal mus cles in the midline and peritoneum entered in a length of approximately 12 cm and the large retractor Alright was selected with 2 laps in deep Trendelenburg position to arrive to the pelvis, in which a very larg e abscess and bowel cohesive adhesions were present in the right side, as well o n the left, and on the left it was appreciated that it was also an involvement of the sigmoi d colon in the front and anterior. The decision to do first the hysterectomy was to do this division of the round ligaments, continue to take utero-ovaria n ligaments, broad ligaments, division and dissection of the broad ligament and endopel magdalena fascia and bladder peritoneum and cardinal ligaments, uterosacral l igaments, then with Candice clamps, cut and transfixion stitches of Vicryl. Hemostasis was secured and with essentially minimal blood lo ss. The cervix, which was elongated, as per her age and gravity, parity and previous cesarea n sections, but ending at the junction of the cervix with the vagina, anteriorly was en tered and circumcision of the cervix around the vagina was completed to do the n the total abdominal hysterectomy and submit the specimen for doing a pathological permanent exam. Stitches were applied 0 PDS on the corners of th e right and left side and a large Slovak 25 equivalent to 2.5 cm in diameter Malecot drain was placed through the vagina and gloves were exchanged. No w, the dissection was done in the right adnexa. The enterolysis completed unde r the Metzenbaum scissors and retroperitoneal dissection and advancing to in a retroperitoneal fashion to locate the ureter, the infundibulopelvic ligamen t, ligated the pedicles and removed the large tubo-ovarian abscess in the ri ght. In the left side, it was the same technique and the same way to do the di ssection of the bowel, colon, infundibulopelvic ligament, retroperitoneum, ureters dissected and palpated and found the 5-cm tubo-ovarian abscess, rem hafsa and asked for Dr. Julita Herring to return to do the evaluation of the enterolysi s, adhesiolysis, and lysis of bowel adhesions. She will dictate a note into th is regard, but end result was that the small bowel was exp lored completely. The large bowel was also explored and found the ending of the sigmoid colo n into a pouch that was abrupt, and to think that cut into the rectosigmoid, ____ need to instead call the rectal surgeon for evaluation and treatment. She had pe rformed the dissection. She had performed a colonoscopy and she had done the test in which air was present and the fellow and partner of Dr. Jessica Lopez attended to do the removal of the sigmoid colon, which was explained to us as folded and almost completely obstructed, which might have produced th e patient's severe constipation and an end-to-end anastomosis was t hen performed and he will dictate in regard of this PATIENT NAME: STACY THOMPSON [id number] procedure. When all of these were comple darshan, he had called me and reported the procedure and asked me to do the closure of the abdomen, which was performed with Vicryl in each angle and tying each one in the middle and then the fascia closed with a large XP needle, a nylon from the lower segment to the upper incision and brought together the two in the mid line and subcutaneous tissue closed with Vicryl and PDS and Enseal st aples absorbable to close the incision and a binder will be placed. It was felt that the blood loss was replaced with 2 units of blood and I called the intens ivist, Dr. Ellison to have the approval for ICU admission. It was done. The urinary outp ut was 250 mL of urine, somewhat concentrated, but c lear urine and with vital signs stable. The patient will be going to ICU for her recovery phase of t he anesthesia. The instrument count, sponge count, cottonoid count, all were f ine and the time for surgical procedures evaluated, was called. Dictated By: Arpan Min MD WT: OP:FTEE/LIDNA/LATIA Conf#: [id number]#: [id number] Authenticated and Edited by Arpan Min MD On 12/18/18 8:25:17 AM at 0828 PATIENT NAME: STACY THOMPSON [id number] 14:37:00-00:00 [facility] ([facility]) Full Op Note REPORT#:[id number] REPORT STATUS: Signed DATE:12/17/18 TIME: 143 PATIENT: STACY THOMPSON UNIT #: [id number] ROOM/BED: [address] : 88 AGE: 28 SEX: F ATTEND: Chidi Min MD ADM AUTHOR: Arpan Min MD * ALL edits or amendments must be made on the [employer] document * Operative Report ORM Surgeries: Surgery Date and Time: 12/17/2018 0800 Proposed Primary Procedure: ROBOTIC HYSTERECTOM Y XI,MARISOL,TOA([id number]) Proposed Secondary Procedures: CYSTOSCOPY WITH PROCEDURE ENTEROLYSIS OF ADHESIONS Start date: 12/17/18 Start time: 003 Pre-procedure diagnosis: TOA PID RECURRENT TIMES FIVE TWICE INTERVENTIONAL RADIOLOGY DRAIN DIABETES MELLITUS MORBID OBESITY Post-procedure diagnosis: SAME EXTENSIVE BOWEL ADHESIONS AND COLON + DIVERTICUL OSIS DIVERTICULITIS POST ANASTOMOSIS AND RESECTION OF SIGMOID PRETTY BSO PLACEMENT OF MALLICOT DRAIN Procedures performed: OPERATIVE LAPAROSCOPY LUQ + ENTEROLYSIS LAPAROTOMY TAHBSO RESECTION OF SIGMOID COLON + ANASTOMOSIS BLOOD TRANSFUSION 700 CC Technique/Procedure: ABOVE Primary Surgeon: KINDRA MIN Co-surgeon: DR HERRING GENERAL SURGERY DR YBARRA COLON RECTAL SURGEON Lodge Attendant(s): TARUN CURIEL MD SURGICAL ASSISTA NT HELP ON LAPAROTMY; ENTEROLYSIS AND PRETTY BSO AND DIAGNOSES OF COLON D IVERTICULITIS AND ADHESIVE PROCESS AND CLOSURE OF LARGE MIDLINE INCISION Anesthesiologist: DR DUTTON Anesthesia: general anesthesia Indications: PID AND TOA FIVE ADMISSION TWICE INTERVENTIONAL RADIOLOGY DRAIN ADHESIONS SEVERE PELVIC PAIN Operative findings: EXTENSIVE ADHESIONS AND INFL AMATORY CHANGES OF BOWEL, SIGMOID, DIVERTICULOSIS + DIVERTICULITIS AND PARTIAL O BSTRUCTION WITH END TO END ANASTOMOSIS + PRETTY BDO AND MALLICOT DRAIN IN THE VAGINA Complications: none Estimated blood loss in ml's: 700 Blood products: RBC Specimens removed/altered: none (TAHBSO SIGMOID COLON) Cultures sent: No Drain(s)/tube(s): MALLICOT DRAIN IN VAGINAL CUFF Implant(s): none Fluids: 2000 CRYSTALLOIDS Urine output: 300 CLEAR URINE Approach: open Disposition: ICU, stable Recommendations: ICU CONSULT WITH SCOT ENDOCRINE CONSULT DR Deshaun MCKEON INFECTIOUS DISEASE H CHINEDU YBARRA COLO RECTAL SURGEON Counts: Sponge count: correct Instrument count: correct Needle count: correct Cottonoid count: correct Wound class: clean Debridement Procedure Debridement procedure: Time out completed: yes Wound location: abdomen Wound description: drainage (MALICOT DRAIN IN V AGINA) Free Text Op Notes Free Text Op Notes: CONTACTED DR ELLISON TO ADMIT TO ICU DR Deshaun MCKEON ENDOCRNE DR JESÚS CHE ID AND DAPTOMYCIN USE Electronically Signed by Arpan Min MD on at 1452 RPT #:[id number] END OF REPORT 2018-12-17 14:32:00-00:00 [facility] ([facility]) Critical Care Progress Note REPORT#:[id number] REPORT STATUS: Signed DATE:12/17/18 TIME: 1432 PATIENT: STACY THOMPSON UNIT #: [id number] ROOM/BED: [address] : 88 AGE: 28 SEX: F ATTEND: Chidi Min MD ADM AUTHOR: Kristofer Ellison MD * ALL edits or amendments must be made on the el [employer]/computer document * Subjective HPI: The patient has been seen an d examined history, physical, chart and images have been reviewed. Case has been discussed with Dr. Min The patient is a 28-year-old woman G2, P2 with morbid obesity, diabetes mellitus who presented to [facility] with lower a bdominal pain. Pain began about 3 days prior to presentation. A CT was done there showing bilateral ovarian abscesses. She had a laparoscopic hysterectomy laparotomy l ysis of adhesions and proctoscopy and colon resest ion today. she required 2 units of packed red blood cells in the operating room. She is currently in icu, co of nausea, having dr anushka arellano, sore throat and abdominal pain. Past medical history: Morbid obesity, pelvic inflammatory disease including Omar -Ludwin Pedro disease, diabetes mellitus Past surgical history: x2, laparoscopi c appendectomy this April, interventional radiology drainage of tubo-ovaria n abscess and September 2018 Current medications reviewed Drug allergies: Penicillin, Zosyn Social history: She denies tobacco alcohol or dr juan carlos use Family history: Diabetes and cancer Objective General VS/I O Last Documented: Result Date Time Pulse Ox 100 12/17 646 B/P 137/66 12/17 646 Temp 98.5 12/17 646 Pulse 86 12/17 646 Resp 20 12/17 646 B/P Mean 85.0 12/17 338 O2 Delivery Room air 12/17 338 24 hour I O ending at 0700: 12/17 0700 12/16 1900 Intake Total 1150.00 300.00 Output Total 400 Balance 750.00 300.00 Intake, IV 800.00 300.00 Intake, Oral 350 Number 2 Bowel Movements Number Voids 2 3 Output, Urine 400 Medications: Active Meds + DC'd Last 24 Hrs Enoxaparin Sodium 40 MG DAILY SUBQ Dextrose/Lactated Ringer's 1,000 ML ASDIR IV Acetaminophen 1,000 MG Q8H PO Hydromorphone HCl 1 MG Q3H PRN PRN IV Ibuprofen 800 MG Q8H PRN PRN PO Ketorolac Tromethamine 30 MG Q6H IV Metoclopramide HCl 10 MG Q8H PO Sodium Chloride 1,000 ML ASDIR IV Tramadol HCl 50 MG Q6H PO Dexamethasone Sodium Phosphate 0 .STK-MED ONE .R OUTE (DC) Glycopyrrolate 0 .STK-MED ONE .ROUTE (DC) Neostigmine [place] 0 .STK-MED ONE .ROUTE (DC) Ondansetron HCl 0 .STK-MED ONE .ROUTE (DC) Esmolol HCl 0 .STK-MED ONE .ROUTE (DC) Hydromorphone HCl 0 .STK-MED ONE .ROUTE (DC) Rocuronium [place] 5 ML .STK-MED ONE INJ (DC) Fentanyl Citrate 0 .STK-MED ONE .ROUTE (DC) Hydromorphone HCl 0 .STK-MED ONE .ROUTE (DC) Fentanyl Citrate 0 .STK-MED ONE .ROUTE (DC) Hydromorphone HCl 0.5 MG PACU Q5MIN PRN PRN IV ( DC) Meperidine HCl 12.5 MG PACU ASDIR PRN PRN IV (DC ) Morphine Sulfate 4 MG PACU Q15MIN PRN PRN IV (DC ) Ondansetron HCl 4 MG PACU ONCE PRN IV (DC) Promethazine HCl 12.5 MG PACU ONCE PRN IM (DC) Ropivacaine 0 .STK-MED ONE .ROUTE (DC) Bupivacaine HCl/Epinephrine Bitart 0 .STK-MED ON E .ROUTE (DC) Lidocaine HCl 0 .STK-MED ONE .ROUTE (DC) Rocuronium [place] 5 ML .STK-MED ONE INJ (DC) Fentanyl Citrate 0 .STK-MED ONE .ROUTE (DC) Midazolam HCl 0 .STK-MED ONE .ROUTE (DC) Propofol 0 .STK-MED ONE .ROUTE (DC) Glucagon 1 MG ASDIR IM (CKD) Insulin Glargine 50 UNIT DAILY@0700 SUBQ Insulin Human Lispro S/SCALE IF B-199 = 10 UNITS 200-250 = 15 UNITS 251-300 = 20 UNITS 301 OR >301 25 UNITS ASDIR SUBQ Daptomycin 500 MG Q24H IV Sodium Chloride 100 ML Diatrizoate Meglum/Diatrizoate Sod 40 ML ONCE NH N PO Clindamycin Phosphate 50 ML Q8H IV Gentamicin Sulfate 400 MG Q24H IV Sodium Chloride 100 ML Lactated Ringer's 1,000 ML ASDIR IV Acetaminophen 650 MG Q6H PRN PRN PO (DC) Magnesium Hydroxide 30 ML Q8H PRN PRN PO Lactated Ringer's 1,000 ML ASDIR IV Post-op: post surgery rounds Physical Exam General appearance: obese (morbid), resp iratory support (nc o2), alert, awake, oriented, no acute distress, pleasant, conversat ional Head/Eyes: atraumatic, normocephalic, PERRL ENT: moist mucosal membranes Neck: full range of motion, non-tender, normal t hyroid, short thick Cardiovascular: tachycardia, normal heart sounds , normal S1 S2, no murmur, no rub Respiratory/Chest: aerating well, clear to auscu ltation, symmetric expansion Abdomen: abnormal bowel sounds (hypoactive), ten derness, soft, incsion cdi Extremities: moves all, normal capillary refill, normal temperature Neuro/BELT SANDER: alert, oriented X 3, CNII-XII intact Skin: abnormal color, abnormal temperature, absc ess Results Findings/Data: Laboratory Tests 12/17 12/16 12/16 12/16 12/16 0547 2155 1650 1436 1308 Chemistry Creatinine (0.5 - 1.0 mg/dL) 0.9 POC Glucose (65 - 110 mg/dL) 201 H 263 H 286 H 274 H 12/16 12/16 12/15 12/15 1130 0604 1848 1641 Chemistry Sodium (135 - 145 mEq/L) 135 Potassium (3.5 - 5.0 mEq/L) 4.0 Chloride (100 - 115 mEq/L) 100 Carbon Dioxide (22 - 31 mEq/L) 27 Anion Gap (10 - 20) 12.10 BUN (7 - 18 mg/dL) 5 L Creatinine (0.5 - 1.0 mg/dL) 0.7 Glomerular Filtr Rate (>60 ml/min) 98 Glucose (65 - 110 mg/dL) 259 H POC Glucose (65 - 110 mg/dL) 241 H 339 H Calcium (8.4 - 10.2 mg/dL) 8.5 Total Creatine Kinase (26 - 192 Units/L) 60 Laboratory Tests 12/16 1130 Hematology WBC (6.6 - 12.1 K/mm3) 8.2 RBC (3.45 - 5.01 M/mm3) 4.74 Hgb (10.7 - 13.9 g/dL) 11.8 Hct (32.1 - 42.1 %) 38.9 MCV (84.1 - 94.8 fL) 82 L MCH (27 - 35 pg) 24.9 L MCHC (32.2 - 34.1 gm/dL) 30.3 L RDW (12.4 - 16.5 %) 13.4 Plt Count (133 - 385 K/mm3) 373 MPV (9.1 - 12.7 fl) 10.7 Neut % (Auto) (56.5 - 79.4 %) 70.4 Lymph % (Auto) (14.3 - 34.3 %) 18.5 Lassen % (Auto) (5.1 - 10.4 %) 8.2 Eos % (Auto) (0.1 - 3.0 %) 1.7 Baso % (Auto) (0.1 - 1.0 %) 0.7 Neut # (Auto) (K/mm3) 5.7 Lymph # (Auto) (K/mm3) 1.5 Lassen # (Auto) (K/mm3) 0.7 Eos # (Auto) (K/mm3) 0.14 Baso # (Auto) (K/mm3) 0.1 Immature Plt Fraction (0.0 - 10.8 %) 0.0 Laboratory Tests 12/16 1130 Miscellaneous Maternal Serum HCG <1 Laboratory Tests 12/16 1436 Toxicology Random Gentamicin (0 - 14 mcg/mL) 0.8 Laboratory Tests 12/17 314 Urines Urine Color (YELLOW) YELLOW Urine Appearance (CLEAR) Slightly-Cloudy Urine pH (5 - 9) 6.0 Ur Specific [place] (1.001 - 1.035) 1.033 Urine Protein (NEG) NEGATIVE Urine Glucose (UA) (NEG) 3+ H Urine Ketones (NEG) NEGATIVE Urine Blood (NEG) NEG Urine Nitrite (NEG) NEG Urine Bilirubin (NEG) NEGATIVE Urine Urobilinogen (NEG mg/dL) NEGATIVE Ur Leukocyte Esterase (NEG) 2+ H Urine RBC (NONE SEEN #/hpf) 5-10 H Urine WBC (NONE SEEN #/hpf) 20-30 H Ur Epithelial Cells (RARE - FEW #/HPF) MANY H Urine Bacteria (RARE - FEW /HPF) RARE Urine Mucus (NONE SEEN) 2+ Urine HCG, Qual NEGATIVE Laboratory Tests 12/17 12/16 12/16 0547 2155 1650 Chemistry POC Glucose (65 - 110 mg/dL) 201 H 263 H 286 H Laboratory Tests 12/17 314 Urines Urine Color (YELLOW) YELLOW Urine Appearance (CLEAR) Slightly-Cloudy Urine pH (5 - 9) 6.0 Ur Specific [place] (1.001 - 1.035) 1.033 Urine Protein (NEG) NEGATIVE Urine Glucose (UA) (NEG) 3+ H Urine Ketones (NEG) NEGATIVE Urine Blood (NEG) NEG Urine Nitrite (NEG) NEG Urine Bilirubin (NEG) NEGATIVE Urine Urobilinogen (NEG mg/dL) NEGATIVE Ur Leukocyte Esterase (NEG) 2+ H Urine RBC (NONE SEEN #/hpf) 5-10 H Urine WBC (NONE SEEN #/hpf) 20-30 H Ur Epithelial Cells (RARE - FEW #/HPF) MANY H Urine Bacteria (RARE - FEW /HPF) RARE Urine Mucus (NONE SEEN) 2+ Urine HCG, Qual NEGATIVE Microbiology: 12/17 314 URINE: Urine Culture - RECD 12/15 734 NASAL: MRSA Screen - COMP 12/16 419 BLOOD: Blood Culture - RES 12/16 419 BLOOD: Blood Culture Gram Stain - RES 12/15 229 CERVIX: GC DNA Probe - COMP 12/15 229 CERVIX: Chlamydia DNA Probe (SONIA) - C OMP 12/15 229 VAGINAL: Wet Prep - COMP Radiology data Recent Impressions: CAT SCAN - CT HEAD/BRAIN W/O CONT 12/15 0402 Report Impression - Status: SIGNED Entered: 12/15/2018 0430 IMPRESSION: 1. No acute intracranial abnormality. No noncont rast CT evidence of mass, acute hemorrhage or subacute stroke. SL: BRANDIN Impression By: [email or web address] - Paul Barreto M.D. CAT SCAN - CT ABD PELVIS W/CONT 12/16 0918 Report Impression - Status: SIGNED Entered: 12/16/2018 1104 IMPRESSION: Bilateral adnexal masses as described above. The patient gives a history of abscess drainage at [facility] October 05, 019. She describes having drains and drainage bags on either side. The findings in the adnexal region may be sequela of this procedure. Prior images have been requested. Impression By: Sampson Arreola MD Diagnosis, Assessment Plan Hospital course to date: Assessment Tubo-ovarian abscess with diehl bsequent adhesions and postinflammatory changes etc. s/p hysterectomy, salpingo-oophorectomy, lysis o f adhesions, bowel resection Diabetes mellitus w with hyperglycemia Morbid obesity with BMI of 46 post op nausea DVT risk Recommendations and plan if continues w nausea will need ngt chloraseptic spray Continue current antibiotic given her penicillin allergy Glucose control- has been seen by endo, may need insulin drip. 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 POSTOPERATIVE DIAGNOSIS: Tubo-ovarian abscess. PROCEDURES: 1. Laparoscopic lysis of adhesions. 2. Proctoscopy. 3. Enterrorhaphy x 2 SURGEON: Julita Herring MD MANAGER MECHANICAL: TERESA Vasquez ESTIMATED BLOOD LOSS: Blood loss for my portion of the procedure was none. FLUIDS: Please see Dr. Min's report. URINE OUTPUT: Please see Dr. Min's report. SPECIMENS: None for my portion. FINDINGS: Proctoscopy showed rectosigmoid injury . HISTORY: Ms. Thompson is a 28-year-old female with a history of multiple tubo-ovarian abscesses since April 2018. These have been drained; however, the abscesses continued to persist. She desires defi nitive treatment and is therefore undergoing surgery with Dr. Mary porter. I was asked to be available should bowel adhesions be encountered. PROCEDURE IN DETAIL: At the time I arrived in e operating room, the patient was intubated in the low lit hotomy position. Antibiotics had been administered. There was a port in the right upper quadrant, a t the umbilicus, and one in the right mid abdomen and one in the left mid a bdomen. There were omental adhesions to the anterior abdominal wall. I was able to take these down with the Harmonic scalpel. On the posterior aspect o f the uterus, there was a loop of bowel that was very densely adhered to the uterine wall. I was unable to do this laparoscopically and Dr. Min concurred the surgery should be converted to an open procedure. Dr. Min the n performed a midline laparotomy and was able to do a hysterectomy an d bilateral salpingo- PATIENT NAME: STACY THOMPSON [id number] oophorectomy. I scrubbed back into the procedur e at this point and ran the bowel. I ran the bowel from the ligament of Aneudy zenobia to the ileocecal valve. There were two deserosalizations and these were oversewn with 3-0 Lembert silk sutures. I then l ooked at the ileocecal valve and found this to be intact. I then was able to see part of the transverse colon, which appeared to be intact. Movi ng to the descending colon, I was able to trace the descending colon down to the sigmoi d, which then ended abruptly. The end was free floating into the abdomen. This made me concerned for distal sigmoid and upper rectal transection. I then hilario t down below and inserted a proctoscope to 15 cm. Upon withdrawing the proct oscope, the mucosa was normal. I then reinserted the proctoscope. The p ngozi was then filled with fluid and began to insufflate. When we insufflat ed from the proctoscope, there were air bubbles in the fluid indicative o f a bowel injury. The fluid was then suctioned out. This appeared to me to b e a distal sigmoid upper rectal injury. I therefore recommended that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 white count is not necessarily elevated. She estrella s not have a fever. She does not have a left shift of her white count, but sh e does have pain and she has persistent tubo-ovarian abscesses. After 24 to 48 hours, possibly some kind of surgery can be arranged. She will likely need ex tended antibiotics as well as she will have drains. Currently, I have placed t he patient on vancomycin and gentamicin. In the outside Emergency Center, the y gave her vancomycin and Flagyl. Possibly, she may need an infectious dis ease consult. However, at this point, this seems more of a chronic process than an acute process and she does not seem acutely infected nor septic. The patient has diabetes, which does not seem we ll controlled. She has irregular cycles, which soun d anovulatory where she will go extended periods of time without a period and then she will have a h eavy period. I am going to go ahead and check a TSH as well as a hemoglobin A1 c. I have placed her on her Lantus with a diabetic diet with blood sugar mon itoring and sliding scale insulin. Depending on how high her sugars are, i t might be worthwhile to get an endocrine consult. However, her elevated suga rs may simply be a result of the intra- abdominal process that is ongoing. HEad ache, will check CT. Dictated By: Lianet Weir MD WT: HP:FTEE/SABRINA/LATIA Conf#: [id number]/DID#: [id number] Authenticated and Edited by Lianet eWir MD On 12/16/18 8:13:15 AM Electronically Signed by Lianet Weir MD on at 0816 PATIENT NAME: STACY THOMPSON [id number]
[2022-07-27 16:04] VITALS: TEMP 97.9; O2SAT 100
== END 2022-07-27 15:52 | disposition home or self-care (01) ==
LOC: ER 15:38
DX: M79.631 Pain in right forearm (principal)
CPT/HCPCS: 99283

== ENCOUNTER → 2023-03-15 | Emergency (ER) | payer OTHER, SELFPAY ==
[~2023-03-15] MED LIST: KETOROLAC 30 MG/ML INJ ONE; NA CHLORIDE 0.9% 1,000 ML ONE
--- OUTSIDE RECORDS SUMMARY | 2023-03-15 17:45 | XMS REPORT | Continuity of Care Document ---
Author Name Unknown Address [address] [facility] [place] [address] [facility] thconnect Address [address] [facility] [place] [address] Care Team Providers Care Television Audio Engineer Name Role Phone DAVION Pro [facility], [facility] Care Physician Unavailable TAPAN MORROW Attending Clinician Unavailable TAPAN MORROW Attending Clinician Unavailable Marcela Roche Attending Clinician Unavailable ELZBIETA GOMEZ Attending Clinician Unavailable NUZHAT BROWN Attending Clinician Unavailable DAWN CAPELLAN Attending Clinician Unavailable GC_GCBZW_Kadiyaleleanor_Paul Attending Clinician Unavaila ble Doctor Unassigned, Crump Attending Clinician LYDIA Layne Attending Clinician Unavailable Elzbieta Gomez MD Attending Clinician [phone] RADHA DURMMOND Attending Clinician Unavailab RADHA Otero Attending Clinician Unavailab CHANCE Iglesias Attending Clinician Unavailable CHANCE HAMMER Attending Clinician Unavailable Dawn Padilla Attending Clinician [phone], [facility] Attending Clinician Unavailable [facility] Attending Clinician Unavailable Lydia Hoffmann Attending Clinician [phone] Alo Andrade MD Attending Clinician [phone] RYLAN MONTES Attending Clinician Unavailable Pritesh Sun PT Attending Clinician Unavailable JO IGLESIAS Attending Clinician Unavailable Jo Marie Attending Clinician [phone] Unknown, Attending Attending Clinician Unavailab Linda Ball PT Attending Clinician Unavailab NGOZI Farias Attending Clinician Unava ilable Pob, [facility] Main Attending Clinician UnavailRita Webber MD Attending Clinician [phone] Radha Avitia MD Attending Clinician [phone] RADHA AVITIA Attending Clinician Unavailable TYLOR DEVLIN Attending Clinician Unavail able TYLOR DEVLIN Attending Clinician Unavail able JOSSELYN SANCHEZ Attending Clinician Unavailable Only, Isidoro Db Test Attending Clinician UnavailDAWN Fabian Attending Clinician Unavailable Dawn Mattson MD Attending Clinician [phone] GLADYS RAMOS Attending Clinician Unavailable Gladys Ramos PA-C Attending Clinician [phone] ROSANNA BECKMAN Attending Clinician Unavailable Rosanna Beckman MD Attending Clinician [phone] LONG ALONZO Attending Clinician Unavaila Long Mckeon Attending Clinician + [phone] Lab, Ang - Db Attending Clinician Unavailable MICHEAL CALLES Attending Clinician Unavailable Micheal Calles PA-C Attending Clinician [phone] DENAE ROTH Attending Clinician UnavaDenae Andrade MD Attending Clinician + [phone] RITA BARON Attending Clinician Unavailable Angelita Yepez Attending Clinician [phone] ANGELITA WOODALL Attending Clinician Unavailable Daniel ROSS, Josselyn Attending Clinician [phone] Karin Adan OD Attending Clinician [phone] Tabitha LEO, Eve Webster Attending Clinician [phone] FATEMEH DOBSON Attending Clinician Unavailable Olya ROSS, Fatemeh Attending Clinician [phone] EVE SALGADO Attending Clinician Unavaila TRUDY Zaidi Attending Clinician Unavailable Trudy Burnham Attending Clinician [phone] Vince AGUILAR, Idalia Rosa Attending Clinician Nicole Devlin MD, Tylor Gotti Attending Clinician [phone] Linette Cook Attending Clinician [phone] LINETTE RICHARDSON Attending Clinician Unavailable KARIN ADAN Attending Clinician Unavailable JC MASCORRO Attending Clinician Unavailable BETHEL DOHERTY Attending Clinician UnavailLOGAN Walls Attending Clinician Unavaila LOGAN Acosta Attending Clinician Unavaila SEUN Kaur Attending Clinician UnavailLETTY Mayers Attending Clinician Unavailable JANE TELLO Attending Clinician Unavaila MARÍA Silver Attending Clinician Unavailable TAPAN MORROW Admitting Clinician Unavailable GC_GCBZW_Melissa_S Admitting Clinician Unavaila CHANCE Freitas Admitting Clinician Unavailable LYDIA BOLAÑOS Admitting Clinician Unavailable RADHA DRUMMOND Admitting Clinician Unavailab JOESPH Lux Admitting Clinician Unavailable Payers Payer Name Policy Type Policy Number Effective Date Expirati on Date Source [facility] [place] [facility] [id number] 2022 00:00:00 [place] [facility] [id number] 2021 00:00:00 [facility] C1 [id number] [facility] C1 [id number] [facility]1 [id number] [facility] C1 [id number] [facility]1 [id number] [facility] C1 [id number] [facility] C1 [id number] [facility] C1 [id number] [facility] C1 [id number] [facility] C1 [id number] [facility] [place]ICAID [place] [id number] 2019 00:00:00 [facility] [place] [id number] 2019 00:00:00 [facility] Problems Condition Name Condition Details Condition Category Status Onset Date Resolution Date Last Treatment Date Treating Clinician Comments Source Abdominal pain, epigastric Abdominal pain, epigastric Disease Active 10-16 00:00: 00 [facility] Diarrhea, unspecifie d type Diarrhea, unspecifie d type Disease Active 10-16 00:00: 00 [facility] Pain of left hand Pain of left hand Disease Active 03-15 00:00: 00 [facility] Folliculit is Folliculit is Disease Active 2- 00:00: 00 [facility] NAFLD (nonalcoho lic fatty liver disease) NAFLD (nonalcoho lic fatty liver disease) Disease Active 09-10 00:00: 00 [facility] NAFLD (nonalcoho lic fatty liver disease) NAFLD (nonalcoho lic fatty liver disease) Disease Active 09-10 00:00: 00 [facility] Metabolic syndrome Metabolic syndrome Disease Active 10-02 00:00: 00 [facility] Hyperglyce manuel Hyperglyce manuel Problem Active [facility] Hyperlipid emia Hyperlipid emia Problem Active [facility] Allergic rhinitis Allergic rhinitis Problem Active [facility] [id number] Uncontroll ed type 2 diabetes mellitus without complicati on, without long-term current use of insulin Problem Active [facility] Family planning education, guidance, and counseling Family planning education, guidance, and counseling Problem Active [facility] [id number] Abnormal menstrual periods Problem Active [facility] [id number] Pelvic pain Problem Active [facility] [id number] Follow up Problem Active [facility] [id number] Type 2 diabetes mellitus with diabetic neuropathy , unspecifie d Problem Active [facility] [id number] Body mass index (BMI) of 40.0-44.9 in adult Problem Active [facility] [id number] long-term (current) use of insulin Problem Active [facility] [id number] Morbid (severe) obesity due to excess calories Problem Active [facility] [id number] Tubo-ovari an abscess Problem Active [facility] [id number] Uncontroll ed type 2 diabetes mellitus with hyperglyce manuel Problem Active [facility] [id number] History of hysterecto my Problem Active [facility] [id number] Type 2 diabetes mellitus with hyperglyce manuel Problem Active [facility] [id number] Mixed hyperlipid emia Problem Active [facility] [id number] Numbness of left foot Problem Active [facility] PCOS (polycysti c ovarian syndrome) PCOS (polycysti c ovarian syndrome) Disease Active [facility] Allergies, Adverse Reactions, Alerts Allergy Name Allergy Type Status Severity Reaction(s) Onset Date Inactive Date Treating Clinician Comments Source Penicill ins DA Active U 2018-02 00:00: 00 [facility] tazobact am DA Active U 2018-02 00:00: 00 [facility] piperaci llin DA Active U 2018-02 00:00: 00 [facility] PIPERACI LLIN-CLARK OBACTAM DRUG Active High Anaphylaxis 09-29 00:00: 00 [facility] Piperaci llin-Clark obactam Propensi ty to adverse reaction s Active Anaphylaxis 09-29 00:00: 00 [facility] Piperaci llin-Clark obactam Drug Allergy Active Shortness of Breath 09-29 00:00: 00 [facility] Social History Social Habit Start Date Stop Date Quantity Comments Source History of Tobacco Use [facility] Sex Assigned At [facility] History SDOH Alcohol Std Drinks [facility] History SDOH Alcohol Binge [facility] History SDOH Alcohol Comment [facility] Alcohol intake 2022-10-31 00:00:00 2022-10-31 00:00:00 Lifetime non-drinker (finding) [facility] Exposure to SARS-CoV-2 (event) 2022-05-31 00:00:00 2022-06-10 10:25:[address] [facility] Tobacco use and exposure 2022-02-12 00:00:00 2022-02-12 00:00:00 Smokeless tobacco non-user [facility] History of Social function 2022-02-12 00:00:00 2022-02-12 00:00:00 [facility] History SDOH Alcohol Frequency 2018-08-16 00:00:00 2018-08-16 00:00:[address] [facility] Education - What is the highest level of school you have completed or the highest degree you have received? 2018-08-16 00:00:00 2018-08-16 00:00:[address] [facility] History SDOH Financial 2018-08-16 00:00:00 2018-08-16 00:00:[address] [facility] History SDOH Food Worry 2018-08-16 00:00:00 2018-08-16 00:00:[address] [facility] History SDOH Food Scarcity 2018-08-16 00:00:00 2018-08-16 00:00:[address] [facility] History SDOH Transport Med 2018-08-16 00:00:00 2018-08-16 00:00:[address] [facility] History SDOH Transport Non-Med 2018-08-16 00:00:00 2018-08-16 00:00:[address] [facility] Smoking Status Start Date Stop Date Source Never smoked tobacco [facility] Medications Ordered Medication Name Filled Medication Name Start Date Stop Date Current Medication? Ordering Clinician Indication Dosage Frequency Signature (SIG) Comments Components Source insulin aspart RAPID (NOVOLOG U-100 INSULIN ASPART) 100 unit/mL injection 2022-02 0 00:00: 00 Yes [id number] INJECT 20 UNITS UNDER THE SKIN IN THE MORNING AND AT NOON AND IN THE EVENING BEFORE MEALS. [facility] insulin aspart RAPID (NOVOLOG U-100 INSULIN ASPART) 100 unit/mL injection 2022-02 0 00:00: 00 Yes [id number] INJECT 20 UNITS UNDER THE SKIN IN THE MORNING AND AT NOON AND IN THE EVENING BEFORE MEALS. [facility] iopamidol (ISOVUE 370-500 mL) injection 90 mL 11-01 00:00: 00 11-01 00:15 :00 No [id number] 90mL 90 mL, Intravenou s, ONCE, 1 dose, On Thu10/31/22 at 1915, Routine [facility] rifAXIMin 550 mg tablet 10-31 00:00: 00 10-31 00:00 :00 No [id number] 550mg Take 1 tablet by mouth in the morning and 1 tablet at noon and 1 tablet in the evening. Do all this for 14 days. [facility] dicyclomine 20 mg tablet 10-31 00:00: 00 10-31 00:00 :00 No [id number] 20mg Take 1 tablet by mouth 4 (four) times daily for 30 doses. [facility] loperamide 2 mg capsule 10-31 00:00: 00 10-31 00:00 :00 No [id number] 2mg Take 1 capsule by mouth every 4 (four) hours as needed for Diarrhea for up to 3 days. [facility] semaglutide (OZEMPIC) 1 mg/dose (4 mg/3 mL) PnIj 10-22 09:58: 51 10-22 00:00 :00 No 1mg inject 1 mg under the skin weekly. [facility] semaglutide (OZEMPIC) 1 mg/dose (4 mg/3 mL) PnIj 3-0 10-22 09:58: 51 10-22 00:00 :00 No 1mg inject 1 mg [facility] weekly[facility] semaglutide (OZEMPIC) 1 mg/dose (4 mg/3 mL) PnIj 3-0 10-22 09:58: 51 10-22 00:00 :00 No 1mg inject 1 mg under the skin weekly. [facility] it[facility] semaglutide (OZEMPIC) 1 mg/dose (4 mg/3 mL) PnIj 3-0 10-22 09:58: 51 10-22 00:00 :00 No 1mg inject 1 mg under the skin weekly. [facility] semaglutide (OZEMPIC) 1 mg/dose (4 mg/3 mL) PnIj 3-0 10-22 00:00: 00 Yes [id number] 1mg inject 1 mg under the skin weekly. [facility] semaglutide (OZEMPIC) 1 mg/dose (4 mg/3 mL) PnIj 3-0 10-22 00:00: 00 Yes [id number] 1mg inject 1 mg under the skin weekly. [facility] semaglutide (OZEMPIC) 1 mg/dose (4 mg/3 mL) PnIj 3-0 10-22 00:00: 00 Yes [id number] 1mg inject 1 mg under the skin weekly. [facility] ity [facility] semaglutide (OZEMPIC) 1 mg/dose (4 mg/3 mL) PnIj 3-0 10-22 00:00: 00 Yes [id number] 1mg inject 1 mg under the skin weekly. [facility] ity [facility] semaglutide (OZEMPIC) 1 mg/dose (4 mg/3 mL) PnIj 3-0 10-22 00:00: 00 Yes [id number] 1mg inject 1 mg under the skin weekly. [facility] semaglutide (OZEMPIC) 1 mg/dose (4 mg/3 mL) PnIj 2023-0 10-22 00:00: 00 Yes [id number] 1mg inject 1 mg under the skin weekly. [facility] it[facility] semaglutide (OZEMPIC) 1 mg/dose (4 mg/3 mL) PnIj 2022-0 10-16 13:16: 20 Yes 1mg inject 1 mg under the skin weekly. [facility] it[facility] semaglutide (OZEMPIC) 1 mg/dose (4 mg/3 mL) PnIj 0 10-16 13:16: 20 Yes 1mg inject 1 mg under the skin weekly. [facility] it[facility] semaglutide (OZEMPIC) 1 mg/dose (4 mg/3 mL) PnIj 2022-0 10-16 13:16: 20 Yes 1mg inject 1 mg under the skin weekly. [facility] it[facility] semaglutide (OZEMPIC) 1 mg/dose (4 mg/3 mL) PnIj 2022-0 10-16 13:16: 20 Yes 1mg inject 1 mg under the skin weekly. [facility] it[facility] semaglutide (OZEMPIC) 1 mg/dose (4 mg/3 mL) Ij 2022-0 10-16 13:16: 20 Yes 1mg inject 1 mg under the skin weekly. [facility] it[facility] semaglutide (OZEMPIC) 1 mg/dose (4 mg/3 mL) Ij 2022-0 10-16 13:16: 20 Yes 1mg inject 1 mg under the skin weekly. [facility] peg-electro lyte soln 236-22.74-6 .74 -5.86 gram solution 0 10-16 00:00: 00 Yes [id number] Take as directed before colonoscop y [facility] peg-electro lyte soln 236-22.74-6 .74 -5.86 gram solution 2022-0 10-16 00:00: 00 Yes [id number] Take as directed before colonoscop y [facility] it[facility] peg-electro lyte soln 236-22.74-6 .74 -5.86 gram solution 2022-0 10-16 00:00: 00 Yes [id number] Take as directed before colonoscop y [facility] it[facility] peg-electro lyte soln 236-22.74-6 .74 -5.86 gram solution 10-16 00:00: 00 Yes [id number] Take as directed before colonoscop y [facility] peg-electro lyte soln 236-22.74-6 .74 -5.86 gram solution 10-16 00:00: 00 Yes [id number] Take as directed before colonoscop y [facility] peg-electro lyte soln 236-22.74-6 .74 -5.86 gram solution 10-16 00:00: 00 Yes [id number] Take as directed before colonoscop y [facility] peg-electro lyte soln 236-22.74-6 .74 -5.86 gram solution 10-16 00:00: 00 Yes [id number] Take as directed before colonoscop y [facility] peg-electro lyte soln 236-22.74-6 .74 -5.86 gram solution 10-16 00:00: 00 Yes [id number] Take as directed before colonoscop y [facility] peg-electro lyte soln 236-22.74-6 .74 -5.86 gram solution 10-16 00:00: 00 Yes [id number] Take as directed before colonoscop y [facility] peg-electro lyte soln 236-22.74-6 .74 -5.86 gram solution 10-16 00:00: 00 Yes [id number] Take as directed before colonoscop y [facility] peg-electro lyte soln 236-22.74-6 .74 -5.86 gram solution 10-16 00:00: 00 Yes [id number] Take as directed before colonoscop y [facility] peg-electro lyte soln 236-22.74-6 .74 -5.86 gram solution 10-16 00:00: 00 Yes [id number] Take as directed before colonoscop y [facility] peg-electro lyte soln 236-22.74-6 .74 -5.86 gram solution 10-16 00:00: 00 Yes [id number] Take as directed before colonoscop y [facility] DICLOFENAC SODIUM 1 % gel 3-0 8-16 00:00: 00 Yes [id number] TAKE 2-4 GRAMS THREE TIMES A DAY NEEDED FOR PAIN [facility] DICLOFENAC SODIUM 1 % gel 2023-0 8-16 00:00: 00 Yes [id number] TAKE 2-4 GRAMS THREE TIMES A DAY NEEDED FOR PAIN [facility] DICLOFENAC SODIUM 1 % gel 3-0 8-16 00:00: 00 Yes [id number] TAKE 2-4 GRAMS THREE TIMES A DAY NEEDED FOR PAIN [facility] DICLOFENAC SODIUM 1 % gel 3-0 8-16 00:00: 00 Yes [id number] TAKE 2-4 GRAMS THREE TIMES A DAY NEEDED FOR PAIN [facility] DICLOFENAC SODIUM 1 % gel 2023-0 8-16 00:00: 00 Yes [id number] TAKE 2-4 GRAMS THREE TIMES A DAY NEEDED FOR PAIN [facility] DICLOFENAC SODIUM 1 % gel 3-0 8-16 00:00: 00 Yes [id number] TAKE 2-4 GRAMS THREE TIMES A DAY NEEDED FOR PAIN [facility] DICLOFENAC SODIUM 1 % gel 3-0 8-16 00:00: 00 Yes [id number] TAKE 2-4 GRAMS THREE TIMES A DAY NEEDED FOR PAIN [facility] DICLOFENAC SODIUM 1 % gel 3-0 8-16 00:00: 00 Yes [id number] TAKE 2-4 GRAMS THREE TIMES A DAY NEEDED FOR PAIN [facility] DICLOFENAC SODIUM 1 % gel 3-0 8-16 00:00: 00 Yes [id number] TAKE 2-4 GRAMS THREE TIMES A DAY NEEDED FOR PAIN [facility] DICLOFENAC SODIUM 1 % gel 2023-0 8-16 00:00: 00 Yes [id number] TAKE 2-4 GRAMS THREE TIMES A DAY NEEDED FOR PAIN [facility] DICLOFENAC SODIUM 1 % gel 2023-0 8-16 00:00: 00 Yes [id number] TAKE 2-4 GRAMS THREE TIMES A DAY NEEDED FOR PAIN [facility] DICLOFENAC SODIUM 1 % gel 2023-0 8-16 00:00: 00 Yes [id number] TAKE 2-4 GRAMS THREE TIMES A DAY NEEDED FOR PAIN [facility] DICLOFENAC SODIUM 1 % gel 3-0 8-16 00:00: 00 Yes [id number] TAKE 2-4 GRAMS THREE TIMES A DAY NEEDED FOR PAIN [facility] DICLOFENAC SODIUM 1 % gel 3-0 8-16 00:00: 00 Yes [id number] TAKE 2-4 GRAMS THREE TIMES A DAY NEEDED FOR PAIN [facility] DICLOFENAC SODIUM 1 % gel 3-0 8-16 00:00: 00 Yes [id number] TAKE 2-4 GRAMS THREE TIMES A DAY NEEDED FOR PAIN [facility] DICLOFENAC SODIUM 1 % gel 3-0 8-16 00:00: 00 Yes [id number] TAKE 2-4 GRAMS THREE TIMES A DAY NEEDED FOR PAIN [facility] DICLOFENAC SODIUM 1 % gel 3-0 8-16 00:00: 00 Yes [id number] TAKE 2-4 GRAMS THREE TIMES A DAY NEEDED FOR PAIN [facility] DICLOFENAC SODIUM 1 % gel 3-0 8-16 00:00: 00 Yes [id number] TAKE 2-4 GRAMS THREE TIMES A DAY NEEDED FOR PAIN [facility] DICLOFENAC SODIUM 1 % gel 3-0 8-16 00:00: 00 Yes [id number] TAKE 2-4 GRAMS THREE TIMES A DAY NEEDED FOR PAIN [facility] DICLOFENAC SODIUM 1 % gel 3-0 -16 00:00: 00 Yes [id number] TAKE 2-4 GRAMS THREE TIMES A DAY NEEDED FOR PAIN [facility] DICLOFENAC SODIUM 1 % gel 3-0 -16 00:00: 00 Yes [id number] TAKE 2-4 GRAMS THREE TIMES A DAY NEEDED FOR PAIN [facility] barium sulfate (E-Z-HD BARIUM) 98 % oral suspension 135 mL 09-10 19:00: 00 09-10 18:15 :00 No [id number] 135mL 135 mL, Oral, ONCE, 1 dose, On Thu09/10/22 at 1400, Routine [facility] barium sulfate (LIQUID E-Z PAQUE) 60 % (w/v) oral suspension 355 mL 09-10 19:00: 00 09-10 18:15 :00 No [id number] 355mL 355 mL, Oral, ONCE, 1 dose, On Thu09/10/22 at 1400, Routine [facility] sod bicarb-citr ic ac-simeth (E-Z-GAS II) 2.21-1.53 gram/4 gram packet 1 Packet 09-10 19:00: 00 09-10 18:15 :00 No [id number] 1{packe t} 1 Packet, Oral, ONCE, 1 dose, On Thu09/10/22 at 1400, Routine [facility] azithromyci n 250 mg tablet 09-03 13:03: 41 09-03 00:00 :00 No 2 tablets on the first day, then 1 tablet daily for 4 days Orally Once a day for 5 day(s) [facility] azithromyci n 250 mg tablet 09-03 13:03: 41 09-03 00:00 :00 No 2 tablets on the first day, then 1 tablet daily for 4 days Orally Once a day for 5 day(s) [facility] azithromyci n 250 mg tablet 09-03 13:03: 41 09-03 00:00 :00 No 2 tablets on the first day, then 1 tablet daily for 4 days Orally Once a day for 5 day(s) [facility] azithromyci n 250 mg tablet 09-02 16:26: 50 Yes 2 tablets on the first day, then 1 tablet daily for 4 days Orally Once a day for 5 day(s) [facility] drospirenon e-ethinyl estradioL (LORYNA, 28,) 3-0.02 mg per tablet 09-02 16:26: 50 Yes 1 tablet Orally Once a day [facility] gabapentin 300 mg capsule 09-02 16:26: 50 Yes 300mg 1 capsule. [facility] Insulin Glargine (LANTUS SOLOSTAR U-100 INSULIN) 100 unit/mL (3 mL) injection 09-02 16:26: 50 Yes 74 units and increase by 2 units every 2 days until fbg less 120 ( max of 80 units daily) Subcutaneo us once daily for 30 days [facility] lisinopriL 20 mg tablet 09-02 16:26: 50 Yes 1 tablet Orally Once a day [facility] metFORMIN 500 mg tablet 09-02 16:26: 50 Yes 1 tablet with meals Orally Twice a day [facility] drospirenon e-ethinyl estradioL (LORYNA, ,) 3-0.02 mg per tablet 09-02 16:26: 50 Yes 1 tablet Orally Once a day [facility] gabapentin 300 mg capsule 09-02 16:26: 50 Yes 300mg 1 capsule. [facility] Insulin Glargine (LANTUS SOLOSTAR U-100 INSULIN) 100 unit/mL (3 mL) injection 09-02 16:26: 50 Yes 74 units and increase by 2 units every 2 days until fbg less 120 ( max of 80 units daily) Subcutaneo us once daily for 30 days [facility] lisinopriL 20 mg tablet 09-02 16:26: 50 Yes 1 tablet Orally Once a day [facility] metFORMIN 500 mg tablet 09-02 16:26: 50 Yes 1 tablet with meals Orally Twice a day [facility] drospirenon e-ethinyl estradioL (LORYNA, 28,) 3-0.02 mg per tablet 09-02 16:26: 50 Yes 1 tablet Orally Once a day [facility] gabapentin 300 mg capsule 09-02 16:26: 50 Yes 300mg 1 capsule. [facility] Insulin Glargine (LANTUS SOLOSTAR U-100 INSULIN) 100 unit/mL (3 mL) injection 09-02 16:26: 50 Yes 74 units and increase by 2 units every 2 days until fbg less 120 ( max of 80 units daily) Subcutaneo us once daily for 30 days [facility] lisinopriL 20 mg tablet 09-02 16:26: 50 Yes 1 tablet Orally Once a day [facility] [facility] 500 mg tablet 09-02 16:26: 50 Yes 1 tablet with meals Orally Twice a day [facility] drospirenon e-ethinyl estradioL (LORYNA, 28,) 3-0.02 mg per tablet 09-02 16:26: 50 Yes 1 tablet Orally Once a day [facility] gabapentin 300 mg capsule 09-02 16:26: 50 Yes 300mg 1 capsule. [facility] Insulin Glargine (LANTUS SOLOSTAR U-100 INSULIN) 100 unit/mL (3 mL) injection 09-02 16:26: 50 Yes 74 units and increase by 2 units every 2 days until fbg less 120 ( max of 80 units daily) Subcutaneo us once daily for 30 days [facility] lisinopriL 20 mg tablet 09-02 16:26: 50 Yes 1 tablet Orally Once a day [facility] metFORMIN 500 mg tablet 09-02 16:26: 50 Yes 1 tablet with meals Orally Twice a day [facility] drospirenon e-ethinyl estradioL (LORYNA, 28,) 3-0.02 mg per tablet 09-02 16:26: 50 Yes 1 tablet Orally Once a day [facility] gabapentin 300 mg capsule 09-02 16:26: 50 Yes 300mg 1 capsule. [facility] Insulin Glargine (LANTUS SOLOSTAR U-100 INSULIN) 100 unit/mL (3 mL) injection 09-02 16:26: 50 Yes 74 units and increase by 2 units every 2 days until fbg less 120 ( max of 80 units daily) Subcutaneo us once daily for 30 days [facility] lisinopriL 20 mg tablet 09-02 16:26: 50 Yes 1 tablet Orally Once a day [facility] metFORMIN 500 mg tablet 09-02 16:26: 50 Yes 1 tablet with meals Orally Twice a day [facility] drospirenon e-ethinyl estradioL (LORYNA, 28,) 3-0.02 mg per tablet 09-02 16:26: 50 Yes 1 tablet Orally Once a day [facility] gabapentin 300 mg capsule 09-02 16:26: 50 Yes 300mg 1 capsule. [facility] Insulin Glargine (LANTUS SOLOSTAR U-100 INSULIN) 100 unit/mL (3 mL) injection 09-02 16:26: 50 Yes 74 units and increase by 2 units every 2 days until fbg less 120 ( max of 80 units daily) Subcutaneo us once daily for 30 days [facility] lisinopriL 20 mg tablet 09-02 16:26: 50 Yes 1 tablet Orally Once a day [facility] metFORMIN 500 mg tablet 09-02 16:26: 50 Yes 1 tablet with meals Orally Twice a day [facility] drospirenon e-ethinyl estradioL ([facility], ,) 3-0.02 mg per tablet 09-02 16:26: 50 Yes 1 tablet Orally Once a day [facility] gabapentin 300 mg capsule 09-02 16:26: 50 Yes 300mg 1 capsule. [facility] Insulin Glargine (LANTUS SOLOSTAR U-100 INSULIN) 100 unit/mL (3 mL) injection 09-02 16:26: 50 Yes 74 units and increase by 2 units every 2 days until fbg less 120 ( max of 80 units daily) Subcutaneo us once daily for 30 days [facility] lisinopriL 20 mg tablet 09-02 16:26: 50 Yes 1 tablet Orally Once a day [facility] metFORMIN 500 mg tablet 09-02 16:26: 50 Yes 1 tablet with meals Orally Twice a day [facility] drospirenon e-ethinyl estradioL (LORYNA, 28,) 3-0.02 mg per tablet 09-02 16:26: 50 Yes 1 tablet Orally Once a day [facility] gabapentin 300 mg capsule 09-02 16:26: 50 Yes 300mg 1 capsule. [facility] Insulin Glargine (LANTUS SOLOSTAR U-100 INSULIN) 100 unit/mL (3 mL) injection 09-02 16:26: 50 Yes 74 units and increase by 2 units every 2 days until fbg less 120 ( max of 80 units daily) Subcutaneo us once daily for 30 days [facility] lisinopriL 20 mg tablet 09-02 16:26: 50 Yes 1 tablet Orally Once a day [facility] metFORMIN 500 mg tablet 09-02 16:26: 50 Yes 1 tablet with meals Orally Twice a day [facility] drospirenon e-ethinyl estradioL (LORYNA, 28,) 3-0.02 mg per tablet 09-02 16:26: 50 Yes 1 tablet Orally Once a day [facility] gabapentin 300 mg capsule 09-02 16:26: 50 Yes 300mg 1 capsule. [facility] Insulin Glargine (LANTUS SOLOSTAR U-100 INSULIN) 100 unit/mL (3 mL) injection 09-02 16:26: 50 Yes 74 units and increase by 2 units every 2 days until fbg less 120 ( max of 80 units daily) Subcutaneo us once daily for 30 days [facility] lisinopriL 20 mg tablet 09-02 16:26: 50 Yes 1 tablet Orally Once a day [facility] metFORMIN 500 mg tablet 09-02 16:26: 50 Yes 1 tablet with meals Orally Twice a day [facility] drospirenon e-ethinyl estradioL (LORYNA, 28,) 3-0.02 mg per tablet 09-02 16:26: 50 Yes 1 tablet Orally Once a day [facility] gabapentin 300 mg capsule 09-02 16:26: 50 Yes 300mg 1 capsule. [facility] Insulin Glargine (LANTUS SOLOSTAR U-100 INSULIN) 100 unit/mL (3 mL) injection 09-02 16:26: 50 Yes 74 units and increase by 2 units every 2 days until fbg less 120 ( max of 80 units daily) Subcutaneo us once daily for 30 days [facility] lisinopriL 20 mg tablet 09-02 16:26: 50 Yes 1 tablet Orally Once a day [facility] metFORMIN 500 mg tablet 09-02 16:26: 50 Yes 1 tablet with meals Orally Twice a day [facility] drospirenon e-ethinyl estradioL (LORYNA, ,) 3-0.02 mg per tablet 09-02 16:26: 50 Yes 1 tablet Orally Once a day [facility] gabapentin 300 mg capsule 09-02 16:26: 50 Yes 300mg 1 capsule. [facility] Insulin Glargine (LANTUS SOLOSTAR U-100 INSULIN) 100 unit/mL (3 mL) injection 09-02 16:26: 50 Yes 74 units and increase by 2 units every 2 days until fbg less 120 ( max of 80 units daily) Subcutaneo us once daily for 30 days [facility] lisinopriL 20 mg tablet 09-02 16:26: 50 Yes 1 tablet Orally Once a day [facility] metFORMIN 500 mg tablet 09-02 16:26: 50 Yes 1 tablet with meals Orally Twice a day [facility] drospirenon e-ethinyl estradioL (LORYNA, 28,) 3-0.02 mg per tablet 09-02 16:26: 50 Yes 1 tablet Orally Once a day [facility] gabapentin 300 mg capsule 09-02 16:26: 50 Yes 300mg 1 capsule. [facility] Insulin Glargine (LANTUS SOLOSTAR U-100 INSULIN) 100 unit/mL (3 mL) injection 09-02 16:26: 50 Yes 74 units and increase by 2 units every 2 days until fbg less 120 ( max of 80 units daily) Subcutaneo us once daily for 30 days [facility] lisinopriL 20 mg tablet 09-02 16:26: 50 Yes 1 tablet Orally Once a day [facility] metFORMIN 500 mg tablet 09-02 16:26: 50 Yes 1 tablet with meals Orally Twice a day [facility] drospirenon e-ethinyl estradioL (LORYNA, 28,) 3-0.02 mg per tablet 09-02 16:26: 50 Yes 1 tablet Orally Once a day [facility] gabapentin 300 mg capsule 09-02 16:26: 50 Yes 300mg 1 capsule. [facility] Insulin Glargine (LANTUS SOLOSTAR U-100 INSULIN) 100 unit/mL (3 mL) injection 09-02 16:26: 50 Yes 74 units and increase by 2 units every 2 days until fbg less 120 ( max of 80 units daily) Subcutaneo us once daily for 30 days [facility] lisinopriL 20 mg tablet 09-02 16:26: 50 Yes 1 tablet Orally Once a day [facility] metFORMIN 500 mg tablet 09-02 16:26: 50 Yes 1 tablet with meals Orally Twice a day [facility] drospirenon e-ethinyl estradioL (LORYNA, 28,) 3-0.02 mg per tablet 09-02 16:26: 50 Yes 1 tablet Orally Once a day [facility] gabapentin 300 mg capsule 09-02 16:26: 50 Yes 300mg 1 capsule. [facility] Insulin Glargine (LANTUS SOLOSTAR U-100 INSULIN) 100 unit/mL (3 mL) injection 09-02 16:26: 50 Yes 74 units and increase by 2 units every 2 days until fbg less 120 ( max of 80 units daily) Subcutaneo us once daily for 30 days [facility] lisinopriL 20 mg tablet 09-02 16:26: 50 Yes 1 tablet Orally Once a day [facility] metFORMIN 500 mg tablet 09-02 16:26: 50 Yes 1 tablet with meals Orally Twice a day [facility] drospirenon e-ethinyl estradioL (LORYNA, ,) 3-0.02 mg per tablet 09-02 16:26: 50 Yes 1 tablet Orally Once a day [facility] gabapentin 300 mg capsule 09-02 16:26: 50 Yes 300mg 1 capsule. [facility] Insulin Glargine (LANTUS SOLOSTAR U-100 INSULIN) 100 unit/mL (3 mL) injection 09-02 16:26: 50 Yes 74 units and increase by 2 units every 2 days until fbg less 120 ( max of 80 units daily) Subcutaneo us once daily for 30 days [facility] lisinopriL 20 mg tablet 09-02 16:26: 50 Yes 1 tablet Orally Once a day [facility] metFORMIN 500 mg tablet 09-02 16:26: 50 Yes 1 tablet with meals Orally Twice a day [facility] drospirenon e-ethinyl estradioL (LORYNA, ,) 3-0.02 mg per tablet 09-02 16:26: 50 Yes 1 tablet Orally Once a day [facility] gabapentin 300 mg capsule 09-02 16:26: 50 Yes 300mg 1 capsule. [facility] Insulin Glargine (LANTUS SOLOSTAR U-100 INSULIN) 100 unit/mL (3 mL) injection 09-02 16:26: 50 Yes 74 units and increase by 2 units every 2 days until fbg less 120 ( max of 80 units daily) Subcutaneo us once daily for 30 days [facility] lisinopriL 20 mg tablet 09-02 16:26: 50 Yes 1 tablet Orally Once a day [facility] metFORMIN 500 mg tablet 09-02 16:26: 50 Yes 1 tablet with meals Orally Twice a day [facility] drospirenon e-ethinyl estradioL (LORYNA, 28,) 3-0.02 mg per tablet 09-02 16:26: 50 Yes 1 tablet Orally Once a day [facility] gabapentin 300 mg capsule 09-02 16:26: 50 Yes 300mg 1 capsule. [facility] Insulin Glargine (LANTUS SOLOSTAR U-100 INSULIN) 100 unit/mL (3 mL) injection 09-02 16:26: 50 Yes 74 units and increase by 2 units every 2 days until fbg less 120 ( max of 80 units daily) Subcutaneo us once daily for 30 days [facility] lisinopriL 20 mg tablet 09-02 16:26: 50 Yes 1 tablet Orally Once a day [facility] metFORMIN 500 mg tablet 09-02 16:26: 50 Yes 1 tablet with meals Orally Twice a day [facility] drospirenon e-ethinyl estradioL ([facility], ,) 3-0.02 mg per tablet 09-02 16:26: 50 Yes 1 tablet Orally Once a day [facility] gabapentin 300 mg capsule 09-02 16:26: 50 Yes 300mg 1 capsule. [facility] Insulin Glargine (LANTUS SOLOSTAR U-100 INSULIN) 100 unit/mL (3 mL) injection 09-02 16:26: 50 Yes 74 units and increase by 2 units every 2 days until fbg less 120 ( max of 80 units daily) Subcutaneo us once daily for 30 days [facility] lisinopriL 20 mg tablet 09-02 16:26: 50 Yes 1 tablet Orally Once a day [facility] metFORMIN 500 mg tablet 09-02 16:26: 50 Yes 1 tablet with meals Orally Twice a day [facility] drospirenon e-ethinyl estradioL (LORYNA, ,) 3-0.02 mg per tablet 09-02 16:26: 50 Yes 1 tablet Orally Once a day [facility] gabapentin 300 mg capsule 09-02 16:26: 50 Yes 300mg 1 capsule. [facility] Insulin Glargine (LANTUS SOLOSTAR U-100 INSULIN) 100 unit/mL (3 mL) injection 09-02 16:26: 50 Yes 74 units and increase by 2 units every 2 days until fbg less 120 ( max of 80 units daily) Subcutaneo us once daily for 30 days [facility] lisinopriL 20 mg tablet 09-02 16:26: 50 Yes 1 tablet Orally Once a day [facility] metFORMIN 500 mg tablet 09-02 16:26: 50 Yes 1 tablet with meals Orally Twice a day [facility] drospirenon e-ethinyl estradioL (LORYNA, 28,) 3-0.02 mg per tablet 09-02 16:26: 50 Yes 1 tablet Orally Once a day [facility] gabapentin 300 mg capsule 09-02 16:26: 50 Yes 300mg 1 capsule. [facility] Insulin Glargine (LANTUS SOLOSTAR U-100 INSULIN) 100 unit/mL (3 mL) injection 09-02 16:26: 50 Yes 74 units and increase by 2 units every 2 days until fbg less 120 ( max of 80 units daily) Subcutaneo us once daily for 30 days [facility] lisinopriL 20 mg tablet 09-02 16:26: 50 Yes 1 tablet Orally Once a day [facility] metFORMIN 500 mg tablet 09-02 16:26: 50 Yes 1 tablet with meals Orally Twice a day [facility] drospirenon e-ethinyl estradioL (LORYNA, 28,) 3-0.02 mg per tablet 09-02 16:26: 50 Yes 1 tablet Orally Once a day [facility] gabapentin 300 mg capsule 09-02 16:26: 50 Yes 300mg 1 capsule. [facility] Insulin Glargine (LANTUS SOLOSTAR U-100 INSULIN) 100 unit/mL (3 mL) injection 09-02 16:26: 50 Yes 74 units and increase by 2 units every 2 days until fbg less 120 ( max of 80 units daily) Subcutaneo us once daily for 30 days [facility] lisinopriL 20 mg tablet 09-02 16:26: 50 Yes 1 tablet Orally Once a day [facility] metFORMIN 500 mg tablet 09-02 16:26: 50 Yes 1 tablet with meals Orally Twice a day [facility] drospirenon e-ethinyl estradioL (LORYNA, ,) 3-0.02 mg per tablet 09-02 16:26: 50 Yes 1 tablet Orally Once a day [facility] gabapentin 300 mg capsule 09-02 16:26: 50 Yes 300mg 1 capsule. [facility] Insulin Glargine (LANTUS SOLOSTAR U-100 INSULIN) 100 unit/mL (3 mL) injection 09-02 16:26: 50 Yes 74 units and increase by 2 units every 2 days until fbg less 120 ( max of 80 units daily) Subcutaneo us once daily for 30 days [facility] lisinopriL 20 mg tablet 09-02 16:26: 50 Yes 1 tablet Orally Once a day [facility] metFORMIN 500 mg tablet 09-02 16:26: 50 Yes 1 tablet with meals Orally Twice a day [facility] drospirenon e-ethinyl estradioL (LORYNA, 28,) 3-0.02 mg per tablet 09-02 16:26: 50 Yes 1 tablet Orally Once a day [facility] gabapentin 300 mg capsule 09-02 16:26: 50 Yes 300mg 1 capsule. [facility] Insulin Glargine (LANTUS SOLOSTAR U-100 INSULIN) 100 unit/mL (3 mL) injection 09-02 16:26: 50 Yes 74 units and increase by 2 units every 2 days until fbg less 120 ( max of 80 units daily) Subcutaneo us once daily for 30 days [facility] lisinopriL 20 mg tablet 09-02 16:26: 50 Yes 1 tablet Orally Once a day [facility] metFORMIN 500 mg tablet 09-02 16:26: 50 Yes 1 tablet with meals Orally Twice a day [facility] drospirenon e-ethinyl estradioL (LORYNA, 28,) 3-0.02 mg per tablet 09-02 16:26: 50 Yes 1 tablet Orally Once a day [facility] gabapentin 300 mg capsule 09-02 16:26: 50 Yes 300mg 1 capsule. [facility] Insulin Glargine (LANTUS SOLOSTAR U-100 INSULIN) 100 unit/mL (3 mL) injection 09-02 16:26: 50 Yes 74 units and increase by 2 units every 2 days until fbg less 120 ( max of 80 units daily) Subcutaneo us once daily for 30 days [facility] lisinopriL 20 mg tablet 09-02 16:26: 50 Yes 1 tablet Orally Once a day [facility] metFORMIN 500 mg tablet 09-02 16:26: 50 Yes 1 tablet with meals Orally Twice a day [facility] drospirenon e-ethinyl estradioL (LORYNA, 28,) 3-0.02 mg per tablet 09-02 16:26: 50 Yes 1 tablet Orally Once a day [facility] gabapentin 300 mg capsule 09-02 16:26: 50 Yes 300mg 1 capsule. [facility] Insulin Glargine (LANTUS SOLOSTAR U-100 INSULIN) 100 unit/mL (3 mL) injection 09-02 16:26: 50 Yes 74 units and increase by 2 units every 2 days until fbg less 120 ( max of 80 units daily) Subcutaneo us once daily for 30 days [facility] lisinopriL 20 mg tablet 09-02 16:26: 50 Yes 1 tablet Orally Once a day [facility] metFORMIN 500 mg tablet 09-02 16:26: 50 Yes 1 tablet with meals Orally Twice a day [facility] drospirenon e-ethinyl estradioL (LORYNA, 28,) 3-0.02 mg per tablet 09-02 16:26: 50 Yes 1 tablet Orally Once a day [facility] gabapentin 300 mg capsule 09-02 16:26: 50 Yes 300mg 1 capsule. [facility] Insulin Glargine (LANTUS SOLOSTAR U-100 INSULIN) 100 unit/mL (3 mL) injection 09-02 16:26: 50 Yes 74 units and increase by 2 units every 2 days until fbg less 120 ( max of 80 units daily) Subcutaneo us once daily for 30 days [facility] lisinopriL 20 mg tablet 09-02 16:26: 50 Yes 1 tablet Orally Once a day [facility] metFORMIN 500 mg tablet 09-02 16:26: 50 Yes 1 tablet with meals Orally Twice a day [facility] drospirenon e-ethinyl estradioL ([facility], ,) 3-0.02 mg per tablet 09-02 16:26: 50 Yes 1 tablet Orally Once a day [facility] gabapentin 300 mg capsule 09-02 16:26: 50 Yes 300mg 1 capsule. [facility] Insulin Glargine (LANTUS SOLOSTAR U-100 INSULIN) 100 unit/mL (3 mL) injection 09-02 16:26: 50 Yes 74 units and increase by 2 units every 2 days until fbg less 120 ( max of 80 units daily) Subcutaneo us once daily for 30 days [facility] lisinopriL 20 mg tablet 09-02 16:26: 50 Yes 1 tablet Orally Once a day [facility] metFORMIN 500 mg tablet 09-02 16:26: 50 Yes 1 tablet with meals Orally Twice a day [facility] drospirenon e-ethinyl estradioL (LORYNA, 28,) 3-0.02 mg per tablet 09-02 16:26: 50 Yes 1 tablet Orally Once a day [facility] gabapentin 300 mg capsule 09-02 16:26: 50 Yes 300mg 1 capsule. [facility] Insulin Glargine (LANTUS SOLOSTAR U-100 INSULIN) 100 unit/mL (3 mL) injection 09-02 16:26: 50 Yes 74 units and increase by 2 units every 2 days until fbg less 120 ( max of 80 units daily) Subcutaneo us once daily for 30 days [facility] lisinopriL 20 mg tablet 09-02 16:26: 50 Yes 1 tablet Orally Once a day [facility] metFORMIN 500 mg tablet 09-02 16:26: 50 Yes 1 tablet with meals Orally Twice a day [facility] drospirenon e-ethinyl estradioL (LORYNA, 28,) 3-0.02 mg per tablet 09-02 16:26: 50 Yes 1 tablet Orally Once a day [facility] gabapentin 300 mg capsule 09-02 16:26: 50 Yes 300mg 1 capsule. [facility] Insulin Glargine (LANTUS SOLOSTAR U-100 INSULIN) 100 unit/mL (3 mL) injection 09-02 16:26: 50 Yes 74 units and increase by 2 units every 2 days until fbg less 120 ( max of 80 units daily) Subcutaneo us once daily for 30 days [facility] lisinopriL 20 mg tablet 09-02 16:26: 50 Yes 1 tablet Orally Once a day [facility] metFORMIN 500 mg tablet 09-02 16:26: 50 Yes 1 tablet with meals Orally Twice a day [facility] drospirenon e-ethinyl estradioL (LORYNA, 28,) 3-0.02 mg per tablet 09-02 16:26: 50 Yes 1 tablet Orally Once a day [facility] gabapentin 300 mg capsule 09-02 16:26: 50 Yes 300mg 1 capsule. [facility] Insulin Glargine (LANTUS SOLOSTAR U-100 INSULIN) 100 unit/mL (3 mL) injection 09-02 16:26: 50 Yes 74 units and increase by 2 units every 2 days until fbg less 120 ( max of 80 units daily) Subcutaneo us once daily for 30 days [facility] lisinopriL 20 mg tablet 09-02 16:26: 50 Yes 1 tablet Orally Once a day [facility] metFORMIN 500 mg tablet 09-02 16:26: 50 Yes 1 tablet with meals Orally Twice a day [facility] drospirenon e-ethinyl estradioL (LORYNA, 28,) 3-0.02 mg per tablet 09-02 16:26: 50 Yes 1 tablet Orally Once a day [facility] gabapentin 300 mg capsule 09-02 16:26: 50 Yes 300mg 1 capsule. [facility] Insulin Glargine (LANTUS SOLOSTAR U-100 INSULIN) 100 unit/mL (3 mL) injection 09-02 16:26: 50 Yes 74 units and increase by 2 units every 2 days until fbg less 120 ( max of 80 units daily) Subcutaneo us once daily for 30 days [facility] lisinopriL 20 mg tablet 09-02 16:26: 50 Yes 1 tablet Orally Once a day [facility] metFORMIN 500 mg tablet 09-02 16:26: 50 Yes 1 tablet with meals Orally Twice a day [facility] clindamycin 300 mg capsule 08-15 00:00: 00 08-23 04:59 :00 No [id number] 300mg Take 1 capsule by mouth in the morning and 1 capsule at noon and 1 capsule in the evening. Do all this for 7 days. [facility] clindamycin 300 mg capsule 08-15 00:00: 00 08-23 04:59 :00 No [id number] 300mg Take 1 capsule by mouth in the morning and 1 capsule at noon and 1 capsule in the evening. Do all this for 7 days. [facility] clindamycin 300 mg capsule 3-0 7 00:00: 00 08-23 04:59 :00 No [id number] 300mg Take 1 capsule by mouth in the morning and 1 capsule at noon and 1 capsule in the evening. Do all this for 7 days. [facility] clindamycin 300 mg capsule 2022-0 7 00:00: 00 08-23 04:59 :00 No [id number] 300mg Take 1 capsule by mouth in the morning and 1 capsule at noon and 1 capsule in the evening. Do all this for 7 days. [facility] clindamycin 300 mg capsule 2022-0 08-15 00:00: 00 08-23 04:59 :00 No [id number] 300mg Take 1 capsule by mouth in the morning and 1 capsule at noon and 1 capsule in the evening. Do all this for 7 days. [facility] omeprazole 40 mg capsule 2022-0 7 00:00: 00 11-13 04:59 :00 No [id number] 40mg Take 1 capsule by mouth in the morning for 90 days. [facility] omeprazole 40 mg capsule 2022-0 08-14 00:00: 00 11-13 04:59 :00 No [id number] 40mg Take 1 capsule by mouth in the morning for 90 days. [facility] omeprazole 40 mg capsule 3-0 7 00:00: 00 11-13 04:59 :00 No [id number] 40mg Take 1 capsule by mouth in the morning for 90 days. [facility] omeprazole 40 mg capsule 3-0 7-06 00:00: 00 11-13 04:59 :00 No [id number] 40mg Take 1 capsule by mouth in the morning for 90 days. [facility] omeprazole 40 mg capsule 3-0 7-06 00:00: 00 11-13 04:59 :00 No [id number] 40mg Take 1 capsule by mouth in the morning for 90 days. [facility] omeprazole 40 mg capsule 3-0 7-06 00:00: 00 11-13 04:59 :00 No [id number] 40mg Take 1 capsule by mouth in the morning for 90 days. [facility] omeprazole 40 mg capsule 3-0 7 00:00: 00 11-13 04:59 :00 No [id number] 40mg Take 1 capsule by mouth in the morning for 90 days. [facility] omeprazole 40 mg capsule 0 08-14 00:00: 00 11-13 04:59 :00 No [id number] 40mg Take 1 capsule by mouth in the morning for 90 days. [facility] omeprazole 40 mg capsule 0 08-14 00:00: 00 11-13 04:59 :00 No [id number] 40mg Take 1 capsule by mouth in the morning for 90 days. [facility] omeprazole 40 mg capsule 0 08-14 00:00: 00 11-13 04:59 :00 No [id number] 40mg Take 1 capsule by mouth in the morning for 90 days. [facility] omeprazole 40 mg capsule 0 08-14 00:00: 00 11-13 04:59 :00 No [id number] 40mg Take 1 capsule by mouth in the morning for 90 days. [facility] omeprazole 40 mg capsule 0 08-14 00:00: 00 11-13 04:59 :00 No [id number] 40mg Take 1 capsule by mouth in the morning for 90 days. [facility] omeprazole 40 mg capsule 0 08-14 00:00: 00 11-13 04:59 :00 No [id number] 40mg Take 1 capsule by mouth in the morning for 90 days. [facility] omeprazole 40 mg capsule 0 08-14 00:00: 00 11-13 04:59 :00 No [id number] 40mg Take 1 capsule by mouth in the morning for 90 days. [facility] omeprazole 40 mg capsule 2022-0 08-14 00:00: 00 11-13 04:59 :00 No [id number] 40mg Take 1 capsule by mouth in the morning for 90 days. [facility] omeprazole 40 mg capsule 2022-0 7-06 00:00: 00 11-13 04:59 :00 No [id number] 40mg Take 1 capsule by mouth in the morning for 90 days. [facility] omeprazole 40 mg capsule 2022-0 7-06 00:00: 00 11-13 04:59 :00 No [id number] 40mg Take 1 capsule by mouth in the morning for 90 days. [facility] omeprazole 40 mg capsule 2022-0 7-06 00:00: 00 11-13 04:59 :00 No [id number] 40mg Take 1 capsule by mouth in the morning for 90 days. [facility] omeprazole 40 mg capsule 2022-0 7-06 00:00: 00 11-13 04:59 :00 No [id number] 40mg Take 1 capsule by mouth in the morning for 90 days. [facility] omeprazole 40 mg capsule 2022-0 7-06 00:00: 00 11-13 04:59 :00 No [id number] 40mg Take 1 capsule by mouth in the morning for 90 days. [facility] omeprazole 40 mg capsule 0 7-06 00:00: 00 11-13 04:59 :00 No [id number] 40mg Take 1 capsule by mouth in the morning for 90 days. [facility] omeprazole 40 mg capsule 2022-0 7-06 00:00: 00 11-13 04:59 :00 No [id number] 40mg Take 1 capsule by mouth in the morning for 90 days. [facility] omeprazole 40 mg capsule 3-0 7-06 00:00: 00 11-13 04:59 :00 No [id number] 40mg Take 1 capsule by mouth in the morning for 90 days. [facility] omeprazole 40 mg capsule 3-0 7-06 00:00: 00 11-13 04:59 :00 No [id number] 40mg Take 1 capsule by mouth in the morning for 90 days. [facility] 3-0 7-06 00:00: 00 11-13 04:59 :00 No [id number] 40mg Take 1 capsule by mouth in the morning for 90 days. [facility] omeprazole 40 mg capsule 3-0 7-06 00:00: 00 11-13 04:59 :00 No [id number] 40mg Take 1 capsule by mouth in the morning for 90 days. [facility] omeprazole 40 mg capsule 3-0 7-06 00:00: 00 11-13 04:59 :00 No [id number] 40mg Take 1 capsule by mouth in the morning for 90 days. [facility] omeprazole 40 mg capsule 2022-0 7-06 00:00: 00 11-13 04:59 :00 No [id number] 40mg Take 1 capsule by mouth in the morning for 90 days. [facility] omeprazole 40 mg capsule 2022-0 7-06 00:00: 00 11-13 04:59 :00 No [id number] 40mg Take 1 capsule by mouth in the morning for 90 days. [facility] omeprazole 40 mg capsule 2022-0 7-06 00:00: 00 11-13 04:59 :00 No [id number] 40mg Take 1 capsule by mouth in the morning for 90 days. [facility] omeprazole 40 mg capsule 3-0 7-06 00:00: 00 11-13 04:59 :00 No [id number] 40mg Take 1 capsule by mouth in the morning for 90 days. [facility] omeprazole 40 mg capsule 3-0 7-06 00:00: 00 11-13 04:59 :00 No [id number] 40mg Take 1 capsule by mouth in the morning for 90 days. [facility] omeprazole 40 mg capsule 3-0 7-06 00:00: 00 11-13 04:59 :00 No [id number] 40mg Take 1 capsule by mouth in the morning for 90 days. [facility] omeprazole 40 mg capsule 2022-0 08-14 00:00: 00 11-13 04:59 :00 No [id number] 40mg Take 1 capsule by mouth in the morning for 90 days. [facility] omeprazole 40 mg capsule 0 08-14 00:00: 00 11-13 04:59 :00 No [id number] 40mg Take 1 capsule by mouth in the morning for 90 days. [facility] omeprazole 40 mg capsule 0 08-14 00:00: 00 11-13 04:59 :00 No [id number] 40mg Take 1 capsule by mouth in the morning for 90 days. [facility] omeprazole 40 mg capsule 0 08-14 00:00: 00 11-13 04:59 :00 No [id number] 40mg Take 1 capsule by mouth in the morning for 90 days. [facility] 0 08-14 00:00: 00 11-13 04:59 :00 No [id number] 40mg Take 1 capsule by mouth in the morning for 90 days. [facility] tablet 3-0 18 00:00: 00 Yes TAKE 1 TABLET BY MOUTH EVERY 6 HOURS WITH FOOD NEEDED FOR PAIN [facility] ibuprofen 600 mg tablet 3-0 18 00:00: 00 Yes TAKE 1 TABLET BY MOUTH EVERY 6 HOURS WITH FOOD NEEDED FOR PAIN [facility] ibuprofen 600 mg tablet 3-0 -18 00:00: 00 Yes TAKE 1 TABLET BY MOUTH EVERY 6 HOURS WITH FOOD NEEDED FOR PAIN [facility] tablet 3-0 -18 00:00: 00 Yes TAKE 1 TABLET BY MOUTH EVERY 6 HOURS WITH FOOD NEEDED FOR PAIN [facility] mg tablet 3-0 6-18 00:00: 00 Yes TAKE 1 TABLET BY MOUTH EVERY 6 HOURS WITH FOOD NEEDED FOR PAIN [facility] 600 mg tablet 3-0 6-18 00:00: 00 Yes TAKE 1 TABLET BY MOUTH EVERY 6 HOURS WITH FOOD NEEDED FOR PAIN [facility] ibuprofen 600 mg tablet 2023-0 18 00:00: 00 Yes TAKE 1 TABLET BY MOUTH EVERY 6 HOURS WITH FOOD NEEDED FOR PAIN [facility] ibuprofen 600 mg tablet 3-0 18 00:00: 00 Yes TAKE 1 TABLET BY MOUTH EVERY 6 HOURS WITH FOOD NEEDED FOR PAIN [facility] ibuprofen 600 mg tablet 3-0 -18 00:00: 00 Yes TAKE 1 TABLET BY MOUTH EVERY 6 HOURS WITH FOOD NEEDED FOR PAIN [facility] orphenadrin e 100 mg SR tablet 3-0 18 00:00: 00 Yes TAKE 1 TABLET BY MOUTH TWICE A DAY NEEDED [facility] ibuprofen 600 mg tablet 3-0 18 00:00: 00 Yes TAKE 1 TABLET BY MOUTH EVERY 6 HOURS WITH FOOD NEEDED FOR PAIN [facility] orphenadrin e 100 mg SR tablet 3-0 18 00:00: 00 Yes TAKE 1 TABLET BY MOUTH TWICE A DAY NEEDED [facility] ibuprofen 600 mg tablet 3-0 18 00:00: 00 Yes TAKE 1 TABLET BY MOUTH EVERY 6 HOURS WITH FOOD NEEDED FOR PAIN [facility] orphenadrin e 100 mg SR tablet 3-0 18 00:00: 00 Yes TAKE 1 TABLET BY MOUTH TWICE A DAY NEEDED [facility] ibuprofen 600 mg tablet 3-0 18 00:00: 00 Yes TAKE 1 TABLET BY MOUTH EVERY 6 HOURS WITH FOOD NEEDED FOR PAIN [facility] orphenadrin e 100 mg SR tablet 3-0 18 00:00: 00 Yes TAKE 1 TABLET BY MOUTH TWICE A DAY NEEDED [facility] ibuprofen 600 mg tablet 3-0 18 00:00: 00 Yes TAKE 1 TABLET BY MOUTH EVERY 6 HOURS WITH FOOD NEEDED FOR PAIN [facility] orphenadrin e 100 mg SR tablet 3-0 18 00:00: 00 Yes TAKE 1 TABLET BY MOUTH TWICE A DAY NEEDED [facility] ibuprofen 600 mg tablet 2023-0 -18 00:00: 00 Yes TAKE 1 TABLET BY MOUTH EVERY 6 HOURS WITH FOOD NEEDED FOR PAIN [facility] orphenadrin e 100 mg SR tablet 3-0 18 00:00: 00 Yes TAKE 1 TABLET BY MOUTH TWICE A DAY NEEDED [facility] ibuprofen 600 mg tablet 3-0 18 00:00: 00 Yes TAKE 1 TABLET BY MOUTH EVERY 6 HOURS WITH FOOD NEEDED FOR PAIN [facility] orphenadrin e 100 mg SR tablet 3-0 18 00:00: 00 Yes TAKE 1 TABLET BY MOUTH TWICE A DAY NEEDED [facility] ibuprofen 600 mg tablet 3-0 18 00:00: 00 Yes TAKE 1 TABLET BY MOUTH EVERY 6 HOURS WITH FOOD NEEDED FOR PAIN [facility] orphenadrin e 100 mg SR tablet 3-0 18 00:00: 00 Yes TAKE 1 TABLET BY MOUTH TWICE A DAY NEEDED [facility] ibuprofen 600 mg tablet 3-0 18 00:00: 00 Yes TAKE 1 TABLET BY MOUTH EVERY 6 HOURS WITH FOOD NEEDED FOR PAIN [facility] orphenadrin e 100 mg SR tablet 3-0 18 00:00: 00 Yes TAKE 1 TABLET BY MOUTH TWICE A DAY NEEDED [facility] ibuprofen 600 mg tablet 3-0 18 00:00: 00 Yes TAKE 1 TABLET BY MOUTH EVERY 6 HOURS WITH FOOD NEEDED FOR PAIN [facility] orphenadrin e 100 mg SR tablet 3-0 18 00:00: 00 Yes TAKE 1 TABLET BY MOUTH TWICE A DAY NEEDED [facility] ibuprofen 600 mg tablet 3-0 18 00:00: 00 Yes TAKE 1 TABLET BY MOUTH EVERY 6 HOURS WITH FOOD NEEDED FOR PAIN [facility] orphenadrin e 100 mg SR tablet 3-0 -18 00:00: 00 Yes TAKE 1 TABLET BY MOUTH TWICE A DAY NEEDED [facility] ibuprofen 600 mg tablet 3-0 -18 00:00: 00 Yes TAKE 1 TABLET BY MOUTH EVERY 6 HOURS WITH FOOD NEEDED FOR PAIN [facility] orphenadrin e 100 mg SR tablet 3-0 -18 00:00: 00 Yes TAKE 1 TABLET BY MOUTH TWICE A DAY NEEDED [facility] ibuprofen 600 mg tablet 2023-0 18 00:00: 00 Yes TAKE 1 TABLET BY MOUTH EVERY 6 HOURS WITH FOOD NEEDED FOR PAIN [facility] orphenadrin e 100 mg SR tablet 3-0 18 00:00: 00 Yes TAKE 1 TABLET BY MOUTH TWICE A DAY NEEDED [facility] ibuprofen 600 mg tablet 3-0 18 00:00: 00 Yes TAKE 1 TABLET BY MOUTH EVERY 6 HOURS WITH FOOD NEEDED FOR PAIN [facility] orphenadrin e 100 mg SR tablet 3-0 18 00:00: 00 Yes TAKE 1 TABLET BY MOUTH TWICE A DAY NEEDED [facility] ibuprofen 600 mg tablet 3-0 18 00:00: 00 Yes TAKE 1 TABLET BY MOUTH EVERY 6 HOURS WITH FOOD NEEDED FOR PAIN [facility] orphenadrin e 100 mg SR tablet 3-0 18 00:00: 00 Yes TAKE 1 TABLET BY MOUTH TWICE A DAY NEEDED [facility] ibuprofen 600 mg tablet 3-0 18 00:00: 00 Yes TAKE 1 TABLET BY MOUTH EVERY 6 HOURS WITH FOOD NEEDED FOR PAIN [facility] orphenadrin e 100 mg SR tablet 3-0 18 00:00: 00 Yes TAKE 1 TABLET BY MOUTH TWICE A DAY NEEDED [facility] ibuprofen 600 mg tablet 3-0 18 00:00: 00 Yes TAKE 1 TABLET BY MOUTH EVERY 6 HOURS WITH FOOD NEEDED FOR PAIN [facility] orphenadrin e 100 mg SR tablet 3-0 18 00:00: 00 Yes TAKE 1 TABLET BY MOUTH TWICE A DAY NEEDED [facility] ibuprofen 600 mg tablet 3-0 18 00:00: 00 Yes TAKE 1 TABLET BY MOUTH EVERY 6 HOURS WITH FOOD NEEDED FOR PAIN [facility] orphenadrin e 100 mg SR tablet 3-0 18 00:00: 00 Yes TAKE 1 TABLET BY MOUTH TWICE A DAY NEEDED [facility] ibuprofen 600 mg tablet 2023-0 -18 00:00: 00 Yes TAKE 1 TABLET BY MOUTH EVERY 6 HOURS WITH FOOD NEEDED FOR PAIN [facility] orphenadrin e 100 mg SR tablet 3-0 18 00:00: 00 Yes TAKE 1 TABLET BY MOUTH TWICE A DAY NEEDED [facility] ibuprofen 600 mg tablet 3-0 18 00:00: 00 Yes TAKE 1 TABLET BY MOUTH EVERY 6 HOURS WITH FOOD NEEDED FOR PAIN [facility] orphenadrin e 100 mg SR tablet 3-0 18 00:00: 00 Yes TAKE 1 TABLET BY MOUTH TWICE A DAY NEEDED [facility] ibuprofen 600 mg tablet 3-0 18 00:00: 00 Yes TAKE 1 TABLET BY MOUTH EVERY 6 HOURS WITH FOOD NEEDED FOR PAIN [facility] orphenadrin e 100 mg SR tablet 3-0 18 00:00: 00 Yes TAKE 1 TABLET BY MOUTH TWICE A DAY NEEDED [facility] ibuprofen 600 mg tablet 3-0 -18 00:00: 00 Yes TAKE 1 TABLET BY MOUTH EVERY 6 HOURS WITH FOOD NEEDED FOR PAIN [facility] orphenadrin e 100 mg SR tablet 3-0 18 00:00: 00 Yes TAKE 1 TABLET BY MOUTH TWICE A DAY NEEDED [facility] ibuprofen 600 mg tablet 3-0 18 00:00: 00 Yes TAKE 1 TABLET BY MOUTH EVERY 6 HOURS WITH FOOD NEEDED FOR PAIN [facility] orphenadrin e 100 mg SR tablet 3-0 18 00:00: 00 Yes TAKE 1 TABLET BY MOUTH TWICE A DAY NEEDED [facility] ibuprofen 600 mg tablet 3-0 18 00:00: 00 Yes TAKE 1 TABLET BY MOUTH EVERY 6 HOURS WITH FOOD NEEDED FOR PAIN [facility] orphenadrin e 100 mg SR tablet 3-0 -18 00:00: 00 Yes TAKE 1 TABLET BY MOUTH TWICE A DAY NEEDED [facility] ibuprofen 600 mg tablet 3-0 -18 00:00: 00 Yes TAKE 1 TABLET BY MOUTH EVERY 6 HOURS WITH FOOD NEEDED FOR PAIN [facility] orphenadrin e 100 mg SR tablet 3-0 -18 00:00: 00 Yes TAKE 1 TABLET BY MOUTH TWICE A DAY NEEDED [facility] ibuprofen 600 mg tablet 2023-0 18 00:00: 00 Yes TAKE 1 TABLET BY MOUTH EVERY 6 HOURS WITH FOOD NEEDED FOR PAIN [facility] orphenadrin e 100 mg SR tablet 3-0 18 00:00: 00 Yes TAKE 1 TABLET BY MOUTH TWICE A DAY NEEDED [facility] ibuprofen 600 mg tablet 3-0 -18 00:00: 00 Yes TAKE 1 TABLET BY MOUTH EVERY 6 HOURS WITH FOOD NEEDED FOR PAIN [facility] orphenadrin e 100 mg SR tablet 3-0 18 00:00: 00 Yes TAKE 1 TABLET BY MOUTH TWICE A DAY NEEDED [facility] ibuprofen 600 mg tablet 3-0 18 00:00: 00 Yes TAKE 1 TABLET BY MOUTH EVERY 6 HOURS WITH FOOD NEEDED FOR PAIN [facility] orphenadrin e 100 mg SR tablet 3-0 18 00:00: 00 Yes TAKE 1 TABLET BY MOUTH TWICE A DAY NEEDED [facility] ibuprofen 600 mg tablet 3-0 18 00:00: 00 Yes TAKE 1 TABLET BY MOUTH EVERY 6 HOURS WITH FOOD NEEDED FOR PAIN [facility] orphenadrin e 100 mg SR tablet 3-0 18 00:00: 00 Yes TAKE 1 TABLET BY MOUTH TWICE A DAY NEEDED [facility] ibuprofen 600 mg tablet 3-0 18 00:00: 00 Yes TAKE 1 TABLET BY MOUTH EVERY 6 HOURS WITH FOOD NEEDED FOR PAIN [facility] ibuprofen 600 mg tablet 3-0 18 00:00: 00 Yes TAKE 1 TABLET BY MOUTH EVERY 6 HOURS WITH FOOD NEEDED FOR PAIN [facility] orphenadrin e 100 mg SR tablet 3-0 18 00:00: 00 Yes TAKE 1 TABLET BY MOUTH TWICE A DAY NEEDED [facility] ibuprofen 600 mg tablet 3-0 -18 00:00: 00 Yes TAKE 1 TABLET BY MOUTH EVERY 6 HOURS WITH FOOD NEEDED FOR PAIN [facility] orphenadrin e 100 mg SR tablet 3-0 -18 00:00: 00 Yes TAKE 1 TABLET BY MOUTH TWICE A DAY NEEDED [facility] insulin glargine 100 unit/mL injection 06-10 11:29: 43 06-10 00:00 :00 No 55U inject 55 Units under the skin in the morning. [facility] insulin glargine 100 unit/mL injection 06-10 11:29: 43 06-10 00:00 :00 No 55U inject 55 Units under the skin in the morning. [facility] insulin glargine 100 unit/mL injection 06-10 11:29: 43 06-10 00:00 :00 No 55U inject 55 Units under the skin in the morning. [facility] Ins[facility] Glargine (LANTUS SOLOSTAR U-100 INSULIN) 100 unit/mL (3 mL) injection 06-10 11:29: 37 06-10 00:00 :00 No 74 units and increase by 2 units every 2 days until fbg less 120 ( max of 80 units daily) [facility] Insulin Glargine (LANTUS SOLOSTAR U-100 INSULIN) 100 unit/mL (3 mL) injection 06-10 11:29: 37 06-10 00:00 :00 No 74 units and increase by 2 units every 2 days until fbg less 120 ( max of 80 units daily) [facility] insulin glargine 100 unit/mL injection 06-10 00:00: 00 Yes [id number] 55U inject 55 Units under the skin in the morning. [facility] insulin glargine 100 unit/mL injection 06-10 00:00: 00 Yes [id number] 55U inject 55 Units under the skin in the morning. [facility] insulin glargine 100 unit/mL injection 06-10 00:00: 00 Yes [id number] 55U inject 55 Units under the skin in the morning. [facility] insulin glargine 100 unit/mL injection 06-10 00:00: 00 Yes [id number] 55U inject 55 Units under the skin in the morning. [facility] insulin glargine 100 unit/mL injection 0 06-10 00:00: 00 Yes [id number] 55U inject 55 Units under the skin in the morning. [facility] insulin glargine 100 unit/mL injection 0 06-10 00:00: 00 Yes [id number] 55U inject 55 Units under the skin in the morning. [facility] insulin glargine 100 unit/mL injection 0 06-10 00:00: 00 Yes [id number] 55U inject 55 Units under the skin in the morning. [facility] insulin glargine 100 unit/mL injection 0 06-10 00:00: 00 Yes [id number] 55U inject 55 Units under the skin in the morning. [facility] insulin glargine 100 unit/mL injection 0 06-10 00:00: 00 Yes [id number] 55U inject 55 Units under the skin in the morning. [facility] insulin glargine 100 unit/mL injection 0 06-10 00:00: 00 Yes [id number] 55U inject 55 Units under the skin in the morning. [facility] insulin glargine 100 unit/mL injection 0 06-10 00:00: 00 Yes [id number] 55U inject 55 Units under the skin in the morning. [facility] insulin glargine 100 unit/mL injection 0 06-10 00:00: 00 Yes [id number] 55U inject 55 Units under the skin in the morning. [facility] insulin glargine 100 unit/mL injection 0 06-10 00:00: 00 Yes [id number] 55U inject 55 Units under the skin in the morning. [facility] insulin glargine 100 unit/mL injection 0 06-10 00:00: 00 Yes [id number] 55U inject 55 Units under the skin in the morning. [facility] insulin glargine 100 unit/mL injection 2022-0 06-10 00:00: 00 Yes [id number] 55U inject 55 Units under the skin in the morning. [facility] insulin glargine 100 unit/mL injection 0 06-10 00:00: 00 Yes [id number] 55U inject 55 Units under the skin in the morning. [facility] insulin glargine 100 unit/mL injection 0 06-10 00:00: 00 Yes [id number] 55U inject 55 Units under the skin in the morning. [facility] 100 unit/mL injection 0 06-10 00:00: 00 Yes [id number] 55U inject 55 Units under the skin in the morning. [facility] insulin glargine 100 unit/mL injection 0 06-10 00:00: 00 Yes [id number] 55U inject 55 Units under the skin in the morning. [facility] insulin glargine 100 unit/mL injection 0 06-10 00:00: 00 Yes [id number] 55U inject 55 Units under the skin in the morning. [facility] insulin glargine 100 unit/mL injection 0 06-10 00:00: 00 Yes [id number] 55U inject 55 Units under the skin in the morning. [facility] insulin glargine 100 unit/mL injection 0 06-10 00:00: 00 Yes [id number] 55U inject 55 Units under the skin in the morning. [facility] insulin glargine 100 unit/mL injection 0 06-10 00:00: 00 Yes [id number] 55U inject 55 Units under the skin in the morning. [facility] insulin glargine 100 unit/mL injection 0 06-10 00:00: 00 Yes [id number] 55U inject 55 Units under the skin in the morning. [facility] glargine 100 unit/mL injection 2022-0 06-10 00:00: 00 Yes [id number] 55U inject 55 Units under the skin in the morning. [facility] insulin glargine 100 unit/mL injection 2022-0 06-10 00:00: 00 Yes [id number] 55U inject 55 Units under the skin in the morning. [facility] insulin glargine 100 unit/mL injection 0 06-10 00:00: 00 Yes [id number] 55U inject 55 Units under the skin in the morning. [facility] insulin glargine 100 unit/mL injection 0 06-10 00:00: 00 Yes [id number] 55U inject 55 Units under the skin in the morning. [facility] insulin glargine 100 unit/mL injection 0 06-10 00:00: 00 Yes [id number] 55U inject 55 Units under the skin in the morning. [facility] insulin glargine 100 unit/mL injection 0 06-10 00:00: 00 Yes [id number] 55U inject 55 Units under the skin in the morning. [facility] insulin glargine 100 unit/mL injection 0 06-10 00:00: 00 Yes [id number] 55U inject 55 Units under the skin in the morning. [facility] insulin glargine 100 unit/mL injection 0 06-10 00:00: 00 Yes [id number] 55U inject 55 Units under the skin in the morning. [facility] insulin glargine 100 unit/mL injection 0 06-10 00:00: 00 Yes [id number] 55U inject 55 Units under the skin in the morning. [facility] insulin glargine 100 unit/mL injection 0 06-10 00:00: 00 Yes [id number] 55U inject 55 Units under the skin in the morning. [facility] insulin glargine 100 unit/mL injection 0 06-10 00:00: 00 Yes [id number] 55U inject 55 Units under the skin in the morning. [facility] insulin glargine 100 unit/mL injection 0 06-10 00:00: 00 Yes [id number] 55U inject 55 Units under the skin in the morning. [facility] insulin glargine 100 unit/mL injection 0 06-10 00:00: 00 Yes [id number] 55U inject 55 Units under the skin in the morning. [facility] insulin glargine 100 unit/mL injection 0 06-10 00:00: 00 Yes [id number] 55U inject 55 Units under the skin in the morning. [facility] insulin glargine 100 unit/mL injection 06-10 00:00: 00 Yes [id number] 55U inject 55 Units under the skin in the morning. [facility] insulin glargine 100 unit/mL injection 06-10 00:00: 00 Yes [id number] 55U inject 55 Units under the skin in the morning. [facility] insulin glargine 100 unit/mL injection 06-10 00:00: 00 Yes [id number] 55U inject 55 Units under the skin in the morning. [facility] insulin glargine 100 unit/mL injection 06-10 00:00: 00 Yes [id number] 55U inject 55 Units under the skin in the morning. [facility] insulin glargine 100 unit/mL injection 06-10 00:00: 00 Yes [id number] 55U inject 55 Units under the skin in the morning. [facility] insulin glargine 100 unit/mL injection 06-10 00:00: 00 Yes [id number] 55U inject 55 Units under the skin in the morning. [facility] insulin glargine 100 unit/mL injection 06-10 00:00: 00 Yes [id number] 55U inject 55 Units under the skin in the morning. [facility] insulin glargine 100 unit/mL injection 06-10 00:00: 00 Yes [id number] 55U inject 55 Units under the skin in the morning. [facility] insulin glargine 100 unit/mL injection 06-10 00:00: 00 Yes [id number] 55U inject 55 Units under the skin in the morning. [facility] insulin glargine 100 unit/mL injection 06-10 00:00: 00 Yes [id number] 55U inject 55 Units under the skin in the morning. [facility] Diclofenac Sodium (VOLTAREN) 1 % gel 4-17 00:00: 00 Yes [id number] Take 2-4 grams three times a day as needed for pain [facility] acetaminoph en (TYLENOL ARTHRITIS PAIN) 650 mg CR tablet 0 17 00:00: 00 Yes [id number] 650mg Take 1 tablet by mouth every 8 (eight) hours as needed for Pain. [facility] Diclofenac Sodium (VOLTAREN) 1 % gel 2022-0 17 00:00: 00 Yes [id number] Take 2-4 grams three times a day as needed for pain [facility] acetaminoph en (TYLENOL ARTHRITIS PAIN) 650 mg CR tablet 0 05-26 00:00: 00 Yes [id number] 650mg Take 1 tablet by mouth every 8 (eight) hours as needed for Pain. [facility] Diclofenac Sodium (VOLTAREN) 1 % gel 2022-0 05-26 00:00: 00 Yes [id number] Take 2-4 grams three times a day as needed for pain [facility] acetaminoph en (TYLENOL ARTHRITIS PAIN) 650 mg CR tablet 2022-0 05-26 00:00: 00 Yes [id number] 650mg Take 1 tablet by mouth every 8 (eight) hours as needed for Pain. [facility] Diclofenac Sodium (VOLTAREN) 1 % gel 2022-0 05-26 00:00: 00 Yes [id number] Take 2-4 grams three times a day as needed for pain [facility] acetaminoph en (TYLENOL ARTHRITIS PAIN) 650 mg CR tablet 0 05-26 00:00: 00 Yes [id number] 650mg Take 1 tablet by mouth every 8 (eight) hours as needed for Pain. [facility] Diclofenac Sodium (VOLTAREN) 1 % gel 2022-0 17 00:00: 00 Yes [id number] Take 2-4 grams three times a day as needed for pain [facility] acetaminoph en (TYLENOL ARTHRITIS PAIN) 650 mg CR tablet 2022-0 17 00:00: 00 Yes [id number] 650mg Take 1 tablet by mouth every 8 (eight) hours as needed for Pain. [facility] Diclofenac Sodium (VOLTAREN) 1 % gel 2022-0 17 00:00: 00 Yes [id number] Take 2-4 grams three times a day as needed for pain [facility] acetaminoph en (TYLENOL ARTHRITIS PAIN) 650 mg CR tablet 2022-0 17 00:00: 00 Yes [id number] 650mg Take 1 tablet by mouth every 8 (eight) hours [facility] (VOLTAREN[facility] 1 % gel 2022-0 17 00:00: 00 Yes [id number] Take 2-4 grams three times a day as needed for pain [facility] acetaminoph en (TYLENOL ARTHRITIS PAIN) 650 mg CR tablet 2022-0 05-26 00:00: 00 Yes [id number] 650mg Take 1 tablet by mouth every 8 (eight) hours as needed for Pain. [facility] Diclofenac Sodium (VOLTAREN) 1 % gel 2022-0 05-26 00:00: 00 Yes [id number] Take 2-4 grams three times a day as needed for pain [facility] acetaminoph en (TYLENOL ARTHRITIS PAIN) 650 mg CR tablet 2022-0 05-26 00:00: 00 Yes [id number] 650mg Take 1 tablet by mouth every 8 (eight) hours as needed for Pain. [facility] Diclofenac Sodium (VOLTAREN) 1 % gel 2022-0 17 00:00: 00 Yes [id number] Take 2-4 grams three times a day as needed for pain [facility] (TYLENOL ARTHRITIS PAIN) 650 mg CR tablet 2022-0 17 00:00: 00 Yes [id number] 650mg Take 1 tablet by mouth every 8 (eight) hours as needed for Pain. [facility] Diclofenac Sodium (VOLTAREN) 1 % gel 2022-0 17 00:00: 00 Yes [id number] Take 2-4 grams three times a day as needed for pain [facility]oph [facility] (TYLENOL ARTHRITIS PAIN) 650 mg CR tablet 3-0 17 00:00: 00 Yes [id number] 650mg Take 1 tablet by mouth every 8 (eight) hours as needed for Pain. [facility] Diclofenac Sodium (VOLTAREN) 1 % gel 2022-0 17 00:00: 00 Yes [id number] Take 2-4 grams three times a day as needed for pain [facility] acetaminoph en (TYLENOL ARTHRITIS PAIN) 650 mg CR tablet 2022-0 05-26 00:00: 00 Yes [id number] 650mg Take 1 tablet by mouth every 8 (eight) hours as needed for Pain. [facility] Diclofenac Sodium (VOLTAREN) 1 % gel 2022-0 05-26 00:00: 00 Yes [id number] Take 2-4 grams three times a day as needed for pain [facility] acetaminoph en (TYLENOL ARTHRITIS PAIN) 650 mg CR tablet 0 05-26 00:00: 00 Yes [id number] 650mg Take 1 tablet by mouth every 8 (eight) hours as needed for Pain. [facility] Diclofenac Sodium (VOLTAREN) 1 % gel 0 05-26 00:00: 00 Yes [id number] Take 2-4 grams three times a day as needed for pain [facility] acetaminoph en (TYLENOL ARTHRITIS PAIN) 650 mg CR tablet 0 05-26 00:00: 00 Yes [id number] 650mg Take 1 tablet by mouth every 8 (eight) hours as needed for Pain. [facility] Diclofenac Sodium (VOLTAREN) 1 % gel 2022-0 05-26 00:00: 00 Yes [id number] Take 2-4 grams three times a day as needed for pain [facility] acetaminoph en (TYLENOL ARTHRITIS PAIN) 650 mg CR tablet 2022-0 05-26 00:00: 00 Yes [id number] 650mg Take 1 tablet by mouth every 8 (eight) hours as needed for Pain. [facility] Diclofenac Sodium (VOLTAREN) 1 % gel 0 05-26 00:00: 00 Yes [id number] Take 2-4 grams three times a day as needed for pain [facility] acetaminoph en (TYLENOL ARTHRITIS PAIN) 650 mg CR tablet 2022-0 17 00:00: 00 Yes [id number] 650mg Take 1 tablet by mouth every 8 (eight) hours as needed for Pain. [facility] Diclofenac Sodium (VOLTAREN) 1 % gel 2022-0 17 00:00: 00 Yes [id number] Take 2-4 grams three times a day as needed for pain [facility] acetaminoph en (TYLENOL ARTHRITIS PAIN) 650 mg CR tablet 2022-0 17 00:00: 00 Yes [id number] 650mg Take 1 tablet by mouth every 8 (eight) hours as needed for Pain. [facility] Diclofenac Sodium (VOLTAREN) 1 % gel 2022-0 05-26 00:00: 00 Yes [id number] Take 2-4 grams three times a day as needed for pain [facility] acetaminoph en (TYLENOL ARTHRITIS PAIN) 650 mg CR tablet 2022-0 05-26 00:00: 00 Yes [id number] 650mg Take 1 tablet by mouth every 8 (eight) hours as needed for Pain. [facility] Diclofenac Sodium (VOLTAREN) 1 % gel 2022-0 05-26 00:00: 00 Yes [id number] Take 2-4 grams three times a day as needed for pain [facility] acetaminoph en (TYLENOL ARTHRITIS PAIN) 650 mg CR tablet 0 05-26 00:00: 00 Yes [id number] 650mg Take 1 tablet by mouth every 8 (eight) hours as needed for Pain. [facility] Diclofenac Sodium (VOLTAREN) 1 % gel 2022-0 17 00:00: 00 Yes [id number] Take 2-4 grams three times a day as needed for pain [facility] acetaminoph en (TYLENOL ARTHRITIS PAIN) 650 mg CR tablet 2022-0 05-26 00:00: 00 Yes [id number] 650mg Take 1 tablet by mouth every 8 (eight) hours [facility]of[facility] Sodium (VOLTAREN) 1 % gel 2022-0 17 00:00: 00 Yes [id number] Take 2-4 grams three times a day as needed for pain [facility] acetaminoph en (TYLENOL ARTHRITIS PAIN) 650 mg CR tablet 2022-0 4-17 00:00: 00 Yes [id number] 650mg Take 1 tablet by mouth every 8 (eight) hours as needed for Pain. [facility] Diclofenac Sodium (VOLTAREN) 1 % gel 0 05-26 00:00: 00 Yes [id number] Take 2-4 grams three times a day as needed for pain [facility] acetaminoph en (TYLENOL ARTHRITIS PAIN) 650 mg CR tablet 0 05-26 00:00: 00 Yes [id number] 650mg Take 1 tablet by mouth every 8 (eight) hours as needed for Pain. [facility] Diclofenac Sodium (VOLTAREN) 1 % gel 2022-0 05-26 00:00: 00 Yes [id number] Take 2-4 grams three times a day as needed for pain [facility] acetaminoph en (TYLENOL ARTHRITIS PAIN) 650 mg CR tablet 0 05-26 00:00: 00 Yes [id number] 650mg Take 1 tablet by mouth every 8 (eight) hours as needed for Pain. [facility] Diclofenac Sodium (VOLTAREN) 1 % gel 2022-0 05-26 00:00: 00 Yes [id number] Take 2-4 grams three times a day as needed for pain [facility] acetaminoph en (TYLENOL ARTHRITIS PAIN) 650 mg CR tablet 0 05-26 00:00: 00 Yes [id number] 650mg Take 1 tablet by mouth every 8 (eight) hours as needed for Pain. [facility] Diclofenac Sodium (VOLTAREN) 1 % gel 0 05-26 00:00: 00 Yes [id number] Take 2-4 grams three times a day as needed for pain [facility] acetaminoph en (TYLENOL ARTHRITIS PAIN) 650 mg CR tablet 2022-0 05-26 00:00: 00 Yes [id number] 650mg Take 1 tablet by mouth every 8 (eight) hours as needed for Pain. [facility] Diclofenac Sodium (VOLTAREN) 1 % gel 2022-0 05-26 00:00: 00 Yes [id number] Take 2-4 grams three times a day as needed for pain [facility] acetaminoph en (TYLENOL ARTHRITIS PAIN) 650 mg CR tablet 2022-0 17 00:00: 00 Yes [id number] 650mg Take 1 tablet by mouth every 8 (eight) hours as needed for Pain. [facility] Diclofenac Sodium (VOLTAREN) 1 % gel 0 17 00:00: 00 Yes [id number] Take 2-4 grams three times a day as needed for pain [facility] acetaminoph en (TYLENOL ARTHRITIS PAIN) 650 mg CR tablet 2022-0 17 00:00: 00 Yes [id number] 650mg Take 1 tablet by mouth every 8 (eight) hours as needed for Pain. [facility] Diclofenac Sodium (VOLTAREN) 1 % gel 0 05-26 00:00: 00 Yes [id number] Take 2-4 grams three times a day as needed for pain [facility] acetaminoph en (TYLENOL ARTHRITIS PAIN) 650 mg CR tablet 2022-0 05-26 00:00: 00 Yes [id number] 650mg Take 1 tablet by mouth every 8 (eight) hours as needed for Pain. [facility] acetaminoph en (TYLENOL ARTHRITIS PAIN) 650 mg CR tablet 2022-0 05-26 00:00: 00 Yes [id number] 650mg Take 1 tablet by mouth every 8 (eight) hours as needed for Pain. [facility] acetaminoph en (TYLENOL ARTHRITIS PAIN) 650 mg CR tablet 2022-0 17 00:00: 00 Yes [id number] 650mg Take 1 tablet by mouth every 8 (eight) hours as needed for Pain. [facility] acetaminoph en (TYLENOL ARTHRITIS PAIN) 650 mg CR tablet 0 17 00:00: 00 Yes [id number] 650mg Take 1 tablet by mouth every 8 (eight) hours as needed for Pain. [facility] acetaminoph en (TYLENOL ARTHRITIS PAIN) 650 mg CR tablet 2022-0 17 00:00: 00 Yes [id number] 650mg Take 1 tablet by mouth every 8 (eight) hours as needed for Pain. [facility] acetaminoph en (TYLENOL ARTHRITIS PAIN) 650 mg CR tablet 2022-0 4-17 00:00: 00 Yes [id number] 650mg Take 1 tablet by mouth every 8 (eight) hours as needed for Pain. [facility] acetaminoph en (TYLENOL ARTHRITIS PAIN) 650 mg CR tablet 0 05-26 00:00: 00 Yes [id number] 650mg Take 1 tablet by mouth every 8 (eight) hours as needed for Pain. [facility] acetaminoph en (TYLENOL ARTHRITIS PAIN) 650 mg CR tablet 0 05-26 00:00: 00 Yes [id number] 650mg Take 1 tablet by mouth every 8 (eight) hours as needed for Pain. [facility] acetaminoph en (TYLENOL ARTHRITIS PAIN) 650 mg CR tablet 0 05-26 00:00: 00 Yes [id number] 650mg Take 1 tablet by mouth every 8 (eight) hours as needed for Pain. [facility] acetaminoph en (TYLENOL ARTHRITIS PAIN) 650 mg CR tablet 0 05-26 00:00: 00 Yes [id number] 650mg Take 1 tablet by mouth every 8 (eight) hours as needed for Pain. [facility] acetaminoph en (TYLENOL ARTHRITIS PAIN) 650 mg CR tablet 0 05-26 00:00: 00 Yes [id number] 650mg Take 1 tablet by mouth every 8 (eight) hours as needed for Pain. [facility] acetaminoph en (TYLENOL ARTHRITIS PAIN) 650 mg CR tablet 2022-0 17 00:00: 00 Yes [id number] 650mg Take 1 tablet by mouth every 8 (eight) hours as needed for Pain. [facility] acetaminoph en (TYLENOL ARTHRITIS PAIN) 650 mg CR tablet 2022-0 17 00:00: 00 Yes [id number] 650mg Take 1 tablet by mouth every 8 (eight) hours as needed for Pain. [facility] acetaminoph en (TYLENOL ARTHRITIS PAIN) 650 mg CR tablet 2022-0 17 00:00: 00 Yes [id number] 650mg Take 1 tablet by mouth every 8 (eight) hours as needed for Pain. [facility] acetaminoph en (TYLENOL ARTHRITIS PAIN) 650 mg CR tablet 2022-0 17 00:00: 00 Yes [id number] 650mg Take 1 tablet by mouth every 8 (eight) hours as needed for Pain. [facility] acetaminoph en (TYLENOL ARTHRITIS PAIN) 650 mg CR tablet 0 17 00:00: 00 Yes [id number] 650mg Take 1 tablet by mouth every 8 (eight) hours as needed for Pain. [facility] acetaminoph en (TYLENOL ARTHRITIS PAIN) 650 mg CR tablet 0 05-26 00:00: 00 Yes [id number] 650mg Take 1 tablet by mouth every 8 (eight) hours as needed for Pain. [facility] acetaminoph en (TYLENOL ARTHRITIS PAIN) 650 mg CR tablet 0 05-26 00:00: 00 Yes [id number] 650mg Take 1 tablet by mouth every 8 (eight) hours as needed for Pain. [facility] acetaminoph en (TYLENOL ARTHRITIS PAIN) 650 mg CR tablet 0 05-26 00:00: 00 Yes [id number] 650mg Take 1 tablet by mouth every 8 (eight) hours as needed for Pain. [facility] acetaminoph en (TYLENOL ARTHRITIS PAIN) 650 mg CR tablet 0 05-26 00:00: 00 Yes [id number] 650mg Take 1 tablet by mouth every 8 (eight) hours as needed for Pain. [facility] acetaminoph en (TYLENOL ARTHRITIS PAIN) 650 mg CR tablet 0 05-26 00:00: 00 Yes [id number] 650mg Take 1 tablet by mouth every 8 (eight) hours as needed for Pain. [facility] acetaminoph en (TYLENOL ARTHRITIS PAIN) 650 mg CR tablet 0 17 00:00: 00 Yes [id number] 650mg Take 1 tablet by mouth every 8 (eight) hours as needed for Pain. [facility] acetaminoph en (TYLENOL ARTHRITIS PAIN) 650 mg CR tablet 2022-0 17 00:00: 00 Yes [id number] 650mg Take 1 tablet by mouth every 8 (eight) hours as needed for Pain. [facility] acetaminoph en (TYLENOL ARTHRITIS PAIN) 650 mg CR tablet 05-26 00:00: 00 Yes [id number] 650mg Take 1 tablet by mouth every 8 (eight) hours as needed for Pain. [facility] acetaminoph en (TYLENOL ARTHRITIS PAIN) 650 mg CR tablet 05-26 00:00: 00 Yes [id number] 650mg Take 1 tablet by mouth every 8 (eight) hours as needed for Pain. [facility] Diclofenac Sodium (VOLTAREN) 1 % gel 05-26 00:00: 00 09-24 00:00 :00 No [id number] Take 2-4 grams three times a day as needed for pain [facility] Diclofenac Sodium (VOLTAREN) 1 % gel 05-26 00:00: 00 09-24 00:00 :00 No [id number] Take 2-4 grams three times a day as needed for pain [facility] metformin ER 500 mg 24 hr tablet 05-23 00:00: 00 Yes [id number] 1000mg Take 2 tablets by mouth daily with breakfast. [facility] metformin ER 500 mg 24 hr tablet 05-23 00:00: 00 Yes [id number] 1000mg Take 2 tablets by mouth daily with breakfast. [facility] gabapentin 300 mg capsule 05-23 00:00: 00 Yes [id number] 300mg Take 1 capsule by mouth in the morning and 1 capsule at noon and 1 capsule in the evening. [facility] methocarbam oL 750 mg tablet 05-23 00:00: 00 Yes [id number] 750mg Take 1 tablet by mouth 3 (three) times daily as needed for Pain (scale 7-10). [facility] metformin ER 500 mg 24 hr tablet 05-23 00:00: 00 Yes [id number] 1000mg Take 2 tablets by mouth daily with breakfast. [facility] gabapentin 300 mg capsule 05-23 00:00: 00 Yes [id number] 300mg Take 1 capsule by mouth in the morning and 1 capsule at noon and 1 capsule in the evening. [facility] methocarbam oL 750 mg tablet 2022-0 -14 00:00: 00 Yes [id number] 750mg Take 1 tablet by mouth 3 (three) times daily as needed for Pain (scale 7-10). [facility] metformin ER 500 mg 24 hr tablet 2022-0 4-14 00:00: 00 Yes [id number] 1000mg Take 2 tablets by mouth daily with breakfast. [facility] gabapentin 300 mg capsule 2022-0 -14 00:00: 00 Yes [id number] 300mg Take 1 capsule by mouth in the morning and 1 capsule at noon and 1 capsule in the evening. [facility] methocarbam oL 750 mg tablet 2022-0 14 00:00: 00 Yes [id number] 750mg Take 1 tablet by mouth 3 (three) times daily as needed for Pain (scale 7-10). [facility] metformin ER 500 mg 24 hr tablet 2022-0 14 00:00: 00 Yes [id number] 1000mg Take 2 tablets by mouth daily with breakfast. [facility] gabapentin 300 mg capsule 2022-0 14 00:00: 00 Yes [id number] 300mg Take 1 capsule by mouth in the morning and 1 capsule at noon and 1 capsule in the evening. [facility] methocarbam oL 750 mg tablet 0 14 00:00: 00 Yes [id number] 750mg Take 1 tablet by mouth 3 (three) times daily as needed for Pain (scale 7-10). [facility] metformin ER 500 mg 24 hr tablet 2022-0 14 00:00: 00 Yes [id number] 1000mg Take 2 tablets by mouth daily with breakfast. [facility] gabapentin 300 mg capsule 2022-0 -14 00:00: 00 Yes [id number] 300mg Take 1 capsule by mouth in the morning and 1 capsule at noon and 1 capsule in the evening. [facility] methocarbam oL 750 mg tablet 2022-0 -14 00:00: 00 Yes [id number] 750mg Take 1 tablet by mouth 3 (three) times daily as needed for Pain (scale 7-10). [facility] metformin ER 500 mg 24 hr tablet 2022-0 4-14 00:00: 00 Yes [id number] 1000mg Take 2 tablets by mouth daily with breakfast. [facility] gabapentin 300 mg capsule 2022-0 -14 00:00: 00 Yes [id number] 300mg Take 1 capsule by mouth in the morning and 1 capsule at noon and 1 capsule in the evening. [facility] methocarbam oL 750 mg tablet 2022-0 -14 00:00: 00 Yes [id number] 750mg Take 1 tablet by mouth 3 (three) times daily as needed for Pain (scale 7-10). [facility] metformin ER 500 mg 24 hr tablet 2022-0 -14 00:00: 00 Yes [id number] 1000mg Take 2 tablets by mouth daily with breakfast. [facility] gabapentin 300 mg capsule 2022-0 14 00:00: 00 Yes [id number] 300mg Take 1 capsule by mouth in the morning and 1 capsule at noon and 1 capsule in the evening. [facility] methocarbam oL 750 mg tablet 2022-0 14 00:00: 00 Yes [id number] 750mg Take 1 tablet by mouth 3 (three) times daily as needed for Pain (scale 7-10). [facility] metformin ER 500 mg 24 hr tablet 0 14 00:00: 00 Yes [id number] 1000mg Take 2 tablets by mouth daily with breakfast. [facility] gabapentin 300 mg capsule 2022-0 14 00:00: 00 Yes [id number] 300mg Take 1 capsule by mouth in the morning and 1 capsule at noon and 1 capsule in the evening. [facility] methocarbam oL 750 mg tablet 2022-0 14 00:00: 00 Yes [id number] 750mg Take 1 tablet by mouth 3 (three) times daily as needed for Pain (scale 7-10). [facility] metformin ER 500 mg 24 hr tablet 2022-0 -14 00:00: 00 Yes [id number] 1000mg Take 2 tablets by mouth daily with breakfast. [facility] gabapentin 300 mg capsule 3-0 -14 00:00: 00 Yes [id number] 300mg Take 1 capsule by mouth in the morning and 1 capsule at noon and 1 capsule in the evening. [facility] methocarbam oL 750 mg tablet 2022-0 4-14 00:00: 00 Yes [id number] 750mg Take 1 tablet by mouth 3 (three) times daily as needed for Pain (scale 7-10). [facility] metformin ER 500 mg 24 hr tablet 2022-0 -14 00:00: 00 Yes [id number] 1000mg Take 2 tablets by mouth daily with breakfast. [facility] gabapentin 300 mg capsule 2022-0 -14 00:00: 00 Yes [id number] 300mg Take 1 capsule by mouth in the morning and 1 capsule at noon and 1 capsule in the evening. [facility] methocarbam oL 750 mg tablet 2022-0 -14 00:00: 00 Yes [id number] 750mg Take 1 tablet by mouth 3 (three) times daily as needed for Pain (scale 7-10). [facility] metformin ER 500 mg 24 hr tablet 2022-0 -14 00:00: 00 Yes [id number] 1000mg Take 2 tablets by mouth daily with breakfast. [facility] gabapentin 300 mg capsule 2022-0 -14 00:00: 00 Yes [id number] 300mg Take 1 capsule by mouth in the morning and 1 capsule at noon and 1 capsule in the evening. [facility] methocarbam oL 750 mg tablet 2022-0 -14 00:00: 00 Yes [id number] 750mg Take 1 tablet by mouth 3 (three) times daily as needed for Pain (scale 7-10). [facility] metformin ER 500 mg 24 hr tablet 2022-0 -14 00:00: 00 Yes [id number] 1000mg Take 2 tablets by mouth daily with breakfast. [facility] gabapentin 300 mg capsule 3-0 -14 00:00: 00 Yes [id number] 300mg Take 1 capsule by mouth in the morning and 1 capsule at noon and 1 capsule in the evening. [facility] methocarbam oL 750 mg tablet 3-0 4-14 00:00: 00 Yes [id number] 750mg Take 1 tablet by mouth 3 (three) times daily as needed for Pain (scale 7-10). [facility] metformin ER 500 mg 24 hr tablet 2022-0 -14 00:00: 00 Yes [id number] 1000mg Take 2 tablets by mouth daily with breakfast. [facility] gabapentin 300 mg capsule 2022-0 -14 00:00: 00 Yes [id number] 300mg Take 1 capsule by mouth in the morning and 1 capsule at noon and 1 capsule in the evening. [facility] methocarbam oL 750 mg tablet 2022-0 -14 00:00: 00 Yes [id number] 750mg Take 1 tablet by mouth 3 (three) times daily as needed for Pain (scale 7-10). [facility] metformin ER 500 mg 24 hr tablet 2022-0 -14 00:00: 00 Yes [id number] 1000mg Take 2 tablets by mouth daily with breakfast. [facility] gabapentin 300 mg capsule 2022-0 -14 00:00: 00 Yes [id number] 300mg Take 1 capsule by mouth in the morning and 1 capsule at noon and 1 capsule in the evening. [facility] methocarbam oL 750 mg tablet 2022-0 -14 00:00: 00 Yes [id number] 750mg Take 1 tablet by mouth 3 (three) times daily as needed for Pain (scale 7-10). [facility] metformin ER 500 mg 24 hr tablet 2022-0 -14 00:00: 00 Yes [id number] 1000mg Take 2 tablets by mouth daily with breakfast. [facility] gabapentin 300 mg capsule 2022-0 -14 00:00: 00 Yes [id number] 300mg Take 1 capsule by mouth in the morning and 1 capsule at noon and 1 capsule in the evening. [facility] methocarbam oL 750 mg tablet 2022-0 -14 00:00: 00 Yes [id number] 750mg Take 1 tablet by mouth 3 (three) times daily as needed for Pain (scale 7-10). [facility] metformin ER 500 mg 24 hr tablet 2022-0 -14 00:00: 00 Yes [id number] 1000mg Take 2 tablets by mouth daily with breakfast. [facility] gabapentin 300 mg capsule 2022-0 14 00:00: 00 Yes [id number] 300mg Take 1 capsule by mouth in the morning and 1 capsule at noon and 1 capsule in the evening. [facility] methocarbam oL 750 mg tablet 0 14 00:00: 00 Yes [id number] 750mg Take 1 tablet by mouth 3 (three) times daily as needed for Pain (scale 7-10). [facility] metformin ER 500 mg 24 hr tablet 2022-0 -14 00:00: 00 Yes [id number] 1000mg Take 2 tablets by mouth daily with breakfast. [facility] gabapentin 300 mg capsule 0 14 00:00: 00 Yes [id number] 300mg Take 1 capsule by mouth in the morning and 1 capsule at noon and 1 capsule in the evening. [facility] methocarbam oL 750 mg tablet 0 05-23 00:00: 00 Yes [id number] 750mg Take 1 tablet by mouth 3 (three) times daily as needed for Pain (scale 7-10). [facility] metformin ER 500 mg 24 hr tablet 0 05-23 00:00: 00 Yes [id number] 1000mg Take 2 tablets by mouth daily with breakfast. [facility] gabapentin 300 mg capsule 0 14 00:00: 00 Yes [id number] 300mg Take 1 capsule by mouth in the morning and 1 capsule at noon and 1 capsule in the evening. [facility] methocarbam oL 750 mg tablet 0 14 00:00: 00 Yes [id number] 750mg Take 1 tablet by mouth 3 (three) times daily as needed for Pain (scale 7-10). [facility] metformin ER 500 mg 24 hr tablet 2022-0 14 00:00: 00 Yes [id number] 1000mg Take 2 tablets by mouth daily with breakfast. [facility] gabapentin 300 mg capsule 2022-0 14 00:00: 00 Yes [id number] 300mg Take 1 capsule by mouth in the morning and 1 capsule at noon and 1 capsule in the evening. [facility] methocarbam oL 750 mg tablet 2023-0 4-14 00:00: 00 Yes [id number] 750mg Take 1 tablet by mouth 3 (three) times daily as needed for Pain (scale 7-10). [facility] metformin ER 500 mg 24 hr tablet 2022-0 4-14 00:00: 00 Yes [id number] 1000mg Take 2 tablets by mouth daily with breakfast. [facility] gabapentin 300 mg capsule 2022-0 4-14 00:00: 00 Yes [id number] 300mg Take 1 capsule by mouth in the morning and 1 capsule at noon and 1 capsule in the evening. [facility] methocarbam oL 750 mg tablet 2022-0 -14 00:00: 00 Yes [id number] 750mg Take 1 tablet by mouth 3 (three) times daily as needed for Pain (scale 7-10). [facility] metformin ER 500 mg 24 hr tablet 2022-0 -14 00:00: 00 Yes [id number] 1000mg Take 2 tablets by mouth daily with breakfast. [facility] gabapentin 300 mg capsule 2022-0 -14 00:00: 00 Yes [id number] 300mg Take 1 capsule by mouth in the morning and 1 capsule at noon and 1 capsule in the evening. [facility] methocarbam oL 750 mg tablet 0 14 00:00: 00 Yes [id number] 750mg Take 1 tablet by mouth 3 (three) times daily as needed for Pain (scale 7-10). [facility] metformin ER 500 mg 24 hr tablet 2022-0 -14 00:00: 00 Yes [id number] 1000mg Take 2 tablets by mouth daily with breakfast. [facility] gabapentin 300 mg capsule 2022-0 -14 00:00: 00 Yes [id number] 300mg Take 1 capsule by mouth in the morning and 1 capsule at noon and 1 capsule in the evening. [facility] methocarbam oL 750 mg tablet 2022-0 -14 00:00: 00 Yes [id number] 750mg Take 1 tablet by mouth 3 (three) times daily as needed for Pain (scale 7-10). [facility] metformin ER 500 mg 24 hr tablet 2022-0 -14 00:00: 00 Yes [id number] 1000mg Take 2 tablets by mouth daily with breakfast. [facility] gabapentin 300 mg capsule 2022-0 -14 00:00: 00 Yes [id number] 300mg Take 1 capsule by mouth in the morning and 1 capsule at noon and 1 capsule in the evening. [facility] methocarbam oL 750 mg tablet 2022-0 14 00:00: 00 Yes [id number] 750mg Take 1 tablet by mouth 3 (three) times daily as needed for Pain (scale 7-10). [facility] metformin ER 500 mg 24 hr tablet 2022-0 14 00:00: 00 Yes [id number] 1000mg Take 2 tablets by mouth daily with breakfast. [facility] gabapentin 300 mg capsule 2022-0 14 00:00: 00 Yes [id number] 300mg Take 1 capsule by mouth in the morning and 1 capsule at noon and 1 capsule in the evening. [facility] methocarbam oL 750 mg tablet 2022-0 14 00:00: 00 Yes [id number] 750mg Take 1 tablet by mouth 3 (three) times daily as needed for Pain (scale 7-10). [facility] metformin ER 500 mg 24 hr tablet 0 14 00:00: 00 Yes [id number] 1000mg Take 2 tablets by mouth daily with breakfast. [facility] gabapentin 300 mg capsule 2022-0 14 00:00: 00 Yes [id number] 300mg Take 1 capsule by mouth in the morning and 1 capsule at noon and 1 capsule in the evening. [facility] methocarbam oL 750 mg tablet 2022-0 14 00:00: 00 Yes [id number] 750mg Take 1 tablet by mouth 3 (three) times daily as needed for Pain (scale 7-10). [facility] metformin ER 500 mg 24 hr tablet 2022-0 -14 00:00: 00 Yes [id number] 1000mg Take 2 tablets by mouth daily with breakfast. [facility] gabapentin 300 mg capsule 3-0 -14 00:00: 00 Yes [id number] 300mg Take 1 capsule by mouth in the morning and 1 capsule at noon and 1 capsule in the evening. [facility] methocarbam oL 750 mg tablet 3-0 4-14 00:00: 00 Yes [id number] 750mg Take 1 tablet by mouth 3 (three) times daily as needed for Pain (scale 7-10). [facility] metformin ER 500 mg 24 hr tablet 3-0 4-14 00:00: 00 Yes [id number] 1000mg Take 2 tablets by mouth daily with breakfast. [facility] gabapentin 300 mg capsule 3-0 -14 00:00: 00 Yes [id number] 300mg Take 1 capsule by mouth in the morning and 1 capsule at noon and 1 capsule in the evening. [facility] methocarbam oL 750 mg tablet 2022-0 -14 00:00: 00 Yes [id number] 750mg Take 1 tablet by mouth 3 (three) times daily as needed for Pain (scale 7-10). [facility] metformin ER 500 mg 24 hr tablet 2022-0 -14 00:00: 00 Yes [id number] 1000mg Take 2 tablets by mouth daily with breakfast. [facility] gabapentin 300 mg capsule 3-0 -14 00:00: 00 Yes [id number] 300mg Take 1 capsule by mouth in the morning and 1 capsule at noon and 1 capsule in the evening. [facility] methocarbam oL 750 mg tablet 3-0 -14 00:00: 00 Yes [id number] 750mg Take 1 tablet by mouth 3 (three) times daily as needed for Pain (scale 7-10). [facility] metformin ER 500 mg 24 hr tablet 2022-0 -14 00:00: 00 Yes [id number] 1000mg Take 2 tablets by mouth daily with breakfast. [facility] gabapentin 300 mg capsule 3-0 -14 00:00: 00 Yes [id number] 300mg Take 1 capsule by mouth in the morning and 1 capsule at noon and 1 capsule in the evening. [facility] methocarbam oL 750 mg tablet 3-0 4-14 00:00: 00 Yes [id number] 750mg Take 1 tablet by mouth 3 (three) times daily as needed for Pain (scale 7-10). [facility] metformin ER 500 mg 24 hr tablet 3-0 4-14 00:00: 00 Yes [id number] 1000mg Take 2 tablets by mouth daily with breakfast. [facility] gabapentin 300 mg capsule 3-0 4-14 00:00: 00 Yes [id number] 300mg Take 1 capsule by mouth in the morning and 1 capsule at noon and 1 capsule in the evening. [facility] methocarbam oL 750 mg tablet 3-0 4-14 00:00: 00 Yes [id number] 750mg Take 1 tablet by mouth 3 (three) times daily as needed for Pain (scale 7-10). [facility] metformin ER 500 mg 24 hr tablet 3-0 4-14 00:00: 00 Yes [id number] 1000mg Take 2 tablets by mouth daily with breakfast. [facility] gabapentin 300 mg capsule 3-0 -14 00:00: 00 Yes [id number] 300mg Take 1 capsule by mouth in the morning and 1 capsule at noon and 1 capsule in the evening. [facility] methocarbam oL 750 mg tablet 2022-0 4-14 00:00: 00 Yes [id number] 750mg Take 1 tablet by mouth 3 (three) times daily as needed for Pain (scale 7-10). [facility] metformin ER 500 mg 24 hr tablet 2022-0 4-14 00:00: 00 Yes [id number] 1000mg Take 2 tablets by mouth daily with breakfast. [facility] gabapentin 300 mg capsule 3-0 4-14 00:00: 00 Yes [id number] 300mg Take 1 capsule by mouth in the morning and 1 capsule at noon and 1 capsule in the evening. [facility] methocarbam oL 750 mg tablet 3-0 4-14 00:00: 00 Yes [id number] 750mg Take 1 tablet by mouth 3 (three) times daily as needed for Pain (scale 7-10). [facility] metformin ER 500 mg 24 hr tablet 3-0 4-14 00:00: 00 Yes [id number] 1000mg Take 2 tablets by mouth daily with breakfast. [facility] gabapentin 300 mg capsule 2022-0 14 00:00: 00 Yes [id number] 300mg Take 1 capsule by mouth in the morning and 1 capsule at noon and 1 capsule in the evening. [facility] methocarbam oL 750 mg tablet 2022-0 -14 00:00: 00 Yes [id number] 750mg Take 1 tablet by mouth 3 (three) times daily as needed for Pain (scale 7-10). [facility] metformin ER 500 mg 24 hr tablet 2022-0 -14 00:00: 00 Yes [id number] 1000mg Take 2 tablets by mouth daily with breakfast. [facility] gabapentin 300 mg capsule 2022-0 14 00:00: 00 Yes [id number] 300mg Take 1 capsule by mouth in the morning and 1 capsule at noon and 1 capsule in the evening. [facility] methocarbam oL 750 mg tablet 2022-0 14 00:00: 00 Yes [id number] 750mg Take 1 tablet by mouth 3 (three) times daily as needed for Pain (scale 7-10). [facility] metformin ER 500 mg 24 hr tablet 2022-0 14 00:00: 00 Yes [id number] 1000mg Take 2 tablets by mouth daily with breakfast. [facility] gabapentin 300 mg capsule 2022-0 14 00:00: 00 Yes [id number] 300mg Take 1 capsule by mouth in the morning and 1 capsule at noon and 1 capsule in the evening. [facility] methocarbam oL 750 mg tablet 2022-0 14 00:00: 00 Yes [id number] 750mg Take 1 tablet by mouth 3 (three) times daily as needed for Pain (scale 7-10). [facility] metformin ER 500 mg 24 hr tablet 2022-0 14 00:00: 00 Yes [id number] 1000mg Take 2 tablets by mouth daily with breakfast. [facility] gabapentin 300 mg capsule 3-0 -14 00:00: 00 Yes [id number] 300mg Take 1 capsule by mouth in the morning and 1 capsule at noon and 1 capsule in the evening. [facility] methocarbam oL 750 mg tablet 2022-0 -14 00:00: 00 Yes [id number] 750mg Take 1 tablet by mouth 3 (three) times daily as needed for Pain (scale 7-10). [facility] metformin ER 500 mg 24 hr tablet 2022-0 4-14 00:00: 00 Yes [id number] 1000mg Take 2 tablets by mouth daily with breakfast. [facility] gabapentin 300 mg capsule 2022-0 -14 00:00: 00 Yes [id number] 300mg Take 1 capsule by mouth in the morning and 1 capsule at noon and 1 capsule in the evening. [facility] methocarbam oL 750 mg tablet 2022-0 -14 00:00: 00 Yes [id number] 750mg Take 1 tablet by mouth 3 (three) times daily as needed for Pain (scale 7-10). [facility] metformin ER 500 mg 24 hr tablet 2022-0 -14 00:00: 00 Yes [id number] 1000mg Take 2 tablets by mouth daily with breakfast. [facility] gabapentin 300 mg capsule 2022-0 14 00:00: 00 Yes [id number] 300mg Take 1 capsule by mouth in the morning and 1 capsule at noon and 1 capsule in the evening. [facility] methocarbam oL 750 mg tablet 2022-0 14 00:00: 00 Yes [id number] 750mg Take 1 tablet by mouth 3 (three) times daily as needed for Pain (scale 7-10). [facility] metformin ER 500 mg 24 hr tablet 2022-0 -14 00:00: 00 Yes [id number] 1000mg Take 2 tablets by mouth daily with breakfast. [facility] gabapentin 300 mg capsule 2022-0 -14 00:00: 00 Yes [id number] 300mg Take 1 capsule by mouth in the morning and 1 capsule at noon and 1 capsule in the evening. [facility] methocarbam oL 750 mg tablet 2022-0 -14 00:00: 00 Yes [id number] 750mg Take 1 tablet by mouth 3 (three) times daily as needed for Pain (scale 7-10). [facility] metformin ER 500 mg 24 hr tablet 2022-0 4-14 00:00: 00 Yes [id number] 1000mg Take 2 tablets by mouth daily with breakfast. [facility] gabapentin 300 mg capsule 2022-0 14 00:00: 00 Yes [id number] 300mg Take 1 capsule by mouth in the morning and 1 capsule at noon and 1 capsule in the evening. [facility] methocarbam oL 750 mg tablet 2022-0 14 00:00: 00 Yes [id number] 750mg Take 1 tablet by mouth 3 (three) times daily as needed for Pain (scale 7-10). [facility] metformin ER 500 mg 24 hr tablet 2022-0 14 00:00: 00 Yes [id number] 1000mg Take 2 tablets by mouth daily with breakfast. [facility] gabapentin 300 mg capsule 2022-0 14 00:00: 00 Yes [id number] 300mg Take 1 capsule by mouth in the morning and 1 capsule at noon and 1 capsule in the evening. [facility] methocarbam oL 750 mg tablet 2022-0 14 00:00: 00 Yes [id number] 750mg Take 1 tablet by mouth 3 (three) times daily as needed for Pain (scale 7-10). [facility] metformin ER 500 mg 24 hr tablet 0 14 00:00: 00 Yes [id number] 1000mg Take 2 tablets by mouth daily with breakfast. [facility] gabapentin 300 mg capsule 2022-0 14 00:00: 00 Yes [id number] 300mg Take 1 capsule by mouth in the morning and 1 capsule at noon and 1 capsule in the evening. [facility] methocarbam oL 750 mg tablet 2022-0 14 00:00: 00 Yes [id number] 750mg Take 1 tablet by mouth 3 (three) times daily as needed for Pain (scale 7-10). [facility] metformin ER 500 mg 24 hr tablet 2022-0 -14 00:00: 00 Yes [id number] 1000mg Take 2 tablets by mouth daily with breakfast. [facility] gabapentin 300 mg capsule 3-0 -14 00:00: 00 Yes [id number] 300mg Take 1 capsule by mouth in the morning and 1 capsule at noon and 1 capsule in the evening. [facility] methocarbam oL 750 mg tablet 3-0 -14 00:00: 00 Yes [id number] 750mg Take 1 tablet by mouth 3 (three) times daily as needed for Pain (scale 7-10). [facility] metformin ER 500 mg 24 hr tablet 2022-0 -14 00:00: 00 Yes [id number] 1000mg Take 2 tablets by mouth daily with breakfast. [facility] gabapentin 300 mg capsule 2022-0 -14 00:00: 00 Yes [id number] 300mg Take 1 capsule by mouth in the morning and 1 capsule at noon and 1 capsule in the evening. [facility] methocarbam oL 750 mg tablet 2022-0 -14 00:00: 00 Yes [id number] 750mg Take 1 tablet by mouth 3 (three) times daily as needed for Pain (scale 7-10). [facility] metformin ER 500 mg 24 hr tablet 2022-0 -14 00:00: 00 Yes [id number] 1000mg Take 2 tablets by mouth daily with breakfast. [facility] gabapentin 300 mg capsule 2022-0 -14 00:00: 00 Yes [id number] 300mg Take 1 capsule by mouth in the morning and 1 capsule at noon and 1 capsule in the evening. [facility] methocarbam oL 750 mg tablet 2022-0 -14 00:00: 00 Yes [id number] 750mg Take 1 tablet by mouth 3 (three) times daily as needed for Pain (scale 7-10). [facility] metformin ER 500 mg 24 hr tablet 2022-0 -14 00:00: 00 Yes [id number] 1000mg Take 2 tablets by mouth daily with breakfast. [facility] gabapentin 300 mg capsule 3-0 -14 00:00: 00 Yes [id number] 300mg Take 1 capsule by mouth in the morning and 1 capsule at noon and 1 capsule in the evening. [facility] methocarbam oL 750 mg tablet 3-0 -14 00:00: 00 Yes [id number] 750mg Take 1 tablet by mouth 3 (three) times daily as needed for Pain (scale 7-10). [facility] metformin ER 500 mg 24 hr tablet 3-0 4-14 00:00: 00 Yes [id number] 1000mg Take 2 tablets by mouth daily with breakfast. [facility] gabapentin 300 mg capsule 3-0 4-14 00:00: 00 Yes [id number] 300mg Take 1 capsule by mouth in the morning and 1 capsule at noon and 1 capsule in the evening. [facility] methocarbam oL 750 mg tablet 3-0 4-14 00:00: 00 Yes [id number] 750mg Take 1 tablet by mouth 3 (three) times daily as needed for Pain (scale 7-10). [facility] metformin ER 500 mg 24 hr tablet 3-0 -14 00:00: 00 Yes [id number] 1000mg Take 2 tablets by mouth daily with breakfast. [facility] gabapentin 300 mg capsule 3-0 -14 00:00: 00 Yes [id number] 300mg Take 1 capsule by mouth in the morning and 1 capsule at noon and 1 capsule in the evening. [facility] methocarbam oL 750 mg tablet 2022-0 4-14 00:00: 00 Yes [id number] 750mg Take 1 tablet by mouth 3 (three) times daily as needed for Pain (scale 7-10). [facility] metformin ER 500 mg 24 hr tablet 3-0 4-14 00:00: 00 Yes [id number] 1000mg Take 2 tablets by mouth daily with breakfast. [facility] gabapentin 300 mg capsule 3-0 4-14 00:00: 00 Yes [id number] 300mg Take 1 capsule by mouth in the morning and 1 capsule at noon and 1 capsule in the evening. [facility] methocarbam oL 750 mg tablet 3-0 4-14 00:00: 00 Yes [id number] 750mg Take 1 tablet by mouth 3 (three) times daily as needed for Pain (scale 7-10). [facility] metformin ER 500 mg 24 hr tablet 3-0 4-14 00:00: 00 Yes [id number] 1000mg Take 2 tablets by mouth daily with breakfast. [facility] gabapentin 300 mg capsule 2022-0 -14 00:00: 00 Yes [id number] 300mg Take 1 capsule by mouth in the morning and 1 capsule at noon and 1 capsule in the evening. [facility] methocarbam oL 750 mg tablet 2022-0 -14 00:00: 00 Yes [id number] 750mg Take 1 tablet by mouth 3 (three) times daily as needed for Pain (scale 7-10). [facility] metformin ER 500 mg 24 hr tablet 2022-0 -14 00:00: 00 Yes [id number] 1000mg Take 2 tablets by mouth daily with breakfast. [facility] gabapentin 300 mg capsule 2022-0 -14 00:00: 00 Yes [id number] 300mg Take 1 capsule by mouth in the morning and 1 capsule at noon and 1 capsule in the evening. [facility] methocarbam oL 750 mg tablet 2022-0 -14 00:00: 00 Yes [id number] 750mg Take 1 tablet by mouth 3 (three) times daily as needed for Pain (scale 7-10). [facility] metformin ER 500 mg 24 hr tablet 2022-0 14 00:00: 00 Yes [id number] 1000mg Take 2 tablets by mouth daily with breakfast. [facility] gabapentin 300 mg capsule 2022-0 -14 00:00: 00 Yes [id number] 300mg Take 1 capsule by mouth in the morning and 1 capsule at noon and 1 capsule in the evening. [facility] methocarbam oL 750 mg tablet 2022-0 14 00:00: 00 Yes [id number] 750mg Take 1 tablet by mouth 3 (three) times daily as needed for Pain (scale 7-10). [facility] metformin ER 500 mg 24 hr tablet 2022-0 -14 00:00: 00 Yes [id number] 1000mg Take 2 tablets by mouth daily with breakfast. [facility] gabapentin 300 mg capsule 3-0 -14 00:00: 00 Yes [id number] 300mg Take 1 capsule by mouth in the morning and 1 capsule at noon and 1 capsule in the evening. [facility] methocarbam oL 750 mg tablet 0 4-14 00:00: 00 Yes [id number] 750mg Take 1 tablet by mouth 3 (three) times daily as needed for Pain (scale 7-10). [facility] metformin ER 500 mg 24 hr tablet 0 4-14 00:00: 00 Yes [id number] 1000mg Take 2 tablets by mouth daily with breakfast. [facility] gabapentin 300 mg capsule 0 -14 00:00: 00 Yes [id number] 300mg Take 1 capsule by mouth in the morning and 1 capsule at noon and 1 capsule in the evening. [facility] methocarbam oL 750 mg tablet 14 00:00: 00 Yes [id number] 750mg Take 1 tablet by mouth 3 (three) times daily as needed for Pain (scale 7-10). [facility] metformin ER 500 mg 24 hr tablet 14 00:00: 00 Yes [id number] 1000mg Take 2 tablets by mouth daily with breakfast. [facility] gabapentin 300 mg capsule 0 14 00:00: 00 Yes [id number] 300mg Take 1 capsule by mouth in the morning and 1 capsule at noon and 1 capsule in the evening. [facility] methocarbam oL 750 mg tablet 14 00:00: 00 Yes [id number] 750mg Take 1 tablet by mouth 3 (three) times daily as needed for Pain (scale 7-10). [facility] semaglutide (OZEMPIC) 1 mg/dose (4 mg/3 mL) Ij 0 14 00:00: 00 10-07 04:59 :00 No [id number] 1mg inject 1 mg under the skin weekly for 60 days. [facility] semaglutide (OZEMPIC) 1 mg/dose (4 mg/3 mL) PnIj 2022-0 14 00:00: 00 10-07 04:59 :00 No [id number] 1mg inject 1 mg under the skin weekly for 60 days. [facility] semaglutide (OZEMPIC) 1 mg/dose (4 mg/3 mL) Ij 2022-0 4-14 00:00: 00 10-07 04:59 :00 No [id number] 1mg inject 1 mg under the skin weekly for 60 days. [facility] semaglutide (OZEMPIC) 1 mg/dose (4 mg/3 mL) PnIj 3-0 4-14 00:00: 00 10-07 04:59 :00 No [id number] 1mg inject 1 mg under the skin weekly for 60 days. [facility] semaglutide (OZEMPIC) 1 mg/dose (4 mg/3 mL) PnIj 3-0 4-14 00:00: 00 10-07 04:59 :00 No [id number] 1mg inject 1 mg under the skin weekly for 60 days. [facility] semaglutide (OZEMPIC) 1 mg/dose (4 mg/3 mL) PnIj 3-0 4-14 00:00: 00 10-07 04:59 :00 No [id number] 1mg inject 1 mg under the skin weekly for 60 days. [facility] semaglutide (OZEMPIC) 1 mg/dose (4 mg/3 mL) PnIj 3-0 4-14 00:00: 00 10-07 04:59 :00 No [id number] 1mg inject 1 mg under the skin weekly for 60 days. [facility] semaglutide (OZEMPIC) 1 mg/dose (4 mg/3 mL) PnIj 3-0 4-14 00:00: 00 10-07 04:59 :00 No [id number] 1mg inject 1 mg under the skin weekly for 60 days. [facility] semaglutide (OZEMPIC) 1 mg/dose (4 mg/3 mL) PnIj 3-0 4-14 00:00: 00 10-05 04:59 :00 No [id number] 1mg inject 1 mg under the skin weekly for 60 days. [facility] semaglutide (OZEMPIC) 1 mg/dose (4 mg/3 mL) PnIj 2023-0 4-14 00:00: 00 09-18 04:59 :00 No [id number] 1mg inject 1 mg under the skin weekly for 60 days. [facility] semaglutide (OZEMPIC) 1 mg/dose (4 mg/3 mL) PnIj 3-0 4-14 00:00: 00 09-18 04:59 :00 No [id number] 1mg inject 1 mg under the skin weekly for 60 days. [facility] semaglutide (OZEMPIC) 1 mg/dose (4 mg/3 mL) PnIj 3-0 4-14 00:00: 00 09-18 04:59 :00 No [id number] 1mg inject 1 mg under the skin weekly for 60 days. [facility] semaglutide (OZEMPIC) 1 mg/dose (4 mg/3 mL) PnIj 3-0 4-14 00:00: 00 09-18 04:59 :00 No [id number] 1mg inject 1 mg under the skin weekly for 60 days. [facility] semaglutide (OZEMPIC) 1 mg/dose (4 mg/3 mL) PnIj 3-0 4-14 00:00: 00 09-18 04:59 :00 No [id number] 1mg inject 1 mg under the skin weekly for 60 days. [facility] semaglutide (OZEMPIC) 1 mg/dose (4 mg/3 mL) PnIj 3-0 4-14 00:00: 00 09-18 04:59 :00 No [id number] 1mg inject 1 mg under the skin weekly for 60 days. [facility] semaglutide (OZEMPIC) 1 mg/dose (4 mg/3 mL) PnIj 3-0 4-14 00:00: 00 09-18 04:59 :00 No [id number] 1mg inject 1 mg under the skin weekly for 60 days. [facility] semaglutide (OZEMPIC) 1 mg/dose (4 mg/3 mL) PnIj 2023-0 4-14 00:00: 00 09-18 04:59 :00 No [id number] 1mg inject 1 mg under the skin weekly for 60 days. [facility] semaglutide (OZEMPIC) 1 mg/dose (4 mg/3 mL) PnIj 3-0 4-14 00:00: 00 09-18 04:59 :00 No [id number] 1mg inject 1 mg under the skin weekly for 60 days. [facility] semaglutide (OZEMPIC) 1 mg/dose (4 mg/3 mL) PnIj 3-0 4-14 00:00: 00 09-18 04:59 :00 No [id number] 1mg inject 1 mg under the skin weekly for 60 days. [facility] semaglutide (OZEMPIC) 1 mg/dose (4 mg/3 mL) PnIj 3-0 4-14 00:00: 00 09-18 04:59 :00 No [id number] 1mg inject 1 mg under the skin weekly for 60 days. [facility] semaglutide (OZEMPIC) 1 mg/dose (4 mg/3 mL) PnIj 3-0 4-14 00:00: 00 09-18 04:59 :00 No [id number] 1mg inject 1 mg under the skin weekly for 60 days. [facility] semaglutide (OZEMPIC) 1 mg/dose (4 mg/3 mL) PnIj 3-0 4-14 00:00: 00 09-18 04:59 :00 No [id number] 1mg inject 1 mg under the skin weekly for 60 days. [facility] semaglutide (OZEMPIC) 1 mg/dose (4 mg/3 mL) PnIj 3-0 4-14 00:00: 00 07-23 04:59 :00 No [id number] 1mg inject 1 mg under the skin weekly for 60 days. [facility] semaglutide (OZEMPIC) 1 mg/dose (4 mg/3 mL) PnIj 3-0 4-14 00:00: 00 07-23 04:59 :00 No [id number] 1mg inject 1 mg under the skin weekly for 60 days. [facility] semaglutide (OZEMPIC) 1 mg/dose (4 mg/3 mL) PnIj 3-0 4-14 00:00: 00 07-23 04:59 :00 No [id number] 1mg inject 1 mg under the skin weekly for 60 days. [facility] semaglutide (OZEMPIC) 1 mg/dose (4 mg/3 mL) PnIj 3-0 4-14 00:00: 00 07-23 04:59 :00 No [id number] 1mg inject 1 mg under the skin weekly for 60 days. [facility] semaglutide (OZEMPIC) 1 mg/dose (4 mg/3 mL) PnIj 3-0 4-14 00:00: 00 07-23 04:59 :00 No [id number] 1mg inject 1 mg under the skin weekly for 60 days. [facility] semaglutide (OZEMPIC) 1 mg/dose (4 mg/3 mL) PnIj 3-0 4-14 00:00: 00 07-23 04:59 :00 No [id number] 1mg inject 1 mg under the skin weekly for 60 days. [facility] [facility] semaglutide (OZEMPIC) 1 mg/dose (4 mg/3 mL) PnIj 3-0 4-14 00:00: 00 07-23 04:59 :00 No [id number] 1mg inject 1 mg under the skin weekly for 60 days. [facility] semaglutide (OZEMPIC) 1 mg/dose (4 mg/3 mL) PnIj 3-0 4-14 00:00: 00 07-23 04:59 :00 No [id number] 1mg inject 1 mg under the skin weekly for 60 days. [facility] semaglutide (OZEMPIC) 1 mg/dose (4 mg/3 mL) PnIj 3-0 4-14 00:00: 00 07-23 04:59 :00 No [id number] 1mg inject 1 mg under the skin weekly for 60 days. [facility] semaglutide (OZEMPIC) 1 mg/dose (4 mg/3 mL) PnIj 2023-0 4-14 00:00: 00 07-23 04:59 :00 No [id number] 1mg inject 1 mg under the skin weekly for 60 days. [facility] semaglutide (OZEMPIC) 1 mg/dose (4 mg/3 mL) PnIj 3-0 4-14 00:00: 00 07-23 04:59 :00 No [id number] 1mg inject 1 mg under the skin weekly for 60 days. [facility] semaglutide (OZEMPIC) 1 mg/dose (4 mg/3 mL) Ij 2022-0 4-14 00:00: 00 07-23 04:59 :00 No [id number] 1mg inject 1 mg under the skin weekly for 60 days. [facility] semaglutide (OZEMPIC) 1 mg/dose (4 mg/3 mL) Ij 3-0 -14 00:00: 00 07-23 04:59 :00 No [id number] 1mg inject 1 [facility] semaglutide (OZEMPIC) 1 mg/dose (4 mg/3 mL) Ij 3-0 -14 00:00: 00 07-23 04:59 :00 No [id number] 1mg inject 1 mg under the skin weekly for 60 days. [facility] semaglutide (OZEMPIC) 0.25 mg or 0.5 mg (2 mg/3 mL) Ij 3-0 4-14 00:00: 00 07-02 04:59 :00 No [id number] .25mg inject 0.25 mg under the skin weekly [facility] semaglutide (OZEMPIC) 0.25 mg or 0.5 mg (2 mg/3 mL) Ij 3-0 -14 00:00: 00 07-02 04:59 :00 No [id number] .25mg inject 0.25 mg under the skin weekly [facility] semaglutide (OZEMPIC) 0.25 mg or 0.5 mg (2 mg/3 mL) PnIj 2023-0 4-14 00:00: 00 07-02 04:59 :00 No [id number] .25mg inject 0.25 mg [facility] semaglutide (OZEMPIC) 0.25 mg or 0.5 mg (2 mg/3 mL) PnIj 2023-0 4-14 00:00: 07-02 04:59 :00 No [id number] .25mg inject 0.25 mg under the skin weekly [facility] semaglutide (OZEMPIC) 0.25 mg or 0.5 mg (2 mg/3 mL) PnIj 3-0 4-14 00:00: 07-02 04:59 :00 No [id number] .25mg inject 0.25 mg under the skin weekly [facility] semaglutide (OZEMPIC) 0.25 mg or 0.5 mg (2 mg/3 mL) PnIj 3-0 -14 00:00: 00 07-02 04:59 :00 No [id number] .25mg inject 0.25 mg under the skin weekly [facility] semaglutide (OZEMPIC) 0.25 mg or 0.5 mg (2 mg/3 mL) PnIj 3-0 -14 00:00: 07-02 04:59 :00 No [id number] .25mg inject 0.25 mg under the skin weekly [facility] semaglutide (OZEMPIC) 0.25 mg or 0.5 mg(2 mg/1.5 mL) PnIj 3-0 -14 00:00: 00 06-23 04:59 :00 No [id number] .25mg inject 0.25 mg under the skin weekly for 30 days. [facility] semaglutide (OZEMPIC) 0.25 mg or 0.5 mg(2 mg/1.5 mL) PnIj 2023-0 4-14 00:00: 00 06-23 04:59 :00 No [id number] .5mg inject 0.5 mg under the skin weekly for 30 days. [facility] semaglutide (OZEMPIC) 0.25 mg or 0.5 mg(2 mg/1.5 mL) PnIj 2023-0 4-14 00:00: 06-23 04:59 :00 No [id number] .25mg inject 0.25 mg under the skin weekly for 30 days. [facility] semaglutide (OZEMPIC) 0.25 mg or 0.5 mg(2 mg/1.5 mL) PnIj 2023-0 4-14 00:00: 00 06-23 04:59 :00 No [id number] .5mg inject 0.5 mg under the skin weekly for 30 days. [facility] semaglutide (OZEMPIC) 0.25 mg or 0.5 mg(2 mg/1.5 mL) PnIj 3-0 4-14 00:00: 00 06-23 04:59 :00 No [id number] .25mg inject 0.25 mg under the skin weekly for 30 days. [facility] semaglutide (OZEMPIC) 0.25 mg or 0.5 mg(2 mg/1.5 mL) Ij 3-0 14 00:00: 00 06-23 04:59 :00 No [id number] .5mg inject 0.5 mg under the skin weekly for 30 days. [facility] semaglutide (OZEMPIC) 0.25 mg or 0.5 mg(2 mg/1.5 mL) PnIj 3-0 14 00:00: 00 06-23 04:59 :00 No [id number] .25mg inject 0.25 mg under the skin weekly for 30 days. [facility] semaglutide (OZEMPIC) 0.25 mg or 0.5 mg(2 mg/1.5 mL) PnIj 3-0 4-14 00:00: 00 06-23 04:59 :00 No [id number] .5mg inject 0.5 mg under the skin weekly for 30 days. [facility] semaglutide (OZEMPIC) 0.25 mg or 0.5 mg(2 mg/1.5 mL) PnIj 2023-0 4-14 00:00: 00 06-23 04:59 :00 No [id number] .25mg inject 0.25 mg under the skin weekly for 30 days. [facility] semaglutide (OZEMPIC) 0.25 mg or 0.5 mg(2 mg/1.5 mL) PnIj 2023-0 4-14 00:00: 00 06-23 04:59 :00 No [id number] .5mg inject 0.5 mg under the skin weekly for 30 days. [facility] semaglutide (OZEMPIC) 0.25 mg or 0.5 mg(2 mg/1.5 mL) PnIj 3-0 4-14 00:00: 00 06-23 04:59 :00 No [id number] .25mg inject 0.25 mg under the skin weekly for 30 days. [facility] semaglutide (OZEMPIC) 0.25 mg or 0.5 mg(2 mg/1.5 mL) PnIj 3-0 4-14 00:00: 00 06-23 04:59 :00 No [id number] .5mg inject 0.5 mg under the skin weekly for 30 days. [facility] semaglutide (OZEMPIC) 0.25 mg or 0.5 mg (2 mg/3 mL) PnIj 3-0 4-14 00:00: 00 06-23 04:59 :00 No [id number] .5mg inject 0.5 mg under the skin weekly for 30 days. [facility] semaglutide (OZEMPIC) 0.25 mg or 0.5 mg (2 mg/3 mL) PnIj 3-0 4-14 00:00: 00 06-23 04:59 :00 No [id number] .5mg inject 0.5 mg under the skin weekly for 30 days. [facility] semaglutide (OZEMPIC) 0.25 mg or 0.5 mg (2 mg/3 mL) PnIj 3-0 4-14 00:00: 00 06-23 04:59 :00 No [id number] .5mg inject 0.5 mg under the skin weekly for 30 days. [facility] semaglutide (OZEMPIC) 0.25 mg or 0.5 mg (2 mg/3 mL) PnIj 2023-0 4-14 00:00: 06-23 04:59 :00 No [id number] .5mg inject 0.5 mg under the skin weekly for 30 days. [facility] metFORMIN (GLUMETZA) 500 mg 24 hr tablet 2022-0 4-08 00:00: 00 Yes [id number] TAKE 2 TABLETS BY MOUTH 2 TIMES DAILY WITH MEALS. [facility] metFORMIN (GLUMETZA) 500 mg 24 hr tablet 2022-0 4- 00:00: 00 Yes [id number] TAKE 2 TABLETS BY MOUTH 2 TIMES DAILY WITH MEALS. [facility] metFORMIN (GLUMETZA) 500 mg 24 hr tablet 2022-0 4-08 00:00: 00 Yes [id number] TAKE 2 TABLETS BY MOUTH 2 TIMES DAILY WITH MEALS. [facility] metFORMIN (GLUMETZA) 500 mg 24 hr tablet 2022-0 05-17 00:00: 00 05-23 00:00 :00 No [id number] TAKE 2 TABLETS BY MOUTH 2 TIMES DAILY WITH MEALS. [facility] metFORMIN (GLUMETZA) 500 mg 24 hr tablet 2022-0 -08 00:00: 00 05-23 00:00 :00 No [id number] TAKE 2 TABLETS BY MOUTH 2 TIMES DAILY WITH MEALS. [facility] topiramate 50 mg tablet 2022-0 2-20 00:00: 00 Yes [id number] 50mg Take 1 tablet by mouth in the morning. [facility] topiramate 50 mg tablet 2022-0 2-20 00:00: 00 Yes [id number] 50mg Take 1 tablet by mouth in the morning. [facility] topiramate 50 mg tablet 3-0 2-20 00:00: 00 Yes [id number] 50mg Take 1 tablet by mouth in the morning. [facility] topiramate 50 mg tablet 3-0 2-20 00:00: 00 Yes [id number] 50mg Take 1 tablet by mouth in the morning. [facility] topiramate 50 mg tablet 3-0 2-20 00:00: 00 Yes [id number] 50mg Take 1 tablet by mouth in the morning. [facility] topiramate 50 mg tablet 3-0 2-20 00:00: 00 Yes [id number] 50mg Take 1 tablet by mouth in the morning. [facility] topiramate 50 mg tablet 3-0 2-20 00:00: 00 Yes [id number] 50mg Take 1 tablet by mouth in the morning. [facility] topiramate 50 mg tablet 3-0 2-20 00:00: 00 Yes [id number] 50mg Take 1 tablet by mouth in the morning. [facility] topiramate 50 mg tablet 3-0 2-20 00:00: 00 Yes [id number] 50mg Take 1 tablet by mouth in the morning. [facility] topiramate 50 mg tablet 3-0 2-20 00:00: 00 Yes [id number] 50mg Take 1 tablet by mouth in the morning. [facility] topiramate 50 mg tablet 3-0 2-20 00:00: 00 Yes [id number] 50mg Take 1 tablet by mouth in the morning. [facility] topiramate 50 mg tablet 3-0 2-20 00:00: 00 Yes [id number] 50mg Take 1 tablet by mouth in the morning. [facility] topiramate 50 mg tablet 3-0 2-20 00:00: 00 Yes [id number] 50mg Take 1 tablet by mouth in the morning. [facility] topiramate 50 mg tablet 3-0 2-20 00:00: 00 Yes [id number] 50mg Take 1 tablet by mouth in the morning. [facility] topiramate 50 mg tablet 3-0 2-20 00:00: 00 Yes [id number] 50mg Take 1 tablet by mouth in the morning. [facility] topiramate 50 mg tablet 3-0 2-20 00:00: 00 Yes [id number] 50mg Take 1 tablet by mouth in the morning. [facility] topiramate 50 mg tablet 3-0 2-20 00:00: 00 Yes [id number] 50mg Take 1 tablet by mouth in the morning. [facility] topiramate 50 mg tablet 2023-0 2-20 00:00: 00 Yes [id number] 50mg Take 1 tablet by mouth in the morning. [facility]0 2-20 00:00: 00 Yes [id number] 50mg Take 1 tablet by mouth in the morning. [facility] mg tablet 2023-0 2-20 00:00: 00 Yes [id number] 50mg Take 1 tablet by mouth in the morning. [facility] mg tablet 2023-0 2-20 00:00: 00 Yes [id number] 50mg Take 1 tablet by mouth in the morning. [facility] mg tablet 2023-0 2-20 00:00: 00 Yes [id number] 50mg Take 1 tablet by mouth in the morning. [facility] topiramate 50 mg tablet 2023-0 2-20 00:00: 00 Yes [id number] 50mg Take 1 tablet by mouth in the morning. [facility] topiramate 50 mg tablet 2023-0 2-20 00:00: 00 Yes [id number] 50mg Take 1 tablet by mouth in the morning. [facility] topiramate 50 mg tablet 2023-0 2-20 00:00: 00 Yes [id number] 50mg Take 1 tablet by mouth in the morning. [facility] topiramate 50 mg tablet 2023-0 2-20 00:00: 00 Yes [id number] 50mg Take 1 tablet by mouth in the morning. [facility] topiramate 50 mg tablet 2023-0 2-20 00:00: 00 Yes [id number] 50mg Take 1 tablet by mouth in the morning. [facility] topiramate 50 mg tablet 2023-0 2-20 00:00: 00 Yes [id number] 50mg Take 1 tablet by mouth in the morning. [facility] topiramate 50 mg tablet 2023-0 2-20 00:00: 00 Yes [id number] 50mg Take 1 tablet by mouth in the morning. [facility] topiramate 50 mg tablet 2023-0 2-20 00:00: 00 Yes [id number] 50mg Take 1 tablet by mouth in the morning. [facility] topiramate 50 mg tablet 3-0 2-20 00:00: 00 Yes [id number] 50mg Take 1 tablet by mouth in the morning. [facility] topiramate 50 mg tablet 3-0 2-20 00:00: 00 Yes [id number] 50mg Take 1 tablet by mouth in the morning. [facility] topiramate 50 mg tablet 3-0 2-20 00:00: 00 Yes [id number] 50mg Take 1 tablet by mouth in the morning. [facility] topiramate 50 mg tablet 3-0 2-20 00:00: 00 Yes [id number] 50mg Take 1 tablet by mouth in the morning. [facility] topiramate 50 mg tablet 3-0 2-20 00:00: 00 Yes [id number] 50mg Take 1 tablet by mouth in the morning. [facility] topiramate 50 mg tablet 3-0 2-20 00:00: 00 Yes [id number] 50mg Take 1 tablet by mouth in the morning. [facility] topiramate 50 mg tablet 3-0 2-20 00:00: 00 Yes [id number] 50mg Take 1 tablet by mouth in the morning. [facility] topiramate 50 mg tablet 3-0 2-20 00:00: 00 Yes [id number] 50mg Take 1 tablet by mouth in the morning. [facility] topiramate 50 mg tablet 3-0 2-20 00:00: 00 Yes [id number] 50mg Take 1 tablet by mouth in the morning. [facility] topiramate 50 mg tablet 3-0 2-20 00:00: 00 Yes [id number] 50mg Take 1 tablet by mouth in the morning. [facility] topiramate 50 mg tablet 3-0 2-20 00:00: 00 Yes [id number] 50mg Take 1 tablet by mouth in the morning. [facility] topiramate 50 mg tablet 3-0 2-20 00:00: 00 Yes [id number] 50mg Take 1 tablet by mouth in the morning. [facility] topiramate 50 mg tablet 2023-0 2-20 00:00: 00 Yes [id number] 50mg Take 1 tablet by mouth in the morning. [facility] topiramate 50 mg tablet 2023-0 2-20 00:00: 00 Yes [id number] 50mg Take 1 tablet by mouth in the morning. [facility] topiramate 50 mg tablet 2023-0 2-20 00:00: 00 Yes [id number] 50mg Take 1 tablet by mouth in the morning. [facility] topiramate 50 mg tablet 2023-0 2-20 00:00: 00 Yes [id number] 50mg Take 1 tablet by mouth in the morning. [facility] topiramate 50 mg tablet 3-0 2-20 00:00: 00 Yes [id number] 50mg Take 1 tablet by mouth in the morning. [facility] topiramate 50 mg tablet 3-0 2-20 00:00: 00 Yes [id number] 50mg Take 1 tablet by mouth in the morning. [facility] topiramate 50 mg tablet 3-0 2-20 00:00: 00 Yes [id number] 50mg Take 1 tablet by mouth in the morning. [facility] topiramate 50 mg tablet 3-0 2-20 00:00: 00 Yes [id number] 50mg Take 1 tablet by mouth in the morning. [facility] topiramate 50 mg tablet 2023-0 2-20 00:00: 00 Yes [id number] 50mg Take 1 tablet by mouth in the morning. [facility] topiramate 50 mg tablet 2023-0 2-20 00:00: 00 Yes [id number] 50mg Take 1 tablet by mouth in the morning. [facility] topiramate 50 mg tablet 2023-0 2-20 00:00: 00 Yes [id number] 50mg Take 1 tablet by mouth in the morning. [facility] topiramate 50 mg tablet 2023-0 2-20 00:00: 00 Yes [id number] 50mg Take 1 tablet by mouth in the morning. [facility] topiramate 50 mg tablet 2023-0 2-20 00:00: 00 Yes [id number] 50mg Take 1 tablet by mouth in the morning. [facility] topiramate 50 mg tablet 0 2-20 00:00: 00 Yes [id number] 50mg Take 1 tablet by mouth in the morning. [facility] topiramate 50 mg tablet 0 2-20 00:00: 00 Yes [id number] 50mg Take 1 tablet by mouth in the morning. [facility] topiramate 50 mg tablet 0 2-20 00:00: 00 Yes [id number] 50mg Take 1 tablet by mouth in the morning. [facility] topiramate 50 mg tablet 0 -20 00:00: 00 Yes [id number] 50mg Take 1 tablet by mouth in the morning. [facility] topiramate 50 mg tablet 0 20 00:00: 00 Yes [id number] 50mg Take 1 tablet by mouth in the morning. [facility] topiramate 50 mg tablet 0 20 00:00: 00 Yes [id number] 50mg Take 1 tablet by mouth in the morning. [facility] topiramate 50 mg tablet 0 20 00:00: 00 Yes [id number] 50mg Take 1 tablet by mouth in the morning. [facility] Insulin Glargine (LANTUS SOLOSTAR U-100 INSULIN) 100 unit/mL (3 mL) injection 03-18 13:54: 54 Yes 74 units and increase by 2 units every 2 days until fbg less 120 ( max of 80 units daily) [facility] Insulin Glargine (LANTUS SOLOSTAR U-100 INSULIN) 100 unit/mL (3 mL) injection 03-18 13:54: 54 Yes 74 units and increase by 2 units every 2 days until fbg less 120 ( max of 80 units daily) [facility] Insulin Glargine (LANTUS SOLOSTAR U-100 INSULIN) 100 unit/mL (3 mL) injection 03-18 13:54: 54 Yes 74 units and increase by 2 units every 2 days until fbg less 120 ( max of 80 units daily) [facility] (LANTUS SOLOSTAR U-100 INSULIN) 100 unit/mL (3 mL) injection 03-18 13:54: 54 Yes 74 units and increase by 2 units every 2 days until fbg less 120 ( max of 80 units daily) [facility] Insulin Glargine (LANTUS SOLOSTAR U-100 INSULIN) 100 unit/mL (3 mL) injection 03-18 13:54: 54 Yes 74 units and increase by 2 units every 2 days until fbg less 120 ( max of 80 units daily) [facility] Glargine (LANTUS SOLOSTAR U-100 INSULIN) 100 unit/mL (3 mL) injection 03-18 13:54: 54 Yes 74 units and increase by 2 units every 2 days until fbg less 120 ( max of 80 units daily) [facility] Glargine (LANTUS SOLOSTAR U-100 INSULIN) 100 unit/mL (3 mL) injection 03-18 13:54: 54 Yes 74 units and increase by 2 units every 2 days until fbg less 120 ( max of 80 units daily) [facility] Glargine (LANTUS SOLOSTAR U-100 INSULIN) 100 unit/mL (3 mL) injection 03-18 13:54: 54 Yes 74 units and increase by 2 units every 2 days until fbg less 120 ( max of 80 units daily) [facility] Glargine (LANTUS SOLOSTAR U-100 INSULIN) 100 unit/mL (3 mL) injection 03-18 13:54: 54 Yes 74 units and increase by 2 units every 2 days until fbg less 120 ( max of 80 units daily) [facility] Glargine (LANTUS SOLOSTAR U-100 INSULIN) 100 unit/mL (3 mL) injection 03-18 13:54: 54 Yes 74 units and increase by 2 units every 2 days until fbg less 120 ( max of 80 units daily) [facility] Glargine (LANTUS SOLOSTAR U-100 INSULIN) 100 unit/mL (3 mL) injection 03-18 13:54: 54 Yes 74 units and increase by 2 units every 2 days until fbg less 120 ( max of 80 units daily) [facility] Glargine (LANTUS SOLOSTAR U-100 INSULIN) 100 unit/mL (3 mL) injection 03-18 13:54: 54 Yes 74 units and increase by 2 units every 2 days until fbg less 120 ( max of 80 units daily) [facility] Insulin Glargine (LANTUS SOLOSTAR U-100 INSULIN) 100 unit/mL (3 mL) injection 03-18 13:54: 54 Yes 74 units and increase by 2 units every 2 days until fbg less 120 ( max of 80 units daily) [facility] Glargine (LANTUS SOLOSTAR U-100 INSULIN) 100 unit/mL (3 mL) injection 03-18 13:54: 54 Yes 74 units and increase by 2 units every 2 days until fbg less 120 ( max of 80 units daily) [facility] Glargine (LANTUS SOLOSTAR U-100 INSULIN) 100 unit/mL (3 mL) injection 03-18 13:54: 54 Yes 74 units and increase by 2 units every 2 days until fbg less 120 ( max of 80 units daily) [facility] Glargine (LANTUS SOLOSTAR U-100 INSULIN) 100 unit/mL (3 mL) injection 03-18 13:54: 54 Yes 74 units and increase by 2 units every 2 days until fbg less 120 ( max of 80 units daily) [facility] Glargine (LANTUS SOLOSTAR U-100 INSULIN) 100 unit/mL (3 mL) injection 03-18 13:54: 54 Yes 74 units and increase by 2 units every 2 days until fbg less 120 ( max of 80 units daily) [facility] Glargine (LANTUS SOLOSTAR U-100 INSULIN) 100 unit/mL (3 mL) injection 03-18 13:54: 54 Yes 74 units and increase by 2 units every 2 days until fbg less 120 ( max of 80 units daily) [facility] Insulin Glargine (LANTUS SOLOSTAR U-100 INSULIN) 100 unit/mL (3 mL) injection 03-18 13:54: 54 Yes 74 units and increase by 2 units every 2 days until fbg less 120 ( max of 80 units daily) [facility] Insulin Glargine (LANTUS SOLOSTAR U-100 INSULIN) 100 unit/mL (3 mL) injection 03-18 13:54: 54 Yes 74 units and increase by 2 units every 2 days until fbg less 120 ( max of 80 units daily) [facility] nirmatrelvi r-ritonavir (PAXLOVID, EUA,) 300 mg (150 mg x 2)-100 mg tablet 03-02 00:00: 00 Yes [id number] 3{tbl} Take 3 tablets by mouth in the morning and 3 tablets in the evening. [facility] bromphenira mine-pseudo ephedrine-D M (BROMFED DM) 2-30-10 mg/5 mL syrup 03-02 00:00: 00 Yes [id number] 5mL Take 5 mL by mouth 3 (three) times daily as needed for Cold symptoms. [facility] nirmatrelvi r-ritonavir (PAXLOVID, EUA,) 300 mg (150 mg x 2)-100 mg tablet 03-02 00:00: 00 Yes [id number] 3{tbl} Take 3 tablets by mouth in the morning and 3 tablets in the evening. [facility] bromphenira mine-pseudo ephedrine-D M (BROMFED DM) 2-30-10 mg/5 mL syrup 03-02 00:00: 00 Yes [id number] 5mL Take 5 mL by mouth 3 (three) times daily as needed for Cold symptoms. [facility] nirmatrelvi r-ritonavir (PAXLOVID, EUA,) 300 mg (150 mg x 2)-100 mg tablet 03-02 00:00: 00 Yes [id number] 3{tbl} Take 3 tablets by mouth in the morning and 3 tablets in the evening. [facility] bromphenira mine-pseudo ephedrine-D M (BROMFED DM) 2-30-10 mg/5 mL syrup 03-02 00:00: 00 Yes [id number] 5mL Take 5 mL by mouth 3 (three) times daily as needed for Cold symptoms. [facility] nirmatrelvi r-ritonavir (PAXLOVID, EUA,) 300 mg (150 mg x 2)-100 mg tablet 03-02 00:00: 00 Yes [id number] 3{tbl} Take 3 tablets by mouth in the morning and 3 tablets in the evening. [facility] bromphenira mine-pseudo ephedrine-D M (BROMFED DM) 2-30-10 mg/5 mL syrup 03-02 00:00: 00 Yes [id number] 5mL Take 5 mL by mouth 3 (three) times daily as needed for Cold symptoms. [facility] nirmatrelvi r-ritonavir (PAXLOVID, EUA,) 300 mg (150 mg x 2)-100 mg tablet 03-02 00:00: 00 Yes [id number] 3{tbl} Take 3 tablets by mouth in the morning and 3 tablets in the evening. [facility] bromphenira mine-pseudo ephedrine-D M (BROMFED DM) 2-30-10 mg/5 mL syrup 03-02 00:00: 00 Yes [id number] 5mL Take 5 mL by mouth 3 (three) times daily as needed for Cold symptoms. [facility] nirmatrelvi r-ritonavir (PAXLOVID, EUA,) 300 mg (150 mg x 2)-100 mg tablet 03-02 00:00: 00 Yes [id number] 3{tbl} Take 3 tablets by mouth in the morning and 3 tablets in the evening. [facility] bromphenira mine-pseudo ephedrine-D M (BROMFED DM) 2-30-10 mg/5 mL syrup 0 03-02 00:00: 00 Yes [id number] 5mL Take 5 mL by mouth 3 (three) times daily as needed for Cold symptoms. [facility] nirmatrelvi r-ritonavir (PAXLOVID, EUA,) 300 mg (150 mg x 2)-100 mg tablet 2022-0 03-02 00:00: 00 Yes [id number] 3{tbl} Take 3 tablets by mouth in the morning and 3 tablets in the evening. [facility] bromphenira mine-pseudo ephedrine-D M (BROMFED DM) 2-30-10 mg/5 mL syrup 0 03-02 00:00: 00 Yes [id number] 5mL Take 5 mL by mouth 3 (three) times daily as needed for Cold symptoms. [facility] nirmatrelvi r-ritonavir (PAXLOVID, EUA,) 300 mg (150 mg x 2)-100 mg tablet 03-02 00:00: 00 Yes [id number] 3{tbl} Take 3 tablets by mouth in the morning and 3 tablets in the evening. [facility] bromphenira mine-pseudo ephedrine-D M (BROMFED DM) 2-30-10 mg/5 mL syrup 0 03-02 00:00: 00 Yes [id number] 5mL Take 5 mL by mouth 3 (three) times daily as needed for Cold symptoms. [facility] nirmatrelvi r-ritonavir (PAXLOVID, EUA,) 300 mg (150 mg x 2)-100 mg tablet 0 03-02 00:00: 00 Yes [id number] 3{tbl} Take 3 tablets by mouth in the morning and 3 tablets in the evening. [facility] bromphenira mine-pseudo ephedrine-D M (BROMFED DM) 2-30-10 mg/5 mL syrup 0 03-02 00:00: 00 Yes [id number] 5mL Take 5 mL by mouth 3 (three) times daily as needed for Cold symptoms. [facility] nirmatrelvi r-ritonavir (PAXLOVID, EUA,) 300 mg (150 mg x 2)-100 mg tablet 0 03-02 00:00: 00 Yes [id number] 3{tbl} Take 3 tablets by mouth in the morning and 3 tablets in the evening. [facility] bromphenira mine-pseudo ephedrine-D M (BROMFED DM) 2-30-10 mg/5 mL syrup 0 03-02 00:00: 00 Yes [id number] 5mL Take 5 mL by mouth 3 (three) times daily as needed for Cold symptoms. [facility] nirmatrelvi r-ritonavir (PAXLOVID, EUA,) 300 mg (150 mg x 2)-100 mg tablet 03-02 00:00: 00 Yes [id number] 3{tbl} Take 3 tablets by mouth in the morning and 3 tablets in the evening. [facility] bromphenira mine-pseudo ephedrine-D M (BROMFED DM) 2-30-10 mg/5 mL syrup 0 03-02 00:00: 00 Yes [id number] 5mL Take 5 mL by mouth 3 (three) times daily as needed for Cold symptoms. [facility] nirmatrelvi r-ritonavir (PAXLOVID, EUA,) 300 mg (150 mg x 2)-100 mg tablet 03-02 00:00: 00 Yes [id number] 3{tbl} Take 3 tablets by mouth in the morning and 3 tablets in the evening. [facility] bromphenira mine-pseudo ephedrine-D M (BROMFED DM) 2-30-10 mg/5 mL syrup 0 03-02 00:00: 00 Yes [id number] 5mL Take 5 mL by mouth 3 (three) times daily as needed for Cold symptoms. [facility] nirmatrelvi r-ritonavir (PAXLOVID, EUA,) 300 mg (150 mg x 2)-100 mg tablet 03-02 00:00: 00 Yes [id number] 3{tbl} Take 3 tablets by mouth in the morning and 3 tablets in the evening. [facility] bromphenira mine-pseudo ephedrine-D M (BROMFED DM) 2-30-10 mg/5 mL syrup 0 03-02 00:00: 00 Yes [id number] 5mL Take 5 mL by mouth 3 (three) times daily as needed for Cold symptoms. [facility] nirmatrelvi r-ritonavir (PAXLOVID, EUA,) 300 mg (150 mg x 2)-100 mg tablet 03-02 00:00: 00 Yes [id number] 3{tbl} Take 3 tablets by mouth in the morning and 3 tablets in the evening. [facility] bromphenira mine-pseudo ephedrine-D M (BROMFED DM) 2-30-10 mg/5 mL syrup 03-02 00:00: 00 Yes [id number] 5mL Take 5 mL by mouth 3 (three) times daily as needed for Cold symptoms. [facility] nirmatrelvi r-ritonavir (PAXLOVID, EUA,) 300 mg (150 mg x 2)-100 mg tablet 0 03-02 00:00: 00 Yes [id number] 3{tbl} Take 3 tablets by mouth in the morning and 3 tablets in the evening. [facility] bromphenira mine-pseudo ephedrine-D M (BROMFED DM) 2-30-10 mg/5 mL syrup 0 03-02 00:00: 00 Yes [id number] 5mL Take 5 mL by mouth 3 (three) times daily as needed for Cold symptoms. [facility] nirmatrelvi r-ritonavir (PAXLOVID, EUA,) 300 mg (150 mg x 2)-100 mg tablet 03-02 00:00: 00 05-23 00:00 :00 No [id number] 3{tbl} Take 3 tablets by mouth in the morning and 3 tablets in the evening. [facility] bromphenira mine-pseudo ephedrine-D M (BROMFED DM) 2-30-10 mg/5 mL syrup 0 03-02 00:00: 00 05-23 00:00 :00 No [id number] 5mL Take 5 mL by mouth 3 (three) times daily as needed for Cold symptoms. [facility] nirmatrelvi r-ritonavir (PAXLOVID, EUA,) 300 mg (150 mg x 2)-100 mg tablet 03-02 00:00: 00 05-23 00:00 :00 No [id number] 3{tbl} Take 3 tablets by mouth in the morning and 3 tablets in the evening. [facility] bromphenira mine-pseudo ephedrine-D M (BROMFED DM) 2-30-10 mg/5 mL syrup 03-02 00:00: 00 05-23 00:00 :00 No [id number] 5mL Take 5 mL by mouth 3 (three) times daily as needed for Cold symptoms. [facility] topiramate 50 mg tablet 02-25 00:00: 00 Yes [id number] 50mg Take 1 tablet by mouth in the morning. [facility] topiramate 50 mg tablet 02-25 00:00: 00 Yes [id number] 50mg Take 1 tablet by mouth in the morning. [facility] topiramate 50 mg tablet 02-25 00:00: 00 Yes [id number] 50mg Take 1 tablet by mouth in the morning. [facility] topiramate 50 mg tablet 02-25 00:00: 00 Yes [id number] 50mg Take 1 tablet by mouth in the morning. [facility] topiramate 50 mg tablet 02-25 00:00: 00 Yes [id number] 50mg Take 1 tablet by mouth in the morning. [facility] topiramate 50 mg tablet 02-25 00:00: 00 Yes [id number] 50mg Take 1 tablet by mouth in the morning. [facility] topiramate 50 mg tablet 02-25 00:00: 00 Yes [id number] 50mg Take 1 tablet by mouth in the morning. [facility] topiramate 50 mg tablet 2023-0 1-17 00:00: 00 Yes [id number] 50mg Take 1 tablet by mouth in the morning. [facility] topiramate 50 mg tablet 2022-0 1-17 00:00: 00 Yes [id number] 50mg Take 1 tablet by mouth in the morning. [facility] topiramate 50 mg tablet 2022-0 1-17 00:00: 00 03-31 00:00 :00 No [id number] 50mg Take 1 tablet by mouth in the morning. [facility] topiramate 50 mg tablet 2022-0 1-17 00:00: 00 03-31 00:00 :00 No [id number] 50mg Take 1 tablet by mouth in the morning. [facility] topiramate 50 mg tablet 0 17 00:00: 00 03-31 00:00 :00 No [id number] 50mg Take 1 tablet by mouth in the morning. [facility] topiramate 50 mg tablet 0 -17 00:00: 00 03-31 00:00 :00 No [id number] 50mg Take 1 tablet by mouth in the morning. [facility] topiramate 50 mg tablet 17 00:00: 00 03-31 00:00 :00 No [id number] 50mg Take 1 tablet by mouth in the morning. [facility] topiramate 50 mg tablet 2022-0 17 00:00: 00 03-31 00:00 :00 No [id number] 50mg Take 1 tablet by mouth in the morning. [facility] liraglutide 0.6 mg/0.1 mL (18 mg/3 mL) injection 02-22 00:00: 00 Yes [id number] Take 0.6mg daily for 2 weeks, then increase to 1.2mg daily if tolerate , can further increase to 1.8mg daily in 2 weeks if tolerate [facility] liraglutide 0.6 mg/0.1 mL (18 mg/3 mL) injection 02-22 00:00: 00 Yes [id number] Take 0.6mg daily for 2 weeks, then increase to 1.2mg daily if tolerate , can further increase to 1.8mg daily in 2 weeks if tolerate [facility] liraglutide 0.6 mg/0.1 mL (18 mg/3 mL) injection 02-22 00:00: 00 Yes [id number] Take 0.6mg daily for 2 weeks, then increase to 1.2mg daily if tolerate , can further increase to 1.8mg daily in 2 weeks if tolerate [facility] liraglutide 0.6 mg/0.1 mL (18 mg/3 mL) injection 02-22 00:00: 00 Yes [id number] Take 0.6mg daily for 2 weeks, then increase to 1.2mg daily if tolerate , can further increase to 1.8mg daily in 2 weeks if tolerate [facility] liraglutide 0.6 mg/0.1 mL (18 mg/3 mL) injection 02-22 00:00: 00 Yes [id number] Take 0.6mg daily for 2 weeks, then increase to 1.2mg daily if tolerate , can further increase to 1.8mg daily in 2 weeks if tolerate [facility] liraglutide 0.6 mg/0.1 mL (18 mg/3 mL) injection 02-22 00:00: 00 Yes [id number] Take 0.6mg daily for 2 weeks, then increase to 1.2mg daily if tolerate , can further increase to 1.8mg daily in 2 weeks if tolerate [facility] liraglutide 0.6 mg/0.1 mL (18 mg/3 mL) injection 02-22 00:00: 00 Yes [id number] Take 0.6mg daily for 2 weeks, then increase to 1.2mg daily if tolerate , can further increase to 1.8mg daily in 2 weeks if tolerate [facility] liraglutide 0.6 mg/0.1 mL (18 mg/3 mL) injection 02-22 00:00: 00 Yes [id number] Take 0.6mg daily for 2 weeks, then increase to 1.2mg daily if tolerate , can further increase to 1.8mg daily in 2 weeks if tolerate [facility] liraglutide 0.6 mg/0.1 mL (18 mg/3 mL) injection 02-22 00:00: 00 Yes [id number] Take 0.6mg daily for 2 weeks, then increase to 1.2mg daily if tolerate , can further increase to 1.8mg daily in 2 weeks if tolerate [facility] liraglutide 0.6 mg/0.1 mL (18 mg/3 mL) injection 02-22 00:00: 00 Yes [id number] Take 0.6mg daily for 2 weeks, then increase to 1.2mg daily if tolerate , can further increase to 1.8mg daily in 2 weeks if tolerate [facility] liraglutide 0.6 mg/0.1 mL (18 mg/3 mL) injection 02-22 00:00: 00 Yes [id number] Take 0.6mg daily for 2 weeks, then increase to 1.2mg daily if tolerate , can further increase to 1.8mg daily in 2 weeks if tolerate [facility] liraglutide 0.6 mg/0.1 mL (18 mg/3 mL) injection 02-22 00:00: 00 Yes [id number] Take 0.6mg daily for 2 weeks, then increase to 1.2mg daily if tolerate , can further increase to 1.8mg daily in 2 weeks if tolerate [facility] liraglutide 0.6 mg/0.1 mL (18 mg/3 mL) injection 02-22 00:00: 00 Yes [id number] Take 0.6mg daily for 2 weeks, then increase to 1.2mg daily if tolerate , can further increase to 1.8mg daily in 2 weeks if tolerate [facility] liraglutide 0.6 mg/0.1 mL (18 mg/3 mL) injection 02-22 00:00: 00 Yes [id number] Take 0.6mg daily for 2 weeks, then increase to 1.2mg daily if tolerate , can further increase to 1.8mg daily in 2 weeks if tolerate [facility] liraglutide 0.6 mg/0.1 mL (18 mg/3 mL) injection 02-22 00:00: 00 Yes [id number] Take 0.6mg daily for 2 weeks, then increase to 1.2mg daily if tolerate , can further increase to 1.8mg daily in 2 weeks if tolerate [facility] liraglutide 0.6 mg/0.1 mL (18 mg/3 mL) injection 02-22 00:00: 00 Yes [id number] Take 0.6mg daily for 2 weeks, then increase to 1.2mg daily if tolerate , can further increase to 1.8mg daily in 2 weeks if tolerate [facility] liraglutide 0.6 mg/0.1 mL (18 mg/3 mL) injection 02-22 00:00: 00 Yes [id number] Take 0.6mg daily for 2 weeks, then increase to 1.2mg daily if tolerate , can further increase to 1.8mg daily in 2 weeks if tolerate [facility] liraglutide 0.6 mg/0.1 mL (18 mg/3 mL) injection 02-22 00:00: 00 Yes [id number] Take 0.6mg daily for 2 weeks, then increase to 1.2mg daily if tolerate , can further increase to 1.8mg daily in 2 weeks if tolerate [facility] liraglutide 0.6 mg/0.1 mL (18 mg/3 mL) injection 02-22 00:00: 00 Yes [id number] Take 0.6mg daily for 2 weeks, then increase to 1.2mg daily if tolerate , can further increase to 1.8mg daily in 2 weeks if tolerate [facility] liraglutide 0.6 mg/0.1 mL (18 mg/3 mL) injection 02-22 00:00: 00 Yes [id number] Take 0.6mg daily for 2 weeks, then increase to 1.2mg daily if tolerate , can further increase to 1.8mg daily in 2 weeks if tolerate [facility] liraglutide 0.6 mg/0.1 mL (18 mg/3 mL) injection 02-22 00:00: 00 05-23 00:00 :00 No [id number] Take 0.6mg daily for 2 weeks, then increase to 1.2mg daily if tolerate , can further increase to 1.8mg daily in 2 weeks if tolerate [facility] liraglutide 0.6 mg/0.1 mL (18 mg/3 mL) injection 02-22 00:00: 00 05-23 00:00 :00 No [id number] Take 0.6mg daily for 2 weeks, then increase to 1.2mg daily if tolerate , can further increase to 1.8mg daily in 2 weeks if tolerate [facility] ketorolac (TORADOL) injection 30 mg 02-20 01:00: 00 02-20 00:30 :00 No 30mg 30 mg, Intramuscu lar, ONCE, 1 dose, On Thu02/19/22 at 1900, Routine [facility] acetaminoph en (TYLENOL) tablet 1,000 mg 02-20 01:00: 00 02-20 00:30 :00 No 1000mg 1,000 mg, Oral, ONCE, 1 dose, On Thu02/19/22 at 1900, NELL [facility] diphenhydrA MINE (BENADRYL) injection 25 mg 02-20 00:30: 00 02-20 00:30 :00 No 25mg 25 mg, Intramuscu lar, ONCE, 1 dose, On Thu02/19/22 at 1830, STAT [facility] metoclopram karely HCl (REGLAN) injection 10 mg 02-20 00:30: 00 02-20 00:30 :00 No 10mg 10 mg, Intramuscu lar, ONCE, 1 dose, On Thu02/19/22 at 1830, NELL [facility] butalbital- aspirin-caf feine (FIORINAL) 50-325-40 mg per capsule 02-19 00:00: 00 Yes [id number] 1{capsu le} Take 1 capsule by mouth every 6 (six) hours as needed for Pain. [facility] butalbital- aspirin-caf feine (FIORINAL) 50-325-40 mg per capsule 02-19 00:00: 00 Yes [id number] 1{capsu le} Take 1 capsule by mouth every 6 (six) hours as needed for Pain. [facility] butalbital- aspirin-caf feine (FIORINAL) 50-325-40 mg per capsule 02-19 00:00: 00 Yes [id number] 1{capsu le} Take 1 capsule by mouth every 6 (six) hours as needed for Pain. [facility] butalbital- aspirin-caf feine (FIORINAL) 50-325-40 mg per capsule 02-19 00:00: 00 Yes [id number] 1{capsu le} Take 1 capsule by mouth every 6 (six) hours as needed for Pain. [facility] butalbital- aspirin-caf feine (FIORINAL) 50-325-40 mg per capsule 02-19 00:00: 00 Yes [id number] 1{capsu le} Take 1 capsule by mouth every 6 (six) hours as needed for Pain. [facility] butalbital- aspirin-caf feine (FIORINAL) 50-325-40 mg per capsule 02-19 00:00: 00 Yes [id number] 1{capsu le} Take 1 capsule by mouth every 6 (six) hours as needed for Pain. [facility] butalbital- aspirin-caf feine (FIORINAL) 50-325-40 mg per capsule 02-19 00:00: 00 Yes [id number] 1{capsu le} Take 1 capsule by mouth every 6 (six) hours as needed for Pain. [facility] butalbital- aspirin-caf feine (FIORINAL) 50-325-40 mg per capsule 02-19 00:00: 00 Yes [id number] 1{capsu le} Take 1 capsule by mouth every 6 (six) hours as needed for Pain. [facility] butalbital- aspirin-caf feine (FIORINAL) 50-325-40 mg per capsule 02-19 00:00: 00 Yes [id number] 1{capsu le} Take 1 capsule by mouth every 6 (six) hours as needed for Pain. [facility] butalbital- aspirin-caf feine (FIORINAL) 50-325-40 mg per capsule 02-19 00:00: 00 Yes [id number] 1{capsu le} Take 1 capsule by mouth every 6 (six) hours as needed for Pain. [facility] butalbital- aspirin-caf feine (FIORINAL) 50-325-40 mg per capsule 02-19 00:00: 00 Yes [id number] 1{capsu le} Take 1 capsule by mouth every 6 (six) hours as needed for Pain. [facility] butalbital- aspirin-caf feine (FIORINAL) 50-325-40 mg per capsule 02-19 00:00: 00 Yes [id number] 1{capsu le} Take 1 capsule by mouth every 6 (six) hours as needed for Pain. [facility] butalbital- aspirin-caf feine (FIORINAL) 50-325-40 mg per capsule 02-19 00:00: 00 Yes [id number] 1{capsu le} Take 1 capsule by mouth every 6 (six) hours as needed for Pain. [facility] butalbital- aspirin-caf feine (FIORINAL) 50-325-40 mg per capsule 02-19 00:00: 00 Yes [id number] 1{capsu le} Take 1 capsule by mouth every 6 (six) hours as needed for Pain. [facility] butalbital- aspirin-caf feine (FIORINAL) 50-325-40 mg per capsule 02-19 00:00: 00 Yes [id number] 1{capsu le} Take 1 capsule by mouth every 6 (six) hours as needed for Pain. [facility] butalbital- aspirin-caf feine (FIORINAL) 50-325-40 mg per capsule 02-19 00:00: 00 Yes [id number] 1{capsu le} Take 1 capsule by mouth every 6 (six) hours as needed for Pain. [facility] butalbital- aspirin-caf feine (FIORINAL) 50-325-40 mg per capsule 02-19 00:00: 00 Yes [id number] 1{capsu le} Take 1 capsule by mouth every 6 (six) hours as needed for Pain. [facility] butalbital- aspirin-caf feine (FIORINAL) 50-325-40 mg per capsule 02-19 00:00: 00 Yes [id number] 1{capsu le} Take 1 capsule by mouth every 6 (six) hours as needed for Pain. [facility] butalbital- aspirin-caf feine (FIORINAL) 50-325-40 mg per capsule 02-19 00:00: 00 Yes [id number] 1{capsu le} Take 1 capsule by mouth every 6 (six) hours as needed for Pain. [facility] butalbital- aspirin-caf feine (FIORINAL) 50-325-40 mg per capsule 02-19 00:00: 00 Yes [id number] 1{capsu le} Take 1 capsule by mouth every 6 (six) hours as needed for Pain. [facility] butalbital- aspirin-caf feine (FIORINAL) 50-325-40 mg per capsule 02-19 00:00: 00 Yes [id number] 1{capsu le} Take 1 capsule by mouth every 6 (six) hours as needed for Pain. [facility] butalbital- aspirin-caf feine (FIORINAL) 50-325-40 mg per capsule 02-19 00:00: 00 Yes [id number] 1{capsu le} Take 1 capsule by mouth every 6 (six) hours as needed for Pain. [facility] butalbital- aspirin-caf feine (FIORINAL) 50-325-40 mg per capsule 02-19 00:00: 00 Yes [id number] 1{capsu le} Take 1 capsule by mouth every 6 (six) hours as needed for Pain. [facility] butalbital- aspirin-caf feine (FIORINAL) 50-325-40 mg per capsule 02-19 00:00: 00 Yes [id number] 1{capsu le} Take 1 capsule by mouth every 6 (six) hours as needed for Pain. [facility]- aspirin-caf feine (FIORINAL) 50-325-40 mg per capsule 02-19 00:00: 00 Yes [id number] 1{capsu le} Take 1 capsule by mouth every 6 (six) hours as needed for Pain. [facility] butalbital- aspirin-caf feine (FIORINAL) 50-325-40 mg per capsule 02-19 00:00: 00 Yes [id number] 1{capsu le} Take 1 capsule by mouth every 6 (six) hours as needed for Pain. [facility] butalbital- aspirin-caf feine (FIORINAL) 50-325-40 mg per capsule 02-19 00:00: 00 Yes [id number] 1{capsu le} Take 1 capsule by mouth every 6 (six) hours as needed for Pain. [facility] butalbital- aspirin-caf feine (FIORINAL) 50-325-40 mg per capsule 02-19 00:00: 00 Yes [id number] 1{capsu le} Take 1 capsule by mouth every 6 (six) hours as needed for Pain. [facility] butalbital- aspirin-caf feine (FIORINAL) 50-325-40 mg per capsule 02-19 00:00: 00 Yes [id number] 1{capsu le} Take 1 capsule by mouth every 6 (six) hours as needed for Pain. [facility] butalbital- aspirin-caf feine (FIORINAL) 50-325-40 mg per capsule 02-19 00:00: 00 Yes [id number] 1{capsu le} Take 1 capsule by mouth every 6 (six) hours as needed for Pain. [facility] butalbital- aspirin-caf feine (FIORINAL) 50-325-40 mg per capsule 02-19 00:00: 00 Yes [id number] 1{capsu le} Take 1 capsule by mouth every 6 (six) hours as needed for Pain. [facility] butalbital- aspirin-caf feine (FIORINAL) 50-325-40 mg per capsule 02-19 00:00: 00 Yes [id number] 1{capsu le} Take 1 capsule by mouth every 6 (six) hours as needed for Pain. [facility] butalbital- aspirin-caf feine (FIORINAL) 50-325-40 mg per capsule 02-19 00:00: 00 Yes [id number] 1{capsu le} Take 1 capsule by mouth every 6 (six) hours as needed for Pain. [facility] butalbital- aspirin-caf feine (FIORINAL) 50-325-40 mg per capsule 02-19 00:00: 00 Yes [id number] 1{capsu le} Take 1 capsule by mouth every 6 (six) hours as needed for Pain. [facility] butalbital- aspirin-caf feine (FIORINAL) 50-325-40 mg per capsule 02-19 00:00: 00 Yes [id number] 1{capsu le} Take 1 capsule by mouth every 6 (six) hours as needed for Pain. [facility] butalbital- aspirin-caf feine (FIORINAL) 50-325-40 mg per capsule 02-19 00:00: 00 Yes [id number] 1{capsu le} Take 1 capsule by mouth every 6 (six) hours as needed for Pain. [facility] butalbital- aspirin-caf feine (FIORINAL) 50-325-40 mg per capsule 02-19 00:00: 00 Yes [id number] 1{capsu le} Take 1 capsule by mouth every 6 (six) hours as needed for Pain. [facility] butalbital- aspirin-caf feine (FIORINAL) 50-325-40 mg per capsule 02-19 00:00: 00 Yes [id number] 1{capsu le} Take 1 capsule by mouth every 6 (six) hours as needed for Pain. [facility] butalbital- aspirin-caf feine (FIORINAL) 50-325-40 mg per capsule 02-19 00:00: 00 Yes [id number] 1{capsu le} Take 1 capsule by mouth every 6 (six) hours as needed for Pain. [facility] butalbital- aspirin-caf feine (FIORINAL) 50-325-40 mg per capsule 02-19 00:00: 00 Yes [id number] 1{capsu le} Take 1 capsule by mouth every 6 (six) hours as needed for Pain. [facility] butalbital- aspirin-caf feine (FIORINAL) 50-325-40 mg per capsule 02-19 00:00: 00 Yes [id number] 1{capsu le} Take 1 capsule by mouth every 6 (six) hours as needed for Pain. [facility] butalbital- aspirin-caf feine (FIORINAL) 50-325-40 mg per capsule 02-19 00:00: 00 Yes [id number] 1{capsu le} Take 1 capsule by mouth every 6 (six) hours as needed for Pain. [facility] butalbital- aspirin-caf feine (FIORINAL) 50-325-40 mg per capsule 02-19 00:00: 00 Yes [id number] 1{capsu le} Take 1 capsule by mouth every 6 (six) hours as needed for Pain. [facility] butalbital- aspirin-caf feine (FIORINAL) 50-325-40 mg per capsule 02-19 00:00: 00 Yes [id number] 1{capsu le} Take 1 capsule by mouth every 6 (six) hours as needed for Pain. [facility] butalbital- aspirin-caf feine (FIORINAL) 50-325-40 mg per capsule 02-19 00:00: 00 Yes [id number] 1{capsu le} Take 1 capsule by mouth every 6 (six) hours as needed for Pain. [facility] butalbital- aspirin-caf feine (FIORINAL) 50-325-40 mg per capsule 02-19 00:00: 00 Yes [id number] 1{capsu le} Take 1 capsule by mouth every 6 (six) hours as needed for Pain. [facility] butalbital- aspirin-caf feine (FIORINAL) 50-325-40 mg per capsule 02-19 00:00: 00 Yes [id number] 1{capsu le} Take 1 capsule by mouth every 6 (six) hours as needed for Pain. [facility] butalbital- aspirin-caf feine (FIORINAL) 50-325-40 mg per capsule 02-19 00:00: 00 Yes [id number] 1{capsu le} Take 1 capsule by mouth every 6 (six) hours as needed for Pain. [facility] butalbital- aspirin-caf feine (FIORINAL) 50-325-40 mg per capsule 02-19 00:00: 00 Yes [id number] 1{capsu le} Take 1 capsule by mouth every 6 (six) hours as needed for Pain. [facility] butalbital- aspirin-caf feine (FIORINAL) 50-325-40 mg per capsule 02-19 00:00: 00 Yes [id number] 1{capsu le} Take 1 capsule by mouth every 6 (six) hours as needed for Pain. [facility] butalbital- aspirin-caf feine (FIORINAL) 50-325-40 mg per capsule 02-19 00:00: 00 Yes [id number] 1{capsu le} Take 1 capsule by mouth every 6 (six) hours as needed for Pain. [facility] butalbital- aspirin-caf feine (FIORINAL) 50-325-40 mg per capsule 02-19 00:00: 00 Yes [id number] 1{capsu le} Take 1 capsule by mouth every 6 (six) hours as needed for Pain. [facility] butalbital- aspirin-caf feine (FIORINAL) 50-325-40 mg per capsule 02-19 00:00: 00 Yes [id number] 1{capsu le} Take 1 capsule by mouth every 6 (six) hours as needed for Pain. [facility] butalbital- aspirin-caf feine (FIORINAL) 50-325-40 mg per capsule 02-19 00:00: 00 Yes [id number] 1{capsu le} Take 1 capsule by mouth every 6 (six) hours as needed for Pain. [facility]- aspirin-caf feine (FIORINAL) 50-325-40 mg per capsule 02-19 00:00: 00 Yes [id number] 1{capsu le} Take 1 capsule by mouth every 6 (six) hours as needed for Pain. [facility] butalbital- aspirin-caf feine (FIORINAL) 50-325-40 mg per capsule 02-19 00:00: 00 Yes [id number] 1{capsu le} Take 1 capsule by mouth every 6 (six) hours as needed for Pain. [facility] butalbital- aspirin-caf feine (FIORINAL) 50-325-40 mg per capsule 02-19 00:00: 00 Yes [id number] 1{capsu le} Take 1 capsule by mouth every 6 (six) hours as needed for Pain. [facility] butalbital- aspirin-caf feine (FIORINAL) 50-325-40 mg per capsule 02-19 00:00: 00 Yes [id number] 1{capsu le} Take 1 capsule by mouth every 6 (six) hours as needed for Pain. [facility] butalbital- aspirin-caf feine (FIORINAL) 50-325-40 mg per capsule 02-19 00:00: 00 Yes [id number] 1{capsu le} Take 1 capsule by mouth every 6 (six) hours as needed for Pain. [facility] butalbital- aspirin-caf feine (FIORINAL) 50-325-40 mg per capsule 02-19 00:00: 00 Yes [id number] 1{capsu le} Take 1 capsule by mouth every 6 (six) hours as needed for Pain. [facility] butalbital- aspirin-caf feine (FIORINAL) 50-325-40 mg per capsule 02-19 00:00: 00 Yes [id number] 1{capsu le} Take 1 capsule by mouth every 6 (six) hours as needed for Pain. [facility] butalbital- aspirin-caf feine (FIORINAL) 50-325-40 mg per capsule 02-19 00:00: 00 Yes [id number] 1{capsu le} Take 1 capsule by mouth every 6 (six) hours as needed for Pain. [facility] butalbital- aspirin-caf feine (FIORINAL) 50-325-40 mg per capsule 02-19 00:00: 00 Yes [id number] 1{capsu le} Take 1 capsule by mouth every 6 (six) hours as needed for Pain. [facility] butalbital- aspirin-caf feine (FIORINAL) 50-325-40 mg per capsule 02-19 00:00: 00 Yes [id number] 1{capsu le} Take 1 capsule by mouth every 6 (six) hours as needed for Pain. [facility] butalbital- aspirin-caf feine (FIORINAL) 50-325-40 mg per capsule 02-19 00:00: 00 Yes [id number] 1{capsu le} Take 1 capsule by mouth every 6 (six) hours as needed for Pain. [facility] butalbital- aspirin-caf feine (FIORINAL) 50-325-40 mg per capsule 02-19 00:00: 00 Yes [id number] 1{capsu le} Take 1 capsule by mouth every 6 (six) hours as needed for Pain. [facility] butalbital- aspirin-caf feine (FIORINAL) 50-325-40 mg per capsule 02-19 00:00: 00 Yes [id number] 1{capsu le} Take 1 capsule by mouth every 6 (six) hours as needed for Pain. [facility] butalbital- aspirin-caf feine (FIORINAL) 50-325-40 mg per capsule 02-19 00:00: 00 Yes [id number] 1{capsu le} Take 1 capsule by mouth every 6 (six) hours as needed for Pain. [facility]-caf feine (FIORINAL) 50-325-40 mg per capsule 02-19 00:00: 00 Yes [id number] 1{capsu le} Take 1 capsule by mouth every 6 (six) hours as needed for Pain. [facility] butalbital- aspirin-caf feine (FIORINAL) 50-325-40 mg per capsule 02-19 00:00: 00 Yes [id number] 1{capsu le} Take 1 capsule by mouth every 6 (six) hours as needed for Pain. [facility] butalbital- aspirin-caf feine (FIORINAL) 50-325-40 mg per capsule 02-19 00:00: 00 Yes [id number] 1{capsu le} Take 1 capsule by mouth every 6 (six) hours as needed for Pain. [facility] butalbital- aspirin-caf feine (FIORINAL) 50-325-40 mg per capsule 02-19 00:00: 00 Yes [id number] 1{capsu le} Take 1 capsule by mouth every 6 (six) hours as needed for Pain. [facility] butalbital- aspirin-caf feine (FIORINAL) 50-325-40 mg per capsule 02-19 00:00: 00 Yes [id number] 1{capsu le} Take 1 capsule by mouth every 6 (six) hours as needed for Pain. [facility] butalbital- aspirin-caf feine (FIORINAL) 50-325-40 mg per capsule 02-19 00:00: 00 Yes [id number] 1{capsu le} Take 1 capsule by mouth every 6 (six) hours as needed for Pain. [facility] butalbital- aspirin-caf feine (FIORINAL) 50-325-40 mg per capsule 02-19 00:00: 00 Yes [id number] 1{capsu le} Take 1 capsule by mouth every 6 (six) hours as needed for Pain. [facility] butalbital- aspirin-caf feine (FIORINAL) 50-325-40 mg per capsule 02-19 00:00: 00 Yes [id number] 1{capsu le} Take 1 capsule by mouth every 6 (six) hours as needed for Pain. [facility] butalbital- aspirin-caf feine (FIORINAL) 50-325-40 mg per capsule 02-19 00:00: 00 Yes [id number] 1{capsu le} Take 1 capsule by mouth every 6 (six) hours as needed for Pain. [facility] butalbital- aspirin-caf feine (FIORINAL) 50-325-40 mg per capsule 02-19 00:00: 00 Yes [id number] 1{capsu le} Take 1 capsule by mouth every 6 (six) hours as needed for Pain. [facility] sumatriptan 100 mg tablet 02-18 00:00: 00 Yes [id number] 100mg Take 1 tablet by mouth as needed for Migraine. Daily prn [facility] sumatriptan 100 mg tablet 02-18 00:00: 00 Yes [id number] 100mg Take 1 tablet by mouth as needed for Migraine. Daily prn [facility] topiramate 25 mg tablet 0 - 00:00: 00 Yes [id number] 25mg Take 1 tablet by mouth in the morning and 1 tablet in the evening. [facility] sumatriptan 100 mg tablet 0 - 00:00: 00 Yes [id number] 100mg Take 1 tablet by mouth as needed for Migraine. Daily prn [facility] topiramate 25 mg tablet - 00:00: 00 Yes [id number] 25mg Take 1 tablet by mouth in the morning and 1 tablet in the evening. [facility] sumatriptan 100 mg tablet 2022-0 -10 00:00: 00 Yes [id number] 100mg Take 1 tablet by mouth as needed for Migraine. Daily prn [facility] topiramate 25 mg tablet 0 - 00:00: 00 Yes [id number] 25mg Take 1 tablet by mouth in the morning and 1 tablet in the evening. [facility] sumatriptan 100 mg tablet 2022-0 - 00:00: 00 Yes [id number] 100mg Take 1 tablet by mouth as needed for Migraine. Daily prn [facility] sumatriptan 100 mg tablet 2022-0 - 00:00: 00 Yes [id number] 100mg Take 1 tablet by mouth as needed for Migraine. Daily prn [facility] sumatriptan 100 mg tablet 0 - 00:00: 00 Yes [id number] 100mg Take 1 tablet by mouth as needed for Migraine. Daily prn [facility] sumatriptan 100 mg tablet 2022-0 - 00:00: 00 Yes [id number] 100mg Take 1 tablet by mouth as needed for Migraine. Daily prn [facility] sumatriptan 100 mg tablet 2022-0 - 00:00: 00 Yes [id number] 100mg Take 1 tablet by mouth as needed for Migraine. Daily prn [facility] sumatriptan 100 mg tablet 2022-0 - 00:00: 00 Yes [id number] 100mg Take 1 tablet by mouth as needed for Migraine. Daily prn [facility] sumatriptan 100 mg tablet 2022-0 -10 00:00: 00 Yes [id number] 100mg Take 1 tablet by mouth as needed for Migraine. Daily prn [facility] sumatriptan 100 mg tablet 2022-0 -10 00:00: 00 Yes [id number] 100mg Take 1 tablet by mouth as needed for Migraine. Daily prn [facility] sumatriptan 100 mg tablet 2022-0 -10 00:00: 00 Yes [id number] 100mg Take 1 tablet by mouth as needed for Migraine. Daily prn [facility] sumatriptan 100 mg tablet 2022-0 -10 00:00: 00 Yes [id number] 100mg Take 1 tablet by mouth as needed for Migraine. Daily prn [facility] sumatriptan 100 mg tablet 2022-0 -10 00:00: 00 Yes [id number] 100mg Take 1 tablet by mouth as needed for Migraine. Daily prn [facility] sumatriptan 100 mg tablet 3-0 -10 00:00: 00 Yes [id number] 100mg Take 1 tablet by mouth as needed for Migraine. Daily prn [facility] sumatriptan 100 mg tablet 3-0 -10 00:00: 00 Yes [id number] 100mg Take 1 tablet by mouth as needed for Migraine. Daily prn [facility] sumatriptan 100 mg tablet 2022-0 - 00:00: 00 Yes [id number] 100mg Take 1 tablet by mouth as needed for Migraine. Daily prn [facility] sumatriptan 100 mg tablet 2022-0 - 00:00: 00 Yes [id number] 100mg Take 1 tablet by mouth as needed for Migraine. Daily prn [facility] sumatriptan 100 mg tablet 3-0 02-18 00:00: 00 Yes [id number] 100mg Take 1 tablet by mouth as needed for Migraine. Daily prn [facility] sumatriptan 100 mg tablet 2022-0 02-18 00:00: 00 Yes [id number] 100mg Take 1 tablet by mouth as needed for Migraine. Daily prn [facility] sumatriptan 100 mg tablet 2022-0 -10 00:00: 00 Yes [id number] 100mg Take 1 tablet by mouth as needed for Migraine. Daily prn [facility] sumatriptan 100 mg tablet 3-0 -10 00:00: 00 Yes [id number] 100mg Take 1 tablet by mouth as needed for Migraine. Daily prn [facility] sumatriptan 100 mg tablet 3-0 - 00:00: 00 Yes [id number] 100mg Take 1 tablet by mouth as needed for Migraine. Daily prn [facility] sumatriptan 100 mg tablet 0 -10 00:00: 00 Yes [id number] 100mg Take 1 tablet by mouth as needed for Migraine. Daily prn [facility] sumatriptan 100 mg tablet 2022-0 - 00:00: 00 Yes [id number] 100mg Take 1 tablet by mouth as needed for Migraine. Daily prn [facility] sumatriptan 100 mg tablet 2022-0 - 00:00: 00 Yes [id number] 100mg Take 1 tablet by mouth as needed for Migraine. Daily prn [facility] sumatriptan 100 mg tablet 0 - 00:00: 00 Yes [id number] 100mg Take 1 tablet by mouth as needed for Migraine. Daily prn [facility] sumatriptan 100 mg tablet 0 02-18 00:00: 00 Yes [id number] 100mg Take 1 tablet by mouth as needed for Migraine. Daily prn [facility] sumatriptan 100 mg tablet 0 02-18 00:00: 00 Yes [id number] 100mg Take 1 tablet by mouth as needed for Migraine. Daily prn [facility] sumatriptan 100 mg tablet 0 02-18 00:00: 00 Yes [id number] 100mg Take 1 tablet by mouth as needed for Migraine. Daily prn [facility] sumatriptan 100 mg tablet 2022-0 02-18 00:00: 00 Yes [id number] 100mg Take 1 tablet by mouth as needed for Migraine. Daily prn [facility] sumatriptan 100 mg tablet 0 02-18 00:00: 00 Yes [id number] 100mg Take 1 tablet by mouth as needed for Migraine. Daily prn [facility] sumatriptan 100 mg tablet 2022-0 02-18 00:00: 00 Yes [id number] 100mg Take 1 tablet by mouth as needed for Migraine. Daily prn [facility] sumatriptan 100 mg tablet 2022-0 - 00:00: 00 Yes [id number] 100mg Take 1 tablet by mouth as needed for Migraine. Daily prn [facility] sumatriptan 100 mg tablet 2022-0 00:00: 00 Yes [id number] 100mg Take 1 tablet by mouth as needed for Migraine. Daily prn [facility] sumatriptan 100 mg tablet 0 02-18 00:00: 00 Yes [id number] 100mg Take 1 tablet by mouth as needed for Migraine. Daily prn [facility] sumatriptan 100 mg tablet 0 - 00:00: 00 Yes [id number] 100mg Take 1 tablet by mouth as needed for Migraine. Daily prn [facility] sumatriptan 100 mg tablet 0 - 00:00: 00 Yes [id number] 100mg Take 1 tablet by mouth as needed for Migraine. Daily prn [facility] sumatriptan 100 mg tablet 0 02-18 00:00: 00 Yes [id number] 100mg Take 1 tablet by mouth as needed for Migraine. Daily prn [facility] sumatriptan 100 mg tablet 0 02-18 00:00: 00 Yes [id number] 100mg Take 1 tablet by mouth as needed for Migraine. Daily prn [facility] sumatriptan 100 mg tablet 0 02-18 00:00: 00 Yes [id number] 100mg Take 1 tablet by mouth as needed for Migraine. Daily prn [facility] sumatriptan 100 mg tablet 0 02-18 00:00: 00 Yes [id number] 100mg Take 1 tablet by mouth as needed for Migraine. Daily prn [facility] sumatriptan 100 mg tablet 2022-0 02-18 00:00: 00 Yes [id number] 100mg Take 1 tablet by mouth as needed for Migraine. Daily prn [facility] sumatriptan 100 mg tablet 2022-0 02-18 00:00: 00 Yes [id number] 100mg Take 1 tablet by mouth as needed for Migraine. Daily prn [facility] sumatriptan 100 mg tablet 2022-0 02-18 00:00: 00 Yes [id number] 100mg Take 1 tablet by mouth as needed for Migraine. Daily prn [facility] sumatriptan 100 mg tablet 2022-0 - 00:00: 00 Yes [id number] 100mg Take 1 tablet by mouth as needed for Migraine. Daily prn [facility] sumatriptan 100 mg tablet 2022-0 -10 00:00: 00 Yes [id number] 100mg Take 1 tablet by mouth as needed for Migraine. Daily prn [facility] sumatriptan 100 mg tablet 2022-0 -10 00:00: 00 Yes [id number] 100mg Take 1 tablet by mouth as needed for Migraine. Daily prn [facility] sumatriptan 100 mg tablet 2022-0 - 00:00: 00 Yes [id number] 100mg Take 1 tablet by mouth as needed for Migraine. Daily prn [facility] sumatriptan 100 mg tablet 2022-0 - 00:00: 00 Yes [id number] 100mg Take 1 tablet by mouth as needed for Migraine. Daily prn [facility] sumatriptan 100 mg tablet 2022-0 - 00:00: 00 Yes [id number] 100mg Take 1 tablet by mouth as needed for Migraine. Daily prn [facility] sumatriptan 100 mg tablet 2022-0 - 00:00: 00 Yes [id number] 100mg Take 1 tablet by mouth as needed for Migraine. Daily prn [facility] sumatriptan 100 mg tablet 2022-0 - 00:00: 00 Yes [id number] 100mg Take 1 tablet by mouth as needed for Migraine. Daily prn [facility] sumatriptan 100 mg tablet 2022-0 - 00:00: 00 Yes [id number] 100mg Take 1 tablet by mouth as needed for Migraine. Daily prn [facility] sumatriptan 100 mg tablet 2022-0 - 00:00: 00 Yes [id number] 100mg Take 1 tablet by mouth as needed for Migraine. Daily prn [facility] sumatriptan 100 mg tablet 2022-0 -10 00:00: 00 Yes [id number] 100mg Take 1 tablet by mouth as needed for Migraine. Daily prn [facility] sumatriptan 100 mg tablet 2022-0 - 00:00: 00 Yes [id number] 100mg Take 1 tablet by mouth as needed for Migraine. Daily prn [facility] sumatriptan 100 mg tablet 3-0 1-10 00:00: 00 Yes [id number] 100mg Take 1 tablet by mouth as needed for Migraine. Daily prn [facility] sumatriptan 100 mg tablet 3-0 1-10 00:00: 00 Yes [id number] 100mg Take 1 tablet by mouth as needed for Migraine. Daily prn [facility] sumatriptan 100 mg tablet 3-0 1-10 00:00: 00 Yes [id number] 100mg Take 1 tablet by mouth as needed for Migraine. Daily prn [facility] sumatriptan 100 mg tablet 3-0 1-10 00:00: 00 Yes [id number] 100mg Take 1 tablet by mouth as needed for Migraine. Daily prn [facility] sumatriptan 100 mg tablet 3-0 1-10 00:00: 00 Yes [id number] 100mg Take 1 tablet by mouth as needed for Migraine. Daily prn [facility] sumatriptan 100 mg tablet 3-0 -10 00:00: 00 Yes [id number] 100mg Take 1 tablet by mouth as needed for Migraine. Daily prn [facility] sumatriptan 100 mg tablet 3-0 -10 00:00: 00 Yes [id number] 100mg Take 1 tablet by mouth as needed for Migraine. Daily prn [facility] sumatriptan 100 mg tablet 3-0 -10 00:00: 00 Yes [id number] 100mg Take 1 tablet by mouth as needed for Migraine. Daily prn [facility] sumatriptan 100 mg tablet 3-0 1-10 00:00: 00 Yes [id number] 100mg Take 1 tablet by mouth as needed for Migraine. Daily prn [facility] sumatriptan 100 mg tablet 3-0 1-10 00:00: 00 Yes [id number] 100mg Take 1 tablet by mouth as needed for Migraine. Daily prn [facility] sumatriptan 100 mg tablet 3-0 1-10 00:00: 00 Yes [id number] 100mg Take 1 tablet by mouth as needed for Migraine. Daily prn [facility] sumatriptan 100 mg tablet 3-0 1-10 00:00: 00 Yes [id number] 100mg Take 1 tablet by mouth as needed for Migraine. Daily prn [facility] sumatriptan 100 mg tablet 3-0 1-10 00:00: 00 Yes [id number] 100mg Take 1 tablet by mouth as needed for Migraine. Daily prn [facility] sumatriptan 100 mg tablet 3-0 -10 00:00: 00 Yes [id number] 100mg Take 1 tablet by mouth as needed for Migraine. Daily prn [facility] sumatriptan 100 mg tablet 3-0 -10 00:00: 00 Yes [id number] 100mg Take 1 tablet by mouth as needed for Migraine. Daily prn [facility] sumatriptan 100 mg tablet 2022-0 -10 00:00: 00 Yes [id number] 100mg Take 1 tablet by mouth as needed for Migraine. Daily prn [facility] sumatriptan 100 mg tablet 2022-0 -10 00:00: 00 Yes [id number] 100mg Take 1 tablet by mouth as needed for Migraine. Daily prn [facility] sumatriptan 100 mg tablet 2022-0 -10 00:00: 00 Yes [id number] 100mg Take 1 tablet by mouth as needed for Migraine. Daily prn [facility] sumatriptan 100 mg tablet 3-0 -10 00:00: 00 Yes [id number] 100mg Take 1 tablet by mouth as needed for Migraine. Daily prn [facility] sumatriptan 100 mg tablet 3-0 -10 00:00: 00 Yes [id number] 100mg Take 1 tablet by mouth as needed for Migraine. Daily prn [facility] sumatriptan 100 mg tablet 3-0 1-10 00:00: 00 Yes [id number] 100mg Take 1 tablet by mouth as needed for Migraine. Daily prn [facility] sumatriptan 100 mg tablet 3-0 -10 00:00: 00 Yes [id number] 100mg Take 1 tablet by mouth as needed for Migraine. Daily prn [facility] sumatriptan 100 mg tablet 02-18 00:00: 00 Yes [id number] 100mg Take 1 tablet by mouth as needed for Migraine. Daily prn [facility] topiramate 25 mg tablet 02-18 00:00: 00 02-25 00:00 :00 No [id number] 25mg Take 1 tablet by mouth in the morning and 1 tablet in the evening. [facility] topiramate 25 mg tablet 02-18 00:00: 00 02-25 00:00 :00 No [id number] 25mg Take 1 tablet by mouth in the morning and 1 tablet in the evening. [facility] liraglutide 0.6 mg/0.1 mL (18 mg/3 mL) injection 02-11 00:00: 00 Yes [id number] Take 0.6mg daily for 2 weeks, then increase to 1.2mg daily if tolerate , can further increase to 1.8mg daily in 2 weeks if tolerate [facility] liraglutide 0.6 mg/0.1 mL (18 mg/3 mL) injection 02-11 00:00: 00 Yes [id number] Take 0.6mg daily for 2 weeks, then increase to 1.2mg daily if tolerate , can further increase to 1.8mg daily in 2 weeks if tolerate Univers [facility] liraglutide 0.6 mg/0.1 mL (18 mg/3 mL) injection 02-11 00:00: 00 Yes [id number] Take 0.6mg daily for 2 weeks, then increase to 1.2mg daily if tolerate , can further increase to 1.8mg daily in 2 weeks if tolerate [facility]/0.1 mL (18 mg/3 mL) injection 02-11 00:00: 00 Yes [id number] Take 0.6mg daily for 2 weeks, then increase to 1.2mg daily if tolerate , can further increase to 1.8mg daily in 2 weeks if tolerate [facility] 0.6 mg/0.1 mL (18 mg/3 mL) injection 02-11 00:00: 00 Yes [id number] Take 0.6mg daily for 2 weeks, then increase to 1.2mg daily if tolerate , can further increase to 1.8mg daily in 2 weeks if tolerate [facility] liraglutide 0.6 mg/0.1 mL (18 mg/3 mL) injection 02-11 00:00: 00 Yes [id number] Take 0.6mg daily for 2 weeks, then increase to 1.2mg daily if tolerate , can further increase to 1.8mg daily in 2 weeks if tolerate [facility] liraglutide 0.6 mg/0.1 mL (18 mg/3 mL) injection 02-11 00:00: 00 Yes [id number] Take 0.6mg daily for 2 weeks, then increase to 1.2mg daily if tolerate , can further increase to 1.8mg daily in 2 weeks if tolerate [facility] 0.6 mg/0.1 mL (18 mg/3 mL) injection 02-11 00:00: 00 Yes [id number] Take 0.6mg daily for 2 weeks, then increase to 1.2mg daily if tolerate , can further increase to 1.8mg daily in 2 weeks if tolerate [facility] liraglutide 0.6 mg/0.1 mL (18 mg/3 mL) injection 02-11 00:00: 00 Yes [id number] Take 0.6mg daily for 2 weeks, then increase to 1.2mg daily if tolerate , can further increase to 1.8mg daily in 2 weeks if tolerate [facility] liraglutide 0.6 mg/0.1 mL (18 mg/3 mL) injection 02-11 00:00: 00 Yes [id number] Take 0.6mg daily for 2 weeks, then increase to 1.2mg daily if tolerate , can further increase to 1.8mg daily in 2 weeks if tolerate [facility] liraglutide 0.6 mg/0.1 mL (18 mg/3 mL) injection 02-11 00:00: 00 Yes [id number] Take 0.6mg daily for 2 weeks, then increase to 1.2mg daily if tolerate , can further increase to 1.8mg daily in 2 weeks if tolerate Univers [facility] liraglutide 0.6 mg/0.1 mL (18 mg/3 mL) injection 02-11 00:00: 00 Yes [id number] Take 0.6mg daily for 2 weeks, then increase to 1.2mg daily if tolerate , can further increase to 1.8mg daily in 2 weeks if tolerate Univers [facility] liraglutide 0.6 mg/0.1 mL (18 mg/3 mL) injection 02-11 00:00: 00 02-22 00:00 :00 No [id number] Take 0.6mg daily for 2 weeks, then increase to 1.2mg daily if tolerate , can further increase to 1.8mg daily in 2 weeks if tolerate [facility] liraglutide 0.6 mg/0.1 mL (18 mg/3 mL) injection 02-11 00:00: 00 02-22 00:00 :00 No [id number] Take 0.6mg daily for 2 weeks, then increase to 1.2mg daily if tolerate , can further increase to 1.8mg daily in 2 weeks if tolerate [facility] ciprofloxac in HCl 500 mg tablet 2021-02 00:00: 00 Yes TAKE 1 TABLET BY MOUTH EVERY 12 HOURS FOR 10 DAYS [facility] metroNIDAZO LE 500 mg tablet 2021-02 00:00: 00 Yes TAKE 1 TABLET BY MOUTH EVERY 12 HOURS FOR 7 DAYS [facility] ciprofloxac in HCl 500 mg tablet 2021-02 00:00: 00 Yes TAKE 1 TABLET BY MOUTH EVERY 12 HOURS FOR 10 DAYS [facility] metroNIDAZO LE 500 mg tablet 2021-02 00:00: 00 Yes TAKE 1 TABLET BY MOUTH EVERY 12 HOURS FOR 7 DAYS [facility] ciprofloxac in HCl 500 mg tablet 2021-02 00:00: 00 Yes TAKE 1 TABLET BY MOUTH EVERY 12 HOURS FOR 10 DAYS [facility] metroNIDAZO LE 500 mg tablet 2021-02 00:00: 00 Yes TAKE 1 TABLET BY MOUTH EVERY 12 HOURS FOR 7 DAYS [facility] ciprofloxac in HCl 500 mg tablet 2021-02 00:00: 00 Yes TAKE 1 TABLET BY MOUTH EVERY 12 HOURS FOR 10 DAYS [facility] metroNIDAZO LE 500 mg tablet 2021-02 00:00: 00 Yes TAKE 1 TABLET BY MOUTH EVERY 12 HOURS FOR 7 DAYS [facility] ciprofloxac in HCl 500 mg tablet 2021-02 00:00: 00 Yes TAKE 1 TABLET BY MOUTH EVERY 12 HOURS FOR 10 DAYS [facility] metroNIDAZO LE 500 mg tablet 2021-02 00:00: 00 Yes TAKE 1 TABLET BY MOUTH EVERY 12 HOURS FOR 7 DAYS [facility] ciprofloxac in HCl 500 mg tablet 2021-02 00:00: 00 Yes TAKE 1 TABLET BY MOUTH EVERY 12 HOURS FOR 10 DAYS [facility] metroNIDAZO LE 500 mg tablet 2021-02 00:00: 00 Yes TAKE 1 TABLET BY MOUTH EVERY 12 HOURS FOR 7 DAYS [facility] ciprofloxac in HCl 500 mg tablet 2021-02 00:00: 00 Yes TAKE 1 TABLET BY MOUTH EVERY 12 HOURS FOR 10 DAYS [facility] metroNIDAZO LE 500 mg tablet 2021-02 00:00: 00 Yes TAKE 1 TABLET BY MOUTH EVERY 12 HOURS FOR 7 DAYS [facility] ciprofloxac in HCl 500 mg tablet 2021-02 00:00: 00 Yes TAKE 1 TABLET BY MOUTH EVERY 12 HOURS FOR 10 DAYS [facility] metroNIDAZO LE 500 mg tablet 2021-02 00:00: 00 Yes TAKE 1 TABLET BY MOUTH EVERY 12 HOURS FOR 7 DAYS [facility] ciprofloxac in HCl 500 mg tablet 2021-02 00:00: 00 Yes TAKE 1 TABLET BY MOUTH EVERY 12 HOURS FOR 10 DAYS [facility] metroNIDAZO LE 500 mg tablet 2021-02 00:00: 00 Yes TAKE 1 TABLET BY MOUTH EVERY 12 HOURS FOR 7 DAYS [facility] ciprofloxac in HCl 500 mg tablet 2021-02 00:00: 00 Yes TAKE 1 TABLET BY MOUTH EVERY 12 HOURS FOR 10 DAYS [facility] metroNIDAZO LE 500 mg tablet 2021-02 00:00: 00 Yes TAKE 1 TABLET BY MOUTH EVERY 12 HOURS FOR 7 DAYS [facility] ciprofloxac in HCl 500 mg tablet 2021-02 00:00: 00 Yes TAKE 1 TABLET BY MOUTH EVERY 12 HOURS FOR 10 DAYS [facility] metroNIDAZO LE 500 mg tablet 2021-02 00:00: 00 Yes TAKE 1 TABLET BY MOUTH EVERY 12 HOURS FOR 7 DAYS [facility] ciprofloxac in HCl 500 mg tablet 2021-02 00:00: 00 Yes TAKE 1 TABLET BY MOUTH EVERY [facility] 2021-02 00:00: 00 Yes TAKE 1 TABLET BY MOUTH EVERY 12 HOURS FOR 7 DAYS [facility] ciprofloxac in HCl 500 mg tablet 2021-02 00:00: 00 Yes TAKE 1 TABLET BY MOUTH EVERY 12 HOURS FOR 10 DAYS [facility] mg tablet 2021-02 00:00: 00 Yes TAKE 1 TABLET BY MOUTH EVERY 12 HOURS FOR 7 DAYS [facility] ciprofloxac in HCl 500 mg tablet 2021-02 00:00: 00 Yes TAKE 1 TABLET BY MOUTH EVERY 12 HOURS FOR 10 DAYS [facility] 500 mg tablet 2021-02 00:00: 00 Yes TAKE 1 TABLET BY MOUTH EVERY 12 HOURS FOR 7 DAYS [facility] ciprofloxac in HCl 500 mg tablet 2021-02 00:00: 00 Yes TAKE 1 TABLET BY MOUTH EVERY 12 HOURS FOR 10 DAYS [facility] metroNIDAZO LE 500 mg tablet 2021-02 00:00: 00 Yes TAKE 1 TABLET BY MOUTH EVERY 12 HOURS FOR 7 DAYS [facility] ciprofloxac [facility] HCl 500 mg tablet 2021-02 00:00: 00 - 00:00 :00 No TAKE 1 TABLET BY MOUTH EVERY 12 HOURS FOR 10 DAYS [facility] metroNIDAZO LE 500 mg tablet 2021-02 00:00: 00 05-23 00:00 :00 No TAKE 1 TABLET BY MOUTH EVERY 12 HOURS FOR 7 DAYS [facility] ciprofloxac in HCl 500 mg tablet 2021-02 00:00: 00 05-23 00:00 :00 No TAKE 1 TABLET BY MOUTH EVERY 12 HOURS FOR 10 DAYS [facility] metroNIDAZO LE 500 mg tablet 2021-02 00:00: 00 05-23 00:00 :00 No TAKE 1 TABLET BY MOUTH EVERY 12 HOURS FOR 7 DAYS [facility] insulin glargine 100 unit/mL injection 2021-02 11:47: 58 Yes 55U inject 55 Units under the skin in the morning. [facility] insulin glargine 100 unit/mL injection 2021-02 11:47: 58 Yes 55U inject 55 Units under the skin in the morning. [facility] insulin glargine 100 unit/mL injection 2021-02 11:47: 58 Yes 55U inject 55 Units under the skin in the morning. [facility] insulin glargine 100 unit/mL injection 2021-02 11:47: 58 Yes 55U inject 55 Units under the skin in the morning. [facility] insulin glargine 100 unit/mL injection 2021-02 11:47: 58 Yes 55U inject 55 Units under the skin in the morning. [facility] insulin glargine 100 unit/mL injection 2021-02 11:47: 58 Yes 55U inject 55 Units under the skin in the morning. [facility] insulin glargine 100 unit/mL injection 2021-02 11:47: 58 Yes 55U inject 55 Units under the skin in the morning. [facility] insulin glargine 100 unit/mL injection 2021-02 11:47: 58 Yes 55U inject 55 Units under the skin in the morning. [facility] insulin glargine 100 unit/mL injection 2021-02 11:47: 58 Yes 55U inject 55 Units under the skin in the morning. [facility] insulin glargine 100 unit/mL injection 2021-02 11:47: 58 Yes 55U inject 55 Units under the skin in the morning. [facility] insulin glargine 100 unit/mL injection 2021-02 11:47: 58 Yes 55U inject 55 Units under the skin in the morning. [facility] insulin glargine 100 unit/mL injection 2021-02 11:47: 58 Yes 55U inject 55 Units under the skin in the morning. [facility] insulin glargine 100 unit/mL injection 2021-02 11:47: 58 Yes 55U inject 55 Units under the skin in the morning. [facility] insulin glargine 100 unit/mL injection 2021-02 11:47: 58 Yes 55U inject 55 Units under the skin in the morning. [facility] insulin glargine 100 unit/mL injection 2021-02 11:47: 58 Yes 55U inject 55 Units under the skin in the morning. [facility] insulin glargine 100 unit/mL injection 2021-02 11:47: 58 Yes 55U inject 55 Units under the skin in the morning. [facility] insulin glargine 100 unit/mL injection 2021-02 11:47: 58 Yes 55U inject 55 Units under the skin in the morning. [facility] insulin glargine 100 unit/mL injection 2021-02 11:47: 58 Yes 55U inject 55 Units under the skin in the morning. [facility] insulin glargine 100 unit/mL injection 2021-02 11:47: 58 Yes 55U inject 55 Units under the skin in the morning. [facility] insulin glargine 100 unit/mL injection 2021-02 11:47: 58 Yes 55U inject 55 Units under the skin in the morning. [facility] insulin glargine 100 unit/mL injection 2021-02 11:47: 58 Yes 55U inject 55 Units under the skin in the morning. [facility] insulin glargine 100 unit/mL injection 2021-02 11:47: 58 Yes 55U inject 55 Units under the skin in the morning. [facility] insulin glargine 100 unit/mL injection 2021-02 11:47: 58 Yes 55U inject 55 Units under the skin in the morning. [facility] insulin glargine 100 unit/mL injection 2021-02 11:47: 58 Yes 55U inject 55 Units under the skin in the morning. [facility] insulin glargine 100 unit/mL injection 2021-02 11:47: 58 Yes 55U inject 55 Units under the skin in the morning. [facility] insulin glargine 100 unit/mL injection 2021-02 11:47: 58 Yes 55U inject 55 Units under the skin in the morning. [facility] insulin glargine 100 unit/mL injection 2021-02 11:47: 58 Yes 55U inject 55 Units under the skin in the morning. [facility] insulin glargine 100 unit/mL injection 2021-02 11:47: 58 Yes 55U inject 55 Units under the skin in the morning. [facility] insulin glargine 100 unit/mL injection 2021-02 11:47: 58 Yes 55U inject 55 Units under the skin in the morning. [facility] insulin glargine 100 unit/mL injection 2021-02 11:47: 58 Yes 55U inject 55 Units under the skin in the morning. [facility] insulin glargine 100 unit/mL injection 2021-02 11:47: 58 Yes 55U inject 55 Units under the skin in the morning. [facility] insulin glargine 100 unit/mL injection 2021-02 11:47: 58 Yes 55U inject 55 Units under the skin in the morning. [facility] insulin glargine 100 unit/mL injection 2021-02 11:47: 58 Yes 55U inject 55 Units under the skin in the morning. [facility] insulin glargine 100 unit/mL injection 2021-02 11:47: 58 Yes 55U inject 55 Units under the skin in the morning. [facility] insulin glargine 100 unit/mL injection 2021-02 11:47: 58 Yes 55U inject 55 Units under the skin in the morning. [facility] insulin glargine 100 unit/mL injection 2021-02 11:47: 58 Yes 55U inject 55 Units under the skin in the morning. [facility] insulin glargine 100 unit/mL injection 2021-02 11:47: 58 Yes 55U inject 55 Units under the skin in the morning. [facility] insulin glargine 100 unit/mL injection 2021-02 11:47: 58 Yes 55U inject 55 Units under the skin in the morning. [facility] insulin glargine 100 unit/mL injection 2021-02 11:47: 58 Yes 55U inject 55 Units under the skin in the morning. [facility] insulin glargine 100 unit/mL injection 2021-02 11:47: 58 Yes 55U inject 55 Units under the skin in the morning. [facility] insulin glargine 100 unit/mL injection 2021-02 11:47: 58 Yes 55U inject 55 Units under the skin in the morning. [facility] insulin glargine 100 unit/mL injection 2021-02 11:47: 58 Yes 55U inject 55 Units under the skin in the morning. [facility] insulin glargine 100 unit/mL injection 2021-02 11:47: 58 Yes 55U inject 55 Units under the skin in the morning. [facility] insulin glargine 100 unit/mL injection 2021-02 11:47: 58 Yes 55U inject 55 Units under the skin in the morning. [facility] insulin glargine 100 unit/mL injection 2021-02 11:47: 58 Yes 55U inject 55 Units under the skin in the morning. [facility] insulin glargine 100 unit/mL injection 2021-02 11:47: 58 Yes 55U inject 55 Units under the skin in the morning. [facility] insulin glargine 100 unit/mL injection 2021-02 11:47: 58 Yes 55U inject 55 Units under the skin in the morning. [facility] insulin glargine 100 unit/mL injection 2021-02 11:47: 58 Yes 55U inject 55 Units under the skin in the morning. [facility] insulin glargine 100 unit/mL injection 2021-02 11:47: 58 Yes 55U inject 55 Units under the skin in the morning. [facility] insulin glargine 100 unit/mL injection 2021-02 11:47: 58 Yes 55U inject 55 Units under the skin in the morning. [facility] insulin glargine 100 unit/mL injection 2021-02 11:47: 58 Yes 55U inject 55 Units under the skin in the morning. [facility] insulin glargine 100 unit/mL injection 2021-02 11:47: 58 Yes 55U inject 55 Units under the skin in the morning. [facility] insulin aspart RAPID (NOVOLOG U-100 INSULIN ASPART) 100 unit/mL injection 2021-02 00:00: 00 Yes [id number] 20U inject 20 Units under the skin in the morning and 20 Units at noon and 20 Units in the evening. inject before meals. [facility] insulin syr/ndl U100 half melvin 0.5 mL 31 gauge x 5/16" Syrg 2021-02 00:00: 00 Yes [id number] 1{each} 1 Each 4 (four) times daily. Use with insulin 4 times daily. Dx E11.8 [facility] flash glucose sensor (FREESTYLE DASH 2 SENSOR) Kit 2021-02 00:00: 00 Yes [id number] 1{each} 1 Each every 14 (fourteen) days. [facility] insulin aspart RAPID (NOVOLOG U-100 INSULIN ASPART) 100 unit/mL injection 2021-02 00:00: 00 Yes [id number] 20U inject 20 Units under the skin in the morning and 20 Units at noon and 20 Units in the evening. inject before meals. [facility] insulin syr/ndl U100 half melvin 0.5 mL 31 gauge x 5/16" Syrg 2021-02 00:00: 00 Yes [id number] 1{each} 1 Each 4 (four) times daily. Use with insulin 4 times daily. Dx E11.8 [facility] flash glucose sensor (FREESTYLE DASH 2 SENSOR) Kit 2021-02 00:00: 00 Yes [id number] 1{each} 1 Each every 14 (fourteen) days. [facility] dulaglutide (TRULICITY) 0.75 mg/0.5 mL PnIj 2021-02 00:00: 00 Yes [id number] .75mg inject 1 Pen under the skin weekly. [facility] insulin aspart RAPID (NOVOLOG U-100 INSULIN ASPART) 100 unit/mL injection 2021-02 00:00: 00 Yes [id number] 20U inject 20 Units under the skin in the morning and 20 Units at noon and 20 Units in the evening. inject before meals. [facility] insulin syr/ndl U100 half melvin 0.5 mL 31 gauge x 5/16" Syrg 2021-02 00:00: 00 Yes [id number] 1{each} 1 Each 4 (four) times daily. Use with insulin 4 times daily. Dx E11.8 [facility] flash glucose sensor (FREESTYLE DASH 2 SENSOR) Kit 2021-02 00:00: 00 Yes [id number] 1{each} 1 Each every 14 (fourteen) days. [facility] insulin aspart RAPID (NOVOLOG U-100 INSULIN ASPART) 100 unit/mL injection 2021-02 00:00: 00 Yes [id number] 20U inject 20 Units under the skin in the morning and 20 Units at noon and 20 Units in the evening. inject before meals. [facility] insulin syr/ndl U100 half melvin 0.5 mL 31 gauge x 5/16" Syrg 2021-02 00:00: 00 Yes [id number] 1{each} 1 Each 4 (four) times daily. Use with insulin 4 times daily. Dx E11.8 [facility] flash glucose sensor (FREESTYLE DASH 2 SENSOR) Kit 2021-02 00:00: 00 Yes [id number] 1{each} 1 Each every 14 (fourteen) days. [facility] insulin aspart RAPID (NOVOLOG U-100 INSULIN ASPART) 100 unit/mL injection 2021-02 00:00: 00 Yes [id number] 20U inject 20 Units under the skin in the morning and 20 Units at noon and 20 Units in the evening. inject before meals. [facility] insulin syr/ndl U100 half melvin 0.5 mL 31 gauge x 5/16" [facility] 2021-02 00:00: 00 Yes [id number] 1{each} 1 Each 4 (four) times daily. Use with insulin 4 times daily. Dx E11.8 [facility] flash glucose sensor (FREESTYLE DASH 2 SENSOR) Kit 2021-02 00:00: 00 Yes [id number] 1{each} 1 Each every 14 (fourteen) days. [facility] insulin aspart RAPID (NOVOLOG U-100 INSULIN ASPART) 100 unit/mL injection 2021-02 00:00: 00 Yes [id number] 20U inject 20 Units under the skin in the morning and 20 Units at noon and 20 Units in the evening. inject before meals. [facility] insulin syr/ndl U100 half melvin 0.5 mL 31 gauge x 5/16" Syr 2021-02 00:00: 00 Yes [id number] 1{each} 1 Each 4 (four) times daily. Use with insulin 4 times daily. Dx E11.8 [facility] flash glucose sensor (FREESTYLE DASH 2 SENSOR) Kit 2021-02 00:00: 00 Yes [id number] 1{each} 1 Each every 14 (fourteen) days. [facility] dulaglutide (TRULICITY) 0.75 mg/0.5 mL PnIj 2021-02 00:00: 00 Yes [id number] .75mg inject 1 Pen under the skin weekly. [facility] insulin aspart RAPID (NOVOLOG U-100 INSULIN ASPART) 100 unit/mL injection 2021-02 00:00: 00 Yes [id number] 20U inject 20 Units under the skin in the morning and 20 Units at noon and 20 Units in the evening. inject before meals. [facility] insulin syr/ndl U100 half melvin 0.5 mL 31 gauge x 5/16" Syrg 2021-02 00:00: 00 Yes [id number] 1{each} 1 Each 4 (four) times daily. Use with insulin 4 times daily. Dx E11.8 [facility] flash glucose sensor (FREESTYLE DASH 2 SENSOR) Kit 2021-02 00:00: 00 Yes [id number] 1{each} 1 Each every 14 (fourteen) days. [facility] dulaglutide (TRULICITY) 0.75 mg/0.5 mL PnIj 2021-02 00:00: 00 Yes [id number] .75mg inject 1 Pen under the skin weekly. [facility] insulin aspart RAPID (NOVOLOG U-100 INSULIN ASPART) 100 unit/mL injection 2021-02 00:00: 00 Yes [id number] 20U inject 20 Units under the skin in the morning and 20 Units at noon and 20 Units in the evening. inject before meals. [facility] insulin syr/ndl U100 half melvin 0.5 mL 31 gauge x 5/16" Syrg 2021-02- 00:00: 00 Yes [id number] 1{each} 1 Each 4 (four) times daily. Use with insulin 4 times daily. Dx E11.8 [facility] flash glucose sensor (FREESTYLE DASH 2 SENSOR) Kit 2021-02 00:00: 00 Yes [id number] 1{each} 1 Each every 14 (fourteen) days. [facility] dulaglutide (TRULICITY) 0.75 mg/0.5 mL PnIj 2021-02 00:00: 00 Yes [id number] .75mg inject 1 Pen under the skin weekly. [facility] insulin aspart RAPID (NOVOLOG U-100 INSULIN ASPART) 100 unit/mL injection 2021-02 00:00: 00 Yes [id number] 20U inject 20 Units under the skin in the morning and 20 Units at noon and 20 Units in the evening. inject before meals. [facility] insulin syr/ndl U100 half melvin 0.5 mL 31 gauge x 5/16" Syrg 2021-02 00:00: 00 Yes [id number] 1{each} 1 Each 4 (four) times daily. Use with insulin 4 times daily. Dx E11.8 [facility] flash glucose sensor (FREESTYLE DASH 2 SENSOR) Kit 2021-02 00:00: 00 Yes [id number] 1{each} 1 Each every 14 (fourteen) days. [facility] dulaglutide (TRULICITY) 0.75 mg/0.5 mL PnIj 2021-02 00:00: 00 Yes [id number] .75mg inject 1 Pen under the skin weekly. [facility] insulin aspart RAPID (NOVOLOG U-100 INSULIN ASPART) 100 unit/mL injection 2021-02 00:00: 00 Yes [id number] 20U inject 20 Units under the skin in the morning and 20 Units at noon and 20 Units in the evening. inject before meals. [facility] insulin syr/ndl U100 half melvin 0.5 mL 31 gauge x 5/16" Syrg 2021-02 00:00: 00 Yes [id number] 1{each} 1 Each 4 (four) times daily. Use with insulin 4 times daily. Dx E11.8 [facility] flash glucose sensor (FREESTYLE DASH 2 SENSOR) Kit 2021-02 00:00: 00 Yes [id number] 1{each} 1 Each every 14 (fourteen) days. [facility] dulaglutide (TRULICITY) 0.75 mg/0.5 mL PnIj 2021-02 00:00: 00 Yes [id number] .75mg inject 1 Pen under the skin weekly. [facility] insulin aspart RAPID (NOVOLOG U-100 INSULIN ASPART) 100 unit/mL injection 2021-02 2- 00:00: 00 Yes [id number] 20U inject 20 Units under the skin in the morning and 20 Units at noon and 20 Units in the evening. inject before meals. [facility] insulin syr/ndl U100 half melvin 0.5 mL 31 gauge x 5/16" Syrg 2021-02 2-20 00:00: 00 Yes [id number] 1{each} 1 Each 4 (four) times daily. Use with insulin 4 times daily. Dx E11.8 [facility] flash glucose sensor (FREESTYLE DASH 2 SENSOR) Kit 2021-02 00:00: 00 Yes [id number] 1{each} 1 Each every 14 (fourteen) days. [facility] insulin aspart RAPID (NOVOLOG U-100 INSULIN ASPART) 100 unit/mL injection 2021-02- 00:00: 00 Yes [id number] 20U inject 20 Units under the skin in the morning and 20 Units at noon and 20 Units in the evening. inject before meals. [facility] insulin syr/ndl U100 half melvin 0.5 mL 31 gauge x 5/16" [facility] 2021-02 2-20 00:00: 00 Yes [id number] 1{each} 1 Each 4 (four) times daily. Use with insulin 4 times daily. Dx E11.8 [facility] flash glucose sensor (FREESTYLE DASH 2 SENSOR) Kit 2021-02 2- 00:00: 00 Yes [id number] 1{each} 1 Each every 14 (fourteen) days. [facility] insulin aspart RAPID (NOVOLOG U-100 INSULIN ASPART) 100 unit/mL injection 2021-02 2-20 00:00: 00 Yes [id number] 20U inject 20 Units under the skin in the morning and 20 Units at noon and 20 Units in the evening. inject before meals. [facility] insulin syr/ndl U100 half melvin 0.5 mL 31 gauge x 5/16" Syrg 2021-02 2-20 00:00: 00 Yes [id number] 1{each} 1 Each 4 (four) times daily. Use with insulin 4 times daily. Dx E11.8 [facility] flash glucose sensor (FREESTYLE DASH 2 SENSOR) Kit 2021-02 2 00:00: 00 Yes [id number] 1{each} 1 Each every 14 (fourteen) days. [facility] insulin aspart RAPID (NOVOLOG U-100 INSULIN ASPART) 100 unit/mL injection 2021-02 2- 00:00: 00 Yes [id number] 20U inject 20 Units under the skin in the morning and 20 Units at noon and 20 Units in the evening. inject before meals. [facility] insulin syr/ndl U100 half melvin 0.5 mL 31 gauge x 5/16" Syrg 2021-02 00:00: 00 Yes [id number] 1{each} 1 Each 4 (four) times daily. Use with insulin 4 times daily. Dx E11.8 [facility] flash glucose sensor (FREESTYLE DASH 2 SENSOR) Kit 2021-02 00:00: 00 Yes [id number] 1{each} 1 Each every 14 (fourteen) days. [facility] insulin aspart RAPID (NOVOLOG U-100 INSULIN ASPART) 100 unit/mL injection 2021-02 00:00: 00 Yes [id number] 20U inject 20 Units under the skin in the morning and 20 Units at noon and 20 Units in the evening. inject before meals. [facility] insulin syr/ndl U100 half melvin 0.5 mL 31 gauge x 5/16" Syr 2021-02 2- 00:00: 00 Yes [id number] 1{each} 1 Each 4 (four) times daily. Use with insulin 4 times daily. Dx E11.8 [facility] flash glucose sensor (FREESTYLE DASH 2 SENSOR) Kit 2021-02 00:00: 00 Yes [id number] 1{each} 1 Each every 14 (fourteen) days. [facility] insulin aspart RAPID (NOVOLOG U-100 INSULIN ASPART) 100 unit/mL injection 2021-02 2- 00:00: 00 Yes [id number] 20U inject 20 Units under the skin in the morning and 20 Units at noon and 20 Units in the evening. inject before meals. [facility] insulin syr/ndl U100 half melvin 0.5 mL 31 gauge x 5/16" Syrg 2021-02 2- 00:00: 00 Yes [id number] 1{each} 1 Each 4 (four) times daily. Use with insulin 4 times daily. Dx E11.8 [facility] flash glucose sensor (FREESTYLE DASH 2 SENSOR) Kit 2021-02 2 00:00: 00 Yes [id number] 1{each} 1 Each every 14 (fourteen) days. [facility] insulin aspart RAPID (NOVOLOG U-100 INSULIN ASPART) 100 unit/mL injection 2021-02 00:00: 00 Yes [id number] 20U inject 20 Units under the skin in the morning and 20 Units at noon and 20 Units in the evening. inject before meals. [facility] insulin syr/ndl U100 half melvin 0.5 mL 31 gauge x 5/16" [facility] 2021-02 2 00:00: 00 Yes [id number] 1{each} 1 Each 4 (four) times daily. Use with insulin 4 times daily. Dx E11.8 [facility] flash glucose sensor (FREESTYLE DASH 2 SENSOR) Kit 2021-02 00:00: 00 Yes [id number] 1{each} 1 Each every 14 (fourteen) days. [facility] insulin aspart RAPID (NOVOLOG U-100 INSULIN ASPART) 100 unit/mL injection 2021-02 00:00: 00 Yes [id number] 20U inject 20 Units under the skin in the morning and 20 Units at noon and 20 Units in the evening. inject before meals. [facility] insulin syr/ndl U100 half melvin 0.5 mL 31 gauge x 5/16" Syr 2021-02 2- 00:00: 00 Yes [id number] 1{each} 1 Each 4 (four) times daily. Use with insulin 4 times daily. Dx E11.8 [facility] flash glucose sensor (FREESTYLE DASH 2 SENSOR) Kit 2021-02 00:00: 00 Yes [id number] 1{each} 1 Each every 14 (fourteen) days. [facility] insulin aspart RAPID (NOVOLOG U-100 INSULIN ASPART) 100 unit/mL injection 2021-02 2-20 00:00: 00 Yes [id number] 20U inject 20 Units under the skin in the morning and 20 Units at noon and 20 Units in the evening. inject before meals. [facility] insulin syr/ndl U100 half melvin 0.5 mL 31 gauge x 5/16" Syrg 2021-02 2-20 00:00: 00 Yes [id number] 1{each} 1 Each 4 (four) times daily. Use with insulin 4 times daily. Dx E11.8 [facility] flash glucose sensor (FREESTYLE DASH 2 SENSOR) Kit 2021-02 2- 00:00: 00 Yes [id number] 1{each} 1 Each every 14 (fourteen) days. [facility] insulin aspart RAPID (NOVOLOG U-100 INSULIN ASPART) 100 unit/mL injection 2021-02 2 00:00: 00 Yes [id number] 20U inject 20 Units under the skin in the morning and 20 Units at noon and 20 Units in the evening. inject before meals. [facility] insulin syr/ndl U100 half melvin 0.5 mL 31 gauge x 5/16" Syr 2021-02 2- 00:00: 00 Yes [id number] 1{each} 1 Each 4 (four) times daily. Use with insulin 4 times daily. Dx E11.8 [facility] flash glucose sensor (FREESTYLE DASH 2 SENSOR) Kit 2021-02 2- 00:00: 00 Yes [id number] 1{each} 1 Each every 14 (fourteen) days. [facility] insulin aspart RAPID (NOVOLOG U-100 INSULIN ASPART) 100 unit/mL injection 2021-02 2-20 00:00: 00 Yes [id number] 20U inject 20 Units under the skin in the morning and 20 Units at noon and 20 Units in the evening. inject before meals. [facility] insulin syr/ndl U100 half melvin 0.5 mL 31 gauge x 5/16" Syrg 2021-02 2-20 00:00: 00 Yes [id number] 1{each} 1 Each 4 (four) times daily. Use with insulin 4 times daily. Dx E11.8 [facility] flash glucose sensor (FREESTYLE DASH 2 SENSOR) Kit 2021-02 2 00:00: 00 Yes [id number] 1{each} 1 Each every 14 (fourteen) days. [facility] insulin aspart RAPID (NOVOLOG U-100 INSULIN ASPART) 100 unit/mL injection 2021-02 2- 00:00: 00 Yes [id number] 20U inject 20 Units under the skin in the morning and 20 Units at noon and 20 Units in the evening. inject before meals. [facility] insulin syr/ndl U100 half melvin 0.5 mL 31 gauge x 5/16" Syrg 2021-02 2- 00:00: 00 Yes [id number] 1{each} 1 Each 4 (four) times daily. Use with insulin 4 times daily. Dx E11.8 [facility] flash glucose sensor (FREESTYLE DASH 2 SENSOR) Kit 2021-02 00:00: 00 Yes [id number] 1{each} 1 Each every 14 (fourteen) days. [facility] insulin aspart RAPID (NOVOLOG U-100 INSULIN ASPART) 100 unit/mL injection 2021-02 00:00: 00 Yes [id number] 20U inject 20 Units under the skin in the morning and 20 Units at noon and 20 Units in the evening. inject before meals. [facility] insulin syr/ndl U100 half melvin 0.5 mL 31 gauge x 5/16" Syrg 2021-02- 00:00: 00 Yes [id number] 1{each} 1 Each 4 (four) times daily. Use with insulin 4 times daily. Dx E11.8 [facility] flash glucose sensor (FREESTYLE DASH 2 SENSOR) Kit 2021-02 00:00: 00 Yes [id number] 1{each} 1 Each every 14 (fourteen) days. [facility] insulin aspart RAPID (NOVOLOG U-100 INSULIN ASPART) 100 unit/mL injection 2021-02 00:00: 00 Yes [id number] 20U inject 20 Units under the skin in the morning and 20 Units at noon and 20 Units in the evening. inject before meals. [facility] insulin syr/ndl U100 half melvin 0.5 mL 31 gauge x 5/16" Syrg 2021-02 2- 00:00: 00 Yes [id number] 1{each} 1 Each 4 (four) times daily. Use with insulin 4 times daily. Dx E11.8 [facility] flash glucose sensor (FREESTYLE DASH 2 SENSOR) Kit 2021-02 2 00:00: 00 Yes [id number] 1{each} 1 Each every 14 (fourteen) days. [facility] insulin aspart RAPID (NOVOLOG U-100 INSULIN ASPART) 100 unit/mL injection 2021-02 00:00: 00 Yes [id number] 20U inject 20 Units under the skin in the morning and 20 Units at noon and 20 Units in the evening. inject before meals. [facility] insulin syr/ndl U100 half melvin 0.5 mL 31 gauge x 5/16" Syr 2021-02 00:00: 00 Yes [id number] 1{each} 1 Each 4 (four) times daily. Use with insulin 4 times daily. Dx E11.8 [facility] flash glucose sensor (FREESTYLE DASH 2 SENSOR) Kit 2021-02 00:00: 00 Yes [id number] 1{each} 1 Each every 14 (fourteen) days. [facility] insulin aspart RAPID (NOVOLOG U-100 INSULIN ASPART) 100 unit/mL injection 2021-02 00:00: 00 Yes [id number] 20U inject 20 Units under the skin in the morning and 20 Units at noon and 20 Units in the evening. inject before meals. [facility] insulin syr/ndl U100 half melvin 0.5 mL 31 gauge x 5/16" Syr 2021-02 2 00:00: 00 Yes [id number] 1{each} 1 Each 4 (four) times daily. Use with insulin 4 times daily. Dx E11.8 [facility] flash glucose sensor (FREESTYLE DASH 2 SENSOR) Kit 2021-02 00:00: 00 Yes [id number] 1{each} 1 Each every 14 (fourteen) days. [facility] insulin aspart RAPID (NOVOLOG U-100 INSULIN ASPART) 100 unit/mL injection 2021-02 2-20 00:00: 00 Yes [id number] 20U inject 20 Units under the skin in the morning and 20 Units at noon and 20 Units in the evening. inject before meals. [facility] insulin syr/ndl U100 half melvin 0.5 mL 31 gauge x 5/16" Syrg 2021-02 2-20 00:00: 00 Yes [id number] 1{each} 1 Each 4 (four) times daily. Use with insulin 4 times daily. Dx E11.8 [facility] flash glucose sensor (FREESTYLE DASH 2 SENSOR) Kit 2021-02 2- 00:00: 00 Yes [id number] 1{each} 1 Each every 14 (fourteen) days. [facility] insulin aspart RAPID (NOVOLOG U-100 INSULIN ASPART) 100 unit/mL injection 2021-02- 00:00: 00 Yes [id number] 20U inject 20 Units under the skin in the morning and 20 Units at noon and 20 Units in the evening. inject before meals. [facility] insulin syr/ndl U100 half melvin 0.5 mL 31 gauge x 5/16" Syr 2021-02 2-20 00:00: 00 Yes [id number] 1{each} 1 Each 4 (four) times daily. Use with insulin 4 times daily. Dx E11.8 [facility] flash glucose sensor (FREESTYLE DASH 2 SENSOR) Kit 2021-02 2 00:00: 00 Yes [id number] 1{each} 1 Each every 14 (fourteen) days. [facility] insulin aspart RAPID (NOVOLOG U-100 INSULIN ASPART) 100 unit/mL injection 2021-02 2-20 00:00: 00 Yes [id number] 20U inject 20 Units under the skin in the morning and 20 Units at noon and 20 Units in the evening. inject before meals. [facility] insulin syr/ndl U100 half melvin 0.5 mL 31 gauge x 5/16" Syrg 2021-02 2-20 00:00: 00 Yes [id number] 1{each} 1 Each 4 (four) times daily. Use with insulin 4 times daily. Dx E11.8 [facility] flash glucose sensor (FREESTYLE DASH 2 SENSOR) Kit 2021-02 2- 00:00: 00 Yes [id number] 1{each} 1 Each every 14 (fourteen) days. [facility] insulin aspart RAPID (NOVOLOG U-100 INSULIN ASPART) 100 unit/mL injection 2021-02 00:00: 00 Yes [id number] 20U inject 20 Units under the skin in the morning and 20 Units at noon and 20 Units in the evening. inject before meals. [facility] insulin syr/ndl U100 half melvin 0.5 mL 31 gauge x 5/16" Syrg 2021-02 2- 00:00: 00 Yes [id number] 1{each} 1 Each 4 (four) times daily. Use with insulin 4 times daily. Dx E11.8 [facility] flash glucose sensor (FREESTYLE DASH 2 SENSOR) Kit 2021-02 00:00: 00 Yes [id number] 1{each} 1 Each every 14 (fourteen) days. [facility] insulin aspart RAPID (NOVOLOG U-100 INSULIN ASPART) 100 unit/mL injection 2021-02 00:00: 00 Yes [id number] 20U inject 20 Units under the skin in the morning and 20 Units at noon and 20 Units in the evening. inject before meals. [facility] insulin syr/ndl U100 half melvin 0.5 mL 31 gauge x 5/16" Syrg 2021-02 2- 00:00: 00 Yes [id number] 1{each} 1 Each 4 (four) times daily. Use with insulin 4 times daily. Dx E11.8 [facility] flash glucose sensor (FREESTYLE DASH 2 SENSOR) Kit 2021-02 00:00: 00 Yes [id number] 1{each} 1 Each every 14 (fourteen) days. [facility] insulin aspart RAPID (NOVOLOG U-100 INSULIN ASPART) 100 unit/mL injection 2021-02 2- 00:00: 00 Yes [id number] 20U inject 20 Units under the skin in the morning and 20 Units at noon and 20 Units in the evening. inject before meals. [facility] insulin syr/ndl U100 half melvin 0.5 mL 31 gauge x 5/16" Syrg 2021-02 00:00: 00 Yes [id number] 1{each} 1 Each 4 (four) times daily. Use with insulin 4 times daily. Dx E11.8 [facility] flash glucose sensor (FREESTYLE DASH 2 SENSOR) Kit 2021-02 00:00: 00 Yes [id number] 1{each} 1 Each every 14 (fourteen) days. [facility] insulin aspart RAPID (NOVOLOG U-100 INSULIN ASPART) 100 unit/mL injection 2021-02 00:00: 00 Yes [id number] 20U inject 20 Units under the skin in the morning and 20 Units at noon and 20 Units in the evening. inject before meals. [facility] insulin syr/ndl U100 half melvin 0.5 mL 31 gauge x 5/16" Syrg 2021-02 00:00: 00 Yes [id number] 1{each} 1 Each 4 (four) times daily. Use with insulin 4 times daily. Dx E11.8 [facility] flash glucose sensor (FREESTYLE DASH 2 SENSOR) Kit 2021-02 00:00: 00 Yes [id number] 1{each} 1 Each every 14 (fourteen) days. [facility] insulin aspart RAPID (NOVOLOG U-100 INSULIN ASPART) 100 unit/mL injection 2021-02 00:00: 00 Yes [id number] 20U inject 20 Units under the skin in the morning and 20 Units at noon and 20 Units in the evening. inject before meals. [facility] insulin syr/ndl U100 half melvin 0.5 mL 31 gauge x 5/16" Syrg 2021-02 00:00: 00 Yes [id number] 1{each} 1 Each 4 (four) times daily. Use with insulin 4 times daily. Dx E11.8 [facility] flash glucose sensor (FREESTYLE DASH 2 SENSOR) Kit 2021-02 00:00: 00 Yes [id number] 1{each} 1 Each every 14 (fourteen) days. [facility] insulin aspart RAPID (NOVOLOG U-100 INSULIN ASPART) 100 unit/mL injection 2021-02 00:00: 00 Yes [id number] 20U inject 20 Units under the skin in the morning and 20 Units at noon and 20 Units in the evening. inject before meals. [facility] insulin syr/ndl U100 half melvin 0.5 mL 31 gauge x 5/16" Syrg 2021-02 2- 00:00: 00 Yes [id number] 1{each} 1 Each 4 (four) times daily. Use with insulin 4 times daily. Dx E11.8 [facility] flash glucose sensor (FREESTYLE DASH 2 SENSOR) Kit 2021-02 2 00:00: 00 Yes [id number] 1{each} 1 Each every 14 (fourteen) days. [facility] insulin aspart RAPID (NOVOLOG U-100 INSULIN ASPART) 100 unit/mL injection 2021-02 00:00: 00 Yes [id number] 20U inject 20 Units under the skin in the morning and 20 Units at noon and 20 Units in the evening. inject before meals. [facility] insulin syr/ndl U100 half melvin 0.5 mL 31 gauge x 5/16" [facility] 2021-02 00:00: 00 Yes [id number] 1{each} 1 Each 4 (four) times daily. Use with insulin 4 times daily. Dx E11.8 [facility] flash glucose sensor (FREESTYLE DASH 2 SENSOR) Kit 2021-02 00:00: 00 Yes [id number] 1{each} 1 Each every 14 (fourteen) days. [facility] insulin aspart RAPID (NOVOLOG U-100 INSULIN ASPART) 100 unit/mL injection 2021-02 00:00: 00 Yes [id number] 20U inject 20 Units under the skin in the morning and 20 Units at noon and 20 Units in the evening. inject before meals. [facility] insulin syr/ndl U100 half melvin 0.5 mL 31 gauge x 5/16" Syr 2021-02 2- 00:00: 00 Yes [id number] 1{each} 1 Each 4 (four) times daily. Use with insulin 4 times daily. Dx E11.8 [facility] flash glucose sensor (FREESTYLE DASH 2 SENSOR) Kit 2021-02 00:00: 00 Yes [id number] 1{each} 1 Each every 14 (fourteen) days. [facility] insulin aspart RAPID (NOVOLOG U-100 INSULIN ASPART) 100 unit/mL injection 2021-02 00:00: 00 Yes [id number] 20U inject 20 Units under the skin in the morning and 20 Units at noon and 20 Units in the evening. inject before meals. [facility] insulin syr/ndl U100 half melvin 0.5 mL 31 gauge x 5/16" Syr 2021-02 00:00: 00 Yes [id number] 1{each} 1 Each 4 (four) times daily. Use with insulin 4 times daily. Dx E11.8 [facility] flash glucose sensor (FREESTYLE DASH 2 SENSOR) Kit 2021-02 00:00: 00 Yes [id number] 1{each} 1 Each every 14 (fourteen) days. [facility] insulin aspart RAPID (NOVOLOG U-100 INSULIN ASPART) 100 unit/mL injection 2021-02 00:00: 00 Yes [id number] 20U inject 20 Units under the skin in the morning and 20 Units at noon and 20 Units in the evening. inject before meals. [facility] insulin syr/ndl U100 half melvin 0.5 mL 31 gauge x 5/16" [facility] 2021-02 00:00: 00 Yes [id number] 1{each} 1 Each 4 (four) times daily. Use with insulin 4 times daily. Dx E11.8 [facility] flash glucose sensor (FREESTYLE DASH 2 SENSOR) Kit 2021-02 00:00: 00 Yes [id number] 1{each} 1 Each every 14 (fourteen) days. [facility] insulin aspart RAPID (NOVOLOG U-100 INSULIN ASPART) 100 unit/mL injection 2021-02 00:00: 00 Yes [id number] 20U inject 20 Units under the skin in the morning and 20 Units at noon and 20 Units in the evening. inject before meals. [facility] insulin syr/ndl U100 half melvin 0.5 mL 31 gauge x 5/16" Syr 2021-02 00:00: 00 Yes [id number] 1{each} 1 Each 4 (four) times daily. Use with insulin 4 times daily. Dx E11.8 [facility] flash glucose sensor (FREESTYLE DASH 2 SENSOR) Kit 2021-02 00:00: 00 Yes [id number] 1{each} 1 Each every 14 (fourteen) days. [facility] insulin aspart RAPID (NOVOLOG U-100 INSULIN ASPART) 100 unit/mL injection 2021-02 00:00: 00 Yes [id number] 20U inject 20 Units under the skin in the morning and 20 Units at noon and 20 Units in the evening. inject before meals. [facility] insulin syr/ndl U100 half melvin 0.5 mL 31 gauge x 5/16" [facility] 2021-02 00:00: 00 Yes [id number] 1{each} 1 Each 4 (four) times daily. Use with insulin 4 times daily. Dx E11.8 [facility] flash glucose sensor (FREESTYLE DASH 2 SENSOR) Kit 2021-02 00:00: 00 Yes [id number] 1{each} 1 Each every 14 (fourteen) days. [facility] insulin aspart RAPID (NOVOLOG U-100 INSULIN ASPART) 100 unit/mL injection 2021-02 00:00: 00 Yes [id number] 20U inject 20 Units under the skin in the morning and 20 Units at noon and 20 Units in the evening. inject before meals. [facility] insulin syr/ndl U100 half melvin 0.5 mL 31 gauge x 5/16" [facility] 2021-02 00:00: 00 Yes [id number] 1{each} 1 Each 4 (four) times daily. Use with insulin 4 times daily. Dx E11.8 [facility] flash glucose sensor (FREESTYLE DASH 2 SENSOR) Kit 2021-02 00:00: 00 Yes [id number] 1{each} 1 Each every 14 (fourteen) days. [facility] insulin aspart RAPID (NOVOLOG U-100 INSULIN ASPART) 100 unit/mL injection 2021-02 00:00: 00 Yes [id number] 20U inject 20 Units under the skin in the morning and 20 Units at noon and 20 Units in the evening. inject before meals. [facility] insulin syr/ndl U100 half melvin 0.5 mL 31 gauge x 5/16" Syrg 2021-02 00:00: 00 Yes [id number] 1{each} 1 Each 4 (four) times daily. Use with insulin 4 times daily. Dx E11.8 [facility] flash glucose sensor (FREESTYLE DASH 2 SENSOR) Kit 2021-02 00:00: 00 Yes [id number] 1{each} 1 Each every 14 (fourteen) days. [facility] insulin aspart RAPID (NOVOLOG U-100 INSULIN ASPART) 100 unit/mL injection 2021-02 00:00: 00 Yes [id number] 20U inject 20 Units under the skin in the morning and 20 Units at noon and 20 Units in the evening. inject before meals. [facility] insulin syr/ndl U100 half melvin 0.5 mL 31 gauge x 5/16" Syr 2021-02 00:00: 00 Yes [id number] 1{each} 1 Each 4 (four) times daily. Use with insulin 4 times daily. Dx E11.8 [facility] flash glucose sensor (FREESTYLE DASH 2 SENSOR) Kit 2021-02 00:00: 00 Yes [id number] 1{each} 1 Each every 14 (fourteen) days. [facility] insulin aspart RAPID (NOVOLOG U-100 INSULIN ASPART) 100 unit/mL injection 2021-02 00:00: 00 Yes [id number] 20U inject 20 Units under the skin in the morning and 20 Units at noon and 20 Units in the evening. inject before meals. [facility] insulin syr/ndl U100 half melvin 0.5 mL 31 gauge x 5/16" Syrg 2021-02 00:00: 00 Yes [id number] 1{each} 1 Each 4 (four) times daily. Use with insulin 4 times daily. Dx E11.8 [facility] flash glucose sensor (FREESTYLE DASH 2 SENSOR) Kit 2021-02 00:00: 00 Yes [id number] 1{each} 1 Each every 14 (fourteen) days. [facility] insulin aspart RAPID (NOVOLOG U-100 INSULIN ASPART) 100 unit/mL injection 2021-02 2- 00:00: 00 Yes [id number] 20U inject 20 Units under the skin in the morning and 20 Units at noon and 20 Units in the evening. inject before meals. [facility] insulin syr/ndl U100 half melvin 0.5 mL 31 gauge x 5/16" Syrg 2021-02 2-20 00:00: 00 Yes [id number] 1{each} 1 Each 4 (four) times daily. Use with insulin 4 times daily. Dx E11.8 [facility] flash glucose sensor (FREESTYLE DASH 2 SENSOR) Kit 2021-02 00:00: 00 Yes [id number] 1{each} 1 Each every 14 (fourteen) days. [facility] insulin aspart RAPID (NOVOLOG U-100 INSULIN ASPART) 100 unit/mL injection 2021-02 00:00: 00 Yes [id number] 20U inject 20 Units under the skin in the morning and 20 Units at noon and 20 Units in the evening. inject before meals. [facility] insulin syr/ndl U100 half melvin 0.5 mL 31 gauge x 5/16" [facility] 2021-02 2- 00:00: 00 Yes [id number] 1{each} 1 Each 4 (four) times daily. Use with insulin 4 times daily. Dx E11.8 [facility] flash glucose sensor (FREESTYLE DASH 2 SENSOR) Kit 2021-02 2- 00:00: 00 Yes [id number] 1{each} 1 Each every 14 (fourteen) days. [facility] insulin aspart RAPID (NOVOLOG U-100 INSULIN ASPART) 100 unit/mL injection 2021-02 2- 00:00: 00 Yes [id number] 20U inject 20 Units under the skin in the morning and 20 Units at noon and 20 Units in the evening. inject before meals. [facility] insulin syr/ndl U100 half melvin 0.5 mL 31 gauge x 5/16" Syrg 2021-02 2-20 00:00: 00 Yes [id number] 1{each} 1 Each 4 (four) times daily. Use with insulin 4 times daily. Dx E11.8 [facility] flash glucose sensor (FREESTYLE DASH 2 SENSOR) Kit 2021-02 00:00: 00 Yes [id number] 1{each} 1 Each every 14 (fourteen) days. [facility] insulin aspart RAPID (NOVOLOG U-100 INSULIN ASPART) 100 unit/mL injection 2021-02 00:00: 00 Yes [id number] 20U inject 20 Units under the skin in the morning and 20 Units at noon and 20 Units in the evening. inject before meals. [facility] insulin syr/ndl U100 half melvin 0.5 mL 31 gauge x 5/16" Syrg 2021-02 00:00: 00 Yes [id number] 1{each} 1 Each 4 (four) times daily. Use with insulin 4 times daily. Dx E11.8 [facility] flash glucose sensor (FREESTYLE DASH 2 SENSOR) Kit 2021-02 00:00: 00 Yes [id number] 1{each} 1 Each every 14 (fourteen) days. [facility] insulin aspart RAPID (NOVOLOG U-100 INSULIN ASPART) 100 unit/mL injection 2021-02 00:00: 00 Yes [id number] 20U inject 20 Units under the skin in the morning and 20 Units at noon and 20 Units in the evening. inject before meals. [facility] insulin syr/ndl U100 half melvin 0.5 mL 31 gauge x 5/16" Syrg 2021-02 00:00: 00 Yes [id number] 1{each} 1 Each 4 (four) times daily. Use with insulin 4 times daily. Dx E11.8 [facility] flash glucose sensor (FREESTYLE DASH 2 SENSOR) Kit 2021-02 00:00: 00 Yes [id number] 1{each} 1 Each every 14 (fourteen) days. [facility] insulin aspart RAPID (NOVOLOG U-100 INSULIN ASPART) 100 unit/mL injection 2021-02 00:00: 00 Yes [id number] 20U inject 20 Units under the skin in the morning and 20 Units at noon and 20 Units in the evening. inject before meals. [facility] insulin syr/ndl U100 half melvin 0.5 mL 31 gauge x 5/16" Syrg 2021-02 00:00: 00 Yes [id number] 1{each} 1 Each 4 (four) times daily. Use with insulin 4 times daily. Dx E11.8 [facility] flash glucose sensor (FREESTYLE DASH 2 SENSOR) Kit 2021-02 00:00: 00 Yes [id number] 1{each} 1 Each every 14 (fourteen) days. [facility] insulin aspart RAPID (NOVOLOG U-100 INSULIN ASPART) 100 unit/mL injection 2021-02 00:00: 00 Yes [id number] 20U inject 20 Units under the skin in the morning and 20 Units at noon and 20 Units in the evening. inject before meals. [facility] insulin syr/ndl U100 half melvin 0.5 mL 31 gauge x 5/16" [facility] 2021-02 00:00: 00 Yes [id number] 1{each} 1 Each 4 (four) times daily. Use with insulin 4 times daily. Dx E11.8 [facility] flash glucose sensor (FREESTYLE DASH 2 SENSOR) Kit 2021-02 00:00: 00 Yes [id number] 1{each} 1 Each every 14 (fourteen) days. [facility] insulin aspart RAPID (NOVOLOG U-100 INSULIN ASPART) 100 unit/mL injection 2021-02 00:00: 00 Yes [id number] 20U inject 20 Units under the skin in the morning and 20 Units at noon and 20 Units in the evening. inject before meals. [facility] insulin syr/ndl U100 half melvin 0.5 mL 31 gauge x 5/16" Syr 2021-02 00:00: 00 Yes [id number] 1{each} 1 Each 4 (four) times daily. Use with insulin 4 times daily. Dx E11.8 [facility] flash glucose sensor (FREESTYLE DASH 2 SENSOR) Kit 2021-02 00:00: 00 Yes [id number] 1{each} 1 Each every 14 (fourteen) days. [facility] insulin aspart RAPID (NOVOLOG U-100 INSULIN ASPART) 100 unit/mL injection 2021-02 2- 00:00: 00 Yes [id number] 20U inject 20 Units under the skin in the morning and 20 Units at noon and 20 Units in the evening. inject before meals. [facility] insulin syr/ndl U100 half melvin 0.5 mL 31 gauge x 5/16" Syrg 2021-02 2-20 00:00: 00 Yes [id number] 1{each} 1 Each 4 (four) times daily. Use with insulin 4 times daily. Dx E11.8 [facility] flash glucose sensor (FREESTYLE DASH 2 SENSOR) Kit 2021-02- 00:00: 00 Yes [id number] 1{each} 1 Each every 14 (fourteen) days. [facility] insulin aspart RAPID (NOVOLOG U-100 INSULIN ASPART) 100 unit/mL injection 2021-02 00:00: 00 Yes [id number] 20U inject 20 Units under the skin in the morning and 20 Units at noon and 20 Units in the evening. inject before meals. [facility] insulin syr/ndl U100 half melvin 0.5 mL 31 gauge x 5/16" [facility] 2021-02 2-20 00:00: 00 Yes [id number] 1{each} 1 Each 4 (four) times daily. Use with insulin 4 times daily. Dx E11.8 [facility] flash glucose sensor (FREESTYLE DASH 2 SENSOR) Kit 2021-02 2- 00:00: 00 Yes [id number] 1{each} 1 Each every 14 (fourteen) days. [facility] insulin aspart RAPID (NOVOLOG U-100 INSULIN ASPART) 100 unit/mL injection 2021-02 2-20 00:00: 00 Yes [id number] 20U inject 20 Units under the skin in the morning and 20 Units at noon and 20 Units in the evening. inject before meals. [facility] insulin syr/ndl U100 half melvin 0.5 mL 31 gauge x 5/16" Syrg 2021-02 2-20 00:00: 00 Yes [id number] 1{each} 1 Each 4 (four) times daily. Use with insulin 4 times daily. Dx E11.8 [facility] flash glucose sensor (FREESTYLE DASH 2 SENSOR) Kit 2021-02 2- 00:00: 00 Yes [id number] 1{each} 1 Each every 14 (fourteen) days. [facility] insulin aspart RAPID (NOVOLOG U-100 INSULIN ASPART) 100 unit/mL injection 2021-02 2- 00:00: 00 Yes [id number] 20U inject 20 Units under the skin in the morning and 20 Units at noon and 20 Units in the evening. inject before meals. [facility] insulin syr/ndl U100 half melvin 0.5 mL 31 gauge x 5/16" Syrg 2021-02 2- 00:00: 00 Yes [id number] 1{each} 1 Each 4 (four) times daily. Use with insulin 4 times daily. Dx E11.8 [facility] flash glucose sensor (FREESTYLE DASH 2 SENSOR) Kit 2021-02 2 00:00: 00 Yes [id number] 1{each} 1 Each every 14 (fourteen) days. [facility] insulin aspart RAPID (NOVOLOG U-100 INSULIN ASPART) 100 unit/mL injection 2021-02 2 00:00: 00 Yes [id number] 20U inject 20 Units under the skin in the morning and 20 Units at noon and 20 Units in the evening. inject before meals. [facility] insulin syr/ndl U100 half melvin 0.5 mL 31 gauge x 5/16" Syr 2021-02 2- 00:00: 00 Yes [id number] 1{each} 1 Each 4 (four) times daily. Use with insulin 4 times daily. Dx E11.8 [facility] flash glucose sensor (FREESTYLE DASH 2 SENSOR) Kit 2021-02 2- 00:00: 00 Yes [id number] 1{each} 1 Each every 14 (fourteen) days. [facility] insulin aspart RAPID (NOVOLOG U-100 INSULIN ASPART) 100 unit/mL injection 2021-02 2-20 00:00: 00 Yes [id number] 20U inject 20 Units under the skin in the morning and 20 Units at noon and 20 Units in the evening. inject before meals. [facility] insulin syr/ndl U100 half melvin 0.5 mL 31 gauge x 5/16" Syrg 2021-02 2 00:00: 00 Yes [id number] 1{each} 1 Each 4 (four) times daily. Use with insulin 4 times daily. Dx E11.8 [facility] flash glucose sensor (FREESTYLE DASH 2 SENSOR) Kit 2021-02 2 00:00: 00 Yes [id number] 1{each} 1 Each every 14 (fourteen) days. [facility] insulin aspart RAPID (NOVOLOG U-100 INSULIN ASPART) 100 unit/mL injection 2021-02 00:00: 00 Yes [id number] 20U inject 20 Units under the skin in the morning and 20 Units at noon and 20 Units in the evening. inject before meals. [facility] insulin syr/ndl U100 half melvin 0.5 mL 31 gauge x 5/16" Syr 2021-02 00:00: 00 Yes [id number] 1{each} 1 Each 4 (four) times daily. Use with insulin 4 times daily. Dx E11.8 [facility] flash glucose sensor (FREESTYLE DASH 2 SENSOR) Kit 2021-02 00:00: 00 Yes [id number] 1{each} 1 Each every 14 (fourteen) days. [facility] insulin aspart RAPID (NOVOLOG U-100 INSULIN ASPART) 100 unit/mL injection 2021-02 00:00: 00 Yes [id number] 20U inject 20 Units under the skin in the morning and 20 Units at noon and 20 Units in the evening. inject before meals. [facility] insulin syr/ndl U100 half melvin 0.5 mL 31 gauge x 5/16" Syrg 2021-02 2 00:00: 00 Yes [id number] 1{each} 1 Each 4 (four) times daily. Use with insulin 4 times daily. Dx E11.8 [facility] flash glucose sensor (FREESTYLE DASH 2 SENSOR) Kit 2021-02 00:00: 00 Yes [id number] 1{each} 1 Each every 14 (fourteen) days. [facility] insulin aspart RAPID (NOVOLOG U-100 INSULIN ASPART) 100 unit/mL injection 2021-02 2-20 00:00: 00 Yes [id number] 20U inject 20 Units under the skin in the morning and 20 Units at noon and 20 Units in the evening. inject before meals. [facility] insulin syr/ndl U100 half melvin 0.5 mL 31 gauge x 5/16" Syrg 2021-02 2-20 00:00: 00 Yes [id number] 1{each} 1 Each 4 (four) times daily. Use with insulin 4 times daily. Dx E11.8 [facility] flash glucose sensor (FREESTYLE DASH 2 SENSOR) Kit 2021-02 2- 00:00: 00 Yes [id number] 1{each} 1 Each every 14 (fourteen) days. [facility] insulin aspart RAPID (NOVOLOG U-100 INSULIN ASPART) 100 unit/mL injection 2021-02 2 00:00: 00 Yes [id number] 20U inject 20 Units under the skin in the morning and 20 Units at noon and 20 Units in the evening. inject before meals. [facility] insulin syr/ndl U100 half melvin 0.5 mL 31 gauge x 5/16" Syr 2021-02 2-20 00:00: 00 Yes [id number] 1{each} 1 Each 4 (four) times daily. Use with insulin 4 times daily. Dx E11.8 [facility] flash glucose sensor (FREESTYLE DASH 2 SENSOR) Kit 2021-02 2- 00:00: 00 Yes [id number] 1{each} 1 Each every 14 (fourteen) days. [facility] insulin aspart RAPID (NOVOLOG U-100 INSULIN ASPART) 100 unit/mL injection 2021-02 2-20 00:00: 00 Yes [id number] 20U inject 20 Units under the skin in the morning and 20 Units at noon and 20 Units in the evening. inject before meals. [facility] insulin syr/ndl U100 half melvin 0.5 mL 31 gauge x 5/16" Syrg 2021-02 2-20 00:00: 00 Yes [id number] 1{each} 1 Each 4 (four) times daily. Use with insulin 4 times daily. Dx E11.8 [facility] flash glucose sensor (FREESTYLE DASH 2 SENSOR) Kit 2021-02 2- 00:00: 00 Yes [id number] 1{each} 1 Each every 14 (fourteen) days. [facility] insulin aspart RAPID (NOVOLOG U-100 INSULIN ASPART) 100 unit/mL injection 2021-02 2- 00:00: 00 Yes [id number] 20U inject 20 Units under the skin in the morning and 20 Units at noon and 20 Units in the evening. inject before meals. [facility] insulin syr/ndl U100 half melvin 0.5 mL 31 gauge x 5/16" Syrg 2021-02 2- 00:00: 00 Yes [id number] 1{each} 1 Each 4 (four) times daily. Use with insulin 4 times daily. Dx E11.8 [facility] flash glucose sensor (FREESTYLE DASH 2 SENSOR) Kit 2021-02 00:00: 00 Yes [id number] 1{each} 1 Each every 14 (fourteen) days. [facility] insulin aspart RAPID (NOVOLOG U-100 INSULIN ASPART) 100 unit/mL injection 2021-02 00:00: 00 Yes [id number] 20U inject 20 Units under the skin in the morning and 20 Units at noon and 20 Units in the evening. inject before meals. [facility] insulin syr/ndl U100 half melvin 0.5 mL 31 gauge x 5/16" Syrg 2021-02- 00:00: 00 Yes [id number] 1{each} 1 Each 4 (four) times daily. Use with insulin 4 times daily. Dx E11.8 [facility] flash glucose sensor (FREESTYLE DASH 2 SENSOR) Kit 2021-02 00:00: 00 Yes [id number] 1{each} 1 Each every 14 (fourteen) days. [facility] insulin aspart RAPID (NOVOLOG U-100 INSULIN ASPART) 100 unit/mL injection 2021-02- 00:00: 00 Yes [id number] 20U inject 20 Units under the skin in the morning and 20 Units at noon and 20 Units in the evening. inject before meals. [facility] insulin syr/ndl U100 half melvin 0.5 mL 31 gauge x 5/16" Syrg 2021-02 2- 00:00: 00 Yes [id number] 1{each} 1 Each 4 (four) times daily. Use with insulin 4 times daily. Dx E11.8 [facility] flash glucose sensor (FREESTYLE DASH 2 SENSOR) Kit 2021-02 2 00:00: 00 Yes [id number] 1{each} 1 Each every 14 (fourteen) days. [facility] insulin aspart RAPID (NOVOLOG U-100 INSULIN ASPART) 100 unit/mL injection 2021-02 2 00:00: 00 Yes [id number] 20U inject 20 Units under the skin in the morning and 20 Units at noon and 20 Units in the evening. inject before meals. [facility] insulin syr/ndl U100 half melvin 0.5 mL 31 gauge x 5/16" [facility] 2021-02 2 00:00: 00 Yes [id number] 1{each} 1 Each 4 (four) times daily. Use with insulin 4 times daily. Dx E11.8 [facility] flash glucose sensor (FREESTYLE DASH 2 SENSOR) Kit 2021-02 00:00: 00 Yes [id number] 1{each} 1 Each every 14 (fourteen) days. [facility] insulin aspart RAPID (NOVOLOG U-100 INSULIN ASPART) 100 unit/mL injection 2021-02 00:00: 00 Yes [id number] 20U inject 20 Units under the skin in the morning and 20 Units at noon and 20 Units in the evening. inject before meals. [facility] insulin syr/ndl U100 half melvin 0.5 mL 31 gauge x 5/16" Syr 2021-02 2- 00:00: 00 Yes [id number] 1{each} 1 Each 4 (four) times daily. Use with insulin 4 times daily. Dx E11.8 [facility] flash glucose sensor (FREESTYLE DASH 2 SENSOR) Kit 2021-02 00:00: 00 Yes [id number] 1{each} 1 Each every 14 (fourteen) days. [facility] insulin aspart RAPID (NOVOLOG U-100 INSULIN ASPART) 100 unit/mL injection 2021-02 2-20 00:00: 00 Yes [id number] 20U inject 20 Units under the skin in the morning and 20 Units at noon and 20 Units in the evening. inject before meals. [facility] insulin syr/ndl U100 half melvin 0.5 mL 31 gauge x 5/16" Syrg 2021-02 2-20 00:00: 00 Yes [id number] 1{each} 1 Each 4 (four) times daily. Use with insulin 4 times daily. Dx E11.8 [facility] flash glucose sensor (FREESTYLE DASH 2 SENSOR) Kit 2021-02 2- 00:00: 00 Yes [id number] 1{each} 1 Each every 14 (fourteen) days. [facility] insulin aspart RAPID (NOVOLOG U-100 INSULIN ASPART) 100 unit/mL injection 2021-02 00:00: 00 Yes [id number] 20U inject 20 Units under the skin in the morning and 20 Units at noon and 20 Units in the evening. inject before meals. [facility] insulin syr/ndl U100 half melvin 0.5 mL 31 gauge x 5/16" Syr 2021-02 2- 00:00: 00 Yes [id number] 1{each} 1 Each 4 (four) times daily. Use with insulin 4 times daily. Dx E11.8 [facility] flash glucose sensor (FREESTYLE DASH 2 SENSOR) Kit 2021-02 00:00: 00 Yes [id number] 1{each} 1 Each every 14 (fourteen) days. [facility] insulin aspart RAPID (NOVOLOG U-100 INSULIN ASPART) 100 unit/mL injection 2021-02 2-20 00:00: 00 Yes [id number] 20U inject 20 Units under the skin in the morning and 20 Units at noon and 20 Units in the evening. inject before meals. [facility] insulin syr/ndl U100 half melvin 0.5 mL 31 gauge x 5/16" Syrg 2021-02 2-20 00:00: 00 Yes [id number] 1{each} 1 Each 4 (four) times daily. Use with insulin 4 times daily. Dx E11.8 [facility] flash glucose sensor (FREESTYLE DASH 2 SENSOR) Kit 2021-02 00:00: 00 Yes [id number] 1{each} 1 Each every 14 (fourteen) days. [facility] insulin aspart RAPID (NOVOLOG U-100 INSULIN ASPART) 100 unit/mL injection 2021-02 00:00: 00 Yes [id number] 20U inject 20 Units under the skin in the morning and 20 Units at noon and 20 Units in the evening. inject before meals. [facility] insulin syr/ndl U100 half melvin 0.5 mL 31 gauge x 5/16" Syrg 2021-02 00:00: 00 Yes [id number] 1{each} 1 Each 4 (four) times daily. Use with insulin 4 times daily. Dx E11.8 [facility] flash glucose sensor (FREESTYLE DASH 2 SENSOR) Kit 2021-02 00:00: 00 Yes [id number] 1{each} 1 Each every 14 (fourteen) days. [facility] insulin aspart RAPID (NOVOLOG U-100 INSULIN ASPART) 100 unit/mL injection 2021-02 00:00: 00 Yes [id number] 20U inject 20 Units under the skin in the morning and 20 Units at noon and 20 Units in the evening. inject before meals. [facility] insulin syr/ndl U100 half melvin 0.5 mL 31 gauge x 5/16" Syrg 2021-02 00:00: 00 Yes [id number] 1{each} 1 Each 4 (four) times daily. Use with insulin 4 times daily. Dx E11.8 [facility] flash glucose sensor (FREESTYLE DASH 2 SENSOR) Kit 2021-02 00:00: 00 Yes [id number] 1{each} 1 Each every 14 (fourteen) days. [facility] insulin aspart RAPID (NOVOLOG U-100 INSULIN ASPART) 100 unit/mL injection 2021-02 00:00: 00 Yes [id number] 20U inject 20 Units under the skin in the morning and 20 Units at noon and 20 Units in the evening. inject before meals. [facility] insulin syr/ndl U100 half melvin 0.5 mL 31 gauge x 5/16" Syrg 2021-02 00:00: 00 Yes [id number] 1{each} 1 Each 4 (four) times daily. Use with insulin 4 times daily. Dx E11.8 [facility] flash glucose sensor (FREESTYLE DASH 2 SENSOR) Kit 2021-02 00:00: 00 Yes [id number] 1{each} 1 Each every 14 (fourteen) days. [facility] insulin aspart RAPID (NOVOLOG U-100 INSULIN ASPART) 100 unit/mL injection 2021-02 00:00: 00 Yes [id number] 20U inject 20 Units under the skin in the morning and 20 Units at noon and 20 Units in the evening. inject before meals. [facility] insulin syr/ndl U100 half melvin 0.5 mL 31 gauge x 5/16" Syrg 2021-02 00:00: 00 Yes [id number] 1{each} 1 Each 4 (four) times daily. Use with insulin 4 times daily. Dx E11.8 [facility] flash glucose sensor (FREESTYLE DASH 2 SENSOR) Kit 2021-02 00:00: 00 Yes [id number] 1{each} 1 Each every 14 (fourteen) days. [facility] insulin aspart RAPID (NOVOLOG U-100 INSULIN ASPART) 100 unit/mL injection 2021-02 00:00: 00 Yes [id number] 20U inject 20 Units under the skin in the morning and 20 Units at noon and 20 Units in the evening. inject before meals. [facility] insulin syr/ndl U100 half melvin 0.5 mL 31 gauge x 5/16" Syrg 2021-02 00:00: 00 Yes [id number] 1{each} 1 Each 4 (four) times daily. Use with insulin 4 times daily. Dx E11.8 [facility] flash glucose sensor (FREESTYLE DASH 2 SENSOR) Kit 2021-02 00:00: 00 Yes [id number] 1{each} 1 Each every 14 (fourteen) days. [facility] insulin aspart RAPID (NOVOLOG U-100 INSULIN ASPART) 100 unit/mL injection 2021-02 00:00: 00 Yes [id number] 20U inject 20 Units under the skin in the morning and 20 Units at noon and 20 Units in the evening. inject before meals. [facility] insulin syr/ndl U100 half melvin 0.5 mL 31 gauge x 5/16" Syrg 2021-02 2- 00:00: 00 Yes [id number] 1{each} 1 Each 4 (four) times daily. Use with insulin 4 times daily. Dx E11.8 [facility] flash glucose sensor (FREESTYLE DASH 2 SENSOR) Kit 2021-02 00:00: 00 Yes [id number] 1{each} 1 Each every 14 (fourteen) days. [facility] insulin aspart RAPID (NOVOLOG U-100 INSULIN ASPART) 100 unit/mL injection 2021-02 00:00: 00 Yes [id number] 20U inject 20 Units under the skin in the morning and 20 Units at noon and 20 Units in the evening. inject before meals. [facility] insulin syr/ndl U100 half melvin 0.5 mL 31 gauge x 5/16" [facility] 2021-02 00:00: 00 Yes [id number] 1{each} 1 Each 4 (four) times daily. Use with insulin 4 times daily. Dx E11.8 [facility] flash glucose sensor (FREESTYLE DASH 2 SENSOR) Kit 2021-02 00:00: 00 Yes [id number] 1{each} 1 Each every 14 (fourteen) days. [facility] insulin aspart RAPID (NOVOLOG U-100 INSULIN ASPART) 100 unit/mL injection 2021-02 00:00: 00 Yes [id number] 20U inject 20 Units under the skin in the morning and 20 Units at noon and 20 Units in the evening. inject before meals. [facility] insulin syr/ndl U100 half melvin 0.5 mL 31 gauge x 5/16" Syr 2021-02- 00:00: 00 Yes [id number] 1{each} 1 Each 4 (four) times daily. Use with insulin 4 times daily. Dx E11.8 [facility] flash glucose sensor (FREESTYLE DASH 2 SENSOR) Kit 2021-02 00:00: 00 Yes [id number] 1{each} 1 Each every 14 (fourteen) days. [facility] insulin aspart RAPID (NOVOLOG U-100 INSULIN ASPART) 100 unit/mL injection 2021-02 00:00: 00 Yes [id number] 20U inject 20 Units under the skin in the morning and 20 Units at noon and 20 Units in the evening. inject before meals. [facility] insulin syr/ndl U100 half melvin 0.5 mL 31 gauge x 5/16" Syrg 2021-02 00:00: 00 Yes [id number] 1{each} 1 Each 4 (four) times daily. Use with insulin 4 times daily. Dx E11.8 [facility] flash glucose sensor (FREESTYLE DASH 2 SENSOR) Kit 2021-02 00:00: 00 Yes [id number] 1{each} 1 Each every 14 (fourteen) days. [facility] insulin aspart RAPID (NOVOLOG U-100 INSULIN ASPART) 100 unit/mL injection 2021-02 00:00: 00 Yes [id number] 20U inject 20 Units under the skin in the morning and 20 Units at noon and 20 Units in the evening. inject before meals. [facility] insulin syr/ndl U100 half melvin 0.5 mL 31 gauge x 5/16" [facility] 2021-02 00:00: 00 Yes [id number] 1{each} 1 Each 4 (four) times daily. Use with insulin 4 times daily. Dx E11.8 [facility] flash glucose sensor (FREESTYLE DASH 2 SENSOR) Kit 2021-02 00:00: 00 Yes [id number] 1{each} 1 Each every 14 (fourteen) days. [facility] insulin aspart RAPID (NOVOLOG U-100 INSULIN ASPART) 100 unit/mL injection 2021-02 00:00: 00 Yes [id number] 20U inject 20 Units under the skin in the morning and 20 Units at noon and 20 Units in the evening. inject before meals. [facility] insulin syr/ndl U100 half melvin 0.5 mL 31 gauge x 5/16" Syr 2021-02 00:00: 00 Yes [id number] 1{each} 1 Each 4 (four) times daily. Use with insulin 4 times daily. Dx E11.8 [facility] flash glucose sensor (FREESTYLE DASH 2 SENSOR) Kit 2021-02 00:00: 00 Yes [id number] 1{each} 1 Each every 14 (fourteen) days. [facility] insulin aspart RAPID (NOVOLOG U-100 INSULIN ASPART) 100 unit/mL injection 2021-02 00:00: 00 Yes [id number] 20U inject 20 Units under the skin in the morning and 20 Units at noon and 20 Units in the evening. inject before meals. [facility] insulin syr/ndl U100 half melvin 0.5 mL 31 gauge x 5/16" Syrg 2021-02 00:00: 00 Yes [id number] 1{each} 1 Each 4 (four) times daily. Use with insulin 4 times daily. Dx E11.8 [facility] flash glucose sensor (FREESTYLE DASH 2 SENSOR) Kit 2021-02 00:00: 00 Yes [id number] 1{each} 1 Each every 14 (fourteen) days. [facility] insulin aspart RAPID (NOVOLOG U-100 INSULIN ASPART) 100 unit/mL injection 2021-02 00:00: 00 Yes [id number] 20U inject 20 Units under the skin in the morning and 20 Units at noon and 20 Units in the evening. inject before meals. [facility] insulin syr/ndl U100 half melvin 0.5 mL 31 gauge x 5/16" Syrg 2021-02 00:00: 00 Yes [id number] 1{each} 1 Each 4 (four) times daily. Use with insulin 4 times daily. Dx E11.8 [facility] flash glucose sensor (FREESTYLE DASH 2 SENSOR) Kit 2021-02 00:00: 00 Yes [id number] 1{each} 1 Each every 14 (fourteen) days. [facility] insulin aspart RAPID (NOVOLOG U-100 INSULIN ASPART) 100 unit/mL injection 2021-02 00:00: 00 Yes [id number] 20U inject 20 Units under the skin in the morning and 20 Units at noon and 20 Units in the evening. inject before meals. [facility] insulin syr/ndl U100 half melvin 0.5 mL 31 gauge x 5/16" Syrg 2021-02 00:00: 00 Yes [id number] 1{each} 1 Each 4 (four) times daily. Use with insulin 4 times daily. Dx E11.8 [facility] flash glucose sensor (FREESTYLE DASH 2 SENSOR) Kit 2021-02 00:00: 00 Yes [id number] 1{each} 1 Each every 14 (fourteen) days. [facility] insulin aspart RAPID (NOVOLOG U-100 INSULIN ASPART) 100 unit/mL injection 2021-02 00:00: 00 Yes [id number] 20U inject 20 Units under the skin in the morning and 20 Units at noon and 20 Units in the evening. inject before meals. [facility] insulin syr/ndl U100 half melvin 0.5 mL 31 gauge x 5/16" [facility] 2021-02 00:00: 00 Yes [id number] 1{each} 1 Each 4 (four) times daily. Use with insulin 4 times daily. Dx E11.8 [facility] flash glucose sensor (FREESTYLE DASH 2 SENSOR) Kit 2021-02 00:00: 00 Yes [id number] 1{each} 1 Each every 14 (fourteen) days. [facility] insulin aspart RAPID (NOVOLOG U-100 INSULIN ASPART) 100 unit/mL injection 2021-02 00:00: 00 Yes [id number] 20U inject 20 Units under the skin in the morning and 20 Units at noon and 20 Units in the evening. inject before meals. [facility] insulin syr/ndl U100 half melvin 0.5 mL 31 gauge x 5/16" Syr 2021-02 00:00: 00 Yes [id number] 1{each} 1 Each 4 (four) times daily. Use with insulin 4 times daily. Dx E11.8 [facility] flash glucose sensor (FREESTYLE DASH 2 SENSOR) Kit 2021-02 00:00: 00 Yes [id number] 1{each} 1 Each every 14 (fourteen) days. [facility] insulin aspart RAPID (NOVOLOG U-100 INSULIN ASPART) 100 unit/mL injection 2021-02 00:00: 00 Yes [id number] 20U inject 20 Units under the skin in the morning and 20 Units at noon and 20 Units in the evening. inject before meals. [facility] insulin syr/ndl U100 half melvin 0.5 mL 31 gauge x 5/16" Syrg 2021-02 2- 00:00: 00 Yes [id number] 1{each} 1 Each 4 (four) times daily. Use with insulin 4 times daily. Dx E11.8 [facility] flash glucose sensor (FREESTYLE DASH 2 SENSOR) Kit 2021-02 00:00: 00 Yes [id number] 1{each} 1 Each every 14 (fourteen) days. [facility] insulin aspart RAPID (NOVOLOG U-100 INSULIN ASPART) 100 unit/mL injection 2021-02 00:00: 00 Yes [id number] 20U inject 20 Units under the skin in the morning and 20 Units at noon and 20 Units in the evening. inject before meals. [facility] insulin syr/ndl U100 half melvin 0.5 mL 31 gauge x 5/16" Syr 2021-02 2- 00:00: 00 Yes [id number] 1{each} 1 Each 4 (four) times daily. Use with insulin 4 times daily. Dx E11.8 [facility] flash glucose sensor (FREESTYLE DASH 2 SENSOR) Kit 2021-02 00:00: 00 Yes [id number] 1{each} 1 Each every 14 (fourteen) days. [facility] insulin aspart RAPID (NOVOLOG U-100 INSULIN ASPART) 100 unit/mL injection 2021-02 2- 00:00: 00 Yes [id number] 20U inject 20 Units under the skin in the morning and 20 Units at noon and 20 Units in the evening. inject before meals. [facility] insulin syr/ndl U100 half melvin 0.5 mL 31 gauge x 5/16" Syrg 2021-02 2-20 00:00: 00 Yes [id number] 1{each} 1 Each 4 (four) times daily. Use with insulin 4 times daily. Dx E11.8 [facility] flash glucose sensor (FREESTYLE DASH 2 SENSOR) Kit 2021-02 00:00: 00 Yes [id number] 1{each} 1 Each every 14 (fourteen) days. [facility] insulin aspart RAPID (NOVOLOG U-100 INSULIN ASPART) 100 unit/mL injection 2021-02- 00:00: 00 Yes [id number] 20U inject 20 Units under the skin in the morning and 20 Units at noon and 20 Units in the evening. inject before meals. [facility] insulin syr/ndl U100 half melvin 0.5 mL 31 gauge x 5/16" Syr 2021-02 00:00: 00 Yes [id number] 1{each} 1 Each 4 (four) times daily. Use with insulin 4 times daily. Dx E11.8 [facility] flash glucose sensor (FREESTYLE DASH 2 SENSOR) Kit 2021-02 00:00: 00 Yes [id number] 1{each} 1 Each every 14 (fourteen) days. [facility] insulin aspart RAPID (NOVOLOG U-100 INSULIN ASPART) 100 unit/mL injection 2021-02 00:00: 00 Yes [id number] 20U inject 20 Units under the skin in the morning and 20 Units at noon and 20 Units in the evening. inject before meals. [facility] insulin syr/ndl U100 half melvin 0.5 mL 31 gauge x 5/16" Syrg 2021-02 00:00: 00 Yes [id number] 1{each} 1 Each 4 (four) times daily. Use with insulin 4 times daily. Dx E11.8 [facility] flash glucose sensor (FREESTYLE DASH 2 SENSOR) Kit 2021-02 00:00: 00 Yes [id number] 1{each} 1 Each every 14 (fourteen) days. [facility] insulin aspart RAPID (NOVOLOG U-100 INSULIN ASPART) 100 unit/mL injection 2021-02 00:00: 00 Yes [id number] 20U inject 20 Units under the skin in the morning and 20 Units at noon and 20 Units in the evening. inject before meals. [facility] insulin syr/ndl U100 half melvin 0.5 mL 31 gauge x 5/16" Syrg 2021-02 00:00: 00 Yes [id number] 1{each} 1 Each 4 (four) times daily. Use with insulin 4 times daily. Dx E11.8 [facility] flash glucose sensor (FREESTYLE DASH 2 SENSOR) Kit 2021-02 00:00: 00 Yes [id number] 1{each} 1 Each every 14 (fourteen) days. [facility] insulin aspart RAPID (NOVOLOG U-100 INSULIN ASPART) 100 unit/mL injection 2021-02 00:00: 00 Yes [id number] 20U inject 20 Units under the skin in the morning and 20 Units at noon and 20 Units in the evening. inject before meals. [facility] insulin syr/ndl U100 half melvin 0.5 mL 31 gauge x 5/16" [facility] 2021-02 00:00: 00 Yes [id number] 1{each} 1 Each 4 (four) times daily. Use with insulin 4 times daily. Dx E11.8 [facility] flash glucose sensor (FREESTYLE ADSH 2 SENSOR) Kit 2021-02 00:00: 00 Yes [id number] 1{each} 1 Each every 14 (fourteen) days. [facility] insulin aspart RAPID (NOVOLOG U-100 INSULIN ASPART) 100 unit/mL injection 2021-02 00:00: 00 Yes [id number] 20U inject 20 Units under the skin in the morning and 20 Units at noon and 20 Units in the evening. inject before meals. [facility] insulin syr/ndl U100 half melvin 0.5 mL 31 gauge x 5/16" Syr 2021-02 00:00: 00 Yes [id number] 1{each} 1 Each 4 (four) times daily. Use with insulin 4 times daily. Dx E11.8 [facility] flash glucose sensor (FREESTYLE DASH 2 SENSOR) Kit 2021-02 00:00: 00 Yes [id number] 1{each} 1 Each every 14 (fourteen) days. [facility] insulin aspart RAPID (NOVOLOG U-100 INSULIN ASPART) 100 unit/mL injection 2021-02 2-20 00:00: 00 Yes [id number] 20U inject 20 Units under the skin in the morning and 20 Units at noon and 20 Units in the evening. inject before meals. [facility] insulin syr/ndl U100 half melvin 0.5 mL 31 gauge x 5/16" Syrg 2021-02 2-20 00:00: 00 Yes [id number] 1{each} 1 Each 4 (four) times daily. Use with insulin 4 times daily. Dx E11.8 [facility] flash glucose sensor (FREESTYLE DASH 2 SENSOR) Kit 2021-02 2 00:00: 00 Yes [id number] 1{each} 1 Each every 14 (fourteen) days. [facility] insulin aspart RAPID (NOVOLOG U-100 INSULIN ASPART) 100 unit/mL injection 2021-02 2 00:00: 00 Yes [id number] 20U inject 20 Units under the skin in the morning and 20 Units at noon and 20 Units in the evening. inject before meals. [facility] insulin syr/ndl U100 half mlevin 0.5 mL 31 gauge x 5/16" [facility] 2021-02 2-20 00:00: 00 Yes [id number] 1{each} 1 Each 4 (four) times daily. Use with insulin 4 times daily. Dx E11.8 [facility] flash glucose sensor (FREESTYLE DASH 2 SENSOR) Kit 2021-02 2- 00:00: 00 Yes [id number] 1{each} 1 Each every 14 (fourteen) days. [facility] insulin aspart RAPID (NOVOLOG U-100 INSULIN ASPART) 100 unit/mL injection 2021-02 2-20 00:00: 00 Yes [id number] 20U inject 20 Units under the skin in the morning and 20 Units at noon and 20 Units in the evening. inject before meals. [facility] insulin syr/ndl U100 half melvin 0.5 mL 31 gauge x 5/16" Syrg 2021-02 2-20 00:00: 00 Yes [id number] 1{each} 1 Each 4 (four) times daily. Use with insulin 4 times daily. Dx E11.8 [facility] flash glucose sensor (FREESTYLE DASH 2 SENSOR) Kit 2021-02 2- 00:00: 00 Yes [id number] 1{each} 1 Each every 14 (fourteen) days. [facility] insulin aspart RAPID (NOVOLOG U-100 INSULIN ASPART) 100 unit/mL injection 2021-02 2- 00:00: 00 Yes [id number] 20U inject 20 Units under the skin in the morning and 20 Units at noon and 20 Units in the evening. inject before meals. [facility] insulin syr/ndl U100 half melvin 0.5 mL 31 gauge x 5/16" Syr 2021-02 2- 00:00: 00 Yes [id number] 1{each} 1 Each 4 (four) times daily. Use with insulin 4 times daily. Dx E11.8 [facility] flash glucose sensor (FREESTYLE DASH 2 SENSOR) Kit 2021-02 2 00:00: 00 Yes [id number] 1{each} 1 Each every 14 (fourteen) days. [facility] insulin aspart RAPID (NOVOLOG U-100 INSULIN ASPART) 100 unit/mL injection 2021-02 2 00:00: 00 Yes [id number] 20U inject 20 Units under the skin in the morning and 20 Units at noon and 20 Units in the evening. inject before meals. [facility] insulin syr/ndl U100 half melvin 0.5 mL 31 gauge x 5/16" Syr 2021-02 2- 00:00: 00 Yes [id number] 1{each} 1 Each 4 (four) times daily. Use with insulin 4 times daily. Dx E11.8 [facility] flash glucose sensor (FREESTYLE DASH 2 SENSOR) Kit 2021-02 2 00:00: 00 Yes [id number] 1{each} 1 Each every 14 (fourteen) days. [facility] insulin syr/ndl U100 half melvin 0.5 mL 31 gauge x 5/16" Syrg 2021-02 2-20 00:00: 00 Yes [id number] 1{each} 1 Each 4 (four) times daily. Use with insulin 4 times daily. Dx E11.8 [facility] flash glucose sensor (FREESTYLE DASH 2 SENSOR) Kit 2021-02 00:00: 00 Yes [id number] 1{each} 1 Each every 14 (fourteen) days. [facility] insulin syr/ndl U100 half melvin 0.5 mL 31 gauge x 5/16" Syrg 2021-02 2- 00:00: 00 Yes [id number] 1{each} 1 Each 4 (four) times daily. Use with insulin 4 times daily. Dx E11.8 [facility] flash glucose sensor (FREESTYLE DASH 2 SENSOR) Kit 2021-02 00:00: 00 Yes [id number] 1{each} 1 Each every 14 (fourteen) days. [facility] insulin aspart RAPID (NOVOLOG U-100 INSULIN ASPART) 100 unit/mL injection 2021-02 00:00: 00 11-25 00:00 :00 No [id number] 20U inject 20 Units under the skin in the morning and 20 Units at noon and 20 Units in the evening. inject before meals. [facility] dulaglutide (TRULICITY) 0.75 mg/0.5 mL PnIj 2021-02 00:00: 00 02-11 00:00 :00 No [id number] .75mg inject 1 Pen under the skin weekly. [facility] dulaglutide (TRULICITY) 0.75 mg/0.5 mL PnIj 2021-02 00:00: 00 02-11 00:00 :00 No [id number] .75mg inject 1 Pen under the skin weekly. [facility] dulaglutide (TRULICITY) 0.75 mg/0.5 mL PnIj 2021-02 00:00: 00 02-11 00:00 :00 No [id number] .75mg inject 1 Pen under the skin weekly. [facility] dulaglutide (TRULICITY) 0.75 mg/0.5 mL PnIj 2021-02 2 00:00: 00 02-11 00:00 :00 No [id number] .75mg inject 1 Pen under the skin weekly. [facility] naproxen 500 mg tablet 2021-02 00:00: 00 Yes 500mg Take 500 mg by mouth in the morning and 500 mg in the evening. Take with meals. [facility] nystatin 100,000 unit/gram cream 2021-02 00:00: 00 Yes 1 APPLICATIO N ON THE SKIN TWICE A DAY APPLY TO AFFECTED AREA TWICE A DAY [facility] naproxen 500 mg tablet 2021-02 00:00: 00 Yes 500mg Take 500 mg by mouth in the morning and 500 mg in the evening. Take with meals. [facility] nystatin 100,000 unit/gram cream 2021-02 00:00: 00 Yes 1 APPLICATIO N ON THE SKIN TWICE A DAY APPLY TO AFFECTED AREA TWICE A DAY [facility] naproxen 500 mg tablet 2021-02 00:00: 00 Yes 500mg Take 500 mg by mouth in the morning and 500 mg in the evening. Take with meals. [facility] nystatin 100,000 unit/gram cream 2021-02 00:00: 00 Yes 1 APPLICATIO N ON THE SKIN TWICE A DAY APPLY TO AFFECTED AREA TWICE A DAY [facility] naproxen 500 mg tablet 2021-02 00:00: 00 Yes 500mg Take 500 mg by mouth in the morning and 500 mg in the evening. Take with meals. [facility] nystatin 100,000 unit/gram cream 2021-02 00:00: 00 Yes 1 APPLICATIO N ON THE SKIN TWICE A DAY APPLY TO AFFECTED AREA TWICE A DAY [facility] naproxen 500 mg tablet 2021-02 00:00: 00 Yes 500mg Take 500 mg by mouth in the morning and 500 mg in the evening. Take with meals. [facility] nystatin 100,000 unit/gram cream 2021-02 00:00: 00 Yes 1 APPLICATIO N ON THE SKIN TWICE A DAY APPLY TO AFFECTED AREA TWICE A DAY [facility] naproxen 500 mg tablet 2021-02 00:00: 00 Yes 500mg Take 500 mg by mouth in the morning and 500 mg in the evening. Take with meals. [facility] nystatin 100,000 unit/gram cream 2021-02 00:00: 00 Yes 1 APPLICATIO N ON THE SKIN TWICE A DAY APPLY TO AFFECTED [facility]A [facility]ICE [facility] 2021-02 00:00: 00 Yes 500mg Take 500 mg by mouth in the morning and 500 mg in the evening. Take with meals. [facility] nystatin 100,000 unit/gram cream 2021-02 00:00: 00 Yes 1 APPLICATIO N ON THE SKIN TWICE A DAY APPLY TO AFFECTED AREA TWICE A DAY [facility] mg tablet 2021-02 00:00: 00 Yes 500mg Take 500 mg by mouth in the morning and 500 mg in the evening. Take with meals. [facility] nystatin 100,000 unit/gram cream 2021-02 00:00: 00 Yes 1 APPLICATIO N ON THE SKIN TWICE A DAY APPLY TO AFFECTED AREA TWICE A DAY [facility] naproxen 500 mg tablet 2021-02 00:00: 00 Yes 500mg Take 500 mg by mouth in the morning and 500 mg in the evening. Take with meals. [facility] nystatin 100,000 unit/gram cream 2021-02 00:00: 00 Yes 1 APPLICATIO N ON THE SKIN TWICE A DAY APPLY TO AFFECTED AREA TWICE A DAY [facility] naproxen 500 mg tablet 2021-02 00:00: 00 Yes 500mg Take 500 mg by mouth in the morning and 500 mg in the evening. Take with meals. [facility] nystatin 100,000 unit/gram cream 2021-02 00:00: 00 Yes 1 APPLICATIO N ON THE SKIN TWICE A DAY APPLY TO AFFECTED AREA TWICE A DAY [facility] mg tablet 2021-02 00:00: 00 Yes 500mg Take 500 mg by mouth in the morning and 500 mg in the evening. Take with meals. [facility] nystatin 100,000 unit/gram cream 2021-02 00:00: 00 Yes 1 APPLICATIO N ON THE SKIN TWICE A DAY APPLY TO AFFECTED AREA TWICE A DAY [facility] naproxen 500 mg tablet 2021-02 00:00: 00 Yes 500mg Take 500 mg by mouth in the morning and 500 mg in the evening. Take with meals. [facility] nystatin 100,000 unit/gram cream 2021-02 00:00: 00 Yes 1 APPLICATIO N ON THE SKIN TWICE A DAY APPLY TO AFFECTED AREA TWICE A DAY [facility] naproxen 500 mg tablet 2021-02 00:00: 00 Yes 500mg Take 500 mg by mouth in the morning and 500 mg in the evening. Take with meals. [facility] nystatin 100,000 unit/gram cream 2021-02 00:00: 00 Yes 1 APPLICATIO N ON THE SKIN TWICE A DAY APPLY TO AFFECTED AREA TWICE A DAY [facility] nap[facility]en [facility] mg tablet 2021-02 00:00: 00 Yes 500mg Take 500 mg by mouth in the morning and 500 mg in the evening. Take with meals. [facility] nystatin 100,000 unit/gram cream 2021-02 00:00: 00 Yes 1 APPLICATIO N ON THE SKIN TWICE A DAY APPLY TO AFFECTED AREA TWICE A DAY [facility] mg tablet 2021-02 00:00: 00 Yes 500mg Take 500 mg by mouth in the morning and 500 mg in the evening. Take with meals. [facility] nystatin 100,000 unit/gram cream 2021-02 00:00: 00 Yes 1 APPLICATIO N ON THE SKIN TWICE A DAY APPLY TO AFFECTED AREA TWICE A DAY [facility] nystatin 100,000 unit/gram cream 2021-02 00:00: 00 Yes 1 APPLICATIO N ON THE SKIN TWICE A DAY APPLY TO AFFECTED AREA TWICE A DAY [facility] nystatin 100,000 unit/gram cream 2021-02 00:00: 00 Yes 1 APPLICATIO N ON THE SKIN TWICE A DAY APPLY TO AFFECTED AREA TWICE A DAY [facility] nystatin 100,000 unit/gram cream 2021-02 00:00: 00 Yes 1 APPLICATIO N ON THE SKIN TWICE A DAY APPLY TO AFFECTED AREA TWICE A DAY [facility] nystatin 100,000 unit/gram cream 2021-02 00:00: 00 Yes 1 APPLICATIO N ON THE SKIN TWICE A DAY APPLY TO AFFECTED AREA TWICE A DAY [facility] nystatin 100,000 unit/gram cream 2021-02 00:00: 00 Yes 1 APPLICATIO N ON THE SKIN TWICE A DAY APPLY TO AFFECTED AREA TWICE A DAY [facility] nystatin 100,000 unit/gram cream 2021-02 00:00: 00 Yes 1 APPLICATIO N ON THE SKIN TWICE A DAY APPLY TO AFFECTED AREA TWICE A DAY [facility] nystatin 100,000 unit/gram cream 2021-02 00:00: 00 Yes 1 APPLICATIO N ON THE SKIN TWICE A DAY APPLY TO AFFECTED AREA TWICE A DAY [facility] nystatin 100,000 unit/gram cream 2021-02 00:00: 00 Yes 1 APPLICATIO N ON THE SKIN TWICE A DAY APPLY TO AFFECTED AREA TWICE A DAY [facility] nystatin 100,000 unit/gram cream 2021-02 00:00: 00 Yes 1 APPLICATIO N ON THE SKIN TWICE A DAY APPLY TO AFFECTED AREA TWICE A DAY [facility] nystatin 100,000 unit/gram cream 2021-02 00:00: 00 Yes 1 APPLICATIO N ON THE SKIN TWICE A DAY APPLY TO AFFECTED AREA TWICE A DAY [facility] nystatin 100,000 unit/gram cream 2021-02 00:00: 00 Yes 1 APPLICATIO N ON THE SKIN TWICE A DAY APPLY TO AFFECTED AREA TWICE A DAY [facility] nystatin 100,000 unit/gram cream 2021-02 00:00: 00 Yes 1 APPLICATIO N ON THE SKIN TWICE A DAY APPLY TO AFFECTED AREA TWICE A DAY [facility] nystatin 100,000 unit/gram cream 2021-02 00:00: 00 Yes 1 APPLICATIO N ON THE SKIN TWICE A DAY APPLY TO AFFECTED AREA TWICE A DAY [facility] nystatin 100,000 unit/gram cream 2021-02 00:00: 00 Yes 1 APPLICATIO N ON THE SKIN TWICE A DAY APPLY TO AFFECTED AREA TWICE A DAY [facility] nystatin 100,000 unit/gram cream 2021-02 00:00: 00 Yes 1 APPLICATIO N ON THE SKIN TWICE A DAY APPLY TO AFFECTED AREA TWICE A DAY [facility] nystatin 100,000 unit/gram cream 2021-02 00:00: 00 Yes 1 APPLICATIO N ON THE SKIN TWICE A DAY APPLY TO AFFECTED AREA TWICE A DAY [facility] nystatin 100,000 unit/gram cream 2021-02 00:00: 00 Yes 1 APPLICATIO N ON THE SKIN TWICE A DAY APPLY TO AFFECTED AREA TWICE A DAY [facility] nystatin 100,000 unit/gram cream 2021-02 00:00: 00 Yes 1 APPLICATIO N ON THE SKIN TWICE A DAY APPLY TO AFFECTED AREA TWICE A DAY [facility] nystatin 100,000 unit/gram cream 2021-02 00:00: 00 Yes 1 APPLICATIO N ON THE SKIN TWICE A DAY APPLY TO AFFECTED AREA TWICE A DAY [facility] nystatin 100,000 unit/gram cream 2021-02 00:00: 00 Yes 1 APPLICATIO N ON THE SKIN TWICE A DAY APPLY TO AFFECTED AREA TWICE A DAY [facility] nystatin 100,000 unit/gram cream 2021-02 00:00: 00 Yes 1 APPLICATIO N ON THE SKIN TWICE A DAY APPLY TO AFFECTED AREA TWICE A DAY [facility] nystatin 100,000 unit/gram cream 2021-02 00:00: 00 Yes 1 APPLICATIO N ON THE SKIN TWICE A DAY APPLY TO AFFECTED AREA TWICE A DAY [facility] nystatin 100,000 unit/gram cream 2021-02 00:00: 00 Yes 1 APPLICATIO N ON THE SKIN TWICE A DAY APPLY TO AFFECTED AREA TWICE A DAY [facility] nystatin 100,000 unit/gram cream 2021-02 00:00: 00 Yes 1 APPLICATIO N ON THE SKIN TWICE A DAY APPLY TO AFFECTED AREA TWICE A DAY [facility] nystatin 100,000 unit/gram cream 2021-02 00:00: 00 Yes 1 APPLICATIO N ON THE SKIN TWICE A DAY APPLY TO AFFECTED AREA TWICE A DAY [facility] nystatin 100,000 unit/gram cream 2021-02 00:00: 00 Yes 1 APPLICATIO N ON THE SKIN TWICE A DAY APPLY TO AFFECTED AREA TWICE A DAY [facility] nystatin 100,000 unit/gram cream 2021-02 00:00: 00 Yes 1 APPLICATIO N ON THE SKIN TWICE A DAY APPLY TO AFFECTED AREA TWICE A DAY [facility] nystatin 100,000 unit/gram cream 2021-02 00:00: 00 Yes 1 APPLICATIO N ON THE SKIN TWICE A DAY APPLY TO AFFECTED AREA TWICE A DAY [facility] nystatin 100,000 unit/gram cream 2021-02 00:00: 00 Yes 1 APPLICATIO N ON THE SKIN TWICE A DAY APPLY TO AFFECTED AREA TWICE A DAY [facility] nystatin 100,000 unit/gram cream 2021-02 00:00: 00 Yes 1 APPLICATIO N ON THE SKIN TWICE A DAY APPLY TO AFFECTED AREA TWICE A DAY [facility] nystatin 100,000 unit/gram cream 2021-02 00:00: 00 Yes 1 APPLICATIO N ON THE SKIN TWICE A DAY APPLY TO AFFECTED AREA TWICE A DAY [facility] nystatin 100,000 unit/gram cream 2021-02 00:00: 00 Yes 1 APPLICATIO N ON THE SKIN TWICE A DAY APPLY TO AFFECTED AREA TWICE A DAY [facility] nystatin 100,000 unit/gram cream 2021-02 00:00: 00 Yes 1 APPLICATIO N ON THE SKIN TWICE A DAY APPLY TO AFFECTED AREA TWICE A DAY [facility] nystatin 100,000 unit/gram cream 2021-02 00:00: 00 Yes 1 APPLICATIO N ON THE SKIN TWICE A DAY APPLY TO AFFECTED AREA TWICE A DAY [facility] nystatin 100,000 unit/gram cream 2021-02 00:00: 00 Yes 1 APPLICATIO N ON THE SKIN TWICE A DAY APPLY TO AFFECTED AREA TWICE A DAY [facility] nystatin 100,000 unit/gram cream 2021-02 00:00: 00 Yes 1 APPLICATIO N ON THE SKIN TWICE A DAY APPLY TO AFFECTED AREA TWICE A DAY [facility] nystatin 100,000 unit/gram cream 2021-02 00:00: 00 Yes 1 APPLICATIO N ON THE SKIN TWICE A DAY APPLY TO AFFECTED AREA TWICE A DAY [facility] nystatin 100,000 unit/gram cream 2021-02 00:00: 00 Yes 1 APPLICATIO N ON THE SKIN TWICE A DAY APPLY TO AFFECTED AREA TWICE A DAY [facility] nystatin 100,000 unit/gram cream 2021-02 00:00: 00 Yes 1 APPLICATIO N ON THE SKIN TWICE A DAY APPLY TO AFFECTED AREA TWICE A DAY [facility] nystatin 100,000 unit/gram cream 2021-02 00:00: 00 Yes 1 APPLICATIO N ON THE SKIN TWICE A DAY APPLY TO AFFECTED AREA TWICE A DAY [facility] nystatin 100,000 unit/gram cream 2021-02 00:00: 00 Yes 1 APPLICATIO N ON THE SKIN TWICE A DAY APPLY TO AFFECTED AREA TWICE A DAY [facility] nystatin 100,000 unit/gram cream 2021-02 00:00: 00 Yes 1 APPLICATIO N ON THE SKIN TWICE A DAY APPLY TO AFFECTED AREA TWICE A DAY [facility] nystatin 100,000 unit/gram cream 2021-02 00:00: 00 Yes 1 APPLICATIO N ON THE SKIN TWICE A DAY APPLY TO AFFECTED AREA TWICE A DAY [facility] nystatin 100,000 unit/gram cream 2021-02 00:00: 00 Yes 1 APPLICATIO N ON THE SKIN TWICE A DAY APPLY TO AFFECTED AREA TWICE A DAY [facility] nystatin 100,000 unit/gram cream 2021-02 00:00: 00 Yes 1 APPLICATIO N ON THE SKIN TWICE A DAY APPLY TO AFFECTED AREA TWICE A DAY [facility] nystatin 100,000 unit/gram cream 2021-02 00:00: 00 Yes 1 APPLICATIO N ON THE SKIN TWICE A DAY APPLY TO AFFECTED AREA TWICE A DAY [facility] nystatin 100,000 unit/gram cream 2021-02 00:00: 00 Yes 1 APPLICATIO N ON THE SKIN TWICE A DAY APPLY TO AFFECTED AREA TWICE A DAY [facility] nystatin 100,000 unit/gram cream 2021-02 00:00: 00 Yes 1 APPLICATIO N ON THE SKIN TWICE A DAY APPLY TO AFFECTED AREA TWICE A DAY [facility] nystatin 100,000 unit/gram cream 2021-02 00:00: 00 Yes 1 APPLICATIO N ON THE SKIN TWICE A DAY APPLY TO AFFECTED AREA TWICE A DAY [facility] nystatin 100,000 unit/gram cream 2021-02 00:00: 00 Yes 1 APPLICATIO N ON THE SKIN TWICE A DAY APPLY TO AFFECTED AREA TWICE A DAY [facility] nystatin 100,000 unit/gram cream 2021-02 00:00: 00 Yes 1 APPLICATIO N ON THE SKIN TWICE A DAY APPLY TO AFFECTED AREA TWICE A DAY [facility] nystatin 100,000 unit/gram cream 2021-02 00:00: 00 Yes 1 APPLICATIO N ON THE SKIN TWICE A DAY APPLY TO AFFECTED AREA TWICE A DAY [facility] nystatin 100,000 unit/gram cream 2021-02 00:00: 00 Yes 1 APPLICATIO N ON THE SKIN TWICE A DAY APPLY TO AFFECTED AREA TWICE A DAY [facility] nystatin 100,000 unit/gram cream 2021-02 00:00: 00 Yes 1 APPLICATIO N ON THE SKIN TWICE A DAY APPLY TO AFFECTED AREA TWICE A DAY [facility] nystatin 100,000 unit/gram cream 2021-02 00:00: 00 Yes 1 APPLICATIO N ON THE SKIN TWICE A DAY APPLY TO AFFECTED AREA TWICE A DAY [facility] nystatin 100,000 unit/gram cream 2021-02 00:00: 00 Yes 1 APPLICATIO N ON THE SKIN TWICE A DAY APPLY TO AFFECTED AREA TWICE A DAY [facility] naproxen 500 mg tablet 2021-02 00:00: 00 05-23 00:00 :00 No 500mg Take 500 mg by mouth in the morning and 500 mg in the evening. Take with meals. [facility] naproxen 500 mg tablet 2021-02 00:00: 00 05-23 00:00 :00 No 500mg Take 500 mg by mouth in the morning and 500 mg in the evening. Take with meals. [facility] bromphenira mine-pseudo ephedrine-D M 2-30-10 mg/5 mL syrup 10-10 00:00: 00 10-18 04:59 :00 No [id number] 10mL Take 10 mL by mouth 4 (four) times daily as needed for Congestion /Allergies for up to 7 days. [facility] clindamycin 300 mg capsule 2021-0 10-08 00:00: 00 Yes [facility] ibuprofen 800 mg tablet 2021-0 8 00:00: 00 Yes [facility] clindamycin 300 mg capsule 2021-0 8 00:00: 00 Yes [facility] ibuprofen 800 mg tablet 2021-0 8 00:00: 00 Yes [facility] clindamycin 300 mg capsule 2021-0 8-30 00:00: 00 Yes [facility] ibuprofen 800 mg tablet 2021-0 830 00:00: 00 Yes [facility] clindamycin 300 mg capsule 2-0 830 00:00: 00 Yes [facility] ibuprofen 800 mg tablet 2021-0 830 00:00: 00 Yes [facility] clindamycin 300 mg capsule 2-0 830 00:00: 00 Yes [facility] ibuprofen 800 mg tablet 2-0 8-30 00:00: 00 Yes [facility] clindamycin 300 mg capsule 2022-0 8- 00:00: 00 Yes [facility] ibuprofen 800 mg tablet 2-0 8- 00:00: 00 Yes [facility] clindamycin 300 mg capsule 2-0 8 00:00: 00 Yes [facility] ibuprofen 800 mg tablet 2-0 8 00:00: 00 Yes [facility] clindamycin 300 mg capsule 2-0 8- 00:00: 00 Yes [facility] ibuprofen 800 mg tablet 2-0 8- 00:00: 00 Yes [facility] clindamycin 300 mg capsule 2-0 8 00:00: 00 Yes [facility] ibuprofen 800 mg tablet 2-0 8 00:00: 00 Yes [facility] clindamycin 300 mg capsule 2-0 8 00:00: 00 Yes [facility] ibuprofen 800 mg tablet 2-0 8 00:00: 00 Yes [facility] clindamycin 300 mg capsule 2-0 8 00:00: 00 Yes [facility] ibuprofen 800 mg tablet 2-0 8 00:00: 00 Yes [facility] clindamycin 300 mg capsule 2-0 8 00:00: 00 Yes [facility] ibuprofen 800 mg tablet 2-0 8 00:00: 00 Yes [facility] clindamycin 300 mg capsule 2-0 8- 00:00: 00 Yes [facility] ibuprofen 800 mg tablet 2-0 8 00:00: 00 Yes [facility] clindamycin 300 mg capsule 2-0 8 00:00: 00 Yes [facility] ibuprofen 800 mg tablet 2-0 8 00:00: 00 Yes [facility] clindamycin 300 mg capsule 2-0 8 00:00: 00 Yes [facility] ibuprofen 800 mg tablet 2-0 8- 00:00: 00 Yes [facility] clindamycin 300 mg capsule 2-0 8- 00:00: 00 Yes [facility] ibuprofen 800 mg tablet 2-0 8- 00:00: 00 Yes [facility] clindamycin 300 mg capsule 2-0 8 00:00: 00 Yes [facility] ibuprofen 800 mg tablet 2-0 8 00:00: 00 Yes [facility] clindamycin 300 mg capsule 2-0 8- 00:00: 00 Yes [facility] ibuprofen 800 mg tablet 2-0 8 00:00: 00 Yes [facility] clindamycin 300 mg capsule 2-0 8 00:00: 00 Yes [facility] ibuprofen 800 mg tablet 2-0 8 00:00: 00 Yes [facility] clindamycin 300 mg capsule 2-0 8 00:00: 00 Yes [facility] ibuprofen 800 mg tablet 2-0 8 00:00: 00 Yes [facility] clindamycin 300 mg capsule 2-0 8 00:00: 00 Yes [facility] ibuprofen 800 mg tablet 2-0 8 00:00: 00 Yes [facility] clindamycin 300 mg capsule 2-0 8 00:00: 00 Yes [facility] ibuprofen 800 mg tablet 2-0 8 00:00: 00 Yes [facility] clindamycin 300 mg capsule 2-0 8 00:00: 00 Yes [facility] ibuprofen 800 mg tablet 2-0 8 00:00: 00 Yes [facility] clindamycin 300 mg capsule 2-0 8 00:00: 00 Yes [facility] clindamycin 300 mg capsule 2-0 8 00:00: 00 Yes [facility] clindamycin 300 mg capsule 2-0 8 00:00: 00 Yes [facility] clindamycin 300 mg capsule 2-0 8-30 00:00: 00 Yes [facility] clindamycin 300 mg capsule 2-0 8- 00:00: 00 Yes [facility] clindamycin 300 mg capsule 2-0 8-30 00:00: 00 Yes [facility] clindamycin 300 mg capsule 2-0 8- 00:00: 00 Yes [facility] clindamycin 300 mg capsule 2-0 8- 00:00: 00 Yes [facility] clindamycin 300 mg capsule 2-0 8- 00:00: 00 Yes [facility] clindamycin 300 mg capsule 2-0 8 00:00: 00 Yes [facility] clindamycin 300 mg capsule 2-0 8 00:00: 00 Yes [facility] clindamycin 300 mg capsule 2-0 8 00:00: 00 Yes [facility] clindamycin 300 mg capsule 2-0 8- 00:00: 00 Yes [facility] clindamycin 300 mg capsule 2-0 8 00:00: 00 Yes [facility] clindamycin 300 mg capsule 2-0 8 00:00: 00 Yes [facility] clindamycin 300 mg capsule 2-0 8 00:00: 00 Yes [facility] clindamycin 300 mg capsule 2-0 8 00:00: 00 Yes [facility] clindamycin 300 mg capsule 2-0 8-30 00:00: 00 Yes [facility] clindamycin 300 mg capsule 2-0 8-30 00:00: 00 Yes [facility] clindamycin 300 mg capsule 2-0 8-30 00:00: 00 Yes [facility] clindamycin 300 mg capsule 2-0 8-30 00:00: 00 Yes [facility] clindamycin 300 mg capsule 2-0 8-30 00:00: 00 Yes [facility] clindamycin 300 mg capsule 2-0 8-30 00:00: 00 Yes [facility] clindamycin 300 mg capsule 2022-0 8-30 00:00: 00 05-23 00:00 :00 No [facility] clindamycin 300 mg capsule 30 00:00: 00 05-23 00:00 :00 No [facility] clindamycin 300 mg capsule 0 830 00:00: 00 05-23 00:00 :00 No [facility] ibuprofen 800 mg tablet 10-08 00:00: 00 02-19 00:00 :00 No [facility] ibuprofen 800 mg tablet 2021-10-08 00:00: 00 02-19 00:00 :00 No [facility] ibuprofen 800 mg tablet 10-08 00:00: 00 02-19 00:00 :00 No [facility] ibuprofen 800 mg tablet 10-08 00:00: 00 02-19 00:00 :00 No [facility] blood sugar diagnostic (TRUE METRIX GLUCOSE TEST STRIP) strip 07-04 00:00: 00 Yes Use to check blood sugar 3X daily. DX:E11.8 [facility] Blood-Gluco se Meter (TRUE METRIX GLUCOSE METER) Kit 07-04 00:00: 00 Yes Use to check blood sugar 3X daily. DX:E11.8 [facility] blood sugar diagnostic (TRUE METRIX GLUCOSE TEST STRIP) strip 07-04 00:00: 00 Yes Use to check blood sugar 3X daily. DX:E11.8 [facility] Blood-Gluco se Meter (TRUE METRIX GLUCOSE METER) Kit 07-04 00:00: 00 Yes Use to check blood sugar 3X daily. DX:E11.8 [facility] blood sugar diagnostic (TRUE METRIX GLUCOSE TEST STRIP) strip 07-04 00:00: 00 Yes Use to check blood sugar 3X daily. DX:E11.8 [facility] Blood-Gluco se Meter (TRUE METRIX GLUCOSE METER) Kit 07-04 00:00: 00 Yes Use to check blood sugar 3X daily. DX:E11.8 [facility] blood sugar diagnostic (TRUE METRIX GLUCOSE TEST STRIP) strip 07-04 00:00: 00 Yes Use to check blood sugar 3X daily. DX:E11.8 [facility] Blood-Gluco se Meter (TRUE METRIX GLUCOSE METER) Kit 07-04 00:00: 00 Yes Use to check blood sugar 3X daily. DX:E11.8 [facility] blood sugar diagnostic (TRUE METRIX GLUCOSE TEST STRIP) strip 07-04 00:00: 00 Yes Use to check blood sugar 3X daily. DX:E11.8 [facility] Blood-Gluco se Meter (TRUE METRIX GLUCOSE METER) Kit 07-04 00:00: 00 Yes Use to check blood sugar 3X daily. DX:E11.8 [facility] blood sugar diagnostic (TRUE METRIX GLUCOSE TEST STRIP) strip 07-04 00:00: 00 Yes Use to check blood sugar 3X daily. DX:E11.8 [facility] Blood-Gluco se Meter (TRUE METRIX GLUCOSE METER) Kit 07-04 00:00: 00 Yes Use to check blood sugar 3X daily. DX:E11.8 [facility] blood sugar diagnostic (TRUE METRIX GLUCOSE TEST STRIP) strip 07-04 00:00: 00 Yes Use to check blood sugar 3X daily. DX:E11.8 [facility] Blood-Gluco se Meter (TRUE METRIX GLUCOSE METER) Kit 07-04 00:00: 00 Yes Use to check blood sugar 3X daily. DX:E11.8 [facility] blood sugar diagnostic (TRUE METRIX GLUCOSE TEST STRIP) strip 07-04 00:00: 00 Yes Use to check blood sugar 3X daily. DX:E11.8 [facility] Blood-Gluco se Meter (TRUE METRIX GLUCOSE METER) Kit 07-04 00:00: 00 Yes Use to check blood sugar 3X daily. DX:E11.8 [facility] blood sugar diagnostic (TRUE METRIX GLUCOSE TEST STRIP) strip 07-04 00:00: 00 Yes Use to check blood sugar 3X daily. DX:E11.8 [facility] Blood-Gluco se Meter (TRUE METRIX GLUCOSE METER) Kit 07-04 00:00: 00 Yes Use to check blood sugar 3X daily. DX:E11.8 [facility] blood sugar diagnostic (TRUE METRIX GLUCOSE TEST STRIP) strip 07-04 00:00: 00 Yes Use to check blood sugar 3X daily. DX:E11.8 [facility] Blood-Gluco se Meter (TRUE METRIX GLUCOSE METER) Kit 07-04 00:00: 00 Yes Use to check blood sugar 3X daily. DX:E11.8 [facility] blood sugar diagnostic (TRUE METRIX GLUCOSE TEST STRIP) strip 07-04 00:00: 00 Yes Use to check blood sugar 3X daily. DX:E11.8 [facility] Blood-Gluco se Meter (TRUE METRIX GLUCOSE METER) Kit 07-04 00:00: 00 Yes Use to check blood sugar 3X daily. DX:E11.8 [facility] blood sugar diagnostic (TRUE METRIX GLUCOSE TEST STRIP) strip 07-04 00:00: 00 Yes Use to check blood sugar 3X daily. DX:E11.8 [facility] Blood-Gluco se Meter (TRUE METRIX GLUCOSE METER) Kit 07-04 00:00: 00 Yes Use to check blood sugar 3X daily. DX:E11.8 [facility] blood sugar diagnostic (TRUE METRIX GLUCOSE TEST STRIP) strip 07-04 00:00: 00 Yes Use to check blood sugar 3X daily. DX:E11.8 [facility] Blood-Gluco se Meter (TRUE METRIX GLUCOSE METER) Kit 07-04 00:00: 00 Yes Use to check blood sugar 3X daily. DX:E11.8 [facility] blood sugar diagnostic (TRUE METRIX GLUCOSE TEST STRIP) strip 07-04 00:00: 00 Yes Use to check blood sugar 3X daily. DX:E11.8 [facility] Blood-Gluco se Meter (TRUE METRIX GLUCOSE METER) Kit 07-04 00:00: 00 Yes Use to check blood sugar 3X daily. DX:E11.8 [facility] blood sugar diagnostic (TRUE METRIX GLUCOSE TEST STRIP) strip 07-04 00:00: 00 Yes Use to check blood sugar 3X daily. DX:E11.8 [facility] Blood-Gluco se Meter (TRUE METRIX GLUCOSE METER) Kit 07-04 00:00: 00 Yes Use to check blood sugar 3X daily. DX:E11.8 [facility] blood sugar diagnostic (TRUE METRIX GLUCOSE TEST STRIP) strip 07-04 00:00: 00 Yes Use to check blood sugar 3X daily. DX:E11.8 [facility] Blood-Gluco se Meter (TRUE METRIX GLUCOSE METER) Kit 07-04 00:00: 00 Yes Use to check blood sugar 3X daily. DX:E11.8 [facility] blood sugar diagnostic (TRUE METRIX GLUCOSE TEST STRIP) strip 07-04 00:00: 00 Yes Use to check blood sugar 3X daily. DX:E11.8 [facility] Blood-Gluco se Meter (TRUE METRIX GLUCOSE METER) Kit 07-04 00:00: 00 Yes Use to check blood sugar 3X daily. DX:E11.8 [facility] blood sugar diagnostic (TRUE METRIX GLUCOSE TEST STRIP) strip 07-04 00:00: 00 Yes Use to check blood sugar 3X daily. DX:E11.8 [facility] Blood-Gluco se Meter (TRUE METRIX GLUCOSE METER) Kit 07-04 00:00: 00 Yes Use to check blood sugar 3X daily. DX:E11.8 [facility] blood sugar diagnostic (TRUE METRIX GLUCOSE TEST STRIP) strip 07-04 00:00: 00 Yes Use to check blood sugar 3X daily. DX:E11.8 [facility] Blood-Gluco se Meter (TRUE METRIX GLUCOSE METER) Kit 07-04 00:00: 00 Yes Use to check blood sugar 3X daily. DX:E11.8 [facility] blood sugar diagnostic (TRUE METRIX GLUCOSE TEST STRIP) strip 07-04 00:00: 00 Yes Use to check blood sugar 3X daily. DX:E11.8 [facility] Blood-Gluco se Meter (TRUE METRIX GLUCOSE METER) Kit 07-04 00:00: 00 Yes Use to check blood sugar 3X daily. DX:E11.8 [facility] blood sugar diagnostic (TRUE METRIX GLUCOSE TEST STRIP) strip 07-04 00:00: 00 Yes Use to check blood sugar 3X daily. DX:E11.8 [facility] Blood-Gluco se Meter (TRUE METRIX GLUCOSE METER) Kit 07-04 00:00: 00 Yes Use to check blood sugar 3X daily. DX:E11.8 [facility] blood sugar diagnostic (TRUE METRIX GLUCOSE TEST STRIP) strip 07-04 00:00: 00 Yes Use to check blood sugar 3X daily. DX:E11.8 [facility] Blood-Gluco se Meter (TRUE METRIX GLUCOSE METER) Kit 07-04 00:00: 00 Yes Use to check blood sugar 3X daily. DX:E11.8 [facility] blood sugar diagnostic (TRUE METRIX GLUCOSE TEST STRIP) strip 07-04 00:00: 00 Yes Use to check blood sugar 3X daily. DX:E11.8 [facility] Blood-Gluco se Meter (TRUE METRIX GLUCOSE METER) Kit 07-04 00:00: 00 Yes Use to check blood sugar 3X daily. DX:E11.8 [facility] blood sugar diagnostic (TRUE METRIX GLUCOSE TEST STRIP) strip 07-04 00:00: 00 Yes Use to check blood sugar 3X daily. DX:E11.8 [facility] Blood-Gluco se Meter (TRUE METRIX GLUCOSE METER) Kit 07-04 00:00: 00 Yes Use to check blood sugar 3X daily. DX:E11.8 [facility] blood sugar diagnostic (TRUE METRIX GLUCOSE TEST STRIP) strip 07-04 00:00: 00 Yes Use to check blood sugar 3X daily. DX:E11.8 [facility] Blood-Gluco se Meter (TRUE METRIX GLUCOSE METER) Kit 07-04 00:00: 00 Yes Use to check blood sugar 3X daily. DX:E11.8 [facility] blood sugar diagnostic (TRUE METRIX GLUCOSE TEST STRIP) strip 07-04 00:00: 00 Yes Use to check blood sugar 3X daily. DX:E11.8 [facility] Blood-Gluco se Meter (TRUE METRIX GLUCOSE METER) Kit 07-04 00:00: 00 Yes Use to check blood sugar 3X daily. DX:E11.8 [facility] blood sugar diagnostic (TRUE METRIX GLUCOSE TEST STRIP) strip 07-04 00:00: 00 Yes Use to check blood sugar 3X daily. DX:E11.8 [facility] Blood-Gluco se Meter (TRUE METRIX GLUCOSE METER) Kit 07-04 00:00: 00 Yes Use to check blood sugar 3X daily. DX:E11.8 [facility] blood sugar diagnostic (TRUE METRIX GLUCOSE TEST STRIP) strip 07-04 00:00: 00 Yes Use to check blood sugar 3X daily. DX:E11.8 [facility] Blood-Gluco se Meter (TRUE METRIX GLUCOSE METER) Kit 07-04 00:00: 00 Yes Use to check blood sugar 3X daily. DX:E11.8 [facility] blood sugar diagnostic (TRUE METRIX GLUCOSE TEST STRIP) strip 07-04 00:00: 00 Yes Use to check blood sugar 3X daily. DX:E11.8 [facility] Blood-Gluco se Meter (TRUE METRIX GLUCOSE METER) Kit 07-04 00:00: 00 Yes Use to check blood sugar 3X daily. DX:E11.8 [facility] blood sugar diagnostic (TRUE METRIX GLUCOSE TEST STRIP) strip 07-04 00:00: 00 Yes Use to check blood sugar 3X daily. DX:E11.8 [facility] Blood-Gluco se Meter (TRUE METRIX GLUCOSE METER) Kit 07-04 00:00: 00 Yes Use to check blood sugar 3X daily. DX:E11.8 [facility] blood sugar diagnostic (TRUE METRIX GLUCOSE TEST STRIP) strip 07-04 00:00: 00 Yes Use to check blood sugar 3X daily. DX:E11.8 [facility] Blood-Gluco se Meter (TRUE METRIX GLUCOSE METER) Kit 07-04 00:00: 00 Yes Use to check blood sugar 3X daily. DX:E11.8 [facility] blood sugar diagnostic (TRUE METRIX GLUCOSE TEST STRIP) strip 07-04 00:00: 00 Yes Use to check blood sugar 3X daily. DX:E11.8 [facility] Blood-Gluco se Meter (TRUE METRIX GLUCOSE METER) Kit 07-04 00:00: 00 Yes Use to check blood sugar 3X daily. DX:E11.8 [facility] blood sugar diagnostic (TRUE METRIX GLUCOSE TEST STRIP) strip 07-04 00:00: 00 Yes Use to check blood sugar 3X daily. DX:E11.8 [facility] Blood-Gluco se Meter (TRUE METRIX GLUCOSE METER) Kit 07-04 00:00: 00 Yes Use to check blood sugar 3X daily. DX:E11.8 [facility] blood sugar diagnostic (TRUE METRIX GLUCOSE TEST STRIP) strip 07-04 00:00: 00 Yes Use to check blood sugar 3X daily. DX:E11.8 [facility] Blood-Gluco se Meter (TRUE METRIX GLUCOSE METER) Kit 07-04 00:00: 00 Yes Use to check blood sugar 3X daily. DX:E11.8 [facility] blood sugar diagnostic (TRUE METRIX GLUCOSE TEST STRIP) strip 07-04 00:00: 00 Yes Use to check blood sugar 3X daily. DX:E11.8 [facility] Blood-Gluco se Meter (TRUE METRIX GLUCOSE METER) Kit 07-04 00:00: 00 Yes Use to check blood sugar 3X daily. DX:E11.8 [facility] blood sugar diagnostic (TRUE METRIX GLUCOSE TEST STRIP) strip 07-04 00:00: 00 Yes Use to check blood sugar 3X daily. DX:E11.8 [facility] Blood-Gluco se Meter (TRUE METRIX GLUCOSE METER) Kit 07-04 00:00: 00 Yes Use to check blood sugar 3X daily. DX:E11.8 [facility] blood sugar diagnostic (TRUE METRIX GLUCOSE TEST STRIP) strip 07-04 00:00: 00 Yes Use to check blood sugar 3X daily. DX:E11.8 [facility] Blood-Gluco se Meter (TRUE METRIX GLUCOSE METER) Kit 07-04 00:00: 00 Yes Use to check blood sugar 3X daily. DX:E11.8 [facility] blood sugar diagnostic (TRUE METRIX GLUCOSE TEST STRIP) strip 07-04 00:00: 00 Yes Use to check blood sugar 3X daily. DX:E11.8 [facility] Blood-Gluco se Meter (TRUE METRIX GLUCOSE METER) Kit 07-04 00:00: 00 Yes Use to check blood sugar 3X daily. DX:E11.8 [facility] blood sugar diagnostic (TRUE METRIX GLUCOSE TEST STRIP) strip 07-04 00:00: 00 Yes Use to check blood sugar 3X daily. DX:E11.8 [facility] Blood-Gluco se Meter (TRUE METRIX GLUCOSE METER) Kit 07-04 00:00: 00 Yes Use to check blood sugar 3X daily. DX:E11.8 [facility] blood sugar diagnostic (TRUE METRIX GLUCOSE TEST STRIP) strip 07-04 00:00: 00 Yes Use to check blood sugar 3X daily. DX:E11.8 [facility] Blood-Gluco se Meter (TRUE METRIX GLUCOSE METER) Kit 07-04 00:00: 00 Yes Use to check blood sugar 3X daily. DX:E11.8 [facility] blood sugar diagnostic (TRUE METRIX GLUCOSE TEST STRIP) strip 07-04 00:00: 00 Yes Use to check blood sugar 3X daily. DX:E11.8 [facility] Blood-Gluco se Meter (TRUE METRIX GLUCOSE METER) Kit 07-04 00:00: 00 Yes Use to check blood sugar 3X daily. DX:E11.8 [facility] blood sugar diagnostic (TRUE METRIX GLUCOSE TEST STRIP) strip 07-04 00:00: 00 Yes Use to check blood sugar 3X daily. DX:E11.8 [facility] Blood-Gluco se Meter (TRUE METRIX GLUCOSE METER) Kit 07-04 00:00: 00 Yes Use to check blood sugar 3X daily. DX:E11.8 [facility] blood sugar diagnostic (TRUE METRIX GLUCOSE TEST STRIP) strip 07-04 00:00: 00 Yes Use to check blood sugar 3X daily. DX:E11.8 [facility] Blood-Gluco se Meter (TRUE METRIX GLUCOSE METER) Kit 07-04 00:00: 00 Yes Use to check blood sugar 3X daily. DX:E11.8 [facility] blood sugar diagnostic (TRUE METRIX GLUCOSE TEST STRIP) strip 07-04 00:00: 00 Yes Use to check blood sugar 3X daily. DX:E11.8 [facility] Blood-Gluco se Meter (TRUE METRIX GLUCOSE METER) Kit 07-04 00:00: 00 Yes Use to check blood sugar 3X daily. DX:E11.8 [facility] blood sugar diagnostic (TRUE METRIX GLUCOSE TEST STRIP) strip 07-04 00:00: 00 Yes Use to check blood sugar 3X daily. DX:E11.8 [facility] Blood-Gluco se Meter (TRUE METRIX GLUCOSE METER) Kit 07-04 00:00: 00 Yes Use to check blood sugar 3X daily. DX:E11.8 [facility] blood sugar diagnostic (TRUE METRIX GLUCOSE TEST STRIP) strip 07-04 00:00: 00 Yes Use to check blood sugar 3X daily. DX:E11.8 [facility] Blood-Gluco se Meter (TRUE METRIX GLUCOSE METER) Kit 07-04 00:00: 00 Yes Use to check blood sugar 3X daily. DX:E11.8 [facility] blood sugar diagnostic (TRUE METRIX GLUCOSE TEST STRIP) strip 07-04 00:00: 00 Yes Use to check blood sugar 3X daily. DX:E11.8 [facility] Blood-Gluco se Meter (TRUE METRIX GLUCOSE METER) Kit 07-04 00:00: 00 Yes Use to check blood sugar 3X daily. DX:E11.8 [facility] blood sugar diagnostic (TRUE METRIX GLUCOSE TEST STRIP) strip 07-04 00:00: 00 Yes Use to check blood sugar 3X daily. DX:E11.8 [facility] Blood-Gluco se Meter (TRUE METRIX GLUCOSE METER) Kit 07-04 00:00: 00 Yes Use to check blood sugar 3X daily. DX:E11.8 [facility] blood sugar diagnostic (TRUE METRIX GLUCOSE TEST STRIP) strip 07-04 00:00: 00 Yes Use to check blood sugar 3X daily. DX:E11.8 [facility] Blood-Gluco se Meter (TRUE METRIX GLUCOSE METER) Kit 07-04 00:00: 00 Yes Use to check blood sugar 3X daily. DX:E11.8 [facility] blood sugar diagnostic (TRUE METRIX GLUCOSE TEST STRIP) strip 07-04 00:00: 00 Yes Use to check blood sugar 3X daily. DX:E11.8 [facility] Blood-Gluco se Meter (TRUE METRIX GLUCOSE METER) Kit 07-04 00:00: 00 Yes Use to check blood sugar 3X daily. DX:E11.8 [facility] blood sugar diagnostic (TRUE METRIX GLUCOSE TEST STRIP) strip 07-04 00:00: 00 Yes Use to check blood sugar 3X daily. DX:E11.8 [facility] Blood-Gluco se Meter (TRUE METRIX GLUCOSE METER) Kit 07-04 00:00: 00 Yes Use to check blood sugar 3X daily. DX:E11.8 [facility] blood sugar diagnostic (TRUE METRIX GLUCOSE TEST STRIP) strip 07-04 00:00: 00 Yes Use to check blood sugar 3X daily. DX:E11.8 [facility] Blood-Gluco se Meter (TRUE METRIX GLUCOSE METER) Kit 07-04 00:00: 00 Yes Use to check blood sugar 3X daily. DX:E11.8 [facility] blood sugar diagnostic (TRUE METRIX GLUCOSE TEST STRIP) strip 07-04 00:00: 00 Yes Use to check blood sugar 3X daily. DX:E11.8 [facility] Blood-Gluco se Meter (TRUE METRIX GLUCOSE METER) Kit 07-04 00:00: 00 Yes Use to check blood sugar 3X daily. DX:E11.8 [facility] blood sugar diagnostic (TRUE METRIX GLUCOSE TEST STRIP) strip 07-04 00:00: 00 Yes Use to check blood sugar 3X daily. DX:E11.8 [facility] Blood-Gluco se Meter (TRUE METRIX GLUCOSE METER) Kit 07-04 00:00: 00 Yes Use to check blood sugar 3X daily. DX:E11.8 [facility] blood sugar diagnostic (TRUE METRIX GLUCOSE TEST STRIP) strip 07-04 00:00: 00 Yes Use to check blood sugar 3X daily. DX:E11.8 [facility] Blood-Gluco se Meter (TRUE METRIX GLUCOSE METER) Kit 07-04 00:00: 00 Yes Use to check blood sugar 3X daily. DX:E11.8 [facility] blood sugar diagnostic (TRUE METRIX GLUCOSE TEST STRIP) strip 07-04 00:00: 00 Yes Use to check blood sugar 3X daily. DX:E11.8 [facility] Blood-Gluco se Meter (TRUE METRIX GLUCOSE METER) Kit 07-04 00:00: 00 Yes Use to check blood sugar 3X daily. DX:E11.8 [facility] blood sugar diagnostic (TRUE METRIX GLUCOSE TEST STRIP) strip 07-04 00:00: 00 Yes Use to check blood sugar 3X daily. DX:E11.8 [facility] Blood-Gluco se Meter (TRUE METRIX GLUCOSE METER) Kit 07-04 00:00: 00 Yes Use to check blood sugar 3X daily. DX:E11.8 [facility] blood sugar diagnostic (TRUE METRIX GLUCOSE TEST STRIP) strip 07-04 00:00: 00 Yes Use to check blood sugar 3X daily. DX:E11.8 [facility] Blood-Gluco se Meter (TRUE METRIX GLUCOSE METER) Kit 07-04 00:00: 00 Yes Use to check blood sugar 3X daily. DX:E11.8 [facility] blood sugar diagnostic (TRUE METRIX GLUCOSE TEST STRIP) strip 07-04 00:00: 00 Yes Use to check blood sugar 3X daily. DX:E11.8 [facility] Blood-Gluco se Meter (TRUE METRIX GLUCOSE METER) Kit 07-04 00:00: 00 Yes Use to check blood sugar 3X daily. DX:E11.8 [facility] blood sugar diagnostic (TRUE METRIX GLUCOSE TEST STRIP) strip 07-04 00:00: 00 Yes Use to check blood sugar 3X daily. DX:E11.8 [facility] Blood-Gluco se Meter (TRUE METRIX GLUCOSE METER) Kit 07-04 00:00: 00 Yes Use to check blood sugar 3X daily. DX:E11.8 [facility] blood sugar diagnostic (TRUE METRIX GLUCOSE TEST STRIP) strip 07-04 00:00: 00 Yes Use to check blood sugar 3X daily. DX:E11.8 [facility] Blood-Gluco se Meter (TRUE METRIX GLUCOSE METER) Kit 07-04 00:00: 00 Yes Use to check blood sugar 3X daily. DX:E11.8 [facility] blood sugar diagnostic (TRUE METRIX GLUCOSE TEST STRIP) strip 07-04 00:00: 00 Yes Use to check blood sugar 3X daily. DX:E11.8 [facility] Blood-Gluco se Meter (TRUE METRIX GLUCOSE METER) Kit 07-04 00:00: 00 Yes Use to check blood sugar 3X daily. DX:E11.8 [facility] blood sugar diagnostic (TRUE METRIX GLUCOSE TEST STRIP) strip 07-04 00:00: 00 Yes Use to check blood sugar 3X daily. DX:E11.8 [facility] Blood-Gluco se Meter (TRUE METRIX GLUCOSE METER) Kit 07-04 00:00: 00 Yes Use to check blood sugar 3X daily. DX:E11.8 [facility] blood sugar diagnostic (TRUE METRIX GLUCOSE TEST STRIP) strip 07-04 00:00: 00 Yes Use to check blood sugar 3X daily. DX:E11.8 [facility] Blood-Gluco se Meter (TRUE METRIX GLUCOSE METER) Kit 07-04 00:00: 00 Yes Use to check blood sugar 3X daily. DX:E11.8 [facility] blood sugar diagnostic (TRUE METRIX GLUCOSE TEST STRIP) strip 07-04 00:00: 00 Yes Use to check blood sugar 3X daily. DX:E11.8 [facility] Blood-Gluco se Meter (TRUE METRIX GLUCOSE METER) Kit 07-04 00:00: 00 Yes Use to check blood sugar 3X daily. DX:E11.8 [facility] blood sugar diagnostic (TRUE METRIX GLUCOSE TEST STRIP) strip 07-04 00:00: 00 Yes Use to check blood sugar 3X daily. DX:E11.8 [facility] Blood-Gluco se Meter (TRUE METRIX GLUCOSE METER) Kit 07-04 00:00: 00 Yes Use to check blood sugar 3X daily. DX:E11.8 [facility] blood sugar diagnostic (TRUE METRIX GLUCOSE TEST STRIP) strip 07-04 00:00: 00 Yes Use to check blood sugar 3X daily. DX:E11.8 [facility] Blood-Gluco se Meter (TRUE METRIX GLUCOSE METER) Kit 07-04 00:00: 00 Yes Use to check blood sugar 3X daily. DX:E11.8 [facility] blood sugar diagnostic (TRUE METRIX GLUCOSE TEST STRIP) strip 07-04 00:00: 00 Yes Use to check blood sugar 3X daily. DX:E11.8 [facility] Blood-Gluco se Meter (TRUE METRIX GLUCOSE METER) Kit 07-04 00:00: 00 Yes Use to check blood sugar 3X daily. DX:E11.8 [facility] blood sugar diagnostic (TRUE METRIX GLUCOSE TEST STRIP) strip 07-04 00:00: 00 Yes Use to check blood sugar 3X daily. DX:E11.8 [facility] Blood-Gluco se Meter (TRUE METRIX GLUCOSE METER) Kit 07-04 00:00: 00 Yes Use to check blood sugar 3X daily. DX:E11.8 [facility] blood sugar diagnostic (TRUE METRIX GLUCOSE TEST STRIP) strip 07-04 00:00: 00 Yes Use to check blood sugar 3X daily. DX:E11.8 [facility] Blood-Gluco se Meter (TRUE METRIX GLUCOSE METER) Kit 07-04 00:00: 00 Yes Use to check blood sugar 3X daily. DX:E11.8 [facility] blood sugar diagnostic (TRUE METRIX GLUCOSE TEST STRIP) strip 07-04 00:00: 00 Yes Use to check blood sugar 3X daily. DX:E11.8 [facility] Blood-Gluco se Meter (TRUE METRIX GLUCOSE METER) Kit 07-04 00:00: 00 Yes Use to check blood sugar 3X daily. DX:E11.8 [facility] blood sugar diagnostic (TRUE METRIX GLUCOSE TEST STRIP) strip 07-04 00:00: 00 Yes Use to check blood sugar 3X daily. DX:E11.8 [facility] Blood-Gluco se Meter (TRUE METRIX GLUCOSE METER) Kit 07-04 00:00: 00 Yes Use to check blood sugar 3X daily. DX:E11.8 [facility] blood sugar diagnostic (TRUE METRIX GLUCOSE TEST STRIP) strip 07-04 00:00: 00 Yes Use to check blood sugar 3X daily. DX:E11.8 [facility] Blood-Gluco se Meter (TRUE METRIX GLUCOSE METER) Kit 07-04 00:00: 00 Yes Use to check blood sugar 3X daily. DX:E11.8 [facility] blood sugar diagnostic (TRUE METRIX GLUCOSE TEST STRIP) strip 07-04 00:00: 00 Yes Use to check blood sugar 3X daily. DX:E11.8 [facility] Blood-Gluco se Meter (TRUE METRIX GLUCOSE METER) Kit 07-04 00:00: 00 Yes Use to check blood sugar 3X daily. DX:E11.8 [facility] blood sugar diagnostic (TRUE METRIX GLUCOSE TEST STRIP) strip 07-04 00:00: 00 Yes Use to check blood sugar 3X daily. DX:E11.8 [facility] Blood-Gluco se Meter (TRUE METRIX GLUCOSE METER) Kit 07-04 00:00: 00 Yes Use to check blood sugar 3X daily. DX:E11.8 [facility] blood sugar diagnostic (TRUE METRIX GLUCOSE TEST STRIP) strip 07-04 00:00: 00 Yes Use to check blood sugar 3X daily. DX:E11.8 [facility] Blood-Gluco se Meter (TRUE METRIX GLUCOSE METER) Kit 07-04 00:00: 00 Yes Use to check blood sugar 3X daily. DX:E11.8 [facility] blood sugar diagnostic (TRUE METRIX GLUCOSE TEST STRIP) strip 07-04 00:00: 00 Yes Use to check blood sugar 3X daily. DX:E11.8 [facility] Blood-Gluco se Meter (TRUE METRIX GLUCOSE METER) Kit 07-04 00:00: 00 Yes Use to check blood sugar 3X daily. DX:E11.8 [facility] blood sugar diagnostic (TRUE METRIX GLUCOSE TEST STRIP) strip 07-04 00:00: 00 Yes Use to check blood sugar 3X daily. DX:E11.8 [facility] Blood-Gluco se Meter (TRUE METRIX GLUCOSE METER) Kit 07-04 00:00: 00 Yes Use to check blood sugar 3X daily. DX:E11.8 [facility] blood sugar diagnostic (TRUE METRIX GLUCOSE TEST STRIP) strip 07-04 00:00: 00 Yes Use to check blood sugar 3X daily. DX:E11.8 [facility] Blood-Gluco se Meter (TRUE METRIX GLUCOSE METER) Kit 07-04 00:00: 00 Yes Use to check blood sugar 3X daily. DX:E11.8 [facility] blood sugar diagnostic (TRUE METRIX GLUCOSE TEST STRIP) strip 07-04 00:00: 00 Yes Use to check blood sugar 3X daily. DX:E11.8 [facility] Blood-Gluco se Meter (TRUE METRIX GLUCOSE METER) Kit 07-04 00:00: 00 Yes Use to check blood sugar 3X daily. DX:E11.8 [facility] blood sugar diagnostic (TRUE METRIX GLUCOSE TEST STRIP) strip 07-04 00:00: 00 Yes Use to check blood sugar 3X daily. DX:E11.8 [facility] Blood-Gluco se Meter (TRUE METRIX GLUCOSE METER) Kit 07-04 00:00: 00 Yes Use to check blood sugar 3X daily. DX:E11.8 [facility] blood sugar diagnostic (TRUE METRIX GLUCOSE TEST STRIP) strip 07-04 00:00: 00 Yes Use to check blood sugar 3X daily. DX:E11.8 [facility] Blood-Gluco se Meter (TRUE METRIX GLUCOSE METER) Kit 07-04 00:00: 00 Yes Use to check blood sugar 3X daily. DX:E11.8 [facility] blood sugar diagnostic (TRUE METRIX GLUCOSE TEST STRIP) strip 07-04 00:00: 00 Yes Use to check blood sugar 3X daily. DX:E11.8 [facility] Blood-Gluco se Meter (TRUE METRIX GLUCOSE METER) Kit 07-04 00:00: 00 Yes Use to check blood sugar 3X daily. DX:E11.8 [facility] blood sugar diagnostic (TRUE METRIX GLUCOSE TEST STRIP) strip 07-04 00:00: 00 Yes Use to check blood sugar 3X daily. DX:E11.8 [facility] Blood-Gluco se Meter (TRUE METRIX GLUCOSE METER) Kit 07-04 00:00: 00 Yes Use to check blood sugar 3X daily. DX:E11.8 [facility] blood sugar diagnostic (TRUE METRIX GLUCOSE TEST STRIP) strip 07-04 00:00: 00 Yes Use to check blood sugar 3X daily. DX:E11.8 [facility] Blood-Gluco se Meter (TRUE METRIX GLUCOSE METER) Kit 07-04 00:00: 00 Yes Use to check blood sugar 3X daily. DX:E11.8 [facility] blood sugar diagnostic (TRUE METRIX GLUCOSE TEST STRIP) strip 07-04 00:00: 00 Yes Use to check blood sugar 3X daily. DX:E11.8 [facility] Blood-Gluco se Meter (TRUE METRIX GLUCOSE METER) Kit 07-04 00:00: 00 Yes Use to check blood sugar 3X daily. DX:E11.8 [facility] blood sugar diagnostic (TRUE METRIX GLUCOSE TEST STRIP) strip 07-04 00:00: 00 Yes Use to check blood sugar 3X daily. DX:E11.8 [facility] Blood-Gluco se Meter (TRUE METRIX GLUCOSE METER) Kit 07-04 00:00: 00 Yes Use to check blood sugar 3X daily. DX:E11.8 [facility] blood sugar diagnostic (TRUE METRIX GLUCOSE TEST STRIP) strip 07-04 00:00: 00 Yes Use to check blood sugar 3X daily. DX:E11.8 [facility] Blood-Gluco se Meter (TRUE METRIX GLUCOSE METER) Kit 07-04 00:00: 00 Yes Use to check blood sugar 3X daily. DX:E11.8 [facility] blood sugar diagnostic (TRUE METRIX GLUCOSE TEST STRIP) strip 07-04 00:00: 00 Yes Use to check blood sugar 3X daily. DX:E11.8 [facility] Blood-Gluco se Meter (TRUE METRIX GLUCOSE METER) Kit 07-04 00:00: 00 Yes Use to check blood sugar 3X daily. DX:E11.8 [facility] blood sugar diagnostic (TRUE METRIX GLUCOSE TEST STRIP) strip 07-04 00:00: 00 Yes Use to check blood sugar 3X daily. DX:E11.8 [facility] Blood-Gluco se Meter (TRUE METRIX GLUCOSE METER) Kit 07-04 00:00: 00 Yes Use to check blood sugar 3X daily. DX:E11.8 [facility] blood sugar diagnostic (TRUE METRIX GLUCOSE TEST STRIP) strip 07-04 00:00: 00 Yes Use to check blood sugar 3X daily. DX:E11.8 [facility] Blood-Gluco se Meter (TRUE METRIX GLUCOSE METER) Kit 07-04 00:00: 00 Yes Use to check blood sugar 3X daily. DX:E11.8 [facility] blood sugar diagnostic (TRUE METRIX GLUCOSE TEST STRIP) strip 07-04 00:00: 00 Yes Use to check blood sugar 3X daily. DX:E11.8 [facility] Blood-Gluco se Meter (TRUE METRIX GLUCOSE METER) Kit 07-04 00:00: 00 Yes Use to check blood sugar 3X daily. DX:E11.8 [facility] blood sugar diagnostic (TRUE METRIX GLUCOSE TEST STRIP) strip 07-04 00:00: 00 Yes Use to check blood sugar 3X daily. DX:E11.8 [facility] Blood-Gluco se Meter (TRUE METRIX GLUCOSE METER) Kit 07-04 00:00: 00 Yes Use to check blood sugar 3X daily. DX:E11.8 [facility] blood sugar diagnostic (TRUE METRIX GLUCOSE TEST STRIP) strip 07-04 00:00: 00 Yes Use to check blood sugar 3X daily. DX:E11.8 [facility] Blood-Gluco se Meter (TRUE METRIX GLUCOSE METER) Kit 07-04 00:00: 00 Yes Use to check blood sugar 3X daily. DX:E11.8 [facility] blood sugar diagnostic (TRUE METRIX GLUCOSE TEST STRIP) strip 07-04 00:00: 00 Yes Use to check blood sugar 3X daily. DX:E11.8 [facility] Blood-Gluco se Meter (TRUE METRIX GLUCOSE METER) Kit 07-04 00:00: 00 Yes Use to check blood sugar 3X daily. DX:E11.8 [facility] blood sugar diagnostic (TRUE METRIX GLUCOSE TEST STRIP) strip 07-04 00:00: 00 Yes Use to check blood sugar 3X daily. DX:E11.8 [facility] Blood-Gluco se Meter (TRUE METRIX GLUCOSE METER) Kit 07-04 00:00: 00 Yes Use to check blood sugar 3X daily. DX:E11.8 [facility] blood sugar diagnostic (TRUE METRIX GLUCOSE TEST STRIP) strip 07-04 00:00: 00 Yes Use to check blood sugar 3X daily. DX:E11.8 [facility] Blood-Gluco se Meter (TRUE METRIX GLUCOSE METER) Kit 07-04 00:00: 00 Yes Use to check blood sugar 3X daily. DX:E11.8 [facility] blood sugar diagnostic (TRUE METRIX GLUCOSE TEST STRIP) strip 07-04 00:00: 00 Yes Use to check blood sugar 3X daily. DX:E11.8 [facility] Blood-Gluco se Meter (TRUE METRIX GLUCOSE METER) Kit 07-04 00:00: 00 Yes Use to check blood sugar 3X daily. DX:E11.8 [facility] blood sugar diagnostic (TRUE METRIX GLUCOSE TEST STRIP) strip 07-04 00:00: 00 Yes Use to check blood sugar 3X daily. DX:E11.8 [facility] Blood-Gluco se Meter (TRUE METRIX GLUCOSE METER) Kit 07-04 00:00: 00 Yes Use to check blood sugar 3X daily. DX:E11.8 [facility] blood sugar diagnostic (TRUE METRIX GLUCOSE TEST STRIP) strip 07-04 00:00: 00 Yes Use to check blood sugar 3X daily. DX:E11.8 [facility] Blood-Gluco se Meter (TRUE METRIX GLUCOSE METER) Kit 07-04 00:00: 00 Yes Use to check blood sugar 3X daily. DX:E11.8 [facility] blood sugar diagnostic (TRUE METRIX GLUCOSE TEST STRIP) strip 07-04 00:00: 00 Yes Use to check blood sugar 3X daily. DX:E11.8 [facility] Blood-Gluco se Meter (TRUE METRIX GLUCOSE METER) Kit 07-04 00:00: 00 Yes Use to check blood sugar 3X daily. DX:E11.8 [facility] blood sugar diagnostic (TRUE METRIX GLUCOSE TEST STRIP) strip 07-04 00:00: 00 Yes Use to check blood sugar 3X daily. DX:E11.8 [facility] Blood-Gluco se Meter (TRUE METRIX GLUCOSE METER) Kit 07-04 00:00: 00 Yes Use to check blood sugar 3X daily. DX:E11.8 [facility] blood sugar diagnostic (TRUE METRIX GLUCOSE TEST STRIP) strip 07-04 00:00: 00 Yes Use to check blood sugar 3X daily. DX:E11.8 [facility] Blood-Gluco se Meter (TRUE METRIX GLUCOSE METER) Kit 07-04 00:00: 00 Yes Use to check blood sugar 3X daily. DX:E11.8 [facility] blood sugar diagnostic (TRUE METRIX GLUCOSE TEST STRIP) strip 07-04 00:00: 00 Yes Use to check blood sugar 3X daily. DX:E11.8 [facility] Blood-Gluco se Meter (TRUE METRIX GLUCOSE METER) Kit 07-04 00:00: 00 Yes Use to check blood sugar 3X daily. DX:E11.8 [facility] blood sugar diagnostic (TRUE METRIX GLUCOSE TEST STRIP) strip 07-04 00:00: 00 Yes Use to check blood sugar 3X daily. DX:E11.8 [facility] Blood-Gluco se Meter (TRUE METRIX GLUCOSE METER) Kit 07-04 00:00: 00 Yes Use to check blood sugar 3X daily. DX:E11.8 [facility] blood sugar diagnostic (TRUE METRIX GLUCOSE TEST STRIP) strip 07-04 00:00: 00 Yes Use to check blood sugar 3X daily. DX:E11.8 [facility] Blood-Gluco se Meter (TRUE METRIX GLUCOSE METER) Kit 07-04 00:00: 00 Yes Use to check blood sugar 3X daily. DX:E11.8 [facility] blood sugar diagnostic (TRUE METRIX GLUCOSE TEST STRIP) strip 07-04 00:00: 00 Yes Use to check blood sugar 3X daily. DX:E11.8 [facility] Blood-Gluco se Meter (TRUE METRIX GLUCOSE METER) Kit 07-04 00:00: 00 Yes Use to check blood sugar 3X daily. DX:E11.8 [facility] blood sugar diagnostic (TRUE METRIX GLUCOSE TEST STRIP) strip 07-04 00:00: 00 Yes Use to check blood sugar 3X daily. DX:E11.8 [facility] Blood-Gluco se Meter (TRUE METRIX GLUCOSE METER) Kit 07-04 00:00: 00 Yes Use to check blood sugar 3X daily. DX:E11.8 [facility] Insulin [place], Disposable, (PEN NEEDLE) 31 gauge x 5/16" Ndle 07-02 00:00: 00 Yes [id number] Use as directed to inject insulin four times daily for E11.8 [facility] Insulin [place], Disposable, (PEN NEEDLE) 31 gauge x 5/16" Ndle 07-02 00:00: 00 Yes [id number] Use as directed to inject insulin four times daily for E11.8 [facility] Insulin [place], Disposable, (PEN NEEDLE) 31 gauge x 5/16" Ndle 2022-0 5-24 00:00: 00 Yes [id number] Use as directed to inject insulin four times daily for E11.8 [facility] Insulin [place], Disposable, (PEN NEEDLE) 31 gauge x 5/16" Ndle 2022-0 5-24 00:00: 00 Yes [id number] Use as directed to inject insulin four times daily for E11.8 [facility] Insulin [place], Disposable, (PEN NEEDLE) 31 gauge x 5/16" Ndle 2022-0 5-24 00:00: 00 Yes [id number] Use as directed to inject insulin four times daily for E11.8 [facility] Insulin [place], Disposable, (PEN NEEDLE) 31 gauge x 5/16" Ndle 2022-0 5-24 00:00: 00 Yes [id number] Use as directed to inject insulin four times daily for E11.8 [facility] Insulin [place], Disposable, (PEN NEEDLE) 31 gauge x 5/16" Ndle 2022-0 5-24 00:00: 00 Yes [id number] Use as directed to inject insulin four times daily for E11.8 [facility] Insulin [place], Disposable, (PEN NEEDLE) 31 gauge x 5/16" Ndle 2022-0 5-24 00:00: 00 Yes [id number] Use as directed to inject insulin four times daily for E11.8 [facility] Insulin [place], Disposable, (PEN NEEDLE) 31 gauge x 5/16" Ndle 2022-0 5-24 00:00: 00 Yes [id number] Use as directed to inject insulin four times daily for E11.8 [facility] Insulin [place], Disposable, (PEN NEEDLE) 31 gauge x 5/16" Ndle 2022-0 5-24 00:00: 00 Yes [id number] Use as directed to inject insulin four times daily for E11.8 [facility] Insulin [place], Disposable, (PEN NEEDLE) 31 gauge x 5/16" Ndle 2022-0 5-24 00:00: 00 Yes [id number] Use as directed to inject insulin four times daily for E11.8 [facility] Insulin [place], Disposable, (PEN NEEDLE) 31 gauge x 5/16" Ndle 2022-0 5-24 00:00: 00 Yes [id number] Use as directed to inject insulin four times daily for E11.8 [facility] Insulin [place], Disposable, (PEN NEEDLE) 31 gauge x 5/16" Ndle 2022-0 5-24 00:00: 00 Yes [id number] Use as directed to inject insulin four times daily for E11.8 [facility] Insulin [place], Disposable, (PEN NEEDLE) 31 gauge x 5/16" Ndle 2022-0 5-24 00:00: 00 Yes [id number] Use as directed to inject insulin four times daily for E11.8 [facility] Insulin [place], Disposable, (PEN NEEDLE) 31 gauge x 5/16" Ndle 2022-0 5-24 00:00: 00 Yes [id number] Use as directed to inject insulin four times daily for E11.8 [facility] Insulin [place], Disposable, (PEN NEEDLE) 31 gauge x 5/16" Ndle 2022-0 5-24 00:00: 00 Yes [id number] Use as directed to inject insulin four times daily for E11.8 [facility] Insulin [place], Disposable, (PEN NEEDLE) 31 gauge x 5/16" Ndle 2022-0 5-24 00:00: 00 Yes [id number] Use as directed to inject insulin four times daily for E11.8 [facility] Insulin [place], Disposable, (PEN NEEDLE) 31 gauge x 5/16" Ndle 2022-0 5-24 00:00: 00 Yes [id number] Use as directed to inject insulin four times daily for E11.8 [facility] Insulin [place], Disposable, (PEN NEEDLE) 31 gauge x 5/16" Ndle 2022-0 5-24 00:00: 00 Yes [id number] Use as directed to inject insulin four times daily for E11.8 [facility] Insulin [place], Disposable, (PEN NEEDLE) 31 gauge x 5/16" Ndle 2022-0 5-24 00:00: 00 Yes [id number] Use as directed to inject insulin four times daily for E11.8 [facility] Insulin [place], Disposable, (PEN NEEDLE) 31 gauge x 5/16" Ndle 2022-0 5-24 00:00: 00 Yes [id number] Use as directed to inject insulin four times daily for E11.8 [facility] Insulin [place], Disposable, (PEN NEEDLE) 31 gauge x 5/16" Ndle 2-0 5-24 00:00: 00 Yes [id number] Use as directed to inject insulin four times daily for E11.8 [facility] Insulin [place], Disposable, (PEN NEEDLE) 31 gauge x 5/16" Ndle 2022-0 5-24 00:00: 00 Yes [id number] Use as directed to inject insulin four times daily for E11.8 [facility] Insulin [place], Disposable, (PEN NEEDLE) 31 gauge x 5/16" Ndle 2022-0 5-24 00:00: 00 Yes [id number] Use as directed to inject insulin four times daily for E11.8 [facility] Insulin [place], Disposable, (PEN NEEDLE) 31 gauge x 5/16" Ndle 2-0 5-24 00:00: 00 Yes [id number] Use as directed to inject insulin four times daily for E11.8 [facility] Insulin [place], Disposable, (PEN NEEDLE) 31 gauge x 5/16" Ndle 2-0 5-24 00:00: 00 Yes [id number] Use as directed to inject insulin four times daily for E11.8 [facility] Insulin [place], Disposable, (PEN NEEDLE) 31 gauge x 5/16" Ndle 2022-0 5-24 00:00: 00 Yes [id number] Use as directed to inject insulin four times daily for E11.8 [facility] Insulin [place], Disposable, (PEN NEEDLE) 31 gauge x 5/16" Ndle 2022-0 5-24 00:00: 00 Yes [id number] Use as directed to inject insulin four times daily for E11.8 [facility] Insulin [place], Disposable, (PEN NEEDLE) 31 gauge x 5/16" Ndle 2022-0 5-24 00:00: 00 Yes [id number] Use as directed to inject insulin four times daily for E11.8 [facility] Insulin [place], Disposable, (PEN NEEDLE) 31 gauge x 5/16" Ndle 2022-0 5-24 00:00: 00 Yes [id number] Use as directed to inject insulin four times daily for E11.8 [facility] Insulin [place], Disposable, (PEN NEEDLE) 31 gauge x 5/16" Ndle 2022-0 5-24 00:00: 00 Yes [id number] Use as directed to inject insulin four times daily for E11.8 [facility] Insulin [place], Disposable, (PEN NEEDLE) 31 gauge x 5/16" Ndle 2022-0 5-24 00:00: 00 Yes [id number] Use as directed to inject insulin four times daily for E11.8 [facility] Insulin [place], Disposable, (PEN NEEDLE) 31 gauge x 5/16" Ndle 2022-0 5-24 00:00: 00 Yes [id number] Use as directed to inject insulin four times daily for E11.8 [facility] Insulin [place], Disposable, (PEN NEEDLE) 31 gauge x 5/16" Ndle 2022-0 5-24 00:00: 00 Yes [id number] Use as directed to inject insulin four times daily for E11.8 [facility] Insulin [place], Disposable, (PEN NEEDLE) 31 gauge x 5/16" Ndle 2022-0 5-24 00:00: 00 Yes [id number] Use as directed to inject insulin four times daily for E11.8 [facility] Insulin [place], Disposable, (PEN NEEDLE) 31 gauge x 5/16" Ndle 2022-0 5-24 00:00: 00 Yes [id number] Use as directed to inject insulin four times daily for E11.8 [facility] Insulin [place], Disposable, (PEN NEEDLE) 31 gauge x 5/16" Ndle 2022-0 5-24 00:00: 00 Yes [id number] Use as directed to inject insulin four times daily for E11.8 [facility] Insulin [place], Disposable, (PEN NEEDLE) 31 gauge x 5/16" Ndle 2022-0 5-24 00:00: 00 Yes [id number] Use as directed to inject insulin four times daily for E11.8 [facility] Insulin [place], Disposable, (PEN NEEDLE) 31 gauge x 5/16" Ndle 2022-0 5-24 00:00: 00 Yes [id number] Use as directed to inject insulin four times daily for E11.8 [facility] Insulin [place], Disposable, (PEN NEEDLE) 31 gauge x 5/16" Ndle 2022-0 5-24 00:00: 00 Yes [id number] Use as directed to inject insulin four times daily for E11.8 [facility] Insulin [place], Disposable, (PEN NEEDLE) 31 gauge x 5/16" Ndle 2022-0 5-24 00:00: 00 Yes [id number] Use as directed to inject insulin four times daily for E11.8 [facility] Insulin [place], Disposable, (PEN NEEDLE) 31 gauge x 5/16" Ndle 2022-0 5-24 00:00: 00 Yes [id number] Use as directed to inject insulin four times daily for E11.8 [facility] Insulin [place], Disposable, (PEN NEEDLE) 31 gauge x 5/16" Ndle 2022-0 5-24 00:00: 00 Yes [id number] Use as directed to inject insulin four times daily for E11.8 [facility] Insulin [place], Disposable, (PEN NEEDLE) 31 gauge x 5/16" Ndle 2-0 5-24 00:00: 00 Yes [id number] Use as directed to inject insulin four times daily for E11.8 [facility] Insulin [place], Disposable, (PEN NEEDLE) 31 gauge x 5/16" Ndle 2-0 5-24 00:00: 00 Yes [id number] Use as directed to inject insulin four times daily for E11.8 [facility] Insulin [place], Disposable, (PEN NEEDLE) 31 gauge x 5/16" Ndle 2-0 5-24 00:00: 00 Yes [id number] Use as directed to inject insulin four times daily for E11.8 [facility] Insulin [place], Disposable, (PEN NEEDLE) 31 gauge x 5/16" Ndle 2022-0 5-24 00:00: 00 Yes [id number] Use as directed to inject insulin four times daily for E11.8 [facility] Insulin [place], Disposable, (PEN NEEDLE) 31 gauge x 5/16" Ndle 2022-0 5-24 00:00: 00 Yes [id number] Use as directed to inject insulin four times daily for E11.8 [facility] Insulin [place], Disposable, (PEN NEEDLE) 31 gauge x 5/16" Ndle 2022-0 5-24 00:00: 00 Yes [id number] Use as directed to inject insulin four times daily for E11.8 [facility] [facility] Insulin [place], Disposable, (PEN NEEDLE) 31 gauge x 5/16" Ndle 2022-0 5-24 00:00: 00 Yes [id number] Use as directed to inject insulin four times daily for E11.8 [facility] Insulin [place], Disposable, (PEN NEEDLE) 31 gauge x 5/16" Ndle 2022-0 5-24 00:00: 00 Yes [id number] Use as directed to inject insulin four times daily for E11.8 [facility] Insulin [place], Disposable, (PEN NEEDLE) 31 gauge x 5/16" Ndle 2022-0 5-24 00:00: 00 Yes [id number] Use as directed to inject insulin four times daily for E11.8 [facility] Insulin [place], Disposable, (PEN NEEDLE) 31 gauge x 5/16" Ndle 2022-0 5-24 00:00: 00 Yes [id number] Use as directed to inject insulin four times daily for E11.8 [facility] Insulin [place], Disposable, (PEN NEEDLE) 31 gauge x 5/16" Ndle 2022-0 5-24 00:00: 00 Yes [id number] Use as directed to inject insulin four times daily for E11.8 [facility] Insulin [place], Disposable, (PEN NEEDLE) 31 gauge x 5/16" Ndle 2022-0 5-24 00:00: 00 Yes [id number] Use as directed to inject insulin four times daily for E11.8 [facility] Insulin [place], Disposable, (PEN NEEDLE) 31 gauge x 5/16" Ndle 2022-0 5-24 00:00: 00 Yes [id number] Use as directed to inject insulin four times daily for E11.8 [facility] Insulin [place], Disposable, (PEN NEEDLE) 31 gauge x 5/16" Ndle 2022-0 5-24 00:00: 00 Yes [id number] Use as directed to inject insulin four times daily for E11.8 [facility] Insulin [place], Disposable, (PEN NEEDLE) 31 gauge x 5/16" Ndle 2022-0 5-24 00:00: 00 Yes [id number] Use as directed to inject insulin four times daily for E11.8 [facility] Insulin [place], Disposable, (PEN NEEDLE) 31 gauge x 5/16" Ndle 2022-0 5-24 00:00: 00 Yes [id number] Use as directed to inject insulin four times daily for E11.8 [facility] Insulin [place], Disposable, (PEN NEEDLE) 31 gauge x 5/16" Ndle 2022-0 5-24 00:00: 00 Yes [id number] Use as directed to inject insulin four times daily for E11.8 [facility] Insulin [place], Disposable, (PEN NEEDLE) 31 gauge x 5/16" Ndle 2022-0 5-24 00:00: 00 Yes [id number] Use as directed to inject insulin four times daily for E11.8 [facility] Insulin [place], Disposable, (PEN NEEDLE) 31 gauge x 5/16" Ndle 2022-0 5-24 00:00: 00 Yes [id number] Use as directed to inject insulin four times daily for E11.8 [facility] Insulin [place], Disposable, (PEN NEEDLE) 31 gauge x 5/16" Ndle 2022-0 5-24 00:00: 00 Yes [id number] Use as directed to inject insulin four times daily for E11.8 [facility] Insulin [place], Disposable, (PEN NEEDLE) 31 gauge x 5/16" Ndle 2022-0 5-24 00:00: 00 Yes [id number] Use as directed to inject insulin four times daily for E11.8 [facility] Insulin [place], Disposable, (PEN NEEDLE) 31 gauge x 5/16" Ndle 2022-0 5-24 00:00: 00 Yes [id number] Use as directed to inject insulin four times daily for E11.8 [facility] Insulin [place], Disposable, (PEN NEEDLE) 31 gauge x 5/16" Ndle 2022-0 5-24 00:00: 00 Yes [id number] Use as directed to inject insulin four times daily for E11.8 [facility] Insulin [place], Disposable, (PEN NEEDLE) 31 gauge x 5/16" Ndle 2022-0 5-24 00:00: 00 Yes [id number] Use as directed to inject insulin four times daily for E11.8 [facility] Insulin [place], Disposable, (PEN NEEDLE) 31 gauge x 5/16" Ndle 2022-0 5-24 00:00: 00 Yes [id number] Use as directed to inject insulin four times daily for E11.8 [facility] [place] [facility] Insulin [place], Disposable, (PEN NEEDLE) 31 gauge x 5/16" Ndle 2022-0 5-24 00:00: 00 Yes [id number] Use as directed to inject insulin four times daily for E11.8 [facility] Insulin [place], Disposable, (PEN NEEDLE) 31 gauge x 5/16" Ndle 2022-0 5-24 00:00: 00 Yes [id number] Use as directed to inject insulin four times daily for E11.8 [facility] Insulin [place], Disposable, (PEN NEEDLE) 31 gauge x 5/16" Ndle 2022-0 5-24 00:00: 00 Yes [id number] Use as directed to inject insulin four times daily for E11.8 [facility] Insulin [place], Disposable, (PEN NEEDLE) 31 gauge x 5/16" Ndle 2022-0 5-24 00:00: 00 Yes [id number] Use as directed to inject insulin four times daily for E11.8 [facility] Insulin [place], Disposable, (PEN NEEDLE) 31 gauge x 5/16" Ndle 2022-0 5-24 00:00: 00 Yes [id number] Use as directed to inject insulin four times daily for E11.8 [facility] Insulin [place], Disposable, (PEN NEEDLE) 31 gauge x 5/16" Ndle 2022-0 5-24 00:00: 00 Yes [id number] Use as directed to inject insulin four times daily for E11.8 [facility] Insulin [place], Disposable, (PEN NEEDLE) 31 gauge x 5/16" Ndle 2022-0 5-24 00:00: 00 Yes [id number] Use as directed to inject insulin four times daily for E11.8 [facility] Insulin [place], Disposable, (PEN NEEDLE) 31 gauge x 5/16" Ndle 2022-0 5-24 00:00: 00 Yes [id number] Use as directed to inject insulin four times daily for E11.8 [facility] Insulin [place], Disposable, (PEN NEEDLE) 31 gauge x 5/16" Ndle 2022-0 5-24 00:00: 00 Yes [id number] Use as directed to inject insulin four times daily for E11.8 [facility] Insulin [place], Disposable, (PEN NEEDLE) 31 gauge x 5/16" Ndle 2022-0 5-24 00:00: 00 Yes [id number] Use as directed to inject insulin four times daily for E11.8 [facility] Insulin [place], Disposable, (PEN NEEDLE) 31 gauge x 5/16" Ndle 2022-0 5-24 00:00: 00 Yes [id number] Use as directed to inject insulin four times daily for E11.8 [facility] Insulin [place], Disposable, (PEN NEEDLE) 31 gauge x 5/16" Ndle 2022-0 5-24 00:00: 00 Yes [id number] Use as directed to inject insulin four times daily for E11.8 [facility] Insulin [place], Disposable, (PEN NEEDLE) 31 gauge x 5/16" Ndle 2022-0 5-24 00:00: 00 Yes [id number] Use as directed to inject insulin four times daily for E11.8 [facility] Insulin [place], Disposable, (PEN NEEDLE) 31 gauge x 5/16" Ndle 2022-0 5-24 00:00: 00 Yes [id number] Use as directed to inject insulin four times daily for E11.8 [facility] Insulin [place], Disposable, (PEN NEEDLE) 31 gauge x 5/16" Ndle 2022-0 5-24 00:00: 00 Yes [id number] Use as directed to inject insulin four times daily for E11.8 [facility] Insulin [place], Disposable, (PEN NEEDLE) 31 gauge x 5/16" Ndle 2022-0 5-24 00:00: 00 Yes [id number] Use as directed to inject insulin four times daily for E11.8 [facility] Insulin [place], Disposable, (PEN NEEDLE) 31 gauge x 5/16" Ndle 2022-0 5-24 00:00: 00 Yes [id number] Use as directed to inject insulin four times daily for E11.8 [facility] Insulin [place], Disposable, (PEN NEEDLE) 31 gauge x 5/16" Ndle 2022-0 5-24 00:00: 00 Yes [id number] Use as directed to inject insulin four times daily for E11.8 [facility] Insulin [place], Disposable, (PEN NEEDLE) 31 gauge x 5/16" Ndle 2022-0 5-24 00:00: 00 Yes [id number] Use as directed to inject insulin four times daily for E11.8 [facility] Insulin [place], Disposable, (PEN NEEDLE) 31 gauge x 5/16" Ndle 2022-0 5-24 00:00: 00 Yes [id number] Use as directed to inject insulin four times daily for E11.8 [facility] Insulin [place], Disposable, (PEN NEEDLE) 31 gauge x 5/16" Ndle 2022-0 5-24 00:00: 00 Yes [id number] Use as directed to inject insulin four times daily for E11.8 [facility] Insulin [place], Disposable, (PEN NEEDLE) 31 gauge x 5/16" Ndle 2-0 5-24 00:00: 00 Yes [id number] Use as directed to inject insulin four times daily for E11.8 [facility] Insulin [place], Disposable, (PEN NEEDLE) 31 gauge x 5/16" Ndle 2022-0 5-24 00:00: 00 Yes [id number] Use as directed to inject insulin four times daily for E11.8 [facility] Insulin [place], Disposable, (PEN NEEDLE) 31 gauge x 5/16" Ndle 2022-0 5-24 00:00: 00 Yes [id number] Use as directed to inject insulin four times daily for E11.8 [facility] Insulin [place], Disposable, (PEN NEEDLE) 31 gauge x 5/16" Ndle 2022-0 5-24 00:00: 00 Yes [id number] Use as directed to inject insulin four times daily for E11.8 [facility] Insulin [place], Disposable, (PEN NEEDLE) 31 gauge x 5/16" Ndle 2022-0 5-24 00:00: 00 Yes [id number] Use as directed to inject insulin four times daily for E11.8 [facility] Insulin [place], Disposable, (PEN NEEDLE) 31 gauge x 5/16" Ndle 2022-0 5-24 00:00: 00 Yes [id number] Use as directed to inject insulin four times daily for E11.8 [facility] Insulin [place], Disposable, (PEN NEEDLE) 31 gauge x 5/16" Ndle 2022-0 5-24 00:00: 00 Yes [id number] Use as directed to inject insulin four times daily for E11.8 [facility] Insulin [place], Disposable, (PEN NEEDLE) 31 gauge x 5/16" Ndle 2022-0 5-24 00:00: 00 Yes [id number] Use as directed to inject insulin four times daily for E11.8 [facility] Insulin [place], Disposable, (PEN NEEDLE) 31 gauge x 5/16" Ndle 2022-0 5-24 00:00: 00 Yes [id number] Use as directed to inject insulin four times daily for E11.8 [facility] Insulin [place], Disposable, (PEN NEEDLE) 31 gauge x 5/16" Ndle 2022-0 5-24 00:00: 00 Yes [id number] Use as directed to inject insulin four times daily for E11.8 [facility] Insulin [place], Disposable, (PEN NEEDLE) 31 gauge x 5/16" Ndle 2022-0 5-24 00:00: 00 Yes [id number] Use as directed to inject insulin four times daily for E11.8 [facility] Insulin [place], Disposable, (PEN NEEDLE) 31 gauge x 5/16" Ndle 2022-0 5-24 00:00: 00 Yes [id number] Use as directed to inject insulin four times daily for E11.8 [facility] Insulin [place], Disposable, (PEN NEEDLE) 31 gauge x 5/16" Ndle 2022-0 5-24 00:00: 00 Yes [id number] Use as directed to inject insulin four times daily for E11.8 [facility] Insulin [place], Disposable, (PEN NEEDLE) 31 gauge x 5/16" Ndle 2022-0 5-24 00:00: 00 Yes [id number] Use as directed to inject insulin four times daily for E11.8 [facility] Insulin [place], Disposable, (PEN NEEDLE) 31 gauge x 5/16" Ndle 2022-0 5-24 00:00: 00 Yes [id number] Use as directed to inject insulin four times daily for E11.8 [facility] Insulin [place], Disposable, (PEN NEEDLE) 31 gauge x 5/16" Ndle 2-0 5-24 00:00: 00 Yes [id number] Use as directed to inject insulin four times daily for E11.8 [facility] Insulin [place], Disposable, (PEN NEEDLE) 31 gauge x 5/16" Ndle 2-0 5-24 00:00: 00 Yes [id number] Use as directed to inject insulin four times daily for E11.8 [facility] Insulin [place], Disposable, (PEN NEEDLE) 31 gauge x 5/16" Ndle 2-0 5-24 00:00: 00 Yes [id number] Use as directed to inject insulin four times daily for E11.8 [facility] Insulin [place], Disposable, (PEN NEEDLE) 31 gauge x 5/16" Ndle 2021-0 5-24 00:00: 00 Yes [id number] Use as directed to inject insulin four times daily for E11.8 [facility] metFORMIN 500 mg 24 hr tablet 2021-0 5-23 00:00: 00 Yes [id number] 1000mg Take 2 tablets by mouth 2 (two) times daily with meals. [facility] metFORMIN 500 mg 24 hr tablet 2-0 5-23 00:00: 00 Yes [id number] 1000mg Take 2 tablets by mouth 2 (two) times daily with meals. [facility] metFORMIN 500 mg 24 hr tablet 2-0 5-23 00:00: 00 Yes [id number] 1000mg Take 2 tablets by mouth 2 (two) times daily with meals. [facility] metFORMIN 500 mg 24 hr tablet 2-0 5-23 00:00: 00 Yes [id number] 1000mg Take 2 tablets by mouth 2 (two) times daily with meals. [facility] metFORMIN 500 mg 24 hr tablet 2-0 5-23 00:00: 00 Yes [id number] 1000mg Take 2 tablets by mouth 2 (two) times daily with meals. [facility] metFORMIN 500 mg 24 hr tablet 2022-0 5-23 00:00: 00 Yes [id number] 1000mg Take 2 tablets by mouth 2 (two) times daily with meals. [facility] metFORMIN 500 mg 24 hr tablet 2022-0 5-23 00:00: 00 Yes [id number] 1000mg Take 2 tablets by mouth 2 (two) times daily with meals. [facility] metFORMIN 500 mg 24 hr tablet 2022-0 5-23 00:00: 00 Yes [id number] 1000mg Take 2 tablets by mouth 2 (two) times daily with meals. [facility] metFORMIN 500 mg 24 hr tablet 2022-0 5-23 00:00: 00 Yes [id number] 1000mg Take 2 tablets by mouth 2 (two) times daily with meals. [facility] metFORMIN 500 mg 24 hr tablet 2-0 5-23 00:00: 00 Yes [id number] 1000mg Take 2 tablets by mouth 2 (two) times daily with meals. [facility] metFORMIN 500 mg 24 hr tablet 2-0 5-23 00:00: 00 Yes [id number] 1000mg Take 2 tablets by mouth 2 (two) times daily with meals. [facility] metFORMIN 500 mg 24 hr tablet 2-0 5-23 00:00: 00 Yes [id number] 1000mg Take 2 tablets by mouth 2 (two) times daily with meals. [facility] metFORMIN 500 mg 24 hr tablet 2-0 5-23 00:00: 00 Yes [id number] 1000mg Take 2 tablets by mouth 2 (two) times daily with meals. [facility] metFORMIN 500 mg 24 hr tablet 2022-0 5-23 00:00: 00 Yes [id number] 1000mg Take 2 tablets by mouth 2 (two) times daily with meals. [facility] metFORMIN 500 mg 24 hr tablet 2022-0 5-23 00:00: 00 Yes [id number] 1000mg Take 2 tablets by mouth 2 (two) times daily with meals. [facility] metFORMIN 500 mg 24 hr tablet 2022-0 5-23 00:00: 00 Yes [id number] 1000mg Take 2 tablets by mouth 2 (two) times daily with meals. [facility] metFORMIN 500 mg 24 hr tablet 2022-0 5-23 00:00: 00 Yes [id number] 1000mg Take 2 tablets by mouth 2 (two) times daily with meals. [facility] metFORMIN 500 mg 24 hr tablet 2022-0 5-23 00:00: 00 Yes [id number] 1000mg Take 2 tablets by mouth 2 (two) times daily with meals. [facility] metFORMIN 500 mg 24 hr tablet 2022-0 5-23 00:00: 00 Yes [id number] 1000mg Take 2 tablets by mouth 2 (two) times daily with meals. [facility] metFORMIN 500 mg 24 hr tablet 2022-0 5-23 00:00: 00 Yes [id number] 1000mg Take 2 tablets by mouth 2 (two) times daily with meals. [facility] metFORMIN 500 mg 24 hr tablet 2022-0 5-23 00:00: 00 Yes [id number] 1000mg Take 2 tablets by mouth 2 (two) times daily with meals. [facility] metFORMIN 500 mg 24 hr tablet 2-0 5-23 00:00: 00 Yes [id number] 1000mg Take 2 tablets by mouth 2 (two) times daily with meals. [facility] metFORMIN 500 mg 24 hr tablet 2022-0 5-23 00:00: 00 Yes [id number] 1000mg Take 2 tablets by mouth 2 (two) times daily with meals. [facility] metFORMIN 500 mg 24 hr tablet 2022-0 5-23 00:00: 00 Yes [id number] 1000mg Take 2 tablets by mouth 2 (two) times daily with meals. [facility] metFORMIN 500 mg 24 hr tablet 2022-0 5-23 00:00: 00 Yes [id number] 1000mg Take 2 tablets by mouth 2 (two) times daily with meals. [facility] metFORMIN 500 mg 24 hr tablet 2022-0 5-23 00:00: 00 Yes [id number] 1000mg Take 2 tablets by mouth 2 (two) times daily with meals. [facility] metFORMIN 500 mg 24 hr tablet 2022-0 5-23 00:00: 00 Yes [id number] 1000mg Take 2 tablets by mouth 2 (two) times daily with meals. [facility] metFORMIN 500 mg 24 hr tablet 2022-0 5-23 00:00: 00 Yes [id number] 1000mg Take 2 tablets by mouth 2 (two) times daily with meals. [facility] metFORMIN 500 mg 24 hr tablet 2022-0 5-23 00:00: 00 Yes [id number] 1000mg Take 2 tablets by mouth 2 (two) times daily with meals. [facility] metFORMIN 500 mg 24 hr tablet 2-0 5-23 00:00: 00 Yes [id number] 1000mg Take 2 tablets by mouth 2 (two) times daily with meals. [facility] metFORMIN 500 mg 24 hr tablet 2022-0 5-23 00:00: 00 Yes [id number] 1000mg Take 2 tablets by mouth 2 (two) times daily with meals. [facility] metFORMIN 500 mg 24 hr tablet 2-0 5-23 00:00: 00 Yes [id number] 1000mg Take 2 tablets by mouth 2 (two) times daily with meals. [facility] metFORMIN 500 mg 24 hr tablet 2-0 5-23 00:00: 00 Yes [id number] 1000mg Take 2 tablets by mouth 2 (two) times daily with meals. [facility] metFORMIN 500 mg 24 hr tablet 2-0 5-23 00:00: 00 Yes [id number] 1000mg Take 2 tablets by mouth 2 (two) times daily with meals. [facility] metFORMIN 500 mg 24 hr tablet 2-0 5-23 00:00: 00 Yes [id number] 1000mg Take 2 tablets by mouth 2 (two) times daily with meals. [facility] metFORMIN 500 mg 24 hr tablet 2-0 5-23 00:00: 00 Yes [id number] 1000mg Take 2 tablets by mouth 2 (two) times daily with meals. [facility] metFORMIN 500 mg 24 hr tablet 2-0 5-23 00:00: 00 Yes [id number] 1000mg Take 2 tablets by mouth 2 (two) times daily with meals. [facility] metFORMIN 500 mg 24 hr tablet 2022-0 5-23 00:00: 00 Yes [id number] 1000mg Take 2 tablets by mouth 2 (two) times daily with meals. [facility] metFORMIN 500 mg 24 hr tablet 2022-0 5-23 00:00: 00 Yes [id number] 1000mg Take 2 tablets by mouth 2 (two) times daily with meals. [facility] metFORMIN 500 mg 24 hr tablet 2022-0 5-23 00:00: 00 Yes [id number] 1000mg Take 2 tablets by mouth 2 (two) times daily with meals. [facility] metFORMIN 500 mg 24 hr tablet 2021-0 23 00:00: 00 Yes [id number] 1000mg Take 2 tablets by mouth 2 (two) times daily with meals. [facility] metFORMIN 500 mg 24 hr tablet 2021-0 07-01 00:00: 00 Yes [id number] 1000mg Take 2 tablets by mouth 2 (two) times daily with meals. [facility] metFORMIN 500 mg 24 hr tablet 2021-0 07-01 00:00: 00 Yes [id number] 1000mg Take 2 tablets by mouth 2 (two) times daily with meals. [facility] metFORMIN 500 mg 24 hr tablet 0 07-01 00:00: 00 Yes [id number] 1000mg Take 2 tablets by mouth 2 (two) times daily with meals. [facility] metFORMIN 500 mg 24 hr tablet 2021-0 07-01 00:00: 00 Yes [id number] 1000mg Take 2 tablets by mouth 2 (two) times daily with meals. [facility] metFORMIN 500 mg 24 hr tablet 2021-0 07-01 00:00: 00 Yes [id number] 1000mg Take 2 tablets by mouth 2 (two) times daily with meals. [facility] metFORMIN 500 mg 24 hr tablet 0 07-01 00:00: 00 Yes [id number] 1000mg Take 2 tablets by mouth 2 (two) times daily with meals. [facility] metFORMIN 500 mg 24 hr tablet 2021-0 07-01 00:00: 00 05-17 00:00 :00 No [id number] 1000mg Take 2 tablets by mouth 2 (two) times daily with meals. [facility] metFORMIN 500 mg 24 hr tablet 2021-0 07-01 00:00: 00 05-17 00:00 :00 No [id number] 1000mg Take 2 tablets by mouth 2 (two) times daily with meals. [facility] blood sugar diagnostic (ONETOUCH VERIO TEST STRIPS) strip 0 07-01 00:00: 00 07-04 00:00 :00 No [id number] Use 4 times daily. Dx E11.8 [facility] blood sugar diagnostic (ONETOUCH VERIO TEST STRIPS) strip 07-01 00:00: 00 07-04 00:00 :00 No [id number] Use 4 times daily. Dx E11.8 [facility] Insulin [place], Disposable, (PEN NEEDLE) 31 gauge x 5/16" Ndle 07-01 00:00: 00 07-02 00:00 :00 No [id number] Use as directed [facility] Insulin [place], Disposable, (PEN NEEDLE) 31 gauge x 5/16" Ndle 07-01 00:00: 00 07-02 00:00 :00 No [id number] Use as directed [facility] bromphenira mine-pseudo ephedrine-D M (BROMFED DM) 2-30-10 mg/5 mL syrup 05-22 00:00: 00 Yes [id number] 5mL Take 5 mL by mouth 4 (four) times daily as needed for Congestion /Allergies , Cold symptoms or Cough. [facility] acetaminoph en 500 mg tablet 05-22 00:00: 00 Yes [id number] 1000mg Take 2 tablets by mouth every 8 (eight) hours as needed for Pain or Fever. [facility] azithromyci n 250 mg tablet 05-22 00:00: 00 Yes [id number] 250mg Take 1 tablet by mouth daily. 2 tablets day 1, then 1 tablet days 2-5 [facility] bromphenira mine-pseudo ephedrine-D M (BROMFED DM) 2-30-10 mg/5 mL syrup 0 05-22 00:00: 00 Yes [id number] 5mL Take 5 mL by mouth 4 (four) times daily as needed for Congestion /Allergies , Cold symptoms or Cough. [facility] acetaminoph en 500 mg tablet 2021-05-22 00:00: 00 Yes [id number] 1000mg Take 2 tablets by mouth every 8 (eight) hours as needed for Pain or Fever. [facility] azithromyci n 250 mg tablet 2021-05-22 00:00: 00 Yes [id number] 250mg Take 1 tablet by mouth daily. 2 tablets day 1, then 1 tablet days 2-5 [facility] bromphenira mine-pseudo ephedrine-D M (BROMFED DM) 2-30-10 mg/5 mL syrup 2021-0 05-22 00:00: 00 Yes [id number] 5mL Take 5 mL by mouth 4 (four) times daily as needed for Congestion /Allergies , Cold symptoms or Cough. [facility] acetaminoph en 500 mg tablet 05-22 00:00: 00 Yes [id number] 1000mg Take 2 tablets by mouth every 8 (eight) hours as needed for Pain or Fever. [facility] azithromyci n 250 mg tablet 05-22 00:00: 00 Yes [id number] 250mg Take 1 tablet by mouth daily. 2 tablets day 1, then 1 tablet days 2-5 [facility] bromphenira mine-pseudo ephedrine-D M (BROMFED DM) 2-30-10 mg/5 mL syrup 0 05-22 00:00: 00 Yes [id number] 5mL Take 5 mL by mouth 4 (four) times daily as needed for Congestion /Allergies , Cold symptoms or Cough. [facility] acetaminoph en 500 mg tablet 05-22 00:00: 00 Yes [id number] 1000mg Take 2 tablets by mouth every 8 (eight) hours as needed for Pain or Fever. [facility] [facility] 250 mg tablet 05-22 00:00: 00 Yes [id number] 250mg Take 1 tablet by mouth daily. 2 tablets day 1, then 1 tablet days 2-5 [facility] bromphenira mine-pseudo ephedrine-D M (BROMFED DM) 2-30-10 mg/5 mL syrup 0 05-22 00:00: 00 Yes [id number] 5mL Take 5 mL by mouth 4 (four) times daily as needed for Congestion /Allergies , Cold symptoms or Cough. [facility] acetaminoph en 500 mg tablet 2021-0 05-22 00:00: 00 Yes [id number] 1000mg Take 2 tablets by mouth every 8 (eight) hours as needed for Pain or Fever. [facility] azithromyci n 250 mg tablet 05-22 00:00: 00 Yes [id number] 250mg Take 1 tablet by mouth daily. 2 tablets day 1, then 1 tablet days 2-5 [facility] bromphenira mine-pseudo ephedrine-D M (BROMFED DM) 2-30-10 mg/5 mL syrup 05-22 00:00: 00 Yes [id number] 5mL Take 5 mL by mouth 4 (four) times daily as needed for Congestion /Allergies , Cold symptoms or Cough. [facility] acetaminoph en 500 mg tablet 05-22 00:00: 00 Yes [id number] 1000mg Take 2 tablets by mouth every 8 (eight) hours as needed for Pain or Fever. [facility] azithromyci n 250 mg tablet 05-22 00:00: 00 Yes [id number] 250mg Take 1 tablet by mouth daily. 2 tablets day 1, then 1 tablet days 2-5 [facility] bromphenira mine-pseudo ephedrine-D M (BROMFED DM) 2-30-10 mg/5 mL syrup 05-22 00:00: 00 Yes [id number] 5mL Take 5 mL by mouth 4 (four) times daily as needed for Congestion /Allergies , Cold symptoms or Cough. [facility] acetaminoph en 500 mg tablet 05-22 00:00: 00 Yes [id number] 1000mg Take 2 tablets by mouth every 8 (eight) hours as needed for Pain or Fever. [facility] azithromyci n 250 mg tablet 05-22 00:00: 00 Yes [id number] 250mg Take 1 tablet by mouth daily. 2 tablets day 1, then 1 tablet days 2-5 [facility] bromphenira mine-pseudo ephedrine-D M (BROMFED DM) 2-30-10 mg/5 mL syrup 2021-0 13 00:00: 00 Yes [id number] 5mL Take 5 mL by mouth 4 (four) times daily as needed for Congestion /Allergies , Cold symptoms or Cough. [facility] acetaminoph en 500 mg tablet 05-22 00:00: 00 Yes [id number] 1000mg Take 2 tablets by mouth every 8 (eight) hours as needed for Pain or Fever. [facility] azithromyci n 250 mg tablet 05-22 00:00: 00 Yes [id number] 250mg Take 1 tablet by mouth daily. 2 tablets day 1, then 1 tablet days 2-5 [facility] bromphenira mine-pseudo ephedrine-D M (BROMFED DM) 2-30-10 mg/5 mL syrup 05-22 00:00: 00 Yes [id number] 5mL Take 5 mL by mouth 4 (four) times daily as needed for Congestion /Allergies , Cold symptoms or Cough. [facility] acetaminoph en 500 mg tablet 05-22 00:00: 00 Yes [id number] 1000mg Take 2 tablets by mouth every 8 (eight) hours as needed for Pain or Fever. [facility] azithromyci n 250 mg tablet 05-22 00:00: 00 Yes [id number] 250mg Take 1 tablet by mouth daily. 2 tablets day 1, then 1 tablet days 2-5 [facility] bromphenira mine-pseudo ephedrine-D M (BROMFED DM) 2-30-10 mg/5 mL syrup 0 05-22 00:00: 00 Yes [id number] 5mL Take 5 mL by mouth 4 (four) times daily as needed for Congestion /Allergies , Cold symptoms or Cough. [facility] acetaminoph en 500 mg tablet 05-22 00:00: 00 Yes [id number] 1000mg Take 2 tablets by mouth every 8 (eight) hours as needed for Pain or Fever. [facility] azithromyci n 250 mg tablet 05-22 00:00: 00 Yes [id number] 250mg Take 1 tablet by mouth daily. 2 tablets day 1, then 1 tablet days 2-5 [facility] bromphenira mine-pseudo ephedrine-D M (BROMFED DM) 2-30-10 mg/5 mL syrup 05-22 00:00: 00 Yes [id number] 5mL Take 5 mL by mouth 4 (four) times daily as needed for Congestion /Allergies , Cold symptoms or Cough. [facility] acetaminoph en 500 mg tablet 05-22 00:00: 00 Yes [id number] 1000mg Take 2 tablets by mouth every 8 (eight) hours as needed for Pain or Fever. [facility] azithromyci n 250 mg tablet 05-22 00:00: 00 Yes [id number] 250mg Take 1 tablet by mouth daily. 2 tablets day 1, then 1 tablet days 2-5 [facility] bromphenira mine-pseudo ephedrine-D M (BROMFED DM) 2-30-10 mg/5 mL syrup 05-22 00:00: 00 Yes [id number] 5mL Take 5 mL by mouth 4 (four) times daily as needed for Congestion /Allergies , Cold symptoms or Cough. [facility] acetaminoph en 500 mg tablet 05-22 00:00: 00 Yes [id number] 1000mg Take 2 tablets by mouth every 8 (eight) hours as needed for Pain or Fever. [facility] azithromyci n 250 mg tablet 05-22 00:00: 00 Yes [id number] 250mg Take 1 tablet by mouth daily. 2 tablets day 1, then 1 tablet days 2-5 [facility] bromphenira mine-pseudo ephedrine-D M (BROMFED DM) 2-30-10 mg/5 mL syrup 05-22 00:00: 00 Yes [id number] 5mL Take 5 mL by mouth 4 (four) times daily as needed for Congestion /Allergies , Cold symptoms or Cough. [facility] acetaminoph en 500 mg tablet 05-22 00:00: 00 Yes [id number] 1000mg Take 2 tablets by mouth every 8 (eight) hours as needed for Pain or Fever. [facility] azithromyci n 250 mg tablet 05-22 00:00: 00 Yes [id number] 250mg Take 1 tablet by mouth daily. 2 tablets day 1, then 1 tablet days 2-5 [facility] bromphenira mine-pseudo ephedrine-D M (BROMFED DM) 2-30-10 mg/5 mL syrup 2021-0 05-22 00:00: 00 Yes [id number] 5mL Take 5 mL by mouth 4 (four) times daily as needed for Congestion /Allergies , Cold symptoms or Cough. [facility] acetaminoph en 500 mg tablet 05-22 00:00: 00 Yes [id number] 1000mg Take 2 tablets by mouth every 8 (eight) hours as needed for Pain or Fever. [facility] azithromyci n 250 mg tablet 05-22 00:00: 00 Yes [id number] 250mg Take 1 tablet by mouth daily. 2 tablets day 1, then 1 tablet days 2-5 [facility] bromphenira mine-pseudo ephedrine-D M (BROMFED DM) 2-30-10 mg/5 mL syrup 0 05-22 00:00: 00 Yes [id number] 5mL Take 5 mL by mouth 4 (four) times daily as needed for Congestion /Allergies , Cold symptoms or Cough. [facility] acetaminoph en 500 mg tablet 05-22 00:00: 00 Yes [id number] 1000mg Take 2 tablets by mouth every 8 (eight) hours as needed for Pain or Fever. [facility] azithromyci n 250 mg tablet 05-22 00:00: 00 Yes [id number] 250mg Take 1 tablet by mouth daily. 2 tablets day 1, then 1 tablet days 2-5 [facility] bromphenira mine-pseudo ephedrine-D M (BROMFED DM) 2-30-10 mg/5 mL syrup 2021-0 05-22 00:00: 00 Yes [id number] 5mL Take 5 mL by mouth 4 (four) times daily as needed for Congestion /Allergies , Cold symptoms or Cough. [facility] acetaminoph en 500 mg tablet 2021-05-22 00:00: 00 Yes [id number] 1000mg Take 2 tablets by mouth every 8 (eight) hours as needed for Pain or Fever. [facility] azithromyci n 250 mg tablet 0 05-22 00:00: 00 Yes [id number] 250mg Take 1 tablet by mouth daily. 2 tablets day 1, then 1 tablet days 2-5 [facility] bromphenira mine-pseudo ephedrine-D M (BROMFED DM) 2-30-10 mg/5 mL syrup 2021-0 13 00:00: 00 Yes [id number] 5mL Take 5 mL by mouth 4 (four) times daily as needed for Congestion /Allergies , Cold symptoms or Cough. [facility] acetaminoph en 500 mg tablet 05-22 00:00: 00 Yes [id number] 1000mg Take 2 tablets by mouth every 8 (eight) hours as needed for Pain or Fever. [facility] azithromyci n 250 mg tablet 05-22 00:00: 00 Yes [id number] 250mg Take 1 tablet by mouth daily. 2 tablets day 1, then 1 tablet days 2-5 [facility] bromphenira mine-pseudo ephedrine-D M (BROMFED DM) 2-30-10 mg/5 mL syrup 0 05-22 00:00: 00 Yes [id number] 5mL Take 5 mL by mouth 4 (four) times daily as needed for Congestion /Allergies , Cold symptoms or Cough. [facility] acetaminoph en 500 mg tablet 05-22 00:00: 00 Yes [id number] 1000mg Take 2 tablets by mouth every 8 (eight) hours as needed for Pain or Fever. [facility] azithromyci n 250 mg tablet 05-22 00:00: 00 Yes [id number] 250mg Take 1 tablet by mouth daily. 2 tablets day 1, then 1 tablet days 2-5 [facility] acetaminoph en 500 mg tablet 0 05-22 00:00: 00 Yes [id number] 1000mg Take 2 tablets by mouth every 8 (eight) hours as needed for Pain or Fever. [facility] acetaminoph en 500 mg tablet 2021-0 05-22 00:00: 00 Yes [id number] 1000mg Take 2 tablets by mouth every 8 (eight) hours as needed for Pain or Fever. [facility] tablet 2022-0 4-13 00:00: 00 Yes [id number] 1000mg Take 2 tablets by mouth every 8 (eight) hours as needed for Pain or Fever. [facility] acet[facility]oph en 500 mg tablet 2022-0 4-13 00:00: 00 Yes [id number] 1000mg Take 2 tablets by mouth every 8 (eight) hours as needed for Pain or Fever. [facility] acetaminoph en 500 mg tablet 2022-0 4-13 00:00: 00 Yes [id number] 1000mg Take 2 tablets by mouth every 8 (eight) hours as needed for Pain or Fever. [facility] acetaminoph en 500 mg tablet 2-0 4-13 00:00: 00 Yes [id number] 1000mg Take 2 tablets by mouth every 8 (eight) hours as needed for Pain or Fever. [facility] acetaminoph en 500 mg tablet 2022-0 4-13 00:00: 00 Yes [id number] 1000mg Take 2 tablets by mouth every 8 (eight) hours as needed for Pain or Fever. [facility] acetaminoph en 500 mg tablet 2-0 -13 00:00: 00 Yes [id number] 1000mg Take 2 tablets by mouth every 8 (eight) hours as needed for Pain or Fever. [facility] 2022-0 4-13 00:00: 00 Yes [id number] 1000mg Take 2 tablets by mouth every 8 (eight) hours as needed for Pain or Fever. [facility] acetaminoph en 500 mg tablet 2-0 4-13 00:00: 00 Yes [id number] 1000mg Take 2 tablets by mouth every 8 (eight) hours as needed for Pain or Fever. [facility] acetaminoph en 500 mg tablet 2-0 4-13 00:00: 00 Yes [id number] 1000mg Take 2 tablets by mouth every 8 (eight) hours as needed for Pain or Fever. [facility] mg tablet 2022-0 4-13 00:00: 00 Yes [id number] 1000mg Take 2 tablets by mouth every 8 (eight) hours as needed for Pain or Fever. [facility] acetaminoph en 500 mg tablet 2-0 4-13 00:00: 00 Yes [id number] 1000mg Take 2 tablets by mouth every 8 (eight) hours as needed for Pain or Fever. [facility] acetaminoph en 500 mg tablet 2022-0 4-13 00:00: 00 Yes [id number] 1000mg Take 2 tablets by mouth every 8 (eight) hours as needed for Pain or Fever. [facility] acetaminoph en 500 mg tablet 2-0 4-13 00:00: 00 Yes [id number] 1000mg Take 2 tablets by mouth every 8 (eight) hours as needed for Pain or Fever. [facility] acetaminoph en 500 mg tablet 2-0 4-13 00:00: 00 Yes [id number] 1000mg Take 2 tablets by mouth every 8 (eight) hours as needed for Pain or Fever. [facility] acetaminoph en 500 mg tablet 2-0 -13 00:00: 00 Yes [id number] 1000mg Take 2 tablets by mouth every 8 (eight) hours as needed for Pain or Fever. [facility] acetaminoph en 500 mg tablet 2-0 -13 00:00: 00 Yes [id number] 1000mg Take 2 tablets by mouth every 8 (eight) hours as needed for Pain or Fever. [facility] acetaminoph en 500 mg tablet 2-0 4-13 00:00: 00 Yes [id number] 1000mg Take 2 tablets by mouth every 8 (eight) hours as needed for Pain or Fever. [facility] acetaminoph en 500 mg tablet 2-0 4-13 00:00: 00 Yes [id number] 1000mg Take 2 tablets by mouth every 8 (eight) hours as needed for Pain or Fever. [facility] acet[facility]oph en 500 mg tablet 2022-0 4-13 00:00: 00 Yes [id number] 1000mg Take 2 tablets by mouth every 8 (eight) hours as needed for Pain or Fever. [facility] acetaminoph en 500 mg tablet 2022-0 4-13 00:00: 00 Yes [id number] 1000mg Take 2 tablets by mouth every 8 (eight) hours as needed for Pain or Fever. [facility] acetaminoph en 500 mg tablet 2-0 4-13 00:00: 00 Yes [id number] 1000mg Take 2 tablets by mouth every 8 (eight) hours as needed for Pain or Fever. [facility] acetaminoph en 500 mg tablet 2-0 4-13 00:00: 00 Yes [id number] 1000mg Take 2 tablets by mouth every 8 (eight) hours as needed for Pain or Fever. [facility] acetaminoph en 500 mg tablet 2-0 4-13 00:00: 00 Yes [id number] 1000mg Take 2 tablets by mouth every 8 (eight) hours as needed for Pain or Fever. [facility] acetaminoph en 500 mg tablet 2-0 -13 00:00: 00 Yes [id number] 1000mg Take 2 tablets by mouth every 8 (eight) hours as needed for Pain or Fever. [facility] acetaminoph en 500 mg tablet 2-0 -13 00:00: 00 Yes [id number] 1000mg Take 2 tablets by mouth every 8 (eight) hours as needed for Pain or Fever. [facility] acetaminoph en 500 mg tablet 2-0 -13 00:00: 00 Yes [id number] 1000mg Take 2 tablets by mouth every 8 (eight) hours as needed for Pain or Fever. [facility] acet[facility]oph en 500 mg tablet 2-0 -13 00:00: 00 Yes [id number] 1000mg Take 2 tablets by mouth every 8 (eight) hours as needed for Pain or Fever. [facility] acetaminoph en 500 mg tablet 2022-0 4-13 00:00: 00 Yes [id number] 1000mg Take 2 tablets by mouth every 8 (eight) hours as needed for Pain or Fever. [facility] acetaminoph en 500 mg tablet 2-0 4-13 00:00: 00 Yes [id number] 1000mg Take 2 tablets by mouth every 8 (eight) hours as needed for Pain or Fever. [facility] acetaminoph en 500 mg tablet 4- 00:00: 00 Yes [id number] 1000mg Take 2 tablets by mouth every 8 (eight) hours as needed for Pain or Fever. [facility] acetaminoph en 500 mg tablet 4- 00:00: 00 05-23 00:00 :00 No [id number] 1000mg Take 2 tablets by mouth every 8 (eight) hours as needed for Pain or Fever. [facility] acetaminoph en 500 mg tablet - 00:00: 00 05-23 00:00 :00 No [id number] 1000mg Take 2 tablets by mouth every 8 (eight) hours as needed for Pain or Fever. [facility] acetaminoph en 500 mg tablet 05-22 00:00: 00 05-23 00:00 :00 No [id number] 1000mg Take 2 tablets by mouth every 8 (eight) hours as needed for Pain or Fever. [facility] bromphenira mine-pseudo ephedrine-D M (BROMFED DM) 2-30-10 mg/5 mL syrup 05-22 00:00: 00 02-12 00:00 :00 No [id number] 5mL Take 5 mL by mouth 4 (four) times daily as needed for Congestion /Allergies , Cold symptoms or Cough. [facility] azithromyci n 250 mg tablet 05-22 00:00: 00 02-12 00:00 :00 No [id number] 250mg Take 1 tablet by mouth daily. 2 tablets day 1, then 1 tablet days 2-5 [facility] bromphenira mine-pseudo ephedrine-D M (BROMFED DM) 2-30-10 mg/5 mL syrup 05-22 00:00: 00 02-12 00:00 :00 No [id number] 5mL Take 5 mL by mouth 4 (four) times daily as needed for Congestion /Allergies , Cold symptoms or Cough. [facility] azithromyci n 250 mg tablet 05-22 00:00: 00 02-12 00:00 :00 No [id number] 250mg Take 1 tablet by mouth daily. 2 tablets day 1, then 1 tablet days 2-5 [facility] bromphenira mine-pseudo ephedrine-D M (BROMFED DM) 2-30-10 mg/5 mL syrup 2021-0 4-13 00:00: 00 02-12 00:00 :00 No [id number] 5mL Take 5 mL by mouth 4 (four) times daily as needed for Congestion /Allergies , Cold symptoms or Cough. [facility] azithromyci n 250 mg tablet 4-13 00:00: 00 02-12 00:00 :00 No [id number] 250mg Take 1 tablet by mouth daily. 2 tablets day 1, then 1 tablet days 2-5 [facility] bromphenira mine-pseudo ephedrine-D M (BROMFED DM) 2-30-10 mg/5 mL syrup -13 00:00: 00 02-12 00:00 :00 No [id number] 5mL Take 5 mL by mouth 4 (four) times daily as needed for Congestion /Allergies , Cold symptoms or Cough. [facility] azithromyci n 250 mg tablet -13 00:00: 00 02-12 00:00 :00 No [id number] 250mg Take 1 tablet by mouth daily. 2 tablets day 1, then 1 tablet days 2-5 [facility] bromphenira mine-pseudo ephedrine-D M (BROMFED DM) 2-30-10 mg/5 mL syrup 0 4-13 00:00: 00 02-12 00:00 :00 No [id number] 5mL Take 5 mL by mouth 4 (four) times daily as needed for Congestion /Allergies , Cold symptoms or Cough. [facility] azithromyci n 250 mg tablet 4-13 00:00: 00 02-12 00:00 :00 No [id number] 250mg Take 1 tablet by mouth daily. 2 tablets day 1, then 1 tablet days 2-5 [facility] insulin degludec-li raglutide (XULTOPHY 100/3.6) 100 unit-3.6 mg /mL (3 mL) In 05-01 00:00: 00 Yes [id number] 50U inject 50 Units under the skin daily. [facility] insulin degludec-li raglutide (XULTOPHY 100/3.6) 100 unit-3.6 mg /mL (3 mL) In 05-01 00:00: 00 Yes [id number] 50U inject 50 Units under the skin daily. [facility] insulin degludec-li raglutide (XULTOPHY 100/3.6) 100 unit-3.6 mg /mL (3 mL) In 05-01 00:00: 00 Yes [id number] 50U inject 50 Units under the skin daily. [facility] insulin degludec-li raglutide (XULTOPHY 100/3.6) 100 unit-3.6 mg /mL (3 mL) In 05-01 00:00: 00 Yes [id number] 50U inject 50 Units under the skin daily. [facility] insulin degludec-li raglutide (XULTOPHY 100/3.6) 100 unit-3.6 mg /mL (3 mL) In 05-01 00:00: 00 Yes [id number] 50U inject 50 Units under the skin daily. [facility] insulin degludec-li raglutide (XULTOPHY 100/3.6) 100 unit-3.6 mg /mL (3 mL) [facility] 05-01 00:00: 00 Yes [id number] 50U inject 50 Units under the skin daily. [facility] insulin degludec-li raglutide (XULTOPHY 100/3.6) 100 unit-3.6 mg /mL (3 mL) [facility] 05-01 00:00: 00 01-28 00:00 :00 No [id number] 50U inject 50 Units under the skin daily. [facility] insulin degludec-li raglutide (XULTOPHY 100/3.6) 100 unit-3.6 mg /mL (3 mL) InPn -23 00:00: 00 01-28 00:00 :00 No [id number] 50U inject 50 Units under the skin daily. [facility] Nitrofurant oin&Nit. Macrocryst (MACROBID) 100 mg capsule 04-06 00:00: 00 Yes [id number] 100mg Take 1 capsule by mouth 2 (two) times daily. [facility] Nitrofurant oin&Nit. Macrocryst (MACROBID) 100 mg capsule 04-06 00:00: 00 Yes [id number] 100mg Take 1 capsule by mouth 2 (two) times daily. [facility] Nitrofurant oin&Nit. Macrocryst (MACROBID) 100 mg capsule 04-06 00:00: 00 Yes [id number] 100mg Take 1 capsule by mouth 2 (two) times daily. [facility] Nitrofurant oin&Nit. Macrocryst (MACROBID) 100 mg capsule 04-06 00:00: 00 Yes [id number] 100mg Take 1 capsule by mouth 2 (two) times daily. [facility] Nitrofurant oin&Nit. Macrocryst (MACROBID) 100 mg capsule 04-06 00:00: 00 Yes [id number] 100mg Take 1 capsule by mouth 2 (two) times daily. [facility] Nitrofurant oin&Nit. Macrocryst (MACROBID) 100 mg capsule 04-06 00:00: 00 Yes [id number] 100mg Take 1 capsule by mouth 2 (two) times daily. [facility] Nitrofurant oin&Nit. Macrocryst (MACROBID) 100 mg capsule 04-06 00:00: 00 Yes [id number] 100mg Take 1 capsule by mouth 2 (two) times daily. [facility] Nitrofurant oin&Nit. Macrocryst (MACROBID) 100 mg capsule 04-06 00:00: 00 Yes [id number] 100mg Take 1 capsule by mouth 2 (two) times daily. [facility] Nitrofurant oin&Nit. Macrocryst (MACROBID) 100 mg capsule 04-06 00:00: 00 Yes [id number] 100mg Take 1 capsule by mouth 2 (two) times daily. [facility] Nitrofurant oin&Nit. Macrocryst (MACROBID) 100 mg capsule 2021-0 04-06 00:00: 00 Yes [id number] 100mg Take 1 capsule by mouth 2 (two) times daily. [facility] Nitrofurant oin&Nit. Macrocryst (MACROBID) 100 mg capsule 04-06 00:00: 00 Yes [id number] 100mg Take 1 capsule by mouth 2 (two) times daily. [facility] Nitrofurant oin&Nit. Macrocryst (MACROBID) 100 mg capsule 04-06 00:00: 00 Yes [id number] 100mg Take 1 capsule by mouth 2 (two) times daily. [facility] Nitrofurant oin&Nit. Macrocryst (MACROBID) 100 mg capsule 04-06 00:00: 00 Yes [id number] 100mg Take 1 capsule by mouth 2 (two) times daily. [facility] Nitrofurant oin&Nit. Macrocryst (MACROBID) 100 mg capsule 2021-04-06 00:00: 00 Yes [id number] 100mg Take 1 capsule by mouth 2 (two) times daily. [facility] Nitrofurant oin&Nit. Macrocryst (MACROBID) 100 mg capsule 0 04-06 00:00: 00 Yes [id number] 100mg Take 1 capsule by mouth 2 (two) times daily. [facility] Nitrofurant oin&Nit. Macrocryst (MACROBID) 100 mg capsule 2021-0 04-06 00:00: 00 Yes [id number] 100mg Take 1 capsule by mouth 2 (two) times daily. [facility] Nitrofurant oin&Nit. Macrocryst (MACROBID) 100 mg capsule 04-06 00:00: 00 Yes [id number] 100mg Take 1 capsule by mouth 2 (two) times daily. [facility] Nitrofurant oin&Nit. Macrocryst (MACROBID) 100 mg capsule 04-06 00:00: 00 Yes [id number] 100mg Take 1 capsule by mouth 2 (two) times daily. [facility] Nitrofurant oin&Nit. Macrocryst (MACROBID) 100 mg capsule 04-06 00:00: 00 02-12 00:00 :00 No [id number] 100mg Take 1 capsule by mouth 2 (two) times daily. [facility] Nitrofurant oin&Nit. Macrocryst (MACROBID) 100 mg capsule 04-06 00:00: 00 02-12 00:00 :00 No [id number] 100mg Take 1 capsule by mouth 2 (two) times daily. [facility] Nitrofurant oin&Nit. Macrocryst (MACROBID) 100 mg capsule 04-06 00:00: 00 02-12 00:00 :00 No [id number] 100mg Take 1 capsule by mouth 2 (two) times daily. [facility] Nitrofurant oin&Nit. Macrocryst (MACROBID) 100 mg capsule 04-06 00:00: 00 02-12 00:00 :00 No [id number] 100mg Take 1 capsule by mouth 2 (two) times daily. [facility] Nitrofurant oin&Nit. Macrocryst (MACROBID) 100 mg capsule 04-06 00:00: 00 02-12 00:00 :00 No [id number] 100mg Take 1 capsule by mouth 2 (two) times daily. [facility] insulin syr/ndl U100 half melvin 0.5 mL 31 gauge x 5/16" Syrg 04-05 00:00: 00 Yes [id number] 1{each} 1 Each 4 (four) times daily. Use with insulin 4 times daily. Dx E11.8 [facility] insulin aspart RAPID (NOVOLOG U-100 INSULIN ASPART) 100 unit/mL injection 2-25 00:00: 00 Yes [id number] 15U inject 15 Units under the skin 3 (three) times daily before meals. [facility] [facility] (ONE TOUCH DELICA) 33 gauge Misc 2-25 00:00: 00 Yes [id number] Use 4 times daily. Dx E11.8 [facility] insulin syr/ndl U100 half melvin 0.5 mL 31 gauge x 5/16" Syrg 2-25 00:00: 00 Yes [id number] 1{each} 1 Each 4 (four) times daily. Use with insulin 4 times daily. Dx E11.8 [facility] insulin aspart RAPID (NOVOLOG U-100 INSULIN ASPART) 100 unit/mL injection 2-25 00:00: 00 Yes [id number] 15U inject 15 Units under the skin 3 (three) times daily before meals. [facility] lancets (ONE TOUCH DELICA) 33 gauge Misc 2-25 00:00: 00 Yes [id number] Use 4 times daily. Dx E11.8 [facility] insulin syr/ndl U100 half melvin 0.5 mL 31 gauge x 5/16" Syrg 2-25 00:00: 00 Yes [id number] 1{each} 1 Each 4 (four) times daily. Use with insulin 4 times daily. Dx E11.8 [facility] insulin aspart RAPID (NOVOLOG U-100 INSULIN ASPART) 100 unit/mL injection 2-25 00:00: 00 Yes [id number] 15U inject 15 Units under the skin 3 (three) times daily before meals. [facility] lancets (ONE TOUCH DELICA) 33 gauge Misc 2-25 00:00: 00 Yes [id number] Use 4 times daily. Dx E11.8 [facility] insulin syr/ndl U100 half melvin 0.5 mL 31 gauge x 5/16" Syrg 2-25 00:00: 00 Yes [id number] 1{each} 1 Each 4 (four) times daily. Use with insulin 4 times daily. Dx E11.8 [facility] insulin aspart RAPID (NOVOLOG U-100 INSULIN ASPART) 100 unit/mL injection 2-25 00:00: 00 Yes [id number] 15U inject 15 Units under the skin 3 (three) times daily before meals. [facility] lancets (ONE TOUCH DELICA) 33 gauge Misc 0 2-25 00:00: 00 Yes [id number] Use 4 times daily. Dx E11.8 [facility] insulin syr/ndl U100 half melvin 0.5 mL 31 gauge x 5/16" Syrg 2-25 00:00: 00 Yes [id number] 1{each} 1 Each 4 (four) times daily. Use with insulin 4 times daily. Dx E11.8 [facility] insulin aspart RAPID (NOVOLOG U-100 INSULIN ASPART) 100 unit/mL injection 225 00:00: 00 Yes [id number] 15U inject 15 Units under the skin 3 (three) times daily before meals. [facility] lancets (ONE TOUCH DELICA) 33 gauge Misc 2-25 00:00: 00 Yes [id number] Use 4 times daily. Dx E11.8 [facility] insulin syr/ndl U100 half melvin 0.5 mL 31 gauge x 5/16" Syrg 2-25 00:00: 00 Yes [id number] 1{each} 1 Each 4 (four) times daily. Use with insulin 4 times daily. Dx E11.8 [facility] insulin aspart RAPID (NOVOLOG U-100 INSULIN ASPART) 100 unit/mL injection 2-25 00:00: 00 Yes [id number] 15U inject 15 Units under the skin 3 (three) times daily before meals. [facility] lancets (ONE TOUCH DELICA) 33 gauge Misc 0 2-25 00:00: 00 Yes [id number] Use 4 times daily. Dx E11.8 [facility] lancets (ONE TOUCH DELICA) 33 gauge Misc 2021-0 2-25 00:00: 00 Yes [id number] Use 4 times daily. Dx E11.8 [facility] lancets (ONE TOUCH DELICA) 33 gauge Misc 2022-0 2-25 00:00: 00 Yes [id number] Use 4 times daily. Dx E11.8 [facility] lancets (ONE TOUCH DELICA) 33 gauge Misc 2022-0 2-25 00:00: 00 Yes [id number] Use 4 times daily. Dx E11.8 [facility] lancets (ONE TOUCH DELICA) 33 gauge Misc 2022-0 2-25 00:00: 00 Yes [id number] Use 4 times daily. Dx E11.8 [facility] lancets (ONE TOUCH DELICA) 33 gauge Misc 2022-0 2-25 00:00: 00 Yes [id number] Use 4 times daily. Dx E11.8 [facility] lancets (ONE TOUCH DELICA) 33 gauge Misc 2022-0 2-25 00:00: 00 Yes [id number] Use 4 times daily. Dx E11.8 [facility] lancets (ONE TOUCH DELICA) 33 gauge Misc 2022-0 2-25 00:00: 00 Yes [id number] Use 4 times daily. Dx E11.8 [facility] lancets (ONE TOUCH DELICA) 33 gauge Misc 2022-0 2-25 00:00: 00 Yes [id number] Use 4 times daily. Dx E11.8 [facility] lancets (ONE TOUCH DELICA) 33 gauge Misc 2022-0 2-25 00:00: 00 Yes [id number] Use 4 times daily. Dx E11.8 [facility] lancets (ONE TOUCH DELICA) 33 gauge Misc 2022-0 2-25 00:00: 00 Yes [id number] Use 4 times daily. Dx E11.8 [facility] lancets (ONE TOUCH DELICA) 33 gauge Misc 2022-0 2-25 00:00: 00 Yes [id number] Use 4 times daily. Dx E11.8 [facility] lancets (ONE TOUCH DELICA) 33 gauge Misc 2022-0 2-25 00:00: 00 Yes [id number] Use 4 times daily. Dx E11.8 [facility] lancets (ONE TOUCH DELICA) 33 gauge Misc 2022-0 2-25 00:00: 00 Yes [id number] Use 4 times daily. Dx E11.8 [facility] lancets (ONE TOUCH DELICA) 33 gauge Misc 2022-0 2-25 00:00: 00 Yes [id number] Use 4 times daily. Dx E11.8 [facility] lancets (ONE TOUCH DELICA) 33 gauge Misc 2022-0 2-25 00:00: 00 Yes [id number] Use 4 times daily. Dx E11.8 [facility] lancets (ONE TOUCH DELICA) 33 gauge Misc 2022-0 2-25 00:00: 00 Yes [id number] Use 4 times daily. Dx E11.8 [facility] lancets (ONE TOUCH DELICA) 33 gauge Misc 2022-0 2-25 00:00: 00 Yes [id number] Use 4 times daily. Dx E11.8 [facility] lancets (ONE TOUCH DELICA) 33 gauge Misc 2022-0 2-25 00:00: 00 Yes [id number] Use 4 times daily. Dx E11.8 [facility] lancets (ONE TOUCH DELICA) 33 gauge Misc 2022-0 2-25 00:00: 00 Yes [id number] Use 4 times daily. Dx E11.8 [facility] lancets (ONE TOUCH DELICA) 33 gauge Misc 2022-0 2-25 00:00: 00 Yes [id number] Use 4 times daily. Dx E11.8 [facility] lancets (ONE TOUCH DELICA) 33 gauge Misc 2022-0 2-25 00:00: 00 Yes [id number] Use 4 times daily. Dx E11.8 [facility] lancets (ONE TOUCH DELICA) 33 gauge Misc 2022-0 2-25 00:00: 00 Yes [id number] Use 4 times daily. Dx E11.8 [facility] lancets (ONE TOUCH DELICA) 33 gauge Misc 2022-0 2-25 00:00: 00 Yes [id number] Use 4 times daily. Dx E11.8 [facility] lancets (ONE TOUCH DELICA) 33 gauge Misc 2022-0 2-25 00:00: 00 Yes [id number] Use 4 times daily. Dx E11.8 [facility] lancets (ONE TOUCH DELICA) 33 gauge Misc 2022-0 2-25 00:00: 00 Yes [id number] Use 4 times daily. Dx E11.8 [facility] lancets (ONE TOUCH DELICA) 33 gauge Misc 2022-0 2-25 00:00: 00 Yes [id number] Use 4 times daily. Dx E11.8 [facility] lancets (ONE TOUCH DELICA) 33 gauge Misc 2022-0 2-25 00:00: 00 Yes [id number] Use 4 times daily. Dx E11.8 [facility] lancets (ONE TOUCH DELICA) 33 gauge Misc 2022-0 2-25 00:00: 00 Yes [id number] Use 4 times daily. Dx E11.8 [facility] lancets (ONE TOUCH DELICA) 33 gauge Misc 2022-0 2-25 00:00: 00 Yes [id number] Use 4 times daily. Dx E11.8 [facility] lancets (ONE TOUCH DELICA) 33 gauge Misc 2022-0 2-25 00:00: 00 Yes [id number] Use 4 times daily. Dx E11.8 [facility] lancets (ONE TOUCH DELICA) 33 gauge Misc 2022-0 2-25 00:00: 00 Yes [id number] Use 4 times daily. Dx E11.8 [facility] lancets (ONE TOUCH DELICA) 33 gauge Misc 2022-0 2-25 00:00: 00 Yes [id number] Use 4 times daily. Dx E11.8 [facility] lancets (ONE TOUCH DELICA) 33 gauge Misc 2022-0 2-25 00:00: 00 Yes [id number] Use 4 times daily. Dx E11.8 [facility] lancets (ONE TOUCH DELICA) 33 gauge Misc 2022-0 2-25 00:00: 00 Yes [id number] Use 4 times daily. Dx E11.8 [facility] lancets (ONE TOUCH DELICA) 33 gauge Misc 2022-0 2-25 00:00: 00 Yes [id number] Use 4 times daily. Dx E11.8 [facility] lancets (ONE TOUCH DELICA) 33 gauge Misc 2022-0 2-25 00:00: 00 Yes [id number] Use 4 times daily. Dx E11.8 [facility] lancets (ONE TOUCH DELICA) 33 gauge Misc 2022-0 2-25 00:00: 00 Yes [id number] Use 4 times daily. Dx E11.8 [facility] lancets (ONE TOUCH DELICA) 33 gauge Misc 2022-0 2-25 00:00: 00 Yes [id number] Use 4 times daily. Dx E11.8 [facility] lancets (ONE TOUCH DELICA) 33 gauge Misc 2022-0 2-25 00:00: 00 Yes [id number] Use 4 times daily. Dx E11.8 [facility] lancets (ONE TOUCH DELICA) 33 gauge Misc 2022-0 2-25 00:00: 00 Yes [id number] Use 4 times daily. Dx E11.8 [facility] lancets (ONE TOUCH DELICA) 33 gauge Misc 2022-0 2-25 00:00: 00 Yes [id number] Use 4 times daily. Dx E11.8 [facility] lancets (ONE TOUCH DELICA) 33 gauge Misc 2022-0 2-25 00:00: 00 Yes [id number] Use 4 times daily. Dx E11.8 [facility] lancets (ONE TOUCH DELICA) 33 gauge Misc 2022-0 2-25 00:00: 00 Yes [id number] Use 4 times daily. Dx E11.8 [facility] lancets (ONE TOUCH DELICA) 33 gauge Misc 2022-0 2-25 00:00: 00 Yes [id number] Use 4 times daily. Dx E11.8 [facility] lancets (ONE TOUCH DELICA) 33 gauge Misc 2022-0 2-25 00:00: 00 Yes [id number] Use 4 times daily. Dx E11.8 [facility] lancets (ONE TOUCH DELICA) 33 gauge Misc 2022-0 2-25 00:00: 00 Yes [id number] Use 4 times daily. Dx E11.8 [facility] lancets (ONE TOUCH DELICA) 33 gauge Misc 2022-0 2-25 00:00: 00 Yes [id number] Use 4 times daily. Dx E11.8 [facility] lancets (ONE TOUCH DELICA) 33 gauge Misc 2022-0 2-25 00:00: 00 Yes [id number] Use 4 times daily. Dx E11.8 [facility] lancets (ONE TOUCH DELICA) 33 gauge Misc 2022-0 2-25 00:00: 00 Yes [id number] Use 4 times daily. Dx E11.8 [facility] lancets (ONE TOUCH DELICA) 33 gauge Misc 2022-0 2-25 00:00: 00 Yes [id number] Use 4 times daily. Dx E11.8 [facility] lancets (ONE TOUCH DELICA) 33 gauge Misc 2022-0 2-25 00:00: 00 Yes [id number] Use 4 times daily. Dx E11.8 [facility] lancets (ONE TOUCH DELICA) 33 gauge Misc 2022-0 2-25 00:00: 00 Yes [id number] Use 4 times daily. Dx E11.8 [facility] lancets (ONE TOUCH DELICA) 33 gauge Misc 2022-0 2-25 00:00: 00 Yes [id number] Use 4 times daily. Dx E11.8 [facility] lancets (ONE TOUCH DELICA) 33 gauge Misc 2022-0 2-25 00:00: 00 Yes [id number] Use 4 times daily. Dx E11.8 [facility] lancets (ONE TOUCH DELICA) 33 gauge Misc 2022-0 2-25 00:00: 00 Yes [id number] Use 4 times daily. Dx E11.8 [facility] lancets (ONE TOUCH DELICA) 33 gauge Misc 2022-0 2-25 00:00: 00 Yes [id number] Use 4 times daily. Dx E11.8 [facility] lancets (ONE TOUCH DELICA) 33 gauge Misc 2022-0 2-25 00:00: 00 Yes [id number] Use 4 times daily. Dx E11.8 [facility] lancets (ONE TOUCH DELICA) 33 gauge Misc 2022-0 2-25 00:00: 00 Yes [id number] Use 4 times daily. Dx E11.8 [facility] lancets (ONE TOUCH DELICA) 33 gauge Misc 2022-0 2-25 00:00: 00 Yes [id number] Use 4 times daily. Dx E11.8 [facility] lancets (ONE TOUCH DELICA) 33 gauge Misc 2022-0 2-25 00:00: 00 Yes [id number] Use 4 times daily. Dx E11.8 [facility] lancets (ONE TOUCH DELICA) 33 gauge Misc 2022-0 2-25 00:00: 00 Yes [id number] Use 4 times daily. Dx E11.8 [facility] lancets (ONE TOUCH DELICA) 33 gauge Misc 2022-0 2-25 00:00: 00 Yes [id number] Use 4 times daily. Dx E11.8 [facility] lancets (ONE TOUCH DELICA) 33 gauge Misc 2022-0 2-25 00:00: 00 Yes [id number] Use 4 times daily. Dx E11.8 [facility] lancets (ONE TOUCH DELICA) 33 gauge Misc 2022-0 2-25 00:00: 00 Yes [id number] Use 4 times daily. Dx E11.8 [facility] lancets (ONE TOUCH DELICA) 33 gauge Misc 2022-0 2-25 00:00: 00 Yes [id number] Use 4 times daily. Dx E11.8 [facility] lancets (ONE TOUCH DELICA) 33 gauge Misc 2022-0 2-25 00:00: 00 Yes [id number] Use 4 times daily. Dx E11.8 [facility] lancets (ONE TOUCH DELICA) 33 gauge Misc 2022-0 2-25 00:00: 00 Yes [id number] Use 4 times daily. Dx E11.8 [facility] lancets (ONE TOUCH DELICA) 33 gauge Misc 2022-0 2-25 00:00: 00 Yes [id number] Use 4 times daily. Dx E11.8 [facility] lancets (ONE TOUCH DELICA) 33 gauge Misc 2022-0 2-25 00:00: 00 Yes [id number] Use 4 times daily. Dx E11.8 [facility] lancets (ONE TOUCH DELICA) 33 gauge Misc 2022-0 2-25 00:00: 00 Yes [id number] Use 4 times daily. Dx E11.8 [facility] lancets (ONE TOUCH DELICA) 33 gauge Misc 2-0 2-25 00:00: 00 Yes [id number] Use 4 times daily. Dx E11.8 [facility] lancets (ONE TOUCH DELICA) 33 gauge Misc 2022-0 2-25 00:00: 00 Yes [id number] Use 4 times daily. Dx E11.8 [facility] lancets (ONE TOUCH DELICA) 33 gauge Misc 2022-0 2-25 00:00: 00 Yes [id number] Use 4 times daily. Dx E11.8 [facility] lancets (ONE TOUCH DELICA) 33 gauge Misc 2022-0 2-25 00:00: 00 Yes [id number] Use 4 times daily. Dx E11.8 [facility] lancets (ONE TOUCH DELICA) 33 gauge Misc 2022-0 2-25 00:00: 00 Yes [id number] Use 4 times daily. Dx E11.8 [facility] lancets (ONE TOUCH DELICA) 33 gauge Misc 2022-0 2-25 00:00: 00 Yes [id number] Use 4 times daily. Dx E11.8 [facility] lancets (ONE TOUCH DELICA) 33 gauge Misc 2-0 2-25 00:00: 00 Yes [id number] Use 4 times daily. Dx E11.8 [facility] lancets (ONE TOUCH DELICA) 33 gauge Misc 2022-0 2-25 00:00: 00 Yes [id number] Use 4 times daily. Dx E11.8 [facility] lancets (ONE TOUCH DELICA) 33 gauge Misc 2022-0 2-25 00:00: 00 Yes [id number] Use 4 times daily. Dx E11.8 [facility] lancets (ONE TOUCH DELICA) 33 gauge Misc 2022-0 2-25 00:00: 00 Yes [id number] Use 4 times daily. Dx E11.8 [facility] lancets (ONE TOUCH DELICA) 33 gauge Misc 2022-0 2-25 00:00: 00 Yes [id number] Use 4 times daily. Dx E11.8 [facility] lancets (ONE TOUCH DELICA) 33 gauge Misc 2022-0 2-25 00:00: 00 Yes [id number] Use 4 times daily. Dx E11.8 [facility] lancets (ONE TOUCH DELICA) 33 gauge Misc 2022-0 2-25 00:00: 00 Yes [id number] Use 4 times daily. 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 Dx E11.8 [facility] lancets (ONE TOUCH DELICA) 33 gauge Misc 2022-0 2-25 00:00: 00 Yes [id number] Use 4 times daily. Dx E11.8 [facility] lancets (ONE TOUCH DELICA) 33 gauge Misc 2022-0 2-25 00:00: 00 Yes [id number] Use 4 times daily. 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 Dx E11.8 [facility] lancets (ONE TOUCH DELICA) 33 gauge Misc 2022-0 2-25 00:00: 00 Yes [id number] Use 4 times daily. 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 Dx E11.8 [facility] lancets (ONE TOUCH DELICA) 33 gauge Misc 2022-0 2-25 00:00: 00 Yes [id number] Use 4 times daily. 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 Dx E11.8 [facility] lancets (ONE TOUCH DELICA) 33 gauge Misc 2022-0 2-25 00:00: 00 Yes [id number] Use 4 times daily. Dx E11.8 [facility] lancets (ONE TOUCH DELICA) 33 gauge Misc 2022-0 2-25 00:00: 00 Yes [id number] Use 4 times daily. Dx E11.8 [facility] lancets (ONE TOUCH DELICA) 33 gauge Misc 2022-0 2-25 00:00: 00 Yes [id number] Use 4 times daily. Dx E11.8 [facility] insulin syr/ndl U100 half melvin 0.5 mL 31 gauge x 5/16" Syrg 2-25 00:00: 00 01-28 00:00 :00 No [id number] 1{each} 1 Each 4 (four) times daily. Use with insulin 4 times daily. Dx E11.8 [facility] insulin aspart RAPID (NOVOLOG U-100 INSULIN ASPART) 100 unit/mL injection 225 00:00: 00 01-28 00:00 :00 No [id number] 15U inject 15 Units under the skin 3 (three) times daily before meals. [facility] insulin syr/ndl U100 half melvin 0.5 mL 31 gauge x 5/16" Syrg 2-25 00:00: 00 01-28 00:00 :00 No [id number] 1{each} 1 Each 4 (four) times daily. Use with insulin 4 times daily. Dx E11.8 [facility] insulin aspart RAPID (NOVOLOG U-100 INSULIN ASPART) 100 unit/mL injection 04-05 00:00: 00 01-28 00:00 :00 No [id number] 15U inject 15 Units under the skin 3 (three) times daily before meals. [facility] blood sugar diagnostic (ONETOUCH VERIO TEST STRIPS) strip 2- 00:00: 00 07-01 00:00 :00 No [id number] Use 4 times daily. Dx E11.8 [facility] blood sugar diagnostic (ONETOUCH VERIO TEST STRIPS) strip 2-25 00:00: 00 07-01 00:00 :00 No [id number] Use 4 times daily. Dx E11.8 [facility] miconazole (MICONAZOLE -7) 2 % vaginal cream 2 00:00: 00 Yes [id number] 1{appli cator} Insert 1 Applicator into vagina at bedtime. [facility] miconazole (MICONAZOLE -7) 2 % vaginal cream 2022-0 2-24 00:00: 00 Yes [id number] 1{appli cator} Insert 1 Applicator into vagina at bedtime. [facility] miconazole (MICONAZOLE -7) 2 % vaginal cream 2021-0 2-24 00:00: 00 Yes [id number] 1{appli cator} Insert 1 Applicator into vagina at bedtime. [facility] miconazole (MICONAZOLE -7) 2 % vaginal cream 0 2-24 00:00: 00 Yes [id number] 1{appli cator} Insert 1 Applicator into vagina at bedtime. [facility] miconazole (MICONAZOLE -7) 2 % vaginal cream 0 224 00:00: 00 Yes [id number] 1{appli cator} Insert 1 Applicator into vagina at bedtime. [facility] miconazole (MICONAZOLE -7) 2 % vaginal cream 0 224 00:00: 00 Yes [id number] 1{appli cator} Insert 1 Applicator into vagina at bedtime. [facility] miconazole (MICONAZOLE -7) 2 % vaginal cream 2021-0 224 00:00: 00 Yes [id number] 1{appli cator} Insert 1 Applicator into vagina at bedtime. [facility] miconazole (MICONAZOLE -7) 2 % vaginal cream 2021-0 224 00:00: 00 Yes [id number] 1{appli cator} Insert 1 Applicator into vagina at bedtime. [facility] miconazole (MICONAZOLE -7) 2 % vaginal cream 2021-0 2-24 00:00: 00 Yes [id number] 1{appli cator} Insert 1 Applicator into vagina at bedtime. [facility] miconazole (MICONAZOLE -7) 2 % vaginal cream 2021-0 2-24 00:00: 00 Yes [id number] 1{appli cator} Insert 1 Applicator into vagina at bedtime. [facility] miconazole (MICONAZOLE -7) 2 % vaginal cream 2021-0 2-24 00:00: 00 Yes [id number] 1{appli cator} Insert 1 Applicator into vagina at bedtime. [facility] miconazole (MICONAZOLE -7) 2 % vaginal cream 2021-0 2-24 00:00: 00 Yes [id number] 1{appli cator} Insert 1 Applicator into vagina at bedtime. [facility] miconazole (MICONAZOLE -7) 2 % vaginal cream 2021-0 2-24 00:00: 00 Yes [id number] 1{appli cator} Insert 1 Applicator into vagina at bedtime. [facility] miconazole (MICONAZOLE -7) 2 % vaginal cream 0 2-24 00:00: 00 Yes [id number] 1{appli cator} Insert 1 Applicator into vagina at bedtime. [facility] miconazole (MICONAZOLE -7) 2 % vaginal cream 2021-0 2-24 00:00: 00 Yes [id number] 1{appli cator} Insert 1 Applicator into vagina at bedtime. [facility] miconazole (MICONAZOLE -7) 2 % vaginal cream 0 2-24 00:00: 00 Yes [id number] 1{appli cator} Insert 1 Applicator into vagina at bedtime. [facility] miconazole (MICONAZOLE -7) 2 % vaginal cream 2021-0 2-24 00:00: 00 Yes [id number] 1{appli cator} Insert 1 Applicator into vagina at bedtime. [facility] miconazole (MICONAZOLE -7) 2 % vaginal cream 2021-0 2-24 00:00: 00 Yes [id number] 1{appli cator} Insert 1 Applicator into vagina at bedtime. [facility] miconazole (MICONAZOLE -7) 2 % vaginal cream 2021-0 2-24 00:00: 00 02-12 00:00 :00 No [id number] 1{appli cator} Insert 1 Applicator into vagina at bedtime. [facility] miconazole (MICONAZOLE -7) 2 % vaginal cream 2021-0 2-24 00:00: 00 02-12 00:00 :00 No [id number] 1{appli cator} Insert 1 Applicator into vagina at bedtime. [facility] miconazole (MICONAZOLE -7) 2 % vaginal cream 2 00:00: 00 02-12 00:00 :00 No [id number] 1{appli cator} Insert 1 Applicator into vagina at bedtime. [facility] miconazole (MICONAZOLE -7) 2 % vaginal cream 2 00:00: 00 02-12 00:00 :00 No [id number] 1{appli cator} Insert 1 Applicator into vagina at bedtime. [facility] miconazole (MICONAZOLE -7) 2 % vaginal cream 04-04 00:00: 00 02-12 00:00 :00 No [id number] 1{appli cator} Insert 1 Applicator into vagina at bedtime. [facility] ibuprofen 800 mg tablet 03-15 16:59: 17 03-15 00:00 :00 No 800mg Take 800 mg by mouth every 6 (six) hours as needed. [facility] ibuprofen 800 mg tablet 03-15 16:59: 17 03-15 00:00 :00 No 800mg Take 800 mg by mouth every 6 (six) hours as needed. [facility] albuterol 90 mcg/actuati on inhaler 2020-02 00:00: 00 Yes [id number] 2{puff} Inhale 2 Puffs every 4 (four) hours as needed for Wheezing or Shortness of Breath. [facility] albuterol 90 mcg/actuati on inhaler 2020-02 00:00: 00 Yes [id number] 2{puff} Inhale 2 Puffs every 4 (four) hours as needed for Wheezing or Shortness of Breath. [facility] albuterol 90 mcg/actuati on inhaler 2020-02 00:00: 00 Yes [id number] 2{puff} Inhale 2 Puffs every 4 (four) hours as needed for Wheezing or Shortness of Breath. [facility] albuterol 90 mcg/actuati on inhaler 2020-02 00:00: 00 Yes [id number] 2{puff} Inhale 2 Puffs every 4 (four) hours as needed for Wheezing or Shortness of Breath. [facility] albuterol 90 mcg/actuati on inhaler 2020-02 00:00: 00 Yes [id number] 2{puff} Inhale 2 Puffs every 4 (four) hours as needed for Wheezing or Shortness of Breath. [facility] albuterol 90 mcg/actuati on inhaler 2020-02 00:00: 00 Yes [id number] 2{puff} Inhale 2 Puffs every 4 (four) hours as needed for Wheezing or Shortness of Breath. [facility] albuterol 90 mcg/actuati on inhaler 2020-02 00:00: 00 Yes [id number] 2{puff} Inhale 2 Puffs every 4 (four) hours as needed for Wheezing or Shortness of Breath. [facility] albuterol 90 mcg/actuati on inhaler 2020-02 00:00: 00 Yes [id number] 2{puff} Inhale 2 Puffs every 4 (four) hours as needed for Wheezing or Shortness of Breath. [facility] albuterol 90 mcg/actuati on inhaler 2020-02 00:00: 00 Yes [id number] 2{puff} Inhale 2 Puffs every 4 (four) hours as needed for Wheezing or Shortness of Breath. [facility] albuterol 90 mcg/actuati on inhaler 2020-02 00:00: 00 Yes [id number] 2{puff} Inhale 2 Puffs every 4 (four) hours as needed for Wheezing or Shortness of Breath. [facility] albuterol 90 mcg/actuati on inhaler 2020-02 00:00: 00 Yes [id number] 2{puff} Inhale 2 Puffs every 4 (four) hours as needed for Wheezing or Shortness of Breath. [facility] albuterol 90 mcg/actuati on inhaler 2020-02 00:00: 00 Yes [id number] 2{puff} Inhale 2 Puffs every 4 (four) hours as needed for Wheezing or Shortness of Breath. [facility] albuterol 90 mcg/actuati on inhaler 2020-02 00:00: 00 Yes [id number] 2{puff} Inhale 2 Puffs every 4 (four) hours as needed for Wheezing or Shortness of Breath. [facility] albuterol 90 mcg/actuati on inhaler 2020-02 00:00: 00 Yes [id number] 2{puff} Inhale 2 Puffs every 4 (four) hours as needed for Wheezing or Shortness of Breath. [facility] albuterol 90 mcg/actuati on inhaler 2020-02 00:00: 00 Yes [id number] 2{puff} Inhale 2 Puffs every 4 (four) hours as needed for Wheezing or Shortness of Breath. [facility] albuterol 90 mcg/actuati on inhaler 2020-02 00:00: 00 Yes [id number] 2{puff} Inhale 2 Puffs every 4 (four) hours as needed for Wheezing or Shortness of Breath. [facility] albuterol 90 mcg/actuati on inhaler 2020-02 00:00: 00 Yes [id number] 2{puff} Inhale 2 Puffs every 4 (four) hours as needed for Wheezing or Shortness of Breath. [facility] albuterol 90 mcg/actuati on inhaler 2020-02 00:00: 00 Yes [id number] 2{puff} Inhale 2 Puffs every 4 (four) hours as needed for Wheezing or Shortness of Breath. [facility] albuterol 90 mcg/actuati on inhaler 2020-02 00:00: 00 Yes [id number] 2{puff} Inhale 2 Puffs every 4 (four) hours as needed for Wheezing or Shortness of Breath. [facility] albuterol 90 mcg/actuati on inhaler 2020-02 00:00: 00 Yes [id number] 2{puff} Inhale 2 Puffs every 4 (four) hours as needed for Wheezing or Shortness of Breath. [facility] albuterol 90 mcg/actuati on inhaler 2020-02 00:00: 00 Yes [id number] 2{puff} Inhale 2 Puffs every 4 (four) hours as needed for Wheezing or Shortness of Breath. [facility] albuterol 90 mcg/actuati on inhaler 2020-02 00:00: 00 Yes [id number] 2{puff} Inhale 2 Puffs every 4 (four) hours as needed for Wheezing or Shortness of Breath. [facility] albuterol 90 mcg/actuati on inhaler 2020-02 00:00: 00 Yes [id number] 2{puff} Inhale 2 Puffs every 4 (four) hours as needed for Wheezing or Shortness of Breath. [facility] albuterol 90 mcg/actuati on inhaler 2020-02 00:00: 00 Yes [id number] 2{puff} Inhale 2 Puffs every 4 (four) hours as needed for Wheezing or Shortness of Breath. [facility] albuterol 90 mcg/actuati on inhaler 2020-02 00:00: 00 Yes [id number] 2{puff} Inhale 2 Puffs every 4 (four) hours as needed for Wheezing or Shortness of Breath. [facility] albuterol 90 mcg/actuati on inhaler 2020-02 00:00: 00 Yes [id number] 2{puff} Inhale 2 Puffs every 4 (four) hours as needed for Wheezing or Shortness of Breath. [facility] albuterol 90 mcg/actuati on inhaler 2020-02 00:00: 00 Yes [id number] 2{puff} Inhale 2 Puffs every 4 (four) hours as needed for Wheezing or Shortness of Breath. [facility] albuterol 90 mcg/actuati on inhaler 2020-02 00:00: 00 Yes [id number] 2{puff} Inhale 2 Puffs every 4 (four) hours as needed for Wheezing or Shortness of Breath. [facility] albuterol 90 mcg/actuati on inhaler 2020-02 00:00: 00 Yes [id number] 2{puff} Inhale 2 Puffs every 4 (four) hours as needed for Wheezing or Shortness of Breath. [facility] albuterol 90 mcg/actuati on inhaler 2020-02 00:00: 00 Yes [id number] 2{puff} Inhale 2 Puffs every 4 (four) hours as needed for Wheezing or Shortness of Breath. [facility] albuterol 90 mcg/actuati on inhaler 2020-02 00:00: 00 Yes [id number] 2{puff} Inhale 2 Puffs every 4 (four) hours as needed for Wheezing or Shortness of Breath. [facility] albuterol 90 mcg/actuati on inhaler 2020-02 00:00: 00 Yes [id number] 2{puff} Inhale 2 Puffs every 4 (four) hours as needed for Wheezing or Shortness of Breath. [facility] albuterol 90 mcg/actuati on inhaler 2020-02 00:00: 00 Yes [id number] 2{puff} Inhale 2 Puffs every 4 (four) hours as needed for Wheezing or Shortness of Breath. [facility] albuterol 90 mcg/actuati on inhaler 2020-02 00:00: 00 Yes [id number] 2{puff} Inhale 2 Puffs every 4 (four) hours as needed for Wheezing or Shortness of Breath. [facility] albuterol 90 mcg/actuati on inhaler 2020-02 00:00: 00 Yes [id number] 2{puff} Inhale 2 Puffs every 4 (four) hours as needed for Wheezing or Shortness of Breath. [facility] albuterol 90 mcg/actuati on inhaler 2020-02 00:00: 00 Yes [id number] 2{puff} Inhale 2 Puffs every 4 (four) hours as needed for Wheezing or Shortness of Breath. [facility] albuterol 90 mcg/actuati on inhaler 2020-02 00:00: 00 Yes [id number] 2{puff} Inhale 2 Puffs every 4 (four) hours as needed for Wheezing or Shortness of Breath. [facility] albuterol 90 mcg/actuati on inhaler 2020-02 00:00: 00 Yes [id number] 2{puff} Inhale 2 Puffs every 4 (four) hours as needed for Wheezing or Shortness of Breath. [facility] albuterol 90 mcg/actuati on inhaler 2020-02 00:00: 00 Yes [id number] 2{puff} Inhale 2 Puffs every 4 (four) hours as needed for Wheezing or Shortness of Breath. [facility] albuterol 90 mcg/actuati on inhaler 2020-02 00:00: 00 Yes [id number] 2{puff} Inhale 2 Puffs every 4 (four) hours as needed for Wheezing or Shortness of Breath. [facility] albuterol 90 mcg/actuati on inhaler 2020-02 00:00: 00 Yes [id number] 2{puff} Inhale 2 Puffs every 4 (four) hours as needed for Wheezing or Shortness of Breath. [facility] albuterol 90 mcg/actuati on inhaler 2020-02 00:00: 00 Yes [id number] 2{puff} Inhale 2 Puffs every 4 (four) hours as needed for Wheezing or Shortness of Breath. [facility] albuterol 90 mcg/actuati on inhaler 2020-02 00:00: 00 Yes [id number] 2{puff} Inhale 2 Puffs every 4 (four) hours as needed for Wheezing or Shortness of Breath. [facility] albuterol 90 mcg/actuati on inhaler 2020-02 00:00: 00 Yes [id number] 2{puff} Inhale 2 Puffs every 4 (four) hours as needed for Wheezing or Shortness of Breath. [facility] albuterol 90 mcg/actuati on inhaler 2020-02 00:00: 00 Yes [id number] 2{puff} Inhale 2 Puffs every 4 (four) hours as needed for Wheezing or Shortness of Breath. [facility] albuterol 90 mcg/actuati on inhaler 2020-02 00:00: 00 Yes [id number] 2{puff} Inhale 2 Puffs every 4 (four) hours as needed for Wheezing or Shortness of Breath. [facility] albuterol 90 mcg/actuati on inhaler 2020-02 00:00: 00 Yes [id number] 2{puff} Inhale 2 Puffs every 4 (four) hours as needed for Wheezing or Shortness of Breath. [facility] albuterol 90 mcg/actuati on inhaler 2020-02 00:00: 00 Yes [id number] 2{puff} Inhale 2 Puffs every 4 (four) hours as needed for Wheezing or Shortness of Breath. [facility] albuterol 90 mcg/actuati on inhaler 2020-02 00:00: 00 Yes [id number] 2{puff} Inhale 2 Puffs every 4 (four) hours as needed for Wheezing or Shortness of Breath. [facility] albuterol 90 mcg/actuati on inhaler 2020-02 00:00: 00 Yes [id number] 2{puff} Inhale 2 Puffs every 4 (four) hours as needed for Wheezing or Shortness of Breath. [facility] albuterol 90 mcg/actuati on inhaler 2020-02 00:00: 00 Yes [id number] 2{puff} Inhale 2 Puffs every 4 (four) hours as needed for Wheezing or Shortness of Breath. [facility] albuterol 90 mcg/actuati on inhaler 2020-02 00:00: 00 Yes [id number] 2{puff} Inhale 2 Puffs every 4 (four) hours as needed for Wheezing or Shortness of Breath. [facility] albuterol 90 mcg/actuati on inhaler 2020-02 00:00: 00 Yes [id number] 2{puff} Inhale 2 Puffs every 4 (four) hours as needed for Wheezing or Shortness of Breath. [facility] albuterol 90 mcg/actuati on inhaler 2020-02 00:00: 00 Yes [id number] 2{puff} Inhale 2 Puffs every 4 (four) hours as needed for Wheezing or Shortness of Breath. [facility] albuterol 90 mcg/actuati on inhaler 2020-02 00:00: 00 Yes [id number] 2{puff} Inhale 2 Puffs every 4 (four) hours as needed for Wheezing or Shortness of Breath. [facility] albuterol 90 mcg/actuati on inhaler 2020-02 00:00: 00 Yes [id number] 2{puff} Inhale 2 Puffs every 4 (four) hours as needed for Wheezing or Shortness of Breath. [facility] albuterol 90 mcg/actuati on inhaler 2020-02 00:00: 00 Yes [id number] 2{puff} Inhale 2 Puffs every 4 (four) hours as needed for Wheezing or Shortness of Breath. [facility] albuterol 90 mcg/actuati on inhaler 2020-02 00:00: 00 Yes [id number] 2{puff} Inhale 2 Puffs every 4 (four) hours as needed for Wheezing or Shortness of Breath. [facility] albuterol 90 mcg/actuati on inhaler 2020-02 00:00: 00 Yes [id number] 2{puff} Inhale 2 Puffs every 4 (four) hours as needed for Wheezing or Shortness of Breath. [facility] albuterol 90 mcg/actuati on inhaler 2020-02 00:00: 00 Yes [id number] 2{puff} Inhale 2 Puffs every 4 (four) hours as needed for Wheezing or Shortness of Breath. [facility] albuterol 90 mcg/actuati on inhaler 2020-02 00:00: 00 Yes [id number] 2{puff} Inhale 2 Puffs every 4 (four) hours as needed for Wheezing or Shortness of Breath. [facility] albuterol 90 mcg/actuati on inhaler 2020-02 00:00: 00 Yes [id number] 2{puff} Inhale 2 Puffs every 4 (four) hours as needed for Wheezing or Shortness of Breath. [facility] albuterol 90 mcg/actuati on inhaler 2020-02 00:00: 00 Yes [id number] 2{puff} Inhale 2 Puffs every 4 (four) hours as needed for Wheezing or Shortness of Breath. [facility] albuterol 90 mcg/actuati on inhaler 2020-02 00:00: 00 Yes [id number] 2{puff} Inhale 2 Puffs every 4 (four) hours as needed for Wheezing or Shortness of Breath. [facility] albuterol 90 mcg/actuati on inhaler 2020-02 00:00: 00 Yes [id number] 2{puff} Inhale 2 Puffs every 4 (four) hours as needed for Wheezing or Shortness of Breath. [facility] albuterol 90 mcg/actuati on inhaler 2020-02 00:00: 00 Yes [id number] 2{puff} Inhale 2 Puffs every 4 (four) hours as needed for Wheezing or Shortness of Breath. [facility] albuterol 90 mcg/actuati on inhaler 2020-02 00:00: 00 Yes [id number] 2{puff} Inhale 2 Puffs every 4 (four) hours as needed for Wheezing or Shortness of Breath. [facility] albuterol 90 mcg/actuati on inhaler 2020-02 00:00: 00 Yes [id number] 2{puff} Inhale 2 Puffs every 4 (four) hours as needed for Wheezing or Shortness of Breath. [facility] albuterol 90 mcg/actuati on inhaler 2020-02 00:00: 00 Yes [id number] 2{puff} Inhale 2 Puffs every 4 (four) hours as needed for Wheezing or Shortness of Breath. [facility] albuterol 90 mcg/actuati on inhaler 2020-02 00:00: 00 Yes [id number] 2{puff} Inhale 2 Puffs every 4 (four) hours as needed for Wheezing or Shortness of Breath. [facility] albuterol 90 mcg/actuati on inhaler 2020-02 00:00: 00 Yes [id number] 2{puff} Inhale 2 Puffs every 4 (four) hours as needed for Wheezing or Shortness of Breath. [facility] albuterol 90 mcg/actuati on inhaler 2020-02 00:00: 00 Yes [id number] 2{puff} Inhale 2 Puffs every 4 (four) hours as needed for Wheezing or Shortness of Breath. [facility] albuterol 90 mcg/actuati on inhaler 2020-02 00:00: 00 Yes [id number] 2{puff} Inhale 2 Puffs every 4 (four) hours as needed for Wheezing or Shortness of Breath. [facility] albuterol 90 mcg/actuati on inhaler 2020-02 00:00: 00 Yes [id number] 2{puff} Inhale 2 Puffs every 4 (four) hours as needed for Wheezing or Shortness of Breath. [facility] albuterol 90 mcg/actuati on inhaler 2020-02 00:00: 00 Yes [id number] 2{puff} Inhale 2 Puffs every 4 (four) hours as needed for Wheezing or Shortness of Breath. [facility] albuterol 90 mcg/actuati on inhaler 2020-02 00:00: 00 Yes [id number] 2{puff} Inhale 2 Puffs every 4 (four) hours as needed for Wheezing or Shortness of Breath. [facility] albuterol 90 mcg/actuati on inhaler 2020-02 00:00: 00 Yes [id number] 2{puff} Inhale 2 Puffs every 4 (four) hours as needed for Wheezing or Shortness of Breath. [facility] albuterol 90 mcg/actuati on inhaler 2020-02 00:00: 00 Yes [id number] 2{puff} Inhale 2 Puffs every 4 (four) hours as needed for Wheezing or Shortness of Breath. [facility] albuterol 90 mcg/actuati on inhaler 2020-02 00:00: 00 Yes [id number] 2{puff} Inhale 2 Puffs every 4 (four) hours as needed for Wheezing or Shortness of Breath. [facility] albuterol 90 mcg/actuati on inhaler 2020-02 00:00: 00 Yes [id number] 2{puff} Inhale 2 Puffs every 4 (four) hours as needed for Wheezing or Shortness of Breath. [facility] albuterol 90 mcg/actuati on inhaler 2020-02 00:00: 00 Yes [id number] 2{puff} Inhale 2 Puffs every 4 (four) hours as needed for Wheezing or Shortness of Breath. [facility] albuterol 90 mcg/actuati on inhaler 2020-02 00:00: 00 Yes [id number] 2{puff} Inhale 2 Puffs every 4 (four) hours as needed for Wheezing or Shortness of Breath. [facility] albuterol 90 mcg/actuati on inhaler 2020-02 00:00: 00 Yes [id number] 2{puff} Inhale 2 Puffs every 4 (four) hours as needed for Wheezing or Shortness of Breath. [facility] albuterol 90 mcg/actuati on inhaler 2020-02 00:00: 00 Yes [id number] 2{puff} Inhale 2 Puffs every 4 (four) hours as needed for Wheezing or Shortness of Breath. [facility] albuterol 90 mcg/actuati on inhaler 2020-02 00:00: 00 Yes [id number] 2{puff} Inhale 2 Puffs every 4 (four) hours as needed for Wheezing or Shortness of Breath. [facility] albuterol 90 mcg/actuati on inhaler 2020-02 00:00: 00 Yes [id number] 2{puff} Inhale 2 Puffs every 4 (four) hours as needed for Wheezing or Shortness of Breath. [facility] albuterol 90 mcg/actuati on inhaler 2020-02 00:00: 00 Yes [id number] 2{puff} Inhale 2 Puffs every 4 (four) hours as needed for Wheezing or Shortness of Breath. [facility] albuterol 90 mcg/actuati on inhaler 2020-02 00:00: 00 Yes [id number] 2{puff} Inhale 2 Puffs every 4 (four) hours as needed for Wheezing or Shortness of Breath. [facility] albuterol 90 mcg/actuati on inhaler 2020-02 00:00: 00 Yes [id number] 2{puff} Inhale 2 Puffs every 4 (four) hours as needed for Wheezing or Shortness of Breath. [facility] albuterol 90 mcg/actuati on inhaler 2020-02 00:00: 00 Yes [id number] 2{puff} Inhale 2 Puffs every 4 (four) hours as needed for Wheezing or Shortness of Breath. [facility] albuterol 90 mcg/actuati on inhaler 2020-02 00:00: 00 Yes [id number] 2{puff} Inhale 2 Puffs every 4 (four) hours as needed for Wheezing or Shortness of Breath. [facility] albuterol 90 mcg/actuati on inhaler 2020-02 00:00: 00 Yes [id number] 2{puff} Inhale 2 Puffs every 4 (four) hours as needed for Wheezing or Shortness of Breath. [facility] albuterol 90 mcg/actuati on inhaler 2020-02 00:00: 00 Yes [id number] 2{puff} Inhale 2 Puffs every 4 (four) hours as needed for Wheezing or Shortness of Breath. [facility] albuterol 90 mcg/actuati on inhaler 2020-02 00:00: 00 Yes [id number] 2{puff} Inhale 2 Puffs every 4 (four) hours as needed for Wheezing or Shortness of Breath. [facility] albuterol 90 mcg/actuati on inhaler 2020-02 00:00: 00 Yes [id number] 2{puff} Inhale 2 Puffs every 4 (four) hours as needed for Wheezing or Shortness of Breath. [facility] albuterol 90 mcg/actuati on inhaler 2020-02 00:00: 00 Yes [id number] 2{puff} Inhale 2 Puffs every 4 (four) hours as needed for Wheezing or Shortness of Breath. [facility] albuterol 90 mcg/actuati on inhaler 2020-02 00:00: 00 Yes [id number] 2{puff} Inhale 2 Puffs every 4 (four) hours as needed for Wheezing or Shortness of Breath. [facility] albuterol 90 mcg/actuati on inhaler 2020-02 00:00: 00 Yes [id number] 2{puff} Inhale 2 Puffs every 4 (four) hours as needed for Wheezing or Shortness of Breath. [facility] albuterol 90 mcg/actuati on inhaler 2020-02 00:00: 00 Yes [id number] 2{puff} Inhale 2 Puffs every 4 (four) hours as needed for Wheezing or Shortness of Breath. [facility] albuterol 90 mcg/actuati on inhaler 2020-02 00:00: 00 Yes [id number] 2{puff} Inhale 2 Puffs every 4 (four) hours as needed for Wheezing or Shortness of Breath. [facility] albuterol 90 mcg/actuati on inhaler 2020-02 00:00: 00 Yes [id number] 2{puff} Inhale 2 Puffs every 4 (four) hours as needed for Wheezing or Shortness of Breath. [facility] albuterol 90 mcg/actuati on inhaler 2020-02 00:00: 00 Yes [id number] 2{puff} Inhale 2 Puffs every 4 (four) hours as needed for Wheezing or Shortness of Breath. [facility] albuterol 90 mcg/actuati on inhaler 2020-02 00:00: 00 Yes [id number] 2{puff} Inhale 2 Puffs every 4 (four) hours as needed for Wheezing or Shortness of Breath. [facility] albuterol 90 mcg/actuati on inhaler 2020-02 00:00: 00 Yes [id number] 2{puff} Inhale 2 Puffs every 4 (four) hours as needed for Wheezing or Shortness of Breath. [facility] albuterol 90 mcg/actuati on inhaler 2020-02 00:00: 00 Yes [id number] 2{puff} Inhale 2 Puffs every 4 (four) hours as needed for Wheezing or Shortness of Breath. [facility] albuterol 90 mcg/actuati on inhaler 2020-02 00:00: 00 Yes [id number] 2{puff} Inhale 2 Puffs every 4 (four) hours as needed for Wheezing or Shortness of Breath. [facility] albuterol 90 mcg/actuati on inhaler 2020-02 00:00: 00 Yes [id number] 2{puff} Inhale 2 Puffs every 4 (four) hours as needed for Wheezing or Shortness of Breath. [facility] albuterol 90 mcg/actuati on inhaler 2020-02 00:00: 00 Yes [id number] 2{puff} Inhale 2 Puffs every 4 (four) hours as needed for Wheezing or Shortness of Breath. [facility] albuterol 90 mcg/actuati on inhaler 2020-02 00:00: 00 Yes [id number] 2{puff} Inhale 2 Puffs every 4 (four) hours as needed for Wheezing or Shortness of Breath. [facility] albuterol 90 mcg/actuati on inhaler 2020-02 00:00: 00 Yes [id number] 2{puff} Inhale 2 Puffs every 4 (four) hours as needed for Wheezing or Shortness of Breath. [facility] albuterol 90 mcg/actuati on inhaler 2020-02 00:00: 00 Yes [id number] 2{puff} Inhale 2 Puffs every 4 (four) hours as needed for Wheezing or Shortness of Breath. [facility] clindamycin 300 mg capsule 2020-02 0- 10:08: 40 11-29 00:00 :00 No 800mg Take 800 mg by mouth 4 (four) times daily. [facility] clindamycin 300 mg capsule 2020-02 0 10:08: 40 11-29 00:00 :00 No 800mg Take 800 mg by mouth 4 (four) times daily. [facility] INSULIN SYRINGE ULTRA-FINE 1 mL 31 gauge x 5/16 Syrg 2020-0 9 00:00: 00 Yes [facility] BD INSULIN SYRINGE ULTRA-FINE 1 mL 31 gauge x 5/16 Syrg 2020-0 9 00:00: 00 Yes [facility] BD INSULIN SYRINGE ULTRA-FINE 1 mL 31 gauge x 5/16 Syrg 2020-0 9 00:00: 00 Yes [facility] BD INSULIN SYRINGE ULTRA-FINE 1 mL 31 gauge x 5/16 Syrg 2020-0 9 00:00: 00 Yes [facility] BD INSULIN SYRINGE ULTRA-FINE 1 mL 31 gauge x 5/16 Syrg 2020-0 9 00:00: 00 Yes [facility] BD INSULIN SYRINGE ULTRA-FINE 1 mL 31 gauge x 5/16 Syrg 2020-0 9 00:00: 00 Yes [facility] BD INSULIN SYRINGE ULTRA-FINE 1 mL 31 gauge x 5/16 Syrg 2020-0 929 00:00: 00 Yes [facility] BD INSULIN SYRINGE ULTRA-FINE 1 mL 31 gauge x 5/16 Syrg 2020-0 9 00:00: 00 Yes [facility] BD INSULIN SYRINGE ULTRA-FINE 1 mL 31 gauge x 5/16 Syrg 2020-0 929 00:00: 00 Yes [facility] BD INSULIN SYRINGE ULTRA-FINE 1 mL 31 gauge x 5/16 Syrg 2020-0 929 00:00: 00 Yes [facility] BD INSULIN SYRINGE ULTRA-FINE 1 mL 31 gauge x 5/16 Syrg 2020-0 929 00:00: 00 Yes [facility] BD INSULIN SYRINGE ULTRA-FINE 1 mL 31 gauge x 5/16 Syrg 2020-0 929 00:00: 00 Yes [facility] BD INSULIN SYRINGE ULTRA-FINE 1 mL 31 gauge x 5/16 Syrg 2021-0 9-29 00:00: 00 Yes [facility] BD INSULIN SYRINGE ULTRA-FINE 1 mL 31 gauge x 5/16 Syrg 2020-0 9-29 00:00: 00 Yes [facility] BD INSULIN SYRINGE ULTRA-FINE 1 mL 31 gauge x 5/16 Syrg 2020-0 9-29 00:00: 00 Yes [facility] BD INSULIN SYRINGE ULTRA-FINE 1 mL 31 gauge x 5/16 Syrg 2020-0 9-29 00:00: 00 Yes [facility] BD INSULIN SYRINGE ULTRA-FINE 1 mL 31 gauge x 5/16 Syrg 2020-0 9-29 00:00: 00 Yes [facility] BD INSULIN SYRINGE ULTRA-FINE 1 mL 31 gauge x 5/16 Syrg 2020-0 929 00:00: 00 Yes [facility] BD INSULIN SYRINGE ULTRA-FINE 1 mL 31 gauge x 5/16 Syrg 2020-0 929 00:00: 00 Yes [facility] BD INSULIN SYRINGE ULTRA-FINE 1 mL 31 gauge x 5/16 Syrg 2020-0 9-29 00:00: 00 Yes [facility] BD INSULIN SYRINGE ULTRA-FINE 1 mL 31 gauge x 5/16 Syrg 2020-0 9-29 00:00: 00 Yes [facility] BD INSULIN SYRINGE ULTRA-FINE 1 mL 31 gauge x 5/16 Syrg 2020-0 929 00:00: 00 Yes [facility] BD INSULIN SYRINGE ULTRA-FINE 1 mL 31 gauge x 5/16 Syrg 2020-0 9-29 00:00: 00 Yes [facility] BD INSULIN SYRINGE ULTRA-FINE 1 mL 31 gauge x 5/16 Syrg 1-0 9-29 00:00: 00 Yes [facility] BD INSULIN SYRINGE ULTRA-FINE 1 mL 31 gauge x 5/16 Syrg 1-0 9-29 00:00: 00 Yes [facility] BD INSULIN SYRINGE ULTRA-FINE 1 mL 31 gauge x 5/16 Syrg 2021-0 9-29 00:00: 00 Yes [facility] BD INSULIN SYRINGE ULTRA-FINE 1 mL 31 gauge x 5/16 Syrg 2021-0 9-29 00:00: 00 Yes [facility] BD INSULIN SYRINGE ULTRA-FINE 1 mL 31 gauge x 5/16 Syrg 2020-0 9-29 00:00: 00 Yes [facility] BD INSULIN SYRINGE ULTRA-FINE 1 mL 31 gauge x 5/16 Syrg 202-0 9-29 00:00: 00 Yes [facility] BD INSULIN SYRINGE ULTRA-FINE 1 mL 31 gauge x 5/16 Syrg 2020-0 9-29 00:00: 00 Yes [facility] BD INSULIN SYRINGE ULTRA-FINE 1 mL 31 gauge x 5/16 Syrg 2020-0 9-29 00:00: 00 Yes [facility] BD INSULIN SYRINGE ULTRA-FINE 1 mL 31 gauge x 5/16 Syrg 2020-0 9-29 00:00: 00 Yes [facility] BD INSULIN SYRINGE ULTRA-FINE 1 mL 31 gauge x 5/16 Syrg 2020-0 9-29 00:00: 00 Yes [facility] BD INSULIN SYRINGE ULTRA-FINE 1 mL 31 gauge x 5/16 Syrg 2020-0 9-29 00:00: 00 Yes [facility] BD INSULIN SYRINGE ULTRA-FINE 1 mL 31 gauge x 5/16 Syrg 2020-0 9-29 00:00: 00 Yes [facility] BD INSULIN SYRINGE ULTRA-FINE 1 mL 31 gauge x 5/16 Syrg 2020-0 9-29 00:00: 00 Yes [facility] BD INSULIN SYRINGE ULTRA-FINE 1 mL 31 gauge x 5/16 Syrg 2020-0 9-29 00:00: 00 Yes [facility] BD INSULIN SYRINGE ULTRA-FINE 1 mL 31 gauge x 5/16 Syrg 1-0 9-29 00:00: 00 Yes [facility] BD INSULIN SYRINGE ULTRA-FINE 1 mL 31 gauge x 5/16 Syrg 2020-0 9-29 00:00: 00 Yes [facility] BD INSULIN SYRINGE ULTRA-FINE 1 mL 31 gauge x 5/16 Syrg 2021-0 9-29 00:00: 00 Yes [facility] BD INSULIN SYRINGE ULTRA-FINE 1 mL 31 gauge x 5/16 Syrg 1-0 9-29 00:00: 00 Yes [facility] BD INSULIN SYRINGE ULTRA-FINE 1 mL 31 gauge x 5/16 Syrg 2020-0 9-29 00:00: 00 Yes [facility] BD INSULIN SYRINGE ULTRA-FINE 1 mL 31 gauge x 5/16 Syrg 2020-0 9-29 00:00: 00 Yes [facility] BD INSULIN SYRINGE ULTRA-FINE 1 mL 31 gauge x 5/16 Syrg 2020-0 9-29 00:00: 00 Yes [facility] BD INSULIN SYRINGE ULTRA-FINE 1 mL 31 gauge x 5/16 Syrg 1-0 9-29 00:00: 00 Yes [facility] BD INSULIN SYRINGE ULTRA-FINE 1 mL 31 gauge x 5/16 Syrg 2020-0 9-29 00:00: 00 Yes [facility] BD INSULIN SYRINGE ULTRA-FINE 1 mL 31 gauge x 5/16 Syrg 2020-0 9-29 00:00: 00 Yes [facility] BD INSULIN SYRINGE ULTRA-FINE 1 mL 31 gauge x 5/16 Syrg 2020-0 9-29 00:00: 00 Yes [facility] BD INSULIN SYRINGE ULTRA-FINE 1 mL 31 gauge x 5/16 Syrg 2020-0 9-29 00:00: 00 Yes [facility] BD INSULIN SYRINGE ULTRA-FINE 1 mL 31 gauge x 5/16 Syrg 1-0 9-29 00:00: 00 Yes [facility] BD INSULIN SYRINGE ULTRA-FINE 1 mL 31 gauge x 5/16 Syrg 2020-0 9-29 00:00: 00 Yes [facility] BD INSULIN SYRINGE ULTRA-FINE 1 mL 31 gauge x 5/16 Syrg 1-0 9-29 00:00: 00 Yes [facility] BD INSULIN SYRINGE ULTRA-FINE 1 mL 31 gauge x 5/16 Syrg 2020-0 9-29 00:00: 00 Yes [facility] BD INSULIN SYRINGE ULTRA-FINE 1 mL 31 gauge x 5/16 Syrg 2021-0 9-29 00:00: 00 Yes [facility] BD INSULIN SYRINGE ULTRA-FINE 1 mL 31 gauge x 5/16 Syrg 2021-0 9-29 00:00: 00 Yes [facility] BD INSULIN SYRINGE ULTRA-FINE 1 mL 31 gauge x 5/16 Syrg 2020-0 9-29 00:00: 00 Yes [facility] BD INSULIN SYRINGE ULTRA-FINE 1 mL 31 gauge x 5/16 Syrg 2020-0 9-29 00:00: 00 Yes [facility] BD INSULIN SYRINGE ULTRA-FINE 1 mL 31 gauge x 5/16 Syrg 2020-0 9-29 00:00: 00 Yes [facility] BD INSULIN SYRINGE ULTRA-FINE 1 mL 31 gauge x 5/16 Syrg 2020-0 9-29 00:00: 00 Yes [facility] BD INSULIN SYRINGE ULTRA-FINE 1 mL 31 gauge x 5/16 Syrg 2020-0 9-29 00:00: 00 Yes [facility] BD INSULIN SYRINGE ULTRA-FINE 1 mL 31 gauge x 5/16 Syrg 2020-0 9-29 00:00: 00 Yes [facility] BD INSULIN SYRINGE ULTRA-FINE 1 mL 31 gauge x 5/16 Syrg 2020-0 9-29 00:00: 00 Yes [facility] BD INSULIN SYRINGE ULTRA-FINE 1 mL 31 gauge x 5/16 Syrg 2020-0 9-29 00:00: 00 Yes [facility] BD INSULIN SYRINGE ULTRA-FINE 1 mL 31 gauge x 5/16 Syrg 1-0 9-29 00:00: 00 Yes [facility] BD INSULIN SYRINGE ULTRA-FINE 1 mL 31 gauge x 5/16 Syrg 2020-0 9-29 00:00: 00 Yes [facility] BD INSULIN SYRINGE ULTRA-FINE 1 mL 31 gauge x 5/16 Syrg 1-0 9-29 00:00: 00 Yes [facility] BD INSULIN SYRINGE ULTRA-FINE 1 mL 31 gauge x 5/16 Syrg 2020-0 9-29 00:00: 00 Yes [facility] BD INSULIN SYRINGE ULTRA-FINE 1 mL 31 gauge x 5/16 Syrg 2020-0 9-29 00:00: 00 Yes [facility] BD INSULIN SYRINGE ULTRA-FINE 1 mL 31 gauge x 5/16 Syrg 1-0 9-29 00:00: 00 Yes [facility] BD INSULIN SYRINGE ULTRA-FINE 1 mL 31 gauge x 5/16 Syrg 2020-0 9-29 00:00: 00 Yes [facility] BD INSULIN SYRINGE ULTRA-FINE 1 mL 31 gauge x 5/16 Syrg 2020-0 9-29 00:00: 00 Yes [facility] BD INSULIN SYRINGE ULTRA-FINE 1 mL 31 gauge x 5/16 Syrg 2020-0 9-29 00:00: 00 Yes [facility] BD INSULIN SYRINGE ULTRA-FINE 1 mL 31 gauge x 5/16 Syrg 2020-0 929 00:00: 00 Yes [facility] BD INSULIN SYRINGE ULTRA-FINE 1 mL 31 gauge x 5/16 Syrg 2020-0 929 00:00: 00 Yes [facility] BD INSULIN SYRINGE ULTRA-FINE 1 mL 31 gauge x 5/16 Syrg 2020-0 9-29 00:00: 00 Yes [facility] BD INSULIN SYRINGE ULTRA-FINE 1 mL 31 gauge x 5/16 Syrg 2020-0 929 00:00: 00 Yes [facility] BD INSULIN SYRINGE ULTRA-FINE 1 mL 31 gauge x 5/16 Syrg 2020-0 9-29 00:00: 00 Yes [facility] BD INSULIN SYRINGE ULTRA-FINE 1 mL 31 gauge x 5/16 Syrg 2020-0 9-29 00:00: 00 Yes [facility] BD INSULIN SYRINGE ULTRA-FINE 1 mL 31 gauge x 5/16 Syrg 2020-0 9-29 00:00: 00 Yes [facility] BD INSULIN SYRINGE ULTRA-FINE 1 mL 31 gauge x 5/16 Syrg 2020-0 929 00:00: 00 Yes [facility] BD INSULIN SYRINGE ULTRA-FINE 1 mL 31 gauge x 5/16 Syrg 2020-0 9-29 00:00: 00 Yes [facility] BD INSULIN SYRINGE ULTRA-FINE 1 mL 31 gauge x 5/16 Syrg 2020-0 9-29 00:00: 00 Yes [facility] BD INSULIN SYRINGE ULTRA-FINE 1 mL 31 gauge x 5/16 Syrg 2021-0 9-29 00:00: 00 Yes [facility] BD INSULIN SYRINGE ULTRA-FINE 1 mL 31 gauge x 5/16 Syrg 2020-0 9-29 00:00: 00 Yes [facility] BD INSULIN SYRINGE ULTRA-FINE 1 mL 31 gauge x 5/16 Syrg 1-0 9-29 00:00: 00 Yes [facility] BD INSULIN SYRINGE ULTRA-FINE 1 mL 31 gauge x 5/16 Syrg 2020-0 9-29 00:00: 00 Yes [facility] BD INSULIN SYRINGE ULTRA-FINE 1 mL 31 gauge x 5/16 Syrg 2020-0 9-29 00:00: 00 Yes [facility] BD INSULIN SYRINGE ULTRA-FINE 1 mL 31 gauge x 5/16 Syrg 2020-0 9-29 00:00: 00 Yes [facility] BD INSULIN SYRINGE ULTRA-FINE 1 mL 31 gauge x 5/16 Syrg 2020-0 9-29 00:00: 00 Yes [facility] BD INSULIN SYRINGE ULTRA-FINE 1 mL 31 gauge x 5/16 Syrg 1-0 9-29 00:00: 00 Yes [facility] BD INSULIN SYRINGE ULTRA-FINE 1 mL 31 gauge x 5/16 Syrg 2020-0 9-29 00:00: 00 Yes [facility] BD INSULIN SYRINGE ULTRA-FINE 1 mL 31 gauge x 5/16 Syrg 2020-0 9-29 00:00: 00 Yes [facility] BD INSULIN SYRINGE ULTRA-FINE 1 mL 31 gauge x 5/16 Syrg 1-0 9-29 00:00: 00 Yes [facility] BD INSULIN SYRINGE ULTRA-FINE 1 mL 31 gauge x 5/16 Syrg 1-0 9-29 00:00: 00 Yes [facility] BD INSULIN SYRINGE ULTRA-FINE 1 mL 31 gauge x 5/16 Syrg 2021-0 9-29 00:00: 00 Yes [facility] BD INSULIN SYRINGE ULTRA-FINE 1 mL 31 gauge x 5/16 Syrg 2021-0 9-29 00:00: 00 Yes [facility] BD INSULIN SYRINGE ULTRA-FINE 1 mL 31 gauge x 5/16 Syrg 2021-0 9-29 00:00: 00 Yes [facility] BD INSULIN SYRINGE ULTRA-FINE 1 mL 31 gauge x 5/16 Syrg 1-0 9-29 00:00: 00 Yes [facility] BD INSULIN SYRINGE ULTRA-FINE 1 mL 31 gauge x 5/16 Syrg 2021-0 9-29 00:00: 00 Yes [facility] BD INSULIN SYRINGE ULTRA-FINE 1 mL 31 gauge x 5/16 Syrg 1-0 9-29 00:00: 00 Yes [facility] BD INSULIN SYRINGE ULTRA-FINE 1 mL 31 gauge x 5/16 Syrg 2020-0 9-29 00:00: 00 Yes [facility] BD INSULIN SYRINGE ULTRA-FINE 1 mL 31 gauge x 5/16 Syrg 2020-0 9-29 00:00: 00 Yes [facility] BD INSULIN SYRINGE ULTRA-FINE 1 mL 31 gauge x 5/16 Syrg 2020-0 9-29 00:00: 00 Yes [facility] BD INSULIN SYRINGE ULTRA-FINE 1 mL 31 gauge x 5/16 Syrg 1-0 9-29 00:00: 00 Yes [facility] BD INSULIN SYRINGE ULTRA-FINE 1 mL 31 gauge x 5/16 Syrg 2020-0 9-29 00:00: 00 Yes [facility] BD INSULIN SYRINGE ULTRA-FINE 1 mL 31 gauge x 5/16 Syrg 1-0 9-29 00:00: 00 Yes [facility] BD INSULIN SYRINGE ULTRA-FINE 1 mL 31 gauge x 5/16 Syrg 2021-0 9-29 00:00: 00 Yes [facility] BD INSULIN SYRINGE ULTRA-FINE 1 mL 31 gauge x 5/16 Syrg 1-0 9-29 00:00: 00 Yes [facility] BD INSULIN SYRINGE ULTRA-FINE 1 mL 31 gauge x 5/16 Syrg 2021-0 9-29 00:00: 00 Yes [facility] BD INSULIN SYRINGE ULTRA-FINE 1 mL 31 gauge x 5/16 Syrg 2021-0 9-29 00:00: 00 Yes [facility] BD INSULIN SYRINGE ULTRA-FINE 1 mL 31 gauge x 5/16 Syrg 11-07 00:00: 00 Yes [facility] valACYclovi r (VALTREX) 500 mg tablet 10-29 00:00: 00 Yes [id number] 500mg Take 1 tablet by mouth 2 (two) times daily. [facility] valACYclovi r (VALTREX) 500 mg tablet 10-29 00:00: 00 Yes [id number] 500mg Take 1 tablet by mouth 2 (two) times daily. [facility] valACYclovi r (VALTREX) 500 mg tablet 10-29 00:00: 00 Yes [id number] 500mg Take 1 tablet by mouth 2 (two) times daily. [facility] valACYclovi r (VALTREX) 500 mg tablet 10-29 00:00: 00 Yes [id number] 500mg Take 1 tablet by mouth 2 (two) times daily. [facility] valACYclovi r (VALTREX) 500 mg tablet 10-29 00:00: 00 Yes [id number] 500mg Take 1 tablet by mouth 2 (two) times daily. [facility] valACYclovi r (VALTREX) 500 mg tablet 10-29 00:00: 00 Yes [id number] 500mg Take 1 tablet by mouth 2 (two) times daily. [facility] valACYclovi r (VALTREX) 500 mg tablet 10-29 00:00: 00 Yes [id number] 500mg Take 1 tablet by mouth 2 (two) times daily. [facility] valACYclovi r (VALTREX) 500 mg tablet 10-29 00:00: 00 Yes [id number] 500mg Take 1 tablet by mouth 2 (two) times daily. [facility] valACYclovi r (VALTREX) 500 mg tablet 10-29 00:00: 00 Yes [id number] 500mg Take 1 tablet by mouth 2 (two) times daily. [facility] valACYclovi r (VALTREX) 500 mg tablet 10-29 00:00: 00 Yes [id number] 500mg Take 1 tablet by mouth 2 (two) times daily. [facility] valACYclovi r (VALTREX) 500 mg tablet 10-29 00:00: 00 Yes [id number] 500mg Take 1 tablet by mouth 2 (two) times daily. [facility] valACYclovi r (VALTREX) 500 mg tablet 10-29 00:00: 00 Yes [id number] 500mg Take 1 tablet by mouth 2 (two) times daily. [facility] valACYclovi r (VALTREX) 500 mg tablet 10-29 00:00: 00 Yes [id number] 500mg Take 1 tablet by mouth 2 (two) times daily. [facility] valACYclovi r (VALTREX) 500 mg tablet 10-29 00:00: 00 Yes [id number] 500mg Take 1 tablet by mouth 2 (two) times daily. [facility] valACYclovi r (VALTREX) 500 mg tablet 10-29 00:00: 00 Yes [id number] 500mg Take 1 tablet by mouth 2 (two) times daily. [facility] valACYclovi r (VALTREX) 500 mg tablet 10-29 00:00: 00 Yes [id number] 500mg Take 1 tablet by mouth 2 (two) times daily. [facility] valACYclovi r (VALTREX) 500 mg tablet 10-29 00:00: 00 Yes [id number] 500mg Take 1 tablet by mouth 2 (two) times daily. [facility] valACYclovi r (VALTREX) 500 mg tablet 10-29 00:00: 00 Yes [id number] 500mg Take 1 tablet by mouth 2 (two) times daily. [facility] valACYclovi r (VALTREX) 500 mg tablet 10-29 00:00: 00 Yes [id number] 500mg Take 1 tablet by mouth 2 (two) times daily. [facility] valACYclovi r (VALTREX) 500 mg tablet 10-29 00:00: 00 Yes [id number] 500mg Take 1 tablet by mouth 2 (two) times daily. [facility] valACYclovi r (VALTREX) 500 mg tablet 10-29 00:00: 00 Yes [id number] 500mg Take 1 tablet by mouth 2 (two) times daily. [facility] valACYclovi r (VALTREX) 500 mg tablet 10-29 00:00: 00 Yes [id number] 500mg Take 1 tablet by mouth 2 (two) times daily. [facility] valACYclovi r (VALTREX) 500 mg tablet 10-29 00:00: 00 Yes [id number] 500mg Take 1 tablet by mouth 2 (two) times daily. [facility] valACYclovi r (VALTREX) 500 mg tablet 10-29 00:00: 00 Yes [id number] 500mg Take 1 tablet by mouth 2 (two) times daily. [facility] valACYclovi r (VALTREX) 500 mg tablet 10-29 00:00: 00 Yes [id number] 500mg Take 1 tablet by mouth 2 (two) times daily. [facility] valACYclovi r (VALTREX) 500 mg tablet 10-29 00:00: 00 Yes [id number] 500mg Take 1 tablet by mouth 2 (two) times daily. [facility] valACYclovi r (VALTREX) 500 mg tablet 10-29 00:00: 00 Yes [id number] 500mg Take 1 tablet by mouth 2 (two) times daily. [facility] valACYclovi r (VALTREX) 500 mg tablet 10-29 00:00: 00 Yes [id number] 500mg Take 1 tablet by mouth 2 (two) times daily. [facility] valACYclovi r (VALTREX) 500 mg tablet 10-29 00:00: 00 Yes [id number] 500mg Take 1 tablet by mouth 2 (two) times daily. [facility] valACYclovi r (VALTREX) 500 mg tablet 10-29 00:00: 00 Yes [id number] 500mg Take 1 tablet by mouth 2 (two) times daily. [facility] valACYclovi r (VALTREX) 500 mg tablet 10-29 00:00: 00 Yes [id number] 500mg Take 1 tablet by mouth 2 (two) times daily. [facility] valACYclovi r (VALTREX) 500 mg tablet 10-29 00:00: 00 Yes [id number] 500mg Take 1 tablet by mouth 2 (two) times daily. [facility] valACYclovi r (VALTREX) 500 mg tablet 10-29 00:00: 00 Yes [id number] 500mg Take 1 tablet by mouth 2 (two) times daily. [facility] valACYclovi r (VALTREX) 500 mg tablet 10-29 00:00: 00 Yes [id number] 500mg Take 1 tablet by mouth 2 (two) times daily. [facility] valACYclovi r (VALTREX) 500 mg tablet 10-29 00:00: 00 Yes [id number] 500mg Take 1 tablet by mouth 2 (two) times daily. [facility] valACYclovi r (VALTREX) 500 mg tablet 10-29 00:00: 00 Yes [id number] 500mg Take 1 tablet by mouth 2 (two) times daily. [facility] valACYclovi r (VALTREX) 500 mg tablet 10-29 00:00: 00 Yes [id number] 500mg Take 1 tablet by mouth 2 (two) times daily. [facility] valACYclovi r (VALTREX) 500 mg tablet 10-29 00:00: 00 Yes [id number] 500mg Take 1 tablet by mouth 2 (two) times daily. [facility] valACYclovi r (VALTREX) 500 mg tablet 10-29 00:00: 00 Yes [id number] 500mg Take 1 tablet by mouth 2 (two) times daily. [facility] valACYclovi r (VALTREX) 500 mg tablet 10-29 00:00: 00 Yes [id number] 500mg Take 1 tablet by mouth 2 (two) times daily. [facility] valACYclovi r (VALTREX) 500 mg tablet 10-29 00:00: 00 Yes [id number] 500mg Take 1 tablet by mouth 2 (two) times daily. [facility] valACYclovi r (VALTREX) 500 mg tablet 10-29 00:00: 00 Yes [id number] 500mg Take 1 tablet by mouth 2 (two) times daily. [facility] valACYclovi r (VALTREX) 500 mg tablet 10-29 00:00: 00 Yes [id number] 500mg Take 1 tablet by mouth 2 (two) times daily. [facility] valACYclovi r (VALTREX) 500 mg tablet 10-29 00:00: 00 Yes [id number] 500mg Take 1 tablet by mouth 2 (two) times daily. [facility] valACYclovi r (VALTREX) 500 mg tablet 10-29 00:00: 00 Yes [id number] 500mg Take 1 tablet by mouth 2 (two) times daily. [facility] valACYclovi r (VALTREX) 500 mg tablet 10-29 00:00: 00 Yes [id number] 500mg Take 1 tablet by mouth 2 (two) times daily. [facility] valACYclovi r (VALTREX) 500 mg tablet 10-29 00:00: 00 Yes [id number] 500mg Take 1 tablet by mouth 2 (two) times daily. [facility] valACYclovi r (VALTREX) 500 mg tablet 10-29 00:00: 00 Yes [id number] 500mg Take 1 tablet by mouth 2 (two) times daily. [facility] valACYclovi r (VALTREX) 500 mg tablet 10-29 00:00: 00 Yes [id number] 500mg Take 1 tablet by mouth 2 (two) times daily. [facility] valACYclovi r (VALTREX) 500 mg tablet 10-29 00:00: 00 Yes [id number] 500mg Take 1 tablet by mouth 2 (two) times daily. [facility] valACYclovi r (VALTREX) 500 mg tablet 10-29 00:00: 00 Yes [id number] 500mg Take 1 tablet by mouth 2 (two) times daily. [facility] valACYclovi r (VALTREX) 500 mg tablet 10-29 00:00: 00 Yes [id number] 500mg Take 1 tablet by mouth 2 (two) times daily. [facility] valACYclovi r (VALTREX) 500 mg tablet 10-29 00:00: 00 Yes [id number] 500mg Take 1 tablet by mouth 2 (two) times daily. [facility] valACYclovi r (VALTREX) 500 mg tablet 10-29 00:00: 00 Yes [id number] 500mg Take 1 tablet by mouth 2 (two) times daily. [facility] valACYclovi r (VALTREX) 500 mg tablet 10-29 00:00: 00 Yes [id number] 500mg Take 1 tablet by mouth 2 (two) times daily. [facility] valACYclovi r (VALTREX) 500 mg tablet 10-29 00:00: 00 Yes [id number] 500mg Take 1 tablet by mouth 2 (two) times daily. [facility] valACYclovi r (VALTREX) 500 mg tablet 10-29 00:00: 00 Yes [id number] 500mg Take 1 tablet by mouth 2 (two) times daily. [facility] valACYclovi r (VALTREX) 500 mg tablet 10-29 00:00: 00 Yes [id number] 500mg Take 1 tablet by mouth 2 (two) times daily. [facility] valACYclovi r (VALTREX) 500 mg tablet 10-29 00:00: 00 Yes [id number] 500mg Take 1 tablet by mouth 2 (two) times daily. [facility] valACYclovi r (VALTREX) 500 mg tablet 10-29 00:00: 00 Yes [id number] 500mg Take 1 tablet by mouth 2 (two) times daily. [facility] valACYclovi r (VALTREX) 500 mg tablet 10-29 00:00: 00 Yes [id number] 500mg Take 1 tablet by mouth 2 (two) times daily. [facility] valACYclovi r (VALTREX) 500 mg tablet 10-29 00:00: 00 Yes [id number] 500mg Take 1 tablet by mouth 2 (two) times daily. [facility] valACYclovi r (VALTREX) 500 mg tablet 10-29 00:00: 00 Yes [id number] 500mg Take 1 tablet by mouth 2 (two) times daily. [facility] valACYclovi r (VALTREX) 500 mg tablet 10-29 00:00: 00 Yes [id number] 500mg Take 1 tablet by mouth 2 (two) times daily. [facility] valACYclovi r (VALTREX) 500 mg tablet 10-29 00:00: 00 Yes [id number] 500mg Take 1 tablet by mouth 2 (two) times daily. [facility] valACYclovi r (VALTREX) 500 mg tablet 10-29 00:00: 00 Yes [id number] 500mg Take 1 tablet by mouth 2 (two) times daily. [facility] valACYclovi r (VALTREX) 500 mg tablet 10-29 00:00: 00 Yes [id number] 500mg Take 1 tablet by mouth 2 (two) times daily. [facility] valACYclovi r (VALTREX) 500 mg tablet 10-29 00:00: 00 Yes [id number] 500mg Take 1 tablet by mouth 2 (two) times daily. [facility] valACYclovi r (VALTREX) 500 mg tablet 10-29 00:00: 00 Yes [id number] 500mg Take 1 tablet by mouth 2 (two) times daily. [facility] valACYclovi r (VALTREX) 500 mg tablet 10-29 00:00: 00 Yes [id number] 500mg Take 1 tablet by mouth 2 (two) times daily. [facility] valACYclovi r (VALTREX) 500 mg tablet 10-29 00:00: 00 Yes [id number] 500mg Take 1 tablet by mouth 2 (two) times daily. [facility] valACYclovi r (VALTREX) 500 mg tablet 10-29 00:00: 00 Yes [id number] 500mg Take 1 tablet by mouth 2 (two) times daily. [facility] valACYclovi r (VALTREX) 500 mg tablet 10-29 00:00: 00 Yes [id number] 500mg Take 1 tablet by mouth 2 (two) times daily. [facility] valACYclovi r (VALTREX) 500 mg tablet 10-29 00:00: 00 Yes [id number] 500mg Take 1 tablet by mouth 2 (two) times daily. [facility] valACYclovi r (VALTREX) 500 mg tablet 10-29 00:00: 00 Yes [id number] 500mg Take 1 tablet by mouth 2 (two) times daily. [facility] valACYclovi r (VALTREX) 500 mg tablet 10-29 00:00: 00 Yes [id number] 500mg Take 1 tablet by mouth 2 (two) times daily. [facility] valACYclovi r (VALTREX) 500 mg tablet 10-29 00:00: 00 Yes [id number] 500mg Take 1 tablet by mouth 2 (two) times daily. [facility] valACYclovi r (VALTREX) 500 mg tablet 10-29 00:00: 00 Yes [id number] 500mg Take 1 tablet by mouth 2 (two) times daily. [facility] valACYclovi r (VALTREX) 500 mg tablet 10-29 00:00: 00 Yes [id number] 500mg Take 1 tablet by mouth 2 (two) times daily. [facility] valACYclovi r (VALTREX) 500 mg tablet 10-29 00:00: 00 Yes [id number] 500mg Take 1 tablet by mouth 2 (two) times daily. [facility] valACYclovi r (VALTREX) 500 mg tablet 10-29 00:00: 00 Yes [id number] 500mg Take 1 tablet by mouth 2 (two) times daily. [facility] valACYclovi r (VALTREX) 500 mg tablet 10-29 00:00: 00 Yes [id number] 500mg Take 1 tablet by mouth 2 (two) times daily. [facility] valACYclovi r (VALTREX) 500 mg tablet 10-29 00:00: 00 Yes [id number] 500mg Take 1 tablet by mouth 2 (two) times daily. [facility] valACYclovi r (VALTREX) 500 mg tablet 10-29 00:00: 00 Yes [id number] 500mg Take 1 tablet by mouth 2 (two) times daily. [facility] valACYclovi r (VALTREX) 500 mg tablet 10-29 00:00: 00 Yes [id number] 500mg Take 1 tablet by mouth 2 (two) times daily. [facility] valACYclovi r (VALTREX) 500 mg tablet 10-29 00:00: 00 Yes [id number] 500mg Take 1 tablet by mouth 2 (two) times daily. [facility] valACYclovi r (VALTREX) 500 mg tablet 10-29 00:00: 00 Yes [id number] 500mg Take 1 tablet by mouth 2 (two) times daily. [facility] valACYclovi r (VALTREX) 500 mg tablet 10-29 00:00: 00 Yes [id number] 500mg Take 1 tablet by mouth 2 (two) times daily. [facility] valACYclovi r (VALTREX) 500 mg tablet 10-29 00:00: 00 Yes [id number] 500mg Take 1 tablet by mouth 2 (two) times daily. [facility] valACYclovi r (VALTREX) 500 mg tablet 10-29 00:00: 00 Yes [id number] 500mg Take 1 tablet by mouth 2 (two) times daily. [facility] valACYclovi r (VALTREX) 500 mg tablet 10-29 00:00: 00 Yes [id number] 500mg Take 1 tablet by mouth 2 (two) times daily. [facility] valACYclovi r (VALTREX) 500 mg tablet 10-29 00:00: 00 Yes [id number] 500mg Take 1 tablet by mouth 2 (two) times daily. [facility] valACYclovi r (VALTREX) 500 mg tablet 10-29 00:00: 00 Yes [id number] 500mg Take 1 tablet by mouth 2 (two) times daily. [facility] valACYclovi r (VALTREX) 500 mg tablet 10-29 00:00: 00 Yes [id number] 500mg Take 1 tablet by mouth 2 (two) times daily. [facility] valACYclovi r (VALTREX) 500 mg tablet 10-29 00:00: 00 Yes [id number] 500mg Take 1 tablet by mouth 2 (two) times daily. [facility] valACYclovi r (VALTREX) 500 mg tablet 10-29 00:00: 00 Yes [id number] 500mg Take 1 tablet by mouth 2 (two) times daily. [facility] valACYclovi r (VALTREX) 500 mg tablet 10-29 00:00: 00 Yes [id number] 500mg Take 1 tablet by mouth 2 (two) times daily. [facility] valACYclovi r (VALTREX) 500 mg tablet 10-29 00:00: 00 Yes [id number] 500mg Take 1 tablet by mouth 2 (two) times daily. [facility] valACYclovi r (VALTREX) 500 mg tablet 10-29 00:00: 00 Yes [id number] 500mg Take 1 tablet by mouth 2 (two) times daily. [facility] valACYclovi r (VALTREX) 500 mg tablet 10-29 00:00: 00 Yes [id number] 500mg Take 1 tablet by mouth 2 (two) times daily. [facility] valACYclovi r (VALTREX) 500 mg tablet 10-29 00:00: 00 Yes [id number] 500mg Take 1 tablet by mouth 2 (two) times daily. [facility] valACYclovi r (VALTREX) 500 mg tablet 10-29 00:00: 00 Yes [id number] 500mg Take 1 tablet by mouth 2 (two) times daily. [facility] valACYclovi r (VALTREX) 500 mg tablet 10-29 00:00: 00 Yes [id number] 500mg Take 1 tablet by mouth 2 (two) times daily. [facility] valACYclovi r (VALTREX) 500 mg tablet 10-29 00:00: 00 Yes [id number] 500mg Take 1 tablet by mouth 2 (two) times daily. [facility] valACYclovi r (VALTREX) 500 mg tablet 10-29 00:00: 00 Yes [id number] 500mg Take 1 tablet by mouth 2 (two) times daily. [facility] valACYclovi r (VALTREX) 500 mg tablet 10-29 00:00: 00 Yes [id number] 500mg Take 1 tablet by mouth 2 (two) times daily. [facility] valACYclovi r (VALTREX) 500 mg tablet 10-29 00:00: 00 Yes [id number] 500mg Take 1 tablet by mouth 2 (two) times daily. [facility] valACYclovi r (VALTREX) 500 mg tablet 10-29 00:00: 00 Yes [id number] 500mg Take 1 tablet by mouth 2 (two) times daily. [facility] valACYclovi r (VALTREX) 500 mg tablet 10-29 00:00: 00 Yes [id number] 500mg Take 1 tablet by mouth 2 (two) times daily. [facility] valACYclovi r (VALTREX) 500 mg tablet 10-29 00:00: 00 Yes [id number] 500mg Take 1 tablet by mouth 2 (two) times daily. [facility] valACYclovi r (VALTREX) 500 mg tablet 10-29 00:00: 00 Yes [id number] 500mg Take 1 tablet by mouth 2 (two) times daily. [facility] lisinopriL 2.5 mg tablet 09-15 00:00: 00 Yes [id number] 1.25mg Take 0.5 tablets by mouth daily. [facility] lisinopriL 2.5 mg tablet 09-15 00:00: 00 Yes [id number] 1.25mg Take 0.5 tablets by mouth daily. [facility] lisinopriL 2.5 mg tablet 09-15 00:00: 00 Yes [id number] 1.25mg Take 0.5 tablets by mouth daily. [facility] lisinopriL 2.5 mg tablet 2020-0 09-15 00:00: 00 Yes [id number] 1.25mg Take 0.5 tablets by mouth daily. [facility] lisinopriL 2.5 mg tablet 2020-0 09-15 00:00: 00 Yes [id number] 1.25mg Take 0.5 tablets by mouth daily. [facility] lisinopriL 2.5 mg tablet 2020-0 09-15 00:00: 00 Yes [id number] 1.25mg Take 0.5 tablets by mouth daily. [facility] lisinopriL 2.5 mg tablet 2020-0 09-15 00:00: 00 Yes [id number] 1.25mg Take 0.5 tablets by mouth daily. [facility] lisinopriL 2.5 mg tablet 2020-0 09-15 00:00: 00 Yes [id number] 1.25mg Take 0.5 tablets by mouth daily. [facility] lisinopriL 2.5 mg tablet 2020-0 09-15 00:00: 00 Yes [id number] 1.25mg Take 0.5 tablets by mouth daily. [facility] lisinopriL 2.5 mg tablet 2020-0 09-15 00:00: 00 Yes [id number] 1.25mg Take 0.5 tablets by mouth daily. [facility] lisinopriL 2.5 mg tablet 2020-0 09-15 00:00: 00 Yes [id number] 1.25mg Take 0.5 tablets by mouth daily. [facility] lisinopriL 2.5 mg tablet 2020-0 09-15 00:00: 00 Yes [id number] 1.25mg Take 0.5 tablets by mouth daily. [facility] lisinopriL 2.5 mg tablet 2020-0 09-15 00:00: 00 Yes [id number] 1.25mg Take 0.5 tablets by mouth daily. [facility] lisinopriL 2.5 mg tablet 2020-0 8 00:00: 00 Yes [id number] 1.25mg Take 0.5 tablets by mouth daily. [facility] lisinopriL 2.5 mg tablet 2020-0 09-15 00:00: 00 Yes [id number] 1.25mg Take 0.5 tablets by mouth daily. [facility] lisinopriL 2.5 mg tablet 2020-0 09-15 00:00: 00 Yes [id number] 1.25mg Take 0.5 tablets by mouth daily. [facility] lisinopriL 2.5 mg tablet 2020-0 09-15 00:00: 00 Yes [id number] 1.25mg Take 0.5 tablets by mouth daily. [facility] lisinopriL 2.5 mg tablet 2020-0 09-15 00:00: 00 Yes [id number] 1.25mg Take 0.5 tablets by mouth daily. [facility] lisinopriL 2.5 mg tablet 0 09-15 00:00: 00 Yes [id number] 1.25mg Take 0.5 tablets by mouth daily. [facility] lisinopriL 2.5 mg tablet 2020-0 09-15 00:00: 00 Yes [id number] 1.25mg Take 0.5 tablets by mouth daily. [facility] lisinopriL 2.5 mg tablet 2020-0 09-15 00:00: 00 Yes [id number] 1.25mg Take 0.5 tablets by mouth daily. [facility] lisinopriL 2.5 mg tablet 2020-0 09-15 00:00: 00 Yes [id number] 1.25mg Take 0.5 tablets by mouth daily. [facility] lisinopriL 2.5 mg tablet 2020-0 09-15 00:00: 00 Yes [id number] 1.25mg Take 0.5 tablets by mouth daily. [facility] lisinopriL 2.5 mg tablet 2020-0 09-15 00:00: 00 Yes [id number] 1.25mg Take 0.5 tablets by mouth daily. [facility] lisinopriL 2.5 mg tablet 2020-0 09-15 00:00: 00 Yes [id number] 1.25mg Take 0.5 tablets by mouth daily. [facility] lisinopriL 2.5 mg tablet 09-15 00:00: 00 Yes [id number] 1.25mg Take 0.5 tablets by mouth daily. [facility] lisinopriL 2.5 mg tablet 09-15 00:00: 00 Yes [id number] 1.25mg Take 0.5 tablets by mouth daily. [facility] lisinopriL 2.5 mg tablet 09-15 00:00: 00 Yes [id number] 1.25mg Take 0.5 tablets by mouth daily. [facility] lisinopriL 2.5 mg tablet 09-15 00:00: 00 Yes [id number] 1.25mg Take 0.5 tablets by mouth daily. [facility] lisinopriL 2.5 mg tablet 09-15 00:00: 00 Yes [id number] 1.25mg Take 0.5 tablets by mouth daily. [facility] lisinopriL 2.5 mg tablet 09-15 00:00: 00 Yes [id number] 1.25mg Take 0.5 tablets by mouth daily. [facility] lisinopriL 2.5 mg tablet 09-15 00:00: 00 Yes [id number] 1.25mg Take 0.5 tablets by mouth daily. [facility] lisinopriL 2.5 mg tablet 09-15 00:00: 00 Yes [id number] 1.25mg Take 0.5 tablets by mouth daily. [facility] lisinopriL 2.5 mg tablet 2020-0 09-15 00:00: 00 Yes [id number] 1.25mg Take 0.5 tablets by mouth daily. [facility] lisinopriL 2.5 mg tablet 0 09-15 00:00: 00 Yes [id number] 1.25mg Take 0.5 tablets by mouth daily. [facility] lisinopriL 2.5 mg tablet 09-15 00:00: 00 Yes [id number] 1.25mg Take 0.5 tablets by mouth daily. [facility] lisinopriL 2.5 mg tablet 0 09-15 00:00: 00 Yes [id number] 1.25mg Take 0.5 tablets by mouth daily. [facility] lisinopriL 2.5 mg tablet 2020-0 09-15 00:00: 00 Yes [id number] 1.25mg Take 0.5 tablets by mouth daily. [facility] lisinopriL 2.5 mg tablet 2020-0 09-15 00:00: 00 Yes [id number] 1.25mg Take 0.5 tablets by mouth daily. [facility] lisinopriL 2.5 mg tablet 2020-0 09-15 00:00: 00 Yes [id number] 1.25mg Take 0.5 tablets by mouth daily. [facility] lisinopriL 2.5 mg tablet 2020-0 09-15 00:00: 00 Yes [id number] 1.25mg Take 0.5 tablets by mouth daily. [facility] lisinopriL 2.5 mg tablet 2020-0 09-15 00:00: 00 Yes [id number] 1.25mg Take 0.5 tablets by mouth daily. [facility] lisinopriL 2.5 mg tablet 2020-0 09-15 00:00: 00 Yes [id number] 1.25mg Take 0.5 tablets by mouth daily. [facility] lisinopriL 2.5 mg tablet 2020-0 09-15 00:00: 00 Yes [id number] 1.25mg Take 0.5 tablets by mouth daily. [facility] lisinopriL 2.5 mg tablet 2020-0 09-15 00:00: 00 Yes [id number] 1.25mg Take 0.5 tablets by mouth daily. [facility] lisinopriL 2.5 mg tablet 2020-0 09-15 00:00: 00 Yes [id number] 1.25mg Take 0.5 tablets by mouth daily. [facility] lisinopriL 2.5 mg tablet 2020-0 09-15 00:00: 00 Yes [id number] 1.25mg Take 0.5 tablets by mouth daily. [facility] lisinopriL 2.5 mg tablet 2020-0 09-15 00:00: 00 Yes [id number] 1.25mg Take 0.5 tablets by mouth daily. [facility] lisinopriL 2.5 mg tablet 0 09-15 00:00: 00 Yes [id number] 1.25mg Take 0.5 tablets by mouth daily. [facility] lisinopriL 2.5 mg tablet 2020-0 09-15 00:00: 00 Yes [id number] 1.25mg Take 0.5 tablets by mouth daily. [facility] lisinopriL 2.5 mg tablet 2020-0 09-15 00:00: 00 Yes [id number] 1.25mg Take 0.5 tablets by mouth daily. [facility] lisinopriL 2.5 mg tablet 0 09-15 00:00: 00 Yes [id number] 1.25mg Take 0.5 tablets by mouth daily. [facility] lisinopriL 2.5 mg tablet 0 09-15 00:00: 00 Yes [id number] 1.25mg Take 0.5 tablets by mouth daily. [facility] lisinopriL 2.5 mg tablet 2020-0 09-15 00:00: 00 Yes [id number] 1.25mg Take 0.5 tablets by mouth daily. [facility] lisinopriL 2.5 mg tablet 0 09-15 00:00: 00 Yes [id number] 1.25mg Take 0.5 tablets by mouth daily. [facility] lisinopriL 2.5 mg tablet 2020-0 09-15 00:00: 00 Yes [id number] 1.25mg Take 0.5 tablets by mouth daily. [facility] lisinopriL 2.5 mg tablet 2020-0 09-15 00:00: 00 Yes [id number] 1.25mg Take 0.5 tablets by mouth daily. [facility] lisinopriL 2.5 mg tablet 2020-0 09-15 00:00: 00 Yes [id number] 1.25mg Take 0.5 tablets by mouth daily. [facility] lisinopriL 2.5 mg tablet 2020-09-15 00:00: 00 Yes [id number] 1.25mg Take 0.5 tablets by mouth daily. [facility] lisinopriL 2.5 mg tablet 0 09-15 00:00: 00 Yes [id number] 1.25mg Take 0.5 tablets by mouth daily. [facility] lisinopriL 2.5 mg tablet 0 09-15 00:00: 00 Yes [id number] 1.25mg Take 0.5 tablets by mouth daily. [facility] lisinopriL 2.5 mg tablet 2020-0 09-15 00:00: 00 Yes [id number] 1.25mg Take 0.5 tablets by mouth daily. [facility] lisinopriL 2.5 mg tablet 2020-0 09-15 00:00: 00 Yes [id number] 1.25mg Take 0.5 tablets by mouth daily. [facility] lisinopriL 2.5 mg tablet 2020-0 09-15 00:00: 00 Yes [id number] 1.25mg Take 0.5 tablets by mouth daily. [facility] lisinopriL 2.5 mg tablet 0 09-15 00:00: 00 Yes [id number] 1.25mg Take 0.5 tablets by mouth daily. [facility] lisinopriL 2.5 mg tablet 0 09-15 00:00: 00 Yes [id number] 1.25mg Take 0.5 tablets by mouth daily. [facility] lisinopriL 2.5 mg tablet 2020-0 09-15 00:00: 00 Yes [id number] 1.25mg Take 0.5 tablets by mouth daily. [facility] lisinopriL 2.5 mg tablet 2020-0 09-15 00:00: 00 Yes [id number] 1.25mg Take 0.5 tablets by mouth daily. [facility] lisinopriL 2.5 mg tablet 2020-0 09-15 00:00: 00 Yes [id number] 1.25mg Take 0.5 tablets by mouth daily. [facility] lisinopriL 2.5 mg tablet 2020-0 09-15 00:00: 00 Yes [id number] 1.25mg Take 0.5 tablets by mouth daily. [facility] lisinopriL 2.5 mg tablet 0 09-15 00:00: 00 Yes [id number] 1.25mg Take 0.5 tablets by mouth daily. [facility] lisinopriL 2.5 mg tablet 0 09-15 00:00: 00 Yes [id number] 1.25mg Take 0.5 tablets by mouth daily. [facility] lisinopriL 2.5 mg tablet 09-15 00:00: 00 Yes [id number] 1.25mg Take 0.5 tablets by mouth daily. [facility] lisinopriL 2.5 mg tablet 09-15 00:00: 00 Yes [id number] 1.25mg Take 0.5 tablets by mouth daily. [facility] lisinopriL 2.5 mg tablet 09-15 00:00: 00 Yes [id number] 1.25mg Take 0.5 tablets by mouth daily. [facility] lisinopriL 2.5 mg tablet 0 09-15 00:00: 00 Yes [id number] 1.25mg Take 0.5 tablets by mouth daily. [facility] lisinopriL 2.5 mg tablet 09-15 00:00: 00 Yes [id number] 1.25mg Take 0.5 tablets by mouth daily. [facility] lisinopriL 2.5 mg tablet 09-15 00:00: 00 Yes [id number] 1.25mg Take 0.5 tablets by mouth daily. [facility] lisinopriL 2.5 mg tablet 0 09-15 00:00: 00 Yes [id number] 1.25mg Take 0.5 tablets by mouth daily. [facility] lisinopriL 2.5 mg tablet 0 09-15 00:00: 00 Yes [id number] 1.25mg Take 0.5 tablets by mouth daily. [facility] lisinopriL 2.5 mg tablet 0 09-15 00:00: 00 Yes [id number] 1.25mg Take 0.5 tablets by mouth daily. [facility] lisinopriL 2.5 mg tablet 2020-0 09-15 00:00: 00 Yes [id number] 1.25mg Take 0.5 tablets by mouth daily. [facility] lisinopriL 2.5 mg tablet 2020-0 09-15 00:00: 00 Yes [id number] 1.25mg Take 0.5 tablets by mouth daily. [facility] lisinopriL 2.5 mg tablet 2020-0 09-15 00:00: 00 Yes [id number] 1.25mg Take 0.5 tablets by mouth daily. [facility] lisinopriL 2.5 mg tablet 09-15 00:00: 00 Yes [id number] 1.25mg Take 0.5 tablets by mouth daily. [facility] lisinopriL 2.5 mg tablet 2020-0 09-15 00:00: 00 Yes [id number] 1.25mg Take 0.5 tablets by mouth daily. [facility] lisinopriL 2.5 mg tablet 2020-0 09-15 00:00: 00 Yes [id number] 1.25mg Take 0.5 tablets by mouth daily. [facility] lisinopriL 2.5 mg tablet 0 09-15 00:00: 00 Yes [id number] 1.25mg Take 0.5 tablets by mouth daily. [facility] lisinopriL 2.5 mg tablet 2020-0 09-15 00:00: 00 Yes [id number] 1.25mg Take 0.5 tablets by mouth daily. [facility] lisinopriL 2.5 mg tablet 2020-0 09-15 00:00: 00 Yes [id number] 1.25mg Take 0.5 tablets by mouth daily. [facility] lisinopriL 2.5 mg tablet 2020-0 09-15 00:00: 00 Yes [id number] 1.25mg Take 0.5 tablets by mouth daily. [facility] lisinopriL 2.5 mg tablet 2020-0 09-15 00:00: 00 Yes [id number] 1.25mg Take 0.5 tablets by mouth daily. [facility] lisinopriL 2.5 mg tablet 2020-0 09-15 00:00: 00 Yes [id number] 1.25mg Take 0.5 tablets by mouth daily. [facility] lisinopriL 2.5 mg tablet 0 09-15 00:00: 00 Yes [id number] 1.25mg Take 0.5 tablets by mouth daily. [facility] lisinopriL 2.5 mg tablet 0 09-15 00:00: 00 Yes [id number] 1.25mg Take 0.5 tablets by mouth daily. [facility] lisinopriL 2.5 mg tablet 2020-0 09-15 00:00: 00 Yes [id number] 1.25mg Take 0.5 tablets by mouth daily. [facility] lisinopriL 2.5 mg tablet 2020-0 09-15 00:00: 00 Yes [id number] 1.25mg Take 0.5 tablets by mouth daily. [facility] lisinopriL 2.5 mg tablet 0 09-15 00:00: 00 Yes [id number] 1.25mg Take 0.5 tablets by mouth daily. [facility] lisinopriL 2.5 mg tablet 2020-0 09-15 00:00: 00 Yes [id number] 1.25mg Take 0.5 tablets by mouth daily. [facility] lisinopriL 2.5 mg tablet 2020-0 09-15 00:00: 00 Yes [id number] 1.25mg Take 0.5 tablets by mouth daily. [facility] lisinopriL 2.5 mg tablet 2020-0 09-15 00:00: 00 Yes [id number] 1.25mg Take 0.5 tablets by mouth daily. [facility] lisinopriL 2.5 mg tablet 2020-0 09-15 00:00: 00 Yes [id number] 1.25mg Take 0.5 tablets by mouth daily. [facility] lisinopriL 2.5 mg tablet 2020-0 09-15 00:00: 00 Yes [id number] 1.25mg Take 0.5 tablets by mouth daily. [facility] lisinopriL 2.5 mg tablet 2020-0 09-15 00:00: 00 Yes [id number] 1.25mg Take 0.5 tablets by mouth daily. [facility] lisinopriL 2.5 mg tablet 09-15 00:00: 00 Yes [id number] 1.25mg Take 0.5 tablets by mouth daily. [facility] lisinopriL 2.5 mg tablet 09-15 00:00: 00 Yes [id number] 1.25mg Take 0.5 tablets by mouth daily. [facility] lisinopriL 2.5 mg tablet 09-15 00:00: 00 Yes [id number] 1.25mg Take 0.5 tablets by mouth daily. [facility] lisinopriL 2.5 mg tablet 09-15 00:00: 00 Yes [id number] 1.25mg Take 0.5 tablets by mouth daily. [facility] lisinopriL 2.5 mg tablet 09-15 00:00: 00 Yes [id number] 1.25mg Take 0.5 tablets by mouth daily. [facility] lisinopriL 2.5 mg tablet 09-15 00:00: 00 Yes [id number] 1.25mg Take 0.5 tablets by mouth daily. [facility] lisinopriL 2.5 mg tablet 09-15 00:00: 00 Yes [id number] 1.25mg Take 0.5 tablets by mouth daily. [facility] topiramate 25 mg tablet 09-14 00:00: 00 Yes [id number] 25mg Take 1 tablet by mouth 2 (two) times daily. After one week may take 2 PO BID. [facility] topiramate 25 mg tablet 09-14 00:00: 00 Yes [id number] 25mg Take 1 tablet by mouth 2 (two) times daily. After one week may take 2 PO BID. [facility] topiramate 25 mg tablet 09-14 00:00: 00 Yes [id number] 25mg Take 1 tablet by mouth 2 (two) times daily. After one week may take 2 PO BID. [facility] topiramate 25 mg tablet 2020-0 8-06 00:00: 00 Yes [id number] 25mg Take 1 tablet by mouth 2 (two) times daily. After one week may take 2 PO BID. [facility] topiramate 25 mg tablet 2020-0 8- 00:00: 00 Yes [id number] 25mg Take 1 tablet by mouth 2 (two) times daily. After one week may take 2 PO BID. [facility] topiramate 25 mg tablet 2020-0 8 00:00: 00 Yes [id number] 25mg Take 1 tablet by mouth 2 (two) times daily. After one week may take 2 PO BID. [facility] topiramate 25 mg tablet 2020-0 8 00:00: 00 Yes [id number] 25mg Take 1 tablet by mouth 2 (two) times daily. After one week may take 2 PO BID. [facility] topiramate 25 mg tablet 2020-0 8 00:00: 00 Yes [id number] 25mg Take 1 tablet by mouth 2 (two) times daily. After one week may take 2 PO BID. [facility] topiramate 25 mg tablet 2020-0 8 00:00: 00 Yes [id number] 25mg Take 1 tablet by mouth 2 (two) times daily. After one week may take 2 PO BID. [facility] topiramate 25 mg tablet 2020-0 8- 00:00: 00 Yes [id number] 25mg Take 1 tablet by mouth 2 (two) times daily. After one week may take 2 PO BID. [facility] topiramate 25 mg tablet 1-0 8-06 00:00: 00 Yes [id number] 25mg Take 1 tablet by mouth 2 (two) times daily. After one week may take 2 PO BID. [facility] topiramate 25 mg tablet 2020-0 8-06 00:00: 00 Yes [id number] 25mg Take 1 tablet by mouth 2 (two) times daily. After one week may take 2 PO BID. [facility] topiramate 25 mg tablet 2020-0 8- 00:00: 00 Yes [id number] 25mg Take 1 tablet by mouth 2 (two) times daily. After one week may take 2 PO BID. [facility] topiramate 25 mg tablet 2020-0 8- 00:00: 00 Yes [id number] 25mg Take 1 tablet by mouth 2 (two) times daily. After one week may take 2 PO BID. [facility] topiramate 25 mg tablet 2020-0 8- 00:00: 00 Yes [id number] 25mg Take 1 tablet by mouth 2 (two) times daily. After one week may take 2 PO BID. [facility] topiramate 25 mg tablet 2020-0 09-14 00:00: 00 Yes [id number] 25mg Take 1 tablet by mouth 2 (two) times daily. After one week may take 2 PO BID. [facility] topiramate 25 mg tablet 2020-0 09-14 00:00: 00 Yes [id number] 25mg Take 1 tablet by mouth 2 (two) times daily. After one week may take 2 PO BID. [facility] topiramate 25 mg tablet 2020-0 8 00:00: 00 Yes [id number] 25mg Take 1 tablet by mouth 2 (two) times daily. After one week may take 2 PO BID. [facility] topiramate 25 mg tablet 2020-0 8 00:00: 00 Yes [id number] 25mg Take 1 tablet by mouth 2 (two) times daily. After one week may take 2 PO BID. [facility] topiramate 25 mg tablet 2020-0 8 00:00: 00 Yes [id number] 25mg Take 1 tablet by mouth 2 (two) times daily. After one week may take 2 PO BID. [facility] topiramate 25 mg tablet 2020-0 8- 00:00: 00 Yes [id number] 25mg Take 1 tablet by mouth 2 (two) times daily. After one week may take 2 PO BID. [facility] topiramate 25 mg tablet 2020-0 8- 00:00: 00 Yes [id number] 25mg Take 1 tablet by mouth 2 (two) times daily. After one week may take 2 PO BID. [facility] topiramate 25 mg tablet 2020-0 8-06 00:00: 00 Yes [id number] 25mg Take 1 tablet by mouth 2 (two) times daily. After one week may take 2 PO BID. [facility] topiramate 25 mg tablet 2020-0 8-06 00:00: 00 Yes [id number] 25mg Take 1 tablet by mouth 2 (two) times daily. After one week may take 2 PO BID. [facility] topiramate 25 mg tablet 2020-0 8-06 00:00: 00 Yes [id number] 25mg Take 1 tablet by mouth 2 (two) times daily. After one week may take 2 PO BID. [facility] topiramate 25 mg tablet 2020-0 8-06 00:00: 00 Yes [id number] 25mg Take 1 tablet by mouth 2 (two) times daily. After one week may take 2 PO BID. [facility] topiramate 25 mg tablet 2020-0 8-06 00:00: 00 02-18 00:00 :00 No [id number] 25mg Take 1 tablet by mouth 2 (two) times daily. After one week may take 2 PO BID. [facility] topiramate 25 mg tablet 2020-0 8-06 00:00: 00 02-18 00:00 :00 No [id number] 25mg Take 1 tablet by mouth 2 (two) times daily. After one week may take 2 PO BID. [facility] topiramate 25 mg tablet 2020-0 8-06 00:00: 00 02-18 00:00 :00 No [id number] 25mg Take 1 tablet by mouth 2 (two) times daily. After one week may take 2 PO BID. [facility] topiramate 25 mg tablet 2020-0 8-06 00:00: 00 02-18 00:00 :00 No [id number] 25mg Take 1 tablet by mouth 2 (two) times daily. After one week may take 2 PO BID. [facility] insulin syr/ndl U100 half melvin 0.5 mL 31 gauge x 5/16" Syrg 09-06 00:00: 00 04-05 00:00 :00 No [id number] 1{each} 1 Each 4 (four) times daily. Use with insulin 4 times daily. Dx E11.8 [facility] lancets (ONE TOUCH DELICA) 33 gauge Misc 08-17 00:00: 00 04-05 00:00 :00 No [id number] Use 4 times daily. Dx E11.8 [facility] insulin aspart RAPID (NOVOLOG U-100 INSULIN ASPART) 100 unit/mL injection 08-17 00:00: 00 04-05 00:00 :00 No [id number] 15U inject 15 Units under the skin 3 (three) times daily before meals. [facility] insulin glargine (LANTUS U-100 INSULIN) 100 unit/mL injection 08-17 00:00: 00 04-05 00:00 :00 No 50U inject 50 Units under the skin. [facility] lancets (ONE TOUCH DELICA) 33 gauge Misc 08-17 00:00: 00 04-05 00:00 :00 No [id number] Use 4 times daily. Dx E11.8 [facility] insulin aspart RAPID (NOVOLOG U-100 INSULIN ASPART) 100 unit/mL injection 08-17 00:00: 00 04-05 00:00 :00 No [id number] 15U inject 15 Units under the skin 3 (three) times daily before meals. [facility] insulin glargine (LANTUS U-100 INSULIN) 100 unit/mL injection 08-17 00:00: 00 04-05 00:00 :00 No 50U inject 50 Units under the skin. [facility] blood sugar diagnostic (ONETOUCH VERIO TEST STRIPS) strip 08-17 00:00: 00 02-27 00:00 :00 No [id number] Use 4 times daily. Dx E11.8 [facility] blood sugar diagnostic (ONETOUCH VERIO TEST STRIPS) strip 08-17 00:00: 00 02-27 00:00 :00 No [id number] Use 4 times daily. Dx E11.8 [facility] semaglutide (OZEMPIC) 0.25 mg or 0.5 mg(2 mg/1.5 mL) PnIj 08-17 00:00: 11-23 00:00 :00 No [id number] .25mg inject 0.25 mg under the skin weekly. Inject 0.25 mg weekly for 4 weeks, then increase to 0.5 mg weekly injection. [facility] semaglutide (OZEMPIC) 0.25 mg or 0.5 mg(2 mg/1.5 mL) PnIj 08-17 00:00: 00 11-23 00:00 :00 No [id number] .25mg inject 0.25 mg under the skin weekly. Inject 0.25 mg weekly for 4 weeks, then increase to 0.5 mg weekly injection. [facility] insulin syr/ndl U100 half melvin 0.5 mL 31 gauge x 5/16" Syrg 08-17 00:00: 00 09-06 00:00 :00 No [id number] 1{each} 1 Each 4 (four) times daily. Use with insulin 4 times daily. Dx E11.8 [facility] Insulin [place], Disposable, (PEN NEEDLE) 31 gauge x 5/16" Ndle 4-09 00:00: 00 07-01 00:00 :00 No [id number] Use as directed [facility] Insulin [place], Disposable, (PEN NEEDLE) 31 gauge x 5/16" Ndle 4-09 00:00: 00 07-01 00:00 :00 No [id number] Use as directed [facility] Insulin [place], Disposable, (PEN NEEDLE) 31 gauge x 5/16" Ndle 4-09 00:00: 00 07-01 00:00 :00 No [id number] Use as directed [facility] Insulin [place], Disposable, (PEN NEEDLE) 31 gauge x 5/16" Ndle 05-18 00:00: 00 07-01 00:00 :00 No [id number] Use as directed [facility] Insulin Syringe-Nee dle U-100 30G X 5/16" 1 ML Insulin Syringe-Nee dle U-100 30G X 5/16" 1 ML 3-03 00:00: 00 No Insulin Syringe-Ne edle U-100 30G X 5/16" 1 ML Lantus 100 UNIT/ML Lantus 100 UNIT/ML 3-03 00:00: 00 No Lantus 100 UNIT/ML Insulin Syringe-Nee dle U-100 30G X 5/16" 1 ML Insulin Syringe-Nee dle U-100 30G X 5/16" 1 ML 3-03 00:00: 00 No Insulin Syringe-Ne edle U-100 30G X 5/16" 1 ML Lantus 100 UNIT/ML Lantus 100 UNIT/ML 3-03 00:00: 00 No Lantus 100 UNIT/ML Insulin Syringe-Nee dle U-100 30G X 5/16" 1 ML Insulin Syringe-Nee dle U-100 30G X 5/16" 1 ML 3-03 00:00: 00 No Insulin Syringe-Ne edle U-100 30G X 5/16" 1 ML Lantus 100 UNIT/ML Lantus 100 UNIT/ML 3-03 00:00: 00 No Lantus 100 UNIT/ML Pen [place] 32G X 5 MM Pen [place] 32G X 5 MM 2020-0 2-24 00:00: 00 No Pen [place] 32G X 5 MM Pen [place] 32G X 5 MM Pen [place] 32G X 5 MM 2020-0 2-24 00:00: 00 No Pen [place] 32G X 5 MM Pen [place] 32G X 5 MM Pen [place] 32G X 5 MM 2020-0 2-24 00:00: 00 No Pen [place] 32G X 5 MM Pen [place] 32G X 5 MM Pen [place] 32G X 5 MM 2020-0 2-24 00:00: 00 No Pen [place] 32G X 5 MM Mupirocin 2 % Mupirocin 2 % 2-24 00:00: 00 04-18 00:00 :00 No 1{appli cation_ to_affe cted_ar ea} BID Mupirocin 2 % Mupirocin 2 % Mupirocin 2 % 2-24 00:00: 00 04-18 00:00 :00 No 1{appli cation_ to_affe cted_ar ea} BID Mupirocin 2 % Bactrim DS 800-160 MG Bactrim DS 800-160 MG 2-24 00:00: 00 04-14 00:00 :00 No 1{table t} BID Bactrim DS 800-160 MG Benzonatate 100 MG Benzonatate 100 MG 2-08 00:00: 00 04-18 00:00 :00 No 1{capsu le_as_n eeded} Benzonatat e 100 MG Benzonatate 100 MG Benzonatate 100 MG 2- 00:00: 00 04-18 00:00 :00 No 1{capsu le_as_n eeded} Benzonatat e 100 MG [facility] Benzonatate 100 MG Benzonatate 100 MG 2-08 00:00: 00 04-18 00:00 :00 No 1{capsu le_as_n eeded} Benzonatat e 100 MG Benzonatate 100 MG Benzonatate 100 MG 2-08 00:00: 00 04-18 00:00 :00 No 1{capsu le_as_n eeded} Benzonatat e 100 MG Lantus SoloStar 100 UNIT/ML Lantus SoloStar 100 UNIT/ML 1- 00:00: 00 No QD Lantus SoloStar 100 UNIT/ML Atorvastati n Calcium 10 MG Atorvastati n Calcium 10 MG 2019-02 0- 00:00: 00 No 1{table t} QD Atorvastat in Calcium 10 MG Atorvastati n Calcium 10 MG Atorvastati n Calcium 10 MG 2019-02 0 00:00: 00 No 1{table t} QD Atorvastat in Calcium 10 MG Atorvastati n Calcium 10 MG Atorvastati n Calcium 10 MG 2019-1 0-13 00:00: 00 No 1{table t} QD Atorvastat in Calcium 10 MG Atorvastati n Calcium 10 MG Atorvastati n Calcium 10 MG 2019- 0-13 00:00: 00 No 1{table t} QD Atorvastat in Calcium 10 MG Atorvastati n Calcium 10 MG Atorvastati n Calcium 10 MG 2019-1 0-13 00:00: 00 No 1{table t} QD Atorvastat in Calcium 10 MG Atorvastati n Calcium 10 MG Atorvastati n Calcium 10 MG 2019-1 0-13 00:00: 00 No 1{table t} QD Atorvastat in Calcium 10 MG [facility] Atorvastati n Calcium 10 MG Atorvastati n Calcium 10 MG 2019- 0-13 00:00: 00 No 1{table t} QD Atorvastat in Calcium 10 MG Atorvastati n Calcium 10 MG Atorvastati n Calcium 10 MG 2019-02 0-13 00:00: 00 No 1{table t} QD Atorvastat in Calcium 10 MG Atorvastati n Calcium 10 MG Atorvastati n Calcium 10 MG 2019- 0-13 00:00: 00 No 1{table t} QD Atorvastat in Calcium 10 MG Atorvastati n Calcium 10 MG Atorvastati n Calcium 10 MG 2019- 0-13 00:00: 00 No 1{table t} QD Atorvastat in Calcium 10 MG Atorvastati n Calcium 10 MG Atorvastati n Calcium 10 MG 2019- 0-13 00:00: 00 No 1{table t} QD Atorvastat in Calcium 10 MG Bactrim DS 800-160 MG Bactrim DS 800-160 MG 2019-1 0-05 00:00: 00 No 1{table t} BID Bactrim DS 800-160 MG Bactrim DS 800-160 MG Bactrim DS 800-160 MG 2020-1 0-05 00:00: 00 No 1{table t} BID Bactrim DS 800-160 MG Bactrim DS 800-160 MG Bactrim DS 800-160 MG 2020-1 0-05 00:00: 00 No 1{table t} BID Bactrim DS 800-160 MG Bactrim DS 800-160 MG Bactrim DS 800-160 MG 2019-02 0-05 00:00: 00 No 1{table t} BID Bactrim DS 800-160 MG [facility] Bactrim DS 800-160 MG Bactrim DS 800-160 MG 2019-02 005 00:00: 00 No 1{table t} BID Bactrim DS 800-160 MG Bactrim DS 800-160 MG Bactrim DS 800-160 MG 2019-02 005 00:00: 00 No 1{table t} BID Bactrim DS 800-160 MG Bactrim DS 800-160 MG Bactrim DS 800-160 MG 2019-02 0 00:00: 00 No 1{table t} BID Bactrim DS 800-160 MG Bactrim DS 800-160 MG Bactrim DS 800-160 MG 2019-02 0 00:00: 00 No 1{table t} BID Bactrim DS 800-160 MG Gabapentin 300 MG Gabapentin 300 MG 2019-02 0 00:00: 00 No 1{capsu le} TID Gabapentin 300 MG Keflex 500 MG Keflex 500 MG 2019-02 0 00:00: 00 11-23 00:00 :00 No 1{capsu le} BID Keflex 500 MG Bactrim DS 800-160 MG Bactrim DS 800-160 MG 2019-02 0 00:00: 00 11-23 00:00 :00 No 1{table t} BID Bactrim DS 800-160 MG linezolid 600 mg tablet 10-06 00:00: 00 11-29 00:00 :00 No [id number] 600mg Take 1 tablet by mouth every 12 (twelve) hours. [facility] linezolid 600 mg tablet 10-06 00:00: 00 11-29 00:00 :00 No [id number] 600mg Take 1 tablet by mouth every 12 (twelve) hours. [facility] norgestimat e-ethinyl estradiol 0.25-35 mg-mcg per tablet 09-16 00:00: 00 10-29 00:00 :00 No [id number] 1{tbl} Take 1 tablet by mouth daily. [facility] norgestimat e-ethinyl estradiol 0.25-35 mg-mcg per tablet 09-16 00:00: 00 10-29 00:00 :00 No [id number] 1{tbl} Take 1 tablet by mouth daily. [facility] Norethin Johnnie-Eth Estrad-FE Norethin Johnnie-Eth Estrad-FE 04-21 00:00: 00 Yes Na Roche 1 tablet [facility] Norethin Johnnie-Eth Estrad-FE 1-20 MG-MCG(24) Norethin Johnnie-Eth Estrad-FE 1-20 MG-MCG(24) 04-21 00:00: 00 No 1{table t} QD Norethin Johnnie-Eth Estrad-FE 1-20 MG-MCG(24) Norethin Johnnie-Eth Estrad-FE 1-20 MG-MCG(24) Norethin Johnnie-Eth Estrad-FE 1-20 MG-MCG(24) 04-21 00:00: 00 No 1{table t} QD Norethin Johnnie-Eth Estrad-FE 1-20 MG-MCG(24) Norethin Johnnie-Eth Estrad-FE 1-20 MG-MCG(24) Norethin Johnnie-Eth Estrad-FE 1-20 MG-MCG(24) 04-21 00:00: 00 No 1{table t} QD Norethin Johnnie-Eth Estrad-FE 1-20 MG-MCG(24) Norethin Johnnie-Eth Estrad-FE 1-20 MG-MCG(24) Norethin Johnnie-Eth Estrad-FE 1-20 MG-MCG(24) 04-21 00:00: 00 No 1{table t} QD Norethin Johnnie-Eth Estrad-FE 1-20 MG-MCG(24) Norethin Johnnie-Eth Estrad-FE 1-20 MG-MCG(24) Norethin Johnnie-Eth Estrad-FE 1-20 MG-MCG(24) 04-21 00:00: 00 No 1{table t} QD Norethin Johnnie-Eth Estrad-FE 1-20 MG-MCG(24) Norethin Johnnie-Eth Estrad-FE 1-20 MG-MCG(24) Norethin Johnnie-Eth Estrad-FE 1-20 MG-MCG(24) 04-21 00:00: 00 No 1{table t} QD Norethin Johnnie-Eth Estrad-FE 1-20 MG-MCG(24) [facility] Norethin Johnnie-Eth Estrad-FE 1-20 MG-MCG(24) Norethin Johnnie-Eth Estrad-FE 1-20 MG-MCG(24) 04-21 00:00: 00 No 1{table t} QD Norethin Johnnie-Eth Estrad-FE 1-20 MG-MCG(24) Norethin Johnnie-Eth Estrad-FE 1-20 MG-MCG(24) Norethin Johnnie-Eth Estrad-FE 1-20 MG-MCG(24) 04-21 00:00: 00 No 1{table t} QD Norethin Johnnie-Eth Estrad-FE 1-20 MG-MCG(24) Norethin Johnnie-Eth Estrad-FE 1-20 MG-MCG(24) Norethin Johnnie-Eth Estrad-FE 1-20 MG-MCG(24) 04-21 00:00: 00 No 1{table t} QD Norethin Johnnie-Eth Estrad-FE 1-20 MG-MCG(24) Norethin Johnnie-Eth Estrad-FE 1-20 MG-MCG(24) Norethin Johnnie-Eth Estrad-FE 1-20 MG-MCG(24) 04-21 00:00: 00 No 1{table t} QD Norethin Johnnie-Eth Estrad-FE 1-20 MG-MCG(24) Norethin Johnnie-Eth Estrad-FE 1-20 MG-MCG(24) Norethin Johnnie-Eth Estrad-FE 1-20 MG-MCG(24) 04-21 00:00: 00 No 1{table t} QD Norethin Johnnie-Eth Estrad-FE 1-20 MG-MCG(24) Norethin Johnnie-Eth Estrad-FE 1-20 MG-MCG(24) Norethin Johnnie-Eth Estrad-FE 1-20 MG-MCG(24) [id number] 3-13 00:00: 00 No 1{table t} QD Norethin Johnnie-Eth Estrad-FE 1-20 MG-MCG(24) Lancets Super Thin Lancets Super Thin 05-26 00:00: 00 Yes Na Roche one [facility] Lancets Super Thin n/s Lancets Super Thin n/s 05-26 00:00: 00 No Lancets Super Thin n/s Lancets Super Thin n/s Lancets Super Thin n/s 05-26 00:00: 00 No Lancets Super Thin n/s Lancets Super Thin n/s Lancets Super Thin n/s 05-26 00:00: 00 No Lancets Super Thin n/s Lancets Super Thin n/s Lancets Super Thin n/s 05-26 00:00: 00 No Lancets Super Thin n/s Lancets Super Thin n/s Lancets Super Thin n/s 05-26 00:00: 00 No Lancets Super Thin n/s Lancets Super Thin n/s Lancets Super Thin n/s 05-26 00:00: 00 No Lancets Super Thin n/s [facility] Lancets Super Thin n/s Lancets Super Thin n/s 05-26 00:00: 00 No Lancets Super Thin n/s Lancets Super Thin n/s Lancets Super Thin n/s 05-26 00:00: 00 No Lancets Super Thin n/s Lancets Super Thin n/s Lancets Super Thin n/s 05-26 00:00: 00 No Lancets Super Thin n/s Lancets Super Thin n/s Lancets Super Thin n/s 05-26 00:00: 00 No Lancets Super Thin n/s Lancets Super Thin n/s Lancets Super Thin n/s 05-26 00:00: 00 No Lancets Super Thin n/s Lancets Super Thin n/s Lancets Super Thin n/s 05-26 00:00: 00 No Lancets Super Thin n/s Lisinopril Lisinopril Yes Na Roche 1 tablet [facility] Loryna Loryna Yes Na Roche 1 tablet [facility] Metformin HCl Metformin HCl Yes Na Roche 1 tablet with meals [facility] Lisinopril 20 MG Lisinopril 20 MG No 1{table t} QD Lisinopril 20 MG Loryna 3-0.02 MG Loryna 3-0.02 MG No 1{table t} QD Loryna 3-0.02 MG Metformin HCl 500 MG Metformin HCl 500 MG No 1{table t_with_ meals} BID Metformin HCl 500 MG Gabapentin 300 MG Gabapentin 300 MG No 1{capsu le} TID Gabapentin 300 MG Lisinopril 20 MG Lisinopril 20 MG No 1{table t} QD Lisinopril 20 MG Loryna 3-0.02 MG Loryna 3-0.02 MG No 1{table t} QD Loryna 3-0.02 MG Gabapentin 300 MG Gabapentin 300 MG No 1{capsu le} TID Gabapentin 300 MG Metformin HCl 500 MG Metformin HCl 500 MG No 1{table t_with_ meals} BID Metformin HCl 500 MG Metformin HCl 500 MG Metformin HCl 500 MG No 1{table t_with_ meals} BID Metformin HCl 500 MG Loryna 3-0.02 MG Loryna 3-0.02 MG No 1{table t} QD Loryna 3-0.02 MG Gabapentin 300 MG Gabapentin 300 MG No 1{capsu le} TID Gabapentin 300 MG Lisinopril 20 MG Lisinopril 20 MG No 1{table t} QD Lisinopril 20 MG Lisinopril 20 MG Lisinopril 20 MG No 1{table t} QD Lisinopril 20 MG Gabapentin 300 MG Gabapentin 300 MG No 1{capsu le} TID Gabapentin 300 MG Loryna 3-0.02 MG Loryna 3-0.02 MG No 1{table t} QD Loryna 3-0.02 MG Metformin HCl 500 MG Metformin HCl 500 MG No 1{table t_with_ meals} BID Metformin HCl 500 MG Lantus SoloStar 100 UNIT/ML Lantus SoloStar 100 UNIT/ML No QD Lantus SoloStar 100 UNIT/ML Metformin HCl 500 MG Metformin HCl 500 MG No 1{table t_with_ meals} BID Metformin HCl 500 MG Loryna 3-0.02 MG Loryna 3-0.02 MG No 1{table t} QD Loryna 3-0.02 MG Lisinopril 20 MG Lisinopril 20 MG No 1{table t} QD Lisinopril 20 MG Azithromyci n 250 MG Azithromyci n 250 MG No QD Azithromyc in 250 MG Gabapentin 300 MG Gabapentin 300 MG No 1{capsu le} TID Gabapentin 300 MG Lantus SoloStar 100 UNIT/ML Lantus SoloStar 100 UNIT/ML No QD Lantus SoloStar 100 UNIT/ML [facility] Metformin HCl 500 MG Metformin HCl 500 MG No 1{table t_with_ meals} BID Metformin HCl 500 MG [facility] Loryna 3-0.02 MG Loryna 3-0.02 MG No 1{table t} QD Loryna 3-0.02 MG [facility] Lisinopril 20 MG Lisinopril 20 MG No 1{table t} QD Lisinopril 20 MG [facility] Azithromyci n 250 MG Azithromyci n 250 MG No QD Azithromyc in 250 MG [facility] Gabapentin 300 MG Gabapentin 300 MG No 1{capsu le} TID Gabapentin 300 MG [facility] Metformin HCl 500 MG Metformin HCl 500 MG No 1{table t_with_ meals} BID Metformin HCl 500 MG Loryna 3-0.02 MG Loryna 3-0.02 MG No 1{table t} QD Loryna 3-0.02 MG Lantus SoloStar 100 UNIT/ML Lantus SoloStar 100 UNIT/ML No QD Lantus SoloStar 100 UNIT/ML Gabapentin 300 MG Gabapentin 300 MG No 1{capsu le} TID Gabapentin 300 MG Azithromyci n 250 MG Azithromyci n 250 MG No QD Azithromyc in 250 MG Lisinopril 20 MG Lisinopril 20 MG No 1{table t} QD Lisinopril 20 MG Lisinopril 20 MG Lisinopril 20 MG No 1{table t} QD Lisinopril 20 MG Metformin HCl 500 MG Metformin HCl 500 MG No 1{table t_with_ meals} BID Metformin HCl 500 MG Gabapentin 300 MG Gabapentin 300 MG No 1{capsu le} TID Gabapentin 300 MG Azithromyci n 250 MG Azithromyci n 250 MG No QD Azithromyc in 250 MG Loryna 3-0.02 MG Loryna 3-0.02 MG No 1{table t} QD Loryna 3-0.02 MG Lantus SoloStar 100 UNIT/ML Lantus SoloStar 100 UNIT/ML No QD Lantus SoloStar 100 UNIT/ML Metformin HCl 500 MG Metformin HCl 500 MG No 1{table t_with_ meals} BID Metformin HCl 500 MG Lisinopril 20 MG Lisinopril 20 MG No 1{table t} QD Lisinopril 20 MG Azithromyci n 250 MG Azithromyci n 250 MG No QD Azithromyc in 250 MG Lantus SoloStar 100 UNIT/ML Lantus SoloStar 100 UNIT/ML No QD Lantus SoloStar 100 UNIT/ML Gabapentin 300 MG Gabapentin 300 MG No 1{capsu le} TID Gabapentin 300 MG Loryna 3-0.02 MG Loryna 3-0.02 MG No 1{table t} QD Loryna 3-0.02 MG Metformin HCl 500 MG Metformin HCl 500 MG No 1{table t_with_ meals} BID Metformin HCl 500 MG Lisinopril 20 MG Lisinopril 20 MG No 1{table t} QD Lisinopril 20 MG Azithromyci n 250 MG Azithromyci n 250 MG No QD Azithromyc in 250 MG Lantus SoloStar 100 UNIT/ML Lantus SoloStar 100 UNIT/ML No QD Lantus SoloStar 100 UNIT/ML Gabapentin 300 MG Gabapentin 300 MG No 1{capsu le} TID Gabapentin 300 MG Loryna 3-0.02 MG Loryna 3-0.02 MG No 1{table t} QD Loryna 3-0.02 MG Lisinopril 20 MG Lisinopril 20 MG No 1{table t} QD Lisinopril 20 MG Metformin HCl 500 MG Metformin HCl 500 MG No 1{table t_with_ meals} BID Metformin HCl 500 MG Loryna 3-0.02 MG Loryna 3-0.02 MG No 1{table t} QD Loryna 3-0.02 MG Metformin HCl 500 MG Metformin HCl 500 MG No 1{table t_with_ meals} BID Metformin HCl 500 MG Gabapentin 300 MG Gabapentin 300 MG No 1{capsu le} TID Gabapentin 300 MG Lisinopril 20 MG Lisinopril 20 MG No 1{table t} QD Lisinopril 20 MG Loryna 3-0.02 MG Loryna 3-0.02 MG No 1{table t} QD Loryna 3-0.02 MG Immunizations Ordered Immunization Name Filled Immunization Name Date Status Comments Source TDAP 2013-02-09 00:00:[address] [facility] TDAP 2013-02-09 00:00:[address] [facility] TDAP 2013-02-09 00:00:[address] [facility] TDAP 2013-02-09 00:00:[address] [facility] TDAP 2013-02-09 00:00:[address] [facility] TDAP 2013-02-09 00:00:[address] [facility] TDAP 2013-02-09 00:00:[address] [facility] TDAP 2013-02-09 00:00:[address] [facility] TDAP 2013-02-09 00:00:[address] [facility] TDAP 2013-02-09 00:00:[address] [facility] TDAP 2013-02-09 00:00:[address] [facility] TDAP 2013-02-09 00:00:[address] [facility] TDAP 2013-02-09 00:00:[address] [facility] TDAP 2013-02-09 00:00:[address] [facility] TDAP 2013-02-09 00:00:[address] [facility] TDAP 2013-02-09 00:00:[address] [facility] TDAP 2013-02-09 00:00:[address] [facility] TDAP 2013-02-09 00:00:[address] [facility] TDAP 2013-02-09 00:00:[address] [facility] TDAP 2013-02-09 00:00:[address] [facility] TDAP 2013-02-09 00:00:[address] [facility] TDAP 2013-02-09 00:00:[address] [facility] TDAP 2013-02-09 00:00:[address] [facility] TDAP 2013-02-09 00:00:[address] [facility] TDAP 2013-02-09 00:00:[address] [facility] TDAP 2013-02-09 00:00:[address] [facility] TDAP 2013-02-09 00:00:[address] [facility] TDAP 2013-02-09 00:00:[address] [facility] TDAP 2013-02-09 00:00:[address] [facility] TDAP 2013-02-09 00:00:[address] [facility] TDAP 2013-02-09 00:00:[address] [facility] TDAP 2013-02-09 00:00:[address] [facility] TDAP 2013-02-09 00:00:[address] [facility] TDAP 2013-02-09 00:00:[address] [facility] TDAP 2013-02-09 00:00:[address] [facility] TDAP 2013-02-09 00:00:[address] [facility] TDAP 2013-02-09 00:00:[address] [facility] TDAP 2013-02-09 00:00:[address] [facility] TDAP 2013-02-09 00:00:[address] [facility] TDAP 2013-02-09 00:00:[address] [facility] TDAP 2013-02-09 00:00:[address] [facility] TDAP 2013-02-09 00:00:[address] [facility] TDAP 2013-02-09 00:00:[address] [facility] TDAP 2013-02-09 00:00:[address] [facility] TDAP 2013-02-09 00:00:[address] [facility] TDAP 2013-02-09 00:00:[address] [facility] TDAP 2013-02-09 00:00:[address] [facility] TDAP 2013-02-09 00:00:[address] [facility] TDAP 2013-02-09 00:00:[address] [facility] TDAP 2013-02-09 00:00:[address] [facility] TDAP 2013-02-09 00:00:[address] [facility] TDAP 2013-02-09 00:00:[address] [facility] TDAP 2013-02-09 00:00:[address] [facility] TDAP 2013-02-09 00:00:[address] [facility] TDAP 2013-02-09 00:00:[address] [facility] TDAP 2013-02-09 00:00:[address] [facility] TDAP 2013-02-09 00:00:[address] [facility] TDAP 2013-02-09 00:00:[address] [facility] TDAP 2013-02-09 00:00:[address] [facility] TDAP 2013-02-09 00:00:[address] [facility] TDAP 2013-02-09 00:00:[address] [facility] TDAP 2013-02-09 00:00:[address] [facility] TDAP 2013-02-09 00:00:[address] [facility] TDAP 2013-02-09 00:00:[address] [facility] TDAP 2013-02-09 00:00:[address] [facility] TDAP 2013-02-09 00:00:[address] [facility] TDAP 2013-02-09 00:00:[address] [facility] TDAP 2013-02-09 00:00:[address] [facility] TDAP 2013-02-09 00:00:[address] [facility] TDAP 2013-02-09 00:00:[address] [facility] TDAP 2013-02-09 00:00:[address] [facility] TDAP 2013-02-09 00:00:[address] [facility] TDAP 2013-02-09 00:00:[address] [facility] TDAP 2013-02-09 00:00:[address] [facility] TDAP 2013-02-09 00:00:[address] [facility] TDAP 2013-02-09 00:00:[address] [facility] TDAP 2013-02-09 00:00:[address] [facility] TDAP 2013-02-09 00:00:[address] [facility] TDAP 2013-02-09 00:00:[address] [facility] TDAP 2013-02-09 00:00:[address] [facility] TDAP 2013-02-09 00:00:[address] [facility] TDAP 2013-02-09 00:00:[address] [facility] TDAP 2013-02-09 00:00:[address] [facility] TDAP 2013-02-09 00:00:[address] [facility] TDAP 2013-02-09 00:00:[address] [facility] TDAP 2013-02-09 00:00:[address] [facility] TDAP 2013-02-09 00:00:[address] [facility] TDAP 2013-02-09 00:00:[address] [facility] TDAP 2013-02-09 00:00:[address] [facility] TDAP 2013-02-09 00:00:[address] [facility] TDAP 2013-02-09 00:00:[address] [facility] TDAP 2013-02-09 00:00:[address] [facility] TDAP 2013-02-09 00:00:[address] [facility] TDAP 2013-02-09 00:00:[address] [facility] TDAP 2013-02-09 00:00:[address] [facility] TDAP 2013-02-09 00:00:[address] [facility] TDAP 2013-02-09 00:00:[address] [facility] TDAP 2013-02-09 00:00:[address] [facility] TDAP 2013-02-09 00:00:[address] [facility] TDAP 2013-02-09 00:00:[address] [facility] TDAP Unknown Completed [facility] TDAP Unknown Completed [facility] TDAP Unknown Completed [facility] TDAP Unknown Com[facility] TDAP Unknown [facility] TDAP [facility] TDAP [facility] TDAP [facility] TDAP Unknown Completed [facility] TDAP Unknown Com[address] [facility] TDAP Unknown Completed [facility] TDAP Unknown Completed [facility] TDAP Unknown Completed [facility] TDAP Unknown Completed [facility] Vital Signs Vital Name Observation Time Observation Value Comments S ource Systolic blood pressure 2022-11-01 01:18:46 119 mm[Hg] [facility] Diastolic blood pressure 2022-11-01 01:18:46 86 mm[Hg] [facility] Heart rate 2022-11-01 01:18:46 74 /min [facility] Body temperature 2022-11-01 01:18:[address] [facility] Respiratory rate 2022-11-01 01:18:46 18 /min [facility] Body weight 2022-10-31 21:56:00 106.595 kg [facility] BMI 2022-10-31 21:56:00 41.63 kg/m2 [facility] Oxygen saturation in Arterial blood by Pulse oximetry 2022-10-31 21:56:00 99 /min [facility] Systolic blood pressure 2022-10-16 18:15:00 113 mm[Hg] [facility] Diastolic blood pressure 2022-10-16 18:15:00 71 mm[Hg] [facility] Heart rate 2022-10-16 18:15:00 109 /min [facility] Body temperature 2022-10-16 18:15:[address] [facility] Respiratory rate 2022-10-16 18:15:00 16 /min [facility] Body height 2022-10-16 18:15:00 160 cm [facility] Body weight 2022-10-16 18:15:00 106.777 kg [facility] BMI 2022-10-16 18:15:00 41.70 kg/m2 [facility] Oxygen saturation in Arterial blood by Pulse oximetry 2022-10-16 18:15:00 97 /min [facility] Systolic blood pressure 2022-10-14 19:04:00 114 mm[Hg] [facility] Diastolic blood pressure 2022-10-14 19:04:00 78 mm[Hg] [facility] Heart rate 2022-10-14 19:04:00 104 /min [facility] Body height 2022-10-14 19:04:00 160 cm [facility] Body weight 2022-10-14 19:04:00 107.457 kg [facility] BMI 2022-10-14 19:04:00 41.96 kg/m2 [facility] Systolic blood pressure 2022-09-03 17:38:00 117 mm[Hg] [facility] Diastolic blood pressure 2022-09-03 17:38:00 79 mm[Hg] [facility] Heart rate 2022-09-03 17:38:00 83 /min [facility] Body temperature 2022-09-03 17:38:[address] [facility] Respiratory rate 2022-09-03 17:38:00 18 /min [facility] Body height 2022-09-03 17:38:00 160 cm [facility] Body weight 2022-09-03 17:38:00 109.634 kg [facility] BMI 2022-09-03 17:38:00 42.82 kg/m2 [facility] Oxygen saturation in Arterial blood by Pulse oximetry 2022-09-03 17:38:00 98 /min [facility] Systolic blood pressure 2022-09-02 21:26:00 107 mm[Hg] [facility] Diastolic blood pressure 2022-09-02 21:26:00 67 mm[Hg] [facility] Heart rate 2022-09-02 21:26:00 96 /min [facility] Body temperature 2022-09-02 21:26:[address] [facility] Respiratory rate 2022-09-02 21:26:00 18 /min [facility] Body height 2022-09-02 21:26:00 160 cm [facility] Body weight 2022-09-02 21:26:00 110.088 kg [facility] BMI 2022-09-02 21:26:00 42.99 kg/m2 [facility] Oxygen saturation in Arterial blood by Pulse oximetry 2022-09-02 21:26:00 98 /min [facility] Systolic blood pressure 2022-08-14 17:51:00 114 mm[Hg] [facility] Diastolic blood pressure 2022-08-14 17:51:00 76 mm[Hg] [facility] Heart rate 2022-08-14 17:51:00 82 /min [facility] Body temperature 2022-08-14 17:51:[address] [facility] Respiratory rate 2022-08-14 17:51:00 19 /min [facility] Body height 2022-08-14 17:51:00 167.6 cm [facility] Body weight 2022-08-14 17:51:00 108.183 kg [facility] BMI 2022-08-14 17:51:00 38.49 kg/m2 [facility] Oxygen saturation in Arterial blood by Pulse oximetry 2022-08-14 17:51:00 99 /min [facility] Systolic blood pressure 2022-08-13 15:42:00 116 mm[Hg] [facility] Diastolic blood pressure 2022-08-13 15:42:00 83 mm[Hg] [facility] Heart rate 2022-08-13 15:42:00 80 /min [facility] Body temperature 2022-08-13 15:42:[address] [facility] Respiratory rate 2022-08-13 15:42:00 18 /min [facility] Body height 2022-08-13 15:42:00 160 cm [facility] Body weight 2022-08-13 15:42:00 109.317 kg [facility] BMI 2022-08-13 15:42:00 42.69 kg/m2 [facility] Systolic blood pressure 2022-06-10 16:36:00 106 mm[Hg] [facility] Diastolic blood pressure 2022-06-10 16:36:00 74 mm[Hg] [facility] Heart rate 2022-06-10 15:28:00 88 /min [facility] Body height 2022-06-10 15:28:00 160 cm [facility] Body weight 2022-06-10 15:28:00 108.41 kg [facility] BMI 2022-06-10 15:28:00 42.34 kg/m2 [facility] Oxygen saturation in Arterial blood by Pulse oximetry 2022-06-10 15:28:00 97 /min [facility] Systolic blood pressure 2022-05-23 20:11:00 119 mm[Hg] [facility] Diastolic blood pressure 2022-05-23 20:11:00 72 mm[Hg] [facility] Heart rate 2022-05-23 20:11:00 73 /min [facility] Body temperature 2022-05-23 20:11:[address] [facility] Respiratory rate 2022-05-23 20:11:00 20 /min [facility] Body height 2022-05-23 20:11:00 160 cm [facility] Body weight 2022-05-23 20:11:00 108.138 kg [facility] BMI 2022-05-23 20:11:00 42.23 kg/m2 [facility] Oxygen saturation in Arterial blood by Pulse oximetry 2022-05-23 20:11:00 97 /min [facility] Systolic blood pressure 2022-03-31 15:24:00 117 mm[Hg] [facility] Diastolic blood pressure 2022-03-31 15:24:00 76 mm[Hg] [facility] Body weight 2022-03-31 15:24:00 105.96 kg [facility] BMI 2022-03-31 15:24:00 41.38 kg/m2 [facility] Systolic blood pressure 2022-03-18 19:52:00 117 mm[Hg] [facility] Diastolic blood pressure 2022-03-18 19:52:00 80 mm[Hg] [facility] Heart rate 2022-03-18 19:52:00 72 /min [facility] Body temperature 2022-03-18 19:52:[address] [facility] Respiratory rate 2022-03-18 19:52:00 16 /min [facility] Body height 2022-03-18 19:52:00 160 cm [facility] Body weight 2022-03-18 19:52:00 103.874 kg [facility] BMI 2022-03-18 19:52:00 40.57 kg/m2 [facility] Oxygen saturation in Arterial blood by Pulse oximetry 2022-03-18 19:52:00 97 /min [facility] Systolic blood pressure 2022-03-02 19:39:00 105 mm[Hg] [facility] Diastolic blood pressure 2022-03-02 19:39:00 72 mm[Hg] [facility] Heart rate 2022-03-02 19:39:00 83 /min [facility] Body temperature 2022-03-02 19:39:[address] [facility] Respiratory rate 2022-03-02 19:39:00 16 /min [facility] Body height 2022-03-02 19:39:00 160 cm [facility] Body weight 2022-03-02 19:39:00 102.921 kg [facility] BMI 2022-03-02 19:39:00 40.19 kg/m2 [facility] Oxygen saturation in Arterial blood by Pulse oximetry 2022-03-02 19:39:00 98 /min [facility] Systolic blood pressure 2022-02-25 20:52:00 122 mm[Hg] [facility] Diastolic blood pressure 2022-02-25 20:52:00 77 mm[Hg] [facility] Heart rate 2022-02-25 20:52:00 90 /min [facility] Body temperature 2022-02-25 20:52:[address] [facility] Respiratory rate 2022-02-25 20:52:00 18 /min [facility] Body height 2022-02-25 20:52:00 160 cm [facility] Body weight 2022-02-25 20:52:00 105.416 kg [facility] BMI 2022-02-25 20:52:00 41.17 kg/m2 [facility] Oxygen saturation in Arterial blood by Pulse oximetry 2022-02-25 20:52:00 98 /min [facility] Systolic blood pressure 2022-02-25 15:38:00 102 mm[Hg] [facility] Diastolic blood pressure 2022-02-25 15:38:00 70 mm[Hg] [facility] Heart rate 2022-02-25 15:38:00 82 /min [facility] Body height 2022-02-25 15:38:00 160 cm [facility] Body weight 2022-02-25 15:38:00 103.874 kg [facility] BMI 2022-02-25 15:38:00 40.57 kg/m2 [facility] Oxygen saturation in Arterial blood by Pulse oximetry 2022-02-25 15:38:00 98 /min [facility] Systolic blood pressure 2022-02-20 01:34:22 107 mm[Hg] [facility] Diastolic blood pressure 2022-02-20 01:34:22 77 mm[Hg] [facility] Heart rate 2022-02-20 01:34:22 82 /min [facility] Body temperature 2022-02-20 01:34:[address] [facility] Respiratory rate 2022-02-20 01:34:22 18 /min [facility] Oxygen saturation in Arterial blood by Pulse oximetry 2022-02-20 01:34:22 100 /min [facility] Body height 2022-02-20 00:06:00 160 cm [facility] Body weight 2022-02-20 00:06:00 102.059 kg [facility] BMI 2022-02-20 00:06:00 39.86 kg/m2 [facility] Systolic blood pressure 2022-02-12 15:11:00 112 mm[Hg] [facility] Diastolic blood pressure 2022-02-12 15:11:00 73 mm[Hg] [facility] Heart rate 2022-02-12 15:11:00 75 /min [facility] Respiratory rate 2022-02-12 15:11:00 18 /min [facility] Body height 2022-02-12 15:11:00 160 cm [facility] Body weight 2022-02-12 15:11:00 102.059 kg [facility] BMI 2022-02-12 15:11:00 39.86 kg/m2 [facility] Oxygen saturation in Arterial blood by Pulse oximetry 2022-02-12 15:11:00 98 /min [facility] Systolic blood pressure 2022-01-28 17:18:00 100 mm[Hg] [facility] Diastolic blood pressure 2022-01-28 17:18:00 70 mm[Hg] [facility] Heart rate 2022-01-28 17:18:00 107 /min [facility] Body height 2022-01-28 17:18:00 160 cm [facility] Body weight 2022-01-28 17:18:00 102.059 kg [facility] BMI 2022-01-28 17:18:00 39.86 kg/m2 [facility] Oxygen saturation in Arterial blood by Pulse oximetry 2022-01-28 17:18:00 99 /min [facility] Systolic blood pressure 2021-10-10 16:15:00 109 mm[Hg] [facility] Diastolic blood pressure 2021-10-10 16:15:00 74 mm[Hg] [facility] Heart rate 2021-10-10 16:15:00 90 /min [facility] Body temperature 2021-10-10 16:15:[address] [facility] Respiratory rate 2021-10-10 16:15:00 18 /min [facility] Body height 2021-10-10 16:15:00 160 cm [facility] Body weight 2021-10-10 16:15:00 102.967 kg [facility] BMI 2021-10-10 16:15:00 40.21 kg/m2 [facility] Oxygen saturation in Arterial blood by Pulse oximetry 2021-10-10 16:15:00 98 /min [facility] Systolic blood pressure 2021-07-01 21:03:00 115 mm[Hg] [facility] Diastolic blood pressure 2021-07-01 21:03:00 75 mm[Hg] [facility] Heart rate 2021-07-01 21:03:00 81 /min [facility] weight 2021-07-01 21:03:00 103.874 kg [facility] BMI 2021-07-01 21:03:00 40.57 kg/m2 [facility] Oxygen saturation in Arterial blood by Pulse oximetry 2021-07-01 21:03:00 97 /min [facility] height 2019-11-22 10:00:00 63 [in_i] Commo n [facility] weight 2019-11-22 10:00:00 223.8 [lb_av] Co mmon [facility] temperature 2019-11-22 10:00:00 97.8 [degF] Com mon [facility] bmi 2019-11-22 10:00:00 39.64 kg/m2 Comm on [facility] oximetry 2019-11-22 10:00:00 97 % Commo n [facility] respiratory rate 2019-11-22 10:00:00 15 /min [facility] blood pressure systolic 2019-11-22 10:00:00 118 mm[Hg] [facility] blood pressure diastolic 2019-11-22 10:00:00 68 mm[Hg] [facility] height 2019-11-14 13:00:00 63 [in_i] Commo n [facility] weight 2019-11-14 13:00:00 223.8 [lb_av] Co mmon [facility] temperature 2019-11-14 13:00:00 97.7 [degF] Com mon [facility] bmi 2019-11-14 13:00:00 39.64 kg/m2 Comm on [facility] oximetry 2019-11-14 13:00:00 97 % Commo n [facility] respiratory rate 2019-11-14 13:00:00 15 /min [facility] blood pressure systolic 2019-11-14 13:00:00 110 mm[Hg] [facility] blood pressure diastolic 2019-11-14 13:00:00 68 mm[Hg] [facility] Procedures Procedure Date / Time Performed Performing Clinician Source CT ABDOMEN PELVIS W CONTRAST 2022-11-01 00:06:[address] [facility] POCT TEST 2022-10-31 23:19:[address] [facility] LIPASE 2022-10-31 23:14:00 [facility] COMP. METABOLIC PANEL ([id number]) 2022-10-31 23:14:[address] [facility] CBC WITH DIFF 2022-10-31 23:14:00 Chance Hammer [facility] URINALYSIS 2022-10-31 23:14:00 Chance Hammer [facility] ASSIGNMENT OF BENEFITS 2022-10-31 22:50:52 Docto r Unassigned, Crump [facility] CONSENT/REFUSAL FOR DIAGNOSIS AND TREATMENT 2022-10-31 21:51:30 Doctor Unassigned, Crump [facility] DISCLOSURE AND CONSENT, MEDICAL AND SURGICAL PROCEDURES 2022-10-16 05:01:00 Doctor Unassigned, Crump [facility] REFERRAL- REQUEST/RESPONSE 2022-10-01 05:01:00 Doctor Unassigned, Crump [facility] DME/SUPPLY JUSTIFICATION 2022-09-24 05:01:00 Khoa lassiter Unassigned, [place] [facility] FL UPPER GI AIR CONTRAST 2022-09-10 18:52:[address] [facility] REFERRAL- REQUEST/RESPONSE 2022-09-02 05:01:00 Doctor Unassigned, Crump [facility] POCT HEMOGLOBIN A1C TEST 2022-08-13 17:01:[address] [facility] INSURANCE CORRESPONDENCE 2022-07-02 05:01:00 Doc sravani Unassigned, [place]ump [facility] PATIENT FINANCIAL POLICY 2022-06-10 15:26:49 Doctor Unassigned, Crump [facility] XR FOOT 3+ VW LEFT 2022-05-23 21:33:[address] [facility] ASSIGNMENT OF BENEFITS 2022-05-23 21:18:45 Dwain sandoval Unassigned, Crump [facility] MR BRAIN WO CONTRAST 2022-03-18 16:31:[address] [facility] POCT SARS-COV-2 ANTIGEN (BINAX NOW) 2022-03-02 19:45:[address] [facility] CONSENT/REFUSAL FOR DIAGNOSIS AND TREATMENT 2022-02-20 00:01:44 Doctor Unassigned, Crump [facility] NOTICE OF PRIVACY PRACTICES 2022-02-20 00:01:09 Doctor Unassigned, Crump [facility] CT HEAD WO CONTRAST 2022-02-17 20:30:[address] [facility] LIPID PANEL ([id number])(TOTAL CHOLESTEROL, TRIGLYCERIDES, HDL) 2022-01-28 18:11:[address] [facility] CBC WITH DIFF 2022-01-28 18:11:00 Rita Baron [facility] FREE T4 2022-01-28 [facility]:11[facility] 2022-01-28 17:28:[address] [facility] ASSIGNMENT OF BENEFITS 2022-01-28 17:05:10 Docto r Unassigned, Crump [facility] POCT SARS-COV-2 ANTIGEN (BINAX NOW) 2021-10-10 16:22:[address] [facility] POCT HEMOGLOBIN A1C TEST 2021-07-01 21:12:[address] [facility] DME/SUPPLY JUSTIFICATION 2021-03-31 06:01:00 Doc tor Unassigned, Crump [facility] Encounters Start Date/Time End Date/Time Encounter Type Admission Type Attending [facility] Facility Care Department Encounter ID Source 2022-12-04 15:19:10 Outpatient T[facility]AN [facility]Y [facility] [id number] [facility] 2021-03-06 12:28:47 Outpatient Roche, Na STLMLC STLMLC [id number] [facility] 2021-03-06 12:28:12 Outpatient Roche, Na STLMLC STLMLC [id number] [facility] 2021-03-06 12:25:04 Outpatient Roche, Na STLMLC STLMLC [id number] [facility] 2021-03-06 12:17:52 Outpatient Roche, Na STLMLC STLMLC [id number] [facility] 2021-03-06 12:15:18 Outpatient Roche, Na STLMLC STLMLC [id number] [facility] 2021-03-06 12:13:42 Outpatient Roche, Na STLMLC STLMLC [id number] [facility] 2021-03-06 11:59:23 Outpatient Roche, Na STLMLC STLMLC [id number] [facility] 2021-03-06 11:58:53 Outpatient Roche, Na STLMLC STLMLC [id number] [facility] 2021-03-06 11:56:53 Outpatient Roche, Na STLMLC STLMLC [id number] [facility] 2021-03-06 11:54:19 Outpatient RocheMarcela west STLMLC STLMLC [id number] [facility] 2021-03-06 11:52:02 Outpatient RocheMarcela west STLMLC STLMLC [id number] [facility] 2021-03-06 11:51:35 Outpatient RocheMarcela west STLMLC STLMLC [id number] [facility] 2021-03-06 11:51:00 Outpatient RocheMarcela west STJANELLC STLMLC [id number] [facility] 2021-03-06 11:49:29 Outpatient Marcela Roche STJANELLC STLMLC [id number] [facility] 2021-03-06 11:48:31 Outpatient Marcela Roche STJANELLC STLMLC [id number] [facility] 2021-03-06 11:46:10 Outpatient Marcela Roche STLMLC STLMLC [id number] [facility] 2023-03-31 09:30:00 2023-03-31 09:30:00 Outpatient NUZHAT STERN [facility] [id number] [facility] 2023-03-10 14:20:07 2023-03-10 14:20:07 Outpatient [facility] [id number] Davion Blandon 2023-03-02 09:10:08 2023-03-02 09:10:08 Outpatient [facility] [id number] Davion Blandon 2023-01-15 13:00:00 2023-01-15 13:00:00 Outpatient DAWN FONG [facility] [id number] [facility] 2022-12-09 00:00:00 2022-12-09 00:00:00 Outpatient GC_GCBZW_Ka diyala_S [facility] [id number] [facility] 2022-12-05 14:48:57 2022-12-05 14:48:57 Outpatient [facility] [id number] Davion Blandon 2022-12-04 00:00:00 2022-12-04 00:00:00 Patient Secure Msg Doctor Unassigned, Cr[place] [facility] 1..840.114 350.1.13.10 4.2.7.2.686 [id number] [facility] 2022-12-02 15:37:55 2022-12-02 15:37:55 Outpatient [facility] [id number] Davion Blandon 2022-11-24 00:00:00 2022-11-24 00:00:00 [facility] 1..840.114 350.1.13.10 4.2.7.2.686 [id number] [facility] 2022-11-17 16:00:00 2022-11-17 16:00:00 Outpatient R HODA, OGECHUKWU HODA, OGECHUKWU [facility] [id number] [facility] 2022-11-17 13:30:00 2022-11-17 13:30:00 Outpatient R HODA, OGECHUKWU HODA, OGECHUKWU [facility] [id number] [facility] 2022-10-31 16:57:00 2022-10-31 20:30:00 Emergency X JAQUELIN, SALMIN JAQUELIN, [facility] ERT [id number] [facility] 2022-10-31 16:57:00 2022-10-31 20:30:00 [facility] 1..840.114 350.1.13.10 4.2.7.2.686 [id number] [facility] 2022-10-27 00:00:00 2022-10-27 00:00:00 Patient Secure Msg Capellan, [facility] 1.20.114 350.1.13.10 4.2.7.2.686 [id number] [facility] 2022-10-21 08:30:00 2022-10-21 08:45:00 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 2, [facility] Lab Timi [facility] BUILD[facility] 1.2840.114 350.1.13.10 4.2.7.2.686 [id number] [facility] 2022-10-21 08:30:00 2022-10-21 08:30:00 Outpatient R TIMI [facility] [id number] [facility] 2022-10-21 00:00:00 2022-10-21 00:00:00 Refill Radha Drummond [facility] 1.2840.114 350.1.13.10 4.2.7.2.686 [id number] [facility] 2022-10-16 14:00:00 2022-10-16 14:15:00 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 [facility] Timi [facility] 1.20.114 350.1.13.10 4.2.7.2.686 [id number] [facility] 2022-10-16 13:00:00 2022-10-16 13:46:42 Outpatient R TIMI [facility] [id number] [facility] 2022-10-16 13:00:00 2022-10-16 13:46:42 Office Visit Timi [facility] 1.2.114 350.1.13.10 4.2.7.2.686 [id number] [facility] 2022-10-16 00:00:00 2022-10-16 00:00:00 Orders Only Doctor Unassigned, Cr[place] [facility] 1.2840.114 350.1.13.10 4.2.7.2.686 [id number] [facility] 2022-10-14 13:30:00 2022-10-14 14:57:38 Outpatient R [facility]ASON [facility] [id number] [facility] 2022-10-14 13:30:00 2022-10-14 14:57:38 [place] [facility] 1.2840.114 350.1.13.10 4.2.7.2.686 [id number] [facility] 2022-10-06 00:00:00 2022-10-06 00:00:00 Telephone [facility] 1.840.114 350.1.13.10 4.2.7.2.686 [id number] [facility] 2022-10-06 00:00:00 2022-10-06 00:00:00 Patient Secure Msg [facility] BUILD[facility] 1.2840.114 350.1.13.10 4.2.7.2.686 [id number] [facility] 2022-10-01 10:30:00 2022-10-01 10:30:00 Outpatient R MIKY LYDIA [facility] [id number] [facility] 2022-10-01 00:00:00 2022-10-01 00:00:00 Telephone Miky Lydia [facility] 1.840.114 350.1.13.10 4.2.7.2.686 [id number] [facility] 2022-10-01 00:00:00 2022-10-01 00:00:00 Orders Only Doctor Unassigned, Cr[place] [facility] 1.2.840.114 350.1.13.10 4.2.7.2.686 [id number] [id number] [facility] 2022-09-24 00:00:00 2022-09-24 00:00:00 Refill Radha Drummond [facility] 1..840.114 350.1.13.10 4.2.7.2.686 [id number] [facility] 2022-09-24 00:00:00 2022-09-24 00:00:00 Orders Only Doctor Unassigned, Crump [facility] .840.114 350.1.13.10 4.2.7.2.686 [id number] [id number] [facility] 2022-09-17 00:00:00 2022-09-17 00:00:00 Patient Secure Msjenna LupeAlo [facility] 1..840.114 350.1.13.10 4.2.7.2.686 [id number] [facility] 2022-09-10 12:27:14 2022-09-10 23:59:00 Outpatient R LYDIA BOLAÑOS [facility] [id number] [facility] 2022-09-10 10:29:45 2022-09-10 23:59:00 Hospital Encounter Lydia Bolaños [facility] 1.840.114 350.1.13.10 4.2.7.2.686 [id number] [facility] 2022-09-08 14:30:00 2022-09-08 14:30:00 Outpatient RYLAN MARQUES [facility] [id number] [facility] 2022-09-08 00:00:00 2022-09-08 00:00:00 Telephone Elzbieta Gomez [facility] 1.2.840.114 350.1.13.10 4.2.7.2.686 [id number] [facility] 2022-09-08 00:00:00 2022-09-08 00:00:00 Case Management Pritesh Sun [facility] 1..840.114 350.1.13.10 4.2.7.2.686 [id number] [facility] 2022-09-04 09:30:00 2022-09-04 09:30:00 Outpatient R DAWN CAPELLAN [facility] [id number] [facility] 2022-09-03 12:30:00 2022-09-03 12:59:33 Outpatient R JO IGLESIAS [facility] [id number] [facility] 2022-09-03 12:30:00 2022-09-03 12:59:33 Urgent Care Jo Iglesias Unknown, Attending [facility] 1.2.840.114 350.1.13.10 4.2.7.2.686 [id number] [facility] 2022-09-03 11:00:00 2022-09-03 11:00:00 Outpatient R [facility] [id number] [facility] 2022-09-03 00:00:00 2022-09-03 00:00:00 Letter (Out) Jo Iglesias [facility]?RONAN[facility]anor [facility] 1.2.840.114 350.1.13.10 4.2.7.2.686 [id number] [facility] 2022-09-02 16:15:00 2022-09-02 17:23:00 Outpatient R LYDIA BOLAÑOS [facility] [id number] [facility] 2022-09-02 16:15:00 2022-09-02 17:23:00 Office Visit Lydia Bolaños [facility] 1.2840.114 350.1.13.10 4.2.7.2.686 [id number] [facility] 2022-09-02 00:00:00 2022-09-02 00:00:00 Orders Only Doctor Unassigned, Crump [facility] 1.2840.114 350.1.13.10 4.2.7.2.686 [id number] [facility] 2022-08-20 00:00:00 2022-08-20 00:00:00 Patient Secure Msg Doctor Unassigned, Crump [facility] 1.2840.114 350.1.13.10 4.2.7.2.686 [id number] [facility] 2022-08-18 10:15:00 2022-08-18 10:15:00 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 2, Adc Lab Dawn Capellan [facility] 1.2840.114 350.1.13.10 4.2.7.2.686 [id number] [facility] 2022-08-18 10:15:00 2022-08-18 09:51:18 Outpatient R DAWN CAPELLAN [facility] [id number] [facility] 2022-08-15 00:00:00 2022-08-15 00:00:00 Telephone Dawn Capellan [facility] 1.0.114 350.1.13.10 4.2.7.2.686 [id number] [facility] 2022-08-15 00:00:00 2022-08-15 00:00:00 Patient Secure Msg Timi [facility] 1.840.114 350.1.13.10 4.2.7.2.686 [id number] [facility] 2022-08-14 13:30:00 2022-08-14 13:45:00 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 [facility] Timi [facility] 1.2.840.114 350.1.13.10 4.2.7.2.686 [id number] [facility] 2022-08-14 13:00:00 2022-08-14 13:30:00 Office Visit Timi [facility] 1.2.840.114 350.1.13.10 4.2.7.2.686 [id number] [facility] 2022-08-14 13:00:00 2022-08-14 13:00:00 Outpatient Jaime CAPELLAN DAWN [facility] [id number] [facility] 2022-08-14 00:00:00 2022-08-14 00:00:00 Telephone Radha Drummond [facility] 1.2.840.114 350.1.13.10 4.2.7.2.686 [id number] [facility] 2022-08-13 10:30:00 2022-08-13 11:55:22 Outpatient R RADHA DRUMMOND OGECHUKWU [facility] [id number] [facility] 2022-08-13 10:30:00 2022-08-13 11:55:22 Office Visit Radha Drummond [facility] 1.2.840.114 350.1.13.10 4.2.7.2.686 [id number] [facility] 2022-07-31 09:00:00 2022-07-31 09:00:00 Outpatient DAWN FONG [facility] [id number] [facility] 2022-07-08 09:30:00 2022-07-08 09:30:00 Outpatient R RADHA DRUMMOND OGECHUKWU [facility] [id number] [facility] 2022-07-04 13:00:00 2022-07-04 13:00:00 Outpatient R DAWN CAPELLAN [facility] [id number] [facility] 2022-07-02 00:00:00 2022-07-02 00:00:00 Orders Only Doctor Unassigned, Crump [facility] 1..840.114 350.1.13.10 4.2.7.2.686 [id number] [facility] 2022-06-30 00:00:00 2022-06-30 00:00:00 Telephone Courtney Gomeztere [facility] 1..840.114 350.1.13.10 4.2.7.2.686 [id number] [facility] 2022-06-27 15:30:00 2022-06-27 15:30:00 Outpatient R RADHA DRUMMOND OGMARYANNEMIRTA [facility] [id number] [facility] 2022-06-27 11:30:00 2022-06-27 11:30:00 Outpatient R RADHA DRUMMOND OGMARYANNEMIRTA [facility] [id number] [facility] 2022-06-24 09:15:00 2022-06-24 10:16:05 Ancillary Visit Linda Barnett Ogechukwu [facility] PROFESS[facility] NAL [facility]ILD[facility] 1..840.114 350.1.13.10 4.2.7.2.686 [id number] [facility] 2022-06-23 16:45:00 2022-06-23 16:45:00 Outpatient R NGOZI THOMAS [facility] [id number] [facility] 2022-06-16 16:15:00 2022-06-16 16:15:00 Outpatient R MARTHA, NGOZI [facility] [id number] [facility] 2022-06-16 16:10:00 2022-06-16 16:10:00 Outpatient R RYLAN MONTES [facility] [id number] [facility] 2022-06-10 10:30:00 2022-06-10 11:39:18 [facility] [id number] [facility] 2022-06-10 10:30:00 2022-06-10 11:39:18 [facility] 1.2.840.114 350.1.13.10 4.2.7.2.686 [id number] [facility] 2022-06-10 00:00:00 2022-06-10 00:00:00 Orders Only Doctor Unassigned, Crump [facility] 1.2840.114 350.1.13.10 4.2.7.2.686 [id number] [facility] 2022-05-27 00:00:00 2022-05-27 00:00:00 Telephone Radha Drummond [facility] 1.2.840.114 350.1.13.10 4.2.7.2.686 [id number] [facility] 2022-05-26 00:00:00 2022-05-26 00:00:00 Telephone Radha Drummond [facility] 1.2.840.114 350.1.13.10 4.2.7.2.686 [id number] [facility] 2022-05-24 09:30:00 2022-05-24 09:45:00 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 Pob, Adc Lab Main Radha Drummond [facility] 1.2840.114 350.1.13.10 4.2.7.2.686 [id number] [facility] 2022-05-24 09:30:00 2022-05-24 09:30:00 Outpatient R RADHA DRUMMOND OGECHUKWU [facility] [id number] [facility] 2022-05-23 16:19:08 2022-05-23 23:59:00 Outpatient R [facility] [id number] [facility] 2022-05-23 16:19:08 2022-05-23 23:59:00 Hospital Encounter Radha Drummond [facility] 1.2.840.114 350.1.13.10 4.2.7.2.686 [id number] [facility] 2022-05-23 15:30:00 2022-05-23 16:01:41 Office Visit Radha Drummond [facility] NAL [facility] 1.2840.114 350.1.13.10 4.2.7.2.686 [id number] [facility] 2022-05-23 00:00:00 2022-05-23 00:00:00 Orders Only Doctor Unassigned, Crump [facility] 1.2840.114 350.1.13.10 4.2.7.2.686 [id number] [facility] 2022-05-17 00:00:00 2022-05-17 00:00:00 Refill Rita Baron [facility] 1.2840.114 350.1.13.10 4.2.7.2.686 [id number] [facility] 2022-05-17 00:00:00 2022-05-17 00:00:00 Telephone Elzbieta Gomez [facility] 1.840.114 350.1.13.10 4.2.7.2.686 [id number] [facility] 2022-05-17 00:00:00 2022-05-17 00:00:00 Refill Elzbieta Gomez [facility] 1.2840.114 350.1.13.10 4.2.7.2.686 [id number] [facility] 2022-05-12 00:00:00 2022-05-12 00:00:00 Telephone Rita Baron [facility] 1.840.114 350.1.13.10 4.2.7.2.686 [id number] [facility] 2022-03-31 09:30:00 2022-03-31 09:56:25 [facility] [id number] [facility] 2022-03-31 09:30:00 2022-03-31 09:56:25 Office Visit Stephanie [facility] 1.0.114 350.1.13.10 4.2.7.2.686 [id number] [facility] 2022-03-31 00:00:00 2022-03-31 00:00:00 [facility] 1.840.114 350.1.13.10 4.2.7.2.686 [id number] [facility] 2022-03-19 00:00:00 2022-03-19 00:00:00 [facility]phone [facility] 1.840.114 350.1.13.10 4.2.7.2.686 [id number] [facility] 2022-03-18 09:31:06 2022-03-18 23:59:00 Hospital Encounter Nuzhat Brown [facility] 1.2840.114 350.1.13.10 4.2.7.2.686 [id number] [facility] 2022-03-18 14:15:00 2022-03-18 14:30:00 Office Visit Radha Avitia [facility] 1.2840.114 350.1.13.10 4.2.7.2.686 [id number] [facility] 2022-03-18 14:15:00 2022-03-18 14:15:00 Outpatient R RADHA AVITIA [facility] [id number] [facility] 2022-03-05 12:15:00 2022-03-05 12:30:00 Laboratory Only Only, Ang Db Test Unknown, Attending [facility] 1.2840.114 350.1.13.10 4.2.7.2.686 [id number] [facility] 2022-03-05 12:15:00 2022-03-05 12:15:00 Outpatient R SRINIVASAN DAWN [facility] [id number] [facility] 2022-03-05 00:00:00 2022-03-05 00:00:00 Letter (Out) Srinivasan [facility] 1.2.840.114 350.1.13.10 4.2.7.2.686 [id number] [facility] 2022-03-04 15:00:00 2022-03-04 15:00:00 Outpatient R RADHA AVITIA [facility] [id number] [facility] 2022-03-02 13:40:00 2022-03-02 13:54:53 Outpatient R GLADYS RAMOS [facility] [id number] [facility] 2022-03-02 13:40:00 2022-03-02 13:54:53 Urgent Care Gladys Ramos Unknown, Attending [facility] 1.2840.114 350.1.13.10 4.2.7.2.686 [id number] [facility] 2022-02-28 00:00:00 2022-02-28 00:00:00 Patient Secure Msg Doctor Unassigned, Crump [facility] 1.2.114 350.1.13.10 4.2.7.2.686 [id number] [facility] 2022-02-25 14:30:00 2022-02-25 15:37:12 Outpatient R ROSANNA BECKMAN [facility] [id number] [facility] 2022-02-25 14:30:00 2022-02-25 15:37:12 Office Visit [facility] 1.284.114 350.1.13.10 4.2.7.2.686 [id number] [facility] 2022-02-25 09:30:00 2022-02-25 10:00:21 Office Visit Nuzhat Brown [facility] 1.284.114 350.1.13.10 4.2.7.2.686 [id number] [facility] 2022-02-21 00:00:00 2022-02-21 00:00:00 Telephone Elzbieta Gomez [facility] 1.284.114 350.1.13.10 4.2.7.2.686 [id number] [facility] 2022-02-19 18:07:00 2022-02-19 19:37:00 Emergency X [facility] [id number] [facility] 2022-02-19 18:07:00 2022-02-19 19:37:00 Emergency [place] 1.2.840.114 350.1.13.10 4.2.7.2.686 [id number] [facility] 2022-02-18 00:00:00 2022-02-18 00:00:00 Telephone [facility] 1.2840.114 350.1.13.10 4.2.7.2.686 [id number] 220 [id number] [facility] 2022-02-18 00:00:00 2022-02-18 00:00:00 Telephone [facility] 1.2840.114 350.1.13.10 4.2.7.2.686 [id number] [facility] 2022-02-18 00:00:00 2022-02-18 00:00:00 Telephone Radha Drummond [facility] 1.2840.114 350.1.13.10 4.2.7.2.686 [id number] [facility] 2022-02-18 00:00:00 2022-02-18 00:00:00 Patient Secure Msg Doctor Unassigned, Crump [facility] 1.2840.114 350.1.13.10 4.2.7.2.686 [id number] [facility] 2022-02-17 14:08:16 2022-02-17 23:59:00 Outpatient R RADHA DRUMMOND OGECHUKWU [facility] [id number] [facility] 2022-02-17 14:08:16 2022-02-17 23:59:00 Hospital Encounter Radha Drummond [facility] 1.2.840.114 350.1.13.10 4.2.7.2.686 [id number] [facility] 2022-02-12 08:30:00 2022-02-12 09:46:57 [facility] [id number] [facility] 2022-02-12 08:30:00 2022-02-12 09:46:57 Office Visit Radha Drummond [facility] PROF[facility] NAL BUILD[facility] 1.2.840.114 350.1.13.10 4.2.7.2.686 [id number] [facility] 2022-02-12 00:00:00 2022-02-12 00:00:00 Patient Secure Msg Doctor Unassigned, Crump [facility] 1.2.840.114 350.1.13.10 4.2.7.2.686 [id number] [facility] 2022-02-11 00:00:00 2022-02-11 00:00:00 Telephone Jason [facility] 1.2.840.114 350.1.13.10 4.2.7.2.686 [id number] 220 [id number] [facility] 2022-02-05 00:00:00 2022-02-05 00:00:00 Telephone Jason [facility] 1.2.840.114 350.1.13.10 4.2.7.2.686 [id number] 220 [id number] [facility] 2022-01-29 00:00:00 2022-01-29 00:00:00 Telephone Jason [facility] 1.840.114 350.1.13.10 4.2.7.2.686 [id number] 220 [id number] [facility] 2022-01-28 12:00:00 2022-01-28 12:16:22 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, Ang - Domingo Jason [facility] 1.840.114 350.1.13.10 4.2.7.2.686 [id number] [facility] 2022-01-28 11:00:00 2022-01-28 12:16:15 Outpatient R [facility]ASON [facility] [id number] [facility] 2022-01-28 11:00:00 2022-01-28 12:16:15 Office Visit [facility] 1.840.114 350.1.13.10 4.2.7.2.686 [id number] [facility] 2022-01-28 00:00:00 2022-01-28 00:00:00 Orders Only Doctor Unassigned, Crump [facility] 1.84.114 350.1.13.10 4.2.7.2.686 [id number] [facility] 2022-01-28 00:00:00 2022-01-28 00:00:00 Telephone Jason [facility] 1.840.114 350.1.13.10 4.2.7.2.686 [id number] [facility] 2022-01-28 00:00:00 2022-01-28 00:00:00 Telephone Radha Drummond [facility] 1.2.840.114 350.1.13.10 4.2.7.2.686 [id number] [facility] 2022-01-28 00:00:00 2022-01-28 00:00:00 Telephone Rita Baron [facility] 1.2.840.114 350.1.13.10 4.2.7.2.686 [id number] [facility] 2022-01-24 00:00:00 2022-01-24 00:00:00 Patient Secure Msg Doctor Unassigned, Crump [facility] 1.2.840.114 350.1.13.10 4.2.7.2.686 [id number] [facility] 2021-12-19 13:00:00 2021-12-19 13:00:00 Outpatient GLADYS BISHOP [facility] [id number] [facility] 2021-12-06 13:30:00 2021-12-06 13:30:00 Outpatient JOSSELYN COLON [facility] [id number] [facility] 2021-11-08 10:00:00 2021-11-08 10:00:00 Outpatient JOSSELYN COLON [facility] [id number] [facility] 2021-10-29 10:00:00 2021-10-29 10:00:00 Outpatient GLADYS BIHSOP [facility] [id number] [facility] 2021-10-29 10:00:00 2021-10-29 10:00:00 Outpatient GLADYS BISHOP [facility] [id number] [facility] 2021-10-29 10:00:00 2021-10-29 10:00:00 [id number] 2021-10-29 10:00:00 2021-10-29 10:00:00 Outpatient R GLADYS RAMOS [facility] [id number] [facility] 2021-10-29 10:00:00 2021-10-29 10:00:00 Outpatient R GLADYS RAMOS [facility] [id number] [facility] 2021-10-29 10:00:00 2021-10-29 10:00:00 Outpatient R GLADYS RAMOS [facility] [id number] [facility] 2021-10-10 15:20:00 2021-10-10 15:20:00 Outpatient R [facility] [id number] [facility] 2021-10-10 11:20:00 2021-10-10 11:42:20 Outpatient R MICHEAL CALLES [facility] [id number] [facility] 2021-10-10 11:20:00 2021-10-10 11:42:20 Urgent Care Micheal Calles, Attending [facility] BUILD[facility] 1.2.840.114 350.1.13.10 4.2.7.2.686 [id number] [facility] 2021-10-04 14:00:00 2021-10-04 14:00:00 Outpatient JOSSELYN COLON [facility] [id number] [facility] 2021-09-06 13:00:00 2021-09-06 13:00:00 Outpatient R JOSSELYN SANCHEZ [facility] [id number] [facility] 2021-08-02 15:30:00 2021-08-02 15:30:00 Outpatient DENAE ABBASI [facility] [id number] [facility] 2021-08-01 00:00:00 2021-08-01 00:00:00 Telephone Rad[facility] Drum[facility] 1.2.840.114 350.1.13.10 4.2.7.2.686 [id number] [facility] 2021-08-01 00:00:00 2021-08-01 00:00:00 Telephone Juliet Denae Bishop [facility] 1.2.840.114 350.1.13.10 4.2.7.2.686 [id number] [facility] 2021-07-05 10:00:00 2021-07-05 10:00:00 Outpatient JOSSELYN COLON [facility] [id number] [facility] 2021-07-04 00:00:00 2021-07-04 00:00:00 Telephone Nicole [facility] 1.2.840.114 350.1.13.10 4.2.7.2.686 [id number] [facility] 2021-07-02 00:00:00 2021-07-02 00:00:00 Telephone Nicole [facility] 1.2.840.114 350.1.13.10 4.2.7.2.686 [id number] [facility] 2021-07-02 00:00:00 2021-07-02 00:00:00 Telephone Nicole [facility] 1.2.840.114 350.1.13.10 4.2.7.2.686 [id number] [facility] 2021-07-01 16:00:00 2021-07-01 17:10:06 Outpatient RITA DOBBINS YU [facility] [id number] [facility] 2021-07-01 16:00:00 2021-07-01 17:10:06 Outpatient RITA DOBBINS [facility] [id number] [facility] 2021-07-01 16:00:00 2021-07-01 17:10:06 Office Visit Rita Baron [facility] 1.2.114 350.1.13.10 4.2.7.2.686 [id number] [facility] 2021-06-18 10:12:30 2021-06-18 23:59:00 Hospital Encounter [facility] 1.2840.114 350.1.13.10 4.2.7.2.686 [id number] [facility] 2021-06-18 09:20:00 2021-06-18 10:11:32 Urgent Care Jose C Angelita [facility] 1..114 350.1.13.10 4.2.7.2.686 [id number] [facility] 2021-06-18 09:48:04 2021-06-18 10:11:00 Outpatient R JOSE C ANGELITA [facility] [id number] [facility] 2021-06-18 09:48:04 2021-06-18 10:11:00 Hospital Encounter Jose C Angelita [facility] MED[facility] OFF[facility] BUILDING 1.114 350.1.13.10 4.2.7.2.686 [id number] [facility] 2021-05-27 00:00:00 2021-05-27 00:00:00 Telephone Josselyn [facility] MEDICAL OFFICE BUILDING 1..114 350.1.13.10 4.2.7.2.686 [id number] [facility] 2021-05-24 00:00:00 2021-05-24 00:00:00 Telephone Karin Adan [facility] BLDG. 1.84.114 350.1.13.10 4.2.7.2.686 [id number] [facility] 2021-05-22 10:30:00 2021-05-22 11:35:17 Outpatient R RADHA DRUMMOND OGECHUKWU [facility] [id number] [facility] 2021-05-22 10:30:00 2021-05-22 11:35:17 Office [facility] 1.2.840.114 350.1.13.10 4.2.7.2.686 [id number] [facility] 2021-05-22 10:30:00 2021-05-22 10:30:00 Outpatient R RADHA DRUMMOND OGECHUKWU [facility] [id number] [facility] 2021-05-03 00:00:00 2021-05-03 00:00:00 Telephone [facility] BU[facility]ING 1.2.840.114 350.1.13.10 4.2.7.2.686 [id number] [facility] 2021-04-12 00:00:00 2021-04-12 00:00:00 Telephone [facility] BU[facility] 1.2.840.114 350.1.13.10 4.2.7.2.686 [id number] [facility] 2021-04-12 00:00:00 2021-04-12 00:00:00 Telephone [facility] BUILDING 1.2.840.114 350.1.13.10 4.2.7.2.686 [id number] [facility] 2021-04-11 00:00:00 2021-04-11 00:00:00 Orders Only Doctor Unassigned, Crump [facility] 1.2.840.114 350.1.13.10 4.2.7.2.686 [id number] [facility] 2021-04-10 00:00:00 2021-04-10 00:00:00 Telephone Josselyn Sanchez [facility] 1.2.840.114 350.1.13.10 4.2.7.2.686 [id number] [facility] 2021-04-05 10:00:00 2021-04-05 10:40:49 Outpatient Jaime SANCHEZ JOSSELYN [facility] [id number] [facility] 2021-04-05 10:00:00 2021-04-05 10:00:00 Outpatient JOSSELYN COLON [facility] [id number] [facility] 2021-04-04 00:00:00 2021-04-04 00:00:00 Telephone Gladys Ramos [facility] BUILDING 1.2.840.114 350.1.13.10 4.2.7.2.686 [id number] [facility] 2021-04-03 15:45:00 2021-04-03 16:15:00 Office Visit Gladys Ramos [facility] BUILDING 1.2.840.114 350.1.13.10 4.2.7.2.686 [id number] [facility] 2021-04-03 15:45:00 2021-04-03 15:45:00 Outpatient GLADYS BISHOP [facility] [id number] [facility] 2021-04-03 15:45:00 2021-04-03 15:45:00 Outpatient GLADYS BISHOP [facility] [id number] [facility] 2021-04-03 00:00:00 2021-04-03 00:00:00 Lai Hallkt Gladys [facility] 1..840.114 350.1.13.10 4.2.7.2.686 [id number] [facility] 2021-03-31 00:00:00 2021-03-31 00:00:00 Orders Only Doctor Unassigned, Crump [facility] 1.84.114 350.1.13.10 4.2.7.2.686 [id number] [facility] 2021-03-19 10:00:00 2021-03-19 10:00:00 Outpatient R LYDIA BOLAÑOS [facility] [id number] [facility] 2021-03-18 00:00:00 2021-03-18 00:00:00 Telephone Josselyn Sanchez [facility] BU[facility] 1.840.114 350.1.13.10 4.2.7.2.686 [id number] [facility] 2021-03-18 00:00:00 2021-03-18 00:00:00 Telephone Eve Salgado [facility] BU[facility] 1..840.114 350.1.13.10 4.2.7.2.686 [id number] [facility] 2021-03-15 16:00:00 2021-03-15 16:50:39 Outpatient R FATEMEH DOBSON [facility] [id number] [facility] 2021-03-15 16:00:00 2021-03-15 16:50:39 Office Visit Fatemeh Dobson [facility] BUILDING 1..840.114 350.1.13.10 4.2.7.2.686 [id number] [facility] 2021-03-15 16:00:00 2021-03-15 16:50:39 Outpatient R SUSSYFATEMEH Webster [facility] [id number] [facility] 2021-03-05 14:30:00 2021-03-05 14:30:00 Outpatient R DANIELJOSSELYN [facility] [id number] [facility] 2021-02-15 00:00:00 2021-02-15 00:00:00 Refill BroadwaterEve schuster [facility] MED[facility] OFF[facility] BUILDING 1.2.840.114 350.1.13.10 4.2.7.2.686 [id number] [facility] 2021-01-24 00:00:00 2021-01-24 00:00:00 Orders Only Doctor Unassigned, Crump [facility] 1.2.840.114 350.1.13.10 4.2.7.2.686 [id number] [facility] 2021-01-21 14:29:38 2021-01-21 14:44:38 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, Ang - Db TabithaEve schuster [facility] MED[facility] OFF[facility] BUILDING 1.2.840.114 350.1.13.10 4.2.7.2.686 [id number] [facility] 2021-01-21 13:26:38 2021-01-21 14:32:25 Office Visit TabithaEve schuster [facility] BUILDING 1.2.840.114 350.1.13.10 4.2.7.2.686 [id number] [facility] 2021-01-21 13:15:00 2021-01-21 14:32:25 Outpatient R EVE SALGADO [facility] [id number] [facility] 2021-01-09 20:52:00 2021-01-09 22:30:00 Emergency X TRUDY GUDINO [facility] ERT [id number] [facility] 2021-01-09 20:52:00 2021-01-09 22:30:00 Emergency Trudy Gudino [facility] 1.2.840.114 350.1.13.10 4.2.7.2.686 [id number] [facility] 2021-01-09 00:00:00 2021-01-09 00:00:00 Orders Only Doctor Unassigned, Crump [facility] 1.2840.114 350.1.13.10 4.2.7.2.686 [id number] [facility] 2021-01-09 00:00:00 2021-01-09 00:00:00 Telephone Idalia Clarke [facility] 1.2840.114 350.1.13.10 4.2.7.2.686 [id number] [facility] 2021-01-05 00:00:00 2021-01-05 00:00:00 Tylor Teran [facility] PROFESS[facility] NAL BUILDING 1.840.114 350.1.13.10 4.2.7.2.686 [id number] [facility] 2020-12-07 00:00:00 2020-12-07 00:00:00 Telephone Eve Salgado [facility] MED[facility] BUILDING 1.2840.114 350.1.13.10 4.2.7.2.686 [id number] [facility] 2020-11-30 00:00:00 2020-11-30 00:00:00 Telephone Linette Richardson [facility] Medical Office Building 1.2840.114 350.1.13.10 4.2.7.2.686 [id number] [facility] 2020-11-30 00:00:00 2020-11-30 00:00:00 Telephone Linette Richardson [facility] Medical Office Building 1.2.840.114 350.1.13.10 4.2.7.2.686 [id number] [facility] 2020-11-29 09:25:19 2020-11-29 09:55:19 Office Visit Linette Richardson [facility] Medical Office Building 1..840.114 350.1.13.10 4.2.7.2.686 [id number] [facility] 2020-11-29 09:30:00 2020-11-29 09:30:00 Outpatient R LINETTE RICHARDSON [facility] [id number] [facility] 2020-11-23 13:30:00 2020-11-23 14:32:48 Outpatient R JOSSELYN SANCHEZ [facility] [id number] [facility] 2020-11-23 13:29:10 2020-11-23 14:32:48 Office Visit Daniel [facility] CIPRIANO?[facility] MEDICAL OFFICE BUILDING 1.2.840.114 350.1.13.10 4.2.7.2.686 [id number] [facility] 2020-11-23 13:30:00 2020-11-23 13:30:00 Outpatient R JOSSELYN SANCHEZ [facility] [id number] [facility] 2020-11-23 00:00:00 2020-11-23 00:00:00 Telephone Arun [facility] Medical Office Building 1.2.840.114 350.1.13.10 4.2.7.2.686 [id number] [facility] 2020-11-23 00:00:00 2020-11-23 00:00:00 Telephone [facility]or Devlin [facility] Building 1.2.840.114 350.1.13.10 4.2.7.2.686 [id number] [facility] 2020-11-20 13:30:00 2020-11-20 13:30:00 Outpatient R DANIEL JOSSELYN [facility] [id number] [facility] 2020-11-13 12:59:34 2020-11-13 13:52:00 Office Visit AdanKarin ruano [facility] BLDG. 1..840.114 350.1.13.10 4.2.7.2.686 [id number] [facility] 2020-11-13 13:15:00 2020-11-13 13:15:00 Outpatient R LOCO [facility] [id number] [facility] 2020-11-07 00:00:00 2020-11-07 00:00:00 Case Management Marisa [facility] 1.2.840.114 350.1.13.10 4.2.7.2.686 [id number] [facility] 2020-11-01 00:00:00 2020-11-01 00:00:00 Telephone Gladys Ramos [facility] Building 1.2.840.114 350.1.13.10 4.2.7.2.686 [id number] [facility] 2020-10-29 14:04:55 2020-10-29 14:19:55 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 2, Adc Lab Marisa [facility] Building 1.2.840.114 350.1.13.10 4.2.7.2.686 [id number] [facility] 2020-10-29 13:11:40 2020-10-29 14:02:18 Office Visit Gladys Ramos [facility] Building 1.2.840.114 350.1.13.10 4.2.7.2.686 [id number] [facility] 2020-10-29 11:00:00 2020-10-29 11:00:00 Outpatient LYDIA BOTELLO [facility] [id number] [facility] 2020-10-29 00:00:00 2020-10-29 00:00:00 Orders Only Doctor Unassigned, Crump [facility] 1.2.840.114 350.1.13.10 4.2.7.2.686 [id number] [facility] 2020 14:15:00 2020 14:15:00 Outpatient KARIN THURMAN [facility] [id number] [facility] 2020-10-24 15:00:00 2020-10-24 15:00:00 Outpatient LYDIA BOTELLO [facility] [id number] [facility] 2020-10-10 00:00:00 2020-10-10 00:00:00 Telephone Josselyn Sanchez [facility] 1.2.840.114 350.1.13.10 4.2.7.2.686 [id number] [facility] 2020-10-05 14:30:00 2020-10-05 14:30:00 Outpatient EVE CALLE [facility] [id number] [facility] 2020-10-04 15:00:00 2020-10-04 15:00:00 Outpatient KARIN THURMAN [facility] [id number] [facility] 2020-10-03 14:00:00 2020-10-03 14:00:00 Outpatient GLADYS BISHOP [facility] [id number] [facility] 2020-09-26 13:45:00 2020-09-26 13:45:00 Outpatient Jaime BOLAÑOSLYDIA [facility] [id number] [facility] 2020-09-24 00:00:00 2020-09-24 00:00:00 Outpatient TYLOR REILLY HOWARD [facility] [id number] [facility] 2020-09-14 16:20:00 2020-09-14 16:20:00 Outpatient TYLOR ERILLY HOWARD [facility] [id number] [facility] 2020-09-11 11:00:00 2020-09-11 11:00:00 Outpatient TYLOR REILLY HOWARD [facility] [id number] [facility] 2020-09-10 00:00:00 2020-09-10 00:00:00 Patient Secure Msg Doctor Unassigned, Crump [facility] ..840.114 350.1.13.10 4.2.7.2.686 [id number] [facility] 2020-09-06 14:45:51 2020-09-06 17:24:18 Office Visit Eve Salgado [facility] 1..840.114 350.1.13.10 4.2.7.2.686 [id number] 2020-09-06 14:30:00 2020-09-06 14:30:00 Outpatient EVE CALLE [facility] [id number] [facility] 2020-09-06 14:30:00 2020-09-06 14:30:00 Outpatient EVE CALLE [facility] [id number] [facility] 2020-08-24 14:30:00 2020-08-24 14:30:00 Outpatient JC COLLAZO [facility] [id number] [facility] 2020-08-24 14:30:00 2020-08-24 14:30:00 Outpatient JC COLLAZO [facility] [id number] [facility] 2020-08-23 00:00:00 2020-08-23 00:00:00 Orders Only Doctor Unassigned, Crump [facility] 1.2.840.114 350.1.13.10 4.2.7.2.686 [id number] [facility] 2020-08-17 14:30:00 2020-08-17 15:32:02 Outpatient BETHEL AUSTIN [facility] [id number] [facility] 2020-08-17 14:30:00 2020-08-17 14:30:00 Outpatient BETHEL AUSTIN [facility] [id number] [facility] 2020-08-17 00:00:00 2020-08-17 00:00:00 Patient Secure Msg Doctor Unassigned, Crump [facility] 1.2.840.114 350.1.13.10 4.2.7.2.686 [id number] [facility] 2020-08-13 10:00:00 2020-08-13 10:00:00 Outpatient LYDIA BOTELLO [facility] [id number] [facility] 2020-08-07 11:00:00 2020-08-07 11:00:00 Outpatient LYDIA BOTELLO [facility] [id number] [facility] 2020-07-03 09:30:00 2020-07-03 09:30:00 Outpatient LYDIA BOTELLO [facility] [id number] [facility] 2020-06-20 19:30:00 2020-06-20 19:30:00 Outpatient LOGAN MERINO STRAHIL [facility] [id number] [facility] 2020-06-15 10:45:00 2020-06-15 10:45:00 Outpatient Jaime [facility] [id number] [facility] 2020-06-15 09:00:00 2020-06-15 09:00:00 Outpatient Jaime POSTSEUN [facility] [id number] [facility] 2020-06-11 00:00:00 2020-06-11 00:00:00 Outpatient Jaime LETTY BELLO [facility] [id number] [facility] 2020-06-05 14:15:00 2020-06-05 14:15:00 Outpatient Jaime BELLOLETTY [facility] [id number] [facility] 2020-05-25 11:20:00 2020-05-25 11:20:00 Outpatient TYLOR REILLY HOWARD [facility] [id number] [facility] 2020-05-24 00:00:00 2020-05-24 00:00:00 Patient Secure Msg Doctor Unassigned, Crump [facility] 1.2.840.114 350.1.13.10 4.2.7.2.686 [id number] [facility] 2020-05-22 14:45:00 2020-05-22 14:45:00 Outpatient Jaime BELLOLETTY [facility] [id number] [facility] 2020-05-18 09:00:00 2020-05-18 09:00:00 Outpatient BETHEL AUSTIN [facility] [id number] [facility] 2020-05-08 14:45:00 2020-05-08 14:45:00 Outpatient RADHA ODONNELL [facility] [id number] [facility] 2020-05-08 11:15:00 2020-05-08 11:15:00 Outpatient RADHA ODONNELL [facility] [id number] [facility] 2020-05-03 10:00:00 2020-05-03 10:00:00 Outpatient ROSANNA GIBSON [facility] [id number] [facility] 2020-04-26 00:00:00 2020-04-26 00:00:00 Outpatient GLADYS BISHOP [facility] [id number] [facility] 2020-04-26 00:00:00 2020-04-26 00:00:00 (TEL) STLMLC STLMLC [id number] [facility] 2020-04-26 00:00:00 2020-04-26 00:00:00 (TEL) STLMLC STLMLC [id number] [facility] 2020-04-24 00:00:00 2020-04-24 00:00:00 Outpatient TYLOR REILLY HOWARD [facility] [id number] [facility] 2020-04-17 00:00:00 2020-04-17 00:00:00 Outpatient TYLOR REILLY HOWARD [facility] [id number] [facility] 2020-04-09 00:00:00 2020-04-09 00:00:00 (TEL) STLMLC STLMLC [id number] [facility] 2020-04-04 00:00:00 2020-04-04 00:00:00 OFFICE VISIT ESTAB PT LEVEL 4 STLMLC STLMLC [id number] [facility] 2020-03-20 11:00:00 2020-03-20 11:00:00 Outpatient TYLOR REILLY HOWARD [facility] [id number] [facility] 2020-03-19 00:00:00 2020-03-19 00:00:00 (TEL) STLMLC STLMLC [id number] [facility] 2020-03-19 00:00:00 2020-03-19 00:00:00 OFFICE VISIT EST PT LEVEL 3 STLMLC STLMLC [id number] [facility] 2020-03-16 15:20:00 2020-03-16 15:20:00 Outpatient TYLOR REILLY HOWARD [facility] [id number] [facility] 2020-03-13 11:00:00 2020-03-13 11:00:00 Outpatient TYLOR REILLY HOWARD [facility] [id number] [facility] 2020-03-09 13:00:00 2020-03-09 13:00:00 Outpatient JANE Sandoval RAI [facility] [id number] [facility] 2020-02-15 00:00:00 2020-02-15 00:00:00 OFFICE VISIT EST PT LEVEL 3 STLMLC STLMLC [id number] [facility] 2020-02-13 09:00:00 2020-02-13 09:00:00 Outpatient Jaime [facility] [id number] [facility] 2020-01-25 00:00:00 2020-01-25 00:00:00 OFFICE VISIT EST PT LEVEL 3 STLMLC STLMLC [id number] [facility] 2020-01-24 00:00:00 2020-01-24 00:00:00 (TEL) STLMLC STLMLC [id number] [facility] 2020-01-23 10:00:00 2020-01-23 10:00:00 Outpatient TYLOR REILLY HOWARD [facility] [id number] [facility] 2020-01-02 13:00:00 2020-01-02 13:00:00 Outpatient TYLOR REILLY HOWARD [facility] [id number] [facility] 2019-12-07 00:00:00 2019-12-07 00:00:00 OFFICE VISIT EST PT LEVEL 3 STLMLC STLMLC [id number] [facility] 2019-11-22 00:00:00 2019-11-22 00:00:00 OFFICE VISIT ESTAB PT LEVEL 4 STLMLC STLMLC [id number] [facility] 2019-11-14 00:00:00 2019-11-14 00:00:00 OFFICE VISIT EST PT LEVEL 3 STLMLC STLMLC [id number] [facility] 2019-10-26 00:00:00 2019-10-26 00:00:00 Outpatient GLADYS BISHOP [facility] [id number] [facility] 2019 13:40:00 2019 13:40:00 [facility] [id number] [facility] 2019-10-18 13:30:00 2019-10-18 13:30:00 Outpatient Jaime RADHAGLADYS ARCEO [facility] [id number] [facility] 2018-09-16 14:45:00 2018-09-16 17:13:50 Outpatient Jaime TOLEDOMARÍA [facility] [id number] [facility] 2018-05-14 11:52:00 2018-05-14 11:52:00 [facility] [id number] [facility] 2018-04-27 10:40:00 2018-04-27 10:40:00 [facility] [id number] [facility] 2018-04-27 10:07:00 2018-04-27 10:07:00 [facility] [id number] [facility] 2018-04-27 09:15:00 2018-04-27 09:15:00 [facility] [id number] [facility] 2018-04-26 13:36:00 2018-04-26 13:36:00 [facility] [id number] [facility] 2018-04-21 10:00:00 2018-04-21 10:00:00 [facility] [id number] [facility] 2017-08-24 10:31:00 2017-08-24 10:31:00 [place] [id number] [facility] 2017-07-22 11:05:00 2017-07-22 11:05:00 Outpatient [facility] [id number] [facility] 2017-05-26 09:15:00 2017-05-26 09:15:00 Outpatient [facility] Medicine [facility] [id number] [facility] Results Test Description Test Time Test Comments Results Result Co mments Source LIPID [id number] 02:35:56* Test Item Value Reference Range Interpretation Comme nts CHOLESTEROL (test code = 2210) 190 MG/DL <200 TRIGLYCERIDES (test code = 2232) 141 MG/DL <150 HDL CHOLESTEROL (test code = 2220) 37 MG/DL >39 L CALC LDL CHOL (test code = 2237) 128 MG/DL <100 H NOTE: CALCULATED LDL IS BASED ON VIPUL-DORAN METHOD WHICHINCLUDES ADJUSTABLE TRIGLYCERIDE:VLDL CHOLESTEROL RATIO.THIS FACTOR VARIES BY MEASURED TRIGLYCERIDE AND NON-HDLCHOLESTEROL CONCENTRATIONS WITH INCREASED CALCULATED LDL SEENIN HIGHER TRIGLYCERIDE OR LOWER NON-HDL SPECIMENS. FOR MOREINFORMATION, SEE CLIENT ANNOUNCEMENT AT [email or web address] LDL/HDL (test code = 2238) 3.46 RATIO <3.22 H COMPREHENSIVE METABOLIC [id number] 02:35:56* Test Item Value Reference Range Interpretation Comme nts GLUCOSE (test code = 2217) 84 MG/DL 70-99 BUN (test code = 2208) 14 MG/DL 6-20 CREATININE (test code = 2214) 0.87 MG/DL 0.60-1.30 eGFR (2020 CKD-EPI) (test code = 11707) 90 ML/MIN/1.73 >60 CALC BUN/CREAT (test code = 2235) 16 RATIO 6-28 SODIUM (test code = 2231) 141 MEQ/L 133-146 POTASSIUM (test code = 2228) 3.7 MEQ/L 3.5-5.4 CHLORIDE (test code = 2215) 104 MEQ/L 95-107 CARBON DIOXIDE (test code = 2206) 25 MEQ/L 19-31 CALCIUM (test code = 2209) 10.0 MG/DL 8.5-10.5 PROTEIN, TOTAL (test code = 222) 7.4 G/DL 6.1-8.3 ALBUMIN (test code = 2201) 4.3 G/DL 3.5-5.2 CALC GLOBULIN (test code = 2240) 3.1 G/DL 1.9-3.7 CALC A/G RATIO (test code = 2234) 1.4 RATIO 1.0-2.6 BILIRUBIN, TOTAL (test code = 2207) 0.7 MG/DL <=1.2 ALKALINE PHOSPHATASE (test code = 2204) 90 U/L 40-114 AST (test code = 2218) 24 U/L 9-40 ALT (test code = 2219) 42 U/L 5-40 H UNLESS OTHERWISE INDICATED, ALL TESTING PERFORMED AT [facility] [address] [place] [id number] SECURITY CONTROL ROOM OFFICER: HAMMAD SWEET M.D. CLIA NUMBER [id number] [facility] [place]. [id number] COMP. METABOLIC PANEL (34668)2022-11-01 00:07:27* Test Item Value Reference Range Interpretation Comme nts NA (test code = 2100464627) 140 mmol/L 135-145 K (test code = 2464760709) 4.1 mmol/L 3.5-5.0 CL (test code = 1475567468) 104 mmol/L 98-108 CO2 TOTAL (test code = 3120633183) 23 mmol/L 23-31 AGAP (test code = 6885200623) 13 2-16 BUN (test code = 2838520794) 10 mg/dL 7-23 GLUCOSE (test code = 6879660149) 148 mg/dL 70-110 H CREATININE (test code = 1788988220) 0.89 mg/dL 0.50-1.04 TOTAL BILI (test code = 0268922415) 1.1 mg/dL 0.1-1.1 CALCIUM (test code = 3807330678) 9.7 mg/dL 8.6-10.6 T PROTEIN (test code = 4886244786) 9.7 g/dL 6.3-8.2 H ALBUMIN (test code = 9944814728) 4.9 g/dL 3.5-5.0 ALK PHOS (test code = 0300506763) 84 U/L 34-122 ALTv (test code = 1742-6) 54 U/L 5-35 H AST(SGOT) (test code = 4876280102) 41 U/L 13-40 H eGFR (test code = 3085519867) 72.6 mL/min/1.73m2 BEV (test code = BEV) Association of Glomerular Filtration Rate (GFR) and Staging of Kidney Disease* + --+ --+ ------+| GFR (mL/min/1.73 m2) ?| With Kidney Damage ?| ?Without Kidney Damage+ --------+ --------+ +| ?>90 ?| ?Stage one ?| ? Normal ?+ ---+ ---+ -------+| ?60-89 ?| ?Stage two ?| ? Decreased GFR ? + --+ --+ ------+| ?30-59 ?| ?Stage three ?| ? Stage three ? + --+ --+ ------+| ?15-29 ?| ?Stage four ? | ? Stage four ?+ ---+ ---+ -------+| ?<15 (or dialysis) ? ?| ?Stage five ? | ? Stage five ?+ ---+ ---+ -------+ *Each stage assumes the associated GFR level has been in effect for at least three months. ?Stages 1 to 5, with or without kidney disease, indicate chronic kidney disease. Notes: Determination of stages one and two (with eGFR >59mL/min/1.73 m2) requires estimation of kidney damage for at least three months as defined by structural or functional abnormalities of the kidney, manifested by either:Pathological abnormalities or Markers of kidney damage (including abnormalities in the composition of the blood or urine or abnormalities in imaging tests). Lab Interpretation (test code = 25959-7) [facility]normal [facility]07:06* Test Item Value Reference Range Interpretation Comme nts LIPASE (test code = 0207718415) 127 U/L 0-220 Lab Interpretation (test cod e = 95626-2) Normal [facility] [id number] 23:49:06* Test Item Value Reference Range Interpretation Comme nts WBC (test code = 6690-2) 12.28 See_Comment H [Automated SNSplus] The system which generated this result transmitted reference range: 4.30 - 11.10 10*3/?L. The reference range was not used to interpret this result as normal/abnormal. RBC (test code = 789-8) 4.69 See_Comment [Automated messa ge] The system which generated this result transmitted reference range: 3.93 - 5.25 10*6/?L. The reference range was not used to interpret this result as normal/abnormal. HGB (test code = 718-7) 14.6 g/dL 11.6-15.0 HCT (test code = 4544-3) 41.9 % 35.7-45.2 MCV (test code = 787-2) 89.3 fL 80.6-95.5 MCH (test code = 785-6) 31.1 pg 25.9-32.8 MCHC (test code = 786-4) 34.8 g/dL 31.6-35.1 RDW-SD (test code = 26099-5) 40.4 fL 39.0-49.9 RDW-CV (test code = 788-0) 12.4 % 12.0-15.5 PLT (test code = 777-3) 278 See_Comment [Automated messa ge] The system which generated this result transmitted reference range: 166 - 358 10*3/?L. The reference range was not used to interpret this result as normal/abnormal. MPV (test code = 53843-1) 11.8 fL 9.5-12.9 NRBC/100 WBC (test code = 7311853396) 0.0 See_Comment [Automated Vig[employer] ssage] The system which generated this result transmitted reference range: 0.0 - 10.0 /100 WBCs. The reference range was not used to interpret this result as normal/abnormal. NRBC x10^3 (test code = 0437088715) See_Comment [Automated messa ge] The system which generated this result transmitted reference range: 10*3/?L. The reference range was not used to interpret this result as normal/abnormal. GRAN MAT (NEUT) % (test code = 770-8) 61.9 % IMM GRAN % (test code = 7387364157) 0.40 % LYMPH % (test code = 736-9) 26.8 % MONO % (test code = 5905-5) 8.2 % EOS % (test code = 713-8) 2.0 % BASO % (test code = 706-2) 0.7 % GRAN MAT x10^3(ANC) (test code = 3762013103) 7.60 10*3/uL 1.88-7.09 H IMM GRAN x10^3 (test code = 9583239823) 0.05 10*3/uL 0.00-0.06 LYMPH x10^3 (test code = 731-0) 3.29 10*3/uL 1.32-3.29 MONO x10^3 (test code = 742-7) 1.01 10*3/uL 0.33-0.92 H EOS x10^3 (test code = 711-2) 0.24 10*3/uL 0.03-0.39 BASO x10^3 (test code = 704-7) 0.09 10*3/uL 0.01-0.07 H Lab Interpretation (test code = 23484-9) Abnormal [facility] [id number] 23:19:00* Test Item Value Reference Range Interpretation Comme nts POCT PREG (test code = 1605) Negative On board controls acceptable with C Line (test code = 3574) Yes POCT PREG LOT # (test code = 3575) [id number] POCT PREG TEST DATE ( test code = 3576) 04/08/2024 Lab Interpretation (test cod e = 44057-1) Normal [facility] HEMOGLOBIN A1C [id number] 17:01:00* Test Item Value Reference Range Interpretation Comme [facility] POCT HBA1C (test code = 4548-4) 7.3 % 4-6 A Lab Interpretation (test cod e = 15990-6) Abnormal [facility] HEMOGLOBIN A1C [id number] 17:01:00* Test Item Value Reference Range Interpretation Comme nts POCT HBA1C (test code = 4548-4) 7.3 % 4-6 A Lab Interpretation (test cod e = 74160-2) Abnormal [facility] SARS-COV-2 ANTIGEN (BINAX NOW)2022-03-02 19:45:00* Test Item Value Reference Range Interpretation Comme nts POCT SARS-COV-2 ANTIGEN (isac t code = 87191-9) Positive Not Detected A On board controls acceptable with C Line (test code = 3574) Yes Lab Interpretation (test cod e = 14305-4) Abnormal [facility] [id number] 22:17:34* Test Item Value Reference Range Interpretation Comme nts FREE T4 (test code = 8305377562) See_Comment [Automated messa ge] The system which generated this result transmitted reference range: 0.78 - 2.20 ng/dL:. The reference range was not used to interpret this result as normal/abnormal. Lab Interpretation (test code = 24240-3) Normal [facility]IP[facility] PAN[facility] (89158)(TOTAL CHOLESTEROL, TRIGLYCERIDES, HDL)2022-01-28 21:59:44* Test Item Value Reference Range Interpretation Comme nts CHOL (test code = 0312936973) 212 mg/dL 120-200 H HDL (test code = 5260675971) 37 mg/dL See_Comment L [Automated messa ge] The system which generated this result transmitted reference range: >=50. The reference range was not used to interpret this result as normal/abnormal. HDLC RATIO (test code = 6243819329) See_Comment H [Automated messa ge] The system which generated this result transmitted reference range: <=4.5. The reference range was not used to interpret this result as normal/abnormal. TRIG (test code = 6060363957) 174 mg/dL 30-170 H LDL CHOL (test code = 98816-7) 140 mg/dL See_Comment [Automated messa ge] The system which generated this result transmitted reference range: <=160. The reference range was not used to interpret this result as normal/abnormal. VLDL (test code = 4866807151) 35 mg/dL 5-60 Lab Interpretation (test code = 69057-8) [facility]normal [facility] (35120)(TOTAL CHOLESTEROL, TRIGLYCERIDES, HDL)2022-01-28 21:59:44* Test Item Value Reference Range Interpretation Comme nts CHOL (test code = 2928865264) 212 mg/dL 120-200 H HDL (test code = 4682062414) 37 mg/dL See_Comment L [Automated messa ge] The system which generated this result transmitted reference range: >=50. The reference range was not used to interpret this result as normal/abnormal. HDLC RATIO (test code = 2769904813) See_Comment H [Automated messa ge] The system which generated this result transmitted reference range: <=4.5. The reference range was not used to interpret this result as normal/abnormal. TRIG (test code = 9944189886) 174 mg/dL 30-170 H LDL CHOL (test code = 61793-2) 140 mg/dL See_Comment [Automated messa ge] The system which generated this result transmitted reference range: <=160. The reference range was not used to interpret this result as normal/abnormal. VLDL (test code = 7913578049) 35 mg/dL 5-60 Lab Interpretation (test code = 32953-8) [facility]normal [facility] (10665)(TOTAL CHOLESTEROL, TRIGLYCERIDES, HDL)2022-01-28 21:59:44* Test Item Value Reference Range Interpretation Comme nts CHOL (test code = 3674216103) 212 mg/dL 120-200 H HDL (test code = 1785730607) 37 mg/dL See_Comment L [Automated messa ge] The system which generated this result transmitted reference range: >=50. The reference range was not used to interpret this result as normal/abnormal. HDLC RATIO (test code = 4890054901) See_Comment H [Automated messa ge] The system which generated this result transmitted reference range: <=4.5. The reference range was not used to interpret this result as normal/abnormal. TRIG (test code = 8615244439) 174 mg/dL 30-170 H LDL CHOL (test code = 93622-0) 140 mg/dL See_Comment [Automated messa ge] The system which generated this result transmitted reference range: <=160. The reference range was not used to interpret this result as normal/abnormal. VLDL (test code = 5066910565) 35 mg/dL 5-60 Lab Interpretation (test code = 29708-5) [facility]normal [facility] WITH [id number] 20:29:44* Test Item Value Reference Range Interpretation Comme nts WBC (test code = 6690-2) See_Comment [Automated messa ge] The system which generated this result transmitted reference range: 4.30 - 11.10 10*3/?L. The reference range was not used to interpret this result as normal/abnormal. RBC (test code = 789-8) See_Comment H [Automated messa ge] The system which generated this result transmitted reference range: 3.93 - 5.25 10*6/?L. The reference range was not used to interpret this result as normal/abnormal. HGB (test code = 718-7) 16.1 g/dL 11.6-15.0 H HCT (test code = 4544-3) 45.8 % 35.7-45.2 H MCV (test code = 787-2) 86.3 fL 80.6-95.5 MCH (test code = 785-6) 30.3 pg 25.9-32.8 MCHC (test code = 786-4) 35.2 g/dL 31.6-35.1 H RDW-SD (test code = 10075-9) 37.2 fL 39.0-49.9 L RDW-CV (test code = 788-0) 11.9 % 12.0-15.5 L PLT (test code = 777-3) See_Comment [Automated messa ge] The system which generated this result transmitted reference range: 166 - 358 10*3/?L. The reference range was not used to interpret this result as normal/abnormal. MPV (test code = 23231-3) 11.7 fL 9.5-12.9 NRBC/100 WBC (test code = 3943729971) See_Comment [Automated Vigster ssage] The system which generated this result transmitted reference range: 0.0 - 10.0 /100 WBCs. The reference range was not used to interpret this result as normal/abnormal. NRBC x10^3 (test code = 8204100086) See_Comment [Automated messa ge] The system which generated this result transmitted reference range: 10*3/?L. The reference range was not used to interpret this result as normal/abnormal. GRAN MAT (NEUT) % (test code = 770-8) 65.1 % IMM GRAN % (test code = 8545805655) 0.10 % LYMPH % (test code = 736-9) 27.3 % MONO % (test code = 5905-5) 5.6 % EOS % (test code = 713-8) 1.2 % BASO % (test code = 706-2) 0.7 % GRAN MAT x10^3(ANC) (test code = 5093103955) 5.57 10*3/uL 1.88-7.09 IMM GRAN x10^3 (test code = 4182982371) 0.00-0.06 LYMPH x10^3 (test code = 731-0) 2.34 10*3/uL 1.32-3.29 MONO x10^3 (test code = 742-7) 0.48 10*3/uL 0.33-0.92 EOS x10^3 (test code = 711-2) 0.10 10*3/uL 0.03-0.39 BASO x10^3 (test code = 704-7) 0.06 10*3/uL 0.01-0.07 Lab Interpretation (test code = 59683-0) Abnormal [facility] WITH [id number] 20:29:44* Test Item Value Reference Range Interpretation Comme nts WBC (test code = 6690-2) See_Comment [Automated messa ge] The system which generated this result transmitted reference range: 4.30 - 11.10 10*3/?L. The reference range was not used to interpret this result as normal/abnormal. RBC (test code = 789-8) See_Comment H [Automated messa ge] The system which generated this result transmitted reference range: 3.93 - 5.25 10*6/?L. The reference range was not used to interpret this result as normal/abnormal. HGB (test code = 718-7) 16.1 g/dL 11.6-15.0 H HCT (test code = 4544-3) 45.8 % 35.7-45.2 H MCV (test code = 787-2) 86.3 fL 80.6-95.5 MCH (test code = 785-6) 30.3 pg 25.9-32.8 MCHC (test code = 786-4) 35.2 g/dL 31.6-35.1 H RDW-SD (test code = 39837-9) 37.2 fL 39.0-49.9 L RDW-CV (test code = 788-0) 11.9 % 12.0-15.5 L PLT (test code = 777-3) See_Comment [Automated messa ge] The system which generated this result transmitted reference range: 166 - 358 10*3/?L. The reference range was not used to interpret this result as normal/abnormal. MPV (test code = 50398-3) 11.7 fL 9.5-12.9 NRBC/100 WBC (test code = 6468118657) See_Comment [Automated [employer]ig[employer] ssage] The system which generated this result transmitted reference range: 0.0 - 10.0 /100 WBCs. The reference range was not used to interpret this result as normal/abnormal. NRBC x10^3 (test code = 3441583480) See_Comment [Automated LoopMea ge] The system which generated this result transmitted reference range: 10*3/?L. The reference range was not used to interpret this result as normal/abnormal. GRAN MAT (NEUT) % (test code = 770-8) 65.1 % IMM GRAN % (test code = 3148848958) 0.10 % LYMPH % (test code = 736-9) 27.3 % MONO % (test code = 5905-5) 5.6 % EOS % (test code = 713-8) 1.2 % BASO % (test code = 706-2) 0.7 % GRAN MAT x10^3(ANC) (test code = 3985366999) 5.57 10*3/uL 1.88-7.09 IMM GRAN x10^3 (test code = 7089319356) 0.00-0.06 LYMPH x10^3 (test code = 731-0) 2.34 10*3/uL 1.32-3.29 MONO x10^3 (test code = 742-7) 0.48 10*3/uL 0.33-0.92 EOS x10^3 (test code = 711-2) 0.10 10*3/uL 0.03-0.39 BASO x10^3 (test code = 704-7) 0.06 10*3/uL 0.01-0.07 Lab Interpretation (test code = 52817-1) Abnormal [facility] WITH [id number] 20:29:44* Test Item Value Reference Range Interpretation Comme nts WBC (test code = 6690-2) See_Comment [Automated messa ge] The system which generated this result transmitted reference range: 4.30 - 11.10 10*3/?L. The reference range was not used to interpret this result as normal/abnormal. RBC (test code = 789-8) See_Comment H [Automated messa ge] The system which generated this result transmitted reference range: 3.93 - 5.25 10*6/?L. The reference range was not used to interpret this result as normal/abnormal. HGB (test code = 718-7) 16.1 g/dL 11.6-15.0 H HCT (test code = 4544-3) 45.8 % 35.7-45.2 H MCV (test code = 787-2) 86.3 fL 80.6-95.5 MCH (test code = 785-6) 30.3 pg 25.9-32.8 MCHC (test code = 786-4) 35.2 g/dL 31.6-35.1 H RDW-SD (test code = 17063-2) 37.2 fL 39.0-49.9 L RDW-CV (test code = 788-0) 11.9 % 12.0-15.5 L PLT (test code = 777-3) See_Comment [Automated messa ge] The system which generated this result transmitted reference range: 166 - 358 10*3/?L. The reference range was not used to interpret this result as normal/abnormal. MPV (test code = 93234-1) 11.7 fL 9.5-12.9 NRBC/100 WBC (test code = 8768803849) See_Comment [Automated Vigster ssage] The system which generated this result transmitted reference range: 0.0 - 10.0 /100 WBCs. The reference range was not used to interpret this result as normal/abnormal. NRBC x10^3 (test code = 1092861728) See_Comment [Automated messa ge] The system which generated this result transmitted reference range: 10*3/?L. The reference range was not used to interpret this result as normal/abnormal. GRAN MAT (NEUT) % (test code = 770-8) 65.1 % IMM GRAN % (test code = 5617780364) 0.10 % LYMPH % (test code = 736-9) 27.3 % MONO % (test code = 5905-5) 5.6 % EOS % (test code = 713-8) 1.2 % BASO % (test code = 706-2) 0.7 % GRAN MAT x10^3(ANC) (test code = 6665370699) 5.57 10*3/uL 1.88-7.09 IMM GRAN x10^3 (test code = 9171394110) 0.00-0.06 LYMPH x10^3 (test code = 731-0) 2.34 10*3/uL 1.32-3.29 MONO x10^3 (test code = 742-7) 0.48 10*3/uL 0.33-0.92 EOS x10^3 (test code = 711-2) 0.10 10*3/uL 0.03-0.39 BASO x10^3 (test code = 704-7) 0.06 10*3/uL 0.01-0.07 Lab Interpretation (test code = 10742-7) Abnormal [facility] HEMOGLOBIN A1C [id number] 17:28:00* Test Item Value Reference Range Interpretation Comme [facility] POCT HBA1C (test code = 4548-4) 11.0 % 4-6 A Lab Interpretation (test cod e = 68871-6) Abnormal [facility] HEMOGLOBIN A1C [id number] 17:28:00* Test Item Value Reference Range Interpretation Comme [facility] POCT HBA1C (test code = 4548-4) 11.0 % 4-6 A Lab Interpretation (test cod e = 90026-5) Abnormal [facility] SARS-COV-2 ANTIGEN (BINAX NOW)2021-10-10 16:37:00* Test Item Value Reference Range Interpretation Comme [facility] POCT SARS-COV-2 ANTIGEN (isac t code = 5076) Not Detected Not Detected On board controls acceptable with C Line (test code = 3574) Yes Lab Interpretation (test cod e = 89308-4) Normal [facility] HEMOGLOBIN A1C [id number] 21:17:00* Test Item Value Reference Range Interpretation Comme nts POCT HBA1C (test code = 4548-4) 10.4 % 4-6 A Lab Interpretation (test cod e = 90342-7) [facility]normal [facility] [id number] 21:17:00* Test Item Value Reference Range Interpretation Comme nts POCT HBA1C (test code = 4548-4) 10.4 % 4-6 A Lab Interpretation (test cod e = 66942-8) Abnormal [facility]2019-11-15 06:40:00* Test Item Value Reference Range Interpretation Comme nts GLUBED (test code = GLUBED) 92 mg/dL 65-110 N [id number] 23:29:00* Test Item Value Reference Range Interpretation Comme nts GLUBED (test code = GLUBED) 98 mg/dL 65-110 N [id number] 06:39:00* Test Item Value Reference Range Interpretation Comme nts GLUBED (test code = GLUBED) 94 mg/dL 65-110 N [id number] 22:51:00* Test Item Value Reference Range Interpretation Comme nts GLUBED (test code = GLUBED) 112 mg/dL 65-110 H [id number] 19:02:00* Test Item Value Reference Range Interpretation Comme nts GLUBED (test code = GLUBED) 76 mg/dL 65-110 N [id number] 13:24:00* Test Item Value Reference Range Interpretation Comme nts GLUBED (test code = GLUBED) 80 mg/dL 65-110 N [id number] 07:43:00* Test Item Value Reference Range Interpretation Comme nts GLUBED (test code = GLUBED) 86 mg/dL 65-110 N [id number] 21:39:00* Test Item Value Reference Range Interpretation Comme nts GLUBED (test code = GLUBED) 111 mg/dL 65-110 H [id number] 18:57:00* Test Item Value Reference Range Interpretation Comme nts GLUBED (test code = GLUBED) 103 mg/dL 65-110 N CHEMISTRY 7 [id number] 13:47:00* Test Item Value Reference Range Interpretation Comme nts SODIUM (test code = NA) 139 mEq/L 135-145 N POTASSIUM (test code = K) 3.6 mEq/L 3.5-5.0 N CHLORIDE (test code = CL) 103 mEq/L 100-115 N CARBON DIOXIDE (test code = CO2) 29 mEq/L 22-31 N ANION GAP (test code = GAP) 10.30 10-20 N GLUCOSE (test code = GLU) 91 mg/dL 65-110 N BLOOD UREA NITROGEN (test co de = BUN) 2 mg/dL 7-18 L GLOMERULAR FILTRATION RATE ( test code = GFR) 98 ml/min >60 N CREATININE (test code = CREAT) 0.7 mg/dL 0.5-1.0 N CALCIUM (test code = CA) 8.5 mg/dL 8.4-10.2 N CBC W/AUTO [id number] 13:29:00* Test Item Value Reference Range Interpretation Comme nts WHITE BLOOD CELL (test code = WBC) [...] pg 27-35 N MEAN CELL HGB CONCETRATION ( test code = MCHC) 31.6 gm/dL 32.2-34.1 L RED CELL DISTRIBUTION WIDTH (test code = RDW) 14.8 % 12.4-16.5 N PLATELET COUNT (test code = PLT) 333 K/mm3 133-385 N IMMATURE PLATELET FRACTION ( test code = IPF) 0.0 % 0.0-10.8 N MEAN PLATELET VOLUME (test c ode = MPV) 10.4 fl 9.1-12.7 N NEUTROPHIL % (test code = NT%) 70.7 [...] = BA#) 0.0 K/mm3 RBC MORPHOLOGY REQUIRED (isac t code = RBCM) NORMAL NORMAL PLATELET MORPHOLOGY REQUIRED (test code = PLTMR) NORMAL NORMAL SOFT TISSUE,NOT DANNIE/MASS/[id number] 13:23:00 RUN DATE: 12/21/18 [facility] PAGE 1 RUN TIME: 1410 Specimen Inquiry RUN USER: INTERFACE --------- ---PATIENT: STACY THOMPSON LOC: JOSE U #: [id number] AGE/SX: 28/F ROOM: [facility] RE12/15/18REG DR: Arpan Min MD : 86 BED: A DIS: STATUS: ADM IN TLOC: SPEC #: [id number] RECD: 12/20/18 STATUS: OLEGARIO WHITESIDE #: [id number] ARELIS: 12/17/18- SUBM DR: Arpan Min MD ENTERED: 12/20/18 SP TYPE: SOFTNOTMLD OTHR DR: Jesús Moreau MD, Jill C MD Nasser, Dean A MDORDERED: LEVELIV CODES: [id number] - SOFT TISSUES, N COPIES TO: Jesús Moreau MD [address] [facility] [address] [place], [place] [id number] Lianet Weir MD [address] [id number] [email or web address] [address] [place], [place] [phone] Arpan Min MD [address] [facility] [address] [place], [place] [id number] PROCEDURES: LEVEL IV (Incomplete) TISSUES: SOFT TISSUES, NOS - EPIPLOACA WITH ABSCESS/SIGMOID/UTERUS,CERVIX,TUBES AND OVARIES CLINICAL HISTORY 28 year old, tubo-ovarian abscess (kr) CONTINUED ON NEXT PAGE ------ ------RUN DATE: 12/21/18 [facility] PAGE 2 RUN TIME: 1410 Specimen Inquiry RUN USER: INTERFACE NEEL Holman #: [id number]: STACY THOMPSON #[id number] (Continued) FINAL DIAGNOSIS Epiploica with abscess, excision: - fibroadipose tissue with acute, subacute and chronic inflammation with foreign body giant cell reactionSigmoid, resection: - diverticular disease - acute and chronic serositis with fibrous adhesions Uter us, bilateral fallopian tubes and ovaries, hysterectomy and bilateral salpingo- oophorectomy: - cervix - mild to moderate acute and chronic inflammation and parakeratosis - no dysplasia identified - endometrium - benign, proliferative phase - myometrium - no significant pathologic alteration - uterine serosa - acute, subacute and chronic inflammation - fibrous adhesions - bilateral fallopian tubesand ovaries- tubo-ovarian abscesses with severe transmural acute and chronic salpingitis, pyosalpinx, tuboovarian adhesions, and ovarian serosal abscesses CPT code(s): 12196 , 13197 [facility] 12/21/18 GROSS DESCRIPTION ANATOMIC [...] of a 24 cm in length and 4.5cm in circumference, slightly tortuous discontinuous segment of large bowel with attached pericolonic adipose tissue. Also received in the same container are two unremarkable ring-shaped segments of bowel, 1.8 and 2.2 cm. The serosa is pink-purple and hyperemic with multiple adhesions. The lumen isstrictured and contains ariza-brown, soft fecal material. The mucosa is ariza, focally hemorrhagic and slightly edematous with a few diverticula, 0.3 to 0.6 cm. The muscularis propria and ariza, firm, and thickened. There are no perforation sites or definite abscesses. However, within the pericolonic adipose tissue there are focal CONTINUED ON NEXT PAGE RUN DATE: 12/21/18 [facility] PAGE 3 RUNTIME: 1410 Specimen Inquiry RUN USER: INTERFACE SPEC #: [id number] PATIENT: STACY THOMPSON #[id number] (Continued) GROSS DESCRIPTION (Continued) areas of induration, fibrosis and possible fat necrosis. Section code: B1 - donuts, B2 through B6 - financial sales representative sections of bowel with possible diverticular disease, B7 - pericolonic adipose tissue. Specimen #3 is designated "uterus, cervix, bilateral fallopian tubes and ovaries" and consists of a 115 gm, 13.- x 7.5 x 4.5 cm slightly fragmented uterus witha partially attached cervix, fimbriated fallopian tubes (7.5 [...] excrescences. Section code: C1 - cervix, C2 -anterior endometrium, C3 - posterior endomyometrium, C4 - serosal adhesions, C5 and C6 - financial sales representative sections of small adnexa, C7 through C9 - financial sales representative sections of large adnexa. diana 12/20/18 @ 1125 Signed Diana James MD 12/21/18 1323 END OF REPORT [id number] 13:17:00* Test Item Value Reference Range Interpretation Comme nts GLUBED (test code = GLUBED) 89 mg/dL 65-110 N - XR ABDOMEN [id number] 10:26:00Patient Name: STACY THOMPSON Unit No: [id number] EXAMS: CPT CODE: [id number] XR ABDOMEN 2V 18320 ABDOMINAL RADIOGRAPHS-ERECT AND SUPINE COMPARISON: CT abdomen dated December 16, 2018 CLINICAL HISTORY: Intra-abdominal abscess No free intraperitoneal air is seen beneath the hemidiaphragms. Abdominalgas pattern is nonspecific with mild gaseous distention [...] signed by: Hamilton García MD CC: Lianet hickey Technologist: RT Dom Trnscrbd D/ (1026) t.[id number].[id number] Orig Print D/T: S:12/21/2018 (7460) [facility] NAME: DONNAJOSE ALEJANDRO MAYNARDINA Radiology Department PHYS: Arpan Wallace MD [address] : 1990 AGE: 28 SEX: F [place], [place] [address] LOC: [id number] A PHONE #: [phone] EXAM DATE: 12/21/2018 STATUS: ADM IN FAX #: [phone] RAD NO: Page 1 Signed [id number] 06:40:00* Test Item Value Reference Range Interpretation Comme nts GLUBED (test code = GLUBED) 117 mg/dL 65-110 H [id number] 00:48:00* Test Item Value Reference Range Interpretation Comme nts GLUBED (test code = GLUBED) 153 mg/dL 65-110 H [id number] 18:32:00* Test Item Value Reference Range Interpretation Comme nts GLUBED (test code = GLUBED) 83 mg/dL 65-110 N [id number] 12:58:00* Test Item Value Reference Range Interpretation Comme nts GLUBED (test code = GLUBED) 153 mg/dL 65-110 H CHEMISTRY 7 [id number] 05:45:00* Test Item Value Reference Range Interpretation Comme nts SODIUM (test code = NA) 139 mEq/L 135-145 N POTASSIUM (test code = K) 3.2 mEq/L 3.5-5.0 L CHLORIDE (test code = CL) 105 mEq/L 100-115 N CARBON DIOXIDE (test code = CO2) 27 mEq/L 22-31 N ANION GAP (test code = GAP) 10.40 10-20 N GLUCOSE (test code = GLU) 136 mg/dL 65-110 H BLOOD UREA NITROGEN (test co de = BUN) 3 mg/dL 7-18 L GLOMERULAR FILTRATION RATE ( test code = GFR) 98 ml/min >60 N CREATININE (test code = CREAT) 0.7 mg/dL 0.5-1.0 N CALCIUM (test code = CA) 8.1 mg/dL 8.4-10.2 L CBC W/AUTO [id number] 05:30:00* Test Item Value Reference Range Interpretation Comme nts WHITE BLOOD CELL (test code = WBC) [...] pg 27-35 L MEAN CELL HGB CONCETRATION ( test code = MCHC) 31.4 gm/dL 32.2-34.1 L RED CELL DISTRIBUTION WIDTH (test code = RDW) 14.8 % 12.4-16.5 N PLATELET COUNT (test code = PLT) 274 K/mm3 133-385 N IMMATURE PLATELET FRACTION ( test code = IPF) 0.0 % 0.0-10.8 N MEAN PLATELET VOLUME (test c ode = MPV) 10.3 fl 9.1-12.7 N NEUTROPHIL % (test code = NT%) 71.3 [...] = BA#) 0.1 K/mm3 RBC MORPHOLOGY REQUIRED (isac t code = RBCM) NORMAL NORMAL PLATELET MORPHOLOGY REQUIRED (test code = PLTMR) NORMAL NORMAL [id number] 00:18:00* Test Item Value Reference Range Interpretation Comme nts GLUBED (test code = GLUBED) 107 mg/dL 65-110 N [id number] 18:27:00* Test Item Value Reference Range Interpretation Comme nts GLUBED (test code = GLUBED) 144 mg/dL 65-110 H [id number] 12:13:00* Test Item Value Reference Range Interpretation Comme nts GLUBED (test code = GLUBED) 126 mg/dL 65-110 H [id number] 08:47:00* Test Item Value Reference Range Interpretation Comme nts MAGNESIUM (test code = MAG) 1.8 mg/dL 1.8-2.4 N Comments to Butcher Fish: DO ON BLOOD IN LAB-- DRAWN THIS AMSpecimen Comment: BLOOD IN LAB.CHEMISTRY 7 [id number] 05:19:00* Test Item Value Reference Range Interpretation Comme nts SODIUM (test code = NA) 141 mEq/L 135-145 N POTASSIUM (test code = K) 3.6 mEq/L 3.5-5.0 N CHLORIDE (test code = CL) 108 mEq/L 100-115 N CARBON DIOXIDE (test code = CO2) 27 mEq/L 22-31 N ANION GAP (test code = GAP) 9.80 10-20 L GLUCOSE (test code = GLU) 169 mg/dL 65-110 H BLOOD UREA NITROGEN (test co de = BUN) 4 mg/dL 7-18 L GLOMERULAR FILTRATION RATE ( test code = GFR) 98 ml/min >60 N CREATININE (test code = CREAT) 0.7 mg/dL 0.5-1.0 N CALCIUM (test code = CA) 7.5 mg/dL 8.4-10.2 L CBC W/AUTO [id number] 05:06:00* Test Item Value Reference Range Interpretation Comme nts WHITE BLOOD CELL (test code = WBC) [...] pg 27-35 L MEAN CELL HGB CONCETRATION ( test code = MCHC) 31.2 gm/dL 32.2-34.1 L RED CELL DISTRIBUTION WIDTH (test code = RDW) 15.0 % 12.4-16.5 N PLATELET COUNT (test code = PLT) 264 K/mm3 133-385 N IMMATURE PLATELET FRACTION ( test code = IPF) 0.0 % 0.0-10.8 N MEAN PLATELET VOLUME (test c ode = MPV) 10.2 fl 9.1-12.7 N NEUTROPHIL % (test code = NT%) 75.6 [...] = BA#) 0.1 K/mm3 RBC MORPHOLOGY REQUIRED (isac t code = RBCM) NORMAL NORMAL PLATELET MORPHOLOGY REQUIRED (test code = PLTMR) NORMAL NORMAL [id number] 00:47:00* Test Item Value Reference Range Interpretation Comme nts GLUBED (test code = GLUBED) 159 mg/dL 65-110 H [id number] 21:14:00* Test Item Value Reference Range Interpretation Comme nts C-PEPTIDE (test code = CPEP) 2.9 ng/mL 1.1-4.4 C-Peptide refere nce interval is for fasting patients.Performed At: [facility] [address] [id number] Rosa MD Ph:[phone] [id number] 21:14:00* Test Item Value Reference Range Interpretation Comme nts INSULIN (test code = INS) 22.1 uIU/mL 2.6-24.9 Performed At: [facility] [address] [id number] Rosa MD Ph:[phone] [id number] 18:25:00* Test Item Value Reference Range Interpretation Comme nts GLUBED (test code = GLUBED) 134 mg/dL 65-110 H [id number] 12:38:00* Test Item Value Reference Range Interpretation Comme nts GLUBED (test code = GLUBED) 137 mg/dL 65-110 H COMPREHENSIVE METABOLIC [id number] 05:57:00* Test Item Value Reference Range Interpretation Comme nts SODIUM (test code = NA) 137 mEq/L 135-145 N POTASSIUM (test code = K) 4.5 mEq/L 3.5-5.0 N CHLORIDE (test code = CL) 106 mEq/L 100-115 N CARBON DIOXIDE (test code = CO2) 25 mEq/L 22-31 N ANION GAP (test code = GAP) 10.50 10-20 N GLUCOSE (test code = GLU) 230 mg/dL 65-110 H BLOOD UREA NITROGEN (test co de = BUN) 8 mg/dL 7-18 N GLOMERULAR FILTRATION RATE ( test code = GFR) 84 ml/min >60 N CREATININE (test code = CREAT) 0.8 mg/dL [...] 20 units/L 12-78 N ALKALINE PHOSPHATASE TOTAL ( test code = ALKP) 69 units/L 46-116 N [id number] 05:57:00* Test Item Value Reference Range Interpretation Comme nts MAGNESIUM (test code = MAG) 1.0 mg/dL 1.8-2.4 L RESULTS CALLED Millie FRANK Y.RN.READ BACK & CONFIRMED? Y.BY MELISSAT 12/18/18 0557. RESULTS VERIFIED BY REPEAT ANALYSIS CBC W/AUTO [id number] 05:13:00* Test Item Value Reference Range Interpretation Comme nts WHITE BLOOD CELL (test code = WBC) 16.6 K/mm3 6.6-12.1 H Results verified by repeat analysis RED BLOOD CELL (test code = RBC) 4.16 M/mm3 3.45-5.01 N HEMOGLOBIN (test code = HGB) 11.2 g/dL 10.7-13.9 N HEMATOCRIT (test code = HCT) 35.2 % 32.1-42.1 Results verified by repeat analysis MEAN CELL VOLUME (test code = MCV) 85 fL 84.1-94.8 N MEAN CELL HGB (test code = MCH) 26.9 pg 27-35 L MEAN CELL HGB CONCETRATION (test code = MCHC) 31.8 gm/dL 32.2-34.1 L RED CELL DISTRIBUTION WIDTH (test code = RDW) 14.7 % 12.4-16.5 N PLATELET COUNT (test code = PLT) 309 K/mm3 133-385 N IMMATURE PLATELET FRACTION (test code = IPF) 0.0 % 0.0-10.8 N MEAN PLATELET VOLUME (test code = MPV) 10.9 fl 9.1-12.7 N NEUTROPHIL % (test code = NT%) 76.8 % 56.5-79.4 N LYMPHOCYTE % (test code = LY%) 12.1 % 14.3-34.3 L MONOCYTE % (test code = MO%) 10.3 % 5.1-10.4 N EOSINOPHIL % (test code = EO%) 0.0 % 0.1-3.0 L BASOPHIL % (test code = BA%) 0.3 % 0.1-1.0 N NEUTROPHIL # (test code = NT#) 12.7 K/mm3 LYMPHOCYTE # (test code = LY#) 2.0 K/mm3 MONOCYTE # (test code = MO#) 1.7 K/mm3 EOSINOPHIL # (test code = EO#) 0 K/mm3 BASOPHIL # (test code = BA#) 0.1 K/mm3 RBC MORPHOLOGY REQUIRED (test code = RBCM) NORMAL NORMAL PLATELET MORPHOLOGY REQUIRED (test code = PLTMR) NORMAL NORMAL [id number] 00:21:00* Test Item Value Reference Range Interpretation Comme nts GLUBED (test code = GLUBED) 280 mg/dL 65-110 H CHEMISTRY 7 [id number] 23:10:00* Test Item Value Reference Range Interpretation Comme nts SODIUM (test code = NA) 137 mEq/L 135-145 N POTASSIUM (test code = K) 4.1 mEq/L 3.5-5.0 N CHLORIDE (test code = CL) 105 mEq/L 100-115 N CARBON DIOXIDE (test code = CO2) 25 mEq/L 22-31 N ANION GAP (test code = GAP) 11.60 10-20 N GLUCOSE (test code = GLU) 344 mg/dL 65-110 H BLOOD UREA NITROGEN (test co de = BUN) 7 mg/dL 7-18 N GLOMERULAR FILTRATION RATE ( test code = GFR) 65 ml/min >60 N CREATININE (test code = CREAT) 1.0 mg/dL 0.5-1.0 N CALCIUM (test code = CA) 7.1 mg/dL 8.4-10.2 L CBC W/AUTO [id number] 18:05:00* Test Item Value Reference Range Interpretation Comme nts WHITE BLOOD CELL (test code = WBC) 28.6 K/mm3 6.6-12.1 HH RESULTS VERIFI ED BY REPEAT ANALYSISRESULTS CALLED TO KRISHNA .READ BACK & CONFIRMED? Y.BY F.LAB.RV 12/17/18 6892. RED BLOOD CELL (test code = RBC) 5.23 M/mm3 3.45-5.01 H HEMOGLOBIN (test code = HGB) 13.9 g/dL 10.7-13.9 N HEMATOCRIT (test code = HCT) 44.6 % 32.1-42.1 H MEAN CELL VOLUME (test code = MCV) 85 fL 84.1-94.8 N MEAN CELL HGB (test code = MCH) 26.6 pg 27-35 L MEAN CELL HGB CONCETRATION (test code = MCHC) 31.2 gm/dL 32.2-34.1 L RED CELL DISTRIBUTION WIDTH (test code = RDW) 14.7 % 12.4-16.5 N PLATELET COUNT (test code = PLT) 223 K/mm3 133-385 IMMATURE PLATELET FRACTION (test code = IPF) 0.0 % 0.0-10.8 N MEAN PLATELET VOLUME (test code = MPV) 10.9 fl 9.1-12.7 N MANUAL DIFF REQUIRED (test code = MDIFF) YES RBC MORPHOLOGY REQUIRED (test code = RBCM) NORMAL NORMAL PLATELET MORPHOLOGY REQUIRED (test code = PLTMR) NORMAL NORMAL WBC [id number] 18:05:00* Test Item Value Reference Range Interpretation Comme nts TOTAL CELLS COUNTED (test co de = TCC) 100 #CELLS SEGMENTED NEUTROPHILS (test code = SEG) 88 % 56.5-79.4 H BAND NEUTROPHIL (test code = BAND) 4 % 0-5 N LYMPHOCYTE (test code = LYMPH) 6 % 20-40 L MONOCYTE (test code = MON) 2 % 0-8 N PLATELET ESTIMATE (test code = PLTEST) ADEQUATE ADEQ PLATELET MORPHOLOGY (test co de = PLTMORPH) NORMAL NORMAL CHEMISTRY 7 [id number] 17:48:00* Test Item Value Reference Range Interpretation Comme nts SODIUM (test code = NA) 134 mEq/L 135-145 L POTASSIUM (test code = K) 5.7 mEq/L 3.5-5.0 H CHLORIDE (test code = CL) 101 mEq/L 100-115 N CARBON DIOXIDE (test code = CO2) 22 mEq/L 22-31 N ANION GAP (test code = GAP) 16.70 10-20 N GLUCOSE (test code = GLU) 371 mg/dL 65-110 H BLOOD UREA NITROGEN (test co de = BUN) 8 mg/dL 7-18 GLOMERULAR FILTRATION RATE ( test code = GFR) 74 ml/min >60 N CREATININE (test code = CREAT) 0.9 mg/dL 0.5-1.0 N CALCIUM (test code = CA) 7.5 mg/dL 8.4-10.2 L CBC W/AUTO [id number] 17:32:00* Test Item Value Reference Range Interpretation Comme nts WHITE BLOOD CELL (test code = WBC) 28.6 K/mm3 6.6-12.1 HH RESULTS VERIFI ED BY REPEAT ANALYSISRESULTS CALLED TO KRISHNA .READ BACK & CONFIRMED? Y.BY F.LAB.RV 12/17/18 3488. RED BLOOD CELL (test code = RBC) 5.23 M/mm3 3.45-5.01 H HEMOGLOBIN (test code = HGB) 13.9 g/dL 10.7-13.9 N HEMATOCRIT (test code = HCT) 44.6 % 32.1-42.1 H MEAN CELL VOLUME (test code = MCV) 85 fL 84.1-94.8 N MEAN CELL HGB (test code = MCH) 26.6 pg 27-35 L MEAN CELL HGB CONCETRATION (test code = MCHC) 31.2 gm/dL 32.2-34.1 L RED CELL DISTRIBUTION WIDTH (test code = RDW) 14.7 % 12.4-16.5 N PLATELET COUNT (test code = PLT) 223 K/mm3 133-385 IMMATURE PLATELET FRACTION (test code = IPF) 0.0 % 0.0-10.8 N MEAN PLATELET VOLUME (test code = MPV) 10.9 fl 9.1-12.7 N MANUAL DIFF REQUIRED (test code = MDIFF) YES RBC MORPHOLOGY REQUIRED (test code = RBCM) NORMAL PLATELET MORPHOLOGY REQUIRED (test code = PLTMR) NORMAL WBC [id number] 17:32:00* Test Item Value Reference Range Interpretation Comme nts SEGMENTED NEUTROPHILS (test code = SEG) % 56.5-79 .4 LYMPHOCYTE (test code = LYMPH) % 20-40 CBC W/AUTO [id number] 17:32:00* Test Item Value Reference Range Interpretation Comme nts WHITE BLOOD CELL (test code = WBC) 28.6 K/mm3 6.6-12.1 HH RESULTS VERIFI ED BY REPEAT ANALYSISRESULTS CALLED TO KRISHNA .READ BACK & CONFIRMED? Y.BY F.LAB.RV 12/17/18 1743. RED BLOOD CELL (test code = RBC) 5.23 M/mm3 3.45-5.01 H HEMOGLOBIN (test code = HGB) 13.9 g/dL 10.7-13.9 N HEMATOCRIT (test code = HCT) 44.6 % 32.1-42.1 H MEAN CELL VOLUME (test code = MCV) 85 fL 84.1-94.8 N MEAN CELL HGB (test code = MCH) 26.6 pg 27-35 L MEAN CELL HGB CONCETRATION (test code = MCHC) 31.2 gm/dL 32.2-34.1 L RED CELL DISTRIBUTION WIDTH (test code = RDW) 14.7 % 12.4-16.5 N PLATELET COUNT (test code = PLT) 223 K/mm3 133-385 IMMATURE PLATELET FRACTION (test code = IPF) 0.0 % 0.0-10.8 N MEAN PLATELET VOLUME (test code = MPV) 10.9 fl 9.1-12.7 N MANUAL DIFF REQUIRED (test code = MDIFF) YES RBC MORPHOLOGY REQUIRED (test code = RBCM) NORMAL PLATELET MORPHOLOGY REQUIRED (test code = PLTMR) NORMAL WBC [id number] 17:32:00* Test Item Value Reference Range Interpretation Comme nts SEGMENTED NEUTROPHILS (test code = SEG) % 56.5-79 .4 LYMPHOCYTE (test code = LYMPH) % 20-40 [id number] 14:59:00* Test Item Value Reference Range Interpretation Comme nts GLUBED (test code = GLUBED) 288 mg/dL 65-110 H [id number] 06:04:00* Test Item Value Reference Range Interpretation Comme nts GLUBED (test code = GLUBED) 201 mg/dL 65-110 H URINALYSIS [id number] 03:54:00* Test Item Value Reference Range Interpretation Comme nts UA COLOR (test code = COLU) YELLOW YELLOW UA APPEARANCE (test code = APPU) Slightly-Cloudy CLEAR UA GLUCOSE DIPSTICK (test code = DGLUU) 3+ NEG A UA BILIRUBIN DIPSTICK (test code = BILU) NEGATIVE NEG UA KETONE DIPSTICK (test cod e = KETU) NEGATIVE NEG UA SPECIFIC GRAVITY (test code = SGU) 1.033 1.001-1.035 N UA BLOOD DIPSTICK (test code = TYRA) NEG NEG UA PH DIPSTICK (test code = DELMY) 6.0 5-9 UA PROTEIN DIPSTICK (test code = PROU) NEGATIVE NEG UA UROBILINIOGEN DIPSTICK (test code = URO) NEGATIVE mg/dL NEG UA NITRITE DIPSTICK (test code = SANDRITA) NEG NEG UA LEUKOCYTE ESTERASE DIPSTICK (test code = LEUU) 2+ NEG A UA WBC (test code = WBCU) 20-30 #/hpf NONE SEEN A UA RBC (test code = RBCU) 5-10 #/hpf NONE SEEN A UA EPITHELIAL CELLS (test code = EPIU) MANY #/HPF RARE-FEW A UA BACTERIA (test code = BACU) RARE /HPF RARE-FEW UA MUCUS (test code = MUCU) 2+ NONE SEEN URINE SAMPLE: CLEAN CATCHComment URINE WITH CULTUREUR HCG [id number] 03:54:00* Test Item Value Reference Range Interpretation Comme nts UR HCG QUAL (test code = HCGQLU) NEGATIVE 1. Very dilute u rine specimens, as indicated by a lowspecific gravity, may not contain financial sales representative levels ofhCG. 2. False negative results may occur when the levels of hCGare below the sensitivity level of the test. If is still suspected, a first morningurine specimen should be collected 48 hours later andtested. URINE SAMPLE: CLEAN CATCHComment URINE WITH CULTUREURINALYSIS [id number] 03:38:00* Test Item Value Reference Range Interpretation Comme nts UA COLOR (test code = COLU) YELLOW UA APPEARANCE (test code = APPU) CLEAR UA GLUCOSE DIPSTICK (test code = DGLUU) NEGATIV E UA BILIRUBIN DIPSTICK (test code = BILU) NEGATIVE UA KETONE DIPSTICK (test code = KETU) NEGATIVE UA SPECIFIC GRAVITY (test code = SGU) 1.001-1.0 35 UA BLOOD DIPSTICK (test code = TYRA) NEGATIVE UA PH DIPSTICK (test code = DELMY) 5-9 UA PROTEIN DIPSTICK (test code = PROU) NEGATIVE UA UROBILINIOGEN DIPSTICK (t est code = URO) mg/dL NEG UA NITRITE DIPSTICK (test code = SANDRITA) NEGATIVE UA LEUKOCYTE ESTERASE DIPSTI CK (test code = LEUU) NEG UA WBC (test code = WBCU) #/hpf NONE SEEN UA EPITHELIAL CELLS (test code = EPIU) #/HPF RARE-FEW URINE SAMPLE: CLEAN CATCHComment URINE WITH CULTUREUR HCG [id number] 03:38:00* Test Item Value Reference Range Interpretation Comme nts UR HCG QUAL (test code = HCGQLU) NEGATIVE 1. Very dilute u rine specimens, as indicated by a lowspecific gravity, may not contain financial sales representative levels ofhCG. 2. False negative results may occur when the levels of hCGare below the sensitivity level of the test. If is still suspected, a first morningurine specimen should be collected 48 hours later andtested. URINE SAMPLE: CLEAN CATCHComment URINE WITH [id number] 22:09:00* Test Item Value Reference Range Interpretation Comme nts GLUBED (test code = GLUBED) 263 mg/dL 65-110 H Phsician Notifie d [id number] 17:08:00* Test Item Value Reference Range Interpretation Comme nts GLUBED (test code = GLUBED) 286 mg/dL 65-110 H [id number] 15:28:00* Test Item Value Reference Range Interpretation Comme nts CREATININE (test code = CREAT) 0.9 mg/dL 0.5-1.0 N IS THIS A ONCE DAILY SINGLE DOSE? YESDATE OF LAST DOSE: 12/16/18TIME OF LAST DOSE: [id number] 15:28:00* Test Item Value Reference Range Interpretation Comme nts GENTAMICIN (test code = GENT) 0.8 mcg/mL 0-14 N Adult normal ran ge for once daily dose of Gentamicin may beup to 24 mcg/mL. Gentamicin results must be correlated withthe time the dose was administered. IS THIS A ONCE DAILY SINGLE DOSE? YESDATE OF LAST DOSE: 12/16/18TIME OF LAST DOSE: [id number] 13:24:00* Test Item Value Reference Range Interpretation Comme nts GLUBED (test code = GLUBED) 274 mg/dL 65-110 H HCG [id number] 12:13:00* Test Item Value Reference Range Interpretation Comme nts HCG SERUM (test code = HCG) <1 INTERPRETATION:V ALUES BETWEEN 15-20 milliInternational units/mL NEED TO BERETESTED [...] THE ROOM AT THIS TIME. PHLEB/RBCHEMISTRY 7 [id number] 12:11:00* Test Item Value Reference Range Interpretation Comme nts SODIUM (test code = NA) 135 mEq/L 135-145 N POTASSIUM (test code = K) 4.0 mEq/L 3.5-5.0 N CHLORIDE (test code = CL) 100 mEq/L 100-115 N CARBON DIOXIDE (test code = CO2) 27 mEq/L 22-31 N ANION GAP (test code = GAP) 12.10 10-20 N GLUCOSE (test code = GLU) 259 mg/dL 65-110 H BLOOD UREA NITROGEN (test co de = BUN) 5 mg/dL 7-18 L GLOMERULAR FILTRATION RATE ( test code = GFR) 98 ml/min >60 N CREATININE (test code = CREAT) 0.7 mg/dL 0.5-1.0 N CALCIUM (test code = CA) 8.5 mg/dL 8.4-10.2 N PT.IS NOT IN THE ROOM AT THIS TIME. @ 48841GO TRY 1018 AM. PHLEB/RBCBC W/AUTO [id number] 11:40:00* Test Item Value Reference Range Interpretation Comme nts WHITE BLOOD CELL (test code = WBC) [...] pg 27-35 L MEAN CELL HGB CONCETRATION ( test code = MCHC) 30.3 gm/dL 32.2-34.1 L RED CELL DISTRIBUTION WIDTH (test code = RDW) 13.4 % 12.4-16.5 N PLATELET COUNT (test code = PLT) 373 K/mm3 133-385 N IMMATURE PLATELET FRACTION ( test code = IPF) 0.0 % 0.0-10.8 N MEAN PLATELET VOLUME (test c ode = MPV) 10.7 fl 9.1-12.7 N NEUTROPHIL % (test code = NT%) 70.4 [...] = BA#) 0.1 K/mm3 RBC MORPHOLOGY REQUIRED (isac t code = RBCM) NORMAL NORMAL PLATELET MORPHOLOGY REQUIRED (test code = PLTMR) NORMAL NORMAL COME BACK LATER- CT ABD PELVIS [id number] 11:01:00Patient Name: STACY THOMPSON Unit No: [id number] EXAMS: CPT CODE: [id number] CT ABD PELVIS [id number] Exam: CT scan of the abdomen and [...] focal abnormalities are noted. The spleen, pancreas, gallbla dder, biliary ductal system, adrenal glands, kidneys, ureters [...] wall demonstrates no significant abnormalities. IMPRESSION: [facility] NAME: STACY THOMPSON Radiology Department PHYS: Arpan Wallace MD [address] : 1990 AGE: 28 SEX: F [place], [place] [address] LOC: F.4672 A PHONE #: [phone] EXAM DATE: 12/16/2018 STATUS: ADM IN FAX #: [phone] RAD NO: Page 1 Signed Report 1 Patient Name: STACY THOMPSON Unit No: [id number] EXAMS: CPT CODE: [id number] CT ABD PELVIS W/CONT 62635 (Continued) Bilateral adnexal masses as described above. The patient gives a history of abscess drainage at [facility] October 05, 2018. She describes having drains and drainage bags on either side. The findings in the adnexal region may be sequela ofthis procedure. Prior images have been requested. Electronically Signed by Charissa Arreola MD on12/16/2018 at 1101 Reported and signed by: Charissa Arreola MD CC: Lianet Weir Technologist: Sarthak Coleman, RT, CT CTDI: 21.83 DLP: 1880.60 Trnscrbd D/ (1101) [facility] NAME: STACY THOMPSON Radiology Department PHYS: Arpan Wallace MD [address] : 1990 AGE: 28 SEX: F [place] [address] LOC: F.4672 A PHONE #: [phone] EXAM DATE: 12/16/2018 STATUS: ADM IN FAX #: [phone] RAD NO: Page 2 Signed Report 1 Patient Name: STACY THOMPSON Unit No: [id number] EXAMS: CPT CODE: [id number] CT ABD PELVISW/CONT 94028 (Continued) Orig Print D/T: S: 12/16/2018 (1104) [facility] NAME: STACY THOMPSON Radiology Department PHYS: Arpan Wallace MD [address] : 1990 AGE: 28 SEX: F [place] [address] LOC: F.4672 A PHONE #: [phone] EXAM DATE: 12/16/2018 STATUS: ADM IN FAX #: [phone] RAD NO: Page 3 Signed Report [id number] 07:07:00* Test Item Value Reference Range Interpretation Comme nts GLUBED (test code = GLUBED) 241 mg/dL 65-110 H CREATINE KINASE (CK)2018-12-15 19:52:00* Test Item Value Reference Range Interpretation Comme nts CREATINE KINASE (CK) (test c ode = CK) 60 Units/L 26-192 N [id number] 16:55:00* Test Item Value Reference Range Interpretation Comme nts GLUBED (test code = GLUBED) 339 mg/dL 65-110 H Phsician Notifie d GLYCOSYLATED HEMOGLOBIN [id number] 11:01:00* Test Item Value Reference Range Interpretation Comme nts GLYCOSYLATED HEMOGLOBIN (HA1C) (test code = GLYHGB) 9.2 % 4.8-5.9 H Any condition th at shortens erythocyte survival or decreasesmean erythrocyte age (e.g., [...] for these patients. MEAN BLOOD GLUCOSE (test code = MBG) 217 MG/DL 70-110 H COMPREHENSIVE METABOLIC [id number] 11:01:00* Test Item Value Reference Range Interpretation Comme nts SODIUM (test code = NA) 134 mEq/L 135-145 L POTASSIUM (test code = K) 3.9 mEq/L 3.5-5.0 N CHLORIDE (test code = CL) 100 mEq/L 100-115 N CARBON DIOXIDE (test code = CO2) 26 mEq/L 22-31 N ANION GAP (test code = GAP) 12.40 10-20 N GLUCOSE (test code = GLU) 371 mg/dL 65-110 H BLOOD UREA NITROGEN (test co de = BUN) 9 mg/dL 7-18 N GLOMERULAR FILTRATION RATE ( test code = GFR) 84 ml/min >60 N CREATININE (test code = CREAT) 0.8 mg/dL 0.5-1.0 N TOTAL PROTEIN (test code = PROT) 8.3 gm/dL 6.3-8.2 H ALBUMIN (test code = ALB) 3.0 gm/dL 3.4-4.8 L CALCIUM (test code = CA) 8.3 mg/dL 8.4-10.2 L BILIRUBIN TOTAL (test code = BILT) 0.7 mg/dL 0.2-1.0 N SGOT/AST (test code = AST) 39 units/L 15-37 H SGPT/ALT (test code = ALT) 42 units/L 12-78 N ALKALINE PHOSPHATASE TOTAL ( test code = ALKP) 103 units/L 46-116 N T4 [id number] 11:01:00* Test Item Value Reference Range Interpretation Comme nts T4 FREE (test code = T4F) 1.24 ng/dL 0.76-1.46 N THYROID STIMULATING [id number] 11:01:00* Test Item Value Reference Range Interpretation Comme nts THYROID STIMULATING HORMONE (test code = TSH) 3.27 0.36-3.74 N Test Performed i n MicroInternational Units/mL GLYCOSYLATED HEMOGLOBIN (HA1C)2018-12-15 11:01:00* Test Item Value Reference Range Interpretation Comme nts GLYCOSYLATED HEMOGLOBIN (HA1C) (test code = GLYHGB) 9.2 % 4.8-5.9 H Any conditi on that shortens erythocyte survival or decreasesmean erythrocyte age (e.g., [...] as fructosamineshould be considered for these patients. [id number] 10:19:00* Test Item Value Reference Range Interpretation Comme nts GLUBED (test code = GLUBED) 290 mg/dL 65-110 H Phsician Rufina reyes COMPREHENSIVE METABOLIC [id number] 07:23:00* Test Item Value Reference Range Interpretation Comme nts SODIUM (test code = NA) 134 mEq/L 135-145 L POTASSIUM (test code = K) 3.9 mEq/L 3.5-5.0 N CHLORIDE (test code = CL) 100 mEq/L 100-115 N CARBON DIOXIDE (test code = CO2) 26 mEq/L 22-31 N ANION GAP (test code = GAP) 12.40 10-20 N GLUCOSE (test code = GLU) 371 mg/dL 65-110 H BLOOD UREA NITROGEN (test co de = BUN) 9 mg/dL 7-18 N GLOMERULAR FILTRATION RATE ( test code = GFR) 84 ml/min >60 N CREATININE (test code = CREAT) 0.8 mg/dL 0.5-1.0 N TOTAL PROTEIN (test code = PROT) 8.3 gm/dL 6.3-8.2 H ALBUMIN (test code = ALB) 3.0 gm/dL 3.4-4.8 L CALCIUM (test code = CA) 8.3 mg/dL 8.4-10.2 L BILIRUBIN TOTAL (test code = BILT) 0.7 mg/dL 0.2-1.0 N SGOT/AST (test code = AST) 39 units/L 15-37 H SGPT/ALT (test code = ALT) 42 units/L 12-78 N ALKALINE PHOSPHATASE TOTAL ( test code = ALKP) 103 units/L 46-116 N T4 [id number] 07:23:00* Test Item Value Reference Range Interpretation Comme nts T4 FREE (test code = T4F) 1.24 ng/dL 0.76-1.46 N THYROID STIMULATING [id number] 07:23:00* Test Item Value Reference Range Interpretation Comme nts THYROID STIMULATING HORMONE (test code = TSH) 3.27 0.36-3.74 N Test Performed i n MicroInternational Units/mL GLYCOSYLATED HEMOGLOBIN (HA1C)2018-12-15 07:23:00* Test Item Value Reference Range Interpretation Comme nts GLYCOSYLATED HEMOGLOBIN (HA1 C) (test code = GLYHGB) [id number] 06:04:00* Test Item Value Reference Range Interpretation Comme nts GLUBED (test code = GLUBED) 308 mg/dL 65-110 H Phsician Notifie d COMPREHENSIVE METABOLIC PYJBL1831-39-00 05:10:00* Test Item Value Reference Range Interpretation Comme nts SODIUM (test code = NA) 134 mEq/L 135-145 L POTASSIUM (test code = K) 3.9 mEq/L 3.5-5.0 N CHLORIDE (test code = CL) 100 mEq/L 100-115 N CARBON DIOXIDE (test code = CO2) 26 mEq/L 22-31 N ANION GAP (test code = GAP) 12.40 10-20 N GLUCOSE (test code = GLU) 371 mg/dL 65-110 H BLOOD UREA NITROGEN (test co de = BUN) 9 mg/dL 7-18 N GLOMERULAR FILTRATION RATE ( test code = GFR) 84 ml/min >60 N CREATININE (test code = CREAT) 0.8 mg/dL 0.5-1.0 N TOTAL PROTEIN (test code = PROT) 8.3 gm/dL 6.3-8.2 H ALBUMIN (test code = ALB) 3.0 gm/dL 3.4-4.8 L CALCIUM (test code = CA) 8.3 mg/dL 8.4-10.2 L BILIRUBIN TOTAL (test code = BILT) 0.7 mg/dL 0.2-1.0 N SGOT/AST (test code = AST) 39 units/L 15-37 H SGPT/ALT (test code = ALT) 42 units/L 12-78 N ALKALINE PHOSPHATASE TOTAL ( test code = ALKP) 103 units/L 46-116 N THYROID STIMULATING EHPFFUB7162-20-81 05:10:00* Test Item Value Reference Range Interpretation Comme nts THYROID STIMULATING HORMONE (test code = TSH) 3.27 0.36-3.74 N Test Performed i n MicroInternational Units/mL GLYCOSYLATED HEMOGLOBIN (HA1C)2018-12-15 05:10:00* Test Item Value Reference Range Interpretation Comme nts GLYCOSYLATED HEMOGLOBIN (HA1 C) (test code = GLYHGB) LACTIC KTCV6829-45-26 04:53:00* Test Item Value Reference Range Interpretation Comme nts LACTIC ACID (test code = LACT) 1.5 MMOL/L 0.5-2.2 N CBC W/AUTO ISXS8941-68-68 04:30:00* Test Item Value Reference Range Interpretation Comme nts WHITE BLOOD CELL (test code = WBC) [...] pg 27-35 L MEAN CELL HGB CONCETRATION ( test code = MCHC) 30.5 gm/dL 32.2-34.1 L RED CELL DISTRIBUTION WIDTH (test code = RDW) 13.6 % 12.4-16.5 N PLATELET COUNT (test code = PLT) 373 K/mm3 133-385 N IMMATURE PLATELET FRACTION ( test code = IPF) 0.0 % 0.0-10.8 N MEAN PLATELET VOLUME (test c ode = MPV) 11.2 fl 9.1-12.7 N NEUTROPHIL % (test code = NT%) 74.8 [...] = BA#) 0.1 K/mm3 RBC MORPHOLOGY REQUIRED (isac t code = RBCM) NORMAL NORMAL PLATELET MORPHOLOGY REQUIRED (test code = PLTMR) NORMAL NORMAL - CT HEAD/BRAIN W/O [id number] 04:27:00Patient Name: STACY THOMPSON Unit No: [id number] EXAMS: CPT CODE: [id number] CT HEAD/BRAIN W/O CONT 03293 EXAM: CT, CT HEAD/BRAIN W/O CONTRAST; 12/15/2018, [...] to suggest subacute stroke. VENTRICLES: The lateral ventricles,third and fourth ventricles appear unremarkable. The basilar [...] acute hemorrhage or subacute stroke. SL: BRANDIN [facility] NAME: DONNA,STACY Radiology Department PHYS: Lianet Morrow MD [address] : 1990 AGE: 28 SEX: F [place] [address] LOC: F.4672 A PHONE #: [phone] EXAM DATE: 12/15/2018 STATUS: ADM IN FAX #: [phone] RAD NO: Page 1 Signed Report 1 Patient Name: STACY THOMPSON Unit No: [id number] EXAMS: CPT CODE: [id number] CT HEAD/BRAIN W/O CONT 25079 (Continued) at 0427 Reported and signed by: Paul Barreto M.D.CC: Lianet Weir Technologist: JENNI MEDINA, RT CTDI: 53.12 DLP: 879.86 Trnscrbd D/ (0427) AdeliaJS38 [facility] NAME: DONNASTACY MAYNARD Radiology Department PHYS: Lianet Morrow MD [address] : 1990 AGE: 28 SEX: F [place] [address] LOC: F.4672 A PHONE #: [phone] EXAM DATE: 12/15/2018 STATUS: ADM IN FAX #: RAD NO: Page 2 Signed Report 1 Patient Name: STACY THOMPSON Unit No: [id number] EXAMS:CPT CODE: [id number] CT HEAD/BRAIN W/O CONT 27987 (Continued) Orig Print D/T: S: 12/15/2018 (0430) [facility] NAME: STACY THOMPSON Radiology Department PHYS: Lianet Morrow MD [address] : 1990 AGE: 28 SEX: F [place], [place] [address] LOC: F.4672 A PHONE #: [phone] EXAM DATE: 12/15/2018 STATUS: ADM IN FAX #: [phone] RAD NO: Page 3 Signed Report 1Aerobic Bacterial Culture* Test Item Value Reference Range Interpretation Comme nts Aerobic Bacterial Culture (t est code = 634-6) Final report SARS-COV 2 AntigenSARS-COV 2 Antigen Notes Date/Time Note Provider Source 2022-10-28 15:11:43 2Aztfzho0wzbbg5hKSy0Pabstd9WXJ1yK6kyvR2b [facility] 5s55u7zaQQiFmsL8OIuDo8260-94-50Z06:11:43 Addended by: DAWN PADILLA on: 10/28/2022 03:11 PM Modules accepted: Orders 65940-8Dvbhzkuo OyegbxzvQK5473-33-40Y60:11:43Addendum DocumentTXT1.2.840.540835.1.13.104.2.7.2.72 7879|[id number] for patient sbtk18296-9GzrhTBSUANRXUY[address] ElbaJlnsogrxfAqmfzqrpwFBBJ0841757562UIFEGOU HCHWETJVPFVVQEB5814-25-97H91:11:431.2.840.1 22201.1.72.3.15|1.2.840.614378.1.13.104.2.7 .2.727879_[id number] [facility] 2022-10-21 20:43:37 Yd4TWfO6uGBT4Vi2TnPDn/4LSbjhM+Oz4EJYWnp+ N9M /BQd1ChTtTVunP3yhASnD3297-59-93Z67:43:37For matting of this note might be different from the original.Last OV:08/13/2022 with Sylvain Drummond NPLast Refill:05/23/2022Last Labs Pertaining to Med:N/AFuture Appt:11/17/2022 with Sylvain Drummond NPRouted to provider for review. 04841-4Egmoemvyy encounter BluuPT8972-18-52Q10:46:11Telephone encounter NoteTXT1.2.840.493531.1.13.104.2.7.2.820642 |[id number] for patient pyga07735-0LjfcHX076324775Wlgguev A Nelson RN[address] OqwxRtfxinpesPyjqfsfdsMWUK9875716119LMOCASQ ZUENEMTGXRGXNLV4131-97-08Q76:46:111.2.840.1 63651.1.72.3.15|1.2.840.663789.1.13.104.2.7 .2.727879_[id number] Amarilis Koenig RN [facility] 2022-10-21 08:30:00 jIHD+2xM6Y0mb8oFf5u9dXCRdsMVgY3Pd4QHGD9+ vJj 1D43xB0mMaLGApNtko/uk4599-42-96P84:30:00For matting of this note is different from the original.Patient presented with specimen for drop-off and was identified by and name. Collection information/ total volume were documented accordingly. The following specimens were sent to [facility] laboratories per lab order on 10/21/2022:24 hour urine Random urine Stool 1 Swab Other 08579-0Vbypz CnegMK6009-14-77H66:48:11Nurse NoteTXT1.2.840.534549.1.13.104.2.7.2.102384 |[id number] for patient ehiv94099-1Sitvi NoteLN[id number] YYWZPAFCGFOQMNN0717-04-07Y95:48:111.2.840.1 72242.1.72.3.15|1.2.840.946454.1.13.104.2.7 .2.727879_[id number] [facility] 2022-10-16 14:00:00 JqJh4TBZHIb5iWHNiXfIZjHYIJv6lyxJeQm4s5Bj SJ8 Fo+gMoZlGRRshO1cvz8C78795-05-84Y12:00:00For matting of this note might be different from the original.Patient lease picker stool cup 16842-2Wubwn WkweQM4863-56-35O96:58:15Nurse NoteTXT1.2.840.403853.1.13.104.2.7.2.919623 |1553124612HCClruoqlue for patient rviu29299-9Lxmkl NoteLN[id number] DEACONESS HOSPITALJSCRFMLLUTGMFCV9357-14-12Q18:58:151.2.840.1 73207.1.72.3.15|1.2.840.896128.1.13.104.2.7 .2.727879_[id number] [facility] 2022-10-13 11:59:37 LbcHOiVsbYy/brrEV+zmQnZLS95zI+pWdhIRNngs Ojx UwVH/v9yrIOaD4H3N92en9019-98-38Y79:59:37For matting of this note might be different from the original.See telephone message dated 10/06/2022. Per Sylvain ORTEGAP, she is unable to write a letter indicating such. 25660-6Rslehldkb encounter VwjxIS8698-19-44Y90:00:35Telephone encounter NoteTXT1.2.840.338869.1.13.104.2.7.2.673435 |5881076881QMMnwlrwqxo for patient pjnl94508-2ArgfAZ496185692Aeptgsc A Nelson RN[id number] HEALTHWKYUNUWOMCWAQGZ1285-15-06K62:00:351.2.840.1 93538.1.72.3.15|1.2.840.386418.1.13.104.2.7 .2.727879_[id number] Amarilis Koenig RN [facility] 2022-10-07 16:53:51 x6PyImcD+YjJQalYDpfmLYGh8lPAPl+pObhLhd7G [place] ainHvhZQKNpRioslEhWZa1433-22-04M38:53:51For matting of this note might be different from the original.Spoke with patient, verbalized understanding Rowena, can not write the letter as there was not a need. 51575-7Sxavogrhb encounter RlkaZZ1209-14-71Q57:54:44Telephone encounter NoteTXT1.2.840.856974.1.13.104.2.7.2.771642 |9641271463VOKmlovobiq for patient ygms27819-2JbdpPQ022897317Fcwegm L Reid RN[id number] YSWXONHDKLVDKRJ9574-30-83X34:54:441.2.840.1 95550.1.72.3.15|1.2.840.575333.1.13.104.2.7 .2.727879_[id number] Anjelica Hoyos RN [facility] 2022-10-07 09:57:00 JCgCRYcHvtpZtbhncH3RA3dLXdbFzfNgqKgzA6sA XjI ytt0qhBrxhnJmXhs5qYvm3209-80-03J19:57:00For matting of this note might be different from the original.Pt is checking the status. 14337-7Hcknzsrnh encounter UfbwAN0236-92-34F34:57:43Telephone encounter NoteTXT1.2.840.566533.1.13.104.2.7.2.326380 |3515697049EOTujjhyejd for patient smua11715-7VegxJW25308512Owqes J Barnshaw[id number] CDIGSSFTXYMYZTE3145-05-89F72:57:431.2.840.1 09196.1.72.3.15|1.2.840.549918.1.13.104.2.7 .2.727879_[id number] Beth Walden [facility] 2022-10-06 16:25:51 SlWAkVU/3LAivoUIDEKnoeqRPhn0jobV7BtyqkVP vi4 OPEBzWMQn+ZGeTFIYTZLF0553-24-49P07:25:51For matting of this note might be different from the original.Unfortunately, at this time there is no supporting medical indication that accomodates that request. 89998-1Wqfbjisab encounter LzxxZW0036-51-60S12:47:08Telephone encounter NoteTXT1.2.840.855509.1.13.104.2.7.2.851342 |8093548690FHOfszuexyu for patient xuym14764-5DiqdMBNVPEBAXU[id number] GZOEERWGVIVQEGY0059-62-78F68:47:081.2.840.1 91222.1.72.3.15|1.2.840.320835.1.13.104.2.7 .2.727879_[id number] [facility] 2022-10-06 11:20:30 SRlzT3GAEJQuxxcxiEZzHJw9pZquee2t6KPpdiqw 5YK 48MHe+7qR4Az6F5ePa68H0560-52-92S23:20:30For matting of this note might be different from the original.Pt calling wanting the dr to write her a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 and dietitian consult Objective Physical ExamVS/I OLast Documented: Result Date Time Pulse Ox 98 12/22 719 B/P 104/67 12/22 719 B/P Mean 79.2 12/22 719 Temp 98.2 12/22 719 Pulse 72 12/22 719 Resp 18 12/22 719 O2 Delivery Room air 12/21 032 O2 Flow Rate 2.532942 12/17 2049 24 hour I O ending at 0700: 12/21 1900 Intake Total 1575.00 4680.00 Output Total 970 2180 Balance 605.00 2500.00 Intake, IV 1575.00 3240.00 Intake, Oral 1440 Number Voids 3 Output, 20 30 Drainage Output, Urine 950 2150 Patient Weight Weight (lb): 259Weight (oz): 15.86Weight (kg): 117.930 HEENT: anicteric, moist mucosal membranes, normal pharynx, pupils reactive to light, sclera clearCardiovascular: normal heart soundsRespiratory: aerating well, clear to auscultation, symmetric expansion, no distressAbdomen: normal bowel sounds, non-tender, soft, no CVA tenderness, no distentionExtremities: moves allSkin: dry, intact, normal color Current MedicationsMedications:Active Meds + DC'd Last 24 HrsNitrofurantoin Macrocrystals 100 MG Q12H PO Potassium Chloride [...] 500 MG Q24H IV Sodium Chloride 100 MLDiatrizoate Meglum/Diatrizoate Sod 40 ML ONCE PRN PO (DC) Clindamycin Phosphate 50 ML Q8H IV Gentamicin Sulfate 400 MG Q24H IV Sodium Chloride 100 MLLactated Ringer's 1,000 ML ASDIR IV Magnesium Hydroxide 30 ML Q8H PRN PRN PO ResultsFindings/Data:Laboratory Tests 12/21 12/21 12/20 12/20 0622 0036 1820 1246 Chemistry POC Glucose (65 - 110 mg/dL) 117 H 153 H 83 153 H Radiology data:Recent Impressions:RADIOLOGY - XR ABDOMEN 2V 12/21 1000 Report Impression - Status: SIGNED Entered: 12/21/2018 1029 IMPRESSION: Nonspecific bowel gas pattern.Impression By: [email or web address] - Hamilton García MD Results: no new labs Treatment Prophylaxis Treatment ProphylaxisFoley status: noneUrinary cath documentation:Plan ID changes on antibiotitcs Dietitian consult soft diet 1500 calories may need to re explored incision and lavage yesterday before Melicot came out Gram stain and culture done at 1131 RPT #:[id number] OF REPORT PRProgress Vbdu0271-01-06K52:19:00F.[id number] VAvailable for patient jgowEDBAFYLOOUBVVI5674-47-99I32:32:05 [facility] 2018-12-21 08:55:00 SHsnptqpokb38785626gvmmpdvCAbr6RYoq8nB0z 28q dX4W+aBSabeO9I35/LxRervUg35saYx7gFSKFMa3771 10-21-11T08:55:00 [facility] ([facility])Critical Care Progress NoteREPORT#:[id number] REPORT STATUS: SignedDATE:12/21/18 TIME: 08 PATIENT: STACY THOMPSON UNIT #: [id number]#: [id number] ROOM/BED: [facility]-ADOB: [birth year] AGE: 28 SEX: F ATTEND: Arpan Min [facility] AUTHOR: Kristofer Ellison MD * ALL edits or amendments must be made on the electronic/computer document * SubjectiveComments:had nausea and vomiting overnight. having bm loose stool.salima is controlled. Objective GeneralVS/I OLast Documented: Result Date Time Pulse Ox 98 12/22 719 B/P 104/67 12/22 719 B/P Mean 79.2 12/22 719 Temp 98.2 12/22 719 Pulse 72 12/22 719 Resp 18 12/22 719 O2 Delivery Room air 12/21 0322 O2 Flow Rate 2.009268 12/17 2049 24 hour I O ending at 0700: 12/21 0700 12/20 1900 Intake Total 1575.00 4680.00 Output Total 970 2180 Balance 605.00 2500.00 Intake, IV 1575.00 3240.00 Intake, Oral 1440 Number Voids 3 Output, 20 30 Drainage Output, Urine 950 2150 Medications:Active Meds + DC'd Last 24 HrsNitrofurantoin Macrocrystals 100 MG Q12H PO Potassium Chloride [...] 500 MG Q24H IV Sodium Chloride 100 MLDiatrizoate Meglum/Diatrizoate Sod 40 ML ONCE PRN PO (DC) Clindamycin Phosphate 50 ML Q8H IV Gentamicin Sulfate 400 MG Q24H IV Sodium Chloride 100 MLLactated Ringer's 1,000 ML ASDIR IV Magnesium Hydroxide 30 ML Q8H PRN PRN PO Physical ExamHead/Eyes: atraumatic, normocephalic, PERRLENT: moist mucosal membranesNeck: full range of motion, non-tender, normal thyroid, short thickCardiovascular: tachycardia, normal heart sounds, normal S1 S2, no murmur, no rubRespiratory/Chest: aerating well, clear to auscultation, symmetric expansionAbdomen: tenderness (approp post op near wound site), soft, no distention, no guarding, no mass/organomegaly, no rebound, incsion cdiExtremities: moves all, normal capillary refill, normal temperatureNeuro/INSURANCE AUDITOR: alert, oriented X 3, CNII-XII intactSkin: normal color, normal temperature Diagnosis, Assessment PlanHospital course to date:AssessmentTubo-ovarian abscess with subsequent adhesions and postinflammatory changes etc.s/p hysterectomy, salpingo-oophorectomy, lysis of adhesions, bowel resectionDiabetes mellitus w with hyperglycemiaE. coli UTIMorbid obesity with BMI of 46post op nauseaDVT riskhypokalemia Recommendations and planambulateanti emetic, may need to slow dietContinue antibioticsFollow urine cultures for ID and sensitivity- id dr moreau followingGlucose control-Per endocrine DVT prophylaxis w lovenox at 0856 [facility] #:[id number] OF REPORT PRProgress Azia0221-33-96C02:55:00F.[id number] VAvailable for patient bgcsOIKIIDWBJHUNWI8618-00-34S13:57:02 [facility] 2018-12-21 07:20:00 LProzzswlqc899241840Pz76vWkO9hos4P8lPBYO 9WP o60i+lmuCBSAZeBs5ddhSOCcwE/R8ePQADD7RTmy145 10-21-11T07:20:00 [facility] ([facility])General Surgery Progress NoteREPORT#:[id number] REPORT STATUS: SignedDATE:12/21/18 TIME: 719 PATIENT: STACY THOMPSON UNIT #: [id number]#: [id number] ROOM/BED: [facility]-ADOB: [birth year] AGE: 28 SEX: F ATTEND: Arpan Min [facility] AUTHOR: Osman Farias MD * ALL edits or amendments must be made on the electronic/computer document * GeneralDate of surgery: 12/17/18Status post:PRETTY-BSO, Enterolysis, Partial sigmoid resection w' anastomosis SubjectiveComments:Patient came out of ICU yesterday. Reports some nausea and emesis. Per patientand nursing, lower part of incision opened slightly. Covered with steri strips. Reports she is continuing to pass flatus and having small liquid bowel movements with voids. Denies bloating. Objective Physical ExamVS/I OLast Documented: Result Date Time Pulse Ox 98 12/21 0720 B/P 104/67 12/21 0720 B/P Mean 79.2 12/21 07 Temp 98.2 12/21 0720 Pulse 72 12/21 0720 Resp 18 12/21 0720 O2 Delivery Room air 12/21 0322 O2 Flow Rate 2.745739 12/17 2049 Vital Signs Date Temp Pulse Resp B/P B/P Mean Pulse Ox FiO2 12/20-12/21 98.1-98.8 72-82 16-19 98-125/52-81 73-96 95-100 24 hour I O ending at 0700: 12/21 0700 12/20 1900 Intake Total 1575.00 4680.00 Output Total 2180 Balance 1575.00 2500.00 Intake, IV 1575.00 3240.00 Intake, Oral 1440 Number Voids 3 Output, 30 Drainage Output, Urine 2150 Patient Weight Weight (lb): 259Weight (oz): 15.86Weight (kg): 117.930 General appearance: alert, awake, oriented, no acute distressAbdomen: Soft, ND, ATTP, abdominal binder in place Diagnosis, Assessment PlanFree Text A P:Ms Thompson is a 28 year-old female now POD #4 from Laparoscopic converted to openTAH-BSO, Marisol, and partial sigmoid resection with primary anastomosis. Patient now starting to have some return of bowel function. - ADAT soft if nausea improves- Pain control- Rest of care per Dr. Min at 0722 RPT #:[id number] OF REPORT PRProgress Wjlf7323-85-09F60:20:00F.[id number] VAvailable for patient hgodWJNKIRXGKELAWW5576-14-03V91:22:53 [facility] 2018-12-20 10:21:00 OQsnxckdtzl50195306i1twkHRaWZvp9HU/bZuw0 sa9 29ELgNwutrC+RsVHB9qKa3ckhCWOW33Cc8nRUCvO023 10-20-10T10:21:00 [facility] ([facility])Gynecology Post Prog NoteREPORT#:[id number] REPORT STATUS: SignedDATE:12/20/18 TIME: 1021 PATIENT: STACY THOMPSON UNIT #: [id number]#: [id number] ROOM/BED: [facility]-ADOB: [birth year] AGE: 28 SEX: F ATTEND: Arpan Min MDADM AUTHOR: Arpan Min MD * ALL edits or amendments must be made on the electronic/computer document * GeneralPost-op: day 3Status post:PRETTY+BSOENTEROLYSIS ADHESIOLYSISCOLON RESECTION ANSTOMOSISAntibiotics: day 8 SubjectivePatient reports:No: complaints (flatus snf no bm). Comments:Has no pain; anxious to have her own room and showerl flatus small and will advance to full iquid diet. On potassium replacement. Jimenez to be discontinue. Continue IV antibiotics and add macrobid for UTI Objective Physical ExamVS/I OLast Documented: Result Date Time Pulse Ox 95 12/21 399 B/P 109/63 12/21 399 B/P Mean 81 12/21 399 Temp 98.1 12/21 399 Pulse 79 12/21 399 Resp 14 12/21 399 O2 Delivery Nasal cannula 12/17 2049 O2 Flow Rate 2.089679 12/17 2049 24 hour I O ending at 0700: 12/20 1900 Intake Total 2030.00 Output Total 1875 Balance 155.00 Intake, IV 1590.00 Intake, Oral 440 Output, Urine 1875 Patient Weight Weight (lb): 259Weight (oz): 15.86Weight (kg): 117.930 Wound/incision: Location:midline umbilical dry and cleanabdomen soft and not distended Site condition: dressing clean dry, dressing intactHEENT: anicteric, moist mucosal membranes, normal pharynx, pupils reactive to light, sclera clearNeck: non-tenderCardiovascular: normal heart soundsRespiratory: aerating well, clear to auscultation, symmetric expansion, no distressAbdomen: non-tender, soft, no CVA tenderness, no distentionExtremities: moves all Current MedicationsMedications:Active Meds + DC'd Last 24 HrsPotassium Chloride 20 MEQ ONCE ONE PO (DC) [...] 500 MG Q24H IV Sodium Chloride 100 MLDiatrizoate Meglum/Diatrizoate Sod 40 ML ONCE PRN PO Clindamycin Phosphate 50 ML Q8H IV Gentamicin Sulfate 400 MG Q24H IV Sodium Chloride 100 MLLactated Ringer's 1,000 ML ASDIR IV Magnesium Hydroxide 30 ML Q8H PRN PRN PO ResultsFindings/Data:Laboratory Tests 12/20 12/20 12/19 12/19 0502 0006 [...] % (Auto) (14.3 - 34.3 %) 16.8 Morehouse % (Auto) (5.1 - 10.4 %) 8.8 Eos % (Auto) (0.1 - 3.0 %) 2.1 Baso % (Auto) (0.1 - 1.0 %) 0.5 Neut # (Auto) (K/mm3) 6.9 Lymph # (Auto) (K/mm3) 1.6 Morehouse # (Auto) (K/mm3) 0.9 Eos # (Auto) (K/mm3) 0.20 Baso # (Auto) (K/mm3) 0.1 Immature Plt Fraction (0.0 - 10.8 %) 0.0 Results: no new labs Treatment Prophylaxis Treatment ProphylaxisFoley status: discontinue todayOther:Transfer to [facility] at 1026 RPT #:[id number] OF REPORT PRProgress Ypsj6677-40-52O22:21:00F.[id number] VAvailable for patient eaqtISVTJBYGDVNLDZ3516-36-59Z21:27:13 [facility] 2018-12-20 08:19:00 SKvwdggciyd70619020lBTZc6Ej6BDBFNMVsdRfi Josefa 1AHHL1FcjtMpROCt0pTjev7IaCEjIwMHI2tY3cvS117 10-20-10T08:19:00 [facility] ([facility])Critical Care Progress NoteREPORT#:[id number] REPORT STATUS: SignedDATE:12/20/18 TIME: 818 PATIENT: STACY THOMPSON UNIT #: [id number]#: [id number] [facility]GE: 28 SEX: F ATTEND: Arpan Min MDADM AUTHOR: Kristofer Ellison MD * ALL edits or amendments must be made on the electronic/computer document * SubjectiveComments:some bleching, few flatus, no more nasues almita some clearhas ambulated no bmpain is controlled. Objective GeneralVS/I OLast Documented: Result Date Time Pulse Ox 95 12/20 0400 B/P 109/63 12/20 0400 B/P Mean 81 12/21 399 Temp 98.1 12/21 399 Pulse 79 12/21 399 Resp 14 12/21 399 O2 Delivery Nasal cannula 12/17 2049 O2 Flow Rate 2.573836 12/17 2049 24 hour I O ending at 0700: 12/20 0712/19 1900 Intake Total 2030.00 Output Total 1875 Balance 155.00 Intake, IV 1590.00 Intake, Oral 440 Output, Urine 1875 Medications:Active Meds + DC'd Last 24 HrsPotassium Chloride 20 MEQ ONCE ONE PO Potassium [...] 500 MG Q24H IV Sodium Chloride 100 MLDiatrizoate Meglum/Diatrizoate Sod 40 ML ONCE PRN PO Clindamycin Phosphate 50 ML Q8H IV Gentamicin Sulfate 400 MG Q24H IV Sodium Chloride 100 MLLactated Ringer's 1,000 ML ASDIR IV Magnesium Hydroxide 30 ML Q8H PRN PRN PO Physical ExamGeneral appearance: obese, alert, awake, oriented, no acute distress, pleasant, conversational, mental status normal, no respiratory distressHead/Eyes: atraumatic, normocephalic, PERRLENT: moist mucosal membranesNeck: full range of motion, non-tender, normal thyroid, short thickCardiovascular: tachycardia, normal heart sounds, normal S1 S2, no murmur, no rubRespiratory/Chest: aerating well, clear to auscultation, symmetric expansionAbdomen: tenderness (approp post op near wound site), soft, no distention, no guarding, no mass/organomegaly, no rebound, incsion cdiExtremities: moves all, normal capillary refill, normal temperatureNeuro/INSURANCE AUDITOR: alert, oriented X 3, CNII-XII intactSkin: normal color, normal temperature ResultsFindings/Data:Laboratory Tests 12/20/18 0502:[Embedded Image Not Available]Laboratory Tests 12/20 12/20 12/19 12/19 12/19 0502 [...] % (Auto) (14.3 - 34.3 %) 16.8 Morehouse % (Auto) (5.1 - 10.4 %) 8.8 Eos % (Auto) (0.1 - 3.0 %) 2.1 Baso % (Auto) (0.1 - 1.0 %) 0.5 Neut # (Auto) (K/mm3) 6.9 Lymph # (Auto) (K/mm3) 1.6 Morehouse # (Auto) (K/mm3) 0.9 Eos # (Auto) (K/mm3) 0.20 Baso # (Auto) (K/mm3) 0.1 Immature Plt Fraction (0.0 - 10.8 %) 0.0 Microbiology:12/17 1500 NASAL: MRSA Screen - COMP Diagnosis, Assessment PlanHospital course to date:AssessmentTubo-ovarian abscess with subsequent adhesions and postinflammatory changes etc.s/p hysterectomy, salpingo-oophorectomy, lysis of adhesions, bowel resectionDiabetes mellitus w with hyperglycemiaE. coli UTIMorbid obesity with BMI of 46post op nauseaDVT riskhypokalemia Recommendations and planContinue antibioticsFollow urine cultures for ID and sensitivity- id dr moreau followingGlucose control-Per endocrine DVT prophylaxis w lovenox ambulationrepalce lytes-[facility] jimenez at 0822 RPT #:[id number] OF REPORT PRProgress Llzp6208-38-11M13:19:00F.[id number] VAvailable for patient ctspISESBIRGHMTWBX1106-56-63Z25:23:01 [facility] 2018-12-20 07:32:00 [id number]/T78MgQ6poL Q27 ZJFRrNqzu5V6Cm8kS42MJJY20y/AG5an2OX7Gv65516 10-20-10T07:32:00 [facility] ([facility])General Surgery Progress NoteREPORT#:[id number] REPORT STATUS: SignedDATE:12/20/18 TIME: 0732 PATIENT: STACY THOMPSON UNIT #: [id number]#: [id number] ROOM/BED: [facility]-ADOB: [birth year] AGE: 28 SEX: F ATTEND: Arpan Min MDADM AUTHOR: Osman Farias MD * ALL edits or amendments must be made on the electronic/computer document * GeneralDate of surgery: 12/17/18Status post:PRETTY-BSO, Enterolysis, Partial sigmoid resection w/ ' anastomosis SubjectiveComments:Patient reports feeling much better today. Tolerating clears with some nausea and bloating, but no emesis. This morning did pass a small amount of flatus. Ambulating with good pain control. Objective Physical ExamVS/I OLast Documented: Result Date Time Pulse Ox 95 12/20 0400 B/P 109/63 12/20 0400 B/P Mean 81 12/20 0400 Temp 98.1 12/21 399 Pulse 79 12/20 0400 Resp 14 12/20 0400 O2 Delivery Nasal cannula 12/17 2049 O2 Flow Rate 2.246461 12/17 2049 Vital Signs Date Temp Pulse Resp B/P B/P Mean Pulse Ox FiO2 12/19-12/20 97.8-98.6 74-94 13-24 100-148/56-70 74-101 95-99 24 hour I O ending at 0700: 12/20 0700 12/19 1900 Intake Total 2030.00 Output Total 1875 Balance 155.00 Intake, IV 1590.00 Intake, Oral 440 Output, Urine 1875 Patient Weight Weight (lb): 259Weight (oz): 15.86Weight (kg): 117.930 General appearance: alert, awake, oriented, no acute distressAbdomen: Soft, ND, ATTP, Incisions i/c/d. Diagnosis, Assessment PlanFree Text A P:Ms Thompson is a 28 year-old female now POD #3 from Laparoscopic converted to openTAH-BSO, Mariosl, and partial sigmoid resection with primary anastomosis. Patient now starting to have some return of bowel function. - ADAT soft if continues to pass flatus- Pain control- Rest of care per Dr. Min and ICU team at 0735 RPT #:[id number] OF REPORT PRProgress Spqi4790-18-39P52:32:00F.[id number] VAvailable for patient zfugHQSTNVVCWFFJER4172-16-42V41:35:39 [facility] 2018-12-19 16:01:00 [id number]/5dVS Kit 6FF2zNF/fnKiMDi7Z2T36gcR8JEqSiuhnhMvBM0a287 10-20-09T16:01:00 [facility] ([facility])Critical Care Progress NoteREPORT#:[id number] REPORT STATUS: SignedDATE:12/19/18 TIME: 1601 PATIENT: STACY THOMPSON UNIT #: [id number]#: [id number] [facility] AGE: 28 SEX: F ATTEND: Arpan Min MDADM AUTHOR: Kristofer Ellison MD * ALL edits or amendments must be made on the electronic/computer document * SubjectiveComments:Doing better, ambulated some. no bm/flatus. No more emesis. Has gas pains. did almita some clears Objective GeneralVS/I OLast Documented: Result Date Time Pulse Ox 98 12/19 1251 B/P 141/63 12/19 1251 B/P Mean 90 12/19 1251 Pulse 94 12/19 1251 Temp 98.6 12/19 1200 Resp 19 12/19 1200 O2 Delivery Nasal cannula 12/17 2049 O2 Flow Rate 2.412043 12/17 2049 24 hour I O ending at 0700: 12/19 0700 12/18 1900 Intake Total 1840.00 2075.00 Output Total 1100 810 Balance 740.00 1265.00 Intake, IV 1600.00 2075.00 Intake, Oral 240 Output, 15 Drainage Output, Urine 1100 795 Medications:Active Meds + DC'd Last 24 HrsMagnesium Oxide 400 MG TID PO (CKD) Simethicone [...] 500 MG Q24H IV Sodium Chloride 100 MLDiatrizoate Meglum/Diatrizoate Sod 40 ML ONCE PRN PO Clindamycin Phosphate 50 ML Q8H IV Gentamicin Sulfate 400 MG Q24H IV Sodium Chloride 100 MLLactated Ringer's 1,000 ML ASDIR IV Magnesium Hydroxide 30 ML Q8H PRN PRN PO Physical ExamGeneral appearance: obese, alert, awake, orientedHead/Eyes: atraumatic, normocephalic, PERRLENT: moist mucosal membranesNeck: full range of motion, non-tender, normal thyroid, short thickCardiovascular: tachycardia, normal heart sounds, normal S1 S2, no murmur, no rubRespiratory/Chest: aerating well, clear to auscultation, symmetric expansionAbdomen: tenderness, soft, no distention, no guarding, no mass/organomegaly, no rebound, incsion cdiExtremities: moves all, normal capillary refill, normal temperatureNeuro/INSURANCE AUDITOR: alert, oriented X 3, CNII-XII intactSkin: normal color, normal temperature ResultsFindings/Data:Laboratory Tests 12/19/18 0500:[Embedded Image Not Available]Laboratory Tests 12/19 12/19 12/19 12/19 12/18 1159 [...] (Auto) (14.3 - 34.3 %) 14.0 L Morehouse % (Auto) (5.1 - 10.4 %) 8.3 Eos % (Auto) (0.1 - 3.0 %) 1.1 Baso % (Auto) (0.1 - 1.0 %) 0.4 Neut # (Auto) (K/mm3) 11.5 Lymph # (Auto) (K/mm3) 2.1 Morehouse # (Auto) (K/mm3) 1.3 Eos # (Auto) (K/mm3) 0.16 Baso # (Auto) (K/mm3) 0.1 Immature Plt Fraction (0.0 - 10.8 %) 0.0 Microbiology:12/17 1500 NASAL: MRSA Screen - COMP12/17 0315 URINE: Urine Culture - COMP ESCHERICHIA COLI Diagnosis, Assessment PlanHospital course to date:AssessmentTubo-ovarian abscess with subsequent adhesions and postinflammatory changes etc.s/p hysterectomy, salpingo-oophorectomy, lysis of adhesions, bowel resectionDiabetes mellitus w with hyperglycemiaE. coli UTIMorbid obesity with BMI of 46post op nauseaDVT risk Recommendations and planContinue antibioticsFollow urine cultures first ID and sensitivityGlucose control-Per endocrine DVT prophylaxis w lovenox ambulation at 1746 RPT #:[id number] OF REPORT PRProgress [id number]:01:00F.[id number] VAvailable for patient nfmoKZUEDNYKGKHNLY6354-50-12Z22:47:01 [facility] 2018-12-19 09:53:00 [id number] DCd R2qxVSlStaC/w3u9zFvAdDIpEBMShL74l8lu3gi1898 10-20-09T09:53:00 [facility])Gynecology Post Prog NoteREPORT#:[id number] REPORT STATUS: SignedDATE:12/19/18 TIME: 09 PATIENT: STACY THOMPSON UNIT #: [id number]#: [id number] [facility] [birth year] AGE: 28 SEX: F ATTEND: Arpan Min [facility] AUTHOR: Arpan Min MD * ALL edits or amendments must be made on the electronic/computer document * GeneralPost-op: day 2Status post:PRETTY+BSOENTEROLYSIS ADHESIOLYSISCOLON RESECTION ANSTOMOSISAntibiotics: day 7 SubjectivePatient reports:Yes: pain controlled. No: flatus/bowel movement, tolerating diet (gas pains). Objective Physical ExamVS/I OLast Documented: Result Date Time Pulse Ox 98 12/19 644 B/P 118/62 11/10 0645 B/P Mean 84 12/19 644 Pulse 80 12/19 644 Resp 23 12/19 644 Temp 98.3 12/19 0400 O2 Delivery Nasal cannula 12/17 2049 O2 Flow Rate 2.782707 12/17 2049 24 hour I O ending at 0700: 12/19 0700 12/18 1900 Intake Total 1840.00 2075.00 Output Total 1100 810 Balance 740.00 1265.00 Intake, IV 1600.00 2075.00 Intake, Oral 240 Output, 15 Drainage Output, Urine 1100 795 Patient Weight Weight (lb): 259Weight (oz): 15.86Weight (kg): 117.930 General appearance: alert, awake, oriented (was walking earlier)Wound/incision: Location:midline umbilical dry and cleanabdomen soft and not distended Site condition: dressing clean dry, dressing intactNeck: non-tenderCardiovascular: normal heart soundsRespiratory: aerating well, clear to auscultation, symmetric expansion, no distressAbdomen: non-tender, soft, no CVA tenderness, no distentionExtremities: moves allSkin: dry, intact, normal color Current MedicationsMedications:Active Meds + DC'd Last 24 HrsMagnesium Oxide 400 MG TID PO (UNV) Dextran [...] 500 MG Q24H IV Sodium Chloride 100 MLDiatrizoate Meglum/Diatrizoate Sod 40 ML ONCE PRN PO Clindamycin Phosphate 50 ML Q8H IV Gentamicin Sulfate 400 MG Q24H IV Sodium Chloride 100 MLLactated Ringer's 1,000 ML ASDIR IV Magnesium Hydroxide 30 ML Q8H PRN PRN PO ResultsFindings/Data:Laboratory Tests 12/19 12/19 12/19 12/18 12/18 0833 [...] (Auto) (14.3 - 34.3 %) 14.0 L Morehouse % (Auto) (5.1 - 10.4 %) 8.3 Eos % (Auto) (0.1 - 3.0 %) 1.1 Baso % (Auto) (0.1 - 1.0 %) 0.4 Neut # (Auto) (K/mm3) 11.5 Lymph # (Auto) (K/mm3) 2.1 Morehouse # (Auto) (K/mm3) 1.3 Eos # (Auto) (K/mm3) 0.16 Baso # (Auto) (K/mm3) 0.1 Immature Plt Fraction (0.0 - 10.8 %) 0.0 Results: no new labs Treatment Prophylaxis Treatment ProphylaxisOther:Will start on Magnesium oxide 499 tid to stimulated bowel help to pass gas and allso for a bm. Gastroparesis due to her diabetes, Start on ckear liquids and continue to ambulateLovenox for DVT preventionTriple antibiotics Daptomycin, Cleocin and Gentamycin with slow resolution of her elevated WBCOn insuline scalePerhaps tomorrow transfered to the Med Surg floor at 1000 RPT #:[id number] OF REPORT PRProgress [id number]:53:00F.[id number] VAvailable for patient wrzsLXPUOGVIYLUSQT6935-12-17A37:01:26 [facility] 2018-12-18 14:18:00 [id number]+yPhZfN hQW pPJdbxHJkXWDNtaBiI5kEQn3Ff8gsU45WBsZKJvV705 10-20-08T14:18:00 [facility] ([facility])Critical Care Progress NoteREPORT#:[id number] REPORT STATUS: SignedDATE:12/18/18 TIME: 1418 PATIENT: STACY THOMPSON UNIT #: [id number]#: [id number] ROOM/BED: [facility]-ADOB: [birth year] AGE: 28 SEX: F ATTEND: Arpan Min AUTHOR: Kristofer Ellison MD * ALL edits or amendments must be made on the electronic/computer document * SubjectiveComments:Found to have hypomagnesemia with morning labs. No other events less nauseated. About midday today had falling off of urine output around 25 cc an hour while less than half milliliters per kilogram. but when check had 100cc for prior 2 hours overall she feels better, less nausea but no flatus or bmpain is miniaml increase w walkingno sob or cpstill mild sore throat Objective GeneralVS/I OLast Documented: Result Date Time Pulse Ox 99 12/18 1200 B/P 99/53 12/18 1200 B/P Mean 71.0 12/18 1200 Temp 98.0 12/19 1199 Pulse 87 12/18 1200 Resp 18 12/19 1199 O2 Delivery Nasal cannula 12/17 2049 O2 Flow Rate 2.729454 12/17 2049 24 hour I O ending at 0700: 12/18 0700 12/17 1900 Intake Total 2490.00 4600.00 Output Total 955 2625 Balance 1535.00 1975.00 Intake, Blood 750 Product Intake, IV 2400.00 3850.00 Intake, Oral 90 Output, 5 Drainage Output, Emesis Output, 2000 Estimated Blood Loss Output, Urine 950 625 Medications:Active Meds + DC'd Last 24 HrsEnoxaparin Sodium 40 MG Q12H SUBQ (DC) Dextran 2 ML ASDIR EACH EYE (CKD) Sodium Chloride 500 ML ONCE ONE IV (DC) Enoxaparin Sodium 40 MG DAILY SUBQ (DC) Undefined Medication 100 ML ONCE ONE IV Acetaminophen 1,000 MG Q8H PRN PRN IV Dextrose/Lactated Ringer's 1,000 ML ASDIR IV (DC) Acetaminophen 1,000 MG Q6H PRN PRN IV [...] 500 MG Q24H IV Sodium Chloride 100 MLDiatrizoate Meglum/Diatrizoate Sod 40 ML ONCE PRN PO Clindamycin Phosphate 50 ML Q8H IV Gentamicin Sulfate 400 MG Q24H IV Sodium Chloride 100 MLLactated Ringer's 1,000 ML ASDIR IV Magnesium Hydroxide 30 ML Q8H PRN PRN PO Lactated Ringer's 1,000 ML ASDIR IV (DC) Post-op: day 1 Physical ExamGeneral appearance: obese, alert, awakeHead/Eyes: atraumatic, normocephalic, PERRLENT: moist mucosal membranesNeck: full range of motion, non-tender, normal thyroid, short thickCardiovascular: tachycardia, normal heart sounds, normal S1 S2, no murmur, no rubRespiratory/Chest: aerating well, clear to auscultation, symmetric expansionAbdomen: abnormal bowel sounds (hypoactive), tenderness, soft, incsion cdiExtremities: moves all, normal capillary refill, normal temperatureNeuro/INSURANCE AUDITOR: alert, oriented X 3, CNII-XII intactSkin: abnormal color, abnormal temperature, abscess ResultsFindings/Data:Laboratory Tests 12/18/18 0502:[Embedded Image Not Available] 12/17/18 2215:[Embedded Image Not Available] 12/17/18 1715:[Embedded Image Not Available]Laboratory Tests 12/18 12/18 12/18 12/17 12/17 1224 0502 0010 2215 1715Chemistry Sodium (135 - 145 mEq/L) 137 137 [...] 20 Total Alk Phosphatase (46 - 116 69units/L) Total Protein (6.3 - 8.2 gm/dL) 5.7 [...] (Auto) (14.3 - 34.3 %) 12.1 L Morehouse % (Auto) (5.1 - 10.4 %) 10.3 Eos % (Auto) (0.1 - 3.0 %) 0.0 L Baso % (Auto) (0.1 - 1.0 %) 0.3 Neut # (Auto) (K/mm3) 12.7 Lymph # (Auto) (K/mm3) 2.0 Morehouse # (Auto) (K/mm3) 1.7 Eos # (Auto) [...] 0.0 0.0 Plt Morphology Comment (NORMAL) NORMAL Microbiology:12/17 1500 NASAL: MRSA Screen - RECD102/16 0315 URINE: Urine Culture - RES GRAM NEGATIVE JOSEP Diagnosis, Assessment PlanHospital course to date:AssessmentTubo-ovarian abscess with subsequent adhesions and postinflammatory changes etc.s/p hysterectomy, salpingo-oophorectomy, lysis of adhesions, bowel resectionDiabetes mellitus w with hyperglycemiaMorbid obesity with BMI of 46post op nauseaDVT risk Recommendations and planContinue antibioticsFollow urine cultures first ID and sensitivityIV fluid bolus increase IV fluids for yellow urine output check for mechanical obstruction--donechloraseptic spraydc toradol since low uopGlucose control-Per endocrine DVT prophylaxis w lovenox Analgesia, diet and activity per surgery//ENGINEERING SURVEYOR service at 1512 RPT #:[id number] OF REPORT PRProgress Qmxn2278-02-46Y28:18:00F.[id number] VAvailable for patient dwdrYJCBPHLVYFPZMO2604-16-98R39:13:29 [facility] 2018-12-18 07:59:00 LPlyamztrbi92403375eA75tLJ5KtS7BX4O3KhYY LTw 7pMv07zs0/A/X8pbmZbF92St6XcfZti9BA3jCTQV344 10-20-0807:59:00 [facility] ([facility])Gynecology Post Prog NoteREPORT#:[id number] REPORT STATUS: SignedDATE:12/18/18 TIME: 758 PATIENT: STACY THOMPSON UNIT #: [id number]#: [id number] ROOM[facility]BED: [facility]-ADOB: [birth year] AGE: 28 SEX: F ATTEND: Arpan Min MDA AUTHOR: Arpan Min MD * ALL edits or amendments must be made on the electronic/computer document * GeneralORM Surgeries: Surgery Date and Time: 12/17/2018 0800 Primary Procedure: HYSTERECTOMY ABDOMINAL Secondary Procedures: LYSIS OF ADHESIONS PROCTOSCOPY SIGMOID RESECTION COLONOSCOPY Post-op: day 1Status post:PRETTY+BSOENTEROLYSIS ADHESIOLYSISCOLON RESECTION ANSTOMOSISAntibiotics: day 3 (dAPTO, CLEOCIN GENTAMYCIN) SubjectivePatient reports:Yes: ambulating, pain controlled (ICE CHIPS; NO FLATUS). No: complaints, abdominal pain, chills, fever, flatus/bowel movement, headache, nausea. Comments:PATIENT HAPPY WITH RESULTS AND PROCEDURES PERFORRMED; HER CONCERN WAS IF CONSTIPATION, OBSTINATION WILL CONTINUE. THE SURGICAL FINDINGS OF COLO-RECTALSURGERY TEAM OF DR KIM AND ASSOCIATE WERE OF FOLDED LOW SIGMOID WITH MINIMAL LUMEN AND ALMOST TO HAVE BOWEL OBSTRUCTION.WE HOPE HER BOWEL MOVEMENTS TO BE NORMAL. HER PAIN IS LESS FIRST DAY POST OP THAN PREOP. ANXIOUS TO GET UP AND AMBULATE; LAST NIGHT WAS ABLE TO DO IT [facility] TO CONNECT MALECOT TO A DRAIN; WILL ASK SURGERY NURSE TO HELP US Review of SystemsConstitutional:Denies: chills, fatigue, fever, generalized weakness, lethargy, malaise. Objective Physical ExamVS/I OLast Documented: Result Date Time Pulse Ox 97 12/18 599 B/P 113/55 12/18 599 B/P Mean 79 12/18 599 Pulse 92 12/18 0500 Resp 20 12/18 599 Temp 97.8 12/18 0400 O2 Delivery Nasal cannula 12/17 2049 O2 Flow Rate 2.490240 12/17 2049 24 hour I O ending at 0700: 12/18 0700 12/17 1900 Intake Total 2490.00 4600.00 Output Total 955 2625 Balance 1535.00 1975.00 Intake, Blood 750 Product Intake, IV 2400.00 3850.00 Intake, Oral 90 Output, 5 Drainage Output, Emesis Output, 2000 Estimated Blood Loss Output, Urine 950 625 Patient Weight Weight (lb): 259Weight (oz): 15.86Weight (kg): 117.930 General appearance: alertWound/incision: Location:midline umbilical dry and cleanabdomen soft and not distended Site condition: dressing clean dry, dressing intactHEENT: anicteric, moist mucosal membranes, normal pharynx, pupils reactive to light, sclera clearNeck: non-tenderBreast: symmetrical, no dischargeCardiovascular: normal heart soundsRespiratory: aerating well, clear to auscultation, symmetric expansion, no distressAbdomen: non-tender, soft, no CVA tenderness, no distentionExtremities: moves allSkin: dry, intact, normal color Current MedicationsMedications:Active Meds + DC'd Last 24 HrsEnoxaparin Sodium 40 MG Q12H SUBQ (DC) Enoxaparin Sodium 40 MG DAILY SUBQ (DC) Undefined Medication 100 ML ONCE ONE IV Acetaminophen 1,000 MG Q8H PRN PRN IV Dextrose/Lactated Ringer's 1,000 ML ASDIR IV (DC) Acetaminophen 1,000 MG Q6H PRN PRN IV [...] PO Dexamethasone Sodium Phosphate 0 .STK-MED ONE .ROUTE (DC) Glycopyrrolate 0 .STK-MED ONE .ROUTE (DC) Neostigmine Cullen 0 .STK-MED ONE .ROUTE (DC) Ondansetron HCl 0 .STK-MED ONE .ROUTE (DC) Esmolol HCl 0 .STK-MED ONE .ROUTE (DC) Hydromorphone HCl 0 .STK-MED ONE .ROUTE (DC) Rocuronium Cullen 5 ML .STK-MED ONE INJ (DC) Fentanyl Citrate 0 .STK-MED ONE .ROUTE (DC) Hydromorphone HCl 0 .STK-MED ONE .ROUTE (DC) Fentanyl Citrate 0 .STK-MED ONE .ROUTE (DC) Hydromorphone HCl 0.5 MG PACU Q5MIN PRN PRN IV (DC) Meperidine HCl 12.5 MG PACU ASDIR PRN PRN IV (DC) Morphine Sulfate 4 MG PACU Q15MIN PRN PRN IV (DC) Ondansetron HCl 4 MG PACU ONCE PRN IV (DC) Promethazine HCl 12.5 MG PACU ONCE PRN IM (DC) Glucagon 1 MG ASDIR IM (CKD) Insulin Glargine 50 UNIT DAILY@0700 SUBQ Insulin Human Lispro S/SCALE IF B-199 = 10 UNITS 200-250 = 15 UNITS 251-300 = 20 UNITS 301 OR >301 25 UNITS ASDIR SUBQ Daptomycin 500 MG Q24H IV Sodium Chloride 100 MLDiatrizoate Meglum/Diatrizoate Sod 40 ML ONCE PRN PO Clindamycin Phosphate 50 ML Q8H IV Gentamicin Sulfate 400 MG Q24H IV Sodium Chloride 100 MLLactated Ringer's 1,000 ML ASDIR IV Acetaminophen 650 MG Q6H PRN PRN PO (DC) Magnesium Hydroxide 30 ML Q8H PRN PRN PO Lactated Ringer's 1,000 ML ASDIR IV (DC) ResultsFindings/Data:Laboratory Tests 12/18 0010 2215 1715 1448 Chemistry Sodium (135 [...] 2.1 L Laboratory Tests 12/18 12/17 0502 8665 Hematology WBC (6.6 - 12.1 K/mm3) 16.6 [...] (Auto) (14.3 - 34.3 %) 12.1 L Morehouse % (Auto) (5.1 - 10.4 %) 10.3 Eos % (Auto) (0.1 - 3.0 %) 0.0 L Baso % (Auto) (0.1 - 1.0 %) 0.3 Neut # (Auto) (K/mm3) 12.7 Lymph # (Auto) (K/mm3) 2.0 Morehouse # (Auto) (K/mm3) 1.7 Eos # (Auto) [...] Results: no new labs Treatment Prophylaxis Treatment ProphylaxisFoley status: day 1Other:ASK INHALATION THERAPHY FOR IPPB AND PREVENT ATELECTASISCONTINUE ANTIBIOTICS = DAPTOMYCIN, CLEOCIN GENTAMYCINCLEAR LIQUIDS TODAYUP AND AMBULATE WITH HELPCONNECT MELICOT TO DRAINAGE AND SUCTIONMAY ONDINA JIMENEZ WHEN OK WITH DR ELLISON. at 0812 [facility] #:[id number] OF REPORT PRProgress Jhxf8922-64-57A62:59:00F.[id number] VAvailable for patient guwmYXEOQPZOSYNTFW5674-42-34O85:13:13 [facility] 2018-12-18 00:02:00 MXwzlpqlqhu63431507l/uJsSaR27kJWNNpQ561d 8fi +y0rNIx+jwNjwL7lkdby3feHLnjCa8CEhdfJa+uN201 10-20-08T00:02:639880-2093 [facility] [address] [place], [place] [address] PATIENT NAME: STACY THOMPSON ADMIT DATE: 12/15/18ACCOUNT NO: [id number] ROOM NO: F.IC3 AGE: 28 SEX: F ADMITTING PHYSICIAN: Arpan Min MD ATTENDING PHYSICIAN: Arpan Min MD OPERATION DATE: 12/17/2018 PREOPERATIVE DIAGNOSES: Pelvic inflammatory disease, tubo-ovarian abscess,recurrent, failure to respond to interventional radiology drainage, at least x2,status post appendectomy and resulted in a normal appendix but an evidence of alarge tubo-ovarian abscess of the right side, described to be from the pelvisall the way up to the liver. POSTOPERATIVE DIAGNOSES:SAME + SIGMOID COLON PARTIAL OBSTRUCTION; ENTEROLYSIS SIGMOID RESECTION + ANASTOMOSIS; TAHBSO; MELICOT DRAIN PROCEDURES: ABOVE PRIMARY SURGEON:ARPAN MIN MD CUSTOMER COMPLAINT SERVICE SUPERVISOR:TARUN CURIEL CSA; he was in front of me; help to open incision; guide suction and hemostasis; open abdominal cavity; difficult dissection; restore anatomy; procede with hysterectomy, right salpingoophorectomy and left SO and recognized the sigmoid almost obstruction; called Dr River Herring and stay with me after colo rectal surgery done and help me to closed incion by layers. ANESTHESIA: General On a CT scan with contrast, it was evident of a large right side tubo-ovarianabscess as well as the abscess of a smaller size in the left side. The rightside was at least 8 cm in diameter. The left side was 5 cm in diameter, but itwas evident on both right and left is that with the contrast, there was bowelsurrounding the structure of the tubo-ovarian abscess, suspecting very cohesiveand vascular adhesions. For this reason, had asked me to ask in consultationwith general surgery and warn the patient of the possibility of colostomy aswell as other bowel surgery and in the informed consent, also, the patient hasbeen aware very well of the hysterectomy will not be making her possible to havechildren. She will have no menstrual periods and the bilateralsalpingo-oophorectomy, will eventually require estrogen replacement therapy andit can be for at least 20 years or more, if not changes of severe osteoporosiscan take place, as well as many of the consequences. The patient requested thesurgery and was aware of the need of colostomy, a bowel prep, having hadantibiotic triple therapy of daptomycin, Cleocin and gentamicin as well as had amechanical prep with the use of the laxative MIRALAX at the dose of 325 mg and if needed enemas until clean. The pelvic exam was significant that despite of the morbid obesity of this patient, there was transverse incisions of her previous sections and the uterus that was enlarged and fixed and there was also fullness and thickening in the right and in the left adnexa. PATIENT NAME: STACY THOMPSON The growth is worse in the right compared to the left. The initial plan was to do a laparoscopy and with the laparoscopic evaluation and/or the need of lysis of adhesions, enterolysis, to decide between robotic hysterectomy or exploratory laparotomy, hysterectomy, bilateral salpingo-oophorectomy, and indicatedprocedures. The initial placement of a 5-mm trocar was midclavicular subcostalleft upper quadrant with an Optiview, the long size, we then had thepneumoperitoneum, been initiated with a total of 3.5 liters of carbon dioxideand locate omental adhesions subumbilical. An intraumbilical 8-mm incision andinfiltration with Marcaine, placed the trocar in this site, as well as lateralright and left approximately 10 cm at the same level, paraumbilical for the next2 trocars of 8 mm each. With this, the laparoscope was exchanged into the leftupper quadrant, intraumbilical, left lower quadrant, right upper quadrant, butin view of the extensive adhesive disease, we requested Dr. Julita jimenezform the enterolysis. The lysis of omental adhesions went without anyproblem and the lysis of the adhesions that were more cohesive, vascular, andworse on the adnexa right and left, having not only the small bowel, but thecolon involved, I had made the decision to then perform a midline infraumbilicalincision initially to be probably increased to be supraumbilical for thecompletion of her surgery and the planned surgery had changed to be totalabdominal hysterectomy, bilateral salpingo-oophorectomy, enterolysis andindicated procedures. The incision was performed and it was necessary to dofirst the hysterectomy, isolating the round ligament, dissecting the broadligament, anterior bladder peritoneum and then finally the corpus of the uterusremoved to the cervix and in place, leaving the cuff open for the Malecot drain. In the right side, sidewall and lysis of adhesions was accomplished to isolatethe infundibulopelvic ligament to do retroperitoneal dissection, localization ofthe ureter and the removal of the right adnexa. In the left adnexa, it wasinvolvement of the sigmoid colon, small bowel. The size was less in the leftthan compared to the right, but perhaps more cohesive and also insulation of theinfundibulopelvic ligament was needed tracing the ureter and complete the leftsalpingo-oophorectomy, but founding that there was a piece of probablydescending bowel colon sigmoid that was essentially ended into a blind pouch andit was ended abruptly and unable to see the rectosigmoid. Julita Herring MD,returned to the room to do the evaluation. She also was with the same questionand a colonoscopy was performed. Still not able to see the site by placing airand having the pelvic cavity full of liquid. The presence of air then indicatedthat there was incidental cut of the lower end of the sigmoid colon. For thisreason, we called for colorectal surgery and Dr. Lopez kindly attended the call.One of his partners was present, performed the evaluation, and initiated therequirement of surgical equipment and the two together Dr. Lopez and his partnerperformed the sigmoid colon resection of about 20 cm, had found out to be foldedand probably with a question of how this lady was able to have bowel movementsin a more prospective way after the surgery. She confirmed to have prettysevere constipation. It was possible to do end terminal anastomosis. A Malecotdrain that was in the vagina was left also undisturbed and we proceeded with theclosure of the abdomen. The patient had a blood loss of 700 mL to this point.The urinary output was of 250 mL. The operating time was probably in theneighborhood of 5 to 5-1/2 hours and a diabetic, multiple admissions, multipletreatments with different antibiotics despite that the patient was very stable,first needed 2 units of blood transfusion and for her recovery afterconsultation with the general accountant, Dr. Ellison, and ICU admission. PROCEDURE IN DETAIL: The patient was placed in dorsal lithotomy position. Thearea was prepped and draped. The cervix grasped with a tenaculum. Progressive PATIENT NAME: STACY THOMPSON dilatation was performed up to a Hegar size 18. The uterus was sounded toapproximately 12 cm. The enlargement of the uterine cavity was probably moredue to the cervical length. The PROMISE was selected as the uterine manipulatorwith an orange catheter of 11 cm and a cup of 3.0 cm in diameter that was placedwithout any difficulty together with the Jimeenz catheter. The attention then was passed to the abdomen where in the left upper quadrantsubcostal midclavicular line is initially attempted to place the Veress needleand not successful. The pneumoperitoneum was then elected to go through thelarger size Optiview 5-mm trocar, which was placed on the patient and initiatedthe pneumoperitoneum and found the suspected omental adhesions and boweladhesions. The omental adhesions were possible to be taken via laparoscopy byDr. Julita Herring and she will dictate in regard of this procedure and withthe omental adhesions released into the adnexa and extensive bowel cohesive andinfiltrated and very dense, but despite of resection by Dr. Herring, was notcomplete and with discussion of the case, it was decided to perform anexploratory laparotomy, midline incision, infraumbilical initially to considerthe extension if needed. The incision was carried down the skin, subcutaneoustissue, and fascia, separation of the rectal muscles in the midline andperitoneum entered in a length of approximately 12 cm and the large retractorAlright was selected with 2 laps in deep Trendelenburg position to arrive to thepelvis, in which a very large abscess and bowel cohesive adhesions were presentin the right side, as well on the left, and on the left it was appreciated thatit was also an involvement of the sigmoid colon in the front and anterior. Thedecision to do first the hysterectomy was to do this division of the roundligaments, continue to take utero-ovarian ligaments, broad ligaments, divisionand dissection of the broad ligament and endopelvic fascia and bladderperitoneum and cardinal ligaments, uterosacral ligaments, then with Heaneyclamps, cut and transfixion stitches of Vicryl. Hemostasis was secured and withessentially minimal blood loss. The cervix, which was elongated, as per her ageand gravity, parity and previous sections, but ending at the junctionof the cervix with the vagina, anteriorly was entered and circumcision of thecervix around the vagina was completed to do then the total abdominalhysterectomy and submit the specimen for doing a pathological permanent exam.Stitches were applied 0 PDS on the corners of the right and left side and a large Andorran 25 equivalent to 2.5 cm in diameter Malecot drain was placed through the vagina and gloves were exchanged. Now, the dissection was done in the right adnexa. The enterolysis completed under the Metzenbaum scissors andretroperitoneal dissection and advancing to in a retroperitoneal fashion tolocate the ureter, the infundibulopelvic ligament, ligated the pedicles andremoved the large tubo-ovarian abscess in the right. In the left side, it wasthe same technique and the same way to do the dissection of the bowel, colon,infundibulopelvic ligament, retroperitoneum, ureters dissected and palpated andfound the 5-cm tubo-ovarian abscess, removed and asked for Dr. Julita Montero return to do the evaluation of the enterolysis, adhesiolysis, and lysis ofbowel adhesions. She will dictate a note into this regard, but end result wasthat the small bowel was explored completely. The large bowel was also exploredand found the ending of the sigmoid colon into a pouch that was abrupt, and tothink that cut into the rectosigmoid, ____ need to instead call the rectalsurgeon for evaluation and treatment. She had performed the dissection. Aide performed a colonoscopy and she had done the test in which air was presentand the fellow and partner of Dr. Lopez and Dr. Lopez attended to do the removalof the sigmoid colon, which was explained to us as folded and almost completelyobstructed, which might have produced the patient's severe constipation and tokjj-od-axt anastomosis was then performed and he will dictate in regard of this PATIENT NAME: STCAY THOMPSON procedure. When all of these were completed, he had called me and reported theprocedure and asked me to do the closure of the abdomen, which was performedwith Vicryl in each angle and tying each one in the middle and then the fasciaclosed with a large XP needle, a nylon from the lower segment to the upperincision and brought together the two in the midline and subcutaneous tissueclosed with Vicryl and PDS and Enseal mohan absorbable to close the incisionand a binder will be placed. It was felt that the blood loss was replaced with2 units of blood and I called the general accountant, Dr. Ellison to have the approvalfor ICU admission. It was done. The urinary output was 250 mL of urine,somewhat concentrated, but clear urine and with vital signs stable. The patientwill be going to ICU for her recovery phase of the anesthesia. The instrumentcount, sponge count, cottonoid count, all were fine and the time for surgicalprocedures evaluated, was called. Dictated By: Arpan Min MD WT: OP:CHASIDY/LINDA/NTSDD: 12/18/2018 00:02:13DT: 12/18/2018 02:30:54Conf#: [id number]/DID#: [id number] Authenticated and Edited by Arpan Min MD On 12/18/18 8:25:17 AM at 0828 PATIENT NAME: STACY THOMPSON [id number]:30:00F.[id number] AVAvailable for patient bcerBDLVFPCRAUAFAQ4881-64-93V38:28:25 [facility] 2018-12-17 14:37:00 VVtdywemwya34869616nZ6UfY2uCNYEEghjqF/Mv 4l1 V+YxetMhJrpaBs2BV6ibW3eJXAwOyA3sWvxESRAz896 10-21-07T14:37:00 [facility] ([facility])Full Op NoteREPORT#:[id number] REPORT STATUS: SignedDATE:12/17/18 TIME: 1437 PATIENT: STACY THOMPSON UNIT #: [id number]#: [id number] [address] [birth year] AGE: 28 SEX: F ATTEND: Arpan Min MDADM AUTHOR: Arpan Min MD * ALL edits or amendments must be made on the electronic/computer document * Operative ReportORM Surgeries: Surgery Date and Time: 12/17/2018 0800 Proposed Primary Procedure: ROBOTIC HYSTERECTOMY XI,MARISOL,TOA([id number]) Proposed Secondary Procedures: CYSTOSCOPY WITH PROCEDURE ENTEROLYSIS OF ADHESIONS Start date: 12/17/18Start time: 0035Pre-procedure diagnosis:TOA PID RECURRENT TIMES FIVETWICE INTERVENTIONAL RADIOLOGY DRAINDIABETES MELLITUSMORBID OBESITYPost-procedure diagnosis:SAMEEXTENSIVE BOWEL ADHESIONS AND COLON + DIVERTICULOSIS DIVERTICULITISPOST ANASTOMOSIS AND RESECTION OF SIGMOIDTAH BSOPLACEMENT OF MALLICOT DRAINProcedures performed:OPERATIVE LAPAROSCOPY LUQ + ENTEROLYSISLAPAROTOMYTAHBSORESECTION OF SIGMOID COLON + ANASTOMOSIS BLOOD TRANSFUSION 700 CCTechnique/Procedure: ABOVEPrimary Surgeon: KINDRA Rodriguez-surgeon:DR HERRING GENERAL SURGERYDR [facility] COLON RECTAL SURGEONAssistant(s): TARUN CURIEL MD FOREIGN BANKNOTE TELLER TRADER HELP ON LAPAROTMY; ENTEROLYSIS AND PRETTY BSO AND DIAGNOSES OF COLON DIVERTICULITIS AND ADHESIVE PROCESS AND CLOSURE OF LARGE MIDLINE INCISIONAnesthesiologist:DR Rinconthesia: general anesthesiaIndications:PID AND TOA FIVE ADMISSION TWICE INTERVENTIONAL RADIOLOGY DRAINADHESIONSSEVEREPELVIC PAINOperative findings:EXTENSIVE ADHESIONS AND INFLAMATORY CHANGES OF BOWEL, SIGMOID, DIVERTICULOSIS + DIVERTICULITIS AND PARTIAL OBSTRUCTION WITH END TO END ANASTOMOSIS + PRETTY BDO ANDMALLICOT DRAIN IN THE VAGINAComplications: noneEstimated blood loss in ml's: 700Blood products: RBCSpecimens removed/altered: none (TAHBSO SIGMOID COLON)Cultures sent: NoDrain(s)/tube(s): MALLICOT DRAIN IN VAGINAL CUFFImplant(s): noneFluids:2000 CRYSTALLOIDSUrine output:300 CLEAR URINEApproach: openDisposition: ICU, stableRecommendations:ICUCONSULT WITH NASSERENDOCRINE CONSULT DR Deshaun MCKEONINFECTIOUS DISEASE Lucia ALVARADO COLO RECTAL SURGEONCounts: Sponge count: correct Instrument count: correct Needle count: correct Cottonoid count: correctWound class: clean Debridement ProcedureDebridement procedure: Time out completed: yes Wound location: abdomen Wound description: drainage (MALICOT DRAIN IN VAGINA) Free Text Op NotesFree Text Op Notes:CONTACTED DR ELLISON TO ADMIT TO ICUDR Deshaun MCKEON ENDOCRNEDR JESÚS HAMMIL ID AND DAPTOMYCIN USE at 1452 RPT #:[id number] OF REPORT OPOperative mvosnn1145-11-16J93:37:00F.[id number] 4AVAvailable for patient wbqjKCKUIBNENUJWCO4990-94-83T09:53:21 [facility] 2018-12-17 14:32:00 CQsmnwyqiai31498981YsFZitLpopnS0z76M5bF7 BDY 1dcTY/8/OBECUPgy7Fq0r+GF4lDC0K2pVi3PrBC+201 10-21-074:32:00 [facility] ([facility])Critical Care Progress NoteREPORT#:[id number] REPORT STATUS: SignedDATE:12/17/18 TIME: 1432 PATIENT: STACY THOMPSON UNIT #: [id number]#: [id number] [facility] AGE: 28 SEX: F ATTEND: Arpan Min [facility] AUTHOR: Kristofer Ellison MD * ALL edits or amendments must be made on the electronic/computer document * SubjectiveHPI: The patient has been seen and examined history, physical, chart and images have been reviewed. Case has been discussed with Dr. Min The patient is a 28-year-old woman G2, P2 with morbid obesity, diabetes mellituswho [facility]. Pain began about 3 days prior to presentation. A CT was done there showing bilateral ovarian abscesses.She had a laparoscopic hysterectomy laparotomy lysis of adhesions and proctoscopy and colon resestion today. she required 2 units of packed red bloodcells in the operating room. She is currently in icu, co of nausea, having dry heaves, sore throat and abdominal pain. Past medical history: Morbid obesity, pelvic inflammatory disease including Omar-Ludwin Pedro disease, diabetes mellitus Past surgical history: x2, laparoscopic appendectomy this April, interventional radiology drainage of tubo-ovarian abscess and September 2018 Current medications reviewed Drug allergies: Penicillin, Zosyn Social history: She denies tobacco alcohol or drug use Family history: Diabetes and cancer Objective GeneralVS/I OLast Documented: Result Date Time Pulse Ox 100 [...] Number Voids 2 3 Output, Urine 400 Medications:Active Meds + DC'd Last 24 HrsEnoxaparin Sodium 40 MG DAILY SUBQ Dextrose/Lactated Ringer's 1,000 ML ASDIR IV Acetaminophen 1,000 MG Q8H PO Hydromorphone HCl 1 MG Q3H PRN PRN IV Ibuprofen 800 MG Q8H PRN PRN PO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
[2023-03-15 18:49] LABS: Absolute Lymphocytes (CBC) 2.9 K/uL (0.7-4.9); Hematocrit 43.2 % (36.0-45.0); Lymphocytes % 22.7 % (15.3-44.8); MCV 87.5 fL (80-100); MPV 9.7 fL (7.6-11.3); Platelets 287 thou/uL (152-406); RBC Red Blood Cell Count 4.93 M/uL (3.86-4.86)
[2023-03-15 19:11] LABS: Albumin 3.9 g/dL (3.4-5.0); Bilirubin Total 0.9 mg/dL (0.2-1.0); Potassium 3.6 mEq/L (3.5-5.1); Protein, Total 8.5 g/dL (6.4-8.2)
[2023-03-15 20:20] LABS: Specific Gravity 1.026 (1.005-1.030)
[2023-03-15 20:26] LABS: Specific Gravity 1.026 (1.005-1.030); Urine Bacteria None Seen /HPF (<20); Urine Bilirubin NEGATIVE (Negative); Urine Blood Negative (Negative); Urine Clarity Clear (Clear); Urine Color Light-Yellow (Yellow); Urine Glucose NEGATIVE (Negative); Urine Mucus 1+ /HPF (None Seen); Urine Protein TRACE (Negative); Urine RBC None Seen /HPF (None Seen); Urine Urobilinogen Normal (Normal); Urine pH 6.5 (5.0-7.0)
--- NOTE | 2023-03-15 20:53 | RAD REPORT ---
EXAM DESCRIPTION: CT - Abdomen Pelvis W Contrast - 03/15/2023 8:33 pm CLINICAL HISTORY: Abdominal pain COMPARISON: 2021 TECHNIQUE: Computed axial tomography of the abdomen pelvis was obtained. 100 cc Isovue-300 was admin istered intravenously. Oral contrast was not requested which limits evaluation of bowel and appendix All CT scans are performed using dose optimization technique as appropriate and may include automated exposure control or mA/KV adjustment according to patient size. FINDINGS: The liver, spleen, pancreas, adrenal and kidneys appear unremarkable. There is no evidence of diverticulitis. Small to moderate ventral hernia contains fat. This is above the level of umbilicus. Hysterectomy. No adnexal mass Fluid within nondilated small bowel A sigmoidectomy IMPRESSION: Small to moderate ventral hernia Fluid within nondilated small bowel may indicate an enteritis
--- NOTE | 2023-03-15 21:08 | EDPHYS ---
Physician Documentation [facility] Name: Stacy Islas Age: 32 yrs Sex: Female : 1990 Arrival Date: 03/15/2023 Time: 17:23 Bed 12 Private MD: ED Physician Sonia Kendall HPI: 03/15 18:21 This 32 yrs old Female presents to ER via Ambulatory with complaints of sb4 Abdominal Pain. 18:21 The patient presents with abdominal pain that is diffuse. Onset: The symptoms/episode sb4 began/occurred yesterday. The symptoms do not radiate. Associated signs and symptoms: Pertinent positives: nausea, Pertinent negatives: blood in stools, diarrhea. The symptoms are described as vague. Modifying factors: The symptoms are alleviated by nothing, the symptoms are aggravated by walking. The patient has experienced similar episodes in the past, a few times. The patient has not recently seen a physician. 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 - Social history:: Smoking status: Patient denies any tobacco usage or history of. ROS: 18:21 Constitutional: Negative for fever, chills, and weight loss, sb4 18:21 Abdomen/GI: Positive for abdominal pain, nausea, 18:21 All other systems are negative, Exam: 18:21 Constitutional: This is a well developed, well nourished patient who is awake, alert, sb4 and in no acute distress. Head/Face: Normocephalic, atraumatic. Eyes: Extra-ocular motions intact. Periorbital areas with no swelling, redness, or edema. ENT: Mucous membranes moist. Cardiovascular: Regular rate and rhythm with a normal S1 and S2. Respiratory: Lungs have equal breath sounds bilaterally, clear to auscultation and percussion. No rales, rhonchi or wheezes noted. No increased work of breathing, no retractions or nasal flaring. Skin: Warm, dry with normal turgor. Normal color with no rashes, no lesions, and no evidence of cellulitis. MS/ Extremity: Pulses equal, no cyanosis. Neurovascular intact. Full, normal range of motion. Neuro: Awake and alert, GCS 15, oriented to person, place, time, and situation. Motor strength 5/5 in all extremities. Sensory grossly intact. 18:21 Abdomen/GI: Inspection: obese Bowel sounds: normal, Palpation: abdomen is soft and non-tender, Vital Signs: 18:12 BP 141 / 97; Pulse 88; Resp 16; Temp 98.5(O); Pulse Ox 100% on R/A; Weight 108.41 kg; hb Height 5 ft. 3 in. ; Pain 10/10; 19:07 BP 111 / 67; Pulse 77; Resp 18; Pulse Ox 98% on R/A; Pain 10/10; tl4 19:41 BP 102 / 63; Pulse 74; Resp 18; Pulse Ox 98% on R/A; tl4 21:12 BP 111 / 74; Pulse 76; Resp 16; Pulse Ox 98% on R/A; tl4 18:12 Body Mass Index 42.34 (108.41 kg, 160.02 cm) hb 18:12 Pain Scale: Adult hb 19:07 Pain Scale: Adult tl4 MDM: 17:52 Patient medically screened. sb4 18:21 Differential diagnosis: Cholelithiasis, non-specific abd pain, Peptic Ulcer Disease, sb4 IBS, constipation, gastroparesis. 21:07 Data reviewed: vital signs, nurses notes, lab test result(s), radiologic studies, and sb4 as a result, I will discharge patient. Counseling: I had a detailed discussion with the patient and/or guardian regarding the historical points, exam findings, and any diagnostic results supporting the discharge/admit diagnosis, lab results, radiology results, to return to the emergency department if symptoms worsen or persist or if there are any questions or concerns that arise at home. 03/15 18:20 Order name: CBC with Diff; Complete Time: 18:53 sb4 03/15 18:20 Order name: CMP; Complete Time: 19:13 sb4 03/15 18:20 Order name: Lipase; Complete Time: 19:13 sb4 03/15 18:20 Order name: Test, Urine; Complete Time: 20:24 sb4 03/15 18:20 Order name: Urinalysis w/ reflexes; Complete Time: 20:29 sb4 03/15 18:20 Order name: CT Abd/Pelvis - IV Contrast Only; Complete Time: 20:56 sb4 03/15 18:20 Order name: IV Saline Lock; Complete Time: 18:43 sb4 03/15 18:20 Order name: Labs collected and sent; Complete Time: 18:43 sb4 Administered Medications: 18:59 Drug: NS 0.9% IV 1000 ml IV at 1 bolus Per protocol; 1000 mL bolus Route: IV; Rate: 1 tl4 bolus; Site: right antecubital; Delivery: Primary tubing; 21:34 Follow up: Response: No adverse reaction; IV Status: Completed infusion; IV Intake: tl4 1000ml 18:59 Drug: TORadol - Ketorolac IVP 15 mg IVP once Route: IVP; Site: right antecubital; tl4 21:34 Follow up: Response: Pain is decreased tl4 Disposition Summary: 03/15/23 21:08 Discharge Ordered Notes: Location: Home sb4 Problem: new sb4 Symptoms: have improved sb4 Condition: Stable sb4 Diagnosis - Enteritis sb4 Followup: sb4 - With: Renan Scanlon MD - When: As needed - Reason: Recheck today's complaints, Re-evaluation by your physician Discharge Instructions: - Discharge Summary Sheet sb4 - Viral Gastroenteritis, Adult, [id number] sb4 Forms: - Medication Reconciliation Form sb4 - Thank You Letter sb4 - Antibiotic Education sb4 - Prescription Opioid Use sb4 - Patient Portal Instructions sb4 - Leadership Thank You Letter sb4 Prescriptions: - Diclofenac Sodium 75 mg Oral Tablet Sustained Release - take 1 tablet ORAL route 2 times per day; 30 tablet; Refills: 0, Product sb4 Selection Permitted - dicyclomine 20 mg Oral tablet - take 1 tablet ORAL route 3 times per day; 20 tablet; Refills: 0, Product sb4 Selection Permitted Signatures: Dispatcher MedHorsham ClinicChrissie George RN RN hb Brown, Alix, PA-C PA-C sb4 Logdahl, Tigre tl4
--- NOTE | 2023-03-15 21:08 | ER ---
Nurse's Notes [facility] Name: Stacy Islas Age: 32 yrs Sex: Female : 1990 Arrival Date: 03/15/2023 Time: 17:23 Bed 12 Private MD: Diagnosis: Enteritis Presentation: 03/15 18:10 Chief complaint: Abdominal pain x 2 days. Coronavirus screen: At this time, the client hb does not indicate any symptoms associated with coronavirus-19. Ebola Screen: No symptoms or risks identified at this time. Initial Sepsis Screen: Does the patient meet any 2 criteria? No. Patient's initial sepsis screen is negative. Does the patient have a suspected source of infection? No. Patient's initial sepsis screen is negative. Risk Assessment: Do you want to hurt yourself or someone else? Patient reports no desire to harm self or others. Onset of symptoms was March 14, 2023. 18:10 Method Of Arrival: Ambulatory hb 18:10 Acuity: VENTURA 3 hb Triage Assessment: 19:05 General: Appears in no apparent distress. Behavior is calm, cooperative. Pain: tl4 Complains of pain in abdomen. EENT: No deficits noted. No signs and/or symptoms were reported regarding the EENT system. Neuro: No deficits noted. Cardiovascular: No deficits noted. Respiratory: No deficits noted. GI: Reports upper abdominal pain. : No deficits noted. No signs and/or symptoms were reported regarding the genitourinary system. Derm: No deficits noted. No signs and/or symptoms reported regarding the dermatologic system. 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 - Social history:: Smoking status: Patient denies any tobacco usage or history of. Screenin:08 [facility] ED Fall Risk Assessment (Adult) History of falling in the last 3 months, tl4 including since admission No falls in past 3 months (0 pts) Confusion or Disorientation No (0 pts) Intoxicated or Sedated No (0 pts) Impaired Gait No (0 pts) Mobility Assist Device Used No (0 pt) Altered Elimination No (0 pt) Score/Fall Risk Level 0 - 2 = Low Risk Oriented to surroundings, Maintained a safe environment, Educated pt \T\ family on fall prevention, incl call for assistance when getting out of bed, Assessed \T\ reinforced patient's understanding of fall precautions, Provided non-skid footwear, Hourly rounding (assess needs \T\ fall precautionary measures) done, Used ambulatory aids as needed (educated on \T\ assisted with), Used gait belt as appropriate. Abuse screen: Denies threats or abuse. Denies injuries from another. Nutritional screening: No deficits noted. Tuberculosis screening: No symptoms or risk factors identified. Assessment: 19:07 Reassessment: No changes from previously documented assessment. Patient and/or family tl4 updated on plan of care and expected duration. Pain level reassessed. Patient is alert, oriented x 3, equal unlabored respirations, skin warm/dry/pink. 19:11 GI: Bowel sounds present X 4 quads. Abd is soft Abdomen is tender to palpation in right tl4 upper quadrant, left upper quadrant, right lower quadrant and left lower quadrant. 21:06 Reassessment: No changes from previously documented assessment. Patient and/or family tl4 updated on plan of care and expected duration. Pain level reassessed. Patient is alert, oriented x 3, equal unlabored respirations, skin warm/dry/pink. Vital Signs: 18:12 BP 141 / 97; Pulse 88; Resp 16; Temp 98.5(O); Pulse Ox 100% on R/A; Weight 108.41 kg; hb Height 5 ft. 3 in. ; Pain 10/10; 19:07 BP 111 / 67; Pulse 77; Resp 18; Pulse Ox 98% on R/A; Pain 10/10; tl4 19:41 BP 102 / 63; Pulse 74; Resp 18; Pulse Ox 98% on R/A; tl4 21:12 BP 111 / 74; Pulse 76; Resp 16; Pulse Ox 98% on R/A; tl4 18:12 Body Mass Index 42.34 (108.41 kg, 160.02 cm) hb 18:12 Pain Scale: Adult hb 19:07 Pain Scale: Adult tl4 ED Course: 17:28 Patient arrived in ED. im 17:32 Alix Walters PA-C [facility]. sb4 17:32 Sonia Kendall MD is Attending Physician. sb4 18:11 Triage completed. hb 18:11 Arm band placed on. hb 18:28 Tigre Abadlla is Primary Nurse. tl4 18:43 CBC with Diff Sent. em1 18:43 CMP Sent. em1 18:43 Lipase Sent. em1 18:43 Initial lab(s) drawn, by me, sent to lab. Inserted saline lock: 20 gauge in right em1 antecubital area, using aseptic technique. Blood collected. 18:58 CMP Sent. tl4 18:58 Lipase Sent. tl4 19:08 Patient has correct armband on for positive identification. Placed in gown. Bed in low tl4 position. Call light in reach. Side rails up X 1. Provided Education on: ed process. Client placed on continuous cardiac and pulse oximetry monitoring. NIBP monitoring applied. Door closed. Noise minimized. Lights dimmed. Moved to private room. Warm blanket given. 19:11 No provider procedures requiring assistance completed. tl4 20:12 Urinalysis w/ reflexes Sent. tl4 20:12 Test, Urine Sent. tl4 20:34 CT Abd/Pelvis - IV Contrast Only In Process Unspecified. EDMS 21:08 Renan Scanlon MD is Referral Physician. sb4 21:35 IV discontinued, intact, bleeding controlled, No redness/swelling at site. Pressure tl4 dressing applied. Administered Medications: 18:59 Drug: NS 0.9% IV 1000 ml IV at 1 bolus Per protocol; 1000 mL bolus Route: IV; Rate: 1 tl4 bolus; Site: right antecubital; Delivery: Primary tubing; 21:34 Follow up: Response: No adverse reaction; IV Status: Completed infusion; IV Intake: tl4 1000ml 18:59 Drug: TORadol - Ketorolac IVP 15 mg IVP once Route: IVP; Site: right antecubital; tl4 21:34 Follow up: Response: Pain is decreased tl4 Medication: 19:08 VIS not applicable for this client. tl4 Intake: 21:34 IV: 1000ml; Total: 1000ml. tl4 Outcome: 21:08 Discharge ordered by . sb4 21:35 Discharged to home ambulatory, tl4 21:35 Condition: stable 21:35 Discharge instructions given to patient, Instructed on discharge instructions, follow up and referral plans. medication usage, Demonstrated understanding of instructions, follow-up care, medications, Prescriptions given X 2, 21:37 Patient left the ED. tl4 Signatures: Dispatcher [employer] Jan Ku em1 Chrissie Salcedo, RN RN Alix Gutierrez, PA-C PA-C sb4 Marti Askew Toni tl4
[2023-03-16 02:48] VITALS: TEMP 98.5
[2023-03-16 03:07] VITALS: BP 111/74; O2SAT 98
== END ==
LOC: ER 17:23
DX: K52.9 Noninfective gastroenteritis and colitis, unspecified (principal); E11.9 Type 2 diabetes mellitus without complications; Z79.4 Long term (current) use of insulin; Z88.8 Allergy status to other drugs, medicaments and biological substances
CPT/HCPCS: 36415; 74177; 80053; 81001; 81025; 83690; 85025; J7030; Q9967

== ENCOUNTER 2024-06-21 13:26 | Emergency (ER) | payer OTHER, SELFPAY ==
--- OUTSIDE RECORDS SUMMARY | 2024-06-21 13:39 | XMS REPORT | Continuity of Care Document ---
Author Name Unknown Address [address] [facility] [place] [address] [facility] [place] Address [address] [facility] [place] [address] Care Team Providers Care Technology Training Associate Name Role Phone Mary De La Torre MD Primary Care Physician Ronny Agarwal Attending Clinician Unavailable Marcela KELLEY Attending Clinician Unavailable TAPAN MORROW Attending Clinician Unavailable TAPAN MORROW Attending Clinician Unavailable DORCAS CAMP Attending Clinician Unavailable Mary De La Torre MD Attending Clinician [phone] ANDRAE JESUS Attending Clinician Unavailable CARROLL MONTOYA Attending Clinician Unavailable KATHYA CASH Attending Clinician Unavailable Margi Santos Attending Clinician Unava ilable MARY DE LA TORRE Attending Clinician Unavailabl DESIREE Guillen Attending Clinician Unavailabl deshaun HESTER MD Attending Clinician Unavailab le LAB79 Attending Clinician Unavailable JAYA PASTRANA Attending Clinician Unavailab ELZBIETA Healy Attending Clinician Unavailable NUZHAT BROWN Attending Clinician Unavailable DAWN CAPELLAN Attending Clinician Unavailable GC_GCBZW_Kadiyala_S Attending Clinician Unavaila ble Doctor Unassigned, [place] Attending Clinician U dannyailLYDIA Oakes Attending Clinician Unavailable lEzbieta Gomez MD Attending Clinician [phone] RADHA DRUMMOND Attending Clinician Unavailab RADHA Otero Attending Clinician Unavailab CHANCE Iglesias Attending Clinician Unavailable CHANCE HAMMER Attending Clinician Unavailable Timi BURGLAR ALARM OPERATORDawn Mathew Attending Clinician [phone], [facility] Attending Clinician Unavailable [facility] Attending Clinician Unavailable Lydia Hoffmann Attending Clinician [phone] Alo Andrade MD Attending Clinician +[phone] RYLAN MONTES Attending Clinician Unavailable Pritesh Sun PT Attending Clinician Unavailable JO IGLESIAS Attending Clinician Unavailable Jo Marie Attending Clinician [phone] Unknown, Attending Attending Clinician Unavailab Linda Ball PT Attending Clinician Unavailab le OGUNLANA NGOZI A Attending Clinician Unava ilable Pob, [facility] Main Attending Clinician UnavailRita Webber MD Attending Clinician [phone] Radha Avitia MD Attending Clinician +[phone] RADHA AVITIA Attending Clinician Unavailable TYLOR DEVLIN Attending Clinician Unavail able TYLOR DEVLIN Attending Clinician Unavail able JOSSELYN SANCHEZ Attending Clinician Unavailable Only, Ang Db Test Attending Clinician UnavailDAWN Fabian Attending Clinician Unavailable Dawn Mattson MD Attending Clinician +[phone] GLADYS RAMOS Attending Clinician Unavailable Gladys Ramos PA-C Attending Clinician [phone] ROSANNA BECKMAN Attending Clinician Unavailable Rosanna Beckman MD Attending Clinician +[phone] LONG ALONZO Attending Clinician Unavaila ronan Alonzo ACNPLong Attending Clinician + [phone] Isidoro Vides - Domingo Attending Clinician Unavailable MICHEAL CALLES Attending Clinician Unavailable Micheal Calles PA-C Attending Clinician [phone] DENAE ROTH Attending Clinician Nicole Roth MD, Denae Bishop Attending Clinician + [phone] RITA BARON Attending Clinician Unavailable Angelita Yepez Attending Clinician [phone] ANGELITA WOODALL Attending Clinician Unavailable Josselyn Regalado Attending Clinician +[phone] Karin Adan OD Attending Clinician +[phone] Eve Salgado MD Attending Clinician + [phone] FATEMEH DOBSON Attending Clinician Unavailable Fatemeh Lal Attending Clinician +[phone] EVE SALGADO Attending Clinician Unavaila TRUDY Zaidi Attending Clinician Unavailable Trudy Burnham Attending Clinician [phone] Idalia Clarke RN Attending Clinician Tylor Carter MD Attending Clinician +[phone] Linette Cook Attending Clinician +[phone] LINETTE RICHARDSON Attending Clinician Unavailable KARIN ADAN Attending Clinician Unavailable JC MASCORRO Attending Clinician Unavailable BETHEL DOHERTY Attending Clinician UnavailLOGAN Walls Attending Clinician Unavaila LOGAN Acosta Attending Clinician Unavaila SEUN Kaur Attending Clinician UnavailLETTY Mayers Attending Clinician Unavailable JANE TELLO Attending Clinician Unavaila MARÍA Silver Attending Clinician Unavailable TAPAN MORROW Admitting Clinician Unavailable GC_GCBZW_Kadiyala_S Admitting Clinician Unavaila CHANCE Freitas Admitting Clinician Unavailable LYDIA BOLAÑOS Admitting Clinician Unavailable RADHA DRUMMOND Admitting Clinician UnavailJOESPH Srivastava Admitting Clinician Unavailable Payers Payer Name Policy Type Policy Number Effective Date Expirati on Date Source [employer] [place] [facility] [id number] 2022 00:00:00 [employer] MP [facility] 5 O BACKSHOE PERSON 94 ON 9 [id number] 2023 00:00:00 [employer] EXCHANGE Exchange [id number] 2023 00:00:00 [place] [facility] [place] [id number] 2021 00:00:00 [facility] C1 [id number] [facility] C1 [id number] [facility] C1 [id number] [facility] C1 [id number] [facility] C1 [id number] [facility] C1 [id number] [facility] C1 [id number] [facility] C1 [id number] [facility] C1 [id number] [facility] C1 [id number] [facility] [place]ICAID [place] [id number] 2019 00:00:00 [facility] MEDICAID MC [id number] 2019 00:00:00 [facility] Problems Condition Name Condition Details Condition Category Status Onset Date Resolution Date Last Treatment Date Treating Clinician Comments Source Mixed hyperlipid emia Mixed hyperlipid emia Disease Active 2023-02 00:00: 00 Pinky Goodman Type 2 diabetes mellitus without complicati on (CMS/HCC) Type 2 diabetes mellitus without complicati on (CMS/HCC) Disease Active 2023-02 00:00: 00 Pinky Goodman Type 2 diabetes mellitus without complicati on Type 2 diabetes mellitus without complicati on Disease Active 2023-02 00:00: 00 Pinky Goodman Herpes simplex Herpes simplex Disease Active 2023-02 00:00: 00 Rose Marie jorgensen Mixed hyperlipid emia Mixed hyperlipid emia Disease Active 2023-02 00:00: 00 Rose Marie jorgensen Morbid (severe) obesity due to excess calories Morbid (severe) obesity due to excess calories Disease Active 2023-02 00:00: 00 Rose Marie jorgensen Type 2 diabetes mellitus with diabetic neuropathy , unspecifie d (multi HCC) Type 2 diabetes mellitus with diabetic neuropathy , unspecifie d (multi HCC) Disease Active 2023-02 00:00: 00 Rose Marie jorgensen Abdominal pain, epigastric Abdominal pain, epigastric Disease Active 10-16 00:00: 00 [facility] Diarrhea, unspecifie d type Diarrhea, unspecifie d type Disease Active 10-16 00:00: 00 [facility] Pain of left hand Pain of left hand Disease Active 03-15 00:00: 00 [facility] Folliculit is Folliculit is Disease Active 03-15 00:00: 00 [facility] NAFLD (nonalcoho lic fatty liver disease) NAFLD (nonalcoho lic fatty liver disease) Disease Active 09-10 00:00: 00 [facility] NAFLD (nonalcoho lic fatty liver disease) NAFLD (nonalcoho lic fatty liver disease) Disease Active 09-10 00:00: 00 Rose Marie jorgensen Metabolic syndrome Metabolic syndrome Disease Active 10-02 00:00: 00 [facility] Type 2 diabetes mellitus with complicati on, without long-term current use of insulin Type 2 diabetes mellitus with complicati on, without long-term current use of insulin Disease Active 10-02 00:00: 00 Overview: Formattin g of this note might be different from the original. Recurrent infection s [facility] Hyperglyce manuel Hyperglyce manuel Problem Active [facility] Hyperlipid emia Hyperlipid emia Problem Active [facility] Allergic rhinitis Allergic rhinitis Problem Active [facility] Family planning education, guidance, and counseling Family planning education, guidance, and counseling Problem Active [facility] PCOS (polycysti c ovarian syndrome) PCOS (polycysti c ovarian syndrome) Disease Active [facility] [id number] Abnormal menstrual periods Problem Active [facility] [id number] Pelvic pain Problem Active [facility] [id number] Follow up after completed treatment Problem Active [facility] [id number] Body mass index (BMI) of 40.0-44.9 in adult Problem Active [facility] [id number] halfway (current) use of insulin Problem Active [facility] [id number] Morbid (severe) obesity due to excess calories Problem Active [facility] [id number] Tubo-ovari an abscess Problem Active [facility] [id number] Uncontroll ed type 2 diabetes mellitus with hyperglyce manuel Problem Active [facility] [id number] History of hysterecto my Problem Active [facility] [id number] Type 2 diabetes mellitus with hyperglyce manuel Problem Active [facility] [id number] Numbness of left foot Problem Active [facility] IBS (irritable bowel syndrome) IBS (irritable bowel syndrome) Disease Active Rose Marie Camachoold - Externa l Allergies, Adverse Reactions, Alerts Allergy Name Allergy Type Status Severity Reaction(s) Onset Date Inactive Date Treating Clinician Comments Source Piperaci llin-Clark obactam In Dex Drug Allergy Active Shortness of breath 2023-02 00:00: 00 Pinky Goodman Zosyn Propensi ty to adverse reaction to drug Active 05-31 00:00: 00 Davion Blandon Zosyn - Intraven ous Propensi ty to adverse reaction to drug Active 2022-02 0-24 00:00: 00 Davion Blandon Codeine Propensi ty to adverse reaction s Active 2022-02 0- 00:00: 00 Pinky Goodman Zosyn Propensi ty to adverse reaction s Active Swelling 9-15 00:00: 00 Other Reaction( s): shortness of breath Rose Marie Seybold - Externa l Tazobact am Propensi ty to adverse reaction s Active 2018-02 00:00: 00 Other Reaction( s): Anaphylax is Rose Marie Seybold - Externa l Penicill ins Propensi ty to adverse reaction s Active 2018-02 00:00: 00 Other Reaction( s): Hives/Anthony h Rose Marie Seybold - Externa l Penicill ins DA Active U 2018-02 00:00: 00 [facility] tazobact am DA Active U 2018-02 00:00: 00 [facility] piperaci llin DA Active U 2018-02 00:00: 00 [facility] Penicill ins Drug Intolera nce Active Hives 2018-02 00:00: 00 Other Reaction( s): Hives/Anthony h Memgarrett Goodman Tazobact am Allergy to substanc e Active Anaphylaxis 2018-02 00:00: 00 Other Reaction( s): Anaphylax is Pinky Goodman PIPERACI LLIN-CLARK OBACTAM DRUG Active High Anaphylaxis 0 09-29 00:00: 00 [facility] Piperaci llin Sod-Tazo bactam So Propensi ty to adverse reaction s Active Shortness of Breath 09-29 00:00: 00 Rose Marie Camachoold - Externa l Piperaci llin Sod-Tazo bactam So Drug Allergy Active Anaphylaxis, Shortness of breath 0 8-21 00:00: 00 Pinky Goodman Social History Social Habit Start Date Stop Date Quantity Comments Source History SDOH Alcohol [facility] History SDOH Alcohol Binge [facility] History SDOH Alcohol Comment [facility] History of Tobacco Use [facility] ASSERTION Not Pinky Goodman Gender identity Zana Goodman Sexual orientation [facility] History of Social function 2023-12-30 00:00:00 2023-12-30 00:00:00 [facility] Alcoholic beverage intake 2023-12-30 00:00:00 2023-12-30 00:00:00 Lifetime non-drinker (finding) [facility] Tobacco use and exposure 2023-12-03 00:00:00 2023-12-03 00:00:00 Smokeless tobacco non-user Rose Marie Darius - External Sex 2023-11-16 13:31:57 2023-11-16 13:31:57 Female (finding) Rose Marie Weissuteold - External Alcohol intake 2022-10-31 00:00:00 2022-10-31 00:00:00 Lifetime non-drinker (finding) [facility] Exposure to SARS-CoV-2 (event) 2022-05-31 00:00:00 2022-06-10 10:25:00 Not sure [facility] History SDOH Alcohol Frequency 2018-08-16 00:00:00 2018-08-16 00:00:00 1 [facility] Education - What is the highest level of school you have completed or the highest degree you have received? 2018-08-16 00:00:00 2018-08-16 00:00:00 High school graduate [facility] History SDOH Financial 2018-08-16 00:00:00 2018-08-16 00:00:00 3 [facility] History SDOH Food Worry 2018-08-16 00:00:00 2018-08-16 00:00:00 1 [facility] History SDOH Food Scarcity 2018-08-16 00:00:00 2018-08-16 00:00:00 2 [facility] History SDOH Transport Med 2018-08-16 00:00:00 2018-08-16 00:00:00 2 [facility] History SDOH Transport Non-Med 2018-08-16 00:00:00 2018-08-16 00:00:00 2 [facility] Sex assigned at 1990 00:00:00 1990 00:00:00 Rose Marie Mccoy - External Smoking Status Start Date Stop Date Source Never smoked tobacco Rose Marie Mccoy - External Medications Ordered Medication Name Filled Medication Name Start Date Stop Date Current Medication? Ordering Clinician Indication Dosage Frequency Signature (SIG) Comments Components Source dicyclomine (Bentyl) 20 MG tablet dicyclomine (Bentyl) 20 MG tablet 05-16 00:00: 00 Yes 20mg Q.5D TAKE 1 TABLET BY MOUTH 2 TIMES DAILY NEEDED. Pinky Goodman Metformin HCl 500 MG oral Tablet 02-17 10:16: 46 Yes 1000mg QD 2 tablets (1,000 mg total) by other route daily (with breakfast) . Rose Marie jorgensen Insulin Glargine 100 UNIT/ML subcutaneou s Solution Pen-injecto r 02-17 10:16: 46 Yes 55U QD Inject 55 units into the skin daily (with breakfast) . Rose Marie jorgensen Diclofenac Sodium 75 MG oral Tablet Delayed Response 02-17 00:00: 00 Yes [id number] 75mg Q.5D Take 1 tablet (75 mg total) by mouth 2 times daily. Rose Marie jorgensen dicyclomine (Bentyl) 20 MG tablet dicyclomine (Bentyl) 20 MG tablet 02-11 00:00: 00 05-16 00:00 :00 No TAKE 1 TABLET (20 MG TOTAL) BY MOUTH 2 TIMES DAILY NEEDED. Pinky Goodman Glucose Blood (RELION TRUE METRIX TEST STRIPS ) Glucose Blood (RELION TRUE METRIX TEST STRIPS ) 2023-02 08:24: 57 01-03 00:00 :00 No 136 [id number] 3D by In Vitro route 3 times a day. Pinky Goodman glucose blood (ReliOn True Metrix Test Strips) test strip glucose blood (ReliOn True Metrix Test Strips) test strip 2023-02 00:00: 00 Yes 136 Test three times daily or as directed by MD Pinky Goodman insulin degludec (Tresiba FlexTouch) 100 UNIT/ML injection insulin degludec (Tresiba FlexTouch) 100 UNIT/ML injection 2023-02 00:00: 00 Yes 55U Inject 55 Units under the skin at bedtime. Pinky Goodman metFORMIN (Glucophage ) 500 MG tablet metFORMIN (Glucophage ) 500 MG tablet 2023-02 13:56: 02 12-29 00:00 :00 No 1000mg QD 1,000 mg by Other route in the morning. Take with meals. Pinky Goodman clindamycin (Cleocin) 300 MG capsule clindamycin (Cleocin) 300 MG capsule 2023-02 13:39: 07 Yes 300mg Take 300 mg by mouth. Pinky Goodman insulin pen needle (pen needle, diabetic) 31G X 8 mm misc insulin pen needle (pen needle, diabetic) 31G X 8 mm [facility] 2023-02 00:00: 00 Yes Use as instructed Pinky Goodman insulin syringe U-100 1 mL misc insulin syringe U-100 1 mL [facility] 2023-02 00:00: 00 Yes 6 mm needles. Use as instructed Pinky Goodman NovoLOG 100 UNIT/ML injection NovoLOG 100 UNIT/ML injection 2023-02 00:00: 00 Yes 20U Inject 20 Units under the skin in the morning and 20 Units at noon and 20 Units in the evening. Inject with meals. On a sliding scale. Pinky Goodman metFORMIN (Glucophage ) 500 MG tablet metFORMIN (Glucophage ) 500 MG tablet 2023-02 00:00: 00 06-27 23:59 :00 No 1000mg QD Take 2 tablets by mouth in the morning. Take with meals. Pinky Goodman Lantus 100 UNIT/ML injection Lantus 100 UNIT/ML injection 2023-02 00:00: 00 12-31 00:00 :00 No 55U Inject 55 Units under the skin at bedtime. 55 units once a day Pinky Goodman Rosuvastati n Calcium 20 MG oral Tablet 2023-02 0 00:00: 00 Yes [id number] 20mg QD Take 1 tablet (20 mg total) by mouth nightly. Rose Marie jorgensen Metformin HCl 500 MG oral Tablet 2023-02 024 09:10: 10 Yes 1000mg QD 2 tablets (1,000 mg total) by other route daily (with breakfast) . Rose Marie jorgensen Insulin Glargine 100 UNIT/ML subcutaneou s Solution Pen-injecto r 2023-02 0-24 09:10: 10 Yes 55U QD Inject 55 units into the skin daily (with breakfast) . Rose Marie jorgensen BD Veo Insulin Syringe U/F 31G X 15/64" 0.5 ML misc BD Veo Insulin Syringe U/F 31G X 15/64" 0.5 ML misc 2023-02 0-18 00:00: 00 Yes TAKE DIRECTED 3 TIMES A DAY Pinky Yap Epic BD Veo Insulin Syringe U/F 31G X 15/64" 0.5 ML misc BD Veo Insulin Syringe U/F 31G X 15/64" 0.5 ML misc 2023-02 018 00:00: 00 Yes TAKE DIRECTED 3 TIMES A DAY Pinky Yap Epic Lantus U-100 Insulin 100 unit/mL subcutaneou s solution - 00:00: 00 Yes unit/mL Davion Blandon Novolog U-100 Insulin aspart 100 unit/mL subcutaneou s solution - 00:00: 00 Yes unit/mL Davion Morteza Blandon Farxiga 10 mg tablet - 00:00: 00 Yes 1mg Davion Blandon metformin 500 mg tablet - 00:00: 00 Yes 1mg Davion Morteza Blandon atorvastati n 10 mg tablet 09-28 00:00: 00 Yes 1mg Davion Morteza Blandon insulin syringe U-100 1 mL misc insulin syringe U-100 1 mL misc 09-28 00:00: 00 12-29 00:00 :00 No Pinky Yap Epic Lantus U-100 Insulin 100 unit/mL subcutaneou s solution -08 00:00: 00 Yes unit/mL Davion Morteza Blandon Novolog U-100 Insulin aspart 100 unit/mL subcutaneou s solution 08 00:00: 00 Yes unit/mL Davion Morteza Blandon diclofenac 1 % topical gel -08 00:00: 00 Yes 1% Davion Morteza Blandon metformin 500 mg tablet -08 00:00: 00 Yes 1mg Davion Blandon gabapentin 100 mg capsule 08 00:00: 00 Yes 1mg Davion Blandon cyclobenzap rine 5 mg tablet 05-31 00:00: 00 Yes 1mg Davion Blandon LANTUS 100 UNIT/ML VIAL (ML) 05-29 00:00: 00 Yes Davion Blandon Lantus U-100 Insulin 100 unit/mL subcutaneou s solution 05-06 00:00: 00 Yes unit/mL Davion Blandon metformin 500 mg tablet 05-06 00:00: 00 Yes 1mg Davion Blandon Lantus 100 UNIT/ML injection Lantus 100 UNIT/ML injection 05-06 00:00: 00 12-29 00:00 :00 No Inject under the skin. 55 units once a day Pinky Yap Epic insulin pen needle (pen needle, diabetic) 31G X 8 mm misc insulin pen needle (pen needle, diabetic) 31G X 8 mm misc 05-06 00:00: 00 12-29 00:00 :00 No Pinky Yap Epic TAKE 1 TABLET BY MOUTH THREE TIMES A DAY 03-15 00:00: 00 Yes Davion Blandon TAKE 1 TABLET BY MOUTH TWICE A DAY 03-15 00:00: 00 Yes Davion Blandon dicyclomine (Bentyl) 20 MG tablet dicyclomine (Bentyl) 20 MG tablet 03-15 00:00: 00 01-01 23:59 :00 No 20mg Q.5D Take 20 mg by mouth 2 times a day as needed. Pinky Goodman NovoLOG 100 UNIT/ML injection Solution 03-10 00:00: 00 Yes 1U Inject 0.01 mL (1 unit total) into the skin 3 times daily (before meals). Rose Marie jorgensen TAKE 1 TABLET TWICE DAILY WITH FOOD. 03-10 00:00: 00 Yes 500 Davion Blandon TAKE 1 TABLET DAILY. 03-10 00:00: 00 06-23 00:00 :00 No 50 Davion Blandon INJECT PER SLIDING SCALE THREE TIMES A DAY. MAX DAILY DOSE 80 UNITS 03-10 00:00: 00 06-23 00:00 :00 No 100 Davion Blandon TAKE 10 ML EVERY 6 HOURS NEEDED. 03-02 00:00: 00 06-23 00:00 :00 No [id number] Davion Blandon INJECT 55 UNITS SC DAILY 2022-02 00:00: 00 06-23 00:00 :00 No 100 Davion Blandon TAKE 1 TABLET 30 MINUTES BEFORE MEALS AND AT BEDTIME. 2022-02 00:00: 00 06-23 00:00 :00 No 5 Davion Blandon 2 tab once daily 2022-02 00:00: 00 06-23 00:00 :00 No 500 Davion Blandon INJECT 55 UNITS SC DAILY 2022-02 00:00: 00 06-23 00:00 :00 No 100 Davion Blandon INJECT PER SLIDING SCALE THREE TIMES A DAY. MAX DAILY DOSE 80 UNITS 2022-02 00:00: 00 06-23 00:00 :00 No 100 Davion Blandon TAKE 1 TABLET DAILY. 2022-02 00:00: 00 06-23 00:00 :00 No 50 Davion Blandon insulin aspart RAPID (NOVOLOG U-100 INSULIN ASPART) 100 unit/mL injection 2022-02 00:00: 00 Yes [id number] INJECT 20 UNITS UNDER THE SKIN IN THE MORNING AND AT NOON AND IN THE EVENING BEFORE MEALS. [facility] ONDANSETRON HCL 4 MG 11-03 00:00: 00 06-23 00:00 :00 No Davion Blandon TAKE 1 TABLET BY MOUTH 4 TIMES A DAY NEEDED 11-03 00:00: 00 06-23 00:00 :00 Radhika Davion Morteza Barber iopamidol (ISOVUE 370-500 mL) injection 90 mL 11-01 00:00: 00 11-01 00:15 :00 No [id number] 90mL 90 mL, Intravenou s, ONCE, 1 dose, On Thu10/31/22 at 1915, Routine [facility] rifAXIMin 550 mg tablet 10-31 00:00: 00 10-31 00:00 :00 No [id number] 550mg Take 1 tablet by mouth in the morning and 1 tablet at noon and 1 tablet in the evening. Do all this for 14 days. [facility] dicyclomine 20 mg tablet 10-31 00:00: 00 10-31 00:00 :00 No [id number] 20mg Take 1 tablet by mouth 4 (four) times daily for 30 doses. [facility] loperamide 2 mg capsule 10-31 00:00: 00 10-31 00:00 :00 No [id number] 2mg Take 1 capsule by mouth every 4 (four) hours as needed for Diarrhea for up to 3 days. [facility] METFORMIN HCL ER 500 MG TABLET, EXTENDED RELEASE 24 HR 10-23 00:00: 00 Yes Davion Blandon semaglutide (OZEMPIC) 1 mg/dose (4 mg/3 mL) Ij 10-22 09:58: 51 10-22 00:00 :00 No 1mg inject 1 mg under the skin weekly. [facility] semaglutide (OZEMPIC) 1 mg/dose (4 mg/3 mL) Ij 10-22 00:00: 00 Yes [id number] 1mg inject 1 mg under the skin weekly. [facility] OZEMPIC 1 MG/DOSE (4 MG/3 M 10-22 00:00: 00 06-23 00:00 :00 No Davion Blandon semaglutide (OZEMPIC) 1 mg/dose (4 mg/3 mL) PnIj 10-16 13:16: 20 Yes 1mg inject 1 mg under the skin weekly. [facility] peg-electro lyte soln 236-22.74-6 .74 -5.86 gram solution 10-16 00:00: 00 Yes [id number] Take as directed before colonoscop y [facility] TAKE DIRECTED BEFORE COLONOSCOPY 10-16 00:00: 06-23 00:00 :00 No Davion Blandon TOPIRAMATE 50 MG 9 00:00: 00 Yes Davion Blandon LANTUS 100 UNIT/ML VIAL (ML) 09-30 00:00: 00 Yes Davion Blandon METFORMIN HCL ER 500 MG TABLET, EXTENDED RELEASE 24 HR 09-27 00:00: 00 Yes Davion Blandon DICLOFENAC SODIUM 1 % gel 09-24 00:00: 00 Yes [id number] TAKE 2-4 GRAMS THREE TIMES A DAY NEEDED FOR PAIN [facility] AZITHROMYCI N 250 MG 09-17 00:00: 00 06-23 00:00 :00 No Davion Blandon OMEPRAZOLE 40 MG CAPSULE,DEL AYED RELEASE (ENTERIC COATED) 09-11 00:00: 00 Yes Davion Blandon barium sulfate (E-Z-HD BARIUM) 98 % oral suspension 135 mL 09-10 19:00: 00 09-10 18:15 :00 No [id number] 135mL 135 mL, Oral, ONCE, 1 dose, On Thu09/10/22 at 1400, Routine [facility] barium sulfate (LIQUID E-Z PAQUE) 60 % (w/v) oral suspension 355 mL 09-10 19:00: 00 09-10 18:15 :00 No [id number] 355mL 355 mL, Oral, ONCE, 1 dose, On Thu09/10/22 at 1400, Routine [facility] sod bicarb-citr ic ac-simeth (E-Z-GAS II) 2.21-1.53 gram/4 gram packet 1 Packet 09-10 19:00: 00 09-10 18:15 :00 No [id number] 1{packe t} 1 Packet, Oral, ONCE, 1 dose, On Thu09/10/22 at 1400, Routine [facility] OZEMPIC 1 MG/0.75 ML (4 MG/3 ML) PEN INJECTOR (ML) 09-06 00:00: 00 Yes Davion Blandon azithromyci n 250 mg tablet 09-03 13:03: 41 09-03 00:00 :00 No 2 tablets on the first day, then 1 tablet daily for 4 days Orally Once a day for 5 day(s) [facility] azithromyci n 250 mg tablet 09-02 16:26: 50 Yes 2 tablets on the first day, then 1 tablet daily for 4 days Orally Once a day for 5 day(s) [facility] drospirenon e-ethinyl estradioL (LORYNA, 28,) 3-0.02 mg per tablet 09-02 16:26: 50 Yes 1 tablet Orally Once a day [facility] gabapentin 300 mg capsule 09-02 16:26: 50 Yes 300mg 1 capsule. [facility] Insulin Glargine (LANTUS SOLOSTAR U-100 INSULIN) 100 unit/mL (3 mL) injection 09-02 16:26: 50 Yes 74 units and increase by 2 units every 2 days until fbg less 120 ( max of 80 units daily) Subcutaneo us once daily for 30 days [facility] lisinopriL 20 mg tablet 09-02 16:26: 50 Yes 1 tablet Orally Once a day [facility] metFORMIN 500 mg tablet 09-02 16:26: 50 Yes 1 tablet with meals Orally Twice a day [facility] Insulin Glargine (LANTUS SOLOSTAR U-100 INSULIN) 100 unit/mL (3 mL) injection 09-02 16:26: 50 Yes 74 units and increase by 2 units every 2 days until fbg less 120 ( max of 80 units daily) Subcutaneo us once daily for 30 days [facility] DICLOFENAC GEL 1% 08-26 00:00: 00 06-23 00:00 :00 No Davion Blandon METFORMIN ER 08-15 00:00: 00 Yes 500 Davion Blandon CLINDAMYCIN 08-15 00:00: 00 06-23 00:00 :00 No Davion Blandon clindamycin 300 mg capsule 08-15 00:00: 00 08-23 04:59 :00 No [id number] 300mg Take 1 capsule by mouth in the morning and 1 capsule at noon and 1 capsule in the evening. Do all this for 7 days. [facility] OMEPRAZOLE 08-14 00:00: 00 Yes Davion Blandon omeprazole 40 mg capsule 08-14 00:00: 00 11-13 04:59 :00 No [id number] 40mg Take 1 capsule by mouth in the morning for 90 days. [facility] IBUPROFEN 07-27 00:00: 00 Yes Davion Blandon TAKE 1 TABLET BY MOUTH TWICE A DAY NEEDED 07-27 00:00: 00 Yes Davion Blandon DICLOFENAC GEL 1% 07-21 00:00: 00 Yes 1 Davion Blandon LANTUS INJ 100/ML 07-15 00:00: 00 Yes Davion Blandon OZEMPIC INJ /3ML 07-14 00:00: 00 Yes 4 Davion Blandon DICLOFENAC GEL 1% 06-23 00:00: 00 Yes 1 Davion Blandon insulin glargine 100 unit/mL injection 06-10 11:29: 43 06-10 00:00 :00 No 55U inject 55 Units under the skin in the morning. [facility] Insulin Glargine (LANTUS SOLOSTAR U-100 INSULIN) 100 unit/mL (3 mL) injection 06-10 11:29: 37 06-10 00:00 :00 No 74 units and increase by 2 units every 2 days until fbg less 120 ( max of 80 units daily) [facility] insulin glargine 100 unit/mL injection 06-10 00:00: 00 Yes [id number] 55U inject 55 Units under the skin in the morning. [facility] LANTUS 100 UNIT/ML VIAL 06-10 00:00: 00 Yes Davion Blandon OZEMPIC INJ /3ML 18 00:00: 00 Yes 2 Davion Blandon acetaminoph en (TYLENOL ARTHRITIS PAIN) 650 mg CR tablet 05-26 00:00: 00 Yes [id number] 650mg Take 1 tablet by mouth every 8 (eight) hours as needed for Pain. [facility] DICLOFENAC GEL 1% 05-26 00:00: 00 Yes 1 Davion Blandon metformin ER 500 mg 24 hr tablet 05-23 00:00: 00 Yes [id number] 1000mg Take 2 tablets by mouth daily with breakfast. [facility] gabapentin 300 mg capsule 05-23 00:00: 00 Yes [id number] 300mg Take 1 capsule by mouth in the morning and 1 capsule at noon and 1 capsule in the evening. [facility] methocarbam oL 750 mg tablet 05-23 00:00: 00 Yes [id number] 750mg Take 1 tablet by mouth 3 (three) times daily as needed for Pain (scale 7-10). [facility] METHOCARBAM 05-23 00:00: 00 Yes 750 Davion Blandon METFORMIN ER 05-23 00:00: 00 Yes 500 Davion Blandon GABAPENTIN 05-23 00:00: 00 Yes 300 Davion Blandon OZEMPIC 1 MG/DOSE (4 MG/3 M 05-23 00:00: 00 Yes Davion Blandon semaglutide (OZEMPIC) 1 mg/dose (4 mg/3 mL) Ij 05-23 00:00: 00 10-07 04:59 :00 No [id number] 1mg inject 1 mg under the skin weekly for 60 days. [facility] semaglutide (OZEMPIC) 0.25 mg or 0.5 mg (2 mg/3 mL) PnIj 05-23 00:00: 00 07-02 04:59 :00 No [id number] .25mg inject 0.25 mg under the skin weekly [facility] semaglutide (OZEMPIC) 0.25 mg or 0.5 mg(2 mg/1.5 mL) Ij 05-23 00:00: 00 06-23 04:59 :00 No [id number] .25mg inject 0.25 mg under the skin weekly for 30 days. [facility] semaglutide (OZEMPIC) 0.25 mg or 0.5 mg(2 mg/1.5 mL) PnIj 4-14 00:00: 00 06-23 04:59 :00 No [id number] .5mg inject 0.5 mg under the skin weekly for 30 days. [facility] semaglutide (OZEMPIC) 0.25 mg or 0.5 mg (2 mg/3 mL) Ij 14 00:00: 00 06-23 04:59 :00 No [id number] .5mg inject 0.5 mg under the skin weekly for 30 days. [facility] metFORMIN (GLUMETZA) 500 mg 24 hr tablet 05-17 00:00: 00 05-23 00:00 :00 No [id number] TAKE 2 TABLETS BY MOUTH 2 TIMES DAILY WITH MEALS. [facility] NOVOLOG INJ 100/ML 04-30 00:00: 00 06-23 00:00 :00 No 100 Davion Blandon topiramate 50 mg tablet 03-31 00:00: 00 Yes [id number] 50mg Take 1 tablet by mouth in the morning. [facility] TAKE 1 TABLET BY MOUTH EVERY DAY IN THE MORNING 03-31 00:00: 00 06-23 00:00 :00 No Davion Blandon Insulin Glargine (LANTUS SOLOSTAR U-100 INSULIN) 100 unit/mL (3 mL) injection 03-18 13:54: 54 Yes 74 units and increase by 2 units every 2 days until fbg less 120 ( max of 80 units daily) [facility] Insulin Glargine (LANTUS SOLOSTAR U-100 INSULIN) 100 unit/mL (3 mL) injection 03-18 13:54: 54 Yes 74 units and increase by 2 units every 2 days until fbg less 120 ( max of 80 units daily) [facility] TAKE THREE (3) TABLET(S) BY MOUTH TWICE A DAY (MORNING AND EVENING) FOR 5 DAYS. 03-02 00:00: 00 Yes Davion Blandon BROM/PSE/DM SYP 03-02 00:00: 00 Yes Davion Blandon nirmatrelvi r-ritonavir (PAXLOVID, EUA,) 300 mg (150 mg x 2)-100 mg tablet 03-02 00:00: 00 05-23 00:00 :00 No [id number] 3{tbl} Take 3 tablets by mouth in the morning and 3 tablets in the evening. [facility] bromphenira mine-pseudo ephedrine-D M (BROMFED DM) 2-30-10 mg/5 mL syrup 03-02 00:00: 00 05-23 00:00 :00 No [id number] 5mL Take 5 mL by mouth 3 (three) times daily as needed for Cold symptoms. [facility] TOPIRAMATE 02-25 00:00: 00 06-23 00:00 :00 No 50 Davion Blandon topiramate 50 mg tablet 02-25 00:00: 00 03-31 00:00 :00 No [id number] 50mg Take 1 tablet by mouth in the morning. [facility] VICTOZA INJ /3ML 02-22 00:00: 00 Yes 18 Davion Blandon liraglutide 0.6 mg/0.1 mL (18 mg/3 mL) injection 02-22 00:00: 00 05-23 00:00 :00 No [id number] Take 0.6mg daily for 2 weeks, then increase to 1.2mg daily if tolerate , can further increase to 1.8mg daily in 2 weeks if tolerate [facility] ketorolac (TORADOL) injection 30 mg 02-20 01:00: 00 02-20 00:30 :00 No 30mg 30 mg, Intramuscu lar, ONCE, 1 dose, On Thu02/19/22 at 1900, Routine [facility] acetaminoph en (TYLENOL) tablet 1,000 mg 02-20 01:00: 00 02-20 00:30 :00 No 1000mg 1,000 mg, Oral, ONCE, 1 dose, On Thu02/19/22 at 1900, NELL [facility] diphenhydrA MINE (BENADRYL) injection 25 mg 02-20 00:30: 00 02-20 00:30 :00 No 25mg 25 mg, Intramuscu lar, ONCE, 1 dose, On Thu02/19/22 at 1830, STAT [facility] metoclopram karely HCl (REGLAN) injection 10 mg 02-20 00:30: 00 02-20 00:30 :00 No 10mg 10 mg, Intramuscu lar, ONCE, 1 dose, On Thu02/19/22 at 1830, [facility] butalbital- aspirin-caf feine (FIORINAL) 50-325-40 mg per capsule 02-19 00:00: 00 Yes [id number] 1{capsu le} Take 1 capsule by mouth every 6 (six) hours as needed for Pain. [facility] TAKE 1 CAPSULE BY MOUTH EVERY 6 HOURS NEEDED FOR PAIN 02-19 00:00: 00 Yes Davionstepan Blandon sumatriptan 100 mg tablet 02-18 00:00: 00 Yes [id number] 100mg Take 1 tablet by mouth as needed for Migraine. Daily prn [facility] TOPIRAMATE 02-18 00:00: 00 Yes 25 Davion Blandon TAKE 1 TABLET BY MOUTH NEEDED FOR MIGRAINE. DAILY 02-18 00:00: 00 Yes Davion Blandon topiramate 25 mg tablet 02-18 00:00: 00 02-25 00:00 :00 No [id number] 25mg Take 1 tablet by mouth in the morning and 1 tablet in the evening. [facility] liraglutide 0.6 mg/0.1 mL (18 mg/3 mL) injection 02-11 00:00: 00 02-22 00:00 :00 No [id number] Take 0.6mg daily for 2 weeks, then increase to 1.2mg daily if tolerate , can further increase to 1.8mg daily in 2 weeks if tolerate [facility] CIPROFLOXAC N 2021-02 00:00: 00 Yes 500 Davion Blandon metroNIDAZO LE 500 mg tablet 2021-02 00:00: 00 05-23 00:00 :00 No TAKE 1 TABLET BY MOUTH EVERY 12 HOURS FOR 7 DAYS [facility] TAKE 1 TABLET BY MOUTH EVERY 12 HOURS FOR 7 DAYS 2021-02 00:00: 00 Yes Davion Blandon TAKE 1 TABLET BY MOUTH EVERY 12 HOURS FOR 10 DAYS 2021-02 00:00: 00 Yes Davion Blandon insulin glargine 100 unit/mL injection 2021-02 11:47: 58 Yes 55U inject 55 Units under the skin in the morning. [facility] insulin syr/ndl U100 half melvin 0.5 mL 31 gauge x 5/16" Syrg 2021-02 00:00: 00 Yes [id number] 1{each} 1 Each 4 (four) times daily. Use with insulin 4 times daily. Dx E11.8 [facility] flash glucose sensor (FREESTYLE DASH 2 SENSOR) Kit 2021-02 00:00: 00 Yes [id number] 1{each} 1 Each every 14 (fourteen) days. [facility] INJECT 20 UNITS UNDER THE SKIN IN THE MORNING AND AT NOON AND IN THE EVENING BEFORE MEALS. 2021-02 00:00: 00 06-23 00:00 :00 No Davion Blandon insulin aspart RAPID (NOVOLOG U-100 INSULIN ASPART) 100 unit/mL injection 2021-02 00:00: 00 11-25 00:00 :00 No [id number] 20U inject 20 Units under the skin in the morning and 20 Units at noon and 20 Units in the evening. inject before meals. [facility] dulaglutide (TRULICITY) 0.75 mg/0.5 mL PnIj 2021-02 00:00: 00 02-11 00:00 :00 No [id number] .75mg inject 1 Pen under the skin weekly. [facility] TAKE 1 TABLET BY MOUTH TWICE A DAY WITH FOOD 2021-02 00:00: 00 Yes Davion Blandon NYSTATIN CRE [id number] 7292-1 1-22 00:00: 00 Yes [id number] Davion Blandon naproxen 500 mg tablet 2021-02 00:00: 00 05-23 00:00 :00 No 500mg Take 500 mg by mouth in the morning and 500 mg in the evening. Take with meals. [facility] TAKE 10 ML BY MOUTH 4 (FOUR) TIMES DAILY NEEDED FOR CONGESTION/ ALLERGIES FOR UP TO 7 DAYS. 10-10 00:00: 00 Yes Davion Blandon bromphenira mine-pseudo ephedrine-D M 2-30-10 mg/5 mL syrup 10-10 00:00: 00 10-18 04:59 :00 No [id number] 10mL Take 10 mL by mouth 4 (four) times daily as needed for Congestion /Allergies for up to 7 days. [facility] VALACYCLOVI R TAB 500MG 10-08 00:00: 00 Yes Davion Blandon NOVOLOG INJ 100/ML 10-08 00:00: 00 Yes Davion Blandon VENTOLIN HFA AER 10-08 00:00: 00 Yes Davion Blandon IBUPROFEN 30 00:00: 00 Yes 800 Davion Blandon CLINDAMYCIN 10-08 00:00: 00 Yes 300 Davion Blandon NOVOLOG INJ 100/ML 09-02 00:00: 00 06-23 00:00 :00 No 100 Davion Blandon Blood-Gluco se Meter (TRUE METRIX GLUCOSE METER) Kit 07-04 00:00: 00 Yes Use to check blood sugar 3X daily. DX:E11.8 [facility] blood sugar diagnostic (TRUE METRIX GLUCOSE TEST STRIP) strip 07-04 00:00: 00 Yes Use to check blood sugar 3X daily. DX:E11.8 [facility] Blood-Gluco se Meter (TRUE METRIX GLUCOSE METER) Kit 07-04 00:00: 00 Yes Use to check blood sugar 3X daily. DX:E11.8 [facility] Insulin [place], Disposable, (PEN NEEDLE) 31 gauge x 5/16" Ndle 07-02 00:00: 00 Yes [id number] Use as directed to inject insulin four times daily for E11.8 [facility] Insulin [place], Disposable, (PEN NEEDLE) 31 gauge x 5/16" Ndle 07-02 00:00: 00 Yes [id number] Use as directed to inject insulin four times daily for E11.8 [facility] metFORMIN 500 mg 24 hr tablet 07-01 00:00: 00 05-17 00:00 :00 No [id number] 1000mg Take 2 tablets by mouth 2 (two) times daily with meals. [facility] blood sugar diagnostic (ONETOUCH VERIO TEST STRIPS) strip 07-01 00:00: 00 07-04 00:00 :00 No [id number] Use 4 times daily. Dx E11.8 [facility] Insulin [place], Disposable, (PEN NEEDLE) 31 gauge x 5/16" Ndle 07-01 00:00: 00 07-02 00:00 :00 No [id number] Use as directed [facility] acetaminoph en 500 mg tablet 05-22 00:00: 00 05-23 00:00 :00 No [id number] 1000mg Take 2 tablets by mouth every 8 (eight) hours as needed for Pain or Fever. [facility] bromphenira mine-pseudo ephedrine-D M (BROMFED DM) 2-30-10 mg/5 mL syrup 05-22 00:00: 00 02-12 00:00 :00 No [id number] 5mL Take 5 mL by mouth 4 (four) times daily as needed for Congestion /Allergies , Cold symptoms or Cough. [facility] azithromyci n 250 mg tablet 05-22 00:00: 00 02-12 00:00 :00 No [id number] 250mg Take 1 tablet by mouth daily. 2 tablets day 1, then 1 tablet days 2-5 [facility] insulin degludec-li raglutide (XULTOPHY 100/3.6) 100 unit-3.6 mg /mL (3 mL) InPn - 00:00: 00 01-28 00:00 :00 No [id number] 50U inject 50 Units under the skin daily. [facility] Nitrofurant oin&Nit. Macrocryst (MACROBID) 100 mg capsule - 00:00: 00 02-12 00:00 :00 No [id number] 100mg Take 1 capsule by mouth 2 (two) times daily. [facility] lancets (ONE TOUCH DELICA) 33 gauge Misc 04-05 00:00: 00 Yes [id number] Use 4 times daily. Dx E11.8 [facility] insulin syr/ndl U100 half melvin 0.5 mL 31 gauge x 5/16" Syrg 04-05 00:00: 00 01-28 00:00 :00 No [id number] 1{each} 1 Each 4 (four) times daily. Use with insulin 4 times daily. Dx E11.8 [facility] insulin aspart RAPID (NOVOLOG U-100 INSULIN ASPART) 100 unit/mL injection 04-05 00:00: 00 01-28 00:00 :00 No [id number] 15U inject 15 Units under the skin 3 (three) times daily before meals. [facility] blood sugar diagnostic (ONETOUCH VERIO TEST STRIPS) strip 04-05 00:00: 00 07-01 00:00 :00 No [id number] Use 4 times daily. Dx E11.8 [facility] miconazole (MICONAZOLE -7) 2 % vaginal cream 04-04 00:00: 00 02-12 00:00 :00 No [id number] 1{appli cator} Insert 1 Applicator into vagina at bedtime. [facility] ibuprofen 800 mg tablet 2022-0 2-04 16:59: 17 03-15 00:00 :00 No 800mg Take 800 mg by mouth every 6 (six) hours as needed. [facility] albuterol 90 mcg/actuati on inhaler 2020-0213 00:00: 00 Yes [id number] 2{puff} Inhale 2 Puffs every 4 (four) hours as needed for Wheezing or Shortness of Breath. [facility] clindamycin 300 mg capsule 2020-02 0 10:08: 40 11-29 00:00 :00 No 800mg Take 800 mg by mouth 4 (four) times daily. [facility] BD INSULIN SYRINGE ULTRA-FINE 1 mL 31 gauge x 5/16 Syrg 11-07 00:00: 00 Yes [facility] valACYclovi r (VALTREX) 500 mg tablet 10-29 00:00: 00 Yes [id number] 500mg Take 1 tablet by mouth 2 (two) times daily. [facility] lisinopriL 2.5 mg tablet 09-15 00:00: 00 Yes [id number] 1.25mg Take 0.5 tablets by mouth daily. [facility] topiramate 25 mg tablet 09-14 00:00: 00 02-18 00:00 :00 No [id number] 25mg Take 1 tablet by mouth 2 (two) times daily. After one week may take 2 PO BID. [facility] insulin syr/ndl U100 half melvin 0.5 mL 31 gauge x 5/16" Syrg 09-06 00:00: 00 04-05 00:00 :00 No [id number] 1{each} 1 Each 4 (four) times daily. Use with insulin 4 times daily. Dx E11.8 [facility] lancets (ONE TOUCH DELICA) 33 gauge Misc 08-17 00:00: 00 04-05 00:00 :00 No [id number] Use 4 times daily. Dx E11.8 [facility] insulin aspart RAPID (NOVOLOG U-100 INSULIN ASPART) 100 unit/mL injection 08-17 00:00: 04-05 00:00 :00 No [id number] 15U inject 15 Units under the skin 3 (three) times daily before meals. [facility] insulin glargine (LANTUS U-100 INSULIN) 100 unit/mL injection 08-17 00:00: 00 04-05 00:00 :00 No 50U inject 50 Units under the skin. [facility] blood sugar diagnostic (ONETOUCH VERIO TEST STRIPS) strip 08-17 00:00: 00 02-27 00:00 :00 No [id number] Use 4 times daily. Dx E11.8 [facility] semaglutide (OZEMPIC) 0.25 mg or 0.5 mg(2 mg/1.5 mL) PnIj 08-17 00:00: 00 11-23 00:00 :00 No [id number] .25mg inject 0.25 mg under the skin weekly. Inject 0.25 mg weekly for 4 weeks, then increase to 0.5 mg weekly injection. [facility] insulin syr/ndl U100 half melvin 0.5 mL 31 gauge x 5/16" Syrg 08-17 00:00: 00 09-06 00:00 :00 No [id number] 1{each} 1 Each 4 (four) times daily. Use with insulin 4 times daily. Dx E11.8 [facility] Insulin [place], Disposable, (PEN NEEDLE) 31 gauge x 5/16" Ndle 05-18 00:00: 00 07-01 00:00 :00 No [id number] Use as directed [facility] Insulin [place], Disposable, (PEN NEEDLE) 31 gauge x 5/16" Ndle 05-18 00:00: 00 07-01 00:00 :00 No [id number] Use as directed [facility] Insulin Syringe-Nee dle U-100 30G X 5/16" 1 ML Insulin Syringe-Nee dle U-100 30G X 5/16" 1 ML 3-03 00:00: 00 No Insulin Syringe-Ne ed[place] U-100 30G X 5/16" 1 ML Lantus 100 UNIT/ML Lantus 100 UNIT/ML 3-03 00:00: 00 No Lantus 100 UNIT/ML Pen [place] 32G X 5 MM Pen [place] 32G X 5 MM 2-24 00:00: 00 No Pen [place] 32G X 5 MM Lantus SoloStar 100 UNIT/ML Lantus SoloStar 100 UNIT/ML 1-06 00:00: 00 No QD Lantus SoloStar 100 UNIT/ML Atorvastati n Calcium 10 MG Atorvastati n Calcium 10 MG 2019-02 0-13 00:00: 00 No 1{table t} QD Atorvastat in Calcium 10 MG glipizide ER 5 mg tablet, extended release 24 hr 05-30 00:00: 00 Yes 1mg Davion Blandon Novolog Flexpen U-100 Insulin aspart 100 unit/mL (3 mL) subcutaneou s 05-29 00:00: 00 Yes (3 mL) Davion Blandon Diflucan 150 mg tablet 05-26 00:00: 00 Yes 1mg Davion Blandon mupirocin 2 % topical ointment 415 00:00: 00 Yes 1% Davion Blandon Lantus Solostar U-100 Insulin 100 unit/mL (3 mL) subcutaneou s pen 2018-02 1- 00:00: 00 Yes (3 mL) Davion Blandon linezolid 600 mg tablet 10-06 00:00: 00 11-29 00:00 :00 No [id number] 600mg Take 1 tablet by mouth every 12 (twelve) hours. [facility] Lantus Solostar U-100 Insulin 100 unit/mL (3 mL) subcutaneou s pen 09-18 00:00: 00 Yes (3 mL) Davion Blandon metformin 1,000 mg tablet 09-18 00:00: 00 Yes 1mg Davion Blandon Novolog Flexpen U-100 Insulin aspart 100 unit/mL (3 mL) subcutaneou s 8 00:00: 00 Yes (3 mL) Davion Blandon Novolog Flexpen U-100 Insulin aspart 100 unit/mL (3 mL) subcutaneou s 09-17 00:00: 00 Yes (3 mL) Davion Blandon norgestimat e-ethinyl estradiol 0.25-35 mg-mcg per tablet 09-16 00:00: 00 10-29 00:00 :00 No [id number] 1{tbl} Take 1 tablet by mouth daily. [facility] Norethin Johnnie-Eth Estrad-FE 1-20 MG-MCG(24) Norethin Johnnie-Eth Estrad-FE 1-20 MG-MCG(24) 04-21 00:00: 00 No 1{table t} QD Norethin Johnnie-Eth Estrad-FE 1-20 MG-MCG(24) Loryna 3-0.02 MG Loryna 3-0.02 MG No 1{table t} QD Loryna 3-0.02 MG Gabapentin 300 MG Gabapentin 300 MG No 1{capsu le} TID Gabapentin 300 MG Azithromyci n 250 MG Azithromyci n 250 MG No QD Azithromyc in 250 MG Immunizations Ordered Immunization Name Filled Immunization Name Date Status Comments Source TDAP 2013-02-09 00:00:00 Completed [facility] TDAP 2013-02-09 00:00:00 Completed [facility] TDAP 2013-02-09 00:00:00 Completed [facility] TDAP 2013-02-09 00:00:00 Completed [facility] TDAP 2013-02-09 00:00:00 Completed [facility] TDAP 2013-02-09 00:00:00 Completed [facility] TDAP 2013-02-09 00:00:00 Completed [facility] TDAP 2013-02-09 00:00:00 Completed [facility] TDAP 2013-02-09 00:00:00 Completed [facility] TDAP 2013-02-09 00:00:00 Completed [facility] TDAP 2013-02-09 00:00:00 Completed [facility] TDAP 2013-02-09 00:00:00 Completed [facility] TDAP 2013-02-09 00:00:00 Completed [facility] TDAP 2013-02-09 00:00:00 Completed [facility] TDAP 2013-02-09 00:00:00 Completed [facility] TDAP 2013-02-09 00:00:00 Completed [facility] TDAP 2013-02-09 00:00:00 Completed [facility] TDAP 2013-02-09 00:00:00 Completed [facility] TDAP 2013-02-09 00:00:00 Completed [facility] TDAP 2013-02-09 00:00:00 Completed [facility] TDAP 2013-02-09 00:00:00 Completed [facility] TDAP 2013-02-09 00:00:00 Completed [facility] TDAP 2013-02-09 00:00:00 Completed [facility] TDAP 2013-02-09 00:00:00 Completed [facility] TDAP 2013-02-09 00:00:00 Completed [facility] TDAP 2013-02-09 00:00:00 Completed [facility] TDAP 2013-02-09 00:00:00 Completed [facility] TDAP 2013-02-09 00:00:00 Completed [facility] TDAP 2013-02-09 00:00:00 Completed [facility] TDAP 2013-02-09 00:00:00 Completed [facility] TDAP 2013-02-09 00:00:00 Completed [facility] TDAP 2013-02-09 00:00:00 Completed [facility] TDAP 2013-02-09 00:00:00 Completed [facility] TDAP 2013-02-09 00:00:00 Completed [facility] TDAP 2013-02-09 00:00:00 Completed [facility] TDAP 2013-02-09 00:00:00 Completed [facility] TDAP 2013-02-09 00:00:00 Completed [facility] TDAP 2013-02-09 00:00:00 Completed [facility] TDAP 2013-02-09 00:00:00 Completed [facility] TDAP 2013-02-09 00:00:00 Completed [facility] TDAP 2013-02-09 00:00:00 Completed [facility] TDAP 2013-02-09 00:00:00 Completed [facility] TDAP 2013-02-09 00:00:00 Completed [facility] TDAP 2013-02-09 00:00:00 Completed [facility] TDAP 2013-02-09 00:00:00 Completed [facility] TDAP 2013-02-09 00:00:00 Completed [facility] TDAP 2013-02-09 00:00:00 Completed [facility] TDAP 2013-02-09 00:00:00 Completed [facility] TDAP 2013-02-09 00:00:00 Completed [facility] TDAP 2013-02-09 00:00:00 Completed [facility] TDAP 2013-02-09 00:00:00 Completed [facility] TDAP 2013-02-09 00:00:00 Completed [facility] TDAP 2013-02-09 00:00:00 Completed [facility] TDAP 2013-02-09 00:00:00 Completed [facility] TDAP 2013-02-09 00:00:00 Completed [facility] TDAP 2013-02-09 00:00:00 Completed [facility] TDAP 2013-02-09 00:00:00 Completed [facility] TDAP 2013-02-09 00:00:00 Completed [facility] TDAP 2013-02-09 00:00:00 Completed [facility] TDAP 2013-02-09 00:00:00 Completed [facility] TDAP 2013-02-09 00:00:00 Completed [facility] TDAP 2013-02-09 00:00:00 Completed [facility] TDAP 2013-02-09 00:00:00 Completed [facility] TDAP 2013-02-09 00:00:00 Completed [facility] TDAP 2013-02-09 00:00:00 Completed [facility] TDAP 2013-02-09 00:00:00 Completed [facility] TDAP 2013-02-09 00:00:00 Completed [facility] TDAP 2013-02-09 00:00:00 Completed [facility] TDAP 2013-02-09 00:00:00 Completed [facility] TDAP 2013-02-09 00:00:00 Completed [facility] TDAP 2013-02-09 00:00:00 Completed [facility] TDAP 2013-02-09 00:00:00 Completed [facility] Tdap Tdap 2013-02-07 00:00:00 Completed [facility] Epic Influenza, seasonal, injectable, preservative free Influenza, seasonal, injectable, preservative free 2013-02-07 00:00:00 Completed [facility] Epic TDAP Unknown Completed [facility] TDAP Unknown Completed [facility] TDAP Unknown Completed [facility] TDAP Unknown Completed [facility] TDAP Unknown Completed [facility] TDAP Unknown Completed [facility] TDAP Unknown Completed [facility] TDAP Unknown Completed [facility] TDAP [facility] [facility] TDAP Unknown Completed [facility] TDAP Unknown Completed [facility] TDAP Unknown Completed [facility] TDAP Unknown Completed [facility] AFLURIA TRIVALENT PF(0.5mL) Unknown Completed Rose Marie Seybold - External Tdap- (Boostrix, Adacel) Unknown Completed Rose Marie Seybold - External AFLURIA TRIVALENT PF(0.5mL) Unknown Completed Rose Marie Seybold - External Tdap- (Boostrix, Adacel) Unknown Completed Rose Marie Seybold - External Vital Signs Vital Name Observation Time Observation Value Comments S ource Systolic blood pressure 2024-02-18 16:14:00 116 mm[Hg] Rose Marie Camachoo ld - External Diastolic blood pressure 2024-02-18 16:14:00 74 mm[Hg] Rose Marie Camachoo ld - External Heart rate 2024-02-18 16:14:00 86 /min Judi reveles Seybold - External Body height 2024-02-18 16:14:00 160 cm Selena carrillo Seybold - External Body weight 2024-02-18 16:14:00 104.327 kg Selena carrillo Seybold - External BMI 2024-02-18 16:14:00 40.74 kg/m2 Selena carrillo Seybold - External Systolic blood pressure 2023-12-30 13:13:00 118 mm[Hg] [facility] Diastolic blood pressure 2023-12-30 13:13:00 77 mm[Hg] [facility] Epic Heart rate 2023-12-30 13:13:00 79 /min Memor ial [place] Epic Body temperature 2023-12-30 13:13:00 36.61 Nita [facility] Body height 2023-12-30 13:13:00 160 cm Zana Bradleyann Epic Body weight 2023-12-30 13:13:00 113.581 kg Zana rial [place] Epic BMI 2023-12-30 13:13:00 44.36 kg/m2 Zana rial [place] Epic Oxygen saturation in Arterial blood by Pulse oximetry 2023-12-30 13:13:00 100 /min [facility] Systolic blood pressure 2023-12-30 13:13:00 118 mm[Hg] [facility] Diastolic blood pressure 2023-12-30 13:13:00 77 mm[Hg] [facility] Heart rate 2023-12-30 13:13:00 79 /min [facility] 2023-12-30 13:13:00 36.61 Nita [facility] Body height 2023-12-30 13:13:00 160 cm Zana Bradleyann Epic Body weight 2023-12-30 13:13:00 113.581 kg Zana lilian [place] Epic BMI 2023-12-30 13:13:00 44.36 kg/m2 Zana rial [place] Epic Oxygen saturation in Arterial blood by Pulse oximetry 2023-12-30 13:13:00 100 /min [facility] Systolic blood pressure 2023-12-03 14:00:00 93 mm[Hg] Rose Marie Camachoo ld - External Diastolic blood pressure 2023-12-03 14:00:00 63 mm[Hg] Rose Marie Burns ld - External Heart rate 2023-12-03 14:00:00 71 /min Judi Camachoold - External Body temperature 2023-12-03 14:00:00 36.67 Nita Rose Marie Weissybold - External Respiratory rate 2023-12-03 14:00:00 18 /min Rose Marie Weissybold - External Body height 2023-12-03 14:00:00 160 cm Selena ey Seybold - External Body weight 2023-12-03 14:00:00 115.214 kg Selena ey Seybold - External BMI 2023-12-03 14:00:00 44.99 kg/m2 Selena ey Seybold - External Oxygen saturation in Arterial blood by Pulse oximetry 2023-12-03 14:00:00 99 /min Rose Marie Seutesang ld - External Systolic blood pressure 2022-11-01 01:18:46 119 mm[Hg] [facility] Diastolic blood pressure 2022-11-01 01:18:46 86 mm[Hg] [facility] Heart rate 2022-11-01 01:18:46 74 /min Unive [facility] Body temperature 2022-11-01 01:18:46 37 Nita [facility] Respiratory rate 2022-11-01 01:18:46 18 /min [facility] Body weight 2022-10-31 21:56:00 106.595 kg [facility] BMI 2022-10-31 21:56:00 41.63 kg/m2 [facility] Oxygen saturation in Arterial blood by Pulse oximetry 2022-10-31 21:56:00 99 /min [facility] Systolic blood pressure 2022-10-16 18:15:00 113 mm[Hg] [facility] Diastolic blood pressure 2022-10-16 18:15:00 71 mm[Hg] [facility] Heart rate 2022-10-16 18:15:00 109 /min Unive [facility] Body temperature 2022-10-16 18:15:00 36.44 Nita [facility] Respiratory rate 2022-10-16 18:15:00 16 /min [facility] Body height 2022-10-16 18:15:00 160 cm [facility] Body weight 2022-10-16 18:15:00 106.777 kg [facility] BMI 2022-10-16 18:15:00 41.70 kg/m2 [facility] Oxygen saturation in Arterial blood by Pulse oximetry 2022-10-16 18:15:00 97 /min [facility] Systolic blood pressure 2022-10-14 19:04:00 114 mm[Hg] [facility] Diastolic blood pressure 2022-10-14 19:04:00 78 mm[Hg] [facility] Heart rate 2022-10-14 19:04:00 104 /min Unive [facility] Body height 2022-10-14 19:04:00 160 cm [facility] Body weight 2022-10-14 19:04:00 107.457 kg [facility] BMI 2022-10-14 19:04:00 41.96 kg/m2 [facility] Systolic blood pressure 2022-09-03 17:38:00 117 mm[Hg] [facility] Diastolic blood pressure 2022-09-03 17:38:00 79 mm[Hg] [facility] Heart rate 2022-09-03 17:38:00 83 /min Unive [facility] Body temperature 2022-09-03 17:38:00 36.5 Nita [facility] Respiratory rate 2022-09-03 17:38:00 18 /min [facility] Body height 2022-09-03 17:38:00 160 cm [facility] Body weight 2022-09-03 17:38:00 109.634 kg [facility] BMI 2022-09-03 17:38:00 42.82 kg/m2 [facility] Oxygen saturation in Arterial blood by Pulse oximetry 2022-09-03 17:38:00 98 /min [facility] Systolic blood pressure 2022-09-02 21:26:00 107 mm[Hg] [facility] Diastolic blood pressure 2022-09-02 21:26:00 67 mm[Hg] [facility] Heart rate 2022-09-02 21:26:00 96 /min [facility] Body temperature 2022-09-02 21:26:00 36.17 Nita [facility] Respiratory rate 2022-09-02 21:26:00 18 /min [facility] Body height 2022-09-02 21:26:00 160 cm Univ [facility] Body weight 2022-09-02 21:26:00 110.088 kg Univ [facility] BMI 2022-09-02 21:26:00 42.99 kg/m2 Univ [facility] Oxygen saturation in Arterial blood by Pulse oximetry 2022-09-02 21:26:00 98 /min [facility] Systolic blood pressure 2022-08-14 17:51:00 114 mm[Hg] [facility] Diastolic blood pressure 2022-08-14 17:51:00 76 mm[Hg] [facility] Heart rate 2022-08-14 17:51:00 82 /min [facility] Body temperature 2022-08-14 17:51:00 36.72 Nita [facility] Respiratory rate 2022-08-14 17:51:00 19 /min [facility] Body height 2022-08-14 17:51:00 167.6 cm Univ [facility] Body weight 2022-08-14 17:51:00 108.183 kg [facility] BMI 2022-08-14 17:51:00 38.49 kg/m2 Univ [facility] Oxygen saturation in Arterial blood by Pulse oximetry 2022-08-14 17:51:00 99 /min [facility] Systolic blood pressure 2022-08-13 15:42:00 116 mm[Hg] [facility] Diastolic blood pressure 2022-08-13 15:42:00 83 mm[Hg] [facility] Heart rate 2022-08-13 15:42:00 80 /min Unive [facility] Body temperature 2022-08-13 15:42:00 36.67 Nita [facility] Respiratory rate 2022-08-13 15:42:00 18 /min [facility] Body height 2022-08-13 15:42:00 160 cm Univ [facility] Body weight 2022-08-13 15:42:00 109.317 kg Univ [facility] BMI 2022-08-13 15:42:00 42.69 kg/m2 Univ [facility] Systolic blood pressure 2022-06-10 16:36:00 106 mm[Hg] [facility] Diastolic blood pressure 2022-06-10 16:36:00 74 mm[Hg] [facility] Heart rate 2022-06-10 15:28:00 88 /min [facility] Body height 2022-06-10 15:28:00 160 cm [facility] Body weight 2022-06-10 15:28:00 108.41 kg [facility] BMI 2022-06-10 15:28:00 42.34 kg/m2 [facility] Oxygen saturation in Arterial blood by Pulse oximetry 2022-06-10 15:28:00 97 /min [facility] Systolic blood pressure 2022-05-23 20:11:00 119 mm[Hg] [facility] Diastolic blood pressure 2022-05-23 20:11:00 72 mm[Hg] [facility] Heart rate 2022-05-23 20:11:00 73 /min [facility] Body temperature 2022-05-23 20:11:00 36.5 Nita [facility] Respiratory rate 2022-05-23 20:11:00 20 /min [facility] Body height 2022-05-23 20:11:00 160 cm [facility] Body weight 2022-05-23 20:11:00 108.138 kg [facility] BMI 2022-05-23 20:11:00 42.23 kg/m2 [facility] Oxygen saturation in Arterial blood by Pulse oximetry 2022-05-23 20:11:00 97 /min [facility] Systolic blood pressure 2022-03-31 15:24:00 117 mm[Hg] [facility] Diastolic blood pressure 2022-03-31 15:24:00 76 mm[Hg] [facility] Body weight 2022-03-31 15:24:00 105.96 kg [facility] BMI 2022-03-31 15:24:00 41.38 kg/m2 [facility] Systolic blood pressure 2022-03-18 19:52:00 117 mm[Hg] [facility] Diastolic blood pressure 2022-03-18 19:52:00 80 mm[Hg] [facility] Heart rate 2022-03-18 19:52:00 72 /min Unive [facility] Body temperature 2022-03-18 19:52:00 36.67 Nita [facility] Respiratory rate 2022-03-18 19:52:00 16 /min [facility] Body height 2022-03-18 19:52:00 160 cm [facility] Body weight 2022-03-18 19:52:00 103.874 kg [facility] BMI 2022-03-18 19:52:00 40.57 kg/m2 [facility] Oxygen saturation in Arterial blood by Pulse oximetry 2022-03-18 19:52:00 97 /min [facility] Systolic blood pressure 2022-03-02 19:39:00 105 mm[Hg] [facility] Diastolic blood pressure 2022-03-02 19:39:00 72 mm[Hg] [facility] Heart rate 2022-03-02 19:39:00 83 /min Un[facility] Body temperature 2022-03-02 19:39:00 37.17 Nita [facility] Respiratory rate 2022-03-02 19:39:00 16 /min [facility] Body height 2022-03-02 19:39:00 160 cm [facility] Body weight 2022-03-02 19:39:00 102.921 kg [facility] BMI 2022-03-02 19:39:00 40.19 kg/m2 [facility] Oxygen saturation in Arterial blood by Pulse oximetry 2022-03-02 19:39:00 98 /min [facility] Systolic blood pressure 2022-02-25 20:52:00 122 mm[Hg] [facility] Diastolic blood pressure 2022-02-25 20:52:00 77 mm[Hg] [facility] Heart rate 2022-02-25 20:52:00 90 /min Un[facility] Body temperature 2022-02-25 20:52:00 36.44 Nita [facility] Respiratory rate 2022-02-25 20:52:00 18 /min [facility] Body height 2022-02-25 20:52:00 160 cm [facility] Body weight 2022-02-25 20:52:00 105.416 kg [facility] BMI 2022-02-25 20:52:00 41.17 kg/m2 [facility] Oxygen saturation in Arterial blood by Pulse oximetry 2022-02-25 20:52:00 98 /min [facility] Systolic blood pressure 2022-02-25 15:38:00 102 mm[Hg] [facility] Diastolic blood pressure 2022-02-25 15:38:00 70 mm[Hg] [facility] Heart rate 2022-02-25 15:38:00 82 /min [facility] Body height 2022-02-25 15:38:00 160 cm [facility] Body weight 2022-02-25 15:38:00 103.874 kg [facility] BMI 2022-02-25 15:38:00 40.57 kg/m2 [facility] Oxygen saturation in Arterial blood by Pulse oximetry 2022-02-25 15:38:00 98 /min [facility] Systolic blood pressure 2022-02-20 01:34:22 107 mm[Hg] [facility] Diastolic blood pressure 2022-02-20 01:34:22 77 mm[Hg] [facility] Heart rate 2022-02-20 01:34:22 82 /min [facility] Body temperature 2022-02-20 01:34:22 37 Nita [facility] Respiratory rate 2022-02-20 01:34:22 18 /min [facility] Oxygen saturation in Arterial blood by Pulse oximetry 2022-02-20 01:34:22 100 /min [facility] Body height 2022-02-20 00:06:00 160 cm [facility] Body weight 2022-02-20 00:06:00 102.059 kg [facility] BMI 2022-02-20 00:06:00 39.86 kg/m2 Univ [facility] Systolic blood pressure 2022-02-12 15:11:00 112 mm[Hg] [facility] Diastolic blood pressure 2022-02-12 15:11:00 73 mm[Hg] [facility] Heart rate 2022-02-12 15:11:00 75 /min Unive [facility] Respiratory rate 2022-02-12 15:11:00 18 /min [facility] Body height 2022-02-12 15:11:00 160 cm Univ [facility] Body weight 2022-02-12 15:11:00 102.059 kg [facility] BMI 2022-02-12 15:11:00 39.86 kg/m2 [facility] Oxygen saturation in Arterial blood by Pulse oximetry 2022-02-12 15:11:00 98 /min [facility] Systolic blood pressure 2022-01-28 17:18:00 100 mm[Hg] [facility] Diastolic blood pressure 2022-01-28 17:18:00 70 mm[Hg] [facility] Heart rate 2022-01-28 17:18:00 107 /min [facility] Body height 2022-01-28 17:18:00 160 cm Univ [facility] Body weight 2022-01-28 17:18:00 102.059 kg [facility] BMI 2022-01-28 17:18:00 39.86 kg/m2 [facility] Oxygen saturation in Arterial blood by Pulse oximetry 2022-01-28 17:18:00 99 /min [facility] Systolic blood pressure 2021-10-10 16:15:00 109 mm[Hg] [facility] Diastolic blood pressure 2021-10-10 16:15:00 74 mm[Hg] [facility] Heart rate 2021-10-10 16:15:00 90 /min [facility] Body temperature 2021-10-10 16:15:00 37.22 Nita [facility] Respiratory rate 2021-10-10 16:15:00 18 /min [facility] Body height 2021-10-10 16:15:00 160 cm [facility] Body weight 2021-10-10 16:15:00 102.967 kg [facility] BMI 2021-10-10 16:15:00 40.21 kg/m2 [facility] Oxygen saturation in Arterial blood by Pulse oximetry 2021-10-10 16:15:00 98 /min [facility] Systolic blood pressure 2021-07-01 21:03:00 115 mm[Hg] [facility] Diastolic blood pressure 2021-07-01 21:03:00 75 mm[Hg] [facility] Heart rate 2021-07-01 21:03:00 81 /min [facility] 2021-07-01 21:03:00 103.874 kg [facility] BMI 2021-07-01 21:03:00 40.57 kg/m2 [facility] Oxygen saturation in Arterial blood by Pulse oximetry 2021-07-01 21:03:00 97 /min [facility] height 2019-11-22 10:00:00 63 [in_i] Commo n [facility] weight 2019-11-22 10:00:00 223.8 [lb_av] Co mmon [facility] temperature 2019-11-22 10:00:00 97.8 [degF] Com mon [facility] bmi 2019-11-22 10:00:00 39.64 kg/m2 Comm on [facility] oximetry 2019-11-22 10:00:00 97 % Commo n [facility] respiratory rate 2019-11-22 10:00:00 15 /min Common [facility] blood pressure systolic 2019-11-22 10:00:00 118 mm[Hg] Common [facility] blood pressure diastolic 2019-11-22 10:00:00 68 mm[Hg] Common [facility] height 2019-11-14 13:00:00 63 [in_i] Commo n [facility] weight 2019-11-14 13:00:00 223.8 [lb_av] Co mmon [facility] temperature 2019-11-14 13:00:00 97.7 [degF] Com mon [facility] bmi 2019-11-14 13:00:00 39.64 kg/m2 Comm on [facility] oximetry 2019-11-14 13:00:00 97 % Commo n [facility] respiratory rate 2019-11-14 13:00:00 15 /min Common [facility] blood pressure systolic 2019-11-14 13:00:00 110 mm[Hg] Common [facility] blood pressure diastolic 2019-11-14 13:00:00 68 mm[Hg] Common [facility] BP Systolic 2023-06-17 14:43:00 Step hen F Barber BP Diastolic 2023-06-17 14:43:00 Miguel Ángel phen F Barber Weight Measured 2023-06-17 14:43:00 248.60 pounds Davion F Barber Height Measured 2023-06-17 14:43:00 63.00 inches Davion F Barber Body Temperature 2023-06-17 14:43:00 97.50 degrees Davion F Barber Heart Rate 2023-06-17 14:43:00 Magaly en F Barber Respiratory Rate 2023-06-17 14:43:00 Davion F Barber BP Diastolic 2023-06-01 13:38:00 71 mm[Hg] Miguel Ángel phen F Barber Weight Measured 2023-06-01 13:38:00 243.60 pounds Davion F Barber Height Measured 2023-06-01 13:38:00 63.00 inches Davion F Barber Body Temperature 2023-06-01 13:38:00 97.30 degrees Davion F Barber Heart Rate 2023-06-01 13:38:00 80.00 /min Magaly en F Barber Respiratory Rate 2023-06-01 13:38:00 18.00 /min Davion F Barber BP Systolic 2023-06-01 13:38:00 109 mm[Hg] Step hen F Barber BP Systolic 2023-05-07 16:10:00 Step hen F Barber BP Diastolic 2023-05-07 16:10:00 Miguel Ángel phen F Barber Weight Measured 2023-05-07 16:10:00 Davion F Barber Height Measured 2023-05-07 16:10:00 Davion F Barber Body Temperature 2023-05-07 16:10:00 Davion F Barber Heart Rate 2023-05-07 16:10:00 Magaly en F Barber Respiratory Rate 2023-05-07 16:10:00 Davion F Barber BP Systolic 2023-03-10 14:28:00 108 mm[Hg] Step hen F Barber BP Diastolic 2023-03-10 14:28:00 79 mm[Hg] Miguel Ángel phen F Barber Weight Measured 2023-03-10 14:28:00 239.80 pounds Davion F Barber Height Measured 2023-03-10 14:28:00 63.00 inches Davion F Barber Body Temperature 2023-03-10 14:28:00 98.00 degrees Davion F Barber Heart Rate 2023-03-10 14:28:00 80.00 /min Magaly en F Barber Respiratory Rate 2023-03-10 14:28:00 18.00 /min Davion F Barber BP Systolic 2023-03-02 09:19:00 110 mm[Hg] Step hen F Barber BP Diastolic 2023-03-02 09:19:00 72 mm[Hg] Miguel Ángel phen F Barber Weight Measured 2023-03-02 09:19:00 239.60 pounds Davion F Barber Height Measured 2023-03-02 09:19:00 63.00 inches Davion F Barber Body Temperature 2023-03-02 09:19:00 98.40 degrees Davion F Barber Heart Rate 2023-03-02 09:19:00 84.00 /min Magaly en F Barber Respiratory Rate 2023-03-02 09:19:00 18.00 /min Davion F Barber BP Systolic 2022-12-05 14:57:00 90 mm[Hg] Step hen F Barber BP Diastolic 2022-12-05 14:57:00 63 mm[Hg] Miguel Ángel phen F Barber Weight Measured 2022-12-05 14:57:00 237.40 pounds Davion F Barber Height Measured 2022-12-05 14:57:00 63.00 inches Davion F Barber Body Temperature 2022-12-05 14:57:00 98.00 degrees Davion F Barber Heart Rate 2022-12-05 14:57:00 73.00 /min Magaly en F Barber Respiratory Rate 2022-12-05 14:57:00 18.00 /min Davion F Barber BP Systolic 2022-12-02 15:33:00 103 mm[Hg] Step hen F Barber BP Diastolic 2022-12-02 15:33:00 69 mm[Hg] Miguel Ángel phen F Barber Weight Measured 2022-12-02 15:33:00 237.40 pounds Davion F Barber Height Measured 2022-12-02 15:33:00 63.00 inches Davion F Barber Body Temperature 2022-12-02 15:33:00 98.20 degrees Davion F Barber Heart Rate 2022-12-02 15:33:00 80.00 /min Magaly en F Barber Respiratory Rate 2022-12-02 15:33:00 Davion F Barber BP Systolic 2019-05-30 13:34:00 106 mm[Hg] Step hen F Barber BP Diastolic 2019-05-30 13:34:00 72 mm[Hg] Miguel Ángel phen F Barber Weight Measured 2019-05-30 13:34:00 224.00 pounds Davion F Barber Height Measured 2019-05-30 13:34:00 62.99 inches Davion F Barber Body Temperature 2019-05-30 13:34:00 98.10 degrees Davion F Barber Heart Rate 2019-05-30 13:34:00 72.00 /min Magaly en F Barber Respiratory Rate 2019-05-30 13:34:00 16.00 /min Davion F Barber BP Systolic 2019-05-25 14:59:00 105 mm[Hg] Step hen F Barber BP Diastolic 2019-05-25 14:59:00 70 mm[Hg] Miguel Ángel phen F Barber Weight Measured 2019-05-25 14:59:00 222.80 pounds Davino F Barber Height Measured 2019-05-25 14:59:00 62.99 inches Davion F Barber Body Temperature 2019-05-25 14:59:00 98.30 degrees Davion F Barber Heart Rate 2019-05-25 14:59:00 84.00 /min Magaly en F Barber Respiratory Rate 2019-05-25 14:59:00 17.00 /min Davion F Barber BP Systolic 2019-01-05 16:37:00 108 mm[Hg] Step hen F Barber BP Diastolic 2019-01-05 16:37:00 73 mm[Hg] Miguel Ángel phen F Barber Weight Measured 2019-01-05 16:37:00 248.60 pounds Davion F Barber Height Measured 2019-01-05 16:37:00 62.99 inches Davion F Barber Body Temperature 2019-01-05 16:37:00 98.60 degrees Davion F Barber Heart Rate 2019-01-05 16:37:00 95.00 /min Magaly en F Barbre Respiratory Rate 2019-01-05 16:37:00 16.00 /min Davion F Barber BP Systolic 2018-09-20 11:30:00 106 mm[Hg] Step hen F Barber BP Diastolic 2018-09-20 11:30:00 73 mm[Hg] Miguel Ángel phen F Barber Weight Measured 2018-09-20 11:30:00 247.80 pounds Davion F Barber Height Measured 2018-09-20 11:30:00 62.99 inches Davion F Barber Body Temperature 2018-09-20 11:30:00 98.70 degrees Davion F Barber Heart Rate 2018-09-20 11:30:00 80.00 /min Magaly en F Barber Respiratory Rate 2018-09-20 11:30:00 16.00 /min Davion F Barber Procedures Procedure Date / Time Performed Performing Clinician Source DIABETES EYE EXAM 2023-08-10 00:00:00 Provide r, Generic External Data [facility] CT ABDOMEN PELVIS W CONTRAST 2022-11-01 00:06:26 Chance Hammer [facility] POCT TEST 2022-10-31 23:19:00 Britney Hammer [facility] LIPASE 2022-10-31 23:14:00 Chance Hammer [facility] COMP. METABOLIC PANEL ([id number]) 2022-10-31 23:14:00 Chance Hammer [facility] CBC WITH DIFF 2022-10-31 23:14:00 Chance Hammer [facility] URINALYSIS 2022-10-31 23:14:00 Chance Hammer [facility] ASSIGNMENT OF BENEFITS 2022-10-31 22:50:52 Docsanjay r Unassigned, [place] [facility] CONSENT/REFUSAL FOR DIAGNOSIS AND TREATMENT 2022-10-31 21:51:30 Doctor Unassigned, [place] [facility] DISCLOSURE AND CONSENT, MEDICAL AND SURGICAL PROCEDURES 2022-10-16 05:01:00 Doctor Unassigned, [place] [facility] REFERRAL- REQUEST/RESPONSE 2022-10-01 05:01:00 Doctor Unassigned, [place] [facility] DME/SUPPLY JUSTIFICATION 2022-09-24 05:01:00 Doc sravani Unassigned, [place] [facility] FL UPPER GI AIR CONTRAST 2022-09-10 18:52:45 Dami Bolaños [facility] REFERRAL- REQUEST/RESPONSE 2022-09-02 05:01:00 Doctor Unassigned, [place] [facility] POCT HEMOGLOBIN A1C TEST 2022-08-13 17:01:00 Radha Drummond [facility] INSURANCE CORRESPONDENCE 2022-07-02 05:01:00 Khoa tor Unassigned, [place] [facility] PATIENT FINANCIAL POLICY 2022-06-10 15:26:49 Doctor Unassigned, [place] [facility] XR FOOT 3+ VW LEFT 2022-05-23 21:33:38 Karen Drummond [facility] ASSIGNMENT OF BENEFITS 2022-05-23 21:18:45 Docto r Unassigned, [place] [facility] MR BRAIN WO CONTRAST 2022-03-18 16:31:00 Kayden Brown [facility] POCT SARS-COV-2 ANTIGEN (BINAX NOW) 2022-03-02 19:45:00 Gladys Ramos [facility] CONSENT/REFUSAL FOR DIAGNOSIS AND TREATMENT 2022-02-20 00:01:44 Doctor Unassigned, [place] [facility] NOTICE OF PRIVACY PRACTICES 2022-02-20 00:01:09 Doctor Unassigned, [place] [facility] CT HEAD WO CONTRAST 2022-02-17 20:30:00 Hoda Marga ukwu [facility] LIPID PANEL (13864)(TOTAL CHOLESTEROL, TRIGLYCERIDES, HDL) 2022-01-28 18:11:00 Rita Baron [facility] CBC WITH DIFF 2022-01-28 18:11:00 Rita Baron [facility] FREE T4 2022-01-28 18:11:00 Rita Baron [facility] POCT HEMOGLOBIN A1C TEST 2022-01-28 17:28:00 Courtney Gomez [facility] ASSIGNMENT OF BENEFITS 2022-01-28 17:05:10 Docto r Unassigned, [place] [facility] POCT SARS-COV-2 ANTIGEN (BINAX NOW) 2021-10-10 16:22:00 Micheal Calles [facility] POCT HEMOGLOBIN A1C TEST 2021-07-01 21:12:00 Rita Baron [facility] DME/SUPPLY JUSTIFICATION 2021-03-31 06:01:00 Doc tor Unassigned, [place] [facility] Encounters Start Date/Time End Date/Time Encounter Type Admission Type Attending [facility] Care Facility Care Department Encounter ID Source 2024-04-21 10:42:00 Outpatient Ronny Agarwal [facility] [id number] [facility] 2024-04-13 17:07:00 Outpatient Ronny Agarwal [facility] [id number] [facility] 2024-03-21 09:29:00 [facility] [id number] [facility] 2022-12-04 15:19:10 Outpatient TAPAN REY GABRIEL [facility] [id number] [facility] 2021-03-06 12:28:47 [facility] [id number] [facility] 2021-03-06 12:28:12 Outpatient Marcela Kelley [facility] [id number] [facility] 2021-03-06 12:25:04 Outpatient Kelley, Na STLMLC STLMLC [id number] [facility] 2021-03-06 12:17:52 Outpatient Kelley, Na STLMLC STLMLC [id number] [facility] 2021-03-06 12:15:18 Outpatient Kelley, Na STLMLC STLMLC [id number] [facility] 2021-03-06 12:13:42 Outpatient Kelley, Na STLMLC STLMLC [id number] [facility] 2021-03-06 11:59:23 Outpatient Kelley, Na STLMLC STLMLC [id number] [facility] 2021-03-06 11:58:53 Outpatient Kelley, Na STLMLC STLMLC [id number] [facility] 2021-03-06 11:56:53 Outpatient Kelley, Na STLMLC STLMLC [id number] [facility] 2021-03-06 11:54:19 Outpatient Kelley, Na STLMLC STLMLC [id number] [facility] 2021-03-06 11:52:02 Outpatient Kelley, Na STLMLC STLMLC [id number] [facility] 2021-03-06 11:51:35 Outpatient Kelley, Na STLMLC STLMLC [id number] [facility] 2021-03-06 11:51:00 Outpatient Kelley, Na STLMLC STLMLC [id number] [facility] 2021-03-06 11:49:29 Outpatient Kelley, Na STLMLC STLMLC [id number] [facility] 2021-03-06 11:48:31 Outpatient Kelley, Na STLMLC STLMLC [id number] [facility] 2021-03-06 11:46:10 Out[facility] [id number] [facility] 2024-07-26 10:20:00 2024-07-26 10:20:00 Outpatient DORCAS CAMP ROSE MARIE PASCAL [id number] [facility] 2024-05-13 00:00:00 2024-05-16 14:33:39 Mary Hathaway 1.2.840.114 350.1.13.70 8.2.7.2.686 [id number] Pinky Yap [facility] 2024-04-27 00:00:00 2024-04-27 00:00:00 Outpatient JESUSANDRAE ROSE MARIE PASCAL [id number] [facility] 2024-04-13 00:00:00 2024-04-13 00:00:00 (TEL) [facility] [id number] [facility] 2024-03-31 13:50:00 2024-03-31 13:50:00 Outpatient CARROLL MONTOYA [id number] [facility] 2024-02-18 10:10:00 2024-02-18 10:10:00 Outpatient CARROLL MONTOYA [id number] [facility] 2024-02-18 10:05:00 2024-02-18 10:05:00 Outpatient ROSE MARIE PASCAL [id number] [facility] 2024-02-18 10:00:00 2024-02-18 10:00:00 Outpatient CARROLL MONTOYA [id number] [facility] 2024-02-18 09:20:00 2024-02-18 09:20:00 Outpatient KATHYA CASH [id number] [facility] 2024-02-18 00:00:00 2024-02-18 00:00:00 Outpatient CARROLL MONTOYA [id number] [facility] 2024-02-18 00:00:00 2024-02-18 00:00:00 Outpatient CARROLL MONTOYA ROSE MARIE [id number] [facility] 2024-02-18 00:00:00 2024-02-18 00:00:00 Outpatient CARROLL MONTOYA ROSE MARIE [id number] [facility] 2024-01-13 00:00:00 2024-01-13 00:00:00 Outpatient ANDRAE JESUS ROSE MARIE PASCAL [id number] [facility] 2024-01-04 00:00:00 2024-01-05 08:24:59 Refill Palma, Margi Palma, Margi Jamey 1.2.840.114 350.1.13.70 8.2.7.2.686 [id number] Pinky jorgensen [facility] 2023-12-30 00:00:00 2024-01-01 08:53:45 Refill Mary De La Torre 1.2.840.114 350.1.13.70 8.2.7.2.686 [id number] Pinky jorgensen [facility] 2023-12-30 00:00:00 2023-12-30 14:26:23 Telephone Palma, Margi Palma, Margi Jamey 1.2.840.114 350.1.13.70 8.2.7.2.686 [id number] Pinky jorgensen [facility] 2023-12-30 13:06:20 2023-12-30 14:05:26 Outpatient Elective [facility] [id number] EOUT 2023-12-30 13:15:00 2023-12-30 13:45:00 Office Visit Mary De La Torre 1.2.840.114 350.1.13.70 8.2.7.2.686 [id number] Pinky jorgensen [facility] 2023-12-30 09:20:00 2023-12-30 09:20:00 Outpatient DESIREE DAWKINS [id number] [facility] 2023-12-25 00:00:00 2023-12-25 00:00:00 Outpatient JESUS, ANDRAE PASCAL ROSE MARIE [id number] [facility] 2023-12-07 00:00:00 2023-12-07 00:00:00 Outpatient MD ROSE MARIE FAITH [id number] [facility] 2023-12-07 00:00:00 2023-12-07 00:00:00 Outpatient JESUS, ANDRAE PASCAL ROSE MARIE [id number] [facility] 2023-12-03 09:45:00 2023-12-03 09:45:00 Outpatient LAB79 ROSE MARIE ROSE MARIE [id number] [facility] 2023-12-03 09:00:00 2023-12-03 09:00:00 Outpatient JESUS, ANDRAE PASCAL [facility] MAR[facility] [id number] [facility]-03 00:00:00 2023-12-03 00:00:00 Outpatient JESUS, ANDRAE PASCAL ROSE MARIE [id number] [facility] 2023-12-03 00:00:00 2023-12-03 00:00:00 Outpatient JESUS, ANDRAE PASCAL ROSE MARIE [id number] [facility] 2023-11-27 08:00:00 2023-11-27 08:00:00 Outpatient JESUS, ANDRAE PASCAL ROSE MARIE [id number] [facility] 2023-11-26 13:30:00 2023-11-26 13:30:00 Outpatient JAYA PASTRANA ROSE MARIE ROSE MARIE [id number] [facility] 2023-11-26 08:00:00 2023-11-26 08:00:00 Outpatient JESUS, ANDRAE ROSE MARIE PASCAL [id number] [facility] 2023-09-29 15:14:26 2023-09-29 15:14:26 Outpatient SFA SFA [id number] Davion Pro Barber 2023-09-29 00:00:00 2023-09-29 00:00:00 Outpatient Visit SFA [id number] Davion Blandon 2023-06-18 15:06:15 2023-06-18 15:06:15 Outpatient SFA [facility] [id number] Davion Blandon 2023-06-17 14:42:00 2023-06-17 14:42:00 Outpatient SFA [facility] [id number] Davion Pro Barber 2023-06-17 00:00:00 2023-06-17 00:00:00 Outpatient Visit SFA [id number] Davion Pro Barber 2023-06-01 13:31:12 2023-06-01 13:31:12 Outpatient SFA [facility] [id number] Davion Pro Barber 2023-06-01 00:00:00 2023-06-01 00:00:00 Outpatient Visit SFA [id number] Davion Pro Barber 2023-04-14 10:00:00 2023-04-14 10:00:00 Outpatient ELZBIETA MANLEY [facility] [id number] [facility] 2023-03-31 09:30:00 2023-03-31 09:30:00 Outpatient NUZHAT STERN [facility] [id number] [facility] 2023-03-10 14:20:07 2023-03-10 14:20:07 Outpatient S[facility] [id number] Davion Pro Lopez 2023-03-02 09:10:08 2023-03-02 09:10:08 Outpatient SFA [facility] [id number] Davion Pro Lopez 2023-01-15 13:00:00 2023-01-15 13:00:00 Outpatient DAWN FONG [facility] [id number] [facility] 2022-12-09 00:00:00 2022-12-09 00:00:00 Outpatient [id number] [email or web address]_S [facility] [id number] [facility] 2022-12-05 14:48:57 2022-12-05 14:48:57 Outpatient [facility] [id number] Davion Blandon 2022-12-04 00:00:00 2022-12-04 00:00:00 Patient Secure Msg Doctor Unassigned, [place] [facility] 1..840.114 350.1.13.10 4.2.7.2.686 [id number] [facility] 2022-12-02 15:37:55 2022-12-02 15:37:55 Outpatient [facility] [id number] Davion Blandon 2022-11-24 00:00:00 2022-11-24 00:00:00 [facility] 1..840.114 350.1.13.10 4.2.7.2.686 [id number] [facility] 2022-11-17 16:00:00 2022-11-17 16:00:00 Outpatient R HODA, OGECHWU HODA, OGECHUKWU [facility] [id number] [facility] 2022-11-17 13:30:00 2022-11-17 13:30:00 Outpatient R HODA, OGECHADRIANOU HODA, OGECHUKWU [facility] [id number] [facility] 2022-10-31 16:57:00 2022-10-31 20:30:00 Emergency X JAQUELIN, SALMARIELY JAQUELIN, [facility] [id number] [facility] 2022-10-31 16:57:00 2022-10-31 20:30:00 Emergency Jaquelin, Salmin [facility] 1..840.114 350.1.13.10 4.2.7.2.686 [id number] [facility] 2022-10-27 00:00:00 2022-10-27 00:00:00 [facility] 1.2840.114 350.1.13.10 4.2.7.2.686 [id number] [facility] 2022-10-21 08:30:00 2022-10-21 08:45:00 Compliance Associate Visit 2, [facility] Timi [facility] 1.2840.114 350.1.13.10 4.2.7.2.686 [id number] [facility] 2022-10-21 08:30:00 2022-10-21 08:30:00 Outpatient R TIMI [facility] [id number] [facility] 2022-10-21 00:00:00 2022-10-21 00:00:00 Refill Radha Drummond [facility] 1.2840.114 350.1.13.10 4.2.7.2.686 [id number] [facility] 2022-10-16 14:00:00 2022-10-16 14:15:00 Compliance Associate Visit [facility] Timi [facility] 1.2840.114 350.1.13.10 4.2.7.2.686 [id number] [facility] 2022-10-16 13:00:00 2022-10-16 13:46:42 Outpatient R TIMI [facility] [id number] [facility] 2022-10-16 13:00:00 2022-10-16 13:46:42 [facility] 1.20.114 350.1.13.10 4.2.7.2.686 [id number] [facility] 2022-10-16 00:00:00 2022-10-16 00:00:00 Orders Only Doctor Unassigned, [place] [facility] 1.2840.114 350.1.13.10 4.2.7.2.686 [id number] [facility] 2022-10-14 13:30:00 2022-10-14 14:57:38 Outpatient R JASON [facility] [id number] [facility] 2022-10-14 13:30:00 2022-10-14 14:57:38 Office Visit Jason [facility] 1.2.840.114 350.1.13.10 4.2.7.2.686 [id number] [facility] 2022-10-06 00:00:00 2022-10-06 00:00:00 Telephone Hoda [facility] BUILDING 1..840.114 350.1.13.10 4.2.7.2.686 [id number] [facility] 2022-10-06 00:00:00 2022-10-06 00:00:00 Patient Secure Msg Hoda [facility] BUILDING 1.2.840.114 350.1.13.10 4.2.7.2.686 [id number] [facility] 2022-10-01 10:30:00 2022-10-01 10:30:00 Outpatient R MIKY LYDIA [facility] [id number] [facility] 2022-10-01 00:00:00 2022-10-01 00:00:00 Telephone Miky [facility] 1.840.114 350.1.13.10 4.2.7.2.686 [id number] [facility] 2022-10-01 00:00:00 2022-10-01 00:00:00 Orders Only Doctor Unassigned, [place] [facility] 1.840.114 350.1.13.10 4.2.7.2.686 [id number] [facility] 2022-09-24 00:00:00 2022-09-24 00:00:00 Refill Hoda Radha [facility] 1..840.114 350.1.13.10 4.2.7.2.686 [id number] [facility] 2022-09-24 00:00:00 2022-09-24 00:00:00 Orders Only Doctor Unassigned, [place] [facility] 1.840.114 350.1.13.10 4.2.7.2.686 [id number] [facility] 2022-09-17 00:00:00 2022-09-17 00:00:00 Patient Secure Msjenna LupeAlo [facility] 1..840.114 350.1.13.10 4.2.7.2.686 [id number] [facility] 2022-09-10 12:27:14 2022-09-10 23:59:00 Outpatient LYDIA BOTELLO [facility] [id number] [facility] 2022-09-10 10:29:45 2022-09-10 23:59:00 Hospital Encounter Lydia Bolaños [facility] 1.840.114 350.1.13.10 4.2.7.2.686 [id number] [facility] 2022-09-08 14:30:00 2022-09-08 14:30:00 Outpatient RYLAN MARQUES [facility] [id number] [facility] 2022-09-08 00:00:00 2022-09-08 00:00:00 Telephone [facility]eta [facility] 1.2.840.114 350.1.13.10 4.2.7.2.686 [id number] [facility] 2022-09-08 00:00:00 2022-09-08 00:00:00 Case Management Pritesh Sun [facility] 1..840.114 350.1.13.10 4.2.7.2.686 [id number] [facility] 2022-09-04 09:30:00 2022-09-04 09:30:00 Outpatient R DAWN CAPELLAN [facility] [id number] [facility] 2022-09-03 12:30:00 2022-09-03 12:59:33 Outpatient R JO IGLESIAS [facility] [id number] [facility] 2022-09-03 12:30:00 2022-09-03 12:59:33 Urgent Care Jo Iglesias Unknown, Attending [facility] 1.2.840.114 350.1.13.10 4.2.7.2.686 [id number] [facility] 2022-09-03 11:00:00 2022-09-03 11:00:00 Outpatient R [facility] [id number] [facility] 2022-09-03 00:00:00 2022-09-03 00:00:00 Letter (Out) Jo Iglesias [facility] 1.2.840.114 350.1.13.10 4.2.7.2.686 [id number] [facility] 2022-09-02 16:15:00 2022-09-02 17:23:00 Outpatient R LYDIA BOLAÑOS [facility] [id number] [facility] 2022-09-02 16:15:00 2022-09-02 17:23:00 Office Visit Lydia Bolaños [facility] 1.2840.114 350.1.13.10 4.2.7.2.686 [id number] [facility] 2022-09-02 00:00:00 2022-09-02 00:00:00 Orders Only Doctor Unassigned, [place] [facility] 1.2.840.114 350.1.13.10 4.2.7.2.686 [id number] [facility] 2022-08-20 00:00:00 2022-08-20 00:00:00 Patient Secure Msg Doctor Unassigned, [place] [facility] 1.2840.114 350.1.13.10 4.2.7.2.686 [id number] [facility] 2022-08-18 10:15:00 2022-08-18 10:15:00 Compliance Associate Visit 2, Adc Lab Dawn Capellan [facility] 1.840.114 350.1.13.10 4.2.7.2.686 [id number] [facility] 2022-08-18 10:15:00 2022-08-18 09:51:18 Outpatient R DAWN CAPELLAN [facility] [id number] [facility] 2022-08-15 00:00:00 2022-08-15 00:00:00 Telephone Timi Dawn [facility] 1.0.114 350.1.13.10 4.2.7.2.686 [id number] [facility] 2022-08-15 00:00:00 2022-08-15 00:00:00 Patient Secure Msg Timi [facility] 1.840.114 350.1.13.10 4.2.7.2.686 [id number] [facility] 2022-08-14 13:30:00 2022-08-14 13:45:00 Compliance Associate Visit [facility] Timi [facility] 1.2.840.114 350.1.13.10 4.2.7.2.686 [id number] [facility] 2022-08-14 13:00:00 2022-08-14 13:30:00 Office Visit Capellan [facility] 1.2.840.114 350.1.13.10 4.2.7.2.686 [id number] [facility] 2022-08-14 13:00:00 2022-08-14 13:00:00 Outpatient Jaime CAPELLAN DAWN [facility] [id number] [facility] 2022-08-14 00:00:00 2022-08-14 00:00:00 Telephone Radha Drummond [facility] 1.2.840.114 350.1.13.10 4.2.7.2.686 [id number] [facility] 2022-08-13 10:30:00 2022-08-13 11:55:22 Outpatient R RADHA DRUMMOND OGECHUKWU [facility] [id number] [facility] 2022-08-13 10:30:00 2022-08-13 11:55:22 Office Visit Radha Drummond [facility] 1.2.840.114 350.1.13.10 4.2.7.2.686 [id number] [facility] 2022-07-31 09:00:00 2022-07-31 09:00:00 Outpatient R DAWN CAPELLAN [facility] [id number] [facility] 2022-07-08 09:30:00 2022-07-08 09:30:00 Outpatient R RADHA DRUMMOND OGECHUKWU [facility] [id number] [facility] 2022-07-04 13:00:00 2022-07-04 13:00:00 Outpatient R TIMI DAWN [facility] [id number] [facility] 2022-07-02 00:00:00 2022-07-02 00:00:00 Orders Only Doctor Unassigned, [place] [facility] 1..840.114 350.1.13.10 4.2.7.2.686 [id number] [facility] 2022-06-30 00:00:00 2022-06-30 00:00:00 Telephone Elzbieta Gomez [facility] 1..840.114 350.1.13.10 4.2.7.2.686 [id number] [facility] 2022-06-27 15:30:00 2022-06-27 15:30:00 Outpatient R RADHA DRUMMOND OGMARYANNEMIRTA [facility] [id number] [facility] 2022-06-27 11:30:00 2022-06-27 11:30:00 Outpatient R RADHA DRUMMOND OGMARYANNEMIRTA [facility] [id number] [facility] 2022-06-24 09:15:00 2022-06-24 10:16:05 Ancillary Visit Linda Barnett Ogechukwu [facility] BUILD[facility] 1..840.114 350.1.13.10 4.2.7.2.686 [id number] [facility] 2022-06-23 16:45:00 2022-06-23 16:45:00 Outpatient R NGOZI THOMAS [facility] [id number] [facility] 2022-06-16 16:15:00 2022-06-16 16:15:00 Outpatient R BRENDALUCAS HOOVERNGOZI [facility] [id number] [facility] 2022-06-16 16:10:00 2022-06-16 16:10:00 Outpatient R RYLAN MONTES [facility] [id number] [facility] 2022-06-10 10:30:00 2022-06-10 11:39:18 [facility] [id number] [facility] 2022-06-10 10:30:00 2022-06-10 11:39:18 [facility] 1.2.840.114 350.1.13.10 4.2.7.2.686 [id number] [facility] 2022-06-10 00:00:00 2022-06-10 00:00:00 Orders Only Doctor Unassigned, [place] [facility] 1..840.114 350.1.13.10 4.2.7.2.686 [id number] [facility] 2022-05-27 00:00:00 2022-05-27 00:00:00 Telephone Radha Drummond [facility] 1.2.840.114 350.1.13.10 4.2.7.2.686 [id number] [facility] 2022-05-26 00:00:00 2022-05-26 00:00:00 Telephone Radha Drummond [facility] 1.2.840.114 350.1.13.10 4.2.7.2.686 [id number] [facility] 2022-05-24 09:30:00 2022-05-24 09:45:00 Compliance Associate Visit Pob, Adc Lab Main Radha Drummond [facility] 1.2840.114 350.1.13.10 4.2.7.2.686 [id number] [facility] 2022-05-24 09:30:00 2022-05-24 09:30:00 Outpatient R RADHA DRUMMOND OGECHUKWU [facility] [id number] [facility] 2022-05-23 16:19:08 2022-05-23 23:59:00 Outpatient R RADHA DRUMMOND OGECHUKWU [facility] [id number] [facility] 2022-05-23 16:19:08 2022-05-23 23:59:00 Hospital Encounter Radha Drummond [facility] 1.2.840.114 350.1.13.10 4.2.7.2.686 [id number] [facility] 2022-05-23 15:30:00 2022-05-23 16:01:41 Office Visit Radha Drummond [facility] 1.2840.114 350.1.13.10 4.2.7.2.686 [id number] [facility] 2022-05-23 00:00:00 2022-05-23 00:00:00 Orders Only Doctor Unassigned, [place] [facility] 1.2.840.114 350.1.13.10 4.2.7.2.686 [id number] [facility] 2022-05-17 00:00:00 2022-05-17 00:00:00 Refill Rita Baron [facility] 1.2840.114 350.1.13.10 4.2.7.2.686 [id number] [facility] 2022-05-17 00:00:00 2022-05-17 00:00:00 [facility]phone [facility] 1.0.114 350.1.13.10 4.2.7.2.686 [id number] [facility] 2022-05-17 00:00:00 2022-05-17 00:00:00 Refill [facility]bieta [facility] 1.2840.114 350.1.13.10 4.2.7.2.686 [id number] [facility] 2022-05-12 00:00:00 2022-05-12 00:00:00 Telephone Rita [facility] 1.0.114 350.1.13.10 4.2.7.2.686 [id number] [facility] 2022-03-31 09:30:00 2022-03-31 09:56:25 Outpatient R STEPHANIE [facility] [id number] [facility] 2022-03-31 09:30:00 2022-03-31 09:56:25 Office Visit Stephanie [facility] 1.0.114 350.1.13.10 4.2.7.2.686 [id number] [facility] 2022-03-31 00:00:00 2022-03-31 00:00:00 Telephone [facility] 1.840.114 350.1.13.10 4.2.7.2.686 [id number] [facility] 2022-03-19 00:00:00 2022-03-19 00:00:00 [facility] 1.840.114 350.1.13.10 4.2.7.2.686 [id number] [facility] 2022-03-18 09:31:06 2022-03-18 23:59:00 Hospital Encounter Nuzhat Brown [facility] 1.2.840.114 350.1.13.10 4.2.7.2.686 [id number] [facility] 2022-03-18 14:15:00 2022-03-18 14:30:00 Office Visit Radha Avitia [facility] 1.2.840.114 350.1.13.10 4.2.7.2.686 [id number] [facility] 2022-03-18 14:15:00 2022-03-18 14:15:00 Outpatient R RADHA AVITIA [facility] [id number] [facility] 2022-03-05 12:15:00 2022-03-05 12:30:00 Laboratory Only Only, Ang Db Test Unknown, [facility] [facility] MED[facility] OFFICE BUILDING 1.2.840.114 350.1.13.10 4.2.7.2.686 [id number] [facility] 2022-03-05 12:15:00 2022-03-05 12:15:00 Outpatient R SRINIVASAN DAWN [facility] [id number] [facility] 2022-03-05 00:00:00 2022-03-05 00:00:00 Letter (Out) [facility] 1.2.840.114 350.1.13.10 4.2.7.2.686 [id number] [facility] 2022-03-04 15:00:00 2022-03-04 15:00:00 Outpatient R RADHA AVITIA [facility] [id number] [facility] 2022-03-02 13:40:00 2022-03-02 13:54:53 Outpatient R GLADYS RAMOS [facility] [id number] [facility] 2022-03-02 13:40:00 2022-03-02 13:54:53 Urgent Care Gladys Ramos Unknown, Attending [facility] MED[facility] OFFICE BUILDING 1.2840.114 350.1.13.10 4.2.7.2.686 [id number] [facility] 2022-02-28 00:00:00 2022-02-28 00:00:00 Patient Secure Msg Doctor Unassigned, [place] [facility] 1.2.114 350.1.13.10 4.2.7.2.686 [id number] [facility] 2022-02-25 14:30:00 2022-02-25 15:37:12 Outpatient R ROSANNA BECKMAN [facility] [id number] [facility] 2022-02-25 14:30:00 2022-02-25 15:37:12 Office Visit Rosanna Beck[facility] 1.84.114 350.1.13.10 4.2.7.2.686 [id number] [facility] 2022-02-25 09:30:00 2022-02-25 10:00:21 Office [facility] MEDICAL OFFICE BUILDING 1.284.114 350.1.13.10 4.2.7.2.686 [id number] [facility] 2022-02-21 00:00:00 2022-02-21 00:00:00 Telephone Elzbieta Gomez [facility] MEDICAL OFFICE BUILDING 1.284.114 350.1.13.10 4.2.7.2.686 [id number] [facility] 2022-02-19 18:07:00 2022-02-19 19:37:00 Emergency X [facility] E[facility] [id number] [facility] 2022-02-19 18:07:00 2022-02-19 19:37:00 Emergency Long Alonzo [facility] 1.2.840.114 350.1.13.10 4.2.7.2.686 [id number] [facility] 2022-02-18 00:00:00 2022-02-18 00:00:00 Telephone Jason [facility] OFFICE BUILDING 1.284.114 350.1.13.10 4.2.7.2.686 [id number] 220 [id number] [facility] 2022-02-18 00:00:00 2022-02-18 00:00:00 Telephone Jason [facility] MEDICAL [facility] BUILDING 1.2840.114 350.1.13.10 4.2.7.2.686 [id number] [facility] 2022-02-18 00:00:00 2022-02-18 00:00:00 Telephone Radha Drummond [facility] BUILDING 1.2840.114 350.1.13.10 4.2.7.2.686 [id number] [facility] 2022-02-18 00:00:00 2022-02-18 00:00:00 Patient Secure Msg Doctor Unassigned, [place] [facility] 1.284.114 350.1.13.10 4.2.7.2.686 [id number] [facility] 2022-02-17 14:08:16 2022-02-17 23:59:00 Outpatient R RADHA DRUMMOND OGECHUKWU [facility] [id number] [facility] 2022-02-17 14:08:16 2022-02-17 23:59:00 Hospital Encounter Radha Drummond [facility] 1.2.840.114 350.1.13.10 4.2.7.2.686 [id number] [facility] 2022-02-12 08:30:00 2022-02-12 09:46:57 Outpatient R RADHA [facility]UMMOND [facility] [id number] [facility] 2022-02-12 08:30:00 2022-02-12 09:46:57 Office Visit Radha Drummond [facility] PROFESSIO NAL BUILDING 1.2.840.114 350.1.13.10 4.2.7.2.686 [id number] [facility] 2022-02-12 00:00:00 2022-02-12 00:00:00 Patient Secure Msg Doctor Unassigned, [place] [facility] MEDICAL OFFICE BUILDING 1.2.840.114 350.1.13.10 4.2.7.2.686 [id number] 220 [id number] [facility] 2022-02-11 00:00:00 2022-02-11 00:00:00 Telephone Jason [facility] [place] [place] MEDICAL OFFICE BUILDING 1.2.840.114 350.1.13.10 4.2.7.2.686 [id number] [facility] 2022-02-05 00:00:00 2022-02-05 00:00:00 Telephone Jason [facility] CIPRIANO?[facility] MEDICAL OFFICE BUILDING 1.2.840.114 350.1.13.10 4.2.7.2.686 [id number] 220 [id number] [facility] 2022-01-29 00:00:00 2022-01-29 00:00:00 Telephone Jason [facility] OFFICE BUILDING 1.2840.114 350.1.13.10 4.2.7.2.686 [id number] 220 [id number] [facility] 2022-01-28 12:00:00 2022-01-28 12:16:22 Compliance Associate Visit Lab, Ang - Domingo Jason [facility] [place] [place] 1.840.114 350.1.13.10 4.2.7.2.686 [id number] [facility] 2022-01-28 11:00:00 2022-01-28 12:16:15 Outpatient R JASON [facility] [id number] [facility] 2022-01-28 11:00:00 2022-01-28 12:16:15 Office Visit Jason [facility] MEDICAL OFFICE BUILDING 1.840.114 350.1.13.10 4.2.7.2.686 [id number] [facility] 2022-01-28 00:00:00 2022-01-28 00:00:00 Orders Only Doctor Unassigned, [place] [facility] 1.84.114 350.1.13.10 4.2.7.2.686 [id number] [facility] 2022-01-28 00:00:00 2022-01-28 00:00:00 Telephone Jason [facility] MEDICAL OFFICE BUILDING 1.840.114 350.1.13.10 4.2.7.2.686 [id number] [facility] 2022-01-28 00:00:00 2022-01-28 00:00:00 Telephone Radha Drummond [facility] 1.2.840.114 350.1.13.10 4.2.7.2.686 [id number] [facility] 2022-01-28 00:00:00 2022-01-28 00:00:00 Telephone Rita Baron [facility] MEDICAL OFFICE BUILDING 1.2.840.114 350.1.13.10 4.2.7.2.686 [id number] [facility] 2022-01-24 00:00:00 2022-01-24 00:00:00 Patient Secure Msg Doctor Unassigned, [place] [facility] MEDICAL OFFICE BUILDING 1.2.840.114 350.1.13.10 4.2.7.2.686 [id number] [facility] 2021-12-19 13:00:00 2021-12-19 13:00:00 Outpatient GLADYS BISHOP [facility] [id number] [facility] 2021-12-06 13:30:00 2021-12-06 13:30:00 Outpatient JOSSELYN COLON [facility] [id number] [facility] 2021-11-08 10:00:00 2021-11-08 10:00:00 Outpatient JOSSELYN COLON [facility] [id number] [facility] 2021-10-29 10:00:00 2021-10-29 10:00:00 Outpatient GLADYS BISHOP [facility] [id number] [facility] 2021-10-29 10:00:00 2021-10-29 10:00:00 Outpatient GLADYS BISHOP [facility] [id number] [facility] 2021-10-29 10:00:00 2021-10-29 10:00:00 [facility] [id number] 2021-10-29 10:00:00 2021-10-29 10:00:00 Outpatient R GLADYS RAMOS [facility] [id number] [facility] 2021-10-29 10:00:00 2021-10-29 10:00:00 Outpatient R GLADYS RAMOS [facility] [id number] [facility] 2021-10-29 10:00:00 2021-10-29 10:00:00 Outpatient R GLADYS RAMOS [facility] [id number] [facility] 2021-10-10 15:20:00 2021-10-10 15:20:00 Outpatient R [facility] [id number] [facility] 2021-10-10 11:20:00 2021-10-10 11:42:20 Outpatient MICHEAL LOMBARDI [facility] [id number] [facility] 2021-10-10 11:20:00 2021-10-10 11:42:20 Urgent Care Micheal Calles, Attending [facility] MEDICAL OFFICE BUILDING 1.2.840.114 350.1.13.10 4.2.7.2.686 [id number] [facility] 2021-10-04 14:00:00 2021-10-04 14:00:00 Outpatient JOSSELYN COLON [facility] [id number] [facility] 2021-09-06 13:00:00 2021-09-06 13:00:00 Outpatient R JOSSELYN SANCHEZ [facility] [id number] [facility] 2021-08-02 15:30:00 2021-08-02 15:30:00 Outpatient R DENAE ROTH [facility] [id number] [facility] 2021-08-01 00:00:00 2021-08-01 00:00:00 Telephone Radha Drummond [facility] 1.2.840.114 350.1.13.10 4.2.7.2.686 [id number] [facility] 2021-08-01 00:00:00 2021-08-01 00:00:00 Telephone Juliet Denae Bishop [facility] MED[facility] OFFICE BUILDING 1.2.840.114 350.1.13.10 4.2.7.2.686 [id number] [facility] 2021-07-05 10:00:00 2021-07-05 10:00:00 Outpatient JOSSELYN COLON [facility] [id number] [facility] 2021-07-04 00:00:00 2021-07-04 00:00:00 Telephone Nicole [facility] MEDICAL OFFICE BUILDING 1.2.840.114 350.1.13.10 4.2.7.2.686 [id number] [facility] 2021-07-02 00:00:00 2021-07-02 00:00:00 Telephone Rita Baron [facility] MEDICAL OFFICE BUILDING 1.2.840.114 350.1.13.10 4.2.7.2.686 [id number] 220 [id number] [facility] 2021-07-02 00:00:00 2021-07-02 00:00:00 [facility] MEDICAL OFFICE BUILDING 1.2.840.114 350.1.13.10 4.2.7.2.686 [id number] [facility] 2021-07-01 16:00:00 2021-07-01 17:10:06 Outpatient R RITA BARON YU [facility] [id number] [facility] 2021-07-01 16:00:00 2021-07-01 17:10:06 Outpatient R RITA BARON [facility] [id number] [facility] 2021-07-01 16:00:00 2021-07-01 17:10:06 Office Visit Rita Baron [facility] 1.284.114 350.1.13.10 4.2.7.2.686 [id number] [facility] 2021-06-18 10:12:30 2021-06-18 23:59:00 Hospital [facility] MED[facility] OFF[facility] BUILDING 1.2840.114 350.1.13.10 4.2.7.2.686 [id number] [facility] 2021-06-18 09:20:00 2021-06-18 10:11:32 Urgent Care Jose C Angelita [facility] 1.84.114 350.1.13.10 4.2.7.2.686 [id number] [facility] 2021-06-18 09:48:04 2021-06-18 10:11:00 Outpatient R ANGELITA WOODALL [facility] [id number] [facility] 2021-06-18 09:48:04 2021-06-18 10:11:00 Hospital Encounter Jose C [facility]ita [facility] 1.84.114 350.1.13.10 4.2.7.2.686 [id number] [facility] 2021-05-27 00:00:00 2021-05-27 00:00:00 Telephone Josselyn [facility] 1.84.114 350.1.13.10 4.2.7.2.686 [id number] [facility] 2021-05-24 00:00:00 2021-05-24 00:00:00 [facility] 1.84.114 350.1.13.10 4.2.7.2.686 [id number] [facility] 2021-05-22 10:30:00 2021-05-22 11:35:17 Outpatient R RADHA DRUMMOND OGECHUKWU [facility] [id number] [facility] 2021-05-22 10:30:00 2021-05-22 11:35:17 [facility] 1.2.840.114 350.1.13.10 4.2.7.2.686 [id number] [facility] 2021-05-22 10:30:00 2021-05-22 10:30:00 Outpatient R RADHA DRUMMOND OGECHUKWU [facility] [id number] [facility] 2021-05-03 00:00:00 2021-05-03 00:00:00 [facility] MEDICAL OFFICE BUILDING 1.2.840.114 350.1.13.10 4.2.7.2.686 [id number] [facility] 2021-04-12 00:00:00 2021-04-12 00:00:00 Telephone [facility] MEDICAL OFFICE BUILDING 1.2.840.114 350.1.13.10 4.2.7.2.686 [id number] [facility] 2021-04-12 00:00:00 2021-04-12 00:00:00 Telephone [facility] OFFICE BUILDING 1.2.840.114 350.1.13.10 4.2.7.2.686 [id number] [facility] 2021-04-11 00:00:2021-04-11 00:00:00 Orders Only Doctor Unassigned, [place] [facility] 1.2.840.114 350.1.13.10 4.2.7.2.686 [id number] [facility] 2021-04-10 00:00:00 2021-04-10 00:00:00 Telephone Josselyn Sanchez [facility] 1.2.840.114 350.1.13.10 4.2.7.2.686 [id number] [facility] 2021-04-05 10:00:00 2021-04-05 10:40:49 Outpatient Jaime SANCHEZ JOSSELYN [facility] [id number] [facility] 2021-04-05 10:00:00 2021-04-05 10:00:00 Outpatient JOSSELYN COLON [facility] [id number] [facility] 2021-04-04 00:00:00 2021-04-04 00:00:00 [address] Ramos [facility] BUILDING 1.2.840.114 350.1.13.10 4.2.7.2.686 [id number] [facility] 2021-04-03 15:45:00 2021-04-03 16:15:00 Office Visit Gladys Ramos [facility] BUILDING 1.2.840.114 350.1.13.10 4.2.7.2.686 [id number] [facility] 2021-04-03 15:45:00 2021-04-03 15:45:00 Outpatient R GLADYS RAMOS [facility] [id number] [facility] 2021-04-03 15:45:00 2021-04-03 15:45:00 Outpatient R GLADYS RAMOS [facility] [id number] [facility] 2021-04-03 00:00:00 2021-04-03 00:00:00 Lai Marisa [facility] 1.840.114 350.1.13.10 4.2.7.2.686 [id number] [facility] 2021-03-31 00:00:00 2021-03-31 00:00:00 Orders Only Doctor Unassigned, [place] [facility] 1.114 350.1.13.10 4.2.7.2.686 [id number] [facility] 2021-03-19 10:00:00 2021-03-19 10:00:00 Outpatient R LYDIA BOLAÑOS [facility] [id number] [facility] 2021-03-18 00:00:00 2021-03-18 00:00:00 Telephone Josselyn Sanchez [facility] MEDICAL OFFICE BUILDING 1.840.114 350.1.13.10 4.2.7.2.686 [id number] [facility] 2021-03-18 00:00:00 2021-03-18 00:00:00 Telephone Eve Salgado [facility] MEDICAL OFFICE BUILDING 1.840.114 350.1.13.10 4.2.7.2.686 [id number] [facility] 2021-03-15 16:00:00 2021-03-15 16:50:39 Outpatient R FATEMEH DOBSON [facility] [id number] [facility] 2021-03-15 16:00:00 2021-03-15 16:50:39 Office Visit Fatemeh Dobson [facility] MEDICAL OFFICE BUILDING 1.840.114 350.1.13.10 4.2.7.2.686 [id number] [facility] 2021-03-15 16:00:00 2021-03-15 16:50:39 Outpatient R SUSSYFATEMEH Webster [facility] [id number] [facility] 2021-03-05 14:30:00 2021-03-05 14:30:00 Outpatient R JOSSELYN SANCHEZ [facility] [id number] [facility] 2021-02-15 00:00:00 2021-02-15 00:00:00 Refill Eve Salgado [facility] CIP[facility] MEDICAL OFFICE BUILDING 1.2.840.114 350.1.13.10 4.2.7.2.686 [id number] [facility] 2021-01-24 00:00:00 2021-01-24 00:00:00 Orders Only Doctor Unassigned, [place] [facility] 1.2.840.114 350.1.13.10 4.2.7.2.686 [id number] [facility] 2021-01-21 14:29:38 2021-01-21 14:44:38 Compliance Associate Visit Lab, Ang - Db ZearingEve schuster [facility] C[facility] MEDICAL OFFICE BUILDING 1.2.840.114 350.1.13.10 4.2.7.2.686 [id number] [facility] 2021-01-21 13:26:38 2021-01-21 14:32:25 Office Visit [facility] MEDICAL OFFICE BUILDING 1.2840.114 350.1.13.10 4.2.7.2.686 [id number] [facility] 2021-01-21 13:15:00 2021-01-21 14:32:25 Outpatient R EVE SALGADO [facility] [id number] [facility] 2021-01-09 20:52:00 2021-01-09 22:30:00 Emergency X TRUDY GUDINO [facility] ERT [id number] [facility] 2021-01-09 20:52:00 2021-01-09 22:30:00 Emergency Trudy Gudino [facility] 1.2.840.114 350.1.13.10 4.2.7.2.686 [id number] [facility] 2021-01-09 00:00:00 2021-01-09 00:00:00 Orders Only Doctor Unassigned, [place] [facility] 1.2840.114 350.1.13.10 4.2.7.2.686 [id number] [facility] 2021-01-09 00:00:00 2021-01-09 00:00:00 Telephone Idalia Clarke [facility] 1.840.114 350.1.13.10 4.2.7.2.686 [id number] [facility] 2021-01-05 00:00:00 2021-01-05 00:00:00 Tylor Teran [facility] PROFESSIO NAL BUILDING 1.840.114 350.1.13.10 4.2.7.2.686 [id number] [facility] 2020-12-07 00:00:00 2020-12-07 00:00:00 Telephone Eve Salgado [facility] MEDICAL OFFICE BUILDING 1.840.114 350.1.13.10 4.2.7.2.686 [id number] [facility] 2020-11-30 00:00:00 2020-11-30 00:00:00 Telephone Linette Richardson [facility] Cipriano?[facility] Medical Office Building 1.2840.114 350.1.13.10 4.2.7.2.686 [id number] [facility] 2020-11-30 00:00:00 2020-11-30 00:00:00 Telephone Linette Richardson [facility] C[facility]ano?[facility] Medical Office Building 1.2.840.114 350.1.13.10 4.2.7.2.686 [id number] [facility] 2020-11-29 09:25:19 2020-11-29 09:55:19 Office Visit Linette Richardson [facility] Cipriano?[facility] Office Building 1..840.114 350.1.13.10 4.2.7.2.686 [id number] [facility] 2020-11-29 09:30:00 2020-11-29 09:30:00 Outpatient R LINETTE RICHARDSON [facility] [id number] [facility] 2020-11-23 13:30:00 2020-11-23 14:32:48 Outpatient R JOSSELYN SANCHEZ [facility] [id number] [facility] 2020-11-23 13:29:10 2020-11-23 14:32:48 [facility] MEDICAL OFFICE BUILDING 1.2.840.114 350.1.13.10 4.2.7.2.686 [id number] [facility] 2020-11-23 13:30:00 2020-11-23 13:30:00 [facility] [id number] 2020-11-23 00:00:00 2020-11-23 00:00:00 [facility] Medical Office Building 1.2.840.114 350.1.13.10 4.2.7.2.686 [id number] [facility] 2020-11-23 00:00:00 2020-11-23 00:00:00 Telephone Tylor Devlin [facility] Cipriano?[facility] 1.2.840.114 350.1.13.10 4.2.7.2.686 [id number] [facility] 2020-11-20 13:30:00 2020-11-20 13:30:00 Outpatient JOSSELYN COLON [facility] [id number] [facility] 2020-11-13 12:59:34 2020-11-13 13:52:00 Office Visit AdanKarin ruano [facility] [address] 1.2.840.114 350.1.13.10 4.2.7.2.686 [id number] [facility] 2020-11-13 13:15:00 2020-11-13 13:15:00 [facility] [id number] 2020-11-07 00:00:00 2020-11-07 00:00:00 Case Management Marisa [facility] 1.2.840.114 350.1.13.10 4.2.7.2.686 [id number] [facility] 2020-11-01 00:00:00 2020-11-01 00:00:00 Telephone Marisa Gladys [facility] Building 1.2.840.114 350.1.13.10 4.2.7.2.686 [id number] [facility] 2020-10-29 14:04:55 2020-10-29 14:19:55 Compliance Associate Visit 2, Adc Lab Marisa [facility] Building 1.2.840.114 350.1.13.10 4.2.7.2.686 [id number] [facility] 2020-10-29 13:11:40 2020-10-29 14:02:18 Office Visit Marisa Gladys [facility] Building 1.2.840.114 350.1.13.10 4.2.7.2.686 [id number] [facility] 2020-10-29 11:00:00 2020-10-29 11:00:00 Outpatient LYDIA BOTELLO [facility] [id number] [facility] 2020-10-29 00:00:00 2020-10-29 00:00:00 Orders Only Doctor Unassigned, [place] [facility] 1.2.840.114 350.1.13.10 4.2.7.2.686 [id number] [facility] 2020 14:15:00 2020 14:15:00 Outpatient KARIN THURMAN [facility] [id number] [facility] 2020-10-24 15:00:00 2020-10-24 15:00:00 Outpatient LYDIA BOTELLO [facility] [id number] [facility] 2020-10-10 00:00:00 2020-10-10 00:00:00 Telephone Josselyn Sanchez [facility] 1.2.840.114 350.1.13.10 4.2.7.2.686 [id number] [facility] 2020-10-05 14:30:00 2020-10-05 14:30:00 Outpatient EVE CALLE [facility] [id number] [facility] 2020-10-04 15:00:00 2020-10-04 15:00:00 Outpatient KARIN THURMAN [facility] [id number] [facility] 2020-10-03 14:00:00 2020-10-03 14:00:00 Outpatient GLADYS BISHOP [facility] [id number] [facility] 2020-09-26 13:45:00 2020-09-26 13:45:00 Outpatient Jaime BOLAÑOS LYDIA [facility] [id number] [facility] 2020-09-24 00:00:00 2020-09-24 00:00:00 Outpatient TYLOR REILLY HOWARD [facility] [id number] [facility] 2020-09-14 16:20:00 2020-09-14 16:20:00 Outpatient TYLOR REILLY HOWARD [facility] [id number] [facility] 2020-09-11 11:00:00 2020-09-11 11:00:00 Outpatient TYLOR REILLY HOWARD [facility] [id number] [facility] 2020-09-10 00:00:00 2020-09-10 00:00:00 Patient Secure Msg Doctor Unassigned, [place] [facility] ..840.114 350.1.13.10 4.2.7.2.686 [id number] [facility] 2020-09-06 14:45:51 2020-09-06 17:24:18 Office Visit Eve Salgado [facility] Office Building One 1..840.114 350.1.13.10 4.2.7.2.686 [id number] 2020-09-06 14:30:00 2020-09-06 14:30:00 Outpatient EVE CALLE [facility] [id number] [facility] 2020-09-06 14:30:00 2020-09-06 14:30:00 Outpatient EVE CALLE [facility] [id number] [facility] 2020-08-24 14:30:00 2020-08-24 14:30:00 Outpatient JC COLLAZO [facility] [id number] [facility] 2020-08-24 14:30:00 2020-08-24 14:30:00 Outpatient R SUBHA JC [facility] [id number] [facility] 2020-08-23 00:00:00 2020-08-23 00:00:00 Orders Only Doctor Unassigned, [place] [facility] 1.2.840.114 350.1.13.10 4.2.7.2.686 [id number] [facility] 2020-08-17 14:30:00 2020-08-17 15:32:02 Outpatient BETHEL AUSTIN [facility] [id number] [facility] 2020-08-17 14:30:00 2020-08-17 14:30:00 Outpatient BETHEL AUSTIN [facility] [id number] [facility] 2020-08-17 00:00:00 2020-08-17 00:00:00 Patient Secure Msg Doctor Unassigned, [place] [facility] 1.2.840.114 350.1.13.10 4.2.7.2.686 [id number] [facility] 2020-08-13 10:00:00 2020-08-13 10:00:00 Outpatient LYDIA BOTELLO [facility] [id number] [facility] 2020-08-07 11:00:00 2020-08-07 11:00:00 Outpatient LYDIA BOTELLO [facility] [id number] [facility] 2020-07-03 09:30:00 2020-07-03 09:30:00 Outpatient LYDIA BOTELLO [facility] [id number] [facility] 2020-06-20 19:30:00 2020-06-20 19:30:00 Outpatient LOGAN MERINO STRAHIL [facility] [id number] [facility] 2020-06-15 10:45:00 2020-06-15 10:45:00 Outpatient Jaime [facility] [id number] [facility] 2020-06-15 09:00:00 2020-06-15 09:00:00 Outpatient Jaime POSTSEUN [facility] [id number] [facility] 2020-06-11 00:00:00 2020-06-11 00:00:00 Outpatient Jaime LETTY BELLO [facility] [id number] [facility] 2020-06-05 14:15:00 2020-06-05 14:15:00 Outpatient Jaime EUGENIALETTY [facility] [id number] [facility] 2020-05-25 11:20:00 2020-05-25 11:20:00 Outpatient TYLOR REILLY HOWARD [facility] [id number] [facility] 2020-05-24 00:00:00 2020-05-24 00:00:00 Patient Secure Msg Doctor Unassigned, [place] [facility] 1.2.840.114 350.1.13.10 4.2.7.2.686 [id number] [facility] 2020-05-22 14:45:00 2020-05-22 14:45:00 Outpatient Jaime BELLOLETTY [facility] [id number] [facility] 2020-05-18 09:00:00 2020-05-18 09:00:00 Outpatient BETHEL AUSTIN [facility] [id number] [facility] 2020-05-08 14:45:00 2020-05-08 14:45:00 Outpatient RADHA ODONNELL [facility] [id number] [facility] 2020-05-08 11:15:00 2020-05-08 11:15:00 Outpatient RADHA ODONNELL [facility] [id number] [facility] 2020-05-03 10:00:00 2020-05-03 10:00:00 Outpatient ROSANNA GIBSON [facility] [id number] [facility] 2020-04-26 00:00:00 2020-04-26 00:00:00 Outpatient CODEY BISHOPCY [facility] [id number] [facility] 2020-04-26 00:00:00 2020-04-26 00:00:00 (TEL) STLMLC STLMLC [id number] [facility] 2020-04-26 00:00:00 2020-04-26 00:00:00 (TEL) STLMLC STLMLC [id number] [facility] 2020-04-24 00:00:00 2020-04-24 00:00:00 Outpatient TYLOR REILLY HOWARD [facility] [id number] [facility] 2020-04-17 00:00:00 2020-04-17 00:00:00 Outpatient TYLOR REILLY HOWARD [facility] [id number] [facility] 2020-04-09 00:00:00 2020-04-09 00:00:00 (TEL) STLMLC STLMLC [id number] [facility] 2020-04-04 00:00:00 2020-04-04 00:00:00 OFFICE VISIT ESTAB PT LEVEL 4 STLMLC STLMLC [id number] [facility] 2020-03-20 11:00:00 2020-03-20 11:00:00 Outpatient TYLOR REILLY HOWARD [facility] [id number] [facility] 2020-03-19 00:00:00 2020-03-19 00:00:00 (TEL) STLMLC STLMLC [id number] [facility] 2020-03-19 00:00:00 2020-03-19 00:00:00 OFFICE VISIT EST PT LEVEL 3 STLMLC STLMLC [id number] [facility] 2020-03-16 15:20:00 2020-03-16 15:20:00 Outpatient TYLOR REILLY HOWARD [facility] [id number] [facility] 2020-03-13 11:00:00 2020-03-13 11:00:00 Outpatient TYLOR REILLY HOWARD [facility] [id number] [facility] 2020-03-09 13:00:00 2020-03-09 13:00:00 Outpatient JANE Sandoval RAI [facility] [id number] [facility] 2020-02-15 00:00:00 2020-02-15 00:00:00 OFFICE VISIT EST PT LEVEL 3 STLMLC STLMLC [id number] [facility] 2020-02-13 09:00:00 2020-02-13 09:00:00 Outpatient R [facility] [id number] [facility] 2020-01-25 00:00:00 2020-01-25 00:00:00 OFFICE VISIT EST PT LEVEL 3 STLMLC STLMLC [id number] [facility] 2020-01-24 00:00:00 2020-01-24 00:00:00 (TEL) STLMLC STLMLC [id number] [facility] 2020-01-23 10:00:00 2020-01-23 10:00:00 Outpatient TYLOR REILLY HOWARD [facility] [id number] [facility] 2020-01-02 13:00:00 2020-01-02 13:00:00 Outpatient TYLOR REILLY HOWARD [facility] [id number] [facility] 2019-12-07 00:00:00 2019-12-07 00:00:00 OFFICE VISIT EST PT LEVEL 3 STLMLC STLMLC [id number] [facility] 2019-11-22 00:00:00 2019-11-22 00:00:00 OFFICE VISIT ESTAB PT LEVEL 4 STLMLC STLMLC [id number] [facility] 2019-11-14 00:00:00 2019-11-14 00:00:00 OFFICE VISIT EST PT LEVEL 3 STLMLC STLMLC [id number] [facility] 2019-10-26 00:00:00 2019-10-26 00:00:00 Outpatient GLADYS BISHOP [facility] [id number] [facility] 2019 13:40:00 2019 13:40:00 [place] [facility] [id number] [facility] 2019-10-18 13:30:00 2019-10-18 13:30:00 Outpatient GLADYS BISHOP [facility] [id number] [facility] 2018-09-16 14:45:00 2018-09-16 17:13:50 Outpatient RAFAEL ROSADOO [facility] [id number] [facility] 2018-05-14 11:52:00 2018-05-14 11:52:00 [facility] [id number] [facility] 2018-04-27 10:40:00 2018-04-27 10:40:00 [facility] [id number] [facility] 2018-04-27 10:07:00 2018-04-27 10:07:00 [facility] [id number] [facility] 2018-04-27 09:15:00 2018-04-27 09:15:00 [facility] [id number] [facility] 2018-04-26 13:36:00 2018-04-26 13:36:00 [facility] [id number] [facility] 2018-04-21 10:00:00 2018-04-21 10:00:00 [facility] [id number] [facility] 2017-08-24 10:31:00 2017-08-24 10:31:00 Out[place] [facility] [id number] [facility] 2017-07-22 11:05:00 2017-07-22 11:05:00 Outpatient [facility] [id number] [facility] 2017-05-26 09:15:00 2017-05-26 09:15:00 Outpatient [facility] Medicine [facility] [id number] [facility] Results Test Description Test Time Test Comments Results Result Co mments Source [facility] EpicHEMOGLOBIN [id number] 06:28:41* Test Item Value Reference Range Interpretation Comme nts HEMOGLOBIN A1c (test code = 88846) 7.6 % 4.2-5.6 H [employer] GUIDELINES FOR HGB A1C: PREDIABETES/INCREASED RISK . . . . . . . 5.7-6.4% DIAGNOSIS OF DIABETES . . . . . . . . . >=6.5% WITH CONFIRMATION OR APPROPRIATE SYMPTOMS NOTE: ASSAY MAY BE AFFECTED BY HEMOGLOBINOPATHIES (SICKLE CELL ANEMIA, S-C DISEASE, OTHERS) OR ARTIFICIALLY LOWERED BY DECREASED RED CELL SURVIVAL (HEMOLYTIC ANEMIAS, BLOOD LOSS, ETC.). CONSIDER ALTERNATE TESTING OR LABORATORY CONSULTATION. COMPREHENSIVE METABOLIC [id number] 04:47:28* Test Item Value Reference Range Interpretation Comme nts GLUCOSE (test code = 2217) 111 MG/DL 70-99 H BUN (test code = 2208) 17 MG/DL 6-20 CREATININE (test code = 2214) 0.71 MG/DL 0.60-1.30 eGFR (2020 CKD-EPI) (test code = 09043) 114 ML/MIN/1.73 >60 CALC BUN/CREAT (test code = 2235) 24 RATIO 6-28 SODIUM (test code = 2231) 141 MEQ/L 133-146 POTASSIUM (test code = 2228) 4.2 MEQ/L 3.5-5.4 CHLORIDE (test code = 2215) 105 MEQ/L 95-107 CARBON DIOXIDE (test code = 2206) 24 MEQ/L 19-31 CALCIUM (test code = 2209) 9.8 MG/DL 8.5-10.5 PROTEIN, TOTAL (test code = 222) 7.8 G/DL 6.1-8.3 ALBUMIN (test code = 220) 4.5 G/DL 3.5-5.2 CALC GLOBULIN (test code = 2240) 3.3 G/DL 1.9-3.7 CALC A/G RATIO (test code = 2234) 1.4 RATIO 1.0-2.6 BILIRUBIN, TOTAL (test code = 2207) 0.8 MG/DL <=1.2 ALKALINE PHOSPHATASE (test code = 2204) 94 U/L 40-114 AST (test code = 2218) 27 U/L 9-40 ALT (test code = 2219) 43 U/L 5-40 H LIPID [id number] 04:47:28* Test Item Value Reference Range Interpretation Comme nts CHOLESTEROL (test code = 2210) 191 MG/DL <200 TRIGLYCERIDES (test code = 2232) 134 MG/DL <150 HDL CHOLESTEROL (test code = 2220) 40 MG/DL >39 CALC LDL CHOL (test code = 2237) 126 MG/DL <100 H NOTE: CALCULATED LDL IS BASED ON VIPUL-DORAN METHOD WHICHINCLUDES ADJUSTABLE TRIGLYCERIDE:VLDL CHOLESTEROL RATIO.THIS FACTOR VARIES BY MEASURED TRIGLYCERIDE AND NON-HDLCHOLESTEROL CONCENTRATIONS WITH INCREASED CALCULATED LDL SEENIN HIGHER TRIGLYCERIDE OR LOWER NON-HDL SPECIMENS. FOR MOREINFORMATION, SEE CLIENT ANNOUNCEMENT AT [email or web address] RISK RATIO LDL/HDL (test code = 223) 3.15 RATIO <3.22 UNLESS OTHERW ISE INDICATED, ALL TESTING PERFORMED AT [facility] [address] [place] [address] ACCOUNTANT PROPERTY: MARY SWEET M.D. CLIA NUMBER [id number] [facility] [place]. [id number] COMPREHENSIVE METABOLIC [id number] 00:00:00* Test Item Value Reference Range Interpretation Comme nts GLUCOSE (test code = 2217) 111 MG/DL BUN (test code = 2208) 17 MG/DL CREATININE (test code = 2214) 0.71 MG/DL eGFR (2020 CKD-EPI) (test code = 70548) 114 ML/MIN/1.73 CALC BUN/CREAT (test code = 2235) 24 RATIO SODIUM (test code = 223) 141 MEQ/L POTASSIUM (test code = 2228) 4.2 MEQ/L CHLORIDE (test code = 2215) 105 MEQ/L CARBON DIOXIDE (test code = 2206) 24 MEQ/L CALCIUM (test code = 2209) 9.8 MG/DL PROTEIN, TOTAL (test code = 2229) 7.8 G/DL ALBUMIN (test code = 2201) 4.5 G/DL CALC GLOBULIN (test code = 2240) 3.3 G/DL CALC A/G RATIO (test code = 2234) 1.4 RATIO BILIRUBIN, TOTAL (test code = 2207) 0.8 MG/DL ALKALINE PHOSPHATASE (test code = 2204) 94 U/L AST (test code = 2218) 27 U/L ALT (test code = 2219) 43 U/L [facility] AustinHEMOGLOBIN [id number] 00:00:00* Test Item Value Reference Range Interpretation Comme nts HEMOGLOBIN A1c (test code = 86976) 7.6 % Davion BlandonLIPID [id number] 00:00:00* Test Item Value Reference Range Interpretation Comme nts CHOLESTEROL (test code = 2210) 191 MG/DL TRIGLYCERIDES (test code = 2232) 134 MG/DL HDL CHOLESTEROL (test code = 2220) 40 MG/DL CALC LDL CHOL (test code = 2237) 126 MG/DL RISK RATIO LDL/HDL (test cod e = 2238) 3.15 RATIO [facility] AustinHEMOGLOBIN [id number] 02:50:39* Test Item Value Reference Range Interpretation Comme nts HEMOGLOBIN A1c (test code = 41724) 6.2 % 4.2-5.6 H [employer] GUIDELINES FOR HGB A1C: PREDIABETES/INCREASED RISK . . . . . . . 5.7-6.4% DIAGNOSIS OF DIABETES . . . . . . . . . >=6.5% WITH CONFIRMATION OR APPROPRIATE SYMPTOMS NOTE: ASSAY MAY BE AFFECTED BY HEMOGLOBINOPATHIES (SICKLE CELL ANEMIA, S-C DISEASE, OTHERS) OR ARTIFICIALLY LOWERED BY DECREASED RED CELL SURVIVAL (HEMOLYTIC ANEMIAS, BLOOD LOSS, ETC.). CONSIDER ALTERNATE TESTING OR LABORATORY CONSULTATION. LIPID [id number] 02:35:56* Test Item Value Reference Range Interpretation [...] SPECIMENS. FOR MOREINFORMATION, SEE CLIENT ANNOUNCEMENT AT [email or web address] RISK RATIO LDL/HDL (test code = 2238) 3.46 RATIO <3.22 H COMPREHENSIVE METABOLIC [id number] 02:35:56* Test Item Value Reference Range Interpretation Comme nts GLUCOSE (test code = 2216) 84 MG/DL 70-99 BUN (test code = 2207) 14 MG/DL 6-20 CREATININE (test code = 2213) 0.87 MG/DL 0.60-1.30 eGFR (2020 CKD-EPI) (test code = 04306) 90 ML/MIN/1.73 >60 CALC BUN/CREAT (test code = 5) 16 RATIO 6-28 SODIUM (test code = 2230) 141 MEQ/L 133-146 POTASSIUM (test code = 2228) 3.7 MEQ/L 3.5-5.4 CHLORIDE (test code = 2215) 104 MEQ/L 95-107 CARBON DIOXIDE (test code = 2206) 25 MEQ/L 19-31 CALCIUM (test code = 2209) 10.0 MG/DL 8.5-10.5 PROTEIN, TOTAL (test code = 2228) 7.4 G/DL 6.1-8.3 ALBUMIN (test code = 2200) 4.3 G/DL 3.5-5.2 CALC GLOBULIN (test code = 2240) 3.1 G/DL 1.9-3.7 CALC A/G RATIO (test code = 223) 1.4 RATIO 1.0-2.6 BILIRUBIN, TOTAL (test code = 2206) 0.7 MG/DL <=1.2 ALKALINE PHOSPHATASE (test code = 2203) 90 U/L 40-114 AST (test code = 2218) 24 U/L 9-40 ALT (test code = 2219) 42 U/L 5-40 H UNLESS OTHERWISE INDICATED, ALL TESTING PERFORMED AT [facility] [address] [place] [address] ACCOUNTANT PROPERTY: MARY SWEET M.D. CLIA NUMBER [id number] [facility] [place]. [id number] HEMOGLOBIN [id number] 00:00:00* Test Item Value Reference Range Interpretation Comme nts HEMOGLOBIN A1c (test code = 66200) 6.2 % [facility] AustinLIPID [id number] 00:00:00* Test Item Value Reference Range Interpretation Comme nts CHOLESTEROL (test code = 2210) 190 MG/DL TRIGLYCERIDES (test code = 2232) 141 MG/DL HDL CHOLESTEROL (test code = 2220) 37 MG/DL CALC LDL CHOL (test code = 2237) 128 MG/DL RISK RATIO LDL/HDL (test cod e = 2238) 3.46 RATIO Davion BlandonCOMPREHENSIVE METABOLIC [id number] 00:00:00* Test Item Value Reference Range Interpretation Comme nts GLUCOSE (test code = 2217) 84 MG/DL BUN (test code = 2208) 14 MG/DL CREATININE (test code = 2214) 0.87 MG/DL eGFR (2020 CKD-EPI) (test co de = 24456) 90 ML/MIN/1.73 CALC BUN/CREAT (test code = 2235) 16 RATIO SODIUM (test code = 2231) 141 MEQ/L POTASSIUM (test code = 2228) 3.7 MEQ/L CHLORIDE (test code = 2215) 104 MEQ/L CARBON DIOXIDE (test code = 2206) 25 MEQ/L CALCIUM (test code = 2209) 10.0 MG/DL PROTEIN, TOTAL (test code = 2229) 7.4 G/DL ALBUMIN (test code = 2201) 4.3 G/DL CALC GLOBULIN (test code = 2240) 3.1 G/DL CALC A/G RATIO (test code = 2234) 1.4 RATIO BILIRUBIN, TOTAL (test code = 2207) 0.7 MG/DL ALKALINE PHOSPHATASE (test code = 2204) 90 U/L AST (test code = 2218) 24 U/L ALT (test code = 2219) 42 U/L Davion BlandonHEMOGLOBIN [id number] 00:00:00* Test Item Value Reference Range Interpretation Comme nts HEMOGLOBIN A1c (test code = 18001) 6.2 % [facility] AustinLIPID [id number] 00:00:00* Test Item Value Reference Range Interpretation Comme nts CHOLESTEROL (test code = 2210) 190 MG/DL TRIGLYCERIDES (test code = 2232) 141 MG/DL HDL CHOLESTEROL (test code = 2220) 37 MG/DL CALC LDL CHOL (test code = 2237) 128 MG/DL RISK RATIO LDL/HDL (test cod e = 2238) 3.46 RATIO Davion BlandonCOMPREHENSIVE METABOLIC [id number] 00:00:00* Test Item Value Reference Range Interpretation Comme nts GLUCOSE (test code = 2217) 84 MG/DL BUN (test code = 2208) 14 MG/DL CREATININE (test code = 2214) 0.87 MG/DL eGFR (2020 CKD-EPI) (test co de = 97847) 90 ML/MIN/1.73 CALC BUN/CREAT (test code = 2235) 16 RATIO SODIUM (test code = 2231) 141 MEQ/L POTASSIUM (test code = 2228) 3.7 MEQ/L CHLORIDE (test code = 2215) 104 MEQ/L CARBON DIOXIDE (test code = 2206) 25 MEQ/L CALCIUM (test code = 2209) 10.0 MG/DL PROTEIN, TOTAL (test code = 2229) 7.4 G/DL ALBUMIN (test code = 2201) 4.3 G/DL CALC GLOBULIN (test code = 2240) 3.1 G/DL CALC A/G RATIO (test code = 2234) 1.4 RATIO BILIRUBIN, TOTAL (test code = 2207) 0.7 MG/DL ALKALINE PHOSPHATASE (test code = 2204) 90 U/L AST (test code = 2218) 24 U/L ALT (test code = 2219) 42 U/L Davion BlandonHEMOGLOBIN [id number] 00:00:00* Test Item Value Reference Range Interpretation Comme nts HEMOGLOBIN A1c (test code = 94561) 6.2 % Davion BlandonLIPID [id number] 00:00:00* Test Item Value Reference Range Interpretation Comme nts CHOLESTEROL (test code = 2210) 190 MG/DL TRIGLYCERIDES (test code = 2232) 141 MG/DL HDL CHOLESTEROL (test code = 2220) 37 MG/DL CALC LDL CHOL (test code = 2237) 128 MG/DL RISK RATIO LDL/HDL (test cod e = 2238) 3.46 RATIO Davion BlandonCOMPREHENSIVE METABOLIC [id number] 00:00:00* Test Item Value Reference Range Interpretation Comme nts GLUCOSE (test code = 2217) 84 MG/DL BUN (test code = 2208) 14 MG/DL CREATININE (test code = 2214) 0.87 MG/DL eGFR (2020 CKD-EPI) (test co de = 00990) 90 ML/MIN/1.73 CALC BUN/CREAT (test code = 2235) 16 RATIO SODIUM (test code = 2231) 141 MEQ/L POTASSIUM (test code = 2228) 3.7 MEQ/L CHLORIDE (test code = 2215) 104 MEQ/L CARBON DIOXIDE (test code = 2206) 25 MEQ/L CALCIUM (test code = 2209) 10.0 MG/DL PROTEIN, TOTAL (test code = 2229) 7.4 G/DL ALBUMIN (test code = 2201) 4.3 G/DL CALC GLOBULIN (test code = 2240) 3.1 G/DL CALC A/G RATIO (test code = 2234) 1.4 RATIO BILIRUBIN, TOTAL (test code = 2207) 0.7 MG/DL ALKALINE PHOSPHATASE (test code = 2204) 90 U/L AST (test code = 2218) 24 U/L ALT (test code = 2219) 42 U/L [facility] Pro METABOLIC PANEL ([id number] 00:07:27* Test Item Value Reference Range Interpretation Comme nts NA (test code = 0851280836) 140 mmol/L 135-145 K (test code = 1629853079) 4.1 mmol/L 3.5-5.0 CL (test code = 1885882845) 104 mmol/L 98-108 CO2 TOTAL (test code = 1680289757) 23 mmol/L 23-31 AGAP (test code = 8871341150) 13 2-16 BUN (test code = 0669000048) 10 mg/dL 7-23 GLUCOSE (test code = 1747870546) 148 mg/dL 70-110 H CREATININE (test code = 5507648281) 0.89 mg/dL 0.50-1.04 TOTAL BILI (test code = 3459473729) 1.1 mg/dL 0.1-1.1 CALCIUM (test code = 0099328450) 9.7 mg/dL 8.6-10.6 T PROTEIN (test code = 2089960420) 9.7 g/dL 6.3-8.2 H ALBUMIN (test code = 6125415762) 4.9 g/dL 3.5-5.0 ALK PHOS (test code = 1953496556) 84 U/L 34-122 ALTv (test code = 1742-6) 54 U/L 5-35 H AST(SGOT) (test code = 2732165608) 41 U/L 13-40 H eGFR (test code = 8582806658) 72.6 mL/min/1.73m2 BEV (test code = BEV) [...] imaging tests). Lab Interpretation (test code = 51211-4) [id number] Test Item Value Reference Range Interpretation Comme nts LIPASE (test code = 6483094264) 127 U/L 0-220 Lab Interpretation (test cod e = 09097-0) Normal [facility] WITH [id number] 23:49:06* Test Item Value Reference Range Interpretation Comme nts WBC (test code = 6690-2) 12.28 See_Comment H [Automated messa ge] The system [...] 34.8 g/dL 31.6-35.1 RDW-SD (test code = 55473-9) 40.4 fL 39.0-49.9 RDW-CV (test code = 788-0) 12.4 % 12.0-15.5 PLT (test code = 777-3) 278 See_Comment [Automated messa ge] The system which generated this result transmitted reference range: 166 - 358 10*3/?L. The reference range was not used to interpret this result as normal/abnormal. MPV (test code = 10268-8) 11.8 fL 9.5-12.9 NRBC/100 WBC (test code = 8560331965) 0.0 See_Comment [Automated me ssage] The system which generated this result transmitted reference range: 0.0 - 10.0 /100 WBCs. The reference range was not used to interpret this result as normal/abnormal. NRBC x10^3 (test code = 1881371210) See_Comment [Automated messa ge] The system which generated this result transmitted reference range: 10*3/?L. The reference range was not used to interpret this result as normal/abnormal. GRAN MAT (NEUT) % (test code = 770-8) 61.9 % IMM GRAN % (test code = 0608471520) 0.40 % LYMPH % (test code = 736-9) 26.8 % MONO % (test code = 5905-5) 8.2 % EOS % (test code = 713-8) 2.0 % BASO % (test code = 706-2) 0.7 % GRAN MAT x10^3(ANC) (test code = 3287608619) 7.60 10*3/uL 1.88-7.09 H IMM GRAN x10^3 (test code = 5342390114) 0.05 10*3/uL 0.00-0.06 LYMPH x10^3 (test code = 731-0) 3.29 10*3/uL 1.32-3.29 MONO x10^3 (test code = 742-7) 1.01 10*3/uL 0.33-0.92 H EOS x10^3 (test code = 711-2) 0.24 10*3/uL 0.03-0.39 BASO x10^3 (test code = 704-7) 0.09 10*3/uL 0.01-0.07 H Lab Interpretation (test code = 25458-8) Abnormal [facility] [id number] 23:19:00* Test Item Value Reference Range Interpretation Comme [facility] POCT PREG (test code = 1605) Negative On board controls acceptable with C Line (test code = 3574) Yes POCT PREG LOT # (test code = [id number] POCT PREG TEST DATE ( test code = 3576) 04/08/2024 Lab Interpretation (test cod e = 07969-1) Normal [facility] HEMOGLOBIN A1C [id number] 17:01:00* Test Item Value Reference Range Interpretation Comme [facility] POCT HBA1C (test code = 4548-4) 7.3 % 4-6 A Lab Interpretation (test cod e = 42829-0) Abnormal [facility] HEMOGLOBIN A1C [id number] 17:01:00* Test Item Value Reference Range Interpretation Comme nts POCT HBA1C (test code = 4548-4) 7.3 % 4-6 A Lab Interpretation (test cod e = 74271-1) Abnormal [facility] SARS-COV-2 ANTIGEN (BINAX NOW)2022-03-02 19:45:00* Test Item Value Reference Range Interpretation Comme nts POCT SARS-COV-2 ANTIGEN (isac t code = 22086-3) Positive Not Detected A On board controls acceptable with C Line (test code = 3574) Yes Lab Interpretation (test cod e = 73992-1) Abnormal [facility] [id number] 22:17:34* Test Item Value Reference Range Interpretation Comme nts FREE T4 (test code = 8586025547) See_Comment [Automated messa ge] The system which generated this result transmitted reference range: 0.78 - 2.20 ng/dL:. The reference range was not used to interpret this result as normal/abnormal. Lab Interpretation (test code = 32019-7) [facility]TOTAL CHOLESTEROL, TRIGLYCERIDES, HDL)2022-01-28 21:59:44* Test Item Value Reference Range Interpretation Comme nts CHOL (test code = 0613893007) 212 mg/dL 120-200 H HDL (test code = 2323611424) 37 mg/dL See_Comment L [Automated messa ge] The system which generated this result transmitted reference range: >=50. The reference range was not used to interpret this result as normal/abnormal. HDLC RATIO (test code = 2127750637) See_Comment H [Automated messa ge] The system which generated this result transmitted reference range: <=4.5. The reference range was not used to interpret this result as normal/abnormal. TRIG (test code = 7527504177) 174 mg/dL 30-170 H LDL CHOL (test code = 48030-7) 140 mg/dL See_Comment [Automated messa ge] The system which generated this result transmitted reference range: <=160. The reference range was not used to interpret this result as normal/abnormal. VLDL (test code = 2540202078) 35 mg/dL 5-60 Lab Interpretation (test code = 80761-2) [facility]TOTAL CHOLESTEROL, TRIGLYCERIDES, HDL)2022-01-28 21:59:44* Test Item Value Reference Range Interpretation Comme nts CHOL (test code = 6156010902) 212 mg/dL 120-200 H HDL (test code = 4088700011) 37 mg/dL See_Comment L [Automated messa ge] The system which generated this result transmitted reference range: >=50. The reference range was not used to interpret this result as normal/abnormal. HDLC RATIO (test code = 7301353518) See_Comment H [Automated messa ge] The system which generated this result transmitted reference range: <=4.5. The reference range was not used to interpret this result as normal/abnormal. TRIG (test code = 9476969233) 174 mg/dL 30-170 H LDL CHOL (test code = 87613-0) 140 mg/dL See_Comment [Automated messa ge] The system which generated this result transmitted reference range: <=160. The reference range was not used to interpret this result as normal/abnormal. VLDL (test code = 8455570121) 35 mg/dL 5-60 Lab Interpretation (test code = 56270-1) [facility]TOTAL CHOLESTEROL, TRIGLYCERIDES, HDL)2022-01-28 21:59:44* Test Item Value Reference Range Interpretation Comme nts CHOL (test code = 6908332164) 212 mg/dL 120-200 H HDL (test code = 9930622040) 37 mg/dL See_Comment L [Automated messa ge] The system which generated this result transmitted reference range: >=50. The reference range was not used to interpret this result as normal/abnormal. HDLC RATIO (test code = 7828904419) See_Comment H [Automated messa ge] The system which generated this result transmitted reference range: <=4.5. The reference range was not used to interpret this result as normal/abnormal. TRIG (test code = 7278885611) 174 mg/dL 30-170 H LDL CHOL (test code = 14930-3) 140 mg/dL See_Comment [Automated messa ge] The system which generated this result transmitted reference range: <=160. The reference range was not used to interpret this result as normal/abnormal. VLDL (test code = 3997650030) 35 mg/dL 5-60 Lab Interpretation (test code = 52196-7) Abnormal [facility] WITH [id number] 20:29:44* Test Item Value Reference Range Interpretation [...] g/dL 31.6-35.1 H RDW-SD (test code = 17391-0) 37.2 fL 39.0-49.9 L RDW-CV (test code = 788-0) 11.9 % 12.0-15.5 L PLT (test code = 777-3) See_Comment [Automated messa ge] The system which generated this result transmitted reference range: 166 - 358 10*3/?L. The reference range was not used to interpret this result as normal/abnormal. MPV (test code = 46141-7) 11.7 fL 9.5-12.9 NRBC/100 WBC (test code = 6460500291) See_Comment [Automated me ssage] The system which generated this result transmitted reference range: 0.0 - 10.0 /100 WBCs. The reference range was not used to interpret this result as normal/abnormal. NRBC x10^3 (test code = 3815548853) See_Comment [Automated messa ge] The system which generated this result transmitted reference range: 10*3/?L. The reference range was not used to interpret this result as normal/abnormal. GRAN MAT (NEUT) % (test code = 770-8) 65.1 % IMM GRAN % (test code = 9967404086) 0.10 % LYMPH % (test code = 736-9) 27.3 % MONO % (test code = 5905-5) 5.6 % EOS % (test code = 713-8) 1.2 % BASO % (test code = 706-2) 0.7 % GRAN MAT x10^3(ANC) (test code = 6022943896) 5.57 10*3/uL 1.88-7.09 IMM GRAN x10^3 (test code = 4482066157) 0.00-0.06 LYMPH x10^3 (test code = 731-0) 2.34 10*3/uL 1.32-3.29 MONO x10^3 (test code = 742-7) 0.48 10*3/uL 0.33-0.92 EOS x10^3 (test code = 711-2) 0.10 10*3/uL 0.03-0.39 BASO x10^3 (test code = 704-7) 0.06 10*3/uL 0.01-0.07 Lab Interpretation (test code = 62506-1) Abnormal [facility] WITH [id number] 20:29:44* Test Item Value Reference Range Interpretation [...] g/dL 31.6-35.1 H RDW-SD (test code = 54488-5) 37.2 fL 39.0-49.9 L RDW-CV (test code = 788-0) 11.9 % 12.0-15.5 L PLT (test code = 777-3) See_Comment [Automated messa ge] The system which generated this result transmitted reference range: 166 - 358 10*3/?L. The reference range was not used to interpret this result as normal/abnormal. MPV (test code = 89964-4) 11.7 fL 9.5-12.9 NRBC/100 WBC (test code = 1196146305) See_Comment [Automated AuditFile ssage] The system which generated this result transmitted reference range: 0.0 - 10.0 /100 WBCs. The reference range was not used to interpret this result as normal/abnormal. NRBC x10^3 (test code = 4573852628) See_Comment [Automated messa ge] The system which generated this result transmitted reference range: 10*3/?L. The reference range was not used to interpret this result as normal/abnormal. GRAN MAT (NEUT) % (test code = 770-8) 65.1 % IMM GRAN % (test code = 9534817182) 0.10 % LYMPH % (test code = 736-9) 27.3 % MONO % (test code = 5905-5) 5.6 % EOS % (test code = 713-8) 1.2 % BASO % (test code = 706-2) 0.7 % GRAN MAT x10^3(ANC) (test code = 1775693989) 5.57 10*3/uL 1.88-7.09 IMM GRAN x10^3 (test code = 3234001045) 0.00-0.06 LYMPH x10^3 (test code = 731-0) 2.34 10*3/uL 1.32-3.29 MONO x10^3 (test code = 742-7) 0.48 10*3/uL 0.33-0.92 EOS x10^3 (test code = 711-2) 0.10 10*3/uL 0.03-0.39 BASO x10^3 (test code = 704-7) 0.06 10*3/uL 0.01-0.07 Lab Interpretation (test code = 81048-4) Abnormal [facility] WITH [id number] 20:29:44* Test Item Value Reference Range Interpretation [...] g/dL 31.6-35.1 H RDW-SD (test code = 63122-6) 37.2 fL 39.0-49.9 L RDW-CV (test code = 788-0) 11.9 % 12.0-15.5 L PLT (test code = 777-3) See_Comment [Automated messa ge] The system which generated this result transmitted reference range: 166 - 358 10*3/?L. The reference range was not used to interpret this result as normal/abnormal. MPV (test code = 71249-9) 11.7 fL 9.5-12.9 NRBC/100 WBC (test code = 5489223263) See_Comment [Automated me ssage] The system which generated this result transmitted reference range: 0.0 - 10.0 /100 WBCs. The reference range was not used to interpret this result as normal/abnormal. NRBC x10^3 (test code = 1515013063) See_Comment [Automated messa ge] The system which generated this result transmitted reference range: 10*3/?L. The reference range was not used to interpret this result as normal/abnormal. GRAN MAT (NEUT) % (test code = 770-8) 65.1 % IMM GRAN % (test code = 0924182736) 0.10 % LYMPH % (test code = 736-9) 27.3 % MONO % (test code = 5905-5) 5.6 % EOS % (test code = 713-8) 1.2 % BASO % (test code = 706-2) 0.7 % GRAN MAT x10^3(ANC) (test code = 1320336401) 5.57 10*3/uL 1.88-7.09 IMM GRAN x10^3 (test code = 1801641707) 0.00-0.06 LYMPH x10^3 (test code = 731-0) 2.34 10*3/uL 1.32-3.29 MONO x10^3 (test code = 742-7) 0.48 10*3/uL 0.33-0.92 EOS x10^3 (test code = 711-2) 0.10 10*3/uL 0.03-0.39 BASO x10^3 (test code = 704-7) 0.06 10*3/uL 0.01-0.07 Lab Interpretation (test code = 13106-3) Abnormal [facility] HEMOGLOBIN A1C [id number] 17:28:00* Test Item Value Reference Range Interpretation Comme [facility] POCT HBA1C (test code = 4548-4) 11.0 % 4-6 A Lab Interpretation (test cod e = 29278-5) Abnormal [facility] HEMOGLOBIN A1C [id number] 17:28:00* Test Item Value Reference Range Interpretation Comme [facility] POCT HBA1C (test code = 4548-4) 11.0 % 4-6 A Lab Interpretation (test cod e = 47834-6) Abnormal [facility] SARS-COV-2 ANTIGEN (BINAX NOW)2021-10-10 16:37:00* Test Item Value Reference Range Interpretation Comme nts POCT SARS-COV-2 ANTIGEN (isac t code = 5076) Not Detected Not Detected On board controls acceptable with C Line (test code = 3574) Yes Lab Interpretation (test cod e = 93726-2) Normal [facility] HEMOGLOBIN A1C [id number] 21:17:00* Test Item Value Reference Range Interpretation Comme nts POCT HBA1C (test code = 4548-4) 10.4 % 4-6 A Lab Interpretation (test cod e = 56846-6) Abnormal [facility] HEMOGLOBIN A1C [id number] 21:17:00* Test Item Value Reference Range Interpretation Comme nts POCT HBA1C (test code = 4548-4) 10.4 % 4-6 A Lab Interpretation (test cod e = 39036-2) [facility] [id number] 00:00:00* Test Item Value Reference Range Interpretation Comme nts HEMOGLOBIN A1c (test code = 41658) 14.7 % Davion F AustinCOMPREHENSIVE METABOLIC [id number] 00:00:00* Test Item Value Reference Range Interpretation Comme nts GLUCOSE (test code = 2217) 386 MG/DL BUN (test code = 2208) 14 MG/DL CREATININE (test code = 2214) 0.64 MG/DL eGFR AMER. (test cod e = 92846) 139 ML/MIN/1.73 eGFR NON- AMER. (test code = 42401) 120 ML/MIN/1.73 CALC BUN/CREAT (test code = 2235) 22 RATIO SODIUM (test code = 2231) 137 MEQ/L POTASSIUM (test code = 2228) 4.2 MEQ/L CHLORIDE (test code = 2215) 97 MEQ/L CARBON DIOXIDE (test code = 2206) 23 MEQ/L CALCIUM (test code = 2209) 9.9 MG/DL PROTEIN, TOTAL (test code = 2229) 8.6 G/DL ALBUMIN (test code = 2201) 4.7 G/DL CALC GLOBULIN (test code = 2240) 3.9 G/DL CALC A/G RATIO (test code = 2234) 1.2 RATIO BILIRUBIN, TOTAL (test code = 2207) 0.9 MG/DL ALKALINE PHOSPHATASE (test code = 2204) 156 U/L AST (test code = 2218) 18 U/L ALT (test code = 2219) 27 U/L [facility] AustinHEMOGLOBIN [id number] 00:00:00* Test Item Value Reference Range Interpretation Comme nts HEMOGLOBIN A1c (test code = 61445) 14.7 % [facility] Pro AustinCOMPREHENSIVE METABOLIC [id number] 00:00:00* Test Item Value Reference Range Interpretation Comme nts GLUCOSE (test code = 2217) 386 MG/DL BUN (test code = 2208) 14 MG/DL CREATININE (test code = 2214) 0.64 MG/DL eGFR AMER. (test cod e = 22840) 139 ML/MIN/1.73 eGFR NON- AMER. (test code = 77503) 120 ML/MIN/1.73 CALC BUN/CREAT (test code = 2235) 22 RATIO SODIUM (test code = 2231) 137 MEQ/L POTASSIUM (test code = 2228) 4.2 MEQ/L CHLORIDE (test code = 2215) 97 MEQ/L CARBON DIOXIDE (test code = 2206) 23 MEQ/L CALCIUM (test code = 2209) 9.9 MG/DL PROTEIN, TOTAL (test code = 2229) 8.6 G/DL ALBUMIN (test code = 2201) 4.7 G/DL CALC GLOBULIN (test code = 2240) 3.9 G/DL CALC A/G RATIO (test code = 2234) 1.2 RATIO BILIRUBIN, TOTAL (test code = 2207) 0.9 MG/DL ALKALINE PHOSPHATASE (test code = 2204) 156 U/L AST (test code = 2218) 18 U/L ALT (test code = 2219) 27 U/L [facility] Pro AustinHEMOGLOBIN [id number] 00:00:00* Test Item Value Reference Range Interpretation Comme nts HEMOGLOBIN A1c (test code = 36905) 14.7 % [facility] Pro AustinCOMPREHENSIVE METABOLIC [id number] 00:00:00* Test Item Value Reference Range Interpretation Comme nts GLUCOSE (test code = 2217) 386 MG/DL BUN (test code = 2208) 14 MG/DL CREATININE (test code = 2214) 0.64 MG/DL eGFR AMER. (test cod e = 61040) 139 ML/MIN/1.73 eGFR NON- AMER. (test code = 82460) 120 ML/MIN/1.73 CALC BUN/CREAT (test code = 2235) 22 RATIO SODIUM (test code = 2231) 137 MEQ/L POTASSIUM (test code = 2228) 4.2 MEQ/L CHLORIDE (test code = 2215) 97 MEQ/L CARBON DIOXIDE (test code = 2206) 23 MEQ/L CALCIUM (test code = 2209) 9.9 MG/DL PROTEIN, TOTAL (test code = 2229) 8.6 G/DL ALBUMIN (test code = 2201) 4.7 G/DL CALC GLOBULIN (test code = 2240) 3.9 G/DL CALC A/G RATIO (test code = 2234) 1.2 RATIO BILIRUBIN, TOTAL (test code = 2207) 0.9 MG/DL ALKALINE PHOSPHATASE (test code = 2204) 156 U/L AST (test code = 2218) 18 U/L ALT (test code = 2219) 27 U/L Davion BlandonVAGINAL PATHOGENS DNA [id number] 00:00:00* Test Item Value Reference Range Interpretation Comme nts MICHELA SPECIES (test code = 12386) POSITIVE G. VAGINALIS (test code = 90395) NEGATIVE T. VAGINALIS (test code = 88847) NEGATIVE Davion BlandonHIV AB/AG COMBO RFLX [id number] 00:00:00* Test Item Value Reference Range Interpretation Comme nts HIV 1/2 4TH GEN, RFLX CONF ( test code = 3514) NON-REACTIVE Davion [id number] 00:00:00* Test Item Value Reference Range Interpretation Comme nts RPR RESULT (test code = 3501) NON-REACTIVE RPR TITER (test code = 3500) NOT INDIC. TITER Davion BlandonGC AND CHLAMYDIA, AMPLIFIED, [id number] 00:00:00* Test Item Value Reference Range Interpretation Comme nts GONORRHEA, TMA (test code = 40409) NEGATIVE CHLAMYDIA, TMA (test code = 44226) NEGATIVE Davion BlandonVAGINAL PATHOGENS DNA [id number] 00:00:00* Test Item Value Reference Range Interpretation Comme nts MICHELA SPECIES (test code = ) POSITIVE G. VAGINALIS (test code = 76815) NEGATIVE T. VAGINALIS (test code = 82344) NEGATIVE Davion BlandonHIV AB/AG COMBO RFLX [id number] 00:00:00* Test Item Value Reference Range Interpretation Comme nts HIV 1/2 4TH GEN, RFLX CONF ( test code = 3514) NON-REACTIVE [facility] Pro [id number] 00:00:00* Test Item Value Reference Range Interpretation Comme nts RPR RESULT (test code = 3501) NON-REACTIVE RPR TITER (test code = 3500) NOT INDIC. TITER Davion Pro AustinGC AND CHLAMYDIA, AMPLIFIED, [id number] 00:00:00* Test Item Value Reference Range Interpretation Comme nts GONORRHEA, TMA (test code = 41604) NEGATIVE CHLAMYDIA, TMA (test code = 82441) NEGATIVE Davion BlandonVAGINAL PATHOGENS DNA [id number] 00:00:00* Test Item Value Reference Range Interpretation Comme nts MIHCELA SPECIES (test code = ) POSITIVE G. VAGINALIS (test code = 24149) NEGATIVE T. VAGINALIS (test code = 23618) NEGATIVE Dav[facility] Pro AustinHIV AB/AG COMBO RFLX [id number] 00:00:00* Test Item Value Reference Range Interpretation Comme nts HIV 1/2 4TH GEN, RFLX CONF ( test code = 3514) NON-REACTIVE [facility] Pro [id number] 00:00:00* Test Item Value Reference Range Interpretation Comme nts RPR RESULT (test code = 3501) NON-REACTIVE RPR TITER (test code = 3500) NOT INDIC. TITER Davion Pro AustinGC AND CHLAMYDIA, AMPLIFIED, [id number] 00:00:00* Test Item Value Reference Range Interpretation Comme nts GONORRHEA, TMA (test code = 89616) NEGATIVE CHLAMYDIA, TMA (test code = 43625) NEGATIVE Davion [id number] 06:40:00* Test Item Value Reference Range Interpretation Comme nts GLUBED (test code = GLUBED) 92 mg/dL 65-110 N [id number] 23:29:00* Test Item Value Reference Range Interpretation Comme nts GLUBED (test code = GLUBED) 98 mg/dL 65-110 N [id number] 06:39:00* Test Item Value Reference Range Interpretation Comme nts GLUBED (test code = GLUBED) 94 mg/dL 65-110 N [id number] 22:51:00* Test Item Value Reference Range Interpretation Comme nts GLUBED (test code = GLUBED) 112 mg/dL 65-110 H [id number] 19:02:00* Test Item Value Reference Range Interpretation Comme nts GLUBED (test code = GLUBED) 76 mg/dL 65-110 N [id number] 13:24:00* Test Item Value Reference Range Interpretation Comme nts GLUBED (test code = GLUBED) 80 mg/dL 65-110 N [id number] 07:43:00* Test Item Value Reference Range Interpretation Comme nts GLUBED (test code = GLUBED) 86 mg/dL 65-110 N [id number] 21:39:00* Test Item Value Reference Range Interpretation Comme nts GLUBED (test code = GLUBED) 111 mg/dL 65-110 H [id number] 18:57:00* Test Item Value Reference Range Interpretation Comme nts GLUBED (test code = GLUBED) 103 mg/dL 65-110 N CHEMISTRY 7 [id number] 13:47:00* Test Item Value Reference Range Interpretation [...] CA) 8.5 mg/dL 8.4-10.2 N CBC W/AUTO [id number] 13:29:00* Test Item Value Reference Range Interpretation [...] code = PLTMR) NORMAL NORMAL SOFT TISSUE,NOT DANNIE/MASS/[id number] 13:23:00 RUN DATE: 12/21/18 [facility] PAGE 1 RUN TIME: 1410 Specimen Inquiry RUN USER: INTERFACE --------- ---PATIENT: STACY THOMPSON LOC: U #: [id number] AGE/SX: 28/F ROOM: [facility] RE12/15/18REGDR: Arpan Min MD : 86 BED: A DIS: STATUS: ADM IN TLOC: SPEC #: [id number] RECD: 12/20/18 STATUS: SOUT REQ #: [id number] ARELIS: 12/17/18- SUBM DR: Arpan Min MD ENTERED: 12/20/18 SP TYPE: SOFTNOTMLD OTHR DR: Jesús Moreau MD, Jill C MD Nasser, Dean A MDORDERED: LEVEL IV CODES: [id number] - SOFT TISSUES, N COPIES TO: Jesús Moreau MD [address] [address] Lianet Weir MD [address] [facility] [address] [place], [place] [id number] [email or web address] [place] [address] [place], [place] [id number] Arpan Min MD [address] [facility] [address] [place], [place] [id number] PROCEDURES: LEVELIV (Incomplete) TISSUES: SOFT TISSUES, NOS - EPIPLOACA WITH ABSCESS/SIGMOID/UTERUS,CERVIX,TUBES ANDOVARIES CLINICAL HISTORY 28 year old, tubo-ovarian abscess (kr) CONTINUED ON NEXT PAGE ------- -----RUN DATE: 12/21/18 [facility] PAGE 2 RUN TIME: 1410 Specimen Inquiry RUN USER: INTERFACE NEEL Holman #: [id number]: STACY THOMPSON #[id number] (Continued) FINAL DIAGNOSIS Epiploica with abscess, excision: - fibroadipose tissue with acute, subacute and chronic inflammation with foreign body giant cell reaction Sigmoid, resection: - diverticular disease - acute and chronic serositis with fibrous adhesions [place], bilateral fallopian tubes and ovaries, hysterectomy and [...] adhesions, and ovarian serosal abscesses CPT code(s): 32583 x2, 50523 lsh 12/21/18 GROSS DESCRIPTION ANATOMIC SOURCE OF TISSUE (per Requisition): 1. Epiploica with abscess 2. Sigmoid 3. Uterus, cervix, bilateral fallopian tubes and ovaries Each specimen is labeled with the patient's name and medical record number. Specimen #1 is designated "epiploica with abscess" and consists of a2.5 x 1.5 x 1.0 cm pink-yellow, lobulated portion of adipose tissue with overlying exudate. The cutsurfaces are pale yellow and firm with focal [...] material. The mucosa is ariza, focally hemorrhagic andslightly edematous with a few diverticula, 0.3 to 0.6 cm. The muscularis propria and ariza, firm, andthickened. There are no perforation sites or definite abscesses. However, within the pericolonic adipose tissue there are focal CONTINUED ON NEXT PAGE RUN DATE: 12/21/18 [facility] PAGE 3 RUNTIME: 1410 Specimen Inquiry RUN USER: INTERFACE SPEC #: [id number] PATIENT: STACY THOMPSON #[id number] (Continued) GROSS DESCRIPTION (Continued) areas of induration, fibrosis and possible fat necrosis. Section code: B1 - donuts, B2 through B6 - business process representative sections of bowel with possible diverticular [...] serosal adhesions, C5 and C6 - business process representative sections of small adnexa, C7 through C9 - business process representative sections of large adnexa. diana 12/20/18 @ 1125 Signed Diana James MD 12/21/18 1323 END OF REPORT [id number] 13:17:00* Test Item Value Reference Range Interpretation Comme nts GLUBED (test code = GLUBED) 89 mg/dL 65-110 N - XR ABDOMEN [id number] 10:26:00Patient Name: STACY THOMPSON Unit No: [id number] EXAMS: CPT CODE: [id number] XR ABDOMEN 2V 37391 ABDOMINAL RADIOGRAPHS-ERECT AND SUPINE COMPARISON: CT abdomen [...] Hamilton García MD CC: Lianet hickey Technologist: Gabriella Alvarado RT Trnscrbd D/ (1026) t.YONISR.AJ13 Orig Print D/T: S: 12/21/2018 (1029) [facility] NAME: DONNAJOSE ALEJANDROSTACY Radiology Department PHYS: Arpan Wallace MD [address] : 1990 AGE: 28 SEX: F [place] [address] LOC: F.2650 A PHONE #: [phone] EXAM DATE: 12/21/2018 STATUS: ADM IN FAX #: [phone] RAD NO: Page 1 Signed [id number] 06:40:00* Test Item Value Reference Range Interpretation Comme nts GLUBED (test code = GLUBED) 117 mg/dL 65-110 H [id number] 00:48:00* Test Item Value Reference Range Interpretation Comme nts GLUBED (test code = GLUBED) 153 mg/dL 65-110 H [id number] 18:32:00* Test Item Value Reference Range Interpretation Comme nts GLUBED (test code = GLUBED) 83 mg/dL 65-110 N [id number] 12:58:00* Test Item Value Reference Range Interpretation Comme nts GLUBED (test code = GLUBED) 153 mg/dL 65-110 H CHEMISTRY 7 [id number] 05:45:00* Test Item Value Reference Range Interpretation [...] CA) 8.1 mg/dL 8.4-10.2 L CBC W/AUTO [id number] 05:30:00* Test Item Value Reference Range Interpretation [...] REQUIRED (test code = PLTMR) NORMAL NORMAL [id number] 00:18:00* Test Item Value Reference Range Interpretation Comme nts GLUBED (test code = GLUBED) 107 mg/dL 65-110 N [id number] 18:27:00* Test Item Value Reference Range Interpretation Comme nts GLUBED (test code = GLUBED) 144 mg/dL 65-110 H [id number] 12:13:00* Test Item Value Reference Range Interpretation Comme nts GLUBED (test code = GLUBED) 126 mg/dL 65-110 H [id number] 08:47:00* Test Item Value Reference Range Interpretation Comme nts MAGNESIUM (test code = MAG) 1.8 mg/dL 1.8-2.4 N Comments to Child Support Case Officer: DO ON BLOOD IN LAB-- DRAWN THIS AMSpecimen Comment: BLOOD IN LAB.CHEMISTRY 7 [id number] 05:19:00* Test Item Value Reference Range Interpretation [...] CA) 7.5 mg/dL 8.4-10.2 L CBC W/AUTO [id number] 05:06:00* Test Item Value Reference Range Interpretation [...] REQUIRED (test code = PLTMR) NORMAL NORMAL [id number] 00:47:00* Test Item Value Reference Range Interpretation Comme nts GLUBED (test code = GLUBED) 159 mg/dL 65-110 H [id number] 21:14:00* Test Item Value Reference Range Interpretation Comme nts C-PEPTIDE (test code = CPEP) 2.9 ng/mL 1.1-4.4 C-Peptide refere nce interval is for fasting patients.Performed At: [facility] [address] [id number] Jorgensen MD Ph:[phone] [id number] 21:14:00* Test Item Value Reference Range Interpretation Comme nts INSULIN (test code = INS) 22.1 uIU/mL 2.6-24.9 Performed At: [facility] [address] [id number] Jorgensen MD Ph:[phone] [id number] 18:25:00* Test Item Value Reference Range Interpretation Comme nts GLUBED (test code = GLUBED) 134 mg/dL 65-110 H [id number] 12:38:00* Test Item Value Reference Range Interpretation Comme nts GLUBED (test code = GLUBED) 137 mg/dL 65-110 H COMPREHENSIVE METABOLIC [id number] 05:57:00* Test Item Value Reference Range Interpretation [...] code = ALKP) 69 units/L 46-116 N [id number] 05:57:00* Test Item Value Reference Range Interpretation Comme nts MAGNESIUM (test code = MAG) 1.0 mg/dL 1.8-2.4 L RESULTS CALLED Millie FRANK Y.RN.READ BACK & CONFIRMED? Y.BY FSILVIANO.CAMPOST 12/18/18 0557. RESULTS VERIFIED BY REPEAT ANALYSIS CBC W/AUTO [id number] 05:13:00* Test Item Value Reference Range Interpretation [...] REQUIRED (test code = PLTMR) NORMAL NORMAL [id number] 00:21:00* Test Item Value Reference Range Interpretation Comme nts GLUBED (test code = GLUBED) 280 mg/dL 65-110 H CHEMISTRY 7 [id number] 23:10:00* Test Item Value Reference Range Interpretation [...] CA) 7.1 mg/dL 8.4-10.2 L CBC W/AUTO [id number] 18:05:00* Test Item Value Reference Range Interpretation Comme nts WHITE BLOOD CELL (test code = WBC) 28.6 K/mm3 6.6-12.1 HH RESULTS VERIFI ED BY REPEAT ANALYSISRESULTS CALLED TO KRISHNA .READ BACK & CONFIRMED? Y.BY FSILVIANO.RV 12/17/18 6169. RED BLOOD CELL (test code = RBC) [...] (test code = PLTMR) NORMAL NORMAL WBC [id number] 18:05:00* Test Item Value Reference Range Interpretation [...] de = PLTMORPH) NORMAL NORMAL CHEMISTRY 7 [id number] 17:48:00* Test Item Value Reference Range Interpretation [...] CA) 7.5 mg/dL 8.4-10.2 L CBC W/AUTO [id number] 17:32:00* Test Item Value Reference Range Interpretation Comme nts WHITE BLOOD CELL (test code = WBC) 28.6 K/mm3 6.6-12.1 RESULTS VERIFI ED BY REPEAT ANALYSISRESULTS CALLED TO KRISHNA .READ BACK & CONFIRMED? Y.BY F.LAB. 12/17/180. RED BLOOD CELL (test code = RBC) [...] REQUIRED (test code = PLTMR) NORMAL WBC [id number] 17:32:00* Test Item Value Reference Range Interpretation Comme nts SEGMENTED NEUTROPHILS (test code = SEG) % 56.5-79 .4 LYMPHOCYTE (test code = LYMPH) % 20-40 CBC W/AUTO [id number] 17:32:00* Test Item Value Reference Range Interpretation Comme nts WHITE BLOOD CELL (test code = WBC) 28.6 K/mm3 6.6-12.1 RESULTS VERIFI ED BY REPEAT ANALYSISRESULTS CALLED TO KRISHNA .READ BACK & CONFIRMED? Y.BY F.LAB. 12/17/180. RED BLOOD CELL (test code = RBC) [...] REQUIRED (test code = PLTMR) NORMAL WBC [id number] 17:32:00* Test Item Value Reference Range Interpretation Comme nts SEGMENTED NEUTROPHILS (test code = SEG) % 56.5-79 .4 LYMPHOCYTE (test code = LYMPH) % 20-40 [id number] 14:59:00* Test Item Value Reference Range Interpretation Comme nts GLUBED (test code = GLUBED) 288 mg/dL 65-110 H [id number] 06:04:00* Test Item Value Reference Range Interpretation Comme nts GLUBED (test code = GLUBED) 201 mg/dL 65-110 H URINALYSIS [id number] 03:54:00* Test Item Value Reference Range Interpretation [...] SAMPLE: CLEAN CATCHComment URINE WITH CULTUREUR HCG [id number] 03:54:00* Test Item Value Reference Range Interpretation Comme nts UR HCG QUAL (test code = HCGQLU) NEGATIVE 1. Very dilute u rine specimens, as indicated by a lowspecific gravity, may not contain business process representative levels ofhCG. 2. False negative results may occur when the levels of hCGare below the sensitivity level of the test. If is still suspected, a first morningurine specimen should be collected 48 hours later andtested. URINE SAMPLE: CLEAN CATCHComment URINE WITH CULTUREURINALYSIS [id number] 03:38:00* Test Item Value Reference Range Interpretation [...] SAMPLE: CLEAN CATCHComment URINE WITH CULTUREUR HCG [id number] 03:38:00* Test Item Value Reference Range Interpretation Comme nts UR HCG QUAL (test code = HCGQLU) NEGATIVE 1. Very dilute u rine specimens, as indicated by a lowspecific gravity, may not contain business process representative levels ofhCG. 2. False negative results may occur when the levels of hCGare below the sensitivity level of the test. If is still suspected, a first morningurine specimen should be collected 48 hours later andtested. URINE SAMPLE: CLEAN CATCHComment URINE WITH [id number] 22:09:00* Test Item Value Reference Range Interpretation Comme nts GLUBED (test code = GLUBED) 263 mg/dL 65-110 H Phsician Notifie d [id number] 17:08:00* Test Item Value Reference Range Interpretation Comme nts GLUBED (test code = GLUBED) 286 mg/dL 65-110 H [id number] 15:28:00* Test Item Value Reference Range Interpretation Comme nts CREATININE (test code = CREAT) 0.9 mg/dL 0.5-1.0 N IS THIS A ONCE DAILY SINGLE DOSE? YESDATE OF LAST DOSE: 12/16/18TIME OF LAST DOSE: [id number] 15:28:00* Test Item Value Reference Range Interpretation Comme nts GENTAMICIN (test code = GENT) 0.8 mcg/mL 0-14 N Adult normal ran ge for once daily dose of Gentamicin may beup to 24 mcg/mL. Gentamicin results must be correlated withthe time the dose was administered. IS THIS A ONCE DAILY SINGLE DOSE? YESDATE OF LAST DOSE: 12/16/18TIME OF LAST DOSE: [id number] 13:24:00* Test Item Value Reference Range Interpretation Comme nts GLUBED (test code = GLUBED) 274 mg/dL 65-110 H HCG [id number] 12:13:00* Test Item Value Reference Range Interpretation [...] THE ROOM AT THIS TIME. PHLEB/RBCHEMISTRY 7 [id number] 12:11:00* Test Item Value Reference Range Interpretation [...] IN THE ROOM AT THIS TIME. @ 77639ES TRY 1018 AM. PHLEB/RBCBC W/AUTO [id number] 11:40:00* Test Item Value Reference Range Interpretation [...] NORMAL COME BACK LATER- CT ABD PELVIS [id number] 11:01:00Patient Name: STACY THOMPSON Unit No: [id number] EXAMS: CPT CODE: [id number] CT ABD PELVIS W/CONT 00491 Exam: CT scan of the abdomen and [...] wall demonstrates no significant abnormalities. IMPRESSION: [facility] NAME: STACY THOMPSON Radiology Department PHYS: Arpan Wallace MD [address] : 1990 AGE: 28 SEX: F [place] [address] LOC: F.4672 A PHONE #: [phone] EXAM DATE: 12/16/2018 STATUS: ADM INFAX #: [phone] RAD NO: Page 1 Signed Report 1 Patient Name: STACY THOMPSON Unit No: [id number] EXAMS: CPT CODE: [id number] CT ABD PELVIS W/CONT 08446 (Continued) Bilateral adnexal masses as described above. The patient gives a history of abscess drainage at [facility] October 05, 2018. She describes having drains and drainage bags on either side. The findings in the adnexal region may be sequelaof this procedure. Prior images have been requested. Electronically Signed by Charissa Lundberg 12/16/2018 at 1101 Reported and signed by: Charissa Arreola MD CC: Lianet Weir Technologist: RT Adalberto, CT CTDI: 21.83 DLP: 1880.60 Trnscrbd D/ (1101) Sam[place] [facility] NAME: DONNASTACY MAYNARD Radiology Department PHYS: Arpan Wallace MD [address] : 1990 AGE: 28 SEX: F [place] [address] LOC: F.4672A PHONE #: [phone] EXAM DATE: 12/16/2018 STATUS: ADM IN FAX #: [phone] RAD NO: Page 2 Signed Report 1 Patient Name: STACY THOMPSON Unit No: [id number] EXAMS: CPT CODE: [id number] CT ABD PELVIS W/CONT 18614 (Continued) Orig Print D/T: S: 12/16/2018 (1104) [facility] NAME: STACY THOMPSON Radiology Department PHYS: Arpan Wallace MD [address] : [birth year] AGE: 28 SEX: F [place] [address] LOC: F.4672 A PHONE #: [phone] EXAM DATE: 12/16/2018 STATUS: ADM IN FAX #: [phone] RAD NO: Page 3 Signed Report [id number] 07:07:00* Test Item Value Reference Range Interpretation Comme nts GLUBED (test code = GLUBED) 241 mg/dL 65-110 H CREATINE KINASE (CK)2018-12-15 19:52:00* Test Item Value Reference Range Interpretation Comme nts CREATINE KINASE (CK) (test c ode = CK) 60 Units/L 26-192 N [id number] 16:55:00* Test Item Value Reference Range Interpretation Comme nts GLUBED (test code = GLUBED) 339 mg/dL 65-110 H Phsician Notifie d COMPREHENSIVE METABOLIC [id number] 11:01:00* Test Item Value Reference Range Interpretation [...] = ALKP) 103 units/L 46-116 N T4 [id number] 11:01:00* Test Item Value Reference Range Interpretation Comme nts T4 FREE (test code = T4F) 1.24 ng/dL 0.76-1.46 N THYROID STIMULATING [id number] 11:01:00* Test Item Value Reference Range Interpretation [...] as fructosamineshould be considered for these patients. GLYCOSYLATED HEMOGLOBIN [id number] 11:01:00* Test Item Value Reference Range Interpretation [...] code = MBG) 217 MG/DL 70-110 H [id number] 10:19:00* Test Item Value Reference Range Interpretation Comme nts GLUBED (test code = GLUBED) 290 mg/dL 65-110 H Phsician Notifie d COMPREHENSIVE METABOLIC [id number] 07:23:00* Test Item Value Reference Range Interpretation [...] = ALKP) 103 units/L 46-116 N T4 [id number] 07:23:00* Test Item Value Reference Range Interpretation Comme nts T4 FREE (test code = T4F) 1.24 ng/dL 0.76-1.46 N THYROID STIMULATING [id number] 07:23:00* Test Item Value Reference Range Interpretation Comme nts THYROID STIMULATING HORMONE (test code = TSH) 3.27 0.36-3.74 N Test Performed i n MicroInternational Units/mL GLYCOSYLATED HEMOGLOBIN (HA1C)2018-12-15 07:23:00* Test Item Value Reference Range Interpretation Comme nts GLYCOSYLATED HEMOGLOBIN (HA1 C) (test code = GLYHGB) [id number] 06:04:00* Test Item Value Reference Range Interpretation Comme nts GLUBED (test code = GLUBED) 308 mg/dL 65-110 H Phsician Notifie d COMPREHENSIVE METABOLIC [id number] 05:10:00* Test Item Value Reference Range Interpretation [...] ALKP) 103 units/L 46-116 N THYROID STIMULATING [id number] 05:10:00* Test Item Value Reference Range Interpretation Comme nts THYROID STIMULATING HORMONE (test code = TSH) 3.27 0.36-3.74 N Test Performed i n MicroInternational Units/mL GLYCOSYLATED HEMOGLOBIN (HA1C)2018-12-15 05:10:00* Test Item Value Reference Range Interpretation Comme nts GLYCOSYLATED HEMOGLOBIN (HA1 C) (test code = GLYHGB) LACTIC [id number] 04:53:00* Test Item Value Reference Range Interpretation Comme nts LACTIC ACID (test code = LACT) 1.5 MMOL/L 0.5-2.2 N CBC W/AUTO [id number] 04:30:00* Test Item Value Reference Range Interpretation [...] PLTMR) NORMAL NORMAL - CT HEAD/BRAIN W/O [id number] 04:27:00Patient Name: STACY THOMPSON Unit No: [id number] EXAMS: CPT CODE: [id number] CT HEAD/BRAIN W/O CONT 58251 EXAM: CT, CT HEAD/BRAIN W/O CONTRAST; 12/15/2018, [...] acute hemorrhage or subacute stroke. SL: JSYED-H [facility] NAME: STACY THOMPSON Radiology Department PHYS: Lianet Morrow MD [address] : 1990 AGE: 28 SEX: F [place] [address] LOC: F.4672 A PHONE #: [phone] EXAM DATE: 12/15/2018 STATUS: ADM IN FAX #: [phone] RAD NO: Page 1 Signed Report 1 Patient Name: STACY THOMPSON Unit No: [id number] EXAMS: CPT CODE: [id number] CT HEAD/BRAIN W/O CONT 68401 (Continued) at 0427 Reported and signed by: Paul Barreto M.D. CC: Lianet Weir Technologist: JENNI MEDINA, RT CTDI: 53.12 DLP: 879.86 Trnscrbd D/ (0427) Flor.JS38 [facility] NAME: STACY THOMPSON Radiology DepartmentPHYS: Lianet Morrow MD [address] : 1990 AGE: 28 SEX: F [place] [address] LOC: F.4672 A PHONE #: [phone] EXAM DATE: 12/15/2018 STATUS: ADM IN FAX #: RAD NO: Page 2 Signed Report 1 Patient Name: STACY THOMPSON Unit No: [id number] EXAMS: CPT CODE: [id number] CT HEAD/BRAIN W/O CONT 50310 (Continued) Orig Print D/T: S: 12/15/2018 (0430) [facility] NAME: STACY THOMPSON Radiology Department PHYS: Lianet Morrow MD [address] : 1990 AGE: 28 SEX: F [place] [address] LOC: F.4672 A PHONE #: [phone] EXAM DATE: 12/15/2018 STATUS: ADM IN FAX #: [phone] RAD NO: Page 3 Signed Report 1GC AND CHLAMYDIA AMPLIFIED, THINPREP 2018-09-22 00:00:00* Test Item Value Reference Range Interpretation Comme nts GONORRHEA, TMA (test code = 97414) NEGATIVE CHLAMYDIA, TMA (test code = 43465) NEGATIVE Davion BlandonPAP TEST, THINPREP, [id number] 00:00:00* Test Item Value Reference Range Interpretation Comme nts SOURCE: (test code = 8001) Cervical/Endocervical SLIDES: (test code = 8011) 1 LMP: (test code = 8021) SPECIMEN ADEQUACY: (test code = 82025) (NOTE) INTERPRETATION: (test code = 54586) NILM/NO EPITH. ABNORMALITY;SEE BELOW OTHER COMMENTS: (test code = 8081) (NOTE) TRAFFIC CONTROL TECHNICIAN: (test code = 8101) JENNI Guajardo(ASCP) [facility] LOCATION: (test code = 21547) (NOTE) CPT: (test code = 8140) (NOTE) Davion BlandonGC AND CHLAMYDIA AMPLIFIED, [id number] 00:00:00* Test Item Value Reference Range Interpretation Comme nts GONORRHEA, TMA (test code = 56143) NEGATIVE CHLAMYDIA, TMA (test code = 23388) NEGATIVE Davion BlandonPAP TEST, THINPREP, [id number] 00:00:00* Test Item Value Reference Range Interpretation Comme nts SOURCE: (test code = 8001) Cervical/Endocervical SLIDES: (test code = 8011) 1 LMP: (test code = 8021) SPECIMEN ADEQUACY: (test code = 78722) (NOTE) INTERPRETATION: (test code = 62367) NILM/NO EPITH. ABNORMALITY;SEE BELOW OTHER COMMENTS: (test code = 8081) (NOTE) TRAFFIC CONTROL TECHNICIAN: (test code = 8101) JENNI Guajardo(ASCP) [facility] LOCATION: (test code = 90708) (NOTE) CPT: (test code = 8140) (NOTE) Davion F AustinGC AND CHLAMYDIA AMPLIFIED, [id number] 00:00:00* Test Item Value Reference Range Interpretation Comme nts GONORRHEA, TMA (test code = 91811) NEGATIVE CHLAMYDIA, TMA (test code = 98506) NEGATIVE Davion BlandonPAP TEST, THINPREP, [id number] 00:00:00* Test Item Value Reference Range Interpretation Comme nts SOURCE: (test code = 8001) Cervical/Endocervical SLIDES: (test code = 8011) 1 LMP: (test code = 8021) SPECIMEN ADEQUACY: (test code = 75022) (NOTE) INTERPRETATION: (test code = 55525) NILM/NO EPITH. ABNORMALITY;SEE BELOW OTHER COMMENTS: (test code = 8081) (NOTE) TRAFFIC CONTROL TECHNICIAN: (test code = 8101) JENNI Guajardo(ASCP) [facility] LOCATION: (test code = 21438) (NOTE) CPT: (test code = 8140) (NOTE) Davion BlandonACUTE HEPATITIS [id number] 00:00:00* Test Item Value Reference Range Interpretation Comme nts HEPATITIS A IgM (test code = 33800) NON-REACTIVE HEPATITIS B CORE IgM (test c ode = 4644) NON-REACTIVE HEPATITIS B SURF AG (test co de = 2739) NON-REACTIVE HEPATITIS C ANTIBODY (test c ode = 4675) NON-REACTIVE HCV INDEX (test code = 22794) 0.14 INTERPRETATION HEPATITIS A: (test code = 2552) (NOTE) INTERPRETATION HEPATITIS B: (test code = 47300) (NOTE) INTERPRETATION HEPATITIS C: (test code = 68043) (NOTE) Davion BlandonHIV AB/AG COMBO RFLX [id number] 00:00:00* Test Item Value Reference Range Interpretation Comme nts HIV 1/2 4TH GEN, RFLX CONF ( test code = 3514) NON-REACTIVE Davion BlandonHPV HIGH RISK WITH GENOTYPE, [id number] 00:00:00* Test Item Value Reference Range Interpretation Comme nts HPV HIGH RISK INTERP (test c ode = 84026) NEGATIVE HPV 16 (test code = 38703) NEGATIVE HPV 18 (test code = 16787) NEGATIVE HPV, HR, OTHER GENOTYPES (te st code = 64070) NEGATIVE Davion [id number] 00:00:00* Test Item Value Reference Range Interpretation Comme nts RPR RESULT (test code = 3501) NON-REACTIVE RPR TITER (test code = 3500) NOT INDIC. TITER Davion BlandonACUTE HEPATITIS [id number] 00:00:00* Test Item Value Reference Range Interpretation Comme nts HEPATITIS A IgM (test code = 22078) NON-REACTIVE HEPATITIS B CORE IgM (test c ode = 4644) NON-REACTIVE HEPATITIS B SURF AG (test co de = 2739) NON-REACTIVE HEPATITIS C ANTIBODY (test c ode = 4675) NON-REACTIVE HCV INDEX (test code = 34785) 0.14 INTERPRETATION HEPATITIS A: (test code = 2552) (NOTE) INTERPRETATION HEPATITIS B: (test code = 55296) (NOTE) INTERPRETATION HEPATITIS C: (test code = 03592) (NOTE) Davion BlandonHIV AB/AG COMBO RFLX [id number] 00:00:00* Test Item Value Reference Range Interpretation Comme nts HIV 1/2 4TH GEN, RFLX CONF ( test code = 3514) NON-REACTIVE Davion BlandonHPV HIGH RISK WITH GENOTYPE, [id number] 00:00:00* Test Item Value Reference Range Interpretation Comme nts HPV HIGH RISK INTERP (test c ode = 65067) NEGATIVE HPV 16 (test code = 56489) NEGATIVE HPV 18 (test code = 48010) NEGATIVE HPV, HR, OTHER GENOTYPES (te st code = 15476) NEGATIVE Davion [id number] 00:00:00* Test Item Value Reference Range Interpretation Comme nts RPR RESULT (test code = 3501) NON-REACTIVE RPR TITER (test code = 3500) NOT INDIC. TITER Davion BlandonACUTE HEPATITIS [id number] 00:00:00* Test Item Value Reference Range Interpretation Comme nts HEPATITIS A IgM (test code = 43399) NON-REACTIVE HEPATITIS B CORE IgM (test c ode = 4644) NON-REACTIVE HEPATITIS B SURF AG (test co de = 2739) NON-REACTIVE HEPATITIS C ANTIBODY (test c ode = 4675) NON-REACTIVE HCV INDEX (test code = 48975) 0.14 INTERPRETATION HEPATITIS A: (test code = 2552) (NOTE) INTERPRETATION HEPATITIS B: (test code = 37029) (NOTE) INTERPRETATION HEPATITIS C: (test code = 57902) (NOTE) Davion BlandonHIV AB/AG COMBO RFLX [id number] 00:00:00* Test Item Value Reference Range Interpretation Comme latia HIV 1/2 4TH GEN, RFLX CONF ( test code = 3514) NON-REACTIVE Davion BlandonHPV HIGH RISK WITH GENOTYPE, [id number] 00:00:00* Test Item Value Reference Range Interpretation Comme latia HPV HIGH RISK INTERP (test c ode = 63012) NEGATIVE HPV 16 (test code = 74958) NEGATIVE HPV 18 (test code = 21974) NEGATIVE HPV, HR, OTHER GENOTYPES (te st code = 71611) NEGATIVE Davion [id number] 00:00:00* Test Item Value Reference Range Interpretation Comme latia RPR RESULT (test code = 3501) NON-REACTIVE RPR TITER (test code = 3500) NOT INDIC. TITER Davion BlandonHEMOGLOBIN [id number] 00:00:00* Test Item Value Reference Range Interpretation Comme latia HEMOGLOBIN A1c (test code = 53132) 8.6 % Davion BlandonCOMPREHENSIVE METABOLIC [id number] 00:00:00* Test Item Value Reference Range Interpretation Comme latia GLUCOSE (test code = 2217) 106 MG/DL BUN (test code = 2208) 8 MG/DL CREATININE (test code = 2214) 0.82 MG/DL eGFR AMER. (test cod e = 36114) 112 ML/MIN/1.73 eGFR NON- AMER. (test code = 44166) 97 ML/MIN/1.73 CALC BUN/CREAT (test code = 2235) 10 RATIO SODIUM (test code = 2231) 139 MEQ/L POTASSIUM (test code = 2228) 4.3 MEQ/L CHLORIDE (test code = 2215) 101 MEQ/L CARBON DIOXIDE (test code = 2206) 26 MEQ/L CALCIUM (test code = 2209) 9.5 MG/DL PROTEIN, TOTAL (test code = 2229) 8.9 G/DL ALBUMIN (test code = 2201) 4.1 G/DL CALC GLOBULIN (test code = 2240) 4.8 G/DL CALC A/G RATIO (test code = 2234) 0.9 RATIO BILIRUBIN, TOTAL (test code = 2207) 0.8 MG/DL ALKALINE PHOSPHATASE (test code = 2204) 99 U/L AST (test code = 2218) 29 U/L ALT (test code = 2219) 30 U/L Davion BlandonHEMOGLOBIN [id number] 00:00:00* Test Item Value Reference Range Interpretation Comme nts HEMOGLOBIN A1c (test code = 88445) 8.6 % Davion Pro AustinCOMPREHENSIVE METABOLIC [id number] 00:00:00* Test Item Value Reference Range Interpretation Comme nts GLUCOSE (test code = 2217) 106 MG/DL BUN (test code = 2208) 8 MG/DL CREATININE (test code = 2214) 0.82 MG/DL eGFR AMER. (test cod e = 01974) 112 ML/MIN/1.73 eGFR NON- AMER. (test code = 05837) 97 ML/MIN/1.73 CALC BUN/CREAT (test code = 2235) 10 RATIO SODIUM (test code = 2231) 139 MEQ/L POTASSIUM (test code = 2228) 4.3 MEQ/L CHLORIDE (test code = 2215) 101 MEQ/L CARBON DIOXIDE (test code = 2206) 26 MEQ/L CALCIUM (test code = 2209) 9.5 MG/DL PROTEIN, TOTAL (test code = 2229) 8.9 G/DL ALBUMIN (test code = 2201) 4.1 G/DL CALC GLOBULIN (test code = 2240) 4.8 G/DL CALC A/G RATIO (test code = 2234) 0.9 RATIO BILIRUBIN, TOTAL (test code = 2207) 0.8 MG/DL ALKALINE PHOSPHATASE (test code = 2204) 99 U/L AST (test code = 2218) 29 U/L ALT (test code = 2219) 30 U/L Davion Pro AustinHEMOGLOBIN [id number] 00:00:00* Test Item Value Reference Range Interpretation Comme nts HEMOGLOBIN A1c (test code = 61374) 8.6 % Davion Pro AustinCOMPREHENSIVE METABOLIC [id number] 00:00:00* Test Item Value Reference Range Interpretation Comme nts GLUCOSE (test code = 2217) 106 MG/DL BUN (test code = 2208) 8 MG/DL CREATININE (test code = 2214) 0.82 MG/DL eGFR AMER. (test cod e = 37550) 112 ML/MIN/1.73 eGFR NON- AMER. (test code = 15756) 97 ML/MIN/1.73 CALC BUN/CREAT (test code = 2235) 10 RATIO SODIUM (test code = 2231) 139 MEQ/L POTASSIUM (test code = 2228) 4.3 MEQ/L CHLORIDE (test code = 2215) 101 MEQ/L CARBON DIOXIDE (test code = 2206) 26 MEQ/L CALCIUM (test code = 2209) 9.5 MG/DL PROTEIN, TOTAL (test code = 2229) 8.9 G/DL ALBUMIN (test code = 2201) 4.1 G/DL CALC GLOBULIN (test code = 2240) 4.8 G/DL CALC A/G RATIO (test code = 2234) 0.9 RATIO BILIRUBIN, TOTAL (test code = 2207) 0.8 MG/DL ALKALINE PHOSPHATASE (test code = 2204) 99 U/L AST (test code = 2218) 29 U/L ALT (test code = 2219) 30 U/L Davion F AustinAerobic Bacterial Culture* Test Item Value Reference Range Interpretation Comme nts Aerobic Bacterial Culture (t est code = 634-6) Final report SARS-COV 2 AntigenSARS-COV 2 Antigen Notes Date/Time Note Provider Source 2024-05-16 14:33:47 [facility]2025-04-07 14:33:47 [id number] 13:52:37 Images from the original note were not included. Recommendation for pharmacist: *Refill - 90 day supply + 2 refill (9 months) Requested Prescriptions Pending Prescriptions Disp Refills dicyclomine (Bentyl) 20 MG tablet [Pharmacy Med Name: DICYCLOMINE 20 MG TABLET] 180 tablet 0 Sig: TAKE 1 TABLET BY MOUTH 2 TIMES DAILY NEEDED. Courtesy refill?: No Next OV: Visit date not found *Additional Info: Irritable bowel syndrome, unspecified type Continue dicylcomine Referred to GI Orders: Ambulatory referral to Gastroenterology; Future Pharmacy TechnicianMemoMunson Healthcare Manistee [id number] 10:17:11 Chief Complaint Patient presents with Foot Pain Patient states she is having left heel pain and this has bene happening for about 1 year Pain level 07/19 Filomena Azar MA SURG NURSE Filomena Azar [facility]2024-11-26 08:25:09* [facility] 2024-01-05 08:25:09 Upcoming Encounters Health Maintenance Due Date Last Done Comments Pneumococcal Vaccine: Pediatrics (0 to 5 Years) and At-Risk Patients (6 to 64 Years) (1 of 2 - PCV) 1994 Diabetes: Foot Exam 1998 Varicella Vaccines (1 of 2 - 13+ 2-dose series) 2001 Hepatitis A Vaccines (1 of 2 - Risk 2-dose series) 10/26/2007 Hepatitis B Vaccines (1 of 3 - 19+ 3-dose series) 10/26/2007 DTaP/Tdap/Td Vaccines (2 - Td or Tdap) 02/07/2023 02/07/2013 Influenza Vaccine (#1) 2023 02/07/2013 Diabetes: Hemoglobin A1C 06/02/2024 024, 08/13/2022, 01/28/2022, Additional history exists Annual Physical 12/02/2024 12/03/2023, 10/11, 09/06/2020 Diabetes: Urine Protein Screening 12/02/2024 12/03/2023, 01/28/2022 Lipid Panel 12/02/2024 12/03/2023, 04/06/2022, 01/28/2022 Diabetes: Retinopathy Screening 08/09/2025 08/10/2023 Cervical Cancer Screening Discontinued HPV/Cotest Discontinued 10/29/2020 HIB Vaccines Aged Out No longer eligi ble based on patient's age to complete this topic HPV Vaccines Aged Out No longer eligi ble based on patient's age to complete this topic IPV Vaccines Aged Out No longer eligi ble based on patient's age to complete this topic Meningococcal Vaccine Aged Out No sol ras eligible based on patient's age to complete this topic Pap Smear Discontinued Rotavirus Vaccines Aged Out No longer eligible based on patient's age to complete this topic [facility] CenterYpeqeho2798-21-19 08:25:09 [facility] CenterLbqxprk9948-66-19 08:56:18* [facility] CenterMuiqjzy2496-11-39 08:56:18Upcoming Encounters Health Maintenance Due Date Last Done Comments Pneumococcal Vaccine: Pediatrics (0 to 5 Years) and At-Risk Patients (6 to 64 Years) (1 of 2 - PCV) 1994 Diabetes: Foot Exam 1998 Varicella Vaccines (1 of 2 - 13+ 2-dose series) 2001 Hepatitis A Vaccines (1 of 2 - Risk 2-dose series) 10/26/2007 Hepatitis B Vaccines (1 of 3 - 19+ 3-dose series) 10/26/2007 DTaP/Tdap/Td Vaccines (2 - Td or Tdap) 02/07/2023 02/07/2013 Influenza Vaccine (#1) 2023 02/07/2013 Diabetes: Hemoglobin A1C 06/02/2024 024, 08/13/2022, 01/28/2022, Additional history exists Annual Physical 12/02/2024 12/03/2023, 10/11, 09/06/2020 Diabetes: Urine Protein Screening 12/02/2024 12/03/2023, 01/28/2022 Lipid Panel 12/02/2024 12/03/2023, 04/1 06/2022, 01/28/2022 Diabetes: Retinopathy Screening 08/09/2025 08/10/2023 Cervical Cancer Screening Discontinued HPV/Cotest Discontinued 10/29/2020 HIB Vaccines Aged Out No longer eligi ble based on patient's age to complete this topic HPV Vaccines Aged Out No longer eligi ble based on patient's age to complete this topic IPV Vaccines Aged Out No longer eligi ble based on patient's age to complete this topic Meningococcal Vaccine Aged Out No sol ras eligible based on patient's age to complete this topic Pap Smear Discontinued Rotavirus Vaccines Aged Out No longer eligible based on patient's age to complete this topic [facility] CenterTpxzpvw4317-87-36 08:56:18 [facility] CenterXpfyfvo4289-28-88 08:02:23 Images from the original note were not included. Attention: MA/Nurse Pharmacy support is unable to resolve this request because it requires additional review (see notes below). Please review with the provider and follow your clinic workflow to resolve this request. Requested Prescriptions Pending Prescriptions Disp Refills insulin degludec (Tresiba FlexTouch) 100 UNIT/ML injection [Pharmacy Med Name: TRESIBA FLEXTOUCH 100 UNIT/ML] 0 Next OV: 03/01/2024 *Additional Information: Please address request to have rx changed to a preferred alternative. SURG NURSE Pharmacy TechnicianFreddy YapKldvzep8142-51-52 14:26:30Upcoming Encounters Health Maintenance Due Date Last Done Comments Pneumococcal Vaccine: Pediatrics (0 to 5 Years) and At-Risk Patients (6 to 64 Years) (1 of 2 - PCV) 1994 Diabetes: Foot Exam 1998 Varicella Vaccines (1 of 2 - 13+ 2-dose series) 2001 Hepatitis A Vaccines (1 of 2 - Risk 2-dose series) 10/26/2007 Hepatitis B Vaccines (1 of 3 - 19+ 3-dose series) 10/26/2007 DTaP/Tdap/Td Vaccines (2 - Td or Tdap) 02/07/2023 02/07/2013 Influenza Vaccine (#1) 2023 02/07/2013 Diabetes: Hemoglobin A1C 06/02/2024 024, 08/13/2022, 01/28/2022, Additional history exists Annual Physical 12/02/2024 12/03/2023, 10/11, 09/06/2020 Diabetes: Urine Protein Screening 12/02/2024 12/03/2023, 01/28/2022 Lipid Panel 12/02/2024 12/03/2023, 05/10, 01/28/2022 Diabetes: Retinopathy Screening 08/09/2025 08/10/2023 Cervical Cancer Screening Discontinued HPV/Cotest Discontinued 10/29/2020 HIB Vaccines Aged Out No longer eligi ble based on patient's age to complete this topic HPV Vaccines Aged Out No longer eligi ble based on patient's age to complete this topic IPV Vaccines Aged Out No longer eligi ble based on patient's age to complete this topic Meningococcal Vaccine Aged Out No sol ras eligible based on patient's age to complete this topic Pap Smear Discontinued Rotavirus Vaccines Aged Out No longer eligible based on patient's age to complete this topic [id number] 14:26:30 [id number] 14:00:08* Consultation (Routine) - Pending Review Specialty Diagnoses / Procedures Referred By Eric rosado Referred To Contact Podiatry Diagnoses Left foot pain Ingrown toenail Calcaneal spur, unspecified laterality Procedures [place] OFFICE/OUTPATIENT NEW HIGH MDM 60-74 MINUTES Mary De La Torre MD [address] [address] Phone: tel: fax: Referral ID Status Reason Start Date Expiration Date Visits Requested Visits Authorized [id number] Pending Review Specialty Services Required 4 06/27/2024 1 1 SURG NURSE* Consultation (Routine) - Pending Review Specialty Diagnoses / Procedures Referred By Eric rosado Referred To Contact Gastroenterology Diagnoses Irritable bowel syndrome, unspecified type Gastroparesis Procedures [place] OFFICE/OUTPATIENT NEW HIGH MDM 60-74 MINUTES Mary De La Torre MD [address] [address] Phone: tel: fax: Referral ID Status Reason Start Date Expiration Date Visits Requested Visits Authorized [id number] Pending Review Specialty Services Required 4 06/27/2024 1 1 SURG NURSE [id number] 14:00:08* [facility] CenterQjknuqq1461-79-89 14:00:08* Mary De La Torre MD - 12/30/2023 1:15 PM MED SURG NURSE Subjective Patient ID: Stacy Thompson is a 33 y.o. female who presents for Foot Pain (Pt states that she is having left foot pain needs referral to see podiatry /Left foot pain x 2 months also right big toe pain x 3 days /). NEW PATIENT last seen by PMD: not for some time due to lack of insurance. Was seen one time by an MD for labs last month. PMH/PSH reviewed, Any specialists currently or previously seen: Endocrine. Meds: see list Allergies: see list Fam Hx: reviewed, Smoker/pack-year history? ETOH drinks per week? Other substances? Profession: Marital: Children: Chronic conditions include: Patient here for the following concerns/issues: 1) requesting referral to podiatry for L foot pain (heel), also tingling in the dorsal toes. Has been told she has a bone spur. First step in the AM is very painful. Also has possible R big toenail ?infection? Ingrown toenail. Tender and painful. Has tried topical antibiotic and alcohol. 'has seen some discharge from the area. She is a diabetic on insulin and metformin. 2) DM--on insulin and metformin. Thinks her last A1c last month was 7.4. needs refills on metformin, insulin, test strips, and syringes. Had been on Ozempic but it caused GI upset. 3) Hyperlipidemia--started on Crestor 1 month ago 4) is on clindamycin for inflammation of gingivae. 5) is taking dicyclomine for presumptive IBS. prescribed last month. Has frequent diarrhea and cramps after eating. Has tried cutting out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 capillary refill, normal temperature Neuro/SAMPLER AND TEST PREPARER: alert, oriented X 3, CNII-XII intact Skin: normal color, normal temperature Diagnosis, Assessment Plan Hospital course to date: Assessment Tubo-ovarian abscess with subsequent adhesions and postinflammatory changes etc. s/p hysterectomy, salpingo-oophorectomy, lysis of adhesions, bowel resection Diabetes mellitus w with hyperglycemia E. coli UTI Morbid obesity with BMI of 46 post op nausea DVT risk hypokalemia Recommendations and plan ambulate anti emetic, may need to slow diet Continue antibiotics Follow urine cultures for ID and sensitivity- id dr moreau following Glucose control-Per endocrine DVT prophylaxis w lovenox at 0856 [facility] #:[id number] END OF REPORT [id number] 07:20:00 [facility] ([facility]) General Surgery Progress Note REPORT#:[id number] REPORT STATUS: Signed DATE:12/21/18 TIME: 719 PATIENT: STACY THOMPSON UNIT #: [id number] ROOM/BED: [address] : 88 AGE: 28 SEX: F ATTEND: Arpan Min MD ADM AUTHOR: Osman Farias MD * ALL edits or amendments must be made on the electronic/computer document * General Date of surgery: 12/17/18 Status post: PRETTY-BSO, Enterolysis, Partial sigmoid resection ' anastomosis Subjective Comments: Patient came out of ICU yesterday. Reports some nausea and emesis. Per patient and nursing, lower part of incision opened slightly. Covered with steri strips. Reports she is continuing to pass flatus and having small liquid bowel movements with voids. Denies bloating. Objective Physical Exam VS/I O Last Documented: Result Date Time Pulse Ox 98 12/21 07 B/P 104/67 12/22 719 B/P Mean 79.2 12/22 719 Temp 98.2 12/22 719 Pulse 72 12/21 0720 Resp 18 12/21 07 O2 Delivery Room air 12/21 0322 O2 Flow Rate 2.044448 12/17 2049 Vital Signs Date Temp Pulse Resp B/P B/P Mean Pulse Ox FiO2 12/20-12/21 98.1-98.8 72-82 16- 98-125/52-81 73-96 95-100 24 hour I O ending at 0700: 12/21 0700 12/20 1900 Intake Total 1575.00 4680.00 Output Total 2180 Balance 1575.00 2500.00 Intake, IV 1575.00 3240.00 Intake, Oral 1440 Number Voids 3 Output, 30 Drainage Output, Urine 2150 Patient Weight Weight (lb): 259 Weight (oz): 15.86 Weight (kg): 117.930 General appearance: alert, awake, oriented, no acute distress Abdomen: Soft, ND, ATTP, abdominal binder in place Diagnosis, Assessment Plan Free Text A P: Ms Thompson is a 28 year-old female now POD #4 from Laparoscopic converted to open PRETTY-BSO, Marisol, and partial sigmoid resection with primary anastomosis. Patient now starting to have some return of bowel function. - ADAT soft if nausea improves - Pain control - Rest of care per Dr. Min at 0722 RPT #:[id number] END OF REPORT [id number] 10:21:00 [facility] ([facility]) Gynecology Post Prog Note REPORT#:[id number] REPORT STATUS: Signed DATE:12/20/18 TIME: 1021 PATIENT: STACY THOMPSON UNIT #: [id number] ROOM/BED: [address] : 88 AGE: 28 SEX: F ATTEND: Arpan Min MD ADM AUTHOR: Arpan Min MD * ALL edits or amendments must be made on the electronic/computer document * General Post-op: day 3 Status [...] and add macrobid for UTI Objective Physical Exam VS/I O Last Documented: Result Date Time Pulse Ox 95 12/21 399 B/P 109/63 12/21 399 B/P Mean 81 12/21 399 Temp 98.1 12/21 399 Pulse 79 12/21 399 Resp 14 12/21 399 O2 Delivery Nasal cannula 12/17 2049 O2 Flow Rate 2.563522 12/17 2049 24 hour I O ending at 0700: 12/20 0700 12/19 1900 Intake Total 2030.00 Output Total 1875 Balance 155.00 Intake, IV 1590.00 Intake, Oral 440 Output, Urine 1875 Patient Weight Weight (lb): 259 Weight (oz): 15.86 Weight (kg): 117.930 Wound/incision: Location: midline umbilical dry and clean abdomen soft and not distended Site condition: dressing clean dry, dressing intact HEENT: anicteric, moist mucosal membranes, normal pharynx, pupils reactive to light, sclera clear Neck: non-tender Cardiovascular: normal heart sounds Respiratory: aerating well, clear to auscultation, symmetric expansion, no distress Abdomen: non-tender, soft, [...] ML Diatrizoate Meglum/Diatrizoate Sod 40 ML ONCE PRN PO [...] % (Auto) (14.3 - 34.3 %) 16.8 [place] % (Auto) (5.1 - 10.4 %) 8.8 Eos % (Auto) (0.1 - 3.0 %) 2.1 Baso % (Auto) (0.1 - 1.0 %) 0.5 Neut # (Auto) (K/mm3) 6.9 Lymph # (Auto) (K/mm3) 1.6 [place] # (Auto) (K/mm3) 0.9 Eos # (Auto) (K/mm3) 0.20 Baso # (Auto) (K/mm3) 0.1 Immature Plt Fraction (0.0 - 10.8 %) 0.0 Results: no new labs Treatment Prophylaxis Treatment Prophylaxis Jimenez status: discontinue today Other: Transfer to MedSurg at 1026 RPT #:[id number] END OF REPORT [id number] 08:19:00 [facility] ([facility]) Critical Care Progress Note REPORT#:[id number] REPORT STATUS: Signed DATE:12/20/18 TIME: 818 PATIENT: STACY THOMPSON UNIT #: [id number] ROOM/BED: [address] : 88 AGE: 28 SEX: F ATTEND: Arpan Min MD ADM AUTHOR: Kristofer Ellison MD * ALL edits or amendments must be made on the electronic/computer document * Subjective Comments: some bleching, few flatus, no more nasues almita some clear has ambulated no bm pain is controlled. Objective General VS/I O Last Documented: Result Date Time Pulse Ox 95 12/20 0400 B/P 109/63 12/20 0400 B/P Mean 81 12/20 0400 Temp 98.1 12/20 040 Pulse 79 12/20 0400 Resp 14 12/20 040 O2 Delivery Nasal cannula 12/17 2049 O2 Flow Rate 2.671121 12/17 2049 24 hour I O ending [...] ML Diatrizoate Meglum/Diatrizoate Sod 40 ML ONCE PRN PO Clindamycin Phosphate 50 ML Q8H IV Gentamicin Sulfate 400 MG Q24H IV Sodium Chloride 100 ML Lactated Ringer's 1,000 ML ASDIR IV Magnesium Hydroxide 30 ML Q8H PRN PRN PO Physical Exam General appearance: obese, alert, awake, oriented, no acute distress, pleasant, conversational, mental status normal, no respiratory distress Head/Eyes: atraumatic, normocephalic, PERRL ENT: moist mucosal membranes Neck: full range of motion, non-tender, normal thyroid, short thick Cardiovascular: tachycardia, normal heart sounds, normal S1 S2, no murmur, no rub Respiratory/Chest: aerating well, clear to auscultation, symmetric expansion Abdomen: tenderness (approp post op near wound site), soft, no distention, no guarding, no mass/organomegaly, no rebound, incsion cdi Extremities: moves all, normal capillary refill, normal temperature Neuro/SAMPLER AND TEST PREPARER: alert, oriented X 3, CNII-XII intact Skin: [...] % (Auto) (14.3 - 34.3 %) 16.8 [place] % (Auto) (5.1 - 10.4 %) 8.8 Eos % (Auto) (0.1 - 3.0 %) 2.1 Baso % (Auto) (0.1 - 1.0 %) 0.5 Neut # (Auto) (K/mm3) 6.9 Lymph # (Auto) (K/mm3) 1.6 [place] # (Auto) (K/mm3) 0.9 Eos # (Auto) (K/mm3) 0.20 Baso # (Auto) (K/mm3) 0.1 Immature Plt Fraction (0.0 - 10.8 %) 0.0 Microbiology: 12/17 1500 NASAL: MRSA Screen - COMP Diagnosis, Assessment Plan Hospital course to date: Assessment Tubo-ovarian abscess with subsequent adhesions and postinflammatory changes etc. s/p hysterectomy, salpingo-oophorectomy, lysis of adhesions, bowel resection Diabetes mellitus w with hyperglycemia E. coli UTI Morbid obesity with BMI of 46 post op nausea DVT risk hypokalemia Recommendations and plan Continue antibiotics Follow urine cultures for ID and sensitivity- id dr moreau following Glucose control-Per endocrine DVT prophylaxis w lovenox ambulation repalce baltazar-eric jimenez at 0822 RPT #:[id number] END OF REPORT [id number] 07:32:00 [facility] ([facility] General Surgery Progress Note REPORT#:[id number] REPORT STATUS: Signed DATE:12/20/18 TIME: 0732 PATIENT: STACY THOMPSON UNIT #: [id number] ROOM/BED: [address] : 88 AGE: 28 SEX: F ATTEND: Arpan Min MD ADM AUTHOR: Osman Farias MD * ALL edits or amendments must be made on the electronic/computer document * General Date of surgery: 12/17/18 Status post: PRETTY-BSO, Enterolysis, Partial sigmoid resection w/ ' anastomosis Subjective Comments: Patient reports feeling much better today. Tolerating clears with some nausea and bloating, but no emesis. This morning did pass a small amount of flatus. Ambulating with good pain control. Objective Physical Exam VS/I O Last Documented: Result Date Time Pulse Ox 95 12/20 0400 B/P 109/63 12/20 0400 B/P Mean 81 12/20 0400 Temp 98.1 12/20 040 Pulse 79 12/20 0400 Resp 14 12/20 0400 O2 Delivery Nasal cannula 12/17 2049 O2 Flow Rate 2.188848 12/17 2049 Vital Signs Date Temp Pulse [...] General appearance: alert, awake, oriented, no acute distress Abdomen: Soft, ND, ATTP, Incisions i/c/d. Diagnosis, Assessment Plan Free Text A P: Ms Thompson is a 28 year-old female now POD #3 from Laparoscopic converted to open PRETTY-BSO, Marisol, and partial sigmoid resection with primary anastomosis. Patient now starting to have some return of bowel function. - ADAT soft if continues to pass flatus - Pain control - Rest of care per Dr. Min and ICU team at 0735 RPT #:[id number] END OF REPORT [id number] 16:01:00 [facility] ([facility]) Critical Care Progress Note REPORT#:[id number] REPORT STATUS: Signed DATE:12/19/18 TIME: 1601 PATIENT: STACY THOMPSON UNIT #: [id number] ROOM/BED: [address] : 88 AGE: 28 SEX: F ATTEND: Arpan Min MD ADM AUTHOR: Kristofer Ellison MD * ALL edits or amendments must be made on the electronic/computer document * Subjective Comments: Doing better, ambulated some. no bm/flatus. No more emesis. Has gas pains. did almita some clears Objective General VS/I O Last Documented: Result Date Time Pulse Ox 98 12/19 1251 B/P 141/63 12/19 1251 B/P Mean 90 12/19 1251 Pulse 94 12/19 1251 Temp 98.6 12/19 1200 Resp 19 12/19 1200 O2 Delivery Nasal cannula 12/17 2049 O2 Flow Rate 2.154689 12/17 2049 24 hour I O ending [...] ML Diatrizoate Meglum/Diatrizoate Sod 40 ML ONCE PRN PO Clindamycin Phosphate 50 ML Q8H IV Gentamicin Sulfate 400 MG Q24H IV Sodium Chloride 100 ML Lactated Ringer's 1,000 ML ASDIR IV Magnesium Hydroxide 30 ML Q8H PRN PRN PO Physical Exam General appearance: obese, alert, awake, oriented Head/Eyes: atraumatic, normocephalic, PERRL ENT: moist mucosal membranes Neck: full range of motion, non-tender, normal thyroid, short thick Cardiovascular: tachycardia, normal heart sounds, normal S1 S2, no murmur, no rub Respiratory/Chest: aerating well, clear to auscultation, symmetric expansion Abdomen: tenderness, soft, no distention, no guarding, no mass/organomegaly, no rebound, incsion cdi Extremities: moves all, normal capillary refill, normal temperature Neuro/SAMPLER AND TEST PREPARER: alert, oriented X 3, CNII-XII intact Skin: [...] (Auto) (14.3 - 34.3 %) 14.0 L [place] % (Auto) (5.1 - 10.4 %) 8.3 Eos % (Auto) (0.1 - 3.0 %) 1.1 Baso % (Auto) (0.1 - 1.0 %) 0.4 Neut # (Auto) (K/mm3) 11.5 Lymph # (Auto) (K/mm3) 2.1 [place] # (Auto) (K/mm3) 1.3 Eos # (Auto) (K/mm3) 0.16 Baso # (Auto) (K/mm3) 0.1 Immature Plt Fraction (0.0 - 10.8 %) 0.0 Microbiology: 12/17 1500 NASAL: MRSA Screen - COMP 12/17 314 URINE: Urine Culture - COMP ESCHERICHIA COLI Diagnosis, Assessment Plan Hospital course to date: Assessment Tubo-ovarian abscess with subsequent adhesions and postinflammatory changes etc. s/p hysterectomy, salpingo-oophorectomy, lysis of adhesions, bowel resection Diabetes mellitus w with hyperglycemia E. coli UTI Morbid obesity with BMI of 46 post op nausea DVT risk Recommendations and plan Continue antibiotics Follow urine cultures first ID and sensitivity Glucose control-Per endocrine DVT prophylaxis w lovenox ambulation at 1746 RPT #:[id number] END OF REPORT [id number] 09:53:00 [facility] ([facility]) Gynecology Post Prog Note REPORT#:[id number] REPORT STATUS: Signed DATE:12/19/18 TIME: 952 PATIENT: STACY THOMPSON UNIT #: [id number] ROOM/BED: [address] : 88 AGE: 28 SEX: F ATTEND: Arpan Min MD ADM AUTHOR: Arpan Min MD * ALL edits or amendments must be made on the electronic/computer document * General Post-op: day 2 Status post: PRETTY+BSO ENTEROLYSIS ADHESIOLYSIS COLON RESECTION ANSTOMOSIS Antibiotics: day 7 Subjective Patient reports: Yes: pain controlled. No: flatus/bowel movement, tolerating diet (gas pains). Objective Physical Exam VS/I O Last Documented: Result Date Time Pulse Ox 98 12/19 0645 B/P 118/62 12/19 06 B/P Mean 84 12/19 0645 Pulse 80 12/19 0645 Resp 23 12/19 0645 Temp 98.3 12/19 0400 O2 Delivery Nasal cannula 12/17 2049 O2 Flow Rate 2.882895 12/17 2049 24 hour I O ending [...] distended Site condition: dressing clean dry, dressing intact Neck: non-tender Cardiovascular: normal heart sounds Respiratory: aerating well, clear to auscultation, symmetric expansion, no distress Abdomen: non-tender, soft, [...] ML Diatrizoate Meglum/Diatrizoate Sod 40 ML ONCE PRN PO [...] (Auto) (14.3 - 34.3 %) 14.0 L [place] % (Auto) (5.1 - 10.4 %) 8.3 Eos % (Auto) (0.1 - 3.0 %) 1.1 Baso % (Auto) (0.1 - 1.0 %) 0.4 Neut # (Auto) (K/mm3) 11.5 Lymph # (Auto) (K/mm3) 2.1 [place] # (Auto) (K/mm3) 1.3 Eos # (Auto) [...] DVT prevention Triple antibiotics Daptomycin, Cleocin and Gentamycin with slow resolution of her elevated WBC On insuline scale Perhaps tomorrow transfered to the Med Surg floor at 1000 RPT #[id number] END OF REPORT [id number] 14:18:00 [facility] ([facility]) Critical Care Progress Note REPORT#:[id number] REPORT STATUS: Signed DATE:12/18/18 TIME: 1418 PATIENT: STACY THOMPSON UNIT #: [id number] ROOM/BED: [address] : 88 AGE: 28 SEX: F ATTEND: Arpan Min MD ADM AUTHOR: Kristofer Ellison MD * ALL edits or amendments must be made on the electronic/computer document * Subjective Comments: Found to have hypomagnesemia with morning labs. No other events less nauseated. About midday today had falling off of urine output around 25 cc an hour while less than half milliliters per kilogram. but when check had 100cc for prior 2 hours overall she feels better, less nausea but no flatus or bm pain is miniaml increase w walking no sob or cp still mild sore throat Objective General VS/I O Last Documented: Result Date Time Pulse Ox 99 12/18 1200 B/P 99/53 12/18 1200 B/P Mean 71.0 12/18 1200 Temp 98.0 12/18 1200 Pulse 87 12/18 1200 Resp 18 12/18 1200 O2 Delivery Nasal cannula 12/17 2049 O2 Flow Rate 2.040363 12/17 2049 24 hour I O ending [...] ML Diatrizoate Meglum/Diatrizoate Sod 40 ML ONCE PRN PO [...] Neck: full range of motion, non-tender, normal thyroid, short thick Cardiovascular: tachycardia, normal heart sounds, normal S1 S2, no murmur, no rub Respiratory/Chest: aerating well, clear to auscultation, symmetric expansion Abdomen: abnormal bowel sounds (hypoactive), tenderness, soft, incsion cdi Extremities: moves all, normal capillary refill, normal temperature Neuro/SAMPLER AND TEST PREPARER: alert, oriented X 3, CNII-XII intact Skin: abnormal color, abnormal temperature, abscess Results Findings/Data: Laboratory Tests 12/18/18 0502: [Embedded [...] (Auto) (14.3 - 34.3 %) 12.1 L [place] % (Auto) (5.1 - 10.4 %) 10.3 Eos % (Auto) (0.1 - 3.0 %) 0.0 L Baso % (Auto) (0.1 - 1.0 %) 0.3 Neut # (Auto) (K/mm3) 12.7 Lymph # (Auto) (K/mm3) 2.0 [place] # (Auto) (K/mm3) 1.7 Eos # (Auto) [...] course to date: Assessment Tubo-ovarian abscess with subsequent adhesions and postinflammatory changes etc. s/p hysterectomy, salpingo-oophorectomy, lysis of adhesions, bowel resection Diabetes mellitus w with hyperglycemia Morbid obesity with BMI of 46 post op nausea DVT risk Recommendations and plan Continue antibiotics Follow urine cultures first ID and sensitivity IV fluid bolus increase IV fluids for yellow urine output check for mechanical obstruction--done chloraseptic spray dc toradol since low uop Glucose control-Per endocrine DVT prophylaxis w lovenox Analgesia, diet and activity per surgery//QUANTITATIVE RESEARCHER service at 1512 RPT #[id number] END OF REPORT [id number] 07:59:00 [facility] ([facility]) Gynecology Post Prog Note REPORT#:[id number] REPORT STATUS: Signed DATE:12/18/18 TIME: 075 PATIENT: STACY THOMPSON UNIT #: [id number] ROOM/BED: [address] : 88 AGE: 28 SEX: F ATTEND: Arpan Min MD ADM AUTHOR: Arpan Min MD * ALL edits or amendments must be made on the electronic/computer document * General ORM Surgeries: Surgery Date and Time: 12/17/2018 0800 Primary Procedure: HYSTERECTOMY ABDOMINAL Secondary Procedures: LYSIS OF ADHESIONS PROCTOSCOPY SIGMOID RESECTION COLONOSCOPY Post-op: day 1 Status post: PRETTY+BSO ENTEROLYSIS ADHESIOLYSIS COLON RESECTION ANSTOMOSIS Antibiotics: day 3 (dAPTO, CLEOCIN GENTAMYCIN) Subjective Patient reports: Yes: ambulating, pain controlled (ICE CHIPS; NO FLATUS). No: complaints, abdominal pain, chills, fever, flatus/bowel movement, headache, nausea. Comments: PATIENT HAPPY WITH RESULTS AND PROCEDURES PERFORRMED; HER CONCERN WAS IF CONSTIPATION, OBSTINATION WILL CONTINUE. THE SURGICAL FINDINGS OF COLO-RECTAL SURGERY TEAM OF DR KIM AND ASSOCIATE WERE OF FOLDED LOW SIGMOID WITH MINIMAL LUMEN AND ALMOST TO HAVE BOWEL OBSTRUCTION. WE HOPE HER BOWEL MOVEMENTS TO BE NORMAL. HER PAIN IS LESS FIRST DAY POST OP THAN PREOP. ANXIOUS TO GET UP AND AMBULATE; LAST NIGHT WAS ABLE TO DO IT INCEPTIVE EXPIROMETRY BY [facility] TODAY TO CONNECT MALECOT TO A DRAIN; WILL ASK SURGERY NURSE TO HELP US Review of Systems Constitutional: Denies: chills, fatigue, fever, generalized weakness, lethargy, malaise. Objective Physical Exam VS/I O Last Documented: Result Date Time Pulse Ox 97 11/09 0600 B/P 113/55 11/09 0600 B/P Mean 79 12/18 599 Pulse 92 12/18 599 Resp 20 12/18 599 Temp 97.8 12/19 399 O2 Delivery Nasal cannula 12/17 2049 O2 Flow Rate 2.795196 12/17 2049 24 hour I O ending [...] distended Site condition: dressing clean dry, dressing intact HEENT: anicteric, moist mucosal membranes, normal pharynx, pupils reactive to light, sclera clear Neck: non-tender Breast: symmetrical, no discharge Cardiovascular: normal heart sounds Respiratory: aerating well, clear to auscultation, symmetric expansion, no distress Abdomen: non-tender, soft, [...] Glycopyrrolate 0 .STK-MED ONE .ROUTE (DC) Neostigmine Jackson 0 .STK-MED ONE .ROUTE (DC) Ondansetron HCl 0 .STK-MED ONE .ROUTE (DC) Esmolol HCl 0 .STK-MED ONE .ROUTE (DC) Hydromorphone HCl 0 .STK-MED ONE .ROUTE (DC) Rocuronium Jackson 5 ML .STK-MED ONE INJ (DC) Fentanyl [...] ML Diatrizoate Meglum/Diatrizoate Sod 40 ML ONCE PRN PO Clindamycin Phosphate 50 ML Q8H IV Gentamicin Sulfate 400 MG Q24H IV Sodium Chloride 100 ML Lactated Ringer's 1,000 ML ASDIR IV Acetaminophen 650 MG Q6H PRN PRN PO (DC) Magnesium Hydroxide 30 ML Q8H PRN PRN PO Lactated Ringer's 1,000 ML ASDIR IV (DC) Results Findings/Data: Laboratory Tests 12/18 0010 6055 1715 1448 Chemistry Sodium (135 - 145 [...] 4.8 gm/dL) 2.1 L Laboratory Tests 12/18 1715 Hematology WBC (6.6 - 12.1 K/mm3) [...] (Auto) (14.3 - 34.3 %) 12.1 L [place] % (Auto) (5.1 - 10.4 %) 10.3 Eos % (Auto) (0.1 - 3.0 %) 0.0 L Baso % (Auto) (0.1 - 1.0 %) 0.3 Neut # (Auto) (K/mm3) 12.7 Lymph # (Auto) (K/mm3) 2.0 [place] # (Auto) (K/mm3) 1.7 Eos # (Auto) [...] ASK INHALATION THERAPHY FOR IPPB AND PREVENT ATELECTASIS CONTINUE ANTIBIOTICS = DAPTOMYCIN, CLEOCIN GENTAMYCIN CLEAR LIQUIDS TODAY UP AND AMBULATE WITH HELP CONNECT MELICOT TO DRAINAGE AND SUCTION MAY DC JIMENEZ WHEN OK WITH DR ELLISON. at 0812 [facility] #:[id number] END OF REPORT [id number] 00:02:[id number] [address] PATIENT NAME: STACY THOMPSON ADMIT DATE: 12/15/18 ACCOUNT NO: [id number] ROOM NO: [facility] AGE: 28 SEX: F ADMITTING PHYSICIAN: Arpan Min MD ATTENDING PHYSICIAN: Arpan Min MD OPERATION DATE: 12/17/2018 PREOPERATIVE DIAGNOSES: Pelvic inflammatory disease, tubo-ovarian abscess, recurrent, failure to respond to interventional radiology drainage, at least x2, status post appendectomy and resulted in a normal appendix but an evidence of a large tubo-ovarian abscess of the right side, described to be from the pelvis all the way up to the liver. POSTOPERATIVE DIAGNOSES:SAME + SIGMOID COLON PARTIAL OBSTRUCTION; ENTEROLYSIS SIGMOID RESECTION + ANASTOMOSIS; TAHBSO; MELICOT DRAIN PROCEDURES: ABOVE PRIMARY SURGEON:ARPAN MIN MD REAL ESTATE LEASING MANAGER:TARUN CURIEL CSA; he was in front of [...] and vascular adhesions. For this reason, had asked me to ask in consultation with general surgery and warn the patient of the possibility of colostomy as well as other bowel surgery and in the informed consent, also, the patient has been aware [...] many of the consequences. The patient requested the surgery and was aware of the need of colostomy, a bowel prep, having had antibiotic triple therapy of daptomycin, Cleocin and gentamicin as well as had a mechanical prep with the use of the laxative [...] indicated procedures. The initial placement of a 5-mm trocar was midclavicular subcostal left upper quadrant with an Optiview, the long size, we then had the pneumoperitoneum, been initiated with a total of 3.5 liters of carbon dioxide and locate omental adhesions subumbilical. An intraumbilical 8-mm incision and infiltration with Marcaine, placed the trocar in this site, as well as lateral right and left approximately 10 cm at the same level, paraumbilical for the next 2 trocars of 8 mm each. With this, the laparoscope was exchanged into the left upper quadrant, intraumbilical, left lower quadrant, right upper quadrant, but in view of the extensive adhesive disease, we requested Dr. Julita Herring to perform the enterolysis. The lysis of omental adhesions went without any problem and the lysis of the adhesions that were more cohesive, vascular, and worse on the adnexa right and left, having not only the small bowel, but the colon involved, I had made the decision to then perform a midline infraumbilical incision initially to be probably increased to be supraumbilical for the completion of her surgery and the planned surgery had changed to be total abdominal hysterectomy, bilateral salpingo-oophorectomy, enterolysis and indicated procedures. The incision was performed and it was necessary to do first the hysterectomy, isolating the round ligament, dissecting the broad ligament, anterior bladder peritoneum and then finally the corpus of the uterus removed to the cervix and in place, leaving the cuff open for the Malecot drain. In the right side, sidewall and lysis of adhesions was accomplished to isolate the infundibulopelvic ligament to do retroperitoneal dissection, localization of the ureter and the removal of the right adnexa. In the left adnexa, it was involvement of the sigmoid colon, small bowel. The size was less in the left than compared to the right, but perhaps more cohesive and also insulation of the infundibulopelvic ligament was needed tracing the ureter and complete the left salpingo-oophorectomy, but founding that there was a piece of probably descending bowel colon sigmoid that was essentially ended into a blind pouch and it was ended abruptly and unable to see the rectosigmoid. Julita Herring MD, returned to the room to do the evaluation. She also was with the same question and a colonoscopy was performed. Still not able to see the site by placing air and having the pelvic cavity full of liquid. The presence of air then indicated that there was incidental cut of the lower end of the sigmoid colon. For this reason, we called for colorectal surgery and Dr. Lopez kindly attended the call. One of his partners was present, performed the evaluation, and initiated the requirement of surgical equipment and the two together [...] 5-1/2 hours and a diabetic, multiple admissions, multiple treatments with different antibiotics despite that the patient was very stable, first needed 2 units of blood transfusion and for her recovery after consultation with the machine deicer element winder, Dr. Ellison, and ICU admission. PROCEDURE IN DETAIL: The patient was placed in dorsal lithotomy position. The area was prepped and draped. The cervix grasped with a tenaculum. Progressive PATIENT NAME: STACY THOMPSON dilatation was performed up to a Hegar size 18. The uterus was sounded to approximately 12 cm. The enlargement of the uterine cavity was probably more due to the cervical length. The PROMISE was selected as the uterine manipulator with an orange catheter of 11 cm and a cup of 3.0 cm in diameter that was placed without any difficulty together with the Jimenez catheter. The attention then was passed to the abdomen where in the left upper quadrant subcostal midclavicular line is initially attempted to place the Veress needle and not successful. The pneumoperitoneum was then elected to go through the larger size Optiview 5-mm trocar,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
[2024-06-21 13:51] LABS: Absolute Basophils 0.1 K/uL (0-0.5); Absolute Eosinophils 0.1 K/uL (0-0.5); Absolute Lymphocytes (CBC) 2.7 K/uL (0.7-4.9); Absolute Monocytes 0.6 K/uL (0.1-1.3); Basophils % 0.9 % (0-1.3); Eosinophils % 1.4 % (0-4.4); Hematocrit 41.3 % (36.0-45.0); Hemoglobin 14.4 g/dL (12.0-15.0); Lymphocytes % 28.3 % (15.3-44.8); MCH 30.1 pg (27.0-35.0); MCHC 34.8 g/dL (32.0-36.0); MCV 86.6 fL (80-100); MPV 10.1 fL (7.6-11.3); Monocytes % 6.1 % (3.3-12.3); Neutrophils % 63.3 % (41.7-73.7); Platelets 239 thou/uL (152-406); RBC Red Blood Cell Count 4.78 M/uL (3.86-4.86); Red Cell Distribution Width 12.7 % (12.1-15.2)
[2024-06-21 14:14] LABS: Albumin 3.7 g/dL (3.4-5.0); Albumin/Globulin Ratio 0.9 (1.1-1.8); Anion Gap 12.1 mEq/L (5.0-15.0); Bilirubin Direct 0.2 mg/dL (0-0.2); Bilirubin Indirect, Calculated 0.6 mg/dL (0.2-0.8); Bilirubin Total 0.8 mg/dL (0.2-1.0); Globulin 4.3 g/dL (2.3-3.5); Magnesium 1.8 mg/dL (1.6-2.4); Potassium 4.1 mEq/L (3.5-5.1); Troponin High Sensitivity 8.6 pg/mL (<58.9)
[2024-06-21] MEDS ORDERED: NA CHLORIDE 0.9% 1,000 ML ONE (14:19)
[2024-06-21 15:26] LABS: Specific Gravity 1.015 (1.005-1.030)
[2024-06-21 15:27] LABS: Specific Gravity 1.015 (1.005-1.030); Urine Bacteria None Seen /HPF (<20); Urine Bilirubin NEGATIVE (Negative); Urine Blood Negative (Negative); Urine Clarity Extremely Turbid (Clear); Urine Color Light-Yellow (Yellow); Urine Culture Reflex Order NOT NEEDED; Urine Glucose 3+ (Negative); Urine Ketones NEGATIVE (Negative); Urine Microscopic Reflex YN ORDER UMIC; Urine Mucus Slight /HPF (None Seen); Urine Nitrite NEGATIVE (Negative); Urine Protein TRACE (Negative); Urine RBC <5 /HPF (None Seen); Urine Urobilinogen Normal (Normal); Urine WBC <5 /HPF (<5)
[2024-06-21 15:29] LABS: Barbiturates NEGATIVE (NEGATIVE); Benzodiazepines NEGATIVE (NEGATIVE); Cocaine NEGATIVE (NEGATIVE); METHAMPHETAM NEGATIVE (NEGATIVE); Methadone NEGATIVE (NEGATIVE); Opiates NEGATIVE (NEGATIVE); Phencyclidine NEGATIVE (NEGATIVE); THC Cannibis NEGATIVE (NEGATIVE)
[2024-06-21] MEDS ORDERED: KETOROLAC 30 MG/ML INJ ONE (15:42)
--- NOTE | 2024-06-21 15:51 | EDPHYS ---
Physician Documentation [facility] Name: Stacy Islas Age: 33 yrs Sex: Female : 1990 Arrival Date: 06/21/2024 Time: 13:26 Bed 14 Private MD: ED Physician Montana Peralta HPI: 06/21 14:11 This 33 yrs old Female presents to ER via EMS with complaints of Near Syncope, kb High Blood Sugar. 14:11 Pt is a 33 year old female who presents for near syncope. States she gets a hot feeling kb when her sugar gets high and it makes her feel like she is going to pass out. States she has been out of her insulin for a couple of months. Also reports issues with IBS for a long time, including abd pain. States she has been seen by multiple doctors for this. Denies vomiting, diarrhea today. EMS states pt checked her sugar at work, which read 350, started hyperventilating so she sat down and her coworker called 911. EMS reports BGL 270 in route. . [employer]: 13:32 LMP N/A - Hysterectomy, Not me1 Historical: - Allergies: 13:32 tazobactam; me1 13:32 Zosyn; me1 - PMHx: 13:32 Anxiety; Diabetes - IDDM; Irritable bowel syndrome; me1 - PSHx: 13:32 Appendectomy; cellulitis I\T\D; section; hysterectomy; me1 - Immunization history:: Adult Immunizations up to date. - Infectious Disease History:: Denies. - Social history:: Smoking status: Patient denies any tobacco usage or history of. ROS: 14:00 Constitutional: As per HPI kb Exam: 13:59 Constitutional: This is a well developed, well nourished patient who is awake, alert, kb and in no acute distress. Head/Face: Normocephalic, atraumatic. ENT: Moist Mucous membranes Cardiovascular: Regular rate Respiratory: Respirations even and unlabored. No increased work of breathing. Talking in full sentences Skin: Warm, dry with normal turgor. Normal color. MS/ Extremity: Pulses equal, no cyanosis. Neurovascular intact. Full, normal range of motion. Neuro: Awake and alert, GCS 15, oriented to person, place, time, and situation. 13:59 ECG was reviewed by the Attending Physician. 14:00 Abdomen/GI: Inspection: obese Bowel sounds: normal, Palpation: soft, in all quadrants, kb mild abdominal tenderness, in the right upper quadrant and left lower quadrant, Vital Signs: 13:30 BP 117 / 73; Pulse 91; Resp 18; Temp 98; Pulse Ox 99% ; Weight 104.33 kg; Height 5 ft. me1 3 in. ; Pain 6/10; 14:00 BP 110 / 78; Pulse 86; Resp 17; Pulse Ox 98% ; me1 15:00 BP 114 / 82; Pulse 83; Resp 18; Pulse Ox 98% ; me1 15:57 BP 112 / 75; Pulse 79; Resp 16; Temp 98.4; Pulse Ox 97% ; me1 13:30 Body Mass Index 40.74 (104.33 kg, 160.02 cm) me1 13:30 Pain Scale: Adult me1 MDM: 13:29 Medical Screening Exam initiated kb 15:49 Differential Diagnosis: cardiac arrhythmia, emotional response, vasovagal episode, kb Hyperglycemia. Data reviewed: vital signs, nurses notes. Management of patient was discussed with the following: Dr. Peralta. Historians other than the Patient: EMS: [facility]. Counseling: I had a detailed discussion with the patient and/or guardian regarding the historical points, exam findings, and any diagnostic results supporting the discharge/admit diagnosis, lab results, the need for outpatient follow up, a family practitioner, to return to the emergency department if symptoms worsen or persist or if there are any questions or concerns that arise at home. 06/21 13:30 Order name: Basic Metabolic Panel; Complete Time: 14:14 kb 06/21 13:30 Order name: CBC with Diff; Complete Time: 14:05 kb 06/21 13:30 Order name: Hepatic Function; Complete Time: 14:14 kb 06/21 13:30 Order name: Magnesium; Complete Time: 14:14 kb 06/21 13:30 Order name: Test, Urine; Complete Time: 15:26 kb 06/21 13:30 Order name: Troponin High Sensitivity; Complete Time: 14:14 kb 06/21 13:30 Order name: UDS; Complete Time: 15:34 kb 06/21 13:30 Order name: UA Rfx Luciano Cult if indicated; Complete Time: 15:34 kb 06/21 13:30 Order name: Cardiac monitoring; Complete Time: 13:53 kb 06/21 13:30 Order name: EKG - Nurse/Tech; Complete Time: 13:53 kb 06/21 13:30 Order name: IV Saline Lock; Complete Time: 13:43 kb 06/21 13:30 Order name: Labs collected and sent; Complete Time: 13:43 kb 06/21 13:30 Order name: NPO; Complete Time: 13:35 kb 06/21 13:30 Order name: O2 Per Protocol; Complete Time: 13:35 kb 06/21 13:30 Order name: O2 Sat Monitoring; Complete Time: 13:35 kb EC:59 Rate is 86 beats/min. Rhythm is regular. Right axis deviation noted. WI interval is kb normal at 150 msec. QRS interval is normal at 88 msec. QT interval is normal at 433 msec. Administered Medications: 14:28 Drug: NS 0.9% IV 1000 ml IV at 1000 ml once; to be given as a bolus over 60 minutes me1 Route: IV; Rate: 1000 ml; Site: left antecubital; 15:54 Follow up: Response: No adverse reaction; IV Status: Completed infusion; IV Intake: me1 1000ml 15:51 Drug: Ketorolac IVP 15 mg IVP once Route: IVP; Site: right antecubital; me1 15:58 Follow up: Response: No adverse reaction; Pain is decreased me1 Disposition: 16:30 Co-signature as Attending Physician, [place] Peralta MD I reviewed the patient's care rn provided by the Advanced Practice Provider and agree with the diagnosis and treatment plan. Disposition Summary: 06/21/24 15:50 Discharge Ordered Notes: Location: Home kb Condition: Stable kb Diagnosis - Syncope Near kb - Hyperglycemia, unspecified kb Followup: kb - With: Emergency Department - When: As needed - Reason: Worsening of condition Followup: kb - With: Private Physician - When: 2 - 3 days - Reason: Recheck today's complaints, Continuance of care, Re-evaluation by your physician Discharge Instructions: - Discharge Summary Sheet kb - Near-Syncope, Wgpn-mj-Katc kb - Hyperglycemia, Kezd-jt-Twjm kb Forms: - Medication Reconciliation Form kb - Antibiotic Education kb - Prescription Opioid Use kb - Patient Portal Instructions kb - Leadership Thank You Letter kb Signatures: Dispatcher [employer] Puja Schrader FNP-C LINEMAN-Ckb [place] Peralta MD MD rn Meryl Rider, JEFF RN me1 Corrections: (The following items were deleted from the chart) 13: 13:31 BASIC METABOLIC PANEL+C.LAB.BRZ ordered. EDMS EDMS 13:31 13:31 CBC+H.LAB.BRZ ordered. EDMS EDMS 13:31 13:31 HEPATIC FUNCTION+C.LAB.BRZ ordered. EDMS EDMS 13: 13:31 MAGNESIUM+C.LAB.BRZ ordered. EDMS EDMS 13:31 13:31 Test, Urine+UC.LAB.BRZ ordered. EDMS EDMS 13: 13:31 Troponin High Sensitivity+C.LAB.BRZ ordered. EDMS EDMS 13: 13:31 URINE DRUG SCREEN+UC.LAB.BRZ ordered. EDMS EDMS 13: 13:31 UA Rfx Luciano Cult if indicated+U.LAB.BRZ ordered. EDMS EDMS 14:34 14:11 Pt is a 33 year old female who presents for near syncope. States she gets a hot kb feeling when her sugar gets high and it makes her feel like she is going to pass out. States she has been out of her insulin for a couple of months. Also reports issues with IBS. Denies vomiting, diarrhea today. EMS states pt checked her sugar at work, which read 350, started hyperventilating so she sat down and her coworker called 911. EMS reports BGL 270 in route. . kb
--- NOTE | 2024-06-21 15:51 | ER ---
Nurse's Notes [facility] Name: Stacy Islas Age: 33 yrs Sex: Female : 1990 Arrival Date: 06/21/2024 Time: 13:26 Bed 14 Private MD: Diagnosis: Syncope Near;Hyperglycemia, unspecified Presentation: 06/21 13:30 Chief complaint: EMS states: toned out for near syncope. Patient checked her blood me1 sugar while at work and saw it was high and started hyperventilating and almost passed out. On arrival patient c/o RIOS 07/19. BGL 270 for EMS. Coronavirus screen: Vaccine status: Patient reports being unvaccinated. Ebola Screen: No symptoms or risks identified at this time. Initial Sepsis Screen: Does the patient meet any 2 criteria? HR > 90 bpm. Does the patient have a suspected source of infection? No. Patient's initial sepsis screen is negative. Risk Assessment: Do you want to hurt yourself or someone else? Patient reports no desire to harm self or others. Onset of symptoms was June 21, 2024 at 12:45. 13:30 Method Of Arrival: EMS: [facility] wy1 13:30 Acuity: VENTURA 3 me1 Triage Assessment: 13:32 General: Appears in no apparent distress. obese, well groomed, well developed, Behavior me1 is cooperative, appropriate for age, quiet. Pain: Complains of pain in head Pain does not radiate. Pain currently is 6 out of 10 on a pain scale. Quality of pain is described as aching, Pain began suddenly, Is continuous. EENT: No signs and/or symptoms were reported regarding the EENT system. Neuro: Level of Consciousness is awake, alert, obeys commands, Oriented to person, place, time, situation, Appropriate for age. Cardiovascular: Patient's skin is warm and dry. Respiratory: Airway is patent Respiratory effort is even, unlabored, Respiratory pattern is regular, symmetrical. GI: No signs and/or symptoms were reported involving the gastrointestinal system. : No signs and/or symptoms were reported regarding the genitourinary system. Derm: Skin is intact, is healthy with good turgor, Skin is pink, warm \T\ dry. Musculoskeletal: No signs and/or symptoms reported regarding the musculoskeletal system. 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 - Infectious Disease History:: Denies. - Social history:: Smoking status: Patient denies any tobacco usage or history of. Screenin:34 [facility] ED Fall Risk Assessment (Adult) History of falling in the last 3 months, me1 including since admission No falls in past 3 months (0 pts) Confusion or Disorientation No (0 pts) Intoxicated or Sedated No (0 pts) Impaired Gait No (0 pts) Mobility Assist Device Used No (0 pt) Altered Elimination No (0 pt) Score/Fall Risk Level 0 - 2 = Low Risk Maintained a safe environment, Provided non-skid footwear, Hourly rounding (assess needs \T\ fall precautionary measures) done. Abuse screen: Denies threats or abuse. Nutritional screening: No deficits noted. Tuberculosis screening: No symptoms or risk factors identified. Assessment: 13:34 General: See triage assessment. me1 Vital Signs: 13:30 BP 117 / 73; Pulse 91; Resp 18; Temp 98; Pulse Ox 99% ; Weight 104.33 kg; Height 5 ft. me1 3 in. ; Pain 6/10; 14:00 BP 110 / 78; Pulse 86; Resp 17; Pulse Ox 98% ; me1 15:00 BP 114 / 82; Pulse 83; Resp 18; Pulse Ox 98% ; me1 15:57 BP 112 / 75; Pulse 79; Resp 16; Temp 98.4; Pulse Ox 97% ; me1 13:30 Body Mass Index 40.74 (104.33 kg, 160.02 cm) me1 13:30 Pain Scale: Adult me1 ED Course: 13:29 Patient arrived in ED. kb 13:29 [facility] Valencia [facility]C [facility] kb 13:29 [place] Peralta MD is Attending Physician. kb 13:29 Meryl Rider, JEFF is Primary Nurse. me1 13:32 Triage completed. me1 13:32 Arm band placed on Patient placed in an exam room. me1 13:34 Patient has correct armband on for positive identification. Bed in low position. Call me1 light in reach. Side rails up X 1. Provided Education on: POC. Verbalized understanding.. Client placed on continuous cardiac and pulse oximetry monitoring. NIBP monitoring applied. radiation monitor on. Pulse ox on. NIBP on. 13:34 No provider procedures requiring assistance completed. me1 13:43 Basic Metabolic Panel Sent. me1 13:43 CBC with Diff Sent. me1 13:43 Hepatic Function Sent. me1 13:43 Magnesium Sent. me1 13:43 Troponin High Sensitivity Sent. me1 13:43 Initial lab(s) drawn, by [facility], sent to lab. Inserted saline lock: 22 gauge in right me1 antecubital area, using aseptic technique. 13:53 EKG done, by ED staff, reviewed by Puja KILGORE. me1 16:04 IV discontinued, intact, bleeding controlled, No redness/swelling at site. Pressure me1 dressing applied. Administered Medications: 14:28 Drug: NS 0.9% IV 1000 ml IV at 1000 ml once; to be given as a bolus over 60 minutes me1 Route: IV; Rate: 1000 ml; Site: left antecubital; 15:54 Follow up: Response: No adverse reaction; IV Status: Completed infusion; IV Intake: me1 1000ml 15:51 Drug: Ketorolac IVP 15 mg IVP once Route: IVP; Site: right antecubital; me1 15:58 Follow up: Response: No adverse reaction; Pain is decreased me1 Medication: 13:34 VIS not applicable for this client. me1 Intake: 15:54 IV: 1000ml; Total: 1000ml. me1 Outcome: 15:50 Discharge ordered by . berenice 16:04 Discharged to home ambulatory, me1 16:04 Condition: stable 16:04 Discharge instructions given to patient, Instructed on discharge instructions, follow up and referral plans. Demonstrated understanding of instructions, follow-up care, 16:05 Patient left the ED. me1 Signatures: Puja Valencia FNP-C [facility]-CkMeryl Loco, JEFF RN me1
[2024-06-21 16:32] VITALS: BP 112/75; TEMP 98.4; O2SAT 97
--- NOTE | 2024-06-22 12:21 | EKG ---
Test Date: 2024-06-21 Test Time: 13:50:16 [employer] [address] Driver: MEASUREMENT RESULTS: Intervals: Rate: 86 TX: 150 QRSD: 88 QT: 362 QTc: 433 [place]: P: 127 TX: 150 QRS: 109 T: 109 INTERPRETIVE STATEMENTS: Suspect arm lead reversal, interpretation assumes no reversal Unusual P axis, possible ectopic atrial rhythm Rightward axis Nonspecific T wave abnormality Abnormal ECG Compared to ECG 04/24/2021 07:22:04 Right-axis deviation now present T-wave abnormality now present Sinus tachycardia no longer present ST (T wave) deviation no longer present Electronically Signed On 06-22-24 12:19:29 CDT by Tom Mcclelland
== END 2024-06-21 16:05 | disposition home or self-care (01) ==
LOC: ER 13:26
DX: E11.65 Type 2 diabetes mellitus with hyperglycemia (principal)
CPT/HCPCS: 96361; 93005; 85025; 81001; 80048; 36415; 83735; 81025; 80076; 84484; 80307; 96374; 99285; J7030